=== PATIENT | female | born 1955 | race Two or more races ===

== ENCOUNTER 2020-03-05 16:00 | Emergency (ER) | payer OTHER, SELFPAY ==
--- NOTE | 2020-03-05 17:14 | ED_ITS ---
HPI - Abdominal Pain General Chief Complaint: Abdominal Pain Stated Complaint: abd pain Time Seen by Provider: 03/05/20 17:14 Source: patient Mode of arrival: ambulatory Limitations: language barrier History of Present Illness HPI narrative: Epigastric pain with vomiting started this morning. Prior history for cholecystectomy and hernia repair. patient has had kidney stone surgery. MD elicited complaint: abdominal pain Pertinent past history: gastritis and kidney stones Onset (ago): day(s) Pain Consistency: intermittent Location: epigastric Severity: moderate Associated symptoms: nausea and vomiting Related Data Previous Rx's Medication Instructions Recorded pantoprazole [Protonix] 40 mg PO DAILY #20 tab 03/05/20 Allergies Allergy/AdvReac Type Severity Reaction Status Date / Time egg Allergy Abdominal Verified 03/05/20 17:27 Pain Review of Systems Constitutional: Reports no additional constitutional complaints Eyes: Reports no additional eye complaints Denies dizziness Cardiovascular: Reports no additional cardiovascular complaints Respiratory: Reports as per HPI Gastrointestinal: Reports no additional gastrointestinal complaints Genitourinary: Reports no additional female genitourinary complaints Musculoskeletal: Reports no additional musculoskeletal complaints Skin/Breast: Denies rash Reports system reviewed and no additional complaints, except as documented, Denies dizziness and Denies Sensory deficit (Neuro) Psychiatric: Denies anxiety Physical Exam Vital Signs: Vital Signs: Last Vital Signs Temp 98.2 F 03/05/20 17:18 Pulse 75 03/05/20 17:18 Resp 18 03/05/20 17:18 BP 136/64 03/05/20 17:18 Pulse Ox 98 03/05/20 17:18 Body Mass Index 43.1 Const: Nutritional Appearance: obese Orientation/consciousness: oriented to person and patient oriented x3 Limitations: no limitations HENMT: Head: Yes normal to inspection Ears: external ears normal General nose exam: Normal external nose present Mouth: Normal oral and palatal mucosa present and oropharynx normal Throat: Yes posterior oropharynx normal Eyes: General: appearance normal, both eyes and all related structures Neck: Other: supple Neck: Yes normal visual inspection Chest: Chest palpation & inspection: normal inspection of the chest Resp: Auscultation: clear to auscultation bilaterally Cardio: Jugular venous distension: no JVD Rate: regular rate Rhythm: regular rhythm Heart sounds: S1 normal heart sound present and S2 normal heart sound present GI: Other: obese abdomen, with cholecystectomy scar and hernia repair scar, ventral hernia Palpation (GI): Soft to palpation, nontender and No hepa tosplenomegaly present Auscultation: normal bowel sounds : General: Yes no CVA tenderness Back/Spine/Pelvis: Back: no CVA tenderness Skin: General skin exam: no rashes or lesions noted Neuro: General: oriented to person and patient oriented x3 Cranial nerves: Yes CN's II-XII intact bilaterally Motor exam (neuro): 5/5 motor strength present throughout Sensory Exam: No Sensory deficit (Neuro) Extrem: General: Yes normal to inspection Psych: Appearance: grossly normal Course Course Course Narrative: Patient with negative xray for obstruction, labs and WBC normal. Impression is chronic abominal pain likely gastritis will dc home MDM - Abdominal Pain Differential Diagnosis Differential diagnosis: Likely abdominal pain, gastritis, pancreatitis, peptic ulcer disease and small bowel obstruction Lab Data Result diagrams: 03/05/20 17:38 03/05/20 17:38 Labs: Lab Results 03/05/20 03/05/20 Range/Units 17:38 17:38 WBC 10.3 (4.8-10.8) X10*3/uL RBC 4.10 L (4.20-5.50) X10*6/uL Hgb 12.6 (12.0-16.0) g/dl Hct 38.1 (37-47) % MCV 92.9 (80-98) fL MCH 30.7 (27.0-33.0) pg MCHC 33.1 (31.0-35.0) g/dl RDW 12.2 (11.0-16.0) % Plt Count TNP MPV Not Reportable Immature Gran % (Auto) 0.3 (0.0-0.4) % Neut % (Auto) 70.6 (45-73) % Lymph % (Auto) 21.1 (20-40) % [place] % (Auto) 5.8 (2-11) % Eos % (Auto) 1.5 (0-4) % Baso % (Auto) 0.7 (0-2) % Lymph # (Auto) 2.2 (1.2-4.9) X10*3/uL [place] # (Auto) 0.6 (0.1-1.2) X10*3/uL Eos # (Auto) 0.2 (0.0-0.4) X10*3/uL Baso # (Auto) 0.1 (0.0-0.2) X10*3/uL Abs Immat Gran (auto) 0.03 (0.00-0.03) X10*3/uL Absolute Neuts (auto) 7.3 (2.0-8.3) X10*3/uL Absolute Nucleated RBC 0.000 (0.0-0.012) X10*3/uL Nucleated RBC % (auto) 0.0 (0.0-0.2) /100WBC Smear Tech's Comments VERIFIED Sodium 136 (135-145) mmol/L Potassium 4.8 (3.3-5.1) mmol/l Chloride 96 (96-108) mmol/L Carbon Dioxide 31 H (22-29) mmol/L Anion Gap 14 (12-20) BUN 20 H (9-16) mg/dL Creatinine 1.05 (0.5-1.4) mg/dL Estim Creat Clear Calc 63.1 Estimated GFR 53 Random Glucose 292 H (60-115) mg/dL Calcium 9.3 (8.4-10.2) mg/dL Total Bilirubin 0.3 (0.0-1.0) mg/dL Direct Bilirubin < 0.2 (0.0-0.5) mg/dL AST 17 (5-31) U/L ALT 12 (0-31) U/L Alkaline Phosphatase 119 H (39-117) U/L Total Protein 7.2 (6.5-8.0) g/dL Albumin 3.8 (3.5-5.0) g/dL Lipase 27 (8-78) U/L Discharge Plan Discharge Clinical Impression: Gastritis Qualifiers: Gastritis type: unspecified gastritis Chronicity: chronic Gastritis bleeding: without bleeding Qualified Code(s): K29.50 - Unspecified chronic gastritis without bleeding Patient Disposition: Home, Self-Care Instructions: Gastritis (ED) Prescriptions: New pantoprazole [Protonix] 40 mg tablet,delayed release (DR/EC) 40 mg PO DAILY Qty: 20 RF: 0 Referrals: Jennifer Rico MD [Primary Care Provider] - 2 days [facility] Past Medical History Medical History Brain tumor Cholecystectomy planned Depression Diabetes Gastritis Kidney stone Surgical History H/O hernia repair Social History Social History Advance Directives: No Advance Directives Information Provided: Yes
[2020-03-05 17:18] VITALS: BP 136/64; PULSE 75; RESP 18; TEMP 36.8; O2SAT 98; BMI 43.1
[2020-03-05] MEDS: Pantoprazole Sodium 40 MG/10 ML VIAL IVPUSH (17:38)
[2020-03-05] MEDS: Lidocaine HCl Viscous 2 % 15 ML SOLUTION MUCOUS MEM (17:38)
[2020-03-05] MEDS: PHENobarb/Hyoscy/Atropine/Scop 10 ML ELIXIR PO (17:39)
[2020-03-05] MEDS: ondansetron HCL 4 MG/2 ML VIAL IVPUSH (17:39)
[2020-03-05] MEDS: Magnesium Hydrox/Alum Hydrox 30 ML ORAL.SUSP PO (17:39)
[2020-03-05 17:52] LABS: Eosinophils Absolute Auto 0.2 X10*3/uL (0.0-0.4); Eosinophils Percent Auto 1.5 % (0-4); Imm Gran Abs Auto 0.03 X10*3/uL (0.00-0.03); Imm Gran Pct Auto 0.3 % (0.0-0.4); MANUAL DIFF FLAG SCAN; Monocytes Absolute Auto 0.6 X10*3/uL (0.1-1.2); Monocytes Percent Auto 5.8 % (2-11); Red Cell Distribution Width 12.2 % (11.0-16.0); SCAN SMEAR FLAG 1
[2020-03-05 17:54] LABS: Basophils Absolute Auto 0.1 X10*3/uL (0.0-0.2); Basophils Percent Auto 0.7 % (0-2); Hematocrit 38.1 % (37-47); Hemoglobin 12.6 g/dl (12.0-16.0); Lymphocytes Absolute Auto 2.2 X10*3/uL (1.2-4.9); Lymphocytes Percent Auto 21.1 % (20-40); Mean Corpuscular HGB Conc 33.1 g/dl (31.0-35.0); Mean Corpuscular Hemoglobin 30.7 pg (27.0-33.0); Mean Corpuscular Volume 92.9 fL (80-98); Neutrophils Absolute Auto 7.3 X10*3/uL (2.0-8.3); Neutrophils Percent Auto 70.6 % (45-73); PLT CLUMP 1
[2020-03-05 17:56] LABS: PLT ABN DIST 1
[2020-03-05 18:00] VITALS: BP 136/74; PULSE 70; RESP 17; TEMP 37; O2SAT 99
[2020-03-05 18:10] LABS: White Blood Count 10.3 X10*3/uL (4.8-10.8)
[2020-03-05 18:11] LABS: SLIDE REVIEW VERIFIED
[2020-03-05 18:14] LABS: Alanine Aminotransferase 12 U/L (0-31); Albumin Level 3.8 g/dL (3.5-5.0); Alkaline Phosphatase 119 U/L (39-117); Anion Gap 14 (12-20); Aspartate Amino Transferase 17 U/L (5-31); Bilirubin Direct < 0.2 mg/dL (0.0-0.5); Bilirubin Total 0.3 mg/dL (0.0-1.0); Blood Urea Nitrogen 20 mg/dL (9-16); Calcium 9.3 mg/dL (8.4-10.2); Carbon Dioxide 31 mmol/L (22-29); Chloride 96 mmol/L (96-108); Creatinine Clr Calc Pharmacy 63.1; Estimated Glomerular Filt Rate 53; Glucose Random 292 mg/dL (60-115); Lipase 27 U/L (8-78); Potassium 4.8 mmol/l (3.3-5.1); Sodium 136 mmol/L (135-145); Total Protein 7.2 g/dL (6.5-8.0)
--- NOTE | 2020-03-05 18:35 | XR_ITS ---
EXAMINATION: XR ABDOMEN COMPLETE CLINICAL INDICATION: Bowel obstruction. COMPARISON: CT scan abdomen pelvis 10/13/2018 TECHNIQUE: 2 views of the abdomen. FINDINGS: The bowel gas pattern is normal with no evidence of ileus or obstruction. No abnormal bowel dilatation. Small volume of scattered stool throughout the colon. There are at least 3 rounded calcifications each measuring about 1 cm of the right side of the abdomen consistent with renal stones. The bones are unremarkable. XR/XR abdomen min 2V IMPRESSION: 1. Nonobstructive bowel pattern. 2. Right renal calculi.
== END 2020-03-05 19:49 | disposition home or self-care (01) ==
PROVIDERS: Emergency Provider Emergency Medicine; PCP Internal Medicine
DX: K29.50 Unspecified chronic gastritis without bleeding (principal); R10.13 Epigastric pain
CPT/HCPCS: 36415; 74019; 80048; 80076; 83690; 85025; 96374; 96375; 99283; 99284; J2405

== ENCOUNTER 2020-03-08 00:57 | Emergency (ER) | payer OTHER, SELFPAY ==
--- NOTE | 2020-03-08 | ECG_ITS ---
Test Reason : CHEST PAIN Blood Pressure : / mmHG Vent. Rate : 078 BPM Atrial Rate : 078 BPM P-R Int : 154 ms QRS Dur : 094 ms QT Int : 384 ms P-R-T Axes : 011 -04 024 degrees QTc Int : 437 ms Normal sinus rhythm Minimal voltage criteria for LVH, may be normal variant Borderline ECG When compared with ECG of 10-MAY-2019 19:17, No significant change was found Referred By: Amanda Simmons Electronically Signed By:Eduard Reyes
[2020-03-08 01:10] VITALS: BP 125/76; PULSE 81; RESP 22; TEMP 36.6; O2SAT 99; BMI 43.2
--- NOTE | 2020-03-08 01:16 | ED.CHESTPAIN ---
HPI - Chest Pain General Chief Complaint: Chest Pain Stated Complaint: chest pain,sob Time Seen by Provider: 03/08/20 01:10 Source: patient, old records reviewed and owner professional engineer Mode of arrival: ambulatory Limitations: no limitations History of Present Illness HPI narrative: 64 yo female with hx of gastritis, HTN, HPL, diabetes, s/p hernia and GB repair here with upper abdominal pain n/v radiates up to chest and feels short of breath, has had the abdominal pain x a few days and tonight started with the chest pain x 2 hours, no BM today and did not pass gas, seen here on 03/05 for abdominal pain XR abdomen non obs bowel gas pattern, of note triage was incorrect patient has not had a stroke (this was confirmed with owner professional engineer). MD complaint: chest pain and other (abdominal pain) Onset (ago): day(s) (few days ago abdominal pain, chest pain x 2 hours) Timing of current episode: constant Prior episodes: Yes Onset: during rest Pain location: substernal Pain radiation: none Severity: moderate Quality: aching Relieving factors: nothing Exacerbating factors: nothing Context: recent illness Associated symptoms: nausea, vomiting and other (constipation) Treatment prior to arrival: none Related Data Previous Rx's Medication Instructions Recorded pantoprazole [Protonix] 40 mg PO DAILY #20 tab 03/05/20 dicyclomine 20 mg PO TID PRN #30 tab 03/08/20 ondansetron 4 mg PO Q8H PRN #20 tab 03/08/20 Allergies Allergy/AdvReac Type Severity Reaction Status Date / Time egg Allergy Abdominal Verified 03/08/20 01:14 Pain Review of Systems Review of Systems: Constitutional : No Weight loss, No Fever, No Chills ENT/Mouth : No sore throat, No Rhinorrhea Eyes: No Swelling, No Redness Cardiovascular : pos Chest Pain, pos SOB, NoEdema Respiratory : No Cough, No Sputum, No Wheezing Gastrointestinal : Positive Nausea, Positive Vomiting, no Diarrhea, positive abdominal Pain, No Hematochezia, No Melena, pos constipation Genitourinary : No Dysuria, No Urinary Frequency, No Hematuria, No Urgency Musculoskeletal : No joint pain, No Myalgias, No Joint Swelling Skin : No Skin Lesions, No rash Neuro : No Weakness, No Numbness, No Dizziness, No Headache Psych : No Anxiety/Panic, No Depression Heme/Lymph: No Bruising, No Lymphadenopathy Endocrine : No Polyuria, No Polydipsia All other systems reviewed and are negative. [facility] Past Medical History Attestation statement: The following information was validated with the patient. Source: old records reviewed Medical History (Updated 03/08/20 @ 04:52 by Amanda Simmons DO) Brain tumor Cholecystectomy planned Depression Diabetes Gastritis HTN (hypertension) Kidney stone Surgical History (Updated 03/08/20 @ 01:32 by Amanda Simmons DO) H/O hernia repair History of cholecystectomy Social History Social History (Updated 03/08/20 @ 01:18 by Amanda Simmons DO) Smoking Status: Never smoker Use of substances other than those prescribed or required for medical reasons: No Advance Directives: No Advance Directives Information Provided: No Physical Exam Vital Signs: Vital Signs: Last Vital Signs Temp 97.8 F 03/08/20 03:54 Pulse 78 03/08/20 03:54 Resp 13 03/08/20 03:54 BP 116/54 L 03/08/20 03:54 Pulse Ox 99 03/08/20 03:54 Body Mass Index 43.2 Appearance: Alert. Oriented X3. No acute distress. Eyes: Pupils equal, round and reactive to light. ENT: Pharynx normal. Neck: Normal inspection. Neck supple. CVS: Normal heart rate and rhythm. Pulses normal. Respiratory: No respiratory distress. Breath sounds normal. Abdomen: Soft and distended, hernia noted in midline unable to reduce (the patient states it is always out and not able to be reduced) mild ttp, moderate epigastric ttp, no rebound or guarding Skin: Skin warm and dry. Normal skin color. Normal skin turgor. Extremities: No lower extremity edema. No calf ttp Neuro: Oriented X 3. No motor deficit. No sensory deficit. Course Course Course Narrative: CT scan no bowel obstruction, the patient complains of upper abdominal pain again will try GI cocktail, she is rubbing her hernia site patient feels much better, has been sleeping, EKG nonischemic 2 flat troponins, stable for DC at this time MDM - Chest Pain MDM Narrative Medical decision making narrative: 64 you female with HTN, HPL, DM hx of GB removal and hernia repair has had abdominal pain for a few days with recent ED visits now notes no flatus and constipation, had n/v, tonight 2 hours prior to arrival has chest pain thinks it is radiating from her abdomen, she has no signs of DVT/not pleuritic/no hypoxia to suggest PE, will need troponin x 2, EKG, CXR, CT scan of abdomen to evaluate for bowel obstruction, IV morphine for pain, dispo per results and findings. Lab Data Result diagrams: 03/08/20 01:36 03/08/20 01:36 Labs: Lab Results 03/08/20 03/08/20 03/08/20 Range/Units 01:36 01:36 01:36 WBC 9.8 (4.8-10.8) X10*3/uL RBC 3.95 L (4.20-5.50) X10*6/uL Hgb 12.2 (12.0-16.0) g/dl Hct 35.6 L (37-47) % MCV 90.1 (80-98) fL MCH 30.9 (27.0-33.0) pg MCHC 34.3 (31.0-35.0) g/dl RDW 11.8 (11.0-16.0) % Plt Count Not Reportable MPV Not Reportable Immature Gran % (Auto) 0.5 H (0.0-0.4) % Neut % (Auto) 67.1 (45-73) % Lymph % (Auto) 24.3 (20-40) % Cloud % (Auto) 6.0 (2-11) % Eos % (Auto) 1.5 (0-4) % Baso % (Auto) 0.6 (0-2) % Lymph # (Auto) 2.4 (1.2-4.9) X10*3/uL [place] # (Auto) 0.6 (0.1-1.2) X10*3/uL Eos # (Auto) 0.2 (0.0-0.4) X10*3/uL Baso # (Auto) 0.1 (0.0-0.2) X10*3/uL Abs Immat Gran (auto) 0.05 H (0.00-0.03) X10*3/uL Absolute Neuts (auto) 6.6 (2.0-8.3) X10*3/uL Absolute Nucleated RBC 0.000 (0.0-0.012) X10*3/uL Nucleated RBC % (auto) 0.0 (0.0-0.2) /100WBC Smear Tech's Comments VERIFIED PT 11.3 (10.8-13.0) SEC INR 1.0 (0.9-1.1) APTT 34.0 (24.1-38.0) SEC Sodium 137 (135-145) mmol/L Potassium 4.5 (3.3-5.1) mmol/l Chloride 97 (96-108) mmol/L Carbon Dioxide 30 H (22-29) mmol/L Anion Gap 15 (12-20) BUN 23 H (9-16) mg/dL Creatinine 1.15 (0.5-1.4) mg/dL Estim Creat Clear Calc 57.6 Estimated GFR 48 Random Glucose 290 H (60-115) mg/dL Calcium 9.4 (8.4-10.2) mg/dL Magnesium 1.8 (1.6-2.6) mg/dL Total Bilirubin 0.2 (0.0-1.0) mg/dL Direct Bilirubin < 0.2 (0.0-0.5) mg/dL AST 10 D (5-31) U/L ALT 11 (0-31) U/L Alkaline Phosphatase 107 (39-117) U/L Troponin I High Sens (<3.5-17.0) ng/L B-Natriuretic Peptide (<100) pg/mL Total Protein 6.8 (6.5-8.0) g/dL Albumin 3.5 (3.5-5.0) g/dL Lipase 43 (8-78) U/L COVID-19 ([facility]IE) (Negative) COVID-19 Clin Com 03/08/20 03/08/20 03/08/20 Range/Units 01:36 01:36 04:17 WBC (4.8-10.8) X10*3/uL RBC (4.20-5.50) X10*6/uL Hgb (12.0-16.0) g/dl Hct (37-47) % MCV (80-98) fL MCH (27.0-33.0) pg MCHC (31.0-35.0) g/dl RDW (11.0-16.0) % Plt Count MPV Immature Gran % (Auto) (0.0-0.4) % Neut % (Auto) (45-73) % Lymph % (Auto) (20-40) % Cloud % (Auto) (2-11) % Eos % (Auto) (0-4) % Baso % (Auto) (0-2) % Lymph # (Auto) (1.2-4.9) X10*3/uL Cloud # (Auto) (0.1-1.2) X10*3/uL Eos # (Auto) (0.0-0.4) X10*3/uL Baso # (Auto) (0.0-0.2) X10*3/uL Abs Immat Gran (auto) (0.00-0.03) X10*3/uL Absolute Neuts (auto) (2.0-8.3) X10*3/uL Absolute Nucleated RBC (0.0-0.012) X10*3/uL Nucleated RBC % (auto) (0.0-0.2) /100WBC Smear Tech's Comments PT (10.8-13.0) SEC INR (0.9-1.1) APTT (24.1-38.0) SEC Sodium (135-145) mmol/L Potassium (3.3-5.1) mmol/l Chloride (96-108) mmol/L Carbon Dioxide (22-29) mmol/L Anion Gap (12-20) BUN (9-16) mg/dL Creatinine (0.5-1.4) mg/dL Estim Creat Clear Calc Estimated GFR Random Glucose (60-115) mg/dL Calcium (8.4-10.2) mg/dL Magnesium (1.6-2.6) mg/dL Total Bilirubin (0.0-1.0) mg/dL Direct Bilirubin (0.0-0.5) mg/dL AST (5-31) U/L ALT (0-31) U/L Alkaline Phosphatase (39-117) U/L Troponin I High Sens 6.6 6.9 (<3.5-17.0) ng/L B-Natriuretic Peptide 27 (<100) pg/mL Total Protein (6.5-8.0) g/dL Albumin (3.5-5.0) g/dL Lipase (8-78) U/L COVID-19 ([facility]) Negative (Negative) COVID-19 Clin Com See Note ECG Data ECG #1: Attestation: I personally reviewed and interpreted this ECG as follows: ECG interpretation date: 03/08/20 ECG interpretation time: 01:16 Interpretation: Rate: 78 Rhythm: NSR Ulysses: left, LVH Normal P waves. Normal COCO. Normal QRS complex. ST T wave : normal, no MARLEN qTC: normal prior studies: no acute ischemia The study has been interpreted contemporaneously by me. . Discharge Plan Discharge Clinical Impression: Atypical chest pain Ventral hernia Qualifiers: Obstruction and gangrene presence: without obstruction or gangrene Qualified Code(s): K43.9 - Ventral hernia without obstruction or gangrene Patient Disposition: Home, Self-Care Instructions: Chest Pain (ED), Ventral Hernia (ED) Additional Instructions: return to ED for any worsening symptoms or concerns Prescriptions: New ondansetron 4 mg tablet,disintegrating 4 mg PO Q8H PRN (Reason: nausea and vomiting) Qty: 20 RF: 0 dicyclomine 20 mg tablet 20 mg PO TID PRN (Reason: abdominal discomfort) Qty: 30 RF: 0 No Action pantoprazole [Protonix] 40 mg tablet,delayed release (DR/EC) 40 mg PO DAILY Qty: 20 RF: 0 Referrals: Jennifer Rico MD [Primary Care Provider] - 2 days Print Language: [place]
--- NOTE | 2020-03-08 01:20 | XR_ITS ---
EXAMINATION: XR CHEST CLINICAL INFORMATION: Chest pain COMPARISON: 02/15/2019 TECHNIQUE: Frontal view of the chest was obtained. FINDINGS: Lung volumes are symmetric. No focal consolidation is seen. No evidence of pneumothorax, pleural effusion, or pulmonary edema. The cardiomediastinal contour is unremarkable. No acute osseous findings are seen. XR/XR chest 1V IMPRESSION: No acute cardiopulmonary findings.
--- NOTE | 2020-03-08 01:27 | CT_ITS ---
EXAMINATION: CT ABDOMEN AND PELVIS WITH CONTRAST CLINICAL INFORMATION: Pain, evaluate for bowel obstruction COMPARISON: 10/13/2018 TECHNIQUE: Multidetector volumetric images were obtained from the superior aspect of the liver through the pubic symphysis following administration 85 mL of Omnipaque 350 intravenous contrast. Sagittal and coronal reformatted images were obtained on the technologist's workstation. Oral contrast: No This CT examination was performed using dose optimization techniques as appropriate, variously including the following: *Automated exposure control *Adjustment of mA and/or kV according to patient size (this includes techniques or standardized protocols for targeted exams where dose is matched to indication/reason for exam; i.e. extremities or head) *Use of iterative reconstruction technique DLP: 953 mGy-cm FINDINGS: LUNG BASES: Stable 4 mm right lung nodule, statistically likely benign. LIVER, GALLBLADDER, AND BILIARY TREE: The liver is normal in size, shape, and attenuation. No focal hepatic lesion or biliary ductal dilatation is present. Patient is status post cholecystectomy. PANCREAS: Unremarkable. SPLEEN: Unremarkable. ADRENAL GLANDS: Unremarkable. KIDNEYS AND URETERS: No hydronephrosis or obstructing calculus bilaterally. There are several scattered calculi throughout the right kidney measuring up to approximately 1.3 cm. Tiny calculus noted in the mid left kidney. Renal cortical thinning is noted, right-sided greater than left. BLADDER: Unremarkable. GASTROINTESTINAL TRACT: The small and large bowel are unremarkable. The appendix is unremarkable. No free fluid or free air is seen. ABDOMINAL WALL: Redemonstrated ventral hernia containing a short segment of transverse colon. LYMPH NODES: Prominent right external iliac lymph node is again redemonstrated measuring approximately 1.4 cm in short axis dimension, similar to prior. Mildly enlarged left inguinal lymph nodes also appear similar to prior. VASCULAR: Unremarkable. PELVIC VISCERA: Unremarkable. OSSEOUS STRUCTURES: Degenerative changes are noted in the spine. CT/CT abdomen pelvis w con IMPRESSION: 1. No evidence of bowel obstruction. 2. Redemonstrated ventral hernia containing a short segment of transverse colon. 3. Nephrolithiasis, right kidney greater than left, without obstructing calculus.
[2020-03-08 01:46] VITALS: RESP 26
[2020-03-08] MEDS: ondansetron HCL 4 MG/2 ML VIAL IVPUSH (01:46)
[2020-03-08] MEDS: Morphine Sulfate 4 MG/ML CARTRIDGE IVPUSH (01:46)
[2020-03-08 01:50] LABS: Prothrombin Time 11.3 SEC (10.8-13.0)
[2020-03-08 01:53] VITALS: BP 125/76; PULSE 81; RESP 26; TEMP 36.6; O2SAT 99
[2020-03-08 01:55] LABS: COVID-19 Test Negative (Negative)
[2020-03-08 02:03] LABS: Basophils Absolute Auto 0.1 X10*3/uL (0.0-0.2); Basophils Percent Auto 0.6 % (0-2); Eosinophils Absolute Auto 0.2 X10*3/uL (0.0-0.4); Eosinophils Percent Auto 1.5 % (0-4); Hematocrit 35.6 % (37-47); Hemoglobin 12.2 g/dl (12.0-16.0); Imm Gran Abs Auto 0.05 X10*3/uL (0.00-0.03); Imm Gran Pct Auto 0.5 % (0.0-0.4); Lymphocytes Absolute Auto 2.4 X10*3/uL (1.2-4.9); Lymphocytes Percent Auto 24.3 % (20-40); MANUAL DIFF FLAG SCAN; Mean Corpuscular HGB Conc 34.3 g/dl (31.0-35.0); Mean Corpuscular Hemoglobin 30.9 pg (27.0-33.0); Mean Corpuscular Volume 90.1 fL (80-98); Monocytes Absolute Auto 0.6 X10*3/uL (0.1-1.2); Neutrophils Absolute Auto 6.6 X10*3/uL (2.0-8.3); Neutrophils Percent Auto 67.1 % (45-73); PLT CLUMP 1; Red Blood Count 3.95 X10*6/uL (4.20-5.50); Red Cell Distribution Width 11.8 % (11.0-16.0); SCAN SMEAR FLAG 1
[2020-03-08 02:04] LABS: White Blood Count 9.8 X10*3/uL (4.8-10.8)
[2020-03-08 02:06] LABS: SLIDE REVIEW VERIFIED
[2020-03-08 02:08] LABS: B Type Natriuretic Peptide 27 pg/mL (<100); Troponin-I High Sensitivity 6.6 ng/L (<3.5-17.0)
[2020-03-08 02:16] LABS: Alanine Aminotransferase 11 U/L (0-31); Albumin Level 3.5 g/dL (3.5-5.0); Alkaline Phosphatase 107 U/L (39-117); Anion Gap 15 (12-20); Aspartate Amino Transferase 10 U/L (5-31); Bilirubin Direct < 0.2 mg/dL (0.0-0.5); Bilirubin Total 0.2 mg/dL (0.0-1.0); Blood Urea Nitrogen 23 mg/dL (9-16); Calcium 9.4 mg/dL (8.4-10.2); Carbon Dioxide 30 mmol/L (22-29); Chloride 97 mmol/L (96-108); Creatinine Clr Calc Pharmacy 57.6; Estimated Glomerular Filt Rate 48; Glucose Random 290 mg/dL (60-115); Lipase 43 U/L (8-78); Magnesium 1.8 mg/dL (1.6-2.6); Potassium 4.5 mmol/l (3.3-5.1); Sodium 137 mmol/L (135-145); Total Protein 6.8 g/dL (6.5-8.0)
[2020-03-08] MEDS: iohexoL 350 MG/ML 100 ML INFUS..BTL 85 ML IV (02:36)
[2020-03-08] MEDS: Magnesium Hydrox/Alum Hydrox 30 ML ORAL.SUSP PO (03:16)
[2020-03-08] MEDS: Lidocaine HCl Viscous 2 % 15 ML SOLUTION MUCOUS MEM (03:16)
[2020-03-08 03:54] VITALS: BP 116/54; PULSE 78; RESP 13; TEMP 36.6; O2SAT 99
[2020-03-08 04:47] LABS: Troponin-I High Sensitivity 6.9 ng/L (<3.5-17.0)
== END 2020-03-08 05:18 | disposition home or self-care (01) ==
PROVIDERS: Emergency Provider Emergency Medicine; PCP Internal Medicine
DX: K43.9 Ventral hernia without obstruction or gangrene (principal); R07.89 Other chest pain; R06.02 Shortness of breath; I10 Essential (primary) hypertension; Z79.899 Other long term (current) drug therapy; Z20.822 Contact with and (suspected) exposure to COVID-19
CPT/HCPCS: 36415; 71045; 74177; 80048; 80076; 83690; 83735; 83880; 84484; 85025; 85610; 85730; 87635; 93005; 96374; 96375; 99284; 99285; J2270; J2405; Q9967

== ENCOUNTER 2020-03-13 11:35 | Outpatient (REF) | payer OTHER, SELFPAY | END 2020-03-13 11:36 | disposition home or self-care (01) | LOC: HO.LAB 11:35 | PROVIDERS: Visit Provider Internal Medicine | DX: Z20.822 Contact with and (suspected) exposure to COVID-19 (principal) | CPT/HCPCS: 36415; C9803; U0003 ==

== ENCOUNTER 2020-03-20 20:48 | Emergency (ER) | payer OTHER, SELFPAY ==
--- NOTE | ~2020-03-20 | XR_ITS ---
EXAMINATION: CHEST 1 VIEW CLINICAL INFORMATION: Cough. COMPARISON: March 08, 2020. TECHNIQUE: An AP view of the chest is provided. FINDINGS: The cardiac silhouette is not enlarged. The mediastinal and hilar contours are unremarkable. There are neither pleural effusions nor pneumothoraces. There are no consolidations. The osseous structures are stable. XR/XR chest 1V IMPRESSION: No evidence for acute disease.
[2020-03-20 21:02] VITALS: BP 149/73; PULSE 90; RESP 18; TEMP 36.9; O2SAT 97; BMI 43.1
--- NOTE | 2020-03-20 21:33 | ED.GENADULT ---
HPI - General Adult General Chief complaint: General Medical Stated complaint: covid symptoms Time Seen by Provider: 03/20/20 21:24 Source: patient and aerial photograph interpreter Mode of arrival: ambulatory Limitations: no limitations History of Present Illness HPI narrative: 64-year-old female presented today with number productive cough, nausea, vomiting, patient had history of exposure to sick contact with COVID at home, patient otherwise declined shortness of breath, no chest pain, no abdominal pain. Patient is concerned because she is diabetic. Patient had a recent negative COVID testing. Related Data Previous Rx's Medication Instructions Recorded pantoprazole [Protonix] 40 mg PO DAILY #20 tab 03/05/20 dicyclomine 20 mg PO TID PRN #30 tab 03/08/20 ondansetron 4 mg PO Q8H PRN #20 tab 03/08/20 Allergies Allergy/AdvReac Type Severity Reaction Status Date / Time egg Allergy Mild Abdominal Verified 03/20/20 21:01 Pain Review of Systems Review of Systems: All other systems are reviewed and are negative Constitutional: Reports as per HPI and Reports no additional constitutional complaints Eyes: Reports as per HPI and Reports no additional eye complaints Reports system reviewed and no additional complaints, except as documented Cardiovascular: Reports as per HPI and Reports no additional cardiovascular complaints Respiratory: Reports as per HPI and Reports no additional respiratory complaints Gastrointestinal: Reports as per HPI and Reports no additional gastrointestinal complaints Genitourinary: Reports no additional female genitourinary complaints Musculoskeletal: Reports no additional musculoskeletal complaints Skin/Breast: Reports system reviewed and no additional complaints, except as docu Psychiatric: Reports no additional psychiatric complaints Endocrine: Reports no additional endocrine complaints Hematologic/Lymphatic: Reports no additional hematologic/lymphatic complaints Allergic/Immunologic: Reports no additional allergic/immunologic complaints Reports system reviewed and no additional complaints, except as documented and Reports Abnormal speech present [facility] Past Medical History Medical History Brain tumor Cholecystectomy planned Depression Diabetes Gastritis HTN (hypertension) Kidney stone Surgical History H/O hernia repair History of cholecystectomy Social History Social History Alcohol intake: never Smoking Status: Never smoker Smoked in Last 30 Days: No Use of substances other than those prescribed or required for medical reasons: No Advance Directives: No Advance Directives Information Provided: Yes Physical Exam Vital Signs: Vital Signs: Last Vital Signs Temp 98.4 F 03/20/20 21:02 Pulse 90 03/20/20 21:02 Resp 18 03/20/20 21:02 BP 149/73 H 03/20/20 21:02 Pulse Ox 97 03/20/20 21:02 Body Mass Index 43.1 Vital signs have been reviewed as normal and appeared to be correct. Blood pressure in the high range. Heart rate normal. Respiration rate normal. Temperature normal. Oxygen saturation normal. Appearance: Alert. Oriented X3. No acute distress. Head: Normal external exam. Normocephalic. Atraumatic. No Horton signs noted. No raccoon eyes noted Eyes: PERRLA. EOMI. Conjunctiva and sclera normal. Eyelids normal. ENT: EAC normal. TM's Normal. Pharynx normal. Uvula midline. Moist mucous membranes. No trismus noted. No drooling noted. No muffled voice noted. Neck: Normal inspection. Neck supple. FROM. No adenopathy. Thyroid Normal. No meningeal signs. No neck mass noted. CVS: Normal heart rate and rhythm. Heart sound normal. No murmurs noted. Pulses normal throughout. Respiratory: No respiratory distress. Painless inspiration. Breath sounds normal. No wheezes/rales/rhonchi noted. Chest nontender. No accessory muscle usage noted or decreased air movement noted. Abdomen: Soft and nontender. Bowel sounds normal in all 4 quadrants. No distention noted. No organomegaly noted. No visible injury noted. Back: No CVA tenderness. Full range of motion noted. Skin: Skin warm and dry. Normal skin color. Normal skin turgor. No rashes/lesions/lacerations noted. Extremities: No lower extremity edema. Extremities exhibit normal range of motion. Extremities nontender. Neuro: Oriented X 3. No motor deficit. No sensory deficit. Reflexes normal. Course Course Course Narrative: Assessment and plan. 64-year-old female presented with viral syndrome, patient had positive COVID testing today, unremarkable chest x-ray, patient has been satting 97%, patient declined symptoms of shortness of breath. Patient was instructed to go home self quarantine for 2 weeks, using mask at all times, with frequent hand washing. Medical Decision Making Lab Data Lab results reviewed: Yes I reviewed the patient's lab results. Labs: Lab Results 03/20/20 Range/Units 21:41 COVID-19 ([facility]) Positive A (Negative) COVID-19 Clin Com See Note Imaging Data Chest x-ray: Radiologist's impression: No evidence of acute disease. Discharge Plan Discharge Clinical Impression: COVID-19 virus infection Patient Disposition: Home, Self-Care Instructions: COVID-19 (Coronavirus Disease 2019) (ED) Prescriptions: No Action pantoprazole [Protonix] 40 mg tablet,delayed release (DR/EC) 40 mg PO DAILY Qty: 20 RF: 0 ondansetron 4 mg tablet,disintegrating 4 mg PO Q8H PRN (Reason: nausea and vomiting) Qty: 20 RF: 0 dicyclomine 20 mg tablet 20 mg PO TID PRN (Reason: abdominal discomfort) Qty: 30 RF: 0 Referrals: Physician,Unknown [Primary Care Provider] - 2 weeks
[2020-03-20 21:55] LABS: COVID-19 Test Positive (Negative)
== END 2020-03-20 22:34 | disposition home or self-care (01) ==
PROVIDERS: Emergency Provider Emergency Medicine
DX: U07.1 COVID-19 (principal); R50.9 Fever, unspecified; Z79.899 Other long term (current) drug therapy
CPT/HCPCS: 36415; 71045; 87635; 99283

== ENCOUNTER 2020-03-23 06:56 | Emergency (ER) | payer OTHER, SELFPAY ==
--- NOTE | ~2020-03-23 | XR_ITS ---
EXAMINATION: XR CHEST CLINICAL INFORMATION: Weakness COMPARISON: Chest 03/20/2020 TECHNIQUE: Frontal view of the chest was obtained. FINDINGS: No significant abnormality is noted involving the heart, lungs, mediastinum, bony thorax or soft tissues. XR/XR chest 1V IMPRESSION: Unremarkable chest examination.
--- NOTE | ~2020-03-23 | CT_ITS ---
EXAMINATION: CT ABDOMEN AND PELVIS WITHOUT CONTRAST CLINICAL INFORMATION: Abdominal hernia. Pain. COMPARISON: CT abdomen and pelvis 03/08/2020 TECHNIQUE: Multidetector volumetric imaging was performed from the superior aspect of the liver through the pubic symphysis. Sagittal and coronal reformatted images were obtained on the technologist's workstation. This CT examination was performed using dose optimization techniques as appropriate, variously including the following: *Automated exposure control *Adjustment of mA and/or kV according to patient size (this includes techniques or standardized protocols for targeted exams where dose is matched to indication/reason for exam; i.e. extremities or head) *Use of iterative reconstruction technique DLP: 880 mGy-cm FINDINGS: LUNG BASES: Minimal atelectatic changes seen in left lung base. There is a 3 minute nodule right middle lobe image 7/3, stable. Subpleural a 3 mm ill-defined density measuring 5 mm image 11/3, stable. The heart size is normal.. LIVER, GALLBLADDER, AND BILIARY TREE: The liver is normal in size, shape, and attenuation. No focal hepatic lesion or biliary ductal dilatation is present. The gallbladder is not visualized. PANCREAS: Unremarkable. SPLEEN: Unremarkable. ADRENAL GLANDS: Unremarkable. KIDNEYS AND URETERS: The kidneys are normal size, shape with diffuse cortical thinning. There are bilateral radiopaque renal calculi. A 9 mm, 8mm and 6 moderate calculi mid pole and a 1.0 cm radiopaque calculi lower pole right kidney. There is mild fullness of L4 over pole right kidney pelvis no evidence of hydronephrosis. There there are two 2 mm radiopaque calculi mid pole left kidney without caliectasis or hydronephrosis. The cortical thickness is better preserved and the left kidney. There is no hydronephrosis. Mild bilateral perinephric stranding is seen. BLADDER: Unremarkable. GASTROINTESTINAL TRACT: The colon is nondistended and appears unremarkable. Minimal scattered diverticuli seen in the colon Appendix is normal caliber. The small bowel loops are normal caliber. The stomach is nondistended. No inflammatory process seen in the abdomen. ABDOMINAL WALL: There is upper/ mid midline abdominal wall hernia with loop of transverse colon within but no edema, inflammatory process or obstruction seen. The neck is approximately 3.2 cm wide. Nonspecific minimal stranding is seen in the abdominal wall adjacent to the hernia. LYMPH NODES: There are bilateral extra iliac lymph nodes largest on the left measuring 1.3 cm and largest in the right side measuring 2.5 cm and coronal image 69/5 there are a few benign lymph nodes with central lucency seen along higher bilateral external iliac vessels on axial image 75/3 measuring approximately 2.4 cm on axial image 74/3.. VASCULAR: Unremarkable. PELVIC VISCERA: The uterus is anteverted and appears unremarkable. No free fluid or pelvic mass seen. A few scattered phleboliths are seen in the pelvis. OSSEOUS STRUCTURES: Unremarkable. CT/CT abdomen pelvis wo con IMPRESSION: Bilateral radiopaque renal calculi with largest calculi in the right kidney. No caliectasis or hydronephrosis seen within nonspecific mild prominence of upper pole right kidney pelvis. There is mild thinning of mid and lower pole right kidney cortex. Upper/mid midline abdominal wall hernia with a loop of transverse colon within but no obstruction seen. Stable right middle lobe nodule and right lower lobe pleural-based ill-defined density. Nonspecific bilateral external iliac lymph nodes. There is stable compared to previous study.
--- NOTE | 2020-03-23 07:02 | ED_ITS ---
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 Mode of arrival: EMS Limitations: no limitations History of Present Illness HPI narrative: 65 yo female with HPL, HTN, gastritis, s/p large ventral hernia here with c/o chronic abdominal pain nausea has had BMs and gas, dx with COVID overall doesn't feel well MD elicited complaint: abdominal pain Pertinent past history: gastritis and other (chronic abdominal pain known hernia) Onset (ago): day(s) (last night) Pain Consistency: constant Location: periumbilical Severity: similar to previous episodes Quality: aching and fullness Radiation: none Migration to: no migration Exacerbating factors: movement Relieving factors: nothing Associated symptoms: nausea, chills and other (myalgias) Related Data Previous Rx's Medication Instructions Recorded pantoprazole [Protonix] 40 mg PO DAILY #20 tab 03/05/20 dicyclomine 20 mg PO TID PRN #30 tab 03/08/20 ondansetron 4 mg PO Q8H PRN #20 tab 03/08/20 cefuroxime axetil 250 mg PO BID 7 Days #14 tab 03/23/20 hydrocodone-acetaminophen 1 tab PO Q6H PRN #12 tab 03/23/20 ondansetron 4 mg PO Q8H PRN #20 tab 03/23/20 Allergies Allergy/AdvReac Type Severity Reaction Status Date / Time egg Allergy Mild Abdominal Verified 03/20/20 21:01 Pain Review of Systems Review of Systems Constitutional : No Weight loss, No Fever, pos Chills ENT/Mouth : No sore throat, No Rhinorrhea Eyes: No Swelling, No Redness Cardiovascular : No Chest Pain, No SOB, NoEdema Respiratory : No Cough, No Sputum, No Wheezing Gastrointestinal : Positive Nausea, no Vomiting, no Diarrhea, positive abdominal Pain, No Hematochezia, No Melena Genitourinary : No Dysuria, No Urinary Frequency, No Hematuria, No Urgency Musculoskeletal : No joint pain, pos Myalgias, No Joint Swelling Skin : No Skin Lesions, No rash Neuro :pos Weakness, No Numbness, No Dizziness, No Headache Psych : No Anxiety/Panic, No Depression Heme/Lymph: No Bruising, No Lymphadenopathy Endocrine : No Polyuria, No Polydipsia All other systems reviewed and are negative. Physical Exam Vital Signs: Vital Signs: Last Vital Signs Temp 98.9 F 03/23/20 10:08 Pulse 84 03/23/20 10:08 Resp 17 03/23/20 10:08 BP 125/66 03/23/20 10:08 Pulse Ox 93 03/23/20 10:08 Body Mass Index 43.1 Appearance: Alert. Oriented X3. No acute distress. Eyes: Pupils equal, round and reactive to light. ENT: Pharynx normal. Neck: Normal inspection. Neck supple. CVS: Normal heart rate and rhythm. Pulses normal. Respiratory: No respiratory distress. Breath sounds normal. Abdomen: Soft and moderate ttp no rebound or guarding, ventral hernia in midline no discoloration, it is distended but appears very similar to her most recent visit Skin: Skin warm and dry. Normal skin color. Normal skin turgor. Extremities: No lower extremity edema. No calf ttp Neuro: Oriented X 3. No motor deficit. No sensory deficit. Course Course Course Narrative: patient feels much better, CT scan unchanged, walking O2 sat 95% will start on antibitiocs for UA and refer home MDM - Abdominal Pain MDM Narrative Medical decision making narrative: 64 yo female with known ventral hernia chronic abdominal pain dx with COVID on Monday here overall not feeling well but states increased abd pain, body aches, nausea, chills - she is having BMs and passing gas, will need labs, CT scan to evaluate for obstruction, IV morphine, GI cocktail which helped her significantly last times, no chest pain or trouble breathing, no hypoxia Lab Data Result diagrams: 03/23/20 07:25 03/23/20 07:26 Labs: Lab Results 03/23/20 03/23/20 03/23/20 Range/Units 07:25 07:25 07:26 WBC 8.8 (4.8-10.8) X10*3/uL RBC 3.92 L (4.20-5.50) X10*6/uL Hgb 12.0 (12.0-16.0) g/dl Hct 36.0 L (37-47) % MCV 91.8 (80-98) fL MCH 30.6 (27.0-33.0) pg MCHC 33.3 (31.0-35.0) g/dl RDW 12.4 (11.0-16.0) % Plt Count TNP MPV 13.7 H (9.4-12.3) fL Immature Gran % (Auto) 0.7 H (0.0-0.4) % Neut % (Auto) 81.1 H (45-73) % Lymph % (Auto) 10.9 L (20-40) % Towner % (Auto) 6.9 (2-11) % Eos % (Auto) 0.1 (0-4) % Baso % (Auto) 0.3 (0-2) % Lymph # (Auto) 1.0 L (1.2-4.9) X10*3/uL Towner # (Auto) 0.6 (0.1-1.2) X10*3/uL Eos # (Auto) 0.0 (0.0-0.4) X10*3/uL Baso # (Auto) 0.0 (0.0-0.2) X10*3/uL Abs Immat Gran (auto) 0.06 H (0.00-0.03) X10*3/uL Absolute Neuts (auto) 7.2 (2.0-8.3) X10*3/uL Absolute Nucleated RBC 0.000 (0.0-0.012) X10*3/uL Nucleated RBC % (auto) 0.0 (0.0-0.2) /100WBC Smear Tech's Comments VERIFIED Hold Blue Top SEE NOTE Sodium 134 L (135-145) mmol/L Potassium 4.8 (3.3-5.1) mmol/L Chloride 95 L (96-108) mmol/L Carbon Dioxide 29 (22-29) mmol/L Anion Gap 15 (12-20) BUN 17 H (9-16) mg/dL Creatinine 1.28 (0.5-1.4) mg/dL Estim Creat Clear Calc 51.7 Estimated GFR 42 Random Glucose 309 H (60-115) mg/dL Lactic Acid (0.5-2.0) mmol/L Calcium 8.5 D (8.4-10.2) mg/dL Magnesium 1.5 L (1.6-2.6) mg/dL Total Bilirubin 0.3 (0.0-1.0) mg/dL Direct Bilirubin < 0.2 (0.0-0.5) mg/dL AST 19 D (5-31) U/L ALT 13 (0-31) U/L Alkaline Phosphatase 102 (39-117) U/L Total Protein 7.0 (6.5-8.0) g/dL Albumin 3.6 (3.5-5.0) g/dL Lipase (8-78) U/L Urine Color Urine Appearance Urine pH (5.0-8.0) Ur Specific [place] (1.005-1.025) Urine Protein (NEG-TRACE) MG/DL Urine Glucose (UA) (NEG) MG/DL Urine Ketones (NEG) MG/DL Urine Blood (NEG) Urine Nitrite (NEG) Ur Leukocyte Esterase (NEG) Urine RBC Urine WBC Ur Squamous Epith Cells Urine Bacteria 03/23/20 03/23/20 03/23/20 Range/Units 07:26 07:26 11:06 WBC (4.8-10.8) X10*3/uL RBC (4.20-5.50) X10*6/uL Hgb (12.0-16.0) g/dl Hct (37-47) % MCV (80-98) fL MCH (27.0-33.0) pg MCHC (31.0-35.0) g/dl RDW (11.0-16.0) % Plt Count MPV (9.4-12.3) fL Immature Gran % (Auto) (0.0-0.4) % Neut % (Auto) (45-73) % Lymph % (Auto) (20-40) % Towner % (Auto) (2-11) % Eos % (Auto) (0-4) % Baso % (Auto) (0-2) % Lymph # (Auto) (1.2-4.9) X10*3/uL Towner # (Auto) (0.1-1.2) X10*3/uL Eos # (Auto) (0.0-0.4) X10*3/uL Baso # (Auto) (0.0-0.2) X10*3/uL Abs Immat Gran (auto) (0.00-0.03) X10*3/uL Absolute Neuts (auto) (2.0-8.3) X10*3/uL Absolute Nucleated RBC (0.0-0.012) X10*3/uL Nucleated RBC % (auto) (0.0-0.2) /100WBC Smear Tech's Comments Hold Blue Top Sodium (135-145) mmol/L Potassium (3.3-5.1) mmol/L Chloride (96-108) mmol/L Carbon Dioxide (22-29) mmol/L Anion Gap (12-20) BUN (9-16) mg/dL Creatinine (0.5-1.4) mg/dL Estim Creat Clear Calc Estimated GFR Random Glucose (60-115) mg/dL Lactic Acid 1.3 (0.5-2.0) mmol/L Calcium (8.4-10.2) mg/dL Magnesium (1.6-2.6) mg/dL Total Bilirubin (0.0-1.0) mg/dL Direct Bilirubin (0.0-0.5) mg/dL AST (5-31) U/L ALT (0-31) U/L Alkaline Phosphatase (39-117) U/L Total Protein (6.5-8.0) g/dL Albumin (3.5-5.0) g/dL Lipase 46 (8-78) U/L Urine Color YELLOW Urine Appearance CLEAR Urine pH 6.0 (5.0-8.0) Ur Specific [place] >= 1.030 H (1.005-1.025) Urine Protein 3+ H (NEG-TRACE) MG/DL Urine Glucose (UA) NEG (NEG) MG/DL Urine Ketones NEG (NEG) MG/DL Urine Blood 1+ H (NEG) Urine Nitrite NEG (NEG) Ur Leukocyte Esterase 1+ H (NEG) Urine RBC TNP Urine WBC TNP Ur Squamous Epith Cells TNP Urine Bacteria TNP ECG Data Attestation: I personally reviewed and interpreted this ECG as follows: ECG interpretation date: 03/23/20 ECG interpretation time: 07:24 Interpretation: Rate: 104 Rhythm: sinus tach with PACs [place]: normal Normal P waves. Normal COCO. Normal QRS complex. ST T wave : normal no MARLEN qTC: normal prior studies: no acute ischemia The study has been interpreted contemporaneously by me. . Discharge Plan Discharge Clinical Impression: COVID-19, Hypomagnesemia Ventral hernia Qualifiers: Obstruction and gangrene presence: without obstruction or gangrene Qualified Code(s): K43.9 - Ventral hernia without obstruction or gangrene UTI (urinary tract infection) Qualifiers: Urinary tract infection type: site unspecified Hematuria presence: without hematuria Qualified Code(s): N39.0 - Urinary tract infection, site not specified Patient Disposition: Home, Self-Care Instructions: Urinary Tract Infection in Women (ED), Hypomagnesemia (ED), Ventral Hernia (ED), COVID-19 (Coronavirus Disease 2019) (ED) Additional Instructions: return to ED for any worsening symptoms or concerns Prescriptions: New cefuroxime axetil 250 mg tablet 250 mg PO BID 7 Days Qty: 14 RF: 0 hydrocodone-acetaminophen 5-325 mg tablet 1 tab PO Q6H PRN (Reason: pain) Qty: 12 RF: 0 ondansetron 4 mg tablet,disintegrating 4 mg PO Q8H PRN (Reason: nausea and vomiting) Qty: 20 RF: 0 No Action pantoprazole [Protonix] 40 mg tablet,delayed release (DR/EC) 40 mg PO DAILY Qty: 20 RF: 0 ondansetron 4 mg tablet,disintegrating 4 mg PO Q8H PRN (Reason: nausea and vomiting) Qty: 20 RF: 0 dicyclomine 20 mg tablet 20 mg PO TID PRN (Reason: abdominal discomfort) Qty: 30 RF: 0 Referrals: Physician,Unknown [Primary Care Provider] - 2 days (if not better) Print Language: [place] [facility] Past Medical History Attestation statement: The following information was validated with the patient. Medical History Brain tumor Cholecystectomy planned Depression Diabetes Gastritis HTN (hypertension) Kidney stone Surgical History H/O hernia repair History of cholecystectomy Social History Social History Alcohol intake: never Smoking Status: Never smoker Use of substances other than those prescribed or required for medical reasons: No Advance Directives: No Advance Directives Information Provided: No
--- NOTE | 2020-03-23 07:02 | ECG_ITS ---
Test Reason : BELLY PAIN Blood Pressure : / mmHG Vent. Rate : 104 BPM Atrial Rate : 104 BPM P-R Int : 142 ms QRS Dur : 092 ms QT Int : 326 ms P-R-T Axes : 048 -02 037 degrees QTc Int : 428 ms Sinus tachycardia with Premature atrial complexes Otherwise normal ECG When compared with ECG of 08-MAR-2020 01:05, Premature atrial complexes are now Present Referred By: Amanda Simmons Electronically Signed By:HAJA FOX
[2020-03-23 07:05] VITALS: BP 131/49; BP 136/80; PULSE 105; PULSE 106; RESP 20; TEMP 38.6; O2SAT 95; BMI 43.1
[2020-03-23] MEDS: Magnesium Hydrox/Alum Hydrox 30 ML ORAL.SUSP PO (07:42)
[2020-03-23] MEDS: Lidocaine HCl Viscous 2 % 15 ML SOLUTION MUCOUS MEM (07:42)
[2020-03-23] MEDS: Acetaminophen 325 MG TABLET 650 MG PO (07:42)
[2020-03-23] MEDS: ondansetron HCL 4 MG/2 ML VIAL IVPUSH (07:42)
[2020-03-23] MEDS: Morphine Sulfate 4 MG/ML CARTRIDGE IVPUSH (07:42)
[2020-03-23 07:46] LABS: Basophils Percent Auto 0.3 % (0-2); Lymphocytes Percent Auto 10.9 % (20-40); MANUAL DIFF FLAG SCAN; Neutrophils Absolute Auto 7.2 X10*3/uL (2.0-8.3); SCAN SMEAR FLAG 1
[2020-03-23 07:47] LABS: Eosinophils Percent Auto 0.1 % (0-4); Imm Gran Abs Auto 0.06 X10*3/uL (0.00-0.03); Imm Gran Pct Auto 0.7 % (0.0-0.4); Mean Corpuscular HGB Conc 33.3 g/dl (31.0-35.0); Mean Corpuscular Hemoglobin 30.6 pg (27.0-33.0); Mean Corpuscular Volume 91.8 fL (80-98); Mean Platelet Volume 13.7 fL (9.4-12.3); Monocytes Absolute Auto 0.6 X10*3/uL (0.1-1.2); Monocytes Percent Auto 6.9 % (2-11); Neutrophils Percent Auto 81.1 % (45-73); PLT CLUMP 1; Red Blood Count 3.92 X10*6/uL (4.20-5.50); Red Cell Distribution Width 12.4 % (11.0-16.0)
[2020-03-23 07:49] LABS: PLT ABN DIST 1
[2020-03-23 07:50] LABS: Lactic Acid 1.3 mmol/L (0.5-2.0)
[2020-03-23 07:54] LABS: Lipase 46 U/L (8-78)
[2020-03-23 07:55] LABS: Alanine Aminotransferase 13 U/L (0-31); Albumin Level 3.6 g/dL (3.5-5.0); Alkaline Phosphatase 102 U/L (39-117); Anion Gap 15 (12-20); Aspartate Amino Transferase 19 U/L (5-31); Bilirubin Direct < 0.2 mg/dL (0.0-0.5); Bilirubin Total 0.3 mg/dL (0.0-1.0); Blood Urea Nitrogen 17 mg/dL (9-16); Calcium 8.5 mg/dL (8.4-10.2); Carbon Dioxide 29 mmol/L (22-29); Chloride 95 mmol/L (96-108); Creatinine Clr Calc Pharmacy 51.7; Estimated Glomerular Filt Rate 42; Glucose Random 309 mg/dL (60-115); Magnesium 1.5 mg/dL (1.6-2.6); Potassium 4.8 mmol/L (3.3-5.1); Sodium 134 mmol/L (135-145)
[2020-03-23 08:22] LABS: White Blood Count 8.8 X10*3/uL (4.8-10.8)
[2020-03-23 08:23] LABS: SLIDE REVIEW VERIFIED
[2020-03-23 08:39] VITALS: BP 114/55; PULSE 88; RESP 19; TEMP 37.8; O2SAT 95
--- NOTE | 2020-03-23 09:27 | PC.NURSE ---
PT REPORTS NO IMPROVEMENT AFTER THE MEDICATION 11/22
[2020-03-23] MEDS: Magnesium Sulfate/H2O 2 GM/50 ML PIGGYBACK IV (09:42)
[2020-03-23] MEDS: HYDROmorphone HCl 0.5 MG/0.5 ML SYRINGE IVPUSH (09:42)
[2020-03-23 10:08] VITALS: BP 125/66; PULSE 84; RESP 17; TEMP 37.2; O2SAT 93
--- NOTE | 2020-03-23 10:30 | PC.NURSE ---
PT DENIES PAIN AT THIS TIME, RESTING COMFORTABLY, VS STABLE
--- NOTE | 2020-03-23 11:00 | PC.NURSE ---
performed an ambulation trial, sats maintained at 94-95% on room air
[2020-03-23 11:17] LABS: Glucose Urine UA NEG (NEG); Leukocyte Esterase Urine 1+ (NEG); Nitrite Urine NEG (NEG); Specific Gravity - Urine >= 1.030 (1.005-1.025); UACC Culture Trigger YES; Urine Blood 1+ (NEG); Urine Ketones NEG (NEG); Urine Protein 3+ MG/DL (NEG-TRACE)
[2020-03-23 11:20] LABS: Appearance Urine CLEAR; Color Urine YELLOW
== END 2020-03-23 13:34 | disposition home or self-care (01) ==
PROVIDERS: Emergency Provider Emergency Medicine
DX: U07.1 COVID-19 (principal); N39.0 Urinary tract infection, site not specified; E83.42 Hypomagnesemia; K43.9 Ventral hernia without obstruction or gangrene; E11.9 Type 2 diabetes mellitus without complications; I10 Essential (primary) hypertension
CPT/HCPCS: 36415; 71045; 74176; 80048; 80076; 81001; 81003; 83605; 83690; 83735; 85025; 87040; 87086; 93005; 96365; 96375; 99284; J1170; J2270; J2405; J3475

== ENCOUNTER 2020-03-28 13:55 | Inpatient (IN) | payer OTHER, SELFPAY ==
[2020-03-28] VITALS (9 sets, daily range): BP systolic 105–123; BP diastolic 44–66; PULSE 63–90; RESP 15–20; TEMP 36.7–37.1; O2SAT 71–100; BMI 40.7; BMI 38.4
--- NOTE | 2020-03-28 | ECG_ITS ---
Test Reason : CP Blood Pressure : / mmHG Vent. Rate : 089 BPM Atrial Rate : 089 BPM P-R Int : 136 ms QRS Dur : 088 ms QT Int : 372 ms P-R-T Axes : 046 -10 009 degrees QTc Int : 452 ms Normal sinus rhythm Moderate voltage criteria for LVH, may be normal variant Borderline ECG When compared with ECG of 23-MAR-2020 07:17, Premature atrial complexes are no longer Present Referred By: Moses Reynoso Electronically Signed By:Eduard Reyes
--- NOTE | ~2020-03-28 | CT_ITS ---
EXAMINATION: CT ABDOMEN AND PELVIS WITH CONTRAST CLINICAL INFORMATION: Severe abdominal pain COMPARISON: CT scan abdomen pelvis March 2020 TECHNIQUE: Multidetector volumetric images were obtained from the superior aspect of the liver through the pubic symphysis following administration 71 mL of Omnipaque 350 intravenous contrast. Sagittal and coronal reformatted images were obtained on the technologist's workstation. Oral contrast: No This CT examination was performed using dose optimization techniques as appropriate, variously including the following: *Automated exposure control *Adjustment of mA and/or kV according to patient size (this includes techniques or standardized protocols for targeted exams where dose is matched to indication/reason for exam; i.e. extremities or head) *Use of iterative reconstruction technique DLP: 1558 mGy-cm FINDINGS: LUNG BASES: Extensive multicystic focal airspace opacities at both lung bases. This is new since CAT scan March 2020. No pleural effusion. LIVER, GALLBLADDER, AND BILIARY TREE: The liver is normal in size, shape, and attenuation. No focal hepatic lesion or biliary ductal dilatation is present. The gallbladder is unremarkable with no evidence of radiopaque gallstones, gallbladder wall thickening, or obvious pericholecystic inflammatory changes. PANCREAS: Unremarkable. SPLEEN: Unremarkable. ADRENAL GLANDS: Unremarkable. KIDNEYS AND URETERS: Right kidney: No change in size or number of the multiple right renal calculi in the mid lower pole. There are approximately 5 stones, each measuring about between 6 mm and 10 mm in size. The density for one of these stones measures 659 Hounsfield units. There is no hydronephrosis. There is no ureteral stone. Left kidney: No change in size or position of the 2 small calculi in the midpole of the left kidney. Largest stone measuring about 2 mm. There is no hydronephrosis. There is no ureteral stone. BLADDER: Unremarkable. ABDOMINAL WALL / GASTROINTESTINAL TRACT: No change in the ventral wall hernia containing nonobstructive loop of transverse colon. This hernia is about 12 cm cephalad from the umbilicus. A separate small fat-containing umbilical hernia the umbilicus. There are a few scattered diverticula of the colon. There is no diverticulitis. There is no bowel wall thickening /edema. There is no bowel obstruction. There is a moderate volume of stool in the colon. The appendix is normal . The small bowel loops are unremarkable. The stomach is normal. There is no hiatal hernia. PERITONEAL CAVITY: No free air or free fluid. No inflammation LYMPH NODES: Stable lymph node the left external iliac chain measuring 1.3 cm in short axis diameter and demonstrating a normal fatty rachel. No change of the right external iliac chain lymph node measuring 1.4 cm and demonstrating a normal fatty rachel. No significant retroperitoneal lymph node. VASCULAR: Unremarkable. PELVIC VISCERA: Unremarkable. OSSEOUS STRUCTURES: Unremarkable. CT/CT abdomen pelvis w con IMPRESSION: 1. Bilateral renal calculi unchanged in size or number since CAT scan of 03/23/2020. There is no hydronephrosis or ureteral stones. 2. Stable Ventral wall hernia containing nonobstructive loop of transverse colon. 3. Extensive bibasilar airspace disease. This is new since CAT scan March 2020. 4. Stable prominent bilateral pelvic lymph nodes containing normal fatty rachel.
--- NOTE | ~2020-03-28 | CT_ITS ---
EXAMINATION: CT ANGIOGRAM CHEST WITH AND WITHOUT CONTRAST (CT PULMONARY ANGIOGRAM FOR PE) CLINICAL INFORMATION: Hypoxia. Elevated D-dimer. COVID positive. COMPARISON: Most recent chest radiograph done earlier the same day. TECHNIQUE: Prior to contrast administration, noncontrast localization images were obtained. Subsequently, multidetector volumetric imaging was performed from the thoracic inlet to below the diaphragms following the administration of 71 mL Omnipaque 350 intravenous contrast. No contrast reaction reported. Sagittal, coronal, and MIP oblique sagittal reformatted images were obtained on the CT workstation, uploaded to PACS, and reviewed. This CT examination was performed using dose optimization techniques as appropriate, variously including the following: *Automated exposure control. *Adjustment of mA and/or kV according to patient size (this includes techniques or standardized protocols for targeted exams where dose is matched to indication/reason for exam; i.e. extremities or head). *Use of iterative reconstruction technique. Total exam dose-length product 479 mGy-cm FINDINGS: QUALITY OF STUDY/CONTRAST BOLUS: Satisfactory. PULMONARY ARTERIES: No central or segmental pulmonary emboli. THORACIC AORTA: No aneurysm or dissection. LUNG: Diffuse, patchy bilateral ground-glass airspace opacities, most prominent within the periphery of the lungs. Findings are consistent with reported COVID infection. Left upper lobe 0.6 cm calcified granuloma. No large pulmonary mass. The central airways are patent. PLEURA: No pleural effusion or pneumothorax. MEDIASTINUM: Mild cardiomegaly. No pericardial effusion. Mildly prominent superior mediastinal lymph nodes, the largest of which is in the prevascular space measuring up to 1.5 x 1.1 cm. No evidence of septal bowing or right heart strain. CHEST WALL/AXILLA: No axillary or internal mammary lymphadenopathy. OSSEOUS STRUCTURES: No acute or suspicious osseous abnormality. UPPER ABDOMEN: Unremarkable. No reflux of contrast into the hepatic veins to suggest elevated right heart pressures. CT/CT angio chest PE protocol IMPRESSION: 1. No central or segmental pulmonary embolism. 2. Diffuse, patchy bilateral ground-glass airspace opacities, most prominent within the periphery of the lungs. Findings are consistent with reported COVID infection. 3. Mildly prominent superior mediastinal lymph nodes. VTE: Negative.
--- NOTE | ~2020-03-28 | XR_ITS ---
EXAMINATION: XR CHEST CLINICAL INFORMATION: Hypoxia COMPARISON: 03/23/2020 TECHNIQUE: Frontal view of the chest was obtained. FINDINGS: Since the prior study, diffuse ill-defined groundglass infiltrates have developed throughout both lungs. Findings are consistent with Covid pulmonary infection. Heart size within normal limits. No pleural effusions are seen. XR/XR chest 1V IMPRESSION: Development of diffuse ill-defined groundglass infiltrates consistent with Covid infection
[2020-03-28 14:24] LABS: INTERNATIONAL NORM RATIO 1.1 (0.9-1.1); Prothrombin Time 12.7 SEC (10.8-13.0)
[2020-03-28] MEDS: dexAMETHasone sod phosphate 4 MG/ML VIAL 6 MG IVPUSH (14:36)
--- NOTE | 2020-03-28 14:37 | ED_ITS ---
HPI - General Adult General Chief complaint: Upper Respiratory Symptoms Stated complaint: covid+, sob Time Seen by Provider: 03/28/20 14:14 Source: patient Mode of arrival: ambulatory Limitations: language barrier History of Present Illness HPI narrative: 64 yo female with history of DM, obesity, HTN, hx brain tumor s/p rescetion, hx asthma, hc large ventral hernia and recently diagnosed COVID-19 on 03/20 presents to the ED from home reporting severe epigastric pain and SOB that have been on/off for the last 1 week. She was recently seen in the ED on 03/23 for abdominal pain and not feeling well with COVID. CT scan showed abdominal wall hernia with loop of transverse colon but no obstruction. She was diagnosed with UTI and discharged with antibiotics and pain medications. She states 2 days ago her breathing started to get worse along with her belly pain and back pain. Her entire body hurts. She is nauseated but not vomiting. Patient was found hypoxic to 70% on room air on arrival. MD complaint: abdominal pain and SOB Onset (ago): day(s) (2) Location: head, chest, back and abdomen Radiation: non-radiation Severity: severe Severity scale (1-10): 10 Quality: aching and sharp Pain Consistency: constant Relieving factors: none Exacerbating factors: movement Associated symptoms: cough, fever/chills, headaches, nausea/vomiting, shortness of breath and weakness Treatments prior to arrival: none Related Data Previous Rx's Medication Instructions Recorded pantoprazole [Protonix] 40 mg PO DAILY #20 tab 03/05/20 dicyclomine 20 mg PO TID PRN #30 tab 03/08/20 ondansetron 4 mg PO Q8H PRN #20 tab 03/08/20 cefuroxime axetil 250 mg PO BID 7 Days #14 tab 03/23/20 hydrocodone-acetaminophen 1 tab PO Q6H PRN #12 tab 03/23/20 ondansetron 4 mg PO Q8H PRN #20 tab 03/23/20 Allergies Allergy/AdvReac Type Severity Reaction Status Date / Time egg Allergy Mild Abdominal Verified 03/20/20 21:01 Pain Review of Systems Review of Systems: Constitutional: + Fever, + Chills ENT/Mouth: No sore throat, No Rhinorrhea, No Swallowing Difficulty Eyes: No Eye Pain, No Swelling, No Redness Cardiovascular: No Chest Pain, + SOB, No Orthopnea, No Edema Respiratory: + Cough, No Sputum, No Wheezing, + dyspnea Gastrointestinal: + Nausea, No Vomiting, No Diarrhea, + abdominal Pain Genitourinary: No Dysuria, No Urinary Frequency, No Hematuria Musculoskeletal: + joint pain, + Myalgias Skin: No Skin Lesions, No rash Neuro: + Weakness, No Numbness, No Dizziness, + Headache Psych: + Anxiety/Panic, No Depression Heme/Lymph: No Bruising, No Lymphadenopathy Endocrine: No Polyuria, No Polydipsia [facility] Past Medical History Medical History Brain tumor Cholecystectomy planned Depression Diabetes Gastritis HTN (hypertension) Kidney stone Surgical History H/O hernia repair History of cholecystectomy Social History Social History Alcohol intake: never Smoking Status: Never smoker Smoked in Last 30 Days: No Use of substances other than those prescribed or required for medical reasons: No Advance Directives: No Advance Directives Information Provided: No Physical Exam Vital Signs: Vital Signs: Last Vital Signs Temp 98.0 F 03/28/20 16:11 Pulse 84 03/28/20 16:11 Resp 20 03/28/20 16:11 BP 105/66 03/28/20 16:11 Pulse Ox 98 03/28/20 16:11 Body Mass Index 38.4 Appearance: Alert. Oriented X3. No acute distress. Eyes: Pupils equal, round and reactive to light. ENT: Pharynx normal. Neck: Normal inspection. Neck supple. CVS: Normal heart rate and rhythm. Pulses normal. Respiratory: Moderate respiratory distress with increased RR. Breath sounds coarse on the left with decreased aeration throughout the right lung and left base Abdomen: Obese Softly distended with and nontender. +BS x4 Skin: Skin warm and dry. Normal skin color. Normal skin turgor. No rashes. Extremities: No lower extremity edema. Neuro: Oriented X 3. No motor deficit. No sensory deficit. Course Course Course Narrative: 64 y/o female COVID positive female presenting with SOB and epigastric abdominal pain x2 days. Found to be hypoxic to 71% on room air on arrival. Placed on 100% NRB with improvement in saturations to high 90's. BS coarse throughout. STAT CXR ordered as well as COVID workup. Will need to check inflammatory markers and r/o PE. IV decadron ordered. Reevaluation(s) Reevaluation #1: Patient has been transitioned to 4L NC with SpO2 98%. DDIMER 580 - CT scans done, awaiting read. * Reevaluation #2: Patient remains stable on 4L NC. Aeration improved after IV decadron. She is breathing comfortably. No PE on CTA, evidence of COVID PNA. No acute findings on CT abd/pelvis. Will contact hospitalist for admission. Medical Decision Making Lab Data Result diagrams: 03/28/20 14:12 03/28/20 14:12 Labs: Lab Results 03/28/20 03/28/20 03/28/20 Range/Units 14:12 14:12 14:12 WBC 7.9 (4.8-10.8) X10*3/uL RBC 4.36 (4.20-5.50) X10*6/uL Hgb 13.2 (12.0-16.0) g/dl Hct 39.0 (37-47) % MCV 89.4 (80-98) fL MCH 30.3 (27.0-33.0) pg MCHC 33.8 (31.0-35.0) g/dl RDW 12.2 (11.0-16.0) % Plt Count TNP MPV Not Reportable Immature Gran % (Auto) 0.5 H (0.0-0.4) % Neut % (Auto) 75.8 H (45-73) % Lymph % (Auto) 16.3 L (20-40) % [place] % (Auto) 7.1 (2-11) % Eos % (Auto) 0.0 (0-4) % Baso % (Auto) 0.3 (0-2) % Lymph # (Auto) 1.3 (1.2-4.9) X10*3/uL [place] # (Auto) 0.6 (0.1-1.2) X10*3/uL Eos # (Auto) 0.0 (0.0-0.4) X10*3/uL Baso # (Auto) 0.0 (0.0-0.2) X10*3/uL Abs Immat Gran (auto) 0.04 H (0.00-0.03) X10*3/uL Absolute Neuts (auto) 6.0 (2.0-8.3) X10*3/uL Absolute Nucleated RBC 0.000 (0.0-0.012) X10*3/uL Nucleated RBC % (auto) 0.0 (0.0-0.2) /100WBC Smear Tech's Comments VERIFIED ESR (0-20) MM/HR PT 12.7 (10.8-13.0) SEC INR 1.1 (0.9-1.1) APTT 31.3 (24.1-38.0) SEC D-Dimer 586 NG/ML Sodium 132 L (135-145) mmol/L Potassium 4.7 (3.3-5.1) mmol/L Chloride 92 L (96-108) mmol/L Carbon Dioxide 26 (22-29) mmol/L Anion Gap 19 (12-20) BUN 22 H (9-16) mg/dL Creatinine 1.39 (0.5-1.4) mg/dL Estim Creat Clear Calc 44.5 Estimated GFR 38 Random Glucose 342 H (60-115) mg/dL Lactic Acid (0.5-2.0) mmol/L Lactic Acid Fup @ 2Hr (0.5-2.0) mmol/L Calcium 8.5 (8.4-10.2) mg/dL Ferritin (10-250) ng/mL Troponin I High Sens (<3.5-17.0) ng/L C-Reactive Protein (< or = 0.50) mg/dL 03/28/20 03/28/20 03/28/20 Range/Units 14:12 14:12 16:31 WBC (4.8-10.8) X10*3/uL RBC (4.20-5.50) X10*6/uL Hgb (12.0-16.0) g/dl Hct (37-47) % MCV (80-98) fL MCH (27.0-33.0) pg MCHC (31.0-35.0) g/dl RDW (11.0-16.0) % Plt Count MPV Immature Gran % (Auto) (0.0-0.4) % Neut % (Auto) (45-73) % Lymph % (Auto) (20-40) % [place] % (Auto) (2-11) % Eos % (Auto) (0-4) % Baso % (Auto) (0-2) % Lymph # (Auto) (1.2-4.9) X10*3/uL [place] # (Auto) (0.1-1.2) X10*3/uL Eos # (Auto) (0.0-0.4) X10*3/uL Baso # (Auto) (0.0-0.2) X10*3/uL Abs Immat Gran (auto) (0.00-0.03) X10*3/uL Absolute Neuts (auto) (2.0-8.3) X10*3/uL Absolute Nucleated RBC (0.0-0.012) X10*3/uL Nucleated RBC % (auto) (0.0-0.2) /100WBC Smear Tech's Comments ESR 84 H (0-20) MM/HR PT (10.8-13.0) SEC INR (0.9-1.1) APTT (24.1-38.0) SEC D-Dimer NG/ML Sodium (135-145) mmol/L Potassium (3.3-5.1) mmol/L Chloride (96-108) mmol/L Carbon Dioxide (22-29) mmol/L Anion Gap (12-20) BUN (9-16) mg/dL Creatinine (0.5-1.4) mg/dL Estim Creat Clear Calc Estimated GFR Random Glucose (60-115) mg/dL Lactic Acid 3.5 H* (0.5-2.0) mmol/L Lactic Acid Fup @ 2Hr (0.5-2.0) mmol/L Calcium (8.4-10.2) mg/dL Ferritin (10-250) ng/mL Troponin I High Sens 6.0 (<3.5-17.0) ng/L C-Reactive Protein (< or = 0.50) mg/dL 03/28/20 03/28/20 Range/Units 16:31 16:32 WBC (4.8-10.8) X10*3/uL RBC (4.20-5.50) X10*6/uL Hgb (12.0-16.0) g/dl Hct (37-47) % MCV (80-98) fL MCH (27.0-33.0) pg MCHC (31.0-35.0) g/dl RDW (11.0-16.0) % Plt Count MPV Immature Gran % (Auto) (0.0-0.4) % Neut % (Auto) (45-73) % Lymph % (Auto) (20-40) % [place] % (Auto) (2-11) % Eos % (Auto) (0-4) % Baso % (Auto) (0-2) % Lymph # (Auto) (1.2-4.9) X10*3/uL [place] # (Auto) (0.1-1.2) X10*3/uL Eos # (Auto) (0.0-0.4) X10*3/uL Baso # (Auto) (0.0-0.2) X10*3/uL Abs Immat Gran (auto) (0.00-0.03) X10*3/uL Absolute Neuts (auto) (2.0-8.3) X10*3/uL Absolute Nucleated RBC (0.0-0.012) X10*3/uL Nucleated RBC % (auto) (0.0-0.2) /100WBC Smear Tech's Comments ESR (0-20) MM/HR PT (10.8-13.0) SEC INR (0.9-1.1) APTT (24.1-38.0) SEC D-Dimer NG/ML Sodium (135-145) mmol/L Potassium (3.3-5.1) mmol/L Chloride (96-108) mmol/L Carbon Dioxide (22-29) mmol/L Anion Gap (12-20) BUN (9-16) mg/dL Creatinine (0.5-1.4) mg/dL Estim Creat Clear Calc Estimated GFR Random Glucose (60-115) mg/dL Lactic Acid (0.5-2.0) mmol/L Lactic Acid Fup @ 2Hr 2.0 (0.5-2.0) mmol/L Calcium (8.4-10.2) mg/dL Ferritin 579 H (10-250) ng/mL Troponin I High Sens (<3.5-17.0) ng/L C-Reactive Protein 17.56 H (< or = 0.50) mg/dL ECG Data Attestation: I personally reviewed and interpreted this ECG as follows: Interpretation: normal sinus rhythm, HR 89 bpm, normal VA interval, normal QTc, t-wave inversion in lead III and V1 Critical Care Time Critical Care Time Critical Care Time: Yes Total Critical Care Time: 40 Attestation: I attest to critical care time spent with the patient with life threatening acute hypoxic respiratory failure. Time spent frequently reassessing patient's respiratory and hemodynamic status, reviewing records and imaging and coordinating care. Discharge Plan Discharge Clinical Impression: Acute hypoxemic respiratory failure due to COVID-19 Patient Disposition: Admitted As Inpatient
[2020-03-28 14:40] LABS: Basophils Percent Auto 0.3 % (0-2); Hemoglobin 13.2 g/dl (12.0-16.0); Imm Gran Abs Auto 0.04 X10*3/uL (0.00-0.03); Imm Gran Pct Auto 0.5 % (0.0-0.4); Lymphocytes Absolute Auto 1.3 X10*3/uL (1.2-4.9); Lymphocytes Percent Auto 16.3 % (20-40); MANUAL DIFF FLAG SCAN; Mean Corpuscular HGB Conc 33.8 g/dl (31.0-35.0); Mean Corpuscular Hemoglobin 30.3 pg (27.0-33.0); Mean Corpuscular Volume 89.4 fL (80-98); Monocytes Absolute Auto 0.6 X10*3/uL (0.1-1.2); Monocytes Percent Auto 7.1 % (2-11); Neutrophils Percent Auto 75.8 % (45-73); Red Blood Count 4.36 X10*6/uL (4.20-5.50); Red Cell Distribution Width 12.2 % (11.0-16.0); SCAN SMEAR FLAG 1; White Blood Count 7.9 X10*3/uL (4.8-10.8)
--- NOTE | 2020-03-28 14:40 | PC.NURSE ---
patient a&ox3, c/o 11/22 abd pain, states she had sob since yesterday, upon arriving patient was 71% on room air and speaking in short sentences, NRB mask applied pt now 90-100% with decreased work of breathing, pt able to speak in longer sentences, iv inserted, labs drawn, ekg and cxr performed, patients vitals currently stable, medicated per order, will continue to monitor.
[2020-03-28 14:41] LABS: PLT ABN DIST 1
[2020-03-28 14:44] LABS: SLIDE REVIEW VERIFIED
[2020-03-28 14:48] LABS: Anion Gap 19 (12-20); Blood Urea Nitrogen 22 mg/dL (9-16); Calcium 8.5 mg/dL (8.4-10.2); Carbon Dioxide 26 mmol/L (22-29); Chloride 92 mmol/L (96-108); Creatinine Clr Calc Pharmacy 44.5; Estimated Glomerular Filt Rate 38; Glucose Random 342 mg/dL (60-115); Potassium 4.7 mmol/L (3.3-5.1); Sodium 132 mmol/L (135-145)
[2020-03-28 14:52] LABS: Lactic Acid 3.5 mmol/L (0.5-2.0)
[2020-03-28 14:53] LABS: D Dimer 586 NG/ML; Partial Thromboplastin Time 31.3 SEC (24.1-38.0)
--- NOTE | 2020-03-28 16:15 | PC.NURSE ---
patient a&ox3, cardiac tech nsr 80s, vss, patient was taken off nrb earlier by RT and placed on 4L nc, patients o2 sat wnl on NC, pt awaiting ct scan while watching tv, no apparent distress noted at this time, will continue to monitor.
[2020-03-28 16:16] LABS: Reflex Lactate? Lactic Acid Added
[2020-03-28] MEDS: 0.9 % Sodium Chloride 500 ML 250 ML IVCONT (16:17)
--- NOTE | 2020-03-28 16:35 | PC.NURSE ---
labs drawn per order
--- NOTE | 2020-03-28 16:42 | PC.NURSE ---
pt transported to ct scan
[2020-03-28] MEDS: iohexoL 350 MG/ML 100 ML INFUS..BTL IV (17:00)
[2020-03-28 17:01] LABS: C Reactive Protein 17.56 mg/dL (< or = 0.50)
--- NOTE | 2020-03-28 17:03 | PC.NURSE ---
Pt improved, lung sounds clear in uppers with mild wheezing in lower lobes. She states she feels better and is ready for discharge.
[2020-03-28 17:17] LABS: Erythrocyte Sedimentation Rate 84 MM/HR (0-20)
[2020-03-28 17:24] LABS: Ferritin 579 ng/mL (10-250)
--- NOTE | 2020-03-28 18:06 | PC.NURSE ---
upon coming into the patients room she had no oxygen on and was no longer hooked to bus driver/monitor, patient was 83% on room air- she was coughing and sob, o2 applied and increased to 5L, patient recovered to 93%, bus driver/monitor nsr 80s, vitals otherwise stable and hospitalist is now in the room speaking with the patient.
[2020-03-28 18:09] LABS: Procalcitonin 0.26 ng/mL
--- NOTE | 2020-03-28 18:23 | PC.NURSE ---
Son phone number the son Daryl called his number is [phone], he would liked to be called when the patient is discharged from the hospital to ensure proper arrangements are made.
--- NOTE | 2020-03-28 18:24 | PM.EVENT ---
Event Note Date of Service: 03/28/20 Event Note: addendum to H+P by DHARA Nielsen I interviewed and examined the patient. I discussed their presentation and management with the mid-level provider. I reviewed the history and physical and agree with the documentation, with the following additions and corrections: 64yo F with DM2, CKD3, benign brain tumor, HTN Multiple COVID+ household contacts: daughter, son-in-law Tested positive herself 03/20/20 then developed symptoms 03/22/20 involving dry cough, dyspnea, faituge, malaise, abd pain, pleuritic chest pain Had fever 101.5 in ED 03/23/20 Endorses constipation Presented with SaO2 71% on RA, now 96% on 5L by NC Mild respiratory distress Labs WBC 7.9, Hb 13.2, plts clumped, D-dimer 586, glu 342, LA 3.5->2, ferritin 579, hs Tn-I 6, CRP 17.56, PCT 0.26 CTA chest with ground-glass infiltrates bilaterally, prominent superior mediastinal LNs, no PE CT A/P with B unchanged renal calculi, ventral wall hernia, pelvic lymph nodes stable since last exam, moderate amount of stool Plan admit to [facility], dexamethasone 6 mg daily x10d, ID consult for remdesivir, trend inflammatory markers
--- NOTE | 2020-03-28 18:29 | P.HPHOSP_ITS ---
History of Present Illness Date of Service: 03/28/20 <DHARA Forbes - Last Filed: 03/28/20 19:16> Chief Complaint: shortness of breath <DHARA Forbes - Last Filed: 03/28/20 19:16> This is a 64 year old [place] speaking female who presents to the ED with shortness of breath. She initially presented to the ED on 03/20/2020 after a family member test positive for coronavirus. She tested positive at that time but was asymptomatic and not hypoxic. She returns today with shortness of breat h, dry cough,malaise, pleuritic chest pain and abdominal pain. She denies any associated fever or chills. Her symptoms began 2 days after her diagnosis of COVID-19. On arrival to the emergency department her oxygen saturation was documented to be 71% on room air. She is currently saturating 92% on 5 L. lab work revealed mild renal insufficiency with a creatinine of 1.39, elevated lactic acid of 3.5 which improved to 2.0 on repeat. Inflammatory markers were elevated CR poly 17.56, ferritin 579. No evidence of pulmonary embolism but diffuse patchy bilateral ground glass opacities consistent with COVID-19. CT scan of the abdomen showed moderate stool burden. She was given a dose of IV de xamethasone and the decision was made to admit her for further management of covid 19 pneumonia. <DHARA Frobes - Last Filed: 03/28/20 19:16> Review of Systems Review of Systems: Yes all other systems are reviewed and are negative <DHARA Forbes - Last Filed: 03/28/20 19:16> Constitutional: Constitutional: Reports malaise <DHARA Forbes Last Filed: 03/28/20 19:16> Cardiovascular: Cardiovascular: Reports dyspnea <DHARA Forbes Last Filed: 03/28/20 19:16> Respiratory: Respiratory: Reports cough and Reports dyspnea <DHARA Forbes Last Filed: 03/28/20 19:16> Gastrointestinal: Gastrointestinal: Reports abdominal pain <DHARA Forbes Last Filed: 03/28/20 19:16> [facility] Medical History: Medical History (Updated 03/29/20 @ 03:28 by Dawn Henriquez RN) Brain tumor CKD (chronic kidney disease) stage 3, GFR 30-59 ml/min Depression Diabetes Gastritis HLD (hyperlipidemia) Kidney stone Seizure <DHARA Forbes - Last Filed: 03/28/20 19:16> Functional capacity: independent ambulation <DHARA Forbes - Last Filed: 03/28/20 19:16> Family History: Family History Father CAD (coronary artery disease) Brother Lung cancer <DHARA Forbes - Last Filed: 03/28/20 19:16> Family history: reviewed and not pertinent <DHARA Forbes - Last Filed: 03/28/20 19:16> Surgical History: Surgical History H/O hernia repair History of cholecystectomy <DHARA Forbes - Last Filed: 03/28/20 19:16> Social History: Social History (Updated 03/28/20 @ 18:51 by DHARA Forbes) Household Members: Family Housing: House Do you presently have visiting nurse or other home services: Yes Alcohol intake: never Smoking Status: Never smoker Smoked in Last 30 Days: No Use of substances other than those prescribed or required for medical reasons: No Have you been hit, kicked, punched, or otherwise hurt by someone within the past year? If so, by whom?: No Do you feel safe in your current relationship?: No Is there a partner from a previous relationship who is making you feel unsafe now?: No Are you made to feel afraid or neglected: No Advance Directives: No Advance Directives Information Provided: No Advance Directives on File: No Do you have thoughts of harming others: None Do you have a plan to hurt others: No Plan Recently lost weight without trying: No <DHARA Forbes - Last Filed: 03/28/20 19:16> Meds Allergies/Adverse reactions: Allergies Allergy/AdvReac Type Severity Reaction Status Date / Time egg Allergy Mild Abdominal Verified 03/20/20 21:01 Pain <DHARA Forbes - Last Filed: 03/28/20 19:16> Active Medications: Current Medications Generic Name Dose Route Start Last Admin Trade Name Freq PRN Reason Stop Dose Admin Pharmacy Consult 1 each 03/28/20 17:45 Consult Rx Perform Med Rec MISCELLANE ONCE PRN Consult order <DHARA Forbes Last Filed: 03/28/20 19:16> Home medications: Home Medications Medication Instructions Recorded Confirmed Last Taken Type blood sugar diagnostic [FreeStyle 03/28/20 03/28/20 Unknown History Lite Strips] blood-glucose meter [FreeStyle 03/28/20 03/28/20 Unknown History [place] Lite] insulin lispro [Humalog KwikPen 2 - 14 unit SUBCUT TID 03/28/20 03/28/20 Unknown History Insulin] lacosamide [Vimpat] 1 tab PO BID 03/28/20 03/28/20 Unknown History lancets [FreeStyle Lancets] 03/28/20 03/28/20 Unknown History pantoprazole 1 tab PO DAILY 03/28/20 03/28/20 Unknown History <DHARA Forbes - Last Filed: 03/28/20 19:16> Physical Exam Vital Signs and Narrative: Vital Signs: Last Vital Signs Temp 98.0 F 03/28/20 16:11 Pulse 85 03/28/20 18:00 Resp 20 03/28/20 18:00 BP 107/48 L 03/28/20 18:00 Pulse Ox 92 03/28/20 18:00 Body Mass Index 38.4 <DHARA Forbes - Last Filed: 03/28/20 19:16> Const: General: alert and awake <DHARA Forbes - Last Filed: 03/28/20 19:16> Nutritional Appearance: well nourished <DHARA Forbes Last Filed: 03/28/20 19:16> Orientation/consciousness: patient oriented x3 <DHARA Forbes Last Filed: 03/28/20 19:16> HENMT: Head: Yes normocephalic and Yes atraumatic <DHARA Forbes Last Filed: 03/28/20 19:16> Eyes: Sclerae: sclerae normal <DHARA Forbes - Last Filed: 03/28/20 19:16> Chest: Chest palpation & inspection: normal inspection of the chest <DHARA Forbes - Last Filed: 03/28/20 19:16> Resp: Effort & Inspection: normal respiratory effort and no respiratory distress <DHARA Forbes - Last Filed: 03/28/20 19:16> Cardio: Rate: regular rate <DHARA Forbes - Last Filed: 03/28/20 19:16> Rhythm: regular rhythm <DHARA Forbes - Last Filed: 03/28/20 19:16 > GI: Palpation (GI): Soft to palpation and nontender <DHARA Forbes - Last Filed: 03/28/20 19:16> Skin: General skin exam: no rashes or lesions noted <DHARA Forbes - Last Filed: 03/28/20 19:16> Neuro: General: patient oriented x3 <DHARA Forbes - Last Filed: 03/28/20 19:16> Cranial nerves: Yes CN's II-XII intact bilaterally and Yes Bilaterally intact EOM present <DHARA Forbes - Last Filed: 03/28/20 19:16> Extrem: General: Yes normal to inspection <DHARA Forbes - Last Filed: 03/28/20 19:16> Results Labs CBC and Chem 7: : 03/29/20 05:33 03/29/20 05:33 <DHARA Forbes - Last Filed: 03/28/20 19:16> Labs: Laboratory Results - last 24 hr 03/28/20 03/28/20 03/28/20 14:12 14:12 14:12 MCV 89.4 MCH 30.3 MCHC 33.8 RDW 12.2 Plt Count TNP MPV Not Reportable Immature Gran % (Auto) 0.5 H Neut % (Auto) 75.8 H Lymph % (Auto) 16.3 L [place] % (Auto) 7.1 Eos % (Auto) 0.0 Baso % (Auto) 0.3 Lymph # (Auto) 1.3 [place] # (Auto) 0.6 Eos # (Auto) 0.0 Baso # (Auto) 0.0 Abs Immat Gran (auto) 0.04 H Absolute Neuts (auto) 6.0 Absolute Nucleated RBC 0.000 Nucleated RBC % (auto) 0.0 Smear Tech's Comments VERIFIED ESR PT 12.7 INR 1.1 APTT 31.3 D-Dimer 586 Anion Gap 19 Estim Creat Clear Calc 44.5 Estimated GFR 38 Random Glucose 342 H Lactic Acid Lactic Acid Fup @ 2Hr Calcium 8.5 Ferritin Troponin I High Sens C-Reactive Protein Procalcitonin 03/28/20 03/28/20 03/28/20 14:12 14:12 16:31 MCV MCH MCHC RDW Plt Count MPV Immature Gran % (Auto) Neut % (Auto) Lymph % (Auto) [place] % (Auto) Eos % (Auto) Baso % (Auto) Lymph # (Auto) [place] # (Auto) Eos # (Auto) Baso # (Auto) Abs Immat Gran (auto) Absolute Neuts (auto) Absolute Nucleated RBC Nucleated RBC % (auto) Smear Tech's Comments ESR 84 H PT INR APTT D-Dimer Anion Gap Estim Creat Clear Calc Estimated GFR Random Glucose Lactic Acid 3.5 H* Lactic Acid Fup @ 2Hr Calcium Ferritin Troponin I High Sens 6.0 C-Reactive Protein Procalcitonin 03/28/20 03/28/20 03/28/20 16:31 16:32 16:35 MCV MCH MCHC RDW Plt Count MPV Immature Gran % (Auto) Neut % (Auto) Lymph % (Auto) [place] % (Auto) Eos % (Auto) Baso % (Auto) Lymph # (Auto) [place] # (Auto) Eos # (Auto) Baso # (Auto) Abs Immat Gran (auto) Absolute Neuts (auto) Absolute Nucleated RBC Nucleated RBC % (auto) Smear Tech's Comments ESR PT INR APTT D-Dimer Anion Gap Estim Creat Clear Calc Estimated GFR Random Glucose Lactic Acid Lactic Acid Fup @ 2Hr 2.0 Calcium Ferritin 579 H Troponin I High Sens C-Reactive Protein 17.56 H Procalcitonin 0.26 <DHARA Forbes - Last Filed: 03/28/20 19:16> Imaging Radiologist's Impressions: Impressions Chest X-Ray 03/28/20 14:15 IMPRESSION: Development of diffuse ill-defined groundglass infiltrates consistent with Covid infection Abdomen/Pelvis CT 03/28/20 15:04 IMPRESSION: 1. Bilateral renal calculi unchanged in size or number since CAT scan of 03/23/2020. There is no hydronephrosis or ureteral stones. 2. Stable Ventral wall hernia containing nonobstructive loop of transverse colon. 3. Extensive bibasilar airspace disease. This is new since CAT scan March 2020. 4. Stable prominent bilateral pelvic lymph nodes containing normal fatty rachel. Chest CTA 03/28/20 15:04 IMPRESSION: 1. No central or segmental pulmonary embolism. 2. Diffuse, patchy bilateral ground-glass airspace opacities, most prominent within the periphery of the lungs. Findings are consistent with reported COVID infection. 3. Mildly prominent superior mediastinal lymph nodes. VTE: Negative. <DHARA Forbes - Last Filed: 03/28/20 19:16> Assessment and Plan (1) Acute hypoxemic respiratory failure due to COVID-19: Status: Acute <DHARA Forbes - Last Filed: 03/28/20 19:16> This is a 64 year old [place] speaking female with history of DM, HLD, benign brain tumor, seizure d/o, diagnosed with covid 19 on 03/20 here with shortness of breath Acute respiratory failure with hypoxia PNA secondary to covid 19 Elevated inflammatory markers CRP 17.5, ferritin 579 -dexamethasone -ID consult -contact precautions -supplemental o2 prn DM -SSI, POCs CKD SCr 1.39. follow renal function Med rec pending at this time. will continue home medications once med rec is completed. dvt ppx - lovenox code status - full code This case was discussed with Dr. Reynoso <DHARA Forbes - Last Filed: 03/28/20 19:16>
[2020-03-28] MEDS: Milk of Magnesia 30 ML ORAL.SUSP 15 ML PO (19:53)
--- NOTE | 2020-03-28 19:55 | PC.NURSE ---
pt quality assurance monitor sb to nsr 60s-80s, vitals stable, pt able to speak in full sentences with O2 on- no sob noted at this time, pt continues to desat while off o2 and becomes dyspnic, pt medicated per order, will continue to monitor.
[2020-03-28 20:42] LABS: Glucose, Whole Blood 380 mg/dL (60-115)
[2020-03-28] MEDS: Insulin Lispro 100 UNIT/ML 3 ML VIAL SUBCUT (22:12)
[2020-03-28] MEDS: Enoxaparin Sodium 40 MG/0.4 ML SYRINGE SUBCUT (22:12)
--- NOTE | 2020-03-28 22:18 | PC.NURSE ---
patient medicated per order, patient vitals remain stable- nsr on cardiac rehab nurse, will continue to monitor.
--- NOTE | 2020-03-28 22:24 | PC.NURSE ---
notified Dr. Ronquilol via tiger text about patients blood sugar. pt given insulin per sliding scale.
--- NOTE | 2020-03-28 22:39 | PC.NURSE ---
called floor to give report- they stated they wont have staff to take report until after 11
--- NOTE | 2020-03-28 23:01 | PC.NURSE ---
attempted report press secretary stated that the nurse has not yet arrived to take report.
[2020-03-29] VITALS (8 sets, daily range): BP systolic 122–153; BP diastolic 56–72; PULSE 54–72; RESP 18–24; TEMP 35.9–36.9; O2SAT 91–95
--- NOTE | 2020-03-29 | ECG_ITS ---
Test Reason : hyperK Blood Pressure : / mmHG Vent. Rate : 060 BPM Atrial Rate : 060 BPM P-R Int : 156 ms QRS Dur : 096 ms QT Int : 428 ms P-R-T Axes : 052 000 014 degrees QTc Int : 428 ms Normal sinus rhythm Minimal voltage criteria for LVH, may be normal variant Borderline ECG No previous ECGs available Referred By: Moses Reynoso Electronically Signed By:Eduard Reyes
--- NOTE | 2020-03-29 00:34 | PC.NURSE ---
PT TO FLOOR AT THIS TIME.
[2020-03-29] MEDS: Morphine Sulfate 2 MG/ML CARTRIDGE IVPUSH (03:34)
[2020-03-29 06:37] LABS: Basophils Percent Auto 0.2 % (0-2); Hemoglobin 11.2 g/dl (12.0-16.0); MANUAL DIFF FLAG SCAN; Red Cell Distribution Width 12.5 % (11.0-16.0); SCAN SMEAR FLAG 1
[2020-03-29 06:39] LABS: Hematocrit 34.1 % (37-47); Imm Gran Abs Auto 0.03 X10*3/uL (0.00-0.03); Imm Gran Pct Auto 0.6 % (0.0-0.4); Lymphocytes Absolute Auto 0.6 X10*3/uL (1.2-4.9); Lymphocytes Percent Auto 11.4 % (20-40); Mean Corpuscular HGB Conc 32.8 g/dl (31.0-35.0); Mean Corpuscular Hemoglobin 29.9 pg (27.0-33.0); Mean Corpuscular Volume 91.2 fL (80-98); Mean Platelet Volume 13.5 fL (9.4-12.3); Monocytes Absolute Auto 0.7 X10*3/uL (0.1-1.2); Monocytes Percent Auto 12.3 % (2-11); Neutrophils Absolute Auto 4.1 X10*3/uL (2.0-8.3); Neutrophils Percent Auto 75.5 % (45-73); PLT CLUMP 1; Red Blood Count 3.74 X10*6/uL (4.20-5.50)
[2020-03-29 07:28] LABS: Glucose, Whole Blood 433 mg/dL (60-115)
[2020-03-29 07:38] LABS: PLT ABN DIST 1; White Blood Count 5.4 X10*3/uL (4.8-10.8)
[2020-03-29 07:48] LABS: Anion Gap 17 (12-20); Blood Urea Nitrogen 32 mg/dL (9-16); Calcium 7.8 mg/dL (8.4-10.2); Carbon Dioxide 27 mmol/L (22-29); Chloride 93 mmol/L (96-108); Creatinine Clr Calc Pharmacy 43.3; Estimated Glomerular Filt Rate 37; Glucose Random 495 mg/dL (60-115); Potassium 6.3 mmol/L (3.3-5.1); Sodium 131 mmol/L (135-145)
[2020-03-29 08:08] LABS: Platelet Count (Citrate) 136 X10*3/uL (150-310); SLIDE REVIEW VERIFIED
[2020-03-29] MEDS: Insulin Regular, Human 100 UNIT/ML 3 ML VIAL 10 UNIT IVPUSH (08:15)
[2020-03-29] MEDS: Insulin Lispro 100 UNIT/ML 3 ML VIAL SUBCUT ×4 (08:15→21:34)
[2020-03-29] MEDS: Sodium Polystyrene Sulfon/Sorb 15 GM/60 ML ORAL.SUSP 30 GM PO (08:16)
[2020-03-29] MEDS: Omeprazole 20 MG CAPSULE.DR PO (08:17)
[2020-03-29] MEDS: dexAMETHasone sod phosphate 4 MG/ML VIAL 6 MG IVPUSH (08:27)
[2020-03-29] MEDS: Calcium Gluconate/NaCl,Iso-Osm 1 GM/50 ML PLAST..BAG IV (08:30)
[2020-03-29] MEDS: 0.9 % Sodium Chloride Flush 3 ML SYRINGE IVFLUSH ×2 (08:31→16:09)
[2020-03-29 09:46] LABS: Glucose, Whole Blood 232 mg/dL (60-115)
--- NOTE | 2020-03-29 10:13 | HO.PM.IMPN ---
Subjective Subjective Date of Service: 03/29/20 Interval History: short of breathing; requiring 6L O2 via NC K elevated at 6.3 this am hyperglycemic no fever Physical Exam Vital Signs: Vital Signs: Last Vital Signs Temp 96.7 F L 03/29/20 04:00 Pulse 57 03/29/20 04:00 Resp 20 03/29/20 04:00 BP 153/68 H 03/29/20 04:00 Pulse Ox 92 03/29/20 04:00 Body Mass Index 38.4 Gen: mild respiratory distress HEENT: sclera anicteric, moist mucus membranes Neck: supple Lungs: mild respiratory distress, auscultation deferred due to COVID-19 Heart: normal peripheral pulses Abd: soft, obese, non-tender, non-distended Ext: no cyanosis, clubbing, or edema Skin: warm/well-perfused Neuro: alert and oriented x3, no focal findings Psych: appropriate affect Objective Data Current Medications Generic Name Dose Route Start Last Admin Trade Name Freq PRN Reason Stop Dose Admin Acetaminophen 650 mg 03/28/20 20:18 Acetaminophen 325 Mg Tablet PO Q6H PRN Pain, Mild (Pain Scale 1-3) Albuterol Sulfate 2 puff 03/28/20 20:18 Albuterol Sulfate 90 Mcg 8 Gm Inhaler INHALE RQ4H PRN Shortness of Breath Dexamethasone Sodium Phosphate 6 mg 03/29/20 09:00 03/29/20 08:27 Dexamethasone Sod Phosphate 4 Mg/Ml Vial IVPUSH 6 mg DAILY KATHERINE Administration Docusate Sodium 100 mg 03/28/20 20:18 Docusate Sodium 100 Mg Capsule PO DAILY PRN Constipation Enoxaparin Sodium 40 mg 03/28/20 22:00 03/28/20 22:12 Enoxaparin Sodium 40 Mg/0.4 Ml Syringe SUBCUT 40 mg Q24H KATHERINE Administration Insulin Glargine 10 unit 03/29/20 21:00 Insulin Glargine,Hum.Rec.Anlog 100 Unit/Ml 10 Ml Vial SUBCUT BEDTIME [facility] Insulin Human Lispro 0 unit 03/28/20 21:00 03/29/20 08:15 Insulin Lispro 100 Unit/Ml 3 Ml Vial SUBCUT 15 unit QIDACHS KATHERINE Administration Protocol Omeprazole 20 mg 03/29/20 08:00 03/29/20 08:17 Omeprazole 20 Mg Capsule.Dr PO 20 mg DAILY@0630 [facility] Administration Ondansetron HCl 4 mg 03/28/20 20:18 Ondansetron Hcl 4 Mg/2 Ml Vial IVPUSH Q8H PRN Nausea and Vomiting Pharmacy Consult 1 each 03/28/20 17:45 Consult Rx Perform Med Rec MISCELLANE ONCE PRN Consult order Sodium Chloride 3 ml 03/29/20 00:00 03/29/20 08:31 0.9 % Sodium Chloride Flush 3 Ml Syringe IVFLUSH 3 ml QSHIFT [facility] Administration Labs CBC & Chem 7: 03/29/20 05:33 03/29/20 05:33 Labs: Laboratory Results - last 24 hr 03/28/20 03/28/20 03/28/20 14:12 14:12 14:12 WBC 7.9 RBC 4.36 Hgb 13.2 Hct 39.0 MCV 89.4 MCH 30.3 MCHC 33.8 RDW 12.2 Plt Count TNP MPV Not Reportable Immature Gran % (Auto) 0.5 H Neut % (Auto) 75.8 H Lymph % (Auto) 16.3 L [place] % (Auto) 7.1 Eos % (Auto) 0.0 Baso % (Auto) 0.3 Lymph # (Auto) 1.3 [place] # (Auto) 0.6 Eos # (Auto) 0.0 Baso # (Auto) 0.0 Abs Immat Gran (auto) 0.04 H Absolute Neuts (auto) 6.0 Absolute Nucleated RBC 0.000 Nucleated RBC % (auto) 0.0 Plt Count ,Citrate Smear Tech's Comments VERIFIED ESR PT 12.7 INR 1.1 APTT 31.3 D-Dimer 586 Sodium 132 L Potassium 4.7 Chloride 92 L Carbon Dioxide 26 Anion Gap 19 BUN 22 H Creatinine 1.39 Estim Creat Clear Calc 44.5 Estimated GFR 38 POC Glucose Random Glucose 342 H Lactic Acid Lactic Acid Fup @ 2Hr Calcium 8.5 Ferritin Troponin I High Sens C-Reactive Protein Procalcitonin 03/28/20 03/28/20 03/28/20 14:12 14:12 16:31 WBC RBC Hgb Hct MCV MCH MCHC RDW Plt Count MPV Immature Gran % (Auto) Neut % (Auto) Lymph % (Auto) [place] % (Auto) Eos % (Auto) Baso % (Auto) Lymph # (Auto) [place] # (Auto) Eos # (Auto) Baso # (Auto) Abs Immat Gran (auto) Absolute Neuts (auto) Absolute Nucleated RBC Nucleated RBC % (auto) Plt Count ,Citrate Smear Tech's Comments ESR 84 H PT INR APTT D-Dimer Sodium Potassium Chloride Carbon Dioxide Anion Gap BUN Creatinine Estim Creat Clear Calc Estimated GFR POC Glucose Random Glucose Lactic Acid 3.5 H* Lactic Acid Fup @ 2Hr Calcium Ferritin Troponin I High Sens 6.0 C-Reactive Protein Procalcitonin 03/28/20 03/28/20 03/28/20 16:31 16:32 16:35 WBC RBC Hgb Hct MCV MCH MCHC RDW Plt Count MPV Immature Gran % (Auto) Neut % (Auto) Lymph % (Auto) [place] % (Auto) Eos % (Auto) Baso % (Auto) Lymph # (Auto) [place] # (Auto) Eos # (Auto) Baso # (Auto) Abs Immat Gran (auto) Absolute Neuts (auto) Absolute Nucleated RBC Nucleated RBC % (auto) Plt Count ,Citrate Smear Tech's Comments ESR PT INR APTT D-Dimer Sodium Potassium Chloride Carbon Dioxide Anion Gap BUN Creatinine Estim Creat Clear Calc Estimated GFR POC Glucose Random Glucose Lactic Acid Lactic Acid Fup @ 2Hr 2.0 Calcium Ferritin 579 H Troponin I High Sens C-Reactive Protein 17.56 H Procalcitonin 0.26 03/28/20 03/28/20 03/29/20 18:46 20:36 05:33 WBC 5.4 RBC 3.74 L Hgb 11.2 L Hct 34.1 L MCV 91.2 MCH 29.9 MCHC 32.8 RDW 12.5 Plt Count TNP MPV 13.5 H Immature Gran % (Auto) 0.6 H Neut % (Auto) 75.5 H Lymph % (Auto) 11.4 L [place] % (Auto) 12.3 H Eos % (Auto) 0.0 Baso % (Auto) 0.2 Lymph # (Auto) 0.6 L [place] # (Auto) 0.7 Eos # (Auto) 0.0 Baso # (Auto) 0.0 Abs Immat Gran (auto) 0.03 Absolute Neuts (auto) 4.1 Absolute Nucleated RBC 0.000 Nucleated RBC % (auto) 0.0 Plt Count ,Citrate Smear Tech's Comments VERIFIED ESR PT INR APTT D-Dimer Sodium Potassium Chloride Carbon Dioxide Anion Gap BUN Creatinine Estim Creat Clear Calc Estimated GFR POC Glucose 380 H* Random Glucose Lactic Acid Lactic Acid Fup @ 2Hr Calcium Ferritin Troponin I High Sens 6.0 C-Reactive Protein Procalcitonin 03/29/20 03/29/20 03/29/20 05:33 05:33 07:22 WBC RBC Hgb Hct MCV MCH MCHC RDW Plt Count MPV Immature Gran % (Auto) Neut % (Auto) Lymph % (Auto) [place] % (Auto) Eos % (Auto) Baso % (Auto) Lymph # (Auto) [place] # (Auto) Eos # (Auto) Baso # (Auto) Abs Immat Gran (auto) Absolute Neuts (auto) Absolute Nucleated RBC Nucleated RBC % (auto) Plt Count ,Citrate 136 L Smear Tech's Comments ESR PT INR APTT D-Dimer Sodium 131 L Potassium 6.3 H* D Chloride 93 L Carbon Dioxide 27 Anion Gap 17 BUN 32 H Creatinine 1.43 H Estim Creat Clear Calc 43.3 Estimated GFR 37 POC Glucose 433 H* Random Glucose 495 H* Lactic Acid Lactic Acid Fup @ 2Hr Calcium 7.8 L D Ferritin Troponin I High Sens C-Reactive Protein Procalcitonin 03/29/20 09:40 WBC RBC Hgb Hct MCV MCH MCHC RDW Plt Count MPV Immature Gran % (Auto) Neut % (Auto) Lymph % (Auto) [place] % (Auto) Eos % (Auto) Baso % (Auto) Lymph # (Auto) [place] # (Auto) Eos # (Auto) Baso # (Auto) Abs Immat Gran (auto) Absolute Neuts (auto) Absolute Nucleated RBC Nucleated RBC % (auto) Plt Count ,Citrate Smear Tech's Comments ESR PT INR APTT D-Dimer Sodium Potassium Chloride Carbon Dioxide Anion Gap BUN Creatinine Estim Creat Clear Calc Estimated GFR POC Glucose 232 H Random Glucose Lactic Acid Lactic Acid Fup @ 2Hr Calcium Ferritin Troponin I High Sens C-Reactive Protein Procalcitonin Assessment and Plan (1) Acute hypoxemic respiratory failure due to COVID-19: Status: Acute Assessment and Plan: 64yo F with DM2, CKD3, benign brain tumor, HTN multiple household contacts with COVID-19 and tested positive herself 03/20/19, had onset of dyspnea and cough 03/22/19 admitted for hypoxic respiratory failure # COVID-19 pneumonia - dexamethasone d#03/25, resmdesivir d#02/17. ID consult. trend inflammatory markers # acute hypoxic respiratory failure - supplemental O2, wean as tolerated, encourage awake proning # hyperK - likely due to MICHAEL. given 1g Ca gluconate but no EKG changes. given SPS 30g and IV insulin. recheck BMP @ 1200 # MICHAEL/CKD3 [baseline SCr 1-1.3] - mild. monitor SCr and avoid nephrotoxins. will keep slightly dry given high risk of ARDS with COVID-19 pneumonia # DM2 - basal/bolus insulin, check A1c # sz prophylaxis s/p benign brain tumor resection - continue lacosamide (pt will have to bring it in from home) # VTE ppx - LMWH I updated the pt's son-in-law Daryl Gomez by phone,
[2020-03-29 11:18] LABS: Alanine Aminotransferase 17 U/L (0-31); Albumin Level 3.2 g/dL (3.5-5.0); Alkaline Phosphatase 91 U/L (39-117); Aspartate Amino Transferase 22 U/L (5-31); Bilirubin Direct < 0.2 mg/dL (0.0-0.5); Bilirubin Total 0.3 mg/dL (0.0-1.0); Total Protein 6.4 g/dL (6.5-8.0)
[2020-03-29 11:42] LABS: Glucose, Whole Blood 202 mg/dL (60-115)
[2020-03-29] MEDS: ondansetron HCL 4 MG/2 ML VIAL IVPUSH (12:27)
[2020-03-29 13:16] LABS: Anion Gap 17 (12-20); Blood Urea Nitrogen 39 mg/dL (9-16); Calcium 8.5 mg/dL (8.4-10.2); Carbon Dioxide 27 mmol/L (22-29); Chloride 96 mmol/L (96-108); Creatinine Clr Calc Pharmacy 40.5; Estimated Glomerular Filt Rate 34; Glucose Random 227 mg/dL (60-115); Potassium 5.3 mmol/L (3.3-5.1); Sodium 135 mmol/L (135-145)
--- NOTE | 2020-03-29 14:25 | MHC.CM.PN ---
CM ATTEMPTED TO CONTACT PTS DAUGHTER, PHANI ([phone]) HOWEVER HER PHONE NUMBER IS OUT OF SERVICE. CM CALLED PTS ALTERNATE CONTACT, HILLARY PEREZ ([phone]) WHO REPORTS HE IS THE PTS SON-IN-LAW, THE OF PHANI. HILLARY TRAECY REPORTS HE AND HIS AND THIS PT SHARE A HOME. THE PT IS INDEPENDENT WITH CARE AND HAD NO SERVICES CALIBRATION TESTER. HE REPORTS THE PT DOES HVE A WHEELED WALKER. HILLARY TRACEY INDICATED THE PTS DAUGHTER WAS WITH HIM AND, AFTER CONFIRMING WITH HER, REPORTED THE PT DOES HAVE A HCP NAMING PHANI THE AGENT (COPY REQUESTED). HILLARY TRACEY REPORTS EVERYONE IN THE HOME (5 PEOPLE), EXCEPT HIS SMALL CHILD, TESTED POSITIVE WITH COVID. HE STATES ONLY THE PT AND HER DAUGHTER HAVE SEVERE SYMPTOMS. PTS MEDICARE RIGHTS WERE REVIEWED AND A COPY WILL BE MAILED TO THEIR HOME. CURRENT DC PLAN IS HOME. FAMILY TO TRANSPORT
[2020-03-29] MEDS: Remdesivir 200 MG in 0.9 % Sodium Chloride 210 ML 105 MG IV (14:41)
[2020-03-29] MEDS: Lactated Ringers 1,000 ML 75 ML IVCONT (14:42)
[2020-03-29 16:08] LABS: Glucose, Whole Blood 290 mg/dL (60-115)
[2020-03-29 20:21] LABS: Glucose, Whole Blood 345 mg/dL (60-115)
[2020-03-29] MEDS: Lacosamide 100 MG TABLET 200 MG PO (21:34)
[2020-03-29] MEDS: Insulin Glargine,Hum.rec.anlog 100 UNIT/ML 10 ML VIAL 30 UNIT SUBCUT (21:34)
[2020-03-29] MEDS: Enoxaparin Sodium 40 MG/0.4 ML SYRINGE SUBCUT (21:34)
[2020-03-30 03:11] VITALS: BP 132/63; PULSE 61; RESP 18; TEMP 36.1; O2SAT 95
[2020-03-30] MEDS: Omeprazole 20 MG CAPSULE.DR PO (05:44)
[2020-03-30 06:47] LABS: D Dimer 378 NG/ML
[2020-03-30 06:49] LABS: Basophils Percent Auto 0.1 % (0-2); MANUAL DIFF FLAG SCAN; SCAN SMEAR FLAG 1
[2020-03-30 06:51] LABS: Hematocrit 35.2 % (37-47); Hemoglobin 11.5 g/dl (12.0-16.0); Imm Gran Abs Auto 0.06 X10*3/uL (0.00-0.03); Imm Gran Pct Auto 0.6 % (0.0-0.4); Lymphocytes Absolute Auto 0.9 X10*3/uL (1.2-4.9); Lymphocytes Percent Auto 9.7 % (20-40); Mean Corpuscular HGB Conc 32.7 g/dl (31.0-35.0); Mean Corpuscular Hemoglobin 29.9 pg (27.0-33.0); Mean Corpuscular Volume 91.7 fL (80-98); Monocytes Percent Auto 10.1 % (2-11); Neutrophils Absolute Auto 7.7 X10*3/uL (2.0-8.3); Neutrophils Percent Auto 79.5 % (45-73); PLT CLUMP 1; Red Blood Count 3.84 X10*6/uL (4.20-5.50); Red Cell Distribution Width 12.7 % (11.0-16.0)
[2020-03-30 07:07] LABS: PLT ABN DIST 1
[2020-03-30 07:12] LABS: Glucose, Whole Blood 239 mg/dL (60-115)
[2020-03-30 07:19] LABS: Alanine Aminotransferase 18 U/L (0-31); Albumin Level 3.1 g/dL (3.5-5.0); Alkaline Phosphatase 85 U/L (39-117); Anion Gap 16 (12-20); Aspartate Amino Transferase 22 U/L (5-31); Bilirubin Total 0.3 mg/dL (0.0-1.0); Blood Urea Nitrogen 49 mg/dL (9-16); C Reactive Protein 9.41 mg/dL (< or = 0.50); Calcium 8.2 mg/dL (8.4-10.2); Carbon Dioxide 28 mmol/L (22-29); Chloride 98 mmol/L (96-108); Creatinine Clr Calc Pharmacy 43.9; Estimated Glomerular Filt Rate 38; Glucose Random 222 mg/dL (60-115); Potassium 4.8 mmol/L (3.3-5.1); Sodium 137 mmol/L (135-145); Total Protein 6.1 g/dL (6.5-8.0)
[2020-03-30 07:22] LABS: Procalcitonin 0.19 ng/mL
[2020-03-30 07:29] LABS: Estimated Average Glucose 352 mg/dL; Hemoglobin A1c % 13.9 %
[2020-03-30 07:44] VITALS: BP 128/62; PULSE 62; RESP 18; TEMP 36.3; O2SAT 93
[2020-03-30 07:51] LABS: White Blood Count 9.7 X10*3/uL (4.8-10.8)
[2020-03-30] MEDS: 0.9 % Sodium Chloride Flush 3 ML SYRINGE IVFLUSH ×3 (08:41→20:36)
[2020-03-30] MEDS: Lacosamide 100 MG TABLET 200 MG PO ×2 (08:41→20:36)
[2020-03-30] MEDS: dexAMETHasone sod phosphate 4 MG/ML VIAL 6 MG IVPUSH (08:41)
[2020-03-30] MEDS: Insulin Lispro 100 UNIT/ML 3 ML VIAL SUBCUT ×4 (08:41→20:35)
[2020-03-30 08:43] LABS: SLIDE REVIEW VERIFIED
[2020-03-30] MEDS: HYDROcodone Bit/Acetam 5/325 TABLET 1 TAB PO (08:48)
[2020-03-30 11:04] LABS: Glucose, Whole Blood 200 mg/dL (60-115)
[2020-03-30 11:38] VITALS: BP 151/67; PULSE 71; RESP 18; TEMP 36.7; O2SAT 90
--- NOTE | 2020-03-30 12:07 | P.PNIM_ITS ---
Subjective Subjective Date of Service: 03/30/20 Interval History: sob, but improved Cardiovascular Cardiovascular: Reports no additional cardiovascular complaints Gastrointestinal Gastrointestinal: Reports no additional gastrointestinal complaints Physical Exam Vital Signs: Vital Signs: Last Vital Signs Temp 98.0 F 03/30/20 11:38 Pulse 71 03/30/20 11:38 Resp 18 03/30/20 11:38 BP 151/67 H 03/30/20 11:38 Pulse Ox 90 L 03/30/20 11:38 Body Mass Index 38.4 General: AO X 3, no acute distress Resp: CTA bilateral CVS: S1,S2,RRR GI: soft, non tender, non distended Neuro: motor grossly intact Psych: appropriate affect Objective Data Current Medications Generic Name Dose Route Start Last Admin Trade Name Freq PRN Reason Stop Dose Admin Acetaminophen 650 mg 03/28/20 20:18 Acetaminophen 325 Mg Tablet PO Q6H PRN Pain, Mild (Pain Scale 1-3) Hydrocodone Bitart/Acetaminophen 1 tab 03/29/20 11:13 03/30/20 08:48 Hydrocodone Bit/Acetam 5/325 Tablet PO 1 tab Q6H PRN Administration pain Albuterol Sulfate 2 puff 03/28/20 20:18 Albuterol Sulfate 90 Mcg 8 Gm Inhaler INHALE RQ4H PRN Shortness of Breath Dexamethasone Sodium Phosphate 6 mg 03/29/20 09:00 03/30/20 08:41 Dexamethasone Sod Phosphate 4 Mg/Ml Vial IVPUSH 6 mg DAILY KATHERINE Administration Docusate Sodium 100 mg 03/28/20 20:18 Docusate Sodium 100 Mg Capsule PO DAILY PRN Constipation Enoxaparin Sodium 40 mg 03/28/20 22:00 03/29/20 21:34 Enoxaparin Sodium 40 Mg/0.4 Ml Syringe SUBCUT 40 mg Q24H KATHERINE Administration Remdesivir 100 mg/ Sodium 230 mls @ 115 mls/hr 03/30/20 13:00 Chloride IV 04/02/20 14:59 Q24H [facility] Insulin Glargine 30 unit 03/29/20 21:00 03/29/20 21:34 Insulin Glargine,Hum.Rec.Anlog 100 Unit/Ml 10 Ml Vial SUBCUT 30 unit BEDTIME KATHERINE Administration Insulin Human Lispro 0 unit 03/28/20 21:00 03/30/20 08:41 Insulin Lispro 100 Unit/Ml 3 Ml Vial SUBCUT 6 unit QIDACHS KATHERINE Administration Protocol Lacosamide 200 mg 03/29/20 21:00 03/30/20 08:41 Lacosamide 100 Mg Tablet PO 200 mg BID KATHERINE Administration Omeprazole 20 mg 03/29/20 08:00 03/30/20 05:44 Omeprazole 20 Mg Capsule. PO 20 mg DAILY@0630 [facility] Administration Ondansetron HCl 4 mg 03/28/20 20:18 03/29/20 12:27 Ondansetron Hcl 4 Mg/2 Ml Vial IVPUSH 4 mg Q8H PRN Administration Nausea and Vomiting Pharmacy Consult 1 each 03/28/20 17:45 Consult Rx Perform Med Rec MISCELLANE ONCE PRN Consult order Sodium Chloride 3 ml 03/29/20 00:00 03/30/20 08:41 0.9 % Sodium Chloride Flush 3 Ml Syringe IVFLUSH 3 ml QSHIFT KATHERINE Administration Labs CBC & Chem 7: 03/30/20 05:28 03/30/20 05:28 Microbiology Microbiology Results: Microbiology 03/28/20 16:31 Blood - Venous Blood Culture - Preliminary No growth after 24 hours. 03/28/20 16:22 Blood - Venous Blood Culture - Preliminary No growth after 24 hours. Assessment and Plan (1) Acute hypoxemic respiratory failure due to COVID-19: Status: Acute Assessment and Plan: 64yo F with DM2, CKD3, benign brain tumor, HTN multiple household contacts with COVID-19 and tested positive herself 03/20/19, had onset of dyspnea and cough 03/22/19 admitted for hypoxic respiratory failure Acute hypoxic respiratory failure secondary to COVID-19 pneumonia Continue dexamethasone d#3/, resmdesivir d#2/. hyperK Resolved MICHAEL/CKD3 [baseline SCr 1-1.3] - mild. monitor SCr and avoid nephrotoxins. DM2 - basal/bolus insulin, A1c is 13.9 sz prophylaxis s/p benign brain tumor resection - continue lacosamide (pt will have to bring it in from home) VTE ppx - LMWH
[2020-03-30] MEDS: Remdesivir 100 MG in 0.9 % Sodium Chloride 230 ML 115 MG IV (12:26)
[2020-03-30 14:30] VITALS: BMI 38.4
[2020-03-30 15:47] VITALS: BP 126/59; PULSE 64; RESP 18; TEMP 36.3; O2SAT 96
[2020-03-30 16:12] LABS: Glucose, Whole Blood 278 mg/dL (60-115)
[2020-03-30 20:00] VITALS: BP 147/80; PULSE 58; RESP 19; TEMP 36.6; O2SAT 92
[2020-03-30 20:20] LABS: Glucose, Whole Blood 259 mg/dL (60-115)
[2020-03-30] MEDS: Insulin Glargine,Hum.rec.anlog 100 UNIT/ML 10 ML VIAL 30 UNIT SUBCUT (20:35)
[2020-03-30] MEDS: Enoxaparin Sodium 40 MG/0.4 ML SYRINGE SUBCUT (20:36)
[2020-03-30 23:54] VITALS: BP 147/70; PULSE 59; RESP 19; TEMP 36.4; O2SAT 94
[2020-03-31 03:23] VITALS: BP 144/65; PULSE 52; RESP 9; TEMP 36.6; O2SAT 92
[2020-03-31] MEDS: Omeprazole 20 MG CAPSULE.DR PO (05:52)
[2020-03-31] MEDS: HYDROcodone Bit/Acetam 5/325 TABLET 1 TAB PO ×3 (05:53→20:00)
[2020-03-31 06:06] LABS: Hemoglobin 12.5 g/dl (12.0-16.0); PLT ABN DIST 1; SCAN SMEAR FLAG 1
[2020-03-31 06:08] LABS: Hematocrit 38.3 % (37-47); Imm Gran Abs Auto 0.08 X10*3/uL (0.00-0.03); Imm Gran Pct Auto 0.8 % (0.0-0.4); Lymphocytes Absolute Auto 1.4 X10*3/uL (1.2-4.9); Lymphocytes Percent Auto 13.9 % (20-40); Mean Corpuscular HGB Conc 32.6 g/dl (31.0-35.0); Mean Corpuscular Hemoglobin 29.8 pg (27.0-33.0); Mean Corpuscular Volume 91.2 fL (80-98); Mean Platelet Volume 12.6 fL (9.4-12.3); Monocytes Absolute Auto 0.9 X10*3/uL (0.1-1.2); Monocytes Percent Auto 8.7 % (2-11); Neutrophils Absolute Auto 7.5 X10*3/uL (2.0-8.3); Neutrophils Percent Auto 76.6 % (45-73); PLT CLUMP 1; Red Cell Distribution Width 12.7 % (11.0-16.0)
[2020-03-31 06:14] LABS: MANUAL DIFF FLAG NO
[2020-03-31 06:29] LABS: White Blood Count 9.8 X10*3/uL (4.8-10.8)
[2020-03-31 06:32] LABS: Anion Gap 17 (12-20); Blood Urea Nitrogen 49 mg/dL (9-16); Calcium 8.5 mg/dL (8.4-10.2); Carbon Dioxide 26 mmol/L (22-29); Chloride 100 mmol/L (96-108); Creatinine Clr Calc Pharmacy 49.9; Estimated Glomerular Filt Rate 44; Glucose Fasting 196 mg/dL (60-99); Potassium 4.8 mmol/L (3.3-5.1); Sodium 138 mmol/L (135-145)
[2020-03-31 07:11] LABS: Glucose, Whole Blood 209 mg/dL (60-115)
[2020-03-31 07:42] VITALS: BP 158/72; PULSE 56; RESP 18; TEMP 36.8; O2SAT 95
[2020-03-31] MEDS: Lacosamide 100 MG TABLET 200 MG PO ×2 (09:28→20:00)
[2020-03-31] MEDS: Insulin Lispro 100 UNIT/ML 3 ML VIAL SUBCUT ×4 (09:29→20:00)
[2020-03-31] MEDS: dexAMETHasone sod phosphate 4 MG/ML VIAL 6 MG IVPUSH (09:32)
[2020-03-31] MEDS: 0.9 % Sodium Chloride Flush 3 ML SYRINGE IVFLUSH ×3 (09:32→20:32)
[2020-03-31 11:04] LABS: Glucose, Whole Blood 186 mg/dL (60-115)
[2020-03-31 11:23] VITALS: BP 160/72; PULSE 58; RESP 18; TEMP 36.4; O2SAT 98
--- NOTE | 2020-03-31 11:32 | P.CNID_ITS ---
History of Present Illness Data of Consult Service Date: 03/31/20 Requesting physician: Johnny Engel Primary Care Provider: Jennifer Ibrahim MD [facility] Reason for consult: COVID She presents to hospital with weakness and body aches as well as shortness of breath She was diagnosed with COVID about a week ago She has some nausea and fatigue Review of Systems Review of Systems: Yes all other systems are reviewed and are negative PMFSH Past Medical History Medical History Brain tumor CKD (chronic kidney disease) stage 3, GFR 30-59 ml/min Depression Diabetes Gastritis HLD (hyperlipidemia) Kidney stone Seizure Functional capacity: independent ambulation Family History Family History Father CAD (coronary artery disease) Brother Lung cancer Family history: reviewed and not pertinent Surgical History Surgical History H/O hernia repair History of cholecystectomy Social History Social History Household Members: Family Housing: House Alcohol intake: never Smoking Status: Never smoker service: No Current occupational status: unemployed Meds Allergies Allergy/AdvReac Type Severity Reaction Status Date / Time egg Allergy Mild Abdominal Verified 03/20/20 21:01 Pain Active Medications: Current Medications Generic Name Dose Route Start Last Admin Trade Name Freq PRN Reason Stop Dose Admin Acetaminophen 650 mg 03/28/20 20:18 Acetaminophen 325 Mg Tablet PO Q6H PRN Pain, Mild (Pain Scale 1-3) Hydrocodone Bitart/Acetaminophen 1 tab 03/29/20 11:13 03/31/20 05:53 Hydrocodone Bit/Acetam 5/325 Tablet PO 1 tab Q6H PRN Administration pain Albuterol Sulfate 2 puff 03/28/20 20:18 Albuterol Sulfate 90 Mcg 8 Gm Inhaler INHALE RQ4H PRN Shortness of Breath Dexamethasone Sodium Phosphate 6 mg 03/29/20 09:00 03/31/20 09:32 Dexamethasone Sod Phosphate 4 Mg/Ml Vial IVPUSH 6 mg DAILY KATHERINE Administration Docusate Sodium 100 mg 03/28/20 20:18 Docusate Sodium 100 Mg Capsule PO DAILY PRN Constipation Enoxaparin Sodium 40 mg 03/28/20 22:00 03/30/20 20:36 Enoxaparin Sodium 40 Mg/0.4 Ml Syringe SUBCUT 40 mg Q24H KATHERINE Administration Remdesivir 100 mg/ Sodium 230 mls @ 115 mls/hr 03/30/20 13:00 03/30/20 15:00 Chloride IV 04/02/20 14:59 Infused Q24H KATHERINE Infusion Insulin Glargine 30 unit 03/29/20 21:00 03/30/20 20:35 Insulin Glargine,Hum.Rec.Anlog 100 Unit/Ml 10 Ml Vial SUBCUT 30 unit BEDTIME [facility] Administration Insulin Human Lispro 0 unit 03/28/20 21:00 03/31/20 09:29 Insulin Lispro 100 Unit/Ml 3 Ml Vial SUBCUT 1 unit QIDACHS [facility] Administration Protocol Lacosamide 200 mg 03/29/20 21:00 03/31/20 09:28 Lacosamide 100 Mg Tablet PO 200 mg BID [facility] Administration Omeprazole 20 mg 03/29/20 08:00 03/31/20 05:52 Omeprazole 20 Mg Capsule.Dr PO 20 mg DAILY@0630 [facility] Administration Ondansetron HCl 4 mg 03/28/20 20:18 03/29/20 12:27 Ondansetron Hcl 4 Mg/2 Ml Vial IVPUSH 4 mg Q8H PRN Administration Nausea and Vomiting Pharmacy Consult 1 each 03/28/20 17:45 Consult Rx Perform Med Rec MISCELLANE ONCE PRN Consult order Sodium Chloride 3 ml 03/29/20 00:00 03/31/20 09:32 0.9 % Sodium Chloride Flush 3 Ml Syringe IVFLUSH 3 ml QSHIFT [facility] Administration Home Medications Medication Instructions Recorded Confirmed Last Taken Type FreeStyle Lite Strips 03/28/20 03/28/20 Unknown History Humalog KwikPen Insulin 2 - 14 unit SUBCUT TIDAC 03/28/20 03/29/20 Unknown History Vimpat 200 mg PO BID 03/28/20 03/29/20 Unknown History blood-glucose meter [FreeStyle 03/28/20 03/28/20 Unknown History [place] Lite] lancets [FreeStyle Lancets] 03/28/20 03/28/20 Unknown History pantoprazole 40 mg PO DAILY 03/28/20 03/29/20 Unknown History Wolf Garcia U-300 Insulin 40 unit SUBCUT DAILY 03/29/20 03/29/20 Unknown History Physical Exam Vital Signs: Vital Signs: Last Vital Signs Temp 97.6 F 03/31/20 11:23 Pulse 58 03/31/20 11:23 Resp 18 03/31/20 11:23 BP 160/72 H 03/31/20 11:23 Pulse Ox 98 03/31/20 11:23 Body Mass Index 38.4 Const: General: healthy appearing Orientation/consciousness: patient oriented x3 HENMT: Head: Yes normal to inspection Mouth: Normal oral and palatal mucosa present Eyes: General: appearance normal, both eyes and all related structures Resp: Effort & Inspection: normal respiratory effort Cardio: Rate: regular rate Rhythm: regular rhythm GI: Palpation (GI): Soft to palpation and nontender : General: Yes no CVA tenderness Back/Spine/Pelvis: Back: no CVA tenderness Skin: General skin exam: no rashes or lesions noted Neuro: General: patient oriented x3 Extrem: General: Yes full ROM Results Labs CBC & Chem 7: 04/03/20 05:39 04/03/20 05:39 Labs: Short CBC 03/31/20 Range/Units 05:27 WBC 9.8 (4.8-10.8) X10*3/uL Hgb 12.5 (12.0-16.0) g/dl Hct 38.3 (37-47) % Plt Count TNP BMP 03/31/20 05:27 Sodium 138 Potassium 4.8 Chloride 100 Carbon Dioxide 26 BUN 49 H Creatinine 1.24 Calcium 8.5 Microbiology Microbiology Results: Microbiology 03/28/20 16:31 Blood - Venous Blood Culture - Preliminary No growth after 48 hours. 03/28/20 16:22 Blood - Venous Blood Culture - Preliminary No growth after 48 hours. Assessment and Plan (1) COVID-19 virus infection: Problem details: She has COVID of recent duration,about a week She is hypoxic She has unremarkable liver and kidney function Status: Acute Would give Remdesivir Would give Dexamethasone Would give supportive oxygen (2) Acute hypoxemic respiratory failure due to COVID-19: Status: Acute
--- NOTE | 2020-03-31 11:45 | PC.NURSE ---
Notified MD snyder) of elevated BUN today.
[2020-03-31] MEDS: Remdesivir 100 MG in 0.9 % Sodium Chloride 230 ML 115 MG IV (14:19)
--- NOTE | 2020-03-31 14:35 | HO.PM.IMPN ---
Subjective Subjective Date of Service: 03/31/20 Interval History: sob Cardiovascular Cardiovascular: Reports no additional cardiovascular complaints Respiratory Respiratory: Reports no additional respiratory complaints Physical Exam Vital Signs: Vital Signs: Last Vital Signs Temp 97.6 F 03/31/20 11:23 Pulse 58 03/31/20 11:23 Resp 18 03/31/20 11:23 BP 160/72 H 03/31/20 11:23 Pulse Ox 98 03/31/20 11:23 Body Mass Index 38.4 General: AO X 3, no acute distress Resp: CTA bilateral CVS: S1,S2,RRR GI: soft, non tender, non distended Neuro: motor grossly intact Psych: appropriate affect Objective Data Current Medications Generic Name Dose Route Start Last Admin Trade Name Freq PRN Reason Stop Dose Admin Acetaminophen 650 mg 03/28/20 20:18 Acetaminophen 325 Mg Tablet PO Q6H PRN Pain, Mild (Pain Scale 1-3) Hydrocodone Bitart/Acetaminophen 1 tab 03/29/20 11:13 03/31/20 13:19 Hydrocodone Bit/Acetam 5/325 Tablet PO 1 tab Q6H PRN Administration pain Albuterol Sulfate 2 puff 03/28/20 20:18 Albuterol Sulfate 90 Mcg 8 Gm Inhaler INHALE RQ4H PRN Shortness of Breath Dexamethasone Sodium Phosphate 6 mg 03/29/20 09:00 03/31/20 09:32 Dexamethasone Sod Phosphate 4 Mg/Ml Vial IVPUSH 6 mg DAILY KATHERINE Administration Docusate Sodium 100 mg 03/28/20 20:18 Docusate Sodium 100 Mg Capsule PO DAILY PRN Constipation Enoxaparin Sodium 40 mg 03/28/20 22:00 03/30/20 20:36 Enoxaparin Sodium 40 Mg/0.4 Ml Syringe SUBCUT 40 mg Q24H KATHERINE Administration Remdesivir 100 mg/ Sodium 230 mls @ 115 mls/hr 03/30/20 13:00 03/31/20 14:19 Chloride IV 04/02/20 14:59 115 mls/hr Q24H KATHERINE Administration Insulin Glargine 30 unit 03/29/20 21:00 03/30/20 20:35 Insulin Glargine,Hum.Rec.Anlog 100 Unit/Ml 10 Ml Vial SUBCUT 30 unit BEDTIME KATHERINE Administration Insulin Human Lispro 0 unit 03/28/20 21:00 03/31/20 11:56 Insulin Lispro 100 Unit/Ml 3 Ml Vial SUBCUT 4 unit QIDACHS KATHERINE Administration Protocol Lacosamide 200 mg 03/29/20 21:00 03/31/20 09:28 Lacosamide 100 Mg Tablet PO 200 mg BID KATHERINE Administration Omeprazole 20 mg 03/29/20 08:00 03/31/20 05:52 Omeprazole 20 Mg Capsule. PO 20 mg DAILY@0630 KATHERINE Administration Ondansetron HCl 4 mg 03/28/20 20:18 03/29/20 12:27 Ondansetron Hcl 4 Mg/2 Ml Vial IVPUSH 4 mg Q8H PRN Administration Nausea and Vomiting Pharmacy Consult 1 each 03/28/20 17:45 Consult Rx Perform Med Rec MISCELLANE ONCE PRN Consult order Sodium Chloride 3 ml 03/29/20 00:00 03/31/20 09:32 0.9 % Sodium Chloride Flush 3 Ml Syringe IVFLUSH 3 ml QSHIFT KATHERINE Administration Labs CBC & Chem 7: 03/31/20 05:27 03/31/20 05:27 Microbiology Microbiology Results: Microbiology 03/28/20 16:31 Blood - Venous Blood Culture - Preliminary No growth after 48 hours. 03/28/20 16:22 Blood - Venous Blood Culture - Preliminary No growth after 48 hours. Assessment and Plan (1) Acute hypoxemic respiratory failure due to COVID-19: Status: Acute Assessment and Plan: 64yo F with DM2, CKD3, benign brain tumor, HTN multiple household contacts with COVID-19 and tested positive herself 03/20/19, had onset of dyspnea and cough 03/22/19 admitted for hypoxic respiratory failure Acute hypoxic respiratory failure secondary to COVID-19 pneumonia Continue dexamethasone d#4/10, resmdesivir d#3/5. hyperK Resolved MICHAEL/CKD3 [baseline SCr 1-1.3] - mild. monitor SCr and avoid nephrotoxins. DM2 - basal/bolus insulin, A1c is 13.9 sz prophylaxis s/p benign brain tumor resection - continue lacosamide (pt will have to bring it in from home) VTE ppx - LMWH
[2020-03-31 15:54] VITALS: BP 164/70; PULSE 68; RESP 26; TEMP 36.2; O2SAT 91
[2020-03-31 16:06] LABS: Glucose, Whole Blood 228 mg/dL (60-115)
[2020-03-31] MEDS: Acetaminophen 325 MG TABLET 650 MG PO (16:41)
[2020-03-31 19:18] VITALS: BP 141/64; PULSE 53; RESP 18; TEMP 36.6; O2SAT 95
[2020-03-31] MEDS: Insulin Glargine,Hum.rec.anlog 100 UNIT/ML 10 ML VIAL 30 UNIT SUBCUT (20:00)
[2020-03-31] MEDS: Enoxaparin Sodium 40 MG/0.4 ML SYRINGE SUBCUT (20:02)
[2020-03-31 20:05] LABS: Glucose, Whole Blood 280 mg/dL (60-115)
[2020-04-01] VITALS (7 sets, daily range): BP systolic 133–161; BP diastolic 63–73; PULSE 57–66; RESP 18–25; TEMP 36.1–37.2; O2SAT 93–98
[2020-04-01] MEDS: HYDROcodone Bit/Acetam 5/325 TABLET 1 TAB PO ×3 (02:53→21:57)
[2020-04-01 07:31] LABS: Glucose, Whole Blood 126 mg/dL (60-115)
[2020-04-01] MEDS: Insulin Lispro 100 UNIT/ML 3 ML VIAL SUBCUT ×4 (07:56→21:58)
[2020-04-01] MEDS: Lacosamide 100 MG TABLET 200 MG PO ×2 (07:57→21:57)
[2020-04-01] MEDS: Acetaminophen 325 MG TABLET 650 MG PO (07:57)
[2020-04-01] MEDS: Omeprazole 20 MG CAPSULE.DR PO (07:57)
[2020-04-01] MEDS: 0.9 % Sodium Chloride Flush 3 ML SYRINGE IVFLUSH ×3 (07:58→21:59)
[2020-04-01] MEDS: dexAMETHasone sod phosphate 4 MG/ML VIAL 6 MG IVPUSH (07:59)
[2020-04-01 11:48] LABS: Glucose, Whole Blood 227 mg/dL (60-115)
--- NOTE | 2020-04-01 13:01 | MHC.CM.PN ---
Patient continues on IV Dexamethasone, IV Remdesivir and 2 liters O2 via [place] for +COVID on 03/20/20. Patient is independent and discharge plan is home no services. Daryl Gomez will provide transportation. CM will continue to follow patient for discharge needs.
[2020-04-01] MEDS: Remdesivir 100 MG in 0.9 % Sodium Chloride 230 ML 115 MG IV (13:44)
[2020-04-01 16:23] LABS: Glucose, Whole Blood 250 mg/dL (60-115)
[2020-04-01] MEDS: ondansetron HCL 4 MG/2 ML VIAL IVPUSH (16:34)
[2020-04-01 20:51] LABS: Glucose, Whole Blood 222 mg/dL (60-115)
[2020-04-01] MEDS: Enoxaparin Sodium 40 MG/0.4 ML SYRINGE SUBCUT (21:58)
[2020-04-01] MEDS: Insulin Glargine,Hum.rec.anlog 100 UNIT/ML 10 ML VIAL 30 UNIT SUBCUT (21:59)
[2020-04-02 03:38] VITALS: BP 137/63; PULSE 61; RESP 18; TEMP 36.3; O2SAT 97
[2020-04-02] MEDS: HYDROcodone Bit/Acetam 5/325 TABLET 1 TAB PO ×3 (06:08→21:27)
[2020-04-02] MEDS: Omeprazole 20 MG CAPSULE.DR PO (06:08)
[2020-04-02 07:14] LABS: Glucose, Whole Blood 140 mg/dL (60-115)
[2020-04-02 07:18] VITALS: BP 138/66; PULSE 59; RESP 18; TEMP 36.1; O2SAT 98
[2020-04-02] MEDS: dexAMETHasone sod phosphate 4 MG/ML VIAL 6 MG IVPUSH (07:47)
[2020-04-02] MEDS: Insulin Lispro 100 UNIT/ML 3 ML VIAL SUBCUT ×4 (07:47→21:29)
[2020-04-02] MEDS: 0.9 % Sodium Chloride Flush 3 ML SYRINGE IVFLUSH ×3 (07:47→21:28)
[2020-04-02] MEDS: Lacosamide 100 MG TABLET 200 MG PO ×2 (07:47→21:27)
--- NOTE | 2020-04-02 10:02 | HO.PM.IMPN ---
Subjective Subjective Date of Service: 04/02/20 Interval History: abd pain Cardiovascular Cardiovascular: Reports no additional cardiovascular complaints Respiratory Respiratory: Reports no additional respiratory complaints Physical Exam Vital Signs: Vital Signs: Last Vital Signs Temp 96.9 F 04/02/20 07:18 Pulse 59 04/02/20 07:18 Resp 18 04/02/20 07:18 BP 138/66 04/02/20 07:18 Pulse Ox 98 04/02/20 07:18 Body Mass Index 38.4 General: AO X 3, no acute distress Resp: CTA bilateral CVS: S1,S2,RRR GI: soft, non tender, non distended Neuro: motor grossly intact Psych: appropriate affect Objective Data Current Medications Generic Name Dose Route Start Last Admin Trade Name Freq PRN Reason Stop Dose Admin Acetaminophen 650 mg 03/28/20 20:18 04/01/20 07:57 Acetaminophen 325 Mg Tablet PO 650 mg Q6H PRN Administration Pain, Mild (Pain Scale 1-3) Hydrocodone Bitart/Acetaminophen 1 tab 03/29/20 11:13 04/02/20 06:08 Hydrocodone Bit/Acetam 5/325 Tablet PO 1 tab Q6H PRN Administration pain Albuterol Sulfate 2 puff 03/28/20 20:18 Albuterol Sulfate 90 Mcg 8 Gm Inhaler INHALE RQ4H PRN Shortness of Breath Dexamethasone Sodium Phosphate 6 mg 03/29/20 09:00 04/02/20 07:47 Dexamethasone Sod Phosphate 4 Mg/Ml Vial IVPUSH 6 mg DAILY KATHERINE Administration Docusate Sodium 100 mg 03/28/20 20:18 Docusate Sodium 100 Mg Capsule PO DAILY PRN Constipation Enoxaparin Sodium 40 mg 03/28/20 22:00 04/01/20 21:58 Enoxaparin Sodium 40 Mg/0.4 Ml Syringe SUBCUT 40 mg Q24H KATHERINE Administration Remdesivir 100 mg/ Sodium 230 mls @ 115 mls/hr 03/30/20 13:00 04/01/20 15:44 Chloride IV 04/02/20 14:59 Infused Q24H KATHERINE Infusion Insulin Glargine 30 unit 03/29/20 21:00 04/01/20 21:59 Insulin Glargine,Hum.Rec.Anlog 100 Unit/Ml 10 Ml Vial SUBCUT 30 unit BEDTIME KATHERINE Administration Insulin Human Lispro 0 unit 03/28/20 21:00 02/18/21 07:47 Insulin Lispro 100 Unit/Ml 3 Ml Vial SUBCUT 2 unit QIDACHS KATHERINE Administration Protocol Lacosamide 200 mg 03/29/20 21:00 04/02/20 07:47 Lacosamide 100 Mg Tablet PO 200 mg BID KATHERINE Administration Omeprazole 20 mg 03/29/20 08:00 04/02/20 06:08 Omeprazole 20 Mg Capsule. PO 20 mg DAILY@0630 [facility] Administration Ondansetron HCl 4 mg 03/28/20 20:18 04/01/20 16:34 Ondansetron Hcl 4 Mg/2 Ml Vial IVPUSH 4 mg Q8H PRN Administration Nausea and Vomiting Pharmacy Consult 1 each 03/28/20 17:45 Consult Rx Perform Med Rec MISCELLANE ONCE PRN Consult order Sodium Chloride 3 ml 03/29/20 00:00 04/02/20 07:47 0.9 % Sodium Chloride Flush 3 Ml Syringe IVFLUSH 3 ml QSHIFT KATHERIEN Administration Labs CBC & Chem 7: 03/31/20 05:27 03/31/20 05:27 Microbiology Microbiology Results: Microbiology 03/28/20 16:31 Blood - Venous Blood Culture - Preliminary No growth after 48 hours. 03/28/20 16:22 Blood - Venous Blood Culture - Preliminary No growth after 48 hours. Assessment and Plan (1) Acute hypoxemic respiratory failure due to COVID-19: Status: Acute Assessment and Plan: 64yo F with DM2, CKD3, benign brain tumor, HTN multiple household contacts with COVID-19 and tested positive herself 03/20/19, had onset of dyspnea and cough 03/22/19 admitted for hypoxic respiratory failure Acute hypoxic respiratory failure secondary to COVID-19 pneumonia Continue dexamethasone d#5/10, resmdesivir d#4/5. hyperK Resolved MICHAEL/CKD3 [baseline SCr 1-1.3] - mild. monitor SCr and avoid nephrotoxins. DM2 - basal/bolus insulin, A1c is 13.9 sz prophylaxis s/p benign brain tumor resection - continue lacosamide (pt will have to bring it in from home) VTE ppx - LMWH
[2020-04-02 11:19] LABS: Glucose, Whole Blood 268 mg/dL (60-115)
[2020-04-02 11:30] VITALS: BP 177/59; PULSE 80; RESP 20; TEMP 36.8; O2SAT 94
[2020-04-02] MEDS: Remdesivir 100 MG in 0.9 % Sodium Chloride 230 ML 115 MG IV (12:54)
[2020-04-02 15:50] VITALS: BP 127/59; PULSE 66; RESP 22; TEMP 36.9; O2SAT 96
[2020-04-02 16:16] LABS: Glucose, Whole Blood 296 mg/dL (60-115)
[2020-04-02] MEDS: Acetaminophen 325 MG TABLET 650 MG PO (17:05)
[2020-04-02 19:37] VITALS: BP 136/61; PULSE 60; RESP 18; TEMP 36.6; O2SAT 96
[2020-04-02 20:09] LABS: Glucose, Whole Blood 189 mg/dL (60-115)
[2020-04-02] MEDS: Enoxaparin Sodium 40 MG/0.4 ML SYRINGE SUBCUT (21:27)
[2020-04-02] MEDS: Insulin Glargine,Hum.rec.anlog 100 UNIT/ML 10 ML VIAL 30 UNIT SUBCUT (21:28)
[2020-04-03] VITALS: BP 173/83; PULSE 65; RESP 16; TEMP 36.2; O2SAT 96
[2020-04-03 04:00] VITALS: BP 148/77; PULSE 62; RESP 16; TEMP 36.2; O2SAT 99
[2020-04-03 06:09] LABS: MANUAL DIFF FLAG NO
[2020-04-03 06:40] LABS: Anion Gap 14 (12-20); Blood Urea Nitrogen 28 mg/dL (9-16); Calcium 8.6 mg/dL (8.4-10.2); Carbon Dioxide 30 mmol/L (22-29); Chloride 97 mmol/L (96-108); Creatinine Clr Calc Pharmacy 62.6; Estimated Glomerular Filt Rate 57; Glucose Fasting 136 mg/dL (60-99); Potassium 4.3 mmol/L (3.3-5.1); Sodium 137 mmol/L (135-145)
[2020-04-03] MEDS: ondansetron HCL 4 MG/2 ML VIAL IVPUSH (06:58)
[2020-04-03] MEDS: Omeprazole 20 MG CAPSULE.DR PO (06:58)
[2020-04-03] MEDS: 0.9 % Sodium Chloride Flush 3 ML SYRINGE IVFLUSH (06:58)
[2020-04-03 07:06] LABS: Basophils Percent Auto 0.1 % (0-2); Eosinophils Percent Auto 0.3 % (0-4); Hematocrit 41.1 % (37-47); Hemoglobin 13.5 g/dl (12.0-16.0); Imm Gran Abs Auto 0.11 X10*3/uL (0.00-0.03); Imm Gran Pct Auto 1.2 % (0.0-0.4); Lymphocytes Absolute Auto 1.8 X10*3/uL (1.2-4.9); Mean Corpuscular HGB Conc 32.8 g/dl (31.0-35.0); Mean Corpuscular Hemoglobin 29.7 pg (27.0-33.0); Mean Corpuscular Volume 90.3 fL (80-98); Mean Platelet Volume 11.9 fL (9.4-12.3); Monocytes Absolute Auto 0.8 X10*3/uL (0.1-1.2); Monocytes Percent Auto 8.4 % (2-11); Neutrophils Absolute Auto 6.4 X10*3/uL (2.0-8.3); Platelet Count 344 X10*3/uL (160-400); Red Blood Count 4.55 X10*6/uL (4.20-5.50); Red Cell Distribution Width 12.4 % (11.0-16.0); White Blood Count 9.2 X10*3/uL (4.8-10.8)
[2020-04-03 07:40] VITALS: BP 124/64; PULSE 69; RESP 18; TEMP 36.4; O2SAT 95
[2020-04-03 07:59] LABS: Glucose, Whole Blood 176 mg/dL (60-115)
[2020-04-03] MEDS: Insulin Lispro 100 UNIT/ML 3 ML VIAL SUBCUT ×2 (08:44→12:24)
[2020-04-03] MEDS: Lacosamide 100 MG TABLET 200 MG PO (08:44)
[2020-04-03] MEDS: dexAMETHasone sod phosphate 4 MG/ML VIAL 6 MG IVPUSH (08:45)
[2020-04-03 11:06] VITALS: BP 131/60; PULSE 78; RESP 20; TEMP 36.7; O2SAT 95
--- NOTE | 2020-04-03 11:21 | P.DS_ITS ---
DS: Providers Provider Date of Service: 04/03/20 Date of admission: 03/28/20 18:24 Primary care physician: Jennifer Ibrahim MD Consults: 03/28/20 20:18 Consult to Infectious Diseases Routine Consulting Provider: Corinne Donato Reason for consultation: covid Has provider been notified: No DS: Diagnosis Discharge Diagnosis (1) Acute hypoxemic respiratory failure due to COVID-19: Status: Acute DS: Medications Discharge Medications Home Medications: Home Medications Medication Instructions Recorded Confirmed FreeStyle Lite Strips 03/28/20 03/28/20 Humalog KwikPen Insulin 2 - 14 unit SUBCUT TIDAC 03/28/20 03/29/20 Vimpat 200 mg PO BID 03/28/20 03/29/20 blood-glucose meter [FreeStyle 03/28/20 03/28/20 [place] Lite] lancets [FreeStyle Lancets] 03/28/20 03/28/20 pantoprazole 40 mg PO DAILY 03/28/20 03/29/20 Toujeo SoloStar U-300 Insulin 40 unit SUBCUT DAILY 03/29/20 03/29/20 Previous Rx's Medication Instructions Recorded dicyclomine 20 mg PO TID PRN #30 tab 03/08/20 ondansetron 4 mg PO Q8H PRN #20 tab 03/08/20 hydrocodone-acetaminophen 1 tab PO Q6H PRN #12 tab 03/23/20 dexamethasone [Decadron] 6 mg PO DAILY #3 tab 04/03/20 DS: Summary Hospital Course Hospital Course: Patient was admitted for acute hypoxic respiratory failure secondary to COVID pneumonia. She was given remdesivir for 5 days and Decadron. Her oxygen was weaned down to room air. Patient's shortness of breath resolved. She will be discharged home on 3 more days of p.o. Decadron Time Spent with Patient Time attestation: Total time spent providing and/or coordinating discharge services: Discharge coordination time: Greater than 30 minutes Physical Exam Vital Signs: Vital Signs: Last Vital Signs Temp 98.0 F 04/03/20 11:06 Pulse 78 04/03/20 11:06 Resp 20 04/03/20 11:06 BP 131/60 04/03/20 11:06 Pulse Ox 95 04/03/20 11:06 Body Mass Index 38.4 General: AO X 3, no acute distress Resp: CTA bilateral CVS: S1,S2,RRR GI: soft, non tender, non distended Neuro: motor grossly intact Psych: appropriate affect DS: Data Data Completed and Pending Labs on day of discharge: Laboratory Results - last 24 hr 04/02/20 04/02/20 04/03/20 16:11 20:05 05:39 WBC 9.2 RBC 4.55 Hgb 13.5 Hct 41.1 MCV 90.3 MCH 29.7 MCHC 32.8 RDW 12.4 Plt Count 344 MPV 11.9 Immature Gran % (Auto) 1.2 H Neut % (Auto) 70.0 Lymph % (Auto) 20.0 [place] % (Auto) 8.4 Eos % (Auto) 0.3 Baso % (Auto) 0.1 Lymph # (Auto) 1.8 [place] # (Auto) 0.8 Eos # (Auto) 0.0 Baso # (Auto) 0.0 Abs Immat Gran (auto) 0.11 H Absolute Neuts (auto) 6.4 Absolute Nucleated RBC 0.000 Nucleated RBC % (auto) 0.0 Sodium Potassium Chloride Carbon Dioxide Anion Gap BUN Creatinine Estim Creat Clear Calc Estimated GFR POC Glucose 296 H 189 H Fasting Glucose Calcium 04/03/20 04/03/20 05:39 07:37 WBC RBC Hgb Hct MCV MCH MCHC RDW Plt Count MPV Immature Gran % (Auto) Neut % (Auto) Lymph % (Auto) [place] % (Auto) Eos % (Auto) Baso % (Auto) Lymph # (Auto) [place] # (Auto) Eos # (Auto) Baso # (Auto) Abs Immat Gran (auto) Absolute Neuts (auto) Absolute Nucleated RBC Nucleated RBC % (auto) Sodium 137 Potassium 4.3 Chloride 97 Carbon Dioxide 30 H Anion Gap 14 BUN 28 H Creatinine 0.99 Estim Creat Clear Calc 62.6 Estimated GFR 57 POC Glucose 176 H Fasting Glucose 136 H Calcium 8.6 Discharge Plan Discharge Patient Disposition: Home, Self-Care Referrals: Jennifer Rico MD [Primary Care Provider] - Discharge Medications: New dexamethasone [Decadron] 6 mg tablet 6 mg PO DAILY Qty: 3 RF: 0 Continued ondansetron 4 mg tablet,disintegrating 4 mg PO Q8H PRN (Reason: nausea and vomiting) Qty: 20 RF: 0 dicyclomine 20 mg tablet 20 mg PO TID PRN (Reason: abdominal discomfort) Qty: 30 RF: 0 hydrocodone-acetaminophen 5-325 mg tablet 1 tab PO Q6H PRN (Reason: pain) Qty: 12 RF: 0 (DME) FreeStyle Lite Strips Strip MISCELLANEOUS QID RF: 0 (DME) blood-glucose meter [FreeStyle [place] Lite] Kit MISCELLANEOUS BID RF: 0 pantoprazole 40 mg tablet,delayed release (DR/EC) 40 mg PO DAILY RF: 0 Vimpat 200 mg tablet 200 mg PO BID RF: 0 (DME) lancets [FreeStyle Lancets] 28 gauge misc 1 gauge topical BID RF: 0 Humalog KwikPen Insulin 200 unit/mL (3 mL) insulin pen 2 - 14 unit subcut TIDAC RF: 0 Toujeo SoloStar U-300 Insulin 300 unit/mL (1.5 mL) insulin pen 40 unit subcut DAILY RF: 0 Discontinued cefuroxime axetil 250 mg tablet 250 mg PO BID 7 Days Qty: 14 RF: 0 Discharge Orders: Discharge Order (Routine); Ordered 04/03/20 Ordered By: Johnny Engel Activity on Discharge: As tolerated Stand Alone Forms: Patient Portal Discharge page Care Plan Goals: recovery Health Concerns: covid Plan of Treatment: 3 more days decadron
[2020-04-03 11:22] LABS: Glucose, Whole Blood 222 mg/dL (60-115)
--- NOTE | 2020-04-03 11:43 | MHC.CM.PN ---
Patient will be discharged home today no services. Oni Brito will provide transportation. Daryl and nurse are aware.
== END 2020-04-03 14:04 | disposition home or self-care (01) | DRG 177 ==
LOC: HO.ED 17:30 → HO.EDOVER 18:30 → HO.ICU 22:10 → HO.IMC 03-29
PROVIDERS: Physician Assistant; Physician Assistant Medical; Admitting Provider Family Medicine; Emergency Provider Emergency Medicine Emergency Medical Services; PCP Internal Medicine; Visit Provider Internal Medicine
DX: U07.1 COVID-19 (principal); J96.01 Acute respiratory failure with hypoxia; J12.82 Pneumonia due to coronavirus disease 2019; N17.9 Acute kidney failure, unspecified; I12.9 Hypertensive chronic kidney disease with stage 1 through stage 4 chronic kidney disease, or unspecified chronic kidney disease; E87.5 Hyperkalemia; E11.22 Type 2 diabetes mellitus with diabetic chronic kidney disease; N18.30 Chronic kidney disease, stage 3 unspecified; Z79.4 Long term (current) use of insulin; Z79.899 Other long term (current) drug therapy
CPT/HCPCS: 36415; 71045; 71275; 74177; 80048; 80053; 80076; 82728; 82947; 83036; 83605; 84145; 84484; 85025; 85379; 85610; 85652; 85730; 86140; 87040; 93005; 96361; 96374; 99285; 99291; J0610; J1100; J1650; J2270; J2405; J3490; Q9967

== ENCOUNTER 2021-10-02 02:46 | Inpatient (IN) | payer MEDICARE, MEDICAID, SELFPAY ==
[2021-10-02] VITALS (9 sets, daily range): BP systolic 145–188; BP diastolic 56–88; PULSE 70–88; RESP 12–19; TEMP 36.2–36.9; O2SAT 95–99; BMI 99.5
--- NOTE | ~2021-10-02 | FL_ITS ---
EXAMINATION: XR FLUOROSCOPY WITH IMAGES CLINICAL INFORMATION: Right-sided stone. COMPARISON: CT scan of 10/02/2021. TECHNIQUE: Fluoroscopy performed by Dr. Jeffrey Lobato. Fluoroscopy time: 118.8 seconds. Cumulative Dose: 89.90 mGy-cm2 Images: 3. FINDINGS: C-arm imaging demonstrates contrast within the right upper collecting system with filling defect which may be related to gas or calculi. Images demonstrate placement of right ureteral stent. FL/FL guidance in OR IMPRESSION: Intraoperative fluoroscopy for urologic procedure.
--- NOTE | ~2021-10-02 | CT_ITS ---
EXAMINATION: CT ABDOMEN AND PELVIS WITHOUT CONTRAST CLINICAL INFORMATION: Abdominal pain, renal colic COMPARISON: CT abdomen 03/28/2020 TECHNIQUE: Multidetector volumetric imaging was performed from the superior aspect of the liver through the pubic symphysis. Sagittal and coronal reformatted images were obtained on the technologist's workstation. This CT examination was performed using dose optimization techniques as appropriate, variously including the following: *Automated exposure control *Adjustment of mA and/or kV according to patient size (this includes techniques or standardized protocols for targeted exams where dose is matched to indication/reason for exam; i.e. extremities or head) *Use of iterative reconstruction technique DLP: 975 mGy-cm FINDINGS: LUNG BASES: Bibasilar basilar atelectasis. Interval resolution of the previously seen abnormal airspace opacities. LIVER, GALLBLADDER, AND BILIARY TREE: The liver is normal in size, shape, and attenuation. No focal hepatic lesion or biliary ductal dilatation is present. The gallbladder is not visualized. PANCREAS: Unremarkable. SPLEEN: Unremarkable. ADRENAL GLANDS: Unremarkable. KIDNEYS AND URETERS: Redemonstrated multiple nonobstructing right renal calculi. The larger calculi include a 1 cm calculus in the upper pole, 1 cm calculus in the midpole, multiple calculi in the lower pole, larger measuring 1 cm. There is a calculus in the right renal ureteropelvic junction measuring 1 x 1.2 cm, new from previous. There is mild prominence of the right renal pelvis. 2 small calculi in the midpole of the left kidney. Mild fullness of the left renal pelvis, similar to previous. No radiopaque calculus in the left ureter. Bilateral perinephric stranding BLADDER: Unremarkable. ABDOMINAL WALL/GASTROINTESTINAL TRACT: Redemonstrated is a supraumbilical anterior abdominal wall hernia containing nonobstructive loop of transverse colon. There is an additional small anterior abdominal wall hernia superior to this containing fat is redemonstrated. Few colonic diverticuli. No diverticulitis. No dilated small bowel loops. Nonobstructive bowel gas pattern. Small to moderate volume stool in the large colon. Normal appendix. LYMPH NODES: Stable left external iliac lymph node measuring 1.2 cm in short axis stable right external iliac lymph node measuring 1 4 cm in short axis. No pathologically enlarged lymph nodes in the retroperitoneum or mesentery. Stable Mildly prominent left groin lymph nodes. Normal caliber aorta. VASCULAR: Normal caliber aorta. PELVIC VISCERA: Unremarkable. OSSEOUS STRUCTURES: Degenerative changes spine. No aggressive bony lesion. CT/CT abdomen pelvis wo con IMPRESSION: 1. There is a 1 x 1.2 cm calculus in the right ureteropelvic junction, with mild prominence of the right renal pelvis. This is new as compared to the prior study. Otherwise, multiple bilateral nonobstructive renal calculi are redemonstrated. Bilateral perinephric stranding. No left ureteral calculi or hydronephrosis. 2. Similar appearance of an anterior abdominal wall supraumbilical hernia containing a nonobstructive loop of transverse colon. 3. Similar appearance of bilateral external iliac enlarged lymph nodes containing fatty hilum. Fleischner guidelines were followed.
[2021-10-02 03:52] LABS: Hemoglobin 11.2 g/dl (12.0-16.0); PLT ABN DIST 1
[2021-10-02 03:53] LABS: Hematocrit 32.6 % (37.0-47.0); Mean Corpuscular HGB Conc 34.4 g/dl (31.0-35.0); Mean Corpuscular Hemoglobin 30.8 pg (27.0-33.0); Mean Corpuscular Volume 89.6 fL (80.0-98.0); Mean Platelet Volume 14.2 fL (9.4-12.3); PLT CLUMP 1; Red Blood Count 3.64 X10*6/uL (4.20-5.50)
[2021-10-02 03:54] LABS: White Blood Count 13.8 X10*3/uL (4.8-10.8)
--- NOTE | 2021-10-02 03:54 | PC.NURSE ---
PATIENT STATES SHE IS UNABLE TO URINATED AT THIS TIME .
--- NOTE | 2021-10-02 04:11 | ECG_ITS ---
Test Reason : ABD PAIN Blood Pressure : / mmHG Vent. Rate : 083 BPM Atrial Rate : 083 BPM P-R Int : 170 ms QRS Dur : 098 ms QT Int : 384 ms P-R-T Axes : 059 009 043 degrees QTc Int : 451 ms Normal sinus rhythm Normal ECG When compared with ECG of 29-MAR-2020 08:00, No significant change was found Referred By: Generic ED Physician Electronically Signed By:DWAINE WALKER
[2021-10-02 04:13] LABS: Alanine Aminotransferase 10 U/L (0-31); Albumin Level 3.6 g/dL (3.5-5.0); Alkaline Phosphatase 137 U/L (39-117); Anion Gap 16 (12-20); Aspartate Amino Transferase 12 U/L (5-31); Bilirubin Direct < 0.2 mg/dL (0.0-0.5); Bilirubin Total 0.4 mg/dL (0.0-1.0); Blood Urea Nitrogen 26 mg/dL (9-16); Calcium 9.4 mg/dL (8.4-10.2); Carbon Dioxide 25 mmol/L (22-29); Chloride 104 mmol/L (96-108); Creatinine Clr Calc Pharmacy 89.8; Estimated Glomerular Filt Rate 44; Glucose Random 200 mg/dL (60-115); Lipase 27 U/L (8-78); Potassium 4.3 mmol/L (3.3-5.1); Sodium 141 mmol/L (135-145); Total Protein 6.9 g/dL (6.5-8.0)
[2021-10-02 04:47] LABS: COVID-19 Test Negative (Negative); IDNOW Serial# 9DB6401D
--- NOTE | 2021-10-02 06:23 | PC.NURSE ---
Bladder scan resulted 192 ML RN aware and Provider aware. No action at this time. Let pt know the importance of getting a urine sample. Pt said she would try to go to the bathroom and PCT Radha Morse walked pt to bathroom.
[2021-10-02 06:45] LABS: Appearance Urine Turbid; Color Urine Yellow; Glucose Urine UA 250 mg/dL (Negative); Leukocyte Esterase Urine Moderate (2+) (Negative); Nitrite Urine Negative (Negative); Specific Gravity - Urine >= 1.030 (1.005-1.025); Urine Blood Small (1+) (Negative); Urine Ketones Trace mg/dL (Negative); Urine Protein >=1000 (4+) mg/dL (Neg-Trace)
[2021-10-02 07:04] LABS: Bacteria Urine 4+ (None Seen); Hyaline Casts Urine 0-2 /LPF (0-2); Squamous Epithelial Cell Urine >20 /HPF (0-2); UACC Culture Trigger YES; WBC Urine >50 /HPF (0-5)
--- NOTE | 2021-10-02 07:20 | ED.ABDPAIN ---
HPI - Abdominal Pain General Chief Complaint: Abdominal Pain Stated Complaint: abd pain , vomitting Time Seen by Provider: 10/02/21 07:18 Source: patient Mode of arrival: ambulatory Limitations: no limitations History of Present Illness HPI narrative: 65-year-old female speaking came in for evaluation of abdominal pain. Pain started since last night with upper abdominal/epigastric pain radiated to the right side of abdomen, pain is constant since yesterday described as severe 8/10, pain is slightly affected by food, pain is associated with vomiting, patient had a frequent bowel movement described as solid stool with no diarrhea, no sick contact, no history of bad food exposure, no recent use of antibiotic. Patient had similar pain when she was visiting [place] 3 weeks ago was told kidney stone. Patient had history of hernia repair, cholecystectomy, and lithotripsy. Related Data Home Medications Medication Instructions Recorded Confirmed blood sugar diagnostic (FreeStyle 03/28/20 03/28/20 Lite Strips) blood-glucose meter (FreeStyle 03/28/20 03/28/20 [place] Lite kit) insulin lispro 200 unit/mL (3 mL) 14 unit subcut TIDAC 03/28/20 10/02/21 subcutaneous pen (Humalog KwikPen U-200 Insulin) lacosamide 200 mg tablet (Vimpat) 200 mg PO BID 03/28/20 10/02/21 lancets 28 gauge (FreeStyle 03/28/20 03/28/20 Lancets) insulin glargine U-300 conc 300 30 unit subcut BID 03/29/20 10/02/21 unit/mL (1.5 mL) subcutaneous pen (Toujeo SoloStar U-300 Insulin) atorvastatin 40 mg tablet 40 mg PO BEDTIME 10/02/21 10/02/21 duloxetine 60 mg capsule,delayed 60 mg PO DAILY 10/02/21 10/02/21 release sprinkle losartan 50 mg tablet 50 mg PO BID 10/02/21 10/02/21 nabumetone 750 mg tablet 750 mg PO BID PRN Pain 10/02/21 10/02/21 omeprazole 40 mg capsule,delayed 40 mg PO DAILY 10/02/21 10/02/21 release quetiapine 25 mg tablet (Seroquel) 25 mg PO DAILY 10/02/21 10/02/21 Allergies Allergy/AdvReac Type Severity Reaction Status Date / Time egg Allergy Mild Abdominal Verified 03/20/20 21:01 Pain Review of Systems Review of Systems All other systems are reviewed and are negative Constitutional: Reports as per HPI and Reports no additional constitutional complaints Eyes: Reports as per HPI and Reports no additional eye complaints Reports system reviewed and no additional complaints, except as documented Cardiovascular: Reports as per HPI and Reports no additional cardiovascular complaints Respiratory: Reports as per HPI and Reports no additional respiratory complaints Gastrointestinal: Reports as per HPI and Reports no additional gastrointestinal complaints Genitourinary: Reports no additional female genitourinary complaints Musculoskeletal: Reports no additional musculoskeletal complaints Skin/Breast: Reports system reviewed and no additional complaints, except as docu Psychiatric: Reports no additional psychiatric complaints Endocrine: Reports no additional endocrine complaints Hematologic/Lymphatic: Reports no additional hematologic/lymphatic complaints Allergic/Immunologic: Reports no additional allergic/immunologic complaints Reports system reviewed and no additional complaints, except as documented and Reports Abnormal speech present [facility] Past Medical History Medical History Brain tumor CKD (chronic kidney disease) stage 3, GFR 30-59 ml/min Depression Diabetes Gastritis HLD (hyperlipidemia) Kidney stone Seizure Surgical History H/O hernia repair History of cholecystectomy Family History Family History (Updated 10/02/21 @ 10:14 by Seth Ronquillo MD) Father CAD (coronary artery disease) Brother Lung cancer Sister Kidney stone Social History Social History Household Members: Family Housing: House Do you presently have visiting nurse or other home services: Yes Alcohol intake: never Advance Directives: No service: No Current occupational status: unemployed Physical Exam ED Vital Signs: Vital Signs - 24 hr 10/02/21 03:24 10/02/21 05:04 10/02/21 06:13 Temperature 97.4 F 98.4 F 97.8 F Pulse Rate 88 81 76 Respiratory Rate 12 16 16 Blood Pressure 147/63 H 168/64 H 145/59 H Pulse Oximetry 96 95 98 Oxygen Delivery Method Room Air Room Air Room Air 10/02/21 07:59 Temperature 97.2 F Pulse Rate 77 Respiratory Rate 19 Blood Pressure 160/74 H Pulse Oximetry 99 Oxygen Delivery Method Room Air BMI result Body Mass Index 99.5 Vital signs have been reviewed as appeared to be correct. Blood pressure normal. Heart rate normal. Respiration rate normal. Temperature normal. Oxygen saturation normal. Appearance: Alert. Oriented X3. No acute distress. Head: Normal external exam. Normocephalic. Atraumatic. No Horton signs noted. No raccoon eyes noted Eyes: PERRLA. EOMI. Conjunctiva and sclera normal. Eyelids normal. ENT: TM's Normal. Pharynx normal. Uvula midline. Moist mucous membranes. No trismus noted. No drooling noted. No muffled voice noted. Neck: Normal inspection. Neck supple. FROM. No adenopathy. Thyroid Normal. No meningeal signs. No neck mass noted. CVS: Normal heart rate and rhythm. Heart sound normal. No murmurs noted. Pulses normal throughout. Respiratory: No respiratory distress. Painless inspiration. Breath sounds normal. No wheezes/rales/rhonchi noted. Chest nontender. No accessory muscle usage noted or decreased air movement noted. Abdomen: Soft, mild epigastric tenderness, no guarding, no rebound tenderness, 2 surgical scar for previous surgeries appear intact.. Bowel sounds normal in all 4 quadrants. No distention noted. No organomegaly noted. No visible injury noted. Back: Bilateral CVA tenderness. Full range of motion noted. Skin: Skin warm and dry. Normal skin color. Normal skin turgor. No rashes/lesions/lacerations noted. Extremities: No lower extremity edema. Extremities exhibit normal range of motion. Extremities nontender. Neuro: Oriented X 3. Cranial nerve exam: II-XII are grossly intact No motor deficit. No sensory deficit. Reflexes normal. Course Course Course Narrative: [age] year old female came in with abdominal pain physical exam and CT of the abdomen both consistent with mix of gastritis and right UPJ renal colic complicated with UTI, and with patient history of chronic renal failure the case discussed with Dr. Lobato who recommended to start the patient on antibiotic and admit to medical service for further intervention. Patient do not meet criteria for SIRS, does not meet criteria for severe sepsis or septic shock. MDM - Abdominal Pain Medical Records Attestation: I reviewed the patient's medical records. Lab Data Attestation: I reviewed the patient's lab results. Result diagrams: 10/02/21 03:46 10/02/21 03:46 Labs: Lab Results 10/02/21 10/02/21 10/02/21 Range/Units 03:46 03:46 04:26 WBC 13.8 H (4.8-10.8) X10*3/uL RBC 3.64 L (4.20-5.50) X10*6/uL Hgb 11.2 L (12.0-16.0) g/dl Hct 32.6 L (37.0-47.0) % MCV 89.6 (80.0-98.0) fL MCH 30.8 (27.0-33.0) pg MCHC 34.4 (31.0-35.0) g/dl RDW 12.0 (11.0-16.0) % Plt Count TNP MPV 14.2 H (9.4-12.3) fL Absolute Nucleated RBC 0.000 (0.0-0.012) X10*3/uL Nucleated RBC % (auto) 0.0 (0.0-0.2) /100WBC Sodium 141 (135-145) mmol/L Potassium 4.3 (3.3-5.1) mmol/L Chloride 104 (96-108) mmol/L Carbon Dioxide 25 (22-29) mmol/L Anion Gap 16 (12-20) BUN 26 H (9-16) mg/dL Creatinine 1.24 (0.5-1.4) mg/dL Estim Creat Clear Calc 89.8 Estimated GFR 44 Random Glucose 200 H (60-115) mg/dL Calcium 9.4 D (8.4-10.2) mg/dL Total Bilirubin 0.4 (0.0-1.0) mg/dL Direct Bilirubin < 0.2 (0.0-0.5) mg/dL AST 12 D (5-31) U/L ALT 10 (0-31) U/L Alkaline Phosphatase 137 H D (39-117) U/L Total Protein 6.9 (6.5-8.0) g/dL Albumin 3.6 (3.5-5.0) g/dL Lipase 27 (8-78) U/L Urine Color Urine Appearance Urine pH (5.0-8.0) Ur Specific [place] (1.005-1.025) Urine Protein (Neg-Trace) mg/dL Urine Glucose (UA) (Negative) mg/dL Urine Ketones (Negative) mg/dL Urine Blood (Negative) Urine Nitrite (Negative) Ur Leukocyte Esterase (Negative) Urine RBC (0-2) /HPF Urine WBC (0-5) /HPF Ur Squamous Epith Cells (0-2) /HPF Urine Bacteria (None Seen) Hyaline Casts (0-2) /LPF COVID-19 ([facility]) Negative (Negative) COVID-19 Clin Com See Note 10/02/21 Range/Units 06:40 WBC (4.8-10.8) X10*3/uL RBC (4.20-5.50) X10*6/uL Hgb (12.0-16.0) g/dl Hct (37.0-47.0) % MCV (80.0-98.0) fL MCH (27.0-33.0) pg MCHC (31.0-35.0) g/dl RDW (11.0-16.0) % Plt Count MPV (9.4-12.3) fL Absolute Nucleated RBC (0.0-0.012) X10*3/uL Nucleated RBC % (auto) (0.0-0.2) /100WBC Sodium (135-145) mmol/L Potassium (3.3-5.1) mmol/L Chloride (96-108) mmol/L Carbon Dioxide (22-29) mmol/L Anion Gap (12-20) BUN (9-16) mg/dL Creatinine (0.5-1.4) mg/dL Estim Creat Clear Calc Estimated GFR Random Glucose (60-115) mg/dL Calcium (8.4-10.2) mg/dL Total Bilirubin (0.0-1.0) mg/dL Direct Bilirubin (0.0-0.5) mg/dL AST (5-31) U/L ALT (0-31) U/L Alkaline Phosphatase (39-117) U/L Total Protein (6.5-8.0) g/dL Albumin (3.5-5.0) g/dL Lipase (8-78) U/L Urine Color Yellow Urine Appearance Turbid Urine pH 6.0 (5.0-8.0) Ur Specific [place] >= 1.030 H (1.005-1.025) Urine Protein >=1000 (4+) H (Neg-Trace) mg/dL Urine Glucose (UA) 250 H (Negative) mg/dL Urine Ketones Trace (Negative) mg/dL Urine Blood Small (1+) H (Negative) Urine Nitrite Negative (Negative) Ur Leukocyte Esterase Moderate (2+) H (Negative) Urine RBC 6-10 H (0-2) /HPF Urine WBC >50 H (0-5) /HPF Ur Squamous Epith Cells >20 (0-2) /HPF Urine Bacteria 4+ (None Seen) Hyaline Casts 0-2 (0-2) /LPF COVID-19 ([facility]) (Negative) COVID-19 Clin Com Imaging Data CT scan - abdomen: Attestation: I personally reviewed and interpreted this imaging study as follows: Radiologist's impression: 1. There is a 1 x 1.2 cm calculus in the right ureteropelvic junction, with mild prominence of the right renal pelvis. This is new as compared to the prior study. ? Otherwise, multiple bilateral nonobstructive renal calculi are redemonstrated. Bilateral perinephric stranding. No left ureteral calculi or hydronephrosis. ? 2. Similar appearance of an anterior abdominal wall supraumbilical hernia containing a nonobstructive loop of transverse colon. ? 3. Similar appearance of bilateral external iliac enlarged lymph nodes containing fatty hilum. Discharge Plan Discharge Clinical Impression: Kidney stone, Gastritis, UTI (urinary tract infection) Patient Disposition: Admitted As Inpatient
[2021-10-02] MEDS: ondansetron HCL 4 MG/2 ML VIAL IVPUSH ×2 (07:53→16:12)
[2021-10-02] MEDS: Magnesium Hydrox/Alum Hydrox 30 ML ORAL.SUSP PO (07:54)
[2021-10-02] MEDS: Famotidine/PF 20 MG/2 ML VIAL IVPUSH (07:54)
--- NOTE | 2021-10-02 10:13 | PM.IMHP ---
History of Present Illness Date of Service: 10/02/21 Chief Complaint: Abdominal pain 64 year old female with DM2, CKD3, benign brain tumor, HTN, history of kidney stones who is presenting with left sided abdominal pain similar to prior kidney stone, sever in intensitity ongoing for almost 24 hours now, she had associated nausea and vomiting, no fever or chilss. CT show 1. There is a 1 x 1.2 cm calculus in the right ureteropelvic junction, with mild prominence of the right renal pelvis and UA is positive for UTI. This is new as compared to the prior study. Review of Systems Review of Systems: Gen: no fever Resp: no sob, no cough CV: no chest, no HORN, no leg edema GI: + n/v, + abd pain Neuro: No confusion Yes all other systems are reviewed and are negative [facility] Medical History Brain tumor CKD (chronic kidney disease) stage 3, GFR 30-59 ml/min Depression Diabetes Gastritis HLD (hyperlipidemia) Kidney stone Seizure Family History (Updated 10/02/21 @ 10:14 by Seth Ronquillo MD) Father CAD (coronary artery disease) Brother Lung cancer Sister Kidney stone Surgical History H/O hernia repair History of cholecystectomy Social History Household Members: Family Housing: House Do you presently have visiting nurse or other home services: Yes Alcohol intake: never Advance Directives: No service: No Current occupational status: unemployed Meds Allergies Allergy/AdvReac Type Severity Reaction Status Date / Time egg Allergy Mild Abdominal Verified 03/20/20 21:01 Pain Home Medications Medication Instructions Recorded Confirmed Last Taken Type blood sugar diagnostic (FreeStyle 03/28/20 03/28/20 Unknown History Lite Strips) blood-glucose meter (FreeStyle 03/28/20 03/28/20 Unknown History [place] Lite kit) insulin lispro 200 unit/mL (3 mL) 14 unit subcut TIDAC 03/28/20 10/02/21 10/01/21 History subcutaneous pen (Humalog KwikPen U-200 Insulin) lacosamide 200 mg tablet (Vimpat) 200 mg PO BID 03/28/20 10/02/21 10/01/21 History lancets 28 gauge (FreeStyle 03/28/20 03/28/20 Unknown History Lancets) insulin glargine U-300 conc 300 30 unit subcut BID 03/29/20 10/02/21 10/01/21 History unit/mL (1.5 mL) subcutaneous pen (TouOpen-Xchangeo SoloStar U-300 Insulin) atorvastatin 40 mg tablet 40 mg PO BEDTIME 10/02/21 10/02/21 10/01/21 History duloxetine 60 mg capsule,delayed 60 mg PO DAILY 10/02/21 10/02/21 10/01/21 History release sprinkle losartan 50 mg tablet 50 mg PO BID 10/02/21 10/02/21 10/01/21 History nabumetone 750 mg tablet 750 mg PO BID PRN Pain 10/02/21 10/02/21 Unknown History omeprazole 40 mg capsule,delayed 40 mg PO DAILY 10/02/21 10/02/21 10/01/21 History release quetiapine 25 mg tablet (Seroquel) 25 mg PO DAILY 10/02/21 10/02/21 10/01/21 History Physical Exam Vital Signs and Narrative: Vital Signs: Last Vital Signs Temp 97.2 F 10/02/21 07:59 Pulse 77 10/02/21 07:59 Resp 19 10/02/21 07:59 BP 160/74 H 10/02/21 07:59 Pulse Ox 99 10/02/21 07:59 O2 Del Method 10/02/21 07:59 BMI result Body Mass Index 99.5 Const: Other: Constitutional: Alert, in no distress, overweight. Mental Status: Oriented to person, place and time. Eyes: Pupils are equal, round and reactive to light. Ear, Nose and Throat: Oropharynx clear, mucous membranes moist. Ears and nose without eformities. Trachea midline. Respiratory: Clear to auscultation. No wheezing, rales or rhonchi. Cardiovascular: S1 S2 regular. No murmurs, rubs or gallops. Gastrointestinal: Abdomen soft, mild tenderness at llq, non-distended. Normal bowel sounds.? Neurologic: Cranial nerves II-XII grossly intact. No focal neurological deficits. Moves all extremities spontaneously.? Skin: No rashes or lesions.? Musculoskeletal: No cyanosis or clubbing. Psychiatric: Normal mood and affect? Results Labs CBC and Chem 7: 10/02/21 03:46 10/02/21 03:46 Labs: Laboratory Results - last 24 hr 10/02/21 10/02/21 10/02/21 03:46 03:46 04:26 MCV 89.6 MCH 30.8 MCHC 34.4 RDW 12.0 Plt Count TNP MPV 14.2 H Absolute Nucleated RBC 0.000 Nucleated RBC % (auto) 0.0 Anion Gap 16 Estim Creat Clear Calc 89.8 Estimated GFR 44 Random Glucose 200 H Calcium 9.4 D Total Bilirubin 0.4 Direct Bilirubin < 0.2 AST 12 D ALT 10 Alkaline Phosphatase 137 H D Total Protein 6.9 Albumin 3.6 Lipase 27 Urine Color Urine Appearance Urine pH Ur Specific [place] Urine Protein Urine Glucose (UA) Urine Ketones Urine Blood Urine Nitrite Ur Leukocyte Esterase Urine RBC Urine WBC Ur Squamous Epith Cells Urine Bacteria Hyaline Casts COVID-19 ([facility]) Negative COVID-19 Clin Com See Note 10/02/21 06:40 MCV MCH MCHC RDW Plt Count MPV Absolute Nucleated RBC Nucleated RBC % (auto) Anion Gap Estim Creat Clear Calc Estimated GFR Random Glucose Calcium Total Bilirubin Direct Bilirubin AST ALT Alkaline Phosphatase Total Protein Albumin Lipase Urine Color Yellow Urine Appearance Turbid Urine pH 6.0 Ur Specific [place] >= 1.030 H Urine Protein >=1000 (4+) H Urine Glucose (UA) 250 H Urine Ketones Trace Urine Blood Small (1+) H Urine Nitrite Negative Ur Leukocyte Esterase Moderate (2+) H Urine RBC 6-10 H Urine WBC >50 H Ur Squamous Epith Cells >20 Urine Bacteria 4+ Hyaline Casts 0-2 COVID-19 ([facility]) COVID-19 Clin Com Imaging Radiologist's Impressions: Impressions Abdomen/Pelvis CT 10/02/21 08:00 IMPRESSION: 1. There is a 1 x 1.2 cm calculus in the right ureteropelvic junction, with mild prominence of the right renal pelvis. This is new as compared to the prior study. Otherwise, multiple bilateral nonobstructive renal calculi are redemonstrated. Bilateral perinephric stranding. No left ureteral calculi or hydronephrosis. 2. Similar appearance of an anterior abdominal wall supraumbilical hernia containing a nonobstructive loop of transverse colon. 3. Similar appearance of bilateral external iliac enlarged lymph nodes containing fatty hilum. Fleischner guidelines were followed. Assessment and Plan (1) Kidney stone: Status: Acute (2) UTI (urinary tract infection): Status: Acute Plan 64 year old female with DM2, CKD3, benign brain tumor, HTN, history of kidney stones who is presenting with left sided abdominal pain similar to prior kidney stone, sever in intensitity ongoing for almost 24 hours now, she had associated nausea and vomiting, no fever or chilss. CT show 1. There is a 1 x 1.2 cm calculus in the right ureteropelvic junction, with mild prominence of the right renal pelvis and UA is positive for UTI. This is new as compared to the prior study. 1/Kidney Stone 2/UTI -Urology consult -Ceftriaxone for UTI and follow culture -Morphine or Dilaudid IV for pain 3/CKD 3--stable 4/ Diabetes--restart home med and add SSI 5/HTN--home mes when med rec is done 6/Obesity--weighth loss advised 7/ DVT prophylaxis--Heparin Quality Stroke Does the patient have a stroke diagnosis?: No VTE Prior VTE?: No VTE Risk Level:: Medical - moderate - high VTE Device Contraindication: Treatment Not Tolerated VTE Drug Contraindication: N/A - Med Ordered
[2021-10-02] MEDS: Morphine Sulfate 2 MG/ML CARTRIDGE 1 MG IVPUSH (11:05)
[2021-10-02] MEDS: cefTRIAXone sodium 1 GM in 0.9 % Sodium Chloride 50 ML IV (11:09)
[2021-10-02] MEDS: 0.9 % Sodium Chloride 1,000 ML 100 ML IVCONT ×2 (11:22→21:37)
[2021-10-02 11:24] LABS: Lactic Acid 1.2 mmol/L (0.5-2.0)
[2021-10-02 12:35] LABS: Glucose, Whole Blood 206 mg/dL (60-115)
[2021-10-02] MEDS: Morphine Sulfate 4 MG/ML CARTRIDGE 2 MG IVPUSH (12:45)
[2021-10-02] MEDS: Insulin Lispro 100 UNIT/ML 3 ML VIAL SUBCUT ×3 (12:46→21:26)
--- NOTE | 2021-10-02 13:09 | PHA.MEDREC ---
Pharmacy Consult ? Medication Reconciliation Pharmacy has completed the medication reconciliation. Patient has been in [place] for a long time now and has an signal supervisor there. Her daughter lives here and she has come back for more of a permanent stay here. She just established care with [facility] but none of her meds have been continued here except for Vimpat. Patient's daughter has her medications from [place]. Per patient, her blood sugars are very poorly controlled. According to her, the signal supervisor in [place] recommended that she change her long acting insulin from daily to BID to TID. Her daughter and herself are adamant that she uses insulin glargine TID along with lispro tid. I will discuss with Dr Ronquillo since the label is for daily. Another discrepancy I noted was the losartan. The label is for 50mg qd, but the patient states it was upped to BID dosing. Lastly, the patient thinks they should be on gabapentin 800mg bid for neuropathy but she did not have an old bottle. Seems that cymbalta is taking it's place? I will let Dr Ronquillo know. Thanks Dale
--- NOTE | 2021-10-02 14:13 | PC.NURSE ---
Pt vomit 200Ml of light brown. Zofran given.
--- NOTE | 2021-10-02 16:10 | PC.NURSE ---
pain uncontrolled with 2mg MOP, MD notified. pt tearful and vomiting at bedside.
[2021-10-02] MEDS: amLODIPine Besylate 5 MG TABLET PO (17:03)
[2021-10-02] MEDS: HYDROmorphone HCl 0.5 MG/0.5 ML SYRINGE SUBCUT ×2 (17:04→21:22)
[2021-10-02 18:51] LABS: Glucose, Whole Blood 199 mg/dL (60-115)
[2021-10-02] MEDS: 0.9 % Sodium Chloride Flush 3 ML SYRINGE IVFLUSH (18:59)
[2021-10-02 21:17] LABS: Glucose, Whole Blood 236 mg/dL (60-115)
[2021-10-02] MEDS: Losartan Potassium 50 MG TABLET PO (21:23)
[2021-10-02] MEDS: Atorvastatin Calcium 40 MG TABLET PO (21:23)
[2021-10-02] MEDS: Lacosamide 100 MG TABLET 200 MG PO (22:29)
[2021-10-03 01:07] VITALS: BP 160/86; PULSE 75; RESP 16; TEMP 36.6; O2SAT 97
[2021-10-03] MEDS: 0.9 % Sodium Chloride 1,000 ML 100 ML IVCONT ×2 (07:25→14:52)
[2021-10-03 07:38] LABS: Glucose, Whole Blood 194 mg/dL (60-115)
[2021-10-03] MEDS: cefTRIAXone sodium 1 GM in 0.9 % Sodium Chloride 50 ML IV (09:03)
[2021-10-03] MEDS: Lacosamide 100 MG TABLET 200 MG PO ×2 (09:03→21:10)
[2021-10-03] MEDS: Losartan Potassium 50 MG TABLET PO ×2 (09:04→21:10)
[2021-10-03] MEDS: DULoxetine HCl 60 MG CAPSULE.DR PO (09:04)
[2021-10-03] MEDS: amLODIPine Besylate 5 MG TABLET PO (09:04)
[2021-10-03] MEDS: Omeprazole 40 MG CAPSULE.DR PO (09:04)
[2021-10-03] MEDS: QUEtiapine Fumarate 25 MG TABLET PO (09:04)
--- NOTE | 2021-10-03 09:05 | HO.PM.IMPN ---
Subjective Subjective Date of Service: 10/03/21 Interval History: f/u on kidney stone, uti interval history: still w/ pain, Review of Systems no fever abd pain Physical Exam Vital Signs: Vital Signs: Last Vital Signs Temp 97.8 F 10/03/21 01:07 Pulse 75 10/03/21 01:07 Resp 16 10/03/21 01:07 BP 160/86 H 10/03/21 01:07 Pulse Ox 97 10/03/21 01:07 O2 Del Method 10/03/21 01:07 BMI result Body Mass Index 99.5 Objective Data Active Medications Amlodipine Besylate (Amlodipine Besylate 5 Mg Tablet) 5 mg PO DAILY [facility]; Protocol Last Admin: 10/02/21 17:03 Dose: 5 mg Documented By: JESS Atorvastatin Calcium (Atorvastatin Calcium 40 Mg Tablet) 40 mg PO BEDTIME [facility] Last Admin: 10/02/21 21:23 Dose: 40 mg Documented By: JESS Duloxetine HCl (Duloxetine Hcl 60 Mg Capsule.) 60 mg PO DAILY [facility] Hydromorphone HCl (Hydromorphone Hcl 0.5 Mg/0.5 Ml Syringe) 0.5 mg SUBCUT Q3H PRN; Protocol PRN Reason: Pain, Severe (Pain Scale 7-10) Sodium Chloride (Ns) 1,000 mls @ 100 mls/hr IVCONT .Q10H [facility] Last Admin: 10/03/21 07:25 Dose: 100 mls/hr Documented By: ANTONIETA Ceftriaxone Sodium 1 gm/ (Sodium Chloride) 50 mls @ 100 mls/hr IV Q24H [facility] Insulin Human Lispro (Insulin Lispro 100 Unit/Ml 3 Ml Vial) 0 unit SUBCUT QIDACHS [facility]; Protocol Last Admin: 10/02/21 21:26 Dose: 4 unit Documented By: JESS Lacosamide (Lacosamide 100 Mg Tablet) 200 mg PO BID [facility] Last Admin: 10/02/21 22:29 Dose: 200 mg Documented By: JESS Losartan Potassium (Losartan Potassium 50 Mg Tablet) 50 mg PO BID [facility]; Protocol Last Admin: 10/02/21 21:23 Dose: 50 mg Documented By: JESS Omeprazole (Omeprazole 40 Mg Capsule.) 40 mg PO DAILY [facility] Ondansetron HCl (Ondansetron Hcl 4 Mg/2 Ml Vial) 4 mg IVPUSH Q6H PRN PRN Reason: Nausea and Vomiting Pharmacy Consult (Consult Rx Perform Med Rec) 1 each MISCELLANE ONCE PRN PRN Reason: Consult order Quetiapine Fumarate (Quetiapine Fumarate 25 Mg Tablet) 25 mg PO DAILY [facility] Sodium Chloride (0.9 % Sodium Chloride Flush 3 Ml Syringe) 3 ml IVFLUSH QSHIFT [facility] Last Admin: 10/03/21 07:24 Dose: Not Given Documented By: ANTONIETA Non-Admin Reason: IV Running Labs CBC & Chem 7: 10/02/21 03:46 10/02/21 03:46 Labs: Laboratory Results - last 24 hr 10/02/21 10/02/21 10/02/21 10:59 12:19 18:45 POC Glucose 206 H 199 H Lactic Acid 1.2 10/02/21 10/03/21 21:12 07:34 POC Glucose 236 H 194 H Lactic Acid Assessment and Plan (1) Acute hypoxemic respiratory failure due to COVID-19: Status: Acute Plan 64 year old female? with DM2, CKD3, benign brain tumor, HTN, history of kidney stones who is presenting with left sided abdominal pain similar to prior kidney stone, sever in intensitity ongoing for almost 24 hours now, she had associated nausea and vomiting, no fever or chilss. CT show??1. There is a 1 x 1.2 cm calculus in the right ureteropelvic junction, with mild prominence of the right renal pelvis and UA is positive for UTI. This is new as compared to the prior study. 1/Kidney Stone 2/UTI -Urology will intervene tomorrow -Ceftriaxone for UTI and follow culture - Dilaudid IV for pain 3/CKD 3--stable 4/ Diabetes--restart home med and 5/HTN--Sliding insulin, 6/Obesity--weighth loss advised 7/ DVT prophylaxis--lovenox need for inpatient: UTI, possible infected kidney stone that need surgery, IV Abx Quality Stroke Does the patient have a stroke diagnosis?: No VTE Prior VTE?: No VTE Risk Level:: Medical - moderate - high VTE Device Contraindication: Treatment Not Tolerated VTE Drug Contraindication: N/A - Med Ordered
[2021-10-03 11:20] VITALS: BP 174/78; PULSE 78; RESP 16; TEMP 36.4; O2SAT 98
[2021-10-03 12:10] VITALS: BP 182/84; PULSE 75; RESP 18; TEMP 37; O2SAT 99
[2021-10-03 12:39] LABS: Glucose, Whole Blood 214 mg/dL (60-115)
[2021-10-03] MEDS: Heparin Sodium,Porcine 5,000 UNIT/ML VIAL 5000 UNIT SUBCUT ×2 (12:52→17:04)
[2021-10-03] MEDS: Insulin Lispro 100 UNIT/ML 3 ML VIAL SUBCUT ×3 (12:53→21:11)
[2021-10-03 15:21] VITALS: BP 143/64; PULSE 98; RESP 18; TEMP 36.5; O2SAT 97
[2021-10-03 15:34] LABS: Glucose, Whole Blood 271 mg/dL (60-115)
[2021-10-03 19:31] VITALS: BP 137/64; PULSE 90; RESP 18; TEMP 36.3; O2SAT 96
[2021-10-03 19:32] LABS: Glucose, Whole Blood 253 mg/dL (60-115)
[2021-10-03] MEDS: Atorvastatin Calcium 40 MG TABLET PO (21:10)
[2021-10-03] MEDS: 0.9 % Sodium Chloride Flush 3 ML SYRINGE IVFLUSH (21:15)
[2021-10-03 23:53] VITALS: BP 162/72; PULSE 90; RESP 20; TEMP 36.7; O2SAT 96
[2021-10-04] VITALS (16 sets, daily range): BP systolic 130–180; BP diastolic 60–98; PULSE 76–106; RESP 16–19; TEMP 36.5–37.2; O2SAT 82–98; BMI 45.1
[2021-10-04] MEDS: 0.9 % Sodium Chloride 1,000 ML 100 ML IVCONT (00:49)
[2021-10-04] MEDS: Heparin Sodium,Porcine 5,000 UNIT/ML VIAL 5000 UNIT SUBCUT ×2 (02:57→17:16)
[2021-10-04 07:35] LABS: Glucose, Whole Blood 166 mg/dL (60-115)
[2021-10-04] MEDS: cefTRIAXone sodium 1 GM in 0.9 % Sodium Chloride 50 ML IV (07:47)
[2021-10-04] MEDS: Omeprazole 40 MG CAPSULE.DR PO (08:49)
[2021-10-04] MEDS: Acetaminophen 325 MG TABLET 650 MG PO ×2 (08:49→13:09)
[2021-10-04] MEDS: Lacosamide 100 MG TABLET 200 MG PO ×2 (08:50→21:46)
[2021-10-04] MEDS: QUEtiapine Fumarate 25 MG TABLET PO (08:50)
[2021-10-04] MEDS: DULoxetine HCl 60 MG CAPSULE.DR PO (08:50)
[2021-10-04] MEDS: amLODIPine Besylate 5 MG TABLET PO (08:50)
[2021-10-04] MEDS: Losartan Potassium 50 MG TABLET PO ×2 (08:51→21:47)
--- NOTE | 2021-10-04 08:56 | P.PNIM_ITS ---
Subjective Subjective Date of Service: 10/04/21 Interval History: f/u on kidney stone, uti interval history: feels well, has no pain Review of Systems no fever abd pain Physical Exam Vital Signs: Vital Signs: Last Vital Signs Temp 98.4 F 10/04/21 07:24 Pulse 76 10/04/21 07:24 Resp 18 10/04/21 07:24 BP 168/81 H 10/04/21 07:24 Pulse Ox 97 10/04/21 07:24 O2 Del Method 10/04/21 07:24 BMI result Body Mass Index 99.5 Const: Other: Constitutional: Alert, in no distress, overweight. Mental Status: Oriented to person, place and time. Eyes: Pupils are equal, round and reactive to light. Ear, Nose and Throat: Oropharynx clear, mucous membranes moist. Ears and nose without eformities. Trachea midline. Respiratory: Clear to auscultation. No wheezing, rales or rhonchi. Cardiovascular: S1 S2 regular. No murmurs, rubs or gallops. Gastrointestinal: Abdomen soft, mild tenderness at llq, non-distended. Normal bowel sounds.? Neurologic: Cranial nerves II-XII grossly intact. No focal neurological deficits. Moves all extremities spontaneously.? Skin: No rashes or lesions.? Musculoskeletal: No cyanosis or clubbing. Psychiatric: Normal mood and affect? Objective Data Active Medications Amlodipine Besylate (Amlodipine Besylate 5 Mg Tablet) 5 mg PO DAILY [facility]; Protocol Last Admin: 10/04/21 08:50 Dose: 5 mg Documented By: VIOLETA Atorvastatin Calcium (Atorvastatin Calcium 40 Mg Tablet) 40 mg PO BEDTIME [facility] Last Admin: 10/03/21 21:10 Dose: 40 mg Documented By: CISCO Duloxetine HCl (Duloxetine Hcl 60 Mg Capsule.) 60 mg PO DAILY [facility] Last Admin: 10/04/21 08:50 Dose: 60 mg Documented By: VIOLETA Heparin Sodium (Porcine) (Heparin Sodium,Porcine 5,000 Unit/Ml Vial) 5,000 unit SUBCUT Q8H [facility] Last Admin: 10/04/21 02:57 Dose: 5,000 unit Documented By: RAUL Hydromorphone HCl (Hydromorphone Hcl 0.5 Mg/0.5 Ml Syringe) 0.5 mg SUBCUT Q3H PRN; Protocol PRN Reason: Pain, Severe (Pain Scale 7-10) Sodium Chloride (Ns) 1,000 mls @ 100 mls/hr IVCONT .Q10H [facility] Last Admin: 10/04/21 00:49 Dose: 100 mls/hr Documented By: RAUL Ceftriaxone Sodium 1 gm/ (Sodium Chloride) 50 mls @ 100 mls/hr IV Q24H [facility] Last Infusion: 10/04/21 08:53 Dose: 0 mls/hr Documented By: VIOLETA Insulin Human Lispro (Insulin Lispro 100 Unit/Ml 3 Ml Vial) 0 unit SUBCUT QIDACHS [facility]; Protocol Last Admin: 10/04/21 08:51 Dose: Not Given Documented By: VIOLETA Non-Admin Reason: NPO Lacosamide (Lacosamide 100 Mg Tablet) 200 mg PO BID [facility] Last Admin: 10/04/21 08:50 Dose: 200 mg Documented By: VIOLETA Losartan Potassium (Losartan Potassium 50 Mg Tablet) 50 mg PO BID [facility]; Protocol Last Admin: 10/04/21 08:51 Dose: 50 mg Documented By: VIOLETA Omeprazole (Omeprazole 40 Mg Capsule.Dr) 40 mg PO DAILY [facility] Last Admin: 10/04/21 08:49 Dose: 40 mg Documented By: VIOLETA Ondansetron HCl (Ondansetron Hcl 4 Mg/2 Ml Vial) 4 mg IVPUSH Q6H PRN PRN Reason: Nausea and Vomiting Pharmacy Consult (Consult Rx Perform Med Rec) 1 each MISCELLANE ONCE PRN PRN Reason: Consult order Quetiapine Fumarate (Quetiapine Fumarate 25 Mg Tablet) 25 mg PO DAILY [facility] Last Admin: 10/04/21 08:50 Dose: 25 mg Documented By: VIOLETA Sodium Chloride (0.9 % Sodium Chloride Flush 3 Ml Syringe) 3 ml IVFLUSH QSHIFT [facility] Last Admin: 10/04/21 08:47 Dose: Not Given Documented By: VIOLETA Non-Admin Reason: IV Running Labs CBC & Chem 7: 10/02/21 03:46 10/02/21 03:46 Labs: Laboratory Results - last 24 hr 10/03/21 10/03/21 10/03/21 12:31 15:14 19:17 POC Glucose 214 H 271 H 253 H 10/04/21 07:29 POC Glucose 166 H Microbiology Microbiology Results: Microbiology 10/02/21 10:59 Blood Culture - Preliminary Blood - Venous No growth after 24 hours. 10/02/21 10:59 Blood Culture - Preliminary Blood - Venous No growth after 24 hours. 10/02/21 Unknown Urine Culture - Final Urine clean catch - Urine berg top Assessment and Plan (1) Kidney stone: Status: Acute (2) UTI (urinary tract infection): Status: Acute Plan 64 year old female? with DM2, CKD3, benign brain tumor, HTN, history of kidney stones who is presenting with left sided abdominal pain similar to prior kidney stone, sever in intensitity ongoing for almost 24 hours now, she had associated nausea and vomiting, no fever or chilss. CT show??1. There is a 1 x 1.2 cm calculus in the right ureteropelvic junction, with mild prominence of the right renal pelvis and UA is positive for UTI. This is new as compared to the prior study. 1/Kidney Stone 2/UTI -Urology will intervene later today -Ceftriaxone D3 for UTI and follow culture - Dilaudid IV for pain 3/CKD 3--stable 4/ Diabetes--restart home med and 5/HTN--Sliding insulin, 6/Obesity--weighth loss advised 7/ DVT prophylaxis--lovenox need for inpatient: UTI, possible infected kidney stone that need surgery, IV Abx Quality Stroke Does the patient have a stroke diagnosis?: No VTE Prior VTE?: No VTE Risk Level:: Medical - moderate - high VTE Device Contraindication: Treatment Not Tolerated VTE Drug Contraindication: N/A - Med Ordered
--- NOTE | 2021-10-04 09:44 | PM.UROCN ---
History of Present Illness Consult details Consult date: 10/04/21 Narrative: Consulting complaint right renal stone 65-year-old Georgian-speaking female. Presented to hospital with 24 hour history of severe right-sided pain rising to 8/10. Associated with nausea and vomiting. [place] similar to prior attack 3 weeks previously was visiting [place] and she had been informed that was due to a kidney stone. Prior stone former. WBC 13.8, creatinine 1.2, UA positive blood Imaging CT scan - multiple nonobstructing right renal calculi. There is a calculus in the right renal ureteropelvic junction measuring 1 x 1.2 cm, new from previous. There is mild prominence of the right renal pelvis. Recommendation for cystoscopy, right retrograde, right ureteroscopy with laser lithotripsy stent placement Review of Systems Constitutional: Constitutional: Reports as per HPI and Reports no additional constitutional complaints Cardiovascular: Cardiovascular: Reports as per HPI and Reports no additional cardiovascular complaints Respiratory: Respiratory: Reports as per HPI and Reports no additional respiratory complaints Gastrointestinal: Gastrointestinal: Reports as per HPI and Reports no additional gastrointestinal complaints Genitourinary: Genitourinary: Reports as per HPI Musculoskeletal: Musculoskeletal: Reports no additional musculoskeletal complaints and Reports as per HPI Neurologic: Reports system reviewed and no additional complaints, except as documented and Reports as per HPI PMFSH Past Medical History Medical History Brain tumor CKD (chronic kidney disease) stage 3, GFR 30-59 ml/min Depression Diabetes Gastritis HLD (hyperlipidemia) Kidney stone Seizure Family History Family History (Updated 10/02/21 @ 10:14 by Seth Ronquillo MD) Father CAD (coronary artery disease) Brother Lung cancer Sister Kidney stone Surgical History Surgical History H/O hernia repair History of cholecystectomy Social History Social History Household Members: Children Housing: Apartment Do you presently have visiting nurse or other home services: No Alcohol intake: never Patient Tobacco Use Status: Never used Tobacco service: No Current occupational status: unemployed Meds Allergies Allergy/AdvReac Type Severity Reaction Status Date / Time egg Allergy Mild Abdominal Verified 03/20/20 21:01 Pain Active Medications: Current Medications Amlodipine Besylate (Amlodipine Besylate 5 Mg Tablet) 5 mg PO DAILY [facility]; Protocol Last Admin: 10/04/21 08:50 Dose: 5 mg Atorvastatin Calcium (Atorvastatin Calcium 40 Mg Tablet) 40 mg PO BEDTIME [facility] Last Admin: 10/03/21 21:10 Dose: 40 mg Duloxetine HCl (Duloxetine Hcl 60 Mg Capsule.) 60 mg PO DAILY [facility] Last Admin: 10/04/21 08:50 Dose: 60 mg Heparin Sodium (Porcine) (Heparin Sodium,Porcine 5,000 Unit/Ml Vial) 5,000 unit SUBCUT Q8H [facility] Last Admin: 10/04/21 02:57 Dose: 5,000 unit Hydromorphone HCl (Hydromorphone Hcl 0.5 Mg/0.5 Ml Syringe) 0.5 mg SUBCUT Q3H PRN; Protocol PRN Reason: Pain, Severe (Pain Scale 7-10) Sodium Chloride (Ns) 1,000 mls @ 100 mls/hr IVCONT .Q10H [facility] Last Admin: 10/04/21 00:49 Dose: 100 mls/hr Ceftriaxone Sodium 1 gm/ (Sodium Chloride) 50 mls @ 100 mls/hr IV Q24H [facility] Last Infusion: 10/04/21 08:53 Dose: Infused Insulin Human Lispro (Insulin Lispro 100 Unit/Ml 3 Ml Vial) 0 unit SUBCUT QIDACHS [facility]; Protocol Last Admin: 10/04/21 08:51 Dose: Not Given Lacosamide (Lacosamide 100 Mg Tablet) 200 mg PO BID [facility] Last Admin: 10/04/21 08:50 Dose: 200 mg Losartan Potassium (Losartan Potassium 50 Mg Tablet) 50 mg PO BID [facility]; Protocol Last Admin: 10/04/21 08:51 Dose: 50 mg Omeprazole (Omeprazole 40 Mg Capsule.) 40 mg PO DAILY [facility] Last Admin: 10/04/21 08:49 Dose: 40 mg Ondansetron HCl (Ondansetron Hcl 4 Mg/2 Ml Vial) 4 mg IVPUSH Q6H PRN PRN Reason: Nausea and Vomiting Pharmacy Consult (Consult Rx Perform Med Rec) 1 each MISCELLANE ONCE PRN PRN Reason: Consult order Quetiapine Fumarate (Quetiapine Fumarate 25 Mg Tablet) 25 mg PO DAILY [facility] Last Admin: 10/04/21 08:50 Dose: 25 mg Sodium Chloride (0.9 % Sodium Chloride Flush 3 Ml Syringe) 3 ml IVFLUSH QSHIFT [facility] Last Admin: 10/04/21 08:47 Dose: Not Given Home Medications Medication Instructions Recorded Confirmed Last Taken Type blood sugar diagnostic (FreeStyle 03/28/20 03/28/20 Unknown History Lite Strips) blood-glucose meter (FreeStyle 03/28/20 03/28/20 Unknown History Crocker Lite kit) insulin lispro 200 unit/mL (3 mL) 14 unit subcut TIDAC 03/28/20 10/02/21 10/01/21 History subcutaneous pen (Humalog KwikPen U-200 Insulin) lacosamide 200 mg tablet (Vimpat) 200 mg PO BID 03/28/20 10/02/21 10/01/21 History lancets 28 gauge (FreeStyle 03/28/20 03/28/20 Unknown History Lancets) insulin glargine U-300 conc 300 30 unit subcut BID 03/29/20 10/02/21 10/01/21 History unit/mL (1.5 mL) subcutaneous pen (Toujeo SoloStar U-300 Insulin) atorvastatin 40 mg tablet 40 mg PO BEDTIME 10/02/21 10/02/21 10/01/21 History duloxetine 60 mg capsule,delayed 60 mg PO DAILY 10/02/21 10/02/21 10/01/21 History release sprinkle losartan 50 mg tablet 50 mg PO BID 10/02/21 10/02/21 10/01/21 History nabumetone 750 mg tablet 750 mg PO BID PRN Pain 10/02/21 10/02/21 Unknown History omeprazole 40 mg capsule,delayed 40 mg PO DAILY 10/02/21 10/02/21 10/01/21 History release quetiapine 25 mg tablet (Seroquel) 25 mg PO DAILY 10/02/21 10/02/21 10/01/21 History Physical Exam Vital Signs: Vital Signs: Last Vital Signs Temp 98.4 F 10/04/21 07:24 Pulse 76 10/04/21 07:24 Resp 18 10/04/21 07:24 BP 168/81 H 10/04/21 07:24 Pulse Ox 97 10/04/21 07:24 O2 Del Method 10/04/21 07:24 BMI result Body Mass Index 99.5 Const: General: cooperative, healthy appearing, comfortable and no acute distress Orientation/consciousness: patient oriented x3 HEENT: Face and sinus: Yes normal facial exam Mouth: moist mucous membranes Neck: Neck: Yes normal visual inspection, Yes full ROM and Yes trachea midline Chest: Chest palpation & inspection: normal inspection of the chest Resp: Effort & Inspection: normal respiratory effort, able to speak in complete sentences and no respiratory distress GI: Inspection: Yes normal to inspection Back/Spine/Pelvis: Cervical Spine: normal cervical lordosis Thoracic/Lumbar Spine: thoracic and lumbar spine normal to inspection Skin: General skin exam: no rashes or lesions noted Neuro: General: patient oriented x3, tone normal and moves all extremities Extrem: General: Yes normal to inspection and Yes capillary refill normal Results Labs Result diagrams: 10/02/21 03:46 10/02/21 03:46 Labs: Abnormal lab results 10/03/21 10/03/21 10/03/21 Range/Units 12:31 15:14 19:17 POC Glucose 214 H 271 H 253 H (60-115) mg/dL 10/04/21 Range/Units 07:29 POC Glucose 166 H (60-115) mg/dL Urine 10/02/21 Range/Units 06:40 Urine Color Yellow Urine Appearance Turbid Urine pH 6.0 (5.0-8.0) Ur Specific [place] >= 1.030 H (1.005-1.025) Urine Protein >=1000 (4+) H (Neg-Trace) mg/dL Urine Glucose (UA) 250 H (Negative) mg/dL All other labs normal. Assessment and Plan (1) Kidney stone: Status: Acute Plan Ureteroscopy We discussed the nature of the decision and reasonable alternatives for performing the above surgery. Interventions include chemical dissolution, ESWL, ureteroscopy with laser lithotripsy and stent placement, PCNL. Options such as medical therapy were discussed. The relative uncertainties and benefits related to each alternate procedure were adequately discussed. General surgical risks including, but not limited to, pain, bleeding, infection, myocardial infarction, pulmonary embolus, deep vein thrombosis and cerebrovascular accident which may result in further hospitalization were discussed. Full disclosure of the procedure as well as all major risks, benefits and complications were discussed including but not limited to damage to the urethra, bladder and kidney infection, damage to the ureter, stent migration or malposition, scarring to the renal pelvis, remnant stone fragments, subsequent stone passage with need for secondary procedures. The overall secondary procedure rate is approximately 10-15%. The success rate of the procedure was discussed. Success of the procedure in the short-term does not necessarily guarantee that long-term success will be maintained. Suitable follow up will need to be maintained. The patient showed understanding of discussion and wishes to proceed with - cystoscopy, retrograde, ureteroscopy, possible lithotripsy/stone basketing and stent on the right side Procedures Date of Service Date of Service: 10/04/21
--- NOTE | 2021-10-04 10:07 | HO.ANESPROP2 ---
[facility] Active Problems Active Problems: All Active Problems (Updated 10/02/21 @ 10:08 by Grant Wright MD) Kidney stone (Acute) Gastritis (Acute) UTI (urinary tract infection) (Acute) COVID-19 virus infection (Acute) COVID-19 (Acute) Acute hypoxemic respiratory failure due to COVID-19 (Acute) Past Medical History Medical History Brain tumor CKD (chronic kidney disease) stage 3, GFR 30-59 ml/min Depression Diabetes Gastritis HLD (hyperlipidemia) Kidney stone Seizure Family History Family History (Updated 10/02/21 @ 10:14 by Seth Ronquillo MD) Father CAD (coronary artery disease) Brother Lung cancer Sister Kidney stone Family history of problems with anesthesia: No Surgical History Surgical History H/O hernia repair History of cholecystectomy History of Problems with Anesthesia: No Social History Social History Household Members: Children Housing: Apartment Do you presently have visiting nurse or other home services: No Alcohol intake: never Patient Tobacco Use Status: Never used Tobacco service: No Current occupational status: unemployed Meds Allergies Allergy/AdvReac Type Severity Reaction Status Date / Time egg Allergy Mild Abdominal Verified 03/20/20 21:01 Pain Active Medications: Current Medications Amlodipine Besylate (Amlodipine Besylate 5 Mg Tablet) 5 mg PO DAILY KATHERINE; Protocol Last Admin: 10/04/21 08:50 Dose: 5 mg Atorvastatin Calcium (Atorvastatin Calcium 40 Mg Tablet) 40 mg PO BEDTIME KATHERINE Last Admin: 10/03/21 21:10 Dose: 40 mg Duloxetine HCl (Duloxetine Hcl 60 Mg Capsule.Dr) 60 mg PO DAILY KATHERINE Last Admin: 10/04/21 08:50 Dose: 60 mg Heparin Sodium (Porcine) (Heparin Sodium,Porcine 5,000 Unit/Ml Vial) 5,000 unit SUBCUT Q8H KATHERINE Last Admin: 10/04/21 02:57 Dose: 5,000 unit Hydromorphone HCl (Hydromorphone Hcl 0.5 Mg/0.5 Ml Syringe) 0.5 mg SUBCUT Q3H PRN; Protocol PRN Reason: Pain, Severe (Pain Scale 7-10) Sodium Chloride (Ns) 1,000 mls @ 100 mls/hr IVCONT .Q10H [facility] Last Admin: 10/04/21 00:49 Dose: 100 mls/hr Ceftriaxone Sodium 1 gm/ (Sodium Chloride) 50 mls @ 100 mls/hr IV Q24H [facility] Last Infusion: 10/04/21 08:53 Dose: Infused Insulin Human Lispro (Insulin Lispro 100 Unit/Ml 3 Ml Vial) 0 unit SUBCUT QIDACHS [facility]; Protocol Last Admin: 10/04/21 08:51 Dose: Not Given Lacosamide (Lacosamide 100 Mg Tablet) 200 mg PO BID [facility] Last Admin: 10/04/21 08:50 Dose: 200 mg Losartan Potassium (Losartan Potassium 50 Mg Tablet) 50 mg PO BID [facility]; Protocol Last Admin: 10/04/21 08:51 Dose: 50 mg Omeprazole (Omeprazole 40 Mg Capsule.Dr) 40 mg PO DAILY [facility] Last Admin: 10/04/21 08:49 Dose: 40 mg Ondansetron HCl (Ondansetron Hcl 4 Mg/2 Ml Vial) 4 mg IVPUSH Q6H PRN PRN Reason: Nausea and Vomiting Pharmacy Consult (Consult Rx Perform Med Rec) 1 each MISCELLANE ONCE PRN PRN Reason: Consult order Quetiapine Fumarate (Quetiapine Fumarate 25 Mg Tablet) 25 mg PO DAILY [facility] Last Admin: 10/04/21 08:50 Dose: 25 mg Sodium Chloride (0.9 % Sodium Chloride Flush 3 Ml Syringe) 3 ml IVFLUSH QSHIFT [facility] Last Admin: 10/04/21 08:47 Dose: Not Given Home Medications Medication Instructions Recorded Confirmed Last Taken Type blood sugar diagnostic (FreeStyle 03/28/20 03/28/20 Unknown History Lite Strips) blood-glucose meter (FreeStyle 03/28/20 03/28/20 Unknown History Mason Lite kit) insulin lispro 200 unit/mL (3 mL) 14 unit subcut TIDAC 03/28/20 10/02/21 10/01/21 History subcutaneous pen (Humalog KwikPen U-200 Insulin) lacosamide 200 mg tablet (Vimpat) 200 mg PO BID 03/28/20 10/02/21 10/01/21 History lancets 28 gauge (FreeStyle 03/28/20 03/28/20 Unknown History Lancets) insulin glargine U-300 conc 300 30 unit subcut BID 03/29/20 10/02/21 10/01/21 History unit/mL (1.5 mL) subcutaneous pen (Maykelestivenaayush YiKaseyar U-300 Insulin) atorvastatin 40 mg tablet 40 mg PO BEDTIME 10/02/21 10/02/21 10/01/21 History duloxetine 60 mg capsule,delayed 60 mg PO DAILY 10/02/21 10/02/21 10/01/21 History release sprinkle losartan 50 mg tablet 50 mg PO BID 10/02/21 10/02/21 10/01/21 History nabumetone 750 mg tablet 750 mg PO BID PRN Pain 10/02/21 10/02/21 Unknown History omeprazole 40 mg capsule,delayed 40 mg PO DAILY 10/02/21 10/02/21 10/01/21 History release quetiapine 25 mg tablet (Seroquel) 25 mg PO DAILY 10/02/21 10/02/21 10/01/21 History Exam Exam Date and Time: October 04, 2021 1007 Height,Weight and Vital Signs: Height 5 ft 1 in Weight 239 kg Last Vital Signs Temp 98.4 F 10/04/21 07:24 Pulse 76 10/04/21 07:24 Resp 18 10/04/21 07:24 BP 168/81 H 10/04/21 07:24 Pulse Ox 97 10/04/21 07:24 O2 Del Method 10/04/21 07:24 Pertinent Lab Results Pertinent Lab Results: Laboratory Tests 10/02/21 10/02/21 10/02/21 03:46 03:46 04:26 WBC 13.8 H RBC 3.64 L Hgb 11.2 L Hct 32.6 L MCV 89.6 MCH 30.8 MCHC 34.4 RDW 12.0 Plt Count TNP MPV 14.2 H Absolute Nucleated RBC 0.000 Nucleated RBC % (auto) 0.0 Sodium 141 Potassium 4.3 Chloride 104 Carbon Dioxide 25 Anion Gap 16 BUN 26 H Creatinine 1.24 Estim Creat Clear Calc 89.8 Estimated GFR 44 POC Glucose Random Glucose 200 H Lactic Acid Calcium 9.4 D Total Bilirubin 0.4 Direct Bilirubin < 0.2 AST 12 D ALT 10 Alkaline Phosphatase 137 H D Total Protein 6.9 Albumin 3.6 Lipase 27 Urine Color Urine Appearance Urine pH Ur Specific Plato Urine Protein Urine Glucose (UA) Urine Ketones Urine Blood Urine Nitrite Ur Leukocyte Esterase Urine RBC Urine WBC Ur Squamous Epith Cells Urine Bacteria Hyaline Casts COVID-19 (BIRDIE) Negative COVID-19 Shot Stats See Note 10/02/21 10/02/21 10/02/21 06:40 10:59 12:19 WBC RBC Hgb Hct MCV MCH MCHC RDW Plt Count MPV Absolute Nucleated RBC Nucleated RBC % (auto) Sodium Potassium Chloride Carbon Dioxide Anion Gap BUN Creatinine Estim Creat Clear Calc Estimated GFR POC Glucose 206 H Random Glucose Lactic Acid 1.2 Calcium Total Bilirubin Direct Bilirubin AST ALT Alkaline Phosphatase Total Protein Albumin Lipase Urine Color Yellow Urine Appearance Turbid Urine pH 6.0 Ur Specific Plato >= 1.030 H Urine Protein >=1000 (4+) H Urine Glucose (UA) 250 H Urine Ketones Trace Urine Blood Small (1+) H Urine Nitrite Negative Ur Leukocyte Esterase Moderate (2+) H Urine RBC 6-10 H Urine WBC >50 H Ur Squamous Epith Cells >20 Urine Bacteria 4+ Hyaline Casts 0-2 COVID-19 (BIRDIE) COVID-19 Shot Stats 10/02/21 10/02/21 10/03/21 18:45 21:12 07:34 WBC RBC Hgb Hct MCV MCH MCHC RDW Plt Count MPV Absolute Nucleated RBC Nucleated RBC % (auto) Sodium Potassium Chloride Carbon Dioxide Anion Gap BUN Creatinine Estim Creat Clear Calc Estimated GFR POC Glucose 199 H 236 H 194 H Random Glucose Lactic Acid Calcium Total Bilirubin Direct Bilirubin AST ALT Alkaline Phosphatase Total Protein Albumin Lipase Urine Color Urine Appearance Urine pH Ur Specific [place] Urine Protein Urine Glucose (UA) Urine Ketones Urine Blood Urine Nitrite Ur Leukocyte Esterase Urine RBC Urine WBC Ur Squamous Epith Cells Urine Bacteria Hyaline Casts COVID-19 (BIRDIE) COVID-19 Shot Stats 10/03/21 10/03/21 10/03/21 12:31 15:14 19:17 WBC RBC Hgb Hct MCV MCH MCHC RDW Plt Count MPV Absolute Nucleated RBC Nucleated RBC % (auto) Sodium Potassium Chloride Carbon Dioxide Anion Gap BUN Creatinine Estim Creat Clear Calc Estimated GFR POC Glucose 214 H 271 H 253 H Random Glucose Lactic Acid Calcium Total Bilirubin Direct Bilirubin AST ALT Alkaline Phosphatase Total Protein Albumin Lipase Urine Color Urine Appearance Urine pH Ur Specific [place] Urine Protein Urine Glucose (UA) Urine Ketones Urine Blood Urine Nitrite Ur Leukocyte Esterase Urine RBC Urine WBC Ur Squamous Epith Cells Urine Bacteria Hyaline Casts COVID-19 (BIRDIE) COVID-19 Clin Com 10/04/21 07:29 WBC RBC Hgb Hct MCV MCH MCHC RDW Plt Count MPV Absolute Nucleated RBC Nucleated RBC % (auto) Sodium Potassium Chloride Carbon Dioxide Anion Gap BUN Creatinine Estim Creat Clear Calc Estimated GFR POC Glucose 166 H Random Glucose Lactic Acid Calcium Total Bilirubin Direct Bilirubin AST ALT Alkaline Phosphatase Total Protein Albumin Lipase Urine Color Urine Appearance Urine pH Ur Specific [place] Urine Protein Urine Glucose (UA) Urine Ketones Urine Blood Urine Nitrite Ur Leukocyte Esterase Urine RBC Urine WBC Ur Squamous Epith Cells Urine Bacteria Hyaline Casts COVID-19 (BIRDIE) COVID-19 Clin Com Airway Mallampati Class: II (Missing muliple teeth, nothing lose) TM Dist: >3cm Neck ROM: Full Heart: rrr Lungs: cta Assessment and Plan Assessment Anesthesia Assessment: Anesthesia Plan Discussed and Chart Reviewed Final Anesthetic Review Family History of Problems with Anesthesia: No History of Problems with Anesthesia: No NPO: Yes ASA Class: III Final Preanesthetic Review: No Changes in Pt Med Stat, Meds/Allgs Chart Reviewed and Consent Obtained/Reviewed Patient Risk: Intermediate Procedure Risk: Intermediate Anesthetic Plan Anesthetic Plan: GA Disposition: Standard PACU
--- NOTE | 2021-10-04 10:22 | MHC.CM.PN ---
Addendum entered by Sonia Michael 10/04/21 11:15: DAUGHTER REPORTS THAT PATIENT HAS BEEN VACCINATED AGAINST COVID-19 X 3. SHE ALSO HAD COVID-19 Original Note: PATIENT LIVES WITH DAUGHTER AND SON-[place] NO HCP ON FILE BUT DAUGHTER BELIEVES THERE SHOULD BE. CASE MANAGEMENT TO INVESTIGATE FURTHER. PATIENT RELIES ON A WALKER AT HOME. FAMILY PROVIDES TRANSPORTATION NO VNA IN THE HOME FAMILY HOPES TO HAVE PATIENT RETURN HOME AT DC AND NOT TO A SNF. IMM 10/04 IN CHART.
[2021-10-04 10:58] LABS: Glucose, Whole Blood 168 mg/dL (60-115)
--- NOTE | 2021-10-04 10:58 | MHC.SHP ---
Pre-Procedural Eval Section A Date of Service: 10/04/21 The patient is an INPATIENT: Yes Changes since office visit: No Cold of Flu in the past 2 weeks, No New Medical Problems, No Changes in Medication and No Patient answered all questions The History & Physical has been completed within 30 days and I have reviewed it.: Yes Section B Chief Complaint: kidney stone Details of Present Illness: Right renal stone Allergies: Allergies Allergy/AdvReac Type Severity Reaction Status Date / Time egg Allergy Mild Abdominal Verified 03/20/20 21:01 Pain Review of Systems Sugical H&P ROS: Negative: Constitution, Cardiovascular, Respiratory, Neurological, Psychiatric, Hem-Onc, Allergic/Immunologic, Gastrointestinal, Genitourinary, Musculoskeletal, Integumentary, Endocrine and Eyes/Ears/Nose/Throat Exam Surgical H&P Exam: Normal: HEENT, Normal: Heart, Normal: Lungs, Normal: Extremities, Normal: Abdomen, Normal: Skin and Normal: Neurological Plan Diagnosis/Plan: Unchanged (Cystoscopy, right retrograde, right ureteroscopy with laser lithotripsy stent placement) I have reviewed the history and physical and performed a pertinent physical examination on my patient. No changes have occurred unless specified.
--- NOTE | 2021-10-04 12:27 | W.PM.OPN ---
Operative Note Operative Note Date of Service: 10/04/21 Narrative: PreOperative Diagnosis: Right renal stones with right UPJ stone - 4 x 1 cm stones Post Operative Diagnosis: 3 x 1 cm renal stones Procedure: - cystoscopy, right retrograde - right dilatation of ureteric orifice under fluoroscopy - right ureteroscopy, laser lithotripsy, stone basketing - 150% longer than typical modifier 22 - right stent placement Surgeon: Dr Jeffrey Lobato Anesthesia: General Indications for procedure: 1 cm stone lodged at right UPJ, 3 x 1 cm stones in the kidney 1 in the lower pole and 1 in the midpole, 1 in the 2nd mid pole calices Procedure: After informed consent was verified patient was brought to the operating placed in supine position. Anesthesia was administered per protocol. Patient was placed in modified dorsal lithotomy position and prepped and draped in a sterile fashion. Safety pause time-out and side of surgery confirmed. Antibiotics confirmed. 22 [place] cystoscope was inserted per urethra. Bladder was normal in its entirety. Both ureteric orifices were in normal position. The right ureteric orifice was cannulated and a retrograde examination was performed. Filling defects seen at right UPJ. Filling defects seen in lower pole, and in mid pole. All consistent with CT scan showing 1 cm stone at the right UPJ and in the right lower pole and in the right mid pole x2. . A Sensor guidewire was placed up to the level of the renal pelvis under fluoroscopy. The rigid cystoscope was removed and the inner cannula of ureteric access sheath was used under fluoroscopy to dilate the ureteric orifice. The ureteric access sheath was placed and the inner cannula with access wire removed. The digital flexible ureteral scope was placed. The initial stone had been pushed back from the UPJ to was the upper pole. It was encountered in using a 270 micro laser fiber dusted into small pieces. The stone adjacent to it in the mid pole was dusted into small pieces. A nother stone was located in the mid pole and this too was broken into small pieces. Using irrigation we tried to flush the pieces into the renal pelvis so that could be removed using suction on the access sheath. Review of the kidney showed another stone in the lower pole. This too was dusted into small pieces. Some of the pieces looked began after basket and a basket was used in attempt to grasp them. They turned out to be small and not able to be removed in the basket. A Sensor wire was placed back into the renal pelvis. The flexible urea scope was removed. The access sheath was removed. A 6 [place] by 22 cm double-J stent was placed into the renal pelvis and bladder under a combination of fluoroscopy and direct visualization. The bladder was emptied. The patient tolerated the procedure well and was extubated in the operating room, and transferred in stable condition to the recovery area. Stone debris was recovered from the catch device Pathology: Stone debris Drains: 6 [place] by 22 cm double-J stent
[2021-10-04] MEDS: Phenazopyridine HCL 100 MG TABLET PO (13:09)
[2021-10-04 13:50] LABS: Glucose, Whole Blood 231 mg/dL (60-115)
[2021-10-04] MEDS: Insulin Lispro 100 UNIT/ML 3 ML VIAL SUBCUT ×4 (14:22→21:47)
[2021-10-04 16:32] LABS: Glucose, Whole Blood 302 mg/dL (60-115)
[2021-10-04] MEDS: 0.9 % Sodium Chloride Flush 3 ML SYRINGE IVFLUSH ×2 (17:17→21:47)
[2021-10-04 20:52] LABS: Glucose, Whole Blood 393 mg/dL (60-115)
[2021-10-04] MEDS: Atorvastatin Calcium 40 MG TABLET PO (21:52)
[2021-10-05] MEDS: Heparin Sodium,Porcine 5,000 UNIT/ML VIAL 5000 UNIT SUBCUT ×2 (02:46→11:43)
[2021-10-05 03:00] VITALS: BP 166/77; PULSE 77; RESP 18; TEMP 36.5; O2SAT 97
[2021-10-05] MEDS: cefTRIAXone sodium 1 GM in 0.9 % Sodium Chloride 50 ML IV (06:40)
[2021-10-05 07:20] LABS: Glucose, Whole Blood 252 mg/dL (60-115)
[2021-10-05 07:37] VITALS: BP 169/75; PULSE 78; RESP 19; TEMP 37.1; O2SAT 96
[2021-10-05] MEDS: Insulin Lispro 100 UNIT/ML 3 ML VIAL SUBCUT ×2 (07:54→11:43)
[2021-10-05] MEDS: DULoxetine HCl 60 MG CAPSULE.DR PO (07:55)
[2021-10-05] MEDS: amLODIPine Besylate 5 MG TABLET PO (07:55)
[2021-10-05] MEDS: Omeprazole 40 MG CAPSULE.DR PO (07:55)
[2021-10-05] MEDS: Lacosamide 100 MG TABLET 200 MG PO (07:55)
[2021-10-05] MEDS: Losartan Potassium 50 MG TABLET PO (07:55)
[2021-10-05] MEDS: QUEtiapine Fumarate 25 MG TABLET PO (07:55)
[2021-10-05] MEDS: 0.9 % Sodium Chloride Flush 3 ML SYRINGE IVFLUSH (07:56)
--- NOTE | 2021-10-05 09:37 | PM.UROPN ---
Subjective Subjective Date of Service: 10/05/21 Interval history: Stable from kidney stone perspective Procedure yesterday with stenting May follow-up stent removal Physical Exam Vital Signs: Vital Signs: Last Vital Signs Temp 98.7 F 10/05/21 07:37 Pulse 78 10/05/21 07:37 Resp 19 10/05/21 07:37 BP 169/75 H 10/05/21 07:37 Pulse Ox 96 10/05/21 07:37 O2 Del Method 10/05/21 07:37 BMI result Body Mass Index 45.1 Const: General: cooperative, healthy appearing, comfortable and no acute distress Orientation/consciousness: patient oriented x3 HEENT: Face and sinus: Yes normal facial exam Mouth: moist mucous membranes Neck: Neck: Yes normal visual inspection, Yes full ROM and Yes trachea midline Chest: Chest palpation & inspection: normal inspection of the chest Resp: Effort & Inspection: normal respiratory effort, able to speak in complete sentences and no respiratory distress GI: Inspection: Yes normal to inspection Back/Spine/Pelvis: Cervical Spine: normal cervical lordosis Thoracic/Lumbar Spine: thoracic and lumbar spine normal to inspection Skin: General skin exam: no rashes or lesions noted Neuro: General: patient oriented x3, tone normal and moves all extremities Extrem: General: Yes normal to inspection and Yes capillary refill normal Urology Results Labs CBC & Chem 7: 10/02/21 03:46 10/02/21 03:46 Labs: Laboratory Results - last 24 hr 10/04/21 10/04/21 10/04/21 10:55 13:43 16:27 POC Glucose 168 H 231 H 302 H 10/04/21 10/05/21 20:42 07:15 POC Glucose 393 H* 252 H Progress Note: A&P Assessment and plan (1) Kidney stone: Status: Acute Plan Postop follow-up next week for stent removal Time Spent With Patient Time: Total time spent is greater than 50% in coordination of care (as documented) at patient's floor/unit and/or counseling patient: Progress Note: Quality Stroke Does the patient have a stroke diagnosis?: No
--- NOTE | 2021-10-05 11:05 | P.DS_ITS ---
DS: Providers Provider Date of Service: 10/05/21 Date of admission: 10/02/21 10:32 Date of discharge: 10/05/21 Primary care physician: Jennifer Ibrahim MD Admitting clinician: Seth Ronquillo Attending physician on admission: Seth Ronquillo Consults: 10/03/21 07:20 Consult to Urology Routine Consulting Provider: Jeffrey Lobato Reason for consultation: kidney stone Has provider been notified: No Attending physician on discharge: Kal Araya Discharging clinician: Erika White DS: Diagnosis Discharge Diagnosis (1) Kidney stone: Status: Acute (2) UTI (urinary tract infection): Status: Acute DS: Summary Hospital Course Hospital Course: HPI on admission: 64 year old female? with DM2, CKD3, benign brain tumor, HTN, history of kidney stones who is presenting with left sided abdominal pain similar to prior kidney stone, sever in intensitity ongoing for almost 24 hours now, she had associated nausea and vomiting, no fever or chilss. CT show??1. There is a 1 x 1.2 cm calculus in the right ureteropelvic junction, with mild prominence of the right renal pelvis and UA is positive for UTI. This is new as compared to the prior study. Hospital Course: Patient admitted for management of 1 x 1.2cm calculus in the right ureteropelvic junction with mild prominence of the right renal pelvic witih bilateral perinephric stranding and suspected UTI on UA. Normal renal function. Pain was managed with IV dilaudid and tramadol. Underwent cystoscopy and laser lithotripsy performed by Dr. Lobato with the larger stone and several smaller stones dusted into small pieces, irrigated, and recovered in catch device. A 6 [place] by 22 double-J stent was placed into the renal pelvis and bladder under fluoroscopy and direct visualization.Patient was pain free and without nasuea or vomiting following procedure. Continues with small hematuria post-operatively, likely traumatic. She will follow up with Dr. Lobato outpatient on 10/13. UA with 4+ protein, 1+ blood, 2+ leuks and 4+ bacteria. Patient had mild leukocytosis of 13.8. Treated empirically with ceftriaxone 1g daily x 3 days. Urine culture with >100,000 mixed bacterial brown characteristic of urogenital contamination. Given the leukocytosis and perinephric stranding in diabetic patient, will discharge on cefdinir 250mg BID x 5 days for UTI. Diabetes is not well controlled. Humalog increased to 16 units TID with meals and continue toujeo 30 units bid. Recommend patient receive diabetes outpatient including diet education. Hypertension was uncontrolled throughout stay. Amlodipine 5mg was added to the losartan 50mg BID with some improvement and she was advised to continue this outpatient. She received lovenox daily for DVT prophylaxis. Patient discussed with Dr. Araya at discharge. Time Spent with Patient Time attestation: Total time spent providing and/or coordinating discharge services: Discharge coordination time: Greater than 30 minutes Quality: Safe Use of Opioids Does Pt have an Active Cancer Diagnosis on the Problem List?: No Quality: Stroke Does the patient have a stroke diagnosis?: No Physical Exam Vital Signs: Vital Signs: Last Vital Signs Temp 98.7 F 10/05/21 07:37 Pulse 78 10/05/21 07:37 Resp 19 10/05/21 07:37 BP 169/75 H 10/05/21 07:37 Pulse Ox 96 10/05/21 07:37 O2 Del Method 10/05/21 07:37 BMI result Body Mass Index 45.1 DS: Data Data Completed and Pending Completed studies during hospitalization [Text1]: Pending at discharge 10/04/21 12:16 Surgical Path [Surgical] [PTH] Routine Procedures Introduction of Remdesivir Anti-infective into Peripheral Vein, Percutaneous Approach, [employer] 5 (03/28/20) Labs on day of discharge: Laboratory Results - last 24 hr 10/04/21 10/04/21 10/04/21 13:43 16:27 20:42 POC Glucose 231 H 302 H 393 H* 10/05/21 07:15 POC Glucose 252 H Preliminary micro results at discharge 10/02/21 10:59 Blood Culture - Preliminary Blood - Venous No growth after 48 hours. 10/02/21 10:59 Blood Culture - Preliminary Blood - Venous No growth after 48 hours. Discharge Plan Discharge Patient Disposition: Home, Self-Care Discharge Diagnosis: Kidney stone, UTI Referrals: Jennifer Rico MD [Primary Care Provider] - Jeffrey Lobato MD [Physician] - Vignesh Obando MD [Physician] - Discharge Medications: New amlodipine 5 mg Tablet 5 mg PO DAILY Qty: 14 0RF Protocol: Hold for SBP< HOLD for SBP < : 90 cefuroxime axetil 250 mg tablet 250 mg PO BID Qty: 10 0RF Continued (DME) FreeStyle Lite Strips Strip MISCELLANEOUS QID (DME) blood-glucose meter [FreeStyle [place] Lite] Kit MISCELLANEOUS BID lacosamide [Vimpat] 200 mg tablet 200 mg PO BID (DME) lancets [FreeStyle Lancets] 28 gauge misc 1 gauge topical BID Toujeo SoloStar U-300 Insulin 300 unit/mL (1.5 mL) insulin pen 30 unit subcut BID omeprazole 40 mg capsule,delayed release(DR/EC) 40 mg PO DAILY losartan 50 mg Tablet 50 mg PO BID quetiapine [Seroquel] 25 mg Tablet 25 mg PO DAILY atorvastatin 40 mg Tablet 40 mg PO BEDTIME nabumetone 750 mg Tablet 750 mg PO BID PRN (Reason: Pain) duloxetine 60 mg Capsule, Delayed Rel Sprinkle 60 mg PO DAILY Changed Humalog KwikPen Insulin 200 unit/mL (3 mL) insulin pen 16 unit subcut TIDAC Qty: 6 0RF Diet: Diabetic diet Activity on Discharge: As tolerated Stand Alone Forms: Patient Portal Discharge page Care Plan Goals: Prevent recurrence of kidney stones Achieve better control over glucose levels for diabetes management to prevent complications Better controlled blood pressures Health Concerns: Kidney stones Uncontrolled diabetes Uncontrolled hypertension Plan of Treatment: Follow up with Dr. Lobato in urology on 10/13 as scheduled for recurrent kidney stones. -Increased water intake to help pass residual stone particles from the urinary tract UTI -Continue oral ceftin antibiotic for 5 days Type 2 diabetes- uncontrolled. Follow up with your PCP -Increase humalog by 2 units- 16 units three times daily with meals. Continue toujeo solostar 30 units twice daily -Monitor glucose levels- goal for fasting glucose 90-130 -I think you would benefit from diabetes education to help with diet choices. Follow low carbohydrate diabetic diet. Hypertension- uncontrolled. Follow up with your PCP -Continue losartan 50mg daily. -You were started on a new medication, amlodipine 5mg in the hospital and you should continue this as well. -Low sodium diet Obesity- follow up with PCP -Follow low calorie, low carbohydrate diet to help with weight loss and increase activity levels. Assessment: You underwent laser lithotripsy to break up your kidney stone while in the hospital. You should follow up with Dr. Lobato to prevent recurrence. Patient Instructions: Kidney Stones (ED)
[2021-10-05 11:37] LABS: Glucose, Whole Blood 207 mg/dL (60-115)
[2021-10-05 12:00] VITALS: BP 171/71; PULSE 81; RESP 18; TEMP 37; O2SAT 99
--- NOTE | 2021-10-05 13:22 | MHC.CM.PN ---
PLAN IS FOR PATIENT TO DISCHARGE HOME TODAY WITH OUTPATIENT FOLLOW UP FAMILY AWARE AND WILL PROVIDE TRANSPORT
[2021-10-05 16:00] VITALS: BP 172/79; PULSE 83; RESP 18; TEMP 36.7; O2SAT 97
== END 2021-10-05 17:03 | disposition home or self-care (01) | DRG 660 ==
LOC: HO.ED 10:08 → HO.EDOVER 10:49 → HO.S3 10-03 10:03
PROVIDERS: Urology; Admitting Provider Internal Medicine; Emergency Provider Emergency Medicine; PCP Internal Medicine; Visit Provider Physician Assistant
PROC: 0T768DZ Dilation of Right Ureter with Intraluminal Device, Via Natural or Artificial Opening Endoscopic (ICD-10-PCS; principal; 2021-10-04 15:20)
DX: N20.0 Calculus of kidney (principal); N39.0 Urinary tract infection, site not specified; Z68.42 Body mass index [BMI] 45.0-49.9, adult; Z20.822 Contact with and (suspected) exposure to COVID-19; I12.9 Hypertensive chronic kidney disease with stage 1 through stage 4 chronic kidney disease, or unspecified chronic kidney disease; E11.22 Type 2 diabetes mellitus with diabetic chronic kidney disease; N18.30 Chronic kidney disease, stage 3 unspecified; E66.9 Obesity, unspecified; Z71.3 Dietary counseling and surveillance; Z86.16 Personal history of COVID-19; Z56.0 Unemployment, unspecified; Z79.4 Long term (current) use of insulin; Z79.899 Other long term (current) drug therapy
CPT/HCPCS: 36415; 74176; 80053; 81001; 82248; 82365; 82947; 83605; 83690; 85027; 87040; 87086; 87635; 88300; 93005; 96365; 96375; 99285; C1758; C1769; C2617; J0696; J1100; J1170; J1956; J2270; J2405; J3010; Q9965

== ENCOUNTER → 2021-10-13 10:16 | Outpatient (BNVA) | payer MEDICARE, MEDICAID, SELFPAY | PROVIDERS: PCP Internal Medicine; Visit Provider Urology | DX: N20.0 Calculus of kidney (principal) | CPT/HCPCS: 52310; 99212 ==

== ENCOUNTER 2021-10-20 13:59 | Outpatient (REF) | payer MEDICARE, MEDICAID, SELFPAY ==
--- NOTE | ~2021-10-20 | MM_ITS ---
EXAMINATION: MM SCREENING DIGITAL BREAST TOMOSYNTHESIS, BILATERAL CLINICAL INFORMATION: Screening. Asymptomatic. The lifetime risk of breast cancer based on the Tyrer-Cuzick Model is 4%. COMPARISON: Mammography: 12/06/2018, 12/04/2018 TECHNIQUE: Digital breast tomosynthesis is performed in both the craniocaudal and mediolateral oblique views along with computer-aided detection (CAD). Synthesized 2D images are generated from the tomosynthesis. Additional exaggerated right CC view is provided. FINDINGS: There are scattered areas of fibroglandular density (ACR BI-RADS breast composition Category b). Parenchymal pattern is similar to prior exams. There is no interval mass or architectural abnormality. Incidental intramammary node is again noted upper outer quadrant left breast. The grouped calcifications posterior upper outer right breast are without significant change since 2019. They are circumferential arranged and likely related to fibroadenomatous changes. There are no interval suspicious calcifications. The axilla and skin contours are unremarkable. MM/MM tomosynthesis screening BI IMPRESSION: No mammographic evidence of malignancy. ASSESSMENT: BI-RADS 2: Benign RECOMMENDATION: Routine annual mammography screening. This patient's information was entered into a reminder system with a target due date for their next mammogram.
== END 2021-10-20 14:00 | disposition home or self-care (01) ==
LOC: HO.MAMMO 13:59
PROVIDERS: PCP Internal Medicine; Visit Provider Internal Medicine
DX: Z12.31 Encounter for screening mammogram for malignant neoplasm of breast (principal)
CPT/HCPCS: 77063; 77067

== ENCOUNTER 2021-12-05 23:03 | Emergency (ER) | payer MEDICARE, MEDICAID, SELFPAY ==
[2021-12-05 23:46] VITALS: BP 157/68; PULSE 93; RESP 24; TEMP 36.4; O2SAT 99; BMI 47.9
[2021-12-06 00:04] LABS: Alanine Aminotransferase 10 U/L (0-31); Albumin Level 2.9 g/dL (3.5-5.0); Alkaline Phosphatase 126 U/L (39-117); Anion Gap 15 (12-20); Aspartate Amino Transferase 13 U/L (5-31); Bilirubin Direct < 0.2 mg/dL (0.0-0.5); Bilirubin Total 0.3 mg/dL (0.0-1.0); Blood Urea Nitrogen 33 mg/dL (9-16); Calcium 8.4 mg/dL (8.4-10.2); Carbon Dioxide 21 mmol/L (22-29); Chloride 109 mmol/L (96-108); Creatinine Clr Calc Pharmacy 51.2; Estimated Glomerular Filt Rate 39; Glucose Random 210 mg/dL (60-115); Hematocrit 26.4 % (37.0-47.0); Hemoglobin 8.9 g/dl (12.0-16.0); Lipase 24 U/L (8-78); Mean Corpuscular HGB Conc 33.7 g/dl (31.0-35.0); Mean Corpuscular Hemoglobin 30.6 pg (27.0-33.0); Mean Corpuscular Volume 90.7 fL (80.0-98.0); PLT CLUMP 1; Potassium 4.4 mmol/L (3.3-5.1); Red Blood Count 2.91 X10*6/uL (4.20-5.50); Red Cell Distribution Width 12.3 % (11.0-16.0); Sodium 141 mmol/L (135-145); Total Protein 5.8 g/dL (6.5-8.0)
[2021-12-06 00:10] LABS: White Blood Count 8.9 X10*3/uL (4.8-10.8)
[2021-12-06 02:10] VITALS: BP 153/67; PULSE 92; RESP 20; TEMP 36.5; O2SAT 99
== END 2021-12-06 05:24 | disposition left against medical advice (07) ==
PROVIDERS: Emergency Provider Emergency Medicine
DX: R06.02 Shortness of breath (principal); R22.43 Localized swelling, mass and lump, lower limb, bilateral; E11.22 Type 2 diabetes mellitus with diabetic chronic kidney disease; N18.30 Chronic kidney disease, stage 3 unspecified; Z87.442 Personal history of urinary calculi
CPT/HCPCS: 36415; 80053; 82248; 83690; 85027; 99283

== ENCOUNTER 2021-12-20 12:28 | Inpatient (IN) | payer MEDICARE, MEDICAID, SELFPAY ==
--- NOTE | ~2021-12-20 | XR_ITS ---
EXAMINATION: XR CHEST CLINICAL INFORMATION: Shortness of breath. COMPARISON: 03/28/2020 chest radiograph. TECHNIQUE: Frontal view of the chest was obtained. FINDINGS: Mild asymmetric opacification is seen in the left lower lung. Left upper lung field and right lung are clear. The heart and mediastinal structures are unremarkable. XR/XR chest 1V IMPRESSION: Mild asymmetric opacification the left lower lung could be projectional representing soft tissue attenuation however an underlying infiltrate cannot be excluded.
--- NOTE | 2021-12-20 12:39 | ECG_ITS ---
Test Reason : SOB Blood Pressure : / mmHG Vent. Rate : 094 BPM Atrial Rate : 094 BPM P-R Int : 170 ms QRS Dur : 094 ms QT Int : 350 ms P-R-T Axes : 046 013 038 degrees QTc Int : 437 ms Normal sinus rhythm Normal ECG When compared with ECG of 02-OCT-2021 04:22, No significant change was found Referred By: Yancy Jacobson Electronically Signed By:YAHIR RIVAS MD
--- NOTE | 2021-12-20 12:41 | ED_ITS ---
HPI - General Adult General Chief complaint: Dyspnea Stated complaint: DIFF BREATHING FROM DR OFF,92% RA PER EMS Time Seen by Provider: 12/20/21 12:38 Source: patient, EMS and electrical tester Mode of arrival: EMS Limitations: language barrier History of Present Illness HPI narrative: Patient is a 66 year old assigned female at with a history of DM, COPD, and asthma presenting to the emergency department today with increased shortness of breath. Patient states that over the last few weeks her breathing has gotten much worse. Patient states that she was using breathing treatments but it isn't helping. Patient denies any dizziness, lightheadedness, abdominal pain, nausea, vomiting, fever, chills, blurry vision, double vision, loss of vision, chest pain, back pain, night sweats, pain with urination, increased urinary frequency, increased urinary urgency, blood in her urine or stool, syncope or a near syncopal episode, recent trauma or falls, bowel incontinence, bladder incontinence, bowel retention, bladder retention, or any other complaints at this time. Onset (ago): week(s) Severity: mild Severity scale (1-10): 6 Relieving factors: none Exacerbating factors: movement Associated symptoms: shortness of breath Treatments prior to arrival: none Related Data Home Medications Medication Instructions Recorded Confirmed blood sugar diagnostic (FreeStyle 03/28/20 10/13/21 Lite Strips) blood-glucose meter (FreeStyle 03/28/20 10/13/21 Palco Lite kit) lacosamide 200 mg tablet (Vimpat) 200 mg PO BID 03/28/20 12/20/21 lancets 28 gauge (FreeStyle 03/28/20 10/13/21 Lancets) insulin glargine U-300 conc 300 30 unit subcut BID 03/29/20 12/20/21 unit/mL (1.5 mL) subcutaneous pen (Wolf SoloStevans U-300 Insulin) duloxetine 60 mg capsule,delayed 60 mg PO DAILY 10/02/21 12/20/21 release sprinkle losartan 50 mg tablet 50 mg PO BID 10/02/21 12/20/21 nabumetone 750 mg tablet 750 mg PO BID PRN Pain 10/02/21 10/13/21 omeprazole 40 mg capsule,delayed 40 mg PO DAILY 10/02/21 12/20/21 release quetiapine 25 mg tablet (Seroquel) 25 mg PO BEDTIME PRN Sleep 10/02/21 12/20/21 blood pressure test kit-large #1 ea 10/12/21 10/13/21 albuterol sulfate 90 mcg/actuation 2 puff inhalation Q4-6H PRN 12/20/21 12/20/21 aerosol inhaler (Proventil HFA) Shortness Of Breath amlodipine 10 mg tablet 1 tab PO DAILY 12/20/21 12/20/21 atorvastatin 80 mg tablet 1 tab PO DAILY 12/20/21 12/20/21 famotidine 20 mg tablet 1 tab PO BID 12/20/21 12/20/21 oxybutynin chloride 10 mg 1 tab PO DAILY 12/20/21 12/20/21 tablet,extended release 24 hr Previous Rx's Medication Instructions Recorded insulin lispro 200 unit/mL (3 mL) 16 unit (0.08 mL) subcut TIDAC #6 10/05/21 subcutaneous pen (Humalog KwikPen mL U-200 Insulin) trimethoprim 100 mg tablet 100 mg PO DAILY 90 days #90 tabs 10/13/21 Allergies Allergy/AdvReac Type Severity Reaction Status Date / Time egg Allergy Mild Abdominal Verified 10/12/21 15:23 Pain Review of Systems Constitutional: Constitutional: Reports no additional constitutional complaints, Denies chills, Denies fever(s) and Denies night sweats Eyes: Eyes: Reports no additional eye complaints, Denies blurry vision, Denies change in vision, Denies diplopia, Denies eye discharge, Denies loss of vision and Denies eye pain ENT: Denies dizziness Cardiovascular: Cardiovascular: Reports no additional cardiovascular complaints, Denies chest pain, Denies lightheadedness, Denies Loss of Consciousness and Reports dyspnea Respiratory: Respiratory: Reports no additional respiratory complaints, Reports dyspnea and Reports wheezing Gastrointestinal: Gastrointestinal: Reports no additional gastrointestinal complaints, Denies abdominal pain, Denies melena, Denies hematochezia, Denies change in bowel habits and Denies change in stool character Genitourinary: Genitourinary: Denies hematuria, Denies urinary frequency, Denies dysuria, Denies urinary incontinence, Denies urinary hesitancy and Denies urinary urgency Musculoskeletal: Musculoskeletal: Reports no additional musculoskeletal complaints, Denies numbness and Denies tingling Neurologic: Denies dizziness, Denies loss of vision, Denies numbness and Denies tingling Psychiatric: Psychiatric: Reports no additional psychiatric complaints Endocrine: Endocrine: Reports no additional endocrine complaints Hematologic/Lymphatic: Hematologic/Lymphatic: Reports no additional hematologic/lymphatic complaints Allergic/Immunologic: Allergic/Immunologic: Reports no additional allergic/immunologic complaints and Reports wheezing PMFSH Past Medical History Attestation statement: The following information was validated with the patient. Source: old records reviewed Medical History Acute hypoxemic respiratory failure due to COVID-19 Brain tumor CKD (chronic kidney disease) stage 3, GFR 30-59 ml/min COVID-19 COVID-19 virus infection Depression Diabetes Gastritis Gastritis HLD (hyperlipidemia) Kidney stone Seizure Surgical History H/O hernia repair History of cholecystectomy Family History Family History Father CAD (coronary artery disease) Brother Lung cancer Sister Kidney stone Social History Social History Household Members: Children Housing: Apartment Do you presently have visiting nurse or other home services: No Alcohol intake: never Patient Tobacco Use Status: Never used Tobacco Smoked in Last 30 Days: No Advance Directives: No Advance Directives Information Provided: Yes service: No Current occupational status: unemployed Physical Exam ED Vital Signs: Vital Signs - 24 hr 12/20/21 12:56 12/20/21 12:57 Temperature 98.6 F Pulse Rate 91 90 Respiratory Rate 16 21 H Blood Pressure 145/69 H Pulse Oximetry 100 Oxygen Delivery Method Room Air BMI result Body Mass Index 49.8 Const General: cooperative, no acute distress, alert and awake Nutritional Appearance: well nourished Orientation/consciousness: patient oriented x3 Limitations: no limitations HENMT Head: Yes normal to inspection and Yes atraumatic Ears: hearing grossly normal bilaterally and external ears normal General nose exam: Normal external nose present, no nasal discharge noted and no epistaxis Face and sinus: Yes normal facial exam, No abrasion and No laceration Mouth: Normal oral and palatal mucosa present, no drooling and no muffled voice Eyes General: appearance normal, both eyes and all related structures Periorbital: periorbital findings normal Eyelids: Yes eyelids normal Conjunctivae: conjunctivae normal Pupils: Equal, round and reactive pupils present EOM: EOMs intact bilaterally Neck Neck: Yes normal visual inspection, Yes full ROM and Yes no lymphadenopathy Chest Chest palpation & inspection: normal inspection of the chest Resp Effort & Inspection: able to speak in complete sentences, labored and tachypneic Auscultation: wheezes throughout Cardio Rate: regular rate Rhythm: regular rhythm GI Inspection: Yes normal to inspection Neuro General: patient oriented x3 and moves all extremities Cranial nerves: Yes Equal, round and reactive pupils present Cognition (Neuro): normal cognition Motor exam (neuro): 5/5 motor strength present throughout Sensory Exam: Normal double simultaneous stimulation for sensation Coordination: [id number] test normal Extrem General: Yes normal to inspection, Yes full ROM and Yes capillary refill normal Psych Appearance: grossly normal Mental Status: mental status grossly normal Affect: normal affect Attitude: cooperative Thought process: Normal thought process present Thought content: Normal thought content present Insight: Good insight present (Psych) Medications Administered Generic Name Dose Route Start Last Admin Trade Name Freq PRN Reason Stop Dose Admin Enoxaparin Sodium 40 mg 12/20/21 17:30 12/20/21 18:16 Enoxaparin Sodium 40 Mg/0.4 Ml Syringe SUBCUT 40 mg Q24H KATHERINE Administration Doxycycline Hyclate 100 mg/ 250 mls @ 166.67 mls/hr 12/20/21 17:15 12/20/21 18:15 Sodium Chloride IV 166.67 mls/hr Q12H KATHERINE Administration Discontinued Medications Generic Name Dose Route Start Last Admin Trade Name Freq PRN Reason Stop Dose Admin Albuterol Sulfate 5 mg/ 0 mg 12/20/21 12:43 12/20/21 12:53 Albuterol/Ipratropium 3 ml INHALE 12/20/21 12:44 2.5 each ONCE ONE Administration Dexamethasone Sodium Phosphate 10 mg 12/20/21 12:43 12/20/21 12:52 Dexamethasone Sod Phosphate 10 Mg/Ml Vial IVPUSH 12/20/21 12:44 10 mg ONCE ONE Administration Magnesium Sulfate/Dextrose 1 gm in 100 mls @ 100 mls/hr 12/20/21 12:43 12/20/21 16:26 Magnesium Sulfate/D5w IV 12/20/21 13:42 Infused ONCE ONE Infusion Ceftriaxone Sodium 2 gm/ 50 mls @ 100 mls/hr 12/20/21 13:52 12/20/21 16:25 Sodium Chloride IV 12/20/21 14:21 100 mls/hr ONCE ONE Administration Medical Decision Making MDM Narrative Medical decision making narrative: Patient is a 66 year old assigned female at with a history of DM, COPD, and asthma presenting to the emergency department today with increased shortness of breath. Patient's physical exam showed an individual in mild respiratory distress with restricted lung sounds. Patient's blood work showed an elevated WBC count of 18.2, a BNP of 132, and a CR of 1.43. Patient's EKG was unremarkable. Patient's chest x-ray showed possible infiltrate of the left lower lung. Given the patient's current clinical presentation, I believe the patient to have pneumonia. Patient was given IV Rocephin. Patient's clinical picture is not consistent with sepsis and sepsis is not suspected. I spoke to the hospitalist team who agreed to admission. I explained my physical exam findings as well as all test results to the patient. I answered all questions asked by the patient. Patient received IV steroids and a duoneb which she stated helped her symptoms significantly. Patient verbalized agreement and understanding with this treatment plan and admission. Medical Records Medical records reviewed: Yes I reviewed the patient's medical records. Lab Data Lab results reviewed: Yes I reviewed the patient's lab results. Result diagrams: 12/20/21 13:14 12/20/21 13:14 Labs: Lab Results 12/20/21 12/20/21 12/20/21 Range/Units 13:14 13:14 13:14 WBC 18.2 H (4.8-10.8) X10*3/uL RBC 3.07 L (4.20-5.50) X10*6/uL Hgb 9.3 L (12.0-16.0) g/dl Hct 28.5 L (37.0-47.0) % MCV 92.8 (80.0-98.0) fL MCH 30.3 (27.0-33.0) pg MCHC 32.6 (31.0-35.0) g/dl RDW 12.6 (11.0-16.0) % Plt Count TNP MPV Not Reportable Immature Gran % (Auto) 0.8 H (0.0-0.4) % Neut % (Auto) 87.4 H (45-73) % Lymph % (Auto) 6.0 L (20-40) % [place] % (Auto) 5.0 (2-11) % Eos % (Auto) 0.4 (0-4) % Baso % (Auto) 0.4 (0-2) % Lymph # (Auto) 1.1 L (1.2-4.9) X10*3/uL [place] # (Auto) 0.9 (0.1-1.2) X10*3/uL Eos # (Auto) 0.1 (0.0-0.4) X10*3/uL Baso # (Auto) 0.1 (0.0-0.2) X10*3/uL Abs Immat Gran (auto) 0.15 H (0.00-0.03) X10*3/uL Absolute Neuts (auto) 15.9 H (2.0-8.3) x10*3/uL Absolute Nucleated RBC 0.000 (0.0-0.012) X10*3/uL Nucleated RBC % (auto) 0.0 (0.0-0.2) /100WBC Smear Tech's Comments VERIFIED VBG pH (7.32-7.43) VBG pCO2 mmHg VBG pO2 mmHg VBG HCO3 (22-26) mmol/L VBG O2 Saturation % VBG Base Excess mmol/L Sodium 145 (135-145) mmol/L Potassium 4.6 (3.3-5.1) mmol/L Chloride 110 H (96-108) mmol/L Carbon Dioxide 23 (22-29) mmol/L Anion Gap 17 (12-20) BUN 34 H (9-16) mg/dL Creatinine 1.43 H (0.5-1.4) mg/dL Estim Creat Clear Calc 47.3 Estimated GFR 37 Random Glucose 88 (60-115) mg/dL Estimat Average Glucose mg/dL Hemoglobin A1c % % Lactic Acid (0.5-2.0) mmol/L Calcium 8.7 (8.4-10.2) mg/dL Magnesium 1.8 (1.6-2.6) mg/dL Total Bilirubin 0.4 (0.0-1.0) mg/dL AST 17 (5-31) U/L ALT 12 (0-31) U/L Alkaline Phosphatase 144 H (39-117) U/L Troponin I High Sens 9.4 (<3.5-17.0) ng/L B-Natriuretic Peptide (<100) pg/mL Total Protein 6.4 L (6.5-8.0) g/dL Albumin 3.2 L (3.5-5.0) g/dL Procalcitonin ng/mL Influenza Type A (PCR) (Negative) Influenza Type B (PCR) (Negative) RSV RNA Qual (PCR) (Negative) SARS-CoV-2 RNA (RT-PCR) (Negative) 12/20/21 12/20/21 12/20/21 Range/Units 13:14 13:14 13:14 WBC (4.8-10.8) X10*3/uL RBC (4.20-5.50) X10*6/uL Hgb (12.0-16.0) g/dl Hct (37.0-47.0) % MCV (80.0-98.0) fL MCH (27.0-33.0) pg MCHC (31.0-35.0) g/dl RDW (11.0-16.0) % Plt Count MPV Immature Gran % (Auto) (0.0-0.4) % Neut % (Auto) (45-73) % Lymph % (Auto) (20-40) % [place] % (Auto) (2-11) % Eos % (Auto) (0-4) % Baso % (Auto) (0-2) % Lymph # (Auto) (1.2-4.9) X10*3/uL [place] # (Auto) (0.1-1.2) X10*3/uL Eos # (Auto) (0.0-0.4) X10*3/uL Baso # (Auto) (0.0-0.2) X10*3/uL Abs Immat Gran (auto) (0.00-0.03) X10*3/uL Absolute Neuts (auto) (2.0-8.3) x10*3/uL Absolute Nucleated RBC (0.0-0.012) X10*3/uL Nucleated RBC % (auto) (0.0-0.2) /100WBC Smear Tech's Comments VBG pH (7.32-7.43) VBG pCO2 mmHg VBG pO2 mmHg VBG HCO3 (22-26) mmol/L VBG O2 Saturation % VBG Base Excess mmol/L Sodium (135-145) mmol/L Potassium (3.3-5.1) mmol/L Chloride (96-108) mmol/L Carbon Dioxide (22-29) mmol/L Anion Gap (12-20) BUN (9-16) mg/dL Creatinine (0.5-1.4) mg/dL Estim Creat Clear Calc Estimated GFR Random Glucose (60-115) mg/dL Estimat Average Glucose 154 mg/dL Hemoglobin A1c % 7.0 % Lactic Acid (0.5-2.0) mmol/L Calcium (8.4-10.2) mg/dL Magnesium (1.6-2.6) mg/dL Total Bilirubin (0.0-1.0) mg/dL AST (5-31) U/L ALT (0-31) U/L Alkaline Phosphatase (39-117) U/L Troponin I High Sens (<3.5-17.0) ng/L B-Natriuretic Peptide 132 H (<100) pg/mL Total Protein (6.5-8.0) g/dL Albumin (3.5-5.0) g/dL Procalcitonin ng/mL Influenza Type A (PCR) NEGATIVE (Negative) Influenza Type B (PCR) NEGATIVE (Negative) RSV RNA Qual (PCR) NEGATIVE (Negative) SARS-CoV-2 RNA (RT-PCR) NEGATIVE (Negative) 12/20/21 12/20/21 12/20/21 Range/Units 13:14 13:18 15:15 WBC (4.8-10.8) X10*3/uL RBC (4.20-5.50) X10*6/uL Hgb (12.0-16.0) g/dl Hct (37.0-47.0) % MCV (80.0-98.0) fL MCH (27.0-33.0) pg MCHC (31.0-35.0) g/dl RDW (11.0-16.0) % Plt Count MPV Immature Gran % (Auto) (0.0-0.4) % Neut % (Auto) (45-73) % Lymph % (Auto) (20-40) % [place] % (Auto) (2-11) % Eos % (Auto) (0-4) % Baso % (Auto) (0-2) % Lymph # (Auto) (1.2-4.9) X10*3/uL [place] # (Auto) (0.1-1.2) X10*3/uL Eos # (Auto) (0.0-0.4) X10*3/uL Baso # (Auto) (0.0-0.2) X10*3/uL Abs Immat Gran (auto) (0.00-0.03) X10*3/uL Absolute Neuts (auto) (2.0-8.3) x10*3/uL Absolute Nucleated RBC (0.0-0.012) X10*3/uL Nucleated RBC % (auto) (0.0-0.2) /100WBC Smear Tech's Comments VBG pH 7.41 (7.32-7.43) VBG pCO2 38 mmHg VBG pO2 50 mmHg VBG HCO3 24 (22-26) mmol/L VBG O2 Saturation 82.0 % VBG Base Excess 0.3 mmol/L Sodium (135-145) mmol/L Potassium (3.3-5.1) mmol/L Chloride (96-108) mmol/L Carbon Dioxide (22-29) mmol/L Anion Gap (12-20) BUN (9-16) mg/dL Creatinine (0.5-1.4) mg/dL Estim Creat Clear Calc Estimated GFR Random Glucose (60-115) mg/dL Estimat Average Glucose mg/dL Hemoglobin A1c % % Lactic Acid 1.7 (0.5-2.0) mmol/L Calcium (8.4-10.2) mg/dL Magnesium (1.6-2.6) mg/dL Total Bilirubin (0.0-1.0) mg/dL AST (5-31) U/L ALT (0-31) U/L Alkaline Phosphatase (39-117) U/L Troponin I High Sens (<3.5-17.0) ng/L B-Natriuretic Peptide (<100) pg/mL Total Protein (6.5-8.0) g/dL Albumin (3.5-5.0) g/dL Procalcitonin 0.07 ng/mL Influenza Type A (PCR) (Negative) Influenza Type B (PCR) (Negative) RSV RNA Qual (PCR) (Negative) SARS-CoV-2 RNA (RT-PCR) (Negative) Imaging Data Chest x-ray: Attestation: I personally reviewed and interpreted this imaging study as follows: My impression: Possible left sided pneumonia Radiologist's impression: EXAMINATION: XR CHEST CLINICAL INFORMATION: Shortness of breath. COMPARISON: 03/28/2020 chest radiograph. TECHNIQUE: Frontal view of the chest was obtained. FINDINGS: Mild asymmetric opacification is seen in the left lower lung. Left upper lung field and right lung are clear. The heart and mediastinal structures are unremarkable. XR/XR chest 1V IMPRESSION: Mild asymmetric opacification the left lower lung could be projectional representing soft tissue attenuation however an underlying infiltrate cannot be excluded. Dictated By: Ehsan Kwon MD Signed By: Electronically signed by Ehsan Kwon MD 12/20/21 1347 ECG Data Attestation: I personally reviewed and interpreted this ECG as follows: Prior ECG tracings: available for review Interpretation: Vent. Rate: 094 BPM ? ? Atrial Rate: 094 BPM P-R Int: 170 ms? QRS Dur: 094 ms QT Int: 350 ms ? ? ? P-R-T Axes: 046 013 038 degrees QTc Int: 437 ms ? Normal sinus rhythm Normal ECG When compared with ECG of 02-OCT-2021 04:22, No significant change was found Electronically Signed By:YAHIR RIVAS MD Dictated By: Jeffry Rivas MD Signed By: Electronically signed by Jeffry Rivas MD 12/20/21 1542 Critical Care Time Critical Care Time Critical Care Time: Yes Total Critical Care Time: 30 Attestation: I spent 30 minutes of Critical Care Time with this patient. This does not include time spent on separately reported billable procedures. Discharge Plan Discharge Clinical Impression: Hypoxia, Pneumonia Patient Disposition: Admitted As Inpatient
[2021-12-20] MEDS: dexAMETHasone sod phosphate 10 MG/ML VIAL IVPUSH (12:52)
[2021-12-20] MEDS: Magnesium Sulfate/D5W 1 GM/100 ML PIGGYBACK IV (12:52)
[2021-12-20] MEDS: Albuterol Sulfate 5 MG, Albuterol/Iprat 2.5/0.5MG 3 ML 3 ML INHALE (12:53)
[2021-12-20 12:56] VITALS: BP 145/69; BP 182/87; PULSE 110; PULSE 91; RESP 16; TEMP 37; O2SAT 100; O2SAT 98; BMI 49.8
[2021-12-20 12:57] VITALS: PULSE 90; RESP 21; O2SAT 100
[2021-12-20 13:22] LABS: Venous Blood Gas Refer to POC result
[2021-12-20 13:24] LABS: VBG Base Excess 0.3 mmol/L; VBG HCO3 24 mmol/L (22-26); VBG pCO2 38 mmHg; VBG pH 7.41 (7.32-7.43); VBG pO2 50 mmHg
[2021-12-20 13:28] LABS: Basophils Absolute Auto 0.1 X10*3/uL (0.0-0.2); Basophils Percent Auto 0.4 % (0-2); Eosinophils Absolute Auto 0.1 X10*3/uL (0.0-0.4); Eosinophils Percent Auto 0.4 % (0-4); Hematocrit 28.5 % (37.0-47.0); Hemoglobin 9.3 g/dl (12.0-16.0); Imm Gran Abs Auto 0.15 X10*3/uL (0.00-0.03); Imm Gran Pct Auto 0.8 % (0.0-0.4); Lymphocytes Absolute Auto 1.1 X10*3/uL (1.2-4.9); MANUAL DIFF FLAG SCAN; Mean Corpuscular HGB Conc 32.6 g/dl (31.0-35.0); Mean Corpuscular Hemoglobin 30.3 pg (27.0-33.0); Mean Corpuscular Volume 92.8 fL (80.0-98.0); Monocytes Absolute Auto 0.9 X10*3/uL (0.1-1.2); Neutrophils Absolute Auto 15.9 x10*3/uL (2.0-8.3); Neutrophils Percent Auto 87.4 % (45-73); PLT CLUMP 1; Red Blood Count 3.07 X10*6/uL (4.20-5.50); Red Cell Distribution Width 12.6 % (11.0-16.0); SCAN SMEAR FLAG 1
[2021-12-20 13:46] LABS: White Blood Count 18.2 X10*3/uL (4.8-10.8)
[2021-12-20 13:47] LABS: SLIDE REVIEW VERIFIED
[2021-12-20 13:51] LABS: Alanine Aminotransferase 12 U/L (0-31); Albumin Level 3.2 g/dL (3.5-5.0); Alkaline Phosphatase 144 U/L (39-117); Anion Gap 17 (12-20); Aspartate Amino Transferase 17 U/L (5-31); Bilirubin Total 0.4 mg/dL (0.0-1.0); Blood Urea Nitrogen 34 mg/dL (9-16); Calcium 8.7 mg/dL (8.4-10.2); Carbon Dioxide 23 mmol/L (22-29); Chloride 110 mmol/L (96-108); Creatinine Clr Calc Pharmacy 47.3; Estimated Glomerular Filt Rate 37; Glucose Random 88 mg/dL (60-115); Magnesium 1.8 mg/dL (1.6-2.6); Potassium 4.6 mmol/L (3.3-5.1); Sodium 145 mmol/L (135-145); Total Protein 6.4 g/dL (6.5-8.0); Troponin-I High Sensitivity 9.4 ng/L (<3.5-17.0)
[2021-12-20 13:52] LABS: B Type Natriuretic Peptide 132 pg/mL (<100)
--- NOTE | 2021-12-20 14:00 | PC.NURSE ---
patient assessed with us of medical transcriptionist , primary language Zak patel . heart rate regular at 95 beats per minute . breathing labored , lungs sounds , diminished , wheezing noted in upper lobes . non productive cough noted . R.T at bedside for neb treatment . IV placed in left A . C by EMS skin pink warm and dry . plus 2 pitting edema noted bilaterally in lower extremities . abdomen soft . not tender . positive bowel sounds in all four quadrants . labs sent . patient aware of plan of care .
[2021-12-20 14:10] LABS: Influenza A PCR NEGATIVE (Negative); Influenza B PCR NEGATIVE (Negative); Resp Syncy Virus RNA Qual PCR NEGATIVE (Negative); SARS COV2 PCR INHOUSE NEGATIVE (Negative)
--- NOTE | 2021-12-20 15:30 | PC.NURSE ---
Breathing improved . wheezing diminished after treatment . patient aware of plan of care for admission .
[2021-12-20 16:04] LABS: Lactic Acid 1.7 mmol/L (0.5-2.0)
[2021-12-20] MEDS: cefTRIAXone sodium 2 GM in 0.9 % Sodium Chloride 50 ML IV (16:25)
--- NOTE | 2021-12-20 17:32 | P.HPHOSP_ITS ---
History of Present Illness Date of Service: 12/20/21 Chief Complaint: dyspnea, cough This history was taken in [place] from the patient. 66yo F with DM2, CKD3, benign brain tumor, seizure disorder, HTN, nephrolithia sis who presents with 1 week of worsening dyspnea, wheeze, and dry cough. Using her albuterol inhaler without relief. No fever, chills, purulent sputum, or hemoptysis. Chest pain with coughing. No lightheadedness. No sick contacts. In the ED, she was initially hypoxic to 87% but recovered to 96%. Her breathing was labored and she was tachypneic with diffuse wheezing. WBCs were elevated to 18.2 with 87% PMNs. Venous blood gas pH 7.41, pCO2 38. CXR showed LLL infiltrate. Influenza/Covid-19/RSV PCR negative. She was given a 5mg Duoneb, 2g of IV ceftriaxone, 1g of IV magnesium sulfate, and 10mg of IV dexamethasone. Review of Systems Review of Systems: Yes all other systems are reviewed and are negative [facility] Medical History Acute hypoxemic respiratory failure due to COVID-19 Brain tumor CKD (chronic kidney disease) stage 3, GFR 30-59 ml/min COVID-19 COVID-19 virus infection Depression Diabetes Gastritis Gastritis HLD (hyperlipidemia) Kidney stone Seizure Family History Father CAD (coronary artery disease) Brother Lung cancer Sister Kidney stone Surgical History H/O hernia repair History of cholecystectomy Social History Household Members: Children Housing: Apartment Do you presently have visiting nurse or other home services: No Alcohol intake: never Patient Tobacco Use Status: Never used Tobacco Smoked in Last 30 Days: No Advance Directives: No Advance Directives Information Provided: Yes service: No Current occupational status: unemployed Meds Allergies Allergy/AdvReac Type Severity Reaction Status Date / Time egg Allergy Mild Abdominal Verified 10/12/21 15:23 Pain Active Medications: Current Medications Acetaminophen (Acetaminophen 325 Mg Tablet) 650 mg PO Q6H PRN PRN Reason: Pain, Mild (Pain Scale 1-3) Albuterol Sulfate (Albuterol Sulfate (0.083%) 2.5 Mg/3 Ml Vial.Neb) 2.5 mg INHALE Q2H PRN PRN Reason: Shortness of Breath/Wheezing Albuterol/Ipratropium (Albuterol/Iprat 2.5/0.5mg 3 Ml Ampul.Neb) 3 ml INHALE RQ4H WHILE AWAKE [facility] Dextrose (Dextrose 50 % 25 Gm/50 Ml Syringe) 25 gm IVPUSH Q15M PRN; Protocol PRN Reason: per Hypoglycemia Standing Ord. Docusate Sodium (Docusate Sodium 100 Mg Capsule) 100 mg PO BID PRN PRN Reason: Constipation Enoxaparin Sodium (Enoxaparin Sodium 40 Mg/0.4 Ml Syringe) 40 mg SUBCUT Q24H [facility] Glucose (Glucose Gel 15 Gm Gel..Gram.) 15 gm PO Q15M PRN; Protocol PRN Reason: per Hypoglycemia Standing Ord. Ceftriaxone Sodium 1 gm/ (Sodium Chloride) 50 mls @ 100 mls/hr IV Q24H [facility] Doxycycline Hyclate 100 mg/ (Sodium Chloride) 250 mls @ 166.67 mls/hr IV Q12H [facility] Insulin Human Lispro (Insulin Lispro 100 Unit/Ml 3 Ml Vial) 0 unit SUBCUT QIDACHS [facility]; Protocol Methylprednisolone Sodium Succinate (Methylprednisolone Sod Succ 40 Mg/Ml Vial) 40 mg IVPUSH Q24H [facility] Ondansetron HCl (Ondansetron Hcl 4 Mg/2 Ml Vial) 4 mg IVPUSH Q8H PRN PRN Reason: Nausea and Vomiting Pharmacy Consult (Consult Rx Perform Med Rec) 1 each MISCELLANE STAT STA Stop: 12/20/21 17:00 Senna (Sennosides 8.6 Mg Tablet) 17.2 mg PO BEDTIME PRN PRN Reason: Constipation Sodium Chloride (0.9 % Sodium Chloride Flush 3 Ml Syringe) 3 ml IVFLUSH QSHIFT [facility] Home Medications Medication Instructions Recorded Confirmed Last Taken Type blood sugar diagnostic (FreeStyle 03/28/20 10/13/21 Unknown History Lite Strips) blood-glucose meter (FreeStyle 03/28/20 10/13/21 Unknown History [place] Lite kit) lacosamide 200 mg tablet (Vimpat) 200 mg PO BID 03/28/20 10/13/21 10/01/21 History lancets 28 gauge (FreeStyle 03/28/20 10/13/21 Unknown History Lancets) insulin glargine U-300 conc 300 30 unit subcut BID 03/29/20 10/13/21 10/01/21 History unit/mL (1.5 mL) subcutaneous pen (Touaayush SoloStar U-300 Insulin) duloxetine 60 mg capsule,delayed 60 mg PO DAILY 10/02/21 10/13/21 10/01/21 History release sprinkle losartan 50 mg tablet 50 mg PO BID 10/02/21 10/13/21 10/01/21 History nabumetone 750 mg tablet 750 mg PO BID PRN Pain 10/02/21 10/13/21 Unknown History omeprazole 40 mg capsule,delayed 40 mg PO DAILY 10/02/21 10/13/21 10/01/21 History release quetiapine 25 mg tablet (Seroquel) 25 mg PO DAILY 10/02/21 10/13/21 10/01/21 History blood pressure test kit-large #1 ea 10/12/21 10/13/21 Unknown History albuterol sulfate 90 mcg/actuation 2 puff inhalation Q4-6H PRN 12/20/21 12/20/21 Unknown History aerosol inhaler (Proventil HFA) Shortness Of Breath amlodipine 10 mg tablet 1 tab PO DAILY 12/20/21 12/20/21 Unknown History atorvastatin 80 mg tablet 1 tab PO DAILY 12/20/21 12/20/21 Unknown History famotidine 20 mg tablet 1 tab PO BID 12/20/21 12/20/21 Unknown History oxybutynin chloride 10 mg 1 tab PO DAILY 12/20/21 12/20/21 Unknown History tablet,extended release 24 hr Physical Exam Vital Signs and Narrative: Vital Signs: Last Vital Signs Temp 98.6 F 12/20/21 12:56 Pulse 90 12/20/21 12:57 Resp 21 H 12/20/21 12:57 BP 145/69 H 12/20/21 12:56 Pulse Ox 100 12/20/21 12:56 O2 Del Method 12/20/21 12:56 BMI result Body Mass Index 49.8 Gen: mild respiratory distress HEENT: sclera anicteric, moist mucus membranes Neck: supple Lungs: mildly tachypneic, diffuse expiratory wheezes, decreased air entry L base Heart: regular rate and rhythm, no murmurs Abd: soft, non-tender, non-distended, morbid obesity Ext: no edema Skin: warm/well-perfused Neuro: alert and oriented x3, no focal findings Psych: appropriate affect Results Labs CBC and Chem 7: 12/20/21 13:14 12/20/21 13:14 Labs: Laboratory Results - last 24 hr 12/20/21 12/20/21 12/20/21 13:14 13:14 13:14 MCV 92.8 MCH 30.3 MCHC 32.6 RDW 12.6 Plt Count TNP MPV Not Reportable Immature Gran % (Auto) 0.8 H Neut % (Auto) 87.4 H Lymph % (Auto) 6.0 L [place] % (Auto) 5.0 Eos % (Auto) 0.4 Baso % (Auto) 0.4 Lymph # (Auto) 1.1 L [place] # (Auto) 0.9 Eos # (Auto) 0.1 Baso # (Auto) 0.1 Abs Immat Gran (auto) 0.15 H Absolute Neuts (auto) 15.9 H Absolute Nucleated RBC 0.000 Nucleated RBC % (auto) 0.0 Smear Tech's Comments VERIFIED VBG pH VBG pCO2 VBG pO2 VBG HCO3 VBG O2 Saturation VBG Base Excess Anion Gap 17 Estim Creat Clear Calc 47.3 Estimated GFR 37 Random Glucose 88 Lactic Acid Calcium 8.7 Magnesium 1.8 Total Bilirubin 0.4 AST 17 ALT 12 Alkaline Phosphatase 144 H Troponin I High Sens 9.4 B-Natriuretic Peptide Total Protein 6.4 L Albumin 3.2 L Influenza Type A (PCR) Influenza Type B (PCR) RSV RNA Qual (PCR) SARS-CoV-2 RNA (RT-PCR) 12/20/21 12/20/21 12/20/21 13:14 13:14 13:18 MCV MCH MCHC RDW Plt Count MPV Immature Gran % (Auto) Neut % (Auto) Lymph % (Auto) [place] % (Auto) Eos % (Auto) Baso % (Auto) Lymph # (Auto) [place] # (Auto) Eos # (Auto) Baso # (Auto) Abs Immat Gran (auto) Absolute Neuts (auto) Absolute Nucleated RBC Nucleated RBC % (auto) Smear Tech's Comments VBG pH 7.41 VBG pCO2 38 VBG pO2 50 VBG HCO3 24 VBG O2 Saturation 82.0 VBG Base Excess 0.3 Anion Gap Estim Creat Clear Calc Estimated GFR Random Glucose Lactic Acid Calcium Magnesium Total Bilirubin AST ALT Alkaline Phosphatase Troponin I High Sens B-Natriuretic Peptide 132 H Total Protein Albumin Influenza Type A (PCR) NEGATIVE Influenza Type B (PCR) NEGATIVE RSV RNA Qual (PCR) NEGATIVE SARS-CoV-2 RNA (RT-PCR) NEGATIVE 12/20/21 15:15 MCV MCH MCHC RDW Plt Count MPV Immature Gran % (Auto) Neut % (Auto) Lymph % (Auto) [place] % (Auto) Eos % (Auto) Baso % (Auto) Lymph # (Auto) [place] # (Auto) Eos # (Auto) Baso # (Auto) Abs Immat Gran (auto) Absolute Neuts (auto) Absolute Nucleated RBC Nucleated RBC % (auto) Smear Tech's Comments VBG pH VBG pCO2 VBG pO2 VBG HCO3 VBG O2 Saturation VBG Base Excess Anion Gap Estim Creat Clear Calc Estimated GFR Random Glucose Lactic Acid 1.7 Calcium Magnesium Total Bilirubin AST ALT Alkaline Phosphatase Troponin I High Sens B-Natriuretic Peptide Total Protein Albumin Influenza Type A (PCR) Influenza Type B (PCR) RSV RNA Qual (PCR) SARS-CoV-2 RNA (RT-PCR) Imaging Radiologist's Impressions: Impressions Chest X-Ray 12/20/21 13:20 IMPRESSION: Mild asymmetric opacification the left lower lung could be projectional representing soft tissue attenuation however an underlying infiltrate cannot be excluded. Assessment and Plan (1) Pneumonia: Status: Acute (2) Asthma exacerbation: Status: Acute Plan 66yo F with DM2, CKD3, benign brain tumor, seizure disorder, HTN, nephrolithiasis who presents with 1 week of worsening dyspnea, wheeze, and dry cough unrelieved by albuterol inhaler. Admitted for acute respiratory distress from a combination of asthma exacerbation and pneumonia. # acute asthma exacerbation - admit to M/S, give standing/prn nebs, give IV methylprednisolone # CAP - follow BCx + trend PCT. continue ceftriaxone and add doxycyline for atypical coverage. # DM2 - basal/bolus insulin # HTN - continue losartan + amlodipine # CKD3 - SCr close to baseline; avoid nephrotoxins; monitor BMP # sz disorder - continue lacosamide # mood disorder - continue duloxetine + quetiapine # VTE prophylaxis: LMWH # code status: full I anticipate that the patient will stay at least 2 midnights as an inpatient in the hospital due to the above reasons. It is neither reasonable nor safe to care for them in a less acute setting. Quality Stroke Does the patient have a stroke diagnosis?: No VTE Prior VTE?: No VTE Risk Level:: Medical - moderate - high VTE Device Contraindication: N/A - Device Ordered VTE Drug Contraindication: N/A - Med Ordered
[2021-12-20 17:40] LABS: Estimated Average Glucose 154 mg/dL
[2021-12-20 18:03] LABS: Procalcitonin 0.07 ng/mL
[2021-12-20] MEDS: Doxycycline Hyclate 100 MG in 0.9 % Sodium Chloride 250 ML 166.67 MG IV (18:15)
[2021-12-20] MEDS: Enoxaparin Sodium 40 MG/0.4 ML SYRINGE SUBCUT (18:16)
[2021-12-20 18:17] VITALS: BP 163/73; PULSE 90; RESP 18; TEMP 37; O2SAT 96
--- NOTE | 2021-12-20 19:21 | PHA.MEDREC ---
Pharmacy Consult ? Medication Reconciliation Pharmacy has completed the medication reconciliation.
[2021-12-20 20:25] VITALS: BP 177/73; PULSE 90; RESP 16; TEMP 36.4; O2SAT 97
[2021-12-20 20:58] LABS: Glucose, Whole Blood 267 mg/dL (60-115)
[2021-12-20] MEDS: methylPREDNISolone Sod Succ 40 MG/ML VIAL IVPUSH (21:07)
[2021-12-20] MEDS: Famotidine 20 MG TABLET PO (21:07)
[2021-12-20] MEDS: Losartan Potassium 50 MG TABLET PO (21:07)
[2021-12-20] MEDS: Insulin Glargine,Hum.rec.anlog 100 UNIT/ML 10 ML VIAL 30 UNIT SUBCUT (21:07)
[2021-12-20] MEDS: Albuterol/Iprat 2.5/0.5MG 3 ML AMPUL.NEB INHALE (21:28)
[2021-12-20 21:29] VITALS: PULSE 90; RESP 16; O2SAT 96
--- NOTE | 2021-12-20 21:30 | MHC.CM.PN ---
IMM 12/20. Met with admitted patient in ED overflow, pending bed assignment. Yemeni speaking. Infection Prevention Specialist used. Lives w daughter. Has wheeled walker, has glucometer, but no test strips. Pt to call PCP regarding DM testing strips. PCP Jennifer Ibrahim. HCP reviewed, completed and signed. Copies given. U[place] into [facility] and [facility] HCP/daughter Manuel Perera ([phone]). Pfizer x3. Questions about daughter becoming TEST FIXTURE ASSEMBLER. Directed pt to PCP/[facility]. Pt aware that CM cannot provide TEST FIXTURE ASSEMBLER services for patient. D/C plan: Home w/o services. Family to transport. CM will follow for discharge planning.
[2021-12-20] MEDS: Insulin Lispro 100 UNIT/ML 3 ML VIAL SUBCUT (22:18)
[2021-12-20] MEDS: Lacosamide 100 MG TABLET 200 MG PO (22:18)
[2021-12-21] VITALS (11 sets, daily range): BP systolic 131–153; BP diastolic 61–69; PULSE 90–106; RESP 12–29; TEMP 36.4–37.1; O2SAT 95–99; BMI 52.3
[2021-12-21] MEDS: QUEtiapine Fumarate 25 MG TABLET PO ×2 (01:41→22:15)
[2021-12-21] MEDS: Acetaminophen 325 MG TABLET 650 MG PO ×2 (01:41→22:17)
[2021-12-21] MEDS: Albuterol Sulfate (0.083%) 2.5 MG/3 ML VIAL.NEB INHALE ×2 (04:25→23:35)
[2021-12-21] MEDS: Doxycycline Hyclate 100 MG in 0.9 % Sodium Chloride 250 ML 166 MG IV (04:29)
[2021-12-21] MEDS: Benzonatate 100 MG CAPSULE 200 MG PO ×2 (04:50→22:17)
[2021-12-21 07:12] LABS: Hematocrit 24.2 % (37.0-47.0); Hemoglobin 7.9 g/dl (12.0-16.0); Mean Corpuscular HGB Conc 32.6 g/dl (31.0-35.0); Mean Corpuscular Hemoglobin 30.7 pg (27.0-33.0); Mean Corpuscular Volume 94.2 fL (80.0-98.0); Red Blood Count 2.57 X10*6/uL (4.20-5.50); Red Cell Distribution Width 12.6 % (11.0-16.0); White Blood Count 14.3 X10*3/uL (4.8-10.8)
[2021-12-21 07:22] LABS: Glucose, Whole Blood 280 mg/dL (60-115)
[2021-12-21 07:26] LABS: Anion Gap 19 (12-20); Blood Urea Nitrogen 41 mg/dL (9-16); Calcium 8.1 mg/dL (8.4-10.2); Carbon Dioxide 20 mmol/L (22-29); Chloride 109 mmol/L (96-108); Creatinine Clr Calc Pharmacy 40.1; Estimated Glomerular Filt Rate 30; Glucose Random 324 mg/dL (60-115); Potassium 4.8 mmol/L (3.3-5.1); Sodium 143 mmol/L (135-145)
[2021-12-21] MEDS: Albuterol/Iprat 2.5/0.5MG 3 ML AMPUL.NEB INHALE ×4 (08:25→20:12)
[2021-12-21] MEDS: DULoxetine HCl 60 MG CAPSULE.DR PO (08:40)
[2021-12-21] MEDS: amLODIPine Besylate 10 MG TABLET PO (08:40)
[2021-12-21] MEDS: Insulin Lispro 100 UNIT/ML 3 ML VIAL SUBCUT ×4 (08:41→21:40)
[2021-12-21] MEDS: Losartan Potassium 50 MG TABLET PO ×2 (08:41→21:39)
[2021-12-21] MEDS: Atorvastatin Calcium 80 MG TABLET PO (08:41)
[2021-12-21] MEDS: Famotidine 20 MG TABLET PO ×2 (08:41→21:40)
[2021-12-21] MEDS: 0.9 % Sodium Chloride Flush 3 ML SYRINGE IVFLUSH ×3 (08:42→21:40)
[2021-12-21] MEDS: Lacosamide 100 MG TABLET 200 MG PO ×2 (08:50→21:39)
[2021-12-21 11:50] LABS: Glucose, Whole Blood 325 mg/dL (60-115)
--- NOTE | 2021-12-21 12:35 | HO.PM.IMPN ---
Subjective Subjective Date of Service: 12/21/21 Interval History: f/u on asthma exac, pna still feels very winded and difficulty with any activity at all Review of Systems sob wheeze Physical Exam Vital Signs: Vital Signs: Last Vital Signs Temp 98.7 F 12/21/21 12:00 Pulse 92 12/21/21 12:31 Resp 16 12/21/21 12:31 BP 131/61 12/21/21 12:00 Pulse Ox 95 12/21/21 12:00 O2 Del Method 12/21/21 12:00 O2 Flow Rate 2 12/20/21 20:25 BMI result Body Mass Index 49.8 Const: Other: General: AO X 3, no acute distress Resp: still with some wheeze, visibly short of breath, with more than usual effort for breathing CVS: S1,S2,RRR GI: +BS, NT, no distention Skin: No rash Neuro: motor grossly intact Psych: appropriate affect Objective Data Active Medications Acetaminophen (Acetaminophen 325 Mg Tablet) 650 mg PO Q6H PRN PRN Reason: Pain, Mild (Pain Scale 1-3) Last Admin: 12/21/21 01:41 Dose: 650 mg Documented By: ALEC Albuterol Sulfate (Albuterol Sulfate (0.083%) 2.5 Mg/3 Ml Vial.Neb) 2.5 mg INHALE Q2H PRN PRN Reason: Shortness of Breath/Wheezing Last Admin: 12/21/21 04:25 Dose: 2.5 mg Documented By: MIKE Albuterol/Ipratropium (Albuterol/Iprat 2.5/0.5mg 3 Ml Ampul.Neb) 3 ml INHALE RQ4H WHILE AWAKE [facility] Last Admin: 12/21/21 12:30 Dose: 3 ml Documented By: ANDRE Amlodipine Besylate (Amlodipine Besylate 10 Mg Tablet) 10 mg PO DAILY [facility]; Protocol Last Admin: 12/21/21 08:40 Dose: 10 mg Documented By: YUKO Atorvastatin Calcium (Atorvastatin Calcium 80 Mg Tablet) 80 mg PO DAILY [facility] Last Admin: 12/21/21 08:41 Dose: 80 mg Documented By: YUKO Benzonatate (Benzonatate 100 Mg Capsule) 200 mg PO TID PRN PRN Reason: cough Last Admin: 12/21/21 04:50 Dose: 200 mg Documented By: MIKE Dextrose (Dextrose 50 % 25 Gm/50 Ml Syringe) 25 gm IVPUSH Q15M PRN; Protocol PRN Reason: per Hypoglycemia Standing Ord. Docusate Sodium (Docusate Sodium 100 Mg Capsule) 100 mg PO BID PRN PRN Reason: Constipation Duloxetine HCl (Duloxetine Hcl 60 Mg Capsule.Dr) 60 mg PO DAILY [facility] Last Admin: 12/21/21 08:40 Dose: 60 mg Documented By: YUKO Enoxaparin Sodium (Enoxaparin Sodium 40 Mg/0.4 Ml Syringe) 40 mg SUBCUT Q24H [facility] Last Admin: 12/20/21 18:16 Dose: 40 mg Documented By: RICHARD Famotidine (Famotidine 20 Mg Tablet) 20 mg PO BID [facility] Last Admin: 12/21/21 08:41 Dose: 20 mg Documented By: YUKO Glucose (Glucose Gel 15 Gm Gel..Gram.) 15 gm PO Q15M PRN; Protocol PRN Reason: per Hypoglycemia Standing Ord. Ceftriaxone Sodium 1 gm/ (Sodium Chloride) 50 mls @ 100 mls/hr IV Q24H [facility] Doxycycline Hyclate 100 mg/ (Sodium Chloride) 250 mls @ 166.67 mls/hr IV Q12H [facility] Last Infusion: 12/21/21 06:11 Dose: 0 mls/hr Documented By: MIKE Insulin Glargine (Insulin Glargine,Hum.Rec.Anlog 100 Unit/Ml 10 Ml Vial) 30 unit SUBCUT BEDTIME [facility] Last Admin: 12/20/21 21:07 Dose: 30 unit Documented By: ALEC Insulin Human Lispro (Insulin Lispro 100 Unit/Ml 3 Ml Vial) 0 unit SUBCUT QIDACHS [facility]; Protocol Last Admin: 12/21/21 12:18 Dose: 8 unit Documented By: YUKO Lacosamide (Lacosamide 100 Mg Tablet) 200 mg PO BID [facility] Last Admin: 12/21/21 08:50 Dose: 200 mg Documented By: YUKO Losartan Potassium (Losartan Potassium 50 Mg Tablet) 50 mg PO BID [facility]; Protocol Last Admin: 12/21/21 08:41 Dose: 50 mg Documented By: YUKO Methylprednisolone Sodium Succinate (Methylprednisolone Sod Succ 40 Mg/Ml Vial) 40 mg IVPUSH Q24H [facility] Last Admin: 12/20/21 21:07 Dose: 40 mg Documented By: ALEC Ondansetron HCl (Ondansetron Hcl 4 Mg/2 Ml Vial) 4 mg IVPUSH Q8H PRN PRN Reason: Nausea and Vomiting Oxybutynin Chloride (Oxybutynin Chloride Er 5 Mg Tab.Er.24) 10 mg PO DAILY [facility] Last Admin: 12/21/21 08:40 Dose: 10 mg Documented By: YUKO Quetiapine Fumarate (Quetiapine Fumarate 25 Mg Tablet) 25 mg PO BEDTIME PRN PRN Reason: Sleep Last Admin: 12/21/21 01:41 Dose: 25 mg Documented By: ALEC Senna (Sennosides 8.6 Mg Tablet) 17.2 mg PO BEDTIME PRN PRN Reason: Constipation Sodium Chloride (0.9 % Sodium Chloride Flush 3 Ml Syringe) 3 ml IVFLUSH QSHIFT [facility] Last Admin: 12/21/21 08:42 Dose: 3 ml Documented By: YUKO Labs CBC & Chem 7: 12/21/21 06:47 12/21/21 06:47 Labs: Laboratory Results - last 24 hr 12/20/21 12/20/21 12/20/21 13:14 13:14 13:14 MCV 92.8 MCH 30.3 MCHC 32.6 RDW 12.6 Plt Count TNP MPV Not Reportable Immature Gran % (Auto) 0.8 H Neut % (Auto) 87.4 H Lymph % (Auto) 6.0 L [place] % (Auto) 5.0 Eos % (Auto) 0.4 Baso % (Auto) 0.4 Lymph # (Auto) 1.1 L [place] # (Auto) 0.9 Eos # (Auto) 0.1 Baso # (Auto) 0.1 Abs Immat Gran (auto) 0.15 H Absolute Neuts (auto) 15.9 H Absolute Nucleated RBC 0.000 Nucleated RBC % (auto) 0.0 Smear Tech's Comments VERIFIED VBG pH VBG pCO2 VBG pO2 VBG HCO3 VBG O2 Saturation VBG Base Excess Anion Gap 17 Estim Creat Clear Calc 47.3 Estimated GFR 37 POC Glucose Random Glucose 88 Estimat Average Glucose Hemoglobin A1c % Lactic Acid Calcium 8.7 Magnesium 1.8 Total Bilirubin 0.4 AST 17 ALT 12 Alkaline Phosphatase 144 H Troponin I High Sens 9.4 B-Natriuretic Peptide Total Protein 6.4 L Albumin 3.2 L Procalcitonin Influenza Type A (PCR) Influenza Type B (PCR) RSV RNA Qual (PCR) SARS-CoV-2 RNA (RT-PCR) 12/20/21 12/20/21 12/20/21 13:14 13:14 13:14 MCV MCH MCHC RDW Plt Count MPV Immature Gran % (Auto) Neut % (Auto) Lymph % (Auto) [place] % (Auto) Eos % (Auto) Baso % (Auto) Lymph # (Auto) [place] # (Auto) Eos # (Auto) Baso # (Auto) Abs Immat Gran (auto) Absolute Neuts (auto) Absolute Nucleated RBC Nucleated RBC % (auto) Smear Tech's Comments VBG pH VBG pCO2 VBG pO2 VBG HCO3 VBG O2 Saturation VBG Base Excess Anion Gap Estim Creat Clear Calc Estimated GFR POC Glucose Random Glucose Estimat Average Glucose 154 Hemoglobin A1c % 7.0 Lactic Acid Calcium Magnesium Total Bilirubin AST ALT Alkaline Phosphatase Troponin I High Sens B-Natriuretic Peptide 132 H Total Protein Albumin Procalcitonin Influenza Type A (PCR) NEGATIVE Influenza Type B (PCR) NEGATIVE RSV RNA Qual (PCR) NEGATIVE SARS-CoV-2 RNA (RT-PCR) NEGATIVE 12/20/21 12/20/21 12/20/21 13:14 13:18 15:15 MCV MCH MCHC RDW Plt Count MPV Immature Gran % (Auto) Neut % (Auto) Lymph % (Auto) [place] % (Auto) Eos % (Auto) Baso % (Auto) Lymph # (Auto) [place] # (Auto) Eos # (Auto) Baso # (Auto) Abs Immat Gran (auto) Absolute Neuts (auto) Absolute Nucleated RBC Nucleated RBC % (auto) Smear Tech's Comments VBG pH 7.41 VBG pCO2 38 VBG pO2 50 VBG HCO3 24 VBG O2 Saturation 82.0 VBG Base Excess 0.3 Anion Gap Estim Creat Clear Calc Estimated GFR POC Glucose Random Glucose Estimat Average Glucose Hemoglobin A1c % Lactic Acid 1.7 Calcium Magnesium Total Bilirubin AST ALT Alkaline Phosphatase Troponin I High Sens B-Natriuretic Peptide Total Protein Albumin Procalcitonin 0.07 Influenza Type A (PCR) Influenza Type B (PCR) RSV RNA Qual (PCR) SARS-CoV-2 RNA (RT-PCR) 12/20/21 12/21/21 12/21/21 20:53 06:47 06:47 MCV 94.2 MCH 30.7 MCHC 32.6 RDW 12.6 Plt Count TNP MPV Not Reportable Immature Gran % (Auto) Neut % (Auto) Lymph % (Auto) [place] % (Auto) Eos % (Auto) Baso % (Auto) Lymph # (Auto) [place] # (Auto) Eos # (Auto) Baso # (Auto) Abs Immat Gran (auto) Absolute Neuts (auto) Absolute Nucleated RBC 0.000 Nucleated RBC % (auto) 0.0 Smear Tech's Comments VBG pH VBG pCO2 VBG pO2 VBG HCO3 VBG O2 Saturation VBG Base Excess Anion Gap 19 Estim Creat Clear Calc 40.1 Estimated GFR 30 POC Glucose 267 H Random Glucose 324 H Estimat Average Glucose Hemoglobin A1c % Lactic Acid Calcium 8.1 L D Magnesium Total Bilirubin AST ALT Alkaline Phosphatase Troponin I High Sens B-Natriuretic Peptide Total Protein Albumin Procalcitonin Influenza Type A (PCR) Influenza Type B (PCR) RSV RNA Qual (PCR) SARS-CoV-2 RNA (RT-PCR) 12/21/21 12/21/21 07:15 11:42 MCV MCH MCHC RDW Plt Count MPV Immature Gran % (Auto) Neut % (Auto) Lymph % (Auto) [place] % (Auto) Eos % (Auto) Baso % (Auto) Lymph # (Auto) [place] # (Auto) Eos # (Auto) Baso # (Auto) Abs Immat Gran (auto) Absolute Neuts (auto) Absolute Nucleated RBC Nucleated RBC % (auto) Smear Tech's Comments VBG pH VBG pCO2 VBG pO2 VBG HCO3 VBG O2 Saturation VBG Base Excess Anion Gap Estim Creat Clear Calc Estimated GFR POC Glucose 280 H 325 H Random Glucose Estimat Average Glucose Hemoglobin A1c % Lactic Acid Calcium Magnesium Total Bilirubin AST ALT Alkaline Phosphatase Troponin I High Sens B-Natriuretic Peptide Total Protein Albumin Procalcitonin Influenza Type A (PCR) Influenza Type B (PCR) RSV RNA Qual (PCR) SARS-CoV-2 RNA (RT-PCR) Assessment and Plan (1) Hypoxia: Status: Acute (2) Pneumonia: Status: Acute (3) Asthma exacerbation: Status: Acute Plan 66yo F with DM2, CKD3, benign brain tumor, seizure disorder, HTN, nephrolithiasis who presents with 1 week of worsening dyspnea, wheeze, and dry cough unrelieved by albuterol inhaler. Admitted for acute respiratory distress from a combination of asthma exacerbation and pneumonia. # acute asthma exacerbation -improving - standing/prn nebs, give IV methylprednisolone for 1 more day # CAP - follow BCx + trend PCT. continue ceftriaxone and add doxycyline for atypical coverage-to PO tomorrow # DM2 - basal/bolus insulin # HTN - continue losartan + amlodipine # CKD3 - SCr close to baseline; avoid nephrotoxins; monitor BMP # sz disorder - continue lacosamide # mood disorder - continue duloxetine + quetiapine # VTE prophylaxis: LMWH # code status: full need for inpatient: It is neither reasonable nor safe to care for them in a less acute setting with ongoing asthma exacerbation related to PNA. Quality Stroke Does the patient have a stroke diagnosis?: No VTE Prior VTE?: No VTE Risk Level:: Medical - moderate - high VTE Device Contraindication: N/A - Device Ordered VTE Drug Contraindication: N/A - Med Ordered
[2021-12-21] MEDS: cefTRIAXone sodium 1 GM in 0.9 % Sodium Chloride 50 ML IV (14:51)
[2021-12-21 16:45] LABS: Glucose, Whole Blood 206 mg/dL (60-115)
[2021-12-21] MEDS: Doxycycline Hyclate 100 MG in 0.9 % Sodium Chloride 250 ML 166.67 MG IV (16:49)
[2021-12-21] MEDS: Enoxaparin Sodium 40 MG/0.4 ML SYRINGE SUBCUT (16:49)
--- NOTE | 2021-12-21 17:36 | PC.NURSE ---
Diabetes education provided to pt and visitor. Visitor brought [employer] for pt's dinner. Verbalized education
[2021-12-21 20:58] LABS: Glucose, Whole Blood 178 mg/dL (60-115)
[2021-12-21] MEDS: methylPREDNISolone Sod Succ 40 MG/ML VIAL IVPUSH (21:39)
[2021-12-21] MEDS: Insulin Glargine,Hum.rec.anlog 100 UNIT/ML 10 ML VIAL 30 UNIT SUBCUT (21:40)
[2021-12-22 04:00] VITALS: BP 144/77; PULSE 87; RESP 18; TEMP 36.7; O2SAT 96
[2021-12-22] MEDS: Doxycycline Hyclate 100 MG in 0.9 % Sodium Chloride 250 ML 166.67 MG IV (06:18)
[2021-12-22 07:08] VITALS: BP 160/75; PULSE 93; RESP 18; TEMP 37.2; O2SAT 97
[2021-12-22 07:38] LABS: Glucose, Whole Blood 135 mg/dL (60-115)
[2021-12-22] MEDS: Albuterol/Iprat 2.5/0.5MG 3 ML AMPUL.NEB INHALE (07:39)
[2021-12-22 07:40] VITALS: PULSE 91; RESP 16; O2SAT 96
--- NOTE | 2021-12-22 08:37 | P.CDIC_ITS ---
CDI Concurrent Query Documentation Clarification: PHYSICIAN'S DOCUMENTATION REQUEST Date of Query: 12/22/21 0838 Patient Name: Lori Reid Admit Date: 12/20/21 Dear Doctor, Please review the following and provide your response in the progress notes. Clinical Indicators: Risk Factors/Clinical Indicators/Treatments Dx - Acute asthma exacerbation Improving, standing prn nebs, given IV methylprednisolone. Based on the above, please clarify in the Progress Notes further specificity regarding the type and acuity of the asthma: Type: * Mild intermittent - less than 2x/week * Mild persistent - more than 2x/week but not daily * Moderate persistent - daily and may restrict physical activity * Severe persistent - throughout the day with frequent attacks, limiting activities * Exercise induced * Other ? please specify * Unable to determine Use of terms such as suspected, likely, concern for, or probable (associated with a specific diagnosis that is being evaluated, monitored, or treated as if it exists) are acceptable and can be coded in the inpatient setting, when documented at the time of discharge. Thank you, [facility], [facility] Extension: [phone] Please use your independent medical judgment in providing your response. THIS QUERY IS PART OF THE PERMANENT MEDICAL RECORD Provider Response: Other Other Diagnosis: moderate persistent asthma
--- NOTE | 2021-12-22 08:37 | MHC.CDI.CONC ---
CDI Concurrent Query Documentation Clarification: PHYSICIAN'S DOCUMENTATION REQUEST Date of Query: 12/22/21 0838 Patient Name: Lori Reid Admit Date: 12/20/21 Dear Doctor, Please review the following and provide your response in the progress notes. Clinical Indicators: Risk Factors/Clinical Indicators/Treatments Dx - Acute asthma exacerbation Improving, standing prn nebs, given IV methylprednisolone. Based on the above, please clarify in the Progress Notes further specificity regarding the type and acuity of the asthma: Type: Mild intermittent - less than 2x/week Mild persistent - more than 2x/week but not daily Moderate persistent - daily and may restrict physical activity Severe persistent - throughout the day with frequent attacks, limiting activities Exercise induced Other ? please specify Unable to determine Use of terms such as suspected, likely, concern for, or probable (associated with a specific diagnosis that is being evaluated, monitored, or treated as if it exists) are acceptable and can be coded in the inpatient setting, when documented at the time of discharge. Thank you, Benita Wilkins [facility], CDIS Extension: [phone] Please use your independent medical judgment in providing your response. THIS QUERY IS PART OF THE PERMANENT MEDICAL RECORD Provider Response: Other Other Diagnosis: moderate persistent asthma
--- NOTE | 2021-12-22 08:41 | P.CDIC_ITS ---
CDI Concurrent Query Documentation Clarification: PHYSICIAN'S DOCUMENTATION REQUEST Date of Query: 12/22/21 0842 Patient Name: Lori Reid Admit Date: 12/20/21 Dear Doctor, A review of the medical record indicates additional documentation may be needed. Please review below and update the documentation accordingly. Clinical Indicators: Risk Factors/Clinical Indicators/Treatments Nursing notes height and weight - BMI 52.4 5' 1 in height Extreme obesity Class III. If possible, please provide an associated diagnosis related to the abnormal BMI, such as: For a BMI >= 40: * Overweight * Obesity * Due to excess calories * Drug induced * Due to other cause * Severe or Morbid Obesity * With alveolar hypoventilation * Without alveolar hypoventilation Use of terms such as suspected, likely, concern for, or probable (associated w ith a specific diagnosis that is being evaluated, monitored, or treated as if it exists) are acceptable and can be coded in the inpatient setting, when documented at the time of discharge. Thank you, Benita Wilkins [facility], CDIS Extension: [phone] Please use your independent medical judgment in providing your response. THIS QUERY IS PART OF THE PERMANENT MEDICAL RECORD Provider Response: Other Other Diagnosis: severe obesity
--- NOTE | 2021-12-22 08:41 | MHC.CDI.CONC ---
CDI Concurrent Query Documentation Clarification: PHYSICIAN'S DOCUMENTATION REQUEST Date of Query: 12/22/21 0842 Patient Name: Lori Reid Admit Date: 12/20/21 Dear Doctor, A review of the medical record indicates additional documentation may be needed. Please review below and update the documentation accordingly. Clinical Indicators: Risk Factors/Clinical Indicators/Treatments Nursing notes height and weight - BMI 52.4 5' 1 in height Extreme obesity Class III. If possible, please provide an associated diagnosis related to the abnormal BMI, such as: For a BMI >= 40: Overweight Obesity Due to excess calories Drug induced Due to other cause Severe or Morbid Obesity With alveolar hypoventilation Without alveolar hypoventilation Use of terms such as suspected, likely, concern for, or probable (associated with a specific diagnosis that is being evaluated, monitored, or treated as if it exists) are acceptable and can be coded in the inpatient setting, when documented at the time of discharge. Thank you, Benita Wilkins [facility], CDIS Extension: [phone] Please use your independent medical judgment in providing your response. THIS QUERY IS PART OF THE PERMANENT MEDICAL RECORD Provider Response: Other Other Diagnosis: severe obesity
--- NOTE | 2021-12-22 09:46 | P.DS_ITS ---
DS: Providers Provider Date of Service: 12/22/21 Date of admission: 12/20/21 17:25 Primary care physician: [facility] DS: Diagnosis Discharge Diagnosis (1) Hypoxia: Status: Acute (2) Pneumonia: Status: Acute (3) Asthma exacerbation: Status: Acute DS: Summary Hospital Course Hospital Course: Chief Complaint: dyspnea, cough This history was taken in [place]ian from the patient. 66yo F with DM2, CKD3, benign brain tumor, seizure disorder, HTN, nephrolithiasis? who presents with 1 week of worsening dyspnea, wheeze, and dry cough.? Using her albuterol inhaler without relief.? No fever, chills, purulent sputum, or hemoptysis.? Chest pain with coughing.? No lightheadedness.? No sick contacts. In the ED, she was initially hypoxic to 87% but recovered to 96%.? Her breathing was labored and she was tachypneic with diffuse wheezing.? WBCs were elevated to 18.2 with 87% PMNs. ? Venous blood gas pH 7.41, pCO2 38.? CXR showed LLL infiltrate.? Influenza/Covid-19/RSV PCR negative.? She was given a 5mg Duoneb, 2g of IV ceftriaxone, 1g of IV magnesium sulfate, and 10mg of IV dexamethasone. Hospital course: # moderate peristent asth with acute exacerbation probably precipitated by pneumonia. She has been treated with IV steroid, bronchidilators by Neb, she is not hypoxic, overall better and will transition to oral Prednisone at home # community acquired pneumoia (CAP)-treated in the hospital with IV ceftriaxone and Doxycyline, she is afebrile, WBC have been negative. Will trantiion to oral Ceftin for 5 more days. Robitussin for cough # DM2--to resume home meds # HTN - continue losartan + amlodipine # CKD3--Stable # sz disorder - continue lacosamide # mood disorder - continue duloxetine + quetiapine #severe obesity--advise on weight loss via exercise and diet Time Spent with Patient Time attestation: Total time spent providing and/or coordinating discharge services: Discharge coordination time: Greater than 30 minutes Quality: Safe Use of Opioids Does Pt have an Active Cancer Diagnosis on the Problem List?: No Quality: Stroke Does the patient have a stroke diagnosis?: No Physical Exam Vital Signs: Vital Signs: Last Vital Signs Temp 98.9 F 12/22/21 07:08 Pulse 91 12/22/21 07:40 Resp 16 12/22/21 07:40 BP 160/75 H 12/22/21 07:08 Pulse Ox 97 12/22/21 07:08 O2 Del Method 12/22/21 07:08 O2 Flow Rate 2 12/20/21 20:25 BMI result Body Mass Index 52.3 DS: Data Data Completed and Pending Completed studies during hospitalization [Text1]: Procedures Dilation of Right Ureter with Intraluminal Device, Via Natural or Artificial Opening Endoscopic (10/02/21) Extirpation of Matter from Right Ureter, Via Natural or Artificial Opening Endoscopic (10/02/21) Fluoroscopy of Right Kidney, Ureter and Bladder (10/02/21) Introduction of Remdesivir Anti-infective into Peripheral Vein, Percutaneous Approach, [employer] 5 (03/28/20) Labs on day of discharge: Laboratory Results - last 24 hr 12/21/21 12/21/21 12/21/21 11:42 16:41 20:54 POC Glucose 325 H 206 H 178 H 12/22/21 07:31 POC Glucose 135 H Preliminary micro results at discharge 12/20/21 16:13 Blood Culture - Preliminary Blood - Venous No growth after 24 hours. 12/20/21 15:43 Blood Culture - Preliminary Blood - Venous No growth after 24 hours. Discharge Plan Discharge Anticipated Discharge Date/Time: 12/22/21 09:41 Patient Disposition: Home, Self-Care Discharge Diagnosis: Pneumonia, asthma exacerbation Referrals: [place],[facility] [Primary Care Provider] - 1 Week Discharge Medications: New cefuroxime axetil 500 mg tablet 500 mg PO BID 5 Days Qty: 10 0RF peyarxcecdeox-ME-aytjifrffao 5-10-100 mg/5 mL liquid 10 ml PO Q4H PRN (Reason: cough) Qty: 118 0RF prednisone 20 mg tablet 40 mg PO DAILY Qty: 6 0RF Continued (DME) FreeStyle Lite Strips Strip MISCELLANEOUS QID (DME) blood-glucose meter [FreeStyle [place] Lite] Kit MISCELLANEOUS BID lacosamide [Vimpat] 200 mg tablet 200 mg PO BID (DME) lancets [FreeStyle Lancets] 28 gauge misc 1 gauge topical BID Toujeo SoloStar U-300 Insulin 300 unit/mL (1.5 mL) insulin pen 30 unit subcut BID omeprazole 40 mg capsule,delayed release(DR/EC) 40 mg PO DAILY losartan 50 mg Tablet 50 mg PO BID quetiapine [Seroquel] 25 mg Tablet 25 mg PO BEDTIME PRN (Reason: Sleep) duloxetine 60 mg Capsule, Delayed Rel Sprinkle 60 mg PO DAILY Humalog KwikPen Insulin 200 unit/mL (3 mL) insulin pen 16 unit subcut TIDAC Qty: 6 0RF atorvastatin 80 mg tablet 1 tab PO DAILY oxybutynin chloride 10 mg tablet extended release 24hr 1 tab PO DAILY famotidine 20 mg tablet 1 tab PO BID amlodipine 10 mg tablet 1 tab PO DAILY albuterol sulfate [Proventil HFA] 90 mcg/actuation HFA aerosol inhaler 2 puff INHALATION Q4-6H PRN (Reason: Shortness Of Breath) trimethoprim 100 mg Tablet 100 mg PO DAILY (DME) blood pressure test kit-large Kit See Rx Instructions .ROUTE DAILY Qty: 1 Rx Instructions: As directed Diet: Diabetic diet Activity on Discharge: As tolerated Stand Alone Forms: Patient Portal Discharge page Care Plan Goals: Full recovery from pneumonia and asthm Health Concerns: asthma pneumonia cough Plan of Treatment: take Cefuroxime (ceftin) to treat pneumonia take prednisone for asthma use inhalers Follow up with your doctor in week Assessment: as above
[2021-12-22] MEDS: Losartan Potassium 50 MG TABLET PO (10:12)
[2021-12-22] MEDS: Atorvastatin Calcium 80 MG TABLET PO (10:13)
[2021-12-22] MEDS: amLODIPine Besylate 10 MG TABLET PO (10:13)
[2021-12-22] MEDS: Famotidine 20 MG TABLET PO (10:13)
[2021-12-22] MEDS: DULoxetine HCl 60 MG CAPSULE.DR PO (10:13)
[2021-12-22] MEDS: 0.9 % Sodium Chloride Flush 3 ML SYRINGE IVFLUSH (10:13)
[2021-12-22] MEDS: Lacosamide 100 MG TABLET 200 MG PO (10:16)
[2021-12-22 10:52] VITALS: BP 150/79; PULSE 92; RESP 18; TEMP 36.8; O2SAT 95
[2021-12-22 11:18] LABS: Glucose, Whole Blood 215 mg/dL (60-115)
[2021-12-22] MEDS: Insulin Lispro 100 UNIT/ML 3 ML VIAL SUBCUT (11:45)
--- NOTE | 2021-12-22 14:02 | MHC.CM.PN ---
PT MEDICALLY CLEARED FOR D/C HOME NO SERVICES ORDERED, FAMILY FOR TRANSPORT
== END 2021-12-22 14:31 | disposition home or self-care (01) | DRG 202 ==
LOC: HO.ED 14:32 → HO.EDOVER 17:30 → HO.S3 12-21 19:37
PROVIDERS: Physician Assistant Medical; Admitting Provider Family Medicine; Emergency Provider Emergency Medicine; PCP Internal Medicine; Visit Provider Internal Medicine
DX: J45.41 Moderate persistent asthma with (acute) exacerbation (principal); J18.9 Pneumonia, unspecified organism; Z68.43 Body mass index [BMI] 50.0-59.9, adult; E78.5 Hyperlipidemia, unspecified; F32.A Depression, unspecified; E11.22 Type 2 diabetes mellitus with diabetic chronic kidney disease; I12.9 Hypertensive chronic kidney disease with stage 1 through stage 4 chronic kidney disease, or unspecified chronic kidney disease; E66.01 Morbid (severe) obesity due to excess calories; N18.30 Chronic kidney disease, stage 3 unspecified; G40.909 Epilepsy, unspecified, not intractable, without status epilepticus; Z20.822 Contact with and (suspected) exposure to COVID-19; Z87.442 Personal history of urinary calculi; Z86.16 Personal history of COVID-19; Z56.0 Unemployment, unspecified; Z79.4 Long term (current) use of insulin; Z79.899 Other long term (current) drug therapy
CPT/HCPCS: 0241U; 36415; 71045; 80048; 80053; 82803; 82947; 83036; 83605; 83735; 83880; 84145; 84484; 85025; 85027; 87040; 93005; 94640; 99285; J0696; J1100; J1650; J2920; J3475

== ENCOUNTER 2022-01-05 09:58 | Outpatient (REF) | payer MEDICARE, MEDICAID, SELFPAY ==
--- NOTE | ~2022-01-05 | US_ITS ---
EXAMINATION: US RETROPERITONEAL LIMITED (RENAL ONLY) CLINICAL INFORMATION: Calculus of kidney. COMPARISON: CT abdomen and pelvis 10/02/2021. X-ray abdomen 03/05/2020. Renal ultrasound 01/09/2019. TECHNIQUE: Real-time imaging of the kidneys. FINDINGS: RIGHT KIDNEY: 14.9 x 6.4 x 7.2 cm (SAG x AP x TRV). The kidney is normal in size, contour, and echogenicity. Renal cortical thickness is normal. There is a stone in the lower pole measuring 1.2 x 0.5 x 1.2 cm. Other right renal stone seen by CT September 2021 are not appreciated by ultrasound. No focal parenchymal lesions or hydronephrosis. LEFT KIDNEY: 13.0 x 5.8 x 6.1 cm (SAG x AP x TRV). The kidney is normal in size and contour. Renal cortical thickness is normal. Mild fullness of the renal pelvis. This is similar to previous CT. No definite hydronephrosis. Left renal stones seen by CT not appreciated by ultrasound. No renal calculi or focal parenchymal lesions. US/US renal BI IMPRESSION: Right lower pole renal stone. Other bilateral renal stones appreciated by CT September 2021 not appreciated by ultrasound. Mild left fullness of the left renal pelvis similar to previous CT.
== END 2022-01-05 09:59 | disposition home or self-care (01) ==
LOC: HO.HMGCX 09:58
PROVIDERS: PCP Internal Medicine; Visit Provider Urology
DX: N20.0 Calculus of kidney (principal)
CPT/HCPCS: 76775

== ENCOUNTER 2022-01-11 09:55 | Outpatient (REF) | payer MEDICARE, MEDICAID, SELFPAY ==
--- NOTE | ~2022-01-11 | XR_ITS ---
EXAMINATION: XR CHEST CLINICAL INFORMATION: Pneumonia COMPARISON: Previous chest x-ray 12/20/[address] March 2020 TECHNIQUE: 2 views of the chest FINDINGS: The cardiac and mediastinal contours are stable. There is residual linear density at the left lung base probably in the lingula suggestive of subsegmental atelectasis. Left lung base is otherwise clear. There is a 6 mm nodule at the left lung apex. When compared to previous CT this probably represents a calcified granuloma. There is left apical pleural thickening. The right lung is clear. There is no pleural effusion. There is question of old trauma or surgical change to the left proximal ribs. There are mild degenerative changes of the spine. XR/XR chest 2V IMPRESSION: Clearing left base pneumonia. There is residual probable subsegmental atelectasis in the lingula.
== END 2022-01-11 09:56 | disposition home or self-care (01) ==
LOC: HO.XRAY 09:55
PROVIDERS: Absent Provider Internal Medicine; PCP Internal Medicine; Visit Provider General Practice
DX: J18.9 Pneumonia, unspecified organism (principal)
CPT/HCPCS: 71046

== ENCOUNTER → 2022-01-13 13:38 | Outpatient (BNVA) | payer MEDICARE, MEDICAID, SELFPAY | PROVIDERS: PCP Internal Medicine; Visit Provider Urology | DX: N20.0 Calculus of kidney (principal) | CPT/HCPCS: Q3014 ==

== ENCOUNTER → 2022-01-20 13:59 | Outpatient (BNVA) | payer MEDICARE, MEDICAID, SELFPAY | PROVIDERS: PCP Internal Medicine; Visit Provider Hospitalist | DX: J45.909 Unspecified asthma, uncomplicated (principal); J18.9 Pneumonia, unspecified organism; R91.1 Solitary pulmonary nodule; R93.89 Abnormal findings on diagnostic imaging of other specified body structures; R60.0 Localized edema | CPT/HCPCS: 99202 ==

== ENCOUNTER 2022-02-24 00:07 | Emergency (ER) | payer OTHER, SELFPAY ==
--- NOTE | 2022-02-24 | ECG_ITS ---
Test Reason : abdominal pain Blood Pressure : / mmHG Vent. Rate : 078 BPM Atrial Rate : 078 BPM P-R Int : 162 ms QRS Dur : 098 ms QT Int : 384 ms P-R-T Axes : 051 -02 021 degrees QTc Int : 437 ms Sinus rhythm with marked sinus arrhythmia with Premature supraventricular complexes Moderate voltage criteria for LVH, may be normal variant ( R in aVL , [place] product ) Borderline ECG When compared with ECG of 20-DEC-2021 14:01, Premature supraventricular complexes are now Present Referred By: Generic ED Physician Electronically Signed By:Eduard Reyes
--- NOTE | ~2022-02-24 | CT_ITS ---
EXAMINATION: CT ABDOMEN AND PELVIS WITHOUT CONTRAST CLINICAL INFORMATION: Diffuse abdominal pain with distention. COMPARISON: 10/02/2021 TECHNIQUE: Multidetector volumetric imaging was performed from the superior aspect of the liver through the pubic symphysis. Sagittal and coronal reformatted images were obtained on the technologist's workstation. This CT examination was performed using dose optimization techniques as appropriate, variously including the following: *Automated exposure control *Adjustment of mA and/or kV according to patient size (this includes techniques or standardized protocols for targeted exams where dose is matched to indication/reason for exam; i.e. extremities or head) *Use of iterative reconstruction technique DLP: 925 mGy-cm FINDINGS: LUNG BASES: The visualized lung bases are unremarkable. LIVER, GALLBLADDER, AND BILIARY TREE: The liver is normal in size, shape, and attenuation. No focal hepatic lesion or biliary ductal dilatation is present. The gallbladder is not seen. PANCREAS: Unremarkable. SPLEEN: Unremarkable. ADRENAL GLANDS: Unremarkable. KIDNEYS AND URETERS: Normal positioning of the kidneys. Bilateral cortical thinning. No hydronephrosis. Multiple right-sided renal calculi. Decrease in the right-sided renal calculi compared to prior. At least 2 calculi remain. The largest is at the lower pole measuring 0.9 cm, 10 cm from the posterior axillary line. This measures 400 Hounsfield units. 0.2 cm left upper pole calculus is 15 cm from the posterior axillary line. BLADDER: Unremarkable. GASTROINTESTINAL TRACT: The stomach is unremarkable. Normal caliber small bowel. No obstruction. No colonic wall thickening or inflammation. A portion of the transverse colon extends into a ventral abdominal wall hernia, similar to previous. ABDOMINAL WALL: Ventral abdominal wall hernia containing a portion of the transverse colon. The abdominal wall defect measures 3.4 cm transverse. This is similar to prior. There is increased inflammation in the subcutaneous fat along the left abdominal wall with associated skin thickening. LYMPH NODES: Normal. VASCULAR: Unremarkable. PELVIC VISCERA: The uterus and adnexa are unremarkable. OSSEOUS STRUCTURES: No acute or suspicious osseous abnormality. Mild degenerative change throughout the spine. CT/CT abdomen pelvis wo IV con IMPRESSION: 1. No acute finding in the abdomen or pelvis. No bowel obstruction. 2. Ventral abdominal wall hernia containing a portion of the transverse colon. This is similar to prior. 3. Bilateral renal cortical thinning. Bilateral nonobstructing renal calculi. 4. Increased inflammation in the subcutaneous fat of the left abdominal wall with associated skin thickening. Fleischner guidelines were followed.
[2022-02-24 00:16] VITALS: BP 184/74; PULSE 78; RESP 20; TEMP 36.6; O2SAT 95
[2022-02-24 00:37] VITALS: BP 169/100; PULSE 111; PULSE 85; RESP 18; O2SAT 98; BMI 51.0
[2022-02-24 00:58] LABS: Basophils Absolute Auto 0.1 X10*3/uL (0.0-0.2); Basophils Percent Auto 0.7 % (0-2); Eosinophils Absolute Auto 0.2 X10*3/uL (0.0-0.4); Eosinophils Percent Auto 1.7 % (0-4); Hematocrit 28.3 % (37.0-47.0); Hemoglobin 9.5 g/dl (12.0-16.0); Imm Gran Abs Auto 0.03 X10*3/uL (0.00-0.03); Imm Gran Pct Auto 0.3 % (0.0-0.4); Lymphocytes Absolute Auto 1.8 X10*3/uL (1.2-4.9); Lymphocytes Percent Auto 18.5 % (20-40); MANUAL DIFF FLAG NO; Mean Corpuscular HGB Conc 33.6 g/dl (31.0-35.0); Mean Corpuscular Hemoglobin 30.1 pg (27.0-33.0); Mean Corpuscular Volume 89.6 fL (80.0-98.0); Mean Platelet Volume 11.8 fL (9.4-12.3); Monocytes Absolute Auto 0.7 X10*3/uL (0.1-1.2); Monocytes Percent Auto 7.4 % (2-11); Neutrophils Percent Auto 71.4 % (45-73); Red Blood Count 3.16 X10*6/uL (4.20-5.50); Red Cell Distribution Width 13.2 % (11.0-16.0); White Blood Count 9.8 X10*3/uL (4.8-10.8)
[2022-02-24 01:20] LABS: Alanine Aminotransferase 7 U/L (0-31); Albumin Level 2.5 g/dL (3.5-5.0); Alkaline Phosphatase 122 U/L (39-117); Anion Gap 13 (12-20); Aspartate Amino Transferase 13 U/L (5-31); Bilirubin Total 0.2 mg/dL (0.0-1.0); Blood Urea Nitrogen 23 mg/dL (9-16); Carbon Dioxide 25 mmol/L (22-29); Chloride 108 mmol/L (96-108); Creatinine Clr Calc Pharmacy 42.5; Estimated Glomerular Filt Rate 31; Glucose Random 96 mg/dL (60-115); Potassium 3.6 mmol/L (3.3-5.1); Sodium 142 mmol/L (135-145); Total Protein 5.2 g/dL (6.5-8.0)
--- NOTE | 2022-02-24 01:21 | ED_ITS ---
HPI - Abdominal Pain General Chief Complaint: Abdominal Pain Stated Complaint: Vomiting Time Seen by Provider: 02/24/22 00:46 Source: patient Mode of arrival: ambulatory Limitations: no limitations History of Present Illness HPI narrative: Patient comes to the emergency room complaining of intermittent abdominal pain for a week. However, over the last few hours, she has a constant pain. Patient complaining of nausea and vomiting, no diarrhea, no obstipation. Patient denies fever chills, no URI or UTI symptoms. Related Data Home Medications Medication Instructions Recorded Confirmed blood sugar diagnostic (FreeStyle 03/28/20 10/13/21 Lite Strips) blood-glucose meter (FreeStyle 03/28/20 10/13/21 Cub Run Lite kit) lacosamide 200 mg tablet (Vimpat) 200 mg PO BID 03/28/20 12/20/21 lancets 28 gauge (FreeStyle 03/28/20 10/13/21 Lancets) insulin glargine U-300 conc 300 30 unit subcut BID 03/29/20 12/20/21 unit/mL (1.5 mL) subcutaneous pen (Wolf SolKaseyar U-300 Insulin) duloxetine 60 mg capsule,delayed 60 mg PO DAILY 10/02/21 12/20/21 release sprinkle losartan 50 mg tablet 50 mg PO BID 10/02/21 12/20/21 omeprazole 40 mg capsule,delayed 40 mg PO DAILY 10/02/21 12/20/21 release quetiapine 25 mg tablet (Seroquel) 25 mg PO BEDTIME PRN Sleep 10/02/21 12/20/21 blood pressure test kit-large #1 ea 10/12/21 10/13/21 albuterol sulfate 90 mcg/actuation 2 puff inhalation Q4-6H PRN 12/20/21 12/20/21 aerosol inhaler (Proventil HFA) Shortness Of Breath amlodipine 10 mg tablet 1 tab PO DAILY 12/20/21 12/20/21 atorvastatin 80 mg tablet 1 tab PO DAILY 12/20/21 12/20/21 famotidine 20 mg tablet 1 tab PO BID 12/20/21 12/20/21 oxybutynin chloride 10 mg 1 tab PO DAILY 12/20/21 12/20/21 tablet,extended release 24 hr trimethoprim 100 mg tablet 100 mg PO DAILY 12/20/21 12/20/21 albuterol sulfate 2.5 mg/3 mL mg inhalation TID PRN wheezing 01/20/22 (0.083 %) solution for nebulization fluticasone propionate 110 1 puff inhalation BID 01/20/22 mcg/actuation HFA aerosol inhaler (Flovent HFA) nebulizers 01/20/22 Previous Rx's Medication Instructions Recorded insulin lispro 200 unit/mL (3 mL) 16 unit (0.08 mL) subcut TIDAC #6 10/05/21 subcutaneous pen (Humalog KwikPen mL U-200 Insulin) benzonatate 100 mg capsule 100 mg PO TID PRN cough #21 caps 12/22/21 cefuroxime axetil 500 mg tablet 500 mg PO BID 5 days #10 tabs 12/22/21 dextromethorphan-guaifenesin 5 10 ml PO Q4-8H PRN cough #118 mL 12/22/21 mg-100 mg/5 mL oral liquid (Child Chest Congestion-Cough) fluticasone furoate 100 1 inh inhalation DAILY 30 days #60 01/20/22 mcg-vilanterol 25 mcg/dose ea inhalation powder (Breo Ellipta) furosemide 20 mg tablet (Lasix) 20 mg PO DAILY #3 tabs 01/20/22 acetaminophen 500 mg tablet 500 mg PO Q6H PRN fever or pain 02/24/22 #14 tabs ondansetron 4 mg disintegrating 4 mg PO Q6H PRN nausea and 02/24/22 tablet vomiting #10 tabs Allergies Allergy/AdvReac Type Severity Reaction Status Date / Time egg Allergy Mild Abdominal Verified 01/20/22 14:07 Pain Review of Systems Review of Systems Constitutional : No Weight loss, No Fever, No Chills, No Night Sweats, No Fatigue, No Malaise ENT/Mouth : No Hearing loss, No Ear Pain, No Nasal Congestion, No Sinus Pain, No Hoarseness, No sore throat, No Rhinorrhea, No Swallowing Difficulty Eyes: No Eye Pain, No Swelling, No Redness, No Foreign Body, No Discharge, No Vision Changes Cardiovascular : No Chest Pain, No SOB, No Dyspnea on Exertion, No Orthopnea, No Edema, No Palpitations Respiratory : No Cough, No Sputum, No Wheezing, No Smoke Exposure, No Dyspnea Gastrointestinal : Complaining of nausea and vomiting, no diarrhea, no cons tipation, no obstipation, complaining of diffuse abdominal distension and pain.no Hematochezia, No Melena Genitourinary : no irregular bleeding, No Dysuria, No Urinary Frequency, No Hematuria, No Urinary Incontinence, No Urgency, No Flank Pain, No Urinary Flow Changes, No Hesitancy Musculoskeletal : No joint pain, No Myalgias, No Joint Swelling Skin : No Skin Lesions, No rash Neuro : No Weakness, No Numbness, No Paresthesias, No Loss of Consciousness, No Dizziness, No Headache Psych : No Anxiety/Panic, No Depression, No SI/HI/AH/VH, No Social Issues, Heme/Lymph: No Bruising, No Bleeding,No Lymphadenopathy Endocrine : No Polyuria, No Polydipsia, No Temperature Intolerance [facility] Past Medical History Medical History Abnormal soft tissue x-ray of chest Acute hypoxemic respiratory failure due to COVID-19 Asthma Brain tumor CKD (chronic kidney disease) stage 3, GFR 30-59 ml/min COVID-19 COVID-19 virus infection Depression Diabetes Gastritis Gastritis HLD (hyperlipidemia) Kidney stone Lower extremity edema Pneumonia Pulmonary nodule Seizure Surgical History H/O hernia repair History of cholecystectomy Family History Family History Father CAD (coronary artery disease) Brother Lung cancer Sister Kidney stone Social History Social History Household Members: Family Housing: Apartment Do you presently have visiting nurse or other home services: No Alcohol intake: never Patient Tobacco Use Status: Never used Tobacco Smoked in Last 30 Days: No Use of substances other than those prescribed or required for medical reasons: No Advance Directives: No service: No Current occupational status: unemployed Physical Exam ED Vital Signs: Vital Signs - 24 hr 02/24/22 00:16 02/24/22 00:37 02/24/22 02:50 Temperature 97.8 F Pulse Rate 78 111 H 73 Respiratory Rate 20 18 16 Blood Pressure 184/74 H 169/100 H 165/61 H Pulse Oximetry 95 98 98 Oxygen Delivery Method Room Air Room Air Room Air BMI result Body Mass Index 51.0 Const Other: Appearance: Alert. Oriented X3. Looks uncomfortable Eyes: Pupils equal, round and reactive to light. ENT: Pharynx normal. Neck: Normal inspection. Neck supple. No lymph nodes noted. No crepitus CVS: Normal heart rate and rhythm. Pulses normal. Normal S1 and S2 Respiratory: No respiratory distress. Breath sounds normal. No Wheezing. No rales Abdomen: Soft , distended, diffuse pain on palpation Skin: Skin warm and dry. Normal skin color. Normal skin turgor. Extremities: No lower extremity edema. No Lacerations. No Rash Neuro: Oriented X 3. No motor deficit. No sensory deficit. Moving all extremities. No slurred speech. CN 2 through 12 grossly intact Psych: calm, cooperative, normal affect Course Course Course Narrative: All Of patient's labs and imaging pending. Patient is having IV fluids, Zofran and morphine I discussed the CT scan findings with the patient no acute findings. Patient feeling better after IV fluids Zofran and morphine. Patient ready for discharge. Medical Decision Making Differential Diagnosis Differential Diagnoses: The differential diagnosis associated with the presentation includes (Gastroenteritis, small-bowel obstruction, viral syndrome) Lab Data MDM Lab Attestation statement: I reviewed the patient's lab results. 02/24/22 00:53 02/24/22 00:53 Labs: Lab Results 02/24/22 02/24/22 02/24/22 Range/Units 00:53 00:53 01:49 WBC 9.8 (4.8-10.8) X10*3/uL RBC 3.16 L D (4.20-5.50) X10*6/uL Hgb 9.5 L D (12.0-16.0) g/dl Hct 28.3 L (37.0-47.0) % MCV 89.6 (80.0-98.0) fL MCH 30.1 (27.0-33.0) pg MCHC 33.6 (31.0-35.0) g/dl RDW 13.2 (11.0-16.0) % Plt Count TNP MPV 11.8 (9.4-12.3) fL Immature Gran % (Auto) 0.3 (0.0-0.4) % Neut % (Auto) 71.4 (45-73) % Lymph % (Auto) 18.5 L (20-40) % [place] % (Auto) 7.4 (2-11) % Eos % (Auto) 1.7 (0-4) % Baso % (Auto) 0.7 (0-2) % Lymph # (Auto) 1.8 (1.2-4.9) X10*3/uL [place] # (Auto) 0.7 (0.1-1.2) X10*3/uL Eos # (Auto) 0.2 (0.0-0.4) X10*3/uL Baso # (Auto) 0.1 (0.0-0.2) X10*3/uL Abs Immat Gran (auto) 0.03 (0.00-0.03) X10*3/uL Absolute Neuts (auto) 7.0 (2.0-8.3) x10*3/uL Absolute Nucleated RBC 0.000 (0.0-0.012) X10*3/uL Nucleated RBC % (auto) 0.0 (0.0-0.2) /100WBC Sodium 142 (135-145) mmol/L Potassium 3.6 D (3.3-5.1) mmol/L Chloride 108 (96-108) mmol/L Carbon Dioxide 25 (22-29) mmol/L Anion Gap 13 (12-20) BUN 23 H (9-16) mg/dL Creatinine 1.68 H (0.5-1.4) mg/dL Estim Creat Clear Calc 42.5 Estimated GFR 31 Random Glucose 96 (60-115) mg/dL Calcium 8.2 L (8.4-10.2) mg/dL Total Bilirubin 0.2 (0.0-1.0) mg/dL Direct Bilirubin < 0.2 (0.0-0.5) mg/dL AST 13 (5-31) U/L ALT 7 (0-31) U/L Alkaline Phosphatase 122 H (39-117) U/L Total Protein 5.2 L (6.5-8.0) g/dL Albumin 2.5 L (3.5-5.0) g/dL Lipase 23 (8-78) U/L Urine Color Straw Urine Appearance Clear Urine pH 7.0 (5.0-9.0) Ur Specific [place] 1.015 (1.005-1.025) Urine Protein 300 (3+) H (Neg-Trace) mg/dL Urine Glucose (UA) 100 H (Negative) mg/dL Urine Ketones Negative (Negative) mg/dL Urine Blood Small (1+) H (Negative) Urine Nitrite Negative (Negative) Ur Leukocyte Esterase Negative (Negative) Urine RBC 3-5 H (0-2) /HPF Urine WBC 21-50 H (0-5) /HPF Ur Squamous Epith Cells 0-2 (0-2) /HPF Urine Bacteria None Seen (None Seen) Hyaline Casts 3-5 (0-2) /LPF Urine Test (NEGATIVE) 02/24/22 Range/Units 01:50 WBC (4.8-10.8) X10*3/uL RBC (4.20-5.50) X10*6/uL Hgb (12.0-16.0) g/dl Hct (37.0-47.0) % MCV (80.0-98.0) fL MCH (27.0-33.0) pg MCHC (31.0-35.0) g/dl RDW (11.0-16.0) % Plt Count MPV (9.4-12.3) fL Immature Gran % (Auto) (0.0-0.4) % Neut % (Auto) (45-73) % Lymph % (Auto) (20-40) % [place] % (Auto) (2-11) % Eos % (Auto) (0-4) % Baso % (Auto) (0-2) % Lymph # (Auto) (1.2-4.9) X10*3/uL [place] # (Auto) (0.1-1.2) X10*3/uL Eos # (Auto) (0.0-0.4) X10*3/uL Baso # (Auto) (0.0-0.2) X10*3/uL Abs Immat Gran (auto) (0.00-0.03) X10*3/uL Absolute Neuts (auto) (2.0-8.3) x10*3/uL Absolute Nucleated RBC (0.0-0.012) X10*3/uL Nucleated RBC % (auto) (0.0-0.2) /100WBC Sodium (135-145) mmol/L Potassium (3.3-5.1) mmol/L Chloride (96-108) mmol/L Carbon Dioxide (22-29) mmol/L Anion Gap (12-20) BUN (9-16) mg/dL Creatinine (0.5-1.4) mg/dL Estim Creat Clear Calc Estimated GFR Random Glucose (60-115) mg/dL Calcium (8.4-10.2) mg/dL Total Bilirubin (0.0-1.0) mg/dL Direct Bilirubin (0.0-0.5) mg/dL AST (5-31) U/L ALT (0-31) U/L Alkaline Phosphatase (39-117) U/L Total Protein (6.5-8.0) g/dL Albumin (3.5-5.0) g/dL Lipase (8-78) U/L Urine Color Urine Appearance Urine pH (5.0-9.0) Ur Specific [place] (1.005-1.025) Urine Protein (Neg-Trace) mg/dL Urine Glucose (UA) (Negative) mg/dL Urine Ketones (Negative) mg/dL Urine Blood (Negative) Urine Nitrite (Negative) Ur Leukocyte Esterase (Negative) Urine RBC (0-2) /HPF Urine WBC (0-5) /HPF Ur Squamous Epith Cells (0-2) /HPF Urine Bacteria (None Seen) Hyaline Casts (0-2) /LPF Urine Test NEGATIVE (NEGATIVE) Independent Interpretation I performed an independent interpretation of an: CT Scan (Patient has a ventral hernia, does not seem incarcerated.) Radiology Impression Discussion of test interpretation with radiology: I have reviewed the radiologist's reading. Radiologist Impression: FINDINGS: LUNG BASES: The visualized lung bases are unremarkable.? LIVER, GALLBLADDER, AND BILIARY TREE: The liver is normal in size, shape, and attenuation. No focal hepatic lesion or biliary ductal dilatation is present. The gallbladder is not seen.? PANCREAS: Unremarkable.? SPLEEN: Unremarkable.? ADRENAL GLANDS: Unremarkable.? KIDNEYS AND URETERS: Normal positioning of the kidneys. Bilateral cortical thinning. No hydronephrosis. Multiple right-sided renal calculi. Decrease in the right-sided renal calculi compared to prior. At least 2 calculi remain. The largest is at the lower pole measuring 0.9 cm, 10 cm from the posterior axillary line. This measures 400 Hounsfield units. 0.2 cm left upper pole calculus is 15 cm from the posterior axillary line. BLADDER: Unremarkable.? GASTROINTESTINAL TRACT: The stomach is unremarkable. Normal caliber small bowel. No obstruction. No colonic wall thickening or inflammation. A portion of the transverse colon extends into a ventral abdominal wall hernia, similar to previous.? ABDOMINAL WALL: Ventral abdominal wall hernia containing a portion of the transverse colon. The abdominal wall defect measures 3.4 cm transverse. This is similar to prior. There is increased inflammation in the subcutaneous fat along the left abdominal wall with associated skin thickening.? LYMPH NODES: Normal. VASCULAR: Unremarkable. PELVIC VISCERA: The uterus and adnexa are unremarkable.? OSSEOUS STRUCTURES: No acute or suspicious osseous abnormality. Mild degenerative change throughout the spine.? CT/CT abdomen pelvis wo IV con IMPRESSION: 1.? No acute finding in the abdomen or pelvis. No bowel obstruction. 2.? Ventral abdominal wall hernia containing a portion of the transverse colon. This is similar to prior. 3.? Bilateral renal cortical thinning. Bilateral nonobstructing renal calculi. 4.? Increased inflammation in the subcutaneous fat of the left abdominal wall with associated skin thickening. Medications Administered Discontinued Medications Generic Name Dose Route Start Last Admin Trade Name Freq PRN Reason Stop Dose Admin Sodium Chloride 1,000 mls @ 999 mls/hr 02/24/22 01:24 02/24/22 03:03 Ns IVCONT 02/24/22 02:24 Infused .Q1H1M ONE Infusion Morphine Sulfate 4 mg 02/24/22 01:21 02/24/22 01:30 Morphine Sulfate 4 Mg/Ml Cartridge IVPUSH 02/24/22 01:22 4 mg ONCE ONE Administration Protocol Ondansetron HCl 4 mg 02/24/22 01:21 02/24/22 01:30 Ondansetron Hcl 4 Mg/2 Ml Vial IVPUSH 02/24/22 01:22 4 mg ONCE ONE Administration Discharge Plan Discharge Clinical Impression: Abdominal pain, Vomiting Patient Disposition: Home, Self-Care Instructions: Acute Nausea and Vomiting (ED), Abdominal Pain (ED) Additional Instructions: Please follow-up with your primary care physician tomorrow. If you have any worsening or new symptoms, please return to the emergency room or call 911 Prescriptions: New ondansetron 4 mg tablet,disintegrating 4 mg PO Q6H PRN (Reason: nausea and vomiting) Qty: 10 0RF acetaminophen 500 mg tablet 500 mg PO Q6H PRN (Reason: fever or pain) Qty: 14 0RF No Action (DME) FreeStyle Lite Strips Strip MISCELLANEOUS QID (DME) blood-glucose meter [FreeStyle Cub Run Lite] Kit MISCELLANEOUS BID lacosamide [Vimpat] 200 mg tablet 200 mg PO BID (DME) lancets [FreeStyle Lancets] 28 gauge misc 1 gauge topical BID Toujeo SoloStar U-300 Insulin 300 unit/mL (1.5 mL) insulin pen 30 unit subcut BID omeprazole 40 mg capsule,delayed release(DR/EC) 40 mg PO DAILY losartan 50 mg Tablet 50 mg PO BID quetiapine [Seroquel] 25 mg Tablet 25 mg PO BEDTIME PRN (Reason: Sleep) duloxetine 60 mg Capsule, Delayed Rel Sprinkle 60 mg PO DAILY Humalog KwikPen Insulin 200 unit/mL (3 mL) insulin pen 16 unit subcut TIDAC Qty: 6 0RF atorvastatin 80 mg tablet 1 tab PO DAILY oxybutynin chloride 10 mg tablet extended release 24hr 1 tab PO DAILY famotidine 20 mg tablet 1 tab PO BID amlodipine 10 mg tablet 1 tab PO DAILY albuterol sulfate [Proventil HFA] 90 mcg/actuation HFA aerosol inhaler 2 puff INHALATION Q4-6H PRN (Reason: Shortness Of Breath) trimethoprim 100 mg Tablet 100 mg PO DAILY cefuroxime axetil 500 mg tablet 500 mg PO BID 5 Days Qty: 10 0RF Child Chest Congestion-Cough 5-100 mg/5 mL liquid 10 ml PO Q4-8H PRN (Reason: cough) Qty: 118 0RF benzonatate 100 mg capsule 100 mg PO TID PRN (Reason: cough) Qty: 21 0RF (DME) blood pressure test kit-large Kit See Rx Instructions .ROUTE DAILY Qty: 1 Rx Instructions: As directed albuterol sulfate 2.5 mg /3 mL (0.083 %) solution for nebulization inhalation TID PRN (Reason: wheezing) fluticasone propionate [Flovent HFA] 110 mcg/actuation HFA aerosol inhaler 1 puff inhalation BID (DME) nebulizers Mis See Rx Instructions .ROUTE Rx Instructions: As directed furosemide [Lasix] 20 mg tablet 20 mg PO DAILY Qty: 3 0RF fluticasone furoate-vilanterol [Breo Ellipta] 100-25 mcg/dose blister with device 1 inh inhalation DAILY 30 Days Qty: 60 11RF
[2022-02-24 01:26] LABS: Calcium 8.2 mg/dL (8.4-10.2)
[2022-02-24] MEDS: 0.9 % Sodium Chloride 1,000 ML 999 ML IVCONT (01:30)
[2022-02-24] MEDS: ondansetron HCL 4 MG/2 ML VIAL IVPUSH (01:30)
[2022-02-24] MEDS: Morphine Sulfate 4 MG/ML CARTRIDGE IVPUSH (01:30)
[2022-02-24 01:46] LABS: Bilirubin Direct < 0.2 mg/dL (0.0-0.5); Lipase 23 U/L (8-78)
[2022-02-24 01:58] LABS: Appearance Urine Clear; Color Urine Straw; Glucose Urine UA 100 mg/dL (Negative); Leukocyte Esterase Urine Negative (Negative); Nitrite Urine Negative (Negative); Specific Gravity - Urine 1.015 (1.005-1.025); UMIC TRIGGER UACC YES; Urine Blood Small (1+) (Negative); Urine Ketones Negative (Negative); Urine Protein 300 (3+) mg/dL (Neg-Trace)
--- NOTE | 2022-02-24 01:59 | PC.NURSE ---
Pt's son-in-law, Daryl
[2022-02-24 02:00] LABS: UPreg QC Valid YES; Urine Pregnancy NEGATIVE (NEGATIVE)
[2022-02-24 02:04] LABS: Bacteria Urine None Seen (None Seen); Squamous Epithelial Cell Urine 0-2 /HPF (0-2); UACC Culture Trigger YES; WBC Urine 21-50 /HPF (0-5)
[2022-02-24 02:50] VITALS: BP 165/61; PULSE 73; RESP 16; O2SAT 98
[2022-02-24] MEDS: oxyCODONE HCl Immed Release 5 MG TABLET PO (03:40)
[2022-02-24 03:41] VITALS: BP 173/73; PULSE 75; RESP 14; O2SAT 97
== END 2022-02-24 03:55 | disposition home or self-care (01) ==
PROVIDERS: Emergency Provider Emergency Medicine
DX: R10.9 Unspecified abdominal pain (principal); R11.10 Vomiting, unspecified; E11.22 Type 2 diabetes mellitus with diabetic chronic kidney disease; I12.9 Hypertensive chronic kidney disease with stage 1 through stage 4 chronic kidney disease, or unspecified chronic kidney disease; N18.30 Chronic kidney disease, stage 3 unspecified; Z79.02 Long term (current) use of antithrombotics/antiplatelets; Z79.899 Other long term (current) drug therapy; Z79.4 Long term (current) use of insulin
CPT/HCPCS: 36415; 74176; 80053; 81001; 81025; 82248; 83690; 85025; 87086; 87147; 93005; 96361; 96374; 96375; 99284; 99285; J2270; J2405

== ENCOUNTER 2022-04-25 10:01 | Outpatient (REF) | payer OTHER, SELFPAY ==
[2022-04-25 11:18] LABS: Appearance Urine Cloudy; Color Urine Yellow; Glucose Urine UA 250 mg/dL (Negative); Leukocyte Esterase Urine Small (1+) (Negative); Nitrite Urine Negative (Negative); PH 6.5 (5.0-9.0); Specific Gravity - Urine 1.025 (1.005-1.025); UMIC TRIGGER UA YES; Urine Blood Small (1+) (Negative); Urine Ketones Negative (Negative); Urine Protein >=1000 (4+) mg/dL (Neg-Trace)
[2022-04-25 11:25] LABS: Basophils Absolute Auto 0.1 X10*3/uL (0.0-0.2); Basophils Percent Auto 0.6 % (0-2); Eosinophils Absolute Auto 0.3 X10*3/uL (0.0-0.4); Eosinophils Percent Auto 2.6 % (0-4); Hematocrit 31.1 % (37.0-47.0); Hemoglobin 10.4 g/dl (12.0-16.0); Imm Gran Abs Auto 0.05 X10*3/uL (0.00-0.03); Imm Gran Pct Auto 0.5 % (0.0-0.4); Lymphocytes Absolute Auto 1.2 X10*3/uL (1.2-4.9); Lymphocytes Percent Auto 12.7 % (20-40); Mean Corpuscular HGB Conc 33.4 g/dl (31.0-35.0); Mean Corpuscular Hemoglobin 30.6 pg (27.0-33.0); Mean Corpuscular Volume 91.5 fL (80.0-98.0); Mean Platelet Volume 11.8 fL (9.4-12.3); Monocytes Absolute Auto 0.5 X10*3/uL (0.1-1.2); Monocytes Percent Auto 4.8 % (2-11); Neutrophils Absolute Auto 7.6 x10*3/uL (2.0-8.3); Neutrophils Percent Auto 78.8 % (45-73); Red Cell Distribution Width 12.7 % (11.0-16.0); White Blood Count 9.7 X10*3/uL (4.8-10.8)
[2022-04-25 11:28] LABS: Platelet Count 225 X10*3/uL (160-400)
[2022-04-25 11:34] LABS: Bacteria Urine Trace (None Seen); WBC Urine >50 /HPF (0-5)
[2022-04-25 11:38] LABS: Alanine Aminotransferase 10 U/L (0-31); Albumin Level 2.8 g/dL (3.5-5.0); Alkaline Phosphatase 117 U/L (39-117); Anion Gap 10 (12-20); Aspartate Amino Transferase 13 U/L (5-31); Bilirubin Total 0.4 mg/dL (0.0-1.0); Blood Urea Nitrogen 31 mg/dL (9-16); Calcium 8.3 mg/dL (8.4-10.2); Carbon Dioxide 28 mmol/L (22-29); Chloride 108 mmol/L (96-108); Estimated Glomerular Filt Rate 28; Glucose Fasting 153 mg/dL (60-99); Sodium 141 mmol/L (135-145); Total Protein 5.6 g/dL (6.5-8.0)
[2022-04-25 13:13] LABS: Creatinine Urine 89.23 mg/dL
[2022-04-25 14:31] LABS: Total Protein Urine Random > 2000 mg/dL (<12)
[2022-04-26 14:53] LABS: Calcium (PTHI) 8.7 mg/dL (8.6-10.4); PTHI 105 pg/mL (16-77)
== END 2022-04-25 10:02 | disposition home or self-care (01) ==
LOC: HO.10HDL 10:01
PROVIDERS: Visit Provider Internal Medicine Hypertension Specialist
DX: N18.30 Chronic kidney disease, stage 3 unspecified (principal)
CPT/HCPCS: 36415; 80053; 81001; 83970; 84156; 85025

== ENCOUNTER 2022-05-06 08:59 | Outpatient (REF) | payer OTHER, SELFPAY ==
--- NOTE | ~2022-05-06 | US_ITS ---
EXAMINATION: US ABDOMEN COMPLETE CLINICAL INFORMATION: CKD, GERD. COMPARISON: CT abdomen and pelvis 02/24/2022. Renal ultrasound 01/05/2022 and 01/09/2019. X-ray abdomen 03/05/2020. TECHNIQUE: Real-time imaging of the abdominal viscera. FINDINGS: PANCREAS: Normal. ABDOMINAL AORTA: The proximal, mid, and distal segments are normal in caliber. INFERIOR VENA CAVA: Visualized portions are normal. LIVER: The liver is normal in size. The liver contour is normal. Parenchymal echogenicity is normal. No focal hepatic lesion. There is no intrahepatic biliary duct dilatation seen. GALLBLADDER: Surgically absent. COMMON BILE DUCT: Normal in caliber measuring 0.6 cm in diameter. RIGHT KIDNEY: Nonobstructing stones measuring up to 1.6 cm. No hydronephrosis or focal parenchymal lesions. The kidney measures 14.0 cm in maximum dimension. LEFT KIDNEY: Nonobstructing stone measuring up to 7 mm. No hydronephrosis or focal parenchymal lesions. The kidney measures 13.7 cm in maximum dimension. SPLEEN: Normal. The spleen measures 11.5 cm in maximum dimension. FREE FLUID: None. US/US abdomen complete IMPRESSION: Bilateral nonobstructing nephrolithiasis. No hydronephrosis.
== END 2022-05-06 09:00 | disposition home or self-care (01) ==
LOC: HO.US 08:59
PROVIDERS: Absent Provider Internal Medicine Hypertension Specialist; PCP General Practice; Visit Provider General Practice
DX: K21.9 Gastro-esophageal reflux disease without esophagitis (principal); N18.30 Chronic kidney disease, stage 3 unspecified
CPT/HCPCS: 76700

== ENCOUNTER 2022-05-29 04:06 | Inpatient (IN) | payer OTHER, SELFPAY ==
[2022-05-29] VITALS (7 sets, daily range): BP systolic 120–151; BP diastolic 52–70; PULSE 67–79; RESP 16–23; TEMP 36.1–36.7; O2SAT 96–100; BMI 43.9
--- NOTE | ~2022-05-29 | FL_ITS ---
EXAMINATION: XR FLUOROSCOPY WITH IMAGES CLINICAL INFORMATION: Cystoscopy COMPARISON: CT abdomen of 05/29/2022 TECHNIQUE: Fluoroscopy Supervised By: Dr. Jeffrey Lobato. Fluoroscopy Time: 17.4 seconds. Cumulative Dose: 11.44 mGy. Images: 2. FINDINGS: Images demonstrate placement of a right ureteral stent. FL/FL guidance in OR IMPRESSION: Intraoperative fluoroscopy for urologic procedure.
--- NOTE | ~2022-05-29 | CT_ITS ---
EXAMINATION: CT ABDOMEN AND PELVIS WITHOUT CONTRAST CLINICAL INFORMATION: Abdominal pain. COMPARISON: CT abdomen and pelvis 05/29/2022. TECHNIQUE: Multidetector volumetric imaging was performed from the superior aspect of the liver through the pubic symphysis. Sagittal and coronal reformatted images were obtained on the technologist's workstation. This CT examination was performed using dose optimization techniques as appropriate, variously including the following: *Automated exposure control *Adjustment of mA and/or kV according to patient size (this includes techniques or standardized protocols for targeted exams where dose is matched to indication/reason for exam; i.e. extremities or head) *Use of iterative reconstruction technique DLP: 780 mGy-cm FINDINGS: LUNG BASES: The visualized lung bases are unremarkable. LIVER, GALLBLADDER, AND BILIARY TREE: The liver is normal in size, shape, and attenuation. No focal hepatic lesion or biliary ductal dilatation is present. The gallbladder is not seen likely contracted or absent. PANCREAS: Unremarkable. SPLEEN: Unremarkable. ADRENAL GLANDS: Unremarkable. KIDNEYS AND URETERS: The kidneys are normal size with mild cortical thinning especially right side. A right internal ureteral stent new since the last CT. Distal right ureteral calculi seen previously are not seen at this time. There are several small radiopaque calculi in mid and lower pole left kidney largest measuring 7 mm in the lower pole but no caliectasis. It is stable. There is an extrarenal left renal pelvis but no obstructive ureteral stone seen. BLADDER: Unremarkable. GASTROINTESTINAL TRACT: There is scattered stool and gas seen in the colon and small bowel loops without distention. The stomach is nondistended. ABDOMINAL WALL: There is an epigastric hernia containing loop of transverse colon. The neck is 3.3 cm wide. A small umbilical hernia containing intraperitoneal fat is noted. In the left paramidline abdomen in between the epigastric and umbilical hernia. A third umbilical hernia is noted containing some fat. There is mild fat stranding seen throughout the abdomen likely nonspecific edema. There is scattered fibrosis and granulation tissue in the right posterior buttocks with calcification likely from injections. LYMPH NODES: Normal. VASCULAR: Unremarkable. PELVIC VISCERA: The uterus is anteverted and appears unremarkable. No free fluid. No abnormal pelvic lymph nodes. OSSEOUS STRUCTURES: Minimal ventral spondylosis. No aggressive lytic or sclerotic process. CT/CT abdomen pelvis wo IV con IMPRESSION: 1. Multiple abdominal wall hernias as described above. 2. There is a right internal ureteral stent in place. The distal right ureteral calculi seen previously is not seen at this time. 3. There is mild constipation without obstruction. 4. Mild fat stranding seen throughout the abdomen likely nonspecific edema. 5. Left renal calculi without caliectasis. There is an extrarenal left renal pelvis but no obstructive ureteral stone seen. 6. Gallbladder is not seen likely contracted or absent. Fleischner guidelines were followed.
--- NOTE | ~2022-05-29 | CT_ITS ---
EXAMINATION: CT ABDOMEN AND PELVIS WITHOUT CONTRAST CLINICAL INFORMATION: Abdominal pain. Rule out obstruction, hernia, ischemia. COMPARISON: 02/24/2022 TECHNIQUE: Multidetector volumetric imaging was performed from the superior aspect of the liver through the pubic symphysis. Sagittal and coronal reformatted images were obtained on the technologist's workstation. This CT examination was performed using dose optimization techniques as appropriate, variously including the following: *Automated exposure control *Adjustment of mA and/or kV according to patient size (this includes techniques or standardized protocols for targeted exams where dose is matched to indication/reason for exam; i.e. extremities or head) *Use of iterative reconstruction technique DLP: 937 mGy-cm FINDINGS: LUNG BASES: The lung bases are clear. Coronary artery calcifications. LIVER, GALLBLADDER, AND BILIARY TREE: The liver is normal in size, shape, and attenuation. No focal hepatic lesion or biliary ductal dilatation is present. The gallbladder is not seen, likely absent. PANCREAS: Unremarkable. SPLEEN: Unremarkable. ADRENAL GLANDS: Unremarkable. KIDNEYS AND URETERS: The kidneys are normal in size, shape, and attenuation. There is a 0.4 cm calculus at the distal right ureter immediately proximal to the ureterovesicular junction. This is new from prior. No hydroureteronephrosis. Mild symmetric perinephric stranding. Multiple additional right-sided nonobstructing calculi. At least 3 calculi are present. The largest is seen at the lower pole measuring 0.7 cm, 15 cm from the posterior axillary line. There is mild cortical thinning. BLADDER: Normally distended without wall thickening. Gas in the bladder lumen likely associated with catheterization. GASTROINTESTINAL TRACT: The stomach is unremarkable. Normal caliber small bowel. There is no obstruction. Normal appendix. No colonic wall thickening or inflammation. A portion of the transverse colon extends into the ventral abdominal wall hernia, unchanged from prior. ABDOMINAL WALL: Ventral abdominal wall hernia containing a portion of the transverse colon. The abdominal wall defect measures 3.4 x 2.7 cm. No inflammatory change. LYMPH NODES: Normal. VASCULAR: Unremarkable. PELVIC VISCERA: The uterus and adnexa are unremarkable. OSSEOUS STRUCTURES: No acute or suspicious osseous abnormality. Mild degenerative changes of the spine. CT/CT abdomen pelvis wo IV con IMPRESSION: 1. 0.4 cm distal right ureteral calcification which is new from prior, likely a ureteral calculus. No hydroureteronephrosis. Additional nonobstructing right renal calculi. 2. Ventral abdominal wall hernia containing a portion of the transverse colon. No inflammatory change. No bowel obstruction. Fleischner guidelines were followed.
--- NOTE | 2022-05-29 04:25 | MHC.EDTECH ---
pt arrived with family , vss stable, labs and ekg done
--- NOTE | 2022-05-29 04:25 | ECG_ITS ---
Test Reason : SOB Blood Pressure : / mmHG Vent. Rate : 072 BPM Atrial Rate : 072 BPM P-R Int : 178 ms QRS Dur : 100 ms QT Int : 368 ms P-R-T Axes : 049 -02 043 degrees QTc Int : 402 ms Normal sinus rhythm Minimal voltage criteria for LVH, may be normal variant ( R in aVL ) Nonspecific T wave abnormality Abnormal ECG When compared with ECG of 24-FEB-2022 00:25, Premature supraventricular complexes are no longer Present T wave inversion now evident in Lateral leads Referred By: Izaiah Huertas Electronically Signed By:DAVID NASH MD
--- NOTE | 2022-05-29 04:30 | ED_ITS ---
HPI - Abdominal Pain General Chief Complaint: Abdominal Pain Stated Complaint: abd pain Time Seen by Provider: 05/29/22 04:20 Source: patient and family Mode of arrival: ambulatory Limitations: language barrier (Georgian speaking only, law enforcement officer used) History of Present Illness HPI narrative: 66-year-old female who presents emergency department for evaluation of sudden onset of abdominal. Patient states that she woke up with a pain at 01:00 hours. She states that the pain is a constant, sharp pain. She feels very bloated and distended. She states she feels like her hernia is going to explode. The pain is a constant, 10/10 pain. According to the daughter the patient does have constant abdominal pain and was started on medications for GERD but this is not changed her chronic pain. Tonina's pain however appears to be acute in different than her chronic pain. Patient states that she has had constant nausea since onset of the pain is had 3 episodes of vomiting. She denied fever, chills, cough, chest pain, frequency, urgency or dysuria. Past surgical history is significant for cholecystectomy, hernia repair, kidney stone removal, tumor of the brain 2 years prior. Related Data Home Medications Medication Instructions Recorded Confirmed blood sugar diagnostic (FreeStyle 03/28/20 10/13/21 Lite Strips) blood-glucose meter (FreeStyle 03/28/20 10/13/21 [place] Lite kit) lacosamide 200 mg tablet (Vimpat) 200 mg PO BID 03/28/20 12/20/21 lancets 28 gauge (FreeStyle 03/28/20 10/13/21 Lancets) insulin glargine U-300 conc 300 30 unit subcut BID 03/29/20 12/20/21 unit/mL (1.5 mL) subcutaneous pen (Thiagoo SoloStar U-300 Insulin) duloxetine 60 mg capsule,delayed 60 mg PO DAILY 10/02/21 12/20/21 release sprinkle losartan 50 mg tablet 50 mg PO BID 10/02/21 12/20/21 omeprazole 40 mg capsule,delayed 40 mg PO DAILY 10/02/21 12/20/21 release quetiapine 25 mg tablet (Seroquel) 25 mg PO BEDTIME PRN Sleep 10/02/21 12/20/21 blood pressure test kit-large #1 ea 10/12/21 10/13/21 albuterol sulfate 90 mcg/actuation 2 puff inhalation Q4-6H PRN 12/20/21 12/20/21 aerosol inhaler (Proventil HFA) Shortness Of Breath amlodipine 10 mg tablet 1 tab PO DAILY 12/20/21 12/20/21 atorvastatin 80 mg tablet 1 tab PO DAILY 12/20/21 12/20/21 famotidine 20 mg tablet 1 tab PO BID 12/20/21 12/20/21 oxybutynin chloride 10 mg 1 tab PO DAILY 12/20/21 12/20/21 tablet,extended release 24 hr trimethoprim 100 mg tablet 100 mg PO DAILY 12/20/21 12/20/21 albuterol sulfate 2.5 mg/3 mL mg inhalation TID PRN wheezing 01/20/22 (0.083 %) solution for nebulization fluticasone propionate 110 1 puff inhalation BID 01/20/22 mcg/actuation HFA aerosol inhaler (Flovent HFA) nebulizers 01/20/22 Previous Rx's Medication Instructions Recorded insulin lispro 200 unit/mL (3 mL) 16 unit (0.08 mL) subcut TIDAC #6 10/05/21 subcutaneous pen (Humalog KwikPen mL U-200 Insulin) benzonatate 100 mg capsule 100 mg PO TID PRN cough #21 caps 12/22/21 cefuroxime axetil 500 mg tablet 500 mg PO BID 5 days #10 tabs 12/22/21 dextromethorphan-guaifenesin 5 10 ml PO Q4-8H PRN cough #118 mL 12/22/21 mg-100 mg/5 mL oral liquid (Child Chest Congestion-Cough) fluticasone furoate 100 1 inh inhalation DAILY 30 days #60 01/20/22 mcg-vilanterol 25 mcg/dose ea inhalation powder (Breo Ellipta) furosemide 20 mg tablet (Lasix) 20 mg PO DAILY #3 tabs 01/20/22 acetaminophen 500 mg tablet 500 mg PO Q6H PRN fever or pain 02/24/22 #14 tabs ondansetron 4 mg disintegrating 4 mg PO Q6H PRN nausea and 02/24/22 tablet vomiting #10 tabs Allergies Allergy/AdvReac Type Severity Reaction Status Date / Time egg Allergy Mild Abdominal Verified 01/20/22 14:07 Pain Review of Systems Review of Systems Yes all other systems are reviewed and are negative [facility] Past Medical History [facility] Narrative: Social history: She denies tobacco, alcohol and drug use. Medical History Abnormal soft tissue x-ray of chest Acute hypoxemic respiratory failure due to COVID-19 Asthma Brain tumor CKD (chronic kidney disease) stage 3, GFR 30-59 ml/min COVID-19 COVID-19 virus infection Depression Diabetes Gastritis Gastritis HLD (hyperlipidemia) Kidney stone Lower extremity edema Pneumonia Pulmonary nodule Seizure Surgical History H/O hernia repair History of cholecystectomy Family History Family History Father CAD (coronary artery disease) Brother Lung cancer Sister Kidney stone Social History Social History Household Members: Family Housing: Apartment Do you presently have visiting nurse or other home services: No Alcohol intake: never Patient Tobacco Use Status: Never used Tobacco Smoked in Last 30 Days: No Use of substances other than those prescribed or required for medical reasons: No Advance Directives: Yes Advance Directives on File: Yes Advance Directives Date on File: 12/20/21 service: No Current occupational status: unemployed Physical Exam ED Vital Signs: Vital Signs - 24 hr 05/29/22 04:23 05/29/22 04:37 05/29/22 06:11 Temperature 98.0 F 98.1 F Pulse Rate 79 79 72 Respiratory Rate 16 16 16 Blood Pressure 151/70 H 151/70 H 120/58 L Pulse Oximetry 98 96 99 Oxygen Delivery Method Room Air Room Air Room Air 05/29/22 07:10 Temperature 97.6 F Pulse Rate 71 Respiratory Rate 23 H Blood Pressure 124/52 L Pulse Oximetry 100 Oxygen Delivery Method Room Air BMI result Body Mass Index 43.9 Const Other: Awake, alert, female patient, she appears to be in distress secondary to abdominal pain, patient's abdomen appears to be very distended, she has an elevated BMI of 43.9 HENAL Head: Yes normal to inspection, Yes normocephalic and Yes atraumatic Ears: external ears normal General nose exam: Normal external nose present Face and sinus: Yes normal facial exam Mouth: Normal oral and palatal mucosa present Throat: Yes posterior oropharynx normal Eyes General: appearance normal, both eyes and all related structures Pupils: Equal, round and reactive pupils present Neck Neck: Yes normal visual inspection, Yes no lymphadenopathy, Yes trachea midline and Yes supple Chest Chest palpation & inspection: normal inspection of the chest and normal palpation of entire chest wall Resp Effort & Inspection: normal respiratory effort and able to speak in complete sentences Auscultation: clear to auscultation bilaterally Cardio Rate: regular rate Rhythm: regular rhythm Heart sounds: S1 normal heart sound present, S2 normal heart sound present and no murmurs GI Other: Patient has a very distended abdomen, she has a large right upper quadrant scar and a midline scar, she has diminished bowel sounds, she has significant tenderness palpation of the ventral hernia and epigastric area. She also has left upper quadrant tenderness General: Yes no CVA tenderness Back/Spine/Pelvis Back: no CVA tenderness Skin General skin exam: no rashes or lesions noted Neuro Cranial nerves: Yes CN's II-XII intact bilaterally and Yes Equal, round and reactive pupils present Cognition (Neuro): normal cognition Motor exam (neuro): 5/5 motor strength present throughout Extrem General: Yes normal to inspection Psych Appearance: grossly normal Speech and movement: Normal speech and movement present Affect: normal affect Attitude: cooperative Medical Decision Making Medical Decision Making MDM Narrative: 66-year-old female who presents emergency department for evaluation of sudden onset of abdominal pain which woke her up from sleep at 01:00 hours. The pain is 10/10. Patient's abdominal exam revealed diminished bowel sounds, abdomen appears to be significantly distended with a ventral hernia which is tender to palpation, epigastric tenderness and left upper quadrant tenderness. I did order laboratory evaluation to include CBC, CMP, lipase, lactic acid, PT/INR, PTT, urinalysis, COVID-19. EKG will be obtained. I ordered a CT scan of the abdomen pelvis with IV contrast. Patient's pain was treated with morphine 4 mg IV and nausea was treated with Zofran 4 mg IV. Patient was also ordered to get normal saline x1 L. 0729: My interpretation patient's laboratory data is as follows: Elevated WBC 70115. The with an H&H of 8.7 and 25.4-this is chronic. Elevated BUN and creatinine of 51 and 2.97 compared to baseline of 31 and 1.80 on 04/25/2022. Elevated glucose [address] scan of the abdomen pelvis did reveal a 4 mm right distal ureteral stone which most likely explains her pain. Patient states that her pain did improved to 2/10 after receiving the IV morphine. The patient's elevated BUN creatinine above her baseline is concerning. I will discuss further management of this patient with the patient's urology, Dr. Lobato. Differential Diagnosis Differential diagnosis includes but is not limited to small-bowel obstruction, large-bowel obstruction, ischemic bowel, incarcerated hernia, kidney stone Lab Data [facility] Lab Attestation statement: I reviewed the patient's lab results. See [facility] 05/29/22 04:51 05/29/22 04:51 Labs: Lab Results 05/29/22 05/29/22 05/29/22 Range/Units 04:51 04:51 04:51 WBC 11.4 H (4.8-10.8) X10*3/uL RBC 2.87 L (4.20-5.50) X10*6/uL Hgb 8.7 L (12.0-16.0) g/dl Hct 25.4 L (37.0-47.0) % MCV 88.5 (80.0-98.0) fL MCH 30.3 (27.0-33.0) pg MCHC 34.3 (31.0-35.0) g/dl RDW 13.4 (11.0-16.0) % Plt Count TNP MPV 13.5 H (9.4-12.3) fL Immature Gran % (Auto) 0.4 (0.0-0.4) % Neut % (Auto) 70.6 (45-73) % Lymph % (Auto) 19.0 L (20-40) % Merrick % (Auto) 6.0 (2-11) % Eos % (Auto) 3.1 (0-4) % Baso % (Auto) 0.9 (0-2) % Lymph # (Auto) 2.2 (1.2-4.9) X10*3/uL Merrick # (Auto) 0.7 (0.1-1.2) X10*3/uL Eos # (Auto) 0.4 (0.0-0.4) X10*3/uL Baso # (Auto) 0.1 (0.0-0.2) X10*3/uL Abs Immat Gran (auto) 0.04 H (0.00-0.03) X10*3/uL Absolute Neuts (auto) 8.1 (2.0-8.3) x10*3/uL Absolute Nucleated RBC 0.000 (0.0-0.012) X10*3/uL Nucleated RBC % (auto) 0.0 (0.0-0.2) /100WBC PT 9.8 L (10.0-13.1) SEC INR 0.9 (0.9-1.1) APTT 22.5 L (26.0-36.4) SEC Sodium 140 (135-145) mmol/L Potassium 4.0 (3.3-5.1) mmol/L Chloride 115 H (96-108) mmol/L Carbon Dioxide 17 L (22-29) mmol/L Anion Gap 12 (12-20) BUN 51 H (9-16) mg/dL Creatinine 2.49 H (0.5-1.4) mg/dL Estim Creat Clear Calc 26.1 Estimated GFR 19 Random Glucose 208 H (60-115) mg/dL Lactic Acid (0.5-2.0) mmol/L Calcium 7.8 L D (8.4-10.2) mg/dL Total Bilirubin 0.1 (0.0-1.0) mg/dL AST 18 (5-31) U/L ALT 10 (0-31) U/L Alkaline Phosphatase 114 (39-117) U/L Total Protein 5.5 L (6.5-8.0) g/dL Albumin 2.4 L (3.5-5.0) g/dL Lipase 34 (8-78) U/L COVID-19 (BIRDIE) (Negative) COVID-19 Clin Com 05/29/22 05/29/22 Range/Units 04:51 04:51 WBC (4.8-10.8) X10*3/uL RBC (4.20-5.50) X10*6/uL Hgb (12.0-16.0) g/dl Hct (37.0-47.0) % MCV (80.0-98.0) fL MCH (27.0-33.0) pg MCHC (31.0-35.0) g/dl RDW (11.0-16.0) % Plt Count MPV (9.4-12.3) fL Immature Gran % (Auto) (0.0-0.4) % Neut % (Auto) (45-73) % Lymph % (Auto) (20-40) % Merrick % (Auto) (2-11) % Eos % (Auto) (0-4) % Baso % (Auto) (0-2) % Lymph # (Auto) (1.2-4.9) X10*3/uL Merrick # (Auto) (0.1-1.2) X10*3/uL Eos # (Auto) (0.0-0.4) X10*3/uL Baso # (Auto) (0.0-0.2) X10*3/uL Abs Immat Gran (auto) (0.00-0.03) X10*3/uL Absolute Neuts (auto) (2.0-8.3) x10*3/uL Absolute Nucleated RBC (0.0-0.012) X10*3/uL Nucleated RBC % (auto) (0.0-0.2) /100WBC PT (10.0-13.1) SEC INR (0.9-1.1) APTT (26.0-36.4) SEC Sodium (135-145) mmol/L Potassium (3.3-5.1) mmol/L Chloride (96-108) mmol/L Carbon Dioxide (22-29) mmol/L Anion Gap (12-20) BUN (9-16) mg/dL Creatinine (0.5-1.4) mg/dL Estim Creat Clear Calc Estimated GFR Random Glucose (60-115) mg/dL Lactic Acid 1.1 (0.5-2.0) mmol/L Calcium (8.4-10.2) mg/dL Total Bilirubin (0.0-1.0) mg/dL AST (5-31) U/L ALT (0-31) U/L Alkaline Phosphatase (39-117) U/L Total Protein (6.5-8.0) g/dL Albumin (3.5-5.0) g/dL Lipase (8-78) U/L COVID-19 (BIRDIE) Negative (Negative) COVID-19 Clin Com See Note Radiology Impression Discussion of test interpretation with radiology: I have reviewed the radiologist's reading. Radiologist Impression: CT abdomen pelvis wo IV con IMPRESSION: 1. 0.4 cm distal right ureteral calcification which is new from prior, likely a ureteral calculus. No hydroureteronephrosis. Additional nonobstructing right renal calculi. 2. Ventral abdominal wall hernia containing a portion of the transverse colon. No inflammatory change. No bowel obstruction. Fleischner guidelines were followed. Dictated By:Darron Mosquera MDSigned By:<Electronically signed by Darron Mosquera MD in [place]>05/29/22 0555 Medications Administered Discontinued Medications Generic Name Dose Route Start Last Admin Trade Name Freq PRN Reason Stop Dose Admin Sodium Chloride 1,000 mls @ 999 mls/hr 05/29/22 04:24 05/29/22 05:20 Ns IV 05/29/22 05:24 Not Given .Q1H1M STA Morphine Sulfate 4 mg 05/29/22 05:22 05/29/22 05:34 Morphine Sulfate 4 Mg/Ml Cartridge IM 05/29/22 05:23 4 mg ONCE STA Administration Protocol Ondansetron HCl 4 mg 05/29/22 05:22 05/29/22 05:35 Ondansetron Odt 4 Mg Tab.Rapdis TRANSLINGU 05/29/22 05:23 4 mg ONCE STA Administration 66-year-old female who presents emergency department for evaluation of sudden onset of abdominal pain that woke her up from sleep around 01:00 hours. Patient feels very distended, she has nausea is had 3 episodes of vomiting. Discharge Plan Discharge Patient Disposition: Admitted As Inpatient Prescriptions: No Action (DME) FreeStyle Lite Strips Strip MISCELLANEOUS QID (DME) blood-glucose meter [FreeStyle [place] Lite] Kit MISCELLANEOUS BID lacosamide [Vimpat] 200 mg tablet 200 mg PO BID (DME) lancets [FreeStyle Lancets] 28 gauge misc 1 gauge topical BID [employer] SoloStar U-300 Insulin 300 unit/mL (1.5 mL) insulin pen 30 unit subcut BID ondansetron 4 mg tablet,disintegrating 4 mg PO Q6H PRN (Reason: nausea and vomiting) Qty: 10 0RF acetaminophen 500 mg tablet 500 mg PO Q6H PRN (Reason: fever or pain) Qty: 14 0RF omeprazole 40 mg capsule,delayed release(DR/EC) 40 mg PO DAILY losartan 50 mg Tablet 50 mg PO BID quetiapine [Seroquel] 25 mg Tablet 25 mg PO BEDTIME PRN (Reason: Sleep) duloxetine 60 mg Capsule, Delayed Rel Sprinkle 60 mg PO DAILY Humalog KwikPen Insulin 200 unit/mL (3 mL) insulin pen 16 unit subcut TIDAC Qty: 6 0RF atorvastatin 80 mg tablet 1 tab PO DAILY oxybutynin chloride 10 mg tablet extended release 24hr 1 tab PO DAILY famotidine 20 mg tablet 1 tab PO BID amlodipine 10 mg tablet 1 tab PO DAILY albuterol sulfate [Proventil HFA] 90 mcg/actuation HFA aerosol inhaler 2 puff INHALATION Q4-6H PRN (Reason: Shortness Of Breath) trimethoprim 100 mg Tablet 100 mg PO DAILY cefuroxime axetil 500 mg tablet 500 mg PO BID 5 Days Qty: 10 0RF Child Chest Congestion-Cough 5-100 mg/5 mL liquid 10 ml PO Q4-8H PRN (Reason: cough) Qty: 118 0RF benzonatate 100 mg capsule 100 mg PO TID PRN (Reason: cough) Qty: 21 0RF (DME) blood pressure test kit-large Kit See Rx Instructions .ROUTE DAILY Qty: 1 Rx Instructions: As directed albuterol sulfate 2.5 mg /3 mL (0.083 %) solution for nebulization inhalation TID PRN (Reason: wheezing) fluticasone propionate [Flovent HFA] 110 mcg/actuation HFA aerosol inhaler 1 puff inhalation BID (DME) nebulizers [facility] [place] See Rx Instructions .ROUTE Rx Instructions: As directed furosemide [Lasix] 20 mg tablet 20 mg PO DAILY Qty: 3 0RF fluticasone furoate-vilanterol [Breo Ellipta] 100-25 mcg/dose blister with device 1 inh inhalation DAILY 30 Days Qty: 60 11RF
[2022-05-29 04:56] LABS: Eosinophils Absolute Auto 0.4 X10*3/uL (0.0-0.4); Eosinophils Percent Auto 3.1 % (0-4); Hemoglobin 8.7 g/dl (12.0-16.0); PLT ABN DIST 1; SCAN SMEAR FLAG 1
[2022-05-29 04:57] LABS: Basophils Absolute Auto 0.1 X10*3/uL (0.0-0.2); Basophils Percent Auto 0.9 % (0-2); Hematocrit 25.4 % (37.0-47.0); Imm Gran Abs Auto 0.04 X10*3/uL (0.00-0.03); Imm Gran Pct Auto 0.4 % (0.0-0.4); Lymphocytes Absolute Auto 2.2 X10*3/uL (1.2-4.9); Mean Corpuscular HGB Conc 34.3 g/dl (31.0-35.0); Mean Corpuscular Hemoglobin 30.3 pg (27.0-33.0); Mean Corpuscular Volume 88.5 fL (80.0-98.0); Mean Platelet Volume 13.5 fL (9.4-12.3); Monocytes Absolute Auto 0.7 X10*3/uL (0.1-1.2); Neutrophils Absolute Auto 8.1 x10*3/uL (2.0-8.3); Neutrophils Percent Auto 70.6 % (45-73); PLT CLUMP 1; Red Blood Count 2.87 X10*6/uL (4.20-5.50); Red Cell Distribution Width 13.4 % (11.0-16.0)
[2022-05-29 04:59] LABS: MANUAL DIFF FLAG NO; White Blood Count 11.4 X10*3/uL (4.8-10.8)
[2022-05-29 05:01] LABS: INTERNATIONAL NORM RATIO 0.9 (0.9-1.1); Prothrombin Time 9.8 SEC (10.0-13.1)
[2022-05-29 05:04] LABS: Partial Thromboplastin Time 22.5 SEC (26.0-36.4)
[2022-05-29 05:13] LABS: COVID-19 Test Negative (Negative); IDNOW Serial# BCCEAD1C
--- NOTE | 2022-05-29 05:15 | PC.NURSE ---
Attempted to get an IV established. I was able to get labs but was unable to get a line. Naa ALFORD and Mickie ALFORD attempted as well with no success. aware.
[2022-05-29 05:30] LABS: Lactic Acid 1.1 mmol/L (0.5-2.0)
[2022-05-29] MEDS: Morphine Sulfate 4 MG/ML CARTRIDGE IM (05:34)
[2022-05-29 05:35] LABS: Alanine Aminotransferase 10 U/L (0-31); Albumin Level 2.4 g/dL (3.5-5.0); Alkaline Phosphatase 114 U/L (39-117); Anion Gap 12 (12-20); Aspartate Amino Transferase 18 U/L (5-31); Bilirubin Total 0.1 mg/dL (0.0-1.0); Blood Urea Nitrogen 51 mg/dL (9-16); Calcium 7.8 mg/dL (8.4-10.2); Carbon Dioxide 17 mmol/L (22-29); Chloride 115 mmol/L (96-108); Creatinine Clr Calc Pharmacy 26.1; Estimated Glomerular Filt Rate 19; Glucose Random 208 mg/dL (60-115); Lipase 34 U/L (8-78); Sodium 140 mmol/L (135-145); Total Protein 5.5 g/dL (6.5-8.0)
[2022-05-29] MEDS: Ondansetron ODT 4 MG TAB.RAPDIS TRANSLINGU (05:35)
--- NOTE | 2022-05-29 06:21 | MHC.EDTECH ---
VSS, warm blanket given
[2022-05-29 07:40] LABS: Appearance Urine Hazy; Color Urine Yellow; Glucose Urine UA 250 mg/dL (Negative); Leukocyte Esterase Urine Trace (Negative); Nitrite Urine Negative (Negative); PH 6.5 (5.0-9.0); Specific Gravity - Urine 1.015 (1.005-1.025); UMIC TRIGGER UACC YES; Urine Blood Small (1+) (Negative); Urine Ketones Negative (Negative); Urine Protein 300 (3+) mg/dL (Neg-Trace)
[2022-05-29 07:45] LABS: Bacteria Urine 1+ (None Seen); UACC Culture Trigger YES; WBC Urine >50 /HPF (0-5)
--- NOTE | 2022-05-29 08:07 | P.HPHOSP_ITS ---
History of Present Illness Date of Service: 05/29/22 Chief Complaint: abdominal pain 66-year-old female presenting to the ER with complaints nausea, vomiting, diffuse abdominal and right flank pain. She reports that this abdominal pain has been ongoing for months related to renal calculi over the last 24 hours her symptoms became worse is with even burning with urination an episode of vomiting and chills. She denied fever, recent travel, sick contacts. She reports she does have a history of kidney stones with stent placement and removal. In the ER she is noted to have a mildly elevated white count of 11.4 without fever, stable blood pressure. History of chronic kidney disease with elevated creatinine of 2.49. Abdominal and pelvic CT showing 0.4 cm distal right ureteral calculi with no hydronephrosis an additional nonobstructive right renal calculi. The ER physician stated conversation with the urologist with plan for procedure tomorrow. In the ER she was given IV fluids, morphine and Zofran. She will be admitted for further management and treatment of acute pain secondary to renal calculi. Review of Systems Review of Systems: Appearing in no acute distress head is normocephalic atraumatic eyes pupils are PERRLA sclera is anicteric mouth throat mucous membranes are intact and moist neck is supple no lymphadenopathy, no JVD noted lung sounds are clear to auscultation heart regular rate rhythm, clear S1, S2 positive bowel sounds, abdomen is soft, right flank pain neuro patient is alert x3, no focal deficits [facility] Medical History (Updated 05/29/22 @ 15:04 by Erin Al NP) Acute hypoxemic respiratory failure due to COVID-19 Asthma Brain tumor (benign) CKD (chronic kidney disease) stage 3, GFR 30-59 ml/min COVID-19 Depression Diabetes Gastritis HLD (hyperlipidemia) Kidney stone Lower extremity edema Pneumonia Pulmonary nodule Seizure Family History Father CAD (coronary artery disease) Brother Lung cancer Sister Kidney stone Surgical History (Updated 05/29/22 @ 15:05 by Erin Al NP) H/O cystoscopy H/O hernia repair H/O lithotripsy H/O ureteroscopy History of cholecystectomy S/P ureteral stent placement Social History Household Members: Children Housing: Apartment Do you presently have visiting nurse or other home services: Yes ([employer] 4hrs/day everyday) Alcohol intake: never Patient Tobacco Use Status: Never used Tobacco Smoked in Last 30 Days: No e-Cigarette/Vaping Use: Never Used Use of substances other than those prescribed or required for medical reasons: No Have you been hit, kicked, punched, or otherwise hurt by someone within the past year? If so, by whom?: No Do you feel safe in your current relationship?: No Current Relationship Is there a partner from a previous relationship who is making you feel unsafe now?: No Are you made to feel afraid or neglected: No Advance Directives: Yes Advance Directives on File: Yes Advance Directives Date on File: 12/20/21 Do you have thoughts of harming others: None Do you have a plan to hurt others: No Plan Recently lost weight without trying: Yes How much weight loss: 24-33 pounds Eating poorly because of decreased appetite: Yes Nutrition screen score: 6 Nutrition Risks: No Nutritional Risk Patient : No : No Poor oral hygiene: No service: No Current occupational status: unemployed Meds Allergies Allergy/AdvReac Type Severity Reaction Status Date / Time egg Allergy Mild Abdominal Verified 01/20/22 14:07 Pain Active Medications: Current Medications Sodium Chloride (Ns) 1,000 mls @ 999 mls/hr IV .Q1H1M STA Stop: 05/29/22 08:49 Pharmacy Consult (Consult Rx Perform Med Rec) 1 each MISCELLANE ONCE PRN PRN Reason: Consult order Home Medications Medication Instructions Recorded Confirmed Last Taken Type blood sugar diagnostic (FreeStyle 03/28/20 10/13/21 Unknown History Lite Strips) blood-glucose meter (FreeStyle 03/28/20 10/13/21 Unknown History [place] Lite kit) lacosamide 200 mg tablet (Vimpat) 200 mg PO BID 03/28/20 12/20/21 10/01/21 History lancets 28 gauge (FreeStyle 03/28/20 10/13/21 Unknown History Lancets) insulin glargine U-300 conc 300 30 unit subcut BID 03/29/20 05/29/22 10/01/21 History unit/mL (1.5 mL) subcutaneous pen (Wolf Garcia U-300 Insulin) duloxetine 60 mg capsule,delayed 60 mg PO DAILY 10/02/21 12/20/21 10/01/21 History release sprinkle omeprazole 40 mg capsule,delayed 40 mg PO DAILY 10/02/21 05/29/22 10/01/21 History release blood pressure test kit-large #1 ea 10/12/21 10/13/21 Unknown History albuterol sulfate 90 mcg/actuation 2 puff inhalation Q4-6H PRN 12/20/21 05/29/22 Unknown History aerosol inhaler (Proventil HFA) Shortness Of Breath atorvastatin 80 mg tablet 1 tab PO DAILY 12/20/21 05/29/22 Unknown History famotidine 20 mg tablet 1 tab PO BID 12/20/21 12/20/21 Unknown History oxybutynin chloride 10 mg 1 tab PO DAILY 12/20/21 05/29/22 Unknown History tablet,extended release 24 hr trimethoprim 100 mg tablet 100 mg PO DAILY 12/20/21 12/20/21 Unknown History albuterol sulfate 2.5 mg/3 mL 2.5 mg inhalation TID PRN wheezing 01/20/22 05/29/22 Unknown History (0.083 %) solution for nebulization nebulizers 01/20/22 Unknown History amlodipine 10 mg tablet 10 mg PO DAILY 05/29/22 05/29/22 Unknown History aspirin 81 mg tablet,delayed 81 mg PO DAILY 05/29/22 05/29/22 Unknown History release losartan 100 mg tablet 100 mg PO QAM 05/29/22 05/29/22 Unknown History sucralfate 1 gram tablet 1 g PO QID 05/29/22 05/29/22 Unknown History Physical Exam Vital Signs and Narrative: Vital Signs: Last Vital Signs Temp 97.6 F 05/29/22 07:10 Pulse 71 05/29/22 07:10 Resp 23 H 05/29/22 07:10 BP 124/52 L 05/29/22 07:10 Pulse Ox 100 05/29/22 07:10 O2 Del Method Room Air 05/29/22 07:10 BMI result Body Mass Index 43.9 Appearing in no acute distress head is normocephalic atraumatic eyes pupils are PERRLA sclera is anicteric mouth throat mucous membranes are intact and moist neck is supple no lymphadenopathy, no JVD noted lung sounds are clear to auscultation heart regular rate rhythm, clear S1, S2 positive bowel sounds, abdomen is soft, nontender neuro patient is alert x3, no focal deficits no CVA tenderness Results Labs 05/29/22 04:51 05/29/22 04:51 Labs: Laboratory Results - last 24 hr 05/29/22 05/29/22 05/29/22 04:51 04:51 04:51 MCV 88.5 MCH 30.3 MCHC 34.3 RDW 13.4 Plt Count TNP MPV 13.5 H Immature Gran % (Auto) 0.4 Neut % (Auto) 70.6 Lymph % (Auto) 19.0 L [place] % (Auto) 6.0 Eos % (Auto) 3.1 Baso % (Auto) 0.9 Lymph # (Auto) 2.2 [place] # (Auto) 0.7 Eos # (Auto) 0.4 Baso # (Auto) 0.1 Abs Immat Gran (auto) 0.04 H Absolute Neuts (auto) 8.1 Absolute Nucleated RBC 0.000 Nucleated RBC % (auto) 0.0 PT 9.8 L INR 0.9 APTT 22.5 L Anion Gap 12 Estim Creat Clear Calc 26.1 Estimated GFR 19 Random Glucose 208 H Lactic Acid Calcium 7.8 L D Total Bilirubin 0.1 AST 18 ALT 10 Alkaline Phosphatase 114 Total Protein 5.5 L Albumin 2.4 L Lipase 34 Urine Color Urine Appearance Urine pH Ur Specific [place] Urine Protein Urine Glucose (UA) Urine Ketones Urine Blood Urine Nitrite Ur Leukocyte Esterase Urine RBC Urine WBC Ur Squamous Epith Cells Urine Bacteria Hyaline Casts COVID-19 (BIRDIE) COVID-19 Clin Com 05/29/22 05/29/22 05/29/22 04:51 04:51 07:23 MCV MCH MCHC RDW Plt Count MPV Immature Gran % (Auto) Neut % (Auto) Lymph % (Auto) [place] % (Auto) Eos % (Auto) Baso % (Auto) Lymph # (Auto) [place] # (Auto) Eos # (Auto) Baso # (Auto) Abs Immat Gran (auto) Absolute Neuts (auto) Absolute Nucleated RBC Nucleated RBC % (auto) PT INR APTT Anion Gap Estim Creat Clear Calc Estimated GFR Random Glucose Lactic Acid 1.1 Calcium Total Bilirubin AST ALT Alkaline Phosphatase Total Protein Albumin Lipase Urine Color Yellow Urine Appearance Hazy Urine pH 6.5 Ur Specific [place] 1.015 Urine Protein 300 (3+) H Urine Glucose (UA) 250 H Urine Ketones Negative Urine Blood Small (1+) H Urine Nitrite Negative Ur Leukocyte Esterase Trace H Urine RBC 3-5 H Urine WBC >50 H Ur Squamous Epith Cells 6-10 Urine Bacteria 1+ Hyaline Casts 3-5 COVID-19 (BIRDIE) Negative COVID-19 Clin Com See Note Imaging Radiologist's Impressions: Impressions Abdomen/Pelvis CT 05/29/22 05:35 IMPRESSION: 1. 0.4 cm distal right ureteral calcification which is new from prior, likely a ureteral calculus. No hydroureteronephrosis. Additional nonobstructing right renal calculi. 2. Ventral abdominal wall hernia containing a portion of the transverse colon. No inflammatory change. No bowel obstruction. Fleischner guidelines were followed. Assessment and Plan (1) Calculus of distal right ureter: Status: Acute Plan 66 year old women admitted with kidney stone with flank pain, nausea and vomiting Right renal calculi 0.4 cm distal right ureteral calcification No hydronephrosis noted Will start Rocephin Neurology consultation NPO after midnight for possible procedure Pain management, antiemetics follow cx Diabetes mellitus Sliding scale, ADA diet Asthma No exacerbation Continue home inhalers Hypertension Stable blood pressure Continue amlodipine Normocytic anemia No signs of active bleeding Check iron studies DVT prophylaxis heparin Full code patient required 2 inpatient midnights for treatment of right renal calculi likely necessitating urological procedure and requiring IV pain medication Time Spent With Patient Time: Total time managing care of this patient today ____ minutes. Quality Stroke Does the patient have a stroke diagnosis?: No VTE Prior VTE?: No VTE Risk Level:: Medical - moderate - high VTE Device Contraindication: Treatment Not Indicated VTE Drug Contraindication: N/A - Med Ordered
[2022-05-29] MEDS: 0.9 % Sodium Chloride 1,000 ML 999 ML IV (08:52)
--- NOTE | 2022-05-29 09:16 | PHA.MEDREC ---
Addendum entered by Urszula Marks [facility] 05/31/22 11:40: Contacted provider's office, clarified that cymbalta and famotidine were discontinues, nothing about Vimpat being discontinued Addendum entered by Shantelle Otero [facility] 05/29/22 18:00: patient's daughter brought in an outdate list from 10/12/22 that does not match dose of most recent claims. Will call pharmacy to confirm when medciations were picked up Original Note: Pharmacy Consult ? Medication Reconciliation Pharmacy has completed the medication reconciliation. Patient unsure of medications. Patient know toujeo and losartan however unsure of the rest. Attempted to contact daughter with no luck. Patient was on lacosamide but has not been filled since march per both claim history and PDMP. Will have a pharmacist follow-up with [facility] pharmacy tomorrow or monday if they are not open on monday due to the holiday. Shantelle Otero, PharmD
[2022-05-29] MEDS: Heparin Sodium,Porcine 5,000 UNIT/ML VIAL 5000 UNIT SUBCUT ×2 (09:50→20:52)
[2022-05-29 20:29] LABS: Glucose, Whole Blood 194 mg/dL (60-115)
[2022-05-29] MEDS: 0.9 % Sodium Chloride Flush 3 ML SYRINGE IVFLUSH (20:52)
[2022-05-29] MEDS: Acetaminophen 325 MG TABLET 650 MG PO (22:13)
[2022-05-30] VITALS (8 sets, daily range): BP systolic 135–181; BP diastolic 60–85; PULSE 68–87; RESP 16–20; TEMP 36.1–37.4; O2SAT 96–99
[2022-05-30 00:05] LABS: Glucose, Whole Blood 160 mg/dL (60-115)
[2022-05-30] MEDS: Insulin Lispro 100 UNIT/ML 3 ML VIAL SUBCUT ×2 (00:08→21:44)
[2022-05-30] MEDS: traMADoL HCL 50 MG TABLET PO (02:41)
--- NOTE | 2022-05-30 02:51 | PC.NURSE ---
pt c/o 10/23 cristel leg pain states gets this pain at home .medicated with 2 tylenol at 2215 with no relief notified ordered tramadol 50mg po x 1 dose given at 0240.will continue to monitor.
[2022-05-30 06:09] LABS: Glucose, Whole Blood 141 mg/dL (60-115)
[2022-05-30 06:43] LABS: Basophils Absolute Auto 0.1 X10*3/uL (0.0-0.2); Basophils Percent Auto 0.8 % (0-2); Eosinophils Absolute Auto 0.4 X10*3/uL (0.0-0.4); Eosinophils Percent Auto 4.3 % (0-4); Hematocrit 26.5 % (37.0-47.0); Hemoglobin 8.7 g/dl (12.0-16.0); Imm Gran Abs Auto 0.06 X10*3/uL (0.00-0.03); Imm Gran Pct Auto 0.7 % (0.0-0.4); Lymphocytes Absolute Auto 1.7 X10*3/uL (1.2-4.9); Lymphocytes Percent Auto 20.3 % (20-40); MANUAL DIFF FLAG SCAN; Mean Corpuscular HGB Conc 32.8 g/dl (31.0-35.0); Mean Corpuscular Hemoglobin 29.8 pg (27.0-33.0); Mean Corpuscular Volume 90.8 fL (80.0-98.0); Monocytes Absolute Auto 0.6 X10*3/uL (0.1-1.2); Monocytes Percent Auto 6.4 % (2-11); Neutrophils Absolute Auto 5.8 x10*3/uL (2.0-8.3); Neutrophils Percent Auto 67.5 % (45-73); PLT CLUMP 1; Red Blood Count 2.92 X10*6/uL (4.20-5.50); Red Cell Distribution Width 13.2 % (11.0-16.0); SCAN SMEAR FLAG 1
[2022-05-30 07:08] LABS: Iron 46 mcg/dL (30-160); Percent Iron Saturation 22 % (15-50); Total Iron Binding Capacity 210 mcg/dL (228-428); Unsaturated Iron Binding 164 ug/dL
[2022-05-30 07:17] LABS: SLIDE REVIEW VERIFIED; White Blood Count 8.6 X10*3/uL (4.8-10.8)
[2022-05-30 07:23] LABS: Anion Gap 9 (12-20); Blood Urea Nitrogen 43 mg/dL (9-16); Calcium 7.9 mg/dL (8.4-10.2); Carbon Dioxide 22 mmol/L (22-29); Chloride 114 mmol/L (96-108); Creatinine Clr Calc Pharmacy 29.8; Estimated Glomerular Filt Rate 23; Glucose Random 133 mg/dL (60-115); Potassium 3.9 mmol/L (3.3-5.1); Sodium 141 mmol/L (135-145)
[2022-05-30] MEDS: 0.9 % Sodium Chloride Flush 3 ML SYRINGE IVFLUSH ×3 (07:27→21:45)
--- NOTE | 2022-05-30 10:26 | HO.PM.IMPN ---
Subjective Subjective Date of Service: 05/30/22 Interval History: Follow up renal calculi still with abd pain currently NPO Physical Exam Vital Signs: Vital Signs: Last Vital Signs Temp 98.3 F 05/30/22 07:27 Pulse 68 05/30/22 07:27 Resp 18 05/30/22 07:27 BP 168/78 H 05/30/22 07:27 Pulse Ox 99 05/30/22 07:27 O2 Del Method Room Air 05/30/22 07:27 BMI result Body Mass Index 43.9 Appearing in no acute distress lung sounds are clear to auscultation heart regular rate rhythm, clear S1, S2 positive bowel sounds, abdomen is soft, nontender neuro patient is alert x3, no focal deficits Objective Data Active Medications Acetaminophen (Acetaminophen 325 Mg Tablet) 650 mg PO Q6H PRN PRN Reason: Pain, Mild (Pain Scale 1-3) Last Admin: 05/29/22 22:13 Dose: 650 mg Documented By: ESTEBAN Glucose (Glucose Gel 15 Gm Gel..Gram.) 15 gm PO Q15M PRN; Protocol PRN Reason: per Hypoglycemia Standing Ord. Glucose (Glucose Gel 15 Gm Gel..Gram.) 15 gm PO Q15M PRN; Protocol PRN Reason: per Hypoglycemia Standing Ord. Heparin Sodium (Porcine) (Heparin Sodium,Porcine 5,000 Unit/Ml Vial) 5,000 unit SUBCUT Q12H [facility] Last Admin: 05/30/22 09:05 Dose: Not Given Documented By: NEVAEH Non-Admin Reason: possible OR Dextrose (D10) 250 mls @ 750 mls/hr IV Q15M PRN; Protocol PRN Reason: per Hypoglycemia Standing Ord. Dextrose (D10) 250 mls @ 750 mls/hr IV Q15M PRN; Protocol PRN Reason: per Hypoglycemia Standing Ord. Insulin Human Lispro (Insulin Lispro 100 Unit/Ml 3 Ml Vial) 0 unit SUBCUT Q6H [facility]; Protocol Last Admin: 05/30/22 06:06 Dose: Not Given Documented By: ESTEBAN Non-Admin Reason: No Insulin Coverage Ondansetron HCl (Ondansetron Hcl 4 Mg/2 Ml Vial) 4 mg IVPUSH Q8H PRN PRN Reason: Nausea and Vomiting Pharmacy Consult (Consult Rx Perform Med Rec) 1 each MISCELLANE ONCE PRN PRN Reason: Consult order Sodium Chloride (0.9 % Sodium Chloride Flush 3 Ml Syringe) 3 ml IVFLUSH QSHIFT [facility] Last Admin: 05/30/22 07:27 Dose: 3 ml Documented By: NEVAEH Labs 05/30/22 05:47 05/30/22 05:47 Labs: Laboratory Results - last 24 hr 05/29/22 05/29/22 05/30/22 20:24 23:59 05:47 MCV 90.8 MCH 29.8 MCHC 32.8 RDW 13.2 Plt Count TNP MPV Not Reportable Immature Gran % (Auto) 0.7 H Neut % (Auto) 67.5 Lymph % (Auto) 20.3 [place] % (Auto) 6.4 Eos % (Auto) 4.3 H Baso % (Auto) 0.8 Lymph # (Auto) 1.7 [place] # (Auto) 0.6 Eos # (Auto) 0.4 Baso # (Auto) 0.1 Abs Immat Gran (auto) 0.06 H Absolute Neuts (auto) 5.8 Absolute Nucleated RBC 0.000 Nucleated RBC % (auto) 0.0 Smear Tech's Comments VERIFIED Anion Gap Estim Creat Clear Calc Estimated GFR POC Glucose 194 H 160 H Random Glucose Calcium Iron TIBC % Saturation Unsat Iron Binding 05/30/22 05/30/22 05/30/22 05:47 05:47 06:04 MCV MCH MCHC RDW Plt Count MPV Immature Gran % (Auto) Neut % (Auto) Lymph % (Auto) [place] % (Auto) Eos % (Auto) Baso % (Auto) Lymph # (Auto) [place] # (Auto) Eos # (Auto) Baso # (Auto) Abs Immat Gran (auto) Absolute Neuts (auto) Absolute Nucleated RBC Nucleated RBC % (auto) Smear Tech's Comments Anion Gap 9 L Estim Creat Clear Calc 29.8 Estimated GFR 23 POC Glucose 141 H Random Glucose 133 H Calcium 7.9 L Iron 46 TIBC 210 L % Saturation 22 Unsat Iron Binding 164 Microbiology Microbiology Results: Microbiology 05/29/22 Unknown Urine Culture - Final Urine clean catch - Urine berg top Assessment and Plan (1) Calculus of distal right ureter: Status: Acute Plan 66 year old women admitted with kidney stone with flank pain, nausea and vomiting Right renal calculi 0.4 cm distal right ureteral calcification No hydronephrosis noted Rocephin urology consultation NPO after midnight for possible procedure Pain management, antiemetics follow cx Diabetes mellitus Sliding scale, ADA diet Asthma No exacerbation Continue home inhalers Hypertension Stable blood pressure Continue amlodipine Normocytic anemia No signs of active bleeding Check iron studies DVT prophylaxis heparin Attending Dr. Ronquillo continued hospital stay for treatment of right renal calculi likely necessitating urological procedure and requiring IV pain medication Time Spent With Patient Time: Total time managing care of this patient today ____ minutes. Quality Stroke Does the patient have a stroke diagnosis?: No VTE Prior VTE?: No VTE Risk Level:: Medical - moderate - high VTE Device Contraindication: Treatment Not Indicated VTE Drug Contraindication: N/A - Med Ordered
[2022-05-30] MEDS: oxyCODONE HCl Immed Release 5 MG TABLET PO ×2 (10:39→23:02)
--- NOTE | 2022-05-30 10:40 | P.CNUR_ITS ---
History of Present Illness Consult details Consult date: 05/29/22 Narrative: Consulting complaint: Distal right ureteric stone with hydroureteronephrosis, MICHAEL on background CKD diabetic This is a 66-year-old Tuvaluan-speaking female Known stone former Presents with nausea, vomiting, diffuse abdominal right-sided flank pain. Had been ongoing for a number of months and she states that it may be related to a renal calculi. Laboratory studies WBC 11.4, creatinine 2.2 up from 1.4 baseline, calcium 7.9, prealbumin 3.6 Imaging shows for mm distal right ureteric calculus with minimal hydronephrosis. Additional small stones in kidney. Presentation discussed with daughter via Google translate. Persistent right flank pain. Recommend intervention with cystoscopy, right retrograde, right ureteroscopy, stone removal, possible stent They are amenable to this plan Review of Systems Constitutional: Constitutional: Reports as per HPI and Reports no additional constitutional complaints Cardiovascular: Cardiovascular: Reports as per HPI and Reports no additional cardiovascular complaints Respiratory: Respiratory: Reports as per HPI and Reports no additional respiratory complaints Gastrointestinal: Gastrointestinal: Reports as per HPI and Reports no additional gastrointestinal complaints Genitourinary: Genitourinary: Reports as per HPI Musculoskeletal: Musculoskeletal: Reports no additional musculoskeletal complaints and Reports as per HPI Neurologic: Reports system reviewed and no additional complaints, except as documented and Reports as per HPI PMF Past Medical History Medical History (Updated 05/30/22 @ 10:39 by Jeffrey Lobato MD) Acute hypoxemic respiratory failure due to COVID-19 Asthma Brain tumor (benign) CKD (chronic kidney disease) stage 3, GFR 30-59 ml/min COVID-19 Depression Diabetes Gastritis HLD (hyperlipidemia) Kidney stone Lower extremity edema Pneumonia Pulmonary nodule Seizure Family History Family History Father CAD (coronary artery disease) Brother Lung cancer Sister Kidney stone Surgical History Surgical History (Updated 05/29/22 @ 15:05 by Erin Al NP) H/O cystoscopy H/O hernia repair H/O lithotripsy H/O ureteroscopy History of cholecystectomy S/P ureteral stent placement Social History Social History Household Members: Children Housing: Apartment Do you presently have visiting nurse or other home services: Yes (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 If so, by whom?: No Do you feel safe in your current relationship?: No Current Relationship Is there a partner from a previous relationship who is making you feel unsafe now?: No Are you made to feel afraid or neglected: No Advance Directives: Yes Advance Directives on File: Yes Advance Directives Date on File: 12/20/21 Do you have thoughts of harming others: None Do you have a plan to hurt others: No Plan Recently lost weight without trying: Yes How much weight loss: 24-33 pounds Eating poorly because of decreased appetite: Yes Nutrition screen score: 6 Nutrition Risks: No Nutritional Risk Patient : No : No Poor oral hygiene: No service: No Current occupational status: unemployed Meds Allergies Allergy/AdvReac Type Severity Reaction Status Date / Time egg Allergy Mild Abdominal Verified 01/20/22 14:07 Pain Active Medications: Current Medications Acetaminophen (Acetaminophen 325 Mg Tablet) 650 mg PO Q6H PRN PRN Reason: Pain, Mild (Pain Scale 1-3) Last Admin: 05/29/22 22:13 Dose: 650 mg Glucose (Glucose Gel 15 Gm Gel..Gram.) 15 gm PO Q15M PRN; Protocol PRN Reason: per Hypoglycemia Standing Ord. Glucose (Glucose Gel 15 Gm Gel..Gram.) 15 gm PO Q15M PRN; Protocol PRN Reason: per Hypoglycemia Standing Ord. Heparin Sodium (Porcine) (Heparin Sodium,Porcine 5,000 Unit/Ml Vial) 5,000 unit SUBCUT Q12H KATHERINE Last Admin: 05/30/22 09:05 Dose: Not Given Dextrose (D10) 250 mls @ 750 mls/hr IV Q15M PRN; Protocol PRN Reason: per Hypoglycemia Standing Ord. Dextrose (D10) 250 mls @ 750 mls/hr IV Q15M PRN; Protocol PRN Reason: per Hypoglycemia Standing Ord. Levofloxacin (Levaquin) 500 mg in 100 mls @ 100 mls/hr IV PREOP ONE Stop: 05/30/22 11:33 Acetaminophen (Ofirmev) 1,000 mg in 100 mls @ 400 mls/hr IV PREOP ONE Stop: 05/30/22 10:48 Insulin Human Lispro (Insulin Lispro 100 Unit/Ml 3 Ml Vial) 0 unit SUBCUT Q6H [facility]; Protocol Last Admin: 05/30/22 06:06 Dose: Not Given Ondansetron HCl (Ondansetron Hcl 4 Mg/2 Ml Vial) 4 mg IVPUSH Q8H PRN PRN Reason: Nausea and Vomiting Oxycodone HCl (Oxycodone Hcl Immed Release 5 Mg Tablet) 5 mg PO Q4H PRN PRN Reason: Pain, Mild (Pain Scale 1-3) Pharmacy Consult (Consult Rx Perform Med Rec) 1 each MISCELLANE ONCE PRN PRN Reason: Consult order Sodium Chloride (0.9 % Sodium Chloride Flush 3 Ml Syringe) 3 ml IVFLUSH QSHIFT [facility] Last Admin: 05/30/22 07:27 Dose: 3 ml Home Medications Medication Instructions Recorded Confirmed Last Taken Type blood sugar diagnostic (FreeStyle 03/28/20 10/13/21 Unknown History Lite Strips) blood-glucose meter (FreeStyle 03/28/20 10/13/21 Unknown History [place] Lite kit) lacosamide 200 mg tablet (Vimpat) 200 mg PO BID 03/28/20 12/20/21 10/01/21 History lancets 28 gauge (FreeStyle 03/28/20 10/13/21 Unknown History Lancets) insulin glargine U-300 conc 300 30 unit subcut BID 03/29/20 05/29/22 10/01/21 History unit/mL (1.5 mL) subcutaneous pen (Wolf SoloStar U-300 Insulin) duloxetine 60 mg capsule,delayed 60 mg PO DAILY 10/02/21 12/20/21 10/01/21 History release sprinkle omeprazole 40 mg capsule,delayed 40 mg PO DAILY 10/02/21 05/29/22 10/01/21 History release blood pressure test kit-large #1 ea 10/12/21 10/13/21 Unknown History albuterol sulfate 90 mcg/actuation 2 puff inhalation Q4-6H PRN 12/20/21 05/29/22 Unknown History aerosol inhaler (Proventil HFA) Shortness Of Breath atorvastatin 80 mg tablet 1 tab PO DAILY 12/20/21 05/29/22 Unknown History famotidine 20 mg tablet 1 tab PO BID 12/20/21 12/20/21 Unknown History oxybutynin chloride 10 mg 1 tab PO DAILY 12/20/21 05/29/22 Unknown History tablet,extended release 24 hr albuterol sulfate 2.5 mg/3 mL 2.5 mg inhalation TID PRN wheezing 01/20/22 05/29/22 Unknown History (0.083 %) solution for nebulization nebulizers 01/20/22 Unknown History amlodipine 10 mg tablet 10 mg PO DAILY 05/29/22 05/29/22 Unknown History aspirin 81 mg tablet,delayed 81 mg PO DAILY 05/29/22 05/29/22 Unknown History release losartan 100 mg tablet 100 mg PO QAM 05/29/22 05/29/22 Unknown History sucralfate 1 gram tablet 1 g PO QID 05/29/22 05/29/22 Unknown History Physical Exam Vital Signs: Vital Signs: Last Vital Signs Temp 98.3 F 05/30/22 07:27 Pulse 68 05/30/22 07:27 Resp 18 05/30/22 07:27 BP 168/78 H 05/30/22 07:27 Pulse Ox 99 05/30/22 07:27 O2 Del Method Room Air 05/30/22 07:27 BMI result Body Mass Index 43.9 Const: General: cooperative, healthy appearing, comfortable and no acute distress Orientation/consciousness: patient oriented x3 HEENT: Face and sinus: Yes normal facial exam Mouth: moist mucous membranes Neck: Neck: Yes normal visual inspection, Yes full ROM and Yes trachea midline Chest: Chest palpation & inspection: normal inspection of the chest Resp: Effort & Inspection: normal respiratory effort, able to speak in complete sentences and no respiratory distress GI: Inspection: Yes normal to inspection Back/Spine/Pelvis: Cervical Spine: normal cervical lordosis Thoracic/Lumbar Spine: thoracic and lumbar spine normal to inspection Skin: General skin exam: no rashes or lesions noted Neuro: General: patient oriented x3, tone normal and moves all extremities Extrem: General: Yes normal to inspection and Yes capillary refill normal Results Labs 05/30/22 05:47 05/30/22 05:47 Labs: Abnormal lab results 05/29/22 05/29/22 05/30/22 Range/Units 20:24 23:59 05:47 RBC 2.92 L (4.20-5.50) X10*6/uL Hgb 8.7 L (12.0-16.0) g/dl Hct 26.5 L (37.0-47.0) % Immature Gran % (Auto) 0.7 H (0.0-0.4) % Eos % (Auto) 4.3 H (0-4) % Abs Immat Gran (auto) 0.06 H (0.00-0.03) X10*3/uL Chloride (96-108) mmol/L Anion Gap (12-20) BUN (9-16) mg/dL Creatinine (0.5-1.4) mg/dL POC Glucose 194 H 160 H (60-115) mg/dL Random Glucose (60-115) mg/dL Calcium (8.4-10.2) mg/dL TIBC (228-428) mcg/dL 05/30/22 05/30/22 05/30/22 Range/Units 05:47 05:47 06:04 RBC (4.20-5.50) X10*6/uL Hgb (12.0-16.0) g/dl Hct (37.0-47.0) % Immature Gran % (Auto) (0.0-0.4) % Eos % (Auto) (0-4) % Abs Immat Gran (auto) (0.00-0.03) X10*3/uL Chloride 114 H (96-108) mmol/L Anion Gap 9 L (12-20) BUN 43 H (9-16) mg/dL Creatinine 2.18 H (0.5-1.4) mg/dL POC Glucose 141 H (60-115) mg/dL Random Glucose 133 H (60-115) mg/dL Calcium 7.9 L (8.4-10.2) mg/dL TIBC 210 L (228-428) mcg/dL Short CBC 05/30/22 Range/Units 05:47 WBC 8.6 (4.8-10.8) X10*3/uL Hgb 8.7 L (12.0-16.0) g/dl Hct 26.5 L (37.0-47.0) % Plt Count TNP BMP 05/30/22 05:47 Sodium 141 Potassium 3.9 Chloride 114 H Carbon Dioxide 22 BUN 43 H Creatinine 2.18 H Calcium 7.9 L Urine 05/29/22 Range/Units 07:23 Urine Color Yellow Urine Appearance Hazy Urine pH 6.5 (5.0-9.0) Ur Specific [place] 1.015 (1.005-1.025) Urine Protein 300 (3+) H (Neg-Trace) mg/dL Urine Glucose (UA) 250 H (Negative) mg/dL All other labs normal. Assessment and Plan (1) Diabetes: Status: Acute (2) Calculus of distal right ureter: Status: Acute (3) Acute kidney injury: Status: Acute Plan Ureteroscopy We discussed the nature of the decision and reasonable alternatives for performing ureteroscopy. Options such as medical therapy were discussed. Interventions include chemical dissolution, ESWL, ureteroscopy with laser li thotripsy and stent placement, PCNL. The relative uncertainties and benefits related to each alternate procedure were adequately discussed. General surgical risks including, but not limited to - pain, bleeding, infection, myocardial infarction, pulmonary embolus, deep vein thrombosis and cerebrovascular accident which may result in further hospitalization were discussed. Full disclosure of the procedure as well as all major risks, benefits and complications were discussed including but not limited to damage to the urethra, bladder and kidney infection, damage to the ureter, stent migration or malposition, scarring to the renal pelvis, remnant stone fragments, subsequent stone passage with need for secondary procedures. The overall secondary procedure rate is approximately 10-15%. The overall clearance rate is approximately 90-95%. Success of the procedure in the short-term does not necessarily guarantee that long-term success will be maintained. Suitable follow up will need to be maintained. The patient showed understanding of discussion and wishes to proceed with - cystoscopy, retrograde, ureteroscopy, possible lithotripsy/stone basketing and stent on the right side Time Spent With Patient Time: Total time managing care of this patient today ____ minutes. Procedures Date of Service Date of Service: 05/30/22
[2022-05-30 12:00] LABS: Glucose, Whole Blood 123 mg/dL (60-115)
--- NOTE | 2022-05-30 12:37 | MHC.CLN ---
NUTRITION PATIENT CURRENTLY NPO FOR PROCEDURE. DISCUSSED WEIGHT LOSS WITH ASSISTANCE FROM NATURAL RESOURCE OFFICER. STATED THAT HAS PLANNED WEIGHT LOSS DUE TO EATING MORE SALADS AND SMALLER PORTIONS. REVIEW OF WEIGHT HX SHOWS 14% WEIGHT LOSS X 3 MONTHS. FOLLOW UP FOR DIET ADVANCEMENT.
--- NOTE | 2022-05-30 13:36 | P.CONAN_ITS ---
[facility], [facility] Active Problems Active Problems: All Active Problems (Updated 05/30/22 @ 10:39 by Jeffrey Lobato MD) CKD (chronic kidney disease) stage 3, GFR 30-59 ml/min (Acute) Diabetes (Acute) Calculus of distal right ureter (Acute) Renal colic on right side (Acute) Acute kidney injury (Acute) Abnormal soft tissue x-ray of chest (Acute) Lower extremity edema (Acute) Pneumonia (Acute) Asthma (Acute) Pulmonary nodule (Acute) Pneumonia (Acute) Kidney stone (Acute) Past Medical History Medical History (Updated 05/30/22 @ 10:39 by Jeffrey Lobato MD) Acute hypoxemic respiratory failure due to COVID-19 Asthma Brain tumor (benign) CKD (chronic kidney disease) stage 3, GFR 30-59 ml/min COVID-19 Depression Diabetes Gastritis HLD (hyperlipidemia) Kidney stone Lower extremity edema Pneumonia Pulmonary nodule Seizure Family History Family History Father CAD (coronary artery disease) Brother Lung cancer Sister Kidney stone Family history of problems with anesthesia: No Surgical History Surgical History (Updated 05/29/22 @ 15:05 by Erin Al NP) H/O cystoscopy H/O hernia repair H/O lithotripsy H/O ureteroscopy History of cholecystectomy S/P ureteral stent placement History of Problems with Anesthesia: No Social History Social History Household Members: Children Housing: Apartment Do you presently have visiting nurse or other home services: Yes ([employer]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 If so, by whom?: No Do you feel safe in your current relationship?: No Current Relationship Is there a partner from a previous relationship who is making you feel unsafe now?: No Are you made to feel afraid or neglected: No Advance Directives: Yes Advance Directives on File: Yes Advance Directives Date on File: 12/20/21 Do you have thoughts of harming others: None Do you have a plan to hurt others: No Plan Recently lost weight without trying: Yes How much weight loss: 24-33 pounds Eating poorly because of decreased appetite: Yes Nutrition screen score: 6 Nutrition Risks: No Nutritional Risk Patient : No : No Poor oral hygiene: No service: No Current occupational status: unemployed Meds Allergies Allergy/AdvReac Type Severity Reaction Status Date / Time egg Allergy Mild Abdominal Verified 01/20/22 14:07 Pain Active Medications: Current Medications Acetaminophen (Acetaminophen 325 Mg Tablet) 650 mg PO Q6H PRN PRN Reason: Pain, Mild (Pain Scale 1-3) Last Admin: 05/29/22 22:13 Dose: 650 mg Glucose (Glucose Gel 15 Gm Gel..Gram.) 15 gm PO Q15M PRN; Protocol PRN Reason: per Hypoglycemia Standing Ord. Glucose (Glucose Gel 15 Gm Gel..Gram.) 15 gm PO Q15M PRN; Protocol PRN Reason: per Hypoglycemia Standing Ord. Heparin Sodium (Porcine) (Heparin Sodium,Porcine 5,000 Unit/Ml Vial) 5,000 unit SUBCUT Q12H [facility] Last Admin: 05/30/22 09:05 Dose: Not Given Dextrose (D10) 250 mls @ 750 mls/hr IV Q15M PRN; Protocol PRN Reason: per Hypoglycemia Standing Ord. Dextrose (D10) 250 mls @ 750 mls/hr IV Q15M PRN; Protocol PRN Reason: per Hypoglycemia Standing Ord. Insulin Human Lispro (Insulin Lispro 100 Unit/Ml 3 Ml Vial) 0 unit SUBCUT Q6H [facility]; Protocol Last Admin: 05/30/22 11:57 Dose: Not Given Ondansetron HCl (Ondansetron Hcl 4 Mg/2 Ml Vial) 4 mg IVPUSH Q8H PRN PRN Reason: Nausea and Vomiting Oxycodone HCl (Oxycodone Hcl Immed Release 5 Mg Tablet) 5 mg PO Q4H PRN PRN Reason: Pain, Mild (Pain Scale 1-3) Last Admin: 05/30/22 10:39 Dose: 5 mg Pharmacy Consult (Consult Rx Perform Med Rec) 1 each MISCELLANE ONCE PRN PRN Reason: Consult order Sodium Chloride (0.9 % Sodium Chloride Flush 3 Ml Syringe) [facility] Last Admin: 05/30/22 07:27 Dose: 3 ml Home Medications Medication Instructions Recorded Confirmed Last Taken Type blood sugar diagnostic (FreeStyle 03/28/20 10/13/21 Unknown History Lite Strips) blood-glucose meter (FreeStyle 03/28/20 10/13/21 Unknown History [place] Lite kit) lacosamide 200 mg tablet (Vimpat) 200 mg PO BID 03/28/20 12/20/21 10/01/21 History lancets 28 gauge (FreeStyle 03/28/20 10/13/21 Unknown History Lancets) insulin glargine U-300 conc 300 30 unit subcut BID 03/29/20 05/29/22 10/01/21 History unit/mL (1.5 mL) subcutaneous pen ([email or web address] SoloStar U-300 Insulin) duloxetine 60 mg capsule,delayed 60 mg PO DAILY 10/02/21 12/20/21 10/01/21 History release sprinkle omeprazole 40 mg capsule,delayed 40 mg PO DAILY 10/02/21 05/29/22 10/01/21 History release blood pressure test kit-large #1 ea 10/12/21 10/13/21 Unknown History albuterol sulfate 90 mcg/actuation 2 puff inhalation Q4-6H PRN 12/20/21 05/29/22 Unknown History aerosol inhaler (Proventil HFA) Shortness Of Breath atorvastatin 80 mg tablet 1 tab PO DAILY 12/20/21 05/29/22 Unknown History famotidine 20 mg tablet 1 tab PO BID 12/20/21 12/20/21 Unknown History oxybutynin chloride 10 mg 1 tab PO DAILY 12/20/21 05/29/22 Unknown History tablet,extended release 24 hr albuterol sulfate 2.5 mg/3 mL 2.5 mg inhalation TID PRN wheezing 01/20/22 05/29/22 Unknown History (0.083 %) solution for nebulization nebulizers 01/20/22 Unknown History amlodipine 10 mg tablet 10 mg PO DAILY 05/29/22 05/29/22 Unknown History aspirin 81 mg tablet,delayed 81 mg PO DAILY 05/29/22 05/29/22 Unknown History release losartan 100 mg tablet 100 mg PO QAM 05/29/22 05/29/22 Unknown History sucralfate 1 gram tablet 1 g PO QID 05/29/22 05/29/22 Unknown History Exam Exam Date and Time: May 30, 2022 1336 Height,Weight and Vital Signs: j Height 5 ft 2 in Weight 108.862 kg Last Vital Signs Temp 98.3 F 05/30/22 07:27 Pulse 68 05/30/22 07:27 Resp 18 05/30/22 07:27 BP 168/78 H 05/30/22 07:27 Pulse Ox 99 05/30/22 07:27 O2 Del Method Room Air 05/30/22 07:27 Pertinent Lab Results Pertinent Lab Results: Laboratory Tests 05/29/22 05/29/22 05/29/22 04:51 04:51 04:51 WBC 11.4 H RBC 2.87 L Hgb 8.7 L Hct 25.4 L MCV 88.5 MCH 30.3 MCHC 34.3 RDW 13.4 Plt Count TNP MPV 13.5 H Immature Gran % (Auto) 0.4 Neut % (Auto) 70.6 Lymph % (Auto) 19.0 L Hale % (Auto) 6.0 Eos % (Auto) 3.1 Baso % (Auto) 0.9 Lymph # (Auto) 2.2 Hale # (Auto) 0.7 Eos # (Auto) 0.4 Baso # (Auto) 0.1 Abs Immat Gran (auto) 0.04 H Absolute Neuts (auto) 8.1 Absolute Nucleated RBC 0.000 Nucleated RBC % (auto) 0.0 Smear Tech's Comments PT 9.8 L INR 0.9 APTT 22.5 L Sodium 140 Potassium 4.0 Chloride 115 H Carbon Dioxide 17 L Anion Gap 12 BUN 51 H Creatinine 2.49 H Estim Creat Clear Calc 26.1 Estimated GFR 19 POC Glucose Random Glucose 208 H Lactic Acid Calcium 7.8 L D Iron TIBC % Saturation Unsat Iron Binding Total Bilirubin 0.1 AST 18 ALT 10 Alkaline Phosphatase 114 Total Protein 5.5 L Albumin 2.4 L Lipase 34 Urine Color Urine Appearance Urine pH Ur Specific [place] Urine Protein Urine Glucose (UA) Urine Ketones Urine Blood Urine Nitrite Ur Leukocyte Esterase Urine RBC Urine WBC Ur Squamous Epith Cells Urine Bacteria Hyaline Casts COVID-19 ([facility]) COVID-19 Clin Com 05/29/22 05/29/22 05/29/22 04:51 04:51 07:23 WBC RBC Hgb Hct MCV MCH MCHC RDW Plt Count MPV Immature Gran % (Auto) Neut % (Auto) Lymph % (Auto) Hale % (Auto) Eos % (Auto) Baso % (Auto) Lymph # (Auto) Hale # (Auto) Eos # (Auto) Baso # (Auto) Abs Immat Gran (auto) Absolute Neuts (auto) Absolute Nucleated RBC Nucleated RBC % (auto) Smear Tech's Comments PT INR APTT Sodium Potassium Chloride Carbon Dioxide Anion Gap BUN Creatinine Estim Creat Clear Calc Estimated GFR POC Glucose Random Glucose Lactic Acid 1.1 Calcium Iron TIBC % Saturation Unsat Iron Binding Total Bilirubin AST ALT Alkaline Phosphatase Total Protein Albumin Lipase Urine Color Yellow Urine Appearance Hazy Urine pH 6.5 Ur Specific [place] 1.015 Urine Protein 300 (3+) H Urine Glucose (UA) 250 H Urine Ketones Negative Urine Blood Small (1+) H Urine Nitrite Negative Ur Leukocyte Esterase Trace H Urine RBC 3-5 H Urine WBC >50 H Ur Squamous Epith Cells 6-10 Urine Bacteria 1+ Hyaline Casts 3-5 COVID-19 ([facility]IRDIE) Negative COVID-19 Clin Com See Note 05/29/22 05/29/22 05/30/22 20:24 23:59 05:47 WBC 8.6 RBC 2.92 L Hgb 8.7 L Hct 26.5 L MCV 90.8 MCH 29.8 MCHC 32.8 RDW 13.2 Plt Count TNP MPV Not Reportable Immature Gran % (Auto) 0.7 H Neut % (Auto) 67.5 Lymph % (Auto) 20.3 Hale % (Auto) 6.4 Eos % (Auto) 4.3 H Baso % (Auto) 0.8 Lymph # (Auto) 1.7 Hale # (Auto) 0.6 Eos # (Auto) 0.4 Baso # (Auto) 0.1 Abs Immat Gran (auto) 0.06 H Absolute Neuts (auto) 5.8 Absolute Nucleated RBC 0.000 Nucleated RBC % (auto) 0.0 Smear Tech's Comments VERIFIED PT INR APTT Sodium Potassium Chloride Carbon Dioxide Anion Gap BUN Creatinine Estim Creat Clear Calc Estimated GFR POC Glucose 194 H 160 H Random Glucose Lactic Acid Calcium Iron TIBC % Saturation Unsat Iron Binding Total Bilirubin AST ALT Alkaline Phosphatase Total Protein Albumin Lipase Urine Color Urine Appearance Urine pH Ur Specific [place] Urine Protein Urine Glucose (UA) Urine Ketones Urine Blood Urine Nitrite Ur Leukocyte Esterase Urine RBC Urine WBC Ur Squamous Epith Cells Urine Bacteria Hyaline Casts COVID-19 ([facility]IE) COVID-19 Clin Com 05/30/22 05/30/22 05/30/22 05:47 05:47 06:04 WBC RBC Hgb Hct MCV MCH MCHC RDW Plt Count MPV Immature Gran % (Auto) Neut % (Auto) Lymph % (Auto) Hale % (Auto) Eos % (Auto) Baso % (Auto) Lymph # (Auto) Hale # (Auto) Eos # (Auto) Baso # (Auto) Abs Immat Gran (auto) Absolute Neuts (auto) Absolute Nucleated RBC Nucleated RBC % (auto) Smear Tech's Comments PT INR APTT Sodium 141 Potassium 3.9 Chloride 114 H Carbon Dioxide 22 Anion Gap 9 L BUN 43 H Creatinine 2.18 H Estim Creat Clear Calc 29.8 Estimated GFR 23 POC Glucose 141 H Random Glucose 133 H Lactic Acid Calcium 7.9 L Iron 46 TIBC 210 L % Saturation 22 Unsat Iron Binding 164 Total Bilirubin AST ALT Alkaline Phosphatase Total Protein Albumin Lipase Urine Color Urine Appearance Urine pH Ur Specific [place] Urine Protein Urine Glucose (UA) Urine Ketones Urine Blood Urine Nitrite Ur Leukocyte Esterase Urine RBC Urine WBC Ur Squamous Epith Cells Urine Bacteria Hyaline Casts COVID-19 ([facility]IRDIE) COVID-19 [place] Com 05/30/22 11:54 WBC RBC Hgb Hct MCV MCH MCHC RDW Plt Count MPV Immature Gran % (Auto) Neut % (Auto) Lymph % (Auto) Hale % (Auto) Eos % (Auto) Baso % (Auto) Lymph # (Auto) Hale # (Auto) Eos # (Auto) Baso # (Auto) Abs Immat Gran (auto) Absolute Neuts (auto) Absolute Nucleated RBC Nucleated RBC % (auto) Smear Tech's Comments PT INR APTT Sodium Potassium Chloride Carbon Dioxide Anion Gap BUN Creatinine Estim Creat Clear Calc Estimated GFR POC Glucose 123 H Random Glucose Lactic Acid Calcium Iron TIBC % Saturation Unsat Iron Binding Total Bilirubin AST ALT Alkaline Phosphatase Total Protein Albumin Lipase Urine Color Urine Appearance Urine pH Ur Specific [place] Urine Protein Urine Glucose (UA) Urine Ketones Urine Blood Urine Nitrite Ur Leukocyte Esterase Urine RBC Urine WBC Ur Squamous Epith Cells Urine Bacteria Hyaline Casts COVID-19 ([facility]) COVID-19 Clin Com Airway Mallampati Class: III TM Dist: >3cm Assessment and Plan Assessment Anesthesia Assessment: Anesthesia Plan Discussed and Chart Reviewed Final Anesthetic Review Family History of Problems with Anesthesia: No History of Problems with Anesthesia: No NPO: Yes ASA Class: III and Emergency Final Preanesthetic Review: No Changes in Pt Med Stat, Meds/Allgs Chart Reviewed, Consent Obtained/Reviewed and Anes Risks/Benef Reviewed Patient Risk: Intermediate Anesthetic Plan Anesthetic Plan: GA Disposition: Standard PACU
--- NOTE | 2022-05-30 14:07 | PC.NURSE ---
1345: Pt transported down to OR via bed and OR staff. [employer] Source Operations Specialist called to meet Staff and pt at OR desk
--- NOTE | 2022-05-30 14:45 | MHC.SHP ---
Pre-Procedural Eval Section A Date of Service: 05/30/22 The patient is an INPATIENT: Yes Changes since office visit: No Cold of Flu in the past 2 weeks, No New Medical Problems, No Changes in Medication and No Patient answered all questions The History & Physical has been completed within 30 days and I have reviewed it.: Yes Section B Chief Complaint: Renal Calculi Allergies: Allergies Allergy/AdvReac Type Severity Reaction Status Date / Time egg Allergy Mild Abdominal Verified 01/20/22 14:07 Pain Review of Systems Sugical H&P ROS: Negative: Constitution, Cardiovascular, Respiratory, Neurological, Psychiatric, Hem-Onc, Allergic/Immunologic, Gastrointestinal, Genitourinary, Musculoskeletal, Integumentary, Endocrine and Eyes/Ears/Nose/Throat Exam Surgical H&P Exam: Normal: HEENT, Normal: Heart, Normal: Lungs, Normal: Extremities, Normal: Abdomen, Normal: Skin and Normal: Neurological Plan Diagnosis/Plan: Unchanged (Cystoscopy, right retrograde, right ureteroscopy laser lithotripsy stent placement) I have reviewed the history and physical and performed a pertinent physical examination on my patient. No changes have occurred unless specified. Time Spent With Patient Time: Total time managing care of this patient today ____ minutes.
--- NOTE | 2022-05-30 14:46 | W.PM.OPN ---
Operative Note Operative Note Date of Service: 05/30/22 Narrative: PreOperative Diagnosis: Right distal ureteric stone with hydroureteronephrosis Post Operative Diagnosis: See above Procedure: - cystoscopy, right retrograde - right dilatation of ureteric orifice under fluoroscopy - right ureteroscopy, stone basketing - right stent placement Surgeon: Dr Jeffrey Lobato Anesthesia: General Indications for procedure: MICHAEL on CKD with incomplete bladder emptying background diabetes, distal ureteric stone on CT Procedure: After informed consent was verified the patient was brought to the operating room and placed in a supine position. Anesthesia was administered per protocol. The patient was placed in a modified dorsal lithotomy position and prepped and draped in a sterile fashion. Safety pause time-out and side of surgery were confirmed. Images were available for review. Antibiotic administration confirmed. A 22 Latvian cystoscope was inserted per urethra. The urethra was without aabnormality. The bladder was normal in its entirety. Both ureteric orifices were seen in normal position - has chronic cystitis in bladder. The right ureteric orifice was cannulated and a retrograde examination was performed. Hydroureteronephrosis . A Sensor guidewire was placed up to the level of the renal pelvis under fluoroscopy. The rigid cystoscope was removed. A Browning dilator was placed over the Sensor guidewire and used to dilate the ureteric orifice under fluoroscopy. The dilator was removed. The semi rigid ureteral scope was placed alongside the Sensor guidewire. Stone fragments encountered at junction between the mid and distal ureter. Stone fragments were removed from the ureter using a flat wire basket basket. Once the fragments were removed a decision was made to place a ureteric stent. Based on the height of the patient a 6 Fr x 24 stent was used. The string was removed from the stent prior to placement A 6 Latvian by 24 cm double-J stent was placed into the renal pelvis and bladder under a combination of fluoroscopy and direct visualization. The symphisis pubis was used as a radiographic marker to release the stent and good coil was seen within the bladder confirming position The bladder was emptied. The patient tolerated the procedure well and was extubated in the operating room. They were transferred in stable condition to the recovery area. Pathology: Stone had crushed Drains: Double J stent as described above
[2022-05-30] MEDS: Phenazopyridine HCL 100 MG TABLET PO (15:13)
[2022-05-30] MEDS: Acetaminophen 325 MG TABLET 650 MG PO (16:05)
[2022-05-30 16:40] LABS: Glucose, Whole Blood 136 mg/dL (60-115)
[2022-05-30 20:20] LABS: Glucose, Whole Blood 287 mg/dL (60-115)
[2022-05-30] MEDS: Heparin Sodium,Porcine 5,000 UNIT/ML VIAL 5000 UNIT SUBCUT (21:44)
[2022-05-30] MEDS: levoFLOXacin 500 MG TABLET PO (21:44)
[2022-05-31] VITALS (8 sets, daily range): BP systolic 130–198; BP diastolic 70–88; PULSE 75–90; RESP 16–21; TEMP 36.3–36.9; O2SAT 95–98
[2022-05-31 00:03] LABS: Glucose, Whole Blood 214 mg/dL (60-115)
[2022-05-31] MEDS: amLODIPine Besylate 10 MG TABLET PO ×2 (01:01→07:58)
[2022-05-31] MEDS: ondansetron HCL 4 MG/2 ML VIAL IVPUSH ×2 (01:41→10:25)
[2022-05-31] MEDS: traMADoL HCL 50 MG TABLET PO (01:44)
[2022-05-31] MEDS: Omeprazole 40 MG CAPSULE.DR PO (06:07)
[2022-05-31 06:16] LABS: Glucose, Whole Blood 187 mg/dL (60-115)
[2022-05-31 07:34] LABS: Glucose, Whole Blood 192 mg/dL (60-115)
[2022-05-31] MEDS: Insulin Lispro 100 UNIT/ML 3 ML VIAL SUBCUT ×2 (07:56→16:35)
[2022-05-31] MEDS: Atorvastatin Calcium 80 MG TABLET PO (07:57)
[2022-05-31] MEDS: Insulin Glargine,Hum.rec.anlog 100 UNIT/ML 10 ML VIAL 30 UNIT SUBCUT ×2 (07:57→20:46)
[2022-05-31] MEDS: Heparin Sodium,Porcine 5,000 UNIT/ML VIAL 5000 UNIT SUBCUT ×2 (07:58→20:43)
[2022-05-31] MEDS: oxyBUTYnin chloride ER 5 MG TAB.ER.24 10 MG PO (07:58)
[2022-05-31] MEDS: 0.9 % Sodium Chloride Flush 3 ML SYRINGE IVFLUSH ×2 (07:58→15:13)
[2022-05-31 08:58] LABS: Anion Gap 12 (12-20); Blood Urea Nitrogen 44 mg/dL (9-16); Calcium 8.6 mg/dL (8.4-10.2); Carbon Dioxide 21 mmol/L (22-29); Chloride 111 mmol/L (96-108); Creatinine Clr Calc Pharmacy 30.7; Estimated Glomerular Filt Rate 23; Glucose Random 179 mg/dL (60-115); Potassium 4.5 mmol/L (3.3-5.1); Sodium 139 mmol/L (135-145)
[2022-05-31] MEDS: oxyCODONE HCl Immed Release 5 MG TABLET PO (11:29)
[2022-05-31 11:30] LABS: Glucose, Whole Blood 138 mg/dL (60-115)
--- NOTE | 2022-05-31 11:55 | P.PNIM_ITS ---
Subjective Subjective Date of Service: 05/31/22 Interval History: Follow up renal calculi still with abd pain currently NPO Physical Exam Vital Signs: Vital Signs: Last Vital Signs Temp 98.2 F 05/31/22 11:38 Pulse 76 05/31/22 11:38 Resp 20 05/31/22 11:38 BP 130/76 05/31/22 11:38 Pulse Ox 96 05/31/22 11:38 O2 Del Method Room Air 05/31/22 11:38 O2 Flow Rate 96 05/31/22 11:38 BMI result Body Mass Index 43.9 Appearing in no acute distress head is normocephalic atraumatic eyes pupils are PERRLA sclera is anicteric mouth throat mucous membranes are intact and moist neck is supple no lymphadenopathy, no JVD noted lung sounds are clear to auscultation heart regular rate rhythm, clear S1, S2 positive bowel sounds, abdomen is soft, nontender neuro patient is alert x3, no focal deficits Objective Data Active Medications Acetaminophen (Acetaminophen 325 Mg Tablet) 650 mg PO Q6H PRN PRN Reason: Pain, Mild (Pain Scale 1-3) Last Admin: 05/29/22 22:13 Dose: 650 mg Documented By: ESTEBAN Albuterol Sulfate (Albuterol Sulfate (0.083%) 2.5 Mg/3 Ml Vial.Neb) 2.5 mg INHALE TID PRN PRN Reason: wheezing Albuterol Sulfate (Albuterol Sulfate 90 Mcg 8 Gm Inhaler) 2 puff INHALE Q4H PRN PRN Reason: Shortness Of Breath Amlodipine Besylate (Amlodipine Besylate 10 Mg Tablet) 10 mg PO DAILY [facility]; Protocol Last Admin: 05/31/22 07:58 Dose: 10 mg Documented By: SAVAGE Atorvastatin Calcium (Atorvastatin Calcium 80 Mg Tablet) 80 mg PO DAILY [facility] Last Admin: 05/31/22 07:57 Dose: 80 mg Documented By: SAVAGE Fentanyl (Fentanyl Citrate/Pf 100 Mcg/2 Ml Vial) 50 mcg IVPUSH Q5M PRN; Prot ocol PRN Reason: Pain, Severe (Pain Scale 7-10) Glucose (Glucose Gel 15 Gm Gel..Gram.) 15 gm PO Q15M PRN; Protocol PRN Reason: per Hypoglycemia Standing Ord. Glucose (Glucose Gel 15 Gm Gel..Gram.) 15 gm PO Q15M PRN; Protocol PRN Reason: per Hypoglycemia Standing Ord. Glucose (Glucose Gel 15 Gm Gel..Gram.) 15 gm PO Q15M PRN; Protocol PRN Reason: per Hypoglycemia Standing Ord. Heparin Sodium (Porcine) (Heparin Sodium,Porcine 5,000 Unit/Ml Vial) 5,000 unit SUBCUT Q12H [facility] Last Admin: 05/31/22 07:58 Dose: 5,000 unit Documented By: SAVAGE Dextrose (D10) 250 mls @ 750 mls/hr IV Q15M PRN; Protocol PRN Reason: per Hypoglycemia Standing Ord. Dextrose (D10) 250 mls @ 750 mls/hr IV Q15M PRN; Protocol PRN Reason: per Hypoglycemia Standing Ord. Dextrose (D10) 250 mls @ 750 mls/hr IV Q15M PRN; Protocol PRN Reason: per Hypoglycemia Standing Ord. Insulin Glargine (Insulin Glargine,Hum.Rec.Anlog 100 Unit/Ml 10 Ml Vial) 30 unit SUBCUT BID [facility] Last Admin: 05/31/22 07:57 Dose: 30 unit Documented By: SAVAGE Insulin Human Lispro (Insulin Lispro 100 Unit/Ml 3 Ml Vial) 0 unit SUBCUT Q IDACHS [facility]; Protocol Last Admin: 05/31/22 07:56 Dose: 2 unit Documented By: SAVAGE Insulin Human Lispro (Insulin Lispro 100 Unit/Ml 3 Ml Vial) 16 unit SUBCUT TIDAC [facility] Last Admin: 05/31/22 07:57 Dose: Not Given Documented By: SAVAGE Non-Admin Reason: No Insulin Coverage Omeprazole (Omeprazole 40 Mg Otis.) 40 mg PO DAILY@0630 [facility] Last Admin: 05/31/22 06:07 Dose: 40 mg Documented By: SHAUN Ondansetron HCl (Ondansetron Hcl 4 Mg/2 Ml Vial) 4 mg IVPUSH Q8H PRN PRN Reason: Nausea and Vomiting Last Admin: 05/31/22 10:25 Dose: 4 mg Documented By: SAVAGE Ondansetron HCl (Ondansetron Hcl 4 Mg/2 Ml Vial) 4 mg IVPUSH ONCE PRN PRN Reason: Nausea and Vomiting Oxybutynin Chloride (Oxybutynin Chloride Er 5 Mg Tab.Er.24) 10 mg PO DAILY [facility] Last Admin: 05/31/22 07:58 Dose: 10 mg Documented By: SAVAGE Oxycodone HCl (Oxycodone Hcl Immed Release 5 Mg Tablet) 5 mg PO Q4H PRN PRN Reason: Pain, Mild (Pain Scale 1-3) Last Admin: 05/31/22 11:29 Dose: 5 mg Documented By: SAVAGE Oxycodone HCl (Oxycodone Hcl Immed Release 5 Mg Tablet) 5 mg PO ONCE PRN PRN Reason: Pain, Severe (Pain Scale 7-10) Pharmacy Consult (Consult Rx Perform Med Rec) 1 each MISCELLANE ONCE PRN PRN Reason: Consult order Sodium Chloride (0.9 % Sodium Chloride Flush 3 Ml Syringe) [facility] Last Admin: 05/31/22 07:58 Dose: 3 ml Documented By: SAVAGE Tramadol HCl (Tramadol Hcl 50 Mg Tablet) 50 mg PO Q6H PRN PRN Reason: Pain, Moderate (Pain Scale 4-6 Last Admin: 05/31/22 01:44 Dose: 50 mg Documented By: LYSZ Labs 05/30/22 05:47 05/31/22 08:25 Labs: Laboratory Results - last 24 hr 05/30/22 05/30/22 05/30/22 11:54 16:31 20:14 Anion Gap Estim Creat Clear Calc Estimated GFR POC Glucose 123 H 136 H 287 H Random Glucose Calcium 05/30/22 05/31/22 05/31/22 23:58 06:05 07:22 Anion Gap Estim Creat Clear Calc Estimated GFR POC Glucose 214 H 187 H 192 H Random Glucose Calcium 05/31/22 05/31/22 08:25 11:13 Anion Gap 12 Estim Creat Clear Calc 30.7 Estimated GFR 23 POC Glucose 138 H Random Glucose 179 H Calcium 8.6 D Microbiology Microbiology Results: Microbiology 05/29/22 Unknown Urine Culture - Final Urine clean catch - Urine berg top Assessment and Plan (1) Calculus of distal right ureter: Status: Acute Plan 66 year old women admitted with kidney stone with flank pain, nausea and vomiting Right renal calculi No hydronephrosis noted continue Rocephin urology consultation 0.4 cm distal right ureteral calcification, Status post cystoscopy (05/30/22), right dilatation of ureteric orifice, right ureteroscopy and right stent placement still with abd pain, repeat abd CT pending Pain management, antiemetics urine cx mixed bacteria MICHAEL on CKD 3 trending down follow bmp Diabetes mellitus Sliding scale, ADA diet Asthma No exacerbation Continue home inhalers Hypertension Stable blood pressure Continue amlodipine Normocytic anemia No signs of active bleeding normal iron studies DVT prophylaxis heparin Attending Dr. Araya continued hospital stay for treatment of right renal calculi likely necessitating urological procedure and requiring IV pain medication Time Spent With Patient Time: Total time managing care of this patient today ____ minutes. Quality Stroke Does the patient have a stroke diagnosis?: No VTE Prior VTE?: No VTE Risk Level:: Medical - moderate - high VTE Device Contraindication: Treatment Not Indicated VTE Drug Contraindication: N/A - Med Ordered
--- NOTE | 2022-05-31 14:29 | MHC.CM.PN ---
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
[2022-05-31] MEDS: Morphine Sulfate 2 MG/ML CARTRIDGE IVPUSH (15:13)
--- NOTE | 2022-05-31 15:24 | P.CDIM_ITS ---
PROVIDER RESPONSE TEXT: To clarify, the appropriate diagnosis supported by the clinical indicators: Severe or Morbid Obesity QUERY TEXT: PHYSICIAN'S DOCUMENTATION REQUEST Date of Query: 05/31/2022 12:47 PM EDT Patient Name: Lori Land Admit Date: 05/29/2022 Dear Erin Al, A review of the medical record indicates additional documentation may be needed. Please review below and update the documentation accordingly. Clinical Indicators: BMI: 43.9 5ft 2in 108.862kg Nutrition note 05/30 - Discussed weight loss with patient. If possible, please provide an associated diagnosis related to the abnormal BMI, such as: Obesity Severe or Morbid Obesity Other Other (explain) Clinically unable to determine (explain) Thank you, Benita Wilkins, CCS, CDIS Use of terms such as suspected, likely, concern for, or probable (associated with a specific diagnosi s that is being evaluated, monitored, or treated as if it exists) are acceptable and can be coded in the inpatient se tting, when documented at the time of discharge. Please use your independent medical judgment in providing your response. THIS QUERY IS PART OF THE PERMANENT MEDICAL RECORD
[2022-05-31 16:11] LABS: Glucose, Whole Blood 158 mg/dL (60-115)
[2022-05-31] MEDS: hydrALAZINE HCl 10 MG TABLET PO ×2 (17:51→20:43)
[2022-05-31 20:37] LABS: Glucose, Whole Blood 137 mg/dL (60-115)
[2022-06-01 02:41] VITALS: BP 158/72; PULSE 70; RESP 16; TEMP 36.7; O2SAT 98
[2022-06-01] MEDS: Omeprazole 40 MG CAPSULE.DR PO (06:13)
[2022-06-01 06:46] LABS: Anion Gap 9 (12-20); Blood Urea Nitrogen 38 mg/dL (9-16); Calcium 8.3 mg/dL (8.4-10.2); Carbon Dioxide 24 mmol/L (22-29); Chloride 112 mmol/L (96-108); Estimated Glomerular Filt Rate 25; Glucose Random 77 mg/dL (60-115); Potassium 3.8 mmol/L (3.3-5.1); Sodium 141 mmol/L (135-145)
[2022-06-01 07:12] VITALS: BP 184/74; PULSE 66; RESP 20; TEMP 36.5; O2SAT 98
[2022-06-01 07:29] LABS: Glucose, Whole Blood 79 mg/dL (60-115)
[2022-06-01] MEDS: hydrALAZINE HCl 10 MG TABLET PO ×2 (08:39→14:47)
[2022-06-01] MEDS: amLODIPine Besylate 10 MG TABLET PO (08:39)
[2022-06-01] MEDS: oxyBUTYnin chloride ER 5 MG TAB.ER.24 10 MG PO (08:40)
[2022-06-01] MEDS: Atorvastatin Calcium 80 MG TABLET PO (08:40)
[2022-06-01] MEDS: Insulin Glargine,Hum.rec.anlog 100 UNIT/ML 10 ML VIAL 30 UNIT SUBCUT ×2 (08:40→21:39)
[2022-06-01] MEDS: 0.9 % Sodium Chloride Flush 3 ML SYRINGE IVFLUSH ×2 (08:41→16:26)
[2022-06-01] MEDS: Heparin Sodium,Porcine 5,000 UNIT/ML VIAL 5000 UNIT SUBCUT ×2 (08:41→21:37)
--- NOTE | 2022-06-01 10:47 | MHC.CLN ---
F/U DIET=DIABETIC 1800 KCAL. APPEARS TO BE EATING WELL. NO ADDITIONAL NUTRITION INTERVENTIONS AT THIS TIME.
[2022-06-01 11:16] LABS: Glucose, Whole Blood 82 mg/dL (60-115)
[2022-06-01 12:00] VITALS: BP 176/75; PULSE 67; RESP 20; TEMP 36.5; O2SAT 96
--- NOTE | 2022-06-01 12:37 | P.DS_ITS ---
DS: Providers Provider Date of Service: 06/01/22 Date of admission: 05/29/22 08:28 Date of discharge: 06/01/22 Primary care physician: Lucrecia Teixeira MD Admitting clinician: Erin Al Attending physician on admission: Seth Ronquillo Consults: 05/29/22 07:40 Consult to Urology Stat Consulting Provider: Jeffrey Lobato Reason for consultation: Right distal ureteral stone, acute kidney injury 05/29/22 08:27 Consult to Urology Routine Consulting Provider: Jeffrey Lobato Reason for consultation: renal calculi Has provider been notified: Yes Attending physician on discharge: Kal Araya Discharging clinician: Erika White DS: Diagnosis Discharge Diagnosis (1) Calculus of distal right ureter: Status: Acute DS: Summary Hospital Course Hospital Course: HPI on admission by Erin Al WIRE INSULATOR: Chief Complaint: abdominal pain 66-year-old female presenting to the ER with complaints nausea, vomiting, diffuse abdominal and right flank pain.? She reports that this abdominal pain has been ongoing for months related to renal calculi over the last 24 hours her symptoms became worse is with even burning with urination an episode of vomiting and chills.? She denied fever, recent travel, sick contacts.? She reports she does have a history of kidney stones with stent placement and removal.? In the ER she is noted to have a mildly elevated white count of 11.4 without fever, stable blood pressure.? History of chronic kidney disease with elevated creatinine of 2.49.? Abdominal and pelvic CT showing 0.4 cm distal right ureteral calculi with no hydronephrosis an additional nonobstructive right renal calculi.? The ER physician stated conversation with the urologist with plan for procedure tomorrow.? In the ER she was given IV fluids, morphine and Zofran.? She will be admitted for further management and treatment of acute pain secondary to renal calculi. Hospital course: Patient admitted for management of of right renal calculi with MICHAEL but no hydronephrosis. Empirically treated with ceftriaxone given positive UA, but UC negative for acute UTI so this was discontinued. patient was evaluated by Urology and underwent right-sided retrograde cystoscopy with dilatation of ureteric orifice under fluoroscopy, right your os could be with stone baske ting, and right stent placement. Following removal of stone, renal function has gradually been returning to baseline with creatinine on discharge of 2.03 with background of chronic kidney disease. She was experiencing significant right-sided abdominal pain and CT of the abdomen/pelvis was repeated demonstrating appropriate placement of the right internal ureteral stent without any evidence of the distal right ureteral calculi previously seen. There is also noted to be left renal calculi without caliectasis or obstruction. Upon re-evaluation this morning, the patient is comfortable and denies any ongoing symptoms including abdominal pain, nausea, vomiting, flank pain, urinary retention, dysuria, or hematuria. Vital signs for the admission were stable although the patient was intermittently hypertensive as her losartan 100 mg was on hold due to her MICHAEL. As result hydralazine 10 mg t.i.d. was added. Losartan 100 mg was resumed prior to discharge with improvement in blood pressure. She will be discharged home and is advised to follow-up in the office with Urology for stent removal. Follow-up with PCP. Status at Discharge Functional status at discharge: independent ambulation Overall status at discharge: patient is progressing back to baseline Time Spent with Patient Time attestation: Total time managing care of this patient today ____ minutes. Discharge coordination time: Greater than 30 minutes Quality: Safe Use of Opioids Does Pt have an Active Cancer Diagnosis on the Problem List?: No Quality: Stroke Does the patient have a stroke diagnosis?: No Physical Exam Vital Signs: Vital Signs: Last Vital Signs Temp 97.7 F 06/01/22 07:12 Pulse 66 06/01/22 07:12 Resp 20 06/01/22 07:12 BP 184/74 H 06/01/22 07:12 Pulse Ox 98 06/01/22 07:12 O2 Del Method Room Air 06/01/22 07:12 O2 Flow Rate 96 05/31/22 11:38 BMI result Body Mass Index 43.9 Constitutional - Awake and Alert, No apparent distress Eyes - PERRLA, EOMI Cardiovascular - S1S2, RRR, No edema Respiratory - Normal lung expansion, Normal respiratory effort, No respiratory distress, CTA bilaterally Gastrointestinal - NT / ND; +BS; No rebound or guarding - No CVA tenderness Extremities - no calf tenderness bilaterally, no swelling Skin - Warm/Dry Neurological - Alert & oriented x3 Psychological - Appropriate affect DS: Data Data Completed and Pending Completed studies during hospitalization [Text1]: Procedures Dilation of Right Ureter with Intraluminal Device, Via Natural or Artificial Opening Endoscopic (10/02/21) Extirpation of Matter from Right Ureter, Via Natural or Artificial Opening Endoscopic (10/02/21) Fluoroscopy of Right Kidney, Ureter and Bladder (10/02/21) Introduction of Remdesivir Anti-infective into Peripheral Vein, Percutaneous Approach, [employer] (03/28/20) Labs on day of discharge: Laboratory Results - last 24 hr 05/31/22 05/31/22 06/01/22 16:06 20:29 06:02 Sodium 141 Potassium 3.8 Chloride 112 H Carbon Dioxide 24 Anion Gap 9 L BUN 38 H Creatinine 2.03 H Estim Creat Clear Calc 32.0 Estimated GFR 25 POC Glucose 158 H 137 H Random Glucose 77 Calcium 8.3 L 06/01/22 06/01/22 07:18 11:03 Sodium Potassium Chloride Carbon Dioxide Anion Gap BUN Creatinine Estim Creat Clear Calc Estimated GFR POC Glucose 79 82 Random Glucose Calcium Discharge Plan Discharge Anticipated Discharge Date/Time: 06/01/22 14:16 Patient Disposition: Home Health Service Discharge Diagnosis: Renal calculi MICHAEL on CKD Referrals: Jeffrey Lobato MD [Physician] - 1 Week Lucrecia Teixeira MD [Primary Care Provider] - 1 Week Discharge Medications: Continued (DME) FreeStyle Lite Strips Strip MISCELLANEOUS QID (DME) blood-glucose meter [FreeStyle [place] Lite] Kit MISCELLANEOUS BID lacosamide [Vimpat] 200 mg tablet 200 mg PO BID (DME) lancets [FreeStyle Lancets] 28 gauge misc 1 gauge topical BID Toujeo SoloStar U-300 Insulin 300 unit/mL (1.5 mL) insulin pen 30 unit subcut BID acetaminophen 500 mg tablet 500 mg PO Q6H PRN (Reason: fever or pain) Qty: 14 0RF omeprazole 40 mg capsule,delayed release(DR/EC) 40 mg PO DAILY Humalog KwikPen Insulin 200 unit/mL (3 mL) insulin pen 16 unit subcut TIDAC Qty: 6 0RF atorvastatin 80 mg tablet 1 tab PO DAILY oxybutynin chloride 10 mg tablet extended release 24hr 1 tab PO DAILY albuterol sulfate [Proventil HFA] 90 mcg/actuation HFA aerosol inhaler 2 puff INHALATION Q4-6H PRN (Reason: Shortness Of Breath) sucralfate 1 gram tablet 1 g PO QID aspirin 81 mg tablet,delayed release (DR/EC) 81 mg PO DAILY amlodipine 10 mg tablet 10 mg PO DAILY losartan 100 mg tablet 100 mg PO QAM (DME) blood pressure test kit-large Kit See Rx Instructions .ROUTE DAILY Qty: 1 Rx Instructions: As directed albuterol sulfate 2.5 mg /3 mL (0.083 %) solution for nebulization 2.5 mg inhalation TID PRN (Reason: wheezing) (DME) nebulizers Misc See Rx Instructions .ROUTE Rx Instructions: As directed fluticasone furoate-vilanterol [Breo Ellipta] 100-25 mcg/dose blister with device 1 inh inhalation DAILY 30 Days Qty: 60 11RF Diet: Advance to usual diet Activity on Discharge: As tolerated Stand Alone Forms: Patient Portal Discharge page Care Plan Goals: Complete resolution of symptoms Health Concerns: Renal calculi MICHAEL on CKD Plan of Treatment: Follow-up with primary care provider as needed Follow-up with urologist for stent removal Assessment: See discharge summary
[2022-06-01] MEDS: Losartan Potassium 50 MG TABLET 100 MG PO (14:47)
[2022-06-01 16:00] VITALS: BP 172/72; PULSE 74; RESP 18; TEMP 36.8; O2SAT 99
[2022-06-01 16:32] LABS: Glucose, Whole Blood 114 mg/dL (60-115)
--- NOTE | 2022-06-01 17:10 | HO.PM.IMPN ---
Subjective Subjective Date of Service: 06/01/22 Interval History: Follow up renal calculi interval history: Abdominal pain resolved. No nausea, vomiting, urinary retention, urinary frequency, dysuria, hematuria. Tolerating diet. Plan for discharge today, however has had refractory hypertension with blood pressure SBP >170 Review of Systems Review of Systems: Yes all other systems are reviewed and are negative Physical Exam Vital Signs: Vital Signs: Last Vital Signs Temp 98.3 F 06/01/22 16:00 Pulse 74 06/01/22 16:00 Resp 18 06/01/22 16:00 BP 172/72 H 06/01/22 16:00 Pulse Ox 99 06/01/22 16:00 O2 Del Method Room Air 06/01/22 16:00 O2 Flow Rate 96 05/31/22 11:38 BMI result Body Mass Index 43.9 Constitutional - Awake and Alert, No apparent distress Eyes - PERRLA, EOMI Cardiovascular - S1S2, RRR, No edema Respiratory - Normal lung expansion, Normal respiratory effort, No respiratory distress, CTA bilaterally Gastrointestinal - NT / ND; +BS; No rebound or guarding Extremities - no calf tenderness bilaterally, no swelling Skin - Warm/Dry Neurological - Alert & oriented x3 Psychological - Appropriate affect Objective Data Active Medications Acetaminophen (Acetaminophen 325 Mg Tablet) 650 mg PO Q6H PRN PRN Reason: Pain, Mild (Pain Scale 1-3) Last Admin: 05/29/22 22:13 Dose: 650 mg Documented By: ESTEBAN Albuterol Sulfate (Albuterol Sulfate (0.083%) 2.5 Mg/3 Ml Vial.Neb) 2.5 mg INHALE TID PRN PRN Reason: wheezing Albuterol Sulfate (Albuterol Sulfate 90 Mcg 8 Gm Inhaler) 2 puff INHALE Q4H PRN PRN Reason: Shortness Of Breath Amlodipine Besylate (Amlodipine Besylate 10 Mg Tablet) 10 mg PO DAILY [facility]; Protocol Last Admin: 06/01/22 08:39 Dose: 10 mg Documented By: SAVAGE Atorvastatin Calcium (Atorvastatin Calcium 80 Mg Tablet) 80 mg PO DAILY [facility] Last Admin: 06/01/22 08:40 Dose: 80 mg Documented By: SAVAGE Carvedilol (Carvedilol 3.125 Mg Tablet) 3.125 mg PO BID [facility]; Protocol Glucose (Glucose Gel 15 Gm Gel..Gram.) 15 gm PO Q15M PRN; Protocol PRN Reason: per Hypoglycemia Standing Ord. Glucose (Glucose Gel 15 Gm Gel..Gram.) 15 gm PO Q15M PRN; Protocol PRN Reason: per Hypoglycemia Standing Ord. Glucose (Glucose Gel 15 Gm Gel..Gram.) 15 gm PO Q15M PRN; Protocol PRN Reason: per Hypoglycemia Standing Ord. Heparin Sodium (Porcine) (Heparin Sodium,Porcine 5,000 Unit/Ml Vial) 5,000 unit SUBCUT Q12H [facility] Last Admin: 06/01/22 08:41 Dose: 5,000 unit Documented By: SAVAGE Dextrose (D10) 250 mls @ 750 mls/hr IV Q15M PRN; Protocol PRN Reason: per Hypoglycemia Standing Ord. Dextrose (D10) 250 mls @ 750 mls/hr IV Q15M PRN; Protocol PRN Reason: per Hypoglycemia Standing Ord. Dextrose (D10) 250 mls @ 750 mls/hr IV Q15M PRN; Protocol PRN Reason: per Hypoglycemia Standing Ord. Insulin Glargine (Insulin Glargine,Hum.Rec.Anlog 100 Unit/Ml 10 Ml Vial) 30 unit SUBCUT BID [facility] Last Admin: 06/01/22 08:40 Dose: 30 unit Documented By: SAVAGE Insulin Human Lispro (Insulin Lispro 100 Unit/Ml 3 Ml Vial) 0 unit SUBCUT QIDACHS [facility]; Protocol Last Admin: 06/01/22 16:26 Dose: Not Given Documented By: EFRAIN Non-Admin Reason: No Insulin Coverage Insulin Human Lispro (Insulin Lispro 100 Unit/Ml 3 Ml Vial) 16 unit SUBCUT TIDAC [facility] Last Admin: 06/01/22 16:27 Dose: Not Given Documented By: EFRAIN Non-Admin Reason: No Insulin Coverage Losartan Potassium (Losartan Potassium 50 Mg Tablet) 100 mg PO DAILY [facility]; Protocol Last Admin: 06/01/22 14:47 Dose: 100 mg Documented By: SAVAGE Morphine Sulfate (Morphine Sulfate 2 Mg/Ml Cartridge) 2 mg IVPUSH Q4H PRN; Protocol PRN Reason: pain Last Admin: 05/31/22 15:13 Dose: 2 mg Documented By: PADMINI Omeprazole (Omeprazole 40 Mg Otis.) 40 mg PO DAILY@0630 [facility] Last Admin: 06/01/22 06:13 Dose: 40 mg Documented By: BARBARA Ondansetron HCl (Ondansetron Hcl 4 Mg/2 Ml Vial) 4 mg IVPUSH Q8H PRN PRN Reason: Nausea and Vomiting Last Admin: 05/31/22 10:25 Dose: 4 mg Documented By: SAVAGE Ondansetron HCl (Ondansetron Hcl 4 Mg/2 Ml Vial) 4 mg IVPUSH ONCE PRN PRN Reason: Nausea and Vomiting Oxybutynin Chloride (Oxybutynin Chloride Er 5 Mg Tab.Er.24) 10 mg PO DAILY [facility] Last Admin: 06/01/22 08:40 Dose: 10 mg Documented By: SAVAGE Oxycodone HCl (Oxycodone Hcl Immed Release 5 Mg Tablet) 5 mg PO Q4H PRN PRN Reason: Pain, Mild (Pain Scale 1-3) Last Admin: 05/31/22 11:29 Dose: 5 mg Documented By: SAVAGE Oxycodone HCl (Oxycodone Hcl Immed Release 5 Mg Tablet) 5 mg PO ONCE PRN PRN Reason: Pain, Severe (Pain Scale 7-10) Pharmacy Consult (Consult Rx Perform Med Rec) 1 each MISCELLANE ONCE PRN PRN Reason: Consult order Sodium Chloride (0.9 % Sodium Chloride Flush 3 Ml Syringe) 3 ml IVFLUSH [facility] Last Admin: 06/01/22 16:26 Dose: 3 ml Documented By: RIOSCMIKE Tramadol HCl (Tramadol Hcl 50 Mg Tablet) 50 mg PO Q6H PRN PRN Reason: Pain, Moderate (Pain Scale 4-6 Last Admin: 05/31/22 01:44 Dose: 50 mg Documented By: LYSZ Labs 05/30/22 05:47 06/01/22 06:02 Labs: Laboratory Results - last 24 hr 05/31/22 06/01/22 06/01/22 20:29 06:02 07:18 Anion Gap 9 L Estim Creat Clear Calc 32.0 Estimated GFR 25 POC Glucose 137 H 79 Random Glucose 77 Calcium 8.3 L 06/01/22 06/01/22 11:03 16:26 Anion Gap Estim Creat Clear Calc Estimated GFR POC Glucose 82 114 Random Glucose Calcium Assessment and Plan (1) Calculus of distal right ureter: Status: Acute Plan 66 year old women admitted with kidney stone with flank pain, nausea and vomiting Right renal calculi No hydronephrosis noted urology consultation 0.4 cm distal right ureteral calcification, Status post cystoscopy (05/30/22), right dilatation of ureteric orifice, right ureteroscopy and right stent placement Repeat CT- ureteral stent appropriately placed. No acute intra-abdominal abnormality Pain management, antiemetics urine cx mixed bacteria - Rocephin Dc'd MICHAEL on CKD 3- resolved trending down to baseline follow bmp Diabetes mellitus Sliding scale, ADA diet Asthma No exacerbation Continue home inhalers Hypertension- uncontrolled Continue amlodipine. DC hydralazine. Resume losartan Consider adding coreg BID if remains hypertensive Normocytic anemia No signs of active bleeding normal iron studies DVT prophylaxis heparin Attending Dr. Araya continued hospital stay for management of refractory htn. DC home likely tm once BP more stable. Time Spent With Patient Time: Total time managing care of this patient today ____ minutes. Quality Stroke Does the patient have a stroke diagnosis?: No VTE Prior VTE?: No VTE Risk Level:: Medical - moderate - high VTE Device Contraindication: Treatment Not Indicated VTE Drug Contraindication: N/A - Med Ordered
[2022-06-01 19:30] VITALS: BP 164/72; PULSE 65; RESP 20; TEMP 36.1; O2SAT 98
[2022-06-01 20:06] LABS: Glucose, Whole Blood 142 mg/dL (60-115)
[2022-06-01] MEDS: carvediloL 3.125 MG TABLET PO (21:38)
[2022-06-01] MEDS: oxyCODONE HCl Immed Release 5 MG TABLET PO (21:38)
[2022-06-02] VITALS: BP 155/70; PULSE 74; RESP 18; TEMP 36.2; O2SAT 100
[2022-06-02] MEDS: Acetaminophen 325 MG TABLET 650 MG PO (02:18)
[2022-06-02] MEDS: oxyCODONE HCl Immed Release 5 MG TABLET PO (02:19)
[2022-06-02 03:34] VITALS: BP 165/75; PULSE 68; RESP 18; TEMP 36.4; O2SAT 100
[2022-06-02] MEDS: Omeprazole 40 MG CAPSULE.DR PO (06:28)
[2022-06-02 07:29] VITALS: BP 140/67; PULSE 65; RESP 18; TEMP 36.6; O2SAT 98
[2022-06-02] MEDS: Heparin Sodium,Porcine 5,000 UNIT/ML VIAL 5000 UNIT SUBCUT (07:46)
[2022-06-02] MEDS: amLODIPine Besylate 10 MG TABLET PO (07:47)
[2022-06-02] MEDS: Atorvastatin Calcium 80 MG TABLET PO (07:47)
[2022-06-02] MEDS: oxyBUTYnin chloride ER 5 MG TAB.ER.24 10 MG PO (07:47)
[2022-06-02] MEDS: carvediloL 3.125 MG TABLET PO (07:47)
[2022-06-02] MEDS: Losartan Potassium 50 MG TABLET 100 MG PO (07:48)
[2022-06-02 07:49] LABS: Glucose, Whole Blood 69 mg/dL (60-115)
[2022-06-02] MEDS: Insulin Glargine,Hum.rec.anlog 100 UNIT/ML 10 ML VIAL 30 UNIT SUBCUT (09:58)
--- NOTE | 2022-06-02 09:58 | P.DS_ITS ---
DS: Providers Provider Date of Service: 06/02/22 Date of admission: 05/29/22 08:28 Date of discharge: 06/02/22 Primary care physician: Lucrecia Teixeira MD Consults: 05/29/22 07:40 Consult to Urology Stat Consulting Provider: Jeffrey Lobato Reason for consultation: Right distal ureteral stone, acute kidney injury 05/29/22 08:27 Consult to Urology Routine Consulting Provider: Jeffrey Lobato Reason for consultation: renal calculi Has provider been notified: Yes Attending physician on discharge: Kal Araya Discharging clinician: Suze Nielsen DS: Diagnosis Discharge Diagnosis (1) Calculus of distal right ureter: Status: Acute DS: Summary Hospital Course Hospital Course: HPI on admission Chief Complaint: abdominal pain 66-year-old female presenting to the ER with complaints nausea, vomiting, diffuse abdominal and right flank pain.? She reports that this abdominal pain has been ongoing for months related to renal calculi over the last 24 hours her symptoms became worse is with even burning with urination an episode of vomiting and chills.? She denied fever, recent travel, sick contacts.? She reports she does have a history of kidney stones with stent placement and removal.? In the ER she is noted to have a mildly elevated white count of 11.4 without fever, stable blood pressure.? History of chronic kidney disease with elevated creatinine of 2.49.? Abdominal and pelvic CT showing 0.4 cm distal right ureteral calculi with no hydronephrosis an additional nonobstructive right renal calculi.? The ER physician stated conversation with the urologist with plan for procedure tomorrow.? In the ER she was given IV fluids, morphine and Zofran.? She will be admitted for further management and treatment of acute pain secondary to renal calculi. Hospital course: Patient admitted for management of of right renal calculi with MICHAEL but no hydronephrosis. Empirically treated with ceftriaxone given positive UA, but UC negative for acute UTI so this was discontinued. patient was evaluated by Urology and underwent right-sided retrograde cystoscopy with dilatation of ureteric orifice under fluoroscopy, right your os could be with stone basketing, and right stent placement. Following removal of stone, renal function has gradually been returning to baseline with creatinine on discharge of 2.03 with background of chronic kidney disease. She was experiencing significant right-sided abdominal pain and CT of the abdomen/pelvis was repeated demonstrating appropriate placement of the right internal ureteral stent without any evidence of the distal right ureteral calculi previously seen. There is also noted to be left renal calculi without caliectasis or obstruction. Upon re-evaluation, the patient is comfortable and denies any ongoing symptoms including abdominal pain, nausea, vomiting, flank pain, urinary retention, dysuria, or hematuria. Urine culture grew mixed bacterial brown Vital signs for the admission were stable although the patient was intermittently hypertensive as her losartan 100 mg was on hold due to her MICHAEL. As result coreg was added and Losartan 100 mg was resumed as renal function trended down prior to discharge with improvement in blood pressure. She will be discharged home and is advised to follow-up in the office with Urology for stent removal. Follow-up with PCP. Time Spent with Patient Time attestation: Total time managing care of this patient today ____ minutes. Discharge coordination time: Greater than 30 minutes Quality: Safe Use of Opioids Does Pt have an Active Cancer Diagnosis on the Problem List?: No Quality: Stroke Does the patient have a stroke diagnosis?: No Physical Exam Vital Signs: Vital Signs: Last Vital Signs Temp 97.8 F 06/02/22 07:29 Pulse 65 06/02/22 07:29 Resp 18 06/02/22 07:29 BP 140/67 H 06/02/22 07:29 Pulse Ox 98 06/02/22 07:29 O2 Del Method Room Air 06/02/22 07:29 O2 Flow Rate 96 05/31/22 11:38 BMI result Body Mass Index 43.9 Const: General: cooperative, alert and awake Nutritional Appearance: average body habitus Orientation/consciousness: patient oriented x3 Resp: Effort & Inspection: normal respiratory effort Cardio: Rate: regular rate GI: Inspection: No distended Palpation (GI): Soft to palpation and nontender : General: Yes no CVA tenderness Back/Spine/Pelvis: Back: no CVA tenderness Neuro: General: patient oriented x3 Extrem: General: Yes no pedal edema DS: Data Data Completed and Pending Completed studies during hospitalization [Text1]: Procedures Dilation of Right Ureter with Intraluminal Device, Via Natural or Artificial Opening Endoscopic (10/02/21) Extirpation of Matter from Right Ureter, Via Natural or Artificial Opening Endoscopic (10/02/21) Fluoroscopy of Right Kidney, Ureter and Bladder (10/02/21) Introduction of Remdesivir Anti-infective into Peripheral Vein, Percutaneous Approach, [employer] (03/28/20) Labs on day of discharge: Laboratory Results - last 24 hr 06/01/22 06/01/22 06/01/22 11:03 16:26 20:03 POC Glucose 82 114 142 H 06/02/22 07:31 POC Glucose 69 Discharge Plan Discharge Anticipated Discharge Date/Time: 06/01/22 14:16 Patient Disposition: Home Health Service Discharge Diagnosis: Renal calculi MICHAEL on CKD Referrals: Jeffrey Lobato MD [Physician] - 1 Week Lucrecia Teixeira MD [Primary Care Provider] - 1 Week Discharge Medications: Continued (DME) FreeStyle Lite Strips Strip MISCELLANEOUS QID (DME) blood-glucose meter [FreeStyle [place] Lite] Kit MISCELLANEOUS BID lacosamide [Vimpat] 200 mg tablet 200 mg PO BID (DME) lancets [FreeStyle Lancets] 28 gauge misc 1 gauge topical BID [employer] SoloStar U-300 Insulin 300 unit/mL (1.5 mL) insulin pen 30 unit subcut BID acetaminophen 500 mg tablet 500 mg PO Q6H PRN (Reason: fever or pain) Qty: 14 0RF omeprazole 40 mg capsule,delayed release(DR/EC) 40 mg PO DAILY Humalog KwikPen Insulin 200 unit/mL (3 mL) insulin pen 16 unit subcut TIDAC Qty: 6 0RF atorvastatin 80 mg tablet 1 tab PO DAILY oxybutynin chloride 10 mg tablet extended release 24hr 1 tab PO DAILY albuterol sulfate [Proventil HFA] 90 mcg/actuation HFA aerosol inhaler 2 puff INHALATION Q4-6H PRN (Reason: Shortness Of Breath) sucralfate 1 gram tablet 1 g PO QID aspirin 81 mg tablet,delayed release (DR/EC) 81 mg PO DAILY amlodipine 10 mg tablet 10 mg PO DAILY losartan 100 mg tablet 100 mg PO QAM (DME) blood pressure test kit-large Kit See Rx Instructions .ROUTE DAILY Qty: 1 Rx Instructions: As directed albuterol sulfate 2.5 mg /3 mL (0.083 %) solution for nebulization 2.5 mg inhalation TID PRN (Reason: wheezing) (DME) nebulizers Misc See Rx Instructions .ROUTE Rx Instructions: As directed fluticasone furoate-vilanterol [Breo Ellipta] 100-25 mcg/dose blister with device 1 inh inhalation DAILY 30 Days Qty: 60 11RF Discharge Orders: Discharge Order (Routine); Ordered 06/02/22 Ordered By: Suze Nielsen Diet: Advance to usual diet Activity on Discharge: As tolerated Stand Alone Forms: Patient Portal Discharge page Care Plan Goals: Complete resolution of symptoms Health Concerns: Renal calculi MICHAEL on CKD Plan of Treatment: Follow-up with primary care provider as needed Follow-up with urologist for stent removal Assessment: See discharge summary
[2022-06-02 11:11] LABS: Glucose, Whole Blood 126 mg/dL (60-115)
--- NOTE | 2022-06-02 13:15 | MHC.CM.PN ---
PT WILL DC HOME TODAY WITH RESUMPTION OF HEAD DOFFER SERVICES
== END 2022-06-02 13:18 | disposition home or self-care (01) | DRG 660 ==
LOC: HO.ED 07:41 → HO.EDOVER 08:34 → HO.S3 09:31
PROVIDERS: Physician Assistant; Urology; Admitting Provider Nurse Practitioner Acute Care; Emergency Provider Emergency Medicine Emergency Medical Services; PCP General Practice; Visit Provider Physician Assistant Medical
PROC: 0T768DZ Dilation of Right Ureter with Intraluminal Device, Via Natural or Artificial Opening Endoscopic (ICD-10-PCS; principal; 2022-05-30 13:00)
DX: N20.2 Calculus of kidney with calculus of ureter (principal); N17.9 Acute kidney failure, unspecified; Z68.41 Body mass index [BMI] 40.0-44.9, adult; E78.5 Hyperlipidemia, unspecified; E66.01 Morbid (severe) obesity due to excess calories; N18.30 Chronic kidney disease, stage 3 unspecified; Z71.3 Dietary counseling and surveillance; I12.9 Hypertensive chronic kidney disease with stage 1 through stage 4 chronic kidney disease, or unspecified chronic kidney disease; J45.909 Unspecified asthma, uncomplicated; D64.9 Anemia, unspecified; D63.1 Anemia in chronic kidney disease; Z20.822 Contact with and (suspected) exposure to COVID-19; Z79.4 Long term (current) use of insulin; Z79.51 Long term (current) use of inhaled steroids; Z79.82 Long term (current) use of aspirin; Z79.899 Other long term (current) drug therapy
CPT/HCPCS: 36415; 74176; 80048; 80053; 81001; 82947; 83540; 83605; 83690; 85025; 85610; 85730; 87086; 87635; 93005; 99285; C1758; C1769; C2617; J1100; J1643; J2250; J2270; J2405; J3010

== ENCOUNTER → 2022-06-07 10:01 | Outpatient (BNVA) | payer OTHER, SELFPAY | PROVIDERS: PCP General Practice; Visit Provider Urology | DX: N20.1 Calculus of ureter (principal); E11.22 Type 2 diabetes mellitus with diabetic chronic kidney disease; N18.30 Chronic kidney disease, stage 3 unspecified; Z79.4 Long term (current) use of insulin | CPT/HCPCS: 52310 ==

== ENCOUNTER → 2022-06-27 14:59 | Outpatient (BNVA) | payer OTHER, SELFPAY | PROVIDERS: PCP Internal Medicine; Referring Provider Internal Medicine; Visit Provider Surgery | DX: K43.9 Ventral hernia without obstruction or gangrene (principal) | CPT/HCPCS: 99202 ==

== ENCOUNTER 2022-07-06 23:21 | Emergency (ER) | payer OTHER, SELFPAY ==
--- NOTE | ~2022-07-06 | CT_ITS ---
EXAMINATION: NONCONTRAST HEAD CT NONCONTRAST CERVICAL SPINE CT INDICATION INFORMATION: Fall. Headache. COMPARISON: CT head dated 05/10/2019 TECHNIQUE: Separate noncontrast CT examinations of the head and cervical spine were performed. Coronal and sagittal images were created for each examination at the technologist workstation. This CT examination was performed using dose optimization techniques as appropriate, variously including the following: *Automated exposure control *Adjustment of mA and/or kV according to patient size (this includes techniques or standardized protocols for targeted exams where dose is matched to indication/reason for exam; i.e. extremities or head) *Use of iterative reconstruction technique DLP: 1348 mGy-cm FINDINGS: Head: There is no evidence of acute intracranial hemorrhage or territorial infarction. No abnormal mass effect or midline shift is seen. Parks to white matter differentiation is well preserved. No extra-axial fluid collections are identified. No hydrocephalus. No significant volume loss. Left frontal encephalomalacia and gliosis underlying a prior left frontal craniotomy for resection of the previously seen extra-axial mass along the left sphenoid. No new areas of abnormal brain parenchymal attenuation. No acute osseous or soft tissue abnormality. The mastoid air cells and visualized portions of the paranasal sinuses are well aerated. Cervical spine: There is anatomic alignment of the vertebral bodies and posterior elements. The atlantoaxial and atlantooccipital articulations are intact. Vertebral body heights maintained. Small endplate osteophytes present from C4 through the upper thoracic spine. No evidence of acute fracture. No prevertebral soft tissue swelling. Stable postoperative changes of the left posterior first and second ribs is partial resections posteriorly, and pleural parenchymal scarring at the left lung apex. The thyroid gland is unremarkable. CT/CT cervical spine wo IV con IMPRESSION: * No acute intracranial hemorrhage or territorial infarction. * No acute fracture or malalignment of the cervical spine. * Left frontal encephalomalacia and gliosis underlying a prior left frontal craniotomy for resection of the previously seen extra-axial mass along the left sphenoid.
[2022-07-06 23:38] VITALS: BP 173/78; BP 188/92; PULSE 76; PULSE 83; RESP 20; TEMP 36.5; O2SAT 96; O2SAT 98; BMI 49.6
--- NOTE | 2022-07-06 23:41 | ED.FALL ---
HPI - Fall General Chief Complaint: Fall Stated Complaint: fall with head strike Time Seen by Provider: 07/06/22 23:34 Source: patient Mode of arrival: EMS Limitations: no limitations History of Present Illness HPI Narrative: Patient comes to the emergency room complaining of a fall. Patient states that she was about to go to the bathroom, patient thought that her walker was in front of her, patient reached out to grab it, however, the walker was elevated for head and she thought he would be and she fell forward. Patient denies loss of consciousness, patient did hit her head, has a laceration in the scalp. Denies headache or neck pain. Denies any other injuries. Related Data Home Medications Medication Instructions Recorded Confirmed blood sugar diagnostic (FreeStyle 03/28/20 06/27/22 Lite Strips) blood-glucose meter (FreeStyle 03/28/20 06/27/22 [place] Lite kit) lacosamide 200 mg tablet (Vimpat) 200 mg PO BID 03/28/20 06/27/22 lancets 28 gauge (FreeStyle 03/28/20 06/27/22 Lancets) insulin glargine U-300 conc 300 30 unit subcut BID 03/29/20 06/27/22 unit/mL (1.5 mL) subcutaneous pen ([employer] SoloStar U-300 Insulin) omeprazole 40 mg capsule,delayed 40 mg PO DAILY 10/02/21 06/27/22 release blood pressure test kit-large #1 ea 10/12/21 06/27/22 albuterol sulfate 90 mcg/actuation 2 puff inhalation Q4-6H PRN 12/20/21 06/27/22 aerosol inhaler (Proventil HFA) Shortness Of Breath atorvastatin 80 mg tablet 1 tab PO DAILY 12/20/21 06/27/22 oxybutynin chloride 10 mg 1 tab PO DAILY 12/20/21 06/27/22 tablet,extended release 24 hr albuterol sulfate 2.5 mg/3 mL 2.5 mg inhalation TID PRN wheezing 01/20/22 06/27/22 (0.083 %) solution for nebulization nebulizers 01/20/22 06/27/22 amlodipine 10 mg tablet 10 mg PO DAILY 05/29/22 06/27/22 aspirin 81 mg tablet,delayed 81 mg PO DAILY 05/29/22 06/27/22 release losartan 100 mg tablet 100 mg PO QAM 05/29/22 06/27/22 sucralfate 1 gram tablet 1 g PO QID 05/29/22 06/27/22 diclofenac sodium 1 % topical gel 2 g topical BEDTIME PRN 06/07/22 06/27/22 lancets 33 gauge (TRUEplus Lancets) #100 ea 06/07/22 06/27/22 trazodone 50 mg tablet 100 mg PO BEDTIME 06/07/22 06/27/22 Previous Rx's Medication Instructions Recorded insulin lispro 200 unit/mL (3 mL) 16 unit (0.08 mL) subcut TIDAC #6 10/05/21 subcutaneous pen (Humalog KwikPen mL U-200 Insulin) fluticasone furoate 100 1 inh inhalation DAILY 30 days #60 01/20/22 mcg-vilanterol 25 mcg/dose ea inhalation powder (Breo Ellipta) acetaminophen 500 mg tablet 500 mg PO Q6H PRN fever or pain 02/24/22 #14 tabs fluconazole 150 mg tablet 150 mg PO Q3D 6 days #3 tabs 06/07/22 Allergies Allergy/AdvReac Type Severity Reaction Status Date / Time egg Allergy Mild Abdominal Verified 06/27/22 15:13 Pain Review of Systems Review of Systems: Constitutional : No Weight loss, No Fever, No Chills, No Night Sweats, No Fatigue, No Malaise ENT/Mouth : No Hearing loss, No Ear Pain, No Nasal Congestion, No Sinus Pain, No Hoarseness, No sore throat, No Rhinorrhea, No Swallowing Difficulty Eyes: No Eye Pain, No Swelling, No Redness, No Foreign Body, No Discharge, No Vision Changes Cardiovascular : No Chest Pain, No SOB, No Dyspnea on Exertion, No Orthopnea, No Edema, No Palpitations Respiratory : No Cough, No Sputum, No Wheezing, No Smoke Exposure, No Dyspnea Gastrointestinal : No Nausea, No Vomiting, No Diarrhea, No Constipation, No abdominal Pain, No Hematochezia, No Melena Genitourinary : no irregular bleeding, No Dysuria, No Urinary Frequency, No Hematuria, No Urinary Incontinence, No Urgency, No Flank Pain, No Urinary Flow Changes, No Hesitancy Musculoskeletal : No joint pain, No Myalgias, No Joint Swelling Skin : Laceration to scalp Neuro : No Weakness, No Numbness, No Paresthesias, No Loss of Consciousness, No Dizziness, No Headache Psych : No Anxiety/Panic, No Depression, No SI/HI/AH/VH, No Social Issues, Heme/Lymph: No Bruising, No Bleeding,No Lymphadenopathy Endocrine : No Polyuria, No Polydipsia, No Temperature Intolerance [facility] Past Medical History Medical History Acute hypoxemic respiratory failure due to COVID-19 Asthma Brain tumor (benign) CKD (chronic kidney disease) stage 3, GFR 30-59 ml/min COVID-19 Depression Diabetes Gastritis HLD (hyperlipidemia) Kidney stone Lower extremity edema Pneumonia Pulmonary nodule Seizure Surgical History H/O cystoscopy H/O hernia repair H/O lithotripsy H/O ureteroscopy History of cholecystectomy S/P ureteral stent placement Family History Family History Father CAD (coronary artery disease) Brother Lung cancer Sister Kidney stone Social History Social History Household Members: Children Housing: Apartment Do you presently have visiting nurse or other home services: Yes (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) Alcohol intake: never Patient Tobacco Use Status: Never used Tobacco Smoked in Last 30 Days: No e-Cigarette/Vaping Use: Never Used Use of substances other than those prescribed or required for medical reasons: No Advance Directives: Yes Advance Directives on File: Yes Advance Directives Date on File: 12/20/21 service: No Current occupational status: unemployed Physical Exam Vital Signs: Vital Signs: Last Vital Signs Temp 97.7 F 07/06/22 23:38 Pulse 83 07/06/22 23:38 Resp 20 07/06/22 23:38 BP 173/78 H 07/06/22 23:38 Pulse Ox 98 07/06/22 23:38 O2 Del Method Room Air 07/06/22 23:38 BMI result Body Mass Index 49.6 Const: Other: Appearance: Alert. Oriented X3. No acute distress. Eyes: Pupils equal, round and reactive to light. ENT: Pharynx normal. Neck: Normal inspection. Neck supple. No lymph nodes noted. No crepitus CVS: Normal heart rate and rhythm. Pulses normal. Normal S1 and S2 Respiratory: No respiratory distress. Breath sounds normal. No Wheezing. No rales Abdomen: Soft and nontender. No rigidity. No distention. Skin: Skin warm and dry. Normal skin color. Normal skin turgor. Laceration to the scalp Extremities: No lower extremity edema. No Lacerations. No Rash Neuro: Oriented X 3. No motor deficit. No sensory deficit. Moving all extremities. No slurred speech. CN 2 through 12 grossly intact Psych: calm, cooperative, normal affect Course Course Course Narrative: -cervical spine CT and head CT spine pending Medical Decision Making Medical Decision Making MDM Narrative: -please see paper nodes, we are on downtime. -patient received 2 zeyad to the scalp -CT scan of the head and neck did not show any acute abnormalities. Patient was discharged Discharge Plan Discharge Clinical Impression: Fall, Laceration of scalp Patient Disposition: Home, Self-Care Instructions: Laceration (ED), Staple Care (ED) Additional Instructions: Please follow-up with your primary care physician tomorrow. If you have any worsening or new symptoms, please return to the emergency room or call 911 Prescriptions: No Action (DME) FreeStyle Lite Strips Strip MISCELLANEOUS QID (DME) blood-glucose meter [FreeStyle [place] Lite] Kit MISCELLANEOUS BID lacosamide [Vimpat] 200 mg tablet 200 mg PO BID (DME) lancets [FreeStyle Lancets] 28 gauge misc 1 gauge topical BID [employer] SoloStar U-300 Insulin 300 unit/mL (1.5 mL) insulin pen 30 unit subcut BID acetaminophen 500 mg tablet 500 mg PO Q6H PRN (Reason: fever or pain) Qty: 14 0RF omeprazole 40 mg capsule,delayed release(DR/EC) 40 mg PO DAILY Humalog KwikPen Insulin 200 unit/mL (3 mL) insulin pen 16 unit subcut TIDAC Qty: 6 0RF atorvastatin 80 mg tablet 1 tab PO DAILY oxybutynin chloride 10 mg tablet extended release 24hr 1 tab PO DAILY albuterol sulfate [Proventil HFA] 90 mcg/actuation HFA aerosol inhaler 2 puff INHALATION Q4-6H PRN (Reason: Shortness Of Breath) sucralfate 1 gram tablet 1 g PO QID aspirin 81 mg tablet,delayed release (DR/EC) 81 mg PO DAILY amlodipine 10 mg tablet 10 mg PO DAILY losartan 100 mg tablet 100 mg PO QAM [place] blood pressure test kit-large Kit See Rx Instructions .ROUTE DAILY Qty: 1 Rx Instructions: As directed albuterol sulfate 2.5 mg /3 mL (0.083 %) solution for nebulization 2.5 mg inhalation TID PRN (Reason: wheezing) ([facility] nebulizers Misc See Rx Instructions .Route Rx Instructions: As directed fluticasone furoate-vilanterol [Breo Ellipta] 100-25 mcg/dose blister with device 1 inh inhalation DAILY 30 Days Qty: 60 11RF diclofenac sodium 1 % gel 2 g topical BEDTIME PRN trazodone 50 mg tablet 100 mg PO BEDTIME (DME) lancets [TRUEplus Lancets] 33 gauge misc See Rx Instructions .ROUTE BID Qty: 100 Rx Instructions: As directed fluconazole 150 mg tablet 150 mg PO Q3D 6 Days Qty: 3 0RF
== END 2022-07-07 05:06 | disposition home or self-care (01) ==
PROVIDERS: Emergency Provider Emergency Medicine; PCP General Practice
DX: S01.01XA Laceration without foreign body of scalp, initial encounter (principal); R51.9 Headache, unspecified; M54.2 Cervicalgia; W01.10XA Fall on same level from slipping, tripping and stumbling with subsequent striking against unspecified object, initial encounter; Y93.9 Activity, unspecified; Y92.009 Unspecified place in unspecified non-institutional (private) residence as the place of occurrence of the external cause; Y99.9 Unspecified external cause status; Z79.899 Other long term (current) drug therapy
CPT/HCPCS: 12031; 70450; 72125; 99284

== ENCOUNTER 2022-07-14 15:13 | Emergency (ER) | payer OTHER, SELFPAY ==
[2022-07-14 17:00] VITALS: BP 120/75; PULSE 80; RESP 18; TEMP 36.1; O2SAT 98; BMI 105.0
--- NOTE | 2022-07-14 17:52 | ED_ITS ---
HPI - General Adult General Chief complaint: General Medical Stated complaint: staple removal Time Seen by Provider: 07/14/22 17:02 Source: patient and RN notes reviewed Mode of arrival: ambulatory Limitations: no limitations History of Present Illness HPI narrative: This is a 66-year-old female presenting to the emergency department for staple removal. Patient was seen here on July 06 after a fall where she lacerated her scalp and required 2 zeyad to be placed. She tolerated the zeyad well without any complications. Denies any fevers chills. Denies any redness in the area. No drainage from the wound. No other complaints or concerns at this time. MD complaint: Staple removal. Location: head Related Data Home Medications Medication Instructions Recorded Confirmed blood sugar diagnostic (FreeStyle 03/28/20 06/27/22 Lite Strips) blood-glucose meter (FreeStyle 03/28/20 06/27/22 [place] Lite kit) lacosamide 200 mg tablet (Vimpat) 200 mg PO BID 03/28/20 06/27/22 lancets 28 gauge (FreeStyle 03/28/20 06/27/22 Lancets) insulin glargine U-300 conc 300 30 unit subcut BID 03/29/20 06/27/22 unit/mL (1.5 mL) subcutaneous pen (TouMamaherb SoloStar U-300 Insulin) omeprazole 40 mg capsule,delayed 40 mg PO DAILY 10/02/21 06/27/22 release blood pressure test kit-large #1 ea 10/12/21 06/27/22 albuterol sulfate 90 mcg/actuation 2 puff inhalation Q4-6H PRN 12/20/21 06/27/22 aerosol inhaler (Proventil HFA) Shortness Of Breath atorvastatin 80 mg tablet 1 tab PO DAILY 12/20/21 06/27/22 oxybutynin chloride 10 mg 1 tab PO DAILY 12/20/21 06/27/22 tablet,extended release 24 hr albuterol sulfate 2.5 mg/3 mL 2.5 mg inhalation TID PRN wheezing 01/20/22 06/27/22 (0.083 %) solution for nebulization nebulizers 01/20/22 06/27/22 amlodipine 10 mg tablet 10 mg PO DAILY 05/29/22 06/27/22 aspirin 81 mg tablet,delayed 81 mg PO DAILY 05/29/22 06/27/22 release losartan 100 mg tablet 100 mg PO QAM 05/29/22 06/27/22 sucralfate 1 gram tablet 1 g PO QID 05/29/22 06/27/22 diclofenac sodium 1 % topical gel 2 g topical BEDTIME PRN 06/07/22 06/27/22 lancets 33 gauge (TRUEplus Lancets) #100 ea 06/07/22 06/27/22 trazodone 50 mg tablet 100 mg PO BEDTIME 06/07/22 06/27/22 Previous Rx's Medication Instructions Recorded insulin lispro 200 unit/mL (3 mL) 16 unit (0.08 mL) subcut TIDAC #6 10/05/21 subcutaneous pen (Humalog KwikPen mL U-200 Insulin) fluticasone furoate 100 1 inh inhalation DAILY 30 days #60 01/20/22 mcg-vilanterol 25 mcg/dose ea inhalation powder (Breo Ellipta) acetaminophen 500 mg tablet 500 mg PO Q6H PRN fever or pain 02/24/22 #14 tabs fluconazole 150 mg tablet 150 mg PO Q3D 6 days #3 tabs 06/07/22 Allergies Allergy/AdvReac Type Severity Reaction Status Date / Time egg Allergy Mild Abdominal Verified 07/14/22 17:03 Pain Review of Systems Review of Systems: Constitutional: No Weight loss, No Fever, No Chills ENT/Mouth: No Ear Pain, No Nasal Congestion, No Sinus Pain, No Hoarseness, No sore throat, No Rhinorrhea, No Swallowing Difficulty Cardiovascular: No Chest Pain, No SOB Respiratory: No Cough, No Sputum, No Wheezing Gastrointestinal: No Nausea, No Vomiting, No Diarrhea, No Constipation, No Abdominal pain Genitourinary: No Dysuria, No Urinary Frequency, No Hematuria, No Urinary Incontinence/retention, No Urgency, No Flank Pain Musculoskeletal: No joint pain, No Myalgias, No Joint Swelling Skin: No Skin Lesions, No rash Neuro: No Weakness, No Numbness, No Paresthesias PMFSH Past Medical History Medical History Acute hypoxemic respiratory failure due to COVID-19 Asthma Brain tumor (benign) CKD (chronic kidney disease) stage 3, GFR 30-59 ml/min COVID-19 Depression Diabetes Gastritis HLD (hyperlipidemia) Kidney stone Lower extremity edema Pneumonia Pulmonary nodule Seizure Surgical History H/O cystoscopy H/O hernia repair H/O lithotripsy H/O ureteroscopy History of cholecystectomy S/P ureteral stent placement Family History Family History Father CAD (coronary artery disease) Brother Lung cancer Sister Kidney stone Social History Social History Household Members: Children Housing: Apartment Do you presently have visiting nurse or other 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 No acute distress. HEENT: Normal inspection CVS: Normal heart rate and rhythm. Pulses normal. Respiratory: No respiratory distress Skin: Two zeyad noted to frontal scalp to well healed laceration, no wound dehiscence, drainage, increased warmth or erythema. Neuro: Oriented X 3. No motor deficit. No sensory deficit. Medical Decision Making Medical Decision Making MDM Narrative: 66-year-old female presenting to emergency department for staple removal. Wound on scalp with good healing, 2 zeyad removed using staple removal. Patient tolerated procedure well without any complications or concerns. Given good wound care instructions. Stable for discharge Differential Diagnosis Differential Diagnoses: The differential diagnosis associated with the presentation includes Cellulitis, staple removal, wound dehiscence, wound check Discharge Plan Discharge Clinical Impression: Encounter for removal of zeyad Patient Disposition: Home, Self-Care Additional Instructions: Your 2 zeyad removed today. Do not scratch at the healing wound. Watch for any signs of infection including fevers, chills or drainage from the area. If any new or worsening symptoms occur please return for re-evaluation. Follow-up with your primary care. Tus 2 grapas removidas hoy. No rasque la herida en proceso de cicatrizaci?n. Est? atento a cualquier signo de infecci?n, tiffanie fiebre, escalofr?os o drenaje del ?brad. Si se presentan s?ntomas nuevos o que empeoran, regrese para pasha reevaluaci?n. Seguimiento con vila atenci?n primaria. Prescriptions: No Action (DME) FreeStyle Lite Strips Strip MISCELLANEOUS QID (DME) blood-glucose meter [FreeStyle [place] Lite] Kit MISCELLANEOUS BID lacosamide [Vimpat] 200 mg tablet 200 mg PO BID (DME) lancets [FreeStyle Lancets] 28 gauge misc 1 gauge topical BID Toujeo SoloStar U-300 Insulin 300 unit/mL (1.5 mL) insulin pen 30 unit subcut BID acetaminophen 500 mg tablet 500 mg PO Q6H PRN (Reason: fever or pain) Qty: 14 0RF omeprazole 40 mg capsule,delayed release(DR/EC) 40 mg PO DAILY Humalog KwikPen Insulin 200 unit/mL (3 mL) insulin pen 16 unit subcut TIDAC Qty: 6 0RF atorvastatin 80 mg tablet 1 tab PO DAILY oxybutynin chloride 10 mg tablet extended release 24hr 1 tab PO DAILY albuterol sulfate [Proventil HFA] 90 mcg/actuation HFA aerosol inhaler 2 puff INHALATION Q4-6H PRN (Reason: Shortness Of Breath) sucralfate 1 gram tablet 1 g PO QID aspirin 81 mg tablet,delayed release (DR/EC) 81 mg PO DAILY amlodipine 10 mg tablet 10 mg PO DAILY losartan 100 mg tablet 100 mg PO QAM (DME) blood pressure test kit-large Kit See Rx Instructions .ROUTE DAILY Qty: 1 Rx Instructions: As directed albuterol sulfate 2.5 mg /3 mL (0.083 %) solution for nebulization 2.5 mg inhalation TID PRN (Reason: wheezing) (DME) nebulizers Misc See Rx Instructions .Route Rx Instructions: As directed fluticasone furoate-vilanterol [Breo Ellipta] 100-25 mcg/dose blister with device 1 inh inhalation DAILY 30 Days Qty: 60 11RF diclofenac sodium 1 % gel 2 g topical BEDTIME PRN trazodone 50 mg tablet 100 mg PO BEDTIME (DME) lancets [TRUEplus Lancets] 33 gauge misc See Rx Instructions .ROUTE BID Qty: 100 Rx Instructions: As directed fluconazole 150 mg tablet 150 mg PO Q3D 6 Days Qty: 3 0RF Interventions: ED Discharge Assessment Last Done: 07/14/22 17:22 Discharge Date/Time: 07/14/22 17:24
== END 2022-07-14 17:24 | disposition home or self-care (01) ==
PROVIDERS: Emergency Provider Emergency Medicine; PCP Internal Medicine
DX: Z48.02 Encounter for removal of sutures (principal)
CPT/HCPCS: 99282

== ENCOUNTER 2022-08-09 12:40 | Outpatient (REF) | payer OTHER, SELFPAY ==
--- NOTE | ~2022-08-09 | MM_ITS ---
EXAMINATION: MM DIAGNOSTIC DIGITAL BREAST TOMOSYNTHESIS, BILATERAL US DIAGNOSTIC ULTRASOUND BREAST, RIGHT CLINICAL INFORMATION: 66-year-old with palpable fullness posterior upper outer right breast noted for approximately 3 weeks. Recent fall noted around same time. No ecchymosis. Due for yearly. The lifetime risk of breast cancer based on the Tyrer-Cuzick Model is 4%. COMPARISON: Prior mammography exams including most recent 10/20/2021. TECHNIQUE: Digital breast tomosynthesis is performed in both the craniocaudal and mediolateral oblique views along with computer-aided detection (CAD). Synthesized 2D images are generated from the tomosynthesis. Additional views are obtained: Exaggerated right CC, spot right MLO. Ultrasound right breast is targeted to the upper outer quadrant using grayscale imaging and color Doppler without and with harmonics. FINDINGS: There are scattered areas of fibroglandular density (ACR BI-RADS breast composition Category b). Left: Left breast shows no significant changes from prior studies. No significant mass, developing density, architectural abnormality, or abnormal calcifications. Left axilla and skin contours are unremarkable. Right: In the area of clinical symptoms posterior upper outer right breast there is subtle increased attenuation with mixed benign fatty tissue composition along with vague intermediate attenuation. There is no definable three-dimensional lesion. The finding has a rectangular bandlike distribution on spot right MLO view measuring 0.8 cm in height by 2.4 cm across. No skin thickening or retraction. Right axilla is unremarkable. Ultrasound right breast demonstrates a vague area of increased echogenicity in continuity with the deep dermis in the area of clinical symptoms of similar size to that on mammography. Otherwise, there is no cystic or solid mass. No hyperemia on color Doppler. No edema tracking in soft tissue planes. Management: Results are discussed with the patient at time of visit, using an second chef. The right breast findings are suggestive of sequela from prior trauma. Although there is no clinically apparent ecchymosis, there has been recent history of fall(s). Recommend short interval follow-up right mammography in 3 months, ultrasound if warranted. MM/MM tomosynthesis diagnostic BI IMPRESSION: Right: -Suspect probable benign posttraumatic changes posterior upper outer right breast corresponding to area of clinical symptoms. Left: -No mammographic evidence of malignancy. ASSESSMENT: BI-RADS 3: Probably Benign RECOMMENDATION: -Diagnostic right mammography in 3 months. This patient's information was entered into a reminder system with a target due date for their next mammogram.
== END 2022-08-09 12:41 | disposition home or self-care (01) ==
LOC: HO.MAMMO 12:40
PROVIDERS: Visit Provider General Practice
DX: N63.11 Unspecified lump in the right breast, upper outer quadrant (principal)
CPT/HCPCS: 76642; 77062; 77066

== ENCOUNTER 2022-08-19 11:59 | Outpatient (REF) | payer OTHER, SELFPAY ==
--- NOTE | ~2022-08-19 | US_ITS ---
EXAMINATION: US RETROPERITONEAL LIMITED (RENAL ONLY) CLINICAL INFORMATION: Calculus of ureter. COMPARISON: CT abdomen and pelvis 05/31/2022. Ultrasound abdomen complete 05/06/2022. Renal ultrasound 01/05/2022. X-ray abdomen 03/05/2020. TECHNIQUE: Real-time imaging of the kidneys. FINDINGS: RIGHT KIDNEY: 12.7 x 5.6 x 7.5 cm (SAG x AP x TRV). The kidney is normal in size, contour, and echogenicity. Renal cortical thickness is normal. No focal parenchymal lesions or hydronephrosis. There are echogenic foci representing calculi seen within the mid to lower pole with one measuring approximately 6 mm in diameter and the other approximately 8 mm diameter. There appear to be regions of cortical thinning/scar present. There is some mild fullness within the upper pole collecting system. LEFT KIDNEY: 13.9 x 5.3 x 6.8 cm (SAG x AP x TRV). The kidney is normal in size, contour, and echogenicity. Renal cortical thickness is normal. No focal parenchymal lesions or hydronephrosis. There is mild renal pelvic fullness. There is a 5 x 6 mm echogenic focus in the mid to lower pole consistent with a nonobstructing calculus. US/US renal BI IMPRESSION: Bilateral nephrolithiasis without new definite evidence of obstructive uropathy. There remains some mild collecting system fullness.
== END 2022-08-19 12:00 | disposition home or self-care (01) ==
LOC: HO.US 11:59
PROVIDERS: PCP Internal Medicine; Visit Provider Urology
DX: N20.1 Calculus of ureter (principal); N18.30 Chronic kidney disease, stage 3 unspecified
CPT/HCPCS: 76775

== ENCOUNTER 2022-08-25 12:54 | Outpatient (REF) | payer OTHER, SELFPAY ==
--- NOTE | ~2022-08-25 | CT_ITS ---
EXAMINATION: CT CHEST WITHOUT CONTRAST CLINICAL INFORMATION: Solitary pulmonary nodule COMPARISON: Previous chest CT most recent March 2020 and chest x-ray December 2021 TECHNIQUE: Multidetector volumetric CT imaging of the chest was done. Axial MIP volume rendering provided. Sagittal and coronal reformatted images were obtained. This CT examination was performed using dose optimization techniques as appropriate, variously including the following: *Automated exposure control *Adjustment of mA and/or kV according to patient size (this includes techniques or standardized protocols for targeted exams where dose is matched to indication/reason for exam; i.e. 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 There is faint residual ground glass attenuation seen in some of these areas, predominantly in both lower lobes and lingula, question representing residual scarring versus pneumonitis. There is a 7 mm calcified left upper lobe nodule axial image 78 series 5 that is stable. There is a 4 mm noncalcified right middle lobe nodule axial image 214 series 5 that is stable. MEDIASTINUM: The heart is slightly enlarged. No pericardial effusion. Mild coronary artery calcification. No enlarged hilar or mediastinal lymph nodes. Normal caliber thoracic aorta. Visualized thyroid gland is normal. CORONARY ARTERY CALCIFICATION: Mild PLEURA: There is no pleural effusion. No pleural mass or thickening. AXILLA: Upper normal size bilateral axillary lymph nodes. No enlarged axillary lymph nodes. UPPER ABDOMEN: Central cystic low-attenuation in the upper pole the right kidney questionable for calyceal dilatation/mild hydronephrosis. There is a right upper pole renal cortical thinning or scarring. OSSEOUS STRUCTURES: Degenerative changes of the spine. CT/CT chest wo IV con IMPRESSION: Stable calcified left upper lobe and noncalcified right middle lobe nodules. Faint increased attenuation predominantly in both lower lobes and left upper lobe in areas of denseer airspace disease March 2020, question representing residual scarring versus pneumonitis. Fleischner guidelines were followed.
== END 2022-08-25 12:55 | disposition home or self-care (01) ==
LOC: HO.CT 12:54
PROVIDERS: PCP Internal Medicine; Visit Provider Hospitalist
DX: R91.1 Solitary pulmonary nodule (principal); R93.89 Abnormal findings on diagnostic imaging of other specified body structures
CPT/HCPCS: 71250

== ENCOUNTER 2022-08-31 07:08 | Outpatient (REF) | payer OTHER, SELFPAY ==
[2022-08-31 08:18] LABS: Anion Gap 11 (12-20); Blood Urea Nitrogen 31 mg/dL (9-16); Calcium 8.5 mg/dL (8.4-10.2); Carbon Dioxide 27 mmol/L (22-29); Chloride 107 mmol/L (96-108); Estimated Glomerular Filt Rate 17; Glucose Random 88 mg/dL (60-115); Potassium 3.7 mmol/L (3.3-5.1); Sodium 141 mmol/L (135-145)
[2022-08-31 09:26] LABS: Protein/Creatinine Ratio, Ur 14.07 (<0.2); Total Protein Urine Random 871 mg/dL (<12)
[2022-09-03 05:43] LABS: Calcium (PTHI) 7.9 mg/dL (8.6-10.4); PTHI 145 pg/mL (16-77)
[2022-09-06 12:54] LABS: PEU-Rand. Prot/Creat Ratio 17469 mg/g creat (24-184); PEU-Random Ur. Gamma Globulin 22 %; PEU-Random Urine A1 Globulin 9 %; PEU-Random Urine A2 Globulin 12 %; PEU-Random Urine Albumin 41 %; PEU-Random Urine Beta Globulin 16 %; PEU-Random Urine Creatinine 64 mg/dL (20-275); PEU-Random Urine Protein 1118 mg/dL (5-24)
[2022-09-06 22:49] LABS: Prot Elec - Albumin 2.3 g/dL (3.8-4.8); Prot Elec - Alpha1 0.3 g/dL (0.2-0.3); Prot Elec - Beta 1 0.4 g/dL (0.4-0.6); Prot Elec - Beta 2 0.4 g/dL (0.2-0.5); Prot Elec - Total Protein 5.3 g/dL (6.1-8.1)
== END 2022-08-31 07:09 | disposition home or self-care (01) ==
LOC: HO.LAB 07:08
PROVIDERS: PCP General Practice; Visit Provider Internal Medicine Hypertension Specialist
DX: N18.30 Chronic kidney disease, stage 3 unspecified (principal)
CPT/HCPCS: 80048; 82570; 83970; 84156; 84165; 84166

== ENCOUNTER 2022-09-09 11:09 | Outpatient (AMB) | payer OTHER, SELFPAY ==
--- NOTE | 2022-09-09 11:03 | A.OFFVIS_ITS ---
Intake Intake Visit Reasons: 3m/US(set) Intake Note: Pt presents to the office today for a 3 month US follow-up. Allergies egg Allergy (Mild, Verified 09/09/22 11:03) Abdominal Pain PFSH Medical History Acute hypoxemic respiratory failure due to COVID-19 Asthma Brain tumor (benign) CKD (chronic kidney disease) stage 3, GFR 30-59 ml/min COVID-19 Depression Diabetes Gastritis HLD (hyperlipidemia) Kidney stone Lower extremity edema Pneumonia Pulmonary nodule Seizure Surgical History H/O cystoscopy H/O hernia repair H/O lithotripsy H/O ureteroscopy History of cholecystectomy S/P ureteral stent placement Family History Father CAD (coronary artery disease) Brother Lung cancer Sister Kidney stone Social History Household Members: Children Housing: Apartment Do you presently have visiting nurse or other home services: Yes (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
--- NOTE | 2022-09-09 11:11 | MHC.OFFVIS ---
Intake Intake Visit Reasons: 3m/US(set) Intake Note: Pt presents to the office today for a 3 month US follow-up. Allergies egg Allergy (Mild, Verified 09/09/22 11:12) Abdominal Pain Medication List - Last Reconciled 09/09/22 by Jeffrey Lobato MD acetaminophen 500 mg PO Q6H PRN albuterol sulfate 90 mcg/actuation (Proventil HFA) 2 puffs inhalation Q4-6H PRN albuterol sulfate 2.5 mg inhalation TID PRN amlodipine 10 mg PO DAILY aspirin 81 mg PO DAILY atorvastatin 1 tab PO DAILY blood pressure test kit-large As directed blood sugar diagnostic (FreeStyle Lite Strips) blood-glucose meter (FreeStyle [place] Lite kit) diclofenac sodium 1% 2 grams topical BEDTIME PRN fluticasone furoate-vilanterol 100-25 mcg/dose (Breo Ellipta) 1 inh inhalation DAILY 30 days insulin glargine U-300 conc (Toujeo SoloStar U-300 Insulin) 30 units subcut BID insulin lispro (Humalog KwikPen U-200 Insulin) 16 units (0.08 mL) subcut TIDAC lacosamide (Vimpat) 200 mg PO BID lancets (FreeStyle Lancets) lancets (TRUEplus Lancets) As directed losartan 100 mg PO QAM nebulizers As directed omeprazole 40 mg PO DAILY oxybutynin chloride ER 1 tab PO DAILY sucralfate 1 g PO QID trazodone 100 mg PO BEDTIME HPI HPI Comments History of Present Illness Details Lori is a pleasant female. She is a patient of Dr. Ibrahim. She seen for the following urologic conditions - nephrolithiasis Albanian translation provided in office by qualified medical researcher Here for stent removal Question of possible fungal infection 3 dose Diflucan Three month follow-up imaging Nephrolithiasis Presentation through emergency room for right 1 cm UPJ stone Interventions - 10/04 right ureteroscopy with laser lithotripsy - 06/05 right ureteroscopy with laser Imaging - 10/04 CT with multiple 1cm stones in right kidney - 12/04 US right 1.2 cm stone - 08/05 bilateral 5 mm stones Stone composition - 10/04 80% carbonate apatite, 20% struvite Labs - 12/04 1.4, 09/04 2.8 Therapeutic plan - right ESWL PFSH Medical History Acute hypoxemic respiratory failure due to COVID-19 Asthma Brain tumor (benign) CKD (chronic kidney disease) stage 3, GFR 30-59 ml/min COVID-19 Depression Diabetes Gastritis HLD (hyperlipidemia) Kidney stone Lower extremity edema Pneumonia Pulmonary nodule Seizure Surgical History H/O cystoscopy H/O hernia repair H/O lithotripsy H/O ureteroscopy History of cholecystectomy S/P ureteral stent placement Family History Father CAD (coronary artery disease) Brother Lung cancer Sister Kidney stone Social History Household Members: Children Housing: Apartment Do you presently have visiting nurse or other home services: 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) Alcohol intake: never Patient Tobacco Use Status: Never used Tobacco e-Cigarette/Vaping Use: Never Used Advance Directives Date on File: 12/20/21 service: No Current occupational status: unemployed Review of Systems Const Denies chills and Denies fever(s) Card Reports no additional complaints and Denies syncope Resp Denies cough GI Denies abdominal pain and Denies heartburn Reports as per HPI and Denies change in libido Neuro Denies syncope Psych Denies change in libido Endo Denies change in libido Physical Exam Const General: cooperative, healthy appearing, comfortable and no acute distress Orientation/consciousness: patient oriented x3 HEENT Face and sinus: Yes normal facial exam Mouth: moist mucous membranes Neck Neck: Yes normal visual inspection, Yes full ROM and Yes trachea midline Chest Chest palpation & inspection: normal inspection of the chest Resp Effort & Inspection: normal respiratory effort, able to speak in complete sentences and no respiratory distress GI Inspection: Yes normal to inspection Back/Spine/Pelvis Cervical Spine: normal cervical lordosis Thoracic/Lumbar Spine: thoracic and lumbar spine normal to inspection Skin General skin exam: no rashes or lesions noted Neuro General: patient oriented x3, gait normal, tone normal and moves all extremities Extrem General: Yes normal to inspection and Yes capillary refill normal Assessment & Plan Assessment & Plan (1) Kidney stone: Comment: 10/04 Predominant carbonate apatite Code(s): N20.0 - Calculus of kidney Plan Twelve month follow-up Orders: Orders US renal BI 364 Days N20.0 - Calculus of kidney Patient Instructions: Imaging studies, laboratory and physical exam results were discussed and reviewed in detail. No major barriers to patient understanding were identified. An opportunity to ask questions regarding the treatment plan was provided. All questions were answered. The patient expressed understanding and agreement with the above treatment plan. The patient is aware they should contact our office by phone for worsening of their current condition or the appearance of new urologic symptoms. Compliance is encouraged with any medications and followup testing that is ordered. It is a privilege to participate in the urologic care of your patient. If you have any questions or concerns regarding treatment for the above conditions, or other urologic issues, please do not hesitate to contact me. The office telephone contact is [phone]. This note is constructed using voice recognition software. While every effort has been made to ensure accuracy operating room coordinator errors may have been included. Yours sincerely, Dr Jeffrey Lobato MD, [facility] - Urology Providers of Expert, Compassionate Care for the Genitourinary System Coding Level of Care Code Est Pt Level 3 (88804) Diagnoses Kidney stone N20.0
== END 2022-09-09 11:44 | disposition home or self-care (01) ==
PROVIDERS: Visit Provider Urology
DX: N20.0 Calculus of kidney (principal)
CPT/HCPCS: 99213

== ENCOUNTER → 2022-09-09 11:09 | Outpatient (BNVA) | payer OTHER, SELFPAY | PROVIDERS: Visit Provider Urology | DX: N20.0 Calculus of kidney (principal) | CPT/HCPCS: 99212 ==

== ENCOUNTER 2022-11-01 09:05 | Outpatient (REF) | payer OTHER, SELFPAY ==
[2022-11-01 12:18] LABS: Anion Gap 11 (12-20); Blood Urea Nitrogen 41 mg/dL (9-16); Calcium 8.7 mg/dL (8.4-10.2); Carbon Dioxide 20 mmol/L (22-29); Chloride 112 mmol/L (96-108); Estimated Glomerular Filt Rate 12; Potassium 4.2 mmol/L (3.3-5.1); Sodium 139 mmol/L (135-145)
== END 2022-11-01 09:06 | disposition home or self-care (01) ==
LOC: HO.HHCL 09:05
PROVIDERS: Visit Provider Internal Medicine Hypertension Specialist
DX: N18.4 Chronic kidney disease, stage 4 (severe) (principal)
CPT/HCPCS: 36415; 80051; 82310; 82565; 84520

== ENCOUNTER 2022-11-23 16:13 | Outpatient (REF) | payer OTHER, SELFPAY ==
[2022-11-23 18:05] LABS: Anion Gap 16 (12-20); Blood Urea Nitrogen 59 mg/dL (9-16); Carbon Dioxide 16 mmol/L (22-29); Chloride 116 mmol/L (96-108); Glucose Random 114 mg/dL (60-115); Potassium 5.8 mmol/L (3.3-5.1); Sodium 142 mmol/L (135-145)
[2022-11-23 18:10] LABS: Estimated Glomerular Filt Rate 11
== END 2022-11-23 16:14 | disposition home or self-care (01) ==
LOC: HO.HHCL 16:13
PROVIDERS: Visit Provider General Practice
DX: E11.65 Type 2 diabetes mellitus with hyperglycemia (principal); Z79.4 Long term (current) use of insulin
CPT/HCPCS: 36415; 80048

== ENCOUNTER 2022-11-24 11:41 | Inpatient (IN) | payer OTHER, SELFPAY ==
--- NOTE | ~2022-11-24 | US_ITS ---
EXAMINATION: US RETROPERITONEAL LIMITED (RENAL ONLY) CLINICAL INFORMATION: MICHAEL. COMPARISON: Ultrasound retroperitoneal limited (renal only) 08/19/2022. CT abdomen and pelvis without contrast 05/31/2022. X-ray abdomen complete 03/05/2020. TECHNIQUE: Real-time imaging of the kidneys. Technically limited study secondary to body habitus. FINDINGS: RIGHT KIDNEY: 13.8 x 6.6 x 6.5 cm (SAG x AP x TRV). Lower pole 0.3 cm calculus. Minimal perinephric free fluid. Anechoic right renal midpole peripelvic structures may represent mild caliectasis versus peripelvic cysts. Diffuse renal cortical thinning. LEFT KIDNEY: 12.7 x 6.4 x 5.3 cm (SAG x AP x TRV). No hydronephrosis. No renal calculi. Diffuse renal cortical thinning. Limited visualization. US/US renal BI IMPRESSION: 1. Anechoic right renal midpole peripelvic structures may represent mild residual caliectasis versus peripelvic cysts. No renal calculi. 2. Diffuse bilateral renal cortical thinning.
--- NOTE | ~2022-11-24 | XR_ITS ---
EXAMINATION: XR CHEST CLINICAL INFORMATION: Shortness of breath. COMPARISON: 08/25/2022 and 01/11/2022 TECHNIQUE: 2 views of the chest were obtained. FINDINGS: The lungs are moderately expanded. Stable pleural thickening/scarring at the left apex. No pleural effusion. Cardiac silhouette is unchanged. XR/XR chest 2V IMPRESSION: No acute abnormality.
--- NOTE | ~2022-11-24 | CT_ITS ---
EXAMINATION: CT ABDOMEN AND PELVIS WITHOUT CONTRAST CLINICAL INFORMATION: Left flank pain. Rule out stone. COMPARISON: Previous renal ultrasound most recent from the same day. CT of the abdomen and pelvis May 2022. TECHNIQUE: Multidetector volumetric imaging was performed from the superior aspect of the liver through the pubic symphysis. Sagittal and coronal reformatted images were obtained on the technologist's workstation. This CT examination was performed using dose optimization techniques as appropriate, variously including the following: *Automated exposure control *Adjustment of mA and/or kV according to patient size (this includes techniques or standardized protocols for targeted exams where dose is matched to indication/reason for exam; i.e. extremities or head) *Use of iterative reconstruction technique DLP: 1396 mGy-cm FINDINGS: LUNG BASES: The visualized lung bases are unremarkable. LIVER, GALLBLADDER, AND BILIARY TREE: The liver is normal in size, shape, and attenuation. No focal hepatic lesion or biliary ductal dilatation is present. The gallbladder is not seen and may have been removed. PANCREAS: Unremarkable. SPLEEN: Unremarkable. ADRENAL GLANDS: Unremarkable. KIDNEYS AND URETERS: There is bilateral renal cortical thinning. There are multiple right renal stones, largest measuring 3 mm in the lower pole. There multiple small left renal stones, largest measuring 2 mm in the upper pole.. No hydronephrosis. No ureteral dilatation or ureteral stone. BLADDER: Unremarkable. GASTROINTESTINAL TRACT: The small and large bowel are unremarkable. The appendix is unremarkable. ABDOMINAL WALL: There is a left ventral hernia containing transverse colon. Inferiorly there is a small question incisional left ventral hernia containing fat. Tract extends to the left abdominal wall and there is a skin thickening and defect in the overlying skin questionable for old ostomy site. Clinical correlation recommended. There is no evidence of obstruction. There is a small umbilical hernia containing fat. There is diffuse subcutaneous edema. LYMPH NODES: Upper normal-size retroperitoneal, periportal and bilateral inguinal lymphadenopathy. There is an enlarged right common femoral lymph node measuring 1.7 cm in short axis. Lymph nodes appear increased from May 2022. No ascites. VASCULAR: Atherosclerotic disease. No aneurysm. PELVIC VISCERA: Unremarkable. OSSEOUS STRUCTURES: Unremarkable. CT/CT abdomen pelvis wo IV con IMPRESSION: Bilateral renal stones. No hydronephrosis, ureteral dilatation or ureteral stone. Bilateral renal cortical thinning. Left ventral hernia containing transverse colon. No evidence of obstruction. Question small incisional hernia in the left lower abdominal wall. Clinical correlation recommended. Anasarca. Enlarged right common femoral lymph node. Other smaller upper normal-size retroperitoneal periportal and bilateral inguinal lymph nodes. Lymph nodes appear increased from May 2022 Fleischner guidelines were followed.
--- NOTE | ~2022-11-24 | XR_ITS ---
EXAMINATION: XR SHOULDER, RIGHT CLINICAL INFORMATION: Shoulder pain COMPARISON: Chest radiograph 01/11/2022 TECHNIQUE: Three views of the right shoulder. FINDINGS: Degenerative changes are present in the shoulder. There is superior subluxation at the glenohumeral joint with erosion of the undersurface of the acromium. No fractures or dislocations. Findings appear fairly similar to 01/11/2022. XR/XR shoulder RT min 2V IMPRESSION: Degenerative changes in the shoulder with rotator cuff disease.
[2022-11-24 11:55] VITALS: BP 166/66; PULSE 84; RESP 22; TEMP 36.6; O2SAT 99; BMI 50.8
--- NOTE | 2022-11-24 11:57 | ED_ITS ---
HPI - General Adult General Chief complaint: General Medical Stated complaint: kidney issues, liquid retention Time Seen by Provider: 11/24/22 13:41 Source: patient Mode of arrival: ambulatory Limitations: no limitations History of Present Illness HPI narrative: 66-year-old female in known chronic kidney disease stage 3 as well as chronic lower extremity edema presents to emergency department after being told that she has has fluid in her lungs on heart worsening kidney function. She saw her PCP Dr. Teixeira. Patient had outpatient labs done and sent here for admission. Patient states she has noticed increased swelling she denies any fevers chills nausea vomiting or diarrhea. [facility] when she had a kidney stone and abdominal pain. She has no pain today. She denies flank pain but noticed increased swelling and dyspnea with exertion. Onset (ago): day(s) Related Data Home Medications Medication Instructions Recorded Confirmed blood sugar diagnostic (FreeStyle 03/28/20 09/09/22 Lite Strips) blood-glucose meter (FreeStyle 03/28/20 09/09/22 [place] Lite kit) lacosamide 200 mg tablet (Vimpat) 200 mg PO BID 03/28/20 09/09/22 lancets 28 gauge (FreeStyle 03/28/20 09/09/22 Lancets) insulin glargine U-300 conc 300 30 unit subcut BID 03/29/20 09/09/22 unit/mL (1.5 mL) subcutaneous pen (Toujeo SoloStar U-300 Insulin) omeprazole 40 mg capsule,delayed 40 mg PO DAILY 10/02/21 09/09/22 release blood pressure test kit-large #1 ea 10/12/21 09/09/22 albuterol sulfate 90 mcg/actuation 2 puff inhalation Q4-6H PRN 12/20/21 09/09/22 aerosol inhaler (Proventil HFA) Shortness Of Breath atorvastatin 80 mg tablet 1 tab PO DAILY 12/20/21 09/09/22 oxybutynin chloride 10 mg 1 tab PO DAILY 12/20/21 09/09/22 tablet,extended release 24 hr albuterol sulfate 2.5 mg/3 mL 2.5 mg inhalation TID PRN wheezing 01/20/22 09/09/22 (0.083 %) solution for nebulization nebulizers 01/20/22 09/09/22 amlodipine 10 mg tablet 10 mg PO DAILY 05/29/22 09/09/22 aspirin 81 mg tablet,delayed 81 mg PO DAILY 05/29/22 09/09/22 release losartan 100 mg tablet 100 mg PO QAM 05/29/22 09/09/22 sucralfate 1 gram tablet 1 g PO QID 05/29/22 09/09/22 diclofenac sodium 1 % topical gel 2 g topical BEDTIME PRN 06/07/22 09/09/22 lancets 33 gauge (TRUEplus Lancets) #100 ea 06/07/22 09/09/22 trazodone 50 mg tablet 100 mg PO BEDTIME 06/07/22 09/09/22 Previous Rx's Medication Instructions Recorded insulin lispro 200 unit/mL (3 mL) 16 unit (0.08 mL) subcut TIDAC #6 10/05/21 subcutaneous pen (Humalog KwikPen mL U-200 Insulin) fluticasone furoate 100 1 inh inhalation DAILY 30 days #60 01/20/22 mcg-vilanterol 25 mcg/dose ea inhalation powder (Breo Ellipta) acetaminophen 500 mg tablet 500 mg PO Q6H PRN fever or pain 02/24/22 #14 tabs Allergies Allergy/AdvReac Type Severity Reaction Status Date / Time egg Allergy Mild Abdominal Verified 11/24/22 11:55 Pain Review of Systems 2 Review of Systems: Review of systems: General: Patient denies any fever chills recent illness or falls Musculoskeletal: Denies back pain or body aches or other injuries HEENT: denies headache, runny nose, ear pain Respiratory: denies shortness of breath, cough Cardiovascular: no chest pain or palpitations : denies dysuria, frequency Abdomen: no nausea vomiting denies abdominal pain Extremities: bilateral leg swelling, no pain Skin: no diaphoresis Yes all other systems are reviewed and are negative PMFSH Past Medical History Medical History Acute hypoxemic respiratory failure due to COVID-19 Asthma Brain tumor (benign) CKD (chronic kidney disease) stage 3, GFR 30-59 ml/min COVID-19 Depression Diabetes Gastritis HLD (hyperlipidemia) Kidney stone Lower extremity edema Pneumonia Pulmonary nodule Seizure Surgical History H/O cystoscopy H/O hernia repair H/O lithotripsy H/O ureteroscopy History of cholecystectomy S/P ureteral stent placement Family History Family History Father CAD (coronary artery disease) Brother Lung cancer Sister Kidney stone Social History Social History Household Members: Children Housing: Apartment Do you presently have visiting nurse or other home services: Yes ([employer] 4hrs/day everyday) Alcohol intake: never Patient Tobacco Use Status: Never used Tobacco e-Cigarette/Vaping Use: Never Used Advance Directives: Yes Advance Directives on File: Yes Advance Directives Date on File: 12/20/21 service: No Current occupational status: unemployed Physical Exam ED Vital Signs: Vital Signs - 24 hr 11/24/22 11:55 11/24/22 14:06 Temperature 98 F Pulse Rate 84 89 Respiratory Rate 22 H 20 Blood Pressure 166/66 H 167/69 H Pulse Oximetry 99 96 Oxygen Delivery Method Room Air Room Air BMI result Body Mass Index 50.8 General: Well-appearing well-nourished in no signs of distress HEENT: Normocephalic atraumatic Neck: No signs of JVD, no masses no tenderness or lymphadenopathy Cardiovascular: Regular rate and rhythm Respiratory: Clear to auscultation bilaterally Abdomen: Obese soft nontender no masses Extremities: Normal pedal pulses2 + edema to bilateral legs Skin: Dry warm no rashes Back: No tenderness full ROM Course Course Course Narrative: RME- 66 year old female presents for evaluation of shortness of breath and swelling in her legs. Reports history of bad kidneys. Plan for EKG, labs, chest x-ray 13:10- Call from the lab, the patient's glucose was 43, she was brought back for a POC check that was 47. She was provided orange juice and the charge nurse was made aware. Medical Decision Making Medical Decision Making [facility] Narrative: I will patient from x-ray and labs reassessed with patient some fluids Differential Diagnosis Differential Diagnoses: The differential diagnosis associated with the presentation includes Chronic kidney disease CHF pneumonia sepsis cellulitis less likely DVT patient has no pain to lower extremities she is not Admission/Observation Consideration of admission/observation: Escalation of care including admission/observation considered She will be admitted for acute on chronic kidney disease with chf and anemia Consult Healthcare Provider Management of the patient was discussed with: Hospitalist Lab Data MDM Lab Attestation statement: I reviewed the patient's lab results. Baseline anemia slightly worse than normal. I will defer to the hospitalist about potential transfusion I feel waiting to repeat hemoglobin in the morning is reasonable. Creatinine appears slightly worse than baseline. BNP is not too high I think she will tolerate some fluids 11/24/22 12:12 11/24/22 12:12 Labs: Lab Results 11/24/22 11/24/22 11/24/22 Range/Units 12:12 13:10 13:50 WBC 9.6 (4.8-10.8) X10*3/uL RBC 2.54 L (4.20-5.50) X10*6/uL Hgb 7.6 L (12.0-16.0) g/dl Hct 24.2 L (37.0-47.0) % MCV 95.3 (80.0-98.0) fL MCH 29.9 (27.0-33.0) pg MCHC 31.4 (31.0-35.0) g/dl RDW 14.0 (11.0-16.0) % Plt Count TNP MPV TNP Immature Gran % (Auto) 1.0 H (0.0-0.4) % Neut % (Auto) 78.3 H (45-73) % Lymph % (Auto) 12.6 L (20-40) % [place] % (Auto) 4.2 (2-11) % Eos % (Auto) 3.0 (0-4) % Baso % (Auto) 0.9 (0-2) % Lymph # (Auto) 1.2 (1.2-4.9) X10*3/uL [place] # (Auto) 0.4 (0.1-1.2) X10*3/uL Eos # (Auto) 0.3 (0.0-0.4) X10*3/uL Baso # (Auto) 0.1 (0.0-0.2) X10*3/uL Abs Immat Gran (auto) 0.10 H (0.00-0.03) X10*3/uL Absolute Neuts (auto) 7.5 (2.0-8.3) x10*3/uL Absolute Nucleated RBC 0.000 (0.0-0.012) X10*3/uL Nucleated RBC % (auto) 0.0 (0.0-0.2) /100WBC Smear Tech's Comments VERIFIED Sodium 142 (135-145) mmol/L Potassium 4.9 (3.3-5.1) mmol/L Chloride 118 H (96-108) mmol/L Carbon Dioxide 15 L (22-29) mmol/L Anion Gap 14 (12-20) BUN 57 H (9-16) mg/dL Creatinine 4.06 H* (0.5-1.4) mg/dL Estim Creat Clear Calc 16.8 Estimated GFR 11 POC Glucose 47 L* 64 (60-115) mg/dL Random Glucose 43 L* (60-115) mg/dL Calcium 8.7 (8.4-10.2) mg/dL Total Bilirubin 0.2 (0.0-1.0) mg/dL AST 16 (5-31) U/L ALT 11 (0-31) U/L Alkaline Phosphatase 118 H (39-117) U/L Troponin I High Sens 11.1 (<3.5-17.0) ng/L B-Natriuretic Peptide 225 H (<100) pg/mL Total Protein 6.5 (6.5-8.0) g/dL Albumin 3.1 L (3.5-5.0) g/dL Lipase 20 (8-78) U/L COVID-19 (BIRDIE) Negative (Negative) COVID-19 Clin Com See Note Independent Interpretation I performed an independent interpretation of an: Plain X-Ray Radiology Impression Discussion of test interpretation with radiology: I have reviewed the radiologist's reading. External Record Review External record reviewed: Inpatient record and Office record Chronic Conditions Patient?s care impacted by: Diabetes CKd stage 4 lower extremity edema Discharge Plan Discharge Clinical Impression: CKD (chronic kidney disease) stage 3, GFR 30-59 ml/min, Lower extremity edema, Acute kidney injury, Acute dehydration, Anemia Patient Disposition: Admitted As Inpatient
--- NOTE | 2022-11-24 11:59 | ECG_ITS ---
Test Reason : PAIN Blood Pressure : / mmHG Vent. Rate : 082 BPM Atrial Rate : 082 BPM P-R Int : 156 ms QRS Dur : 090 ms QT Int : 370 ms P-R-T Axes : 051 010 033 degrees QTc Int : 432 ms Normal sinus rhythm Normal ECG No significant changes seen Referred By: Greg Mcrae Electronically Signed By:YAHIR RIVAS MD
[2022-11-24 12:30] LABS: Basophils Absolute Auto 0.1 X10*3/uL (0.0-0.2); Basophils Percent Auto 0.9 % (0-2); Eosinophils Absolute Auto 0.3 X10*3/uL (0.0-0.4); Hematocrit 24.2 % (37.0-47.0); Hemoglobin 7.6 g/dl (12.0-16.0); Lymphocytes Absolute Auto 1.2 X10*3/uL (1.2-4.9); Lymphocytes Percent Auto 12.6 % (20-40); MANUAL DIFF FLAG SCAN; Mean Corpuscular HGB Conc 31.4 g/dl (31.0-35.0); Mean Corpuscular Hemoglobin 29.9 pg (27.0-33.0); Mean Corpuscular Volume 95.3 fL (80.0-98.0); Monocytes Absolute Auto 0.4 X10*3/uL (0.1-1.2); Monocytes Percent Auto 4.2 % (2-11); Neutrophils Absolute Auto 7.5 x10*3/uL (2.0-8.3); Neutrophils Percent Auto 78.3 % (45-73); PLT CLUMP 1; Red Blood Count 2.54 X10*6/uL (4.20-5.50); SCAN SMEAR FLAG 1
[2022-11-24 12:44] LABS: B Type Natriuretic Peptide 225 pg/mL (<100); COVID-19 Test Negative (Negative); IDNOW Serial# 9DB6401D
[2022-11-24 12:46] LABS: Troponin-I High Sensitivity 11.1 ng/L (<3.5-17.0)
[2022-11-24 12:48] LABS: White Blood Count 9.6 X10*3/uL (4.8-10.8)
[2022-11-24 12:49] LABS: SLIDE REVIEW VERIFIED
[2022-11-24 13:03] LABS: Alanine Aminotransferase 11 U/L (0-31); Albumin Level 3.1 g/dL (3.5-5.0); Alkaline Phosphatase 118 U/L (39-117); Anion Gap 14 (12-20); Aspartate Amino Transferase 16 U/L (5-31); Bilirubin Total 0.2 mg/dL (0.0-1.0); Blood Urea Nitrogen 57 mg/dL (9-16); Calcium 8.7 mg/dL (8.4-10.2); Carbon Dioxide 15 mmol/L (22-29); Chloride 118 mmol/L (96-108); Creatinine Clr Calc Pharmacy 16.8; Estimated Glomerular Filt Rate 11; Glucose Random 43 mg/dL (60-115); Lipase 20 U/L (8-78); Potassium 4.9 mmol/L (3.3-5.1); Sodium 142 mmol/L (135-145); Total Protein 6.5 g/dL (6.5-8.0)
[2022-11-24 13:19] LABS: Glucose, Whole Blood 47 mg/dL (60-115)
--- NOTE | 2022-11-24 13:43 | PC.NURSE ---
1310 - PT WAS IN WAITING ROOM. RECEIVED CALL FROM LAB REGARDING LOW GLUCOSE LEVEL. PT CALLED INTO TRIAGE. POC DONE. REPEAT POC 47. RE-EVAL DONE BY FELIPE REEVES. JUICE GIVEN. PT AWAKE, ALERT AND ORIENTED. FAMILY MEMBER AT BEDSIDE. UPDATED ON RESULTS. AWARE OF CARE PLAN.
[2022-11-24 13:56] LABS: Glucose, Whole Blood 64 mg/dL (60-115)
[2022-11-24 14:06] VITALS: BP 167/69; PULSE 89; RESP 20; O2SAT 96
--- NOTE | 2022-11-24 15:02 | PHA.MEDREC ---
Pharmacy Consult ? Medication Reconciliation Pharmacy has completed the medication reconciliation. Family had list from the pharmacy on his phone. A few medication on the list were from [facility] such a duloxetine, famotidine. Family did confirm patient no longer on vimpat. Patient stopped taking ozempic due to side effects. Patient has not start doxycyline yet. Shantelle Otero, PharmD
--- NOTE | 2022-11-24 15:07 | PC.NURSE ---
Pt given sandwich and OJ after second POC check. Pt reports being told to come in by primary care d/t labs. Pt does report chronic back pain, HORN, no cough, and increased BLE swelling. +4 pitting on assessment. LS clear throughout. Breathing is midly labored on rest. NSR on monitor. Skin pwd. Family at bedside.
--- NOTE | 2022-11-24 15:10 | P.HPHOSP_ITS ---
History of Present Illness Date of Service: 11/24/22 Chief Complaint: Sent by PcP for swelling in legs and renal failure 66yo female with DM2, CKD3, benign brain tumor, seizure disorder, HTN, nephrolithiasis, morbid obesity. She accompanied by her daughter and son-in-law. Patient saw her primary care physician yesterday for routine followup and was noted to have increased leg edema and reportedly that she had fluid in her lungs. Lab work were done and that she was instructed to come to the emergency room because her renal function was worse and concern of hreat failure. Creatinine is 4 baseline 2.5 to 3 Review of Systems 2 Review of Systems: Gen: no fever Resp: no sob, no cough CV: no chest, +HORN, + leg edema GI: No n/v, no abd pain Neuro: No confusion Yes all other systems are reviewed and are negative [facility] Medical History Brain tumor (benign) Lower extremity edema Pneumonia Asthma Pulmonary nodule HLD (hyperlipidemia) CKD (chronic kidney disease) stage 3, GFR 30-59 ml/min Seizure Acute hypoxemic respiratory failure due to COVID-19 COVID-19 Kidney stone Depression Gastritis Diabetes Family History Father CAD (coronary artery disease) Brother Lung cancer Sister Kidney stone Surgical History H/O lithotripsy H/O ureteroscopy H/O cystoscopy S/P ureteral stent placement History of cholecystectomy H/O hernia repair Social History Household Members: None Housing: Apartment Do you presently have visiting nurse or other home services: Yes ([employer]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 If so, by whom?: No Do you feel safe in your current relationship?: No Current Relationship Is there a partner from a previous relationship who is making you feel unsafe now?: No Are you made to feel afraid or neglected: No Advance Directives: Yes Advance Directives on File: Yes Advance Directives Date on File: 12/20/21 Do you have thoughts of harming others: None Do you have a plan to hurt others: No Plan Recently lost weight without trying: No Patient : No : No Poor oral hygiene: No service: No Current occupational status: unemployed Meds Allergies Allergy/AdvReac Type Severity Reaction Status Date / Time egg Allergy Mild Abdominal Verified 11/24/22 11:55 Pain Home Medications Medication Instructions Recorded Confirmed Last Taken Type blood sugar diagnostic (FreeStyle 03/28/20 09/09/22 Unknown History Lite Strips) blood-glucose meter (FreeStyle 03/28/20 09/09/22 Unknown History [place] Lite kit) lancets 28 gauge (FreeStyle 03/28/20 09/09/22 Unknown History Lancets) insulin glargine U-300 conc 300 30 unit subcut BID 03/29/20 11/24/22 10/01/21 History unit/mL (1.5 mL) subcutaneous pen ([employer] Rx #2 SoloStar U-300 Insulin) omeprazole 40 mg capsule,delayed 40 mg PO BID 10/02/21 11/24/22 10/01/21 History release blood pressure test kit-large #1 ea 10/12/21 09/09/22 Unknown History albuterol sulfate 90 mcg/actuation 2 puff inhalation Q4-6H PRN 12/20/21 11/24/22 Unknown History aerosol inhaler (Proventil HFA) Shortness Of Breath atorvastatin 80 mg tablet 1 tab PO DAILY 12/20/21 11/24/22 Unknown History albuterol sulfate 2.5 mg/3 mL 2.5 mg inhalation TID PRN wheezing 01/20/22 11/24/22 Unknown History (0.083 %) solution for nebulization nebulizers 01/20/22 09/09/22 Unknown History amlodipine 10 mg tablet 10 mg PO DAILY 05/29/22 11/24/22 Unknown History aspirin 81 mg tablet,delayed 81 mg PO DAILY 05/29/22 11/24/22 Unknown History release losartan 100 mg tablet 100 mg PO QAM 05/29/22 11/24/22 Unknown History sucralfate 1 gram tablet 1 g PO QID 05/29/22 11/24/22 Unknown History diclofenac sodium 1 % topical gel 2 g topical BEDTIME PRN Pain 06/07/22 11/24/22 Unknown History lancets 33 gauge (TRUEplus Lancets) #100 ea 06/07/22 09/09/22 Unknown History trazodone 50 mg tablet 100 mg PO BEDTIME 06/07/22 11/24/22 Unknown History cholecalciferol (vitamin D3) 50 50 mcg PO DAILY 11/24/22 11/24/22 Unknown History mcg (2,000 unit) tablet doxycycline hyclate 100 mg tablet 100 mg PO BID 11/24/22 11/24/22 Unknown History ferrous gluconate 324 mg (38 mg 324 mg PO QAM 11/24/22 11/24/22 Unknown History iron) tablet furosemide 40 mg tablet 40 mg PO BID 11/24/22 11/24/22 Unknown History insulin aspart U-100 100 unit/mL 16 unit subcut TIDAC 11/24/22 11/24/22 Unknown History (3 mL) subcutaneous pen (Novolog FlexPen U-100 Insulin aspart) sertraline 50 mg tablet 100 mg PO DAILY 11/24/22 11/24/22 Unknown History Physical Exam 2 Vital Signs and Narrative: Vital Signs: Last Vital Signs Temp 98 F 11/24/22 11:55 Pulse 89 11/24/22 14:06 Resp 20 11/24/22 14:06 BP 167/69 H 11/24/22 14:06 Pulse Ox 96 11/24/22 14:06 O2 Del Method Room Air 11/24/22 14:06 BMI result Body Mass Index 50.8 Const: Other: Constitutional: Alert, in no distress, overweight. Mental Status: Oriented to person, place and time. Eyes: Pupils are equal, round and reactive to light. Ear, Nose and Throat: Oropharynx clear, mucous membranes moist. Respiratory: Clear to auscultation. No wheezing, rales or rhonchi. Cardiovascular: S1 S2 regular. No murmurs, rubs or gallops. 3+ leg edama Gastrointestinal: Abdomen soft, non-tender, non-distended. Normal bowel sounds.? Neurologic: Cranial nerves II-XII grossly intact. No focal neurological deficits. Moves all extremities spontaneously.? Skin: No rashes or lesions.? Musculoskeletal: No cyanosis or clubbing. Psychiatric: Normal mood and affect? Results Labs 11/26/22 08:20 11/26/22 08:20 Labs: Laboratory Results - last 24 hr 11/24/22 11/24/22 11/24/22 12:12 13:10 13:50 MCV 95.3 MCH 29.9 MCHC 31.4 RDW 14.0 Plt Count TNP MPV TNP Immature Gran % (Auto) 1.0 H Neut % (Auto) 78.3 H Lymph % (Auto) 12.6 L [place] % (Auto) 4.2 Eos % (Auto) 3.0 Baso % (Auto) 0.9 Lymph # (Auto) 1.2 [place] # (Auto) 0.4 Eos # (Auto) 0.3 Baso # (Auto) 0.1 Abs Immat Gran (auto) 0.10 H Absolute Neuts (auto) 7.5 Absolute Nucleated RBC 0.000 Nucleated RBC % (auto) 0.0 Smear Tech's Comments VERIFIED Anion Gap 14 Estim Creat Clear Calc 16.8 Estimated GFR 11 POC Glucose 47 L* 64 Random Glucose 43 L* Calcium 8.7 Total Bilirubin 0.2 AST 16 ALT 11 Alkaline Phosphatase 118 H B-Natriuretic Peptide 225 H Total Protein 6.5 Albumin 3.1 L Lipase 20 COVID-19 (BIRDIE) Negative COVID-19 Clin Com See Note Imaging Radiologist's Impressions: Impressions Chest X-Ray 11/24/22 12:20 IMPRESSION: No acute abnormality. Assessment and Plan (1) CKD (chronic kidney disease) stage 3, GFR 30-59 ml/min: Status: Acute (2) CHF (congestive heart failure): Status: Acute Plan 66yo F with DM2, CKD3, benign brain tumor, seizure disorder, HTN, nephrolithiasis, morbid obesity here with increaseing leg edema and worsening renal failure #Increasing leg edema, slight increase in BNP, renal failure--suspect advancing CKD vs acute cardiorenal syndrome, no overt heart failure -Attempt IV diuretics and follow renal function, Nephrology consult # DM2 - basal/bolus insulin #Acute on chronic anemia, likely related CKD # HTN - continue amlodipine, hold Losartan d/t renal failure # CKD3 with worsening failure, Nephrology consult # sz disorder--not on meds at this time # mood disorder - continue duloxetine + quetiapine # VTE prophylaxis: Heparin # code status: full #Morbid obesity--weight loss advised DVT prophylaxis: Heparin Full code admission for at least 2 midnights for management of worsening chronic kidney failure. Time Spent With Patient Time: Total time managing care of this patient today ____ minutes. Quality Stroke Does the patient have a stroke diagnosis?: No VTE Prior VTE?: No VTE Risk Level:: Medical - moderate - high VTE Device Contraindication: Treatment Not Indicated VTE Drug Contraindication: N/A - Med Ordered
[2022-11-24 15:16] LABS: Glucose, Whole Blood 97 mg/dL (60-115)
[2022-11-24 16:51] LABS: Appearance Urine Clear; Color Urine Yellow; Glucose Urine UA 100 mg/dL (Negative); Leukocyte Esterase Urine Trace (Negative); Nitrite Urine Negative (Negative); PH 6.5 (5.0-9.0); UMIC TRIGGER UACC YES; Urine Blood Small (1+) (Negative); Urine Ketones Negative (Negative); Urine Protein >=1000 (4+) mg/dL (Neg-Trace)
[2022-11-24] MEDS: Sucralfate 1 GM TABLET PO ×2 (17:03→21:14)
[2022-11-24] MEDS: Omeprazole 40 MG CAPSULE.DR PO (17:03)
[2022-11-24] MEDS: Acetaminophen 325 MG TABLET 650 MG PO ×2 (17:03→22:56)
[2022-11-24] MEDS: Heparin Sodium,Porcine 5,000 UNIT/ML VIAL 5000 UNIT SUBCUT (17:04)
[2022-11-24 17:06] LABS: Bacteria Urine 4+ (None Seen); Hyaline Casts Urine 0-2 /LPF (0-2); Squamous Epithelial Cell Urine 0-2 /HPF (0-2); UACC Culture Trigger YES
[2022-11-24] MEDS: 0.9 % Sodium Chloride Flush 3 ML SYRINGE IVFLUSH ×2 (17:07→21:14)
--- NOTE | 2022-11-24 17:09 | PC.NURSE ---
Pt medicated for b/l leg pain and back pain, pt reports chronic in nature. Awaits bed assgn
[2022-11-24 18:24] VITALS: BP 139/64; PULSE 90; RESP 20; O2SAT 98
--- NOTE | 2022-11-24 18:24 | PC.NURSE ---
Pain s/p Tylenol has subsided. Set up with dinner. Mild SOB, 98% on room air. NSR on tele. Awaits bed assgn
[2022-11-24] MEDS: traZODone HCL 100 MG TABLET PO (21:14)
[2022-11-24 21:15] LABS: Glucose, Whole Blood 97 mg/dL (60-115)
[2022-11-24 23:17] VITALS: BP 140/64; PULSE 80; RESP 19; TEMP 37; O2SAT 98
[2022-11-24] MEDS: traMADoL HCL 50 MG TABLET PO (23:20)
[2022-11-25] VITALS (9 sets, daily range): BP systolic 132–149; BP diastolic 58–70; PULSE 72–77; RESP 18–20; TEMP 36.3–36.8; O2SAT 95–97; BMI 52.0
[2022-11-25] MEDS: Morphine Sulfate 2 MG/ML CARTRIDGE IVPUSH (01:01)
[2022-11-25] MEDS: Heparin Sodium,Porcine 5,000 UNIT/ML VIAL 5000 UNIT SUBCUT ×2 (07:04→19:47)
[2022-11-25] MEDS: Omeprazole 40 MG CAPSULE.DR PO ×2 (07:04→16:28)
[2022-11-25] MEDS: traMADoL HCL 50 MG TABLET PO (07:04)
[2022-11-25 07:59] LABS: Glucose, Whole Blood 130 mg/dL (60-115)
[2022-11-25] MEDS: amLODIPine Besylate 10 MG TABLET PO (08:24)
[2022-11-25] MEDS: Atorvastatin Calcium 80 MG TABLET PO (08:24)
[2022-11-25] MEDS: Cholecalciferol (Vitamin D3) 25 MCG TABLET 50 MCG PO (08:24)
[2022-11-25] MEDS: Aspirin Enteric Coated 81 MG TABLET.DR PO (08:25)
[2022-11-25] MEDS: Ferrous Sulfate 324 MG TABLET.DR PO (08:25)
[2022-11-25] MEDS: Insulin Glargine,Hum.rec.anlog 100 UNIT/ML 10 ML VIAL 24 UNIT SUBCUT ×2 (08:25→20:16)
[2022-11-25] MEDS: Sertraline HCL 100 MG TABLET PO (08:25)
[2022-11-25] MEDS: Sucralfate 1 GM TABLET PO ×4 (08:25→19:47)
[2022-11-25 08:53] LABS: Basophils Absolute Auto 0.1 X10*3/uL (0.0-0.2); Eosinophils Absolute Auto 0.4 X10*3/uL (0.0-0.4); Eosinophils Percent Auto 4.7 % (0-4); Hematocrit 22.3 % (37.0-47.0); Imm Gran Abs Auto 0.07 X10*3/uL (0.00-0.03); Imm Gran Pct Auto 0.9 % (0.0-0.4); Lymphocytes Absolute Auto 1.5 X10*3/uL (1.2-4.9); Lymphocytes Percent Auto 19.9 % (20-40); MANUAL DIFF FLAG SCAN; Mean Corpuscular HGB Conc 30.9 g/dl (31.0-35.0); Mean Corpuscular Hemoglobin 30.1 pg (27.0-33.0); Mean Corpuscular Volume 97.4 fL (80.0-98.0); Monocytes Absolute Auto 0.6 X10*3/uL (0.1-1.2); Monocytes Percent Auto 7.1 % (2-11); Neutrophils Absolute Auto 5.1 x10*3/uL (2.0-8.3); Neutrophils Percent Auto 66.4 % (45-73); PLT CLUMP 1; Red Blood Count 2.29 X10*6/uL (4.20-5.50); Red Cell Distribution Width 13.9 % (11.0-16.0); SCAN SMEAR FLAG 1
[2022-11-25 09:07] LABS: Hemoglobin 6.9 g/dl (12.0-16.0); White Blood Count 7.7 X10*3/uL (4.8-10.8)
--- NOTE | 2022-11-25 09:15 | P.PNIM_ITS ---
Subjective Subjective Date of Service: 11/25/22 Interval History: Seen in follow up for CHF exacerbation, worsening renal function Interval history: Reports improvement of pain the BLE. Still edematous. Still reports HORN and orthopnea thought this is chronic. Hgb dropped to 6.9%. No melena or hematochezia. No chest pain, abd pain, n/v. Creat slightly increased to 4.2. Review of Systems Review of Systems: Yes all other systems are reviewed and are negative Physical Exam 2 Vital Signs: Vital Signs: Last Vital Signs Temp 97.4 F 11/25/22 07:25 Pulse 74 11/25/22 07:25 Resp 20 11/25/22 07:25 BP 136/60 11/25/22 07:25 Pulse Ox 97 11/25/22 07:25 O2 Del Method Room Air 11/25/22 07:25 BMI result Body Mass Index 52.0 Constitutional - Awake and Alert, No apparent distress Eyes - PERRLA, EOMI Cardiovascular - S1S2, RRR, 2+ BLE edema Respiratory - Normal lung expansion, Normal respiratory effort, No respiratory distress, distant expiratory wheezing Extremities - no calf tenderness bilaterally, no swelling Skin - Warm/Dry Neurological - Alert & oriented x3 Psychological - Appropriate affect Objective Data Active Medications Acetaminophen (Acetaminophen 325 Mg Tablet) 650 mg PO Q6H PRN PRN Reason: Pain, Mild (Pain Scale 1-3) Last Admin: 11/24/22 22:56 Dose: 650 mg Documented By: RICARDA Al Hydroxide/Mg Hydroxide (Magnesium Hydrox/Alum Hydrox 30 Ml Oral.Susp) 30 ml PO Q4H PRN PRN Reason: Heartburn/Nausea Albuterol Sulfate (Albuterol Sulfate (0.083%) 2.5 Mg/3 Ml Vial.Neb) 2.5 mg INHALE TID PRN PRN Reason: wheezing Albuterol Sulfate (Albuterol Sulfate 90 Mcg 8 Gm Inhaler) 2 puff INHALE Q4H PRN PRN Reason: Shortness Of Breath Amlodipine Besylate (Amlodipine Besylate 10 Mg Tablet) 10 mg PO DAILY [facility]; Protocol Last Admin: 11/25/22 08:24 Dose: 10 mg Documented By: GUERRERO Aspirin (Aspirin Enteric Coated 81 Mg Tablet.) 81 mg PO DAILY [facility] Last Admin: 11/25/22 08:25 Dose: 81 mg Documented By: GUERRERO Atorvastatin Calcium (Atorvastatin Calcium 80 Mg Tablet) 80 mg PO DAILY [facility] Last Admin: 11/25/22 08:24 Dose: 80 mg Documented By: GUERRERO Ferrous Sulfate (Ferrous Sulfate 324 Mg Tablet.) 324 mg PO DAILY [facility] Last Admin: 11/25/22 08:25 Dose: 324 mg Documented By: GUERRERO Fluticasone/Vilanterol (Fluticasone/Vilanterol 100/25 Blst.W.Dev) 1 puff INHALE RDAILY [facility] Heparin Sodium (Porcine) (Heparin Sodium,Porcine 5,000 Unit/Ml Vial) 5,000 unit SUBCUT Q12H [facility] Insulin Glargine (Insulin Glargine,Hum.Rec.Anlog 100 Unit/Ml 10 Ml Vial) 24 unit SUBCUT BID [facility] Last Admin: 11/25/22 08:25 Dose: 24 unit Documented By: GUERRERO Magnesium Hydroxide (Milk Of Magnesia 30 Ml Oral.Susp) 30 ml PO DAILY PRN PRN Reason: Constipation Melatonin (Melatonin 3 Mg Tablet) 6 mg PO BEDTIME PRN PRN Reason: Insomnia Omeprazole (Omeprazole 40 Mg Capsule.) 40 mg PO BID@0630,1630 [facility] Last Admin: 11/25/22 07:04 Dose: 40 mg Documented By: RICARDA Ondansetron HCl (Ondansetron Hcl 4 Mg/2 Ml Vial) 4 mg IVPUSH Q8H PRN PRN Reason: Nausea and Vomiting Sertraline HCl (Sertraline Hcl 100 Mg Tablet) 100 mg PO DAILY [facility] Last Admin: 11/25/22 08:25 Dose: 100 mg Documented By: GUERRERO Sodium Chloride (0.9 % Sodium Chloride Flush 3 Ml Syringe) 3 ml IVFLUSH QSHIFT [facility] Last Admin: 11/25/22 07:24 Dose: Not Given Documented By: GUERRERO Non-Admin Reason: See Note Sucralfate (Sucralfate 1 Gm Tablet) 1 gm PO QID [facility] Last Admin: 11/25/22 08:25 Dose: 1 gm Documented By: GUERRERO Tramadol HCl (Tramadol Hcl 50 Mg Tablet) 50 mg PO Q4H PRN PRN Reason: Pain, Moderate(Pain Scale 4-6) Last Admin: 11/25/22 07:04 Dose: 50 mg Documented By: RICARDA Trazodone HCl (Trazodone Hcl 100 Mg Tablet) 100 mg PO BEDTIME [facility] Last Admin: 11/24/22 21:14 Dose: 100 mg Documented By: RICARDA Vitamin D (Cholecalciferol (Vitamin D3) 25 Mcg Tablet) 50 mcg PO DAILY [facility] Last Admin: 11/25/22 08:24 Dose: 50 mcg Documented By: GUERRERO Labs 11/25/22 08:27 11/25/22 08:27 Labs: Laboratory Results - last 24 hr 11/24/22 11/24/22 11/24/22 12:12 13:10 13:50 MCV 95.3 MCH 29.9 MCHC 31.4 RDW 14.0 Plt Count TNP MPV TNP Immature Gran % (Auto) 1.0 H Neut % (Auto) 78.3 H Lymph % (Auto) 12.6 L [place] % (Auto) 4.2 Eos % (Auto) 3.0 Baso % (Auto) 0.9 Lymph # (Auto) 1.2 [place] # (Auto) 0.4 Eos # (Auto) 0.3 Baso # (Auto) 0.1 Abs Immat Gran (auto) 0.10 H Absolute Neuts (auto) 7.5 Absolute Nucleated RBC 0.000 Nucleated RBC % (auto) 0.0 Smear Tech's Comments VERIFIED Anion Gap 14 Estim Creat Clear Calc 16.8 Estimated GFR 11 POC Glucose 47 L* 64 Random Glucose 43 L* Calcium 8.7 Total Bilirubin 0.2 AST 16 ALT 11 Alkaline Phosphatase 118 H B-Natriuretic Peptide 225 H Total Protein 6.5 Albumin 3.1 L Lipase 20 Urine Color Urine Appearance Urine pH Ur Specific [place] Urine Protein Urine Glucose (UA) Urine Ketones Urine Blood Urine Nitrite Ur Leukocyte Esterase Urine RBC Urine WBC Ur Squamous Epith Cells Urine Bacteria Hyaline Casts COVID-19 (BIRDIE) Negative COVID-19 Clin Com See Note 11/24/22 11/24/22 11/24/22 15:13 16:45 21:05 MCV MCH MCHC RDW Plt Count MPV Immature Gran % (Auto) Neut % (Auto) Lymph % (Auto) [place] % (Auto) Eos % (Auto) Baso % (Auto) Lymph # (Auto) [place] # (Auto) Eos # (Auto) Baso # (Auto) Abs Immat Gran (auto) Absolute Neuts (auto) Absolute Nucleated RBC Nucleated RBC % (auto) Smear Tech's Comments Anion Gap Estim Creat Clear Calc Estimated GFR POC Glucose 97 97 Random Glucose Calcium Total Bilirubin AST ALT Alkaline Phosphatase B-Natriuretic Peptide Total Protein Albumin Lipase Urine Color Yellow Urine Appearance Clear Urine pH 6.5 Ur Specific [place] 1.020 Urine Protein >=1000 (4+) H Urine Glucose (UA) 100 H Urine Ketones Negative Urine Blood Small (1+) H Urine Nitrite Negative Ur Leukocyte Esterase Trace H Urine RBC 3-5 H Urine WBC 11-20 H Ur Squamous Epith Cells 0-2 Urine Bacteria 4+ Hyaline Casts 0-2 COVID-19 ([facility]IRDIE) COVID-19 [employer] 11/25/22 11/25/22 07:29 08:27 MCV 97.4 MCH 30.1 MCHC 30.9 L RDW 13.9 Plt Count MPV Immature Gran % (Auto) Neut % (Auto) Lymph % (Auto) [place] % (Auto) Eos % (Auto) Baso % (Auto) Lymph # (Auto) [place] # (Auto) Eos # (Auto) Baso # (Auto) Abs Immat Gran (auto) Absolute Neuts (auto) Absolute Nucleated RBC Nucleated RBC % (auto) Smear Tech's Comments Anion Gap Estim Creat Clear Calc Estimated GFR POC Glucose 130 H Random Glucose Calcium Total Bilirubin AST ALT Alkaline Phosphatase B-Natriuretic Peptide Total Protein Albumin Lipase Urine Color Urine Appearance Urine pH Ur Specific [place] Urine Protein Urine Glucose (UA) Urine Ketones Urine Blood Urine Nitrite Ur Leukocyte Esterase Urine RBC Urine WBC Ur Squamous Epith Cells Urine Bacteria Hyaline Casts COVID-19 ([facility]IRDIE) COVID-19 Clin Epoxy Assessment and Plan (1) Acute kidney injury: Status: Acute (2) Anemia: Status: Acute (3) CKD (chronic kidney disease) stage 3, GFR 30-59 ml/min: Status: Acute (4) Cardiorenal syndrome: Status: Acute Plan 66yo F with DM2, CKD3, benign brain tumor, seizure disorder, HTN, nephrolithiasis, morbid obesity here with increaseing leg edema and worsening renal failure. Renal function continues to worsen as well as worsening anemia. BLE edema pain improved per patient #Increasing leg edema, slight increase in BNP, renal failure--suspect advancing CKD vs acute cardiorenal syndrome, no overt heart failure -Creat 4.06-->4.20 -Attempt IV diuretics -Avoid nephrotoxins -Low sodium diet -follow renal function -Nephrology consult # DM2 - basal/bolus insulin #Acute on chronic anemia, likely related CKD -H/H worsening, hgb 6.9 today -will check stool occult blood -1 unit PRBC ordered -Monitor on telemetry -Repeat h/h @4pm # HTN - continue amlodipine, hold Losartan d/t renal failure # CKD3 with worsening failure, Nephrology consult # sz disorder--not on meds at this time # mood disorder - continue duloxetine + quetiapine # VTE prophylaxis: Heparin # code status: full #Morbid obesity--weight loss advised DVT prophylaxis: Heparin Full code Pt requires ongoing inpatient stay due to worsening renal function requiring expert consultation now with acute on chronic anemia requiring blood transfusion. Patient requires close monitoring of renal function, electrolytes, and blood counts Time Spent With Patient Time: Total time managing care of this patient today ____ minutes. Quality Stroke Does the patient have a stroke diagnosis?: No VTE Prior VTE?: No VTE Risk Level:: Medical - moderate - high VTE Device Contraindication: Treatment Not Indicated VTE Drug Contraindication: N/A - Med Ordered
[2022-11-25 09:18] LABS: Anion Gap 13 (12-20); Blood Urea Nitrogen 61 mg/dL (9-16); Calcium 8.7 mg/dL (8.4-10.2); Carbon Dioxide 15 mmol/L (22-29); Chloride 116 mmol/L (96-108); Creatinine Clr Calc Pharmacy 16.6; Estimated Glomerular Filt Rate 11; Glucose Random 102 mg/dL (60-115); Potassium 5.4 mmol/L (3.3-5.1); Sodium 139 mmol/L (135-145)
--- NOTE | 2022-11-25 09:21 | MHC.CM.PN ---
CM met with Patient at bedside with the assist of a Nursery Hand and addressed IMM with her, Providing Patient with the original and placing a copy on the chart. Patient lives in an apartment with her Daughter/HCP/[employer] (4 hours/day of [employer] services)and she uses both a w/c and a walker to assist with mobility. Home/resume said services is the goal and CM has initiated and will follow for dc planning. PCP is Dr. Lucrecia Teixeira.
[2022-11-25 10:00] LABS: SLIDE REVIEW VERIFIED
[2022-11-25] MEDS: Sodium Zirconium Cyclosilicate 10 GM POWD.PACK PO (10:38)
[2022-11-25 11:11] LABS: Glucose, Whole Blood 102 mg/dL (60-115)
[2022-11-25] MEDS: Fluticasone/Vilanterol 100/25 BLST.W.DEV 1 PUFF INHALE (11:30)
--- NOTE | 2022-11-25 15:28 | MHC.CM.PN ---
CORRECTION, Patient receives 28 [employer] hours/week and is active with [employer]. CM will follow.
[2022-11-25] MEDS: 0.9 % Sodium Chloride Flush 3 ML SYRINGE IVFLUSH ×2 (16:28→19:47)
[2022-11-25 16:33] LABS: Glucose, Whole Blood 108 mg/dL (60-115)
[2022-11-25] MEDS: traZODone HCL 100 MG TABLET PO (19:47)
[2022-11-25] MEDS: Melatonin 3 MG TABLET 6 MG PO (19:47)
[2022-11-25 20:11] LABS: Glucose, Whole Blood 113 mg/dL (60-115)
[2022-11-26] VITALS: BP 145/65; PULSE 65; RESP 18; TEMP 36.7; O2SAT 97
[2022-11-26 04:00] VITALS: BP 166/79; PULSE 67; RESP 20; TEMP 37.1; O2SAT 98
[2022-11-26 04:38] VITALS: BMI 52.6
[2022-11-26] MEDS: Omeprazole 40 MG CAPSULE.DR PO ×2 (06:32→17:01)
[2022-11-26] MEDS: Heparin Sodium,Porcine 5,000 UNIT/ML VIAL 5000 UNIT SUBCUT ×2 (06:32→18:49)
[2022-11-26 07:20] VITALS: BP 160/75; PULSE 67; RESP 16; TEMP 36.2; O2SAT 98
[2022-11-26] MEDS: Glucose Gel 15 GM GEL..GRAM. PO (07:22)
[2022-11-26 07:46] LABS: Glucose, Whole Blood 168 mg/dL (60-115)
[2022-11-26 07:46] LABS: Glucose, Whole Blood 52 mg/dL (60-115)
[2022-11-26] MEDS: amLODIPine Besylate 10 MG TABLET PO (08:08)
[2022-11-26] MEDS: Ferrous Sulfate 324 MG TABLET.DR PO (08:09)
[2022-11-26] MEDS: Sucralfate 1 GM TABLET PO ×4 (08:09→20:27)
[2022-11-26] MEDS: Aspirin Enteric Coated 81 MG TABLET.DR PO (08:09)
[2022-11-26] MEDS: Cholecalciferol (Vitamin D3) 25 MCG TABLET 50 MCG PO (08:09)
[2022-11-26] MEDS: Sertraline HCL 100 MG TABLET PO (08:09)
[2022-11-26] MEDS: Atorvastatin Calcium 80 MG TABLET PO (08:09)
[2022-11-26] MEDS: Insulin Glargine,Hum.rec.anlog 100 UNIT/ML 10 ML VIAL 24 UNIT SUBCUT ×2 (08:09→20:27)
[2022-11-26] MEDS: 0.9 % Sodium Chloride Flush 3 ML SYRINGE IVFLUSH ×2 (08:13→20:28)
[2022-11-26 09:26] LABS: Hematocrit 26.2 % (37.0-47.0); Hemoglobin 8.3 g/dl (12.0-16.0); Mean Corpuscular HGB Conc 31.7 g/dl (31.0-35.0); Mean Corpuscular Hemoglobin 30.3 pg (27.0-33.0); Mean Corpuscular Volume 95.6 fL (80.0-98.0); PLT CLUMP 1; Red Blood Count 2.74 X10*6/uL (4.20-5.50); Red Cell Distribution Width 13.5 % (11.0-16.0)
[2022-11-26 09:30] LABS: White Blood Count 8.8 X10*3/uL (4.8-10.8)
[2022-11-26 10:09] LABS: Anion Gap 13 (12-20); Blood Urea Nitrogen 66 mg/dL (9-16); Calcium 8.4 mg/dL (8.4-10.2); Carbon Dioxide 17 mmol/L (22-29); Chloride 113 mmol/L (96-108); Creatinine Clr Calc Pharmacy 16.4; Estimated Glomerular Filt Rate 10; Glucose Random 92 mg/dL (60-115); Potassium 5.6 mmol/L (3.3-5.1); Sodium 137 mmol/L (135-145)
[2022-11-26 10:15] LABS: Platelet Count 177 X10*3/uL (160-400)
--- NOTE | 2022-11-26 10:43 | HO.PM.IMPN ---
Subjective Subjective Date of Service: 11/26/22 Interval History: no ronn issues, renal failure unchanged, K is high Physical Exam Vital Signs: Vital Signs: Last Vital Signs Temp 97.1 F 11/26/22 07:20 Pulse 67 11/26/22 07:20 Resp 16 11/26/22 07:20 BP 160/75 H 11/26/22 07:20 Pulse Ox 98 11/26/22 07:20 O2 Del Method Room Air 11/26/22 07:20 BMI result Body Mass Index 52.6 Constitutional - Awake and Alert, No apparent distress Eyes - PERRLA, EOMI Cardiovascular - S1S2, RRR, 2+ BLE edema Respiratory - Normal lung expansion, Normal respiratory effort, No respiratory distress, distant expiratory wheezing Extremities - no calf tenderness bilaterally, no swelling Skin - Warm/Dry Neurological - Alert & oriented x3 Psychological - Appropriate affect Const: Other: Constitutional - Awake and Alert, No apparent distress Eyes - PERRLA, EOMI Cardiovascular - S1S2, RRR, 2+ BLE edema Respiratory - Normal lung expansion, Normal respiratory effort, No respiratory distress, distant expiratory wheezing Extremities - no calf tenderness bilaterally, no swelling Skin - Warm/Dry Neurological - Alert & oriented x3 Psychological - Appropriate affect Objective Data Active Medications Acetaminophen (Acetaminophen 325 Mg Tablet) 650 mg PO Q6H PRN PRN Reason: Pain, Mild (Pain Scale 1-3) Last Admin: 11/24/22 22:56 Dose: 650 mg Documented By: RICARDA Al Hydroxide/Mg Hydroxide (Magnesium Hydrox/Alum Hydrox 30 Ml Oral.Susp) 30 ml PO Q4H PRN PRN Reason: Heartburn/Nausea Albuterol Sulfate (Albuterol Sulfate (0.083%) 2.5 Mg/3 Ml Vial.Neb) 2.5 mg INHALE TID PRN PRN Reason: wheezing Albuterol Sulfate (Albuterol Sulfate 90 Mcg 8 Gm Inhaler) 2 puff INHALE Q4H PRN PRN Reason: Shortness Of Breath Amlodipine Besylate (Amlodipine Besylate 10 Mg Tablet) 10 mg PO DAILY [facility]; Protocol Last Admin: 11/26/22 08:08 Dose: 10 mg Documented By: CONSTANTIN Aspirin (Aspirin Enteric Coated 81 Mg Tablet.) 81 mg PO DAILY [facility] Last Admin: 11/26/22 08:09 Dose: 81 mg Documented By: CONSTANTIN Atorvastatin Calcium (Atorvastatin Calcium 80 Mg Tablet) 80 mg PO DAILY [facility] Last Admin: 11/26/22 08:09 Dose: 80 mg Documented By: CONSTANTIN Dextrose (Dextrose 50 % 25 Gm/50 Ml Syringe) 25 gm IVPUSH Q15M PRN; Protocol PRN Reason: per Hypoglycemia Standing Ord. Ferrous Sulfate (Ferrous Sulfate 324 Mg Tablet.) 324 mg PO DAILY [facility] Last Admin: 11/26/22 08:09 Dose: 324 mg Documented By: CONSTANTIN Fluticasone/Vilanterol (Fluticasone/Vilanterol 100/25 Blst.W.Dev) 1 puff INHALE RDAILY [facility] Last Admin: 11/26/22 09:06 Dose: Not Given Documented By: LAILA Non-Admin Reason: Med Not Available Glucose (Glucose Gel 15 Gm Gel..Gram.) 15 gm PO Q15M PRN; Protocol PRN Reason: per Hypoglycemia Standing Ord. Last Admin: 11/26/22 07:22 Dose: 15 gm Documented By: CONSTANTIN Heparin Sodium (Porcine) (Heparin Sodium,Porcine 5,000 Unit/Ml Vial) 5,000 unit SUBCUT Q12H [facility] Last Admin: 11/26/22 06:32 Dose: 5,000 unit Documented By: TANISHA Insulin Glargine (Insulin Glargine,Hum.Rec.Anlog 100 Unit/Ml 10 Ml Vial) 24 unit SUBCUT BID [facility] Last Admin: 11/26/22 08:09 Dose: 24 unit Documented By: CONSTANTIN Insulin Human Lispro (Insulin Lispro 100 Unit/Ml 3 Ml Vial) 0 unit SUBCUT QIDACHS [facility]; Protocol Last Admin: 11/26/22 07:24 Dose: Not Given Documented By: COSNTANTIN Non-Admin Reason: No Insulin Coverage Magnesium Hydroxide (Milk Of Magnesia 30 Ml Oral.Susp) 30 ml PO DAILY PRN PRN Reason: Constipation Melatonin (Melatonin 3 Mg Tablet) 6 mg PO BEDTIME PRN PRN Reason: Insomnia Last Admin: 11/25/22 19:47 Dose: 6 mg Documented By: TANISHA Omeprazole (Omeprazole 40 Mg Capsule.) 40 mg PO BID@0630,1630 [facility] Last Admin: 11/26/22 06:32 Dose: 40 mg Documented By: TANISHA Ondansetron HCl (Ondansetron Hcl 4 Mg/2 Ml Vial) 4 mg IVPUSH Q8H PRN PRN Reason: Nausea and Vomiting Sertraline HCl (Sertraline Hcl 100 Mg Tablet) 100 mg PO DAILY [facility] Last Admin: 11/26/22 08:09 Dose: 100 mg Documented By: CONSTANTIN Sodium Chloride (0.9 % Sodium Chloride Flush 3 Ml Syringe) 3 ml IVFLUSH QSHIFT [facility] Last Admin: 11/26/22 08:13 Dose: 3 ml Documented By: CONSTANTIN Sodium Zirconium Cyclosilicate (Sodium Zirconium Cyclosilicate 10 Gm Powd.Pack) 10 gm PO DAILY [facility] Sucralfate (Sucralfate 1 Gm Tablet) 1 gm PO QID [facility] Last Admin: 11/26/22 08:09 Dose: 1 gm Documented By: CONSTANTIN Tramadol HCl (Tramadol Hcl 50 Mg Tablet) 50 mg PO Q4H PRN PRN Reason: Pain, Moderate(Pain Scale 4-6) Last Admin: 11/25/22 07:04 Dose: 50 mg Documented By: RICARDA Trazodone HCl (Trazodone Hcl 100 Mg Tablet) 100 mg PO BEDTIME [facility] Last Admin: 11/25/22 19:47 Dose: 100 mg Documented By: TANISHA Vitamin D (Cholecalciferol (Vitamin D3) 25 Mcg Tablet) 50 mcg PO DAILY [facility] Last Admin: 11/26/22 08:09 Dose: 50 mcg Documented By: CONSTANTIN Labs 11/26/22 08:20 11/26/22 08:20 Labs: Laboratory Results - last 24 hr 11/25/22 11/25/22 11/25/22 10:11 11:05 16:15 MCV MCH MCHC RDW Plt Count MPV Absolute Nucleated RBC Nucleated RBC % (auto) Anion Gap Estim Creat Clear Calc Estimated GFR POC Glucose 102 108 Random Glucose Calcium Blood Type O Positive Antibody Screen NEGATIVE Crossmatch See Detail 11/25/22 11/26/22 11/26/22 20:06 07:18 07:42 MCV MCH MCHC RDW Plt Count MPV Absolute Nucleated RBC Nucleated RBC % (auto) Anion Gap Estim Creat Clear Calc Estimated GFR POC Glucose 113 52 L* 168 H Random Glucose Calcium Blood Type Antibody Screen Crossmatch 11/26/22 08:20 MCV 95.6 MCH 30.3 MCHC 31.7 RDW 13.5 Plt Count 177 MPV 12.0 Absolute Nucleated RBC 0.000 Nucleated RBC % (auto) 0.0 Anion Gap 13 Estim Creat Clear Calc 16.4 Estimated GFR 10 POC Glucose Random Glucose 92 Calcium 8.4 Blood Type Antibody Screen Crossmatch Microbiology Microbiology Results: Microbiology 11/24/22 17:10 Urine Culture - Preliminary Urine clean catch - Urine berg top Culture too young to evaluate. Assessment and Plan (1) Acute kidney injury: Status: Acute (2) Anemia: Status: Acute (3) CKD (chronic kidney disease) stage 3, GFR 30-59 ml/min: Status: Acute (4) Cardiorenal syndrome: Status: Acute Plan 66yo F with DM2, CKD3, benign brain tumor, seizure disorder, HTN, nephrolithiasis, morbid obesity here with increaseing leg edema and worsening renal failure. Renal function continues to worsen as well as worsening anemia. BLE edema pain improved per patient #Increasing leg edema, slight increase in BNP, renal failure--suspect advancing CKD vs acute cardiorenal syndrome, no overt heart failure -Creat 4.06-->4.20-->4.27, -IV Lasix -Avoid nephrotoxins -Low sodium diet -follow renal function -Nephrology consult pending ? nearing dialysis HypERkalemia--Lokelil # DM2 - basal/bolus insulin #Acute on chronic anemia, likely related CKD -H/H worsening, hgb 6.9 01/25 -transfused 1unit with improvment Hgb 8 now -will check stool occult blood # HTN - continue amlodipine, hold Losartan d/t renal failure #Progressing CKD with worsening failure, Nephrology to further advise # sz disorder--not on meds at this time # mood disorder - continue duloxetine + quetiapine # VTE prophylaxis: Heparin # code status: full #Morbid obesity--weight loss advised DVT prophylaxis: Heparin Full code Pt requires ongoing inpatient stay due to worsening renal function requiring expert consultation now with acute on chronic anemia requiring blood transfusion. Patient requires close monitoring of renal function, electrolytes, and blood counts Time Spent With Patient Time: Total time managing care of this patient today ____ minutes. Quality Stroke Does the patient have a stroke diagnosis?: No VTE Prior VTE?: No VTE Risk Level:: Medical - moderate - high VTE Device Contraindication: Treatment Not Indicated VTE Drug Contraindication: N/A - Med Ordered
[2022-11-26 10:58] VITALS: BP 135/67; PULSE 71; RESP 17; TEMP 36.1; O2SAT 98
[2022-11-26] MEDS: Sodium Zirconium Cyclosilicate 10 GM POWD.PACK PO (12:08)
[2022-11-26 12:13] LABS: Glucose, Whole Blood 78 mg/dL (60-115)
[2022-11-26] MEDS: Furosemide 100 MG/10 ML VIAL 60 MG IVPUSH (14:14)
[2022-11-26 16:00] VITALS: BP 149/68; PULSE 72; RESP 18; TEMP 36.3; O2SAT 97
[2022-11-26 16:56] LABS: Glucose, Whole Blood 85 mg/dL (60-115)
[2022-11-26 19:14] VITALS: BP 155/67; PULSE 74; RESP 18; TEMP 36.6; O2SAT 98
--- NOTE | 2022-11-26 19:26 | PM.CNNEP ---
History of Present Illness Reason for Consult Consult date: 11/27/22 Reason for consult: MICHAEL onCKD Requesting physician: Seth Ronquillo Chief Complaint Chief complaint: fluid overload Review of Systems Review of Systems Gen: no fever Resp: no sob, no cough CV: no chest, +HORN, + leg edema GI: No n/v, no abd pain Neuro: No confusion Yes all other systems are reviewed and are negative PMFSH Past Medical History Medical History Brain tumor (benign) Lower extremity edema Pneumonia Asthma Pulmonary nodule HLD (hyperlipidemia) CKD (chronic kidney disease) stage 3, GFR 30-59 ml/min Seizure Acute hypoxemic respiratory failure due to COVID-19 COVID-19 Kidney stone Depression Gastritis Diabetes Family History Family History Father CAD (coronary artery disease) Brother Lung cancer Sister Kidney stone Surgical History Surgical History H/O lithotripsy H/O ureteroscopy H/O cystoscopy S/P ureteral stent placement History of cholecystectomy H/O hernia repair Social History Social History Household Members: None Housing: Apartment Do you presently have visiting nurse or other home services: Yes ([employer] 4hrs/day everyday) Alcohol intake: never Patient Tobacco Use Status: Never used Tobacco Smoked in Last 30 Days: No e-Cigarette/Vaping Use: Never Used Use of substances other than those prescribed or required for medical reasons: No Currently Displaying Signs/Symptoms of Drug Intoxication Withdrawal: No Have you been hit, kicked, punched, or otherwise hurt by someone within the past year? If so, by whom?: No Do you feel safe in your current relationship?: No Current Relationship Is there a partner from a previous relationship who is making you feel unsafe now?: No Are you made to feel afraid or neglected: No Advance Directives: Yes Advance Directives on File: Yes Advance Directives Date on File: 12/20/21 Do you have thoughts of harming others: None Do you have a plan to hurt others: No Plan Recently lost weight without trying: No Patient : No : No Poor oral hygiene: No service: No Current occupational status: unemployed Meds Allergies Allergy/AdvReac Type Severity Reaction Status Date / Time egg Allergy Mild Abdominal Verified 11/24/22 11:55 Pain Active Medications: Current Medications Acetaminophen (Acetaminophen 325 Mg Tablet) 650 mg PO Q6H PRN PRN Reason: Pain, Mild (Pain Scale 1-3) Last Admin: 11/24/22 22:56 Dose: 650 mg Al Hydroxide/Mg Hydroxide (Magnesium Hydrox/Alum Hydrox 30 Ml Oral.Susp) 30 ml PO Q4H PRN PRN Reason: Heartburn/Nausea Albuterol Sulfate (Albuterol Sulfate (0.083%) 2.5 Mg/3 Ml Vial.Neb) 2.5 mg INHALE TID PRN PRN Reason: wheezing Albuterol Sulfate (Albuterol Sulfate 90 Mcg 8 Gm Inhaler) 2 puff INHALE Q4H PRN PRN Reason: Shortness Of Breath Amlodipine Besylate (Amlodipine Besylate 10 Mg Tablet) 10 mg PO DAILY [facility]; Protocol Last Admin: 11/26/22 08:08 Dose: 10 mg Aspirin (Aspirin Enteric Coated 81 Mg Tablet.) 81 mg PO DAILY [facility] Last Admin: 11/26/22 08:09 Dose: 81 mg Atorvastatin Calcium (Atorvastatin Calcium 80 Mg Tablet) 80 mg PO DAILY [facility] Last Admin: 11/26/22 08:09 Dose: 80 mg Dextrose (Dextrose 50 % 25 Gm/50 Ml Syringe) 25 gm IVPUSH Q15M PRN; Protocol PRN Reason: per Hypoglycemia Standing Ord. Ferrous Sulfate (Ferrous Sulfate 324 Mg Tablet.) 324 mg PO DAILY [facility] Last Admin: 11/26/22 08:09 Dose: 324 mg Fluticasone/Vilanterol (Fluticasone/Vilanterol 100/25 Blst.W.Dev) 1 puff INHALE RDAILY [facility] Last Admin: 11/26/22 09:06 Dose: Not Given Glucose (Glucose Gel 15 Gm Gel..Gram.) 15 gm PO Q15M PRN; Protocol PRN Reason: per Hypoglycemia Standing Ord. Last Admin: 11/26/22 07:22 Dose: 15 gm Heparin Sodium (Porcine) (Heparin Sodium,Porcine 5,000 Unit/Ml Vial) 5,000 unit SUBCUT Q12H [facility] Last Admin: 11/26/22 18:49 Dose: 5,000 unit Insulin Glargine (Insulin Glargine,Hum.Rec.Anlog 100 Unit/Ml 10 Ml Vial) 24 unit SUBCUT BID [facility] Last Admin: 11/26/22 08:09 Dose: 24 unit Insulin Human Lispro (Insulin Lispro 100 Unit/Ml 3 Ml Vial) 0 unit SUBCUT QIDACHS [facility]; Protocol Last Admin: 11/26/22 16:56 Dose: Not Given Magnesium Hydroxide (Milk Of Magnesia 30 Ml Oral.Susp) 30 ml PO DAILY PRN PRN Reason: Constipation Melatonin (Melatonin 3 Mg Tablet) 6 mg PO BEDTIME PRN PRN Reason: Insomnia Last Admin: 11/25/22 19:47 Dose: 6 mg Omeprazole (Omeprazole 40 Mg Capsule.Dr) 40 mg PO BID@0630,1630 [facility] Last Admin: 11/26/22 17:01 Dose: 40 mg Ondansetron HCl (Ondansetron Hcl 4 Mg/2 Ml Vial) 4 mg IVPUSH Q8H PRN PRN Reason: Nausea and Vomiting Sertraline HCl (Sertraline Hcl 100 Mg Tablet) 100 mg PO DAILY [facility] Last Admin: 11/26/22 08:09 Dose: 100 mg Sodium Chloride (0.9 % Sodium Chloride Flush 3 Ml Syringe) 3 ml IVFLUSH QSHIFT [facility] Last Admin: 11/26/22 16:56 Dose: Not Given Sodium Zirconium Cyclosilicate (Sodium Zirconium Cyclosilicate 10 Gm Powd.Pack) 10 gm PO DAILY [facility] Last Admin: 11/26/22 12:08 Dose: 10 gm Sucralfate (Sucralfate 1 Gm Tablet) 1 gm PO QID [facility] Last Admin: 11/26/22 17:01 Dose: 1 gm Tramadol HCl (Tramadol Hcl 50 Mg Tablet) 50 mg PO Q4H PRN PRN Reason: Pain, Moderate(Pain Scale 4-6) Last Admin: 11/25/22 07:04 Dose: 50 mg Trazodone HCl (Trazodone Hcl 100 Mg Tablet) 100 mg PO BEDTIME [facility] Last Admin: 11/25/22 19:47 Dose: 100 mg Vitamin D (Cholecalciferol (Vitamin D3) 25 Mcg Tablet) 50 mcg PO DAILY [facility] Last Admin: 11/26/22 08:09 Dose: 50 mcg Home Medications Medication Instructions Recorded Confirmed Last Taken Type blood sugar diagnostic (FreeStyle 03/28/20 09/09/22 Unknown History Lite Strips) blood-glucose meter (FreeStyle 03/28/20 09/09/22 Unknown History [place] Lite kit) lancets 28 gauge (FreeStyle 03/28/20 09/09/22 Unknown History Lancets) insulin glargine U-300 conc 300 30 unit subcut BID 03/29/20 11/24/22 10/01/21 History unit/mL (1.5 mL) subcutaneous pen (Wolf SolDieudonne U-300 Insulin) omeprazole 40 mg capsule,delayed 40 mg PO BID 10/02/21 11/24/22 10/01/21 History release blood pressure test kit-large #1 ea 10/12/21 09/09/22 Unknown History albuterol sulfate 90 mcg/actuation 2 puff inhalation Q4-6H PRN 12/20/21 11/24/22 Unknown History aerosol inhaler (Proventil HFA) Shortness Of Breath atorvastatin 80 mg tablet 1 tab PO DAILY 12/20/21 11/24/22 Unknown History albuterol sulfate 2.5 mg/3 mL 2.5 mg inhalation TID PRN wheezing 01/20/22 11/24/22 Unknown History (0.083 %) solution for nebulization nebulizers 01/20/22 09/09/22 Unknown History amlodipine 10 mg tablet 10 mg PO DAILY 05/29/22 11/24/22 Unknown History aspirin 81 mg tablet,delayed 81 mg PO DAILY 05/29/22 11/24/22 Unknown History release losartan 100 mg tablet 100 mg PO QAM 05/29/22 11/24/22 Unknown History sucralfate 1 gram tablet 1 g PO QID 05/29/22 11/24/22 Unknown History diclofenac sodium 1 % topical gel 2 g topical BEDTIME PRN Pain 06/07/22 11/24/22 Unknown History lancets 33 gauge (TRUEplus Lancets) #100 ea 06/07/22 09/09/22 Unknown History trazodone 50 mg tablet 100 mg PO BEDTIME 06/07/22 11/24/22 Unknown History cholecalciferol (vitamin D3) 50 50 mcg PO DAILY 11/24/22 11/24/22 Unknown History mcg (2,000 unit) tablet doxycycline hyclate 100 mg tablet 100 mg PO BID 11/24/22 11/24/22 Unknown History ferrous gluconate 324 mg (38 mg 324 mg PO QAM 11/24/22 11/24/22 Unknown History iron) tablet furosemide 40 mg tablet 40 mg PO BID 11/24/22 11/24/22 Unknown History insulin aspart U-100 100 unit/mL 16 unit subcut TIDAC 11/24/22 11/24/22 Unknown History (3 mL) subcutaneous pen (Novolog FlexPen U-100 Insulin aspart) sertraline 50 mg tablet 100 mg PO DAILY 11/24/22 11/24/22 Unknown History Physical Exam Vital Signs: Last Vital Signs Temp 97.9 F 11/26/22 19:14 Pulse 74 11/26/22 19:14 Resp 18 11/26/22 19:14 BP 155/67 H 11/26/22 19:14 Pulse Ox 98 11/26/22 19:14 O2 Del Method Room Air 11/26/22 19:14 BMI result Body Mass Index 52.6 Const Other: Constitutional - Awake and Alert, No apparent distress Eyes - PERRLA, EOMI Cardiovascular - S1S2, RRR, 2+ BLE edema Respiratory - Normal lung expansion, Normal respiratory effort, No respiratory distress, distant expiratory wheezing Extremities - no calf tenderness bilaterally, no swelling Skin - Warm/Dry Neurological - Alert & oriented x3 Psychological - Appropriate affect Results Lab Results 11/26/22 08:20 11/27/22 05:43 Lab results: Chemistry 11/24/22 11/25/22 11/26/22 12:12 08:27 08:20 Sodium 142 139 137 Potassium 4.9 5.4 H 5.6 H Carbon Dioxide 15 L 15 L 17 L BUN 57 H 61 H 66 H Creatinine 4.06 H* 4.20 H* 4.27 H* Calcium 8.7 8.7 8.4 Hematology 11/24/22 11/25/22 11/26/22 12:12 08:27 08:20 WBC 9.6 7.7 8.8 Hgb 7.6 L 6.9 L* 8.3 L D Plt Count TNP TNP 177 Urinalysis 11/24/22 16:45 Urine Color Yellow Urine Appearance Clear Urine pH 6.5 Ur Specific [place] 1.020 Urine Protein >=1000 (4+) H Urine Glucose (UA) 100 H Urine Ketones Negative Urine Blood Small (1+) H Urine Nitrite Negative Ur Leukocyte Esterase Trace H Urine RBC 3-5 H Urine WBC 11-20 H Ur Squamous Epith Cells 0-2 Hyaline Casts 0-2 Assessment and Plan (1) Acute kidney injury: Status: Acute (2) Anemia: Status: Acute (3) CKD (chronic kidney disease) stage 3, GFR 30-59 ml/min: Status: Acute (4) Cardiorenal syndrome: Status: Acute Plan 66yo F with DM2, CKD3, benign brain tumor, seizure disorder, HTN, nephrolithiasis, morbid obesity here with increaseing leg edema and worsening renal failure. Renal function continues to worsen as well as worsening anemia. BLE edema pain improved per patient #Increasing leg edema, slight increase in BNP, renal failure--suspect advancing CKD vs acute cardiorenal syndrome, no overt heart failure -Creat 4.06-->4.20-->4.27, -IV Lasix -Avoid nephrotoxins -Low sodium diet -follow renal function -Nephrology consult pending ? nearing dialysis HypERkalemia--kelil # DM2 - basal/bolus insulin #Acute on chronic anemia, likely related CKD -H/H worsening, hgb 6.9 01/25 -transfused 1unit with improvment Hgb 8 now -will check stool occult blood # HTN - continue amlodipine, hold Losartan d/t renal failure #Progressing CKD with worsening failure, Nephrology to further advise # sz disorder--not on meds at this time # mood disorder - continue duloxetine + quetiapine # VTE prophylaxis: Heparin # code status: full #Morbid obesity--weight loss advised DVT prophylaxis: Heparin Full code Pt requires ongoing inpatient stay due to worsening renal function requiring expert consultation now with acute on chronic anemia requiring blood transfusion. Patient requires close monitoring of renal function, electrolytes, and blood counts Time Spent With Patient Time: Total time managing care of this patient today ____ minutes. Procedures Date of Service Date of Service: 11/27/22
[2022-11-26 19:47] LABS: Glucose, Whole Blood 112 mg/dL (60-115)
[2022-11-26] MEDS: traZODone HCL 100 MG TABLET PO (20:27)
[2022-11-26] MEDS: Furosemide 100 MG/10 ML VIAL 80 MG IVPUSH (20:28)
[2022-11-26 21:04] LABS: Appearance Urine Clear; Color Urine Yellow; Glucose Urine UA 100 mg/dL (Negative); Leukocyte Esterase Urine Moderate (2+) (Negative); Nitrite Urine Negative (Negative); UMIC TRIGGER UA YES; Urine Blood Moderate (2+) (Negative); Urine Ketones Negative (Negative); Urine Protein 300 (3+) mg/dL (Neg-Trace)
[2022-11-26 21:38] LABS: Bacteria Urine 4+ (None Seen)
[2022-11-26] MEDS: Acetaminophen 325 MG TABLET 650 MG PO (21:54)
[2022-11-26] MEDS: Melatonin 3 MG TABLET 6 MG PO (21:54)
[2022-11-26 23:06] LABS: Creatinine Urine 25.49 mg/dL
[2022-11-27] VITALS (7 sets, daily range): BP systolic 141–174; BP diastolic 64–73; PULSE 67–78; RESP 16–20; TEMP 36.2–37; O2SAT 95–98; BMI 53.7
[2022-11-27 02:13] LABS: Total Protein Urine Random 252 mg/dL (<12)
[2022-11-27] MEDS: Heparin Sodium,Porcine 5,000 UNIT/ML VIAL 5000 UNIT SUBCUT ×2 (06:40→21:13)
[2022-11-27] MEDS: Omeprazole 40 MG CAPSULE.DR PO ×2 (06:41→18:12)
[2022-11-27 07:04] LABS: Anion Gap 14 (12-20); Blood Urea Nitrogen 73 mg/dL (9-16); Calcium 8.5 mg/dL (8.4-10.2); Carbon Dioxide 18 mmol/L (22-29); Chloride 113 mmol/L (96-108); Creatinine Clr Calc Pharmacy 15.9; Estimated Glomerular Filt Rate 10; Glucose Random 60 mg/dL (60-115); Potassium 5.5 mmol/L (3.3-5.1); Sodium 139 mmol/L (135-145)
[2022-11-27 08:17] LABS: Glucose, Whole Blood 67 mg/dL (60-115)
[2022-11-27] MEDS: Furosemide 100 MG/10 ML VIAL 80 MG IVPUSH ×2 (08:57→21:12)
[2022-11-27] MEDS: Acetaminophen 325 MG TABLET 650 MG PO ×2 (08:58→14:27)
[2022-11-27] MEDS: Sucralfate 1 GM TABLET PO ×4 (08:58→21:13)
[2022-11-27] MEDS: amLODIPine Besylate 10 MG TABLET PO (08:58)
[2022-11-27] MEDS: Cholecalciferol (Vitamin D3) 25 MCG TABLET 50 MCG PO (08:59)
[2022-11-27] MEDS: Atorvastatin Calcium 80 MG TABLET PO (08:59)
[2022-11-27] MEDS: Sertraline HCL 100 MG TABLET PO (08:59)
[2022-11-27] MEDS: Aspirin Enteric Coated 81 MG TABLET.DR PO (08:59)
[2022-11-27] MEDS: Sodium Zirconium Cyclosilicate 10 GM POWD.PACK PO (08:59)
[2022-11-27] MEDS: Ferrous Sulfate 324 MG TABLET.DR PO (08:59)
[2022-11-27] MEDS: 0.9 % Sodium Chloride Flush 3 ML SYRINGE IVFLUSH ×2 (09:01→21:13)
[2022-11-27] MEDS: Insulin Glargine,Hum.rec.anlog 100 UNIT/ML 10 ML VIAL 24 UNIT SUBCUT ×2 (09:01→23:01)
--- NOTE | 2022-11-27 10:35 | HO.PM.IMPN ---
Subjective Subjective Date of Service: 11/28/22 Interval History: no ronn issues, renal failure unchanged, K is still high c/o left flank pain Review of Systems Gen: no fever Resp: no sob, no cough CV: no chest, +HORN, + leg edema GI: No n/v, no abd pain Neuro: No confusion Physical Exam Vital Signs: Vital Signs: Last Vital Signs Temp 97.1 F 11/27/22 07:49 Pulse 67 11/27/22 07:49 Resp 17 11/27/22 07:49 BP 145/67 H 11/27/22 07:49 Pulse Ox 97 11/27/22 07:49 O2 Del Method Room Air 11/27/22 07:49 BMI result Body Mass Index 53.7 Const: Other: Constitutional - Awake and Alert, No apparent distress Eyes - PERRLA, EOMI Cardiovascular - S1S2, RRR, 2+ BLE edema Respiratory -clear, Extremities - no calf tenderness bilaterally, no swelling Skin - Warm/Dry Neurological - Alert & oriented x3 Psychological - Appropriate affect Objective Data Active Medications Acetaminophen (Acetaminophen 325 Mg Tablet) 650 mg PO Q6H PRN PRN Reason: Pain, Mild (Pain Scale 1-3) Last Admin: 11/27/22 08:58 Dose: 650 mg Documented By: CONSTANTIN Al Hydroxide/Mg Hydroxide (Magnesium Hydrox/Alum Hydrox 30 Ml Oral.Susp) 30 ml PO Q4H PRN PRN Reason: Heartburn/Nausea Albuterol Sulfate (Albuterol Sulfate (0.083%) 2.5 Mg/3 Ml Vial.Neb) 2.5 mg INHALE TID PRN PRN Reason: wheezing Albuterol Sulfate (Albuterol Sulfate 90 Mcg 8 Gm Inhaler) 2 puff INHALE Q4H PRN PRN Reason: Shortness Of Breath Amlodipine Besylate (Amlodipine Besylate 10 Mg Tablet) 10 mg PO DAILY [facility]; Protocol Last Admin: 11/27/22 08:58 Dose: 10 mg Documented By: CONSTANTIN Aspirin (Aspirin Enteric Coated 81 Mg Tablet.) 81 mg PO DAILY [facility] Last Admin: 11/27/22 08:59 Dose: 81 mg Documented By: CONSTANTIN Atorvastatin Calcium (Atorvastatin Calcium 80 Mg Tablet) 80 mg PO DAILY [facility] Last Admin: 11/27/22 08:59 Dose: 80 mg Documented By: CONSTANTIN Dextrose (Dextrose 50 % 25 Gm/50 Ml Syringe) 25 gm IVPUSH Q15M PRN; Protocol PRN Reason: per Hypoglycemia Standing Ord. Ferrous Sulfate (Ferrous Sulfate 324 Mg Tablet.) 324 mg PO DAILY [facility] Last Admin: 11/27/22 08:59 Dose: 324 mg Documented By: CONSTANTIN Fluticasone/Vilanterol (Fluticasone/Vilanterol 100/25 Blst.W.Dev) 1 puff INHALE RDAILY [facility] Last Admin: 11/26/22 09:06 Dose: Not Given Documented By: LAILA Non-Admin Reason: Med Not Available Furosemide (Furosemide 100 Mg/10 Ml Vial) 80 mg IVPUSH Q12H [facility]; Protocol Last Admin: 11/27/22 08:57 Dose: 80 mg Documented By: CONSTANTIN Glucose (Glucose Gel 15 Gm Gel..Gram.) 15 gm PO Q15M PRN; Protocol PRN Reason: per Hypoglycemia Standing Ord. Last Admin: 11/26/22 07:22 Dose: 15 gm Documented By: CONSTANTIN Heparin Sodium (Porcine) (Heparin Sodium,Porcine 5,000 Unit/Ml Vial) 5,000 unit SUBCUT Q12H [facility] Last Admin: 11/27/22 06:40 Dose: 5,000 unit Documented By: IZZY Insulin Glargine (Insulin Glargine,Hum.Rec.Anlog 100 Unit/Ml 10 Ml Vial) 24 unit SUBCUT BID [facility] Last Admin: 11/27/22 09:01 Dose: 24 unit Documented By: CONSTANTIN Insulin Human Lispro (Insulin Lispro 100 Unit/Ml 3 Ml Vial) 0 unit SUBCUT QIDACHS [facility]; Protocol Last Admin: 11/27/22 09:02 Dose: Not Given Documented By: CONSTANTIN Non-Admin Reason: No Insulin Coverage Magnesium Hydroxide (Milk Of Magnesia 30 Ml Oral.Susp) 30 ml PO DAILY PRN PRN Reason: Constipation Melatonin (Melatonin 3 Mg Tablet) 6 mg PO BEDTIME PRN PRN Reason: Insomnia Last Admin: 11/26/22 21:54 Dose: 6 mg Documented By: IZZY Omeprazole (Omeprazole 40 Mg Capsule.) 40 mg PO BID@0630,1630 [facility] Last Admin: 11/27/22 06:41 Dose: 40 mg Documented By: IZZY Ondansetron HCl (Ondansetron Hcl 4 Mg/2 Ml Vial) 4 mg IVPUSH Q8H PRN PRN Reason: Nausea and Vomiting Sertraline HCl (Sertraline Hcl 100 Mg Tablet) 100 mg PO DAILY [facility] Last Admin: 11/27/22 08:59 Dose: 100 mg Documented By: CONSTANTIN Sodium Chloride (0.9 % Sodium Chloride Flush 3 Ml Syringe) 3 ml IVFLUSH QSHIFT [facility] Last Admin: 11/27/22 09:01 Dose: 3 ml Documented By: CONSTANTIN Sodium Zirconium Cyclosilicate (Sodium Zirconium Cyclosilicate 10 Gm Powd.Pack) 10 gm PO DAILY [facility] Last Admin: 11/27/22 08:59 Dose: 10 gm Documented By: CONSTANTIN Sucralfate (Sucralfate 1 Gm Tablet) 1 gm PO QID [facility] Last Admin: 11/27/22 08:58 Dose: 1 gm Documented By: CONSTANTIN Tramadol HCl (Tramadol Hcl 50 Mg Tablet) 50 mg PO Q4H PRN PRN Reason: Pain, Moderate(Pain Scale 4-6) Last Admin: 11/25/22 07:04 Dose: 50 mg Documented By: RICARDA Trazodone HCl (Trazodone Hcl 100 Mg Tablet) 100 mg PO BEDTIME [facility] Last Admin: 11/26/22 20:27 Dose: 100 mg Documented By: TANISHA Vitamin D (Cholecalciferol (Vitamin D3) 25 Mcg Tablet) 50 mcg PO DAILY [facility] Last Admin: 11/27/22 08:59 Dose: 50 mcg Documented By: CONSTANTIN Labs 11/26/22 08:20 11/28/22 06:49 Labs: Laboratory Results - last 24 hr 11/26/22 11/26/22 11/26/22 10:58 16:53 19:42 Hold Purple Top Anion Gap Estim Creat Clear Calc Estimated GFR POC Glucose 78 85 112 Random Glucose Calcium Urine Color Urine Appearance Urine pH Ur Specific [place] Urine Protein Urine Glucose (UA) Urine Ketones Urine Blood Urine Nitrite Ur Leukocyte Esterase Urine RBC Urine WBC Ur Squamous Epith Cells Urine Bacteria Hyaline Casts U Random Total Protein Urine Creatinine Urine Microalbumin Microalb/Creat Ratio 11/26/22 11/27/22 11/27/22 20:45 05:43 07:47 Hold Purple Top SEE NOTE Anion Gap 14 Estim Creat Clear Calc 15.9 Estimated GFR 10 POC Glucose 67 Random Glucose 60 Calcium 8.5 Urine Color Yellow Urine Appearance Clear Urine pH 6.0 Ur Specific [place] 1.010 Urine Protein 300 (3+) H Urine Glucose (UA) 100 H Urine Ketones Negative Urine Blood Moderate (2+) H Urine Nitrite Negative Ur Leukocyte Esterase Moderate (2+) H Urine RBC 6-10 H Urine WBC 11-20 Ur Squamous Epith Cells 3-5 Urine Bacteria 4+ Hyaline Casts 3-5 U Random Total Protein 252 H Urine Creatinine 25.49 Urine Microalbumin 1451.0 Microalb/Creat Ratio 5692.4 H Microbiology Microbiology Results: Microbiology 11/24/22 17:10 Urine Culture - Final Urine clean catch - Urine berg top Assessment and Plan (1) Acute kidney injury: Status: Acute (2) Anemia: Status: Acute (3) CKD (chronic kidney disease) stage 3, GFR 30-59 ml/min: Status: Acute (4) Cardiorenal syndrome: Status: Acute Plan 66yo F with DM2, CKD3, benign brain tumor, seizure disorder, HTN, nephrolithiasis, morbid obesity here with increaseing leg edema and worsening renal failure. Renal function continues to worsen as well as worsening anemia. BLE edema pain improved per patient #Increasing leg edema, slight increase in BNP, renal failure--suspect advancing CKD vs acute cardiorenal syndrome, no overt heart failure -Creat 4.06-->4.20-->4.27--> 4.7 -IV Lasix -Avoid nephrotoxins -Low sodium diet -follow renal function -Nephrology consult pending ? nearing dialysis #HypERkalemia--[place], low K diet #Left flank Pain--Non contrast CT to rule out stone # DM2 - basal/bolus insulin #Acute on chronic anemia, likely related CKD -H/H worsening, hgb 6.9 01/25 -transfused 1unit with improvment Hgb 8 now -will check stool occult blood # HTN - continue amlodipine, hold Losartan d/t renal failure #Progressing CKD with worsening failure, Nephrology to further advise # sz disorder--not on meds at this time # mood disorder - continue duloxetine + quetiapine # VTE prophylaxis: Heparin # code status: full #Morbid obesity--weight loss advised DVT prophylaxis: Heparin Full code Pt requires ongoing inpatient stay due to worsening renal function requiring expert consultation now with acute on chronic anemia requiring blood transfusion. Patient requires close monitoring of renal function, electrolytes, and blood counts Time Spent With Patient Time: Total time managing care of this patient today ____ minutes. Quality Stroke Does the patient have a stroke diagnosis?: No VTE Prior VTE?: No VTE Risk Level:: Medical - moderate - high VTE Device Contraindication: Treatment Not Indicated VTE Drug Contraindication: N/A - Med Ordered
[2022-11-27 11:40] LABS: Glucose, Whole Blood 114 mg/dL (60-115)
[2022-11-27] MEDS: Fluticasone/Vilanterol 100/25 BLST.W.DEV 1 PUFF INHALE (11:48)
--- NOTE | 2022-11-27 14:43 | P.PNNP_ITS ---
Subjective Subjective Date of Service: 11/27/22 Interval history: Seen and examined, events noted Physical Exam 2 Vital Signs: Vital Signs: Last Vital Signs Temp 97.3 F 11/27/22 11:16 Pulse 78 11/27/22 11:48 Resp 16 11/27/22 11:48 BP 174/73 H 11/27/22 11:16 Pulse Ox 97 11/27/22 11:16 O2 Del Method Room Air 11/27/22 11:16 BMI result Body Mass Index 53.7 Extrem: General: Yes pedal edema Objective Data Labs 11/26/22 08:20 11/27/22 05:43 Labs: Laboratory Results - last 24 hr 11/26/22 11/26/22 11/26/22 16:53 19:42 20:45 Hold Purple Top Sodium Potassium Chloride Carbon Dioxide Anion Gap BUN Creatinine Estim Creat Clear Calc Estimated GFR POC Glucose 85 112 Random Glucose Calcium Urine Color Yellow Urine Appearance Clear Urine pH 6.0 Ur Specific [place] 1.010 Urine Protein 300 (3+) H Urine Glucose (UA) 100 H Urine Ketones Negative Urine Blood Moderate (2+) H Urine Nitrite Negative Ur Leukocyte Esterase Moderate (2+) H Urine RBC 6-10 H Urine WBC 11-20 Ur Squamous Epith Cells 3-5 Urine Bacteria 4+ Hyaline Casts 3-5 U Random Total Protein 252 H Urine Creatinine 25.49 Urine Microalbumin 1451.0 Microalb/Creat Ratio 5692.4 H 11/27/22 11/27/22 11/27/22 05:43 07:47 11:15 Hold Purple Top SEE NOTE Sodium 139 Potassium 5.5 H Chloride 113 H Carbon Dioxide 18 L Anion Gap 14 BUN 73 H Creatinine 4.47 H* Estim Creat Clear Calc 15.9 Estimated GFR 10 POC Glucose 67 114 Random Glucose 60 Calcium 8.5 Urine Color Urine Appearance Urine pH Ur Specific [place] Urine Protein Urine Glucose (UA) Urine Ketones Urine Blood Urine Nitrite Ur Leukocyte Esterase Urine RBC Urine WBC Ur Squamous Epith Cells Urine Bacteria Hyaline Casts U Random Total Protein Urine Creatinine Urine Microalbumin Microalb/Creat Ratio Microbiology Microbiology Results: Microbiology 11/24/22 17:10 Urine clean catch - Urine berg top Urine Culture - Final Procedures Date of Service Date of Service: 11/27/22 Assessment & Plan Assessment and plan (1) Acute kidney injury: Status: Acute (2) Anemia: Status: Acute (3) CKD (chronic kidney disease) stage 3, GFR 30-59 ml/min: Status: Acute (4) Cardiorenal syndrome: Status: Acute Plan MICHAEL: 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 Progress Note: Quality Stroke Does the patient have a stroke diagnosis?: No
[2022-11-27 16:58] LABS: Glucose, Whole Blood 101 mg/dL (60-115)
--- NOTE | 2022-11-27 18:40 | PC.NURSE ---
Pt POC remains low in am Dr Ronquillo notified plan to adjust nighttime insulin. c/o pain to right flank this am medicated with Tylenol with good effect. IV lasix given per order this am. Purewick in place urine remains cloudy pt encouraged to drink water vs juice. US preformed at bedside in am. Off unit in afternoon for CT abdomen. Refused to get OOB to chair this am feels weak per pt. Will continue to monitor and report changes
[2022-11-27 20:16] LABS: Glucose, Whole Blood 124 mg/dL (60-115)
[2022-11-27] MEDS: traMADoL HCL 50 MG TABLET PO (21:13)
[2022-11-27] MEDS: traZODone HCL 100 MG TABLET PO (21:13)
[2022-11-28] VITALS (8 sets, daily range): BP systolic 119–155; BP diastolic 59–69; PULSE 67–77; RESP 12–20; TEMP 36.3–37; O2SAT 96–98; BMI 51.0
[2022-11-28] MEDS: traMADoL HCL 50 MG TABLET PO ×2 (02:24→21:03)
[2022-11-28] MEDS: Heparin Sodium,Porcine 5,000 UNIT/ML VIAL 5000 UNIT SUBCUT ×2 (06:15→17:49)
[2022-11-28] MEDS: Omeprazole 40 MG CAPSULE.DR PO ×2 (06:15→15:55)
[2022-11-28 07:27] LABS: Anion Gap 13 (12-20); Blood Urea Nitrogen 78 mg/dL (9-16); Calcium 8.5 mg/dL (8.4-10.2); Carbon Dioxide 18 mmol/L (22-29); Chloride 113 mmol/L (96-108); Estimated Glomerular Filt Rate 10; Glucose Random 57 mg/dL (60-115); Potassium 4.9 mmol/L (3.3-5.1); Sodium 139 mmol/L (135-145)
[2022-11-28] MEDS: Glucose Gel 15 GM GEL..GRAM. PO ×2 (07:32→07:54)
[2022-11-28] MEDS: Fluticasone/Vilanterol 100/25 BLST.W.DEV 1 PUFF INHALE (07:34)
[2022-11-28 07:35] LABS: Glucose, Whole Blood 52 mg/dL (60-115)
[2022-11-28 07:59] LABS: Glucose, Whole Blood 54 mg/dL (60-115)
[2022-11-28 08:19] LABS: Glucose, Whole Blood 90 mg/dL (60-115)
[2022-11-28 08:19] LABS: HBS Num1 3.74 mIU/mL (0-7.99); HBc Num1 0.17 S/CO (0.00-0.79); HBsAGNum1 0.28 S/CO (0.00-0.99); Hepatitis B Core Antibody Nonreactive (Nonreactive); Hepatitis B Surface Antigen Negative (Negative); ~HepC Num1 0.15 S/CO (0.00-0.79); ~Hepatitis B Surface Antibody NONREACTIVE (Nonreactive); ~Hepatitis C Antibody Nonreactive (Nonreactive)
[2022-11-28] MEDS: Aspirin Enteric Coated 81 MG TABLET.DR PO (09:01)
[2022-11-28] MEDS: Sodium Zirconium Cyclosilicate 10 GM POWD.PACK PO (09:01)
[2022-11-28] MEDS: Acetaminophen 325 MG TABLET 650 MG PO (09:01)
[2022-11-28] MEDS: Ferrous Sulfate 324 MG TABLET.DR PO (09:01)
[2022-11-28] MEDS: Sucralfate 1 GM TABLET PO ×3 (09:02→21:03)
[2022-11-28] MEDS: Furosemide 100 MG/10 ML VIAL 80 MG IVPUSH ×2 (09:02→21:03)
[2022-11-28] MEDS: amLODIPine Besylate 10 MG TABLET PO (09:02)
[2022-11-28] MEDS: Sertraline HCL 100 MG TABLET PO (09:02)
[2022-11-28] MEDS: Atorvastatin Calcium 80 MG TABLET PO (09:02)
[2022-11-28] MEDS: Cholecalciferol (Vitamin D3) 25 MCG TABLET 50 MCG PO (09:02)
[2022-11-28] MEDS: 0.9 % Sodium Chloride Flush 3 ML SYRINGE IVFLUSH ×3 (09:02→21:04)
--- NOTE | 2022-11-28 10:21 | MHC.CM.PN ---
Per ROUNDS discussion, Patient is not yet medically cleared for dc (IV Lasix and ? of need for new HD); Home/resume services is the goal and CM will continue to follow.
[2022-11-28 11:34] LABS: Glucose, Whole Blood 97 mg/dL (60-115)
--- NOTE | 2022-11-28 11:40 | P.PNIM_ITS ---
Subjective Subjective Date of Service: 11/28/22 Interval History: no ronn issues, renal failure unchanged, K is still high CT of abd has cristel non-obstructing renal stone, hypoglycemia this morning Review of Systems no sob, no abd pain, elbow pain Physical Exam 2 Vital Signs: Vital Signs: Last Vital Signs Temp 97.4 F 11/28/22 07:51 Pulse 77 11/28/22 07:51 Resp 16 11/28/22 07:51 BP 152/66 H 11/28/22 07:51 Pulse Ox 97 11/28/22 07:51 O2 Del Method Room Air 11/28/22 07:51 BMI result Body Mass Index 51.0 Extrem: General: Yes pedal edema Objective Data Active Medications Acetaminophen (Acetaminophen 325 Mg Tablet) 650 mg PO Q6H PRN PRN Reason: Pain, Mild (Pain Scale 1-3) Last Admin: 11/28/22 09:01 Dose: 650 mg Documented By: CONSTANTIN Al Hydroxide/Mg Hydroxide (Magnesium Hydrox/Alum Hydrox 30 Ml Oral.Susp) 30 ml PO Q4H PRN PRN Reason: Heartburn/Nausea Albuterol Sulfate (Albuterol Sulfate (0.083%) 2.5 Mg/3 Ml Vial.Neb) 2.5 mg INHALE TID PRN PRN Reason: wheezing Albuterol Sulfate (Albuterol Sulfate 90 Mcg 8 Gm Inhaler) 2 puff INHALE Q4H PRN PRN Reason: Shortness Of Breath Amlodipine Besylate (Amlodipine Besylate 10 Mg Tablet) 10 mg PO DAILY [facility]; Protocol Last Admin: 11/28/22 09:02 Dose: 10 mg Documented By: CONSTANTIN Aspirin (Aspirin Enteric Coated 81 Mg Tablet.) 81 mg PO DAILY [facility] Last Admin: 11/28/22 09:01 Dose: 81 mg Documented By: CONSTANTIN Atorvastatin Calcium (Atorvastatin Calcium 80 Mg Tablet) 80 mg PO DAILY [facility] Last Admin: 11/28/22 09:02 Dose: 80 mg Documented By: CONSTANTIN Dextrose (Dextrose 50 % 25 Gm/50 Ml Syringe) 25 gm IVPUSH Q15M PRN; Protocol PRN Reason: per Hypoglycemia Standing Ord. Ferrous Sulfate (Ferrous Sulfate 324 Mg Tablet.) 324 mg PO DAILY [facility] Last Admin: 11/28/22 09:01 Dose: 324 mg Documented By: CONSTANTIN Fluticasone/Vilanterol (Fluticasone/Vilanterol 100/25 Blst.W.Dev) 1 puff INHALE RDAILY [facility] Last Admin: 11/28/22 07:34 Dose: 1 puff Documented By: DANNA Furosemide (Furosemide 100 Mg/10 Ml Vial) 80 mg IVPUSH Q12H [facility]; Protocol Last Admin: 11/28/22 09:02 Dose: 80 mg Documented By: CONSTANTIN Glucose (Glucose Gel 15 Gm Gel..Gram.) 15 gm PO Q15M PRN; Protocol PRN Reason: per Hypoglycemia Standing Ord. Last Admin: 11/28/22 07:54 Dose: 15 gm Documented By: CONSTANTIN Heparin Sodium (Porcine) (Heparin Sodium,Porcine 5,000 Unit/Ml Vial) 5,000 unit SUBCUT Q12H [facility] Last Admin: 11/28/22 06:15 Dose: 5,000 unit Documented By: DESTINEY Insulin Glargine (Insulin Glargine,Hum.Rec.Anlog 100 Unit/Ml 10 Ml Vial) 24 unit SUBCUT BEDTIME [facility] Insulin Human Lispro (Insulin Lispro 100 Unit/Ml 3 Ml Vial) 0 unit SUBCUT QIDACHS [facility]; Protocol Last Admin: 11/28/22 07:31 Dose: Not Given Documented By: CONSTANTIN Non-Admin Reason: No Insulin Coverage Magnesium Hydroxide (Milk Of Magnesia 30 Ml Oral.Susp) 30 ml PO DAILY PRN PRN Reason: Constipation Melatonin (Melatonin 3 Mg Tablet) 6 mg PO BEDTIME PRN PRN Reason: Insomnia Last Admin: 11/26/22 21:54 Dose: 6 mg Documented By: IZZY Omeprazole (Omeprazole 40 Mg Capsule.Dr) 40 mg PO BID@0630,1630 [facility] Last Admin: 11/28/22 06:15 Dose: 40 mg Documented By: DESTINEY Ondansetron HCl (Ondansetron Hcl 4 Mg/2 Ml Vial) 4 mg IVPUSH Q8H PRN PRN Reason: Nausea and Vomiting Sertraline HCl (Sertraline Hcl 100 Mg Tablet) 100 mg PO DAILY [facility] Last Admin: 11/28/22 09:02 Dose: 100 mg Documented By: CONSTANTIN Sodium Chloride (0.9 % Sodium Chloride Flush 3 Ml Syringe) 3 ml IVFLUSH QSHIFT [facility] Last Admin: 11/28/22 09:02 Dose: 3 ml Documented By: CONSTANTIN Sodium Zirconium Cyclosilicate (Sodium Zirconium Cyclosilicate 10 Gm Powd.Pack) 10 gm PO DAILY [facility] Last Admin: 11/28/22 09:01 Dose: 10 gm Documented By: CONSTANTIN Sucralfate (Sucralfate 1 Gm Tablet) 1 gm PO QID [facility] Last Admin: 11/28/22 09:02 Dose: 1 gm Documented By: CONSTANTIN Tramadol HCl (Tramadol Hcl 50 Mg Tablet) 50 mg PO Q4H PRN PRN Reason: Pain, Moderate(Pain Scale 4-6) Last Admin: 11/28/22 02:24 Dose: 50 mg Documented By: DESTINEY Trazodone HCl (Trazodone Hcl 100 Mg Tablet) 100 mg PO BEDTIME [facility] Last Admin: 11/27/22 21:13 Dose: 100 mg Documented By: DESTNIEY Vitamin D (Cholecalciferol (Vitamin D3) 25 Mcg Tablet) 50 mcg PO DAILY [facility] Last Admin: 11/28/22 09:02 Dose: 50 mcg Documented By: CONSTANTIN Labs 11/26/22 08:20 11/28/22 06:49 Labs: Laboratory Results - last 24 hr 11/26/22 11/27/22 11/27/22 20:30 11:15 16:23 Anion Gap Estim Creat Clear Calc Estimated GFR POC Glucose 114 101 Random Glucose Calcium Hep Bs Antigen Negative Hep Bs Antibody NONREACTIVE Hep B Core Total Ab Nonreactive Hepatitis C Ab (EIA) Nonreactive 11/27/22 11/28/22 11/28/22 20:10 06:49 07:27 Anion Gap 13 Estim Creat Clear Calc 15.0 Estimated GFR 10 POC Glucose 124 H 52 L* Random Glucose 57 L* Calcium 8.5 Hep Bs Antigen Hep Bs Antibody Hep B Core Total Ab Hepatitis C Ab (EIA) 11/28/22 11/28/22 11/28/22 07:50 08:15 11:26 Anion Gap Estim Creat Clear Calc Estimated GFR POC Glucose 54 L* 90 97 Random Glucose Calcium Hep Bs Antigen Hep Bs Antibody Hep B Core Total Ab Hepatitis C Ab (EIA) Assessment and Plan (1) Acute kidney injury: Status: Acute (2) Anemia: Status: Acute (3) CKD (chronic kidney disease) stage 3, GFR 30-59 ml/min: Status: Acute (4) Cardiorenal syndrome: Status: Acute Plan 66yo F with DM2, CKD3, benign brain tumor, seizure disorder, HTN, nephrolithiasis, morbid obesity here with increaseing leg edema and worsening renal failure. Renal function continues to worsen as well as worsening anemia. BLE edema pain improved per patient #Increasing leg edema, slight increase in BNP, renal failure--suspect advancing CKD vs acute cardiorenal syndrome, no overt heart failure -Creat 4.06-->4.20-->4.27--> 4.7 -IV Lasix -Avoid nephrotoxins -Low sodium diet and low potassium diet -follow renal function -Nephrology consult pending ? nearing dialysis #HypERkalemia--Lokelma, low K diet K is normal today #Left flank Pain--Non contrast CT to rule out stone # DM2 - basal/bolus insulin #Acute on chronic anemia, likely related CKD -H/H worsening, hgb 6.9 01/25 -transfused 1unit with improvment Hgb 8 now -will check stool occult blood # HTN - continue amlodipine, hold Losartan d/t renal failure #Progressing CKD with worsening failure, Nephrology to further advise # sz disorder--not on meds at this time # mood disorder - continue duloxetine + quetiapine # VTE prophylaxis: Heparin # code status: full #Morbid obesity--weight loss advised DVT prophylaxis: Heparin Full code Pt requires ongoing inpatient stay due to worsening renal function requiring expert consultation now with acute on chronic anemia requiring blood transfusion. Patient requires close monitoring of renal function, electrolytes, and blood counts Time Spent With Patient Time: Total time managing care of this patient today ____ minutes. Quality Stroke Does the patient have a stroke diagnosis?: No VTE Prior VTE?: No VTE Risk Level:: Medical - moderate - high VTE Device Contraindication: Treatment Not Indicated VTE Drug Contraindication: N/A - Med Ordered
--- NOTE | 2022-11-28 12:04 | CONS_ITS ---
DATE OF SERVICE: 11/26/2022 REASON FOR CONSULTATION: I was asked to see the patient to assist in evaluation and management of the patient's acute kidney injury on rapidly progressive renal function as reflected by her creatinine increasing from 1.6 to 1.8 range going back to April of this year and since that time the renal function has steadily gotten worse, and in October, the creatinine was 3.8; all in the backdrop of underlying diabetes and severe nephrotic syndrome with a previous urine protein-creatinine ratio of 17 g of protein per 1 g of creatinine in the past. She now presents to the hospital, noted to have increasing swelling in her legs and worsening renal function, so she is admitted to the hospital. HISTORY OF PRESENT ILLNESS: In summary, she is a 66-year-old type 2 diabetic, again with relatively rapid loss of renal function over the past 6 months, history of a benign brain tumor, seizure disorder, hypertension, kidney stones, morbid obesity, are all listed for her chronic medical problems. The patient's main complaint is swelling of the legs and some shortness of breath with exertion. She denies any flank pain, gross hematuria or dysuria. As mentioned previously, her creatinine was in the 1.6 to 1.8 range back in April of this year and has rapidly worsened and previous urine protein-creatinine ratio showed 17 g of protein per 1 g of creatinine. PAST MEDICAL HISTORY: As outlined above. MEDICATIONS ON ADMISSION: Noted in the admitting note, include insulin, Norvasc, losartan, Lasix 40 mg twice a day are all listed. ALLERGIES: SHE HAS NO KNOWN DRUG ALLERGIES. MEDICATIONS HERE IN THE HOSPITAL: Noted in the MAR. She has been given a dose of Lokelma and started back on some diuretics. SOCIAL HISTORY: She is a nonsmoker, nondrinker. No illicit drug use and denies taking NSAIDs. FAMILY HISTORY: Notable for kidney stones, coronary disease, and lung cancer in the family. REVIEW OF SYSTEMS: As noted above. PHYSICAL EXAMINATION: VITAL SIGNS: Blood pressure 155/60 with a heart rate in the 70s. HEAD AND NECK: Head: Atraumatic and normocephalic. Neck: Supple. Mucous membranes are moist. LUNGS: Decreased breath sounds at bases. CARDIAC: Regular rate and rhythm without rub. ABDOMEN: Obese, soft, nontender with no CVA tenderness. EXTREMITIES: Show 2 to 3+ edema up to the thighs bilaterally. There is no asterixis. LABORATORY DATA: Labs from today showed hemoglobin 8.3, hematocrit 26.2; on admission her hemoglobin was 6.9 yesterday. Platelet count 177. Sodium 137, potassium 5.6, chloride 113, bicarb 17, BUN 66, creatinine 4.27. Serum albumin was 3.1. Her creatinine on admission was 4.12 and back in October was 3.8, and then going back in time as mentioned in April her creatinine was 1.6 to 1.8. There are no recent immunology or serology studies. There is a urine study from August, which showed 17 g of protein per 1 g of creatinine. IMPRESSION: A 66-year-old diabetic, hypertensive patient with a history of nephrotic syndrome and rapid loss of renal function over the past 6 months, admitted to the hospital with symptomatic hypervolemia. 1. Rapidly progressive loss of renal function. This is most consistent with progressive diabetic hypertensive renal disease. This severe nephrotic syndrome in the past does raise concern about a nondiabetic cause such as membranous glomerulonephritis, focal segmental glomerulosclerosis or minimal change disease with significant renal impairment. Additionally, IgA nephropathy would be a concern. 2. She has had kidney stones in the past, but no flank pain, so it sounds like that she has obstructive uropathy. There is nothing to suggest an acute tubular necrosis as she has had no hypotensive events. 3. Marked hypervolemia. This is due to a combination of her advanced renal dysfunction and a history of nephrotic syndrome. Need to rule out underlying cardiac and liver problems that could contribute to fluid retention. 4. Anemia. She was transfused. We will need to work her up for both of EPO or iron deficiency, which she certainly is at risk for. In addition, need to rule out underlying myeloma which could affect the kidneys and causing anemia. RECOMMENDATIONS: At this time include the following. Urinalysis, spot urine for protein and creatinine. Increase her diuretics. Complete serologies. We will need to consider pros and cons of possible kidney biopsy. Would obtain a cardiac echo. Unfortunately, the patient has really advanced kidney disease and may be heading fast toward dialysis. Would protect her nondominant arm. We will follow the patient closely with the team. MD MELI Alan/SILVIA / [id number]
[2022-11-28 14:08] LABS: Kappa/Lambda Lt Ch Free Ratio 1.93 (0.26-1.65); Lambda Light Chain, Free Serum 64.7 mg/L (5.7-26.3)
--- NOTE | 2022-11-28 14:46 | P.CDIM_ITS ---
PROVIDER RESPONSE TEXT: To clarify, the appropriate diagnosis supported by the clinical indicators: Diabetes mellitus Type 2 with hypoglycemia QUERY TEXT: PHYSICIAN'S DOCUMENTATION REQUEST Date of Query: 11/28/2022 08:51 AM EDT Patient Name: Lori Land Admit Date: 11/24/2022 Dear Seth Ronquillo, A review of the medical record indicates additional documentation may be needed. Please review below and update the documentation accordingly. Clinical Indicators: LAB FINDINGS 11/24 - POC glucose 47 L Insulin Please clarify the following regarding the Complications of Diabetes Mellitus (DM): Diabetes mellitus Type 2 with hypoglycemia Other please specify Other (explain)Clinically unable to determine (explain)Thank you, Benita Wilkins, CCS, CDIS Use of terms such as suspected, likely, concern for, or probable (associated with a specific diagnosi s that is being evaluated, monitored, or treated as if it exists) are acceptable and can be coded in the inpatient se tting, when documented at the time of discharge. Please use your independent medical judgment in providing your response. THIS QUERY IS PART OF THE PERMANENT MEDICAL RECORD
[2022-11-28 15:23] LABS: Anti Nuclear Antibody Screen NEGATIVE (NEGATIVE)
[2022-11-28] MEDS: oxyCODONE HCl Immed Release 5 MG TABLET PO (15:55)
[2022-11-28 16:16] LABS: Glucose, Whole Blood 130 mg/dL (60-115)
[2022-11-28 20:09] LABS: Myeloperoxidase Antibody <1.0 AI; Proteinase 3 PR3 Antibodies <1.0 AI
[2022-11-28 20:41] LABS: Glucose, Whole Blood 123 mg/dL (60-115)
[2022-11-28] MEDS: traZODone HCL 100 MG TABLET PO (21:03)
--- NOTE | 2022-11-28 21:17 | PM.PNNEP ---
Subjective Subjective Date of Service: 11/28/22 Interval history: Seen and exmained, c/o flank pain No GH feels less swollen Physical Exam Vital Signs: Vital Signs: Last Vital Signs Temp 98.6 F 11/28/22 19:46 Pulse 71 11/28/22 19:46 Resp 18 11/28/22 19:46 BP 155/69 H 11/28/22 19:46 Pulse Ox 97 11/28/22 19:46 O2 Del Method Room Air 11/28/22 19:46 BMI result Body Mass Index 51.0 Extrem: General: Yes pedal edema Objective Data Labs 11/26/22 08:20 11/28/22 06:49 Labs: Laboratory Results - last 24 hr 11/26/22 11/26/22 11/28/22 20:06 20:30 06:49 Sodium 139 Potassium 4.9 Chloride 113 H Carbon Dioxide 18 L Anion Gap 13 BUN 78 H Creatinine 4.57 H* Estim Creat Clear Calc 15.0 Estimated GFR 10 POC Glucose Random Glucose 57 L* Calcium 8.5 GISSELL Screen NEGATIVE Proteinase 3 (PR3) Ab <1.0 Myeloperoxidase Ab <1.0 Free [place] LC, Quant 125.0 H Free Lambda LC, Quant 64.7 H Free [place]/Lambda Ratio 1.93 H Hep Bs Antigen Negative Hep Bs Antibody NONREACTIVE Hep B Core Total Ab Nonreactive Hepatitis C Ab (EIA) Nonreactive 11/28/22 11/28/22 11/28/22 07:27 07:50 08:15 Sodium Potassium Chloride Carbon Dioxide Anion Gap BUN Creatinine Estim Creat Clear Calc Estimated GFR POC Glucose 52 L* 54 L* 90 Random Glucose Calcium GISSELL Screen Proteinase 3 (PR3) Ab Myeloperoxidase Ab Free [place] LC, Quant Free Lambda LC, Quant Free [place]/Lambda Ratio Hep Bs Antigen Hep Bs Antibody Hep B Core Total Ab Hepatitis C Ab (EIA) 11/28/22 11/28/22 11/28/22 11:26 15:55 20:24 Sodium Potassium Chloride Carbon Dioxide Anion Gap BUN Creatinine Estim Creat Clear Calc Estimated GFR POC Glucose 97 130 H 123 H Random Glucose Calcium GISSELL Screen Proteinase 3 (PR3) Ab Myeloperoxidase Ab Free [place] LC, Quant Free Lambda LC, Quant Free [place]/Lambda Ratio Hep Bs Antigen Hep Bs Antibody Hep B Core Total Ab Hepatitis C Ab (EIA) Microbiology Microbiology Results: Microbiology 11/24/22 17:10 Urine clean catch - Urine berg top Urine Culture - Final Procedures Date of Service Date of Service: 11/28/22 Assessment & Plan Assessment and plan (1) Acute kidney injury: Status: Acute (2) Anemia: Status: Acute (3) CKD (chronic kidney disease) stage 3, GFR 30-59 ml/min: Status: Acute (4) Cardiorenal syndrome: Status: Acute Plan MICHAEL: c/w CRSyn on top of rapidly prog CKD from DN/HTN renal si with NSyn; other causing being r/o with sero/urine studies; ques component of Nephrosarca and CRSyn that may respond to diuresis with decr SCr CKD with relatively rapid loss of renal func over past 6 months Cr 1.8---> 4.5 over past 6 months Nephrotic Syndrome: c/w DN but need to r/o other causes with sero studies R flank pain: needs CT to r/o kidney stones MSK aches: r/o gout flare REC: cont diuresis, track renal func; sero as ordered; avoid Ntoxins; protect non-dominat arm for AVF; check UAL Will follow w team Time Spent With Patient Time: Total time managing care of this patient today ____ minutes. Progress Note: Quality Stroke Does the patient have a stroke diagnosis?: No
[2022-11-28 21:56] LABS: Uric Acid 7.8 mg/dL (2.4-5.7)
[2022-11-29] VITALS (7 sets, daily range): BP systolic 132–172; BP diastolic 65–74; PULSE 68–75; RESP 16–20; TEMP 36.3–37; O2SAT 96–99
[2022-11-29] MEDS: Omeprazole 40 MG CAPSULE.DR PO ×2 (06:13→17:02)
[2022-11-29] MEDS: Heparin Sodium,Porcine 5,000 UNIT/ML VIAL 5000 UNIT SUBCUT ×2 (06:13→20:00)
[2022-11-29 07:41] LABS: Glucose, Whole Blood 99 mg/dL (60-115)
[2022-11-29] MEDS: Fluticasone/Vilanterol 100/25 BLST.W.DEV 1 PUFF INHALE (08:01)
[2022-11-29] MEDS: Ferrous Sulfate 324 MG TABLET.DR PO (09:13)
[2022-11-29] MEDS: traMADoL HCL 50 MG TABLET PO ×2 (09:13→21:12)
[2022-11-29] MEDS: Cholecalciferol (Vitamin D3) 25 MCG TABLET 50 MCG PO (09:13)
[2022-11-29] MEDS: amLODIPine Besylate 10 MG TABLET PO (09:13)
[2022-11-29] MEDS: Atorvastatin Calcium 80 MG TABLET PO (09:13)
[2022-11-29] MEDS: Sucralfate 1 GM TABLET PO ×4 (09:13→21:12)
[2022-11-29] MEDS: Aspirin Enteric Coated 81 MG TABLET.DR PO (09:13)
[2022-11-29] MEDS: Sertraline HCL 100 MG TABLET PO (09:14)
[2022-11-29] MEDS: 0.9 % Sodium Chloride Flush 3 ML SYRINGE IVFLUSH ×2 (09:14→17:03)
[2022-11-29 09:15] LABS: Anion Gap 13 (12-20); Blood Urea Nitrogen 77 mg/dL (9-16); Calcium 8.5 mg/dL (8.4-10.2); Carbon Dioxide 19 mmol/L (22-29); Chloride 111 mmol/L (96-108); Creatinine Clr Calc Pharmacy 13.9; Estimated Glomerular Filt Rate 9; Glucose Random 108 mg/dL (60-115); Potassium 5.1 mmol/L (3.3-5.1); Sodium 138 mmol/L (135-145)
--- NOTE | 2022-11-29 10:44 | P.PNIM_ITS ---
Subjective Subjective Date of Service: 11/29/22 Interval History: she is c/o right shoulder pain, Cr is a bit higher, nl k Review of Systems right shoulder pain Physical Exam 2 Vital Signs: Vital Signs: Last Vital Signs Temp 97.8 F 11/29/22 07:32 Pulse 74 11/29/22 08:01 Resp 18 11/29/22 08:01 BP 138/65 11/29/22 07:32 Pulse Ox 98 11/29/22 07:32 O2 Del Method Room Air 11/29/22 07:32 BMI result Body Mass Index 51.0 Const: Other: Constitutional - Awake and Alert, No apparent distress Eyes - PERRLA, EOMI Cardiovascular - S1S2, RRR, 2+ BLE edema Respiratory -clear, Extremities - no calf tenderness bilaterally, no swelling Skin - Warm/Dry Neurological - Alert & oriented x3 Psychological - Appropriate affect Extrem: General: Yes pedal edema Objective Data Active Medications Acetaminophen (Acetaminophen 325 Mg Tablet) 650 mg PO Q6H PRN PRN Reason: Pain, Mild (Pain Scale 1-3) Last Admin: 11/28/22 09:01 Dose: 650 mg Documented By: CONSTANTIN Al Hydroxide/Mg Hydroxide (Magnesium Hydrox/Alum Hydrox 30 Ml Oral.Susp) 30 ml PO Q4H PRN PRN Reason: Heartburn/Nausea Albuterol Sulfate (Albuterol Sulfate (0.083%) 2.5 Mg/3 Ml Vial.Neb) 2.5 mg INHALE TID PRN PRN Reason: wheezing Albuterol Sulfate (Albuterol Sulfate 90 Mcg 8 Gm Inhaler) 2 puff INHALE Q4H PRN PRN Reason: Shortness Of Breath Amlodipine Besylate (Amlodipine Besylate 10 Mg Tablet) 10 mg PO DAILY [facility]; Protocol Last Admin: 11/29/22 09:13 Dose: 10 mg Documented By: RUSS Aspirin (Aspirin Enteric Coated 81 Mg Tablet.) 81 mg PO DAILY [facility] Last Admin: 11/29/22 09:13 Dose: 81 mg Documented By: RUSS Atorvastatin Calcium (Atorvastatin Calcium 80 Mg Tablet) 80 mg PO DAILY [facility] Last Admin: 11/29/22 09:13 Dose: 80 mg Documented By: RUSS Dextrose (Dextrose 50 % 25 Gm/50 Ml Syringe) 25 gm IVPUSH Q15M PRN; Protocol PRN Reason: per Hypoglycemia Standing Ord. Ferrous Sulfate (Ferrous Sulfate 324 Mg Tablet.) 324 mg PO DAILY [facility] Last Admin: 11/29/22 09:13 Dose: 324 mg Documented By: RUSS Fluticasone/Vilanterol (Fluticasone/Vilanterol 100/25 Blst.W.Dev) 1 puff INHALE RDAILY [facility] Last Admin: 11/29/22 08:01 Dose: 1 puff Documented By: ROGELIO Furosemide (Furosemide 100 Mg/10 Ml Vial) 80 mg IVPUSH Q12H [facility]; Protocol Last Admin: 11/28/22 21:03 Dose: 80 mg Documented By: DESTINEY Glucose (Glucose Gel 15 Gm Gel..Gram.) 15 gm PO Q15M PRN; Protocol PRN Reason: per Hypoglycemia Standing Ord. Last Admin: 11/28/22 07:54 Dose: 15 gm Documented By: CONSTANTIN Heparin Sodium (Porcine) (Heparin Sodium,Porcine 5,000 Unit/Ml Vial) 5,000 unit SUBCUT Q12H [facility] Last Admin: 11/29/22 06:13 Dose: 5,000 unit Documented By: DESTINEY Insulin Glargine (Insulin Glargine,Hum.Rec.Anlog 100 Unit/Ml 10 Ml Vial) 24 unit SUBCUT BEDTIME [facility] Last Admin: 11/28/22 20:58 Dose: Not Given Documented By: DESTINEY Non-Admin Reason: per Insulin Human Lispro (Insulin Lispro 100 Unit/Ml 3 Ml Vial) 0 unit SUBCUT QIDACHS [facility]; Protocol Last Admin: 11/29/22 07:50 Dose: Not Given Documented By: RUSS Non-Admin Reason: No Insulin Coverage Magnesium Hydroxide (Milk Of Magnesia 30 Ml Oral.Susp) 30 ml PO DAILY PRN PRN Reason: Constipation Melatonin (Melatonin 3 Mg Tablet) 6 mg PO BEDTIME PRN PRN Reason: Insomnia Last Admin: 11/26/22 21:54 Dose: 6 mg Documented By: IZZY Omeprazole (Omeprazole 40 Mg Capsule.) 40 mg PO BID@0630,1630 [facility] Last Admin: 11/29/22 06:13 Dose: 40 mg Documented By: DESTINEY Ondansetron HCl (Ondansetron Hcl 4 Mg/2 Ml Vial) 4 mg IVPUSH Q8H PRN PRN Reason: Nausea and Vomiting Oxycodone HCl (Oxycodone Hcl Immed Release 5 Mg Tablet) 5 mg PO Q6H PRN PRN Reason: Pain, Severe (Pain Scale 7-10) Last Admin: 11/28/22 15:55 Dose: 5 mg Documented By: QUANG Sertraline HCl (Sertraline Hcl 100 Mg Tablet) 100 mg PO DAILY [facility] Last Admin: 11/29/22 09:14 Dose: 100 mg Documented By: RUSS Sodium Chloride (0.9 % Sodium Chloride Flush 3 Ml Syringe) 3 ml IVFLUSH QSHIFT [facility] Last Admin: 11/29/22 09:14 Dose: 3 ml Documented By: RUSS Sodium Zirconium Cyclosilicate (Sodium Zirconium Cyclosilicate 10 Gm Powd.Pack) 10 gm PO DAILY [facility] Last Admin: 11/28/22 09:01 Dose: 10 gm Documented By: CONSTANTIN Sucralfate (Sucralfate 1 Gm Tablet) 1 gm PO QID [facility] Last Admin: 11/29/22 09:13 Dose: 1 gm Documented By: RUSS Tramadol HCl (Tramadol Hcl 50 Mg Tablet) 50 mg PO Q4H PRN PRN Reason: Pain, Moderate(Pain Scale 4-6) Last Admin: 11/29/22 09:13 Dose: 50 mg Documented By: RUSS Trazodone HCl (Trazodone Hcl 100 Mg Tablet) 100 mg PO BEDTIME [facility] Last Admin: 11/28/22 21:03 Dose: 100 mg Documented By: DESTINEY Vitamin D (Cholecalciferol (Vitamin D3) 25 Mcg Tablet) 50 mcg PO DAILY [facility] Last Admin: 11/29/22 09:13 Dose: 50 mcg Documented By: RUSS Labs 11/26/22 08:20 11/29/22 08:14 Labs: Laboratory Results - last 24 hr 11/26/22 11/26/22 11/28/22 20:06 20:30 06:49 Hold Purple Top Anion Gap Estim Creat Clear Calc Estimated GFR POC Glucose Random Glucose Uric Acid 7.8 H Calcium GISSELL Screen NEGATIVE Proteinase 3 (PR3) Ab <1.0 Myeloperoxidase Ab <1.0 Free [place] LC, Quant 125.0 H Free Lambda LC, Quant 64.7 H Free [place]/Lambda Ratio 1.93 H 11/28/22 11/28/22 11/28/22 11:26 15:55 20:24 Hold Purple Top Anion Gap Estim Creat Clear Calc Estimated GFR POC Glucose 97 130 H 123 H Random Glucose Uric Acid Calcium GISSELL Screen Proteinase 3 (PR3) Ab Myeloperoxidase Ab Free [place] LC, Quant Free Lambda LC, Quant Free [place]/Lambda Ratio 11/29/22 11/29/22 07:25 08:14 Hold Purple Top SEE NOTE Anion Gap 13 Estim Creat Clear Calc 13.9 Estimated GFR 9 POC Glucose 99 Random Glucose 108 Uric Acid Calcium 8.5 GISSELL Screen Proteinase 3 (PR3) Ab Myeloperoxidase Ab Free [place] LC, Quant Free Lambda LC, Quant Free [place]/Lambda Ratio Assessment and Plan (1) Cardiorenal syndrome: Status: Acute (2) CHF (congestive heart failure): Status: Acute (3) Acute kidney injury: Status: Acute Plan 66yo F with DM2, CKD3, benign brain tumor, seizure disorder, HTN, nephrolithiasis, morbid obesity here with increaseing leg edema and worsening renal failure. Renal function continues to worsen as well as worsening anemia. BLE edema pain improved per patient #Increasing leg edema, slight increase in BNP, renal failure--suspect advancing CKD vs acute cardiorenal syndrome, no overt heart failure -Creat 4.06-->4.20-->4.27--> 4.7-->4.9 -IV Lasix to PO today -Avoid nephrotoxins -Low sodium diet and low potassium diet -follow renal function -Nephrology following #HypERkalemia--Lokelma, low K diet K is normal today #Left flank Pain--Non contrast CT non obstructing stone # DM2 - basal/bolus insulin #Acute on chronic anemia, likely related CKD -H/H worsening, hgb 6.9 01/25 -transfused 1unit with improvment Hgb 8 now -will check stool occult blood Right should pain, xray # HTN - continue amlodipine, hold Losartan d/t renal failure #Progressing CKD with worsening failure, Nephrology to further advise # sz disorder--not on meds at this time # mood disorder - continue duloxetine + quetiapine # VTE prophylaxis: Heparin # code status: full #Morbid obesity--weight loss advised DVT prophylaxis: Heparin Full code Pt requires ongoing inpatient stay due to worsening renal function requiring expert consultation now with acute on chronic anemia requiring blood transfusion. Patient requires close monitoring of renal function, electrolytes, and blood counts Time Spent With Patient Time: Total time managing care of this patient today ____ minutes. Quality Stroke Does the patient have a stroke diagnosis?: No VTE Prior VTE?: No VTE Risk Level:: Medical - moderate - high VTE Device Contraindication: Treatment Not Indicated VTE Drug Contraindication: N/A - Med Ordered
[2022-11-29 11:12] LABS: Glucose, Whole Blood 122 mg/dL (60-115)
[2022-11-29 11:19] LABS: Complement C3 138 mg/dL (83-193)
[2022-11-29] MEDS: oxyCODONE HCl Immed Release 5 MG TABLET PO (13:21)
[2022-11-29] MEDS: Torsemide 20 MG TABLET 40 MG PO (14:24)
[2022-11-29 15:48] LABS: Calcium (PTHI) 7.6 mg/dL (8.6-10.4); PTHI 121 pg/mL (16-77)
[2022-11-29 16:17] LABS: Glucose, Whole Blood 117 mg/dL (60-115)
--- NOTE | 2022-11-29 19:27 | P.PNNP_ITS ---
Subjective Subjective Date of Service: 11/29/22 Interval history: Seen and examiend, events noted Physical Exam 2 Vital Signs: Vital Signs: Last Vital Signs Temp 97.4 F 11/29/22 19:01 Pulse 69 11/29/22 19:01 Resp 20 11/29/22 19:01 BP 132/65 11/29/22 19:01 Pulse Ox 97 11/29/22 19:01 O2 Del Method Room Air 11/29/22 19:01 BMI result Body Mass Index 51.0 Extrem: General: Yes pedal edema Objective Data Labs 11/26/22 08:20 11/29/22 08:14 Labs: Laboratory Results - last 24 hr 11/26/22 11/26/22 11/28/22 20:06 20:30 06:49 Hold Purple Top Sodium Potassium Chloride Carbon Dioxide Anion Gap BUN Creatinine Estim Creat Clear Calc Estimated GFR POC Glucose Random Glucose Uric Acid 7.8 H Calcium PTH Intact 121 H Calcium (PTH Intact) 7.6 L GISSELL Titer TNP GISSELL Titer 2 TNP GISSELL Titer 3 TNP GISSELL Pattern TNP GISSELL Pattern 2 TNP GISSELL Pattern 3 TNP Proteinase 3 (PR3) Ab <1.0 Myeloperoxidase Ab <1.0 Complement C3 138 Complement C4 43 11/28/22 11/29/22 11/29/22 20:24 07:25 08:14 Hold Purple Top SEE NOTE Sodium 138 Potassium 5.1 Chloride 111 H Carbon Dioxide 19 L Anion Gap 13 BUN 77 H Creatinine 4.94 H* Estim Creat Clear Calc 13.9 Estimated GFR 9 POC Glucose 123 H 99 Random Glucose 108 Uric Acid Calcium 8.5 PTH Intact Calcium (PTH Intact) GISSELL Titer GISSELL Titer 2 GISSELL Titer 3 GISSELL Pattern GISSELL Pattern 2 GISSELL Pattern 3 Proteinase 3 (PR3) Ab Myeloperoxidase Ab Complement C3 Complement C4 11/29/22 11/29/22 11:05 16:13 Hold Purple Top Sodium Potassium Chloride Carbon Dioxide Anion Gap BUN Creatinine Estim Creat Clear Calc Estimated GFR POC Glucose 122 H 117 H Random Glucose Uric Acid Calcium PTH Intact Calcium (PTH Intact) GISSELL Titer GISSELL Titer 2 GISSELL Titer 3 GISSELL Pattern GISSELL Pattern 2 GISSELL Pattern 3 Proteinase 3 (PR3) Ab Myeloperoxidase Ab Complement C3 Complement C4 Microbiology Microbiology Results: Microbiology 11/24/22 17:10 Urine clean catch - Urine berg top Urine Culture - Final Procedures Date of Service Date of Service: 11/29/22 Assessment & Plan Assessment and plan (1) Acute kidney injury: Status: Acute (2) Anemia: Status: Acute (3) CKD (chronic kidney disease) stage 3, GFR 30-59 ml/min: Status: Acute (4) Cardiorenal syndrome: Status: Acute Plan MICHAEL: c/w CRSyn on top of rapidly prog CKD from DN/HTN renal si with NSyn; other causing being r/o with sero/urine studies; Unfortuantely no renal improvement with diuresis CKD with relatively rapid loss of renal func over past 6 months Cr 1.8---> 4.5 over past 6 months Nephrotic Syndrome: c/w DN but need to r/o other causes with sero studies R flank pain: resolved but now with shoulder pain MSK aches: r/o gout flare REC: cont diuresis--switch to po torsemide 100qd; , track renal func; sero as ordered; avoid Ntoxins; protect non-dominat arm for AVF; check UAL Will follow w team Time Spent With Patient Time: Total time managing care of this patient today ____ minutes. Progress Note: Quality Stroke Does the patient have a stroke diagnosis?: No
[2022-11-29 20:00] LABS: Glucose, Whole Blood 130 mg/dL (60-115)
[2022-11-29] MEDS: Furosemide 100 MG/10 ML VIAL 80 MG IVPUSH (20:00)
[2022-11-29] MEDS: traZODone HCL 100 MG TABLET PO (21:12)
[2022-11-30] MEDS: 0.9 % Sodium Chloride Flush 3 ML SYRINGE IVFLUSH ×3 (00:04→21:34)
[2022-11-30] MEDS: oxyCODONE HCl Immed Release 5 MG TABLET PO ×4 (02:49→18:03)
[2022-11-30 03:40] VITALS: BP 168/74; PULSE 65; RESP 20; TEMP 36.1; O2SAT 95
[2022-11-30 05:39] VITALS: BMI 49.6
[2022-11-30] MEDS: Omeprazole 40 MG CAPSULE.DR PO ×2 (06:01→16:22)
[2022-11-30] MEDS: Heparin Sodium,Porcine 5,000 UNIT/ML VIAL 5000 UNIT SUBCUT ×2 (06:01→18:03)
[2022-11-30 07:18] VITALS: BP 152/67; PULSE 76; RESP 20; TEMP 37; O2SAT 94
[2022-11-30] MEDS: Fluticasone/Vilanterol 100/25 BLST.W.DEV 1 PUFF INHALE (07:38)
[2022-11-30 07:39] VITALS: PULSE 76; RESP 20; O2SAT 96
[2022-11-30 08:03] LABS: Glucose, Whole Blood 127 mg/dL (60-115)
[2022-11-30] MEDS: Torsemide 20 MG TABLET 100 MG PO (09:39)
[2022-11-30] MEDS: Cholecalciferol (Vitamin D3) 25 MCG TABLET 50 MCG PO (09:39)
[2022-11-30] MEDS: Sertraline HCL 100 MG TABLET PO (09:40)
[2022-11-30] MEDS: amLODIPine Besylate 10 MG TABLET PO (09:40)
[2022-11-30] MEDS: Sucralfate 1 GM TABLET PO ×4 (09:40→21:34)
[2022-11-30] MEDS: Aspirin Enteric Coated 81 MG TABLET.DR PO (09:40)
[2022-11-30] MEDS: Ferrous Sulfate 324 MG TABLET.DR PO (09:40)
[2022-11-30] MEDS: Acetaminophen 325 MG TABLET 650 MG PO ×3 (09:50→21:33)
[2022-11-30] MEDS: Atorvastatin Calcium 80 MG TABLET PO (09:51)
[2022-11-30] MEDS: Sodium Zirconium Cyclosilicate 10 GM POWD.PACK PO ×2 (09:51→12:10)
[2022-11-30 10:08] LABS: Anion Gap 15 (12-20); Blood Urea Nitrogen 86 mg/dL (9-16); Calcium 8.8 mg/dL (8.4-10.2); Carbon Dioxide 18 mmol/L (22-29); Chloride 108 mmol/L (96-108); Creatinine Clr Calc Pharmacy 13.5; Estimated Glomerular Filt Rate 9; Glucose Random 151 mg/dL (60-115); Potassium 5.3 mmol/L (3.3-5.1); Sodium 136 mmol/L (135-145)
--- NOTE | 2022-11-30 10:55 | PM.DS ---
DS: Providers Provider Date of Service: 12/01/22 Date of admission: 11/24/22 15:27 Primary care physician: Lucrecia Teixeira MD Consults: 11/26/22 11:28 Consult to Nephrology Routine Consulting Provider: [facility] Reason for consultation: janelle on ckd Has provider been notified: Yes DS: Diagnosis Discharge Diagnosis (1) Acute kidney injury: Status: Inactive (2) Anemia: Status: Inactive (3) CKD (chronic kidney disease) stage 3, GFR 30-59 ml/min: Status: Inactive (4) Cardiorenal syndrome: Status: Acute DS: Summary Hospital Course Hospital Course: Chief Complaint: Sent by [facility] for swelling in legs and renal failure 66yo female with DM2, CKD3, benign brain tumor, seizure disorder, HTN, nephrolithiasis, morbid obesity. She accompanied by her daughter and son-in-law. Patient saw her primary care physician yesterday for routine followup and was noted to have increased leg edema and reportedly that she had fluid in her lungs. Lab work were done and that she was instructed to come to the emergency room because her renal function was worse and concern of hreat failure. Creatinine is 4 baseline 2.5 to 3 Hospital course: The patient was admitted due to fluid overload associated with cardiorenal syndrome and worsening renal function, accompanied by hyperkalemia. Treatment involved intravenous diuretics supervised by a Wrapping Machine Tender, but there was no significant improvement in renal function. Abdominal ultrasound and CT scans did not reveal any obstructions. Hyperkalemia is being managed with Lokelma. The patient is progressing toward End-Stage Renal Disease (ESRD) and may require dialysis in the near future. This option was discussed with both the patient and her family. She will have a follow-up appointment with her Wrapping Machine Tender (Dr. Meehan). Additionally, the patient reported right shoulder pain and an X-ray revealed degenerative changes. She will be discharged with Torsemide 100 mg daily. She advised low potassium and to lokelma to correct hyperkalemia. She was evaluated by Physical and recommended to go to short term rehab Time Spent with Patient Time attestation: Total time managing care of this patient today ____ minutes. Discharge coordination time: Greater than 30 minutes Quality: Safe Use of Opioids Does Pt have an Active Cancer Diagnosis on the Problem List?: No Quality: Stroke Does the patient have a stroke diagnosis?: No Physical Exam Vital Signs: Vital Signs: Last Vital Signs Temp 98.6 F 11/30/22 07:18 Pulse 76 11/30/22 07:39 Resp 20 11/30/22 07:39 BP 152/67 H 11/30/22 07:18 Pulse Ox 94 11/30/22 07:18 O2 Del Method Room Air 11/30/22 07:18 BMI result Body Mass Index 49.6 DS: Data Data Completed and Pending Labs on day of discharge: Laboratory Results - last 24 hr 11/26/22 11/26/22 11/29/22 20:06 20:30 11:05 Sodium Potassium Chloride Carbon Dioxide Anion Gap BUN Creatinine Estim Creat Clear Calc Estimated GFR POC Glucose 122 H Random Glucose Calcium PTH Intact 121 H Calcium (PTH Intact) 7.6 L GISSELL Titer TNP GISSELL Titer 2 TNP GISSELL Titer 3 TNP GISSELL Pattern TNP GISSELL Pattern 2 TNP GISSELL Pattern 3 TNP Complement C3 138 Complement C4 43 11/29/22 11/29/22 11/30/22 16:13 19:57 07:28 Sodium Potassium Chloride Carbon Dioxide Anion Gap BUN Creatinine Estim Creat Clear Calc Estimated GFR POC Glucose 117 H 130 H 127 H Random Glucose Calcium PTH Intact Calcium (PTH Intact) GISSELL Titer GISSELL Titer 2 GISSELL Titer 3 GISSELL Pattern GISSELL Pattern 2 GISSELL Pattern 3 Complement C3 Complement C4 11/30/22 09:21 Sodium 136 Potassium 5.3 H Chloride 108 Carbon Dioxide 18 L Anion Gap 15 BUN 86 H Creatinine 4.98 H* Estim Creat Clear Calc 13.5 Estimated GFR 9 POC Glucose Random Glucose 151 H Calcium 8.8 PTH Intact Calcium (PTH Intact) GISSELL Titer GISSELL Titer 2 GISSELL Titer 3 GISSELL Pattern GISSELL Pattern 2 GISSELL Pattern 3 Complement C3 Complement C4 Discharge Plan Discharge Anticipated Discharge Date/Time: 12/01/22 15:16 Patient Disposition: Home Health Service Discharge Diagnosis: ACute on chronic renal failure, cardiorenal syndrome Referrals: [facility] [Outside] - 1 Week Lucrecia Teixeira MD [Primary Care Provider] - 1 Week Discharge Medications: New Lokelma 10 gram Powder In Packet 10 g PO MOWEFR Qty: 30 0RF torsemide 100 mg tablet 100 mg PO DAILY Qty: 30 0RF Continued (DME) FreeStyle Lite Strips Strip MISCELLANEOUS QID (DME) blood-glucose meter [FreeStyle Strong Lite] Kit MISCELLANEOUS BID (DME) lancets [FreeStyle Lancets] 28 gauge misc 1 gauge topical BID Toujeo SoloStar U-300 Insulin 300 unit/mL (1.5 mL) insulin pen 30 unit subcut BID acetaminophen 500 mg tablet 500 mg PO Q6H PRN (Reason: fever or pain) Qty: 14 0RF omeprazole 40 mg capsule,delayed release(DR/EC) 40 mg PO BID atorvastatin 80 mg tablet 1 tab PO DAILY albuterol sulfate [Proventil HFA] 90 mcg/actuation HFA aerosol inhaler 2 puff INHALATION Q4-6H PRN (Reason: Shortness Of Breath) sucralfate 1 gram tablet 1 g PO QID aspirin 81 mg tablet,delayed release (DR/EC) 81 mg PO DAILY amlodipine 10 mg tablet 10 mg PO DAILY losartan 100 mg tablet 100 mg PO QAM furosemide 40 mg tablet 40 mg PO BID sertraline 50 mg tablet 100 mg PO DAILY ferrous gluconate 324 mg (38 mg iron) tablet 324 mg PO QAM insulin aspart U-100 [Novolog FlexPen U-100 Insulin] 100 unit/mL (3 mL) insulin pen 16 unit subcut TIDAC cholecalciferol (vitamin D3) 50 mcg (2,000 unit) Tablet 50 mcg PO DAILY (DME) blood pressure test kit-large Kit See Rx Instructions .ROUTE DAILY Qty: 1 Rx Instructions: As directed albuterol sulfate 2.5 mg /3 mL (0.083 %) solution for nebulization 2.5 mg inhalation TID PRN (Reason: wheezing) (DME) nebulizers Mis See Rx Instructions .Route Rx Instructions: As directed fluticasone furoate-vilanterol [Breo Ellipta] 100-25 mcg/dose blister with device 1 inh inhalation DAILY 30 Days Qty: 60 11RF diclofenac sodium 1 % gel 2 g topical BEDTIME PRN (Reason: Pain) trazodone 50 mg tablet 100 mg PO BEDTIME (DME) lancets [TRUEplus Lancets] 33 gauge misc See Rx Instructions .ROUTE BID Qty: 100 Rx Instructions: As directed Discontinued doxycycline hyclate 100 mg tablet 100 mg PO BID Discharge Orders: Discharge Order (Routine); Ordered 12/01/22 Ordered By: Seth Perez Diet: diabetic low potassium Activity on Discharge: As tolerated Stand Alone Forms: Patient Portal Discharge page Care Plan Goals: Full recovery from fluid overload and renal failure Health Concerns: Progressing renal failure Hyperkalemia Fluid overload/cardiorenal syndrome Plan of Treatment: Take all your medications as before Take Torsemide as directed Avoid food containing high potassium, example banana Take Lokelma as directed to keep your potassium low Follow up with Dr. Meehan in the kidney office check BMP in 3 days, to follow up with DR. Meehan Assessment: See above
--- NOTE | 2022-11-30 11:11 | MHC.CM.PN ---
Patient has been medically cleared for dc to home today, with services. Patient is active with [facility], who has been notified of today's dc and dc summary has been sent to [facility]. CM spoke with Daughter/Emily at listed #, who indicates that Son-in-Law/Jason will transport Patient to home today around 1 PM(RN made aware). IMM addressed with Patient at bedside and original was given to her and a copy has been placed on the chart.
[2022-11-30 11:27] VITALS: BP 151/60; PULSE 71; RESP 20; TEMP 37.2; O2SAT 93
[2022-11-30 11:34] LABS: Glucose, Whole Blood 129 mg/dL (60-115)
--- NOTE | 2022-11-30 12:10 | MHC.CM.PN ---
Per RN's request, dc time has been changed to 4PM (Son-in-Law in agreement to new time) in order for lab results to be in.CM will follow.
[2022-11-30 15:24] LABS: Anion Gap 15 (12-20); Carbon Dioxide 19 mmol/L (22-29); Chloride 106 mmol/L (96-108); Potassium 5.4 mmol/L (3.3-5.1); Sodium 135 mmol/L (135-145)
--- NOTE | 2022-11-30 15:30 | MHC.CM.PN ---
DC to home for today has been canceled r/t elevated K; CM has informed family of the change. CM will follow.
[2022-11-30 15:44] VITALS: BP 151/68; PULSE 72; RESP 20; TEMP 37; O2SAT 98
[2022-11-30 16:13] LABS: Glucose, Whole Blood 119 mg/dL (60-115)
[2022-11-30] MEDS: Sodium Polystyrene Sulfon/Sorb 15 GM/60 ML ORAL.SUSP 30 GM PO (18:03)
[2022-11-30 19:02] VITALS: BP 133/61; PULSE 69; RESP 20; TEMP 36.2; O2SAT 97
[2022-11-30 20:00] LABS: Glucose, Whole Blood 131 mg/dL (60-115)
[2022-11-30] MEDS: Melatonin 3 MG TABLET 6 MG PO (21:33)
[2022-11-30] MEDS: traZODone HCL 100 MG TABLET PO (21:34)
[2022-12-01] VITALS (7 sets, daily range): BP systolic 130–163; BP diastolic 60–73; PULSE 64–82; RESP 18–20; TEMP 36.1–36.9; O2SAT 94–97; BMI 50.2
[2022-12-01] MEDS: Omeprazole 40 MG CAPSULE.DR PO ×2 (06:08→17:47)
[2022-12-01] MEDS: Acetaminophen 325 MG TABLET 650 MG PO ×2 (06:09→20:07)
[2022-12-01] MEDS: Heparin Sodium,Porcine 5,000 UNIT/ML VIAL 5000 UNIT SUBCUT (06:11)
[2022-12-01 06:15] LABS: Anion Gap 16 (12-20); Blood Urea Nitrogen 92 mg/dL (9-16); Calcium 8.6 mg/dL (8.4-10.2); Carbon Dioxide 18 mmol/L (22-29); Chloride 107 mmol/L (96-108); Creatinine Clr Calc Pharmacy 13.3; Estimated Glomerular Filt Rate 9; Glucose Random 132 mg/dL (60-115); Potassium 4.7 mmol/L (3.3-5.1); Sodium 136 mmol/L (135-145)
[2022-12-01 07:08] LABS: Glucose, Whole Blood 118 mg/dL (60-115)
[2022-12-01] MEDS: Fluticasone/Vilanterol 100/25 BLST.W.DEV 1 PUFF INHALE (07:49)
[2022-12-01] MEDS: Sucralfate 1 GM TABLET PO ×4 (09:06→20:07)
[2022-12-01] MEDS: amLODIPine Besylate 10 MG TABLET PO (09:06)
[2022-12-01] MEDS: Torsemide 20 MG TABLET 100 MG PO (09:06)
[2022-12-01] MEDS: 0.9 % Sodium Chloride Flush 3 ML SYRINGE IVFLUSH (09:07)
[2022-12-01] MEDS: Ferrous Sulfate 324 MG TABLET.DR PO (09:07)
[2022-12-01] MEDS: Atorvastatin Calcium 80 MG TABLET PO (09:07)
[2022-12-01] MEDS: oxyCODONE HCl Immed Release 5 MG TABLET PO (09:07)
[2022-12-01] MEDS: Cholecalciferol (Vitamin D3) 25 MCG TABLET 50 MCG PO (09:07)
[2022-12-01] MEDS: Aspirin Enteric Coated 81 MG TABLET.DR PO (09:07)
[2022-12-01] MEDS: Sertraline HCL 100 MG TABLET PO (09:07)
[2022-12-01] MEDS: Sodium Zirconium Cyclosilicate 10 GM POWD.PACK PO (09:14)
--- NOTE | 2022-12-01 10:22 | MHC.CM.PN ---
CM met with Patient at bedside to discuss PT's recommendation for STR. Patient is in agreement with that plan and has given CM permission to start a SNF search. CM will follow.
--- NOTE | 2022-12-01 10:32 | HO.PM.IMPN ---
Subjective Subjective Date of Service: 12/01/22 Interval History: Follow up on progressive renal failure, Creatine increasing but at a slow rate Patient is more deconditione, potassium level is fátima Review of Systems right shoulder pain Physical Exam Vital Signs: Vital Signs: Last Vital Signs Temp 98.4 F 12/01/22 07:17 Pulse 82 12/01/22 07:50 Resp 18 12/01/22 07:50 BP 141/63 H 12/01/22 07:17 Pulse Ox 97 12/01/22 07:17 O2 Del Method Room Air 12/01/22 07:17 BMI result Body Mass Index 50.2 Const: Other: Constitutional - Awake and Alert, No apparent distress Eyes - PERRLA, EOMI Cardiovascular - S1S2, RRR, 2+ BLE edema Respiratory -clear, Extremities - no calf tenderness bilaterally, no swelling Skin - Warm/Dry Neurological - Alert & oriented x3 Psychological - Appropriate affect Extrem: General: Yes pedal edema Objective Data Active Medications Acetaminophen (Acetaminophen 325 Mg Tablet) 650 mg PO Q6H PRN PRN Reason: Pain, Mild (Pain Scale 1-3) Last Admin: 12/01/22 06:09 Dose: 650 mg Documented By: RICARDA Al Hydroxide/Mg Hydroxide (Magnesium Hydrox/Alum Hydrox 30 Ml Oral.Susp) 30 ml PO Q4H PRN PRN Reason: Heartburn/Nausea Albuterol Sulfate (Albuterol Sulfate (0.083%) 2.5 Mg/3 Ml Vial.Neb) 2.5 mg INHALE TID PRN PRN Reason: wheezing Albuterol Sulfate (Albuterol Sulfate 90 Mcg 8 Gm Inhaler) 2 puff INHALE Q4H PRN PRN Reason: Shortness Of Breath Amlodipine Besylate (Amlodipine Besylate 10 Mg Tablet) 10 mg PO DAILY ON LICENSE OF [facility]; Protocol Last Admin: 12/01/22 09:06 Dose: 10 mg Documented By: DEEPALI Aspirin (Aspirin Enteric Coated 81 Mg Tablet.) 81 mg PO DAILY ON LICENSE OF [facility] Last Admin: 12/01/22 09:07 Dose: 81 mg Documented By: DEEPALI Atorvastatin Calcium (Atorvastatin Calcium 80 Mg Tablet) 80 mg PO DAILY ON LICENSE OF [facility] Last Admin: 12/01/22 09:07 Dose: 80 mg Documented By: DEEPALI Dextrose (Dextrose 50 % 25 Gm/50 Ml Syringe) 25 gm IVPUSH Q15M PRN; Protocol PRN Reason: per Hypoglycemia Standing Ord. Ferrous Sulfate (Ferrous Sulfate 324 Mg Tablet.) 324 mg PO DAILY ON LICENSE OF [facility] Last Admin: 12/01/22 09:07 Dose: 324 mg Documented By: DEEPALI Fluticasone/Vilanterol (Fluticasone/Vilanterol 100/25 Blst.W.Dev) 1 puff INHALE RDAILY ON LICENSE OF [facility] Last Admin: 12/01/22 07:49 Dose: 1 puff Documented By: PANDA Glucose (Glucose Gel 15 Gm Gel..Gram.) 15 gm PO Q15M PRN; Protocol PRN Reason: per Hypoglycemia Standing Ord. Last Admin: 11/28/22 07:54 Dose: 15 gm Documented By: CONSTANTIN Heparin Sodium (Porcine) (Heparin Sodium,Porcine 5,000 Unit/Ml Vial) 5,000 unit SUBCUT Q12H ON LICENSE OF [facility] Last Admin: 12/01/22 06:11 Dose: 5,000 unit Documented By: RICARDA Insulin Human Lispro (Insulin Lispro 100 Unit/Ml 3 Ml Vial) 0 unit SUBCUT QIDACHS ON LICENSE OF [facility]; Protocol Last Admin: 12/01/22 08:59 Dose: Not Given Documented By: DEEPALI Non-Admin Reason: No Insulin Coverage Magnesium Hydroxide (Milk Of Magnesia 30 Ml Oral.Susp) 30 ml PO DAILY PRN PRN Reason: Constipation Melatonin (Melatonin 3 Mg Tablet) 6 mg PO BEDTIME PRN PRN Reason: Insomnia Last Admin: 11/30/22 21:33 Dose: 6 mg Documented By: RICARDA Omeprazole (Omeprazole 40 Mg Capsule.) 40 mg PO BID@0630,1630 ON LICENSE OF [facility] Last Admin: 12/01/22 06:08 Dose: 40 mg Documented By: RICARDA Ondansetron HCl (Ondansetron Hcl 4 Mg/2 Ml Vial) 4 mg IVPUSH Q8H PRN PRN Reason: Nausea and Vomiting Oxycodone HCl (Oxycodone Hcl Immed Release 5 Mg Tablet) 5 mg PO Q6H PRN PRN Reason: Pain, Severe (Pain Scale 7-10) Last Admin: 12/01/22 09:07 Dose: 5 mg Documented By: DEEPALI Sertraline HCl (Sertraline Hcl 100 Mg Tablet) 100 mg PO DAILY ON LICENSE OF [facility] Last Admin: 12/01/22 09:07 Dose: 100 mg Documented By: DEEPALI Sodium Chloride (0.9 % Sodium Chloride Flush 3 Ml Syringe) 3 ml IVFLUSH QSHIFT ON LICENSE OF [facility] Last Admin: 12/01/22 09:07 Dose: 3 ml Documented By: DEEPALI Sodium Zirconium Cyclosilicate (Sodium Zirconium Cyclosilicate 10 Gm Powd.Pack) 10 gm PO DAILY ON LICENSE OF [facility] Last Admin: 12/01/22 09:14 Dose: 10 gm Documented By: DEEPALI Sucralfate (Sucralfate 1 Gm Tablet) 1 gm PO QID ON LICENSE OF [facility] Last Admin: 12/01/22 09:06 Dose: 1 gm Documented By: DEEPALI Torsemide (Torsemide 20 Mg Tablet) 100 mg PO DAILY ON LICENSE OF [facility]; Protocol Last Admin: 12/01/22 09:06 Dose: 100 mg Documented By: DEEPALI Trazodone HCl (Trazodone Hcl 100 Mg Tablet) 100 mg PO BEDTIME ON LICENSE OF [facility] Last Admin: 11/30/22 21:34 Dose: 100 mg Documented By: RICARDA Vitamin D (Cholecalciferol (Vitamin D3) 25 Mcg Tablet) 50 mcg PO DAILY ON LICENSE OF [facility] Last Admin: 12/01/22 09:07 Dose: 50 mcg Documented By: DEEPALI Labs 11/26/22 08:20 12/01/22 05:33 Labs: Laboratory Results - last 24 hr 11/30/22 11/30/22 11/30/22 11:28 14:24 16:10 Hold Purple Top Anion Gap 15 Estim Creat Clear Calc Estimated GFR POC Glucose 129 H 119 H Random Glucose Calcium 11/30/22 12/01/22 12/01/22 19:56 05:33 07:04 Hold Purple Top SEE NOTE Anion Gap 16 Estim Creat Clear Calc 13.3 Estimated GFR 9 POC Glucose 131 H 118 H Random Glucose 132 H Calcium 8.6 Assessment and Plan (1) Cardiorenal syndrome: Status: Acute (2) CHF (congestive heart failure): Status: Inactive (3) Acute kidney injury: Status: Inactive Plan 66yo F with DM2, CKD3, benign brain tumor, seizure disorder, HTN, nephrolithiasis, morbid obesity here with increaseing leg edema and worsening renal failure. Renal function continues to worsen as well as worsening anemia. BLE edema pain improved per patient #Increasing leg edema, slight increase in BNP, renal failure--suspect advancing CKD vs acute cardiorenal syndrome, no overt heart failure -Creat 4.06-->4.20-->4.27--> 4.7-->4.9-->5 toay -Was on IV Lasix, now on Torsemide 100 daily -Avoid nephrotoxins -Low sodium diet and low potassium diet -follow renal function -Nephrology following #HypERkalemia--Lokelma, low K diet K is normal today, got 1 dose of Kayexalate yesterday #Left flank Pain--Non contrast CT non obstructing stone # DM2 - basal/bolus insulin #Acute on chronic anemia, likely related CKD -H/H worsening, hgb 6.9 01/25 -transfused 1unit with improvment Hgb 8 now -will check stool occult blood Right should pain, xray # HTN - continue amlodipine, hold Losartan d/t renal failure #Progressing CKD with worsening failure, Nephrology to further advise, likely to need dialysis in near future # sz disorder--not on meds at this time # mood disorder - continue duloxetine + quetiapine # VTE prophylaxis: Heparin # code status: full #Morbid obesity--weight loss advised Seems more decondtioned and would benefit from STR DVT prophylaxis: Heparin Full code Pt requires ongoing inpatient stay due to worsening renal function requiring expert consultation now with acute on chronic anemia requiring blood transfusion. Patient requires close monitoring of renal function, electrolytes, and blood counts Time Spent With Patient Time: Total time managing care of this patient today ____ minutes. Quality Stroke Does the patient have a stroke diagnosis?: No VTE Prior VTE?: No VTE Risk Level:: Medical - moderate - high VTE Device Contraindication: Treatment Not Indicated VTE Drug Contraindication: N/A - Med Ordered
[2022-12-01 10:56] LABS: Glucose, Whole Blood 124 mg/dL (60-115)
--- NOTE | 2022-12-01 11:05 | MHC.CM.PN ---
CM met with Patient, her Daughter and Son-in-Law at bedside; they have accepted a bed offer from [facility], who is initiating [facility] auth. CM will follow.
[2022-12-01 14:48] LABS: IgA 203 mg/dL (70-320); IgG 986 mg/dL (600-1540); IgM 86 mg/dL (50-300)
--- NOTE | 2022-12-01 15:25 | MHC.CM.PN ---
Patient has been medically cleared for dc to STR/SNF today. Patient will dc [facility] today at 7:30PM, via [facility]. Patient and Son-in-Law/Jason @ [phone] are aware of and agreeable to the dc plan.
[2022-12-01 16:47] LABS: Glucose, Whole Blood 133 mg/dL (60-115)
[2022-12-01 21:17] LABS: Glucose, Whole Blood 151 mg/dL (60-115)
== END 2022-12-01 22:00 | disposition skilled nursing facility (03) | DRG 292 ==
LOC: HO.ED 13:47 → HO.EDOVER 15:34 → HO.IMC 20:24
PROVIDERS: Internal Medicine Nephrology; Physician Assistant; Admitting Provider Internal Medicine; Emergency Provider Student in an Organized Health Care Education/Training Program; PCP General Practice; Visit Provider Internal Medicine
DX: I13.0 Hypertensive heart and chronic kidney disease with heart failure and stage 1 through stage 4 chronic kidney disease, or unspecified chronic kidney disease (principal); N17.9 Acute kidney failure, unspecified; Z68.43 Body mass index [BMI] 50.0-59.9, adult; N18.30 Chronic kidney disease, stage 3 unspecified; D63.1 Anemia in chronic kidney disease; E11.22 Type 2 diabetes mellitus with diabetic chronic kidney disease; E66.01 Morbid (severe) obesity due to excess calories; F39 Unspecified mood [affective] disorder; E87.5 Hyperkalemia; G40.909 Epilepsy, unspecified, not intractable, without status epilepticus; E86.0 Dehydration; E11.649 Type 2 diabetes mellitus with hypoglycemia without coma; I50.9 Heart failure, unspecified; Z71.3 Dietary counseling and surveillance; Z20.822 Contact with and (suspected) exposure to COVID-19; Z79.4 Long term (current) use of insulin; Z79.52 Long term (current) use of systemic steroids; Z79.82 Long term (current) use of aspirin; Z79.899 Other long term (current) drug therapy
CPT/HCPCS: 36415; 71046; 73030; 74176; 76775; 80048; 80051; 80053; 81001; 82043; 82570; 82784; 82947; 83521; 83690; 83880; 83970; 84156; 84484; 84550; 85025; 85027; 86021; 86038; 86160; 86334; 86704; 86706; 86803; 86850; 86900; 86901; 86923; 87086; 87340; 87635; 93005; 94640; 97162; 97530; 99285; J1643; J1940; J2270; P9016

== ENCOUNTER → 2022-11-24 15:27 | Outpatient (BNV) | payer OTHER, SELFPAY | PROVIDERS: Admitting Provider Internal Medicine; Emergency Provider Student in an Organized Health Care Education/Training Program; PCP General Practice; Visit Provider Physician Assistant | DX: N17.9 Acute kidney failure, unspecified (principal); D64.9 Anemia, unspecified; I13.10 Hypertensive heart and chronic kidney disease without heart failure, with stage 1 through stage 4 chronic kidney disease, or unspecified chronic kidney disease; N18.30 Chronic kidney disease, stage 3 unspecified | CPT/HCPCS: 99223; 99232; 99239 ==

== ENCOUNTER 2022-12-09 12:17 | Outpatient (REF) | payer OTHER, SELFPAY ==
[2022-12-09 14:29] LABS: Anion Gap 15 (12-20); Blood Urea Nitrogen 57 mg/dL (9-16); Calcium 9.2 mg/dL (8.4-10.2); Carbon Dioxide 23 mmol/L (22-29); Chloride 107 mmol/L (96-108); Estimated Glomerular Filt Rate 12; Glucose Random 120 mg/dL (60-115); Potassium 3.9 mmol/L (3.3-5.1); Sodium 141 mmol/L (135-145)
== END 2022-12-09 12:18 | disposition home or self-care (01) ==
LOC: HO.HHCL 12:17
PROVIDERS: Visit Provider Internal Medicine
DX: E11.51 Type 2 diabetes mellitus with diabetic peripheral angiopathy without gangrene (principal)
CPT/HCPCS: 36415; 80048

== ENCOUNTER 2022-12-16 14:54 | Outpatient (REF) | payer OTHER, SELFPAY ==
--- NOTE | ~2022-12-16 | US_ITS ---
EXAMINATION: MM DIAGNOSTIC DIGITAL BREAST TOMOSYNTHESIS, RIGHT US BREAST LIMITED, RIGHT MAMMOGRAPHY: CLINICAL INFORMATION: 4 month follow-up right breast suspect benign posttraumatic changes posterior upper outer aspect. Patient originally presented with palpable fullness and pain in the upper outer right breast for approximately 3 weeks. A recent fall was noted around the same time. Prior ultrasound was in keeping with posttraumatic fat changes in this region. COMPARISON: Mammography: 09/08/2022 mammography and ultrasound right breast TECHNIQUE: Digital right breast tomosynthesis is performed in both the craniocaudal and mediolateral oblique views along with computer-aided detection (CAD). Synthesized 2D images are generated from the tomosynthesis. In addition, a second full-field 3-D right MLO view was obtained. FINDINGS: There are scattered areas of fibroglandular density (ACR BI-RADS breast composition Category b). Previously seen density in the upper outer quadrant of the right breast has nearly completely resolved. There is a stable group of benign calcifications in the upper outer right breast which is unchanged from exams dating back to 2019 and benign. There is no change in the overall parenchymal pattern. No developing mass, or area of architectural distortion. Findings are in keeping with resolving posttraumatic changes. ULTRASOUND: CLINICAL INFORMATION: As above. COMPARISON: 08/09/2022. TECHNIQUE: Targeted sonographic evaluation right breast upper outer quadrant was performed using a high frequency linear transducer. Selected archived documentation. FINDINGS: RIGHT BREAST: Resolving posttraumatic hyperechoic fat changes are noted. No fluid collection. No suspicious mass, cystic abnormality, or abnormal shadowing identified. No edema within the soft tissue planes. Findings are consistent with resolving posttraumatic fat changes. US/US breast RT limited mamm only IMPRESSION: There are no findings suspicious for malignancy in the right breast. Mammographic and ultrasound findings both support resolving posttraumatic fat changes to the upper outer right breast. These are benign. Recommend the patient assumed routine annual mammographic screening. OVERALL ASSESSMENT: Mammography: BI-RADS 2 - Benign Findings Ultrasound: BI-RADS 2 - Benign Findings RECOMMENDATION: 1 year F/U Results were provided to the patient at time of visit by the technologist. This patient's information was entered into a reminder system with a target due date for their next mammogram.
== END 2022-12-16 14:55 | disposition home or self-care (01) ==
LOC: HO.MAMMO 14:54
PROVIDERS: PCP General Practice; Visit Provider General Practice
DX: N63.11 Unspecified lump in the right breast, upper outer quadrant (principal)
CPT/HCPCS: 76642; 77061; 77065

== ENCOUNTER → 2022-12-16 15:00 | Outpatient (BNV) | payer OTHER, SELFPAY | PROVIDERS: PCP General Practice; Visit Provider Radiology Diagnostic Radiology | DX: R92.1 Mammographic calcification found on diagnostic imaging of breast (principal); R92.311 Mammographic fatty tissue density, right breast | CPT/HCPCS: 76642; 77061; 77065 ==

== ENCOUNTER 2023-01-17 10:41 | Outpatient (REF) | payer MEDICARE, MEDICAID, SELFPAY ==
[2023-01-17 13:17] LABS: Appearance Urine Hazy; Glucose Urine UA 100 mg/dL (Negative); Leukocyte Esterase Urine Small (1+) (Negative); Nitrite Urine Negative (Negative); UMIC TRIGGER UA YES; Urine Blood Small (1+) (Negative); Urine Ketones Negative (Negative); Urine Protein 300 (3+) mg/dL (Neg-Trace)
[2023-01-17 13:18] LABS: Color Urine Yellow
[2023-01-17 13:19] LABS: MANUAL DIFF FLAG NO
[2023-01-17 13:34] LABS: Bacteria Urine 2+ (None Seen); WBC Urine >50 /HPF (0-5)
[2023-01-17 13:48] LABS: Basophils Absolute Auto 0.1 X10*3/uL (0.0-0.2); Basophils Percent Auto 0.6 % (0-2); Eosinophils Absolute Auto 0.3 X10*3/uL (0.0-0.4); Eosinophils Percent Auto 2.5 % (0-4); Hemoglobin 7.6 g/dl (12.0-16.0); Imm Gran Abs Auto 0.15 X10*3/uL (0.00-0.03); Imm Gran Pct Auto 1.4 % (0.0-0.4); Lymphocytes Absolute Auto 1.6 X10*3/uL (1.2-4.9); Lymphocytes Percent Auto 15.6 % (20-40); Mean Corpuscular HGB Conc 31.7 g/dl (31.0-35.0); Mean Corpuscular Hemoglobin 29.8 pg (27.0-33.0); Mean Corpuscular Volume 94.1 fL (80.0-98.0); Mean Platelet Volume 12.7 fL (9.4-12.3); Monocytes Absolute Auto 0.5 X10*3/uL (0.1-1.2); Monocytes Percent Auto 4.7 % (2-11); Neutrophils Absolute Auto 7.9 x10*3/uL (2.0-8.3); Neutrophils Percent Auto 75.2 % (45-73); Platelet Count 178 X10*3/uL (160-400); Red Blood Count 2.55 X10*6/uL (4.20-5.50); Red Cell Distribution Width 12.8 % (11.0-16.0); White Blood Count 10.5 X10*3/uL (4.8-10.8)
[2023-01-17 14:25] LABS: Creatinine Urine 69.93 mg/dL
[2023-01-17 14:29] LABS: Albumin Level 2.9 g/dL (3.5-5.0); Anion Gap 15 (12-20); Blood Urea Nitrogen 80 mg/dL (9-16); Calcium 8.8 mg/dL (8.4-10.2); Carbon Dioxide 17 mmol/L (22-29); Chloride 114 mmol/L (96-108); Magnesium 1.8 mg/dL (1.6-2.6); Phosphorus 5.6 mg/dL (2.7-4.5); Potassium 4.9 mmol/L (3.3-5.1); Sodium 141 mmol/L (135-145); Vitamin D 25-OH Total 6.1 ng/mL (>30)
[2023-01-17 14:33] LABS: PTH Intact Intraoperative 158.9 pg/mL (8.7-77.1)
[2023-01-17 14:38] LABS: Estimated Glomerular Filt Rate 9; Microalbumin Urine > 2000.0 mg/L; Protein/Creatinine Ratio, Ur 8.42 (<0.2); Total Protein Urine Random 589 mg/dL (<12)
== END 2023-01-17 10:42 | disposition home or self-care (01) ==
LOC: HO.HHCL 10:41
PROVIDERS: Visit Provider Internal Medicine Nephrology
DX: E11.22 Type 2 diabetes mellitus with diabetic chronic kidney disease (principal); N18.9 Chronic kidney disease, unspecified; N25.0 Renal osteodystrophy
CPT/HCPCS: 36415; 80051; 81001; 82040; 82043; 82306; 82310; 82565; 82570; 83735; 83970; 84100; 84156; 84520; 85025

== ENCOUNTER → 2023-01-19 13:06 | Outpatient (REF) | payer MEDICARE, MEDICAID, SELFPAY ==
--- NOTE | 2023-01-19 13:11 | CA_ITS ---
Transthoracic Echocardiogram Patient (Last, First, Middle): Lori Land E Gender: Female Date of : 1955 Age: 67 Procedure Date: 01/19/2023 Procedure Type: Transthoracic Echocardiogram Location: OP Height: 157. 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 The calculated ejection fraction is 68% by biplane method. - There is moderate mitral annular calcification. - No obvious valvular pathology seen on this study. Findings Procedure Information Contrast agent, definity, is being given per protocol without apparent complications. Left Ventricle Normal left ventricular cavity size. There is mildly increased left ventricular wall thickness. The left ventricular systolic function is normal. The calculated ejection fraction is 68% by biplane method. There is no evidence of regional wall motion abnormalities. Diastolic function is normal for age. Right Ventricle Mildly increased right ventricular cavity size. There is normal right ventricular systolic function. Atria Mild biatrial enlargement. Aortic Valve There is a normal trileaflet aortic valve. There is mild calcification of the aortic valve. There is no aortic valve stenosis. There is trace (trivial) aortic valve regurgitation. Mitral Valve There is moderate mitral annular calcification. There is trace mitral valve regurgitation. There is no mitral valve stenosis. Pulmonic Valve The pulmonic valve is likely normal. Tricuspid Valve There is mild tricuspid valve regurgitation. Tricuspid regurgitation envelope is inadequate for calculation of right ventricular systolic pressure. Great Vessels The asc aorta is normal in size. Venous The inferior vena cava is normal in size and collapses greater than 50% with inspiration. Pericardium/Pleural There is a trivial pericardial effusion. Prior Study Comparison No prior study available for comparison. Recommendations, Care & Conclusions No obvious valvular pathology seen on this study. Measurements 2D Linear Measurements IVSd: 1.18 0.6-0.9/0.6-1.0 cm LVIDd: 5.13 3.9-5.3/4.2-5.9 cm LVIDd Index: 2.50 2.4-3.2/2.2-3.1 cm/m2 LVIDs: 3.07 2.0-3.6 cm LVPWd: 1.39 0.7-1.1 cm LA Diam: 3.50 2.7-3.8/3.0-4.0 cm LAIDs Index: 1.71 1.5-2.3 cm/m2 LV Mass: 334.39 67-162/88-224 g LV Mass Index: 163.12 43-95/49-115 g/m2 LVOT Diam: 1.80 3.0+(-)1.3 cm 2D Systolic Function EF 4C: 62.50 >55% EF 2C: 69.80 >55% EF BiP: 67.80 >55% Mitral Valve MV Pk E: 1.20 MV PK A: 1.08 MV Decel Time: 213.00 E/A: 1.10 E'Lateral: 9.03 E'Medial: 6.53 E/E' Med: 18.40 E/E' Lat: 13.30 PHT: 62.00 MVA PHT: 3.55 Decel Whitley: 5.64 Aortic Valve AoV Pk Alberto: 1.63 AoV Mn Alberto: 1.11 AoV VTI: 0.39 AoV Pk Grad: 11.00 Aov Mn Grad: 6.00 MIKHAIL Cont.VTI: 2.02 AI Pk Alberto: 4.51 AI Whitley: 2.42 LVOT LVOT Pk Alberto: 1.29 LVOT Mn Alberto: 0.90 LVOT VTI: 0.31 LVOT Pk Grad: 7.00 LVOT Mn Grad: 4.00 LVOT Diam: 1.80 LVOT Area: 2.54 Diastolic Function MV Pk E: 1.20 MV Pk A: 1.08 E/A: 1.10 E'Medial: 6.53 E/E' Med: 18.40 E' Laterial: 9.03 E/E' Lat: 13.30 Right Ventricle TAPSE (mm): 33.20 TVS' Alberto: 13.80 Tricuspid Valve TR Pk Alberto: 2.57 TR Pk Grad: 26.00 RA Press: 5.50 RVSP: 34.00 Great Vessels Aorta Sinus of Valsalva: 4.00 2.0-3.5 cm Ao Asc: 3.90 2.1-3.4 cm Pulmonary Valve PV Pk Alberto: 1.17 Peak PV Grad: 5.00 Updated in Other Vendor System with Status of Final Caleb Messer MD electronically signed on 01/21/2023 12:40:30 PM with status of Final
== END ==
LOC: HO.CARD 13:06
PROVIDERS: PCP General Practice; Visit Provider Internal Medicine
DX: I13.10 Hypertensive heart and chronic kidney disease without heart failure, with stage 1 through stage 4 chronic kidney disease, or unspecified chronic kidney disease (principal); N18.9 Chronic kidney disease, unspecified
CPT/HCPCS: 93306; 99283; Q9957

== ENCOUNTER → 2023-01-19 13:11 | Outpatient (BNV) | payer MEDICARE, MEDICAID, SELFPAY | PROVIDERS: PCP General Practice; Visit Provider Internal Medicine | DX: I34.81 Nonrheumatic mitral (valve) annulus calcification (principal); I36.1 Nonrheumatic tricuspid (valve) insufficiency; I13.10 Hypertensive heart and chronic kidney disease without heart failure, with stage 1 through stage 4 chronic kidney disease, or unspecified chronic kidney disease | CPT/HCPCS: 93306 ==

== ENCOUNTER 2023-01-19 14:12 | Emergency (ER) | payer MEDICARE, MEDICAID, SELFPAY ==
[2023-01-19 15:21] VITALS: BP 160/71; PULSE 80; RESP 16; TEMP 36.8; O2SAT 98; BMI 43.3
--- NOTE | 2023-01-19 15:26 | ED.GENADULT ---
HPI - General Adult General Chief complaint: Recheck/Abnormal Lab/Rx Stated complaint: Kidney/heart issues - sent by Time Seen by Provider: 01/19/23 16:47 Source: patient and RN notes reviewed Mode of arrival: ambulatory Limitations: no limitations History of Present Illness HPI narrative: This is a 66 year old female, with a history of CKD, DM, COPD, and asthma presenting to the ER for evaluation of fatigue and was told that she would be admitted for a kidney specialist. She was told by her professor of environmental studies, Dr. Meehan, to be evaluated in the ER. Dr. Meehan presented to triage area and evaluated patient. Pt reports that she is feeling well and is confused as to why she is in the emergency department. She denies fevers, chills, headache, chest pain, shortness of breath, abdominal pain, nausea, vomiting or diarrhea. No other complaints or concerns at this time. MD complaint: fatigue Onset (ago): day(s) Radiation: non-radiation Relieving factors: none Exacerbating factors: none Associated symptoms: denies other symptoms Treatments prior to arrival: none Related Data Home Medications Medication Instructions Recorded Confirmed blood sugar diagnostic (FreeStyle 03/28/20 09/09/22 Lite Strips) blood-glucose meter (FreeStyle 03/28/20 09/09/22 [place] Lite kit) lancets 28 gauge (FreeStyle 03/28/20 09/09/22 Lancets) insulin glargine U-300 conc 300 30 unit subcut BID 03/29/20 11/24/22 unit/mL (1.5 mL) subcutaneous pen (T[employer] SoloStar U-300 Insulin) omeprazole 40 mg capsule,delayed 40 mg PO BID 10/02/21 11/24/22 release blood pressure test kit-large #1 ea 10/12/21 09/09/22 albuterol sulfate 90 mcg/actuation 2 puff inhalation Q4-6H PRN 12/20/21 11/24/22 aerosol inhaler (Proventil HFA) Shortness Of Breath atorvastatin 80 mg tablet 1 tab PO DAILY 12/20/21 11/24/22 albuterol sulfate 2.5 mg/3 mL 2.5 mg inhalation TID PRN wheezing 01/20/22 11/24/22 (0.083 %) solution for nebulization nebulizers 01/20/22 09/09/22 amlodipine 10 mg tablet 10 mg PO DAILY 05/29/22 11/24/22 aspirin 81 mg tablet,delayed 81 mg PO DAILY 05/29/22 11/24/22 release losartan 100 mg tablet 100 mg PO QAM 05/29/22 11/24/22 sucralfate 1 gram tablet 1 g PO QID 05/29/22 11/24/22 diclofenac sodium 1 % topical gel 2 g topical BEDTIME PRN Pain 06/07/22 11/24/22 lancets 33 gauge (TRUEplus Lancets) #100 ea 06/07/22 09/09/22 trazodone 50 mg tablet 100 mg PO BEDTIME 06/07/22 11/24/22 cholecalciferol (vitamin D3) 50 50 mcg PO DAILY 11/24/22 11/24/22 mcg (2,000 unit) tablet ferrous gluconate 324 mg (38 mg 324 mg PO QAM 11/24/22 11/24/22 iron) tablet furosemide 40 mg tablet 40 mg PO BID 11/24/22 11/24/22 insulin aspart U-100 100 unit/mL 16 unit subcut TIDAC 11/24/22 11/24/22 (3 mL) subcutaneous pen (Novolog FlexPen U-100 Insulin aspart) sertraline 50 mg tablet 100 mg PO DAILY 11/24/22 11/24/22 Previous Rx's Medication Instructions Recorded fluticasone furoate 100 1 inh inhalation DAILY 30 days #60 01/20/22 mcg-vilanterol 25 mcg/dose ea inhalation powder (Breo Ellipta) acetaminophen 500 mg tablet 500 mg PO Q6H PRN fever or pain 02/24/22 #14 tabs sodium zirconium cyclosilicate 10 10 g PO MOWEFR #30 ea 11/30/22 gram oral powder packet (Lokelma) torsemide 100 mg tablet 100 mg PO DAILY #30 tabs 11/30/22 Allergies Allergy/AdvReac Type Severity Reaction Status Date / Time egg Allergy Mild Abdominal Verified 11/24/22 11:55 Pain Review of Systems Review of Systems: Yes all other systems are reviewed and are negative PMFSH Past Medical History Medical History Brain tumor (benign) Lower extremity edema Pneumonia Asthma Pulmonary nodule HLD (hyperlipidemia) CKD (chronic kidney disease) stage 3, GFR 30-59 ml/min Seizure Acute hypoxemic respiratory failure due to COVID-19 COVID-19 Kidney stone Depression Gastritis Diabetes Surgical History H/O lithotripsy H/O ureteroscopy H/O cystoscopy S/P ureteral stent placement History of cholecystectomy H/O hernia repair Family History Family History Father CAD (coronary artery disease) Brother Lung cancer Sister Kidney stone Social History Social History Household Members: None Housing: Apartment Do you presently have visiting nurse or other home services: Yes (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 No acute distress. HEENT: Normal inspection CVS: Normal heart rate and rhythm. Pulses normal. Respiratory: No respiratory distress Skin: Warm, dry, no rashes noted to exposed skin. Normal skin color. Normal skin turgor. Extremities: Normal to inspection Neuro: Oriented X 3. No motor deficit. No sensory deficit. Course Course Course Narrative: This is an RME: Additional HPI, ROS, PE not included below will be deferred to primary provider. This is a 67-year-old female, DM2, CKD3, benign brain tumor, seizure disorder, HTN, nephrolithiasis, morbid obesity, presenting to the emergency department as her kidney specialist, Dr. Meehan informed her to come to the emergency room for evaluation. Dr. Meehan wants patient to be admitted to the hospital for a kidney biopsy given worsening labs. Plan: Labs, UA Medical Decision Making Medical Decision Making MDM Narrative: 67 y/o F, hx of CKD, presenting to the ER for ?admission for kidney biopsy. Pt states that she is feeling well but was told to come to the ER by her professor of environmental studies, Dr. Meehan as she would be admitted. On arrival, vital signs stable. Pt was seen and evaluated by Dr. Meehan in the waiting room and given that patient is feeling well with no current complaints, that she can be safely discharged without any further work up and for her to follow up outpatient. I discussed this with patient who states that she does not want to be evaluated in the ER and would like to follow up with her professor of environmental studies, Dr. Meehan. She has no current complaints. GIven return precautions. She understands and agrees with plan. stable for d/c, Differential Diagnosis Differential Diagnoses: The differential diagnosis associated with the presentation includes chronic kidney disease renal insufficiency fatigue viral illness Consult Healthcare Provider Management of the patient was discussed with: Software Engineering Manager Discharge Plan Discharge Clinical Impression: Chronic kidney disease Patient Disposition: Home, Self-Care Instructions: Chronic Kidney Disease (ED) Additional Instructions: Your told to the come to the emergency department from Dr. Meehan. Your seen by Dr. Meehan, and he deemed that it was okay for you to be discharge. You are currently asymptomatic and feel well. If you develop any new or worsening symptoms including but not limited to chest pain, shortness breath, please return for re-evaluation. I am recommending you follow-up with your primary care physician and Dr. Meehan as scheduled. Prescriptions: No Action (DME) FreeStyle Lite Strips Strip MISCELLANEOUS QID (DME) blood-glucose meter [FreeStyle [place] Lite] Kit MISCELLANEOUS BID (DME) lancets [FreeStyle Lancets] 28 gauge misc 1 gauge topical BID Tou[employer]o SoloStar U-300 Insulin 300 unit/mL (1.5 mL) insulin pen 30 unit subcut BID acetaminophen 500 mg tablet 500 mg PO Q6H PRN (Reason: fever or pain) Qty: 14 0RF omeprazole 40 mg capsule,delayed release(DR/EC) 40 mg PO BID atorvastatin 80 mg tablet 1 tab PO DAILY albuterol sulfate [Proventil HFA] 90 mcg/actuation HFA aerosol inhaler 2 puff INHALATION Q4-6H PRN (Reason: Shortness Of Breath) sucralfate 1 gram tablet 1 g PO QID aspirin 81 mg tablet,delayed release (DR/EC) 81 mg PO DAILY amlodipine 10 mg tablet 10 mg PO DAILY losartan 100 mg tablet 100 mg PO QAM furosemide 40 mg tablet 40 mg PO BID sertraline 50 mg tablet 100 mg PO DAILY ferrous gluconate 324 mg (38 mg iron) tablet 324 mg PO QAM insulin aspart U-100 [Novolog FlexPen U-100 Insulin] 100 unit/mL (3 mL) insulin pen 16 unit subcut TIDAC cholecalciferol (vitamin D3) 50 mcg (2,000 unit) Tablet 50 mcg PO DAILY Lokelma 10 gram Powder In Packet 10 g PO MOWEFR Qty: 30 0RF torsemide 100 mg tablet 100 mg PO DAILY Qty: 30 0RF (DME) blood pressure test kit-large Kit See Rx Instructions .ROUTE DAILY Qty: 1 Rx Instructions: As directed albuterol sulfate 2.5 mg /3 mL (0.083 %) solution for nebulization 2.5 mg inhalation TID PRN (Reason: wheezing) (DME) nebulizers Misc See Rx Instructions .Route Rx Instructions: As directed fluticasone furoate-vilanterol [Breo Ellipta] 100-25 mcg/dose blister with device 1 inh inhalation DAILY 30 Days Qty: 60 11RF diclofenac sodium 1 % gel 2 g topical BEDTIME PRN (Reason: Pain) trazodone 50 mg tablet 100 mg PO BEDTIME (DME) lancets [TRUEplus Lancets] 33 gauge misc See Rx Instructions .ROUTE BID Qty: 100 Rx Instructions: As directed Discharge Date/Time: 01/19/23 18:48
== END 2023-01-19 18:48 | disposition home or self-care (01) ==
LOC: HO.ED 16:50
PROVIDERS: Emergency Provider Student in an Organized Health Care Education/Training Program; PCP General Practice
DX: E11.22 Type 2 diabetes mellitus with diabetic chronic kidney disease (principal); I13.0 Hypertensive heart and chronic kidney disease with heart failure and stage 1 through stage 4 chronic kidney disease, or unspecified chronic kidney disease; N18.30 Chronic kidney disease, stage 3 unspecified; I50.9 Heart failure, unspecified; Z79.82 Long term (current) use of aspirin; Z79.899 Other long term (current) drug therapy
CPT/HCPCS: 99281; 99283

== ENCOUNTER 2023-02-03 12:36 | Outpatient (REF) | payer MEDICARE, MEDICAID, SELFPAY ==
[2023-02-03 14:21] LABS: Anion Gap 13 (12-20); Blood Urea Nitrogen 69 mg/dL (9-16); Calcium 9.1 mg/dL (8.4-10.2); Carbon Dioxide 20 mmol/L (22-29); Chloride 109 mmol/L (96-108); Glucose Random 107 mg/dL (60-115); Magnesium 1.9 mg/dL (1.6-2.6); Potassium 5.3 mmol/L (3.3-5.1); Sodium 137 mmol/L (135-145)
[2023-02-03 14:23] LABS: Estimated Glomerular Filt Rate 10
== END 2023-02-03 12:37 | disposition home or self-care (01) ==
LOC: HO.HHCL 12:36
PROVIDERS: Visit Provider General Practice
DX: N18.6 End stage renal disease (principal)
CPT/HCPCS: 36415; 80048; 83735

== ENCOUNTER 2023-03-03 09:48 | Outpatient (REF) | payer MEDICARE, MEDICAID, SELFPAY ==
[2023-03-03 11:05] LABS: B Type Natriuretic Peptide 86 pg/mL (<100)
[2023-03-03 11:31] LABS: Anion Gap 12 (12-20); Blood Urea Nitrogen 71 mg/dL (9-16); Carbon Dioxide 21 mmol/L (22-29); Chloride 113 mmol/L (96-108); Estimated Glomerular Filt Rate 10; Glucose Random 79 mg/dL (60-115); Potassium 4.7 mmol/L (3.3-5.1); Sodium 141 mmol/L (135-145)
== END 2023-03-03 09:49 | disposition home or self-care (01) ==
LOC: HO.LAB 09:48
PROVIDERS: PCP General Practice; Visit Provider General Practice
DX: N18.6 End stage renal disease (principal); R60.0 Localized edema
CPT/HCPCS: 36415; 80048; 83880

== ENCOUNTER 2023-03-22 11:31 | Outpatient (REF) | payer MEDICARE, MEDICAID, SELFPAY ==
[2023-03-22 14:42] LABS: Anion Gap 15 (12-20); Blood Urea Nitrogen 70 mg/dL (9-16); Calcium 8.8 mg/dL (8.4-10.2); Carbon Dioxide 18 mmol/L (22-29); Chloride 113 mmol/L (96-108); Estimated Glomerular Filt Rate 10; Glucose Random 99 mg/dL (60-115); Potassium 5.9 mmol/L (3.3-5.1); Sodium 140 mmol/L (135-145)
== END 2023-03-22 11:32 | disposition home or self-care (01) ==
LOC: HO.HHCL 11:31
PROVIDERS: Visit Provider General Practice
DX: N18.5 Chronic kidney disease, stage 5 (principal)
CPT/HCPCS: 36415; 80048

== ENCOUNTER 2023-04-24 16:28 | Outpatient (REF) | payer MEDICARE, MEDICAID, SELFPAY ==
[2023-04-24 18:12] LABS: Anion Gap 13 (12-20); Blood Urea Nitrogen 99 mg/dL (9-16); Calcium 8.9 mg/dL (8.4-10.2); Carbon Dioxide 17 mmol/L (22-29); Chloride 114 mmol/L (96-108); Estimated Glomerular Filt Rate 9; Glucose Random 113 mg/dL (60-115); Sodium 138 mmol/L (135-145)
== END 2023-04-24 16:29 | disposition home or self-care (01) ==
LOC: HO.HHCL 16:28
PROVIDERS: Visit Provider General Practice
DX: N18.5 Chronic kidney disease, stage 5 (principal)
CPT/HCPCS: 36415; 80048

== ENCOUNTER 2023-06-22 09:34 | Outpatient (REF) | payer MEDICARE, MEDICAID, SELFPAY ==
[2023-06-22 11:54] LABS: Appearance Urine Cloudy; Color Urine Yellow; Glucose Urine UA Negative (Negative); Leukocyte Esterase Urine Moderate (2+) (Negative); Nitrite Urine Negative (Negative); PH 5.5 (5.0-9.0); Specific Gravity - Urine 1.015 (1.005-1.025); UMIC TRIGGER UA YES; Urine Blood Small (1+) (Negative); Urine Ketones Negative (Negative); Urine Protein 300 (3+) mg/dL (Neg-Trace)
[2023-06-22 12:00] LABS: Basophils Absolute Auto 0.1 X10*3/uL (0.0-0.2); Basophils Percent Auto 0.6 % (0-2); Eosinophils Absolute Auto 0.5 X10*3/uL (0.0-0.4); Eosinophils Percent Auto 4.4 % (0-4); Hemoglobin 7.6 g/dl (12.0-16.0); Imm Gran Abs Auto 0.06 X10*3/uL (0.00-0.03); Imm Gran Pct Auto 0.6 % (0.0-0.4); Lymphocytes Absolute Auto 1.6 X10*3/uL (1.2-4.9); Lymphocytes Percent Auto 14.4 % (20-40); MANUAL DIFF FLAG SCAN; Mean Corpuscular HGB Conc 31.7 g/dl (31.0-35.0); Mean Corpuscular Hemoglobin 31.4 pg (27.0-33.0); Mean Corpuscular Volume 99.2 fL (80.0-98.0); Monocytes Absolute Auto 0.6 X10*3/uL (0.1-1.2); Monocytes Percent Auto 5.1 % (2-11); Neutrophils Absolute Auto 8.1 x10*3/uL (2.0-8.3); Neutrophils Percent Auto 74.9 % (45-73); PLT CLUMP 1; Red Blood Count 2.42 X10*6/uL (4.20-5.50); Red Cell Distribution Width 12.9 % (11.0-16.0); SCAN SMEAR FLAG 1
[2023-06-22 12:01] LABS: White Blood Count 10.8 X10*3/uL (4.8-10.8)
[2023-06-22 12:15] LABS: Bacteria Urine 4+ (None Seen); Hyaline Casts Urine 0-2 /LPF (0-2); Squamous Epithelial Cell Urine 0-2 /HPF (0-2)
[2023-06-22 12:22] LABS: Parathyroid Hormone Intact 176.5 pg/mL (8.7-77.1)
[2023-06-22 12:24] LABS: Albumin Level 3.3 g/dL (3.5-5.0); Iron 46 mcg/dL (30-160); Magnesium 1.8 mg/dL (1.6-2.6); Percent Iron Saturation 20 % (15-50); Total Iron Binding Capacity 231 mcg/dL (228-428); Unsaturated Iron Binding 185 ug/dL
[2023-06-22 12:33] LABS: SLIDE REVIEW VERIFIED
[2023-06-22 12:42] LABS: Creatinine Urine 58.76 mg/dL
[2023-06-22 12:44] LABS: Ferritin 260 ng/mL (10-250)
[2023-06-22 12:55] LABS: Microalbum/Creatinine Ratio Ur 3403.6 ug/mg cr (<30); Microalbumin Urine > 2000.0 mg/L
== END 2023-06-22 09:35 | disposition home or self-care (01) ==
LOC: HO.HHCL 09:34
PROVIDERS: Visit Provider Internal Medicine Nephrology
DX: I12.9 Hypertensive chronic kidney disease with stage 1 through stage 4 chronic kidney disease, or unspecified chronic kidney disease (principal); E11.22 Type 2 diabetes mellitus with diabetic chronic kidney disease; D63.1 Anemia in chronic kidney disease; N18.5 Chronic kidney disease, stage 5; N25.0 Renal osteodystrophy
CPT/HCPCS: 36415; 81001; 82040; 82043; 82306; 82310; 82570; 82728; 83540; 83735; 83970; 84100; 85025

== ENCOUNTER 2023-08-15 12:44 | Outpatient (RCR) | payer MEDICARE, MEDICAID, SELFPAY | END 2023-10-06 10:20 | disposition home or self-care (01) | LOC: HO.WCC 12:44 | PROVIDERS: PCP General Practice; Visit Provider Physician Assistant | DX: Z09 Encounter for follow-up examination after completed treatment for conditions other than malignant neoplasm (principal); E11.40 Type 2 diabetes mellitus with diabetic neuropathy, unspecified; E11.22 Type 2 diabetes mellitus with diabetic chronic kidney disease; I12.9 Hypertensive chronic kidney disease with stage 1 through stage 4 chronic kidney disease, or unspecified chronic kidney disease; N18.9 Chronic kidney disease, unspecified; R60.0 Localized edema; Z86.31 Personal history of diabetic foot ulcer | CPT/HCPCS: 11042; 99212 ==

== ENCOUNTER 2023-09-15 15:08 | Outpatient (REF) | payer MEDICARE, MEDICAID, SELFPAY ==
--- NOTE | ~2023-09-15 | US_ITS ---
EXAMINATION: US RETROPERITONEAL COMPLETE (RENAL) CLINICAL INFORMATION: Renal calculus. COMPARISON: None available. TECHNIQUE: Real-time imaging of the kidneys and bladder. FINDINGS: RIGHT KIDNEY: 11.2 x 4.8 x 5.3 cm (SAG x AP x TRV). The kidney is normal in size and echogenicity. There are persistent lobulations. Renal cortical thickness is normal. No calculi or focal parenchymal lesions. No hydronephrosis. LEFT KIDNEY: 12.8 x 5.4 x 4.4 cm (SAG x AP x TRV). The kidney is normal in size and echogenicity. There are persistent lobulations. Renal cortical thickness is normal. No calculi or focal parenchymal lesions. No hydronephrosis. US/US renal BI IMPRESSION: Unremarkable examination, without renal mass, calculus or hydronephrosis noted. Electronically signed by: Tre Jeffery MD 10/11/2023 01:27 PM EDT
== END 2023-09-15 15:09 | disposition home or self-care (01) ==
LOC: HO.US 15:08
PROVIDERS: PCP General Practice; Visit Provider Urology
DX: N20.0 Calculus of kidney (principal)
CPT/HCPCS: 76775

== ENCOUNTER 2023-10-27 14:17 | Inpatient (IN) | payer MEDICARE, MEDICAID, SELFPAY ==
[2023-10-27] VITALS (7 sets, daily range): BP systolic 114–184; BP diastolic 43–78; PULSE 68–94; RESP 15–18; TEMP 36.6–37.2; O2SAT 97–100; BMI 40.2
--- NOTE | ~2023-10-27 | CT_ITS ---
EXAMINATION: CT HEAD WITHOUT CONTRAST CLINICAL INFORMATION: Severe headache. COMPARISON: CT head dated July 07, 2022. TECHNIQUE: Contiguous axial imaging was performed from the skull base to vertex without intravenous administration of contrast. This CT examination was performed using dose optimization techniques as appropriate, variously including the following: *Automated exposure control *Adjustment of mA and/or kV according to patient size (this includes techniques or standardized protocols for targeted exams where dose is matched to indication/reason for exam; i.e. extremities or head) *Use of iterative reconstruction technique DLP: 1521 mGy-cm FINDINGS: There is no acute intracranial hemorrhage. No evidence of acute/subacute cerebral or cerebellar infarction. There is left frontal lobe encephalomalacia, similar to the prior study. There is no midline shift or mass effect. No extra-axial fluid collection. No hydrocephalus. There is a left frontal craniotomy defect. Visualized paranasal sinuses and mastoid air cells are clear. CT/CT head/brain wo IV con IMPRESSION: No acute intracranial abnormality. Electronically signed by: Jkaob Newton DO 10/27/2023 05:34 PM EDT
--- NOTE | ~2023-10-27 | US_ITS ---
EXAMINATION: US TRIPLEX UPPER EXTREMITY, RIGHT CLINICAL INFORMATION: Right upper extremity edema and pain COMPARISON: None available. TECHNIQUE: Color-flow triplex imaging with spectral analysis and compression Doppler was performed on the right upper extremity. FINDINGS: The right internal jugular, subclavian, and axillary veins are patent and free of thrombus. The imaged segment of the right brachiocephalic vein is patent. Spectral doppler waveforms are normal. The brachial, basilic, cephalic, radial, and ulnar veins are patent and compressible. Subcutaneous edema is seen within the forearm US/US venous duplex UE RT IMPRESSION: No evidence of deep venous thrombosis involving the right upper extremity. Subcutaneous edema Electronically signed by: Demario Tsai MD 10/31/2023 10:59 PM EDT
--- NOTE | ~2023-10-27 | MR_ITS ---
EXAMINATION: MR BRAIN WITHOUT CONTRAST CLINICAL INFORMATION: Seizures. COMPARISON: Head CT dated 07/07/2022. TECHNIQUE: Multiplanar, multisequence imaging of the brain was performed without contrast. Significantly limited study with motion artifacts. FINDINGS: There is gyral T2 hyperintense signal abnormality in the left frontoparietal lobes, left occipital lobe, the anterior left cingulate gyrus, and portions of the left temporal lobe with corresponding reduced diffusivity. Additionally, there is abnormal T2 hyperintense signal in the right cerebellar folia in the posterior fossa. There is moderate encephalomalacia and gliosis in the anterior left frontal lobe with chronic left frontal post craniotomy changes. Ex vacuo dilatation of the frontal horn of the left lateral ventricle evident. No imaging findings of hydrocephalus. The brainstem is normal. No extra-axial fluid collections are seen. There is no midline shift of structures. The heme sensitive acquisition is motion degraded for interpretation. The craniovertebral junction, marrow signal, and midline structures are grossly normal. The major intracranial flow voids at the level of the [place] are preserved. The dural venous sinus flow voids are maintained. There is a mild amount of fluid in the dependent mastoid air cells. Mild ethmoid sinus mucosal thickening noted. MR/MR head/brain wo con IMPRESSION: Significantly limited study with motion artifacts. Imaging findings most indicative for status epilepticus affecting the left cerebral hemisphere with right-sided crossed cerebellar diaschisis. Electronically signed by: Landon Bragg MD 10/31/2023 03:41 PM EDT
--- NOTE | ~2023-10-27 | XR_ITS ---
EXAMINATION: XR CHEST CLINICAL INFORMATION: Possible seizure. COMPARISON: Chest radiographs dated 11/24/2022. TECHNIQUE: Frontal view of the chest was obtained. FINDINGS: Heart size is normal. The lungs are clear. No large pleural effusion. No visible pneumothorax. Please note, the lung apices are somewhat obscured by the patient's chin. No acute osseous abnormality. XR/XR chest 1V IMPRESSION: No acute cardiopulmonary disease. Electronically signed by: Jakob Newton DO 10/27/2023 04:11 PM EDT
--- NOTE | 2023-10-27 14:39 | ECG_ITS ---
Test Reason : possible seizure Blood Pressure : / mmHG Vent. Rate : 087 BPM Atrial Rate : 087 BPM P-R Int : 178 ms QRS Dur : 096 ms QT Int : 354 ms P-R-T Axes : 050 -03 029 degrees QTc Int : 425 ms Normal sinus rhythm Moderate voltage criteria for LVH, may be normal variant ( R in aVL , Thornton product ) Borderline ECG When compared with ECG of 24-NOV-2022 12:04, No significant change was found Referred By: Trudy Simmons Electronically Signed By:DWAINE WALKER
--- NOTE | 2023-10-27 14:48 | ED.SEIZURE ---
HPI - Seizure General Chief Complaint: Seizure Stated Complaint: SZ Hx SZ Chronice 1 min ea. 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 She tells me she had whole body shaking today and was awake. She denies feeling ill but that her arms and legs hurt. She denies recent fevers, falls. 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 complaint: seizure Onset (ago): day(s) (1) Description of Episode: tonic-clonic movement -: minutes(s) Witnessed: Yes - by EMS Trauma: No Seizure History: Yes Place: Home Possible Precipitating Event: none Associated symptoms: denies other symptoms Treatments prior to arrival: benzodiazepines Related Data Home Medications ?Medication ?Instructions ?Recorded ?Confirmed blood sugar diagnostic (FreeStyle 03/28/20 09/09/22 Lite Strips) blood-glucose meter (FreeStyle 03/28/20 09/09/22 [place] Lite kit) lancets 28 gauge (FreeStyle 03/28/20 09/09/22 Lancets) insulin glargine U-300 conc 300 30 unit subcut BID 03/29/20 11/24/22 unit/mL (1.5 mL) subcutaneous pen (Wolf SoloStar U-300 Insulin) omeprazole 40 mg capsule,delayed 40 mg PO BID 10/02/21 11/24/22 release blood pressure test kit-large #1 ea 10/12/21 09/09/22 albuterol sulfate 90 mcg/actuation 2 puff inhalation Q4-6H PRN 12/20/21 11/24/22 aerosol inhaler (Proventil HFA) Shortness Of Breath atorvastatin 80 mg tablet 1 tab PO DAILY 12/20/21 11/24/22 albuterol sulfate 2.5 mg/3 mL 2.5 mg inhalation TID PRN wheezing 01/20/22 11/24/22 (0.083 %) solution for nebulization nebulizers 01/20/22 09/09/22 amlodipine 10 mg tablet 10 mg PO DAILY 05/29/22 11/24/22 aspirin 81 mg tablet,delayed 81 mg PO DAILY 05/29/22 11/24/22 release losartan 100 mg tablet 100 mg PO QAM 05/29/22 11/24/22 sucralfate 1 gram tablet 1 g PO QID 05/29/22 11/24/22 diclofenac sodium 1 % topical gel 2 g topical BEDTIME PRN Pain 06/07/22 11/24/22 lancets 33 gauge (TRUEplus Lancets) #100 ea 06/07/22 09/09/22 trazodone 50 mg tablet 100 mg PO BEDTIME 06/07/22 11/24/22 cholecalciferol (vitamin D3) 50 50 mcg PO DAILY 11/24/22 11/24/22 mcg (2,000 unit) tablet ferrous gluconate 324 mg (38 mg 324 mg PO QAM 11/24/22 11/24/22 iron) tablet furosemide 40 mg tablet 40 mg PO BID 11/24/22 11/24/22 insulin aspart U-100 100 unit/mL 16 unit subcut TIDAC 11/24/22 11/24/22 (3 mL) subcutaneous pen (Novolog FlexPen U-100 Insulin aspart) sertraline 50 mg tablet 100 mg PO DAILY 11/24/22 11/24/22 Previous Rx's ?Medication ?Instructions ?Recorded fluticasone furoate 100 1 inh inhalation DAILY 30 days #60 01/20/22 mcg-vilanterol 25 mcg/dose ea inhalation powder (Breo Ellipta) acetaminophen 500 mg tablet 500 mg PO Q6H PRN fever or pain 02/24/22 #14 tabs sodium zirconium cyclosilicate 10 10 g PO MOWEFR #30 ea 11/30/22 gram oral powder packet (Lokelma) torsemide 100 mg tablet 100 mg PO DAILY #30 tabs 11/30/22 Allergies Allergy/AdvReac Type Severity Reaction Status Date / Time No Known Allergies Allergy Verified 10/27/23 14:41 Review of Systems Review of Systems: ROS unable to be obtained due to altered mental status PMFSH Past Medical History Attestation statement: The following information was validated with the patient. Source: old records reviewed Medical History CHF (congestive heart failure) Anemia Acute kidney injury Brain tumor (benign) Lower extremity edema Pneumonia Asthma Pulmonary nodule HLD (hyperlipidemia) CKD (chronic kidney disease) stage 3, GFR 30-59 ml/min Seizure Acute hypoxemic respiratory failure due to COVID-19 COVID-19 Kidney stone Depression Gastritis Diabetes Surgical History H/O lithotripsy H/O ureteroscopy H/O cystoscopy S/P ureteral stent placement History of cholecystectomy H/O hernia repair Family History Family History Father CAD (coronary artery disease) Brother Lung cancer Sister Kidney stone Social History Social History Household Members: None Housing: Apartment Do you presently have visiting nurse or other home services: Yes (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 4hrs/day everyday) Alcohol intake: former Comment: pt sleeping at this time Patient Tobacco Use Status: Never used Tobacco Smoked in Last 30 Days: No e-Cigarette/Vaping Use: Never Used Use of substances other than those prescribed or required for medical reasons: No Advance Directives: Yes Advance Directives on File: Yes Advance Directives Date on File: 12/20/21 Do you have a plan to hurt others: No Plan service: No Current occupational status: unemployed Physical Exam Vital Signs: Vital Signs: Last Vital Signs Temp 98.1 F 10/27/23 14:32 Pulse 87 10/27/23 15:49 Resp 18 10/27/23 15:49 BP 159/77 H 10/27/23 15:49 Pulse Ox 100 10/27/23 15:49 O2 Del Method Room Air 10/27/23 15:49 BMI result Body Mass Index 40.2 Appearance: Somnolent but woke to voice. Oriented X to person and place. Mild acute distress. Eyes: Pupils equal, round and reactive to light. ENT: Pharynx normal. atraumatic no tongue biting Neck: Normal inspection. Neck supple. CVS: Normal heart rate and rhythm. Pulses normal. Respiratory: No respiratory distress. Breath sounds normal. Abdomen: Soft and nontender. Gu: no urinary incontinence Skin: Skin warm and dry. Normal skin color. Normal skin turgor. Extremities: No lower extremity edema. No calf ttp Neuro: Oriented X 2. No motor deficit. No sensory deficit. Course Course Course Narrative: patient just had GTC lasted about 1 min R side LOC hypoxic - IV ativan and loaded with keppra still pending CT head Reevaluation(s) Reevaluation #1: signed out to Dr. Huertas pending further workup 4pm Medications Administered Generic Name Dose Route Start Last Admin Trade Name Freq PRN Reason Stop Dose Admin Levetiracetam 1,500 mg in 100 mls @ 400 mls/hr 10/27/23 15:44 10/27/23 15:48 Keppra IV 10/27/23 15:58 400 mls/hr ONCE ONE Administration Discontinued Medications Generic Name Dose Route Start Last Admin Trade Name Freq PRN Reason Stop Dose Admin Lorazepam 2 mg 10/27/23 15:38 10/27/23 15:40 Lorazepam 2 Mg/Ml Vial IVPUSH 10/27/23 15:39 2 mg ONCE ONE Administration Lorazepam 2 mg 10/27/23 15:52 10/27/23 15:54 Lorazepam 2 Mg/Ml Vial IVPUSH 10/27/23 15:53 2 mg ONCE ONE Administration Medical Decision Making Medical Decision Making [facility] Narrative: 67 yo female with PMH of depression, CKD, diabetes, seizures not on any AEDs, benign brain tumor treated in 2020, CHF, pneumonia, asthma, kidney stones, here with c/o seizure activity at home hx of seizures but patient is now postictal after [place] versed with EMS at this time will need labs, EKG, CT head for hx of mass, observation. She has no incontinence and no tongue biting with her degree of seizures - ordered CPK and lactic acid level as well to trend. Possible seizure vs rigors vs brain mass - all imaging and seizure precautions in place if she seizes again low threshold to start AEDs. Differential Diagnosis Differential Diagnoses: The differential diagnosis associated with the presentation includes seizure, mass, rigors Admission/Observation Consideration of admission/observation: Escalation of care including admission/observation considered Lab Data [facility] Lab Attestation statement: I reviewed the patient's lab results. 10/27/23 15:32 09/13/24 15:32 Labs: Lab Results 10/27/23 10/27/23 Range/Units 15:32 15:41 RBC 2.51 L (4.20-5.50) X10*6/uL Hgb 7.8 L (12.0-16.0) g/dl Hct 23.8 L (37.0-47.0) % MCV 94.8 (80.0-98.0) fL MCH 31.1 (27.0-33.0) pg MCHC 32.8 (31.0-35.0) g/dl RDW 12.1 (11.0-16.0) % MPV 12.6 H (9.4-12.3) fL Immature Gran % (Auto) 0.8 H (0.0-0.4) % Neut % (Auto) 86.8 H (45-73) % Lymph % (Auto) 7.1 L (20-40) % Stoddard % (Auto) 4.4 (2-11) % Eos % (Auto) 0.4 (0-4) % Baso % (Auto) 0.5 (0-2) % Lymph # (Auto) 1.2 (1.2-4.9) X10*3/uL Stoddard # (Auto) 0.7 (0.1-1.2) X10*3/uL Eos # (Auto) 0.1 (0.0-0.4) X10*3/uL Baso # (Auto) 0.1 (0.0-0.2) X10*3/uL Abs Immat Gran (auto) 0.14 H (0.00-0.03) X10*3/uL Absolute Neuts (auto) 14.4 H (2.0-8.3) x10*3/uL Absolute Nucleated RBC 0.000 (0.0-0.012) X10*3/uL Nucleated RBC % (auto) 0.0 (0.0-0.2) /100WBC PT 11.7 (11.1-13.3) SEC INR 1.0 (0.9-1.1) VBG pH 7.35 (7.32-7.43) VBG pCO2 30 mmHg VBG pO2 62 mmHg VBG HCO3 17 L (22-26) mmol/L VBG O2 Saturation 92.0 % VBG Base Excess -7.4 mmol/L Independent Interpretation I performed an independent interpretation of an: EKG, Plain X-Ray and CT Scan Interpretation: Rate: 87 Rhythm: NSR Wheeler: left, LVH Normal P waves. Normal COCO. Normal QRS complex. ST T wave : artifact but no MARLEN, inverted t wave III qTC: 425 prior studies: no acute ischemia The study has been interpreted contemporaneously by me. . Independent Historian Clinical information obtained from an independent historian. History obtained from or confirmed by: EMS External Record Review External record reviewed: Inpatient record Discharge Plan Discharge Clinical Impression: Generalized seizure Patient Disposition: Still a Patient Prescriptions: No Action (DME) FreeStyle Lite Strips Strip MISCELLANEOUS QID (DME) blood-glucose meter [FreeStyle [place] Lite] Kit MISCELLANEOUS BID (DME) lancets [FreeStyle Lancets] 28 gauge misc 1 gauge topical BID Toujeo SoloStar U-300 Insulin 300 unit/mL (1.5 mL) insulin pen 30 unit subcut BID acetaminophen 500 mg tablet 500 mg PO Q6H PRN (Reason: fever or pain) Qty: 14 0RF omeprazole 40 mg capsule,delayed release(DR/EC) 40 mg PO BID atorvastatin 80 mg tablet 1 tab PO DAILY albuterol sulfate [Proventil HFA] 90 mcg/actuation HFA aerosol inhaler 2 puff INHALATION Q4-6H PRN (Reason: Shortness Of Breath) sucralfate 1 gram tablet 1 g PO QID aspirin 81 mg tablet,delayed release (DR/EC) 81 mg PO DAILY amlodipine 10 mg tablet 10 mg PO DAILY losartan 100 mg tablet 100 mg PO QAM furosemide 40 mg tablet 40 mg PO BID sertraline 50 mg tablet 100 mg PO DAILY ferrous gluconate 324 mg (38 mg iron) tablet 324 mg PO QAM insulin aspart U-100 [Novolog FlexPen U-100 Insulin] 100 unit/mL (3 mL) insulin pen 16 unit subcut TIDAC cholecalciferol (vitamin D3) 50 mcg (2,000 unit) Tablet 50 mcg PO DAILY Lokelma 10 gram Powder In Packet 10 g PO MOWEFR Qty: 30 0RF torsemide 100 mg tablet 100 mg PO DAILY Qty: 30 0RF (DME) blood pressure test kit-large Kit See Rx Instructions .ROUTE DAILY Qty: 1 Rx Instructions: As directed albuterol sulfate 2.5 mg /3 mL (0.083 %) solution for nebulization 2.5 mg inhalation TID PRN (Reason: wheezing) (DME) nebulizers Misc See Rx Instructions .Route Rx Instructions: As directed fluticasone furoate-vilanterol [Breo Ellipta] 100-25 mcg/dose blister with device 1 inh inhalation DAILY 30 Days Qty: 60 11RF diclofenac sodium 1 % gel 2 g topical BEDTIME PRN (Reason: Pain) trazodone 50 mg tablet 100 mg PO BEDTIME (DME) lancets [TRUEplus Lancets] 33 gauge misc See Rx Instructions .ROUTE BID Qty: 100 Rx Instructions: As directed Print Language: Arabic
[2023-10-27] MEDS: LORazepam 2 MG/ML VIAL IVPUSH ×2 (15:40→15:54)
[2023-10-27 15:45] LABS: MANUAL DIFF FLAG NO
[2023-10-27 15:47] LABS: Venous Blood Gas Refer to POC result
[2023-10-27 15:47] LABS: VBG Base Excess -7.4 mmol/L; VBG HCO3 17 mmol/L (22-26); VBG pCO2 30 mmHg; VBG pH 7.35 (7.32-7.43); VBG pO2 62 mmHg
[2023-10-27 15:47] LABS: Basophils Absolute Auto 0.1 X10*3/uL (0.0-0.2); Basophils Percent Auto 0.5 % (0-2); Eosinophils Absolute Auto 0.1 X10*3/uL (0.0-0.4); Eosinophils Percent Auto 0.4 % (0-4); Hematocrit 23.8 % (37.0-47.0); Hemoglobin 7.8 g/dl (12.0-16.0); Imm Gran Abs Auto 0.14 X10*3/uL (0.00-0.03); Imm Gran Pct Auto 0.8 % (0.0-0.4); Lymphocytes Absolute Auto 1.2 X10*3/uL (1.2-4.9); Lymphocytes Percent Auto 7.1 % (20-40); Mean Corpuscular HGB Conc 32.8 g/dl (31.0-35.0); Mean Corpuscular Hemoglobin 31.1 pg (27.0-33.0); Mean Corpuscular Volume 94.8 fL (80.0-98.0); Mean Platelet Volume 12.6 fL (9.4-12.3); Monocytes Absolute Auto 0.7 X10*3/uL (0.1-1.2); Monocytes Percent Auto 4.4 % (2-11); Neutrophils Absolute Auto 14.4 x10*3/uL (2.0-8.3); Neutrophils Percent Auto 86.8 % (45-73); Red Blood Count 2.51 X10*6/uL (4.20-5.50); Red Cell Distribution Width 12.1 % (11.0-16.0)
[2023-10-27] MEDS: levETIRAcetam in NaCl (iso-os) 1,500 MG/100 ML PIGGYBACK 400 MG IV (15:48)
[2023-10-27 15:53] LABS: Prothrombin Time 11.7 SEC (11.1-13.3)
[2023-10-27 15:57] LABS: Glucose, Whole Blood 109 mg/dL (60-115)
--- NOTE | 2023-10-27 15:58 | PC.NURSE ---
Patient with x 2 episodes of seizure activity, medicated per mar. Daughter at bedside stating that patient had a brain tumor removed 3 years ago and has had no seizures since and does not take seizure meds. Daughter states patient has no started dialysis yet but has an apt to have line for dialysis placed
[2023-10-27 16:01] LABS: Ammonia 22 umol/L (13-55)
[2023-10-27 16:03] LABS: Lactic Acid 1.1 mmol/L (0.5-2.0)
[2023-10-27 16:13] LABS: Troponin-I High Sensitivity 32.7 ng/L (<3.5-17.0)
[2023-10-27 16:15] LABS: White Blood Count 16.6 X10*3/uL (4.8-10.8)
[2023-10-27 16:17] LABS: B Type Natriuretic Peptide 70 pg/mL (<100)
[2023-10-27 16:33] LABS: Influenza A PCR NEGATIVE (Negative); Influenza B PCR NEGATIVE (Negative); Resp Syncy Virus RNA Qual PCR NEGATIVE (Negative); SARS COV2 PCR INHOUSE NEGATIVE (Negative)
[2023-10-27 16:44] LABS: Alanine Aminotransferase 11 U/L (0-31); Albumin Level 3.7 g/dL (3.5-5.0); Alkaline Phosphatase 107 U/L (39-117); Anion Gap 17 (12-20); Aspartate Amino Transferase 11 U/L (5-31); Bilirubin Direct 0.1 mg/dL (0.0-0.5); Bilirubin Total 0.3 mg/dL (0.0-1.0); Blood Urea Nitrogen 121 mg/dL (9-16); Calcium 9.5 mg/dL (8.4-10.2); Carbon Dioxide 18 mmol/L (22-29); Chloride 112 mmol/L (96-108); Creatinine Clr Calc Pharmacy 12.2; Estimated Glomerular Filt Rate 9; Glucose Random 121 mg/dL (60-115); Lipase 53 U/L (8-78); Magnesium 2.2 mg/dL (1.6-2.6); Potassium 4.6 mmol/L (3.3-5.1); Sodium 142 mmol/L (135-145); Total Protein 7.5 g/dL (6.5-8.0)
--- NOTE | 2023-10-27 18:10 | PC.NURSE ---
Patient incontinent of urine, changed and repositioned
[2023-10-27 18:20] LABS: TSH reflex Free T4 1.44 uIU/mL (0.32-4.0)
[2023-10-27 18:37] LABS: Appearance Urine Cloudy; Color Urine Yellow; Glucose Urine UA 100 mg/dL (Negative); Leukocyte Esterase Urine Small (1+) (Negative); Nitrite Urine Negative (Negative); PH 5.5 (5.0-9.0); Specific Gravity - Urine 1.015 (1.005-1.025); UMIC TRIGGER UACC YES; Urine Blood Small (1+) (Negative); Urine Ketones Negative (Negative); Urine Protein >=1000 (4+) mg/dL (Neg-Trace)
[2023-10-27 18:45] LABS: Bacteria Urine 3+ (None Seen); RBC Urine 0-2 /HPF (0-2); Squamous Epithelial Cell Urine 0-2 /HPF (0-2); UACC Culture Trigger YES; WBC Urine 21-50 /HPF (0-5)
--- NOTE | 2023-10-27 19:24 | MHC.EDTECH ---
Upon assuming care of Pt at 1900, Pt found to be without clothes on and incontinent of urine. T/w and measurement and sensing technician Aliyah did full bedding change, cleaned and repositioned Pt. New purewick placed and vital signs done.
--- NOTE | 2023-10-27 20:15 | P.HPHOSP_ITS ---
History of Present Illness Date of Service: 10/27/23 Attending physician on admission: Tima Lal Chief Complaint: Seizure activity Pt is a 67-year-old female with a PMH significant for?HTN, HFpEF, CKD 4, insulin-dependent type 2 diabetes, asthma, anemia of chronic disease, and GERD who presents to the ED after 4 brief witnessed seizures with generalized tonic- clonic movements at home and 2 subsequent seizures witnessed by EMS. Patient had a benign tumor removed 3 years ago with seizures noted after surgical procedure. Previously was on unknown antiseizure medication which were then stopped 6 months earlier by her PCP due to worsening kidney function. Pt is obtunded and postictal at time of interview and exam and HPI is obtained primarily through chart and provider review as well as family who is at bedside. Last reported seizure activity was approximately 2-1/2 years ago. Patient apparently has been in her normal state of health without recent illness up until this morning at 07:30 when seizure activity was witnessed by family.? Daughter reports patient has been primarily asleep and nonverbal since seizure activity and subsequent treatment with Ativan. In the ED pt was hypertensive up to 184/75 and mildly tachycardic up to 93. Labs were significant for leukocytosis of 16.6, H&H 7.8/23.8, BUN 121, creatinine 4.98, and serial troponins 32.7 and 30.2. UA consistent with acute UTI. Tested negative for flu, RSV, and COVID. CXR showed no acute cardiopulmonary disease. CT?of head showed no acute intracranial abnormality but revealed s/p left frontal craniotomy defect. EKG demonstrated normal sinus rhythm without evidence of significant ST elevations or depressions. Pt was treated with lorazepam 2 mg IV x2 doses and Keppra 1500 mg IV. Pt will be admitted to the hospital treatment and further evaluation of acute encephalopathy in the setting of persistent seizure activity. Review of Systems 2 Review of Systems: Unable obtain due to patient's mentation [facility] Medical History CHF (congestive heart failure) Anemia Acute kidney injury Brain tumor (benign) Lower extremity edema Pneumonia Asthma Pulmonary nodule HLD (hyperlipidemia) CKD (chronic kidney disease) stage 3, GFR 30-59 ml/min Seizure Acute hypoxemic respiratory failure due to COVID-19 COVID-19 Kidney stone Depression Gastritis Diabetes Family History Father CAD (coronary artery disease) Brother Lung cancer Sister Kidney stone Surgical History H/O lithotripsy H/O ureteroscopy H/O cystoscopy S/P ureteral stent placement History of cholecystectomy H/O hernia repair Social History Household Members: None Housing: Apartment Do you presently have visiting nurse or other home services: Yes ([employer] 4hrs/day everyday) Alcohol intake: former Comment: pt sleeping at this time Patient Tobacco Use Status: Never used Tobacco Smoked in Last 30 Days: No e-Cigarette/Vaping Use: Never Used Use of substances other than those prescribed or required for medical reasons: No Advance Directives: Yes Advance Directives on File: Yes Advance Directives Date on File: 12/20/21 Do you have a plan to hurt others: No Plan service: No Current occupational status: unemployed Meds Allergies Allergy/AdvReac Type Severity Reaction Status Date / Time No Known Allergies Allergy Verified 10/27/23 14:41 Active Medications: Current Medications Ceftriaxone Sodium 1 gm/ (Sodium Chloride) 50 mls @ 100 mls/hr IV Q24H KATHERINE Home Medications ?Medication ?Instructions ?Recorded ?Confirmed ?Last Taken ?Type blood sugar diagnostic (FreeStyle 03/28/20 09/09/22 Unknown History Lite Strips) blood-glucose meter (FreeStyle 03/28/20 09/09/22 Unknown History [place] Lite kit) lancets 28 gauge (FreeStyle 03/28/20 09/09/22 Unknown History Lancets) omeprazole 40 mg capsule,delayed 40 mg PO BID@0630,1630 10/02/21 10/27/23 10/26/23 History release blood pressure test kit-large #1 ea 10/12/21 09/09/22 Unknown History atorvastatin 80 mg tablet 1 tab PO DAILY 12/20/21 10/27/23 10/26/23 History nebulizers 01/20/22 09/09/22 Unknown History amlodipine 10 mg tablet 10 mg PO DAILY 05/29/22 10/27/23 10/26/23 History aspirin 81 mg tablet,delayed 81 mg PO DAILY 05/29/22 10/27/23 10/26/23 History release losartan 100 mg tablet 100 mg PO DAILY 05/29/22 10/27/23 10/26/23 History sucralfate 1 gram tablet 1 g PO QID 05/29/22 10/27/23 10/26/23 History lancets 33 gauge (TRUEplus Lancets) #100 ea 06/07/22 09/09/22 Unknown History trazodone 50 mg tablet 100 mg PO BEDTIME 06/07/22 10/27/23 10/26/23 History cholecalciferol (vitamin D3) 50 50 mcg PO DAILY 11/24/22 10/27/23 10/26/23 History mcg (2,000 unit) tablet ferrous gluconate 324 mg (38 mg 324 mg PO DAILY 11/24/22 10/27/23 10/26/23 History iron) tablet furosemide 40 mg tablet 40 mg PO BID 11/24/22 10/27/23 10/26/23 History insulin aspart 6 - 8 unit subcut TID 10/27/23 10/27/23 10/26/23 History (niacinamide)(U-100) 100 unit/mL(3 mL) subcutaneous pen (Fiasp FlexTouch U-100 Insulin) insulin glargine 100 unit/mL (3 30 unit subcut BID 10/27/23 10/27/23 10/26/23 History mL) subcutaneous pen (Basaglar KwikPen U-100 Insulin) Physical Exam 2 Vital Signs and Narrative: Vital Signs: Last Vital Signs Temp 98.4 F 10/27/23 19:24 Pulse 88 10/27/23 19:24 Resp 18 10/27/23 19:24 BP 146/43 H 10/27/23 19:24 Pulse Ox 100 10/27/23 19:24 O2 Del Method Nasal Cannula 10/27/23 19:24 O2 Flow Rate 2 10/27/23 19:24 BMI result Body Mass Index 40.2 General: Patient obtunded, sleeping, snoring, in no acute distress Resp: Unable to auscultate due to snoring, in no acute respiratory distress. No accessory muscle use CVS: S1, S2, RRR GI: +BS, NT, no distention, reducible umbilical hernia Skin: Warm, dry Neuro: Motor grossly intact bilaterally Extremities: No edema Results Labs 10/27/23 15:32 10/27/23 15:32 Labs: Laboratory Results - last 24 hr 10/27/23 10/27/23 10/27/23 15:32 15:41 15:43 MCV 94.8 MCH 31.1 MCHC 32.8 RDW 12.1 Plt Count Not Reportable MPV 12.6 H Immature Gran % (Auto) 0.8 H Neut % (Auto) 86.8 H Lymph % (Auto) 7.1 L [place] % (Auto) 4.4 Eos % (Auto) 0.4 Baso % (Auto) 0.5 Lymph # (Auto) 1.2 [place] # (Auto) 0.7 Eos # (Auto) 0.1 Baso # (Auto) 0.1 Abs Immat Gran (auto) 0.14 H Absolute Neuts (auto) 14.4 H Absolute Nucleated RBC 0.000 Nucleated RBC % (auto) 0.0 PT 11.7 INR 1.0 VBG pH 7.35 VBG pCO2 30 VBG pO2 62 VBG HCO3 17 L VBG O2 Saturation 92.0 VBG Base Excess -7.4 Anion Gap 17 Estim Creat Clear Calc 12.2 Estimated GFR 9 POC Glucose 109 Random Glucose 121 H Lactic Acid 1.1 Calcium 9.5 Magnesium 2.2 Total Bilirubin 0.3 Direct Bilirubin 0.1 AST 11 ALT 11 Alkaline Phosphatase 107 Ammonia 22 Total Creatine Kinase 105 Troponin I High Sens 32.7 H D B-Natriuretic Peptide 70 Total Protein 7.5 Albumin 3.7 Lipase 53 TSH 1.44 Urine Color Urine Appearance Urine pH Ur Specific [place] Urine Protein Urine Glucose (UA) Urine Ketones Urine Blood Urine Nitrite Ur Leukocyte Esterase Urine RBC Urine WBC Ur Squamous Epith Cells Urine Bacteria Hyaline Casts Influenza Type A (PCR) NEGATIVE Influenza Type B (PCR) NEGATIVE RSV RNA Qual (PCR) NEGATIVE SARS-CoV-2 RNA (RT-PCR) NEGATIVE 10/27/23 18:31 MCV MCH MCHC RDW Plt Count MPV Immature Gran % (Auto) Neut % (Auto) Lymph % (Auto) [place] % (Auto) Eos % (Auto) Baso % (Auto) Lymph # (Auto) [place] # (Auto) Eos # (Auto) Baso # (Auto) Abs Immat Gran (auto) Absolute Neuts (auto) Absolute Nucleated RBC Nucleated RBC % (auto) PT INR VBG pH VBG pCO2 VBG pO2 VBG HCO3 VBG O2 Saturation VBG Base Excess Anion Gap Estim Creat Clear Calc Estimated GFR POC Glucose Random Glucose Lactic Acid Calcium Magnesium Total Bilirubin Direct Bilirubin AST ALT Alkaline Phosphatase Ammonia Total Creatine Kinase Troponin I High Sens B-Natriuretic Peptide Total Protein Albumin Lipase TSH Urine Color Yellow Urine Appearance Cloudy Urine pH 5.5 Ur Specific [place] 1.015 Urine Protein >=1000 (4+) H Urine Glucose (UA) 100 H Urine Ketones Negative Urine Blood Small (1+) H Urine Nitrite Negative Ur Leukocyte Esterase Small (1+) H Urine RBC 0-2 Urine WBC 21-50 H Ur Squamous Epith Cells 0-2 Urine Bacteria 3+ Hyaline Casts 6-10 Influenza Type A (PCR) Influenza Type B (PCR) RSV RNA Qual (PCR) SARS-CoV-2 RNA (RT-PCR) Imaging Radiologist's Impressions: Impressions Head CT 10/27/23 14:57 IMPRESSION: No acute intracranial abnormality. Electronically signed by: Jakob Newton DO 10/27/2023 05:34 PM EDT RP Chest X-Ray 10/27/23 15:08 IMPRESSION: No acute cardiopulmonary disease. Electronically signed by: Jakob Newton DO 10/27/2023 04:11 PM EDT RP Assessment and Plan (1) Generalized seizure: Status: Acute (2) UTI (urinary tract infection): Qualifiers: Hematuria presence: without hematuria Urinary tract infection type: s ite unspecified Qualified Code(s): N39.0 - Urinary tract infection, site not specified Status: Inactive Plan Pt is a 67-year-old female with a PMH significant for?HTN, HFpEF, CKD 4, insulin-dependent type 2 diabetes, asthma, anemia of chronic disease, and GERD who presents to the ED after 4 brief witnessed seizures with generalized tonic- clonic movements at home and 2 subsequent seizures witnessed by EMS. Pt will be admitted to the hospital treatment and further evaluation of acute encephalopathy in the setting of persistent seizure activity. Acute encephalopathy in the setting of persistent seizure activity Patient with at least 6-7 witnessed tonic-clonic seizures since this morning Pt with seizure disorder after frontal craniotomy 3 years ago Taken off antiseizure medication 6 months ago by PCP due to worsening kidney function and CKD4 Patient given intranasal Versed by EMS, Ativan 2 mg IV x2 doses, and Keppra 1500 mg in the ED Patient is still obtunded, likely multifactorial: postictal and treated with benzos Aspiration and seizure precautions Neurology consult Will hold on additional antiseizure medication pending Neurology input Monitor on telemetry Leukocytosis WBCs 16.6 at time of presentation Likely reactionary in the setting of seizure activity No sepsis UTI UA consistent with acute UTI Will treat with ceftriaxone, started 10/27/2023 No sepsis: Leukocytosis reactive, elevated HR secondary to seizure activity Follow cultures Anemia Likely of chronic disease H&H 7.8/23.8, similar to previous on 06/21 Seemingly stable, at baseline Trend CBC Elevated troponins Serial troponins flat at 32.7 and 30.2 Likely in the setting of above EKG without ischemic changes Monitor on telemetry CKD4 Worsening BUN of 121 and creatinine 4.98 Likely in the setting of above Patient receiving gentle IV fluid hydration at 50 mLs/hr Nephrology consult HTN Continue amlodipine HLD Continue statin Insulin-dependent type 2 diabetes Sliding-scale insulin for now Lantus at half while NPO Diabetic diet once no longer NPO GERD PPI Full Code Attending:?Dr. Witt DVT Prophylaxis: Heparin Pt will require a hospitalization of at least two nights for treatment of?acute metabolic encephalopathy in the setting of prolonged seizure activity. Patient will require close monitoring of cardiac function, labs, and specialist consultation with Nephrology and Neurology due to breakthrough seizures and worsening kidney function. Quality Stroke Does the patient have a stroke diagnosis?: No VTE Prior VTE?: No VTE Risk Level:: Medical - moderate - high VTE Device Contraindication: Treatment Not Indicated VTE Drug Contraindication: N/A - Med Ordered
[2023-10-27] MEDS: cefTRIAXone sodium 1 GM in 0.9 % Sodium Chloride 50 ML IV (20:21)
[2023-10-27 20:31] LABS: Troponin-I High Sensitivity 30.2 ng/L (<3.5-17.0)
--- NOTE | 2023-10-27 21:03 | PHA.MEDREC ---
Addendum entered by Jacinto Contreras RPh 10/27/23 22:09: Med rec was reviewed by [facility]. Daughter said patient takes 100 mg of trazodone at bedtime. Original Note: Pharmacy Consult ? Medication Reconciliation Pharmacy has completed the medication reconciliation. Spoke to patient daughter through director of vocational guidance service ([place]) to confirm med list. Daughter had a list of patients medication on her phone. Daughter states patient no longer takes Albuterol Sulfate via Nebulizer, Proventil HFA, Diclofenac sod 1 % gel, Fluticasone furoate 100/25 mg, Sertraline 100 mg, and Torsemide 100 mg. Daughter states patient injects Fiasp FlexTouch 6-8 units tid and Basaglar KwikPen 30 units bid.
[2023-10-27] MEDS: 0.9 % Sodium Chloride 1,000 ML 50 ML IVCONT (22:51)
[2023-10-27] MEDS: Heparin Sodium,Porcine 5,000 UNIT/ML VIAL 5000 UNIT SUBCUT (22:51)
[2023-10-27 23:52] LABS: Venous Blood Gas Refer to POC result
[2023-10-27 23:53] LABS: VBG Base Excess -5.8 mmol/L; VBG HCO3 19 mmol/L (22-26); VBG pCO2 36 mmHg; VBG pH 7.33 (7.32-7.43); VBG pO2 53 mmHg
--- NOTE | 2023-10-27 23:55 | MHC.EDTECH ---
Pt with working purewick in place, however found to be slightly wet. T/w and RN cleaned Pt, put new hospital gown on her and repositioned. Call flannery within reach.
[2023-10-28] VITALS (7 sets, daily range): BP systolic 133–176; BP diastolic 67–96; PULSE 71–85; RESP 16–20; TEMP 36.1–36.8; O2SAT 98–100; BMI 40.2
[2023-10-28] MEDS: Sodium Zirconium Cyclosilicate 10 GM POWD.PACK PO (00:22)
[2023-10-28 02:50] LABS: Glucose, Whole Blood 84 mg/dL (60-115)
[2023-10-28] MEDS: levETIRAcetam in NaCl (iso-os) 1,500 MG/100 ML PIGGYBACK 400 MG IV (04:48)
[2023-10-28] MEDS: Heparin Sodium,Porcine 5,000 UNIT/ML VIAL 5000 UNIT SUBCUT ×3 (06:49→22:31)
[2023-10-28 07:26] LABS: Hematocrit 23.9 % (37.0-47.0); Hemoglobin 7.7 g/dl (12.0-16.0); Mean Corpuscular HGB Conc 32.2 g/dl (31.0-35.0); Mean Corpuscular Hemoglobin 30.9 pg (27.0-33.0); PLT CLUMP 1; Red Blood Count 2.49 X10*6/uL (4.20-5.50); Red Cell Distribution Width 12.3 % (11.0-16.0)
[2023-10-28 07:38] LABS: White Blood Count 15.3 X10*3/uL (4.8-10.8)
[2023-10-28 07:39] LABS: Glucose, Whole Blood 83 mg/dL (60-115)
[2023-10-28 07:50] LABS: Anion Gap 17 (12-20); Blood Urea Nitrogen 116 mg/dL (9-16); Calcium 9.3 mg/dL (8.4-10.2); Carbon Dioxide 16 mmol/L (22-29); Chloride 115 mmol/L (96-108); Creatinine Clr Calc Pharmacy 13.7; Estimated Glomerular Filt Rate 10; Glucose Random 85 mg/dL (60-115); Potassium 4.2 mmol/L (3.3-5.1); Sodium 144 mmol/L (135-145)
[2023-10-28] MEDS: Aspirin Enteric Coated 81 MG TABLET.DR PO (09:06)
[2023-10-28] MEDS: Sucralfate 1 GM TABLET PO ×3 (09:06→16:27)
[2023-10-28] MEDS: Atorvastatin Calcium 80 MG TABLET PO (09:06)
[2023-10-28] MEDS: Cholecalciferol (Vitamin D3) 25 MCG TABLET 50 MCG PO (09:06)
[2023-10-28] MEDS: Ferrous Sulfate 324 MG TABLET.DR PO (09:06)
[2023-10-28] MEDS: amLODIPine Besylate 10 MG TABLET PO (09:07)
[2023-10-28] MEDS: 0.9 % Sodium Chloride Flush 3 ML SYRINGE IVFLUSH ×2 (09:07→16:27)
--- NOTE | 2023-10-28 11:05 | HO.PM.IMPN ---
Subjective Subjective Date of Service: 10/28/23 Review of Systems Review of Systems: Yes Unobtainable due to mental condition and Unobtainable due to mental status Physical Exam Vital Signs: Vital Signs: Last Vital Signs Temp 98.2 F 10/28/23 08:00 Pulse 80 10/28/23 08:00 Resp 20 10/28/23 08:00 BP 166/69 H 10/28/23 08:00 Pulse Ox 100 10/28/23 08:00 O2 Del Method Room Air 10/28/23 08:00 O2 Flow Rate 2 10/28/23 01:43 BMI result Body Mass Index 40.2 obtunded, right hand tremor, lungs clear Objective Data Active Medications Acetaminophen (Acetaminophen 325 Mg Tablet) 650 mg PO Q6H PRN PRN Reason: Pain, Mild (Pain Scale 1-3), fever or headache Amlodipine Besylate (Amlodipine Besylate 10 Mg Tablet) 10 mg PO DAILY [facility]; Protocol Last Admin: 10/28/23 09:07 Dose: 10 mg Documented By: PAULA Aspirin (Aspirin Enteric Coated 81 Mg Tablet.) 81 mg PO DAILY [facility] Last Admin: 10/28/23 09:06 Dose: 81 mg Documented By: PAULA Atorvastatin Calcium (Atorvastatin Calcium 80 Mg Tablet) 80 mg PO DAILY [facility] Last Admin: 10/28/23 09:06 Dose: 80 mg Documented By: PAULA Calcium Carbonate (Calcium Carbonate 750 Mg Tab.Chew) 750 mg PO Q4H PRN PRN Reason: Heartburn Ferrous Sulfate (Ferrous Sulfate 324 Mg Tablet.) 324 mg PO DAILY [facility] Last Admin: 10/28/23 09:06 Dose: 324 mg Documented By: PAULA Heparin Sodium (Porcine) (Heparin Sodium,Porcine 5,000 Unit/Ml Vial) 5,000 unit SUBCUT Q8H [facility] Last Admin: 10/28/23 06:49 Dose: 5,000 unit Documented By: KEELY Ceftriaxone Sodium 1 gm/ (Sodium Chloride) 50 mls @ 100 mls/hr IV Q24H [facility] Last Infusion: 10/27/23 20:49 Dose: Infused Documented By: KRISTI Sodium Chloride (Ns) 1,000 mls @ 50 mls/hr IVCONT .Q20H [facility] Last Admin: 10/27/23 22:51 Dose: 50 mls/hr Documented By: KRISTI Levetiracetam (Levetiracetam 1,000 Mg Tablet) 1,000 mg PO BID [facility] Lorazepam (Lorazepam 2 Mg/Ml Vial) 2 mg IVPUSH Q4H PRN PRN Reason: Seizures Magnesium Hydroxide (Milk Of Magnesia 30 Ml Oral.Susp) 30 ml PO DAILY PRN PRN Reason: Constipation Melatonin (Melatonin 3 Mg Tablet) 6 mg PO BEDTIME PRN PRN Reason: Insomnia Omeprazole (Omeprazole 40 Mg Capsule.Dr) 40 mg PO BID@0630,1630 [facility] Last Admin: 10/28/23 06:50 Dose: Not Given Documented By: KEELY Non-Admin Reason: NPO Ondansetron HCl (Ondansetron Hcl 4 Mg/2 Ml Vial) 4 mg IVPUSH Q8H PRN PRN Reason: Nausea and Vomiting Sodium Chloride (0.9 % Sodium Chloride Flush 3 Ml Syringe) 3 ml IVFLUSH QSHIFT [facility] Last Admin: 10/28/23 09:07 Dose: 3 ml Documented By: PAULA Sodium Zirconium Cyclosilicate (Sodium Zirconium Cyclosilicate 10 Gm Powd.Pack) 10 gm PO MOWEFR [facility] Last Admin: 10/28/23 00:22 Dose: 10 gm Documented By: KRISTI Sucralfate (Sucralfate 1 Gm Tablet) 1 gm PO QID [facility] Last Admin: 10/28/23 09:06 Dose: 1 gm Documented By: PAULA Trazodone HCl (Trazodone Hcl 100 Mg Tablet) 100 mg PO BEDTIME [facility] Vitamin D (Cholecalciferol (Vitamin D3) 25 Mcg Tablet) 50 mcg PO DAILY [facility] Last Admin: 10/28/23 09:06 Dose: 50 mcg Documented By: PAULA Labs 10/28/23 06:11 10/28/23 06:11 Labs: Laboratory Results - last 24 hr 10/27/23 10/27/23 10/27/23 15:32 15:41 15:43 MCV 94.8 MCH 31.1 MCHC 32.8 RDW 12.1 Plt Count Not Reportable MPV 12.6 H Immature Gran % (Auto) 0.8 H Neut % (Auto) 86.8 H Lymph % (Auto) 7.1 L [place] % (Auto) 4.4 Eos % (Auto) 0.4 Baso % (Auto) 0.5 Lymph # (Auto) 1.2 [place] # (Auto) 0.7 Eos # (Auto) 0.1 Baso # (Auto) 0.1 Abs Immat Gran (auto) 0.14 H Absolute Neuts (auto) 14.4 H Absolute Nucleated RBC 0.000 Nucleated RBC % (auto) 0.0 PT 11.7 INR 1.0 VBG pH 7.35 VBG pCO2 30 VBG pO2 62 VBG HCO3 17 L VBG O2 Saturation 92.0 VBG Base Excess -7.4 Anion Gap 17 Estim Creat Clear Calc 12.2 Estimated GFR 9 POC Glucose 109 Random Glucose 121 H Lactic Acid 1.1 Calcium 9.5 Magnesium 2.2 Total Bilirubin 0.3 Direct Bilirubin 0.1 AST 11 ALT 11 Alkaline Phosphatase 107 Ammonia 22 Total Creatine Kinase 105 Troponin I High Sens 32.7 H D B-Natriuretic Peptide 70 Total Protein 7.5 Albumin 3.7 Lipase 53 TSH 1.44 Urine Color Urine Appearance Urine pH Ur Specific [place] Urine Protein Urine Glucose (UA) Urine Ketones Urine Blood Urine Nitrite Ur Leukocyte Esterase Urine RBC Urine WBC Ur Squamous Epith Cells Urine Bacteria Hyaline Casts Influenza Type A (PCR) NEGATIVE Influenza Type B (PCR) NEGATIVE RSV RNA Qual (PCR) NEGATIVE SARS-CoV-2 RNA (RT-PCR) NEGATIVE 10/27/23 10/27/23 10/27/23 18:31 20:02 23:47 MCV MCH MCHC RDW Plt Count MPV Immature Gran % (Auto) Neut % (Auto) Lymph % (Auto) [place] % (Auto) Eos % (Auto) Baso % (Auto) Lymph # (Auto) [place] # (Auto) Eos # (Auto) Baso # (Auto) Abs Immat Gran (auto) Absolute Neuts (auto) Absolute Nucleated RBC Nucleated RBC % (auto) PT INR VBG pH 7.33 VBG pCO2 36 VBG pO2 53 VBG HCO3 19 L VBG O2 Saturation 86.0 VBG Base Excess -5.8 Anion Gap Estim Creat Clear Calc Estimated GFR POC Glucose Random Glucose Lactic Acid Calcium Magnesium Total Bilirubin Direct Bilirubin AST ALT Alkaline Phosphatase Ammonia Total Creatine Kinase Troponin I High Sens 30.2 H B-Natriuretic Peptide Total Protein Albumin Lipase TSH Urine Color Yellow Urine Appearance Cloudy Urine pH 5.5 Ur Specific [place] 1.015 Urine Protein >=1000 (4+) H Urine Glucose (UA) 100 H Urine Ketones Negative Urine Blood Small (1+) H Urine Nitrite Negative Ur Leukocyte Esterase Small (1+) H Urine RBC 0-2 Urine WBC 21-50 H Ur Squamous Epith Cells 0-2 Urine Bacteria 3+ Hyaline Casts 6-10 Influenza Type A (PCR) Influenza Type B (PCR) RSV RNA Qual (PCR) SARS-CoV-2 RNA (RT-PCR) 10/28/23 10/28/23 10/28/23 02:45 06:11 07:17 MCV 96.0 MCH 30.9 MCHC 32.2 RDW 12.3 Plt Count TNP MPV Not Reportable Immature Gran % (Auto) Neut % (Auto) Lymph % (Auto) [place] % (Auto) Eos % (Auto) Baso % (Auto) Lymph # (Auto) [place] # (Auto) Eos # (Auto) Baso # (Auto) Abs Immat Gran (auto) Absolute Neuts (auto) Absolute Nucleated RBC 0.000 Nucleated RBC % (auto) 0.0 PT INR VBG pH VBG pCO2 VBG pO2 VBG HCO3 VBG O2 Saturation VBG Base Excess Anion Gap 17 Estim Creat Clear Calc 13.7 Estimated GFR 10 POC Glucose 84 83 Random Glucose 85 Lactic Acid Calcium 9.3 Magnesium Total Bilirubin Direct Bilirubin AST ALT Alkaline Phosphatase Ammonia Total Creatine Kinase Troponin I High Sens B-Natriuretic Peptide Total Protein Albumin Lipase TSH Urine Color Urine Appearance Urine pH Ur Specific [place] Urine Protein Urine Glucose (UA) Urine Ketones Urine Blood Urine Nitrite Ur Leukocyte Esterase Urine RBC Urine WBC Ur Squamous Epith Cells Urine Bacteria Hyaline Casts Influenza Type A (PCR) Influenza Type B (PCR) RSV RNA Qual (PCR) SARS-CoV-2 RNA (RT-PCR) Assessment and Plan (1) Generalized seizure: Status: Acute Plan 67F PMH hypertension, chronic diastolic CHF, CKD 4, diabetes, asthma, anemia of chronic disease, GERD presented with witnessed seizure. Acute metabolic encephalopathy due to multiple seizures Continue Ashok Jimenes p.r.n., neuro eval UTI Ceftriaxone, follow-up cultures Chronic anemia of chronic disease Stable, monitor CKD 4 Follow-up nephrology Hypertension Amlodipine Hyperlipidemia Statin Diabetes Basal bolus insulin GERD PPI DVT prophylaxis with heparin subQ Full code reason for continued hospitalization: Ongoing seizures Quality Stroke Does the patient have a stroke diagnosis?: No VTE Prior VTE?: No VTE Risk Level:: Medical - moderate - high VTE Device Contraindication: Treatment Not Indicated VTE Drug Contraindication: N/A - Med Ordered
[2023-10-28] MEDS: Omeprazole 40 MG CAPSULE.DR PO (11:17)
[2023-10-28] MEDS: LORazepam 2 MG/ML VIAL IVPUSH ×2 (11:17→19:24)
[2023-10-28 11:33] LABS: Glucose, Whole Blood 123 mg/dL (60-115)
--- NOTE | 2023-10-28 13:14 | MHC.CM.PN ---
IMM 10/28/23, completed with dtr / HCP: Emily, pt. was asleep. Pt. lives with her dtr, she has 4 hours of [employer] services per day. She does not have VNA services, she went to a [facility] in [place] (could not remember which one) for 2 days, and family took her home, they said it was not a good experience. Family to transport home at [place]. PCP confirmed: Lucrecia Teixeira. DCP: home, resume services, CM to follow for DC needs.
[2023-10-28] MEDS: Acetaminophen 325 MG TABLET 650 MG PO (14:36)
[2023-10-28 16:26] LABS: Glucose, Whole Blood 158 mg/dL (60-115)
[2023-10-28] MEDS: 0.9 % Sodium Chloride 1,000 ML 50 ML IVCONT (18:34)
--- NOTE | 2023-10-28 20:19 | PC.NURSE ---
Addendum entered by Eliza Mcguire RN 10/29/23 00:42: After sleeping briefly in the evening, patient was awake and impulsive attempting get to OOB as alerted by VMT. Refining Supervisor to bedside, pt assisted back to bed by staff and incontinence care provided, purewick replaced, and pt repositioned. Refining Supervisor then attempted to medicated pt with scheduled po evening meds; attempted nursing bedside swallow though patient observed with mouth open and water dribbling out of mouth with HOB elevated. notified; po meds held and keppra changed to IV formulary and administered. In-room camera and bed alarm, safety measures continue. Handoff report given to oncoming RN at 23:15. Original Note: Assumed care of patient at 19:00. On bedside safe start pt was boosted and repositioned for aspiration and seizure precautions as ordered. After boosting pt noted with arms moving not following commands, to be gazing off into right with conjugate gaze, concerning for seizure. Pt's daughter was present at the bedside and stated she has been doing this since I got . Of note, call flannery had not been on and this was first notification to staff by family present. Seizure precautions in place. Vitals obtained, stable. Prn ativan given for seizure per APR order. Covering Dr. Alvarado notified. Follow up vitals obtained by database report writer, stable (see flowsheet); Patient responsive and opening eyes to light touch and speaking to staff in clear speech while database report writer was obtaining blood pressure with lug breaker and wire puller present for assessment. Breathing even and unlabored without distress RR 16. Spo2 100%. No further seizure activity noted. Follow up assessment and vitals were communicated to Dr. Alvarado.
[2023-10-28 20:51] LABS: Glucose, Whole Blood 174 mg/dL (60-115)
[2023-10-28] MEDS: cefTRIAXone sodium 1 GM in 0.9 % Sodium Chloride 50 ML IV (20:58)
[2023-10-28] MEDS: levETIRAcetam in NaCl (iso-os) 500 MG/100 ML PIGGYBACK 400 MG IV (22:28)
[2023-10-29] VITALS (9 sets, daily range): BP systolic 142–172; BP diastolic 65–74; PULSE 73–83; RESP 18–22; TEMP 36.5–37.1; O2SAT 98–100
[2023-10-29] MEDS: 0.9 % Sodium Chloride Flush 3 ML SYRINGE IVFLUSH ×3 (00:51→23:15)
[2023-10-29] MEDS: Heparin Sodium,Porcine 5,000 UNIT/ML VIAL 5000 UNIT SUBCUT ×3 (06:12→21:23)
[2023-10-29] MEDS: Omeprazole 40 MG CAPSULE.DR PO (06:15)
[2023-10-29 06:57] LABS: Mean Corpuscular HGB Conc 32.3 g/dl (31.0-35.0); Mean Corpuscular Hemoglobin 31.3 pg (27.0-33.0); PLT CLUMP 1; Red Blood Count 2.01 X10*6/uL (4.20-5.50); Red Cell Distribution Width 12.3 % (11.0-16.0)
[2023-10-29 07:13] LABS: Hematocrit 19.5 % (37.0-47.0); Hemoglobin 6.3 g/dl (12.0-16.0)
[2023-10-29 07:19] LABS: White Blood Count 13.3 X10*3/uL (4.8-10.8)
[2023-10-29 07:40] LABS: Anion Gap 13 (12-20); Blood Urea Nitrogen 102 mg/dL (9-16); Calcium 8.4 mg/dL (8.4-10.2); Carbon Dioxide 18 mmol/L (22-29); Chloride 116 mmol/L (96-108); Creatinine Clr Calc Pharmacy 14.2; Estimated Glomerular Filt Rate 10; Glucose Fasting 144 mg/dL (60-99); Glucose Random 145 mg/dL (60-115); Potassium 3.9 mmol/L (3.3-5.1); Sodium 143 mmol/L (135-145)
[2023-10-29 07:59] LABS: Glucose, Whole Blood 125 mg/dL (60-115)
[2023-10-29] MEDS: amLODIPine Besylate 10 MG TABLET PO (08:53)
[2023-10-29] MEDS: Aspirin Enteric Coated 81 MG TABLET.DR PO (08:53)
[2023-10-29] MEDS: Atorvastatin Calcium 80 MG TABLET PO (09:00)
[2023-10-29] MEDS: Ferrous Sulfate 324 MG TABLET.DR PO (09:00)
[2023-10-29] MEDS: Cholecalciferol (Vitamin D3) 25 MCG TABLET 50 MCG PO (09:01)
--- NOTE | 2023-10-29 09:31 | HO.PM.IMPN ---
Subjective Subjective Date of Service: 10/29/23 Review of Systems Review of Systems: Yes Unobtainable due to mental condition and Unobtainable due to mental status Physical Exam Vital Signs: Vital Signs: Last Vital Signs Temp 97.7 F 10/29/23 08:00 Pulse 83 10/29/23 08:00 Resp 22 H 10/29/23 08:00 BP 172/74 H 10/29/23 08:00 Pulse Ox 100 10/29/23 08:00 O2 Del Method Nasal Cannula 10/29/23 08:00 O2 Flow Rate 1.5 10/29/23 08:00 BMI result Body Mass Index 40.2 minimally responsive, does swallow food when prompted Objective Data Active Medications Acetaminophen (Acetaminophen 325 Mg Tablet) 650 mg PO Q6H PRN PRN Reason: Pain, Mild (Pain Scale 1-3), fever or headache Last Admin: 10/28/23 14:36 Dose: 650 mg Documented By: ALISON Amlodipine Besylate (Amlodipine Besylate 10 Mg Tablet) 10 mg PO DAILY [facility]; Protocol Last Admin: 10/29/23 08:53 Dose: 10 mg Documented By: WALTMOSALVATORE Aspirin (Aspirin Enteric Coated 81 Mg Tablet.) 81 mg PO DAILY [facility] Last Admin: 10/29/23 08:53 Dose: 81 mg Documented By: WALTMOSALVATORE Atorvastatin Calcium (Atorvastatin Calcium 80 Mg Tablet) 80 mg PO DAILY [facility] Last Admin: 10/29/23 09:00 Dose: 80 mg Documented By: WALTMORP Calcium Carbonate (Calcium Carbonate 750 Mg Tab.Chew) 750 mg PO Q4H PRN PRN Reason: Heartburn Ferrous Sulfate (Ferrous Sulfate 324 Mg Tablet.) 324 mg PO DAILY [facility] Last Admin: 10/29/23 09:00 Dose: 324 mg Documented By: VASYL Heparin Sodium (Porcine) (Heparin Sodium,Porcine 5,000 Unit/Ml Vial) 5,000 unit SUBCUT Q8H [facility] Last Admin: 10/29/23 06:12 Dose: 5,000 unit Documented By: KEELY Ceftriaxone Sodium 1 gm/ (Sodium Chloride) 50 mls @ 100 mls/hr IV Q24H [facility] Last Infusion: 10/28/23 21:28 Dose: Infused Documented By: AMANDA Sodium Chloride (Ns) 1,000 mls @ 50 mls/hr IVCONT .Q20H [facility] Last Admin: 10/28/23 18:34 Dose: 50 mls/hr Documented By: ROSCOE Levetiracetam (Keppra) 500 mg in 100 mls @ 400 mls/hr IV Q24H [facility] Last Infusion: 10/28/23 22:43 Dose: Infused Documented By: AMANDA Lorazepam (Lorazepam 2 Mg/Ml Vial) 2 mg IVPUSH Q4H PRN PRN Reason: Seizures Last Admin: 10/28/23 19:24 Dose: 2 mg Documented By: ROSCOE Magnesium Hydroxide (Milk Of Magnesia 30 Ml Oral.Susp) 30 ml PO DAILY PRN PRN Reason: Constipation Melatonin (Melatonin 3 Mg Tablet) 6 mg PO BEDTIME PRN PRN Reason: Insomnia Omeprazole (Omeprazole 40 Mg Capsule.Dr) 40 mg PO BID@0630,1630 [facility] Last Admin: 10/29/23 06:15 Dose: 40 mg Documented By: KEELY Ondansetron HCl (Ondansetron Hcl 4 Mg/2 Ml Vial) 4 mg IVPUSH Q8H PRN PRN Reason: Nausea and Vomiting Sodium Chloride (0.9 % Sodium Chloride Flush 3 Ml Syringe) 3 ml IVFLUSH QSHIFT [facility] Last Admin: 10/29/23 08:52 Dose: 3 ml Documented By: VASYL Sodium Zirconium Cyclosilicate (Sodium Zirconium Cyclosilicate 10 Gm Powd.Pack) 10 gm PO MOWEFR [facility] Last Admin: 10/28/23 00:22 Dose: 10 gm Documented By: KRISTI Sucralfate (Sucralfate 1 Gm Tablet) 1 gm PO QID [facility] Last Admin: 10/29/23 09:07 Dose: Not Given Documented By: VASYL Non-Admin Reason: Patient Condition Contraindication Trazodone HCl (Trazodone Hcl 100 Mg Tablet) 100 mg PO BEDTIME [facility] Last Admin: 10/28/23 21:26 Dose: Not Given Documented By: AMANDA Non-Admin Reason: NPO Vitamin D (Cholecalciferol (Vitamin D3) 25 Mcg Tablet) 50 mcg PO DAILY [facility] Last Admin: 10/29/23 09:01 Dose: 50 mcg Documented By: HO.PODMORP Labs 10/29/23 05:47 10/29/23 05:47 Labs: Laboratory Results - last 24 hr 10/28/23 10/28/23 10/28/23 11:04 16:22 20:41 MCV MCH MCHC RDW Plt Count MPV Absolute Nucleated RBC Nucleated RBC % (auto) Anion Gap Estim Creat Clear Calc Estimated GFR POC Glucose 123 H 158 H 174 H Random Glucose Fasting Glucose Calcium Blood Type Antibody Screen Crossmatch 10/29/23 10/29/23 10/29/23 05:47 07:28 08:30 MCV 97.0 MCH 31.3 MCHC 32.3 RDW 12.3 Plt Count TNP MPV Not Reportable Absolute Nucleated RBC 0.000 Nucleated RBC % (auto) 0.0 Anion Gap 13 Estim Creat Clear Calc 14.2 Estimated GFR 10 POC Glucose 125 H Random Glucose 145 H Fasting Glucose 144 H Calcium 8.4 D Blood Type O Positive Antibody Screen NEGATIVE Crossmatch See Detail Microbiology Microbiology Results: Microbiology 10/27/23 18:46 Urine Culture - Preliminary Urine clean catch - Clean Catch Midstream Culture in progress. Assessment and Plan (1) Generalized seizure: Status: Acute Plan 67F PMH hypertension, chronic diastolic CHF, CKD 4, diabetes, asthma, anemia of chronic disease, GERD presented with witnessed seizure. Acute metabolic encephalopathy due to multiple seizures Continue Ashok Jimenes p.r.n., neuro eval UTI Ceftriaxone, follow-up cultures acute on Chronic anemia of chronic disease transfuse 1 unit, monitor CKD 4 with chronic metabolic acidosis Follow-up nephrology Hypertension Amlodipine Hyperlipidemia Statin Diabetes Basal bolus insulin GERD PPI DVT prophylaxis with heparin subQ Full code reason for continued hospitalization: Ongoing seizures, ams Quality Stroke Does the patient have a stroke diagnosis?: No VTE Prior VTE?: No VTE Risk Level:: Medical - moderate - high VTE Device Contraindication: Treatment Not Indicated VTE Drug Contraindication: N/A - Med Ordered
[2023-10-29 11:49] LABS: Glucose, Whole Blood 172 mg/dL (60-115)
[2023-10-29] MEDS: 0.9 % Sodium Chloride 1,000 ML 50 ML IVCONT (16:08)
[2023-10-29 16:16] LABS: Glucose, Whole Blood 125 mg/dL (60-115)
[2023-10-29] MEDS: cefTRIAXone sodium 1 GM in 0.9 % Sodium Chloride 50 ML IV (20:42)
[2023-10-29] MEDS: traZODone HCL 100 MG TABLET PO (20:43)
[2023-10-29] MEDS: Sucralfate 1 GM TABLET PO (20:43)
[2023-10-29 20:50] LABS: Glucose, Whole Blood 110 mg/dL (60-115)
[2023-10-29] MEDS: levETIRAcetam in NaCl (iso-os) 500 MG/100 ML PIGGYBACK 400 MG IV (21:23)
[2023-10-30] VITALS (7 sets, daily range): BP systolic 147–189; BP diastolic 70–85; PULSE 80–87; RESP 14–20; TEMP 36.6–37.4; O2SAT 95–100
[2023-10-30] MEDS: Heparin Sodium,Porcine 5,000 UNIT/ML VIAL 5000 UNIT SUBCUT ×3 (05:02→21:04)
[2023-10-30] MEDS: Omeprazole 40 MG CAPSULE.DR PO ×2 (06:11→14:53)
[2023-10-30 07:09] LABS: Glucose, Whole Blood 124 mg/dL (60-115)
[2023-10-30] MEDS: Aspirin Enteric Coated 81 MG TABLET.DR PO (08:35)
[2023-10-30] MEDS: amLODIPine Besylate 10 MG TABLET PO (08:35)
[2023-10-30] MEDS: Cholecalciferol (Vitamin D3) 25 MCG TABLET 50 MCG PO (08:36)
[2023-10-30] MEDS: Ferrous Sulfate 324 MG TABLET.DR PO (08:36)
[2023-10-30] MEDS: Sucralfate 1 GM TABLET PO ×4 (08:36→20:09)
[2023-10-30] MEDS: Atorvastatin Calcium 80 MG TABLET PO (08:36)
[2023-10-30 09:35] LABS: Hematocrit 24.1 % (37.0-47.0); Hemoglobin 7.9 g/dl (12.0-16.0); Mean Corpuscular HGB Conc 32.8 g/dl (31.0-35.0); Mean Corpuscular Hemoglobin 31.7 pg (27.0-33.0); Mean Corpuscular Volume 96.8 fL (80.0-98.0); Mean Platelet Volume 12.8 fL (9.4-12.3); Platelet Count 184 X10*3/uL (160-400); Red Blood Count 2.49 X10*6/uL (4.20-5.50); Red Cell Distribution Width 12.2 % (11.0-16.0)
[2023-10-30 09:57] LABS: Anion Gap 15 (12-20); Blood Urea Nitrogen 90 mg/dL (9-16); Calcium 8.8 mg/dL (8.4-10.2); Carbon Dioxide 18 mmol/L (22-29); Chloride 113 mmol/L (96-108); Creatinine Clr Calc Pharmacy 14.5; Estimated Glomerular Filt Rate 11; Glucose Fasting 142 mg/dL (60-99); Glucose Random 142 mg/dL (60-115); Potassium 4.1 mmol/L (3.3-5.1); Sodium 142 mmol/L (135-145)
[2023-10-30 10:50] LABS: Glucose, Whole Blood 136 mg/dL (60-115)
--- NOTE | 2023-10-30 11:15 | P.CDIM_ITS ---
PROVIDER RESPONSE TEXT: To clarify, the appropriate diagnosis supported by the clinical indicators: Obesity Due to excess calories QUERY TEXT: PHYSICIAN'S DOCUMENTATION REQUEST Date of Query: 10/30/2023 10:41 AM EDT Patient Name: Lori Land Admit Date: 10/28/2023 Dear Johnny Engel MD, A review of the medical record indicates additional documentation may be needed. Please review below and update the documentation accordingly. Clinical Indicators: BMI: 40.2 5ft 2in 99.8kg If possible, please provide an associated diagnosis related to the abnormal BMI, such as: Obesity Due to excess calories Obesity Due to other cause Specify the other cause Severe or Morbid Obesity With alveolar hypoventilation Severe or Morbid Obesity Without alveolar hypoventilation Other (explain) Clinically unable to determine (explain) Thank you, Benita Wilkins, CCS, CDIS Use of terms such as suspected, likely, concern for, or probable (associated with a specific diagnosi s that is being evaluated, monitored, or treated as if it exists) are acceptable and can be coded in the inpatient se tting, when documented at the time of discharge. Please use your independent medical judgment in providing your response. THIS QUERY IS PART OF THE PERMANENT MEDICAL RECORD
--- NOTE | 2023-10-30 11:28 | HO.PM.IMPN ---
Subjective Subjective Date of Service: 10/30/23 Review of Systems Review of Systems: Yes Unobtainable due to mental condition Physical Exam Vital Signs: Vital Signs: Last Vital Signs Temp 98.8 F 10/30/23 11:14 Pulse 85 10/30/23 11:14 Resp 20 10/30/23 11:14 BP 189/75 H 10/30/23 11:14 Pulse Ox 100 10/30/23 11:14 O2 Del Method Nasal Cannula 10/30/23 11:14 O2 Flow Rate 2 10/30/23 11:14 BMI result Body Mass Index 40.2 minimally responsive, does swallow food when prompted, recognizes family Objective Data Active Medications Acetaminophen (Acetaminophen 325 Mg Tablet) 650 mg PO Q6H PRN PRN Reason: Pain, Mild (Pain Scale 1-3), fever or headache Last Admin: 10/28/23 14:36 Dose: 650 mg Documented By: ALISON Amlodipine Besylate (Amlodipine Besylate 10 Mg Tablet) 10 mg PO DAILY [facility]; Protocol Last Admin: 10/30/23 08:35 Dose: 10 mg Documented By: ALISON Aspirin (Aspirin Enteric Coated 81 Mg Tablet.) 81 mg PO DAILY [facility] Last Admin: 10/30/23 08:35 Dose: 81 mg Documented By: ALISON Atorvastatin Calcium (Atorvastatin Calcium 80 Mg Tablet) 80 mg PO DAILY [facility] Last Admin: 10/30/23 08:36 Dose: 80 mg Documented By: ALISON Calcium Carbonate (Calcium Carbonate 750 Mg Tab.Chew) 750 mg PO Q4H PRN PRN Reason: Heartburn Ferrous Sulfate (Ferrous Sulfate 324 Mg Tablet.) 324 mg PO DAILY [facility] Last Admin: 10/30/23 08:36 Dose: 324 mg Documented By: ALISON Heparin Sodium (Porcine) (Heparin Sodium,Porcine 5,000 Unit/Ml Vial) 5,000 unit SUBCUT Q8H [facility] Last Admin: 10/30/23 05:02 Dose: 5,000 unit Documented By: SCOTT Ceftriaxone Sodium 1 gm/ (Sodium Chloride) 50 mls @ 100 mls/hr IV Q24H [facility] Last Infusion: 10/29/23 21:12 Dose: Infused Documented By: SCOTT Levetiracetam (Keppra) 500 mg in 100 mls @ 400 mls/hr IV Q24H [facility] Last Infusion: 10/29/23 21:38 Dose: Infused Documented By: SCOTT Lorazepam (Lorazepam 2 Mg/Ml Vial) 2 mg IVPUSH Q4H PRN PRN Reason: Seizures Last Admin: 10/28/23 19:24 Dose: 2 mg Documented By: GARDENIAORRNikia Magnesium Hydroxide (Milk Of Magnesia 30 Ml Oral.Susp) 30 ml PO DAILY PRN PRN Reason: Constipation Melatonin (Melatonin 3 Mg Tablet) 6 mg PO BEDTIME PRN PRN Reason: Insomnia Omeprazole (Omeprazole 40 Mg Capsule.Dr) 40 mg PO BID@0630,1630 [facility] Last Admin: 10/30/23 06:11 Dose: 40 mg Documented By: SCOTT Ondansetron HCl (Ondansetron Hcl 4 Mg/2 Ml Vial) 4 mg IVPUSH Q8H PRN PRN Reason: Nausea and Vomiting Sodium Chloride (0.9 % Sodium Chloride Flush 3 Ml Syringe) 3 ml IVFLUSH QSHIFT [facility] Last Admin: 10/30/23 08:36 Dose: Not Given Documented By: ALISON Non-Admin Reason: IV Running Sodium Zirconium Cyclosilicate (Sodium Zirconium Cyclosilicate 10 Gm Powd.Pack) 10 gm PO MOWEFR [facility] Last Admin: 10/28/23 00:22 Dose: 10 gm Documented By: KRISTI Sucralfate (Sucralfate 1 Gm Tablet) 1 gm PO QID [facility] Last Admin: 10/30/23 08:36 Dose: 1 gm Documented By: ALISON Trazodone HCl (Trazodone Hcl 100 Mg Tablet) 100 mg PO BEDTIME [facility] Last Admin: 10/29/23 20:43 Dose: 100 mg Documented By: SCOTT Vitamin D (Cholecalciferol (Vitamin D3) 25 Mcg Tablet) 50 mcg PO DAILY [facility] Last Admin: 10/30/23 08:36 Dose: 50 mcg Documented By: ALISON Labs 10/30/23 08:42 10/30/23 08:42 Labs: Laboratory Results - last 24 hr 10/29/23 10/29/23 10/29/23 08:30 11:25 16:12 MCV MCH MCHC RDW Plt Count MPV Absolute Nucleated RBC Nucleated RBC % (auto) Anion Gap Estim Creat Clear Calc Estimated GFR POC Glucose 172 H 125 H Random Glucose Fasting Glucose Calcium Blood Type O Positive Antibody Screen NEGATIVE Crossmatch See Detail 10/29/23 10/30/23 10/30/23 20:25 06:58 08:42 MCV 96.8 MCH 31.7 MCHC 32.8 RDW 12.2 Plt Count 184 MPV 12.8 H Absolute Nucleated RBC 0.000 Nucleated RBC % (auto) 0.0 Anion Gap 15 Estim Creat Clear Calc 14.5 Estimated GFR 11 POC Glucose 110 124 H Random Glucose 142 H Fasting Glucose 142 H Calcium 8.8 Blood Type Antibody Screen Crossmatch 10/30/23 10:43 MCV MCH MCHC RDW Plt Count MPV Absolute Nucleated RBC Nucleated RBC % (auto) Anion Gap Estim Creat Clear Calc Estimated GFR POC Glucose 136 H Random Glucose Fasting Glucose Calcium Blood Type Antibody Screen Crossmatch Microbiology Microbiology Results: Microbiology 10/27/23 18:46 Urine Culture - Preliminary Urine clean catch - Clean Catch Midstream Escherichia coli Escherichia coli#2 Assessment and Plan (1) Generalized seizure: Status: Acute Plan 67F PMH hypertension, chronic diastolic CHF, CKD 4, diabetes, asthma, anemia of chronic disease, GERD presented with witnessed seizure. Acute metabolic encephalopathy due to multiple seizures, possible uremic encephalopahty Continue Ashok Jimenes p.r.nRen, neuro eval (baseline - ambulates with walker, independently/partial assists in dressing, eating, toileting) UTI Ceftriaxone, follow-up cultures acute on Chronic anemia of chronic disease transfused 1 unit 10/29/23, improved appropriately CKD 4 with chronic metabolic acidosis Follow-up nephrology Hypertension Amlodipine Hyperlipidemia Statin Diabetes Basal bolus insulin GERD PPI DVT prophylaxis with heparin subQ Full code reason for continued hospitalization: Ongoing seizures, ams Quality Stroke Does the patient have a stroke diagnosis?: No VTE Prior VTE?: No VTE Risk Level:: Medical - moderate - high VTE Device Contraindication: Treatment Not Indicated VTE Drug Contraindication: N/A - Med Ordered
--- NOTE | 2023-10-30 12:07 | P.CNNE_ITS ---
History of Present Illness Data of Consult Service Date: 10/30/23 Primary Care Provider: Lucrecia Teixeira MD HPI Reason for consult: Seizures This is a 67-year-old female with a PMH of ?HTN, HFpEF, CKD 4, insulin- dependent type 2 diabetes, asthma, anemia of chronic disease, and GERD who presents to the ED after 4 brief witnessed seizures with generalized tonic- clonic movements at home and 2 subsequent seizures witnessed by EMS. Patient had a benign tumor removed 3 years ago with seizures noted after surgical procedure. Previously was on unknown antiseizure medication which were then stopped 6 months earlier by her PCP due to worsening kidney function. Pt is obtunded and postictal at time of interview and exam and HPI is obtained primarily through chart and provider review as well as family who is at bedside. Last reported seizure activity was approximately 2-1/2 years ago. Patient apparently has been in her normal state of health without recent illness up until this morning at 07:30 when seizure activity was witnessed by family.? Daughter reports patient has been primarily asleep and nonverbal since seizure activity and subsequent treatment with Ativan. H&H 7.8/23.8, BUN 121, creatinine 4.98, and serial troponins 32.7 and 30.2. UA consistent with acute UTI. Tested negative for flu, RSV, and COVID. CXR showed no acute cardiopulmonary disease. CT?of head showed no acute intracranial abnormality but revealed s/p left frontal craniotomy defect. . Pt was treated with lorazepam 2 mg IV x2 doses and Keppra 1500 mg IV. [facility] Past Medical History Medical History CHF (congestive heart failure) Anemia Acute kidney injury Brain tumor (benign) Lower extremity edema Pneumonia Asthma Pulmonary nodule HLD (hyperlipidemia) CKD (chronic kidney disease) stage 3, GFR 30-59 ml/min Seizure Acute hypoxemic respiratory failure due to COVID-19 COVID-19 Kidney stone Depression Gastritis Diabetes Family History Family History Father CAD (coronary artery disease) Brother Lung cancer Sister Kidney stone Surgical History Surgical History H/O lithotripsy H/O ureteroscopy H/O cystoscopy S/P ureteral stent placement History of cholecystectomy H/O hernia repair Social History Social History Household Members: Children Housing: Apartment Do you presently have visiting nurse or other home services: Yes ([employer] 4hrs/day everyday) Alcohol intake: former Comment: pt sleeping at this time Patient Tobacco Use Status: Never used Tobacco Smoked in Last 30 Days: No e-Cigarette/Vaping Use: Never Used Use of substances other than those prescribed or required for medical reasons: No Currently Displaying Signs/Symptoms of Drug Intoxication Withdrawal: No Have you been hit, kicked, punched, or otherwise hurt by someone within the past year? If so, by whom?: No Do you feel safe in your current relationship?: No Current Relationship Is there a partner from a previous relationship who is making you feel unsafe now?: No Are you made to feel afraid or neglected: No Advance Directives: Yes Advance Directives on File: Yes Advance Directives Date on File: 12/20/21 Do you have a plan to hurt others: No Plan Recently lost weight without trying: No Eating poorly because of decreased appetite: No Nutrition Risks: On aspiration precautions Patient : No : No service: No Current occupational status: unemployed Meds Allergies Allergy/AdvReac Type Severity Reaction Status Date / Time No Known Allergies Allergy Verified 10/27/23 14:41 Active Medications: Current Medications Acetaminophen (Acetaminophen 325 Mg Tablet) 650 mg PO Q6H PRN PRN Reason: Pain, Mild (Pain Scale 1-3), fever or headache Last Admin: 10/28/23 14:36 Dose: 650 mg Amlodipine Besylate (Amlodipine Besylate 10 Mg Tablet) 10 mg PO DAILY [facility]; Protocol Last Admin: 10/30/23 08:35 Dose: 10 mg Aspirin (Aspirin Enteric Coated 81 Mg Tablet.) 81 mg PO DAILY [facility] Last Admin: 10/30/23 08:35 Dose: 81 mg Atorvastatin Calcium (Atorvastatin Calcium 80 Mg Tablet) 80 mg PO DAILY [facility] Last Admin: 10/30/23 08:36 Dose: 80 mg Calcium Carbonate (Calcium Carbonate 750 Mg Tab.Chew) 750 mg PO Q4H PRN PRN Reason: Heartburn Ferrous Sulfate (Ferrous Sulfate 324 Mg Tablet.) 324 mg PO DAILY [facility] Last Admin: 10/30/23 08:36 Dose: 324 mg Heparin Sodium (Porcine) (Heparin Sodium,Porcine 5,000 Unit/Ml Vial) 5,000 unit SUBCUT Q8H [facility] Last Admin: 10/30/23 05:02 Dose: 5,000 unit Ceftriaxone Sodium 1 gm/ (Sodium Chloride) 50 mls @ 100 mls/hr IV Q24H [facility] Last Infusion: 10/29/23 21:12 Dose: Infused Levetiracetam (Keppra) 500 mg in 100 mls @ 400 mls/hr IV Q24H [facility] Last Infusion: 10/29/23 21:38 Dose: Infused Lorazepam (Lorazepam 2 Mg/Ml Vial) 2 mg IVPUSH Q4H PRN PRN Reason: Seizures Last Admin: 10/28/23 19:24 Dose: 2 mg Magnesium Hydroxide (Milk Of Magnesia 30 Ml Oral.Susp) 30 ml PO DAILY PRN PRN Reason: Constipation Melatonin (Melatonin 3 Mg Tablet) 6 mg PO BEDTIME PRN PRN Reason: Insomnia Omeprazole (Omeprazole 40 Mg Capsule.Dr) 40 mg PO BID@0630,1630 [facility] Last Admin: 10/30/23 06:11 Dose: 40 mg Ondansetron HCl (Ondansetron Hcl 4 Mg/2 Ml Vial) 4 mg IVPUSH Q8H PRN PRN Reason: Nausea and Vomiting Sodium Chloride (0.9 % Sodium Chloride Flush 3 Ml Syringe) 3 ml IVFLUSH QSHIFT [facility] Last Admin: 10/30/23 08:36 Dose: Not Given Sodium Zirconium Cyclosilicate (Sodium Zirconium Cyclosilicate 10 Gm Powd.Pack) 10 gm PO MOWEFR [facility] Last Admin: 10/28/23 00:22 Dose: 10 gm Sucralfate (Sucralfate 1 Gm Tablet) 1 gm PO QID [facility] Last Admin: 10/30/23 08:36 Dose: 1 gm Trazodone HCl (Trazodone Hcl 100 Mg Tablet) 100 mg PO BEDTIME [facility] Last Admin: 10/29/23 20:43 Dose: 100 mg Vitamin D (Cholecalciferol (Vitamin D3) 25 Mcg Tablet) 50 mcg PO DAILY [facility] Last Admin: 10/30/23 08:36 Dose: 50 mcg Home Medications ?Medication ?Instructions ?Recorded ?Confirmed ?Last Taken ?Type blood sugar diagnostic (Jamie 03/28/20 09/09/22 Unknown History Lite Strips) blood-glucose meter (FreeStyle 03/28/20 09/09/22 Unknown History [place] Lite kit) lancets 28 gauge (FreeStyle 03/28/20 09/09/22 Unknown History Lancets) omeprazole 40 mg capsule,delayed 40 mg PO BID@0630,1630 10/02/21 10/27/23 10/26/23 History release blood pressure test kit-large #1 ea 10/12/21 09/09/22 Unknown History atorvastatin 80 mg tablet 1 tab PO DAILY 12/20/21 10/27/23 10/26/23 History nebulizers 01/20/22 09/09/22 Unknown History amlodipine 10 mg tablet 10 mg PO DAILY 05/29/22 10/27/23 10/26/23 History aspirin 81 mg tablet,delayed 81 mg PO DAILY 05/29/22 10/27/23 10/26/23 History release losartan 100 mg tablet 100 mg PO DAILY 05/29/22 10/27/23 10/26/23 History sucralfate 1 gram tablet 1 g PO QID 05/29/22 10/27/23 10/26/23 History lancets 33 gauge (TRUEplus Lancets) #100 ea 06/07/22 09/09/22 Unknown History trazodone 50 mg tablet 100 mg PO BEDTIME 06/07/22 10/27/23 10/26/23 History cholecalciferol (vitamin D3) 50 50 mcg PO DAILY 11/24/22 10/27/23 10/26/23 History mcg (2,000 unit) tablet ferrous gluconate 324 mg (38 mg 324 mg PO DAILY 11/24/22 10/27/23 10/26/23 History iron) tablet furosemide 40 mg tablet 40 mg PO BID 11/24/22 10/27/23 10/26/23 History insulin aspart 6 - 8 unit subcut TID 10/27/23 10/27/23 10/26/23 History (niacinamide)(U-100) 100 unit/mL(3 mL) subcutaneous pen (Fiasp FlexTouch U-100 Insulin) insulin glargine 100 unit/mL (3 30 unit subcut BID 10/27/23 10/27/23 10/26/23 History mL) subcutaneous pen (Basaglar KwikPen U-100 Insulin) Physical Exam 2 Vital Signs: Vital Signs: Last Vital Signs Temp 98.8 F 10/30/23 11:14 Pulse 85 10/30/23 11:14 Resp 20 10/30/23 11:14 BP 189/75 H 10/30/23 11:14 Pulse Ox 100 10/30/23 11:14 O2 Del Method Nasal Cannula 10/30/23 11:14 O2 Flow Rate 2 10/30/23 11:14 BMI result Body Mass Index 40.2 Neuro: Other: She is arousable but poorly responsive. She follows one-step commands at times but does not verbalize. There are times where she turns her head to the right with eye deviation to the right. She protrudes her tongue to command. She has a good application development director on the left and moves the left side to command specially the upper extremity but is flaccid in the right upper extremity. Neck is supple Results Labs 10/30/23 08:42 10/30/23 08:42 Labs: Short CBC 10/30/23 Range/Units 08:42 WBC 15.0 H (4.8-10.8) X10*3/uL Hgb 7.9 L D (12.0-16.0) g/dl Hct 24.1 L D (37.0-47.0) % Plt Count 184 (160-400) X10*3/uL BMP 10/30/23 08:42 Sodium 142 Potassium 4.1 Chloride 113 H Carbon Dioxide 18 L BUN 90 H Creatinine 4.21 H* Calcium 8.8 Microbiology Microbiology Results: Microbiology 10/27/23 18:46 Urine clean catch - Clean Catch Midstream Urine Culture - Preliminary Escherichia coli Escherichia coli#2 Assessment and Plan (1) Generalized seizure: Status: Acute Recurrent seizures in her history with previous seizures related to a brain lesion and details of which are not available. CT scan shows no acute findings. Recommendations: EEG to rule out subclinical status epilepticus. Change Keppra dose to 1.5 g IV twice a day. Noncontrast MRI of the brain Procedures Date of Service Date of Service: 10/30/23
--- NOTE | 2023-10-30 13:39 | MHC.CM.PN ---
EMR reviewed and per MD rounds, pt is not medically cleared for discharge due to management of seizures and altered mental status.
[2023-10-30] MEDS: 0.9 % Sodium Chloride Flush 3 ML SYRINGE IVFLUSH ×2 (14:54→23:10)
--- NOTE | 2023-10-30 15:02 | PM.CNNEP ---
History of Present Illness Reason for Consult Consult date: 10/30/23 Chief Complaint Chief complaint: Breakthrough seizures History of Present Illness Narrative: RTANE consulted Adv CKD 4/5 followed as outp now adm with SZ, severe anmeia and MICHAEL on asdv CKD ' Full note dictated and case d/w with Dr Maren PAYNE Past Medical History Medical History CHF (congestive heart failure) Anemia Acute kidney injury Brain tumor (benign) Lower extremity edema Pneumonia Asthma Pulmonary nodule HLD (hyperlipidemia) CKD (chronic kidney disease) stage 3, GFR 30-59 ml/min Seizure Acute hypoxemic respiratory failure due to COVID-19 COVID-19 Kidney stone Depression Gastritis Diabetes Family History Family History Father CAD (coronary artery disease) Brother Lung cancer Sister Kidney stone Surgical History Surgical History H/O lithotripsy H/O ureteroscopy H/O cystoscopy S/P ureteral stent placement History of cholecystectomy H/O hernia repair Social History Social History Household Members: Children Housing: Apartment Do you presently have visiting nurse or other home services: Yes ([employer] 4hrs/day everyday) Alcohol intake: former Comment: pt sleeping at this time Patient Tobacco Use Status: Never used Tobacco Smoked in Last 30 Days: No e-Cigarette/Vaping Use: Never Used Use of substances other than those prescribed or required for medical reasons: No Currently Displaying Signs/Symptoms of Drug Intoxication Withdrawal: No Have you been hit, kicked, punched, or otherwise hurt by someone within the past year? If so, by whom?: No Do you feel safe in your current relationship?: No Current Relationship Is there a partner from a previous relationship who is making you feel unsafe now?: No Are you made to feel afraid or neglected: No Advance Directives: Yes Advance Directives on File: Yes Advance Directives Date on File: 12/20/21 Do you have a plan to hurt others: No Plan Recently lost weight without trying: No Eating poorly because of decreased appetite: No Nutrition Risks: On aspiration precautions Patient : No : No service: No Current occupational status: unemployed Meds Allergies Allergy/AdvReac Type Severity Reaction Status Date / Time No Known Allergies Allergy Verified 10/27/23 14:41 Active Medications: Current Medications Acetaminophen (Acetaminophen 325 Mg Tablet) 650 mg PO Q6H PRN PRN Reason: Pain, Mild (Pain Scale 1-3), fever or headache Last Admin: 10/28/23 14:36 Dose: 650 mg Amlodipine Besylate (Amlodipine Besylate 10 Mg Tablet) 10 mg PO DAILY [facility]; Protocol Last Admin: 10/30/23 08:35 Dose: 10 mg Aspirin (Aspirin Enteric Coated 81 Mg Tablet.) 81 mg PO DAILY [facility] Last Admin: 10/30/23 08:35 Dose: 81 mg Atorvastatin Calcium (Atorvastatin Calcium 80 Mg Tablet) 80 mg PO DAILY [facility] Last Admin: 10/30/23 08:36 Dose: 80 mg Calcium Carbonate (Calcium Carbonate 750 Mg Tab.Chew) 750 mg PO Q4H PRN PRN Reason: Heartburn Ferrous Sulfate (Ferrous Sulfate 324 Mg Tablet.) 324 mg PO DAILY [facility] Last Admin: 10/30/23 08:36 Dose: 324 mg Heparin Sodium (Porcine) (Heparin Sodium,Porcine 5,000 Unit/Ml Vial) 5,000 unit SUBCUT Q8H [facility] Last Admin: 10/30/23 14:53 Dose: 5,000 unit Ceftriaxone Sodium 1 gm/ (Sodium Chloride) 50 mls @ 100 mls/hr IV Q24H [facility] Last Infusion: 10/29/23 21:12 Dose: Infused Levetiracetam (Keppra) 500 mg in 100 mls @ 400 mls/hr IV Q12H [facility] Lorazepam (Lorazepam 2 Mg/Ml Vial) 2 mg IVPUSH Q4H PRN PRN Reason: Seizures Last Admin: 10/28/23 19:24 Dose: 2 mg Magnesium Hydroxide (Milk Of Magnesia 30 Ml Oral.Susp) 30 ml PO DAILY PRN PRN Reason: Constipation Melatonin (Melatonin 3 Mg Tablet) 6 mg PO BEDTIME PRN PRN Reason: Insomnia Omeprazole (Omeprazole 40 Mg Capsule.) 40 mg PO BID@0630,1630 [facility] Last Admin: 10/30/23 14:53 Dose: 40 mg Ondansetron HCl (Ondansetron Hcl 4 Mg/2 Ml Vial) 4 mg IVPUSH Q8H PRN PRN Reason: Nausea and Vomiting Sodium Chloride (0.9 % Sodium Chloride Flush 3 Ml Syringe) 3 ml IVFLUSH QSHIFT [facility] Last Admin: 10/30/23 14:54 Dose: 3 ml Sodium Zirconium Cyclosilicate (Sodium Zirconium Cyclosilicate 10 Gm Powd.Pack) 10 gm PO MOWEFR [facility] Last Admin: 10/28/23 00:22 Dose: 10 gm Sucralfate (Sucralfate 1 Gm Tablet) 1 gm PO QID [facility] Last Admin: 10/30/23 14:53 Dose: 1 gm Trazodone HCl (Trazodone Hcl 100 Mg Tablet) 100 mg PO BEDTIME [facility] Last Admin: 10/29/23 20:43 Dose: 100 mg Vitamin D (Cholecalciferol (Vitamin D3) 25 Mcg Tablet) 50 mcg PO DAILY [facility] Last Admin: 10/30/23 08:36 Dose: 50 mcg Home Medications ?Medication ?Instructions ?Recorded ?Confirmed ?Last Taken ?Type blood sugar diagnostic (FreeStyle 03/28/20 09/09/22 Unknown History Lite Strips) blood-glucose meter (FreeStyle 03/28/20 09/09/22 Unknown History [place] Lite kit) lancets 28 gauge (FreeStyle 03/28/20 09/09/22 Unknown History Lancets) omeprazole 40 mg capsule,delayed 40 mg PO BID@0630,1630 10/02/21 10/27/23 10/26/23 History release blood pressure test kit-large #1 ea 10/12/21 09/09/22 Unknown History atorvastatin 80 mg tablet 1 tab PO DAILY 12/20/21 10/27/23 10/26/23 History nebulizers 01/20/22 09/09/22 Unknown History amlodipine 10 mg tablet 10 mg PO DAILY 05/29/22 10/27/23 10/26/23 History aspirin 81 mg tablet,delayed 81 mg PO DAILY 05/29/22 10/27/23 10/26/23 History release losartan 100 mg tablet 100 mg PO DAILY 05/29/22 10/27/23 10/26/23 History sucralfate 1 gram tablet 1 g PO QID 05/29/22 10/27/23 10/26/23 History lancets 33 gauge (TRUEplus Lancets) #100 ea 06/07/22 09/09/22 Unknown History trazodone 50 mg tablet 100 mg PO BEDTIME 06/07/22 10/27/23 10/26/23 History cholecalciferol (vitamin D3) 50 50 mcg PO DAILY 11/24/22 10/27/23 10/26/23 History mcg (2,000 unit) tablet ferrous gluconate 324 mg (38 mg 324 mg PO DAILY 11/24/22 10/27/23 10/26/23 History iron) tablet furosemide 40 mg tablet 40 mg PO BID 11/24/22 10/27/23 10/26/23 History insulin aspart 6 - 8 unit subcut TID 10/27/23 10/27/23 10/26/23 History (niacinamide)(U-100) 100 unit/mL(3 mL) subcutaneous pen (Fiasp FlexTouch U-100 Insulin) insulin glargine 100 unit/mL (3 30 unit subcut BID 10/27/23 10/27/23 10/26/23 History mL) subcutaneous pen (Basaglar KwikPen U-100 Insulin) Physical Exam Vital Signs: Last Vital Signs Temp 98.8 F 10/30/23 11:14 Pulse 85 10/30/23 11:14 Resp 20 10/30/23 11:14 BP 189/75 H 10/30/23 11:14 Pulse Ox 100 10/30/23 11:14 O2 Del Method Nasal Cannula 10/30/23 11:14 O2 Flow Rate 2 10/30/23 11:14 BMI result Body Mass Index 40.2 Results Lab Results 10/30/23 08:42 10/30/23 08:42 Lab results: Chemistry 10/27/23 10/28/23 10/29/23 15:32 06:11 05:47 Sodium 142 144 143 Potassium 4.6 D 4.2 3.9 Carbon Dioxide 18 L 16 L 18 L BUN 121 H 116 H 102 H Creatinine 4.98 H* 4.46 H* 4.30 H* Calcium 9.5 9.3 8.4 D 10/30/23 08:42 Sodium 142 Potassium 4.1 Carbon Dioxide 18 L BUN 90 H Creatinine 4.21 H* Calcium 8.8 Hematology 10/27/23 10/28/23 10/29/23 15:32 06:11 05:47 WBC 16.6 H 15.3 H 13.3 H Hgb 7.8 L 7.7 L 6.3 L* Plt Count Not Reportable TNP TNP 10/30/23 08:42 WBC 15.0 H Hgb 7.9 L D Plt Count 184 Urinalysis 10/27/23 18:31 Urine Color Yellow Urine Appearance Cloudy Urine pH 5.5 Ur Specific [place] 1.015 Urine Protein >=1000 (4+) H Urine Glucose (UA) 100 H Urine Ketones Negative Urine Blood Small (1+) H Urine Nitrite Negative Ur Leukocyte Esterase Small (1+) H Urine RBC 0-2 Urine WBC 21-50 H Ur Squamous Epith Cells 0-2 Hyaline Casts 6-10 Procedures Date of Service Date of Service: 10/30/23
[2023-10-30 15:52] LABS: Glucose, Whole Blood 123 mg/dL (60-115)
[2023-10-30] MEDS: levETIRAcetam in NaCl (iso-os) 500 MG/100 ML PIGGYBACK 400 MG IV (16:20)
[2023-10-30 17:07] LABS: Iron 45 mcg/dL (30-160); Percent Iron Saturation 24 % (15-50); Phosphorus 4.8 mg/dL (2.7-4.5); Total Iron Binding Capacity 186 mcg/dL (228-428); Unsaturated Iron Binding 141 ug/dL
[2023-10-30 17:13] LABS: Parathyroid Hormone Intact 157.9 pg/mL (8.7-77.1)
[2023-10-30] MEDS: cefTRIAXone sodium 1 GM in 0.9 % Sodium Chloride 50 ML IV (20:09)
[2023-10-30] MEDS: traZODone HCL 100 MG TABLET PO (20:09)
[2023-10-30 20:54] LABS: Glucose, Whole Blood 176 mg/dL (60-115)
[2023-10-30] MEDS: Sodium Zirconium Cyclosilicate 10 GM POWD.PACK PO (23:10)
[2023-10-31] VITALS (18 sets, daily range): BP systolic 133–194; BP diastolic 52–81; PULSE 71–116; RESP 13–22; TEMP 36.8–37.7; O2SAT 96–100
--- NOTE | 2023-10-31 | EEG_ITS ---
FINDINGS: The waking background activity consists of low voltage fast frequencies seen diffusely intermixed with an abundance of muscle artifacts and some left mid temporal shock transients. Pacing is somewhat limited. At one point, the patient goes into generalized epileptiform discharges at 2 hertz polyspike wave configuration that lasts for about 15 seconds followed by postictal slowing and continued sharp waves occasionally from the left hemisphere. Abundance of movement and electrode artifacts are seen. IMPRESSION: This is an abnormal EEG consistent with generalized seizures during the seizure discharge, possibly originating the left hemisphere, although the EEG tracing was technically compromised. Therefore this is not determined with certainty. Followup EEG is recommended. MD AUDI Valencia/SILVIA / [id number]
[2023-10-31] MEDS: levETIRAcetam in NaCl (iso-os) 500 MG/100 ML PIGGYBACK 400 MG IV ×2 (02:12→16:32)
[2023-10-31] MEDS: Omeprazole 40 MG CAPSULE.DR PO (05:31)
[2023-10-31] MEDS: Heparin Sodium,Porcine 5,000 UNIT/ML VIAL 5000 UNIT SUBCUT ×3 (05:31→21:10)
[2023-10-31] MEDS: LORazepam 2 MG/ML VIAL IVPUSH (07:00)
[2023-10-31 07:53] LABS: Glucose, Whole Blood 136 mg/dL (60-115)
[2023-10-31 08:23] LABS: Hematocrit 24.7 % (37.0-47.0); Hemoglobin 8.1 g/dl (12.0-16.0); Mean Corpuscular HGB Conc 32.8 g/dl (31.0-35.0); Mean Corpuscular Hemoglobin 32.1 pg (27.0-33.0); PLT CLUMP 1; Red Blood Count 2.52 X10*6/uL (4.20-5.50); Red Cell Distribution Width 12.2 % (11.0-16.0)
[2023-10-31 08:32] LABS: Platelet Count 233 X10*3/uL (160-400)
[2023-10-31 08:34] LABS: Anion Gap 16 (12-20); Blood Urea Nitrogen 83 mg/dL (9-16); Calcium 9.2 mg/dL (8.4-10.2); Carbon Dioxide 14 mmol/L (22-29); Chloride 115 mmol/L (96-108); Creatinine Clr Calc Pharmacy 14.5; Estimated Glomerular Filt Rate 11; Glucose Fasting 136 mg/dL (60-99); Potassium 4.3 mmol/L (3.3-5.1); Sodium 141 mmol/L (135-145)
[2023-10-31] MEDS: 0.9 % Sodium Chloride Flush 3 ML SYRINGE IVFLUSH ×3 (08:45→17:06)
--- NOTE | 2023-10-31 08:55 | HO.PM.IMPN ---
Subjective Subjective Date of Service: 10/31/23 Review of Systems Review of Systems: Yes Unobtainable due to mental condition Physical Exam Vital Signs: Vital Signs: Last Vital Signs Temp 98.4 F 10/31/23 07:32 Pulse 99 10/31/23 07:32 Resp 17 10/31/23 07:32 BP 180/81 H 10/31/23 07:32 Pulse Ox 100 10/31/23 07:32 O2 Del Method Nasal Cannula 10/31/23 07:32 O2 Flow Rate 2 10/31/23 07:32 BMI result Body Mass Index 40.2 active seizure, myoclonic jerks Objective Data Active Medications Acetaminophen (Acetaminophen 325 Mg Tablet) 650 mg PO Q6H PRN PRN Reason: Pain, Mild (Pain Scale 1-3), fever or headache Last Admin: 10/28/23 14:36 Dose: 650 mg Documented By: ALISON Amlodipine Besylate (Amlodipine Besylate 10 Mg Tablet) 10 mg PO DAILY [facility]; Protocol Last Admin: 10/30/23 08:35 Dose: 10 mg Documented By: ALISON Aspirin (Aspirin Enteric Coated 81 Mg Tablet.) 81 mg PO DAILY [facility] Last Admin: 10/30/23 08:35 Dose: 81 mg Documented By: ALISON Atorvastatin Calcium (Atorvastatin Calcium 80 Mg Tablet) 80 mg PO DAILY [facility] Last Admin: 10/30/23 08:36 Dose: 80 mg Documented By: ALISON Calcium Carbonate (Calcium Carbonate 750 Mg Tab.Chew) 750 mg PO Q4H PRN PRN Reason: Heartburn Ferrous Sulfate (Ferrous Sulfate 324 Mg Tablet.) 324 mg PO DAILY [facility] Last Admin: 10/30/23 08:36 Dose: 324 mg Documented By: ALISON Heparin Sodium (Porcine) (Heparin Sodium,Porcine 5,000 Unit/Ml Vial) 5,000 unit SUBCUT Q8H [facility] Last Admin: 10/31/23 05:31 Dose: 5,000 unit Documented By: SCOTT Hydralazine HCl (Hydralazine Hcl 20 Mg/Ml Vial) 10 mg IVPUSH Q6H PRN; Protocol PRN Reason: sbp > 180 Ceftriaxone Sodium 1 gm/ (Sodium Chloride) 50 mls @ 100 mls/hr IV Q24H [facility] Last Infusion: 10/30/23 20:39 Dose: Infused Documented By: SCOTT Levetiracetam (Keppra) 500 mg in 100 mls @ 400 mls/hr IV Q12H [facility] Last Infusion: 10/31/23 02:27 Dose: Infused Documented By: SCOTT Valproic Acid 1,000 mg/ (Dextrose) 60 mls @ 60 mls/hr IV Q12H [facility] Lorazepam (Lorazepam 2 Mg/Ml Vial) 2 mg IVPUSH Q4H PRN PRN Reason: Seizures Last Admin: 10/31/23 07:00 Dose: 2 mg Documented By: EFRAIN Magnesium Hydroxide (Milk Of Magnesia 30 Ml Oral.Susp) 30 ml PO DAILY PRN PRN Reason: Constipation Melatonin (Melatonin 3 Mg Tablet) 6 mg PO BEDTIME PRN PRN Reason: Insomnia Omeprazole (Omeprazole 40 Mg Capsule.Dr) 40 mg PO BID@0630,1630 [facility] Last Admin: 10/31/23 05:31 Dose: 40 mg Documented By: SCOTT Ondansetron HCl (Ondansetron Hcl 4 Mg/2 Ml Vial) 4 mg IVPUSH Q8H PRN PRN Reason: Nausea and Vomiting Sodium Chloride (0.9 % Sodium Chloride Flush 3 Ml Syringe) 3 ml IVFLUSH QSHIFT [facility] Last Admin: 10/31/23 08:45 Dose: 3 ml Documented By: EFRAIN Sodium Zirconium Cyclosilicate (Sodium Zirconium Cyclosilicate 10 Gm Powd.Pack) 10 gm PO MOWEFR [facility] Last Admin: 10/30/23 23:10 Dose: 10 gm Documented By: SCOTT Sucralfate (Sucralfate 1 Gm Tablet) 1 gm PO QID [facility] Last Admin: 10/30/23 20:09 Dose: 1 gm Documented By: SCOTT Trazodone HCl (Trazodone Hcl 100 Mg Tablet) 100 mg PO BEDTIME [facility] Last Admin: 10/30/23 20:09 Dose: 100 mg Documented By: SCOTT Vitamin D (Cholecalciferol (Vitamin D3) 25 Mcg Tablet) 50 mcg PO DAILY [facility] Last Admin: 10/30/23 08:36 Dose: 50 mcg Documented By: ALISON Labs 10/31/23 07:09 10/31/23 07:09 Labs: Laboratory Results - last 24 hr 10/30/23 10/30/23 10/30/23 08:42 10:43 15:49 MCV 96.8 MCH 31.7 MCHC 32.8 RDW 12.2 Plt Count 184 MPV 12.8 H Absolute Nucleated RBC 0.000 Nucleated RBC % (auto) 0.0 Anion Gap 15 Estim Creat Clear Calc 14.5 Estimated GFR 11 POC Glucose 136 H 123 H Random Glucose 142 H Fasting Glucose 142 H Calcium 8.8 Phosphorus Iron TIBC % Saturation Unsat Iron Binding PTH Intact 10/30/23 10/30/23 10/31/23 16:24 20:40 07:09 MCV 98.0 MCH 32.1 MCHC 32.8 RDW 12.2 Plt Count 233 D MPV 13.0 H Absolute Nucleated RBC 0.000 Nucleated RBC % (auto) 0.0 Anion Gap 16 Estim Creat Clear Calc 14.5 Estimated GFR 11 POC Glucose 176 H Random Glucose Fasting Glucose 136 H Calcium 9.2 Phosphorus 4.8 H Iron 45 TIBC 186 L % Saturation 24 Unsat Iron Binding 141 PTH Intact 157.9 H 10/31/23 07:47 MCV MCH MCHC RDW Plt Count MPV Absolute Nucleated RBC Nucleated RBC % (auto) Anion Gap Estim Creat Clear Calc Estimated GFR POC Glucose 136 H Random Glucose Fasting Glucose Calcium Phosphorus Iron TIBC % Saturation Unsat Iron Binding PTH Intact Microbiology Microbiology Results: Microbiology 10/27/23 18:46 Urine Culture - Preliminary Urine clean catch - Clean Catch Midstream Escherichia coli Escherichia coli#2 Assessment and Plan (1) Generalized seizure: Status: Acute Plan 67F PMH hypertension, chronic diastolic CHF, CKD 4, diabetes, asthma, anemia of chronic disease, GERD presented with witnessed seizure. Acute metabolic encephalopathy due to multiple seizures, possible uremic encephalopahty d/w neuro, frequent ongoing seizures continue keppra, adding depakote, follow up EEG, MRI (baseline - ambulates with walker, independently/partial assists in dressing, eating, toileting) UTI Ceftriaxone, follow-up cultures acute on Chronic anemia of chronic disease transfused 1 unit 10/29/23, improved appropriately CKD 4 with chronic metabolic acidosis Follow-up nephrology, no urgent need for hd now Hypertension Amlodipine Hyperlipidemia Statin Diabetes Basal bolus insulin GERD PPI DVT prophylaxis with heparin subQ Full code reason for continued hospitalization: Ongoing seizures, ams Quality Stroke Does the patient have a stroke diagnosis?: No VTE Prior VTE?: No VTE Risk Level:: Medical - moderate - high VTE Device Contraindication: Treatment Not Indicated VTE Drug Contraindication: N/A - Med Ordered
[2023-10-31] MEDS: Valproic Acid (as Sodium Salt) 1,000 MG in Dextrose 5 % 50 ML 60 MG IV ×2 (09:26→21:26)
--- NOTE | 2023-10-31 11:09 | W.PM.CCCN ---
History of Present Illness Data of Consult Service Date: 10/31/23 Primary Care Provider: Lucrecia Teixeira MD [facility] 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 She is admitted to the hospital with multiple episodes of seizures on 10/27/2023 in the setting of ESBL urinary tract infection. She was admitted to the floor but due to uncontrolled seizures and status epilepticus she is being transferred to the ICU. Her CT brain is normal, ED showed subclinical seizures and status epilepticus. Review of Systems Review of Systems: Unable to obtain as patient is in status epilepticus [facility] Past Medical History Medical History CHF (congestive heart failure) Anemia Acute kidney injury Brain tumor (benign) Lower extremity edema Pneumonia Asthma Pulmonary nodule HLD (hyperlipidemia) CKD (chronic kidney disease) stage 3, GFR 30-59 ml/min Seizure Acute hypoxemic respiratory failure due to COVID-19 COVID-19 Kidney stone Depression Gastritis Diabetes Family History Family History Father CAD (coronary artery disease) Brother Lung cancer Sister Kidney stone Surgical History Surgical History H/O lithotripsy H/O ureteroscopy H/O cystoscopy S/P ureteral stent placement History of cholecystectomy H/O hernia repair Social History Social History Household Members: Children Housing: Apartment Do you presently have visiting nurse or other home services: Yes ([employer] 4hrs/day everyday) Alcohol intake: former Comment: pt sleeping at this time Patient Tobacco Use Status: Never used Tobacco Smoked in Last 30 Days: No e-Cigarette/Vaping Use: Never Used Use of substances other than those prescribed or required for medical reasons: No Currently Displaying Signs/Symptoms of Drug Intoxication Withdrawal: No Have you been hit, kicked, punched, or otherwise hurt by someone within the past year? If so, by whom?: No Do you feel safe in your current relationship?: No Current Relationship Is there a partner from a previous relationship who is making you feel unsafe now?: No Are you made to feel afraid or neglected: No Advance Directives: Yes Advance Directives on File: Yes Advance Directives Date on File: 12/20/21 Do you have a plan to hurt others: No Plan Recently lost weight without trying: No Eating poorly because of decreased appetite: No Nutrition Risks: On aspiration precautions Patient : No : No service: No Current occupational status: unemployed Meds Allergies Allergy/AdvReac Type Severity Reaction Status Date / Time Egg Derived Allergy Unknown Verified 10/31/23 19:05 Active Medications: Current Medications Acetaminophen (Acetaminophen 325 Mg Tablet) 650 mg PO Q6H PRN PRN Reason: Pain, Mild (Pain Scale 1-3), fever or headache Last Admin: 10/28/23 14:36 Dose: 650 mg Amlodipine Besylate (Amlodipine Besylate 10 Mg Tablet) 10 mg PO DAILY [facility]; Protocol Last Admin: 10/31/23 09:28 Dose: Not Given Aspirin (Aspirin Enteric Coated 81 Mg Tablet.) 81 mg PO DAILY [facility] Last Admin: 10/31/23 09:28 Dose: Not Given Atorvastatin Calcium (Atorvastatin Calcium 80 Mg Tablet) 80 mg PO DAILY [facility] Last Admin: 10/31/23 09:28 Dose: Not Given Calcium Carbonate (Calcium Carbonate 750 Mg Tab.Chew) 750 mg PO Q4H PRN PRN Reason: Heartburn Ferrous Sulfate (Ferrous Sulfate 324 Mg Tablet.) 324 mg PO DAILY [facility] Last Admin: 10/31/23 09:27 Dose: Not Given Heparin Sodium (Porcine) (Heparin Sodium,Porcine 5,000 Unit/Ml Vial) 5,000 unit SUBCUT Q8H [facility] Last Admin: 10/31/23 05:31 Dose: 5,000 unit Hydralazine HCl (Hydralazine Hcl 20 Mg/Ml Vial) 10 mg IVPUSH Q6H PRN; Protocol PRN Reason: sbp > 180 Ceftriaxone Sodium 1 gm/ (Sodium Chloride) 50 mls @ 100 mls/hr IV Q24H [facility] Last Infusion: 10/30/23 20:39 Dose: Infused Levetiracetam (Keppra) 500 mg in 100 mls @ 400 mls/hr IV Q12H [facility] Last Infusion: 10/31/23 02:27 Dose: Infused Valproic Acid 1,000 mg/ (Dextrose) 60 mls @ 60 mls/hr IV Q12H [facility] Last Admin: 10/31/23 09:26 Dose: 60 mls/hr Lorazepam (Lorazepam 2 Mg/Ml Vial) 2 mg IVPUSH Q4H PRN PRN Reason: Seizures Last Admin: 10/31/23 07:00 Dose: 2 mg Magnesium Hydroxide (Milk Of Magnesia 30 Ml Oral.Susp) 30 ml PO DAILY PRN PRN Reason: Constipation Melatonin (Melatonin 3 Mg Tablet) 6 mg PO BEDTIME PRN PRN Reason: Insomnia Omeprazole (Omeprazole 40 Mg Capsule.Dr) 40 mg PO BID@0630,1630 [facility] Last Admin: 10/31/23 05:31 Dose: 40 mg Ondansetron HCl (Ondansetron Hcl 4 Mg/2 Ml Vial) 4 mg IVPUSH Q8H PRN PRN Reason: Nausea and Vomiting Sodium Bicarbonate (Sodium Bicarbonate 650 Mg Tablet) 650 mg PO QID [facility] Sodium Chloride (0.9 % Sodium Chloride Flush 3 Ml Syringe) 3 ml IVFLUSH QSHIFT [facility] Last Admin: 10/31/23 08:45 Dose: 3 ml Sodium Zirconium Cyclosilicate (Sodium Zirconium Cyclosilicate 10 Gm Powd.Pack) 10 gm PO MOWEFR [facility] Last Admin: 10/30/23 23:10 Dose: 10 gm Sucralfate (Sucralfate 1 Gm Tablet) 1 gm PO QID [facility] Last Admin: 10/31/23 09:27 Dose: Not Given Trazodone HCl (Trazodone Hcl 100 Mg Tablet) 100 mg PO BEDTIME [facility] Last Admin: 10/30/23 20:09 Dose: 100 mg Vitamin D (Cholecalciferol (Vitamin D3) 25 Mcg Tablet) 50 mcg PO DAILY [facility] Last Admin: 10/31/23 09:27 Dose: Not Given Home Medications ?Medication ?Instructions ?Recorded ?Confirmed ?Last Taken ?Type blood sugar diagnostic (FreeStyle 03/28/20 09/09/22 Unknown History Lite Strips) blood-glucose meter (FreeStyle 03/28/20 09/09/22 Unknown History [place] Lite kit) lancets 28 gauge (FreeStyle 03/28/20 09/09/22 Unknown History Lancets) omeprazole 40 mg capsule,delayed 40 mg PO BID@0630,1630 10/02/21 10/27/23 10/26/23 History release blood pressure test kit-large #1 ea 10/12/21 09/09/22 Unknown History atorvastatin 80 mg tablet 1 tab PO DAILY 12/20/21 10/27/23 10/26/23 History nebulizers 01/20/22 09/09/22 Unknown History amlodipine 10 mg tablet 10 mg PO DAILY 05/29/22 10/27/23 10/26/23 History aspirin 81 mg tablet,delayed 81 mg PO DAILY 05/29/22 10/27/23 10/26/23 History release losartan 100 mg tablet 100 mg PO DAILY 05/29/22 10/27/23 10/26/23 History sucralfate 1 gram tablet 1 g PO QID 05/29/22 10/27/23 10/26/23 History lancets 33 gauge (TRUEplus Lancets) #100 ea 06/07/22 09/09/22 Unknown History trazodone 50 mg tablet 100 mg PO BEDTIME 06/07/22 10/27/23 10/26/23 History cholecalciferol (vitamin D3) 50 50 mcg PO DAILY 11/24/22 10/27/23 10/26/23 History mcg (2,000 unit) tablet ferrous gluconate 324 mg (38 mg 324 mg PO DAILY 11/24/22 10/27/23 10/26/23 History iron) tablet furosemide 40 mg tablet 40 mg PO BID 11/24/22 10/27/23 10/26/23 History insulin aspart 6 - 8 unit subcut TID 10/27/23 10/27/23 10/26/23 History (niacinamide)(U-100) 100 unit/mL(3 mL) subcutaneous pen (Fiasp FlexTouch U-100 Insulin) insulin glargine 100 unit/mL (3 30 unit subcut BID 10/27/23 10/27/23 10/26/23 History mL) subcutaneous pen (Basaglar KwikPen U-100 Insulin) Physical Exam Vital Signs: Vital Signs: Last Vital Signs Temp 98.8 F 10/31/23 10:47 Pulse 107 H 10/31/23 10:47 Resp 16 10/31/23 10:47 BP 172/71 H 10/31/23 10:47 Pulse Ox 100 10/31/23 10:47 O2 Del Method Nasal Cannula 10/31/23 10:47 O2 Flow Rate 2 10/31/23 10:47 BMI result Body Mass Index 40.2 General: acute distress Nutritional Appearance: well nourished and overweight Eyes: appearance normal, both eyes and all related structures; Alignment and Position: alignment normal and position normal Neck: No lymphadenopathy, no thyromegaly Resp: bilateral air entry equal, occasional added sounds present Cardio: Regular rate, regular rhythm; Heart sounds: S1 normal heart sound present and S2 normal heart sound present GI: soft, nontender, no guarding, no hepatosplenomegaly : bladder normal to inspection, bladder normal to palpation, no renal angle tenderness Skin: no rashes or lesions noted and elasticity normal Neuro: Has continuous seizures, and status epilepticus, confused obtunded in between Results Labs 11/01/23 05:22 11/01/23 05:22 Labs: Short CBC 10/31/23 Range/Units 07:09 WBC 17.0 H (4.8-10.8) X10*3/uL Hgb 8.1 L (12.0-16.0) g/dl Hct 24.7 L (37.0-47.0) % Plt Count 233 D (160-400) X10*3/uL BMP 10/31/23 07:09 Sodium 141 Potassium 4.3 Chloride 115 H Carbon Dioxide 14 L BUN 83 H Creatinine 4.22 H* Calcium 9.2 Microbiology Microbiology Results: Microbiology 10/27/23 18:46 Urine clean catch - Clean Catch Midstream Urine Culture - Final Escherichia coli Escherichia coli#2 Assessment and Plan (1) Generalized seizure: Status: Acute (2) Cardiorenal syndrome: Status: Acute (3) Pneumonia: Status: Acute (4) Asthma: Status: Acute (5) Pulmonary nodule: Status: Acute (6) Pneumonia: Status: Acute Plan Status epilepticus: Patient has history of left frontal craniectomy for glioma, scar tissue being the foci for seizures. Having ESBL UTI but is possibly a trigger for multiple seizures and status epilepticus now Received Keppra and valproic acid in the floor but continues to be in status epilepticus We gave her loading dose of phenytoin following which status subsided EEG done in the floor showed seizure activity is with status epilepticus. Repeat EEG after phenytoin shows no seizure activity CT head did not show any acute intracranial pathology, we will get MRI of the brain We will continue to closely monitor in the ICU until tomorrow morning ESBL UTI: We will change the antibiotics from ceftriaxone to meropenem based on sensitivities. Chronic kidney disease stage IV-V: Creatinine stable around 4, GFR around 14-16 over the past year Electrolytes stable, no volume related issues. No indication for emergent renal placement therapy Metabolic acidosis: Due to underlying chronic kidney disease We will restart oral sodium bicarbonate once she is able to take oral medications Anemia of chronic kidney disease: Needs erythropoietin therapy Iron profile may be altered given acute infection Closely monitor hemoglobin, transfuse if hemoglobin less than 7 Lines: Peripheral, we will take off [place] Prophylaxis: Heparin Critical care time spent is about 40 minutes on evaluation and admission of the patient to critical care unit, formulating critical care plan and management, close neurological status monitoring, managing patient's status epilepticus, review of labs and images Total time managing care of this patient today: 40 minutes.
[2023-10-31 11:30] LABS: Glucose, Whole Blood 158 mg/dL (60-115)
--- NOTE | 2023-10-31 11:56 | CONS_ITS ---
DATE OF SERVICE: 10/30/2023 REASON FOR CONSULTATION: I was asked to see the patient to assist in evaluation and management of patient's advanced renal failure as reflected by creatinine of 4.98 on admission on October 26, it actually improved now down to 4.21, which is basically her baseline creatinine. HISTORY OF PRESENT ILLNESS: In summary, the patient is a 67-year-old female, well-known to me with advanced stage 4/5 chronic kidney disease on the backdrop of multiple chronic medical problems including diabetes that is insulin dependent, asthma, anemia, GERD, hypertension, who presented to the hospital with a tonoclonic seizure. She has had 2 subsequent seizures witnessed by EMS and at least one during this hospitalization. Records indicate, she had a benign tumor removed 3 years ago with seizures noted after the surgical procedure. On presentation, she was noted to be markedly anemic and worsening renal function, hence current consultation. The patient is lethargic, but arousable and information obtained from electronic medical record. The patient has been evaluated by the hospitalist and Neurology has been involved. The patient has been loaded up with [facility]. PAST MEDICAL HISTORY: As listed above. MEDICATIONS: Her medications on admission listed as the following; 1. Prilosec. 2. Lipitor. 3. Norvasc 10 once a day. 4. Baby aspirin. 5. Insulin. 6. Lasix 40 once a day. Her current medications are noted in the MAR. FAMILY HISTORY: Notable for coronary artery disease and kidney stones. SURGICAL HISTORY: There is mention made that she has had history of renal stent placement, although the details of this are unclear. ALLERGIES: SHE HAS NO KNOWN DRUG ALLERGIES. SOCIAL HISTORY: She is a nonsmoker, nondrinker. No illicit drug use. REVIEW OF SYSTEMS: Unobtainable, because she is very lethargic. PHYSICAL EXAMINATION: VITAL SIGNS: Blood pressure of 190/70, heart rate in the 70s. HEAD: Atraumatic and normocephalic. NECK: Supple. Mucous membranes are moist. LUNGS: Breath sounds bilaterally. CARDIAC: Regular rate and rhythm. ABDOMEN: Soft, nontender with a ventral hernia that is easily reducible. EXTREMITIES: Showed trace edema. NEUROLOGIC: Exam is limited as patient is very lethargic. LABORATORY DATA: Labs from today show sodium 142, potassium 4.1, chloride 113, bicarb 18, BUN 90, creatinine 4.2, calcium 8.8. Her creatinine on admission was 4.98. In reviewing her records, her serum creatinine seems to range in the 3.5 to 5.0 range going back to November 2022. Prior to that, it was ranging 1.5 to 2.5 range. Hemoglobin today is 7.9, it was 6.3 yesterday and she was transfused. Platelet count 184. Urine studies show 4+ protein and some white blood cells in the urine. Previous urine albumin creatinine ratio back in June showed 3.4 g of albumin per gram of creatinine. Serologies in the past were essentially negative, are normal including a negative serum protein electrophoresis. There is an ultrasound from September 14 of this year, which showed no hydronephrosis. IMPRESSION: 67-year-old diabetic with advanced chronic kidney disease, now admitted to the hospital with a seizure along with significant anemia. 1. Severe chronic kidney disease stage 5. The patient has advanced chronic kidney disease that is close to her baseline. She is heading towards needing dialysis, most likely need to start dialysis in the next 3 to 6 months. If Neurology felt that her advanced renal dysfunction was contributing to lowering her seizure threshold, we may entertain the possibility of starting her dialysis this hospitalization, but would prefer to hold off. 2. Anemia. This may be due to combination of erythropoietin and iron deficiency, and she would be a candidate for both. We will monitor and see about instituting. 3. Hypertension. Increase her blood pressure medications. 4. Seizure disorder. Perhaps related to her tumor resection of the brain. She is being evaluated by Neurology. 5. Metabolic bone disease of chronic kidney disease. We will check intact PTH and phosphorus level and treat accordingly. Of note, prior workup for advanced chronic kidney disease was consistent with diabetic hypertensive renal disease. Recommendations at this time include increase her blood pressure medications to get under better control. She is currently on Norvasc 10 mg once a day, and we can add hydralazine for blood pressure control. We will check an intact PTH and phosphorus level. We will check iron studies. Protect her nondominant arm for future AV fistula. We will proceed with a 24 hour urine collection and calculate a combined creatinine urea clearance to better measure her renal function. We will continue to discuss with the hospitalist and Neurology possibility of starting dialysis, but as mentioned above, would like to avoid if possible. We will follow the patient with the team. MD MELI Alan/SILVIA / [phone]
--- NOTE | 2023-10-31 13:35 | MHC.CM.PN ---
Pt transfered to ICU for management of continued and increasing seizure activity. Pt initially from home w/[facility] care - d/c plan to be finalized when pt is medically stable. CM to follow
[2023-10-31 16:19] LABS: Glucose, Whole Blood 186 mg/dL (60-115)
--- NOTE | 2023-10-31 16:50 | P.PNNE_ITS ---
Subjective Subjective Date of Service: 10/31/23 Interval History: Recurrent seizures with status epilepticus Critical Care Time (minutes): 10 Comment: I reviewed her limited EEG which showed one burst of generalized 2 Hz polyspike wave epileptiform discharge. The quality of the EEG was limited because of patient movement and therefore focus of origin could not be determined. Physical Exam 2 Vital Signs: Vital Signs: Last Vital Signs Temp 99.1 F 10/31/23 12:00 Pulse 86 10/31/23 16:00 Resp 13 10/31/23 16:00 BP 162/75 H 10/31/23 16:00 Pulse Ox 98 10/31/23 16:00 O2 Del Method Room Air 10/31/23 16:00 O2 Flow Rate 2 10/31/23 14:00 BMI result Body Mass Index 40.2 Objective Data Labs 11/03/23 05:36 11/03/23 05:36 Labs: Laboratory Results - last 24 hr 10/30/23 10/30/23 10/31/23 16:24 20:40 07:09 WBC 17.0 H RBC 2.52 L Hgb 8.1 L Hct 24.7 L MCV 98.0 MCH 32.1 MCHC 32.8 RDW 12.2 Plt Count 233 D MPV 13.0 H Absolute Nucleated RBC 0.000 Nucleated RBC % (auto) 0.0 Sodium 141 Potassium 4.3 Chloride 115 H Carbon Dioxide 14 L Anion Gap 16 BUN 83 H Creatinine 4.22 H* Estim Creat Clear Calc 14.5 Estimated GFR 11 POC Glucose 176 H Fasting Glucose 136 H Calcium 9.2 Phosphorus 4.8 H Iron 45 TIBC 186 L % Saturation 24 Unsat Iron Binding 141 PTH Intact 157.9 H 10/31/23 10/31/23 10/31/23 07:47 11:22 16:16 WBC RBC Hgb Hct MCV MCH MCHC RDW Plt Count MPV Absolute Nucleated RBC Nucleated RBC % (auto) Sodium Potassium Chloride Carbon Dioxide Anion Gap BUN Creatinine Estim Creat Clear Calc Estimated GFR POC Glucose 136 H 158 H 186 H Fasting Glucose Calcium Phosphorus Iron TIBC % Saturation Unsat Iron Binding PTH Intact Microbiology Microbiology Results: Microbiology 10/27/23 18:46 Urine clean catch - Clean Catch Midstream Urine Culture - Final Escherichia coli Escherichia coli#2 Progress Note: A&P Assessment and plan (1) Recurrent seizures: Status: Acute Plan I would recommend IV Depacon 1 g every 12 hours and check her levels in 48 hours. He was IV lorazepam 1-2 mg when necessary for seizures. MRI of the brain when the patient is able to have it. Followup EEG on Monday Time Spent With Patient Time: Total time managing care of this patient today 15 minutes. Procedures Date of Service Date of Service: 01/02/24 Quality Stroke Does the patient have a stroke diagnosis?: No VTE Prior VTE?: No VTE Risk Level:: Medical - moderate - high VTE Device Contraindication: Treatment Not Indicated VTE Drug Contraindication: N/A - Med Ordered
[2023-10-31] MEDS: Phenytoin Sodium 100 MG/2 ML VIAL IVPUSH ×2 (17:41→21:10)
--- NOTE | 2023-10-31 19:26 | PC.NURSE ---
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 pt having seizures every 2-3 minutes. Valproic acid administered per APR. EGG performed at bedside. Pt transferred?to ICU. On arrival?to the unit pt had seizure x2. Dilantin administered per APR. EEG repeated at bedside.?
[2023-10-31 19:57] LABS: Basophils Absolute Auto 0.1 X10*3/uL (0.0-0.2); Basophils Percent Auto 0.3 % (0-2); Eosinophils Percent Auto 0.1 % (0-4); Hematocrit 22.7 % (37.0-47.0); Hemoglobin 7.7 g/dl (12.0-16.0); Imm Gran Abs Auto 0.28 X10*3/uL (0.00-0.03); Imm Gran Pct Auto 1.5 % (0.0-0.4); Lymphocytes Percent Auto 5.3 % (20-40); MANUAL DIFF FLAG SCAN; Mean Corpuscular HGB Conc 33.9 g/dl (31.0-35.0); Mean Corpuscular Hemoglobin 32.5 pg (27.0-33.0); Mean Corpuscular Volume 95.8 fL (80.0-98.0); Mean Platelet Volume 13.7 fL (9.4-12.3); Monocytes Absolute Auto 1.1 X10*3/uL (0.1-1.2); Monocytes Percent Auto 5.6 % (2-11); Neutrophils Absolute Auto 16.8 x10*3/uL (2.0-8.3); Neutrophils Percent Auto 87.2 % (45-73); PLT CLUMP 1; Red Blood Count 2.37 X10*6/uL (4.20-5.50); Red Cell Distribution Width 12.4 % (11.0-16.0); SCAN SMEAR FLAG 1
[2023-10-31 20:14] LABS: Alanine Aminotransferase 13 U/L (0-31); Alkaline Phosphatase 95 U/L (39-117); Anion Gap 18 (12-20); Aspartate Amino Transferase 22 U/L (5-31); Bilirubin Total 0.2 mg/dL (0.0-1.0); Blood Urea Nitrogen 88 mg/dL (9-16); Calcium 8.1 mg/dL (8.4-10.2); Carbon Dioxide 13 mmol/L (22-29); Chloride 116 mmol/L (96-108); Creatinine Clr Calc Pharmacy 13.8; Estimated Glomerular Filt Rate 10; Glucose Random 196 mg/dL (60-115); Potassium 5.3 mmol/L (3.3-5.1); Sodium 142 mmol/L (135-145); Total Protein 5.9 g/dL (6.5-8.0)
[2023-10-31 20:55] LABS: White Blood Count 19.2 X10*3/uL (4.8-10.8)
[2023-10-31 20:56] LABS: SLIDE REVIEW VERIFIED
[2023-10-31] MEDS: Sodium Bicarbonate 650 MG TABLET PO (20:56)
[2023-10-31] MEDS: Acetaminophen 325 MG TABLET 650 MG PO (20:56)
[2023-10-31] MEDS: traZODone HCL 100 MG TABLET PO (20:56)
[2023-10-31] MEDS: Sucralfate 1 GM TABLET PO (20:56)
[2023-10-31 21:17] LABS: Glucose, Whole Blood 162 mg/dL (60-115)
[2023-10-31] MEDS: amLODIPine Besylate 10 MG TABLET PO (21:27)
[2023-11-01] VITALS (15 sets, daily range): BP systolic 104–174; BP diastolic 54–83; PULSE 64–85; RESP 12–22; TEMP 36.3–36.9; O2SAT 98–100; BMI 42.7
[2023-11-01] MEDS: 0.9 % Sodium Chloride Flush 3 ML SYRINGE IVFLUSH ×2 (00:44→08:27)
[2023-11-01] MEDS: levETIRAcetam in NaCl (iso-os) 500 MG/100 ML PIGGYBACK 400 MG IV ×2 (03:35→15:23)
[2023-11-01 05:32] LABS: VBG Base Excess -8.1 mmol/L; VBG HCO3 16 mmol/L (22-26); VBG pCO2 30 mmHg; VBG pH 7.34 (7.32-7.43); VBG pO2 58 mmHg
[2023-11-01 05:47] LABS: Mean Corpuscular Hemoglobin 32.1 pg (27.0-33.0); Mean Corpuscular Volume 97.2 fL (80.0-98.0); Mean Platelet Volume 12.9 fL (9.4-12.3); Red Blood Count 2.15 X10*6/uL (4.20-5.50); Red Cell Distribution Width 12.2 % (11.0-16.0); White Blood Count 15.7 X10*3/uL (4.8-10.8)
[2023-11-01 05:53] LABS: Hematocrit 20.9 % (37.0-47.0); Hemoglobin 6.9 g/dl (12.0-16.0)
[2023-11-01 05:56] LABS: Venous Blood Gas Refer to POC result
[2023-11-01] MEDS: Omeprazole 40 MG CAPSULE.DR PO (05:57)
[2023-11-01] MEDS: Acetaminophen 325 MG TABLET 650 MG PO ×2 (05:57→22:26)
[2023-11-01 06:05] LABS: Alanine Aminotransferase 9 U/L (0-31); Albumin Level 2.8 g/dL (3.5-5.0); Alkaline Phosphatase 80 U/L (39-117); Anion Gap 13 (12-20); Aspartate Amino Transferase 18 U/L (5-31); Bilirubin Total 0.2 mg/dL (0.0-1.0); Blood Urea Nitrogen 90 mg/dL (9-16); Calcium 8.6 mg/dL (8.4-10.2); Carbon Dioxide 17 mmol/L (22-29); Chloride 117 mmol/L (96-108); Creatinine Clr Calc Pharmacy 13.9; Estimated Glomerular Filt Rate 10; Glucose Random 115 mg/dL (60-115); Magnesium 2.3 mg/dL (1.6-2.6); Phosphorus 5.8 mg/dL (2.7-4.5); Potassium 4.4 mmol/L (3.3-5.1); Sodium 143 mmol/L (135-145)
[2023-11-01 07:40] LABS: Glucose, Whole Blood 122 mg/dL (60-115)
[2023-11-01] MEDS: Phenytoin Sodium 100 MG/2 ML VIAL IVPUSH ×3 (08:26→22:25)
[2023-11-01] MEDS: Aspirin Enteric Coated 81 MG TABLET.DR PO (08:27)
[2023-11-01] MEDS: Atorvastatin Calcium 80 MG TABLET PO (08:27)
[2023-11-01] MEDS: Sucralfate 1 GM TABLET PO ×2 (08:27→22:26)
[2023-11-01] MEDS: Sodium Bicarbonate 650 MG TABLET PO ×2 (08:27→22:27)
[2023-11-01] MEDS: Cholecalciferol (Vitamin D3) 25 MCG TABLET 50 MCG PO (08:27)
[2023-11-01] MEDS: Ferrous Sulfate 324 MG TABLET.DR PO (08:27)
[2023-11-01] MEDS: amLODIPine Besylate 10 MG TABLET PO (08:27)
--- NOTE | 2023-11-01 09:57 | MHC.CM.PN ---
Pt has remained seizure free for almost 24 hours - will transfer to medical floor for continued care: Broad referrals made in the event pt requires STR. MD to order PT eval for assessment of functional ability. Pt from home w/family and [employer] care. BLS transport. CM to follow
[2023-11-01 11:08] LABS: Glucose, Whole Blood 122 mg/dL (60-115)
--- NOTE | 2023-11-01 11:19 | PM.CCPN ---
Subjective Subjective Date of Service: 11/01/23 Interval History: No further seizure activities after loading dose of fosphenytoin More alert and oriented, has a episodes of confusion and agitation possibly due to postictal confusion MRI of the brain did not showed postictal changes Critical Care Time (minutes): 35 Physical Exam Vital Signs: Vital Signs: Last Vital Signs Temp 98.5 F 11/01/23 09:02 Pulse 79 11/01/23 09:02 Resp 13 11/01/23 09:02 BP 153/57 H 11/01/23 09:02 Pulse Ox 100 11/01/23 08:00 O2 Del Method Room Air 11/01/23 08:00 O2 Flow Rate 2 10/31/23 14:00 Oxygen Flow Rate 2 10/31/23 18:28 BMI result Body Mass Index 42.7 General: Not in acute distress, ill appearing Nutritional Appearance: well nourished and overweight Eyes: appearance normal, both eyes and all related structures; Alignment and Position: alignment normal and position normal Neck: No lymphadenopathy, no thyromegaly Resp: bilateral air entry equal,no added sounds present Cardio: Regular rate, regular rhythm; Heart sounds: S1 normal heart sound present and S2 normal heart sound present GI: soft, nontender, no guarding, no hepatosplenomegaly : bladder normal to inspection, bladder normal to palpation, no renal angle tenderness Skin: no rashes or lesions noted and elasticity normal Neuro: oriented to person, confusion+ and moves all extremities Objective Data Labs 11/01/23 05:22 11/01/23 05:22 Labs: Laboratory Results - last 24 hr 10/29/23 10/31/23 10/31/23 08:30 11:22 16:16 WBC RBC Hgb Hct MCV MCH MCHC RDW Plt Count MPV Immature Gran % (Auto) Neut % (Auto) Lymph % (Auto) Phelps % (Auto) Eos % (Auto) Baso % (Auto) Lymph # (Auto) Phelps # (Auto) Eos # (Auto) Baso # (Auto) Abs Immat Gran (auto) Absolute Neuts (auto) Absolute Nucleated RBC Nucleated RBC % (auto) Smear Tech's Comments VBG pH VBG pCO2 VBG pO2 VBG HCO3 VBG O2 Saturation VBG Base Excess Sodium Potassium Chloride Carbon Dioxide Anion Gap BUN Creatinine Estim Creat Clear Calc Estimated GFR POC Glucose 158 H 186 H Random Glucose Fasting Glucose Calcium Phosphorus Magnesium Total Bilirubin AST ALT Alkaline Phosphatase Total Protein Albumin Blood Type O Positive Antibody Screen NEGATIVE Crossmatch See Detail 10/31/23 10/31/23 11/01/23 19:47 21:14 05:21 WBC 19.2 H RBC 2.37 L Hgb 7.7 L Hct 22.7 L MCV 95.8 MCH 32.5 MCHC 33.9 RDW 12.4 Plt Count Not Reportable MPV 13.7 H Immature Gran % (Auto) 1.5 H Neut % (Auto) 87.2 H Lymph % (Auto) 5.3 L Phelps % (Auto) 5.6 Eos % (Auto) 0.1 Baso % (Auto) 0.3 Lymph # (Auto) 1.0 L Phelps # (Auto) 1.1 Eos # (Auto) 0.0 Baso # (Auto) 0.1 Abs Immat Gran (auto) 0.28 H Absolute Neuts (auto) 16.8 H Absolute Nucleated RBC 0.000 Nucleated RBC % (auto) 0.0 Smear Tech's Comments VERIFIED VBG pH 7.34 VBG pCO2 30 VBG pO2 58 VBG HCO3 16 L VBG O2 Saturation 91.0 VBG Base Excess -8.1 Sodium 142 Potassium 5.3 H D Chloride 116 H Carbon Dioxide 13 L Anion Gap 18 BUN 88 H Creatinine 4.43 H* Estim Creat Clear Calc 13.8 Estimated GFR 10 POC Glucose 162 H Random Glucose 196 H Fasting Glucose Calcium 8.1 L D Phosphorus Magnesium Total Bilirubin 0.2 AST 22 ALT 13 Alkaline Phosphatase 95 Total Protein 5.9 L Albumin 3.0 L Blood Type Antibody Screen Crossmatch 11/01/23 11/01/23 11/01/23 05:22 05:22 05:22 WBC 15.7 H RBC 2.15 L Hgb 6.9 L* Hct 20.9 L* MCV 97.2 MCH 32.1 MCHC 33.0 RDW 12.2 Plt Count TNP MPV 12.9 H Immature Gran % (Auto) Neut % (Auto) Lymph % (Auto) Phelps % (Auto) Eos % (Auto) Baso % (Auto) Lymph # (Auto) Phelps # (Auto) Eos # (Auto) Baso # (Auto) Abs Immat Gran (auto) Absolute Neuts (auto) Absolute Nucleated RBC 0.000 Nucleated RBC % (auto) 0.0 Smear Tech's Comments VBG pH VBG pCO2 VBG pO2 VBG HCO3 VBG O2 Saturation VBG Base Excess Sodium Cancelled 143 Potassium Cancelled 4.4 Chloride Cancelled Carbon Dioxide Anion Gap BUN Creatinine Estim Creat Clear Calc Estimated GFR POC Glucose Random Glucose Fasting Glucose Calcium Phosphorus Magnesium Total Bilirubin AST ALT Alkaline Phosphatase Total Protein Albumin Blood Type Antibody Screen Crossmatch 11/01/23 11/01/23 11/01/23 05:22 05:22 05:22 WBC RBC Hgb Hct MCV MCH MCHC RDW Plt Count MPV Immature Gran % (Auto) Neut % (Auto) Lymph % (Auto) Phelps % (Auto) Eos % (Auto) Baso % (Auto) Lymph # (Auto) Phelps # (Auto) Eos # (Auto) Baso # (Auto) Abs Immat Gran (auto) Absolute Neuts (auto) Absolute Nucleated RBC Nucleated RBC % (auto) Smear Tech's Comments VBG pH VBG pCO2 VBG pO2 VBG HCO3 VBG O2 Saturation VBG Base Excess Sodium Potassium Chloride 117 H Carbon Dioxide Cancelled 17 L Anion Gap Cancelled 13 BUN Cancelled Creatinine Estim Creat Clear Calc Estimated GFR POC Glucose Random Glucose Fasting Glucose Calcium Phosphorus Magnesium Total Bilirubin AST ALT Alkaline Phosphatase Total Protein Albumin Blood Type Antibody Screen Crossmatch 11/01/23 11/01/23 11/01/23 05:22 05:22 05:22 WBC RBC Hgb Hct MCV MCH MCHC RDW Plt Count MPV Immature Gran % (Auto) Neut % (Auto) Lymph % (Auto) Phelps % (Auto) Eos % (Auto) Baso % (Auto) Lymph # (Auto) Phelps # (Auto) Eos # (Auto) Baso # (Auto) Abs Immat Gran (auto) Absolute Neuts (auto) Absolute Nucleated RBC Nucleated RBC % (auto) Smear Tech's Comments VBG pH VBG pCO2 VBG pO2 VBG HCO3 VBG O2 Saturation VBG Base Excess Sodium Potassium Chloride Carbon Dioxide Anion Gap BUN 90 H Creatinine Cancelled 4.39 H* Estim Creat Clear Calc Cancelled 13.9 Estimated GFR Cancelled POC Glucose Random Glucose Fasting Glucose Calcium Phosphorus Magnesium Total Bilirubin AST ALT Alkaline Phosphatase Total Protein Albumin Blood Type Antibody Screen Crossmatch 11/01/23 11/01/23 11/01/23 05:22 05:22 07:37 WBC RBC Hgb Hct MCV MCH MCHC RDW Plt Count MPV Immature Gran % (Auto) Neut % (Auto) Lymph % (Auto) Phelps % (Auto) Eos % (Auto) Baso % (Auto) Lymph # (Auto) Phelps # (Auto) Eos # (Auto) Baso # (Auto) Abs Immat Gran (auto) Absolute Neuts (auto) Absolute Nucleated RBC Nucleated RBC % (auto) Smear Tech's Comments VBG pH VBG pCO2 VBG pO2 VBG HCO3 VBG O2 Saturation VBG Base Excess Sodium Potassium Chloride Carbon Dioxide Anion Gap BUN Creatinine Estim Creat Clear Calc Estimated GFR 10 POC Glucose 122 H Random Glucose 115 Fasting Glucose Cancelled Calcium Cancelled 8.6 D Phosphorus 5.8 H Magnesium 2.3 Total Bilirubin 0.2 AST 18 ALT 9 Alkaline Phosphatase 80 Total Protein 6.0 L Albumin 2.8 L Blood Type Antibody Screen Crossmatch 11/01/23 11/01/23 07:41 10:57 WBC RBC Hgb Hct MCV MCH MCHC RDW Plt Count MPV Immature Gran % (Auto) Neut % (Auto) Lymph % (Auto) Phelps % (Auto) Eos % (Auto) Baso % (Auto) Lymph # (Auto) Phelps # (Auto) Eos # (Auto) Baso # (Auto) Abs Immat Gran (auto) Absolute Neuts (auto) Absolute Nucleated RBC Nucleated RBC % (auto) Smear Tech's Comments VBG pH VBG pCO2 VBG pO2 VBG HCO3 VBG O2 Saturation VBG Base Excess Sodium Potassium Chloride Carbon Dioxide Anion Gap BUN Creatinine Estim Creat Clear Calc Estimated GFR POC Glucose 122 H Random Glucose Fasting Glucose Calcium Phosphorus Magnesium Total Bilirubin AST ALT Alkaline Phosphatase Total Protein Albumin Blood Type O Positive Antibody Screen NEGATIVE Crossmatch See Detail Microbiology Microbiology Results: Microbiology 10/27/23 18:46 Urine clean catch - Clean Catch Midstream Urine Culture - Final Escherichia coli Escherichia coli#2 Progress Note: A&P Assessment and plan (1) Generalized seizure: Status: Acute (2) Cardiorenal syndrome: Status: Acute (3) Pneumonia: Status: Acute (4) Asthma: Status: Acute (5) Pulmonary nodule: Status: Acute (6) Pneumonia: Status: Acute Plan Status epilepticus: Patient has history of left frontal craniectomy for glioma, scar tissue being the foci for seizures. Having ESBL UTI is possibly a trigger leading to multiple seizures and status epilepticus now Continue Keppra 500 mg b.i.d. which is renally dosed, valproic acid and phenytoin. Please to the event pushes as needed if any further seizure episodes. Also can load with half loading dose of phenytoin if the seizures does not subside. Repeat EEG after phenytoin shows no seizure activity; pending EEG today CT head did not show any acute intracranial pathology, MRI of the brain suggestive of postictal changes no other acute intracranial pathology Continue to hold oral medications until mental status is completely normal ESBL UTI: Continue meropenem based on sensitivities. Chronic kidney disease stage IV-V: Creatinine stable around 4, GFR around 14-16 over the past year Electrolytes stable, no volume related issues. No indication for emergent renal placement therapy Metabolic acidosis: Due to underlying chronic kidney disease We will restart oral sodium bicarbonate once she is able to take oral medications Hypertension: Blood pressure under control Amlodipine was held yesterday given what mental status Anemia of chronic disease: Secondary to chronic kidney disease stage 4 to 5 and now requiring multiple blood draws with poor production Needs erythropoietin therapy Can get iron profile to replete iron deficiency if any. We will be altered in the setting of acute infection and blood transfusion. We will transfuse 1 unit of PRBC this morning Closely monitor hemoglobin, transfuse if hemoglobin less than 7 Lines: Peripheral Prophylaxis: Heparin Quality Stroke Does the patient have a stroke diagnosis?: No VTE Prior VTE?: No VTE Risk Level:: Medical - moderate - high VTE Device Contraindication: Treatment Not Indicated VTE Drug Contraindication: N/A - Med Ordered
[2023-11-01] MEDS: Valproic Acid (as Sodium Salt) 1,000 MG in Dextrose 5 % 50 ML 60 MG IV (12:17)
[2023-11-01] MEDS: Dextrose 5 % and 0.9 % NaCl 1,000 ML 80 ML IVCONT (13:47)
[2023-11-01 14:32] LABS: Hematocrit 24.5 % (37.0-47.0); Hemoglobin 8.2 g/dl (12.0-16.0); Mean Corpuscular HGB Conc 33.5 g/dl (31.0-35.0); Mean Corpuscular Hemoglobin 31.7 pg (27.0-33.0); Mean Corpuscular Volume 94.6 fL (80.0-98.0); PLT CLUMP 1; Red Blood Count 2.59 X10*6/uL (4.20-5.50); Red Cell Distribution Width 13.3 % (11.0-16.0)
[2023-11-01 14:48] LABS: Anion Gap 14 (12-20); Blood Urea Nitrogen 87 mg/dL (9-16); Calcium 8.7 mg/dL (8.4-10.2); Carbon Dioxide 16 mmol/L (22-29); Chloride 117 mmol/L (96-108); Creatinine Clr Calc Pharmacy 14.5; Estimated Glomerular Filt Rate 10; Glucose Random 120 mg/dL (60-115); Potassium 4.7 mmol/L (3.3-5.1); Sodium 142 mmol/L (135-145)
[2023-11-01 15:10] LABS: White Blood Count 16.7 X10*3/uL (4.8-10.8)
[2023-11-01 15:11] LABS: Mean Platelet Volume 12.8 fL (9.4-12.3); Platelet Count 196 X10*3/uL (160-400)
[2023-11-01 16:31] LABS: Glucose, Whole Blood 120 mg/dL (60-115)
[2023-11-01 20:59] LABS: Glucose, Whole Blood 159 mg/dL (60-115)
[2023-11-01] MEDS: traZODone HCL 100 MG TABLET PO (22:26)
[2023-11-01] MEDS: Melatonin 3 MG TABLET 6 MG PO (22:27)
[2023-11-01] MEDS: Sodium Zirconium Cyclosilicate 10 GM POWD.PACK PO (22:52)
[2023-11-02] VITALS (7 sets, daily range): BP systolic 132–169; BP diastolic 65–80; PULSE 67–80; RESP 17–20; TEMP 36.1–36.6; O2SAT 95–100; BMI 45.9
--- NOTE | 2023-11-02 00:30 | PM.PNNEP ---
Subjective Subjective Date of Service: 11/01/23 Interval history: Seen and examined, events ntoed Physical Exam Vital Signs: Vital Signs: Last Vital Signs Temp 97.8 F 11/01/23 23:15 Pulse 80 11/01/23 23:15 Resp 20 11/01/23 23:15 BP 164/72 H 11/01/23 23:15 Pulse Ox 100 11/01/23 23:15 O2 Del Method Room Air 11/01/23 23:15 O2 Flow Rate 2 10/31/23 14:00 Oxygen Flow Rate 2 10/31/23 18:28 BMI result Body Mass Index 42.7 Neuro: Other: She is arousable but poorly responsive. She follows one-step commands at times but does not verbalize. There are times where she turns her head to the right with eye deviation to the right. She protrudes her tongue to command. She has a good scratcher tender on the left and moves the left side to command specially the upper extremity but is flaccid in the right upper extremity. Neck is supple Objective Data Labs 11/01/23 14:08 11/01/23 14:08 Labs: Laboratory Results - last 24 hr 10/29/23 11/01/23 11/01/23 08:30 05:21 05:22 WBC 15.7 H RBC 2.15 L Hgb 6.9 L* Hct 20.9 L* MCV 97.2 MCH 32.1 MCHC 33.0 RDW 12.2 Plt Count TNP MPV 12.9 H Absolute Nucleated RBC 0.000 Nucleated RBC % (auto) 0.0 VBG pH 7.34 VBG pCO2 30 VBG pO2 58 VBG HCO3 16 L VBG O2 Saturation 91.0 VBG Base Excess -8.1 Sodium Cancelled Potassium Chloride Carbon Dioxide Anion Gap BUN Creatinine Estim Creat Clear Calc Estimated GFR POC Glucose Random Glucose Fasting Glucose Calcium Phosphorus Magnesium Total Bilirubin AST ALT Alkaline Phosphatase Total Creatine Kinase Total Protein Albumin Blood Type O Positive Antibody Screen NEGATIVE Crossmatch See Detail 11/01/23 11/01/23 11/01/23 05:22 05:22 05:22 WBC RBC Hgb Hct MCV MCH MCHC RDW Plt Count MPV Absolute Nucleated RBC Nucleated RBC % (auto) VBG pH VBG pCO2 VBG pO2 VBG HCO3 VBG O2 Saturation VBG Base Excess Sodium 143 Potassium Cancelled 4.4 Chloride Cancelled 117 H Carbon Dioxide Cancelled Anion Gap BUN Creatinine Estim Creat Clear Calc Estimated GFR POC Glucose Random Glucose Fasting Glucose Calcium Phosphorus Magnesium Total Bilirubin AST ALT Alkaline Phosphatase Total Creatine Kinase Total Protein Albumin Blood Type Antibody Screen Crossmatch 11/01/23 11/01/23 11/01/23 05:22 05:22 05:22 WBC RBC Hgb Hct MCV MCH MCHC RDW Plt Count MPV Absolute Nucleated RBC Nucleated RBC % (auto) VBG pH VBG pCO2 VBG pO2 VBG HCO3 VBG O2 Saturation VBG Base Excess Sodium Potassium Chloride Carbon Dioxide 17 L Anion Gap Cancelled 13 BUN Cancelled 90 H Creatinine Cancelled Estim Creat Clear Calc Estimated GFR POC Glucose Random Glucose Fasting Glucose Calcium Phosphorus Magnesium Total Bilirubin AST ALT Alkaline Phosphatase Total Creatine Kinase Total Protein Albumin Blood Type Antibody Screen Crossmatch 11/01/23 11/01/23 11/01/23 05:22 05:22 05:22 WBC RBC Hgb Hct MCV MCH MCHC RDW Plt Count MPV Absolute Nucleated RBC Nucleated RBC % (auto) VBG pH VBG pCO2 VBG pO2 VBG HCO3 VBG O2 Saturation VBG Base Excess Sodium Potassium Chloride Carbon Dioxide Anion Gap BUN Creatinine 4.39 H* Estim Creat Clear Calc Cancelled 13.9 Estimated GFR Cancelled 10 POC Glucose Random Glucose 115 Fasting Glucose Cancelled Calcium Cancelled Phosphorus Magnesium Total Bilirubin AST ALT Alkaline Phosphatase Total Creatine Kinase Total Protein Albumin Blood Type Antibody Screen Crossmatch 11/01/23 11/01/23 11/01/23 05:22 07:37 07:41 WBC RBC Hgb Hct MCV MCH MCHC RDW Plt Count MPV Absolute Nucleated RBC Nucleated RBC % (auto) VBG pH VBG pCO2 VBG pO2 VBG HCO3 VBG O2 Saturation VBG Base Excess Sodium Potassium Chloride Carbon Dioxide Anion Gap BUN Creatinine Estim Creat Clear Calc Estimated GFR POC Glucose 122 H Random Glucose Fasting Glucose Calcium 8.6 D Phosphorus 5.8 H Magnesium 2.3 Total Bilirubin 0.2 AST 18 ALT 9 Alkaline Phosphatase 80 Total Creatine Kinase Total Protein 6.0 L Albumin 2.8 L Blood Type O Positive Antibody Screen NEGATIVE Crossmatch See Detail 11/01/23 11/01/23 11/01/23 10:57 14:08 16:27 WBC 16.7 H RBC 2.59 L D Hgb 8.2 L Hct 24.5 L MCV 94.6 MCH 31.7 MCHC 33.5 RDW 13.3 Plt Count 196 MPV 12.8 H Absolute Nucleated RBC 0.000 Nucleated RBC % (auto) 0.0 VBG pH VBG pCO2 VBG pO2 VBG HCO3 VBG O2 Saturation VBG Base Excess Sodium 142 Potassium 4.7 Chloride 117 H Carbon Dioxide 16 L Anion Gap 14 BUN 87 H Creatinine 4.33 H* Estim Creat Clear Calc 14.5 Estimated GFR 10 POC Glucose 122 H 120 H Random Glucose 120 H Fasting Glucose Calcium 8.7 Phosphorus Magnesium Total Bilirubin AST ALT Alkaline Phosphatase Total Creatine Kinase 726 H Total Protein Albumin Blood Type Antibody Screen Crossmatch 11/01/23 20:55 WBC RBC Hgb Hct MCV MCH MCHC RDW Plt Count MPV Absolute Nucleated RBC Nucleated RBC % (auto) VBG pH VBG pCO2 VBG pO2 VBG HCO3 VBG O2 Saturation VBG Base Excess Sodium Potassium Chloride Carbon Dioxide Anion Gap BUN Creatinine Estim Creat Clear Calc Estimated GFR POC Glucose 159 H Random Glucose Fasting Glucose Calcium Phosphorus Magnesium Total Bilirubin AST ALT Alkaline Phosphatase Total Creatine Kinase Total Protein Albumin Blood Type Antibody Screen Crossmatch Microbiology Microbiology Results: Microbiology 10/27/23 18:46 Urine clean catch - Clean Catch Midstream Urine Culture - Final Escherichia coli Escherichia coli#2 Procedures Date of Service Date of Service: 11/02/23 Assessment & Plan Assessment and plan (1) Generalized seizure: Status: Acute (2) Cardiorenal syndrome: Status: Acute (3) Pneumonia: Status: Acute (4) Asthma: Status: Acute (5) Pulmonary nodule: Status: Acute Plan 1. ADV CKD4/5: SCr close to baseline; DN/HTN renal disease 2. Anemia: drop in Hb again; being evaluated as to cause of sudden slt drop in Hb w/o evid of bleeding; getting xfuse for 2nd unit durin this hos[p; PLT ok but still will check for evid of hemolyisis ( TMA) chronic anemia d/t Epo def state 3. HTN 4. SZ: w/u and Tx as noted 5. NAGMA: goal is to keep > 20 and will cont po NaHCO3 6. UI: ABx as noted and adjut for adv CKD REC: cont BP meds as noted and incr if BP cont to run high; track renal func; avoid NToxin, LDH/hapto and CBC w diff in am Will follow with team Time Spent With Patient Time: Total time managing care of this patient today ____ minutes. Progress Note: Quality Stroke Does the patient have a stroke diagnosis?: No
[2023-11-02] MEDS: Valproic Acid (as Sodium Salt) 1,000 MG in Dextrose 5 % 50 ML 60 MG IV (01:00)
[2023-11-02] MEDS: Dextrose 5 % and 0.9 % NaCl 1,000 ML 80 ML IVCONT (01:01)
[2023-11-02] MEDS: 0.9 % Sodium Chloride Flush 3 ML SYRINGE IVFLUSH ×3 (01:03→21:22)
[2023-11-02] MEDS: levETIRAcetam in NaCl (iso-os) 500 MG/100 ML PIGGYBACK 400 MG IV (03:08)
[2023-11-02] MEDS: Omeprazole 40 MG CAPSULE.DR PO ×2 (07:06→15:54)
[2023-11-02 07:36] LABS: Glucose, Whole Blood 128 mg/dL (60-115)
[2023-11-02] MEDS: Acetaminophen 325 MG TABLET 650 MG PO ×2 (09:08→21:16)
[2023-11-02] MEDS: Cholecalciferol (Vitamin D3) 25 MCG TABLET 50 MCG PO (09:09)
[2023-11-02] MEDS: Aspirin Enteric Coated 81 MG TABLET.DR PO (09:09)
[2023-11-02] MEDS: amLODIPine Besylate 10 MG TABLET PO (09:09)
[2023-11-02] MEDS: Sodium Bicarbonate 650 MG TABLET PO ×4 (09:09→21:15)
[2023-11-02] MEDS: Sucralfate 1 GM TABLET PO ×4 (09:09→21:14)
[2023-11-02] MEDS: Atorvastatin Calcium 80 MG TABLET PO (09:09)
[2023-11-02] MEDS: Ferrous Sulfate 324 MG TABLET.DR PO (09:09)
[2023-11-02] MEDS: Phenytoin Sodium 100 MG/2 ML VIAL IVPUSH (09:10)
[2023-11-02 11:15] LABS: Glucose, Whole Blood 180 mg/dL (60-115)
[2023-11-02] MEDS: Valproic Acid 250 MG CAPSULE 1000 MG PO ×2 (11:33→21:14)
[2023-11-02] MEDS: levETIRAcetam 500 MG TABLET PO ×2 (11:34→21:14)
--- NOTE | 2023-11-02 12:20 | P.PNIM_ITS ---
Subjective Subjective Date of Service: 11/02/23 Interval History: seen and evaluated this morning more alert and interactive but overall confused denies any fever , chills or pain no reported seizures overnight Review of Systems Review of Systems: Yes all other systems are reviewed and are negative Physical Exam 2 Vital Signs: Vital Signs: Last Vital Signs Temp 97.6 F 11/02/23 12:00 Pulse 70 11/02/23 12:00 Resp 18 11/02/23 12:00 BP 137/65 11/02/23 12:00 Pulse Ox 100 11/02/23 12:00 O2 Del Method Room Air 11/02/23 12:00 O2 Flow Rate 2 10/31/23 14:00 Oxygen Flow Rate 2 10/31/23 18:28 BMI result Body Mass Index 45.9 Const: Other: Constitutional : Awake, not in distress, gets anxious easily Neck : Normal inspection, Supple Cardiovascular : RRR, no JVP, no lower extremity edema Respiratory : good bilateral air entry, no crackles Gastrointestinal: soft, lax, Normal bowel sounds, Non tender Skin : Warm, Dry Neurological : Alert & oriented to date but convinced she is home, No focal deficit , CN 2-12 within normal Objective Data Active Medications Acetaminophen (Acetaminophen 325 Mg Tablet) 650 mg PO Q6H PRN PRN Reason: Pain, Mild (Pain Scale 1-3), fever or headache Last Admin: 11/02/23 09:08 Dose: 650 mg Documented By: NIGHAT Amlodipine Besylate (Amlodipine Besylate 10 Mg Tablet) 10 mg PO DAILY [facility]; Protocol Last Admin: 11/02/23 09:09 Dose: 10 mg Documented By: NIGHAT Aspirin (Aspirin Enteric Coated 81 Mg Tablet.) 81 mg PO DAILY [facility] Last Admin: 11/02/23 09:09 Dose: 81 mg Documented By: NIGHAT Atorvastatin Calcium (Atorvastatin Calcium 80 Mg Tablet) 80 mg PO DAILY [facility] Last Admin: 11/02/23 09:09 Dose: 80 mg Documented By: NIGHAT Calcium Carbonate (Calcium Carbonate 750 Mg Tab.Chew) 750 mg PO Q4H PRN PRN Reason: Heartburn Fentanyl (Fentanyl Citrate/Pf 100 Mcg/2 Ml Vial) 25 mcg IVPUSH Q6H PRN; Protocol PRN Reason: Pain, Moderate(Pain Scale 4-6) Ferrous Sulfate (Ferrous Sulfate 324 Mg Tablet.) 324 mg PO DAILY [facility] Last Admin: 11/02/23 09:09 Dose: 324 mg Documented By: NIGHAT Hydralazine HCl (Hydralazine Hcl 20 Mg/Ml Vial) 10 mg IVPUSH Q6H PRN; Protocol PRN Reason: sbp > 180 Meropenem 500 mg/ Sodium (Chloride) 50 mls @ 100 mls/hr IV Q12H [facility] Last Infusion: 11/02/23 12:06 Dose: Infused Documented By: NIGHAT Levetiracetam (Levetiracetam 500 Mg Tablet) 500 mg PO BID [facility] Last Admin: 11/02/23 11:34 Dose: 500 mg Documented By: NIGHAT Lorazepam (Lorazepam 2 Mg/Ml Vial) 2 mg IVPUSH Q4H PRN PRN Reason: Seizures Last Admin: 10/31/23 07:00 Dose: 2 mg Documented By: EFRAIN Magnesium Hydroxide (Milk Of Magnesia 30 Ml Oral.Susp) 30 ml PO DAILY PRN PRN Reason: Constipation Melatonin (Melatonin 3 Mg Tablet) 6 mg PO BEDTIME PRN PRN Reason: Insomnia Last Admin: 11/01/23 22:27 Dose: 6 mg Documented By: BABATUNDE Omeprazole (Omeprazole 40 Mg Capsule.) 40 mg PO BID@0630,1630 [facility] Last Admin: 11/02/23 07:06 Dose: 40 mg Documented By: BABATUNDE Ondansetron HCl (Ondansetron Hcl 4 Mg/2 Ml Vial) 4 mg IVPUSH Q8H PRN PRN Reason: Nausea and Vomiting Phenytoin Sodium (Phenytoin Sodium Extended 100 Mg Capsule) 100 mg PO TID [facility] Sodium Bicarbonate (Sodium Bicarbonate 650 Mg Tablet) 650 mg PO QID [facility] Last Admin: 11/02/23 11:33 Dose: 650 mg Documented By: NIGHAT Sodium Chloride (0.9 % Sodium Chloride Flush 3 Ml Syringe) 3 ml IVFLUSH QSHIFT [facility] Last Admin: 11/02/23 09:08 Dose: Not Given Documented By: NIGHAT Non-Admin Reason: IV Running Sodium Zirconium Cyclosilicate (Sodium Zirconium Cyclosilicate 10 Gm Powd.Pack) 10 gm PO MOWEFR [facility] Last Admin: 11/01/23 22:52 Dose: 10 gm Documented By: BABATUNDE Sucralfate (Sucralfate 1 Gm Tablet) 1 gm PO QID [facility] Last Admin: 11/02/23 11:33 Dose: 1 gm Documented By: NIGHAT Trazodone HCl (Trazodone Hcl 100 Mg Tablet) 100 mg PO BEDTIME [facility] Last Admin: 11/01/23 22:26 Dose: 100 mg Documented By: BABATUNDE Valproic Acid (Valproic Acid 250 Mg Capsule) 1,000 mg PO BID [facility] Last Admin: 11/02/23 11:33 Dose: 1,000 mg Documented By: NIGHAT Vitamin D (Cholecalciferol (Vitamin D3) 25 Mcg Tablet) 50 mcg PO DAILY [facility] Last Admin: 11/02/23 09:09 Dose: 50 mcg Documented By: NIGHAT Labs 11/01/23 14:08 11/01/23 14:08 Labs: Laboratory Results - last 24 hr 10/29/23 11/01/23 11/01/23 08:30 05:22 07:41 MCV MCH MCHC RDW Plt Count MPV Absolute Nucleated RBC Nucleated RBC % (auto) Smear Path Review SEE NOTE Anion Gap Estim Creat Clear Calc Estimated GFR POC Glucose Random Glucose Calcium Total Creatine Kinase Crossmatch See Detail See Detail 11/01/23 11/01/23 11/01/23 14:08 16:27 20:55 MCV 94.6 MCH 31.7 MCHC 33.5 RDW 13.3 Plt Count 196 MPV 12.8 H Absolute Nucleated RBC 0.000 Nucleated RBC % (auto) 0.0 Smear Path Review Anion Gap 14 Estim Creat Clear Calc 14.5 Estimated GFR 10 POC Glucose 120 H 159 H Random Glucose 120 H Calcium 8.7 Total Creatine Kinase 726 H Crossmatch 11/02/23 11/02/23 07:22 11:10 MCV MCH MCHC RDW Plt Count MPV Absolute Nucleated RBC Nucleated RBC % (auto) Smear Path Review Anion Gap Estim Creat Clear Calc Estimated GFR POC Glucose 128 H 180 H Random Glucose Calcium Total Creatine Kinase Crossmatch Assessment and Plan (1) Generalized seizure: Status: Acute (2) Infection due to ESBL-producing Escherichia coli: Status: Acute (3) Acute on chronic anemia: Status: Acute Plan 67F PMH hypertension, chronic diastolic CHF, CKD 4, diabetes, asthma, anemia of chronic disease, GERD with Hx of left frontal craniectomy for glioma, scar tissue being the foci for seizures who has ESBL E.Coli UTI presented with frequent seizures and went into status epilepticus requiring ICU admission. Acute metabolic encephalopathy due to multiple seizures, status epilepticus No seizures >24 hours now Went to ICU 10/30/17, loaded with Keppra, Valproate and PHenytoin Change all seizure medications to PO today monitor for seizures Repeat EEG Brain MRI negative for any acute findings or stroke To do PT eval ESBL UTI DC Ceftriaxone, follow-up cultures On MEropenem Plan to DC on Ertapenem to finish total of 2 week Abx Physical deconditioning Worse than baseline, check PT eval acute on Chronic anemia of chronic disease transfused total of 2 units PRBCs during hospital stay EPO therapy per nephro CKD 4 with chronic metabolic acidosis Continue sodium bicarb Follow-up nephrology, no urgent need for hd Hypertension Amlodipine Hyperlipidemia Statin Diabetes Basal bolus insulin GERD PPI DVT prophylaxis heparin subQ Full code reason for continued hospitalization: Monitor for seizure pending PT evaluation, Midline placement, IV Abx arrangements for outpatient. Quality Stroke Does the patient have a stroke diagnosis?: No VTE Prior VTE?: No VTE Risk Level:: Medical - moderate - high VTE Device Contraindication: Treatment Not Indicated VTE Drug Contraindication: N/A - Med Ordered
--- NOTE | 2023-11-02 13:55 | P.PNNP_ITS ---
Subjective Subjective Date of Service: 11/02/23 Interval history: seen and evaluated this evening confused no reported seizures overnight Physical Exam 2 Vital Signs: Vital Signs: Last Vital Signs Temp 97.6 F 11/02/23 12:00 Pulse 70 11/02/23 12:00 Resp 18 11/02/23 12:00 BP 137/65 11/02/23 12:00 Pulse Ox 100 11/02/23 12:00 O2 Del Method Room Air 11/02/23 12:00 O2 Flow Rate 2 10/31/23 14:00 Oxygen Flow Rate 2 10/31/23 18:28 BMI result Body Mass Index 45.9 cvs: s1s2 RS; cta Abd; soft Objective Data Labs 11/01/23 14:08 11/01/23 14:08 Labs: Laboratory Results - last 24 hr 10/29/23 11/01/23 11/01/23 08:30 05:22 14:08 WBC 16.7 H RBC 2.59 L D Hgb 8.2 L Hct 24.5 L MCV 94.6 MCH 31.7 MCHC 33.5 RDW 13.3 Plt Count 196 MPV 12.8 H Absolute Nucleated RBC 0.000 Nucleated RBC % (auto) 0.0 Smear Path Review SEE NOTE Sodium 142 Potassium 4.7 Chloride 117 H Carbon Dioxide 16 L Anion Gap 14 BUN 87 H Creatinine 4.33 H* Estim Creat Clear Calc 14.5 Estimated GFR 10 POC Glucose Random Glucose 120 H Calcium 8.7 Total Creatine Kinase 726 H Crossmatch See Detail 11/01/23 11/01/23 11/02/23 16:27 20:55 07:22 WBC RBC Hgb Hct MCV MCH MCHC RDW Plt Count MPV Absolute Nucleated RBC Nucleated RBC % (auto) Smear Path Review Sodium Potassium Chloride Carbon Dioxide Anion Gap BUN Creatinine Estim Creat Clear Calc Estimated GFR POC Glucose 120 H 159 H 128 H Random Glucose Calcium Total Creatine Kinase Crossmatch 11/02/23 11:10 WBC RBC Hgb Hct MCV MCH MCHC RDW Plt Count MPV Absolute Nucleated RBC Nucleated RBC % (auto) Smear Path Review Sodium Potassium Chloride Carbon Dioxide Anion Gap BUN Creatinine Estim Creat Clear Calc Estimated GFR POC Glucose 180 H Random Glucose Calcium Total Creatine Kinase Crossmatch Microbiology Microbiology Results: Microbiology 10/27/23 18:46 Urine clean catch - Clean Catch Midstream Urine Culture - Final Escherichia coli Escherichia coli#2 Procedures Date of Service Date of Service: 11/02/23 Assessment & Plan Assessment and plan (1) Cardiorenal syndrome: Status: Acute (2) Acute kidney injury: Status: Acute (3) CKD (chronic kidney disease) stage 3, GFR 30-59 ml/min: Status: Acute Plan 67 Y/F STAGE 4/5 CKD DIABETIC HYPERTENSIVE NEPHROTIC SYNDROME PATIENT WITH RAPID LOSS OF RENAL FUNCTION ( Cr 2.0--> 3.8--> 4.6) suspect prog DN and need to mke prep for [place] 2.0-2.5 ( 05/2022) 3.5-4.5 ( 10/2022) she does NOT have any uremic sxms 3. Nephrotic Syn: c/w DN . hep panel negative, colleen , anca neg, normal complement and FLC acceptable 4. Metabolic Bone Disease of CKD: cont to track CA, Phos, HCO3, PTH and vit D levels and treat accordingly 5. Hypervol: improved on diuretics as outpatient- now not on diuretics echo wnl from 2022 7. HyperK: controlled 8. Anemia: drop in Hb again; being evaluated as to cause of sudden slt drop in Hb w/o evidence of bleeding; s/p prbc tx; chronic anemia d/t Epo def state 9. HTN 10. SZ: w/u and Tx as noted 11. NAGMA: goal is to keep > 20- l cont po NaHCO3 12. . UI: ABx as noted and adjut for adv CKD REC: cont BP meds as noted rule out gib as bun in the 100's likely from this no urgent indications for dialysis today - however she may need it soon Will follow with team Time Spent With Patient Time: Total time managing care of this patient today ____ minutes. Progress Note: Quality Stroke Does the patient have a stroke diagnosis?: No
[2023-11-02] MEDS: Phenytoin Sodium Extended 100 MG CAPSULE PO ×2 (15:53→21:15)
[2023-11-02 16:15] LABS: Glucose, Whole Blood 190 mg/dL (60-115)
[2023-11-02 20:59] LABS: Glucose, Whole Blood 181 mg/dL (60-115)
[2023-11-02] MEDS: traZODone HCL 100 MG TABLET PO (21:14)
--- NOTE | 2023-11-02 23:50 | P.CNID_ITS ---
History of Present Illness Data of Consult Service Date: 11/02/23 Requesting physician: Sang Valdovinos Primary Care Provider: Lucrecia Teixeira MD HPI Reason for consult: urinary tract infection,ESBL UTI [facility] Past Medical History Medical History (Updated 11/02/23 @ 13:56 by Alex Holcomb MD) Acute kidney injury CKD (chronic kidney disease) stage 3, GFR 30-59 ml/min CHF (congestive heart failure) Anemia Brain tumor (benign) Lower extremity edema Pneumonia Asthma Pulmonary nodule HLD (hyperlipidemia) Seizure Acute hypoxemic respiratory failure due to COVID-19 COVID-19 Kidney stone Depression Gastritis Diabetes Family History Family History Father CAD (coronary artery disease) Brother Lung cancer Sister Kidney stone Surgical History Surgical History H/O lithotripsy H/O ureteroscopy H/O cystoscopy S/P ureteral stent placement History of cholecystectomy H/O hernia repair Social History Social History Household Members: Children Housing: Apartment Do you presently have visiting nurse or other home services: Yes ([employer] 4hrs/day everyday) Alcohol intake: former Comment: pt sleeping at this time Patient Tobacco Use Status: Never used Tobacco Smoked in Last 30 Days: No e-Cigarette/Vaping Use: Never Used Use of substances other than those prescribed or required for medical reasons: No Currently Displaying Signs/Symptoms of Drug Intoxication Withdrawal: No Have you been hit, kicked, punched, or otherwise hurt by someone within the past year? If so, by whom?: No Do you feel safe in your current relationship?: No Current Relationship Is there a partner from a previous relationship who is making you feel unsafe now?: No Are you made to feel afraid or neglected: No Advance Directives: Yes Advance Directives on File: Yes Advance Directives Date on File: 12/20/21 Do you have a plan to hurt others: No Plan Recently lost weight without trying: No Eating poorly because of decreased appetite: No Nutrition Risks: On aspiration precautions Patient : No : No service: No Current occupational status: unemployed Meds Allergies Allergy/AdvReac Type Severity Reaction Status Date / Time Egg Derived Allergy Unknown Verified 10/31/23 19:05 Active Medications: Current Medications Acetaminophen (Acetaminophen 325 Mg Tablet) 650 mg PO Q6H PRN PRN Reason: Pain, Mild (Pain Scale 1-3), fever or headache Last Admin: 11/02/23 21:16 Dose: 650 mg Amlodipine Besylate (Amlodipine Besylate 10 Mg Tablet) 10 mg PO DAILY [facility]; Protocol Last Admin: 11/02/23 09:09 Dose: 10 mg Aspirin (Aspirin Enteric Coated 81 Mg Tablet.) 81 mg PO DAILY [facility] Last Admin: 11/02/23 09:09 Dose: 81 mg Atorvastatin Calcium (Atorvastatin Calcium 80 Mg Tablet) 80 mg PO DAILY [facility] Last Admin: 11/02/23 09:09 Dose: 80 mg Calcium Carbonate (Calcium Carbonate 750 Mg Tab.Chew) 750 mg PO Q4H PRN PRN Reason: Heartburn Fentanyl (Fentanyl Citrate/Pf 100 Mcg/2 Ml Vial) 25 mcg IVPUSH Q6H PRN; Protocol PRN Reason: Pain, Moderate(Pain Scale 4-6) Ferrous Sulfate (Ferrous Sulfate 324 Mg Tablet.) 324 mg PO DAILY [facility] Last Admin: 11/02/23 09:09 Dose: 324 mg Hydralazine HCl (Hydralazine Hcl 20 Mg/Ml Vial) 10 mg IVPUSH Q6H PRN; Protocol PRN Reason: sbp > 180 Meropenem 500 mg/ Sodium (Chloride) 50 mls @ 100 mls/hr IV Q12H [facility] Last Infusion: 11/02/23 12:06 Dose: Infused Levetiracetam (Levetiracetam 500 Mg Tablet) 500 mg PO BID [facility] Last Admin: 11/02/23 21:14 Dose: 500 mg Lorazepam (Lorazepam 2 Mg/Ml Vial) 2 mg IVPUSH Q4H PRN PRN Reason: Seizures Last Admin: 10/31/23 07:00 Dose: 2 mg Magnesium Hydroxide (Milk Of Magnesia 30 Ml Oral.Susp) 30 ml PO DAILY PRN PRN Reason: Constipation Melatonin (Melatonin 3 Mg Tablet) 6 mg PO BEDTIME PRN PRN Reason: Insomnia Last Admin: 11/01/23 22:27 Dose: 6 mg Omeprazole (Omeprazole 40 Mg Capsule.) 40 mg PO BID@0630,1630 [facility] Last Admin: 11/02/23 15:54 Dose: 40 mg Ondansetron HCl (Ondansetron Hcl 4 Mg/2 Ml Vial) 4 mg IVPUSH Q8H PRN PRN Reason: Nausea and Vomiting Phenytoin Sodium (Phenytoin Sodium Extended 100 Mg Capsule) 100 mg PO TID [facility] Last Admin: 11/02/23 21:15 Dose: 100 mg Sodium Bicarbonate (Sodium Bicarbonate 650 Mg Tablet) 650 mg PO QID [facility] Last Admin: 11/02/23 21:15 Dose: 650 mg Sodium Chloride (0.9 % Sodium Chloride Flush 3 Ml Syringe) 3 ml IVFLUSH QSHIFT [facility] Last Admin: 11/02/23 21:22 Dose: 3 ml Sodium Zirconium Cyclosilicate (Sodium Zirconium Cyclosilicate 10 Gm Powd.Pack) 10 gm PO MOWEFR [facility] Last Admin: 11/01/23 22:52 Dose: 10 gm Sucralfate (Sucralfate 1 Gm Tablet) 1 gm PO QID [facility] Last Admin: 11/02/23 21:14 Dose: 1 gm Trazodone HCl (Trazodone Hcl 100 Mg Tablet) 100 mg PO BEDTIME [facility] Last Admin: 11/02/23 21:14 Dose: 100 mg Valproic Acid (Valproic Acid 250 Mg Capsule) 1,000 mg PO BID [facility] Last Admin: 11/02/23 21:14 Dose: 1,000 mg Vitamin D (Cholecalciferol (Vitamin D3) 25 Mcg Tablet) 50 mcg PO DAILY [facility] Last Admin: 11/02/23 09:09 Dose: 50 mcg Home Medications ?Medication ?Instructions ?Recorded ?Confirmed ?Last Taken ?Type blood sugar diagnostic (FreeStyle 03/28/20 09/09/22 Unknown History Lite Strips) blood-glucose meter (FreeStyle 03/28/20 09/09/22 Unknown History [place] Lite kit) lancets 28 gauge (FreeStyle 03/28/20 09/09/22 Unknown History Lancets) omeprazole 40 mg capsule,delayed 40 mg PO BID@0630,1630 10/02/21 10/27/23 10/26/23 History release blood pressure test kit-large #1 ea 10/12/21 09/09/22 Unknown History atorvastatin 80 mg tablet 1 tab PO DAILY 12/20/21 10/27/23 10/26/23 History nebulizers 01/20/22 09/09/22 Unknown History amlodipine 10 mg tablet 10 mg PO DAILY 05/29/22 10/27/23 10/26/23 History aspirin 81 mg tablet,delayed 81 mg PO DAILY 05/29/22 10/27/23 10/26/23 History release losartan 100 mg tablet 100 mg PO DAILY 05/29/22 10/27/23 10/26/23 History sucralfate 1 gram tablet 1 g PO QID 05/29/22 10/27/23 10/26/23 History lancets 33 gauge (TRUEplus Lancets) #100 ea 06/07/22 09/09/22 Unknown History trazodone 50 mg tablet 100 mg PO BEDTIME 06/07/22 10/27/23 10/26/23 History cholecalciferol (vitamin D3) 50 50 mcg PO DAILY 11/24/22 10/27/23 10/26/23 History mcg (2,000 unit) tablet ferrous gluconate 324 mg (38 mg 324 mg PO DAILY 11/24/22 10/27/23 10/26/23 History iron) tablet furosemide 40 mg tablet 40 mg PO BID 11/24/22 10/27/23 10/26/23 History insulin aspart 6 - 8 unit subcut TID 10/27/23 10/27/23 10/26/23 History (niacinamide)(U-100) 100 unit/mL(3 mL) subcutaneous pen (Fiasp FlexTouch U-100 Insulin) insulin glargine 100 unit/mL (3 30 unit subcut BID 10/27/23 10/27/23 10/26/23 History mL) subcutaneous pen (Basaglar KwikPen U-100 Insulin) Physical Exam 2 Vital Signs: Vital Signs: Last Vital Signs Temp 97.0 F 11/02/23 19:19 Pulse 76 11/02/23 19:19 Resp 17 11/02/23 19:19 BP 150/72 H 11/02/23 19:19 Pulse Ox 100 11/02/23 19:19 O2 Del Method Room Air 11/02/23 19:19 O2 Flow Rate 2 10/31/23 14:00 Oxygen Flow Rate 2 10/31/23 18:28 BMI result Body Mass Index 45.9 Results Labs 11/01/23 14:08 11/01/23 14:08 Microbiology Microbiology Results: Microbiology 10/27/23 18:46 Urine clean catch - Clean Catch Midstream Urine Culture - Final Escherichia coli Escherichia coli#2
[2023-11-03] VITALS: BP 170/80; PULSE 78; RESP 20; TEMP 36.1; O2SAT 99
--- NOTE | 2023-11-03 00:24 | W.PM.IDCN ---
History of Present Illness Data of Consult Service Date: 11/02/23 Requesting physician: Sang Valdovinos Primary Care Provider: Lucrecia Teixeira MD HPI Reason for consult: esbl e coli urine She presents with status epilepticus. She was found to have E coli ESBL UTI. She is better on day 3 Merem. Review of Systems Review of Systems: Yes all other systems are reviewed and are negative [facility] Past Medical History Medical History Acute kidney injury CKD (chronic kidney disease) stage 3, GFR 30-59 ml/min CHF (congestive heart failure) Anemia Brain tumor (benign) Lower extremity edema Pneumonia Asthma Pulmonary nodule HLD (hyperlipidemia) Seizure Acute hypoxemic respiratory failure due to COVID-19 COVID-19 Kidney stone Depression Gastritis Diabetes Family History Family History Father CAD (coronary artery disease) Brother Lung cancer Sister Kidney stone Family history: reviewed and not pertinent Surgical History Surgical History H/O lithotripsy H/O ureteroscopy H/O cystoscopy S/P ureteral stent placement History of cholecystectomy H/O hernia repair Social History Social History Household Members: Children Housing: Apartment Do you presently have visiting nurse or other home services: Yes ([employer] 4hrs/day everyday) Alcohol intake: former Comment: pt sleeping at this time Patient Tobacco Use Status: Never used Tobacco Smoked in Last 30 Days: No e-Cigarette/Vaping Use: Never Used Use of substances other than those prescribed or required for medical reasons: No Currently Displaying Signs/Symptoms of Drug Intoxication Withdrawal: No Have you been hit, kicked, punched, or otherwise hurt by someone within the past year? If so, by whom?: No Do you feel safe in your current relationship?: No Current Relationship Is there a partner from a previous relationship who is making you feel unsafe now?: No Are you made to feel afraid or neglected: No Advance Directives: Yes Advance Directives on File: Yes Advance Directives Date on File: 12/20/21 Do you have a plan to hurt others: No Plan Recently lost weight without trying: No Eating poorly because of decreased appetite: No Nutrition Risks: On aspiration precautions Patient : No : No service: No Current occupational status: unemployed Meds Allergies Allergy/AdvReac Type Severity Reaction Status Date / Time Egg Derived Allergy Unknown Verified 10/31/23 19:05 Active Medications: Current Medications Acetaminophen (Acetaminophen 325 Mg Tablet) 650 mg PO Q6H PRN PRN Reason: Pain, Mild (Pain Scale 1-3), fever or headache Last Admin: 11/02/23 21:16 Dose: 650 mg Amlodipine Besylate (Amlodipine Besylate 10 Mg Tablet) 10 mg PO DAILY [facility]; Protocol Last Admin: 11/02/23 09:09 Dose: 10 mg Aspirin (Aspirin Enteric Coated 81 Mg Tablet.) 81 mg PO DAILY [facility] Last Admin: 11/02/23 09:09 Dose: 81 mg Atorvastatin Calcium (Atorvastatin Calcium 80 Mg Tablet) 80 mg PO DAILY [facility] Last Admin: 11/02/23 09:09 Dose: 80 mg Calcium Carbonate (Calcium Carbonate 750 Mg Tab.Chew) 750 mg PO Q4H PRN PRN Reason: Heartburn Fentanyl (Fentanyl Citrate/Pf 100 Mcg/2 Ml Vial) 25 mcg IVPUSH Q6H PRN; Protocol PRN Reason: Pain, Moderate(Pain Scale 4-6) Ferrous Sulfate (Ferrous Sulfate 324 Mg Tablet.) 324 mg PO DAILY [facility] Last Admin: 11/02/23 09:09 Dose: 324 mg Hydralazine HCl (Hydralazine Hcl 20 Mg/Ml Vial) 10 mg IVPUSH Q6H PRN; Protocol PRN Reason: sbp > 180 Levetiracetam (Levetiracetam 500 Mg Tablet) 500 mg PO BID [facility] Last Admin: 11/02/23 21:14 Dose: 500 mg Lorazepam (Lorazepam 2 Mg/Ml Vial) 2 mg IVPUSH Q4H PRN PRN Reason: Seizures Last Admin: 10/31/23 07:00 Dose: 2 mg Magnesium Hydroxide (Milk Of Magnesia 30 Ml Oral.Susp) 30 ml PO DAILY PRN PRN Reason: Constipation Melatonin (Melatonin 3 Mg Tablet) 6 mg PO BEDTIME PRN PRN Reason: Insomnia Last Admin: 11/01/23 22:27 Dose: 6 mg Omeprazole (Omeprazole 40 Mg Capsule.) 40 mg PO BID@0630,1630 [facility] Last Admin: 11/02/23 15:54 Dose: 40 mg Ondansetron HCl (Ondansetron Hcl 4 Mg/2 Ml Vial) 4 mg IVPUSH Q8H PRN PRN Reason: Nausea and Vomiting Phenytoin Sodium (Phenytoin Sodium Extended 100 Mg Capsule) 100 mg PO TID [facility] Last Admin: 11/02/23 21:15 Dose: 100 mg Sodium Bicarbonate (Sodium Bicarbonate 650 Mg Tablet) 650 mg PO QID [facility] Last Admin: 11/02/23 21:15 Dose: 650 mg Sodium Chloride (0.9 % Sodium Chloride Flush 3 Ml Syringe) 3 ml IVFLUSH QSHIFT [facility] Last Admin: 11/02/23 21:22 Dose: 3 ml Sodium Zirconium Cyclosilicate (Sodium Zirconium Cyclosilicate 10 Gm Powd.Pack) 10 gm PO MOWEFR [facility] Last Admin: 11/01/23 22:52 Dose: 10 gm Sucralfate (Sucralfate 1 Gm Tablet) 1 gm PO QID [facility] Last Admin: 11/02/23 21:14 Dose: 1 gm Trazodone HCl (Trazodone Hcl 100 Mg Tablet) 100 mg PO BEDTIME [facility] Last Admin: 11/02/23 21:14 Dose: 100 mg Valproic Acid (Valproic Acid 250 Mg Capsule) 1,000 mg PO BID [facility] Last Admin: 11/02/23 21:14 Dose: 1,000 mg Vitamin D (Cholecalciferol (Vitamin D3) 25 Mcg Tablet) 50 mcg PO DAILY [facility] Last Admin: 11/02/23 09:09 Dose: 50 mcg Home Medications ?Medication ?Instructions ?Recorded ?Confirmed ?Last Taken ?Type blood sugar diagnostic (FreeStyle 03/28/20 09/09/22 Unknown History Lite Strips) blood-glucose meter (FreeStyle 03/28/20 09/09/22 Unknown History Cascade Lite kit) lancets 28 gauge (FreeStyle 03/28/20 09/09/22 Unknown History Lancets) omeprazole 40 mg capsule,delayed 40 mg PO BID@0630,1630 10/02/21 10/27/23 10/26/23 History release blood pressure test kit-large #1 ea 10/12/21 09/09/22 Unknown History atorvastatin 80 mg tablet 1 tab PO DAILY 12/20/21 10/27/23 10/26/23 History nebulizers 01/20/22 09/09/22 Unknown History amlodipine 10 mg tablet 10 mg PO DAILY 05/29/22 10/27/23 10/26/23 History aspirin 81 mg tablet,delayed 81 mg PO DAILY 05/29/22 10/27/23 10/26/23 History release losartan 100 mg tablet 100 mg PO DAILY 05/29/22 10/27/23 10/26/23 History sucralfate 1 gram tablet 1 g PO QID 05/29/22 10/27/23 10/26/23 History lancets 33 gauge (TRUEplus Lancets) #100 ea 06/07/22 09/09/22 Unknown History trazodone 50 mg tablet 100 mg PO BEDTIME 06/07/22 10/27/23 10/26/23 History cholecalciferol (vitamin D3) 50 50 mcg PO DAILY 11/24/22 10/27/23 10/26/23 History mcg (2,000 unit) tablet ferrous gluconate 324 mg (38 mg 324 mg PO DAILY 11/24/22 10/27/23 10/26/23 History iron) tablet furosemide 40 mg tablet 40 mg PO BID 11/24/22 10/27/23 10/26/23 History insulin aspart 6 - 8 unit subcut TID 10/27/23 10/27/23 10/26/23 History (niacinamide)(U-100) 100 unit/mL(3 mL) subcutaneous pen (Fiasp FlexTouch U-100 Insulin) insulin glargine 100 unit/mL (3 30 unit subcut BID 10/27/23 10/27/23 10/26/23 History mL) subcutaneous pen (Basaglar KwikPen U-100 Insulin) Physical Exam Vital Signs: Vital Signs: Last Vital Signs Temp 96.9 F 11/03/23 00:00 Pulse 78 11/03/23 00:00 Resp 20 11/03/23 00:00 BP 170/80 H 11/03/23 00:00 Pulse Ox 99 11/03/23 00:00 O2 Del Method Room Air 11/03/23 00:00 O2 Flow Rate 2 10/31/23 14:00 Oxygen Flow Rate 2 10/31/23 18:28 BMI result Body Mass Index 45.9 Const: General: cooperative HEENT: Head: Yes normal to inspection Face and sinus: Yes normal facial exam Mouth: Normal oral and palatal mucosa present Teeth and gingiva: dentition normal Eyes: General: appearance normal, both eyes and all related structures Pupils: Equal, round and reactive pupils present Resp: Effort & Inspection: normal respiratory effort Cardio: Rate: regular rate Rhythm: regular rhythm GI: Palpation (GI): Soft to palpation and nontender : General: Yes no CVA tenderness Back/Spine/Pelvis: Back: no CVA tenderness Skin: General skin exam: no rashes or lesions noted Neuro: General: moves all extremities Cranial nerves: Yes Equal, round and reactive pupils present Extrem: General: Yes normal to inspection Psych: Appearance: grossly normal Results Labs 11/01/23 14:08 11/01/23 14:08 Microbiology Microbiology Results: Microbiology 10/27/23 18:46 Urine clean catch - Clean Catch Midstream Urine Culture - Final Escherichia coli Escherichia coli#2 Assessment and Plan (1) CKD (chronic kidney disease) stage 3, GFR 30-59 ml/min: Status: Acute (2) Acute kidney injury: Status: Acute (3) Infection due to ESBL-producing Escherichia coli: Status: Acute (4) Generalized seizure: Status: Acute Plan Seizures may have been triggered by UTI. She feels better now,day 3 Merem She has stage 4-5 CKD. Ertapenem .5 g daily. IV for seven days.
[2023-11-03 03:35] VITALS: BP 160/76; PULSE 78; RESP 20; TEMP 36.1; O2SAT 99
[2023-11-03 04:39] LABS: OBS Int Ctl Valid YES; OBS1 POSITIVE (NEGATIVE)
[2023-11-03 05:25] VITALS: BMI 44.2
[2023-11-03] MEDS: Omeprazole 40 MG CAPSULE.DR PO ×2 (05:38→16:41)
[2023-11-03 06:06] LABS: Hematocrit 24.3 % (37.0-47.0); Hemoglobin 8.1 g/dl (12.0-16.0); Mean Corpuscular HGB Conc 33.3 g/dl (31.0-35.0); Mean Corpuscular Hemoglobin 31.4 pg (27.0-33.0); Mean Corpuscular Volume 94.2 fL (80.0-98.0); Mean Platelet Volume 12.9 fL (9.4-12.3); PLT CLUMP 1; Red Blood Count 2.58 X10*6/uL (4.20-5.50); Red Cell Distribution Width 13.2 % (11.0-16.0)
[2023-11-03 06:07] LABS: White Blood Count 14.3 X10*3/uL (4.8-10.8)
[2023-11-03 06:12] LABS: Valproate < 12.5 mcg/mL (50.0-100.0)
[2023-11-03 06:13] LABS: Anion Gap 13 (12-20); Blood Urea Nitrogen 78 mg/dL (9-16); Calcium 8.3 mg/dL (8.4-10.2); Carbon Dioxide 17 mmol/L (22-29); Chloride 112 mmol/L (96-108); Creatinine Clr Calc Pharmacy 15.7; Estimated Glomerular Filt Rate 11; Glucose Random 124 mg/dL (60-115); Lactate Dehydrogenase 197 U/L (122-220); Sodium 138 mmol/L (135-145)
[2023-11-03 06:28] LABS: Haptoglobin 356 mg/dL (63-273)
[2023-11-03 07:18] VITALS: BP 181/82; PULSE 80; RESP 18; TEMP 37.1; O2SAT 100
[2023-11-03 07:33] LABS: Glucose, Whole Blood 122 mg/dL (60-115)
[2023-11-03] MEDS: Cholecalciferol (Vitamin D3) 25 MCG TABLET 50 MCG PO (07:49)
[2023-11-03] MEDS: Sodium Bicarbonate 650 MG TABLET PO ×3 (07:49→16:41)
[2023-11-03] MEDS: Phenytoin Sodium Extended 100 MG CAPSULE PO ×2 (07:49→13:26)
[2023-11-03] MEDS: amLODIPine Besylate 10 MG TABLET PO (07:50)
[2023-11-03] MEDS: levETIRAcetam 500 MG TABLET PO (07:50)
[2023-11-03] MEDS: Atorvastatin Calcium 80 MG TABLET PO (07:50)
[2023-11-03] MEDS: Sucralfate 1 GM TABLET PO ×3 (07:50→16:41)
[2023-11-03] MEDS: Ferrous Sulfate 324 MG TABLET.DR PO (07:50)
[2023-11-03] MEDS: Aspirin Enteric Coated 81 MG TABLET.DR PO (07:50)
[2023-11-03] MEDS: Valproic Acid 250 MG CAPSULE 1000 MG PO (07:51)
[2023-11-03] MEDS: Losartan Potassium 50 MG TABLET PO (07:55)
[2023-11-03] MEDS: Furosemide 40 MG TABLET PO ×2 (07:55→16:41)
[2023-11-03] MEDS: 0.9 % Sodium Chloride Flush 3 ML SYRINGE IVFLUSH ×2 (08:03→14:20)
[2023-11-03 11:21] VITALS: BP 166/84; PULSE 82; RESP 20; TEMP 37; O2SAT 97
[2023-11-03 11:21] LABS: Glucose, Whole Blood 132 mg/dL (60-115)
[2023-11-03] MEDS: Acetaminophen 325 MG TABLET 650 MG PO (13:25)
--- NOTE | 2023-11-03 13:52 | P.PNNP_ITS ---
Subjective Subjective Date of Service: 11/03/23 Interval history: seen and evaluated confused no reported seizures overnight Physical Exam 2 Vital Signs: Vital Signs: Last Vital Signs Temp 98.6 F 11/03/23 11:21 Pulse 82 11/03/23 11:21 Resp 20 11/03/23 11:21 BP 166/84 H 11/03/23 11:21 Pulse Ox 97 11/03/23 11:21 O2 Del Method Room Air 11/03/23 11:21 O2 Flow Rate 2 10/31/23 14:00 Oxygen Flow Rate 2 10/31/23 18:28 BMI result Body Mass Index 44.2 cvs: s1s2 RS; cta ABd; soft Objective Data Labs 11/03/23 05:36 11/03/23 05:36 Labs: Laboratory Results - last 24 hr 11/02/23 11/02/23 11/03/23 16:11 20:54 04:21 WBC RBC Hgb Hct MCV MCH MCHC RDW Plt Count MPV Absolute Nucleated RBC Nucleated RBC % (auto) Sodium Potassium Chloride Carbon Dioxide Anion Gap BUN Creatinine Estim Creat Clear Calc Estimated GFR POC Glucose 190 H 181 H Random Glucose Haptoglobin Calcium Lactate Dehydrogenase Stool Occult Blood POSITIVE Valproic Acid 11/03/23 11/03/23 11/03/23 05:36 07:20 11:10 WBC 14.3 H RBC 2.58 L Hgb 8.1 L Hct 24.3 L MCV 94.2 MCH 31.4 MCHC 33.3 RDW 13.2 Plt Count TNP MPV 12.9 H Absolute Nucleated RBC 0.000 Nucleated RBC % (auto) 0.0 Sodium 138 Potassium 4.0 Chloride 112 H Carbon Dioxide 17 L Anion Gap 13 BUN 78 H Creatinine 4.09 H* Estim Creat Clear Calc 15.7 Estimated GFR 11 POC Glucose 122 H 132 H Random Glucose 124 H Haptoglobin 356 H Calcium 8.3 L Lactate Dehydrogenase 197 Stool Occult Blood Valproic Acid < 12.5 L Microbiology Microbiology Results: Microbiology 10/27/23 18:46 Urine clean catch - Clean Catch Midstream Urine Culture - Final Escherichia coli Escherichia coli#2 Procedures Date of Service Date of Service: 11/03/23 Assessment & Plan Assessment and plan (1) CKD (chronic kidney disease) stage 3, GFR 30-59 ml/min: Status: Acute (2) Acute kidney injury: Status: Acute (3) Infection due to ESBL-producing Escherichia coli: Status: Acute Plan 67 Y/F STAGE 4/5 CKD DIABETIC HYPERTENSIVE NEPHROTIC SYNDROME PATIENT WITH RAPID LOSS OF RENAL FUNCTION ( Cr 2.0--> 3.8--> 4.6) 1. suspect prog DN and need to make prep for [employer] 2.0-2.5 ( 05/2022) 3.5-4.5 ( 10/2022) she does NOT have any uremic sxms 3. Nephrotic Syn: c/w DN . hep panel negative, colleen , anca neg, normal complement and FLC acceptable 4. Metabolic Bone Disease of CKD: cont to track CA, Phos, HCO3, PTH and vit D levels and treat accordingly 5. Hypervol: improved on diuretics as outpatient- now not on diuretics echo wnl from 2022 7. HyperK: controlled on lokelma mwf 8. Anemia: drop in Hb again; being evaluated as to cause of sudden slt drop in Hb w/o evidence of bleeding; s/p prbc tx; chronic anemia d/t Epo def state 9. HTN 10. SZ: w/u and Tx as noted 11. NAGMA: goal is to keep > 20- cont po NaHCO3 12. . UI: ABx as noted and adjut for adv CKD REC: cont BP meds as noted rule out gib as bun in the 100's likely from this no urgent indications for dialysis today - however she may need it soon recommend guerrero for abx Will follow with team Time Spent With Patient Time: Total time managing care of this patient today ____ minutes. Progress Note: Quality Stroke Does the patient have a stroke diagnosis?: No
[2023-11-03] MEDS: LORazepam 2 MG/ML VIAL 1 MG IVPUSH (14:20)
--- NOTE | 2023-11-03 15:47 | HO.MIDLINE ---
Midline Insertion MIDLINE INSERTION Diagnosis: UTI Indication: 2 weeks antibiotic Pertinent Labs: Reviewed Technique: Using sterile technique including cap and mask, glove and drape, the right arm was prepped and draped in the usual sterile fashion of full barrier technique with CHG. Using ultrasound guidance, the right basilic vein access was obtained in a single attempt by this RN. a 20 guage 8 cm midline NON-PASV midline was positioned. The procedure was performed in . Ultrasound was used to document vein patency and for needle entry. A formal ultrasound picture was recorded. [employer] has released the line for use and it is currently dressed with a StatLock, Tegaderm, and CHG disc. Verification has been performed for blood return and line patency. Arm Circumference: 36 cm Equipment: Bard PowerGlide Midline Catheter Catheter Type: 20 guage 8 cm Non-PASV Lot #: [id number]
--- NOTE | 2023-11-03 16:02 | P.DS_ITS ---
DS: Providers Provider Date of Service: 11/03/23 Date of admission: 10/27/23 21:58 Date of discharge: 11/03/23 Primary care physician: Lucrecia Teixeira MD Consults: 10/27/23 21:58 Consult to Nephrology Routine Consulting Provider: Hernan Meehan Reason for consultation: Seizures x7, no longer on meds, CKD4 w/worsening BUN Consult to Neurology Routine Consulting Provider: [facility] Reason for consultation: Seizures x7, no longer on meds, CKD4 11/02/23 15:36 Consult to Infectious Diseases Routine Consulting Provider: [facility] [place] [facility] Reason for consultation: ESBL E.Coli for advice DS: Diagnosis Discharge Diagnosis (1) CKD (chronic kidney disease) stage 3, GFR 30-59 ml/min: Status: Acute (2) Acute kidney injury: Status: Acute (3) Infection due to ESBL-producing Escherichia coli: Status: Acute (4) Acute on chronic anemia: Status: Acute (5) Generalized seizure: Status: Acute (6) Recurrent seizures: Status: Acute DS: Summary Hospital Course Hospital Course: The patient had long and complicated hospital stay. for full details please return to EMR. Admission note HPI Pt is a 67-year-old female with a PMH significant for?HTN, HFpEF, CKD 4, insulin-dependent type 2 diabetes, asthma, anemia of chronic disease, and GERD who presents to the ED after 4 brief witnessed seizures with generalized tonic- clonic movements at home and 2 subsequent seizures witnessed by EMS. Patient had a benign tumor removed 3 years ago with seizures noted after surgical procedure. Previously was on unknown antiseizure medication which were then stopped 6 months earlier by her PCP due to worsening kidney function. Pt is obtunded and postictal at time of interview and exam and HPI is obtained primarily through chart and provider review as well as family who is at bedside. Last reported seizure activity was approximately 2-1/2 years ago. Patient apparently has been in her normal state of health without recent illness up until this morning at 07:30 when seizure activity was witnessed by family.? Daughter reports patient has been primarily asleep and nonverbal since seizure activity and subsequent treatment with Ativan. In the ED pt was hypertensive up to 184/75 and mildly tachycardic up to 93. Labs were significant for leukocytosis of 16.6, H&H 7.8/23.8, BUN 121, creatinine 4.98, and serial troponins 32.7 and 30.2. UA consistent with acute UTI. Tested negative for flu, RSV, and COVID. CXR showed no acute cardiopulmonary disease. CT?of head showed no acute intracranial abnormality but revealed s/p left frontal craniotomy defect. EKG demonstrated normal sinus rhythm without evidence of significant ST elevations or depressions. Pt was treated with lorazepam 2 mg IV x2 doses and Keppra 1500 mg IV. Pt will be admitted to the hospital treatment and further evaluation of acute encephalopathy in the setting of persistent seizure activity. Hospital course - Acute metabolic encephalopathy due to multiple seizures, status epilepticus The patient was primarly started on Keppra but had seizures so Valproate was added but did not control it so she ended up having seizure attack with respiratory distress and went to ICU on 10/30/17 and loaded with PHenytoin at that point with good response as no seizure noticed for >48 hours as the patient tolerated oral Keppra, Valproate and PHenytoin. Brain MRI negative for any acute findings or stroke. Valproate level was checked and came back low after the patient left the hospital so i discussed with Neurologist Dr Rodriguez who saw her during the hospital stay and suggested to discontinue Valproate and keep her on KEppra and PHenytoin only for now. I called the family multiple times on the numbers provided and left a message about discontinuing the Depakote. Also sent that to [facility] pharmacy where the script went to discontinue it. - ESBL UTI The patient was started on Ceftriaxone for UTI, Urine cultures grew ESBL UTI. evaluated by ID who recommended 1 more week of Ertapenem upon discharge. Midline placed and will be followed by [facility] at home. - Physical deconditioning PT evaluated the patient and recommended SNF but family feels more comfortable taking her home. - acute on Chronic anemia of chronic disease transfused total of 2 units PRBCs during hospital stay. EPO therapy per nephrology. - CKD 4 with chronic metabolic acidosis started sodium bicarb and will Follow-up nephrology, no urgent need for hd but she might need it in future. Discharge plan Continue ERtapenem for 1 more week Take Valproic acid, Keppra and Phenytoin as prescribed To follow with Neurology as outpatient Continue Bicarbonate as prescribed and follow with nephrology as outpatient To do physical therapy at home Decrease Lantus insulin to 30 units in the morning only and monitor your blood sugar for the next week. Discuss readings with PCP for further adjustments. Time Attestation Discharge Coordination Time (in mins): 44 Quality: Safe Use of Opioids Does Pt have an Active Cancer Diagnosis on the Problem List?: No Quality: Stroke Does the patient have a stroke diagnosis?: No Physical Exam Vital Signs: Vital Signs: Last Vital Signs Temp 98.6 F 11/03/23 11:21 Pulse 82 11/03/23 11:21 Resp 20 11/03/23 11:21 BP 166/84 H 11/03/23 11:21 Pulse Ox 97 11/03/23 11:21 O2 Del Method Room Air 11/03/23 11:21 O2 Flow Rate 2 10/31/23 14:00 Oxygen Flow Rate 2 10/31/23 18:28 BMI result Body Mass Index 44.2 Const: Other: Constitutional : Awake, not in distress, gets anxious easily Neck : Normal inspection, Supple Cardiovascular : RRR, no JVP, no lower extremity edema Respiratory : good bilateral air entry, no crackles Gastrointestinal: soft, lax, Normal bowel sounds, Non tender Skin : Warm, Dry Neurological : Alert & oriented to date but convinced she is home, No focal deficit , CN 2-12 within normal DS: Data Data Completed and Pending Completed studies during hospitalization [Text1]: Procedures Dilation of Right Ureter with Intraluminal Device, Via Natural or Artificial Opening Endoscopic (05/29/22) Extirpation of Matter from Right Ureter, Via Natural or Artificial Opening Endoscopic (05/29/22) Fluoroscopy of Right Kidney, Ureter and Bladder (10/02/21) Fluoroscopy of Right Kidney, Ureter and Bladder using Low Osmolar Contrast (05/29/22) Introduction of Remdesivir Anti-infective into Peripheral Vein, Percutaneous Approach, [employer] (03/28/20) Transfusion of Nonautologous Red Blood Cells into Peripheral Vein, Percutaneous Approach (11/24/22) Labs on day of discharge: Laboratory Results - last 24 hr 11/02/23 11/02/23 11/03/23 16:11 20:54 04:21 WBC RBC Hgb Hct MCV MCH MCHC RDW Plt Count MPV Absolute Nucleated RBC Nucleated RBC % (auto) Sodium Potassium Chloride Carbon Dioxide Anion Gap BUN Creatinine Estim Creat Clear Calc Estimated GFR POC Glucose 190 H 181 H Random Glucose Haptoglobin Calcium Lactate Dehydrogenase Stool Occult Blood POSITIVE Valproic Acid 11/03/23 11/03/23 11/03/23 05:36 07:20 11:10 WBC 14.3 H RBC 2.58 L Hgb 8.1 L Hct 24.3 L MCV 94.2 MCH 31.4 MCHC 33.3 RDW 13.2 Plt Count TNP MPV 12.9 H Absolute Nucleated RBC 0.000 Nucleated RBC % (auto) 0.0 Sodium 138 Potassium 4.0 Chloride 112 H Carbon Dioxide 17 L Anion Gap 13 BUN 78 H Creatinine 4.09 H* Estim Creat Clear Calc 15.7 Estimated GFR 11 POC Glucose 122 H 132 H Random Glucose 124 H Haptoglobin 356 H Calcium 8.3 L Lactate Dehydrogenase 197 Stool Occult Blood Valproic Acid < 12.5 L Imaging MRI - head: Radiologist's impression: ITS Impressions Head CT 10/27/23 14:57 IMPRESSION: No acute intracranial abnormality. Electronically signed by: Jakob Newton DO 10/27/2023 05:34 PM EDT RP Chest X-Ray 10/27/23 15:08 IMPRESSION: No acute cardiopulmonary disease. Electronically signed by: Jakob Newton DO 10/27/2023 04:11 PM EDT RP Brain MRI 10/31/23 14:30 IMPRESSION: Significantly limited study with motion artifacts. Imaging findings most indicative for status epilepticus affecting the left cerebral hemisphere with right-sided crossed cerebellar diaschisis. Electronically signed by: Landon Bragg MD 10/31/2023 03:41 PM EDT RP Venous Duplex 10/31/23 21:39 IMPRESSION: No evidence of deep venous thrombosis involving the right upper extremity. Subcutaneous edema Electronically signed by: Demario Tsai MD 10/31/2023 10:59 PM EDT RP Discharge Plan Discharge Anticipated Discharge Date/Time: 11/03/23 15:31 Patient Disposition: Home Health Service Discharge Diagnosis: Status epilepticus ESBL E.Coli UTI Kidney injury Referrals: [facility] [Outside] - 1 Week Lucrecia Teixeira MD [Primary Care Provider] - 1 Week Discharge Medications: New levetiracetam 500 mg Tablet 500 mg PO BID Qty: 60 2RF phenytoin sodium extended [Dilantin Extended] 100 mg Capsule 100 mg PO TID Qty: 90 2RF sodium bicarbonate 650 mg Tablet 650 mg PO BID Qty: 60 2RF Continued (DME) FreeStyle Lite Strips Strip MISCELLANEOUS QID (DME) blood-glucose meter [FreeStyle [place] Lite] Kit MISCELLANEOUS BID (DME) lancets [FreeStyle Lancets] 28 gauge misc 1 gauge topical BID acetaminophen 500 mg tablet 500 mg PO Q6H PRN (Reason: fever or pain) Qty: 14 0RF omeprazole 40 mg capsule,delayed release(DR/EC) 40 mg PO BID@0630,1630 atorvastatin 80 mg tablet 1 tab PO DAILY sucralfate 1 gram tablet 1 g PO QID aspirin 81 mg tablet,delayed release (DR/EC) 81 mg PO DAILY amlodipine 10 mg tablet 10 mg PO DAILY losartan 100 mg tablet 100 mg PO DAILY Fiasp FlexTouch U-100 Insulin 100 unit/mL (3 mL) insulin pen 6 - 8 unit subcut TID furosemide 40 mg tablet 40 mg PO BID ferrous gluconate 324 mg (38 mg iron) tablet 324 mg PO DAILY cholecalciferol (vitamin D3) 50 mcg (2,000 unit) Tablet 50 mcg PO DAILY Lokelma 10 gram Powder In Packet 10 g PO MOWEFR Qty: 30 0RF (DME) blood pressure test kit-large Kit See Rx Instructions .ROUTE DAILY Qty: 1 Rx Instructions: As directed (DME) nebulizers Misc See Rx Instructions .Route Rx Instructions: As directed trazodone 50 mg tablet 100 mg PO BEDTIME (DME) lancets [TRUEplus Lancets] 33 gauge misc See Rx Instructions .ROUTE BID Qty: 100 Rx Instructions: As directed Changed insulin glargine [Basaglar KwikPen U-100 Insulin] 100 unit/mL (3 mL) insulin pen 30 unit subcut DAILY Qty: 15 1RF Discharge Orders: Discharge Order (Routine); Ordered 11/03/23 Ordered By: Sang Valdovinos Diet: Advance to usual diet Activity on Discharge: As tolerated Stand Alone Forms: Patient Portal Discharge page Print Language: Occitan Care Plan Goals: You had multiple seizure attacks treated with IV seizure medications and close monitoring in ICU. You also had worsened kidney function which improved with IV fluids Continue ERtapenem for 1 more week Take Valproic acid, Keppra and Phenytoin as prescribed To follow with Neurology as outpatient Continue Bicarbonate as prescribed and follow with nephrology as outpatient To do physical therapy at home Decrease Lantus insulin to 30 units in the morning only and monitor your blood sugar for the next week. Discuss readings with PCP for further adjustments. Health Concerns: Read below Plan of Treatment: Read below Assessment: Read below Discharge Date/Time: 11/03/23 18:01
--- NOTE | 2023-11-03 16:04 | W.MHC.F2F ---
Service Date Service Date: 11/03/23 Encounter Date of encounter: 11/03/23 Reasons for Services Signs and symptoms assessed: IV antibiotics for 1 week Physical deconditioning NEw MEdications for seizure Reason for intermediate: medication management, medication treatment and teach disease management Reason for physical therapy: home safety and mobility and therapeutic exercises Homebound: Leaving the home is medically contraindicated at this time without the asist of a device and/or another person due th the listed conditions above and below. Reason homebound: unsteady gait / fall risk Certification: Based on the above findings, I certify that this patient is confined to the home and needs intermittent intermediate care, physical therapy and/or speech therapy, or continues to need occupational therapy. The patient is under my care, and I have initiated the establishment of the plan of care. The patient will be followed by a physician who will periodically review the plan of care. Time Spent With Patient Time: Total time managing care of this patient today ____ minutes.
[2023-11-03] MEDS: Ertapenem Sodium 0.5 GM in 0.9 % Sodium Chloride 50 ML IV (16:41)
--- NOTE | 2023-11-03 16:41 | MHC.CM.PN ---
Pt has been medically cleared for DC. She will go home via family transport and have home care services from [facility] and [facility].
--- NOTE | 2023-11-04 10:13 | MHC.CM.PN ---
POST DISCHARGE NOTE, [facility] CONTACTED CM REQUESTING COPY OF IV ORDERS, CM UNABLE TO LOCATE HARD COPY AND CONTACTED [facility] [phone], COPY FAXED TO [facility] AT [facility] [phone].
== END 2023-11-03 18:01 | disposition home health service (06) | DRG 101 ==
LOC: HO.ED 19:49 → HO.EDOVER 22:10 → HO.IMC 23:33 → HO.ICU 10-31 09:43 → HO.IMC 11-01 09:50
PROVIDERS: Emergency Medicine; Internal Medicine; Internal Medicine Critical Care Medicine; Internal Medicine Nephrology; Physician Assistant Medical; Admitting Provider Student in an Organized Health Care Education/Training Program; Emergency Provider Emergency Medicine Emergency Medical Services; PCP General Practice; Visit Provider Student in an Organized Health Care Education/Training Program
DX: G40.401 Other generalized epilepsy and epileptic syndromes, not intractable, with status epilepticus (principal); I13.0 Hypertensive heart and chronic kidney disease with heart failure and stage 1 through stage 4 chronic kidney disease, or unspecified chronic kidney disease; N18.4 Chronic kidney disease, stage 4 (severe); I50.32 Chronic diastolic (congestive) heart failure; N39.0 Urinary tract infection, site not specified; Z16.12 Extended spectrum beta lactamase (ESBL) resistance; Z68.41 Body mass index [BMI] 40.0-44.9, adult; E87.22 Chronic metabolic acidosis; E66.09 Other obesity due to excess calories; E78.5 Hyperlipidemia, unspecified; K21.9 Gastro-esophageal reflux disease without esophagitis; N25.0 Renal osteodystrophy; D63.1 Anemia in chronic kidney disease; B96.20 Unspecified Escherichia coli [E. coli] as the cause of diseases classified elsewhere; J45.909 Unspecified asthma, uncomplicated; E11.22 Type 2 diabetes mellitus with diabetic chronic kidney disease; Z20.822 Contact with and (suspected) exposure to COVID-19; Z79.4 Long term (current) use of insulin; Z79.82 Long term (current) use of aspirin; Z79.899 Other long term (current) drug therapy
CPT/HCPCS: 0241U; 36410; 36415; 70450; 70551; 71045; 80048; 80053; 80076; 80164; 81001; 82140; 82272; 82550; 82803; 82947; 83010; 83540; 83605; 83615; 83690; 83735; 83880; 83970; 84100; 84443; 84484; 85025; 85027; 85610; 86850; 86900; 86901; 86923; 87086; 87088; 87186; 93005; 93971; 95816; 97163; 99285; C1894; J0696; J1165; J1335; J1644; J1953; J2060; J2185; P9016

== ENCOUNTER → 2023-10-27 21:58 | Outpatient (BNV) | payer MEDICARE, MEDICAID, SELFPAY | PROVIDERS: Admitting Provider Student in an Organized Health Care Education/Training Program; Emergency Provider Emergency Medicine Emergency Medical Services; PCP General Practice; Visit Provider Psychiatry & Neurology Neurology | DX: G40.909 Epilepsy, unspecified, not intractable, without status epilepticus (principal) | CPT/HCPCS: 99222; 99232 ==

== ENCOUNTER → 2023-10-27 21:58 | Outpatient (BNV) | payer MEDICARE, MEDICAID, SELFPAY | PROVIDERS: Admitting Provider Student in an Organized Health Care Education/Training Program; Emergency Provider Emergency Medicine Emergency Medical Services; PCP General Practice; Visit Provider Internal Medicine | DX: N18.30 Chronic kidney disease, stage 3 unspecified (principal); N17.9 Acute kidney failure, unspecified; A49.8 Other bacterial infections of unspecified site; Z16.12 Extended spectrum beta lactamase (ESBL) resistance; R56.9 Unspecified convulsions | CPT/HCPCS: 99222 ==

== ENCOUNTER → 2023-10-27 21:58 | Outpatient (BNV) | payer MEDICARE, MEDICAID, SELFPAY | PROVIDERS: Admitting Provider Student in an Organized Health Care Education/Training Program; Emergency Provider Emergency Medicine Emergency Medical Services; PCP General Practice; Visit Provider Internal Medicine | DX: R56.9 Unspecified convulsions (principal) | CPT/HCPCS: 99223; 99232; 99233; 99239; G0180 ==

== ENCOUNTER → 2023-10-27 21:58 | Outpatient (BNV) | payer MEDICARE, MEDICAID, SELFPAY | PROVIDERS: Admitting Provider Student in an Organized Health Care Education/Training Program; Emergency Provider Emergency Medicine Emergency Medical Services; PCP General Practice; Visit Provider Internal Medicine Critical Care Medicine | DX: G40.901 Epilepsy, unspecified, not intractable, with status epilepticus (principal); I13.10 Hypertensive heart and chronic kidney disease without heart failure, with stage 1 through stage 4 chronic kidney disease, or unspecified chronic kidney disease; N18.4 Chronic kidney disease, stage 4 (severe); J18.9 Pneumonia, unspecified organism; J45.909 Unspecified asthma, uncomplicated; R91.1 Solitary pulmonary nodule | CPT/HCPCS: 99291 ==

== ENCOUNTER 2023-11-21 01:26 | Emergency (ER) | payer MEDICARE, MEDICAID, SELFPAY ==
[2023-11-21] VITALS (10 sets, daily range): BP systolic 149–236; BP diastolic 53–93; PULSE 60–76; RESP 15–18; TEMP 36.9; O2SAT 96–100; BMI 44.1
--- NOTE | 2023-11-21 | ECG_ITS ---
Test Reason : HTN Blood Pressure : / mmHG Vent. Rate : 064 BPM Atrial Rate : 064 BPM P-R Int : 178 ms QRS Dur : 106 ms QT Int : 438 ms P-R-T Axes : 020 001 009 degrees QTc Int : 451 ms Normal sinus rhythm Normal ECG When compared with ECG of 27-OCT-2023 14:40, No significant change was found Referred By: Generic ED Physician Electronically Signed By:DAVID NASH MD
--- NOTE | ~2023-11-21 | XR_ITS ---
EXAMINATION: XR CHEST CLINICAL INFORMATION: CHF COMPARISON: Chest radiograph 10/27/2023 TECHNIQUE: Frontal view of the chest was obtained. FINDINGS: Normal appearance of the cardiomediastinal structures. No effusions or pneumothoraces. No focal pulmonary consolidation. Normal pattern of pulmonary vasculature. High riding right humeral head suspicious for underlying rotator cuff degeneration. XR/XR chest 1V IMPRESSION: *No acute cardiopulmonary abnormalities. No evidence of active pulmonary edema. Electronically signed by: Yan Webb MD 11/21/2023 04:08 AM EDT
--- NOTE | ~2023-11-21 | CT_ITS ---
EXAMINATION: CT HEAD WITHOUT CONTRAST CLINICAL INFORMATION: Headache COMPARISON: MRI brain 10/31/2023. CT head 10/27/2023 CT head 07/07/2022 TECHNIQUE: Contiguous axial imaging was performed from the skull base to vertex without intravenous administration of contrast. This CT examination was performed using dose optimization techniques as appropriate, variously including the following: *Automated exposure control *Adjustment of mA and/or kV according to patient size (this includes techniques or standardized protocols for targeted exams where dose is matched to indication/reason for exam; i.e. extremities or head) *Use of iterative reconstruction technique DLP: 1348 mGy-cm FINDINGS: Chronic encephalomalacia of the left inferior frontal lobe and anterior left middle frontal lobe gyrus is unchanged across serial comparison studies dating back to 07/07/2022. An adjacent left frontal craniotomy is present. Segmental vascular calcifications are present in the cavernous portions of the internal carotid arteries. Minimal ex vacuo dilatation of the frontal horn of the left lateral ventricle is visualized. No intracranial hemorrhage or acute infarcts visualized. The orbits and globes are normal in appearance. No significant opacification of the visualized paranasal sinuses, mastoid air cells and middle ear cavities. CT/CT head/brain wo IV con IMPRESSION: *No acute intracranial abnormalities. *Chronic left anterior frontal encephalomalacia and adjacent left frontal craniotomy. Electronically signed by: Yan Webb MD 11/21/2023 04:14 AM EDT
--- NOTE | 2023-11-21 01:45 | PC.NURSE ---
pt reports new dx seizures on keppra, +1 pitting edema ble pt reports this has been ongoing x couple months. on lasix. orders entered.
[2023-11-21 02:20] LABS: Troponin-I High Sensitivity 20.4 ng/L (<3.5-17.0)
--- NOTE | 2023-11-21 02:45 | PC.NURSE ---
pt arrived via ems with htn/GAITAN. multiple attempts by this RN, another RN and PCT to obtain labs. able to place 22g IV to L. hand and 20g IV to R. shoulder, unable to obtain labs. made aware.
[2023-11-21 02:53] LABS: MANUAL DIFF FLAG NO
[2023-11-21 02:55] LABS: Basophils Absolute Auto 0.1 X10*3/uL (0.0-0.2); Basophils Percent Auto 0.6 % (0-2); Eosinophils Absolute Auto 0.4 X10*3/uL (0.0-0.4); Eosinophils Percent Auto 3.3 % (0-4); Hematocrit 22.9 % (37.0-47.0); Hemoglobin 7.6 g/dl (12.0-16.0); Imm Gran Abs Auto 0.15 X10*3/uL (0.00-0.03); Imm Gran Pct Auto 1.1 % (0.0-0.4); Lymphocytes Absolute Auto 1.3 X10*3/uL (1.2-4.9); Lymphocytes Percent Auto 9.6 % (20-40); Mean Corpuscular HGB Conc 33.2 g/dl (31.0-35.0); Mean Corpuscular Hemoglobin 31.5 pg (27.0-33.0); Mean Platelet Volume 12.2 fL (9.4-12.3); Monocytes Absolute Auto 0.9 X10*3/uL (0.1-1.2); Monocytes Percent Auto 6.6 % (2-11); Neutrophils Absolute Auto 10.4 x10*3/uL (2.0-8.3); Neutrophils Percent Auto 78.8 % (45-73); Red Blood Count 2.41 X10*6/uL (4.20-5.50); White Blood Count 13.2 X10*3/uL (4.8-10.8)
[2023-11-21 03:02] LABS: INTERNATIONAL NORM RATIO 0.9 (0.9-1.1); Prothrombin Time 10.9 SEC (10.9-12.4)
--- NOTE | 2023-11-21 03:02 | ED.GENADULT ---
HPI - General Adult General Chief complaint: General Medical Stated complaint: High BP Time Seen by Provider: 11/21/23 01:57 Source: patient, family ( Daughter), EMS and airport traffic controller Mode of arrival: EMS Limitations: no limitations History of Present Illness ED Provider: DR. Wright HPI narrative: 67-year-old female history of high blood pressure take Lasix and losartan 100 mg b.i.d., daughter found her having high blood pressure at home 183/70 patient was complaining of headache otherwise no CP, no SOB, no nausea, no vomiting, no dizziness. Patient is compliant with her medication. Related Data Home Medications ?Medication ?Instructions ?Recorded ?Confirmed blood sugar diagnostic (FreeStyle 03/28/20 09/09/22 Lite Strips) blood-glucose meter (FreeStyle 03/28/20 09/09/22 [place] Lite kit) lancets 28 gauge (FreeStyle 03/28/20 09/09/22 Lancets) omeprazole 40 mg capsule,delayed 40 mg PO BID@0630,1630 10/02/21 10/27/23 release blood pressure test kit-large #1 ea 10/12/21 09/09/22 atorvastatin 80 mg tablet 1 tab PO DAILY 12/20/21 10/27/23 nebulizers 01/20/22 09/09/22 amlodipine 10 mg tablet 10 mg PO DAILY 05/29/22 10/27/23 aspirin 81 mg tablet,delayed 81 mg PO DAILY 05/29/22 10/27/23 release losartan 100 mg tablet 100 mg PO DAILY 05/29/22 10/27/23 sucralfate 1 gram tablet 1 g PO QID 05/29/22 10/27/23 lancets 33 gauge (TRUEplus Lancets) #100 ea 06/07/22 09/09/22 trazodone 50 mg tablet 100 mg PO BEDTIME 06/07/22 10/27/23 cholecalciferol (vitamin D3) 50 50 mcg PO DAILY 11/24/22 10/27/23 mcg (2,000 unit) tablet ferrous gluconate 324 mg (38 mg 324 mg PO DAILY 11/24/22 10/27/23 iron) tablet furosemide 40 mg tablet 40 mg PO BID 11/24/22 10/27/23 insulin aspart 6 - 8 unit subcut TID 10/27/23 10/27/23 (niacinamide)(U-100) 100 unit/mL(3 mL) subcutaneous pen (Fiasp FlexTouch U-100 Insulin) Previous Rx's ?Medication ?Instructions ?Recorded acetaminophen 500 mg tablet 500 mg PO Q6H PRN fever or pain 02/24/22 #14 tabs sodium zirconium cyclosilicate 10 10 g PO MOWEFR #30 ea 11/30/22 gram oral powder packet (Lokelma) insulin glargine 100 unit/mL (3 30 unit (0.3 mL) subcut DAILY #15 11/03/23 mL) subcutaneous pen (Basaglar mL KwikPen U-100 Insulin) levetiracetam 500 mg tablet 500 mg PO BID #60 tabs 11/03/23 phenytoin sodium extended 100 mg 100 mg PO TID #90 caps 11/03/23 capsule (Dilantin Extended) sodium bicarbonate 650 mg tablet 650 mg PO BID #60 tabs 11/03/23 amlodipine 5 mg tablet 5 mg PO DAILY #20 tabs 11/21/23 Allergies Allergy/AdvReac Type Severity Reaction Status Date / Time Egg Derived Allergy Unknown Verified 11/21/23 01:39 Review of Systems Review of Systems: All other systems are reviewed and are negative Constitutional: Reports as per HPI and Reports no additional constitutional complaints Eyes: Reports as per HPI and Reports no additional eye complaints Reports system reviewed and no additional complaints, except as documented Cardiovascular: Reports as per HPI and Reports no additional cardiovascular complaints Respiratory: Reports as per HPI and Reports no additional respiratory complaints Gastrointestinal: Reports as per HPI and Reports no additional gastrointestinal complaints Genitourinary: Reports no additional female genitourinary complaints Musculoskeletal: Reports no additional musculoskeletal complaints Skin/Breast: Reports system reviewed and no additional complaints, except as docu Psychiatric: Reports no additional psychiatric complaints Endocrine: Reports no additional endocrine complaints Hematologic/Lymphatic: Reports no additional hematologic/lymphatic complaints Allergic/Immunologic: Reports no additional allergic/immunologic complaints Reports system reviewed and no additional complaints, except as documented and Reports Abnormal speech present [facility] Past Medical History Medical History Generalized seizure Acute kidney injury CKD (chronic kidney disease) stage 3, GFR 30-59 ml/min CHF (congestive heart failure) Anemia Brain tumor (benign) Lower extremity edema Pneumonia Asthma Pulmonary nodule HLD (hyperlipidemia) Seizure Acute hypoxemic respiratory failure due to COVID-19 COVID-19 Kidney stone Depression Gastritis Diabetes Surgical History H/O lithotripsy H/O ureteroscopy H/O cystoscopy S/P ureteral stent placement History of cholecystectomy H/O hernia repair Family History Family History Father CAD (coronary artery disease) Brother Lung cancer Sister Kidney stone Social History Social History Household Members: Children Housing: Apartment Do you presently have visiting nurse or other home services: Yes ([employer] 4hrs/day everyday) Alcohol intake: former Comment: pt sleeping at this time Patient Tobacco Use Status: Never used Tobacco Smoked in Last 30 Days: No e-Cigarette/Vaping Use: Never Used Use of substances other than those prescribed or required for medical reasons: No Advance Directives: Yes Advance Directives on File: Yes Advance Directives Date on File: 12/20/21 service: No Current occupational status: unemployed Physical Exam ED Vital Signs: Vital Signs - 24 hr 11/21/23 01:37 11/21/23 02:45 11/21/23 03:22 Temperature 98.5 F Pulse Rate 63 63 60 Respiratory Rate 16 16 16 Blood Pressure 218/75 H 159/62 H 149/93 H Pulse Oximetry 96 97 96 Oxygen Delivery Method Room Air Room Air Room Air 11/21/23 05:01 11/21/23 05:17 11/21/23 05:20 Temperature Pulse Rate 62 68 Respiratory Rate 16 16 Blood Pressure 210/62 H 236/53 H 184/63 H Pulse Oximetry 99 100 Oxygen Delivery Method Room Air Room Air 11/21/23 05:45 11/21/23 06:14 Temperature Pulse Rate 67 Respiratory Rate 15 Blood Pressure 200/74 H 209/65 H Pulse Oximetry 99 Oxygen Delivery Method Room Air BMI result Body Mass Index 44.1 Vital signs have been reviewed and appear to be correct. Blood pressure elevated. Heart rate normal. Respiratory rate normal. Temperature normal. Oxygen saturation normal. Appearance: Alert. Oriented X3. No acute distress. Head: Normal external exam. Normocephalic. Atraumatic. No Horton signs noted. No raccoon eyes noted Eyes: PERRLA. EOMI. Conjunctiva and sclera normal. Eyelids normal. ENT: TM's Normal. Pharynx normal. Uvula midline. Moist mucous membranes. No trismus noted. No drooling noted. No muffled voice noted. Neck: Normal inspection. Neck supple. FROM. No adenopathy. Thyroid Normal. No meningeal signs. No neck mass noted. CVS: Normal heart rate and rhythm. Heart sound normal. No murmurs noted. Pulses normal throughout. Respiratory: No respiratory distress. Painless inspiration. Breath sounds normal. No wheezes/rales/rhonchi noted. Chest nontender. No accessory muscle usage noted or decreased air movement noted. Abdomen: Soft and nontender. Bowel sounds normal in all 4 quadrants. No distention noted. No organomegaly noted. No visible injury noted. Back: No CVA tenderness. Full range of motion noted. Skin: Skin warm and dry. Normal skin color. Normal skin turgor. No rashes/lesions/lacerations noted. Extremities: No lower extremity edema. Extremities exhibit normal range of motion. Extremities nontender. Neuro: Oriented X 3. Cranial nerve exam: II-XII are grossly intact No motor deficit. No sensory deficit. Reflexes normal. Course Reevaluation(s) Reevaluation #1: In the emergency department patient blood pressure is 159/62 now declined any headache, normal neuro exam, normal head CT, as discussed with the patient need to record blood pressure at 3 different times a day for the next week and review the record with her PCP. Head CT: No acute intracranial pathology. Chronic leukocytosis. Labs revealed chronic elevated question of troponin with no delta change, no ischemic EKG changes, no chest pain. Time: 06:58 Medications Administered Discontinued Medications Generic Name Dose Route Start Last Admin Trade Name Freq PRN Reason Stop Dose Admin Losartan Potassium 100 mg 11/21/23 05:02 11/21/23 05:17 Losartan Potassium 50 Mg Tablet PO 11/21/23 05:03 100 mg ONCE ONE Administration Protocol Medical Decision Making Differential Diagnosis Differential Diagnoses: The differential diagnosis associated with the presentation includes ( Hypertensive urgency, hypertensive emergency, intracranial bleed, ACS, CHF,) Admission/Observation Consideration of admission/observation: Escalation of care including admission/observation considered Lab Data MDM Lab Attestation statement: I reviewed the patient's lab results. 11/21/23 02:48 11/21/23 02:48 Labs: Lab Results 11/21/23 11/21/23 11/21/23 Range/Units 01:46 02:48 06:04 WBC 13.2 H (4.8-10.8) X10*3/uL RBC 2.41 L (4.20-5.50) X10*6/uL Hgb 7.6 L (12.0-16.0) g/dl Hct 22.9 L (37.0-47.0) % MCV 95.0 (80.0-98.0) fL MCH 31.5 (27.0-33.0) pg MCHC 33.2 (31.0-35.0) g/dl RDW 13.0 (11.0-16.0) % Plt Count (160-400) X10*3/uL MPV 12.2 (9.4-12.3) fL Immature Gran % (Auto) 1.1 H (0.0-0.4) % Neut % (Auto) 78.8 H (45-73) % Lymph % (Auto) 9.6 L (20-40) % Stan[place] % (Auto) 6.6 (2-11) % Eos % (Auto) 3.3 (0-4) % Baso % (Auto) 0.6 (0-2) % Lymph # (Auto) 1.3 (1.2-4.9) X10*3/uL Stan[place] # (Auto) 0.9 (0.1-1.2) X10*3/uL Eos # (Auto) 0.4 (0.0-0.4) X10*3/uL Baso # (Auto) 0.1 (0.0-0.2) X10*3/uL Abs Immat Gran (auto) 0.15 H (0.00-0.03) X10*3/uL Absolute Neuts (auto) 10.4 H (2.0-8.3) x10*3/uL Absolute Nucleated RBC 0.000 (0.0-0.012) X10*3/uL Nucleated RBC % (auto) 0.0 (0.0-0.2) /100WBC PT 10.9 (10.9-12.4) SEC INR 0.9 (0.9-1.1) Sodium 142 (135-145) mmol/L Potassium 3.7 (3.3-5.1) mmol/L Chloride 111 H (96-108) mmol/L Carbon Dioxide 22 (22-29) mmol/L Anion Gap 13 (12-20) BUN 42 H (9-16) mg/dL Creatinine 3.55 H (0.5-1.4) mg/dL Estim Creat Clear Calc 18.1 Estimated GFR 13 Random Glucose 135 H (60-115) mg/dL Calcium 8.2 L (8.4-10.2) mg/dL Total Bilirubin 0.2 (0.0-1.0) mg/dL AST 11 (5-31) U/L ALT 12 (0-31) U/L Alkaline Phosphatase 181 H (39-117) U/L Troponin I High Sens 20.4 H 26.3 H (<3.5-17.0) ng/L B-Natriuretic Peptide 382 H (<100) pg/mL Total Protein 6.1 L (6.5-8.0) g/dL Albumin 2.9 L (3.5-5.0) g/dL Independent Interpretation I performed an independent interpretation of an: Plain X-Ray ( no acute intracranial pathology.) and CT Scan ( Head: No acute intracranial abnormality.) Radiology Impression Discussion of test interpretation with radiology: I have reviewed the radiologist's reading. Discharge Plan Discharge Clinical Impression: Essential hypertension Patient Disposition: Home, Self-Care Instructions: Hypertension (ED) Additional Instructions: record your blood pressure reading 3 times a day for 1 week and reviewed with your PCP. Prescriptions: New amlodipine 5 mg tablet 5 mg PO DAILY Qty: 20 0RF No Action (DME) FreeStyle Lite Strips Strip MISCELLANEOUS QID (DME) blood-glucose meter [FreeStyle [place] Lite] Kit MISCELLANEOUS BID (DME) lancets [FreeStyle Lancets] 28 gauge misc 1 gauge topical BID acetaminophen 500 mg tablet 500 mg PO Q6H PRN (Reason: fever or pain) Qty: 14 0RF omeprazole 40 mg capsule,delayed release(DR/EC) 40 mg PO BID@0630,1630 atorvastatin 80 mg tablet 1 tab PO DAILY sucralfate 1 gram tablet 1 g PO QID aspirin 81 mg tablet,delayed release (DR/EC) 81 mg PO DAILY amlodipine 10 mg tablet 10 mg PO DAILY losartan 100 mg tablet 100 mg PO DAILY Fiasp FlexTouch U-100 Insulin 100 unit/mL (3 mL) insulin pen 6 - 8 unit subcut TID levetiracetam 500 mg Tablet 500 mg PO BID Qty: 60 2RF phenytoin sodium extended [Dilantin Extended] 100 mg Capsule 100 mg PO TID Qty: 90 2RF sodium bicarbonate 650 mg Tablet 650 mg PO BID Qty: 60 2RF insulin glargine [Basaglar KwikPen U-100 Insulin] 100 unit/mL (3 mL) insulin pen 30 unit subcut DAILY Qty: 15 1RF furosemide 40 mg tablet 40 mg PO BID ferrous gluconate 324 mg (38 mg iron) tablet 324 mg PO DAILY cholecalciferol (vitamin D3) 50 mcg (2,000 unit) Tablet 50 mcg PO DAILY Lokelma 10 gram Powder In Packet 10 g PO MOWEFR Qty: 30 0RF (DME) blood pressure test kit-large Kit See Rx Instructions .ROUTE DAILY Qty: 1 Rx Instructions: As directed (DME) nebulizers Misc See Rx Instructions .Route Rx Instructions: As directed trazodone 50 mg tablet 100 mg PO BEDTIME (DME) lancets [TRUEplus Lancets] 33 gauge misc See Rx Instructions .ROUTE BID Qty: 100 Rx Instructions: As directed Referrals: Lucrecia Teixeira MD [Primary Care Provider] - Print Language: Bahamian
[2023-11-21 03:11] LABS: Alanine Aminotransferase 12 U/L (0-31); Albumin Level 2.9 g/dL (3.5-5.0); Alkaline Phosphatase 181 U/L (39-117); Anion Gap 13 (12-20); Aspartate Amino Transferase 11 U/L (5-31); Bilirubin Total 0.2 mg/dL (0.0-1.0); Blood Urea Nitrogen 42 mg/dL (9-16); Calcium 8.2 mg/dL (8.4-10.2); Carbon Dioxide 22 mmol/L (22-29); Chloride 111 mmol/L (96-108); Creatinine Clr Calc Pharmacy 18.1; Estimated Glomerular Filt Rate 13; Glucose Random 135 mg/dL (60-115); Potassium 3.7 mmol/L (3.3-5.1); Sodium 142 mmol/L (135-145); Total Protein 6.1 g/dL (6.5-8.0)
[2023-11-21 03:21] LABS: B Type Natriuretic Peptide 382 pg/mL (<100)
--- NOTE | 2023-11-21 03:22 | PC.NURSE ---
pt reports GAITAN resolved. bp as documented.
--- NOTE | 2023-11-21 05:02 | PC.NURSE ---
MD made aware of BP. pt denies cp/GAITAN/dizziness, no complaints at this time.
[2023-11-21] MEDS: Losartan Potassium 50 MG TABLET 100 MG PO (05:17)
--- NOTE | 2023-11-21 05:17 | PC.NURSE ---
pt medicated per mar, pt tolerated po med well.
--- NOTE | 2023-11-21 06:16 | PC.NURSE ---
Md aware of bp as documented. pt denies any cp/sob/GAITAN/dizziness.
[2023-11-21 06:34] LABS: Troponin-I High Sensitivity 26.3 ng/L (<3.5-17.0)
[2023-11-21] MEDS: amLODIPine Besylate 5 MG TABLET PO (07:57)
== END 2023-11-21 08:08 | disposition home or self-care (01) ==
PROVIDERS: Emergency Provider Emergency Medicine; PCP General Practice
DX: R51.9 Headache, unspecified (principal); I10 Essential (primary) hypertension; E11.9 Type 2 diabetes mellitus without complications; R06.02 Shortness of breath; Z79.899 Other long term (current) drug therapy; Z79.4 Long term (current) use of insulin; Z51.81 Encounter for therapeutic drug level monitoring
CPT/HCPCS: 36415; 70450; 71045; 80053; 83880; 84484; 85025; 85610; 93005; 99284

== ENCOUNTER → 2023-11-21 01:44 | Outpatient (BNV) | payer MEDICARE, MEDICAID, SELFPAY | PROVIDERS: Emergency Provider Emergency Medicine; PCP General Practice; Visit Provider Internal Medicine Cardiovascular Disease | DX: I10 Essential (primary) hypertension (principal) | CPT/HCPCS: 93010 ==

== ENCOUNTER 2024-03-21 18:08 | Inpatient (IN) | payer MEDICARE, MEDICAID, SELFPAY ==
--- NOTE | ~2024-03-21 | IR_ITS ---
CLINICAL HISTORY: End-stage renal disease. The patient presents to interventional radiology for placement of a tunneled central venous catheter for hemodialysis. PROCEDURES: 1. Real-time ultrasound-guided access into the right internal jugular vein after documentation of selected vessel patency, and permanent imaging storing in the patient record. 2. Placement of a 14.5 fr 23 cm tunneled, dual-lumen hemodialysis catheter. Clinician: Greg Kumari PA-C MEDICATIONS: -Fentanyl 75 mcg, Lidocaine 1% 10 mL SQ. -Antibiotics: Ancef -For additional details, please see nursing flowsheet. COMPLICATIONS: None. ESTIMATED BLOOD LOSS: <5 ml SPECIMENS: None FLUOROSCOPY TIME: 1.3 min PROCEDURE NOTE: The procedure, risks, benefits, and alternatives were carefully explained to patient, and written informed consent was obtained. The patient was placed supine on the fluoroscopy table. A timeout was performed. The right neck and chest was prepped and draped in usual sterile fashion. Local anesthesia was administered to the access site with lidocaine. Under ultrasound guidance, the right internal jugular vein was accessed with a 5 Fr micropuncture set. A 0.035 in wire was advanced to the IVC to maintain access during the tunneling process. Next, subcutaneous lidocaine was administered to the chest. Using blunt dissection, a subcutaneous tunnel was created that connects from the upper chest to the venotomy site. The dialysis catheter was pulled through the tunnel. The tract in the vein was dilated and a peel-away sheath was advanced over the wire. The catheter was advanced through the sheath, which was subsequently peeled away. The catheter was tested, flushed, and sutured to the skin with its tip in the high right atrium. A permanent fluoroscopic image of the chest was saved to PACS. The catheter ports were packed with heparin per routine protocol. The right IJ Ye was then removed. The patient was stable after the procedure and was transferred to the post anesthesia care unit. This procedure was performed under moderate sedation with a dedicated nurse and continuous monitoring of vital signs. FINDINGS: 1. Patent right internal jugular vein. 2. Placement of a tunneled, dual-lumen hemodialysis catheter as above. 3. Catheter flushes and aspirates very well with a 10 mL syringe. No pneumothorax. IR/IR cvc insert central tunnel IMPRESSION: Placement of a tunneled hemodialysis catheter in the right internal jugular vein and removal of the right internal jugular vein non-tunneled catheter. PLAN: -The catheter may be used immediately. This procedure was performed by Greg Kumari PA-C, and directly supervised by Dr. Dumont. Electronically signed by: Jose M Dumont MD 04/08/2024 04:17 PM [facility]
--- NOTE | ~2024-03-21 | XR_ITS ---
CLINICAL HISTORY: necrotic 5th toe Left foot three views Comparison: 02/28/2019 Findings: Lucency noted mid shaft 5th proximal phalanx. Question fracture versus erosive process. Degenerative change in multiple joints. Extensive vascular calcification in the foot. Impression: Question 5th proximal phalanx fracture versus destructive process This document has been electronically signed by: Ayan Steele MD on 03/21/2024 22:24:06
--- NOTE | ~2024-03-21 | IR_ITS ---
CLINICAL HISTORY: Patient requires dialysis. The patient presents to interventional radiology for placement of a non-tunneled central venous catheter for hemodialysis. PROCEDURES: 1. Real-time ultrasound-guided access into the right internal jugular vein after documentation of selected vessel patency, and permanent imaging storing in the patient record. 2. Placement of a 12.0 fr 20 cm non-tunneled, triple-lumen hemodialysis catheter. Clinician: Grge Kumari PA-C MEDICATIONS: -Lidocaine 1% 10 mL SQ. -For additional details, please see nursing flowsheet. COMPLICATIONS: None. ESTIMATED BLOOD LOSS: <5 ml SPECIMENS: None FLUOROSCOPY TIME: 0.6 min PROCEDURE NOTE: The procedure, risks, benefits, and alternatives were carefully explained to patient, and written informed consent was obtained. The patient was placed supine on the fluoroscopy table. A timeout was performed. The right neck and chest was prepped and draped in usual sterile fashion. Local anesthesia was administered to the access site with lidocaine. Under ultrasound guidance, the right internal jugular vein was accessed with a 4 Fr micropuncture set. A 0.035 in wire was advanced into the IVC. The tract in the vein was serially dilated. Over the wire, a 12.0 fr 20 cm non-tunneled, triple-lumen hemodialysis catheter was advanced, with the tip located at the cavoatrial junction. The wire was removed. The catheter was tested, flushed, and sutured to the skin. A permanent fluoroscopic image of the chest was saved to PACS. The patient was stable after the procedure and was transferred to the medical floor. There were no immediate complications. FINDINGS: 1. Patent right internal jugular vein. 2. Placement of a non-tunneled, triple-lumen hemodialysis catheter as above. 3. Catheter flushes and aspirates very well with a 10 mL syringe. No pneumothorax. IR/IR cvc insert non tunnel IMPRESSION: Placement of a non-tunneled hemodialysis catheter in the right internal jugular vein. PLAN: -The catheter may be used immediately. This procedure was performed by Greg Kumari PA-C, and directly supervised by Dr. Dumont. Electronically signed by: Jose M Dumont MD 03/26/2024 04:51 PM [facility] [place]
--- NOTE | ~2024-03-21 | XR_ITS ---
CLINICAL HISTORY: low suspicion pulm edema 1 view chest x-ray Comparison: 11/21/2023 Findings: Lungs are clear without acute infiltrates. No pneumothorax. Heart size enlarged. No acute bony abnormalities. Impression: No acute processes This document has been electronically signed by: Ayan Steele MD on 03/21/2024 23:28:22
--- NOTE | ~2024-03-21 | CT_ITS ---
CLINICAL HISTORY: renal failure, r o obstruction; do AFTER dialysis CT abdomen and pelvis without contrast Comparison: CT/SR - CT ABDOMEN PELVIS WO IV CON - 03/22/24 21:32 EST Findings: Faint ground-glass density at the lung bases. Atherosclerotic disease of the coronary arteries noted. The unenhanced liver, spleen, adrenal glands and pancreas are unremarkable. Kidneys are atrophic and demonstrate no evidence of hydronephrosis. Nonspecific bilateral perinephric stranding. A few foci of gas are noted within the left-sided collecting system, nonspecific. The bladder is decompressed. Single focus of gas within the anterior bladder. The appendix is normal. No bowel obstruction. There is a ventral hernia containing nonobstructed bowel loops. There is diverticulosis without diverticulitis. There is diffuse atherosclerotic disease present. Uterus and adnexa are unremarkable. Borderline lymph node within the retroperitoneum, axial image 34. This is unchanged. No acute osseous finding. Impression: There remains a few foci of gas within the left renal collecting system and a single focus within the bladder, nonspecific. Correlation with recent catheterization. 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 This remains a possibility if the urine is infected. This document has been electronically signed by: Jimy Hoffman MD on 03/23/2024 12:08:48
--- NOTE | ~2024-03-21 | IR_ITS ---
CLINICAL HISTORY: Patient requires dialysis. The patient presents to interventional radiology for placement of a non-tunneled central venous catheter for hemodialysis. PROCEDURES: 1. Real-time ultrasound-guided access into the right internal jugular vein after documentation of selected vessel patency, and permanent imaging storing in the patient record. 2. Placement of a 12.0 fr 20 cm non-tunneled, triple-lumen hemodialysis catheter. Clinician: Greg Kumari PA-C MEDICATIONS: -Lidocaine 1% 10 mL SQ. -For additional details, please see nursing flowsheet. COMPLICATIONS: None. ESTIMATED BLOOD LOSS: <5 ml SPECIMENS: None FLUOROSCOPY TIME: 0.6 min PROCEDURE NOTE: The procedure, risks, benefits, and alternatives were carefully explained to patient, and written informed consent was obtained. The patient was placed supine on the fluoroscopy table. A timeout was performed. The right neck and chest was prepped and draped in usual sterile fashion. Local anesthesia was administered to the access site with lidocaine. Under ultrasound guidance, the right internal jugular vein was accessed with a 4 Fr micropuncture set. A 0.035 in wire was advanced into the IVC. The tract in the vein was serially dilated. Over the wire, a 12.0 fr 20 cm non-tunneled, triple-lumen hemodialysis catheter was advanced, with the tip located at the cavoatrial junction. The wire was removed. The catheter was tested, flushed, and sutured to the skin. A permanent fluoroscopic image of the chest was saved to PACS. The patient was stable after the procedure and was transferred to the medical floor. There were no immediate complications. FINDINGS: 1. Patent right internal jugular vein. 2. Placement of a non-tunneled, triple-lumen hemodialysis catheter as above. 3. Catheter flushes and aspirates very well with a 10 mL syringe. No pneumothorax. IR/IR us guide venous access IMPRESSION: Placement of a non-tunneled hemodialysis catheter in the right internal jugular vein. PLAN: -The catheter may be used immediately. This procedure was performed by Greg Kumari PA-C, and directly supervised by Dr. Dumont. Electronically signed by: Jose M Dumont MD 03/26/2024 04:51 [place] [facility] [place]
[2024-03-21 18:37] VITALS: BP 129/48; BP 162/70; PULSE 132; PULSE 80; RESP 20; TEMP 36.6; O2SAT 95; BMI 30.1
[2024-03-21 18:42] VITALS: BP 129/48; PULSE 80; RESP 20; TEMP 36.6; O2SAT 95
--- NOTE | 2024-03-21 18:46 | PC.NURSE ---
Pt comes to ED today with c/o pain to L pinky toe. Pts daughter reports injury to L pinky toes 6 days ago while cutting toe nail. L pinky presents black and sloughing tissue. Awaiting ED provider.
[2024-03-21 20:26] VITALS: BP 141/46; PULSE 78; RESP 20; TEMP 36.4; O2SAT 100
[2024-03-21] MEDS: 0.9 % Sodium Chloride 1,000 ML 999 ML IVCONT (21:40)
[2024-03-21 21:41] LABS: MANUAL DIFF FLAG NO
[2024-03-21 21:43] LABS: Basophils Percent Auto 0.2 % (0-2); Eosinophils Absolute Auto 0.2 X10*3/uL (0.0-0.4); Eosinophils Percent Auto 1.2 % (0-4); Imm Gran Abs Auto 0.56 X10*3/uL (0.00-0.03); Imm Gran Pct Auto 3.5 % (0.0-0.4); Lymphocytes Percent Auto 6.4 % (20-40); Mean Corpuscular HGB Conc 31.5 g/dl (31.0-35.0); Mean Corpuscular Hemoglobin 31.8 pg (27.0-33.0); Mean Corpuscular Volume 101.1 fL (80.0-98.0); Mean Platelet Volume 12.2 fL (9.4-12.3); Monocytes Absolute Auto 0.8 X10*3/uL (0.1-1.2); Neutrophils Absolute Auto 13.3 x10*3/uL (2.0-8.3); Neutrophils Percent Auto 83.7 % (45-73); Red Blood Count 1.79 X10*6/uL (4.20-5.50); Red Cell Distribution Width 13.2 % (11.0-16.0); White Blood Count 15.9 X10*3/uL (4.8-10.8)
[2024-03-21 21:50] LABS: Hemoglobin 5.7 g/dl (12.0-16.0)
--- NOTE | 2024-03-21 21:50 | PC.NURSE ---
this RN placed #20g iv RAC, blood cultures/lactic/labs obtained and sent to lab. PCT in room attempting second set cultures however unable to obtain, second PCT attempting now. Pt c/o severe 10/ pain to head. MD rob aware. antibiotics on hold until second set cultures obtained. fluids running per apr
[2024-03-21 21:51] LABS: Hematocrit 18.1 % (37.0-47.0)
[2024-03-21 22:03] VITALS: BP 140/53
[2024-03-21 22:05] LABS: Alanine Aminotransferase 7 U/L (0-31); Albumin Level 2.8 g/dL (3.5-5.0); Alkaline Phosphatase 134 U/L (39-117); Anion Gap 18 (12-20); Aspartate Amino Transferase 21 U/L (5-31); Bilirubin Direct < 0.2 mg/dL (0.0-0.5); Bilirubin Total 0.1 mg/dL (0.0-1.0); C Reactive Protein 9.58 mg/dL (< or = 0.50); Calcium 7.1 mg/dL (8.4-10.2); Carbon Dioxide 7 mmol/L (22-29); Chloride 116 mmol/L (96-108); Creatinine Clr Calc Pharmacy 6.5; Estimated Glomerular Filt Rate 5; Glucose Random 142 mg/dL (60-115); Lactic Acid 0.8 mmol/L (0.5-2.0); Potassium 5.1 mmol/L (3.3-5.1); Sodium 136 mmol/L (135-145); Total Protein 6.8 g/dL (6.5-8.0)
[2024-03-21 22:10] LABS: Blood Urea Nitrogen 120 mg/dL (9-16)
[2024-03-21] MEDS: Morphine Sulfate 2 MG/ML CARTRIDGE IVPUSH (22:11)
[2024-03-21] MEDS: LORazepam 2 MG/ML VIAL IVPUSH (22:11)
--- NOTE | 2024-03-21 22:21 | PC.NURSE ---
late admin for abx due to difficulty obtaining second set blood cultures
[2024-03-21] MEDS: Piperacillin Sodium/Tazobactam 3.375 GM in 0.9 % Sodium Chloride 50 ML IV (22:31)
[2024-03-21 22:46] VITALS: TEMP 36.4
[2024-03-21] MEDS: vancomycin/NS 2,000 MG/500 ML PLAST..BAG 250 MG IV (22:51)
[2024-03-21 22:56] LABS: OBS Int Ctl Valid YES; OBS1 NEGATIVE (NEGATIVE)
[2024-03-21 23:11] LABS: Erythrocyte Sedimentation Rate > 140 MM/HR (0-20)
[2024-03-21 23:48] LABS: B Type Natriuretic Peptide 142 pg/mL (<100)
--- NOTE | 2024-03-21 23:56 | PC.NURSE ---
second IV access obtained 20G placed in right hand at this time.
[2024-03-21] MEDS: Sodium Bicarbonate 8.4% 100 MEQ in Dextrose 5 % 900 ML IV (23:59)
[2024-03-22] VITALS (24 sets, daily range): BP systolic 120–178; BP diastolic 48–83; PULSE 77–96; RESP 13–20; TEMP 35.4–36.7; O2SAT 95–100; BMI 41.8
--- NOTE | 2024-03-22 | ECG_ITS ---
Test Reason : sepsis Blood Pressure : */* mmHG Vent. Rate : 82 BPM Atrial Rate : 82 BPM P-R Int : 174 ms QRS Dur : 98 ms QT Int : 396 ms P-R-T Axes : 53 0 40 degrees QTcB Int : 462 ms Normal sinus rhythm Normal ECG When compared with ECG of 21-Nov-2023 01:44, T wave inversion no longer evident in Inferior leads Nonspecific T wave abnormality now evident in Lateral leads Referred By: Moses Reynoso Electronically Signed By: Eduard Reyes
--- NOTE | 2024-03-22 01:13 | ED.LOWEXIN ---
HPI - Extremity Injury (Lower) General Chief Complaint: Extremity Injury, Lower Stated Complaint: foot wound, hx diabetes, HR 146* Time Seen by Provider: 03/21/24 18:18 Source: patient and family Mode of arrival: ambulatory Limitations: no limitations History of Present Illness ED Provider: Dr. Bethany Barber HPI Narrative: Patient comes to the emergency room accompanied by her daughter. The daughter states that today, she noted that the patient has a discolored toe on the left foot. The 5th toe is black, seems to have malodorous discharge, painful to touch. Patient's daughter believes that it started with mild redness after patient clipped her nails 5-6 days ago. Patient denies fever chills. Patient complaining of generalized malaise, denies chest pain or shortness of breath, denies URI or UTI symptoms Related Data Home Medications ?Medication ?Instructions ?Recorded ?Confirmed blood sugar diagnostic (FreeStyle 03/28/20 09/09/22 Lite Strips) blood-glucose meter (FreeStyle 03/28/20 09/09/22 [place] Lite kit) lancets 28 gauge (FreeStyle 03/28/20 09/09/22 Lancets) omeprazole 40 mg capsule,delayed 40 mg PO BID@0630,1630 10/02/21 10/27/23 release blood pressure test kit-large #1 ea 10/12/21 09/09/22 atorvastatin 80 mg tablet 1 tab PO DAILY 12/20/21 10/27/23 nebulizers 01/20/22 09/09/22 amlodipine 10 mg tablet 10 mg PO DAILY 05/29/22 10/27/23 aspirin 81 mg tablet,delayed 81 mg PO DAILY 05/29/22 10/27/23 release losartan 100 mg tablet 100 mg PO DAILY 05/29/22 10/27/23 sucralfate 1 gram tablet 1 g PO QID 05/29/22 10/27/23 lancets 33 gauge (TRUEplus Lancets) #100 ea 06/07/22 09/09/22 trazodone 50 mg tablet 100 mg PO BEDTIME 06/07/22 10/27/23 cholecalciferol (vitamin D3) 50 50 mcg PO DAILY 11/24/22 10/27/23 mcg (2,000 unit) tablet ferrous gluconate 324 mg (38 mg 324 mg PO DAILY 11/24/22 10/27/23 iron) tablet furosemide 40 mg tablet 40 mg PO BID 11/24/22 10/27/23 insulin aspart 6 - 8 unit subcut TID 10/27/23 10/27/23 (niacinamide)(U-100) 100 unit/mL(3 mL) subcutaneous pen (Fiasp FlexTouch U-100 Insulin) Previous Rx's ?Medication ?Instructions ?Recorded acetaminophen 500 mg tablet 500 mg PO Q6H PRN fever or pain 02/24/22 #14 tabs sodium zirconium cyclosilicate 10 10 g PO MOWEFR #30 ea 11/30/22 gram oral powder packet (Lokelma) insulin glargine 100 unit/mL (3 30 unit (0.3 mL) subcut DAILY #15 11/03/23 mL) subcutaneous pen (Basaglar mL KwikPen U-100 Insulin) levetiracetam 500 mg tablet 500 mg PO BID #60 tabs 11/03/23 phenytoin sodium extended 100 mg 100 mg PO TID #90 caps 11/03/23 capsule (Dilantin Extended) sodium bicarbonate 650 mg tablet 650 mg PO BID #60 tabs 11/03/23 amlodipine 5 mg tablet 5 mg PO DAILY #20 tabs 11/21/23 Allergies Allergy/AdvReac Type Severity Reaction Status Date / Time Egg Derived Allergy Unknown Verified 03/21/24 18:41 Review of Systems Review of Systems: Constitutional : No Weight loss, No Fever, No Chills, No Night Sweats, complaining of generalized malaise ENT/Mouth : No Hearing loss, No Ear Pain, No Nasal Congestion, No Sinus Pain, No Hoarseness, No sore throat, No Rhinorrhea, No Swallowing Difficulty Eyes: No Eye Pain, No Swelling, No Redness, No Foreign Body, No Discharge, No Vision Changes Cardiovascular : No Chest Pain, No SOB, No Dyspnea on Exertion, No Orthopnea, No Edema, No Palpitations Respiratory : No Cough, No Sputum, No Wheezing, No Smoke Exposure, No Dyspnea Gastrointestinal : No Nausea, No Vomiting, No Diarrhea, No Constipation, No abdominal Pain, No Hematochezia, No Melena Genitourinary : no irregular bleeding, No Dysuria, No Urinary Frequency, No Hematuria, No Urinary Incontinence, No Urgency, No Flank Pain, No Urinary Flow Changes, No Hesitancy Musculoskeletal : No joint pain, No Myalgias, No Joint Swelling Skin : Complaining of the necrotic toe on the left foot Neuro : No Weakness, No Numbness, No Paresthesias, No Loss of Consciousness, No Dizziness, No Headache Psych : No Anxiety/Panic, No Depression, No SI/HI/AH/VH, No Social Issues, Heme/Lymph: No Bruising, No Bleeding,No Lymphadenopathy Endocrine : No Polyuria, No Polydipsia, No Temperature Intolerance [facility] Past Medical History Medical History Generalized seizure Acute kidney injury CKD (chronic kidney disease) stage 3, GFR 30-59 ml/min CHF (congestive heart failure) Anemia Brain tumor (benign) Lower extremity edema Pneumonia Asthma Pulmonary nodule HLD (hyperlipidemia) Seizure Acute hypoxemic respiratory failure due to COVID-19 COVID-19 Kidney stone Depression Gastritis Diabetes Surgical History H/O lithotripsy H/O ureteroscopy H/O cystoscopy S/P ureteral stent placement History of cholecystectomy H/O hernia repair Family History Family History Father CAD (coronary artery disease) Brother Lung cancer Sister Kidney stone Social History Social History Household Members: Children Housing: Apartment Do you presently have visiting nurse or other home services: Yes ([employer] 4hrs/day everyday) Alcohol intake: former Comment: pt sleeping at this time Patient Tobacco Use Status: Never used Tobacco Smoked in Last 30 Days: No e-Cigarette/Vaping Use: Never Used Use of substances other than those prescribed or required for medical reasons: No Advance Directives: Yes Advance Directives on File: Yes Advance Directives Date on File: 12/20/21 Do you have a plan to hurt others: No Plan service: No Current occupational status: unemployed Physical Exam Vital Signs: Vital Signs: Last Vital Signs Temp 97.7 F 03/22/24 00:31 Pulse 77 03/22/24 00:31 Resp 16 03/22/24 00:31 BP 126/48 L 03/22/24 00:31 Pulse Ox 100 03/22/24 00:31 O2 Del Method Room Air 03/22/24 00:31 BMI result Body Mass Index 30.1 Const: Other: Appearance: Alert. Oriented X3. No acute distress. Eyes: Pupils equal, round and reactive to light. ENT: Pharynx normal. Neck: Normal inspection. Neck supple. No lymph nodes noted. No crepitus CVS: Normal heart rate and rhythm. Pulses normal. Normal S1 and S2 Respiratory: No respiratory distress. Breath sounds normal. No Wheezing. No rales Abdomen: Soft and nontender. No rigidity. No distention. Patient has an abdominal hernia, easily reducible Skin: Skin warm and dry. Pale skin color. Normal skin turgor. See extremity below Extremities: No lower extremity edema. No Lacerations. No Rash. Patient's 5th toe on the left foot is necrotic. There is an ulcer in between the 4th and the 5th digits, foul smelling pus present. Neuro: Oriented X 3. No motor deficit. No sensory deficit. Moving all extremities. No slurred speech. CN 2 through 12 grossly intact Psych: calm, cooperative, normal affect Course Course Course Narrative: When patient is IV was placed, patient started screaming, had a panic attack, very anxious, patient was given IV morphine to help her with the pain in IV Ativan. Patient was able to tolerate the IV placements I reviewed patient's records, patient was seen by Nephrology last time in October, patient was getting close to start dialysis. Patient's daughter states that the patient has an appointment in 3 days with Nephrology with Dr Meehan Medications Administered Generic Name Dose Route Start Last Admin Trade Name Freq PRN Reason Stop Dose Admin Sodium Bicarbonate 100 meq/ 1,000 mls @ 100 mls/hr 03/21/24 23:15 03/21/24 23:59 Dextrose IV 100 mls/hr .Q10H KATHERINE Administration Discontinued Medications Generic Name Dose Route Start Last Admin Trade Name Freq PRN Reason Stop Dose Admin Sodium Chloride 1,000 mls @ 999 mls/hr 03/21/24 21:18 03/21/24 23:54 Ns IVCONT 03/21/24 22:18 Infused .Q1H1M ONE Infusion Vancomycin HCl 2,000 mg in 500 mls @ 250 mls/hr 03/21/24 21:18 03/21/24 22:51 Vancomycin/Ns IV 03/21/24 23:17 250 mls/hr ONCE ONE Administration Piperacillin Sod/Tazobactam 50 mls @ 100 mls/hr 03/21/24 21:18 03/21/24 23:00 Sod 3.375 gm/ Sodium Chloride IV 03/21/24 21:47 Infused ONCE ONE Infusion Lorazepam 2 mg 03/21/24 22:06 03/21/24 22:11 Lorazepam 2 Mg/Ml Vial IVPUSH 03/21/24 22:07 2 mg ONCE ONE Administration Morphine Sulfate 2 mg 03/21/24 22:06 03/21/24 22:11 Morphine Sulfate 2 Mg/Ml Cartridge IVPUSH 03/21/24 22:07 2 mg ONCE ONE Administration Protocol Medical Decision Making Medical Decision Making [facility] Narrative: Patient was started on IV fluids, vancomycin, Zosyn. Patient has not had any fever, no episodes of hypotension, sepsis not suspected. All of patient's labs pending X-ray of the foot shows a fracture versus destructive process. My interpretation of labs: Patient is anemic, hemoglobin 5.7, hematocrit 18.1. Also, patient's BUN and creatinine are significantly more elevated than previous labs. BUN is 120 , creatinine 8.2, bicarb 7. BNP at baseline, 142, guaiac test heme negative I discussed the patient with Dr. Cooper from Nephrology. Recommendations: 3 bicarb pushes in 900 cc of D5W Patient has had anemia in the past and has had blood transfusions per patient's daughter. Risks versus benefits of a blood transfusion were discussed with the patient's daughter, decided to proceed with a blood transfusion. -patient's healthcare proxy who is the patient's daughter signed the consent. I discussed the patient with Dr. Norwood from the medicine team, patient being admitted Differential Diagnosis Differential Diagnoses: The differential diagnosis associated with the presentation includes (Cellulitis, toe fracture, osteomyelitis. Acute on chronic renal failure) Admission/Observation Consideration of admission/observation: Escalation of care including admission/observation considered Consult Healthcare Provider Management of the patient was discussed with: Hospitalist and Clinic Coordinator Lab Data [facility] Lab Attestation statement: I reviewed the patient's lab results. 03/21/24 21:31 03/21/24 21:31 Labs: Lab Results 03/21/24 03/21/24 03/21/24 Range/Units 21:31 22:30 22:46 WBC 15.9 H (4.8-10.8) X10*3/uL RBC 1.79 L D (4.20-5.50) X10*6/uL Hgb 5.7 L* D (12.0-16.0) g/dl Hct 18.1 L* D (37.0-47.0) % MCV 101.1 H (80.0-98.0) fL MCH 31.8 (27.0-33.0) pg MCHC 31.5 (31.0-35.0) g/dl RDW 13.2 (11.0-16.0) % Plt Count TNP MPV 12.2 (9.4-12.3) fL Immature Gran % (Auto) 3.5 H (0.0-0.4) % Neut % (Auto) 83.7 H (45-73) % Lymph % (Auto) 6.4 L (20-40) % [place] % (Auto) 5.0 (2-11) % Eos % (Auto) 1.2 (0-4) % Baso % (Auto) 0.2 (0-2) % Lymph # (Auto) 1.0 L (1.2-4.9) X10*3/uL [place] # (Auto) 0.8 (0.1-1.2) X10*3/uL Eos # (Auto) 0.2 (0.0-0.4) X10*3/uL Baso # (Auto) 0.0 (0.0-0.2) X10*3/uL Abs Immat Gran (auto) 0.56 H (0.00-0.03) X10*3/uL Absolute Neuts (auto) 13.3 H (2.0-8.3) x10*3/uL Absolute Nucleated RBC 0.000 (0.0-0.012) X10*3/uL Nucleated RBC % (auto) 0.0 (0.0-0.2) /100WBC ESR > 140 H (0-20) MM/HR Sodium 136 (135-145) mmol/L Potassium 5.1 D (3.3-5.1) mmol/L Chloride 116 H (96-108) mmol/L Carbon Dioxide 7 L* D (22-29) mmol/L Anion Gap 18 (12-20) BUN 120 H (9-16) mg/dL Creatinine 8.20 H* (0.5-1.4) mg/dL Estim Creat Clear Calc 6.5 Estimated GFR 5 Random Glucose 142 H (60-115) mg/dL Lactic Acid 0.8 (0.5-2.0) mmol/L Calcium 7.1 L D (8.4-10.2) mg/dL Total Bilirubin 0.1 (0.0-1.0) mg/dL Direct Bilirubin < 0.2 (0.0-0.5) mg/dL AST 21 (5-31) U/L ALT 7 (0-31) U/L Alkaline Phosphatase 134 H (39-117) U/L C-Reactive Protein 9.58 H (< or = 0.50) mg/dL B-Natriuretic Peptide 142 H (<100) pg/mL Total Protein 6.8 (6.5-8.0) g/dL Albumin 2.8 L (3.5-5.0) g/dL Stool Occult Blood NEGATIVE (NEGATIVE) Blood Type O Positive Antibody Screen NEGATIVE Crossmatch See Detail Independent Interpretation I performed an independent interpretation of an: Plain X-Ray Radiology Impression Discussion of test interpretation with radiology: I have reviewed the radiologist's reading. Radiologist Impression: Lucency noted mid shaft 5th proximal phalanx. Question fracture versus erosive process. Degenerative change in multiple joints. Extensive vascular calcification in the foot. Impression: Question 5th proximal phalanx fracture versus destructive process Independent Historian Clinical information obtained from an independent historian. History obtained from or confirmed by: Other (Patient's daughter) Critical Care Time Critical Care Time Critical Care Time: Yes Total Critical Care Time: 90 Attestation: I have personally provided critical care time. Time includes review of lab data, radiology results, discussion with consultants, and monitoring for potential decompensation. Intervention performed as documented. Discharge Plan Discharge Clinical Impression: Osteomyelitis, Acute on chronic renal failure, Anemia Patient Disposition: Admitted As Inpatient Prescriptions: No Action (DME) FreeStyle Lite Strips Strip MISCELLANEOUS QID (DME) blood-glucose meter [FreeStyle [place] Lite] Kit MISCELLANEOUS BID (DME) lancets [FreeStyle Lancets] 28 gauge misc 1 gauge topical BID acetaminophen 500 mg tablet 500 mg PO Q6H PRN (Reason: fever or pain) Qty: 14 0RF omeprazole 40 mg capsule,delayed release(DR/EC) 40 mg PO BID@0630,1630 atorvastatin 80 mg tablet 1 tab PO DAILY sucralfate 1 gram tablet 1 g PO QID aspirin 81 mg tablet,delayed release (DR/EC) 81 mg PO DAILY amlodipine 10 mg tablet 10 mg PO DAILY losartan 100 mg tablet 100 mg PO DAILY Fiasp FlexTouch U-100 Insulin 100 unit/mL (3 mL) insulin pen 6 - 8 unit subcut TID levetiracetam 500 mg Tablet 500 mg PO BID Qty: 60 2RF phenytoin sodium extended [Dilantin Extended] 100 mg Capsule 100 mg PO TID Qty: 90 2RF sodium bicarbonate 650 mg Tablet 650 mg PO BID Qty: 60 2RF insulin glargine [Basaglar KwikPen U-100 Insulin] 100 unit/mL (3 mL) insulin pen 30 unit subcut DAILY Qty: 15 1RF amlodipine 5 mg tablet 5 mg PO DAILY Qty: 20 0RF furosemide 40 mg tablet 40 mg PO BID ferrous gluconate 324 mg (38 mg iron) tablet 324 mg PO DAILY cholecalciferol (vitamin D3) 50 mcg (2,000 unit) Tablet 50 mcg PO DAILY Lokelma 10 gram Powder In Packet 10 g PO MOWEFR Qty: 30 0RF (DME) blood pressure test kit-large Kit See Rx Instructions .ROUTE DAILY Qty: 1 Rx Instructions: As directed (DME) nebulizers Misc See Rx Instructions .Route Rx Instructions: As directed trazodone 50 mg tablet 100 mg PO BEDTIME (DME) lancets [TRUEplus Lancets] 33 gauge misc See Rx Instructions .ROUTE BID Qty: 100 Rx Instructions: As directed Print Language: French
--- NOTE | 2024-03-22 02:00 | PC.NURSE ---
initial 15 minutes of transfusion completed at this time, pt tolerated well, vss. pt at risk for TACO, transfusion rate 75 ml/hr at this time.
[2024-03-22] MEDS: 0.9 % Sodium Chloride 1,000 ML 100 ML IVCONT ×2 (03:09→13:11)
[2024-03-22] MEDS: Acetaminophen 325 MG TABLET 650 MG PO ×2 (03:19→09:20)
--- NOTE | 2024-03-22 03:20 | PC.NURSE ---
paraprofessional interpreter at bedside, pt reporting 5/10 headache at this time, pt medicated per mar, tolerated well with water.
--- NOTE | 2024-03-22 04:23 | PC.NURSE ---
pt noted to have incontinent urine at this time, purewick placed at this time for comfort.
[2024-03-22 05:04] LABS: MANUAL DIFF FLAG NO
[2024-03-22 05:05] LABS: Basophils Percent Auto 0.2 % (0-2); Eosinophils Absolute Auto 0.3 X10*3/uL (0.0-0.4); Eosinophils Percent Auto 1.5 % (0-4); Hematocrit 21.2 % (37.0-47.0); Imm Gran Abs Auto 0.64 X10*3/uL (0.00-0.03); Imm Gran Pct Auto 3.8 % (0.0-0.4); Lymphocytes Absolute Auto 1.2 X10*3/uL (1.2-4.9); Mean Corpuscular HGB Conc 31.6 g/dl (31.0-35.0); Mean Corpuscular Hemoglobin 32.2 pg (27.0-33.0); Mean Corpuscular Volume 101.9 fL (80.0-98.0); Mean Platelet Volume 11.7 fL (9.4-12.3); Monocytes Absolute Auto 1.3 X10*3/uL (0.1-1.2); Monocytes Percent Auto 7.8 % (2-11); Neutrophils Absolute Auto 13.3 x10*3/uL (2.0-8.3); Neutrophils Percent Auto 79.7 % (45-73); Platelet Count 107 X10*3/uL (160-400); Red Blood Count 2.08 X10*6/uL (4.20-5.50); Red Cell Distribution Width 13.4 % (11.0-16.0); White Blood Count 16.7 X10*3/uL (4.8-10.8)
--- NOTE | 2024-03-22 05:08 | PM.IMHP ---
History of Present Illness Date of Service: 03/22/24 Attending physician on admission: Gustavo Norwood Chief Complaint: Infected left small toe Patient is a 68-year-old female with past medical history of type 2 diabetes mellitus, stage IV CKD, hypertension, recurrent seizures, and nephrolithiasis who presented to the emergency room from home accompanied by her daughter for evaluation of an infected left small toe. Most of this information is obtained from the emergency room provider as patient is not good historian and her daughter has already left the emergency room and was difficult to reach her. Apparently her daughter noted that patient's left small toe was discolored / black today, had malodorous discharge and was painful to touch. She stated that this started with a mild redness after patient clipped her nails 5-6 days ago. Today, she started complaining of generalized malaise but denied any fevers, chills, chest pain or shortness of breath. On arrival to the emergency room she was noted to have stable vital signs. Blood work done revealed a leukocytosis of 15.9 K with 83% neutrophils. She had elevated inflammatory markers with ESR of >140 and CRP of 9.58. A serum calcium was low at 7.1 and was mildly acidotic with a serum bicarbonate of 17. A chest x-ray done was clear but plain x-rays of the left foot had findings that were concerning of possible 5th proximal phalanx fracture or an destructive / erosive process (osteomyelitis). She received intravenous vancomycin and Zosyn following which admission was requested for continued care. When I got to see her, she was awake, alert and comfortable and had no additional complains (even though she is purely speaking and not a very good historian). Review of Systems Review of Systems: Yes all other systems are reviewed and are negative [facility]LY [facility] Medical History Generalized seizure Acute kidney injury CKD (chronic kidney disease) stage 3, GFR 30-59 ml/min CHF (congestive heart failure) Anemia Brain tumor (benign) Lower extremity edema Pneumonia Asthma Pulmonary nodule HLD (hyperlipidemia) Seizure Acute hypoxemic respiratory failure due to COVID-19 COVID-19 Kidney stone Depression Gastritis Diabetes Family History Father CAD (coronary artery disease) Brother Lung cancer Sister Kidney stone Surgical History H/O lithotripsy H/O ureteroscopy H/O cystoscopy S/P ureteral stent placement History of cholecystectomy H/O hernia repair Social History Household Members: Children Housing: Apartment Do you presently have visiting nurse or other home services: Yes (SHOW HOST 4hrs/day everyday) Alcohol intake: former Comment: pt sleeping at this time Patient Tobacco Use Status: Never used Tobacco Smoked in Last 30 Days: No e-Cigarette/Vaping Use: Never Used Use of substances other than those prescribed or required for medical reasons: No Advance Directives: Yes Advance Directives on File: Yes Advance Directives Date on File: 12/20/21 Do you have a plan to hurt others: No Plan Nutrition Risks: No Nutritional Risk service: No Current occupational status: unemployed Meds Allergies Allergy/AdvReac Type Severity Reaction Status Date / Time Egg Derived Allergy Unknown Verified 03/21/24 18:41 Home Medications ?Medication ?Instructions ?Recorded ?Confirmed ?Last Taken ?Type blood sugar diagnostic (FreeStyle 03/28/20 09/09/22 Unknown History Lite Strips) blood-glucose meter (FreeStyle 03/28/20 09/09/22 Unknown History [place] Lite kit) lancets 28 gauge (FreeStyle 03/28/20 09/09/22 Unknown History Lancets) omeprazole 40 mg capsule,delayed 40 mg PO BID@0630,1630 10/02/21 10/27/23 10/26/23 History release blood pressure test kit-large #1 ea 10/12/21 09/09/22 Unknown History atorvastatin 80 mg tablet 1 tab PO DAILY 12/20/21 10/27/23 10/26/23 History nebulizers 01/20/22 09/09/22 Unknown History amlodipine 10 mg tablet 10 mg PO DAILY 05/29/22 10/27/23 10/26/23 History aspirin 81 mg tablet,delayed 81 mg PO DAILY 05/29/22 10/27/23 10/26/23 History release losartan 100 mg tablet 100 mg PO DAILY 05/29/22 10/27/23 10/26/23 History sucralfate 1 gram tablet 1 g PO QID 05/29/22 10/27/23 10/26/23 History lancets 33 gauge (TRUEplus Lancets) #100 ea 06/07/22 09/09/22 Unknown History trazodone 50 mg tablet 100 mg PO BEDTIME 06/07/22 10/27/23 10/26/23 History cholecalciferol (vitamin D3) 50 50 mcg PO DAILY 11/24/22 10/27/23 10/26/23 History mcg (2,000 unit) tablet ferrous gluconate 324 mg (38 mg 324 mg PO DAILY 11/24/22 10/27/23 10/26/23 History iron) tablet furosemide 40 mg tablet 40 mg PO BID 11/24/22 10/27/23 10/26/23 History insulin aspart 6 - 8 unit subcut TID 10/27/23 10/27/23 10/26/23 History (niacinamide)(U-100) 100 unit/mL(3 mL) subcutaneous pen (Fiasp FlexTouch U-100 Insulin) Physical Exam Vital Signs and Narrative: Vital Signs: Last Vital Signs Temp 97.1 F 03/22/24 03:12 Pulse 84 03/22/24 03:12 Resp 16 03/22/24 03:12 BP 128/63 03/22/24 03:12 Pulse Ox 95 03/22/24 03:12 O2 Del Method Room Air 03/22/24 03:12 BMI result Body Mass Index 30.1 General: Well nourished. Awake and alert. In no obvious respiratory distress. Psychiatric: Pleasant, well kempt, cooperative (though interaction limited by poor history). Normal speech, cognition and affect. HEENT: Normocephalic, atraumatic. No pallor or jaundice. Moist oral mucus membranes. Neck: Supple. No JVD Lungs: Clear to auscultation bilaterally. No rales, rhonchi or wheezes Heart: RRR. Normal s1/s2. No murmurs, rubs or gallops. No peripheral edema. Abdomen: Obese, flabby, soft, non-tender. Normoactive bowel sounds. No visceromegaly. Genitourinary: Deferred Back/Spine/Pelvis: Deferred Skin: Warm, dry, well perfused. Normal turgor. No mottling. Normal capillary refill (< 2 seconds). Neurologic: Awake and alert. Intact speech & cognition. Normal gait & balance. CN II-XII grossly normal. Extremities: Normal muscle bulk, tone and power. Left pinky toe is black, boggy and with malodorous discharge. No peripheral edema. Good peripheral pulses. Results Labs 03/21/24 21:31 03/21/24 21:31 Labs: Laboratory Results - last 24 hr 03/21/24 03/21/24 03/21/24 21:31 22:30 22:46 MCV 101.1 H MCH 31.8 MCHC 31.5 RDW 13.2 Plt Count TNP MPV 12.2 Immature Gran % (Auto) 3.5 H Neut % (Auto) 83.7 H Lymph % (Auto) 6.4 L [place] % (Auto) 5.0 Eos % (Auto) 1.2 Baso % (Auto) 0.2 Lymph # (Auto) 1.0 L [place] # (Auto) 0.8 Eos # (Auto) 0.2 Baso # (Auto) 0.0 Abs Immat Gran (auto) 0.56 H Absolute Neuts (auto) 13.3 H Absolute Nucleated RBC 0.000 Nucleated RBC % (auto) 0.0 ESR > 140 H Anion Gap 18 Estim Creat Clear Calc 6.5 Estimated GFR 5 Random Glucose 142 H Lactic Acid 0.8 Calcium 7.1 L D Total Bilirubin 0.1 Direct Bilirubin < 0.2 AST 21 ALT 7 Alkaline Phosphatase 134 H C-Reactive Protein 9.58 H B-Natriuretic Peptide 142 H Total Protein 6.8 Albumin 2.8 L Stool Occult Blood NEGATIVE Blood Type O Positive Antibody Screen NEGATIVE Crossmatch See Detail Imaging Radiologist's Impressions: Plain x-ray of the left foot Question 5th proximal phalanx fracture versus destructive process Assessment and Plan (1) Osteomyelitis: Qualifiers: Osteomyelitis type: other acute Osteomyelitis location: foot Laterality: left Qualified Code(s): M86.172 - Other acute osteomyelitis, left ankle and foot Status: Acute (2) Diabetic infection of left foot: Status: Acute (3) Anemia: Qualifiers: Anemia type: due to chronic kidney disease Chronic kidney disease stage: stage 5 (GFR < 15), not on chronic dialysis Qualified Code(s): N18.5 - Chronic kidney disease, stage 5; D63.1 - Anemia in chronic kidney disease Status: Acute (4) Acute on chronic renal failure: Qualifiers: Acute renal failure type: unspecified Chronic kidney disease stage: stage 4 (GFR 15-29) Qualified Code(s): N17.9 - Acute kidney failure, unspecified; N18.4 - Chronic kidney disease, stage 4 (severe) Status: Acute (5) Metabolic acidosis: Status: Acute Plan 68-year-old female with past medical history of type 2 diabetes mellitus, stage IV CKD, hypertension, recurrent seizures, and nephrolithiasis here with 1. Left diabetic foot ulcer - likely with wet gangrene - admit and continue with IV antibiotics (renally dosed Vancomycin and Zosyn) - ID consult for additional care - may benefit from amputation 2. Severe anemia - likely AOCD - transfuse to keep hgb > 7 g/dl - consider initiation of erythropoeitin and resumption of iron 3. Acute on Chronic Renal Failure - previously stage 4 now stage 5 - will benefit from Nephrology consult 4. Type 2 Diabetes Mellitus - add sliding scale insulin coverage - check HgbA1c 5. Essential Hypertension - resume Amlodipine and Losartan 6. Metabolic acidosis - resume sodium bicarbonate 7. H/O seizure disorders - resume phenytoin and Keppra 8. Hyperlipidemia - resume atorvastatin Total time managing care of this patient today: 75 minutes. Quality Stroke Does the patient have a stroke diagnosis?: No VTE Prior VTE?: No VTE Risk Level:: Medical - moderate - high VTE Device Contraindication: N/A - Device Ordered VTE Drug Contraindication: N/A - Med Ordered
[2024-03-22 05:16] LABS: Hemoglobin 6.7 g/dl (12.0-16.0)
[2024-03-22] MEDS: Morphine Sulfate 4 MG/ML CARTRIDGE 2 MG IVPUSH (05:30)
[2024-03-22 05:34] LABS: Anion Gap 21 (12-20); Blood Urea Nitrogen 120 mg/dL (9-16); Calcium 7.1 mg/dL (8.4-10.2); Carbon Dioxide 8 mmol/L (22-29); Chloride 114 mmol/L (96-108); Creatinine Clr Calc Pharmacy 7.1; Estimated Glomerular Filt Rate 5; Glucose Random 145 mg/dL (60-115); Magnesium 1.8 mg/dL (1.6-2.6); Potassium 4.5 mmol/L (3.3-5.1); Sodium 138 mmol/L (135-145)
--- NOTE | 2024-03-22 05:40 | PC.NURSE ---
pt placed onto hospital bed for comfort, pt medicated per apr for 10 headache.
[2024-03-22] MEDS: Piperacillin Sodium/Tazobactam 2.25 GM in 0.9 % Sodium Chloride 50 ML IV ×3 (06:00→22:01)
--- NOTE | 2024-03-22 06:12 | PC.NURSE ---
initial 15 minutes of second blood transfusion completed, pt tolerated well, second unit infusing at 75ml/hr due to risk for taco.
[2024-03-22 07:45] LABS: Glucose, Whole Blood 136 mg/dL (60-115)
--- NOTE | 2024-03-22 09:29 | PC.NURSE ---
blood started at 75ml/hr - LS clear, VSS
--- NOTE | 2024-03-22 09:46 | PC.NURSE ---
pt increase in restlessness after start of 3rd unit of pRBCs, pt also had an increase in her BP from 136/61 to 178/75. Dr. Reynoso in ED at this time and came bedside to evaluate the pt
--- NOTE | 2024-03-22 10:35 | PHA.MEDREC ---
Addendum entered by Dennise Dueñas RPh 03/22/24 11:07: Reviewed by [facility] Original Note: Pharmacy Consult ? Medication Reconciliation Pharmacy has completed the medication reconciliation. Spoke to patients daughter at bedside through interpreter translator service to confirm med list. daughter was able to confirm patients medications. Daughter states patient no longer takes Metolazone 2.5 mg and Sertraline 100 mg. Daughter confirmed Amlodipine is 10 mg daily. Daughter says patient is still taking Lokelma, however last fill was 08/08/23 for 10 days.
[2024-03-22 11:55] LABS: Venous Blood Gas Refer to POC result
[2024-03-22 12:01] LABS: VBG Base Excess -20.8 mmol/L; VBG HCO3 8 mmol/L (22-26); VBG pCO2 27 mmHg; VBG pH 7.05 (7.32-7.43); VBG pO2 70 mmHg
[2024-03-22 12:05] LABS: Estimated Average Glucose 105 mg/dL; Hemoglobin A1C 73.7792 umol/L; Hemoglobin A1c % 5.3 % (<6.0); Total Hemoglobin (HGBA1C) 2134.3258 umol/L
[2024-03-22] MEDS: DAPTOmycin 620 MG in 0.9 % Sodium Chloride 50 ML 124.8 MG IV (12:05)
[2024-03-22 12:11] LABS: Anion Gap 18 (12-20); Blood Urea Nitrogen 115 mg/dL (9-16); Calcium 6.8 mg/dL (8.4-10.2); Chloride 118 mmol/L (96-108); Creatinine Clr Calc Pharmacy 7.2; Estimated Glomerular Filt Rate 6; Glucose Random 120 mg/dL (60-115); Sodium 140 mmol/L (135-145)
[2024-03-22 12:15] LABS: Carbon Dioxide 9 mmol/L (22-29)
[2024-03-22 12:47] LABS: Vitamin B12 628 pg/mL (200-900)
[2024-03-22 12:48] LABS: Folate 2.3 ng/mL (> or = 4.0)
[2024-03-22] MEDS: SODIUM BICARBONATE IV ×2 (12:59→22:21)
[2024-03-22] MEDS: DEXTROSE 5% IV ×2 (12:59→22:21)
[2024-03-22] MEDS: Ferrous Sulfate 324 MG TABLET.DR PO (13:05)
[2024-03-22] MEDS: amLODIPine Besylate 10 MG TABLET PO (13:05)
[2024-03-22 13:15] LABS: Glucose, Whole Blood 88 mg/dL (60-115)
--- NOTE | 2024-03-22 13:29 | PC.NURSE ---
Blood transfusion finished and wasted in TAR under this RN's name by pt.'s primary RN Samantha Horne
--- NOTE | 2024-03-22 13:30 | PC.NURSE ---
IR at bedside to take pt for dialysis cath. pt will return to ED prior to going upstairs
--- NOTE | 2024-03-22 14:07 | PM.PROC ---
Brief Operative Note Date of procedure: 03/22/24 Pre-op diagnosis: MICHAEL Post-op diagnosis: same Procedure: Ye Placement Right IJ 20 cm trialysis catheter placed using US and FL. Tip at cavoatrial junction. Ok for use. Anesthesia: local
--- NOTE | 2024-03-22 14:21 | P.EN_ITS ---
Event Note Date of Service: 03/22/24 Event Note: Day hospitalist update S: This history was taken in Jamaican from the patient. c/o GAITAN, L 5th toe pain persistent acidosis O: Temp Pulse Resp BP Pulse Ox O2 Del Method 98.1 F 86 14 178/75 H 99 Room Air 03/22/24 12:55 03/22/24 14:05 03/22/24 14:05 03/22/24 14:05 03/22/24 14:05 03/22/24 14:05 Gen: in no acute distress HEENT: sclera anicteric, moist mucus membranes Neck: supple Lungs: clear to auscultation bilaterally Heart: regular rate and rhythm, no murmurs Abd: soft, non-tender, non-distended Ext: no edema Skin: warm/well-perfused, L 5th toe gangrenous Neuro: alert and oriented x3, no focal findings Psych: appropriate affect labs: K 5, HCO3 9, BUN 115, SCr 7.37, pH 7.05 A/P: d1 for 68yo F with CKD5, DM2 with nephropathy, HTN, seizure disorder presenting with worsening L 5th toe gangrene admitted for osteomyelitis, found to have severe metabolic acidosis due to uremia/renal failure, severe anemia severe metabolic acidosis MICHAEL/CKD5 - 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 On 3rd unit pRBCs; recheck H+H afterwards; epo per Nephrology DM2 - ana-dose lispro HTN - amlodipine seizure disorder - levetiracetam + valproate + phenytoin VTE ppx - UFH dispo - TBD In my clinical judgment, the patient requires continued inpatient hospitalization for the following reasons: dialysis, IV ABX, transfusion Time Spent With Patient Time: Total time managing care of this patient today ____ minutes.
--- NOTE | 2024-03-22 15:02 | PM.PNNEP ---
Subjective Subjective Date of Service: 03/22/24 Principal diagnosis: Uremia and acidosis Interval history: Pt seen on HD Physical Exam Vital Signs: Vital Signs: Last Vital Signs Temp 97.1 F 03/22/24 14:36 Pulse 80 03/22/24 14:36 Resp 16 03/22/24 14:36 BP 162/63 H 03/22/24 14:36 Pulse Ox 98 03/22/24 14:36 O2 Del Method Room Air 03/22/24 14:36 BMI result Body Mass Index 30.1 Const: Other: Appearance: Alert. Oriented X3. No acute distress. Eyes: Pupils equal, round and reactive to light. ENT: Pharynx normal. Neck: Normal inspection. Neck supple. No lymph nodes noted. No crepitus CVS: Normal heart rate and rhythm. Pulses normal. Normal S1 and S2 Respiratory: No respiratory distress. Breath sounds normal. No Wheezing. No rales Abdomen: Soft and nontender. No rigidity. No distention. Patient has an abdominal hernia, easily reducible Skin: Skin warm and dry. Pale skin color. Normal skin turgor. See extremity below Extremities: No lower extremity edema. No Lacerations. No Rash. Patient's 5th toe on the left foot is necrotic. There is an ulcer in between the 4th and the 5th digits, foul smelling pus present. Neuro: Oriented X 3. No motor deficit. No sensory deficit. Moving all extremities. No slurred speech. CN 2 through 12 grossly intact Psych: calm, cooperative, normal affect Objective Data Labs 03/22/24 04:59 03/22/24 11:33 Labs: Laboratory Results - last 24 hr 03/21/24 03/21/24 03/21/24 21:31 22:30 22:46 WBC 15.9 H RBC 1.79 L D Hgb 5.7 L* D Hct 18.1 L* D MCV 101.1 H MCH 31.8 MCHC 31.5 RDW 13.2 Plt Count TNP MPV 12.2 Immature Gran % (Auto) 3.5 H Neut % (Auto) 83.7 H Lymph % (Auto) 6.4 L [place] % (Auto) 5.0 Eos % (Auto) 1.2 Baso % (Auto) 0.2 Lymph # (Auto) 1.0 L [place] # (Auto) 0.8 Eos # (Auto) 0.2 Baso # (Auto) 0.0 Abs Immat Gran (auto) 0.56 H Absolute Neuts (auto) 13.3 H Absolute Nucleated RBC 0.000 Nucleated RBC % (auto) 0.0 ESR > 140 H VBG pH VBG pCO2 VBG pO2 VBG HCO3 VBG O2 Saturation VBG Base Excess Sodium 136 Potassium 5.1 D Chloride 116 H Carbon Dioxide 7 L* D Anion Gap 18 BUN 120 H Creatinine 8.20 H* Estim Creat Clear Calc 6.5 Estimated GFR 5 POC Glucose Random Glucose 142 H Estimat Average Glucose Hemoglobin A1c % Lactic Acid 0.8 Calcium 7.1 L D Magnesium Total Bilirubin 0.1 Direct Bilirubin < 0.2 AST 21 ALT 7 Alkaline Phosphatase 134 H C-Reactive Protein 9.58 H B-Natriuretic Peptide 142 H Total Protein 6.8 Albumin 2.8 L Vitamin B12 Folate Stool Occult Blood NEGATIVE Blood Type O Positive Antibody Screen NEGATIVE Crossmatch See Detail 03/22/24 03/22/24 03/22/24 04:59 07:42 11:33 WBC 16.7 H RBC 2.08 L Hgb 6.7 L* Hct 21.2 L MCV 101.9 H MCH 32.2 MCHC 31.6 RDW 13.4 Plt Count 107 L D MPV 11.7 Immature Gran % (Auto) 3.8 H Neut % (Auto) 79.7 H Lymph % (Auto) 7.0 L [place] % (Auto) 7.8 Eos % (Auto) 1.5 Baso % (Auto) 0.2 Lymph # (Auto) 1.2 [place] # (Auto) 1.3 H Eos # (Auto) 0.3 Baso # (Auto) 0.0 Abs Immat Gran (auto) 0.64 H Absolute Neuts (auto) 13.3 H Absolute Nucleated RBC 0.000 Nucleated RBC % (auto) 0.0 ESR VBG pH VBG pCO2 VBG pO2 VBG HCO3 VBG O2 Saturation VBG Base Excess Sodium 138 140 Potassium 4.5 5.0 Chloride 114 H 118 H Carbon Dioxide 8 L* 9 L* Anion Gap 21 H 18 BUN 120 H 115 H Creatinine 7.52 H* 7.37 H* Estim Creat Clear Calc 7.1 7.2 Estimated GFR 5 6 POC Glucose 136 H Random Glucose 145 H 120 H Estimat Average Glucose 105 Hemoglobin A1c % 5.3 Lactic Acid Calcium 7.1 L 6.8 L Magnesium 1.8 Total Bilirubin Direct Bilirubin AST ALT Alkaline Phosphatase C-Reactive Protein B-Natriuretic Peptide Total Protein Albumin Vitamin B12 628 Folate 2.3 L Stool Occult Blood Blood Type Antibody Screen Crossmatch 03/22/24 03/22/24 11:50 13:12 WBC RBC Hgb Hct MCV MCH MCHC RDW Plt Count MPV Immature Gran % (Auto) Neut % (Auto) Lymph % (Auto) [place] % (Auto) Eos % (Auto) Baso % (Auto) Lymph # (Auto) [place] # (Auto) Eos # (Auto) Baso # (Auto) Abs Immat Gran (auto) Absolute Neuts (auto) Absolute Nucleated RBC Nucleated RBC % (auto) ESR VBG pH 7.05 L* VBG pCO2 27 VBG pO2 70 VBG HCO3 8 L VBG O2 Saturation 91.0 VBG Base Excess -20.8 Sodium Potassium Chloride Carbon Dioxide Anion Gap BUN Creatinine Estim Creat Clear Calc Estimated GFR POC Glucose 88 Random Glucose Estimat Average Glucose Hemoglobin A1c % Lactic Acid Calcium Magnesium Total Bilirubin Direct Bilirubin AST ALT Alkaline Phosphatase C-Reactive Protein B-Natriuretic Peptide Total Protein Albumin Vitamin B12 Folate Stool Occult Blood Blood Type Antibody Screen Crossmatch Procedures Date of Service Date of Service: 03/22/24 Assessment & Plan Assessment and plan (1) Metabolic acidosis: Status: Acute (2) ESRD (end stage renal disease): Status: Acute (3) Diabetic infection of left foot: Status: Acute (4) Anemia: Status: Acute (5) Kidney stone: Status: Acute Plan Full consult dictated HD today via temp IJ K per protocol Vol removal 1 L HD again in Am and on Monday Antibiotics as per medical team Transfuse to keep HB > 7.[address] abd and pelvis given renal stone and h/o obstruction Needs a Permcath Next week Out pt Hd has not been arranged - Needs to be done next week- Please contact renal MD covering nxt week Time Spent With Patient Time: Total time managing care of this patient today ____ minutes. Progress Note: Quality Stroke Does the patient have a stroke diagnosis?: No
[2024-03-22 15:12] LABS: Hematocrit 26.3 % (37.0-47.0); Mean Corpuscular HGB Conc 31.9 g/dl (31.0-35.0); Mean Corpuscular Hemoglobin 29.7 pg (27.0-33.0); Mean Corpuscular Volume 92.9 fL (80.0-98.0); PLT CLUMP 1; Red Blood Count 2.83 X10*6/uL (4.20-5.50)
[2024-03-22 15:19] LABS: Hemoglobin 8.4 g/dl (12.0-16.0); INTERNATIONAL NORM RATIO 0.9 (0.9-1.1)
[2024-03-22 15:21] LABS: Partial Thromboplastin Time 31.1 SEC (26.0-36.8)
[2024-03-22 15:36] LABS: Platelet Count 200 X10*3/uL (160-400); White Blood Count 16.4 X10*3/uL (4.8-10.8)
[2024-03-22 15:45] LABS: Anion Gap 19 (12-20); Blood Urea Nitrogen 120 mg/dL (9-16); Calcium 6.8 mg/dL (8.4-10.2); Carbon Dioxide 8 mmol/L (22-29); Chloride 117 mmol/L (96-108); Creatinine Clr Calc Pharmacy 7.4; Estimated Glomerular Filt Rate 6; Glucose Random 118 mg/dL (60-115); Potassium 4.7 mmol/L (3.3-5.1); Sodium 139 mmol/L (135-145)
[2024-03-22] MEDS: HYDROmorphone HCl 0.5 MG/0.5 ML SYRINGE IVPUSH ×2 (15:54→19:40)
--- NOTE | 2024-03-22 16:19 | PM.CNGS ---
History of Present Illness Consult details Consult date: 03/22/24 Requesting physician: Moses Reynoso Narrative: Patient is a 68-year-old female with past medical history of type 2 diabetes mellitus, stage IV CKD, hypertension, recurrent seizures, and nephrolithiasis who presented to the emergency room from home accompanied by her daughter for evaluation of an infected left small toe. There is no good history for trauma or injury and uncertain what is happened with her toe but left distal aspect of the little toe is gangrenous down to the bone. Patient was noted to be in acute renal failure and was admitted resuscitated dialysis catheter placed started on antibiotics and consult for left little toe gangrene was carried out Review of Systems Review of Systems: Yes Unobtainable due to mental status Neurologic: Reports confusion Psychiatric: Psychiatric: Reports confusion PMF Past Medical History Medical History (Updated 03/22/24 @ 16:22 by Aleja Harrison MD) ESRD (end stage renal disease) Generalized seizure Acute kidney injury CKD (chronic kidney disease) stage 3, GFR 30-59 ml/min CHF (congestive heart failure) Anemia Brain tumor (benign) Lower extremity edema Pneumonia Asthma Pulmonary nodule HLD (hyperlipidemia) Seizure Acute hypoxemic respiratory failure due to COVID-19 COVID-19 Kidney stone Depression Gastritis Diabetes Family History Family History Father CAD (coronary artery disease) Brother Lung cancer Sister Kidney stone Surgical History Surgical History H/O lithotripsy H/O ureteroscopy H/O cystoscopy S/P ureteral stent placement History of cholecystectomy H/O hernia repair Social History Social History Household Members: Children Housing: Apartment Do you presently have visiting nurse or other home services: Yes ([employer] 4hrs/day everyday) Alcohol intake: former Comment: pt sleeping at this time Patient Tobacco Use Status: Never used Tobacco e-Cigarette/Vaping Use: Never Used Advance Directives Date on File: 12/20/21 service: No Current occupational status: unemployed Meds Allergies Allergy/AdvReac Type Severity Reaction Status Date / Time Egg Derived Allergy Unknown Verified 03/21/24 18:41 Active Medications: Current Medications Acetaminophen (Acetaminophen 325 Mg Tablet) 650 mg PO Q6H PRN PRN Reason: Pain, Mild 1-3,fever,headache Last Admin: 03/22/24 09:20 Dose: 650 mg Amlodipine Besylate (Amlodipine Besylate 10 Mg Tablet) 10 mg PO DAILY [facility]; Protocol Last Admin: 03/22/24 13:05 Dose: 10 mg Aspirin (Aspirin Enteric Coated 81 Mg Tablet.) 81 mg PO DAILY [facility] Last Admin: 03/22/24 12:27 Dose: Not Given Calcium Carbonate (Calcium Carbonate 750 Mg Tab.Chew) 750 mg PO Q4H PRN PRN Reason: Heartburn Dextrose (Dextrose 50 % 25 Gm/50 Ml Syringe) 25 gm IVPUSH Q15M PRN; Protocol PRN Reason: per Hypoglycemia Standing Ord. Ferrous Sulfate (Ferrous Sulfate 324 Mg Tablet.) 324 mg PO DAILY [facility] Last Admin: 03/22/24 13:05 Dose: 324 mg Glucose (Glucose Gel 15 Gm Gel..Gram.) 15 gm PO Q15M PRN; Protocol PRN Reason: per Hypoglycemia Standing Ord. Hydromorphone HCl (Hydromorphone Hcl 0.5 Mg/0.5 Ml Syringe) 0.5 mg IVPUSH Q4H PRN; Protocol PRN Reason: Pain, Severe (Pain Scale 7-10) Last Admin: 03/22/24 15:54 Dose: 0.5 mg Sodium Chloride (Ns) 1,000 mls @ 100 mls/hr IVCONT .Q10H [facility] Last Admin: 03/22/24 13:11 Dose: 100 mls/hr Piperacillin Sod/Tazobactam (Sod 2.25 gm/ Sodium Chloride) 50 mls @ 100 mls/hr IV Q8H [facility] Last Admin: 03/22/24 13:10 Dose: 100 mls/hr Daptomycin 620 mg/ Sodium (Chloride) 62.4 mls @ 124.8 mls/hr IV Q48H [facility] Last Infusion: 03/22/24 13:22 Dose: Infused Sodium Bicarbonate 150 meq/ (Dextrose) 1,050 mls @ 150 mls/hr IV .Q7H [facility] Last Admin: 03/22/24 12:59 Dose: 150 mls/hr Folic Acid 1 mg/ Sodium (Chloride) 50.2 mls @ 100.4 mls/hr IV DAILY [facility] Insulin Human Lispro (Insulin Lispro 100 Unit/Ml 3 Ml Vial) 0 unit SUBCUT QIDACHS [facility]; Protocol Last Admin: 03/22/24 13:22 Dose: Not Given Levetiracetam (Levetiracetam 500 Mg Tablet) 500 mg PO BID [facility] Last Admin: 03/22/24 12:27 Dose: Not Given Magnesium Hydroxide (Milk Of Magnesia 30 Ml Oral.Susp) 30 ml PO DAILY PRN PRN Reason: Constipation Melatonin (Melatonin 3 Mg Tablet) 6 mg PO BEDTIME PRN PRN Reason: Insomnia Ondansetron HCl (Ondansetron Hcl 4 Mg/2 Ml Vial) 4 mg IVPUSH Q8H PRN PRN Reason: Nausea and Vomiting Phenytoin Sodium (Phenytoin Sodium Extended 100 Mg Capsule) 100 mg PO TID [facility] Senna (Sennosides 8.6 Mg Tablet) 17.2 mg PO BEDTIME PRN PRN Reason: constipation Sodium Chloride (0.9 % Sodium Chloride Flush 3 Ml Syringe) 3 ml IVFLUSH QSHIFT [facility] Last Admin: 03/22/24 07:59 Dose: Not Given Sodium Zirconium Cyclosilicate (Sodium Zirconium Cyclosilicate 10 Gm Powd.Pack) 10 gm PO MOWEFR [facility] Trazodone HCl (Trazodone Hcl 100 Mg Tablet) 100 mg PO BEDTIME PRN PRN Reason: Sleep Valproic Acid (Valproic Acid 250 Mg Capsule) 1,000 mg PO BID [facility] Vitamin D (Cholecalciferol (Vitamin D3) 25 Mcg Tablet) 50 mcg PO DAILY [facility] Home Medications ?Medication ?Instructions ?Recorded ?Confirmed ?Last Taken ?Type blood sugar diagnostic (FreeStyle 03/28/20 09/09/22 Unknown History Lite Strips) blood-glucose meter (FreeStyle 03/28/20 09/09/22 Unknown History [place] Lite kit) lancets 28 gauge (FreeStyle 03/28/20 09/09/22 Unknown History Lancets) omeprazole 40 mg capsule,delayed 40 mg PO BID@0630,1630 10/02/21 03/22/24 03/21/24 History release blood pressure test kit-large #1 ea 10/12/21 09/09/22 Unknown History atorvastatin 80 mg tablet 80 mg PO DAILY 12/20/21 03/22/24 03/21/24 History nebulizers 01/20/22 09/09/22 Unknown History amlodipine 10 mg tablet 10 mg PO DAILY 05/29/22 03/22/24 03/21/24 History aspirin 81 mg tablet,delayed 81 mg PO DAILY 05/29/22 03/22/24 03/21/24 History release lancets 33 gauge (TRUEplus Lancets) #100 ea 06/07/22 09/09/22 Unknown History trazodone 50 mg tablet 100 mg PO BEDTIME PRN Sleep 06/07/22 03/22/24 10/26/23 History cholecalciferol (vitamin D3) 50 50 mcg PO DAILY 11/24/22 03/22/24 03/21/24 History mcg (2,000 unit) tablet ferrous gluconate 324 mg (38 mg 324 mg PO DAILY 11/24/22 03/22/24 03/21/24 History iron) tablet furosemide 40 mg tablet 80 mg PO BID 11/24/22 03/22/24 03/21/24 History insulin aspart 6 - 8 unit subcut TID 10/27/23 03/22/24 03/21/24 History (niacinamide)(U-100) 100 unit/mL(3 mL) subcutaneous pen (Fiasp FlexTouch U-100 Insulin) acetaminophen 650 mg 650 mg PO Q8H PRN mild pain 03/22/24 03/22/24 Unknown History tablet,extended release diclofenac sodium 1 % topical gel 2 g topical BEDTIME PRN Pain 03/22/24 03/22/24 03/21/24 History losartan 100 mg tablet 100 mg PO BID 03/22/24 03/22/24 03/21/24 History valproic acid 250 mg capsule 1,000 mg PO BID 03/22/24 03/22/24 03/21/24 History Physical Exam Vital Signs: Vital Signs: Last Vital Signs Temp 97.7 F 03/22/24 15:19 Pulse 80 03/22/24 15:19 Resp 18 03/22/24 15:54 BP 142/70 H 03/22/24 15:19 Pulse Ox 96 03/22/24 15:19 O2 Del Method Room Air 03/22/24 15:19 BMI result Body Mass Index 30.1 Const: General: confusion Nutritional Appearance: obese Orientation/consciousness: confusion GI: Other: Abdomen is rotund she has a midline incision well healed in the right upper quadrant subcostal incision also well healed with a large semi reducible hernia which is a little tender to palpation pushing. No overlying skin changes. Skin: Other: Left little toe distal phalanx and maybe middle phalanx as well is necrotic with dry and wet black dark gangrene with soft tissue involvement and desiccated bone exposed. The proximal toe area at the junction of the foot looks relatively healthy. All the other toes look good. She has a palpable pedal pulse. The area seems to be little tender to manipulation. All the other toes on this foot look healthy in the rest of the foot looks good Neuro: General: confusion Results Labs 03/22/24 14:58 03/22/24 14:58 Labs: Abnormal lab results 03/21/24 03/21/24 03/22/24 Range/Units 21:31 22:30 04:59 WBC 15.9 H 16.7 H (4.8-10.8) X10*3/uL RBC 1.79 L D 2.08 L (4.20-5.50) X10*6/uL Hgb 5.7 L* D 6.7 L* (12.0-16.0) g/dl Hct 18.1 L* D 21.2 L (37.0-47.0) % MCV 101.1 H 101.9 H (80.0-98.0) fL RDW (11.0-16.0) % Plt Count 107 L D (160-400) X10*3/uL Immature Gran % (Auto) 3.5 H 3.8 H (0.0-0.4) % Neut % (Auto) 83.7 H 79.7 H (45-73) % Lymph % (Auto) 6.4 L 7.0 L (20-40) % Lymph # (Auto) 1.0 L (1.2-4.9) X10*3/uL Tripp # (Auto) 1.3 H (0.1-1.2) X10*3/uL Abs Immat Gran (auto) 0.56 H 0.64 H (0.00-0.03) X10*3/uL Absolute Neuts (auto) 13.3 H 13.3 H (2.0-8.3) x10*3/uL ESR > 140 H (0-20) MM/HR VBG pH (7.32-7.43) VBG HCO3 (22-26) mmol/L Chloride 116 H 114 H (96-108) mmol/L Carbon Dioxide 7 L* D 8 L* (22-29) mmol/L Anion Gap 21 H (12-20) BUN 120 H 120 H (9-16) mg/dL Creatinine 8.20 H* 7.52 H* (0.5-1.4) mg/dL POC Glucose (60-115) mg/dL Random Glucose 142 H 145 H (60-115) mg/dL Calcium 7.1 L D 7.1 L (8.4-10.2) mg/dL Alkaline Phosphatase 134 H (39-117) U/L C-Reactive Protein 9.58 H (< or = 0.50) mg/dL B-Natriuretic Peptide 142 H (<100) pg/mL Albumin 2.8 L (3.5-5.0) g/dL Folate (> or = 4.0) ng/mL Crossmatch See Detail 03/22/24 03/22/24 03/22/24 Range/Units 07:42 11:33 11:50 WBC (4.8-10.8) X10*3/uL RBC (4.20-5.50) X10*6/uL Hgb (12.0-16.0) g/dl Hct (37.0-47.0) % MCV (80.0-98.0) fL RDW (11.0-16.0) % Plt Count (160-400) X10*3/uL Immature Gran % (Auto) (0.0-0.4) % Neut % (Auto) (45-73) % Lymph % (Auto) (20-40) % Lymph # (Auto) (1.2-4.9) X10*3/uL Tripp # (Auto) (0.1-1.2) X10*3/uL Abs Immat Gran (auto) (0.00-0.03) X10*3/uL Absolute Neuts (auto) (2.0-8.3) x10*3/uL ESR (0-20) MM/HR VBG pH 7.05 L* (7.32-7.43) VBG HCO3 8 L (22-26) mmol/L Chloride 118 H (96-108) mmol/L Carbon Dioxide 9 L* (22-29) mmol/L Anion Gap (12-20) BUN 115 H (9-16) mg/dL Creatinine 7.37 H* (0.5-1.4) mg/dL POC Glucose 136 H (60-115) mg/dL Random Glucose 120 H (60-115) mg/dL Calcium 6.8 L (8.4-10.2) mg/dL Alkaline Phosphatase (39-117) U/L C-Reactive Protein (< or = 0.50) mg/dL B-Natriuretic Peptide (<100) pg/mL Albumin (3.5-5.0) g/dL Folate 2.3 L (> or = 4.0) ng/mL Crossmatch 03/22/24 Range/Units 14:58 WBC 16.4 H (4.8-10.8) X10*3/uL RBC 2.83 L D (4.20-5.50) X10*6/uL Hgb 8.4 L D (12.0-16.0) g/dl Hct 26.3 L D (37.0-47.0) % MCV (80.0-98.0) fL RDW 20.0 H (11.0-16.0) % Plt Count (160-400) X10*3/uL Immature Gran % (Auto) (0.0-0.4) % Neut % (Auto) (45-73) % Lymph % (Auto) (20-40) % Lymph # (Auto) (1.2-4.9) X10*3/uL Tripp # (Auto) (0.1-1.2) X10*3/uL Abs Immat Gran (auto) (0.00-0.03) X10*3/uL Absolute Neuts (auto) (2.0-8.3) x10*3/uL ESR (0-20) MM/HR VBG pH (7.32-7.43) VBG HCO3 (22-26) mmol/L Chloride 117 H (96-108) mmol/L Carbon Dioxide 8 L* (22-29) mmol/L Anion Gap (12-20) BUN 120 H (9-16) mg/dL Creatinine 7.21 H* (0.5-1.4) mg/dL POC Glucose (60-115) mg/dL Random Glucose 118 H (60-115) mg/dL Calcium 6.8 L (8.4-10.2) mg/dL Alkaline Phosphatase (39-117) U/L C-Reactive Protein (< or = 0.50) mg/dL B-Natriuretic Peptide (<100) pg/mL Albumin (3.5-5.0) g/dL Folate (> or = 4.0) ng/mL Crossmatch Short CBC 03/21/24 03/22/24 03/22/24 Range/Units 21:31 04:59 14:58 WBC 15.9 H 16.7 H 16.4 H (4.8-10.8) X10*3/uL Hgb 5.7 L* D 6.7 L* 8.4 L D (12.0-16.0) g/dl Hct 18.1 L* D 21.2 L 26.3 L D (37.0-47.0) % Plt Count TNP 107 L D 200 D BMP 03/21/24 03/22/24 03/22/24 21:31 04:59 11:33 Sodium 136 138 140 Potassium 5.1 D 4.5 5.0 Chloride 116 H 114 H 118 H Carbon Dioxide 7 L* D 8 L* 9 L* BUN 120 H 120 H 115 H Creatinine 8.20 H* 7.52 H* 7.37 H* Calcium 7.1 L D 7.1 L 6.8 L 03/22/24 14:58 Sodium 139 Potassium 4.7 Chloride 117 H Carbon Dioxide 8 L* BUN 120 H Creatinine 7.21 H* Calcium 6.8 L Liver Function 03/21/24 Range/Units 21:31 Total Bilirubin 0.1 (0.0-1.0) mg/dL Direct Bilirubin < 0.2 (0.0-0.5) mg/dL AST 21 (5-31) U/L ALT 7 (0-31) U/L Alkaline Phosphatase 134 H (39-117) U/L Albumin 2.8 L (3.5-5.0) g/dL All other labs normal. Imaging Additional studies: Patient: Lori Land MR#: [id number] : 1955 Acct:[id number] Age/Sex: 68 / F ADM Date: 03/21/24 Loc: HO.ED Attending Dr: Ordering Physician: Bethany Barber MD Date of Service: 03/21/24 Procedure(s): XR foot LT min 3V Accession Number(s): [id number] cc: Bethany Barber MD; Physician,Unknown ~ CLINICAL HISTORY: necrotic 5th toe Left foot three views Comparison: 02/28/2019 Findings: Lucency noted mid shaft 5th proximal phalanx. Question fracture versus erosive process. Degenerative change in multiple joints. Extensive vascular calcification in the foot. Impression: Question 5th proximal phalanx fracture versus destructive process This document has been electronically signed by: Ayan Steele MD on 03/21/2024 22:24:06 Dictated By: Ayan Steele MD Signed By: <Electronically signed by Ayan Steele MD in OV> 03/21/242224 DD/ 23 TD/TT: 03/21/242223 Agency Sales Director: Assessment and Plan (1) Gangrene of toe of left foot: Status: Acute Plan 68-year-old female elevated white count left toe with gangrene most likely will need an amputation or will auto amputate. At this point patient's renal status is the most concerning thing she has already been started on antibiotics and dialysis catheter was urgently placed. Now plan is for her to undergo dialysis this evening. For now plan for the toe we will be conservative care with Betadine paint dressings to be carried out daily and IV antibiotics and we will re-evaluate over the next day or 2. Hopefully we can get control of the wet gangrene turned to dry gangrene and allow furthermore critical aspects of her medical care to be treated such as the need for dialysis at her elevated creatinine and all that that concerns. We will see how things progress but maybe able to even do an amputation at bedside as she does not seem to have great sensation as long as bleeding issues are not a concern. Procedures Date of Service Date of Service: 03/22/24
[2024-03-22] MEDS: Folic Acid 1 MG in 0.9 % Sodium Chloride 50 ML 100.4 MG IV (17:34)
[2024-03-22] MEDS: Butalb/Acetamin/Caff 50/325/40 TABLET 1 TAB PO (17:40)
[2024-03-22 21:12] LABS: Glucose, Whole Blood 116 mg/dL (60-115)
[2024-03-22] MEDS: ondansetron HCL 4 MG/2 ML VIAL IVPUSH (22:01)
[2024-03-22] MEDS: Phenytoin Sodium Extended 100 MG CAPSULE PO (22:03)
[2024-03-22] MEDS: Valproic Acid 250 MG CAPSULE 1000 MG PO (22:03)
[2024-03-22] MEDS: levETIRAcetam 500 MG TABLET PO (22:03)
--- NOTE | 2024-03-22 23:10 | PC.NURSE ---
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
[2024-03-23] VITALS (7 sets, daily range): BP systolic 121–188; BP diastolic 58–81; PULSE 84–93; RESP 16–18; TEMP 36.1–37.1; O2SAT 97–99
[2024-03-23] MEDS: hydrOXYzine HCL 25 MG TABLET PO ×2 (00:25→22:06)
[2024-03-23] MEDS: Acetaminophen 325 MG TABLET 650 MG PO ×2 (00:25→23:09)
[2024-03-23] MEDS: Melatonin 3 MG TABLET 6 MG PO ×2 (00:25→22:06)
[2024-03-23] MEDS: traZODone HCL 100 MG TABLET PO ×2 (00:26→22:06)
--- NOTE | 2024-03-23 01:32 | CONS_ITS ---
DATE OF SERVICE: REASON FOR CONSULTATION: Consult requested by the medical team to evaluate and help in management of patient with severe renal insufficiency/uremia. HISTORY OF PRESENT ILLNESS: Patient is a 68-year-old Kazakh-speaking female who is a poor historian and confused and not giving much history, past medical history of type 2 diabetes mellitus, stage 5 CKD, followed by Dr. Meehan with a baseline creatinine of around 5.0, hypertension, recurrent seizures, history of nephrolithiasis, who presented to the emergency room accompanied by her daughter for evaluation of infected small toe. Apparently, daughter noted that the left small toe was black and discolored. There was malodorous discharge. Apparently, she clipped her nail about 5 to 6 days ago. She had generalized malaise without any fever, chills, chest pain, shortness of breath. In the ER, patient's vitals were stable. In fact, her blood pressure was on the high side. Lab work showed the patient had leukocytosis, white count of 16 with neutrophils of 83%. Her serum creatinine was significantly elevated and this morning, she was very acidotic with a bicarbonate level of . Renal consult has been requested to help with management of severe worsening renal insufficiency and acidosis. She did receive intravenous vancomycin and Zosyn. REVIEW OF SYSTEMS: As noted above. Other system review negative. PAST MEDICAL HISTORY: History of generalized seizures, history of stage 5 CKD, followed by Dr. Meehan in the setting of likely diabetes and hypertension. History of CHF, anemia, benign brain tumor, lower extremity edema which is chronic, history of pneumonia, asthma, pulmonary nodule, hyperlipidemia, seizures, history of COVID-19 infection in the past, history of renal stone, depression, gastritis, and type 2 diabetes mellitus. FAMILY HISTORY: Father has coronary artery disease. Brother has lung cancer and sister has kidney stones. PAST SURGICAL HISTORY: Includes history of lithotripsy, ureteroscopy, cystoscopy, ureteral stent placement, history of cholecystectomy and history of hernia repair. PERSONAL AND SOCIAL HISTORY: Patient does not smoke. Lives in an apartment. Former alcohol user, presently not drinking. Does not use any drugs. ALLERGIES: PATIENT HAS ALLERGIES TO EGGS. NO KNOWN DRUG ALLERGIES. MEDICATIONS: At home were reviewed. PHYSICAL EXAMINATION: GENERAL: Patient is resting in the ER. Awake, alert. Lethargic. VITAL SIGNS: Blood pressure is 162/63, pulse 80, temperature is 97.1 degrees Fahrenheit. HEENT: Shows pupils are equal, round, and reactive bilaterally to light. No jugular venous distention is noted. Mucosa dry. There is no scleral icterus or conjunctival congestion. CARDIOVASCULAR SYSTEM: S1, S2 without rub. RESPIRATORY SYSTEM: Mildly decreased in bases. No crepitation or rhonchi is noted. ABDOMEN: Obese, soft. Bowel sounds normal. EXTREMITIES: Showed chronic changes with toe lesion. LABORATORY DATA: Labs done today; WBC 16.7, hemoglobin 6.7, hematocrit 21.2, platelets where 107. Sodium 140, potassium 5.5, chloride 118, CO2 of 9, anion gap 18, BUN 115, creatinine 7.37, estimated GFR 6, glucose 120. Hemoglobin A1c 5.3. Lactic acid 0.8, calcium 6.8, magnesium 1.8. BNP 142, albumin 2.8, folate 2.3. IMPRESSION: 1. 68-year-old female with severe worsening renal function, now end-stage renal disease. At baseline, patient has had stage 5 chronic kidney disease in the setting of diabetes and hypertension, followed by Dr. Meehan in our office. 2. Uremia. 3. Mild anion gap metabolic acidosis in the setting of worsening renal function. 4. Severe anemia. 5. Uncontrolled hypertension. 6. Toe infection/gangrene. RECOMMENDATIONS: At this juncture, patient requires renal replacement therapy. I did discuss with the medical team and the patient now has a temporary IJ dialysis catheter in the right IJ area. I have given orders for the dialysis nursing staff to dialyze patient today. We will dialyze patient again in a.m. and on Monday. Given history of renal stones, I recommend doing an imaging study of the abdomen and pelvis to rule out obstructive uropathy. I also recommend transfusing patient as hemoglobin is low at 6.7. Sometime, next week, we need to convert the IJ to a PermCath. Please contact renal team next week to arrange for outpatient dialysis for the patient in the outpatient dialysis unit. Antibiotic management as per medical team. Thank you for allowing me to participate in medical management of the patient. ADDENDUM: I did discuss in detail regarding this patient with Dr. Reynoso. MD JESÚS Olvera/MODL / [id number]
[2024-03-23 06:33] LABS: Hematocrit 23.2 % (37.0-47.0); Mean Corpuscular HGB Conc 34.5 g/dl (31.0-35.0); Mean Corpuscular Hemoglobin 30.3 pg (27.0-33.0); Mean Corpuscular Volume 87.9 fL (80.0-98.0); NRBC Pct Auto 0.2 /100WBC (0.0-0.2); PLT CLUMP 1; Red Blood Count 2.64 X10*6/uL (4.20-5.50); Red Cell Distribution Width 19.7 % (11.0-16.0)
[2024-03-23] MEDS: Piperacillin Sodium/Tazobactam 2.25 GM in 0.9 % Sodium Chloride 50 ML IV ×3 (06:40→22:07)
[2024-03-23 06:41] LABS: White Blood Count 13.3 X10*3/uL (4.8-10.8)
[2024-03-23 06:51] LABS: Anion Gap 19 (12-20); Blood Urea Nitrogen 69 mg/dL (9-16); Calcium 6.8 mg/dL (8.4-10.2); Carbon Dioxide 19 mmol/L (22-29); Chloride 107 mmol/L (96-108); Creatinine Clr Calc Pharmacy 13.6; Estimated Glomerular Filt Rate 9; Glucose Random 105 mg/dL (60-115); Potassium 3.3 mmol/L (3.3-5.1); Sodium 142 mmol/L (135-145)
[2024-03-23 07:21] LABS: Glucose, Whole Blood 150 mg/dL (60-115)
[2024-03-23] MEDS: 0.9 % Sodium Chloride Flush 3 ML SYRINGE IVFLUSH ×2 (07:44→21:14)
[2024-03-23 08:25] LABS: HBS Num1 0.66 mIU/mL (0-7.99); HBc Num1 0.15 S/CO (0.00-0.79); HBsAGNum1 0.42 S/CO (0.00-0.99); Hepatitis B Core Antibody Nonreactive (Nonreactive); Hepatitis B Surface Antigen Negative (Negative); ~Hepatitis B Surface Antibody NONREACTIVE (Nonreactive)
[2024-03-23] MEDS: levETIRAcetam 500 MG TABLET PO ×2 (09:39→22:07)
[2024-03-23] MEDS: Valproic Acid 250 MG CAPSULE 1000 MG PO ×2 (09:39→22:07)
[2024-03-23] MEDS: Ferrous Sulfate 324 MG TABLET.DR PO (09:40)
[2024-03-23] MEDS: Folic Acid 1 MG in 0.9 % Sodium Chloride 50 ML 100.4 MG IV (09:40)
[2024-03-23] MEDS: Aspirin Enteric Coated 81 MG TABLET.DR PO (09:40)
[2024-03-23] MEDS: amLODIPine Besylate 10 MG TABLET PO (09:40)
[2024-03-23] MEDS: Phenytoin Sodium Extended 100 MG CAPSULE PO ×2 (09:40→22:07)
[2024-03-23] MEDS: Cholecalciferol (Vitamin D3) 25 MCG TABLET 50 MCG PO (09:40)
--- NOTE | 2024-03-23 10:59 | MHC.CM.PN ---
Addendum entered by Kenyatta Mcclain 03/23/24 11:05: CORRECTION: IT WAS NOT [facility] PT WAS ACTIVE WITH BEFORE PER EMR, SHE HAS BEEN WITH [facility] DAUGHTER WOULD PREFER ONE OF THEM RETURN REFERRALS MADE Original Note: PT WAS OFF UNIT, CM MET WITH PTS DAUGHTER/HCP WITH A FEED MANAGEMENT ADVISOR PT LIVES WITH HER DAUGHTER AND DAUGHTERS FAMILY SHE HAS 4 HOURS OF [employer] DAILY, HOWEVER HER DAUGHTER STATES SHE WILL BE LEAVING HER JOB TO PROVIDE FT CARE PT USES A [employer]. [employer], HOWEVER DAUGHTER STATES THE PT RARELY AMBULATES BECAUSE SHE IS UNSTEADY AND NOW HAS A WOUND ON HER FOOT DAUGHTER STATES PT WAS NOT ON HD DRIVER/GUIDE, HOWEVER HAS NEEDED IT SINCE ADMISSION, SHE STATES IF IT IS NEEDED AFTER DC, SHE WILL PROVIDE TRANSPORT. HCP ON FILE PCP: YURY ESQUEDA IMM DELIVERED DCP: HOME, RESUME [employer] [facility] ? NEW [facility] PER DAUGHTERS STATED PREFERENCE, A REFERRAL WAS MADE TO [facility] DAUGHTER WILL PROVIDE TRANSPORT
--- NOTE | 2024-03-23 11:45 | PM.UROCN ---
History of Present Illness Consult details Consult date: 03/23/24 Narrative: Lori is a lithuanian speaking female with ARF on CRF, admitted with uremia. Pt came in with black toe. Seen by Nephrology, HD planned. Urology called for CT scan findings suggestive of empheseamatous pyelo Review of Systems Review of Systems: Yes all other systems are reviewed and are negative Constitutional: Constitutional: Reports no additional constitutional complaints Eyes: Eyes: Reports no additional eye complaints ENT: Reports system reviewed and no additional complaints, except as documented Cardiovascular: Cardiovascular: Reports no additional cardiovascular complaints Respiratory: Respiratory: Reports no additional respiratory complaints Gastrointestinal: Gastrointestinal: Reports no additional gastrointestinal complaints Genitourinary: Genitourinary: Reports as per HPI Musculoskeletal: Musculoskeletal: Reports no additional musculoskeletal complaints Integumentary/Breasts: Skin/Breast: Reports system reviewed and no additional complaints, except as docu Neurologic: Reports system reviewed and no additional complaints, except as documented Psychiatric: Psychiatric: Reports no additional psychiatric complaints Endocrine: Endocrine: Reports no additional endocrine complaints Hematologic/Lymphatic: Hematologic/Lymphatic: Reports no additional hematologic/lymphatic complaints Allergic/Immunologic: Allergic/Immunologic: Reports no additional allergic/immunologic complaints [facility] Past Medical History Medical History ESRD (end stage renal disease) Generalized seizure Acute kidney injury CKD (chronic kidney disease) stage 3, GFR 30-59 ml/min CHF (congestive heart failure) Anemia Brain tumor (benign) Lower extremity edema Pneumonia Asthma Pulmonary nodule HLD (hyperlipidemia) Seizure Acute hypoxemic respiratory failure due to COVID-19 COVID-19 Kidney stone Depression Gastritis Diabetes Family History Family History Father CAD (coronary artery disease) Brother Lung cancer Sister Kidney stone Surgical History Surgical History H/O lithotripsy H/O ureteroscopy H/O cystoscopy S/P ureteral stent placement History of cholecystectomy H/O hernia repair Social History Social History Household Members: Family Housing: Apartment Do you presently have visiting nurse or other home services: No Alcohol intake: former Comment: pt sleeping at this time Patient Tobacco Use Status: Never used Tobacco e-Cigarette/Vaping Use: Never Used Advance Directives Date on File: 12/20/21 service: No Current occupational status: unemployed Meds Allergies Allergy/AdvReac Type Severity Reaction Status Date / Time Egg Derived Allergy Unknown Verified 03/21/24 18:41 Active Medications: Current Medications Acetaminophen (Acetaminophen 325 Mg Tablet) 650 mg PO Q6H PRN PRN Reason: Pain, Mild 1-3,fever,headache Last Admin: 03/23/24 00:25 Dose: 650 mg Amlodipine Besylate (Amlodipine Besylate 10 Mg Tablet) 10 mg PO DAILY [facility]; Protocol Last Admin: 03/23/24 09:40 Dose: 10 mg Aspirin (Aspirin Enteric Coated 81 Mg Tablet.) 81 mg PO DAILY [facility] Last Admin: 03/23/24 09:40 Dose: 81 mg Calcium Carbonate (Calcium Carbonate 750 Mg Tab.Chew) 750 mg PO Q4H PRN PRN Reason: Heartburn Dextrose (Dextrose 50 % 25 Gm/50 Ml Syringe) 25 gm IVPUSH Q15M PRN; Protocol PRN Reason: per Hypoglycemia Standing Ord. Ferrous Sulfate (Ferrous Sulfate 324 Mg Tablet.) 324 mg PO DAILY [facility] Last Admin: 03/23/24 09:40 Dose: 324 mg Glucose (Glucose Gel 15 Gm Gel..Gram.) 15 gm PO Q15M PRN; Protocol PRN Reason: per Hypoglycemia Standing Ord. Hydromorphone HCl (Hydromorphone Hcl 0.5 Mg/0.5 Ml Syringe) 0.5 mg IVPUSH Q4H PRN; Protocol PRN Reason: Pain, Severe (Pain Scale 7-10) Last Admin: 03/22/24 19:40 Dose: 0.5 mg Hydroxyzine HCl (Hydroxyzine Hcl 25 Mg Tablet) 25 mg PO Q8H PRN PRN Reason: Anxiety Last Admin: 03/23/24 00:25 Dose: 25 mg Piperacillin Sod/Tazobactam (Sod 2.25 gm/ Sodium Chloride) 50 mls @ 100 mls/hr IV Q8H [facility] Last Infusion: 03/23/24 07:44 Dose: Infused Daptomycin 620 mg/ Sodium (Chloride) 62.4 mls @ 124.8 mls/hr IV Q48H [facility] Last Infusion: 03/22/24 13:22 Dose: Infused Folic Acid 1 mg/ Sodium (Chloride) 50.2 mls @ 100.4 mls/hr IV DAILY [facility] Last Infusion: 03/23/24 10:55 Dose: Infused Insulin Human Lispro (Insulin Lispro 100 Unit/Ml 3 Ml Vial) 0 unit SUBCUT QIDACHS [facility]; Protocol Last Admin: 03/23/24 09:40 Dose: Not Given Levetiracetam (Levetiracetam 500 Mg Tablet) 500 mg PO BID [facility] Last Admin: 03/23/24 09:39 Dose: 500 mg Magnesium Hydroxide (Milk Of Magnesia 30 Ml Oral.Susp) 30 ml PO DAILY PRN PRN Reason: Constipation Melatonin (Melatonin 3 Mg Tablet) 6 mg PO BEDTIME PRN PRN Reason: Insomnia Last Admin: 03/23/24 00:25 Dose: 6 mg Ondansetron HCl (Ondansetron Hcl 4 Mg/2 Ml Vial) 4 mg IVPUSH Q8H PRN PRN Reason: Nausea and Vomiting Last Admin: 03/22/24 22:01 Dose: 4 mg Phenytoin Sodium (Phenytoin Sodium Extended 100 Mg Capsule) 100 mg PO TID [facility] Last Admin: 03/23/24 09:40 Dose: 100 mg Senna (Sennosides 8.6 Mg Tablet) 17.2 mg PO BEDTIME PRN PRN Reason: constipation Sodium Chloride (0.9 % Sodium Chloride Flush 3 Ml Syringe) 3 ml IVFLUSH QSHIFT [facility] Last Admin: 03/23/24 07:44 Dose: 3 ml Sodium Zirconium Cyclosilicate (Sodium Zirconium Cyclosilicate 10 Gm Powd.Pack) 10 gm PO MOWEFR [facility] Last Admin: 03/22/24 16:41 Dose: Not Given Trazodone HCl (Trazodone Hcl 100 Mg Tablet) 100 mg PO BEDTIME PRN PRN Reason: Sleep Last Admin: 03/23/24 00:26 Dose: 100 mg Valproic Acid (Valproic Acid 250 Mg Capsule) 1,000 mg PO BID [facility] Last Admin: 03/23/24 09:39 Dose: 1,000 mg Vitamin D (Cholecalciferol (Vitamin D3) 25 Mcg Tablet) 50 mcg PO DAILY [facility] Last Admin: 03/23/24 09:40 Dose: 50 mcg Home Medications ?Medication ?Instructions ?Recorded ?Confirmed ?Last Taken ?[facility] 09/09/22 Unknown History Lite Strips) blood-glucose meter (FreeStyle 03/28/20 09/09/22 Unknown History [place] Lite kit) lancets 28 gauge (FreeStyle 03/28/20 09/09/22 Unknown History Lancets) omeprazole 40 mg capsule,delayed 40 mg PO BID@0630,1630 10/02/21 03/22/24 03/21/24 History release blood pressure test kit-large #1 ea 10/12/21 09/09/22 Unknown History atorvastatin 80 mg tablet 80 mg PO DAILY 12/20/21 03/22/24 03/21/24 History nebulizers 01/20/22 09/09/22 Unknown History amlodipine 10 mg tablet 10 mg PO DAILY 05/29/22 03/22/24 03/21/24 History aspirin 81 mg tablet,delayed 81 mg PO DAILY 05/29/22 03/22/24 03/21/24 History release lancets 33 gauge (TRUEplus Lancets) #100 ea 06/07/22 09/09/22 Unknown History trazodone 50 mg tablet 100 mg PO BEDTIME PRN Sleep 06/07/22 03/22/24 10/26/23 History cholecalciferol (vitamin D3) 50 50 mcg PO DAILY 11/24/22 03/22/24 03/21/24 History mcg (2,000 unit) tablet ferrous gluconate 324 mg (38 mg 324 mg PO DAILY 11/24/22 03/22/24 03/21/24 History iron) tablet furosemide 40 mg tablet 80 mg PO BID 11/24/22 03/22/24 03/21/24 History insulin aspart 6 - 8 unit subcut TID 10/27/23 03/22/24 03/21/24 History (niacinamide)(U-100) 100 unit/mL(3 mL) subcutaneous pen (Fiasp FlexTouch U-100 Insulin) acetaminophen 650 mg 650 mg PO Q8H PRN mild pain 03/22/24 03/22/24 Unknown History tablet,extended release diclofenac sodium 1 % topical gel 2 g topical BEDTIME PRN Pain 03/22/24 03/22/24 03/21/24 History losartan 100 mg tablet 100 mg PO BID 03/22/24 03/22/24 03/21/24 History valproic acid 250 mg capsule 1,000 mg PO BID 03/22/24 03/22/24 03/21/24 History Physical Exam Vital Signs: Vital Signs: Last Vital Signs Temp 97.4 F 03/23/24 11:39 Pulse 84 03/23/24 11:39 Resp 18 03/23/24 11:39 BP 121/58 L 03/23/24 11:39 Pulse Ox 99 03/23/24 11:39 O2 Del Method Room Air 03/23/24 11:39 BMI result Body Mass Index 41.8 Const: General: cooperative, healthy appearing and no acute distress Orientation/consciousness: patient oriented x3 HEENT: Head: Yes normal to inspection, Yes normocephalic and Yes atraumatic Eyes: Conjunctivae: conjunctivae normal Neck: Neck: Yes normal visual inspection and Yes trachea midline Chest: Chest palpation & inspection: normal inspection of the chest Resp: Effort & Inspection: normal respiratory effort Cardio: Rate: regular rate GI: Inspection: Yes normal to inspection Neuro: General: patient oriented x3 Psych: Appearance: grossly normal Results Labs 03/23/24 06:02 03/23/24 06:02 Labs: Abnormal lab results 03/21/24 03/22/24 03/22/24 Range/Units 22:30 11:33 11:50 WBC (4.8-10.8) X10*3/uL RBC (4.20-5.50) X10*6/uL Hgb (12.0-16.0) g/dl Hct (37.0-47.0) % RDW (11.0-16.0) % Absolute Nucleated RBC (0.0-0.012) X10*3/uL VBG pH 7.05 L* (7.32-7.43) VBG HCO3 8 L (22-26) mmol/L Chloride 118 H (96-108) mmol/L Carbon Dioxide 9 L* (22-29) mmol/L BUN 115 H (9-16) mg/dL Creatinine 7.37 H* (0.5-1.4) mg/dL POC Glucose (60-115) mg/dL Random Glucose 120 H (60-115) mg/dL Calcium 6.8 L (8.4-10.2) mg/dL Folate 2.3 L (> or = 4.0) ng/mL Crossmatch See Detail 03/22/24 03/22/24 03/23/24 Range/Units 14:58 21:09 06:02 WBC 16.4 H 13.3 H (4.8-10.8) X10*3/uL RBC 2.83 L D 2.64 L (4.20-5.50) X10*6/uL Hgb 8.4 L D 8.0 L (12.0-16.0) g/dl Hct 26.3 L D 23.2 L (37.0-47.0) % RDW 20.0 H 19.7 H (11.0-16.0) % Absolute Nucleated RBC 0.020 H (0.0-0.012) X10*3/uL VBG pH (7.32-7.43) VBG HCO3 (22-26) mmol/L Chloride 117 H (96-108) mmol/L Carbon Dioxide 8 L* 19 L (22-29) mmol/L BUN 120 H 69 H (9-16) mg/dL Creatinine 7.21 H* 4.68 H* (0.5-1.4) mg/dL POC Glucose 116 H (60-115) mg/dL Random Glucose 118 H (60-115) mg/dL Calcium 6.8 L 6.8 L (8.4-10.2) mg/dL Folate (> or = 4.0) ng/mL Crossmatch 03/23/24 Range/Units 07:14 WBC (4.8-10.8) X10*3/uL RBC (4.20-5.50) X10*6/uL Hgb (12.0-16.0) g/dl Hct (37.0-47.0) % RDW (11.0-16.0) % Absolute Nucleated RBC (0.0-0.012) X10*3/uL VBG pH (7.32-7.43) VBG HCO3 (22-26) mmol/L Chloride (96-108) mmol/L Carbon Dioxide (22-29) mmol/L BUN (9-16) mg/dL Creatinine (0.5-1.4) mg/dL POC Glucose 150 H (60-115) mg/dL Random Glucose (60-115) mg/dL Calcium (8.4-10.2) mg/dL Folate (> or = 4.0) ng/mL Crossmatch Short CBC 03/22/24 03/23/24 Range/Units 14:58 06:02 WBC 16.4 H 13.3 H (4.8-10.8) X10*3/uL Hgb 8.4 L D 8.0 L (12.0-16.0) g/dl Hct 26.3 L D 23.2 L (37.0-47.0) % Plt Count 200 D TNP (160-400) X10*3/uL BMP 03/22/24 03/22/24 03/23/24 11:33 14:58 06:02 Sodium 140 139 142 Potassium 5.0 4.7 3.3 D Chloride 118 H 117 H 107 Carbon Dioxide 9 L* 8 L* 19 L BUN 115 H 120 H 69 H Creatinine 7.37 H* 7.21 H* 4.68 H* Calcium 6.8 L 6.8 L 6.[address] scan report/results: report reviewed and image reviewed CT scan - pelvis: report reviewed and image reviewed Additional studies: 03/22/2024 22:33:54 ADDENDUM: CLINICAL HISTORY: renal failure, r o obstruction; do AFTER dialysis CT abdomen and pelvis without contrast Comparison: CT of the abdomen and pelvis from Findings: Mild bibasilar atelectasis/pneumonitis. Mild cardiomegaly with coronary artery calcifications and small mediastinal fluid. Asymmetry of the glandular tissues nonspecific by CT. Gallbladder is absent. The adrenal glands are normal. Spleen is nonenlarged. Mild volume loss of the pancreas noted. Bilateral perinephric stranding. No hydronephrosis. Calcifications of the renal hilar favored to be vascular. New foci of the gas are concerning for left-sided emphysematous pyelonephritis. Venous gas is also considered. Index left groin lymph node measures 0.9 cm short axis. Ventral hernia contains 15 cm of transverse colon. No small bowel obstruction. The imaged appendix is within normal limits in the study with artifacts. Vascular calcifications are multifocal. Degenerative changes of the hips, SI joints, and spine open including facet arthropathy. IMPRESSION: 1. 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 2. No hydronephrosis. This document has been electronically signed by: Suman Berger MD on 03/22/2024 22:33:54 Assessment and Plan (1) Acute on chronic renal failure: Qualifiers: Acute renal failure type: unspecified Chronic kidney disease stage: stage 4 (GFR 15-29) Qualified Code(s): N17.9 - Acute kidney failure, unspecified; N18.4 - Chronic kidney disease, stage 4 (severe) Status: Acute (2) Gangrene of toe of left foot: Status: Acute (3) Pyelonephritis: Status: Acute Plan The patient is on broad spectrum IV abx, No other recommendations by urology at this time Procedures Date of Service Date of Service: 03/23/24
[2024-03-23 11:55] LABS: Glucose, Whole Blood 126 mg/dL (60-115)
--- NOTE | 2024-03-23 12:57 | P.PNIM_ITS ---
Subjective Subjective Date of Service: 03/23/24 Interval History: This history was taken in Croatian from the patient. Tolerated dialysis Minimal pain of L 5th toe No fever Does not like blood draws Review of Systems Review of Systems: Yes all other systems are reviewed and are negative Physical Exam 2 Vital Signs: Vital Signs: Last Vital Signs Temp 97.4 F 03/23/24 11:39 Pulse 84 03/23/24 11:39 Resp 18 03/23/24 11:39 BP 121/58 L 03/23/24 11:39 Pulse Ox 99 03/23/24 11:39 O2 Del Method Room Air 03/23/24 11:39 BMI result Body Mass Index 41.8 Gen: in no acute distress HEENT: sclera anicteric, moist mucus membranes Neck: supple, R IJ HD catheter Lungs: clear to auscultation bilaterally Heart: regular rate and rhythm, no murmurs Abd: soft, non-tender, non-distended Ext: no edema Skin: warm/well-perfused, L 5th toe gangrenous Neuro: alert and oriented x3, no focal findings Psych: appropriate affect Objective Data Active Medications Acetaminophen (Acetaminophen 325 Mg Tablet) 650 mg PO Q6H PRN PRN Reason: Pain, Mild 1-3,fever,headache Last Admin: 03/23/24 00:25 Dose: 650 mg Documented By: TAE Amlodipine Besylate (Amlodipine Besylate 10 Mg Tablet) 10 mg PO DAILY [facility]; Protocol Last Admin: 03/23/24 09:40 Dose: 10 mg Documented By: DARLENE Aspirin (Aspirin Enteric Coated 81 Mg Tablet.) 81 mg PO DAILY [facility] Last Admin: 03/23/24 09:40 Dose: 81 mg Documented By: DARLENE Calcium Carbonate (Calcium Carbonate 750 Mg Tab.Chew) 750 mg PO Q4H PRN PRN Reason: Heartburn Dextrose (Dextrose 50 % 25 Gm/50 Ml Syringe) 25 gm IVPUSH Q15M PRN; Protocol PRN Reason: per Hypoglycemia Standing Ord. Ferrous Sulfate (Ferrous Sulfate 324 Mg Tablet.) 324 mg PO DAILY [facility] Last Admin: 03/23/24 09:40 Dose: 324 mg Documented By: DARLENE Glucose (Glucose Gel 15 Gm Gel..Gram.) 15 gm PO Q15M PRN; Protocol PRN Reason: per Hypoglycemia Standing Ord. Hydromorphone HCl (Hydromorphone Hcl 0.5 Mg/0.5 Ml Syringe) 0.5 mg IVPUSH Q4H PRN; Protocol PRN Reason: Pain, Severe (Pain Scale 7-10) Last Admin: 03/22/24 19:40 Dose: 0.5 mg Documented By: TAE Hydroxyzine HCl (Hydroxyzine Hcl 25 Mg Tablet) 25 mg PO Q8H PRN PRN Reason: Anxiety Last Admin: 03/23/24 00:25 Dose: 25 mg Documented By: TAE Piperacillin Sod/Tazobactam (Sod 2.25 gm/ Sodium Chloride) 50 mls @ 100 mls/hr IV Q8H [facility] Last Infusion: 03/23/24 07:44 Dose: Infused Documented By: DARLENE Daptomycin 620 mg/ Sodium (Chloride) 62.4 mls @ 124.8 mls/hr IV Q48H [facility] Last Infusion: 03/22/24 13:22 Dose: Infused Documented By: RUCHI Folic Acid 1 mg/ Sodium (Chloride) 50.2 mls @ 100.4 mls/hr IV DAILY [facility] Last Infusion: 03/23/24 10:55 Dose: Infused Documented By: DARLENE Insulin Human Lispro (Insulin Lispro 100 Unit/Ml 3 Ml Vial) 0 unit SUBCUT QIDACHS [facility]; Protocol Last Admin: 03/23/24 09:40 Dose: Not Given Documented By: DARLENE Non-Admin Reason: No Insulin Coverage Levetiracetam (Levetiracetam 500 Mg Tablet) 500 mg PO BID [facility] Last Admin: 03/23/24 09:39 Dose: 500 mg Documented By: DARLENE Magnesium Hydroxide (Milk Of Magnesia 30 Ml Oral.Susp) 30 ml PO DAILY PRN PRN Reason: Constipation Melatonin (Melatonin 3 Mg Tablet) 6 mg PO BEDTIME PRN PRN Reason: Insomnia Last Admin: 03/23/24 00:25 Dose: 6 mg Documented By: TAE Ondansetron HCl (Ondansetron Hcl 4 Mg/2 Ml Vial) 4 mg IVPUSH Q8H PRN PRN Reason: Nausea and Vomiting Last Admin: 03/22/24 22:01 Dose: 4 mg Documented By: TAE Phenytoin Sodium (Phenytoin Sodium Extended 100 Mg Capsule) 100 mg PO TID [facility] Last Admin: 03/23/24 09:40 Dose: 100 mg Documented By: DARLENE Senna (Sennosides 8.6 Mg Tablet) 17.2 mg PO BEDTIME PRN PRN Reason: constipation Sodium Chloride (0.9 % Sodium Chloride Flush 3 Ml Syringe) 3 ml IVFLUSH QSHIFT [facility] Last Admin: 03/23/24 07:44 Dose: 3 ml Documented By: DARLENE Sodium Zirconium Cyclosilicate (Sodium Zirconium Cyclosilicate 10 Gm Powd.Pack) 10 gm PO MOWEFR [facility] Last Admin: 03/22/24 16:41 Dose: Not Given Documented By: MERARI Non-Admin Reason: NPO Trazodone HCl (Trazodone Hcl 100 Mg Tablet) 100 mg PO BEDTIME PRN PRN Reason: Sleep Last Admin: 03/23/24 00:26 Dose: 100 mg Documented By: TAE Valproic Acid (Valproic Acid 250 Mg Capsule) 1,000 mg PO BID [facility] Last Admin: 03/23/24 09:39 Dose: 1,000 mg Documented By: DARLENE Vitamin D (Cholecalciferol (Vitamin D3) 25 Mcg Tablet) 50 mcg PO DAILY [facility] Last Admin: 03/23/24 09:40 Dose: 50 mcg Documented By: DARLENE Labs 03/23/24 06:02 03/23/24 06:02 Labs: Laboratory Results - last 24 hr 03/21/24 03/22/24 03/22/24 22:30 13:12 14:58 MCV 92.9 D MCH 29.7 MCHC 31.9 RDW 20.0 H Plt Count 200 D MPV Not Reportable Absolute Nucleated RBC 0.000 Nucleated RBC % (auto) 0.0 PT 11.0 INR 0.9 APTT 31.1 Anion Gap 19 Estim Creat Clear Calc 7.4 Estimated GFR 6 POC Glucose 88 Random Glucose 118 H Calcium 6.8 L Hep Bs Antigen Negative Hep Bs Antibody NONREACTIVE Hep B Core Total Ab Nonreactive Crossmatch See Detail 03/22/24 03/23/24 03/23/24 21:09 06:02 07:14 MCV 87.9 D MCH 30.3 MCHC 34.5 RDW 19.7 H Plt Count TNP MPV Not Reportable Absolute Nucleated RBC 0.020 H Nucleated RBC % (auto) 0.2 PT INR APTT Anion Gap 19 Estim Creat Clear Calc 13.6 Estimated GFR 9 POC Glucose 116 H 150 H Random Glucose 105 Calcium 6.8 L Hep Bs Antigen Hep Bs Antibody Hep B Core Total Ab Crossmatch 03/23/24 11:36 MCV MCH MCHC RDW Plt Count MPV Absolute Nucleated RBC Nucleated RBC % (auto) PT INR APTT Anion Gap Estim Creat Clear Calc Estimated GFR POC Glucose 126 H Random Glucose Calcium Hep Bs Antigen Hep Bs Antibody Hep B Core Total Ab Crossmatch Microbiology Microbiology Results: Microbiology 03/21/24 22:30 Blood Culture - Preliminary Blood - Venous No growth after 24 hours. 03/21/24 21:31 Blood Culture - Preliminary Blood - Venous No growth after 24 hours. Assessment and Plan (1) Diabetic infection of left foot: Status: Acute Assessment and Plan: d2 for 68yo F with CKD5, DM2 with nephropathy, HTN, seizure disorder presenting with worsening L 5th toe gangrene admitted for osteomyelitis, found to have severe metabolic acidosis due to uremia/renal failure, severe anemia severe metabolic acidosis, resolving MICHAEL/CKD5 progressed to ESRD - temp HD catheter placed 03/22, HD 03/22 and again 03/23 and 03/25; d/c IV isotonic bicarbonate drip - convert to tunnel cath provided BCx clear diabetic gangrene/osteomyelitis - daptomycin + piperacillin-tazobactam 03/22-, follow BCx - ID + Gen Surg consulted; likely needs amputation for definitive source 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 Urology consulted; medical management with antibiotics. Send UCx. severe anemia of CKD - FOBT negative. Transfused 3 unit pRBCs with appropriate response; epo per Nephrology DM2 - ana-dose lispro HTN - amlodipine seizure disorder - levetiracetam + valproate + phenytoin VTE ppx - UFH dispo - TBD In my clinical judgment, the patient requires continued inpatient hospitalization for the following reasons: IV ABX, HD initiation, source control Total time managing care of this patient today: 45 minutes. Quality Stroke Does the patient have a stroke diagnosis?: No VTE Prior VTE?: No VTE Risk Level:: Medical - moderate - high VTE Device Contraindication: N/A - Device Ordered VTE Drug Contraindication: N/A - Med Ordered
[2024-03-23] MEDS: HYDROmorphone HCl 0.5 MG/0.5 ML SYRINGE IVPUSH (14:16)
[2024-03-23] MEDS: ondansetron HCL 4 MG/2 ML VIAL IVPUSH ×2 (15:52→21:14)
[2024-03-23 16:22] LABS: Glucose, Whole Blood 112 mg/dL (60-115)
[2024-03-23 20:58] LABS: Glucose, Whole Blood 154 mg/dL (60-115)
[2024-03-23] MEDS: Insulin Lispro 100 UNIT/ML 3 ML VIAL SUBCUT (22:06)
[2024-03-24] MEDS: Piperacillin Sodium/Tazobactam 2.25 GM in 0.9 % Sodium Chloride 50 ML IV ×3 (05:21→23:43)
[2024-03-24 07:13] VITALS: BP 174/75; PULSE 75; RESP 18; TEMP 36.2; O2SAT 97
[2024-03-24 07:14] LABS: PLT CLUMP 1
[2024-03-24 07:15] LABS: Hematocrit 23.7 % (37.0-47.0); Hemoglobin 8.1 g/dl (12.0-16.0); Mean Corpuscular HGB Conc 34.2 g/dl (31.0-35.0); Mean Corpuscular Hemoglobin 30.6 pg (27.0-33.0); Mean Corpuscular Volume 89.4 fL (80.0-98.0); Mean Platelet Volume 12.3 fL (9.4-12.3); Red Blood Count 2.65 X10*6/uL (4.20-5.50); Red Cell Distribution Width 19.6 % (11.0-16.0)
[2024-03-24 07:27] LABS: Glucose, Whole Blood 95 mg/dL (60-115)
[2024-03-24 07:47] LABS: Blood Urea Nitrogen 39 mg/dL (9-16); Calcium 7.1 mg/dL (8.4-10.2); Creatinine Clr Calc Pharmacy 18.7; Estimated Glomerular Filt Rate 13; Glucose Random 89 mg/dL (60-115)
[2024-03-24 07:56] LABS: Anion Gap 15 (12-20); Carbon Dioxide 24 mmol/L (22-29); Chloride 103 mmol/L (96-108); Potassium 3.3 mmol/L (3.3-5.1); Sodium 139 mmol/L (135-145)
[2024-03-24] MEDS: amLODIPine Besylate 10 MG TABLET PO (08:32)
[2024-03-24] MEDS: Aspirin Enteric Coated 81 MG TABLET.DR PO (08:32)
[2024-03-24] MEDS: levETIRAcetam 500 MG TABLET PO ×2 (08:32→23:43)
[2024-03-24] MEDS: Cholecalciferol (Vitamin D3) 25 MCG TABLET 50 MCG PO (08:32)
[2024-03-24] MEDS: Phenytoin Sodium Extended 100 MG CAPSULE PO ×3 (08:33→23:42)
[2024-03-24] MEDS: Acetaminophen 325 MG TABLET 650 MG PO ×2 (08:36→23:41)
[2024-03-24] MEDS: Ferrous Sulfate 324 MG TABLET.DR PO (08:36)
[2024-03-24] MEDS: Valproic Acid 250 MG CAPSULE 1000 MG PO ×2 (08:36→23:42)
[2024-03-24] MEDS: 0.9 % Sodium Chloride Flush 3 ML SYRINGE IVFLUSH ×3 (08:36→23:43)
[2024-03-24] MEDS: Folic Acid 1 MG in 0.9 % Sodium Chloride 50 ML 100.4 MG IV (09:52)
[2024-03-24] MEDS: DAPTOmycin 620 MG in 0.9 % Sodium Chloride 50 ML 124.8 MG IV (10:11)
[2024-03-24 11:22] VITALS: BP 128/60; PULSE 72; RESP 18; TEMP 37.2; O2SAT 96
[2024-03-24 11:33] LABS: Glucose, Whole Blood 148 mg/dL (60-115)
--- NOTE | 2024-03-24 12:52 | P.PNIM_ITS ---
Subjective Subjective Date of Service: 03/24/24 Interval History: This history was taken in Kyr[place] from the patient. A little confused. Tolerated HD yesterday. No GAITAN; no foot pain. No fever. Review of Systems Review of Systems: Yes all other systems are reviewed and are negative Physical Exam 2 Vital Signs: Vital Signs: Last Vital Signs Temp 98.9 F 03/24/24 11:22 Pulse 72 03/24/24 11:22 Resp 18 03/24/24 11:22 BP 128/60 03/24/24 11:22 Pulse Ox 96 03/24/24 11:22 O2 Del Method Room Air 03/24/24 11:22 BMI result Body Mass Index 41.8 Gen: in no acute distress HEENT: sclera anicteric, moist mucus membranes Neck: supple, R IJ HD catheter Lungs: clear to auscultation bilaterally Heart: regular rate and rhythm, no murmurs Abd: soft, non-tender, non-distended Ext: no edema Skin: warm/well-perfused, L 5th toe gangrenous Neuro: alert and oriented x3, no focal findings Psych: appropriate affect Objective Data Active Medications Acetaminophen (Acetaminophen 325 Mg Tablet) 650 mg PO Q6H PRN PRN Reason: Pain, Mild 1-3,fever,headache Last Admin: 03/24/24 08:36 Dose: 650 mg Documented By: DARLENE Amlodipine Besylate (Amlodipine Besylate 10 Mg Tablet) 10 mg PO DAILY [facility]; Protocol Last Admin: 03/24/24 08:32 Dose: 10 mg Documented By: DARLENE Aspirin (Aspirin Enteric Coated 81 Mg Tablet.) 81 mg PO DAILY [facility] Last Admin: 03/24/24 08:32 Dose: 81 mg Documented By: DARLENE Calcium Carbonate (Calcium Carbonate 750 Mg Tab.Chew) 750 mg PO Q4H PRN PRN Reason: Heartburn Dextrose (Dextrose 50 % 25 Gm/50 Ml Syringe) 25 gm IVPUSH Q15M PRN; Protocol PRN Reason: per Hypoglycemia Standing Ord. Ferrous Sulfate (Ferrous Sulfate 324 Mg Tablet.) 324 mg PO DAILY [facility] Last Admin: 03/24/24 08:36 Dose: 324 mg Documented By: DARLENE Glucose (Glucose Gel 15 Gm Gel..Gram.) 15 gm PO Q15M PRN; Protocol PRN Reason: per Hypoglycemia Standing Ord. Hydromorphone HCl (Hydromorphone Hcl 0.5 Mg/0.5 Ml Syringe) 0.5 mg IVPUSH Q4H PRN; Protocol PRN Reason: Pain, Severe (Pain Scale 7-10) Last Admin: 03/23/24 14:16 Dose: 0.5 mg Documented By: DARLENE Hydroxyzine HCl (Hydroxyzine Hcl 25 Mg Tablet) 25 mg PO Q8H PRN PRN Reason: Anxiety Last Admin: 03/23/24 22:06 Dose: 25 mg Documented By: MICAH Piperacillin Sod/Tazobactam (Sod 2.25 gm/ Sodium Chloride) 50 mls @ 100 mls/hr IV Q8H [facility] Last Infusion: 03/24/24 06:02 Dose: Infused Documented By: MICAH Daptomycin 620 mg/ Sodium (Chloride) 62.4 mls @ 124.8 mls/hr IV Q48H [facility] Last Infusion: 03/24/24 10:53 Dose: Infused Documented By: DARLENE Folic Acid 1 mg/ Sodium (Chloride) 50.2 mls @ 100.4 mls/hr IV DAILY [facility] Last Infusion: 03/24/24 10:53 Dose: Infused Documented By: DARLENE Insulin Human Lispro (Insulin Lispro 100 Unit/Ml 3 Ml Vial) 0 unit SUBCUT QIDACHS [facility]; Protocol Last Admin: 03/24/24 11:51 Dose: Not Given Documented By: DARLENE Non-Admin Reason: No Insulin Coverage Levetiracetam (Levetiracetam 500 Mg Tablet) 500 mg PO BID [facility] Last Admin: 03/24/24 08:32 Dose: 500 mg Documented By: DARLENE Magnesium Hydroxide (Milk Of Magnesia 30 Ml Oral.Susp) 30 ml PO DAILY PRN PRN Reason: Constipation Melatonin (Melatonin 3 Mg Tablet) 6 mg PO BEDTIME PRN PRN Reason: Insomnia Last Admin: 03/23/24 22:06 Dose: 6 mg Documented By: MICAH Ondansetron HCl (Ondansetron Hcl 4 Mg/2 Ml Vial) 4 mg IVPUSH Q6H PRN PRN Reason: Nausea and Vomiting Last Admin: 03/23/24 21:14 Dose: 4 mg Documented By: MICAH Phenytoin Sodium (Phenytoin Sodium Extended 100 Mg Capsule) 100 mg PO TID [facility] Last Admin: 03/24/24 08:33 Dose: 100 mg Documented By: DARLENE Senna (Sennosides 8.6 Mg Tablet) 17.2 mg PO BEDTIME PRN PRN Reason: constipation Sodium Chloride (0.9 % Sodium Chloride Flush 3 Ml Syringe) 3 ml IVFLUSH QSHIFT [facility] Last Admin: 03/24/24 08:36 Dose: 3 ml Documented By: DARLENE Sodium Zirconium Cyclosilicate (Sodium Zirconium Cyclosilicate 10 Gm Powd.Pack) 10 gm PO MOWEFR [facility] Last Admin: 03/22/24 16:41 Dose: Not Given Documented By: FOSTEKR Non-Admin Reason: NPO Trazodone HCl (Trazodone Hcl 100 Mg Tablet) 100 mg PO BEDTIME PRN PRN Reason: Sleep Last Admin: 03/23/24 22:06 Dose: 100 mg Documented By: MICAH Valproic Acid (Valproic Acid 250 Mg Capsule) 1,000 mg PO BID [facility] Last Admin: 03/24/24 08:36 Dose: 1,000 mg Documented By: DARLENE Vitamin D (Cholecalciferol (Vitamin D3) 25 Mcg Tablet) 50 mcg PO DAILY [facility] Last Admin: 03/24/24 08:32 Dose: 50 mcg Documented By: DARLENE Labs 03/24/24 06:24 03/24/24 06:24 Labs: Laboratory Results - last 24 hr 03/23/24 03/23/24 03/24/24 16:01 20:51 06:24 MCV 89.4 MCH 30.6 MCHC 34.2 RDW 19.6 H Plt Count TNP MPV 12.3 Absolute Nucleated RBC 0.000 Nucleated RBC % (auto) 0.0 Anion Gap 15 Estim Creat Clear Calc 18.7 Estimated GFR 13 POC Glucose 112 154 H Random Glucose 89 Calcium 7.1 L 03/24/24 03/24/24 07:16 11:25 MCV MCH MCHC RDW Plt Count MPV Absolute Nucleated RBC Nucleated RBC % (auto) Anion Gap Estim Creat Clear Calc Estimated GFR POC Glucose 95 148 H Random Glucose Calcium Microbiology Microbiology Results: Microbiology 03/21/24 22:30 Blood Culture - Preliminary Blood - Venous No growth after 48 hours. 03/21/24 21:31 Blood Culture - Preliminary Blood - Venous No growth after 48 hours. Assessment and Plan (1) Diabetic infection of left foot: Status: Acute Assessment and Plan: d3 for 68yo F with CKD5, DM2 with nephropathy, HTN, seizure disorder presenting with worsening L 5th toe gangrene admitted for osteomyelitis/toe gangrene found to have severe metabolic acidosis due to uremia/renal failure, severe anemia severe metabolic acidosis, resolved MICHAEL/CKD5 progressed to ESRD - Nephrology [RTANE] consulted; temp HD catheter placed 03/22, HD 03/22 and again 03/23 and 03/25; d/c'ed IV isotonic bicarbonate drip - convert to tunnel cath tomorrow by IR diabetic gangrene/osteomyelitis - daptomycin + piperacillin-tazobactam 03/22-, BCx negative; ID consult pending - Gen Surg consulted; needs amputation for definitive source 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 Urology consulted and recommends medical management with antibiotics. Send UCx though pt has been on ABX as above. severe anemia of CKD - FOBT negative. Transfused 3 unit pRBCs with appropriate response; epo per Nephrology DM2 - ana-dose lispro HTN - amlodipine seizure disorder - levetiracetam + valproate + phenytoin VTE ppx - UFH dispo - TBD In my clinical judgment, the patient requires continued inpatient hospitalization for the following reasons: IV ABX, HD initiation/placement, source control Total time managing care of this patient today: 45 minutes. Quality Stroke Does the patient have a stroke diagnosis?: No VTE Prior VTE?: No VTE Risk Level:: Medical - moderate - high VTE Device Contraindication: N/A - Device Ordered VTE Drug Contraindication: N/A - Med Ordered
[2024-03-24 15:19] VITALS: BP 137/62; PULSE 74; RESP 18; TEMP 36.3; O2SAT 96
[2024-03-24 15:32] LABS: Glucose, Whole Blood 176 mg/dL (60-115)
--- NOTE | 2024-03-24 17:55 | PM.PNGS ---
Subjective Subjective Date of Service: 03/24/24 Interval history: Patient is sleeping not very responsive Physical Exam Vital Signs: Vital Signs: Last Vital Signs Temp 97.3 F 03/24/24 15:19 Pulse 74 03/24/24 15:19 Resp 18 03/24/24 15:19 BP 137/62 03/24/24 15:19 Pulse Ox 96 03/24/24 15:19 O2 Del Method Room Air 03/24/24 15:19 BMI result Body Mass Index 41.8 Skin: Other: Left little toe dry gangrene now with this still phalanx being involved. Objective Data Active Medications Acetaminophen (Acetaminophen 325 Mg Tablet) 650 mg PO Q6H PRN PRN Reason: Pain, Mild 1-3,fever,headache Last Admin: 03/24/24 08:36 Dose: 650 mg Documented By: DARLENE Amlodipine Besylate (Amlodipine Besylate 10 Mg Tablet) 10 mg PO DAILY [facility]; Protocol Last Admin: 03/24/24 08:32 Dose: 10 mg Documented By: DARLENE Aspirin (Aspirin Enteric Coated 81 Mg Tablet.) 81 mg PO DAILY [facility] Last Admin: 03/24/24 08:32 Dose: 81 mg Documented By: DARLENE Calcium Carbonate (Calcium Carbonate 750 Mg Tab.Chew) 750 mg PO Q4H PRN PRN Reason: Heartburn Dextrose (Dextrose 50 % 25 Gm/50 Ml Syringe) 25 gm IVPUSH Q15M PRN; Protocol PRN Reason: per Hypoglycemia Standing Ord. Ferrous Sulfate (Ferrous Sulfate 324 Mg Tablet.) 324 mg PO DAILY [facility] Last Admin: 03/24/24 08:36 Dose: 324 mg Documented By: DARLENE Glucose (Glucose Gel 15 Gm Gel..Gram.) 15 gm PO Q15M PRN; Protocol PRN Reason: per Hypoglycemia Standing Ord. Hydromorphone HCl (Hydromorphone Hcl 0.5 Mg/0.5 Ml Syringe) 0.5 mg IVPUSH Q4H PRN; Protocol PRN Reason: Pain, Severe (Pain Scale 7-10) Last Admin: 03/23/24 14:16 Dose: 0.5 mg Documented By: DARLENE Hydroxyzine HCl (Hydroxyzine Hcl 25 Mg Tablet) 25 mg PO Q8H PRN PRN Reason: Anxiety Last Admin: 03/23/24 22:06 Dose: 25 mg Documented By: MICAH Piperacillin Sod/Tazobactam (Sod 2.25 gm/ Sodium Chloride) 50 mls @ 100 mls/hr IV Q8H [facility] Last Infusion: 03/24/24 15:26 Dose: Infused Documented By: DARLENE Daptomycin 620 mg/ Sodium (Chloride) 62.4 mls @ 124.8 mls/hr IV Q48H [facility] Last Infusion: 03/24/24 10:53 Dose: Infused Documented By: DARLENE Folic Acid 1 mg/ Sodium (Chloride) 50.2 mls @ 100.4 mls/hr IV DAILY [facility] Last Infusion: 03/24/24 10:53 Dose: Infused Documented By: DARLENE Insulin Human Lispro (Insulin Lispro 100 Unit/Ml 3 Ml Vial) 0 unit SUBCUT QIDACHS [facility]; Protocol Last Admin: 03/24/24 17:34 Dose: Not Given Documented By: DARLENE Non-Admin Reason: refused to eat Levetiracetam (Levetiracetam 500 Mg Tablet) 500 mg PO BID [facility] Last Admin: 03/24/24 08:32 Dose: 500 mg Documented By: DARLENE Magnesium Hydroxide (Milk Of Magnesia 30 Ml Oral.Susp) 30 ml PO DAILY PRN PRN Reason: Constipation Melatonin (Melatonin 3 Mg Tablet) 6 mg PO BEDTIME PRN PRN Reason: Insomnia Last Admin: 03/23/24 22:06 Dose: 6 mg Documented By: MICAH Ondansetron HCl (Ondansetron Hcl 4 Mg/2 Ml Vial) 4 mg IVPUSH Q6H PRN PRN Reason: Nausea and Vomiting Last Admin: 03/23/24 21:14 Dose: 4 mg Documented By: MICAH Phenytoin Sodium (Phenytoin Sodium Extended 100 Mg Capsule) 100 mg PO TID [facility] Last Admin: 03/24/24 14:47 Dose: 100 mg Documented By: DARLENE Senna (Sennosides 8.6 Mg Tablet) 17.2 mg PO BEDTIME PRN PRN Reason: constipation Sodium Chloride (0.9 % Sodium Chloride Flush 3 Ml Syringe) 3 ml IVFLUSH QSHIFT [facility] Last Admin: 03/24/24 14:48 Dose: 3 ml Documented By: DARLENE Sodium Zirconium Cyclosilicate (Sodium Zirconium Cyclosilicate 10 Gm Powd.Pack) 10 gm PO MOWEFR [facility] Last Admin: 03/22/24 16:41 Dose: Not Given Documented By: MERARI Non-Admin Reason: NPO Trazodone HCl (Trazodone Hcl 100 Mg Tablet) 100 mg PO BEDTIME PRN PRN Reason: Sleep Last Admin: 03/23/24 22:06 Dose: 100 mg Documented By: MICAH Valproic Acid (Valproic Acid 250 Mg Capsule) 1,000 mg PO BID [facility] Last Admin: 03/24/24 08:36 Dose: 1,000 mg Documented By: DARLENE Vitamin D (Cholecalciferol (Vitamin D3) 25 Mcg Tablet) 50 mcg PO DAILY [facility] Last Admin: 03/24/24 08:32 Dose: 50 mcg Documented By: DARLENE Labs 03/24/24 06:24 03/24/24 06:24 Labs: Laboratory Results - last 24 hr 03/23/24 03/24/24 03/24/24 20:51 06:24 07:16 MCV 89.4 MCH 30.6 MCHC 34.2 RDW 19.6 H Plt Count TNP MPV 12.3 Absolute Nucleated RBC 0.000 Nucleated RBC % (auto) 0.0 Anion Gap 15 Estim Creat Clear Calc 18.7 Estimated GFR 13 POC Glucose 154 H 95 Random Glucose 89 Calcium 7.1 L 03/24/24 03/24/24 11:25 15:21 MCV MCH MCHC RDW Plt Count MPV Absolute Nucleated RBC Nucleated RBC % (auto) Anion Gap Estim Creat Clear Calc Estimated GFR POC Glucose 148 H 176 H Random Glucose Calcium Microbiology Microbiology Results: Microbiology 03/21/24 22:30 Blood Culture - Preliminary Blood - Venous No growth after 48 hours. 03/21/24 21:31 Blood Culture - Preliminary Blood - Venous No growth after 48 hours. Procedures Date of Service Date of Service: 03/24/24 Progress Note: A&P Assessment and plan (1) Gangrene of toe of left foot: Status: Acute Assessment and Plan: 68-year-old female with left little toe distal gangrene now dry gangrene doing okay. She has been a little more stabilized medically getting dialysis. Plan to just carry out conservative care of this toe right now and then eventually can have this area amputate her self amputate. Betadine wet dressing daily for now Time Spent With Patient Time: Total time managing care of this patient today ____ minutes. Quality Stroke Does the patient have a stroke diagnosis?: No VTE Prior VTE?: No VTE Risk Level:: Medical - moderate - high VTE Device Contraindication: N/A - Device Ordered VTE Drug Contraindication: N/A - Med Ordered
[2024-03-24 20:00] VITALS: BP 177/74; PULSE 72; RESP 18; TEMP 36.4; O2SAT 100
[2024-03-24 20:37] LABS: Glucose, Whole Blood 122 mg/dL (60-115)
[2024-03-24] MEDS: Melatonin 3 MG TABLET 6 MG PO (23:42)
[2024-03-24] MEDS: traZODone HCL 100 MG TABLET PO (23:42)
[2024-03-24 23:56] VITALS: BP 136/62; PULSE 72; RESP 18; TEMP 36.3; O2SAT 98
[2024-03-25 03:41] VITALS: BP 162/68; PULSE 68; RESP 18; TEMP 36.9; O2SAT 97
[2024-03-25] MEDS: Piperacillin Sodium/Tazobactam 2.25 GM in 0.9 % Sodium Chloride 50 ML IV ×2 (06:10→13:11)
[2024-03-25 07:36] LABS: Anion Gap 16 (12-20); Blood Urea Nitrogen 49 mg/dL (9-16); Calcium 6.6 mg/dL (8.4-10.2); Carbon Dioxide 22 mmol/L (22-29); Chloride 104 mmol/L (96-108); Creatinine Clr Calc Pharmacy 13.9; Estimated Glomerular Filt Rate 10; Glucose Random 92 mg/dL (60-115); Potassium 3.4 mmol/L (3.3-5.1); Sodium 139 mmol/L (135-145)
[2024-03-25 07:36] LABS: Glucose, Whole Blood 92 mg/dL (60-115)
[2024-03-25 07:46] VITALS: BP 144/66; PULSE 75; RESP 16; O2SAT 98
--- NOTE | 2024-03-25 08:05 | P.PNGS_ITS ---
Subjective Subjective Date of Service: 03/25/24 Interval history: Describes some pain on the foot No other complaints Physical Exam 2 Vital Signs: Vital Signs: Last Vital Signs Temp 98.4 F 03/25/24 03:41 Pulse 75 03/25/24 07:46 Resp 16 03/25/24 07:46 BP 144/66 H 03/25/24 07:46 Pulse Ox 98 03/25/24 07:46 O2 Del Method Room Air 03/25/24 07:46 BMI result Body Mass Index 41.8 Const: General: comfortable and no acute distress Nutritional Appearance: o bese Resp: Effort & Inspection: normal respiratory effort Cardio: Rate: regular rate Extrem: Other: Fifth toe gangrene and the distal phalanx, with some scanty discharge Objective Data Active Medications Acetaminophen (Acetaminophen 325 Mg Tablet) 650 mg PO Q6H PRN PRN Reason: Pain, Mild 1-3,fever,headache Last Admin: 03/24/24 23:41 Dose: 650 mg Documented By: SHADE Amlodipine Besylate (Amlodipine Besylate 10 Mg Tablet) 10 mg PO DAILY [facility]; Protocol Last Admin: 03/24/24 08:32 Dose: 10 mg Documented By: DARLENE Aspirin (Aspirin Enteric Coated 81 Mg Tablet.) 81 mg PO DAILY [facility] Last Admin: 03/24/24 08:32 Dose: 81 mg Documented By: DARLENE Calcium Carbonate (Calcium Carbonate 750 Mg Tab.Chew) 750 mg PO Q4H PRN PRN Reason: Heartburn Dextrose (Dextrose 50 % 25 Gm/50 Ml Syringe) 25 gm IVPUSH Q15M PRN; Protocol PRN Reason: per Hypoglycemia Standing Ord. Ferrous Sulfate (Ferrous Sulfate 324 Mg Tablet.) 324 mg PO DAILY [facility] Last Admin: 03/24/24 08:36 Dose: 324 mg Documented By: DARLENE Glucose (Glucose Gel 15 Gm Gel..Gram.) 15 gm PO Q15M PRN; Protocol PRN Reason: per Hypoglycemia Standing Ord. Hydromorphone HCl (Hydromorphone Hcl 0.5 Mg/0.5 Ml Syringe) 0.5 mg IVPUSH Q4H PRN; Protocol PRN Reason: Pain, Severe (Pain Scale 7-10) Last Admin: 03/23/24 14:16 Dose: 0.5 mg Documented By: DARLENE Hydroxyzine HCl (Hydroxyzine Hcl 25 Mg Tablet) 25 mg PO Q8H PRN PRN Reason: Anxiety Last Admin: 03/23/24 22:06 Dose: 25 mg Documented By: MICAH Piperacillin Sod/Tazobactam (Sod 2.25 gm/ Sodium Chloride) 50 mls @ 100 mls/hr IV Q8H [facility] Last Infusion: 03/25/24 08:02 Dose: Infused Documented By: SHADE Daptomycin 620 mg/ Sodium (Chloride) 62.4 mls @ 124.8 mls/hr IV Q48H [facility] Last Infusion: 03/24/24 10:53 Dose: Infused Documented By: DARLENE Folic Acid 1 mg/ Sodium (Chloride) 50.2 mls @ 100.4 mls/hr IV DAILY [facility] Last Infusion: 03/24/24 10:53 Dose: Infused Documented By: DARLENE Insulin Human Lispro (Insulin Lispro 100 Unit/Ml 3 Ml Vial) 0 unit SUBCUT QIDACHS [facility]; Protocol Last Admin: 03/24/24 23:10 Dose: Not Given Documented By: SHADE Non-Admin Reason: No Insulin Coverage Levetiracetam (Levetiracetam 500 Mg Tablet) 500 mg PO BID [facility] Last Admin: 03/24/24 23:43 Dose: 500 mg Documented By: SHADE Magnesium Hydroxide (Milk Of Magnesia 30 Ml Oral.Susp) 30 ml PO DAILY PRN PRN Reason: Constipation Melatonin (Melatonin 3 Mg Tablet) 6 mg PO BEDTIME PRN PRN Reason: Insomnia Last Admin: 03/24/24 23:42 Dose: 6 mg Documented By: SHADE Ondansetron HCl (Ondansetron Hcl 4 Mg/2 Ml Vial) 4 mg IVPUSH Q6H PRN PRN Reason: Nausea and Vomiting Last Admin: 03/23/24 21:14 Dose: 4 mg Documented By: MICAH Phenytoin Sodium (Phenytoin Sodium Extended 100 Mg Capsule) 100 mg PO TID [facility] Last Admin: 03/24/24 23:42 Dose: 100 mg Documented By: SHADE Senna (Sennosides 8.6 Mg Tablet) 17.2 mg PO BEDTIME PRN PRN Reason: constipation Sodium Chloride (0.9 % Sodium Chloride Flush 3 Ml Syringe) 3 ml IVFLUSH QSHIFT [facility] Last Admin: 03/24/24 23:43 Dose: 3 ml Documented By: SHADE Sodium Zirconium Cyclosilicate (Sodium Zirconium Cyclosilicate 10 Gm Powd.Pack) 10 gm PO MOWEFR [facility] Last Admin: 03/22/24 16:41 Dose: Not Given Documented By: MERARI Non-Admin Reason: NPO Trazodone HCl (Trazodone Hcl 100 Mg Tablet) 100 mg PO BEDTIME PRN PRN Reason: Sleep Last Admin: 03/24/24 23:42 Dose: 100 mg Documented By: SHADE Valproic Acid (Valproic Acid 250 Mg Capsule) 1,000 mg PO BID [facility] Last Admin: 03/24/24 23:42 Dose: 1,000 mg Documented By: SHADE Vitamin D (Cholecalciferol (Vitamin D3) 25 Mcg Tablet) 50 mcg PO DAILY [facility] Last Admin: 03/24/24 08:32 Dose: 50 mcg Documented By: DARLENE Labs 03/24/24 06:24 03/25/24 06:26 Labs: Laboratory Results - last 24 hr 03/24/24 03/24/24 03/24/24 11:25 15:21 20:30 Anion Gap Estim Creat Clear Calc Estimated GFR POC Glucose 148 H 176 H 122 H Random Glucose Calcium 03/25/24 03/25/24 06:26 07:28 Anion Gap 16 Estim Creat Clear Calc 13.9 Estimated GFR 10 POC Glucose 92 Random Glucose 92 Calcium 6.6 L D Procedures Date of Service Date of Service: 03/25/24 Progress Note: A&P Assessment and plan (1) Gangrene of toe of left foot: Status: Acute Assessment and Plan: Some scanty discharge We will likely benefit from toe amp of the 5th toe Currently seem septic We will discussed with patient and her family option of amputation Continue IV antibiotics Time Spent With Patient Time: Total time managing care of this patient today ____ minutes. Quality Stroke Does the patient have a stroke diagnosis?: No VTE Prior VTE?: No VTE Risk Level:: Medical - moderate - high VTE Device Contraindication: N/A - Device Ordered VTE Drug Contraindication: N/A - Med Ordered
[2024-03-25] MEDS: Cholecalciferol (Vitamin D3) 25 MCG TABLET 50 MCG PO (09:10)
[2024-03-25] MEDS: levETIRAcetam 500 MG TABLET PO ×2 (09:10→21:43)
[2024-03-25] MEDS: amLODIPine Besylate 10 MG TABLET PO (09:10)
[2024-03-25] MEDS: Ferrous Sulfate 324 MG TABLET.DR PO (09:11)
[2024-03-25] MEDS: Valproic Acid 250 MG CAPSULE 1000 MG PO ×2 (09:12→21:43)
[2024-03-25] MEDS: Folic Acid 1 MG in 0.9 % Sodium Chloride 50 ML 100 MG IV (09:13)
[2024-03-25] MEDS: 0.9 % Sodium Chloride Flush 3 ML SYRINGE IVFLUSH ×2 (09:14→15:00)
[2024-03-25] MEDS: Phenytoin Sodium Extended 100 MG CAPSULE PO ×3 (09:14→21:43)
--- NOTE | 2024-03-25 10:56 | MHC.CM.PN ---
PER MD ROUNDS, PT NOT READY TO DC, PLAN FOR CATH PLACEMENT FOR ONGOING HD. DCP REMAINS HOME WITH RESUMPTION OF MANAGER PHOTO AND FAMILY CARE DAUGHTER WILL TRANSPORT
[2024-03-25 11:06] LABS: Glucose, Whole Blood 97 mg/dL (60-115)
[2024-03-25 11:23] VITALS: BP 157/68; PULSE 67; RESP 16; TEMP 36.2; O2SAT 98
--- NOTE | 2024-03-25 13:17 | HO.PM.IMPN ---
Subjective Subjective Date of Service: 03/25/24 Interval History: Complaining of left leg pain, has decreased sensation left leg below ankle, denies fever, no chills, tolerating diet, no other acute events overnight Review of Systems All other system reviewed and negative Physical Exam Vital Signs: Vital Signs: Last Vital Signs Temp 97.2 F 03/25/24 11:23 Pulse 67 03/25/24 11:23 Resp 16 03/25/24 11:23 BP 157/68 H 03/25/24 11:23 Pulse Ox 98 03/25/24 11:23 O2 Del Method Room Air 03/25/24 11:23 BMI result Body Mass Index 41.8 Const: Other: Gen: in no acute distress HEENT: sclera anicteric, moist mucus membranes Neck: supple, R IJ HD catheter Lungs: clear to auscultation bilaterally Heart: regular rate and rhythm, no murmurs Abd: soft, non-tender, non-distended, bowel sounds audible Ext: no edema, left leg pain with no redness or swelling Skin: warm/well-perfused, L 5th toe gangrenous Neuro: alert and oriented x3, no focal findings, decreased sensations both feet Psych: appropriate affect Objective Data Active Medications Acetaminophen (Acetaminophen 325 Mg Tablet) 650 mg PO Q6H PRN PRN Reason: Pain, Mild 1-3,fever,headache Last Admin: 03/24/24 23:41 Dose: 650 mg Documented By: SHADE Amlodipine Besylate (Amlodipine Besylate 10 Mg Tablet) 10 mg PO DAILY [facility]; Protocol Last Admin: 03/25/24 09:10 Dose: 10 mg Documented By: EFRAIN Aspirin (Aspirin Enteric Coated 81 Mg Tablet.) 81 mg PO DAILY [facility] Last Admin: 03/25/24 09:12 Dose: Not Given Documented By: EFRAIN Non-Admin Reason: Hold for dialysis catheter Calcium Carbonate (Calcium Carbonate 750 Mg Tab.Chew) 750 mg PO Q4H PRN PRN Reason: Heartburn Dextrose (Dextrose 50 % 25 Gm/50 Ml Syringe) 25 gm IVPUSH Q15M PRN; Protocol PRN Reason: per Hypoglycemia Standing Ord. Ferrous Sulfate (Ferrous Sulfate 324 Mg Tablet.) 324 mg PO DAILY [facility] Last Admin: 03/25/24 09:11 Dose: 324 mg Documented By: EFRAIN Glucose (Glucose Gel 15 Gm Gel..Gram.) 15 gm PO Q15M PRN; Protocol PRN Reason: per Hypoglycemia Standing Ord. Hydromorphone HCl (Hydromorphone Hcl 0.5 Mg/0.5 Ml Syringe) 0.5 mg IVPUSH Q4H PRN; Protocol PRN Reason: Pain, Severe (Pain Scale 7-10) Last Admin: 03/23/24 14:16 Dose: 0.5 mg Documented By: DARLENE Hydroxyzine HCl (Hydroxyzine Hcl 25 Mg Tablet) 25 mg PO Q8H PRN PRN Reason: Anxiety Last Admin: 03/23/24 22:06 Dose: 25 mg Documented By: MICAH Piperacillin Sod/Tazobactam (Sod 2.25 gm/ Sodium Chloride) 50 mls @ 100 mls/hr IV Q8H [facility] Last Admin: 03/25/24 13:11 Dose: 100 mls/hr Documented By: EFRAIN Daptomycin 620 mg/ Sodium (Chloride) 62.4 mls @ 124.8 mls/hr IV Q48H [facility] Last Infusion: 03/24/24 10:53 Dose: Infused Documented By: DARLENE Folic Acid 1 mg/ Sodium (Chloride) 50.2 mls @ 100.4 mls/hr IV DAILY [facility] Last Infusion: 03/25/24 11:39 Dose: Infused Documented By: EFRAIN Insulin Human Lispro (Insulin Lispro 100 Unit/Ml 3 Ml Vial) 0 unit SUBCUT QIDACHS [facility]; Protocol Last Admin: 03/25/24 11:40 Dose: Not Given Documented By: EFRAIN Non-Admin Reason: NPO Levetiracetam (Levetiracetam 500 Mg Tablet) 500 mg PO BID [facility] Last Admin: 03/25/24 09:10 Dose: 500 mg Documented By: EFRAIN Magnesium Hydroxide (Milk Of Magnesia 30 Ml Oral.Susp) 30 ml PO DAILY PRN PRN Reason: Constipation Melatonin (Melatonin 3 Mg Tablet) 6 mg PO BEDTIME PRN PRN Reason: Insomnia Last Admin: 03/24/24 23:42 Dose: 6 mg Documented By: SHADE Ondansetron HCl (Ondansetron Hcl 4 Mg/2 Ml Vial) 4 mg IVPUSH Q6H PRN PRN Reason: Nausea and Vomiting Last Admin: 03/23/24 21:14 Dose: 4 mg Documented By: MICAH Phenytoin Sodium (Phenytoin Sodium Extended 100 Mg Capsule) 100 mg PO TID [facility] Last Admin: 03/25/24 09:14 Dose: 100 mg Documented By: EFRAIN Senna (Sennosides 8.6 Mg Tablet) 17.2 mg PO BEDTIME PRN PRN Reason: constipation Sodium Chloride (0.9 % Sodium Chloride Flush 3 Ml Syringe) 3 ml IVFLUSH QSHIFT [facility] Last Admin: 03/25/24 09:14 Dose: 3 ml Documented By: EFRAIN Sodium Zirconium Cyclosilicate (Sodium Zirconium Cyclosilicate 10 Gm Powd.Pack) 10 gm PO MOWEFR [facility] Last Admin: 03/22/24 16:41 Dose: Not Given Documented By: FOSTEKR Non-Admin Reason: NPO Trazodone HCl (Trazodone Hcl 100 Mg Tablet) 100 mg PO BEDTIME PRN PRN Reason: Sleep Last Admin: 03/24/24 23:42 Dose: 100 mg Documented By: SHADE Valproic Acid (Valproic Acid 250 Mg Capsule) 1,000 mg PO BID [facility] Last Admin: 03/25/24 09:12 Dose: 1,000 mg Documented By: EFRAIN Vitamin D (Cholecalciferol (Vitamin D3) 25 Mcg Tablet) 50 mcg PO DAILY [facility] Last Admin: 03/25/24 09:10 Dose: 50 mcg Documented By: EFRAIN Labs 03/24/24 06:24 03/25/24 06:26 Labs: Laboratory Results - last 24 hr 03/21/24 03/21/24 03/22/24 21:31 22:46 04:59 MCV 101.1 H MCH 31.8 MCHC 31.5 RDW 13.2 Plt Count TNP MPV 12.2 Immature Gran % (Auto) 3.5 H Neut % (Auto) 83.7 H Lymph % (Auto) 6.4 L [place] % (Auto) 5.0 Eos % (Auto) 1.2 Baso % (Auto) 0.2 Lymph # (Auto) 1.0 L [place] # (Auto) 0.8 Eos # (Auto) 0.2 Baso # (Auto) 0.0 Abs Immat Gran (auto) 0.56 H Absolute Neuts (auto) 13.3 H Absolute Nucleated RBC 0.000 Nucleated RBC % (auto) 0.0 ESR > 140 H Anion Gap 18 21 H Estim Creat Clear Calc 6.5 7.1 Estimated GFR 5 5 POC Glucose Random Glucose 142 H 145 H Estimat Average Glucose Hemoglobin A1c % Lactic Acid 0.8 Calcium 7.1 L D 7.1 L Magnesium 1.8 Total Bilirubin 0.1 Direct Bilirubin < 0.2 AST 21 ALT 7 Alkaline Phosphatase 134 H C-Reactive Protein 9.58 H B-Natriuretic Peptide 142 H Total Protein 6.8 Albumin 2.8 L Stool Occult Blood NEGATIVE 03/22/24 03/24/24 03/24/24 11:33 15:21 20:30 MCV MCH MCHC RDW Plt Count MPV Immature Gran % (Auto) Neut % (Auto) Lymph % (Auto) [place] % (Auto) Eos % (Auto) Baso % (Auto) Lymph # (Auto) [place] # (Auto) Eos # (Auto) Baso # (Auto) Abs Immat Gran (auto) Absolute Neuts (auto) Absolute Nucleated RBC Nucleated RBC % (auto) ESR Anion Gap Estim Creat Clear Calc Estimated GFR POC Glucose 176 H 122 H Random Glucose Estimat Average Glucose 105 Hemoglobin A1c % 5.3 Lactic Acid Calcium Magnesium Total Bilirubin Direct Bilirubin AST ALT Alkaline Phosphatase C-Reactive Protein B-Natriuretic Peptide Total Protein Albumin Stool Occult Blood 03/25/24 03/25/24 03/25/24 06:26 07:28 11:01 MCV MCH MCHC RDW Plt Count MPV Immature Gran % (Auto) Neut % (Auto) Lymph % (Auto) [place] % (Auto) Eos % (Auto) Baso % (Auto) Lymph # (Auto) [place] # (Auto) Eos # (Auto) Baso # (Auto) Abs Immat Gran (auto) Absolute Neuts (auto) Absolute Nucleated RBC Nucleated RBC % (auto) ESR Anion Gap 16 Estim Creat Clear Calc 13.9 Estimated GFR 10 POC Glucose 92 97 Random Glucose 92 Estimat Average Glucose Hemoglobin A1c % Lactic Acid Calcium 6.6 L D Magnesium Total Bilirubin Direct Bilirubin AST ALT Alkaline Phosphatase C-Reactive Protein B-Natriuretic Peptide Total Protein Albumin Stool Occult Blood Assessment and Plan (1) Pyelonephritis: Status: Acute (2) Gangrene of toe of left foot: Status: Acute (3) ESRD (end stage renal disease): Status: Acute (4) Metabolic acidosis: Status: Acute (5) Diabetic infection of left foot: Status: Acute (6) Anemia: Status: Acute Plan 68yo F with CKD5, DM2 with nephropathy, HTN, seizure disorder presenting with worsening L 5th toe gangrene admitted for osteomyelitis/toe gangrene,found to have severe metabolic acidosis due to uremia/renal failure, severe anemia severe metabolic acidosis, resolved MICHAEL/CKD5 progressed to ESRD - status post IV bicarbonate drip, temp HD catheter placed 03/22, HD 03/22 and again 03/23 and 03/25 - scheduled for tunneled catheter by IR today diabetic gangrene/osteomyelitis - continue IV daptomycin + piperacillin-tazobactam 03/22-, BCx negative; ID consult pending - Gen Surg consulted they recommend amputation and they will discuss with patient and her family regarding amputation. 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 Urology consulted and recommends medical management with antibiotics, urine culture on collected, blood cultures negative continue antibiotics as above. severe anemia of CKD - FOBT negative. Transfused 3 unit pRBCs with appropriate response; epo per Nephrology DM2 - ana-dose lispro HTN - amlodipine seizure disorder -no seizure-like activity noted, continue levetiracetam + valproate + phenytoin VTE ppx - compression boots dispo - TBD In my clinical judgment, the patient requires continued inpatient hospitalization for the following reasons: IV ABX, HD initiation/placement, source control Quality Stroke Does the patient have a stroke diagnosis?: No VTE Prior VTE?: No VTE Risk Level:: Medical - moderate - high VTE Device Contraindication: N/A - Device Ordered VTE Drug Contraindication: N/A - Med Ordered
[2024-03-25] MEDS: Sodium Zirconium Cyclosilicate 10 GM POWD.PACK PO (14:59)
[2024-03-25] MEDS: HYDROmorphone HCl 0.5 MG/0.5 ML SYRINGE IVPUSH (15:52)
[2024-03-25] MEDS: hydrOXYzine HCL 25 MG TABLET PO ×2 (15:52→21:44)
[2024-03-25 16:00] VITALS: BP 124/58; PULSE 81; RESP 18; TEMP 36.3; O2SAT 96
--- NOTE | 2024-03-25 16:03 | P.PNNP_ITS ---
Subjective Subjective Date of Service: 03/25/24 Principal diagnosis: Uremia and acidosis Interval history: Seen and examiend, events noted Temp IJ cath to be exchange for Pcath 03/26/14 Physical Exam 2 Vital Signs: Vital Signs: Last Vital Signs Temp 97.4 F 03/25/24 16:00 Pulse 81 03/25/24 16:00 Resp 18 03/25/24 16:00 BP 124/58 L 03/25/24 16:00 Pulse Ox 96 03/25/24 16:00 O2 Del Method Room Air 03/25/24 16:00 BMI result Body Mass Index 41.8 Const: Other: Appearance: Alert. Oriented X3. No acute distress. Eyes: Pupils equal, round and reactive to light. ENT: Pharynx normal. Neck: Normal inspection. Neck supple. No lymph nodes noted. No crepitus CVS: Normal heart rate and rhythm. Pulses normal. Normal S1 and S2 Respiratory: No respiratory distress. Breath sounds normal. No Wheezing. No rales Abdomen: Soft and nontender. No rigidity. No distention. Patient has an abdominal hernia, easily reducible Skin: Skin warm and dry. Pale skin color. Normal skin turgor. See extremity below Extremities: No lower extremity edema. No Lacerations. No Rash. Patient's 5th toe on the left foot is necrotic. There is an ulcer in between the 4th and the 5th digits, foul smelling pus present. Neuro: Oriented X 3. No motor deficit. No sensory deficit. Moving all extremities. No slurred speech. CN 2 through 12 grossly intact Psych: calm, cooperative, normal affect Objective Data Labs 03/24/24 06:24 03/25/24 06:26 Labs: Laboratory Results - last 24 hr 03/21/24 03/21/24 03/22/24 21:31 22:46 04:59 WBC 15.9 H 16.7 H RBC 1.79 L D 2.08 L Hgb 5.7 L* D 6.7 L* Hct 18.1 L* D 21.2 L MCV 101.1 H 101.9 H MCH 31.8 32.2 MCHC 31.5 31.6 RDW 13.2 13.4 Plt Count TNP 107 L D MPV 12.2 11.7 Immature Gran % (Auto) 3.5 H 3.8 H Neut % (Auto) 83.7 H 79.7 H Lymph % (Auto) 6.4 L 7.0 L [place] % (Auto) 5.0 7.8 Eos % (Auto) 1.2 1.5 Baso % (Auto) 0.2 0.2 Lymph # (Auto) 1.0 L 1.2 [place] # (Auto) 0.8 1.3 H Eos # (Auto) 0.2 0.3 Baso # (Auto) 0.0 0.0 Abs Immat Gran (auto) 0.56 H 0.64 H Absolute Neuts (auto) 13.3 H 13.3 H Absolute Nucleated RBC 0.000 0.000 Nucleated RBC % (auto) 0.0 0.0 ESR > 140 H PT INR APTT VBG pH VBG pCO2 VBG pO2 VBG HCO3 VBG O2 Saturation VBG Base Excess Sodium 136 138 Potassium 5.1 D 4.5 Chloride 116 H 114 H Carbon Dioxide 7 L* D 8 L* Anion Gap 18 21 H BUN 120 H 120 H Creatinine 8.20 H* 7.52 H* Estim Creat Clear Calc 6.5 7.1 Estimated GFR 5 5 POC Glucose Random Glucose 142 H 145 H Estimat Average Glucose Hemoglobin A1c % Lactic Acid 0.8 Calcium 7.1 L D 7.1 L Magnesium 1.8 Total Bilirubin 0.1 Direct Bilirubin < 0.2 AST 21 ALT 7 Alkaline Phosphatase 134 H C-Reactive Protein 9.58 H B-Natriuretic Peptide 142 H Total Protein 6.8 Albumin 2.8 L Vitamin B12 Folate Stool Occult Blood NEGATIVE Hep Bs Antigen Hep Bs Antibody Hep B Core Total Ab 03/22/24 03/22/24 03/22/24 07:42 11:33 11:50 WBC RBC Hgb Hct MCV MCH MCHC RDW Plt Count MPV Immature Gran % (Auto) Neut % (Auto) Lymph % (Auto) [place] % (Auto) Eos % (Auto) Baso % (Auto) Lymph # (Auto) [place] # (Auto) Eos # (Auto) Baso # (Auto) Abs Immat Gran (auto) Absolute Neuts (auto) Absolute Nucleated RBC Nucleated RBC % (auto) ESR PT INR APTT VBG pH 7.05 L* VBG pCO2 27 VBG pO2 70 VBG HCO3 8 L VBG O2 Saturation 91.0 VBG Base Excess -20.8 Sodium 140 Potassium 5.0 Chloride 118 H Carbon Dioxide 9 L* Anion Gap 18 BUN 115 H Creatinine 7.37 H* Estim Creat Clear Calc 7.2 Estimated GFR 6 POC Glucose 136 H Random Glucose 120 H Estimat Average Glucose 105 Hemoglobin A1c % 5.3 Lactic Acid Calcium 6.8 L Magnesium Total Bilirubin Direct Bilirubin AST ALT Alkaline Phosphatase C-Reactive Protein B-Natriuretic Peptide Total Protein Albumin Vitamin B12 628 Folate 2.3 L Stool Occult Blood Hep Bs Antigen Hep Bs Antibody Hep B Core Total Ab 03/22/24 03/22/24 03/22/24 13:12 14:58 21:09 WBC 16.4 H RBC 2.83 L D Hgb 8.4 L D Hct 26.3 L D MCV 92.9 D MCH 29.7 MCHC 31.9 RDW 20.0 H Plt Count 200 D MPV Immature Gran % (Auto) Neut % (Auto) Lymph % (Auto) [place] % (Auto) Eos % (Auto) Baso % (Auto) Lymph # (Auto) [place] # (Auto) Eos # (Auto) Baso # (Auto) Abs Immat Gran (auto) Absolute Neuts (auto) Absolute Nucleated RBC 0.000 Nucleated RBC % (auto) 0.0 ESR PT 11.0 INR 0.9 APTT 31.1 VBG pH VBG pCO2 VBG pO2 VBG HCO3 VBG O2 Saturation VBG Base Excess Sodium 139 Potassium 4.7 Chloride 117 H Carbon Dioxide 8 L* Anion Gap 19 BUN 120 H Creatinine 7.21 H* Estim Creat Clear Calc 7.4 Estimated GFR 6 POC Glucose 88 116 H Random Glucose 118 H Estimat Average Glucose Hemoglobin A1c % Lactic Acid Calcium 6.8 L Magnesium Total Bilirubin Direct Bilirubin AST ALT Alkaline Phosphatase C-Reactive Protein B-Natriuretic Peptide Total Protein Albumin Vitamin B12 Folate Stool Occult Blood Hep Bs Antigen Negative Hep Bs Antibody NONREACTIVE Hep B Core Total Ab Nonreactive 03/24/24 03/25/24 03/25/24 20:30 06:26 07:28 WBC RBC Hgb Hct MCV MCH MCHC RDW Plt Count MPV Immature Gran % (Auto) Neut % (Auto) Lymph % (Auto) [place] % (Auto) Eos % (Auto) Baso % (Auto) Lymph # (Auto) [place] # (Auto) Eos # (Auto) Baso # (Auto) Abs Immat Gran (auto) Absolute Neuts (auto) Absolute Nucleated RBC Nucleated RBC % (auto) ESR PT INR APTT VBG pH VBG pCO2 VBG pO2 VBG HCO3 VBG O2 Saturation VBG Base Excess Sodium 139 Potassium 3.4 Chloride 104 Carbon Dioxide 22 Anion Gap 16 BUN 49 H Creatinine 4.60 H* Estim Creat Clear Calc 13.9 Estimated GFR 10 POC Glucose 122 H 92 Random Glucose 92 Estimat Average Glucose Hemoglobin A1c % Lactic Acid Calcium 6.6 L D Magnesium Total Bilirubin Direct Bilirubin AST ALT Alkaline Phosphatase C-Reactive Protein B-Natriuretic Peptide Total Protein Albumin Vitamin B12 Folate Stool Occult Blood Hep Bs Antigen Hep Bs Antibody Hep B Core Total Ab 03/25/24 11:01 WBC RBC Hgb Hct MCV MCH MCHC RDW Plt Count MPV Immature Gran % (Auto) Neut % (Auto) Lymph % (Auto) [place] % (Auto) Eos % (Auto) Baso % (Auto) Lymph # (Auto) [place] # (Auto) Eos # (Auto) Baso # (Auto) Abs Immat Gran (auto) Absolute Neuts (auto) Absolute Nucleated RBC Nucleated RBC % (auto) ESR PT INR APTT VBG pH VBG pCO2 VBG pO2 VBG HCO3 VBG O2 Saturation VBG Base Excess Sodium Potassium Chloride Carbon Dioxide Anion Gap BUN Creatinine Estim Creat Clear Calc Estimated GFR POC Glucose 97 Random Glucose Estimat Average Glucose Hemoglobin A1c % Lactic Acid Calcium Magnesium Total Bilirubin Direct Bilirubin AST ALT Alkaline Phosphatase C-Reactive Protein B-Natriuretic Peptide Total Protein Albumin Vitamin B12 Folate Stool Occult Blood Hep Bs Antigen Hep Bs Antibody Hep B Core Total Ab Microbiology Microbiology Results: Microbiology 03/21/24 22:30 Blood - Venous Blood Culture - Preliminary No growth after 48 hours. 03/21/24 21:31 Blood - Venous Blood Culture - Preliminary No growth after 48 hours. Procedures Date of Service Date of Service: 03/25/24 Assessment & Plan Assessment and plan (1) Metabolic acidosis: Status: Acute (2) ESRD (end stage renal disease): Status: Acute (3) Diabetic infection of left foot: Status: Acute (4) Anemia: Status: Acute (5) Kidney stone: Status: Acute Plan 1. MICHAEL on adv CKD and now ESRD 2. Hemoaccess: temp RIJ nweds to convereted to tunnel catheter 3. Diabetic foot infection 4. Ques Emphsematous pyelo 5. Anemia: s/p xfusion REC: exchange temp HDcath to Pcath; HD yanni vs and I will arrange for outpt HD spot Will follow w team Time Spent With Patient Time: Total time managing care of this patient today ____ minutes. Progress Note: Quality Stroke Does the patient have a stroke diagnosis?: No
[2024-03-25 16:26] LABS: Glucose, Whole Blood 97 mg/dL (60-115)
[2024-03-25 19:42] VITALS: BP 149/63; PULSE 82; RESP 18; TEMP 36.6; O2SAT 98
[2024-03-25 21:15] LABS: Glucose, Whole Blood 214 mg/dL (60-115)
[2024-03-25] MEDS: Acetaminophen 325 MG TABLET 650 MG PO (21:43)
[2024-03-25] MEDS: Melatonin 3 MG TABLET 6 MG PO (21:43)
[2024-03-25] MEDS: traZODone HCL 100 MG TABLET PO (21:44)
[2024-03-25] MEDS: Nystatin Powder 15 GM BOTTLE 1 APPL TOPICAL (21:44)
[2024-03-25] MEDS: Insulin Lispro 100 UNIT/ML 3 ML VIAL SUBCUT (21:46)
[2024-03-26] VITALS (8 sets, daily range): BP systolic 127–158; BP diastolic 60–69; PULSE 68–93; RESP 16–22; TEMP 36.2–36.9; O2SAT 94–99
[2024-03-26] MEDS: HYDROmorphone HCl 0.5 MG/0.5 ML SYRINGE IVPUSH ×4 (01:41→23:10)
[2024-03-26] MEDS: Piperacillin Sodium/Tazobactam 2.25 GM in 0.9 % Sodium Chloride 50 ML IV ×3 (01:42→16:35)
[2024-03-26] MEDS: Acetaminophen 325 MG TABLET 650 MG PO (03:59)
[2024-03-26 07:36] LABS: Glucose, Whole Blood 109 mg/dL (60-115)
[2024-03-26] MEDS: Ferrous Sulfate 324 MG TABLET.DR PO (09:00)
[2024-03-26] MEDS: levETIRAcetam 500 MG TABLET PO ×2 (09:00→21:05)
[2024-03-26] MEDS: Phenytoin Sodium Extended 100 MG CAPSULE PO ×3 (09:00→21:05)
[2024-03-26] MEDS: amLODIPine Besylate 10 MG TABLET PO (09:00)
[2024-03-26] MEDS: Valproic Acid 250 MG CAPSULE 1000 MG PO ×2 (09:01→21:06)
[2024-03-26] MEDS: Cholecalciferol (Vitamin D3) 25 MCG TABLET 50 MCG PO (09:01)
[2024-03-26] MEDS: 0.9 % Sodium Chloride Flush 3 ML SYRINGE IVFLUSH ×3 (09:08→21:07)
[2024-03-26] MEDS: Nystatin Powder 15 GM BOTTLE 1 APPL TOPICAL ×2 (09:09→21:07)
[2024-03-26] MEDS: hydrOXYzine HCL 25 MG TABLET PO ×2 (11:14→23:10)
[2024-03-26 11:32] LABS: Glucose, Whole Blood 100 mg/dL (60-115)
--- NOTE | 2024-03-26 12:01 | P.PNNP_ITS ---
Subjective Subjective Date of Service: 03/27/24 Principal diagnosis: Uremia and acidosis Interval history: Seen and examiend, events noted Temp IJ cath to be exchange for Pcath in Am Physical Exam 2 Vital Signs: Vital Signs: Last Vital Signs Temp 98.2 F 03/26/24 11:44 Pulse 93 03/26/24 11:44 Resp 18 03/26/24 11:44 BP 127/62 03/26/24 11:44 Pulse Ox 97 03/26/24 11:44 O2 Del Method Room Air 03/26/24 11:44 BMI result Body Mass Index 41.8 Objective Data Labs 03/24/24 06:24 03/25/24 06:26 Labs: Laboratory Results - last 24 hr 03/21/24 03/21/24 03/22/24 21:31 22:46 04:59 WBC 15.9 H 16.7 H RBC 1.79 L D 2.08 L Hgb 5.7 L* D 6.7 L* Hct 18.1 L* D 21.2 L MCV 101.1 H 101.9 H MCH 31.8 32.2 MCHC 31.5 31.6 RDW 13.2 13.4 Plt Count TNP 107 L D MPV 12.2 11.7 Immature Gran % (Auto) 3.5 H 3.8 H Neut % (Auto) 83.7 H 79.7 H Lymph % (Auto) 6.4 L 7.0 L [place] % (Auto) 5.0 7.8 Eos % (Auto) 1.2 1.5 Baso % (Auto) 0.2 0.2 Lymph # (Auto) 1.0 L 1.2 [place] # (Auto) 0.8 1.3 H Eos # (Auto) 0.2 0.3 Baso # (Auto) 0.0 0.0 Abs Immat Gran (auto) 0.56 H 0.64 H Absolute Neuts (auto) 13.3 H 13.3 H Absolute Nucleated RBC 0.000 0.000 Nucleated RBC % (auto) 0.0 0.0 ESR > 140 H PT INR APTT VBG pH VBG pCO2 VBG pO2 VBG HCO3 VBG O2 Saturation VBG Base Excess Sodium 138 Potassium 4.5 Chloride 114 H Carbon Dioxide 8 L* Anion Gap 21 H BUN 120 H Creatinine 7.52 H* Estim Creat Clear Calc 7.1 Estimated GFR 5 POC Glucose Random Glucose 145 H Estimat Average Glucose Hemoglobin A1c % Calcium 7.1 L Magnesium 1.8 B-Natriuretic Peptide 142 H Vitamin B12 Folate Stool Occult Blood NEGATIVE Hep Bs Antigen Hep Bs Antibody Hep B Core Total Ab 03/22/24 03/22/24 03/22/24 07:42 11:33 11:50 WBC RBC Hgb Hct MCV MCH MCHC RDW Plt Count MPV Immature Gran % (Auto) Neut % (Auto) Lymph % (Auto) [place] % (Auto) Eos % (Auto) Baso % (Auto) Lymph # (Auto) [place] # (Auto) Eos # (Auto) Baso # (Auto) Abs Immat Gran (auto) Absolute Neuts (auto) Absolute Nucleated RBC Nucleated RBC % (auto) ESR PT INR APTT VBG pH 7.05 L* VBG pCO2 27 VBG pO2 70 VBG HCO3 8 L VBG O2 Saturation 91.0 VBG Base Excess -20.8 Sodium 140 Potassium 5.0 Chloride 118 H Carbon Dioxide 9 L* Anion Gap 18 BUN 115 H Creatinine 7.37 H* Estim Creat Clear Calc 7.2 Estimated GFR 6 POC Glucose 136 H Random Glucose 120 H Estimat Average Glucose 105 Hemoglobin A1c % 5.3 Calcium 6.8 L Magnesium B-Natriuretic Peptide Vitamin B12 628 Folate 2.3 L Stool Occult Blood Hep Bs Antigen Hep Bs Antibody Hep B Core Total Ab 03/22/24 03/22/24 03/22/24 13:12 14:58 21:09 WBC 16.4 H RBC 2.83 L D Hgb 8.4 L D Hct 26.3 L D MCV 92.9 D MCH 29.7 MCHC 31.9 RDW 20.0 H Plt Count 200 D MPV Immature Gran % (Auto) Neut % (Auto) Lymph % (Auto) [place] % (Auto) Eos % (Auto) Baso % (Auto) Lymph # (Auto) [place] # (Auto) Eos # (Auto) Baso # (Auto) Abs Immat Gran (auto) Absolute Neuts (auto) Absolute Nucleated RBC 0.000 Nucleated RBC % (auto) 0.0 ESR PT 11.0 INR 0.9 APTT 31.1 VBG pH VBG pCO2 VBG pO2 VBG HCO3 VBG O2 Saturation VBG Base Excess Sodium 139 Potassium 4.7 Chloride 117 H Carbon Dioxide 8 L* Anion Gap 19 BUN 120 H Creatinine 7.21 H* Estim Creat Clear Calc 7.4 Estimated GFR 6 POC Glucose 88 116 H Random Glucose 118 H Estimat Average Glucose Hemoglobin A1c % Calcium 6.8 L Magnesium B-Natriuretic Peptide Vitamin B12 Folate Stool Occult Blood Hep Bs Antigen Negative Hep Bs Antibody NONREACTIVE Hep B Core Total Ab Nonreactive 03/25/24 03/25/24 03/26/24 16:22 21:11 07:33 WBC RBC Hgb Hct MCV MCH MCHC RDW Plt Count MPV Immature Gran % (Auto) Neut % (Auto) Lymph % (Auto) [place] % (Auto) Eos % (Auto) Baso % (Auto) Lymph # (Auto) [place] # (Auto) Eos # (Auto) Baso # (Auto) Abs Immat Gran (auto) Absolute Neuts (auto) Absolute Nucleated RBC Nucleated RBC % (auto) ESR PT INR APTT VBG pH VBG pCO2 VBG pO2 VBG HCO3 VBG O2 Saturation VBG Base Excess Sodium Potassium Chloride Carbon Dioxide Anion Gap BUN Creatinine Estim Creat Clear Calc Estimated GFR POC Glucose 97 214 H 109 Random Glucose Estimat Average Glucose Hemoglobin A1c % Calcium Magnesium B-Natriuretic Peptide Vitamin B12 Folate Stool Occult Blood Hep Bs Antigen Hep Bs Antibody Hep B Core Total Ab 03/26/24 11:23 WBC RBC Hgb Hct MCV MCH MCHC RDW Plt Count MPV Immature Gran % (Auto) Neut % (Auto) Lymph % (Auto) [place] % (Auto) Eos % (Auto) Baso % (Auto) Lymph # (Auto) [place] # (Auto) Eos # (Auto) Baso # (Auto) Abs Immat Gran (auto) Absolute Neuts (auto) Absolute Nucleated RBC Nucleated RBC % (auto) ESR PT INR APTT VBG pH VBG pCO2 VBG pO2 VBG HCO3 VBG O2 Saturation VBG Base Excess Sodium Potassium Chloride Carbon Dioxide Anion Gap BUN Creatinine Estim Creat Clear Calc Estimated GFR POC Glucose 100 Random Glucose Estimat Average Glucose Hemoglobin A1c % Calcium Magnesium B-Natriuretic Peptide Vitamin B12 Folate Stool Occult Blood Hep Bs Antigen Hep Bs Antibody Hep B Core Total Ab Microbiology Microbiology Results: Microbiology 03/21/24 22:30 Blood - Venous Blood Culture - Preliminary No growth after 48 hours. 03/21/24 21:31 Blood - Venous Blood Culture - Preliminary No growth after 48 hours. Procedures Date of Service Date of Service: 03/27/24 Assessment & Plan Assessment and plan (1) ESRD (end stage renal disease): Status: Acute (2) Metabolic acidosis: Status: Acute (3) Diabetic infection of left foot: Status: Acute (4) Anemia: Status: Acute (5) Kidney stone: Status: Acute Plan 1. MICHAEL on adv CKD and now ESRD 2. Hemoaccess: temp RIJ hayden convereted to tunnel catheter 3. Diabetic foot infection 4. Ques Emphsematous pyelo 5. Anemia: s/p xfusion REC: exchange temp HDcath to Pcath; HD in AM I will arrange for outpt HD spot Will follow w team Time Spent With Patient Time: Total time managing care of this patient today ____ minutes. Progress Note: Quality Stroke Does the patient have a stroke diagnosis?: No
[2024-03-26] MEDS: DAPTOmycin 620 MG in 0.9 % Sodium Chloride 50 ML 124.8 MG IV (12:44)
--- NOTE | 2024-03-26 12:56 | HO.PM.IMPN ---
Subjective Subjective Date of Service: 03/26/24 Interval History: Being followed for MICHAEL on advanced chronic kidney disease Complaining of right lateral hip /posterior thigh pain Review of Systems All other system reviewed and are negative Physical Exam Vital Signs: Vital Signs: Last Vital Signs Temp 98.2 F 03/26/24 11:44 Pulse 93 03/26/24 11:44 Resp 18 03/26/24 11:44 BP 127/62 03/26/24 11:44 Pulse Ox 97 03/26/24 11:44 O2 Del Method Room Air 03/26/24 11:44 BMI result Body Mass Index 41.8 Const: Other: Gen: in no acute distress HEENT: sclera anicteric, moist mucus membranes Neck: supple, R IJ HD catheter Lungs: clear to auscultation bilaterally Heart: regular rate and rhythm, no murmurs Abd: soft, non-tender, non-distended, bowel sounds audible Ext: no edema, left leg pain with no redness or swelling Skin: warm/well-perfused, L 5th toe gangrenous Right posterior thigh/hip abrasion Neuro: alert and oriented x3, no focal findings, decreased sensations both feet Psych: appropriate affect Objective Data Active Medications Acetaminophen (Acetaminophen 325 Mg Tablet) 650 mg PO Q6H PRN PRN Reason: Pain, Mild 1-3,fever,headache Last Admin: 03/26/24 03:59 Dose: 650 mg Documented By: SHADE Amlodipine Besylate (Amlodipine Besylate 10 Mg Tablet) 10 mg PO DAILY [facility]; Protocol Last Admin: 03/26/24 09:00 Dose: 10 mg Documented By: EFRAIN Aspirin (Aspirin Enteric Coated 81 Mg Tablet.) 81 mg PO DAILY [facility] Last Admin: 03/26/24 09:06 Dose: Not Given Documented By: EFRAIN Non-Admin Reason: GETTING DIALYSIS CATH Calcium Carbonate (Calcium Carbonate 750 Mg Tab.Chew) 750 mg PO Q4H PRN PRN Reason: Heartburn Dextrose (Dextrose 50 % 25 Gm/50 Ml Syringe) 25 gm IVPUSH Q15M PRN; Protocol PRN Reason: per Hypoglycemia Standing Ord. Ferrous Sulfate (Ferrous Sulfate 324 Mg Tablet.) 324 mg PO DAILY [facility] Last Admin: 03/26/24 09:00 Dose: 324 mg Documented By: EFRAIN Glucose (Glucose Gel 15 Gm Gel..Gram.) 15 gm PO Q15M PRN; Protocol PRN Reason: per Hypoglycemia Standing Ord. Hydromorphone HCl (Hydromorphone Hcl 0.5 Mg/0.5 Ml Syringe) 0.5 mg IVPUSH Q4H PRN; Protocol PRN Reason: Pain, Severe (Pain Scale 7-10) Last Admin: 03/26/24 11:03 Dose: 0.5 mg Documented By: EFRAIN Hydroxyzine HCl (Hydroxyzine Hcl 25 Mg Tablet) 25 mg PO Q8H PRN PRN Reason: Anxiety Last Admin: 03/26/24 11:14 Dose: 25 mg Documented By: EFRAIN Daptomycin 620 mg/ Sodium (Chloride) 62.4 mls @ 124.8 mls/hr IV Q48H [facility] Last Admin: 03/26/24 12:44 Dose: 124.8 mls/hr Documented By: EFRAIN Folic Acid 1 mg/ Sodium (Chloride) 50.2 mls @ 100.4 mls/hr IV DAILY [facility] Last Admin: 03/26/24 09:09 Dose: Not Given Documented By: EFRAIN Non-Admin Reason: WWILL BE CHANGED TO PO Piperacillin Sod/Tazobactam (Sod 2.25 gm/ Sodium Chloride) 50 mls @ 100 mls/hr IV Q8H [facility] Last Infusion: 03/26/24 10:21 Dose: Infused Documented By: EFRAIN Insulin Human Lispro (Insulin Lispro 100 Unit/Ml 3 Ml Vial) 0 unit SUBCUT QIDACHS [facility]; Protocol Last Admin: 03/26/24 11:40 Dose: Not Given Documented By: EFRAIN Non-Admin Reason: No Insulin Coverage Levetiracetam (Levetiracetam 500 Mg Tablet) 500 mg PO BID [facility] Last Admin: 03/26/24 09:00 Dose: 500 mg Documented By: EFRAIN Magnesium Hydroxide (Milk Of Magnesia 30 Ml Oral.Susp) 30 ml PO DAILY PRN PRN Reason: Constipation Melatonin (Melatonin 3 Mg Tablet) 6 mg PO BEDTIME PRN PRN Reason: Insomnia Last Admin: 03/25/24 21:43 Dose: 6 mg Documented By: SHADE Nystatin (Nystatin Powder 15 Gm Bottle) 1 appl TOPICAL BID [facility]; Protocol Last Admin: 03/26/24 09:09 Dose: 1 appl Documented By: EFRAIN Ondansetron HCl (Ondansetron Hcl 4 Mg/2 Ml Vial) 4 mg IVPUSH Q6H PRN PRN Reason: Nausea and Vomiting Last Admin: 03/23/24 21:14 Dose: 4 mg Documented By: MICAH Phenytoin Sodium (Phenytoin Sodium Extended 100 Mg Capsule) 100 mg PO TID [facility] Last Admin: 03/26/24 09:00 Dose: 100 mg Documented By: EFRAIN Senna (Sennosides 8.6 Mg Tablet) 17.2 mg PO BEDTIME PRN PRN Reason: constipation Sodium Chloride (0.9 % Sodium Chloride Flush 3 Ml Syringe) 3 ml IVFLUSH QSHIFT [facility] Last Admin: 03/26/24 09:08 Dose: 3 ml Documented By: EFRAIN Sodium Zirconium Cyclosilicate (Sodium Zirconium Cyclosilicate 10 Gm Powd.Pack) 10 gm PO MOWEFR [facility] Last Admin: 03/25/24 14:59 Dose: 10 gm Documented By: EFRAIN Trazodone HCl (Trazodone Hcl 100 Mg Tablet) 100 mg PO BEDTIME PRN PRN Reason: Sleep Last Admin: 03/25/24 21:44 Dose: 100 mg Documented By: SHADE Valproic Acid (Valproic Acid 250 Mg Capsule) 1,000 mg PO BID [facility] Last Admin: 03/26/24 09:01 Dose: 1,000 mg Documented By: EFRAIN Vitamin D (Cholecalciferol (Vitamin D3) 25 Mcg Tablet) 50 mcg PO DAILY [facility] Last Admin: 03/26/24 09:01 Dose: 50 mcg Documented By: EFRAIN Labs 03/24/24 06:24 03/25/24 06:26 Labs: Laboratory Results - last 24 hr 03/21/24 03/22/24 03/22/24 22:46 04:59 07:42 MCV 101.9 H MCH 32.2 MCHC 31.6 RDW 13.4 Plt Count 107 L D MPV 11.7 Immature Gran % (Auto) 3.8 H Neut % (Auto) 79.7 H Lymph % (Auto) 7.0 L [place] % (Auto) 7.8 Eos % (Auto) 1.5 Baso % (Auto) 0.2 Lymph # (Auto) 1.2 [place] # (Auto) 1.3 H Eos # (Auto) 0.3 Baso # (Auto) 0.0 Abs Immat Gran (auto) 0.64 H Absolute Neuts (auto) 13.3 H Absolute Nucleated RBC 0.000 Nucleated RBC % (auto) 0.0 PT INR APTT VBG pH VBG pCO2 VBG pO2 VBG HCO3 VBG O2 Saturation VBG Base Excess Anion Gap 21 H Estim Creat Clear Calc 7.1 Estimated GFR 5 POC Glucose 136 H Random Glucose 145 H Estimat Average Glucose Hemoglobin A1c % Calcium 7.1 L Magnesium 1.8 Vitamin B12 Folate Stool Occult Blood NEGATIVE Hep Bs Antigen Hep Bs Antibody Hep B Core Total Ab 03/22/24 03/22/24 03/22/24 11:33 11:50 13:12 MCV MCH MCHC RDW Plt Count MPV Immature Gran % (Auto) Neut % (Auto) Lymph % (Auto) [place] % (Auto) Eos % (Auto) Baso % (Auto) Lymph # (Auto) [place] # (Auto) Eos # (Auto) Baso # (Auto) Abs Immat Gran (auto) Absolute Neuts (auto) Absolute Nucleated RBC Nucleated RBC % (auto) PT INR APTT VBG pH 7.05 L* VBG pCO2 27 VBG pO2 70 VBG HCO3 8 L VBG O2 Saturation 91.0 VBG Base Excess -20.8 Anion Gap 18 Estim Creat Clear Calc 7.2 Estimated GFR 6 POC Glucose 88 Random Glucose 120 H Estimat Average Glucose 105 Hemoglobin A1c % 5.3 Calcium 6.8 L Magnesium Vitamin B12 628 Folate 2.3 L Stool Occult Blood Hep Bs Antigen Hep Bs Antibody Hep B Core Total Ab 03/22/24 03/22/24 03/25/24 14:58 21:09 16:22 MCV 92.9 D MCH 29.7 MCHC 31.9 RDW 20.0 H Plt Count 200 D MPV Immature Gran % (Auto) Neut % (Auto) Lymph % (Auto) [place] % (Auto) Eos % (Auto) Baso % (Auto) Lymph # (Auto) [place] # (Auto) Eos # (Auto) Baso # (Auto) Abs Immat Gran (auto) Absolute Neuts (auto) Absolute Nucleated RBC 0.000 Nucleated RBC % (auto) 0.0 PT 11.0 INR 0.9 APTT 31.1 VBG pH VBG pCO2 VBG pO2 VBG HCO3 VBG O2 Saturation VBG Base Excess Anion Gap 19 Estim Creat Clear Calc 7.4 Estimated GFR 6 POC Glucose 116 H 97 Random Glucose 118 H Estimat Average Glucose Hemoglobin A1c % Calcium 6.8 L Magnesium Vitamin B12 Folate Stool Occult Blood Hep Bs Antigen Negative Hep Bs Antibody NONREACTIVE Hep B Core Total Ab Nonreactive 03/25/24 03/26/24 03/26/24 21:11 07:33 11:23 MCV MCH MCHC RDW Plt Count MPV Immature Gran % (Auto) Neut % (Auto) Lymph % (Auto) [place] % (Auto) Eos % (Auto) Baso % (Auto) Lymph # (Auto) [place] # (Auto) Eos # (Auto) Baso # (Auto) Abs Immat Gran (auto) Absolute Neuts (auto) Absolute Nucleated RBC Nucleated RBC % (auto) PT INR APTT VBG pH VBG pCO2 VBG pO2 VBG HCO3 VBG O2 Saturation VBG Base Excess Anion Gap Estim Creat Clear Calc Estimated GFR POC Glucose 214 H 109 100 Random Glucose Estimat Average Glucose Hemoglobin A1c % Calcium Magnesium Vitamin B12 Folate Stool Occult Blood Hep Bs Antigen Hep Bs Antibody Hep B Core Total Ab Assessment and Plan (1) Pyelonephritis: Status: Acute (2) Gangrene of toe of left foot: Status: Acute (3) ESRD (end stage renal disease): Status: Acute (4) Metabolic acidosis: Status: Acute Plan 68yo F with CKD5, DM2 with nephropathy, HTN, seizure disorder presenting with worsening L 5th toe gangrene admitted for osteomyelitis/toe gangrene,found to have severe metabolic acidosis due to uremia/renal failure, severe anemia severe metabolic acidosis, resolved MICHAEL/CKD5 progressed to ESRD - status post IV bicarbonate drip, temp HD catheter placed 03/22, last hemodialysis on 03/25, scheduled for tunneled catheter by IR at a.m. -being followed by Nephrology diabetic gangrene/osteomyelitis - continue IV daptomycin + piperacillin-tazobactam 03/22-, BCx negative; ID consult pending - Gen Surg consulted plan is for amputation 5th toe on March 28 emphysematous pyelonephritis - noted on CT A/P done to r/o obstructive uropathy. Urology consulted and recommends medical management with antibiotics, urine culture uncollected, blood cultures negative continue antibiotics as above. severe anemia of CKD - FOBT negative. Transfused 3 unit pRBCs with appropriate response; continue ferrous sulfate, epo per Nephrology DM2 -stable blood sugar continue ana-dose lispro HTN - amlodipine seizure disorder -no seizure like activity noted, continue levetiracetam + valproate + phenytoin Abrasion right hip/thigh continue dressing as per wound nurse VTE ppx - compression boots dispo - PT eval for safe disposition In my clinical judgment, the patient requires continued inpatient hospitalization for the following reasons: IV ABX, HD initiation/placement, source control Quality Stroke Does the patient have a stroke diagnosis?: No VTE Prior VTE?: No VTE Risk Level:: Medical - moderate - high VTE Device Contraindication: N/A - Device Ordered VTE Drug Contraindication: N/A - Med Ordered
--- NOTE | 2024-03-26 13:09 | P.PNGS_ITS ---
Subjective Subjective Date of Service: 03/26/24 Interval history: No events reported Patient denies any new complaints Physical Exam 2 Vital Signs: Vital Signs: Last Vital Signs Temp 98.2 F 03/26/24 11:44 Pulse 93 03/26/24 11:44 Resp 18 03/26/24 11:44 BP 127/62 03/26/24 11:44 Pulse Ox 97 03/26/24 11:44 O2 Del Method Room Air 03/26/24 11:44 BMI result Body Mass Index 41.8 Const: Other: Very frail looking General: no acute distress Resp: Effort & Inspection: normal respiratory effort Cardio: Rate: regular rate GI: Palpation (GI): Soft to palpation Extrem: Other: Gangrene of the 5th toe left Objective Data Active Medications Acetaminophen (Acetaminophen 325 Mg Tablet) 650 mg PO Q6H PRN PRN Reason: Pain, Mild 1-3,fever,headache Last Admin: 03/26/24 03:59 Dose: 650 mg Documented By: SHADE Amlodipine Besylate (Amlodipine Besylate 10 Mg Tablet) 10 mg PO DAILY [facility]; Protocol Last Admin: 03/26/24 09:00 Dose: 10 mg Documented By: EFRAIN Aspirin (Aspirin Enteric Coated 81 Mg Tablet.) 81 mg PO DAILY [facility] Last Admin: 03/26/24 09:06 Dose: Not Given Documented By: EFRAIN Non-Admin Reason: GETTING DIALYSIS CATH Calcium Carbonate (Calcium Carbonate 750 Mg Tab.Chew) 750 mg PO Q4H PRN PRN Reason: Heartburn Dextrose (Dextrose 50 % 25 Gm/50 Ml Syringe) 25 gm IVPUSH Q15M PRN; Protocol PRN Reason: per Hypoglycemia Standing Ord. Ferrous Sulfate (Ferrous Sulfate 324 Mg Tablet.) 324 mg PO DAILY [facility] Last Admin: 03/26/24 09:00 Dose: 324 mg Documented By: EFRAIN Glucose (Glucose Gel 15 Gm Gel..Gram.) 15 gm PO Q15M PRN; Protocol PRN Reason: per Hypoglycemia Standing Ord. Hydromorphone HCl (Hydromorphone Hcl 0.5 Mg/0.5 Ml Syringe) 0.5 mg IVPUSH Q4H PRN; Protocol PRN Reason: Pain, Severe (Pain Scale 7-10) Last Admin: 03/26/24 11:03 Dose: 0.5 mg Documented By: EFRAIN Hydroxyzine HCl (Hydroxyzine Hcl 25 Mg Tablet) 25 mg PO Q8H PRN PRN Reason: Anxiety Last Admin: 03/26/24 11:14 Dose: 25 mg Documented By: EFRAIN Daptomycin 620 mg/ Sodium (Chloride) 62.4 mls @ 124.8 mls/hr IV Q48H [facility] Last Admin: 03/26/24 12:44 Dose: 124.8 mls/hr Documented By: EFRAIN Folic Acid 1 mg/ Sodium (Chloride) 50.2 mls @ 100.4 mls/hr IV DAILY [facility] Last Admin: 03/26/24 09:09 Dose: Not Given Documented By: EFRAIN Non-Admin Reason: WWILL BE CHANGED TO PO Piperacillin Sod/Tazobactam (Sod 2.25 gm/ Sodium Chloride) 50 mls @ 100 mls/hr IV Q8H [facility] Last Infusion: 03/26/24 10:21 Dose: Infused Documented By: EFRAIN Insulin Human Lispro (Insulin Lispro 100 Unit/Ml 3 Ml Vial) 0 unit SUBCUT QIDACHS [facility]; Protocol Last Admin: 03/26/24 11:40 Dose: Not Given Documented By: EFRAIN Non-Admin Reason: No Insulin Coverage Levetiracetam (Levetiracetam 500 Mg Tablet) 500 mg PO BID [facility] Last Admin: 03/26/24 09:00 Dose: 500 mg Documented By: EFRAIN Magnesium Hydroxide (Milk Of Magnesia 30 Ml Oral.Susp) 30 ml PO DAILY PRN PRN Reason: Constipation Melatonin (Melatonin 3 Mg Tablet) 6 mg PO BEDTIME PRN PRN Reason: Insomnia Last Admin: 03/25/24 21:43 Dose: 6 mg Documented By: SHADE Nystatin (Nystatin Powder 15 Gm Bottle) 1 appl TOPICAL BID [facility]; Protocol Last Admin: 03/26/24 09:09 Dose: 1 appl Documented By: EFRAIN Ondansetron HCl (Ondansetron Hcl 4 Mg/2 Ml Vial) 4 mg IVPUSH Q6H PRN PRN Reason: Nausea and Vomiting Last Admin: 03/23/24 21:14 Dose: 4 mg Documented By: MICAH Phenytoin Sodium (Phenytoin Sodium Extended 100 Mg Capsule) 100 mg PO TID [facility] Last Admin: 03/26/24 09:00 Dose: 100 mg Documented By: EFRAIN Senna (Sennosides 8.6 Mg Tablet) 17.2 mg PO BEDTIME PRN PRN Reason: constipation Sodium Chloride (0.9 % Sodium Chloride Flush 3 Ml Syringe) 3 ml IVFLUSH QSHIFT [facility] Last Admin: 03/26/24 09:08 Dose: 3 ml Documented By: EFRAIN Sodium Zirconium Cyclosilicate (Sodium Zirconium Cyclosilicate 10 Gm Powd.Pack) 10 gm PO MOWEFR [facility] Last Admin: 03/25/24 14:59 Dose: 10 gm Documented By: EFRAIN Trazodone HCl (Trazodone Hcl 100 Mg Tablet) 100 mg PO BEDTIME PRN PRN Reason: Sleep Last Admin: 03/25/24 21:44 Dose: 100 mg Documented By: SHADE Valproic Acid (Valproic Acid 250 Mg Capsule) 1,000 mg PO BID [facility] Last Admin: 03/26/24 09:01 Dose: 1,000 mg Documented By: EFRAIN Vitamin D (Cholecalciferol (Vitamin D3) 25 Mcg Tablet) 50 mcg PO DAILY [facility] Last Admin: 03/26/24 09:01 Dose: 50 mcg Documented By: EFRAIN Labs 03/24/24 06:24 03/25/24 06:26 Labs: Laboratory Results - last 24 hr 03/22/24 03/22/24 03/22/24 04:59 07:42 11:33 MCV 101.9 H MCH 32.2 MCHC 31.6 RDW 13.4 Plt Count 107 L D MPV 11.7 Immature Gran % (Auto) 3.8 H Neut % (Auto) 79.7 H Lymph % (Auto) 7.0 L [place] % (Auto) 7.8 Eos % (Auto) 1.5 Baso % (Auto) 0.2 Lymph # (Auto) 1.2 [place] # (Auto) 1.3 H Eos # (Auto) 0.3 Baso # (Auto) 0.0 Abs Immat Gran (auto) 0.64 H Absolute Neuts (auto) 13.3 H Absolute Nucleated RBC 0.000 Nucleated RBC % (auto) 0.0 PT INR APTT VBG pH VBG pCO2 VBG pO2 VBG HCO3 VBG O2 Saturation VBG Base Excess Anion Gap 21 H 18 Estim Creat Clear Calc 7.1 7.2 Estimated GFR 5 6 POC Glucose 136 H Random Glucose 145 H 120 H Estimat Average Glucose 105 Hemoglobin A1c % 5.3 Calcium 7.1 L 6.8 L Magnesium 1.8 Vitamin B12 628 Folate 2.3 L Hep Bs Antigen Hep Bs Antibody Hep B Core Total Ab 03/22/24 03/22/24 03/22/24 11:50 13:12 14:58 MCV 92.9 D MCH 29.7 MCHC 31.9 RDW 20.0 H Plt Count 200 D MPV Immature Gran % (Auto) Neut % (Auto) Lymph % (Auto) [place] % (Auto) Eos % (Auto) Baso % (Auto) Lymph # (Auto) [place] # (Auto) Eos # (Auto) Baso # (Auto) Abs Immat Gran (auto) Absolute Neuts (auto) Absolute Nucleated RBC 0.000 Nucleated RBC % (auto) 0.0 PT 11.0 INR 0.9 APTT 31.1 VBG pH 7.05 L* VBG pCO2 27 VBG pO2 70 VBG HCO3 8 L VBG O2 Saturation 91.0 VBG Base Excess -20.8 Anion Gap 19 Estim Creat Clear Calc 7.4 Estimated GFR 6 POC Glucose 88 Random Glucose 118 H Estimat Average Glucose Hemoglobin A1c % Calcium 6.8 L Magnesium Vitamin B12 Folate Hep Bs Antigen Negative Hep Bs Antibody NONREACTIVE Hep B Core Total Ab Nonreactive 03/22/24 03/25/24 03/25/24 21:09 16:22 21:11 MCV MCH MCHC RDW Plt Count MPV Immature Gran % (Auto) Neut % (Auto) Lymph % (Auto) [place] % (Auto) Eos % (Auto) Baso % (Auto) Lymph # (Auto) [place] # (Auto) Eos # (Auto) Baso # (Auto) Abs Immat Gran (auto) Absolute Neuts (auto) Absolute Nucleated RBC Nucleated RBC % (auto) PT INR APTT VBG pH VBG pCO2 VBG pO2 VBG HCO3 VBG O2 Saturation VBG Base Excess Anion Gap Estim Creat Clear Calc Estimated GFR POC Glucose 116 H 97 214 H Random Glucose Estimat Average Glucose Hemoglobin A1c % Calcium Magnesium Vitamin B12 Folate Hep Bs Antigen Hep Bs Antibody Hep B Core Total Ab 03/26/24 03/26/24 07:33 11:23 MCV MCH MCHC RDW Plt Count MPV Immature Gran % (Auto) Neut % (Auto) Lymph % (Auto) [place] % (Auto) Eos % (Auto) Baso % (Auto) Lymph # (Auto) [place] # (Auto) Eos # (Auto) Baso # (Auto) Abs Immat Gran (auto) Absolute Neuts (auto) Absolute Nucleated RBC Nucleated RBC % (auto) PT INR APTT VBG pH VBG pCO2 VBG pO2 VBG HCO3 VBG O2 Saturation VBG Base Excess Anion Gap Estim Creat Clear Calc Estimated GFR POC Glucose 109 100 Random Glucose Estimat Average Glucose Hemoglobin A1c % Calcium Magnesium Vitamin B12 Folate Hep Bs Antigen Hep Bs Antibody Hep B Core Total Ab Procedures Date of Service Date of Service: 03/26/24 Progress Note: A&P Assessment and plan (1) Gangrene of toe of left foot: Status: Acute Assessment and Plan: Has gangrene of the 5th toe I explained the benefit of proceeding with amputation of the 5th toe I reviewed the risks including but not limited to bleeding, infections and poor healing She seems to understand and says she will go ahead with this Her daughter was with her during the visit Plan for amputation 5th toe on March 28 Time Spent With Patient Time: Total time managing care of this patient today ____ minutes. Quality Stroke Does the patient have a stroke diagnosis?: No VTE Prior VTE?: No VTE Risk Level:: Medical - moderate - high VTE Device Contraindication: N/A - Device Ordered VTE Drug Contraindication: N/A - Med Ordered
--- NOTE | 2024-03-26 14:35 | HO.WOUND ---
Wound Consult: Initial 68yr old?female admitted to [facility] on 03/22/24 - See progress notes and H&P for detailed history.? Wound consult placed for right Hip and Skin folds.? Patient agreeable to assessment and photo documentation.? window shade estimator present and patients daughter present during assessment. Patient daughter via stonemason helper reports the right posterior thigh / hip area abrasion is from a fall at home when in the middle of the night she fell into a dresser. The site did not need treatment at home - she reports it was a closed abrasion / blister. Not pressure related at this time. The patients skin folds are noted for MASD - Fungal dermatitis - mirrored red moist tissue within skin fold -Nystatin in use. Recommend continuing with Nystatin and then may transition to Interdry. Right Posterior thigh / Hip Etiology: ??Abrasion - not consistent with pressure or moisture Present on Admission Measurements: 4cm x 4cm x 0.1cm Wound Bed: partial thickness tissue loss scattered adherent dry scab noted Drainage / Odor: scant serosanginous drainage noted on foam dressing Edges: ? irregular Ruth wound: ?Intact - No Induration, Fluctuance or Warmth noted Pain: Tenderness reported Goals of Treatment: ? Triad for moist autolytic wound healing Skin folds - Cleanse with PH balance wipes, pat dry with soft cloth.? Apply antifungal power to assist with moisture management.? Be sure to dust of excess powder to prevent caking on skin and in folds. Apply per provider orders. Tuck Interdry AG Sheet into skin fold to wick and translocate moisture away from skin fold.? Be sure to leave at least 2 inch of fabric exposed outside of skin fold.? Change after 5 days or when soiled. Left 5th toe - dry necrotic toe noted - orders in place by provider for Betadine application. Recommendations: 1. Turn and Reposition every 2 hours and as needed for patient comfort.? Use pillows or wedges to support off loading positions. 2. Off Load all bony prominences with use of pillows and heel boots if needed.? Apply Preventative foams where needed. ? 3. Monitor for incontinence and moisture control, use barrier creams when needed for prevention and treatment. 4. Provide adequate and supplemental nutrition.? 5. Order low air loss mattress. 6. When applicable maintain blood glucose levels per Providers order. 7. Skin Folds - Cleanse with PH balance wipes, pat dry with soft cloth.? Apply antifungal power to assist with moisture management.? Be sure to dust of excess powder to prevent caking on skin and in folds. Apply per provider orders. Tuck Interdry AG Sheet into skin fold to wick and translocate moisture away from skin fold.? Be sure to leave at least 2 inch of fabric exposed outside of skin fold.? Change after 5 days or when soiled. 8. right Posterior thigh / Hip - Off Load Pressure with Q2 hr turns and use of pillows - Cleanse with Ns moist gauze, pat dry. ?Apply thin layer of Triad to wound bed. Cover with foam dressing to aid in off loading and protection from friction. Change every 3 days and PRN. 9. Left 5th Toe - Continue Betadine application - defer to providers. Re-consult wound care Nurse for wound deterioration or wound changes.
[2024-03-26 16:28] LABS: Glucose, Whole Blood 137 mg/dL (60-115)
[2024-03-26 20:57] LABS: Glucose, Whole Blood 157 mg/dL (60-115)
[2024-03-26] MEDS: oxyCODONE HCl Immed Release 15 MG TABLET PO (21:05)
[2024-03-26] MEDS: traZODone HCL 100 MG TABLET PO (21:06)
[2024-03-26] MEDS: Insulin Lispro 100 UNIT/ML 3 ML VIAL SUBCUT (21:07)
[2024-03-26] MEDS: Melatonin 3 MG TABLET 6 MG PO (23:10)
--- NOTE | 2024-03-26 23:58 | W.PM.IDCN ---
History of Present Illness Data of Consult Service Date: 03/25/24 Requesting physician: Chaya Rodriguez Primary Care Provider: Lucrecia Teixeira MD [facility] Reason for consult: left foot infection concern She has left foot wound for 2 weeks. She left [facility] AMA, Left foot fifth metatarsal possible fracture and/or OM She is not better with Doxycycline. Review of Systems Review of Systems: Yes all other systems are reviewed and are negative [facility] Past Medical History Medical History ESRD (end stage renal disease) Generalized seizure Acute kidney injury CKD (chronic kidney disease) stage 3, GFR 30-59 ml/min CHF (congestive heart failure) Anemia Brain tumor (benign) Lower extremity edema Pneumonia Asthma Pulmonary nodule HLD (hyperlipidemia) Seizure Acute hypoxemic respiratory failure due to COVID-19 COVID-19 Kidney stone Depression Gastritis Diabetes Family History Family History Father CAD (coronary artery disease) Brother Lung cancer Sister Kidney stone Family history: reviewed and not pertinent Surgical History Surgical History H/O lithotripsy H/O ureteroscopy H/O cystoscopy S/P ureteral stent placement History of cholecystectomy H/O hernia repair Social History Social History Household Members: Family Housing: Apartment Do you presently have visiting nurse or other home services: No Alcohol intake: former Comment: pt sleeping at this time Patient Tobacco Use Status: Never used Tobacco e-Cigarette/Vaping Use: Never Used Advance Directives Date on File: 12/20/21 service: No Current occupational status: unemployed Meds Allergies Allergy/AdvReac Type Severity Reaction Status Date / Time Egg Derived Allergy Unknown Verified 03/21/24 18:41 Active Medications: Current Medications Acetaminophen (Acetaminophen 325 Mg Tablet) 650 mg PO Q6H PRN PRN Reason: Pain, Mild 1-3,fever,headache Last Admin: 03/26/24 03:59 Dose: 650 mg Amlodipine Besylate (Amlodipine Besylate 10 Mg Tablet) 10 mg PO DAILY [facility]; Protocol Last Admin: 03/26/24 09:00 Dose: 10 mg Aspirin (Aspirin Enteric Coated 81 Mg Tablet.) 81 mg PO DAILY [facility] Last Admin: 03/26/24 09:06 Dose: Not Given Calcium Carbonate (Calcium Carbonate 750 Mg Tab.Chew) 750 mg PO Q4H PRN PRN Reason: Heartburn Dextrose (Dextrose 50 % 25 Gm/50 Ml Syringe) 25 gm IVPUSH Q15M PRN; Protocol PRN Reason: per Hypoglycemia Standing Ord. Ferrous Sulfate (Ferrous Sulfate 324 Mg Tablet.) 324 mg PO DAILY [facility] Last Admin: 03/26/24 09:00 Dose: 324 mg Glucose (Glucose Gel 15 Gm Gel..Gram.) 15 gm PO Q15M PRN; Protocol PRN Reason: per Hypoglycemia Standing Ord. Hydromorphone HCl (Hydromorphone Hcl 0.5 Mg/0.5 Ml Syringe) 0.5 mg IVPUSH Q4H PRN; Protocol PRN Reason: Pain, Severe (Pain Scale 7-10) Last Admin: 03/26/24 23:10 Dose: 0.5 mg Hydroxyzine HCl (Hydroxyzine Hcl 25 Mg Tablet) 25 mg PO Q8H PRN PRN Reason: Anxiety Last Admin: 03/26/24 23:10 Dose: 25 mg Daptomycin 620 mg/ Sodium (Chloride) 62.4 mls @ 124.8 mls/hr IV Q48H [facility] Last Infusion: 03/26/24 13:31 Dose: Infused Folic Acid 1 mg/ Sodium (Chloride) 50.2 mls @ 100.4 mls/hr IV DAILY [facility] Last Admin: 03/26/24 09:09 Dose: Not Given Piperacillin Sod/Tazobactam (Sod 2.25 gm/ Sodium Chloride) 50 mls @ 100 mls/hr IV Q8H [facility] Last Infusion: 03/26/24 17:23 Dose: Infused Insulin Human Lispro (Insulin Lispro 100 Unit/Ml 3 Ml Vial) 0 unit SUBCUT QIDACHS [facility]; Protocol Last Admin: 03/26/24 21:07 Dose: 2 unit Levetiracetam (Levetiracetam 500 Mg Tablet) 500 mg PO BID [facility] Last Admin: 03/26/24 21:05 Dose: 500 mg Magnesium Hydroxide (Milk Of Magnesia 30 Ml Oral.Susp) 30 ml PO DAILY PRN PRN Reason: Constipation Melatonin (Melatonin 3 Mg Tablet) 6 mg PO BEDTIME PRN PRN Reason: Insomnia Last Admin: 03/26/24 23:10 Dose: 6 mg Nystatin (Nystatin Powder 15 Gm Bottle) 1 appl TOPICAL BID [facility]; Protocol Last Admin: 03/26/24 21:07 Dose: 1 appl Ondansetron HCl (Ondansetron Hcl 4 Mg/2 Ml Vial) 4 mg IVPUSH Q6H PRN PRN Reason: Nausea and Vomiting Last Admin: 03/23/24 21:14 Dose: 4 mg Phenytoin Sodium (Phenytoin Sodium Extended 100 Mg Capsule) 100 mg PO TID [facility] Last Admin: 03/26/24 21:05 Dose: 100 mg Senna (Sennosides 8.6 Mg Tablet) 17.2 mg PO BEDTIME PRN PRN Reason: constipation Sodium Chloride (0.9 % Sodium Chloride Flush 3 Ml Syringe) 3 ml IVFLUSH QSHIFT [facility] Last Admin: 03/26/24 21:07 Dose: 3 ml Sodium Zirconium Cyclosilicate (Sodium Zirconium Cyclosilicate 10 Gm Powd.Pack) 10 gm PO MOWEFR [facility] Last Admin: 03/25/24 14:59 Dose: 10 gm Trazodone HCl (Trazodone Hcl 100 Mg Tablet) 100 mg PO BEDTIME PRN PRN Reason: Sleep Last Admin: 03/26/24 21:06 Dose: 100 mg Valproic Acid (Valproic Acid 250 Mg Capsule) 1,000 mg PO BID [facility] Last Admin: 03/26/24 21:06 Dose: 1,000 mg Vitamin D (Cholecalciferol (Vitamin D3) 25 Mcg Tablet) 50 mcg PO DAILY [facility] Last Admin: 03/26/24 09:01 Dose: 50 mcg Home Medications ?Medication ?Instructions ?Recorded ?Confirmed ?Last Taken ?Type blood sugar diagnostic (FreeStyle 03/28/20 09/09/22 Unknown History Lite Strips) blood-glucose meter (FreeStyle 03/28/20 09/09/22 Unknown History [place] Lite kit) lancets 28 gauge (FreeStyle 03/28/20 09/09/22 Unknown History Lancets) omeprazole 40 mg capsule,delayed 40 mg PO BID@0630,1630 10/02/21 03/22/24 03/21/24 History release blood pressure test kit-large #1 ea 10/12/21 09/09/22 Unknown History atorvastatin 80 mg tablet 80 mg PO DAILY 12/20/21 03/22/24 03/21/24 History nebulizers 01/20/22 09/09/22 Unknown History amlodipine 10 mg tablet 10 mg PO DAILY 05/29/22 03/22/24 03/21/24 History aspirin 81 mg tablet,delayed 81 mg PO DAILY 05/29/22 03/22/24 03/21/24 History release lancets 33 gauge (TRUEplus Lancets) #100 ea 06/07/22 09/09/22 Unknown History trazodone 50 mg tablet 100 mg PO BEDTIME PRN Sleep 06/07/22 03/22/24 10/26/23 History cholecalciferol (vitamin D3) 50 50 mcg PO DAILY 11/24/22 03/22/24 03/21/24 History mcg (2,000 unit) tablet ferrous gluconate 324 mg (38 mg 324 mg PO DAILY 11/24/22 03/22/24 03/21/24 History iron) tablet furosemide 40 mg tablet 80 mg PO BID 11/24/22 03/22/24 03/21/24 History insulin aspart 6 - 8 unit subcut TID 10/27/23 03/22/24 03/21/24 History (niacinamide)(U-100) 100 unit/mL(3 mL) subcutaneous pen (Fiasp FlexTouch U-100 Insulin) acetaminophen 650 mg 650 mg PO Q8H PRN mild pain 03/22/24 03/22/24 Unknown History tablet,extended release diclofenac sodium 1 % topical gel 2 g topical BEDTIME PRN Pain 03/22/24 03/22/24 03/21/24 History losartan 100 mg tablet 100 mg PO BID 03/22/24 03/22/24 03/21/24 History valproic acid 250 mg capsule 1,000 mg PO BID 03/22/24 03/22/24 03/21/24 History Physical Exam Vital Signs: Vital Signs: Last Vital Signs Temp 97.2 F 03/26/24 23:09 Pulse 83 03/26/24 23:09 Resp 20 03/26/24 23:10 BP 158/69 H 03/26/24 23:09 Pulse Ox 99 03/26/24 23:09 O2 Del Method Room Air 03/26/24 23:09 BMI result Body Mass Index 41.8 Const: General: cooperative HEENT: Head: Yes normal to inspection Face and sinus: Yes normal facial exam Mouth: Normal oral and palatal mucosa present Teeth and gingiva: dentition normal Eyes: General: appearance normal, both eyes and all related structures Pupils: Equal, round and reactive pupils present Resp: Effort & Inspection: normal respiratory effort Cardio: Rate: regular rate Rhythm: regular rhythm GI: Palpation (GI): Soft to palpation and nontender : General: Yes no CVA tenderness Back/Spine/Pelvis: Back: no CVA tenderness Skin: General skin exam: no rashes or lesions noted Neuro: General: moves all extremities Cranial nerves: Yes Equal, round and reactive pupils present Extrem: Other: reddended dark left fifth toe area Psych: Appearance: grossly normal Results Labs 03/24/24 06:24 03/25/24 06:26 Microbiology Microbiology Results: Microbiology 03/21/24 21:31 Blood - Venous Blood Culture - Final No growth after 5 days. 03/21/24 22:30 Blood - Venous Blood Culture - Preliminary No growth after 48 hours. Assessment and Plan (1) Gangrene of toe of left foot: Status: Acute Plan Await blood culture. Probably six weeks IV Vancomycin or Ertapenam depending on whether MRSA or not.
[2024-03-27] VITALS (15 sets, daily range): BP systolic 127–160; BP diastolic 53–72; PULSE 70–92; RESP 12–22; TEMP 36.3–37.7; O2SAT 93–99
[2024-03-27] MEDS: Piperacillin Sodium/Tazobactam 2.25 GM in 0.9 % Sodium Chloride 50 ML IV ×3 (02:02→21:21)
[2024-03-27 07:44] LABS: Glucose, Whole Blood 116 mg/dL (60-115)
--- NOTE | 2024-03-27 08:15 | PM.PNGS ---
Subjective Subjective Date of Service: 03/28/24 Interval history: No new complaints No events reported Physical Exam Vital Signs: Vital Signs: Last Vital Signs Temp 97.6 F 03/27/24 07:26 Pulse 77 03/27/24 07:26 Resp 18 03/27/24 07:26 BP 129/56 L 03/27/24 07:26 Pulse Ox 96 03/27/24 07:26 O2 Del Method Room Air 03/27/24 07:26 BMI result Body Mass Index 41.8 Const: General: comfortable and no acute distress Resp: Effort & Inspection: normal respiratory effort Cardio: Rate: regular rate GI: Palpation (GI): Soft to palpation Extrem: Other: Gangrene of the 5th toe, left, with scanty drainage Objective Data Active Medications Acetaminophen (Acetaminophen 325 Mg Tablet) 650 mg PO Q6H PRN PRN Reason: Pain, Mild 1-3,fever,headache Last Admin: 03/26/24 03:59 Dose: 650 mg Documented By: SHADE Amlodipine Besylate (Amlodipine Besylate 10 Mg Tablet) 10 mg PO DAILY [facility]; Protocol Last Admin: 03/26/24 09:00 Dose: 10 mg Documented By: EFRAIN Aspirin (Aspirin Enteric Coated 81 Mg Tablet.) 81 mg PO DAILY [facility] Last Admin: 03/26/24 09:06 Dose: Not Given Documented By: EFRAIN Non-Admin Reason: GETTING DIALYSIS CATH Calcium Carbonate (Calcium Carbonate 750 Mg Tab.Chew) 750 mg PO Q4H PRN PRN Reason: Heartburn Dextrose (Dextrose 50 % 25 Gm/50 Ml Syringe) 25 gm IVPUSH Q15M PRN; Protocol PRN Reason: per Hypoglycemia Standing Ord. Ferrous Sulfate (Ferrous Sulfate 324 Mg Tablet.) 324 mg PO DAILY [facility] Last Admin: 03/26/24 09:00 Dose: 324 mg Documented By: EFRAIN Glucose (Glucose Gel 15 Gm Gel..Gram.) 15 gm PO Q15M PRN; Protocol PRN Reason: per Hypoglycemia Standing Ord. Hydromorphone HCl (Hydromorphone Hcl 0.5 Mg/0.5 Ml Syringe) 0.5 mg IVPUSH Q4H PRN; Protocol PRN Reason: Pain, Severe (Pain Scale 7-10) Last Admin: 03/26/24 23:10 Dose: 0.5 mg Documented By: YAYA Hydroxyzine HCl (Hydroxyzine Hcl 25 Mg Tablet) 25 mg PO Q8H PRN PRN Reason: Anxiety Last Admin: 03/26/24 23:10 Dose: 25 mg Documented By: YAYA Comments: anxiety Daptomycin 620 mg/ Sodium (Chloride) 62.4 mls @ 124.8 mls/hr IV Q48H [facility] Last Infusion: 03/26/24 13:31 Dose: Infused Documented By: EFRAIN Folic Acid 1 mg/ Sodium (Chloride) 50.2 mls @ 100.4 mls/hr IV DAILY [facility] Last Admin: 03/26/24 09:09 Dose: Not Given Documented By: EFRAIN Non-Admin Reason: WWILL BE CHANGED TO PO Piperacillin Sod/Tazobactam (Sod 2.25 gm/ Sodium Chloride) 50 mls @ 100 mls/hr IV Q8H [facility] Last Infusion: 03/27/24 02:35 Dose: Infused Documented By: YAYA Insulin Human Lispro (Insulin Lispro 100 Unit/Ml 3 Ml Vial) 0 unit SUBCUT QIDACHS [facility]; Protocol Last Admin: 03/26/24 21:07 Dose: 2 unit Documented By: YAYA Levetiracetam (Levetiracetam 500 Mg Tablet) 500 mg PO BID [facility] Last Admin: 03/26/24 21:05 Dose: 500 mg Documented By: YAYA Magnesium Hydroxide (Milk Of Magnesia 30 Ml Oral.Susp) 30 ml PO DAILY PRN PRN Reason: Constipation Melatonin (Melatonin 3 Mg Tablet) 6 mg PO BEDTIME PRN PRN Reason: Insomnia Last Admin: 03/26/24 23:10 Dose: 6 mg Documented By: YAYA Comments: requested for sleep Nystatin (Nystatin Powder 15 Gm Bottle) 1 appl TOPICAL BID [facility]; Protocol Last Admin: 03/26/24 21:07 Dose: 1 appl Documented By: YAYA Ondansetron HCl (Ondansetron Hcl 4 Mg/2 Ml Vial) 4 mg IVPUSH Q6H PRN PRN Reason: Nausea and Vomiting Last Admin: 03/23/24 21:14 Dose: 4 mg Documented By: MICAH Phenytoin Sodium (Phenytoin Sodium Extended 100 Mg Capsule) 100 mg PO TID [facility] Last Admin: 03/26/24 21:05 Dose: 100 mg Documented By: YAYA Senna (Sennosides 8.6 Mg Tablet) 17.2 mg PO BEDTIME PRN PRN Reason: constipation Sodium Chloride (0.9 % Sodium Chloride Flush 3 Ml Syringe) 3 ml IVFLUSH QSHIFT [facility] Last Admin: 03/26/24 21:07 Dose: 3 ml Documented By: YAYA Sodium Zirconium Cyclosilicate (Sodium Zirconium Cyclosilicate 10 Gm Powd.Pack) 10 gm PO MOWEFR [facility] Last Admin: 03/25/24 14:59 Dose: 10 gm Documented By: EFRAIN Trazodone HCl (Trazodone Hcl 100 Mg Tablet) 100 mg PO BEDTIME PRN PRN Reason: Sleep Last Admin: 03/26/24 21:06 Dose: 100 mg Documented By: YAYA Comments: requested for sleep Valproic Acid (Valproic Acid 250 Mg Capsule) 1,000 mg PO BID [facility] Last Admin: 03/26/24 21:06 Dose: 1,000 mg Documented By: YAYA Vitamin D (Cholecalciferol (Vitamin D3) 25 Mcg Tablet) 50 mcg PO DAILY [facility] Last Admin: 03/26/24 09:01 Dose: 50 mcg Documented By: EFRAIN Labs 03/28/24 06:55 03/28/24 06:55 Labs: Laboratory Results - last 24 hr 03/26/24 03/26/24 03/26/24 11:23 16:19 20:52 POC Glucose 100 137 H 157 H 03/27/24 07:41 POC Glucose 116 H Microbiology Microbiology Results: Microbiology 03/21/24 22:30 Blood Culture - Final Blood - Venous No growth after 5 days. 03/21/24 21:31 Blood Culture - Final Blood - Venous No growth after 5 days. Procedures Date of Service Date of Service: 03/28/24 Progress Note: A&P Assessment and plan (1) Gangrene of toe of left foot: Status: Acute Assessment and Plan: For toe amputation tomorrow Explained plan to patient She says she understands the technique of the procedure as well as the risks, benefits, and alternatives Time Spent With Patient Time: Total time managing care of this patient today ____ minutes. Quality Stroke Does the patient have a stroke diagnosis?: No VTE Prior VTE?: No VTE Risk Level:: Medical - moderate - high VTE Device Contraindication: N/A - Device Ordered VTE Drug Contraindication: N/A - Med Ordered
[2024-03-27] MEDS: levETIRAcetam 500 MG TABLET PO ×2 (09:18→21:06)
[2024-03-27] MEDS: Ferrous Sulfate 324 MG TABLET.DR PO (09:18)
[2024-03-27] MEDS: Valproic Acid 250 MG CAPSULE 1000 MG PO ×2 (09:18→21:10)
[2024-03-27] MEDS: Cholecalciferol (Vitamin D3) 25 MCG TABLET 50 MCG PO (09:18)
[2024-03-27] MEDS: amLODIPine Besylate 10 MG TABLET PO (09:19)
[2024-03-27] MEDS: Phenytoin Sodium Extended 100 MG CAPSULE PO ×3 (09:19→21:06)
[2024-03-27] MEDS: 0.9 % Sodium Chloride Flush 3 ML SYRINGE IVFLUSH ×3 (09:20→21:15)
[2024-03-27] MEDS: HYDROmorphone HCl 0.5 MG/0.5 ML SYRINGE IVPUSH (09:21)
[2024-03-27] MEDS: Nystatin Powder 15 GM BOTTLE 1 APPL TOPICAL ×2 (09:22→21:28)
[2024-03-27 11:24] LABS: Glucose, Whole Blood 109 mg/dL (60-115)
[2024-03-27] MEDS: ceFAZolin Sodium/Dextrose,Iso 2 GM/50 ML PIGGYBACK IV (13:07)
--- NOTE | 2024-03-27 13:41 | P.PNIM_ITS ---
Subjective Subjective Date of Service: 03/27/24 Interval History: Being followed for acidosis/toe gangrene History obtained via tobacco packer Patient complaining of right hip pain at site of abrasion, and leg pain was previously residing at home daughter was helping his 2 hours of [employer]OL [employer] services walking to bathroom with walker. No fevers no chills, NPO for PermCath placement. Review of Systems All other system reviewed and are negative. Physical Exam 2 Vital Signs: Vital Signs: Last Vital Signs Temp 97.3 F 03/27/24 11:12 Pulse 78 03/27/24 13:30 Resp 16 03/27/24 13:30 BP 146/65 H 03/27/24 13:30 Pulse Ox 98 03/27/24 13:30 O2 Del Method Room Air 03/27/24 13:30 BMI result Body Mass Index 41.8 Const: Other: Gen: in no acute distress HEENT: sclera anicteric, moist mucus membranes Neck: supple, R IJ HD catheter Lungs: clear to auscultation bilaterally Heart: regular rate and rhythm, no murmurs Abd: soft, non-tender, non-distended, bowel sounds audible Ext: no edema, left leg pain with no redness or swelling Skin: warm/well-perfused, L 5th toe gangrenous Right posterior thigh/hip abrasion, no open wound Neuro: alert and oriented x3, no focal findings, decreased sensations both feet Psych: appropriate affect Objective Data Active Medications Acetaminophen (Acetaminophen 325 Mg Tablet) 650 mg PO Q6H PRN PRN Reason: Pain, Mild 1-3,fever,headache Last Admin: 03/26/24 03:59 Dose: 650 mg Documented By: SHADE Amlodipine Besylate (Amlodipine Besylate 10 Mg Tablet) 10 mg PO DAILY [facility]; Protocol Last Admin: 03/27/24 09:19 Dose: 10 mg Documented By: EFRAIN Aspirin (Aspirin Enteric Coated 81 Mg Tablet.Dr) 81 mg PO DAILY [facility] Last Admin: 03/27/24 09:22 Dose: Not Given Documented By: EFRAIN Non-Admin Reason: Hold for dialysis cath Calcium Carbonate (Calcium Carbonate 750 Mg Tab.Chew) 750 mg PO Q4H PRN PRN Reason: Heartburn Dextrose (Dextrose 50 % 25 Gm/50 Ml Syringe) 25 gm IVPUSH Q15M PRN; Protocol PRN Reason: per Hypoglycemia Standing Ord. Fentanyl (Fentanyl Citrate/Pf 100 Mcg/2 Ml Vial) 25 mcg IVPUSH Q5M PRN; Protocol PRN Reason: sedation per intraop request by provider Stop: 03/27/24 14:40 Fentanyl (Fentanyl Citrate/Pf 100 Mcg/2 Ml Vial) 50 mcg IVPUSH Q5M PRN; Protocol PRN Reason: sedation per intraop request by provider Stop: 03/27/24 14:40 Ferrous Sulfate (Ferrous Sulfate 324 Mg Tablet.Dr) 324 mg PO DAILY [facility] Last Admin: 03/27/24 09:18 Dose: 324 mg Documented By: EFRAIN Folic Acid (Folic Acid 1 Mg Tablet) 1 mg PO DAILY [facility] Glucose (Glucose Gel 15 Gm Gel..Gram.) 15 gm PO Q15M PRN; Protocol PRN Reason: per Hypoglycemia Standing Ord. Hydroxyzine HCl (Hydroxyzine Hcl 25 Mg Tablet) 25 mg PO Q8H PRN PRN Reason: Anxiety Last Admin: 03/26/24 23:10 Dose: 25 mg Documented By: YAYA Comments: anxiety Daptomycin 620 mg/ Sodium (Chloride) 62.4 mls @ 124.8 mls/hr IV Q48H [facility] Last Infusion: 03/26/24 13:31 Dose: Infused Documented By: EFRAIN Piperacillin Sod/Tazobactam (Sod 2.25 gm/ Sodium Chloride) 50 mls @ 100 mls/hr IV Q8H [facility] Last Infusion: 03/27/24 10:00 Dose: Infused Documented By: EFRAIN Insulin Human Lispro (Insulin Lispro 100 Unit/Ml 3 Ml Vial) 0 unit SUBCUT QIDACHS [facility]; Protocol Last Admin: 03/27/24 11:26 Dose: Not Given Documented By: EFRAIN Non-Admin Reason: No Insulin Coverage Levetiracetam (Levetiracetam 500 Mg Tablet) 500 mg PO BID [facility] Last Admin: 03/27/24 09:18 Dose: 500 mg Documented By: EFRAIN Magnesium Hydroxide (Milk Of Magnesia 30 Ml Oral.Susp) 30 ml PO DAILY PRN PRN Reason: Constipation Melatonin (Melatonin 3 Mg Tablet) 6 mg PO BEDTIME PRN PRN Reason: Insomnia Last Admin: 03/26/24 23:10 Dose: 6 mg Documented By: YAYA Comments: requested for sleep Naloxone HCl (Naloxone Hcl 0.4 Mg/Ml Vial) 0.4 mg IVPUSH Q2M PRN PRN Reason: per intraop request by provider Stop: 03/27/24 14:40 Nystatin (Nystatin Powder 15 Gm Bottle) 1 appl TOPICAL BID [facility]; Protocol Last Admin: 03/27/24 09:22 Dose: 1 appl Documented By: EFRAIN Ondansetron HCl (Ondansetron Hcl 4 Mg/2 Ml Vial) 4 mg IVPUSH Q6H PRN PRN Reason: Nausea and Vomiting Last Admin: 03/23/24 21:14 Dose: 4 mg Documented By: MICAH Oxycodone HCl (Oxycodone Hcl Immed Release 5 Mg Tablet) 5 mg PO Q6H PRN PRN Reason: Pain, Severe (Pain Scale 7-10) Phenytoin Sodium (Phenytoin Sodium Extended 100 Mg Capsule) 100 mg PO TID [facility] Last Admin: 03/27/24 09:19 Dose: 100 mg Documented By: EFRAIN Senna (Sennosides 8.6 Mg Tablet) 17.2 mg PO BEDTIME PRN PRN Reason: constipation Sodium Chloride (0.9 % Sodium Chloride Flush 3 Ml Syringe) 3 ml IVFLUSH QSHIFT [facility] Last Admin: 03/27/24 09:20 Dose: 3 ml Documented By: EFRAIN Sodium Zirconium Cyclosilicate (Sodium Zirconium Cyclosilicate 10 Gm Powd.Pack) 10 gm PO MOWEFR [facility] Last Admin: 03/25/24 14:59 Dose: 10 gm Documented By: EFRAIN Trazodone HCl (Trazodone Hcl 100 Mg Tablet) 100 mg PO BEDTIME PRN PRN Reason: Sleep Last Admin: 03/26/24 21:06 Dose: 100 mg Documented By: YAYA Comments: requested for sleep Valproic Acid (Valproic Acid 250 Mg Capsule) 1,000 mg PO BID [facility] Last Admin: 03/27/24 09:18 Dose: 1,000 mg Documented By: EFRAIN Vitamin D (Cholecalciferol (Vitamin D3) 25 Mcg Tablet) 50 mcg PO DAILY [facility] Last Admin: 03/27/24 09:18 Dose: 50 mcg Documented By: EFRAIN Labs 03/24/24 06:24 03/25/24 06:26 Labs: Laboratory Results - last 24 hr 03/26/24 03/26/24 03/27/24 16:19 20:52 07:41 POC Glucose 137 H 157 H 116 H 03/27/24 11:20 POC Glucose 109 Microbiology Microbiology Results: Microbiology 03/21/24 22:30 Blood Culture - Final Blood - Venous No growth after 5 days. 03/21/24 21:31 Blood Culture - Final Blood - Venous No growth after 5 days. Assessment and Plan (1) Pyelonephritis: Status: Acute (2) Gangrene of toe of left foot: Status: Acute (3) ESRD (end stage renal disease): Status: Acute Plan 68yo F with CKD5, DM2 with nephropathy, HTN, seizure disorder presenting with worsening L 5th toe gangrene admitted for osteomyelitis/toe gangrene,found to have severe metabolic acidosis due to uremia/renal failure, severe anemia severe metabolic acidosis, resolved MICHAEL/CKD5 progressed to ESRD - status post IV bicarbonate drip, temp HD catheter placed 03/22, last hemodialysis on 03/25, scheduled for tunneled catheter by IR today - losartan on hold -being followed by Nephrology diabetic gangrene/osteomyelitis - continue IV daptomycin + piperacillin-tazobactam 03/22-, BCx negative; ID consult pending - Gen Surg consulted plan is for amputation 5th toe on March 28 ,npo after midnight emphysematous pyelonephritis - noted on CT A/P done to r/o obstructive uropathy. Urology consulted and recommends medical management with antibiotics, urine culture uncollected, blood cultures negative continue antibiotics as above. severe anemia of CKD - FOBT negative. Transfused 3 unit pRBCs with appropriate response; continue ferrous sulfate, epo per Nephrology DM2 -stable blood sugar continue ana-dose lispro HTN - amlodipine seizure disorder -no seizure like activity noted, continue levetiracetam + valproate + phenytoin Abrasion right hip/thigh continue dressing as per wound nurse, for pain continue oxycodone 5 mg as needed, IV Dilaudid discontinued. Continue folic acid supplement for low folic acid VTE ppx - compression boots dispo - PT eval for safe disposition, was residing at home with 2 hour home health aide ambulating with walker short distances. In my clinical judgment, the patient requires continued inpatient hospitalization for the following reasons: IV ABX, HD initiation/placement, source control Quality Stroke Does the patient have a stroke diagnosis?: No VTE Prior VTE?: No VTE Risk Level:: Medical - moderate - high VTE Device Contraindication: N/A - Device Ordered VTE Drug Contraindication: N/A - Med Ordered
[2024-03-27] MEDS: fentaNYL citrate/PF 100 MCG/2 ML VIAL 50 MCG IVPUSH (13:43)
[2024-03-27] MEDS: fentaNYL citrate/PF 100 MCG/2 ML VIAL 25 MCG IVPUSH (13:53)
--- NOTE | 2024-03-27 14:08 | PCN2_ITS ---
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 Tip at cavoatrial junction. Ok for use. Right IJ sudeep removed.
--- NOTE | 2024-03-27 14:43 | MHC.CM.PN ---
Per rounds and EMR review, pt is not ready to DC, she is being treated with IV ABX and will begin on HD, and placement for outpt HD needs to be arranged. CM to follow for DC needs.
--- NOTE | 2024-03-27 15:11 | P.PNNP_ITS ---
Subjective Subjective Date of Service: 03/27/24 Principal diagnosis: Uremia and acidosis Interval history: Being followed for ESRD s/p permcath placement For HD today . Physical Exam 2 Vital Signs: Vital Signs: Last Vital Signs Temp 97.3 F 03/27/24 11:12 Pulse 75 03/27/24 14:05 Resp 17 03/27/24 14:05 BP 158/68 H 03/27/24 14:05 Pulse Ox 99 03/27/24 14:05 O2 Del Method Room Air 03/27/24 14:05 BMI result Body Mass Index 41.8 Const: Other: Gen: in no acute distress HEENT: sclera anicteric, moist mucus membranes Neck: supple, R IJ HD catheter Lungs: clear to auscultation bilaterally Heart: regular rate and rhythm, no murmurs Abd: soft, non-tender, non-distended, bowel sounds audible Ext: no edema, left leg pain with no redness or swelling Skin: warm/well-perfused, L 5th toe gangrenous Right posterior thigh/hip abrasion, no open wound Neuro: alert and oriented x3, no focal findings, decreased sensations both feet Psych: appropriate affect Objective Data Labs 03/24/24 06:24 03/25/24 06:26 Labs: Laboratory Results - last 24 hr 03/26/24 03/26/24 03/27/24 16:19 20:52 07:41 POC Glucose 137 H 157 H 116 H 03/27/24 11:20 POC Glucose 109 Microbiology Microbiology Results: Microbiology 03/21/24 22:30 Blood - Venous Blood Culture - Final No growth after 5 days. 03/21/24 21:31 Blood - Venous Blood Culture - Final No growth after 5 days. Procedures Date of Service Date of Service: 03/27/24 Assessment & Plan Assessment and plan (1) ESRD (end stage renal disease): Status: Acute (2) Metabolic acidosis: Status: Acute (3) Diabetic infection of left foot: Status: Acute (4) Anemia: Status: Acute (5) Kidney stone: Status: Acute Plan 68yo F with CKD5, DM2 with nephropathy, HTN, seizure disorder presenting with worsening L 5th toe gangrene admitted for osteomyelitis/toe gangrene,found to have severe metabolic acidosis due to uremia/renal failure, severe anemia 1. MICHAEL on adv CKD and now ESRD 2. Hemoaccess: temp RIJ convereted to tunnel catheter 3. Diabetic foot infection for amputation 4. Ques Emphsematous pyelo - on Zosyn 5. Anemia: s/p xfusion REC: exchange temp HD cath to Pcath done today HD today via PC Vol removal as tolerated K Per protocal ; In House will plan HD MWF For an Amputation I have arrange for outpt HD spot- [facility] HD unit TTS 1 st shift - 5. 45 AM after D/c If Pt needs rehab - Strongly consider [facility] Please notify us 24 hrs before d/c Will follow w team D/w Dr. Etsrada Time Spent With Patient Time: Total time managing care of this patient today ____ minutes. Progress Note: Quality Stroke Does the patient have a stroke diagnosis?: No
[2024-03-27 16:03] LABS: Glucose, Whole Blood 102 mg/dL (60-115)
[2024-03-27 20:35] LABS: Glucose, Whole Blood 107 mg/dL (60-115)
[2024-03-27] MEDS: traZODone HCL 100 MG TABLET PO (21:10)
[2024-03-27] MEDS: Melatonin 3 MG TABLET 6 MG PO (21:10)
[2024-03-27] MEDS: hydrOXYzine HCL 25 MG TABLET PO (21:11)
[2024-03-28] VITALS (15 sets, daily range): BP systolic 104–164; BP diastolic 34–96; PULSE 71–111; RESP 14–20; TEMP 36.2–37.1; O2SAT 91–100
[2024-03-28] MEDS: oxyCODONE HCl Immed Release 5 MG TABLET PO ×2 (00:21→08:58)
[2024-03-28] MEDS: LORazepam 1 MG TABLET PO (00:52)
[2024-03-28] MEDS: Piperacillin Sodium/Tazobactam 2.25 GM in 0.9 % Sodium Chloride 50 ML IV ×3 (05:05→21:55)
[2024-03-28 07:18] LABS: Hematocrit 21.2 % (37.0-47.0); Hemoglobin 7.2 g/dl (12.0-16.0); Mean Corpuscular Hemoglobin 30.6 pg (27.0-33.0); Mean Corpuscular Volume 90.2 fL (80.0-98.0); PLT CLUMP 1; Red Blood Count 2.35 X10*6/uL (4.20-5.50); Red Cell Distribution Width 19.6 % (11.0-16.0)
[2024-03-28 07:20] LABS: White Blood Count 13.1 X10*3/uL (4.8-10.8)
[2024-03-28 07:30] LABS: Anion Gap 14 (12-20); Blood Urea Nitrogen 20 mg/dL (9-16); Calcium 7.9 mg/dL (8.4-10.2); Carbon Dioxide 26 mmol/L (22-29); Chloride 101 mmol/L (96-108); Creatinine Clr Calc Pharmacy 20.6; Estimated Glomerular Filt Rate 15; Glucose Random 105 mg/dL (60-115); Iron 17 mcg/dL (30-160); Percent Iron Saturation 13 % (15-50); Sodium 138 mmol/L (135-145); Total Iron Binding Capacity 136 mcg/dL (228-428); Unsaturated Iron Binding 119 ug/dL
[2024-03-28 07:36] LABS: Glucose, Whole Blood 113 mg/dL (60-115)
[2024-03-28 07:45] LABS: Ferritin 726 ng/mL (10-250)
[2024-03-28] MEDS: Phenytoin Sodium Extended 100 MG CAPSULE PO ×3 (08:52→20:58)
[2024-03-28] MEDS: Valproic Acid 250 MG CAPSULE 1000 MG PO ×2 (08:52→20:58)
[2024-03-28] MEDS: amLODIPine Besylate 10 MG TABLET PO (08:52)
[2024-03-28] MEDS: levETIRAcetam 500 MG TABLET PO ×2 (08:52→20:58)
[2024-03-28] MEDS: Ferrous Sulfate 324 MG TABLET.DR PO (08:52)
[2024-03-28] MEDS: Nystatin Powder 15 GM BOTTLE 1 APPL TOPICAL ×2 (08:53→22:29)
[2024-03-28] MEDS: 0.9 % Sodium Chloride Flush 3 ML SYRINGE IVFLUSH ×2 (08:53→17:10)
[2024-03-28 11:22] LABS: Glucose, Whole Blood 128 mg/dL (60-115)
--- NOTE | 2024-03-28 13:20 | PC.NURSE ---
anesthesia made aware of h&h. new type and screen done today per request but not transfused today.
[2024-03-28 13:26] LABS: Glucose, Whole Blood 111 mg/dL (60-115)
--- NOTE | 2024-03-28 13:43 | MHC.SHP ---
Pre-Procedural Eval Section A - 24 Hr Update-Section A only Date of Service: 03/28/24 The patient is an INPATIENT: Yes Changes since office visit: No Cold of Flu in the past 2 weeks, No New Medical Problems, No Changes in Medication and No Patient answered all questions The patient has been examined within 24 hours of the surgical procedure. The History & Physical has been completed within 30 days and I have reviewed it.: Yes Section B - Complete if H&P > 30 days Chief Complaint: diabetic foot ulcer Allergies: Allergies Allergy/AdvReac Type Severity Reaction Status Date / Time Egg Derived Allergy Unknown Verified 03/21/24 18:41 Plan I have reviewed the history and physical and performed a pertinent physical examination on my patient. No changes have occurred unless specified. Time Spent With Patient Time: Total time managing care of this patient today ____ minutes.
--- NOTE | 2024-03-28 14:14 | HO.ANESPROP2 ---
[facility] Active Problems Active Problems: All Active Problems Pyelonephritis (Acute) Gangrene of toe of left foot (Acute) ESRD (end stage renal disease) (Acute) Metabolic acidosis (Acute) Diabetic infection of left foot (Acute) Anemia (Acute) Acute on chronic renal failure (Acute) Osteomyelitis (Acute) Recurrent seizures (Acute) Abnormal soft tissue x-ray of chest (Acute) Kidney stone (Acute) Past Medical History Medical History ESRD (end stage renal disease) Generalized seizure Acute kidney injury CKD (chronic kidney disease) stage 3, GFR 30-59 ml/min CHF (congestive heart failure) Anemia Brain tumor (benign) Lower extremity edema Pneumonia Asthma Pulmonary nodule HLD (hyperlipidemia) Seizure Acute hypoxemic respiratory failure due to COVID-19 COVID-19 Kidney stone Depression Gastritis Diabetes Family History Family History Father CAD (coronary artery disease) Brother Lung cancer Sister Kidney stone Family history of problems with anesthesia: No Surgical History Surgical History H/O lithotripsy H/O ureteroscopy H/O cystoscopy S/P ureteral stent placement History of cholecystectomy H/O hernia repair History of Problems with Anesthesia: No Social History Social History Household Members: Family Housing: Apartment Do you presently have visiting nurse or other home services: No Alcohol intake: former Comment: pt sleeping at this time Patient Tobacco Use Status: Never used Tobacco e-Cigarette/Vaping Use: Never Used Advance Directives Date on File: 12/20/21 service: No Current occupational status: unemployed Meds Allergies Allergy/AdvReac Type Severity Reaction Status Date / Time Egg Derived Allergy Unknown Verified 03/21/24 18:41 Active Medications: Current Medications Acetaminophen (Acetaminophen 325 Mg Tablet) 650 mg PO Q6H PRN PRN Reason: Pain, Mild 1-3,fever,headache Last Admin: 03/26/24 03:59 Dose: 650 mg Amlodipine Besylate (Amlodipine Besylate 10 Mg Tablet) 10 mg PO DAILY KATHERINE; Protocol Last Admin: 03/28/24 08:52 Dose: 10 mg Aspirin (Aspirin Enteric Coated 81 Mg Tablet.) 81 mg PO DAILY [facility] Last Admin: 03/28/24 08:53 Dose: Not Given Calcium Carbonate (Calcium Carbonate 750 Mg Tab.Chew) 750 mg PO Q4H PRN PRN Reason: Heartburn Dextrose (Dextrose 50 % 25 Gm/50 Ml Syringe) 25 gm IVPUSH Q15M PRN; Protocol PRN Reason: per Hypoglycemia Standing Ord. Ferrous Sulfate (Ferrous Sulfate 324 Mg Tablet.) 324 mg PO DAILY [facility] Last Admin: 03/28/24 08:52 Dose: 324 mg Folic Acid (Folic Acid 1 Mg Tablet) 1 mg PO DAILY [facility] Last Admin: 03/28/24 08:53 Dose: Not Given Glucose (Glucose Gel 15 Gm Gel..Gram.) 15 gm PO Q15M PRN; Protocol PRN Reason: per Hypoglycemia Standing Ord. Hydroxyzine HCl (Hydroxyzine Hcl 25 Mg Tablet) 25 mg PO Q8H PRN PRN Reason: Anxiety Last Admin: 03/27/24 21:11 Dose: 25 mg Daptomycin 620 mg/ Sodium (Chloride) 62.4 mls @ 124.8 mls/hr IV Q48H [facility] Last Infusion: 03/26/24 13:31 Dose: Infused Piperacillin Sod/Tazobactam (Sod 2.25 gm/ Sodium Chloride) 50 mls @ 100 mls/hr IV Q8H [facility] Last Infusion: 03/28/24 06:01 Dose: Infused Insulin Human Lispro (Insulin Lispro 100 Unit/Ml 3 Ml Vial) 0 unit SUBCUT QIDACHS [facility]; Protocol Last Admin: 03/28/24 12:38 Dose: Not Given Levetiracetam (Levetiracetam 500 Mg Tablet) 500 mg PO BID [facility] Last Admin: 03/28/24 08:52 Dose: 500 mg Magnesium Hydroxide (Milk Of Magnesia 30 Ml Oral.Susp) 30 ml PO DAILY PRN PRN Reason: Constipation Melatonin (Melatonin 3 Mg Tablet) 6 mg PO BEDTIME PRN PRN Reason: Insomnia Last Admin: 03/27/24 21:10 Dose: 6 mg Nystatin (Nystatin Powder 15 Gm Bottle) 1 appl TOPICAL BID [facility]; Protocol Last Admin: 03/28/24 08:53 Dose: 1 appl Ondansetron HCl (Ondansetron Hcl 4 Mg/2 Ml Vial) 4 mg IVPUSH Q6H PRN PRN Reason: Nausea and Vomiting Last Admin: 03/23/24 21:14 Dose: 4 mg Oxycodone HCl (Oxycodone Hcl Immed Release 5 Mg Tablet) 5 mg PO Q6H PRN PRN Reason: Pain, Severe (Pain Scale 7-10) Last Admin: 03/28/24 08:58 Dose: 5 mg Phenytoin Sodium (Phenytoin Sodium Extended 100 Mg Capsule) 100 mg PO TID [facility] Last Admin: 03/28/24 08:52 Dose: 100 mg Senna (Sennosides 8.6 Mg Tablet) 17.2 mg PO BEDTIME PRN PRN Reason: constipation Sodium Chloride (0.9 % Sodium Chloride Flush 3 Ml Syringe) 3 ml IVFLUSH QSHIFT [facility] Last Admin: 03/28/24 08:53 Dose: 3 ml Sodium Zirconium Cyclosilicate (Sodium Zirconium Cyclosilicate 10 Gm Powd.Pack) 10 gm PO MOWEFR [facility] Last Admin: 03/27/24 14:23 Dose: Not Given Trazodone HCl (Trazodone Hcl 100 Mg Tablet) 100 mg PO BEDTIME PRN PRN Reason: Sleep Last Admin: 03/27/24 21:10 Dose: 100 mg Valproic Acid (Valproic Acid 250 Mg Capsule) 1,000 mg PO BID [facility] Last Admin: 03/28/24 08:52 Dose: 1,000 mg Vitamin D (Cholecalciferol (Vitamin D3) 25 Mcg Tablet) 50 mcg PO DAILY [facility] Last Admin: 03/28/24 08:53 Dose: Not Given Home Medications ?Medication ?Instructions ?Recorded ?Confirmed ?Last Taken ?Type blood sugar diagnostic (FreeStyle 03/28/20 09/09/22 Unknown History Lite Strips) blood-glucose meter (FreeStyle 03/28/20 09/09/22 Unknown History [place] Lite kit) lancets 28 gauge (FreeStyle 03/28/20 09/09/22 Unknown History Lancets) omeprazole 40 mg capsule,delayed 40 mg PO BID@0630,1630 10/02/21 03/22/24 03/21/24 History release blood pressure test kit-large #1 ea 10/12/21 09/09/22 Unknown History atorvastatin 80 mg tablet 80 mg PO DAILY 12/20/21 03/22/24 03/21/24 History nebulizers 01/20/22 09/09/22 Unknown History amlodipine 10 mg tablet 10 mg PO DAILY 05/29/22 03/22/24 03/21/24 History aspirin 81 mg tablet,delayed 81 mg PO DAILY 05/29/22 03/22/24 03/21/24 History release lancets 33 gauge (TRUEplus Lancets) #100 ea 06/07/22 09/09/22 Unknown History trazodone 50 mg tablet 100 mg PO BEDTIME PRN Sleep 06/07/22 03/22/24 10/26/23 History cholecalciferol (vitamin D3) 50 50 mcg PO DAILY 11/24/22 03/22/24 03/21/24 History mcg (2,000 unit) tablet ferrous gluconate 324 mg (38 mg 324 mg PO DAILY 11/24/22 03/22/24 03/21/24 History iron) tablet furosemide 40 mg tablet 80 mg PO BID 11/24/22 03/22/24 03/21/24 History insulin aspart 6 - 8 unit subcut TID 10/27/23 03/22/24 03/21/24 History (niacinamide)(U-100) 100 unit/mL(3 mL) subcutaneous pen (Fiasp FlexTouch U-100 Insulin) acetaminophen 650 mg 650 mg PO Q8H PRN mild pain 03/22/24 03/22/24 Unknown History tablet,extended release diclofenac sodium 1 % topical gel 2 g topical BEDTIME PRN Pain 03/22/24 03/22/24 03/21/24 History losartan 100 mg tablet 100 mg PO BID 03/22/24 03/22/24 03/21/24 History valproic acid 250 mg capsule 1,000 mg PO BID 03/22/24 03/22/24 03/21/24 History Exam Height,Weight and Vital Signs: Height 5 ft 3 in Weight 107 kg Last Vital Signs Temp 98.6 F 03/28/24 13:12 Pulse 74 03/28/24 13:12 Resp 16 03/28/24 13:12 BP 138/88 03/28/24 13:12 Pulse Ox 93 03/28/24 13:12 O2 Del Method Room Air 03/28/24 13:12 Pertinent Lab Results Pertinent Lab Results: Laboratory Tests 03/21/24 03/21/24 03/21/24 21:31 22:30 22:46 WBC 15.9 H RBC 1.79 L D Hgb 5.7 L* D Hct 18.1 L* D MCV 101.1 H MCH 31.8 MCHC 31.5 RDW 13.2 Plt Count TNP MPV 12.2 Immature Gran % (Auto) 3.5 H Neut % (Auto) 83.7 H Lymph % (Auto) 6.4 L [place] % (Auto) 5.0 Eos % (Auto) 1.2 Baso % (Auto) 0.2 Lymph # (Auto) 1.0 L [place] # (Auto) 0.8 Eos # (Auto) 0.2 Baso # (Auto) 0.0 Abs Immat Gran (auto) 0.56 H Absolute Neuts (auto) 13.3 H Absolute Nucleated RBC 0.000 Nucleated RBC % (auto) 0.0 ESR > 140 H PT INR APTT VBG pH VBG pCO2 VBG pO2 VBG HCO3 VBG O2 Saturation VBG Base Excess Sodium 136 Potassium 5.1 D Chloride 116 H Carbon Dioxide 7 L* D Anion Gap 18 BUN 120 H Creatinine 8.20 H* Estim Creat Clear Calc 6.5 Estimated GFR 5 POC Glucose Random Glucose 142 H Estimat Average Glucose Hemoglobin A1c % Lactic Acid 0.8 Calcium 7.1 L D Magnesium Iron TIBC % Saturation Unsat Iron Binding Ferritin Total Bilirubin 0.1 Direct Bilirubin < 0.2 AST 21 ALT 7 Alkaline Phosphatase 134 H C-Reactive Protein 9.58 H B-Natriuretic Peptide 142 H Total Protein 6.8 Albumin 2.8 L Vitamin B12 Folate Stool Occult Blood NEGATIVE Hep Bs Antigen Hep Bs Antibody Hep B Core Total Ab Blood Type O Positive Antibody Screen NEGATIVE Crossmatch See Detail 03/22/24 03/22/24 03/22/24 04:59 07:42 11:33 WBC 16.7 H RBC 2.08 L Hgb 6.7 L* Hct 21.2 L MCV 101.9 H MCH 32.2 MCHC 31.6 RDW 13.4 Plt Count 107 L D MPV 11.7 Immature Gran % (Auto) 3.8 H Neut % (Auto) 79.7 H Lymph % (Auto) 7.0 L [place] % (Auto) 7.8 Eos % (Auto) 1.5 Baso % (Auto) 0.2 Lymph # (Auto) 1.2 [place] # (Auto) 1.3 H Eos # (Auto) 0.3 Baso # (Auto) 0.0 Abs Immat Gran (auto) 0.64 H Absolute Neuts (auto) 13.3 H Absolute Nucleated RBC 0.000 Nucleated RBC % (auto) 0.0 ESR PT INR APTT VBG pH VBG pCO2 VBG pO2 VBG HCO3 VBG O2 Saturation VBG Base Excess Sodium 138 140 Potassium 4.5 5.0 Chloride 114 H 118 H Carbon Dioxide 8 L* 9 L* Anion Gap 21 H 18 BUN 120 H 115 H Creatinine 7.52 H* 7.37 H* Estim Creat Clear Calc 7.1 7.2 Estimated GFR 5 6 POC Glucose 136 H Random Glucose 145 H 120 H Estimat Average Glucose 105 Hemoglobin A1c % 5.3 Lactic Acid Calcium 7.1 L 6.8 L Magnesium 1.8 Iron TIBC % Saturation Unsat Iron Binding Ferritin Total Bilirubin Direct Bilirubin AST ALT Alkaline Phosphatase C-Reactive Protein B-Natriuretic Peptide Total Protein Albumin Vitamin B12 628 Folate 2.3 L Stool Occult Blood Hep Bs Antigen Hep Bs Antibody Hep B Core Total Ab Blood Type Antibody Screen Crossmatch 03/22/24 03/22/24 03/22/24 11:50 13:12 14:58 WBC 16.4 H RBC 2.83 L D Hgb 8.4 L D Hct 26.3 L D MCV 92.9 D MCH 29.7 MCHC 31.9 RDW 20.0 H Plt Count 200 D MPV Not Reportable Immature Gran % (Auto) Neut % (Auto) Lymph % (Auto) [place] % (Auto) Eos % (Auto) Baso % (Auto) Lymph # (Auto) [place] # (Auto) Eos # (Auto) Baso # (Auto) Abs Immat Gran (auto) Absolute Neuts (auto) Absolute Nucleated RBC 0.000 Nucleated RBC % (auto) 0.0 ESR PT 11.0 INR 0.9 APTT 31.1 VBG pH 7.05 L* VBG pCO2 27 VBG pO2 70 VBG HCO3 8 L VBG O2 Saturation 91.0 VBG Base Excess -20.8 Sodium 139 Potassium 4.7 Chloride 117 H Carbon Dioxide 8 L* Anion Gap 19 BUN 120 H Creatinine 7.21 H* Estim Creat Clear Calc 7.4 Estimated GFR 6 POC Glucose 88 Random Glucose 118 H Estimat Average Glucose Hemoglobin A1c % Lactic Acid Calcium 6.8 L Magnesium Iron TIBC % Saturation Unsat Iron Binding Ferritin Total Bilirubin Direct Bilirubin AST ALT Alkaline Phosphatase C-Reactive Protein B-Natriuretic Peptide Total Protein Albumin Vitamin B12 Folate Stool Occult Blood Hep Bs Antigen Negative Hep Bs Antibody NONREACTIVE Hep B Core Total Ab Nonreactive Blood Type Antibody Screen Crossmatch 03/22/24 03/23/24 03/23/24 21:09 06:02 07:14 WBC 13.3 H RBC 2.64 L Hgb 8.0 L Hct 23.2 L MCV 87.9 D MCH 30.3 MCHC 34.5 RDW 19.7 H Plt Count TNP MPV Not Reportable Immature Gran % (Auto) Neut % (Auto) Lymph % (Auto) [place] % (Auto) Eos % (Auto) Baso % (Auto) Lymph # (Auto) [place] # (Auto) Eos # (Auto) Baso # (Auto) Abs Immat Gran (auto) Absolute Neuts (auto) Absolute Nucleated RBC 0.020 H Nucleated RBC % (auto) 0.2 ESR PT INR APTT VBG pH VBG pCO2 VBG pO2 VBG HCO3 VBG O2 Saturation VBG Base Excess Sodium 142 Potassium 3.3 D Chloride 107 Carbon Dioxide 19 L Anion Gap 19 BUN 69 H Creatinine 4.68 H* Estim Creat Clear Calc 13.6 Estimated GFR 9 POC Glucose 116 H 150 H Random Glucose 105 Estimat Average Glucose Hemoglobin A1c % Lactic Acid Calcium 6.8 L Magnesium Iron TIBC % Saturation Unsat Iron Binding Ferritin Total Bilirubin Direct Bilirubin AST ALT Alkaline Phosphatase C-Reactive Protein B-Natriuretic Peptide Total Protein Albumin Vitamin B12 Folate Stool Occult Blood Hep Bs Antigen Hep Bs Antibody Hep B Core Total Ab Blood Type Antibody Screen Crossmatch 03/23/24 03/23/24 03/23/24 11:36 16:01 20:51 WBC RBC Hgb Hct MCV MCH MCHC RDW Plt Count MPV Immature Gran % (Auto) Neut % (Auto) Lymph % (Auto) [place] % (Auto) Eos % (Auto) Baso % (Auto) Lymph # (Auto) [place] # (Auto) Eos # (Auto) Baso # (Auto) Abs Immat Gran (auto) Absolute Neuts (auto) Absolute Nucleated RBC Nucleated RBC % (auto) ESR PT INR APTT VBG pH VBG pCO2 VBG pO2 VBG HCO3 VBG O2 Saturation VBG Base Excess Sodium Potassium Chloride Carbon Dioxide Anion Gap BUN Creatinine Estim Creat Clear Calc Estimated GFR POC Glucose 126 H 112 154 H Random Glucose Estimat Average Glucose Hemoglobin A1c % Lactic Acid Calcium Magnesium Iron TIBC % Saturation Unsat Iron Binding Ferritin Total Bilirubin Direct Bilirubin AST ALT Alkaline Phosphatase C-Reactive Protein B-Natriuretic Peptide Total Protein Albumin Vitamin B12 Folate Stool Occult Blood Hep Bs Antigen Hep Bs Antibody Hep B Core Total Ab Blood Type Antibody Screen Crossmatch 03/24/24 03/24/24 03/24/24 06:24 07:16 11:25 WBC 12.0 H RBC 2.65 L Hgb 8.1 L Hct 23.7 L MCV 89.4 MCH 30.6 MCHC 34.2 RDW 19.6 H Plt Count TNP MPV 12.3 Immature Gran % (Auto) Neut % (Auto) Lymph % (Auto) [place] % (Auto) Eos % (Auto) Baso % (Auto) Lymph # (Auto) [place] # (Auto) Eos # (Auto) Baso # (Auto) Abs Immat Gran (auto) Absolute Neuts (auto) Absolute Nucleated RBC 0.000 Nucleated RBC % (auto) 0.0 ESR PT INR APTT VBG pH VBG pCO2 VBG pO2 VBG HCO3 VBG O2 Saturation VBG Base Excess Sodium 139 Potassium 3.3 Chloride 103 Carbon Dioxide 24 Anion Gap 15 BUN 39 H Creatinine 3.42 H Estim Creat Clear Calc 18.7 Estimated GFR 13 POC Glucose 95 148 H Random Glucose 89 Estimat Average Glucose Hemoglobin A1c % Lactic Acid Calcium 7.1 L Magnesium Iron TIBC % Saturation Unsat Iron Binding Ferritin Total Bilirubin Direct Bilirubin AST ALT Alkaline Phosphatase C-Reactive Protein B-Natriuretic Peptide Total Protein Albumin Vitamin B12 Folate Stool Occult Blood Hep Bs Antigen Hep Bs Antibody Hep B Core Total Ab Blood Type Antibody Screen Crossmatch 03/24/24 03/24/24 03/25/24 15:21 20:30 06:26 WBC RBC Hgb Hct MCV MCH MCHC RDW Plt Count MPV Immature Gran % (Auto) Neut % (Auto) Lymph % (Auto) [place] % (Auto) Eos % (Auto) Baso % (Auto) Lymph # (Auto) [place] # (Auto) Eos # (Auto) Baso # (Auto) Abs Immat Gran (auto) Absolute Neuts (auto) Absolute Nucleated RBC Nucleated RBC % (auto) ESR PT INR APTT VBG pH VBG pCO2 VBG pO2 VBG HCO3 VBG O2 Saturation VBG Base Excess Sodium 139 Potassium 3.4 Chloride 104 Carbon Dioxide 22 Anion Gap 16 BUN 49 H Creatinine 4.60 H* Estim Creat Clear Calc 13.9 Estimated GFR 10 POC Glucose 176 H 122 H Random Glucose 92 Estimat Average Glucose Hemoglobin A1c % Lactic Acid Calcium 6.6 L D Magnesium Iron TIBC % Saturation Unsat Iron Binding Ferritin Total Bilirubin Direct Bilirubin AST ALT Alkaline Phosphatase C-Reactive Protein B-Natriuretic Peptide Total Protein Albumin Vitamin B12 Folate Stool Occult Blood Hep Bs Antigen Hep Bs Antibody Hep B Core Total Ab Blood Type Antibody Screen Crossmatch 03/25/24 03/25/24 03/25/24 07:28 11:01 16:22 WBC RBC Hgb Hct MCV MCH MCHC RDW Plt Count MPV Immature Gran % (Auto) Neut % (Auto) Lymph % (Auto) [place] % (Auto) Eos % (Auto) Baso % (Auto) Lymph # (Auto) [place] # (Auto) Eos # (Auto) Baso # (Auto) Abs Immat Gran (auto) Absolute Neuts (auto) Absolute Nucleated RBC Nucleated RBC % (auto) ESR PT INR APTT VBG pH VBG pCO2 VBG pO2 VBG HCO3 VBG O2 Saturation VBG Base Excess Sodium Potassium Chloride Carbon Dioxide Anion Gap BUN Creatinine Estim Creat Clear Calc Estimated GFR POC Glucose 92 97 97 Random Glucose Estimat Average Glucose Hemoglobin A1c % Lactic Acid Calcium Magnesium Iron TIBC % Saturation Unsat Iron Binding Ferritin Total Bilirubin Direct Bilirubin AST ALT Alkaline Phosphatase C-Reactive Protein B-Natriuretic Peptide Total Protein Albumin Vitamin B12 Folate Stool Occult Blood Hep Bs Antigen Hep Bs Antibody Hep B Core Total Ab Blood Type Antibody Screen Crossmatch 03/25/24 03/26/24 03/26/24 21:11 07:33 11:23 WBC RBC Hgb Hct MCV MCH MCHC RDW Plt Count MPV Immature Gran % (Auto) Neut % (Auto) Lymph % (Auto) [place] % (Auto) Eos % (Auto) Baso % (Auto) Lymph # (Auto) [place] # (Auto) Eos # (Auto) Baso # (Auto) Abs Immat Gran (auto) Absolute Neuts (auto) Absolute Nucleated RBC Nucleated RBC % (auto) ESR PT INR APTT VBG pH VBG pCO2 VBG pO2 VBG HCO3 VBG O2 Saturation VBG Base Excess Sodium Potassium Chloride Carbon Dioxide Anion Gap BUN Creatinine Estim Creat Clear Calc Estimated GFR POC Glucose 214 H 109 100 Random Glucose Estimat Average Glucose Hemoglobin A1c % Lactic Acid Calcium Magnesium Iron TIBC % Saturation Unsat Iron Binding Ferritin Total Bilirubin Direct Bilirubin AST ALT Alkaline Phosphatase C-Reactive Protein B-Natriuretic Peptide Total Protein Albumin Vitamin B12 Folate Stool Occult Blood Hep Bs Antigen Hep Bs Antibody Hep B Core Total Ab Blood Type Antibody Screen Crossmatch 03/26/24 03/26/24 03/27/24 16:19 20:52 07:41 WBC RBC Hgb Hct MCV MCH MCHC RDW Plt Count MPV Immature Gran % (Auto) Neut % (Auto) Lymph % (Auto) [place] % (Auto) Eos % (Auto) Baso % (Auto) Lymph # (Auto) [place] # (Auto) Eos # (Auto) Baso # (Auto) Abs Immat Gran (auto) Absolute Neuts (auto) Absolute Nucleated RBC Nucleated RBC % (auto) ESR PT INR APTT VBG pH VBG pCO2 VBG pO2 VBG HCO3 VBG O2 Saturation VBG Base Excess Sodium Potassium Chloride Carbon Dioxide Anion Gap BUN Creatinine Estim Creat Clear Calc Estimated GFR POC Glucose 137 H 157 H 116 H Random Glucose Estimat Average Glucose Hemoglobin A1c % Lactic Acid Calcium Magnesium Iron TIBC % Saturation Unsat Iron Binding Ferritin Total Bilirubin Direct Bilirubin AST ALT Alkaline Phosphatase C-Reactive Protein B-Natriuretic Peptide Total Protein Albumin Vitamin B12 Folate Stool Occult Blood Hep Bs Antigen Hep Bs Antibody Hep B Core Total Ab Blood Type Antibody Screen Crossmatch 03/27/24 03/27/24 03/27/24 11:20 15:58 20:24 WBC RBC Hgb Hct MCV MCH MCHC RDW Plt Count MPV Immature Gran % (Auto) Neut % (Auto) Lymph % (Auto) [place] % (Auto) Eos % (Auto) Baso % (Auto) Lymph # (Auto) [place] # (Auto) Eos # (Auto) Baso # (Auto) Abs Immat Gran (auto) Absolute Neuts (auto) Absolute Nucleated RBC Nucleated RBC % (auto) ESR PT INR APTT VBG pH VBG pCO2 VBG pO2 VBG HCO3 VBG O2 Saturation VBG Base Excess Sodium Potassium Chloride Carbon Dioxide Anion Gap BUN Creatinine Estim Creat Clear Calc Estimated GFR POC Glucose 109 102 107 Random Glucose Estimat Average Glucose Hemoglobin A1c % Lactic Acid Calcium Magnesium Iron TIBC % Saturation Unsat Iron Binding Ferritin Total Bilirubin Direct Bilirubin AST ALT Alkaline Phosphatase C-Reactive Protein B-Natriuretic Peptide Total Protein Albumin Vitamin B12 Folate Stool Occult Blood Hep Bs Antigen Hep Bs Antibody Hep B Core Total Ab Blood Type Antibody Screen Crossmatch 03/28/24 03/28/24 03/28/24 06:55 07:27 10:33 WBC 13.1 H RBC 2.35 L Hgb 7.2 L Hct 21.2 L MCV 90.2 MCH 30.6 MCHC 34.0 RDW 19.6 H Plt Count Not Reportable MPV Not Reportable Immature Gran % (Auto) Neut % (Auto) Lymph % (Auto) [place] % (Auto) Eos % (Auto) Baso % (Auto) Lymph # (Auto) [place] # (Auto) Eos # (Auto) Baso # (Auto) Abs Immat Gran (auto) Absolute Neuts (auto) Absolute Nucleated RBC 0.000 Nucleated RBC % (auto) 0.0 ESR PT INR APTT VBG pH VBG pCO2 VBG pO2 VBG HCO3 VBG O2 Saturation VBG Base Excess Sodium 138 Potassium 3.0 L Chloride 101 Carbon Dioxide 26 Anion Gap 14 BUN 20 H Creatinine 3.11 H Estim Creat Clear Calc 20.6 Estimated GFR 15 POC Glucose 113 Random Glucose 105 Estimat Average Glucose Hemoglobin A1c % Lactic Acid Calcium 7.9 L D Magnesium Iron 17 L TIBC 136 L % Saturation 13 L Unsat Iron Binding 119 Ferritin 726 H Total Bilirubin Direct Bilirubin AST ALT Alkaline Phosphatase C-Reactive Protein B-Natriuretic Peptide Total Protein Albumin Vitamin B12 Folate Stool Occult Blood Hep Bs Antigen Hep Bs Antibody Hep B Core Total Ab Blood Type O Positive Antibody Screen NEGATIVE Crossmatch 03/28/24 03/28/24 11:17 13:22 WBC RBC Hgb Hct MCV MCH MCHC RDW Plt Count MPV Immature Gran % (Auto) Neut % (Auto) Lymph % (Auto) [place] % (Auto) Eos % (Auto) Baso % (Auto) Lymph # (Auto) [place] # (Auto) Eos # (Auto) Baso # (Auto) Abs Immat Gran (auto) Absolute Neuts (auto) Absolute Nucleated RBC Nucleated RBC % (auto) ESR PT INR APTT VBG pH VBG pCO2 VBG pO2 VBG HCO3 VBG O2 Saturation VBG Base Excess Sodium Potassium Chloride Carbon Dioxide Anion Gap BUN Creatinine Estim Creat Clear Calc Estimated GFR POC Glucose 128 H 111 Random Glucose Estimat Average Glucose Hemoglobin A1c % Lactic Acid Calcium Magnesium Iron TIBC % Saturation Unsat Iron Binding Ferritin Total Bilirubin Direct Bilirubin AST ALT Alkaline Phosphatase C-Reactive Protein B-Natriuretic Peptide Total Protein Albumin Vitamin B12 Folate Stool Occult Blood Hep Bs Antigen Hep Bs Antibody Hep B Core Total Ab Blood Type Antibody Screen Crossmatch Airway Mallampati Class: III TM Dist: >3cm Neck ROM: Full Denture: Upper and Lower Assessment and Plan Assessment Anesthesia Assessment: Anesthesia Plan Discussed and Chart Reviewed Final Anesthetic Review Family History of Problems with Anesthesia: No History of Problems with Anesthesia: No NPO: Yes ASA Class: IV Final Preanesthetic Review: No Changes in Pt Med Stat, Meds/Allgs Chart Reviewed, Consent Obtained/Reviewed, Anes Risks/Benef Reviewed and DNR Form (If Appl.) Anesthetic Plan Anesthetic Plan: GA Disposition: Standard PACU
--- NOTE | 2024-03-28 14:21 | P.PNNP_ITS ---
Subjective Subjective Date of Service: 03/28/24 Principal diagnosis: Uremia and acidosis Interval history: Being followed for ESRD s/p permcath placement pt seen in post op pacu after toe amp . Physical Exam 2 Vital Signs: Vital Signs: Last Vital Signs Temp 98.6 F 03/28/24 13:12 Pulse 74 03/28/24 13:12 Resp 16 03/28/24 13:12 BP 138/88 03/28/24 13:12 Pulse Ox 93 03/28/24 13:12 O2 Del Method Room Air 03/28/24 13:12 BMI result Body Mass Index 41.8 cvs: s1s2 RS; cta ABd; soft Objective Data Labs 03/28/24 06:55 03/28/24 06:55 Labs: Laboratory Results - last 24 hr 03/27/24 03/27/24 03/28/24 15:58 20:24 06:55 WBC 13.1 H RBC 2.35 L Hgb 7.2 L Hct 21.2 L MCV 90.2 MCH 30.6 MCHC 34.0 RDW 19.6 H Plt Count Not Reportable MPV Not Reportable Absolute Nucleated RBC 0.000 Nucleated RBC % (auto) 0.0 Sodium 138 Potassium 3.0 L Chloride 101 Carbon Dioxide 26 Anion Gap 14 BUN 20 H Creatinine 3.11 H Estim Creat Clear Calc 20.6 Estimated GFR 15 POC Glucose 102 107 Random Glucose 105 Calcium 7.9 L D Iron 17 L TIBC 136 L % Saturation 13 L Unsat Iron Binding 119 Ferritin 726 H Blood Type Antibody Screen 03/28/24 03/28/24 03/28/24 07:27 10:33 11:17 WBC RBC Hgb Hct MCV MCH MCHC RDW Plt Count MPV Absolute Nucleated RBC Nucleated RBC % (auto) Sodium Potassium Chloride Carbon Dioxide Anion Gap BUN Creatinine Estim Creat Clear Calc Estimated GFR POC Glucose 113 128 H Random Glucose Calcium Iron TIBC % Saturation Unsat Iron Binding Ferritin Blood Type O Positive Antibody Screen NEGATIVE 03/28/24 13:22 WBC RBC Hgb Hct MCV MCH MCHC RDW Plt Count MPV Absolute Nucleated RBC Nucleated RBC % (auto) Sodium Potassium Chloride Carbon Dioxide Anion Gap BUN Creatinine Estim Creat Clear Calc Estimated GFR POC Glucose 111 Random Glucose Calcium Iron TIBC % Saturation Unsat Iron Binding Ferritin Blood Type Antibody Screen Microbiology Microbiology Results: Microbiology 03/21/24 22:30 Blood - Venous Blood Culture - Final No growth after 5 days. 03/21/24 21:31 Blood - Venous Blood Culture - Final No growth after 5 days. Procedures Date of Service Date of Service: 03/28/24 Assessment & Plan Assessment and plan (1) ESRD (end stage renal disease): Status: Acute (2) Gangrene of toe of left foot: Status: Acute Plan 68yo F with CKD5, DM2 with nephropathy, HTN, seizure disorder presenting with worsening L 5th toe gangrene admitted for osteomyelitis/toe gangrene,found to have severe metabolic acidosis due to uremia/renal failure, severe anemia 1. MICHAEL on adv CKD and now ESRD 2. Hemoaccess: temp RIJ converted to tunnel catheter 3. Diabetic foot infection s/p amputation (03/28/24) 4. Ques Emphsematous pyelo - on Zosyn 5. Anemia: s/p xfusion REC: HD tMWF Vol removal as tolerated K Per protocal ; In House will plan HD MWF will need outpt HD spot to be arranged- preferable in- [facility] HD - hospitalist to let us know once dc plans made If Pt needs rehab - Strongly consider [facility] Please notify us 24 hrs before d/c Will follow w team Time Spent With Patient Time: Total time managing care of this patient today ____ minutes. Progress Note: Quality Stroke Does the patient have a stroke diagnosis?: No
--- NOTE | 2024-03-28 14:46 | W.PM.OPN ---
Operative Note Operative Note Date of Service: 03/28/24 Narrative: Preop diagnosis: Gangrene, left 5th toe Postop diagnosis: The same Procedure: Ray amputation 5th toe left Surgeon: Jeffry Vines MD information assistant: DHARA Yanez The patient is a 68-year-old female multiple medical problems including end-stage renal disease and diabetes, with gangrene of the 5th toe. This had a little bit of drainage I told her it may be best to proceed with amputation. She understood the technique of the procedure as was the risks, benefits, and alternatives. I discussed the plan with her family as well She was brought to the operating room. She was placed supine under general anesthesia via laryngeal mask airway. The left foot was prepped and draped in the usual sterile fashion. A surgical time-out was done. The patient was receiving scheduled IV antibiotics I infiltrated the planned line of incision with lidocaine 1%. I made an incision using blade 15 around the 5th toe, extending this proximally on the lateral aspect. This was carried down with electrocautery through the full-thickness of the skin and subcutaneous fat. I then divided through tissue do expose the metatarsal head. I cleared up the metatarsal head and divided this with a bone cutter. I used the bone file to smooth and sharp edges. I irrigated. Once hemostasis was confirmed, I reapposed deeper tissue with Polysorb 2-0 simple interrupted sutures. Skin closure was achieved with nylon 3-0 simple interrupted sutures. The area was infiltrated with Marcaine 0.5% for postop analgesia. Dressings were applied. The procedure was completed . The patient tolerated procedure well. There were no immediate complications. Initial and final counts of sponges and instruments were correct. Estimated blood loss was about 5 cc. The patient was extubated without difficulty and transferred to the recovery room with stable vital signs.
--- NOTE | 2024-03-28 14:54 | HO.PM.IMPN ---
Subjective Subjective Date of Service: 03/28/24 Interval History: R foot pain NPO for OR [amputation] no fever/chills This history was taken in German from the patient Review of Systems Review of Systems: Yes all other systems are reviewed and are negative Physical Exam Vital Signs: Vital Signs: Last Vital Signs Temp 98.6 F 03/28/24 13:12 Pulse 74 03/28/24 13:12 Resp 16 03/28/24 13:12 BP 138/88 03/28/24 13:12 Pulse Ox 93 03/28/24 13:12 O2 Del Method Room Air 03/28/24 13:12 BMI result Body Mass Index 41.8 Gen: in no acute distress HEENT: sclera anicteric, moist mucus membranes Neck: supple, tunneled R IJ HD catheter Lungs: clear to auscultation bilaterally Heart: regular rate and rhythm, no murmurs Abd: soft, non-tender, non-distended, obese Ext: no edema Skin: warm/well-perfused, L 5th toe gangrenous Neuro: alert and oriented x3, no focal findings Psych: appropriate affect Objective Data Active Medications Acetaminophen (Acetaminophen 325 Mg Tablet) 650 mg PO Q6H PRN PRN Reason: Pain, Mild 1-3,fever,headache Last Admin: 03/26/24 03:59 Dose: 650 mg Documented By: SHADE Amlodipine Besylate (Amlodipine Besylate 10 Mg Tablet) 10 mg PO DAILY [facility]; Protocol Last Admin: 03/28/24 08:52 Dose: 10 mg Documented By: LINDA Aspirin (Aspirin Enteric Coated 81 Mg Tablet.) 81 mg PO DAILY [facility] Last Admin: 03/28/24 08:53 Dose: Not Given Documented By: LINDA Non-Admin Reason: NPO Calcium Carbonate (Calcium Carbonate 750 Mg Tab.Chew) 750 mg PO Q4H PRN PRN Reason: Heartburn Dextrose (Dextrose 50 % 25 Gm/50 Ml Syringe) 25 gm IVPUSH Q15M PRN; Protocol PRN Reason: per Hypoglycemia Standing Ord. Fentanyl (Fentanyl Citrate/Pf 100 Mcg/2 Ml Vial) 50 mcg IVPUSH Q5M PRN PRN Reason: Pain, Moderate to Severe (Pain Scale 4-10) Stop: 03/28/24 20:16 Ferrous Sulfate (Ferrous Sulfate 324 Mg Tablet.) 324 mg PO DAILY [facility] Last Admin: 03/28/24 08:52 Dose: 324 mg Documented By: LINDA Folic Acid (Folic Acid 1 Mg Tablet) 1 mg PO DAILY [facility] Last Admin: 03/28/24 08:53 Dose: Not Given Documented By: LINDA Non-Admin Reason: NPO Glucose (Glucose Gel 15 Gm Gel..Gram.) 15 gm PO Q15M PRN; Protocol PRN Reason: per Hypoglycemia Standing Ord. Hydroxyzine HCl (Hydroxyzine Hcl 25 Mg Tablet) 25 mg PO Q8H PRN PRN Reason: Anxiety Last Admin: 03/27/24 21:11 Dose: 25 mg Documented By: LEROY Daptomycin 620 mg/ Sodium (Chloride) 62.4 mls @ 124.8 mls/hr IV Q48H [facility] Last Infusion: 03/26/24 13:31 Dose: Infused Documented By: EFRAIN Piperacillin Sod/Tazobactam (Sod 2.25 gm/ Sodium Chloride) 50 mls @ 100 mls/hr IV Q8H [facility] Last Infusion: 03/28/24 06:01 Dose: Infused Documented By: HILARIA Insulin Human Lispro (Insulin Lispro 100 Unit/Ml 3 Ml Vial) 0 unit SUBCUT QIDACHS [facility]; Protocol Last Admin: 03/28/24 12:38 Dose: Not Given Documented By: HENRIQUE Non-Admin Reason: No Insulin Coverage Levetiracetam (Levetiracetam 500 Mg Tablet) 500 mg PO BID [facility] Last Admin: 03/28/24 08:52 Dose: 500 mg Documented By: LINDA Magnesium Hydroxide (Milk Of Magnesia 30 Ml Oral.Susp) 30 ml PO DAILY PRN PRN Reason: Constipation Melatonin (Melatonin 3 Mg Tablet) 6 mg PO BEDTIME PRN PRN Reason: Insomnia Last Admin: 03/27/24 21:10 Dose: 6 mg Documented By: LEROY Morphine Sulfate (Morphine Sulfate 2 Mg/Ml Cartridge) 1 mg IVPUSH Q4H PRN; Protocol PRN Reason: Pain, Severe (Pain Scale 7-10) Naloxone HCl (Naloxone Hcl 0.4 Mg/Ml Vial) 0.04 mg IVPUSH Q5M PRN PRN Reason: Excessive sedation or RR < 8 Nystatin (Nystatin Powder 15 Gm Bottle) 1 appl TOPICAL BID [facility]; Protocol Last Admin: 03/28/24 08:53 Dose: 1 appl Documented By: LINDA Ondansetron HCl (Ondansetron Hcl 4 Mg/2 Ml Vial) 4 mg IVPUSH Q6H PRN PRN Reason: Nausea and Vomiting Last Admin: 03/23/24 21:14 Dose: 4 mg Documented By: MICAH Ondansetron HCl (Ondansetron Hcl 4 Mg/2 Ml Vial) 4 mg IVPUSH ONCE PRN PRN Reason: Nausea and Vomiting Stop: 03/28/24 20:16 Oxycodone HCl (Oxycodone Hcl Immed Release 5 Mg Tablet) 5 mg PO Q6H PRN PRN Reason: Pain, Severe (Pain Scale 7-10) Last Admin: 03/28/24 08:58 Dose: 5 mg Documented By: LINDA Phenytoin Sodium (Phenytoin Sodium Extended 100 Mg Capsule) 100 mg PO TID [facility] Last Admin: 03/28/24 08:52 Dose: 100 mg Documented By: LINDA Senna (Sennosides 8.6 Mg Tablet) 17.2 mg PO BEDTIME PRN PRN Reason: constipation Sodium Chloride (0.9 % Sodium Chloride Flush 3 Ml Syringe) 3 ml IVFLUSH QSHIFT [facility] Last Admin: 03/28/24 08:53 Dose: 3 ml Documented By: LINDA Sodium Zirconium Cyclosilicate (Sodium Zirconium Cyclosilicate 10 Gm Powd.Pack) 10 gm PO MOWEFR [facility] Last Admin: 03/27/24 14:23 Dose: Not Given Documented By: EFRAIN Non-Admin Reason: NPO Trazodone HCl (Trazodone Hcl 100 Mg Tablet) 100 mg PO BEDTIME PRN PRN Reason: Sleep Last Admin: 03/27/24 21:10 Dose: 100 mg Documented By: LEROY Valproic Acid (Valproic Acid 250 Mg Capsule) 1,000 mg PO BID [facility] Last Admin: 03/28/24 08:52 Dose: 1,000 mg Documented By: LINDA Vitamin D (Cholecalciferol (Vitamin D3) 25 Mcg Tablet) 50 mcg PO DAILY [facility] Last Admin: 03/28/24 08:53 Dose: Not Given Documented By: LINDA Non-Admin Reason: NPO Labs 03/28/24 06:55 03/28/24 06:55 Labs: Laboratory Results - last 24 hr 03/27/24 03/27/24 03/28/24 15:58 20:24 06:55 MCV 90.2 MCH 30.6 MCHC 34.0 RDW 19.6 H Plt Count Not Reportable MPV Not Reportable Absolute Nucleated RBC 0.000 Nucleated RBC % (auto) 0.0 Anion Gap 14 Estim Creat Clear Calc 20.6 Estimated GFR 15 POC Glucose 102 107 Random Glucose 105 Calcium 7.9 L D Iron 17 L TIBC 136 L % Saturation 13 L Unsat Iron Binding 119 Ferritin 726 H Blood Type Antibody Screen 03/28/24 03/28/24 03/28/24 07:27 10:33 11:17 MCV MCH MCHC RDW Plt Count MPV Absolute Nucleated RBC Nucleated RBC % (auto) Anion Gap Estim Creat Clear Calc Estimated GFR POC Glucose 113 128 H Random Glucose Calcium Iron TIBC % Saturation Unsat Iron Binding Ferritin Blood Type O Positive Antibody Screen NEGATIVE 03/28/24 13:22 MCV MCH MCHC RDW Plt Count MPV Absolute Nucleated RBC Nucleated RBC % (auto) Anion Gap Estim Creat Clear Calc Estimated GFR POC Glucose 111 Random Glucose Calcium Iron TIBC % Saturation Unsat Iron Binding Ferritin Blood Type Antibody Screen Assessment and Plan (1) Pyelonephritis: Status: Acute (2) Gangrene of toe of left foot: Status: Acute (3) ESRD (end stage renal disease): Status: Acute Plan d7 for 68yo F with CKD5, DM2 with nephropathy, HTN, seizure disorder presenting with worsening L 5th toe gangrene admitted for osteomyelitis/toe gangrene, found to have severe metabolic acidosis due to uremia/renal failure, severe anemia severe metabolic acidosis, resolved MICHAEL/CKD5 progressed to ESRD - status post IV bicarbonate drip, temp HD catheter placed 03/22, converted to tunnel cath 03/27, last HD 03/27 and again tomorrow 03/29 - losartan discontinued - being followed by Nephrology [[facility]] diabetic gangrene/osteomyelitis - continue IV daptomycin + piperacillin-tazobactam 03/22-, BCx negative; ID consulted - Gen Surg consulted; amputation of R 5th toe today emphysematous pyelonephritis - noted on CT A/P done to r/o obstructive uropathy. Urology consulted and recommends medical management with antibiotics, BCx negative severe anemia of CKD - FOBT negative. Transfused 3 unit pRBCs with appropriate response; continue ferrous sulfate, epo per Nephrology folate deficiency - replete DM2 - stable blood sugar; continue ana-dose lispro HTN - amlodipine seizure disorder - no seizure-like activity noted, continue levetiracetam + valproate + phenytoin right Posterior thigh abrasion/wound - per Wound Care: Off Load Pressure with Q2 hr turns and use of pillows - Cleanse with Ns moist gauze, pat dry. ?Apply thin layer of Triad to wound bed. Cover with foam dressing to aid in off loading and protection from friction. Change every 3 days and PRN. VTE ppx - compression boots dispo - plan eventual home with VNA In my clinical judgment, the patient requires continued inpatient hospitalization for the following reasons: IV ABX, HD initiation/placement, source control Total time managing care of this patient today: 45 minutes. Quality Stroke Does the patient have a stroke diagnosis?: No VTE Prior VTE?: No VTE Risk Level:: Medical - moderate - high VTE Device Contraindication: N/A - Device Ordered VTE Drug Contraindication: N/A - Med Ordered
[2024-03-28] MEDS: Morphine Sulfate 2 MG/ML CARTRIDGE 1 MG IVPUSH ×2 (16:58→22:26)
[2024-03-28] MEDS: DAPTOmycin 620 MG in 0.9 % Sodium Chloride 50 ML 124.8 MG IV (17:13)
[2024-03-28 17:49] LABS: Glucose, Whole Blood 108 mg/dL (60-115)
[2024-03-28 20:26] LABS: Glucose, Whole Blood 146 mg/dL (60-115)
[2024-03-29] VITALS (9 sets, daily range): BP systolic 105–151; BP diastolic 52–65; PULSE 68–81; RESP 17–20; TEMP 36.5–37.5; O2SAT 95–97
[2024-03-29] MEDS: 0.9 % Sodium Chloride Flush 3 ML SYRINGE IVFLUSH ×4 (03:37→20:36)
[2024-03-29] MEDS: Piperacillin Sodium/Tazobactam 2.25 GM in 0.9 % Sodium Chloride 50 ML IV ×3 (05:14→20:32)
[2024-03-29 07:19] LABS: Anion Gap 16 (12-20); Blood Urea Nitrogen 30 mg/dL (9-16); Calcium 7.8 mg/dL (8.4-10.2); Carbon Dioxide 24 mmol/L (22-29); Chloride 101 mmol/L (96-108); Creatinine Clr Calc Pharmacy 16.7; Estimated Glomerular Filt Rate 12; Glucose Random 97 mg/dL (60-115); Potassium 3.1 mmol/L (3.3-5.1); Sodium 138 mmol/L (135-145)
[2024-03-29 07:23] LABS: Mean Corpuscular HGB Conc 33.3 g/dl (31.0-35.0); Mean Corpuscular Hemoglobin 30.7 pg (27.0-33.0); Mean Corpuscular Volume 92.1 fL (80.0-98.0); PLT CLUMP 1; Red Blood Count 2.15 X10*6/uL (4.20-5.50); Red Cell Distribution Width 19.6 % (11.0-16.0)
[2024-03-29 07:29] LABS: Glucose, Whole Blood 101 mg/dL (60-115)
[2024-03-29 07:39] LABS: Hematocrit 19.8 % (37.0-47.0); Hemoglobin 6.6 g/dl (12.0-16.0)
[2024-03-29] MEDS: Potassium Chloride ER 10 MEQ TABLET.ER PO (09:19)
[2024-03-29] MEDS: amLODIPine Besylate 10 MG TABLET PO (09:19)
[2024-03-29] MEDS: Folic Acid 1 MG TABLET PO (09:19)
[2024-03-29] MEDS: Ferrous Sulfate 324 MG TABLET.DR PO (09:19)
[2024-03-29] MEDS: oxyCODONE HCl Immed Release 5 MG TABLET PO (09:19)
[2024-03-29] MEDS: Cholecalciferol (Vitamin D3) 25 MCG TABLET 50 MCG PO (09:19)
[2024-03-29] MEDS: Phenytoin Sodium Extended 100 MG CAPSULE PO ×3 (09:19→20:32)
[2024-03-29] MEDS: Aspirin Enteric Coated 81 MG TABLET.DR PO (09:19)
[2024-03-29] MEDS: levETIRAcetam 500 MG TABLET PO ×2 (09:20→20:32)
[2024-03-29] MEDS: Valproic Acid 250 MG CAPSULE 1000 MG PO ×2 (09:20→20:32)
[2024-03-29] MEDS: Nystatin Powder 15 GM BOTTLE 1 APPL TOPICAL ×2 (09:21→20:43)
--- NOTE | 2024-03-29 09:35 | HO.POSTANES ---
Post Anesthesia Evaluation Post Anesthesia Evaluation Date of Service: 03/29/24 Vital Signs: Vital Signs Temp Pulse Resp BP Pulse Ox O2 Del Method O2 Flow Rate 03/29/24 07:59 98.5 F 73 18 151/65 H 95 Room Air 03/29/24 03:42 97.8 F 68 17 127/58 L 96 Room Air 03/28/24 22:29 98.7 F 72 20 155/65 H 96 Nasal Cannula 2 Anesthesia: General LMA Mental Status: Awake Pain Control: Satisfactory (in pain, nurse at bedside admisintering pain medication) Nausea/Vomiting: None Hydration: Adequate Anesthesia-Related Issues: No Anes. Related Issues
[2024-03-29 11:37] LABS: Glucose, Whole Blood 156 mg/dL (60-115)
[2024-03-29] MEDS: Insulin Lispro 100 UNIT/ML 3 ML VIAL SUBCUT ×2 (11:47→20:33)
--- NOTE | 2024-03-29 12:30 | HO.PM.IMPN ---
Subjective Subjective Date of Service: 03/29/24 Interval History: Hb 6.6 POD1 feels weak no fever This history was taken in [place] from the patient. Review of Systems Review of Systems: Yes all other systems are reviewed and are negative Physical Exam Vital Signs: Vital Signs: Last Vital Signs Temp 97.9 F 03/29/24 11:34 Pulse 74 03/29/24 11:34 Resp 20 03/29/24 11:34 BP 125/56 L 03/29/24 11:34 Pulse Ox 96 03/29/24 11:34 O2 Del Method Room Air 03/29/24 11:34 O2 Flow Rate 2 03/28/24 22:29 Oxygen Flow Rate 2 03/28/24 14:15 BMI result Body Mass Index 41.8 Gen: in no acute distress HEENT: sclera anicteric, moist mucus membranes Neck: supple, tunneled R IJ HD catheter Lungs: clear to auscultation bilaterally Heart: regular rate and rhythm, no murmurs Abd: soft, non-tender, non-distended, obese Ext: no edema Skin: warm/well-perfused, L foot in dry dressing Neuro: alert and oriented x3, no focal findings Psych: appropriate affect Objective Data Active Medications Acetaminophen (Acetaminophen 325 Mg Tablet) 650 mg PO Q6H PRN PRN Reason: Pain, Mild 1-3,fever,headache Last Admin: 03/26/24 03:59 Dose: 650 mg Documented By: SHADE Amlodipine Besylate (Amlodipine Besylate 10 Mg Tablet) 10 mg PO DAILY [facility]; Protocol Last Admin: 03/29/24 09:19 Dose: 10 mg Documented By: STONE Aspirin (Aspirin Enteric Coated 81 Mg Tablet.) 81 mg PO DAILY [facility] Last Admin: 03/29/24 09:19 Dose: 81 mg Documented By: STONE Calcium Carbonate (Calcium Carbonate 750 Mg Tab.Chew) 750 mg PO Q4H PRN PRN Reason: Heartburn Dextrose (Dextrose 50 % 25 Gm/50 Ml Syringe) 25 gm IVPUSH Q15M PRN; Protocol PRN Reason: per Hypoglycemia Standing Ord. Ferrous Sulfate (Ferrous Sulfate 324 Mg Tablet.) 324 mg PO DAILY [facility] Last Admin: 03/29/24 09:19 Dose: 324 mg Documented By: STONE Folic Acid (Folic Acid 1 Mg Tablet) 1 mg PO DAILY [facility] Last Admin: 03/29/24 09:19 Dose: 1 mg Documented By: STONE Glucose (Glucose Gel 15 Gm Gel..Gram.) 15 gm PO Q15M PRN; Protocol PRN Reason: per Hypoglycemia Standing Ord. Hydroxyzine HCl (Hydroxyzine Hcl 25 Mg Tablet) 25 mg PO Q8H PRN PRN Reason: Anxiety Last Admin: 03/27/24 21:11 Dose: 25 mg Documented By: LEROY Piperacillin Sod/Tazobactam (Sod 2.25 gm/ Sodium Chloride) 50 mls @ 100 mls/hr IV Q8H [facility] Last Admin: 03/29/24 11:47 Dose: 100 mls/hr Documented By: STONE Daptomycin 620 mg/ Sodium (Chloride) 62.4 mls @ 124.8 mls/hr IV Q48H [facility] Last Infusion: 03/28/24 17:47 Dose: Infused Documented By: HENRIQUE Insulin Human Lispro (Insulin Lispro 100 Unit/Ml 3 Ml Vial) 0 unit SUBCUT QIDACHS [facility]; Protocol Last Admin: 03/29/24 11:47 Dose: 2 unit Documented By: STONE Levetiracetam (Levetiracetam 500 Mg Tablet) 500 mg PO BID [facility] Last Admin: 03/29/24 09:20 Dose: 500 mg Documented By: STONE Magnesium Hydroxide (Milk Of Magnesia 30 Ml Oral.Susp) 30 ml PO DAILY PRN PRN Reason: Constipation Melatonin (Melatonin 3 Mg Tablet) 6 mg PO BEDTIME PRN PRN Reason: Insomnia Last Admin: 03/27/24 21:10 Dose: 6 mg Documented By: LEROY Morphine Sulfate (Morphine Sulfate 2 Mg/Ml Cartridge) 1 mg IVPUSH Q4H PRN; Protocol PRN Reason: Pain, Severe (Pain Scale 7-10) Last Admin: 03/28/24 22:26 Dose: 1 mg Documented By: DOUGLAS Naloxone HCl (Naloxone Hcl 0.4 Mg/Ml Vial) 0.04 mg IVPUSH Q5M PRN PRN Reason: Excessive sedation or RR < 8 Nystatin (Nystatin Powder 15 Gm Bottle) 1 appl TOPICAL BID [facility]; Protocol Last Admin: 03/29/24 09:21 Dose: 1 appl Documented By: STONE Ondansetron HCl (Ondansetron Hcl 4 Mg/2 Ml Vial) 4 mg IVPUSH Q6H PRN PRN Reason: Nausea and Vomiting Last Admin: 03/23/24 21:14 Dose: 4 mg Documented By: MICAH Oxycodone HCl (Oxycodone Hcl Immed Release 5 Mg Tablet) 5 mg PO Q6H PRN PRN Reason: Pain, Moderate(Pain Scale 4-6) Last Admin: 03/29/24 09:19 Dose: 5 mg Documented By: STONE Phenytoin Sodium (Phenytoin Sodium Extended 100 Mg Capsule) 100 mg PO TID [facility] Last Admin: 03/29/24 09:19 Dose: 100 mg Documented By: STONE Senna (Sennosides 8.6 Mg Tablet) 17.2 mg PO BEDTIME PRN PRN Reason: constipation Sodium Chloride (0.9 % Sodium Chloride Flush 3 Ml Syringe) 3 ml IVFLUSH QSHIFT [facility] Last Admin: 03/29/24 09:20 Dose: 3 ml Documented By: STONE Sodium Zirconium Cyclosilicate (Sodium Zirconium Cyclosilicate 10 Gm Powd.Pack) 10 gm PO MOWEFR [facility] Last Admin: 03/29/24 11:55 Dose: Not Given Documented By: STONE Non-Admin Reason: Physician Held Med Trazodone HCl (Trazodone Hcl 100 Mg Tablet) 100 mg PO BEDTIME PRN PRN Reason: Sleep Last Admin: 03/27/24 21:10 Dose: 100 mg Documented By: LEROY Valproic Acid (Valproic Acid 250 Mg Capsule) 1,000 mg PO BID [facility] Last Admin: 03/29/24 09:20 Dose: 1,000 mg Documented By: STONE Vitamin D (Cholecalciferol (Vitamin D3) 25 Mcg Tablet) 50 mcg PO DAILY [facility] Last Admin: 03/29/24 09:19 Dose: 50 mcg Documented By: STONE Labs 03/29/24 06:21 03/29/24 06:21 Labs: Laboratory Results - last 24 hr 03/28/24 03/28/24 03/28/24 10:33 13:22 17:45 MCV MCH MCHC RDW Plt Count MPV Absolute Nucleated RBC Nucleated RBC % (auto) Anion Gap Estim Creat Clear Calc Estimated GFR POC Glucose 111 108 Random Glucose Calcium Blood Type O Positive Antibody Screen NEGATIVE Crossmatch See Detail 03/28/24 03/29/24 03/29/24 20:22 06:21 07:10 MCV 92.1 MCH 30.7 MCHC 33.3 RDW 19.6 H Plt Count Not Reportable MPV Not Reportable Absolute Nucleated RBC 0.000 Nucleated RBC % (auto) 0.0 Anion Gap 16 Estim Creat Clear Calc 16.7 Estimated GFR 12 POC Glucose 146 H 101 Random Glucose 97 Calcium 7.8 L Blood Type Antibody Screen Crossmatch 03/29/24 11:32 MCV MCH MCHC RDW Plt Count MPV Absolute Nucleated RBC Nucleated RBC % (auto) Anion Gap Estim Creat Clear Calc Estimated GFR POC Glucose 156 H Random Glucose Calcium Blood Type Antibody Screen Crossmatch Assessment and Plan (1) Pyelonephritis: Status: Acute (2) Gangrene of toe of left foot: Status: Acute (3) ESRD (end stage renal disease): Status: Acute Plan d8 for 68yo F with CKD5, DM2 with nephropathy, HTN, seizure disorder presenting with worsening L 5th toe gangrene admitted for osteomyelitis/toe gangrene, found to have severe metabolic acidosis due to uremia/renal failure, severe anemia severe metabolic acidosis, resolved MICHAEL/CKD5 progressed to ESRD - status post IV bicarbonate drip, temp HD catheter placed 03/22, converted to tunnel cath 03/27, last HD 03/27 and again today 03/29 - being followed by Nephrology [[facility]] hypoK - hold [facility] diabetic gangrene/osteomyelitis - continue IV daptomycin + piperacillin-tazobactam 03/22-, BCx negative; amputation of R 5th toe done 03/28; discuss antibiotic course with ID emphysematous pyelonephritis - noted on CT A/P done to r/o obstructive uropathy. Urology consulted and recommends medical management with antibiotics, BCx negative severe anemia of CKD - FOBT negative. Transfuse 2u pRBCS with HD today; previously got 3 unit pRBCs with appropriate response; continue ferrous sulfate, epo per Nephrology folate deficiency - repleting DM2 - stable blood sugar; continue ana-dose lispro HTN - amlodipine seizure disorder - no seizure-like activity noted, continue levetiracetam + valproate + phenytoin right posterior thigh abrasion/wound - per Wound Care: Off Load Pressure with Q2 hr turns and use of pillows - Cleanse with Ns moist gauze, pat dry. ?Apply thin layer of Triad to wound bed. Cover with foam dressing to aid in off loading and protection from friction. Change every 3 days and PRN. VTE ppx - compression boots dispo - plan eventual home with VNA In my clinical judgment, the patient requires continued inpatient hospitalization for the following reasons: IV ABX, HD initiation/placement, postop care Total time managing care of this patient today: 45 minutes. Quality Stroke Does the patient have a stroke diagnosis?: No VTE Prior VTE?: No VTE Risk Level:: Medical - moderate - high VTE Device Contraindication: N/A - Device Ordered VTE Drug Contraindication: N/A - Med Ordered
[2024-03-29] MEDS: Morphine Sulfate 2 MG/ML CARTRIDGE 1 MG IVPUSH ×3 (13:16→21:50)
--- NOTE | 2024-03-29 13:20 | PM.PNGS ---
Subjective Subjective Date of Service: 03/29/24 Interval history: No events reported by nurse She does complain of multiple aches and pains all over Physical Exam Vital Signs: Vital Signs: Last Vital Signs Temp 97.9 F 03/29/24 11:34 Pulse 74 03/29/24 11:34 Resp 20 03/29/24 11:34 BP 125/56 L 03/29/24 11:34 Pulse Ox 96 03/29/24 11:34 O2 Del Method Room Air 03/29/24 11:34 O2 Flow Rate 2 03/28/24 22:29 Oxygen Flow Rate 2 03/28/24 14:15 BMI result Body Mass Index 41.8 Const: Other: Very anxious Resp: Effort & Inspection: normal respiratory effort Cardio: Rate: regular rate Extrem: Other: Amputation site clean, dry sutures intact, no evidence was infection, mild discoloration of the 4th toe on the left Objective Data Active Medications Acetaminophen (Acetaminophen 325 Mg Tablet) 650 mg PO Q6H PRN PRN Reason: Pain, Mild 1-3,fever,headache Last Admin: 03/26/24 03:59 Dose: 650 mg Documented By: SHADE Amlodipine Besylate (Amlodipine Besylate 10 Mg Tablet) 10 mg PO DAILY [facility]; Protocol Last Admin: 03/29/24 09:19 Dose: 10 mg Documented By: STONE Aspirin (Aspirin Enteric Coated 81 Mg Tablet.) 81 mg PO DAILY [facility] Last Admin: 03/29/24 09:19 Dose: 81 mg Documented By: STONE Calcium Carbonate (Calcium Carbonate 750 Mg Tab.Chew) 750 mg PO Q4H PRN PRN Reason: Heartburn Dextrose (Dextrose 50 % 25 Gm/50 Ml Syringe) 25 gm IVPUSH Q15M PRN; Protocol PRN Reason: per Hypoglycemia Standing Ord. Ferrous Sulfate (Ferrous Sulfate 324 Mg Tablet.) 324 mg PO DAILY [facility] Last Admin: 03/29/24 09:19 Dose: 324 mg Documented By: STONE Folic Acid (Folic Acid 1 Mg Tablet) 1 mg PO DAILY [facility] Last Admin: 03/29/24 09:19 Dose: 1 mg Documented By: STONE Glucose (Glucose Gel 15 Gm Gel..Gram.) 15 gm PO Q15M PRN; Protocol PRN Reason: per Hypoglycemia Standing Ord. Hydroxyzine HCl (Hydroxyzine Hcl 25 Mg Tablet) 25 mg PO Q8H PRN PRN Reason: Anxiety Last Admin: 03/27/24 21:11 Dose: 25 mg Documented By: LEROY Piperacillin Sod/Tazobactam (Sod 2.25 gm/ Sodium Chloride) 50 mls @ 100 mls/hr IV Q8H [facility] Last Infusion: 03/29/24 12:17 Dose: Infused Documented By: STONE Daptomycin 620 mg/ Sodium (Chloride) 62.4 mls @ 124.8 mls/hr IV Q48H [facility] Last Infusion: 03/28/24 17:47 Dose: Infused Documented By: HENRIQUE Insulin Human Lispro (Insulin Lispro 100 Unit/Ml 3 Ml Vial) 0 unit SUBCUT QIDACHS [facility]; Protocol Last Admin: 03/29/24 11:47 Dose: 2 unit Documented By: STONE Levetiracetam (Levetiracetam 500 Mg Tablet) 500 mg PO BID [facility] Last Admin: 03/29/24 09:20 Dose: 500 mg Documented By: STONE Magnesium Hydroxide (Milk Of Magnesia 30 Ml Oral.Susp) 30 ml PO DAILY PRN PRN Reason: Constipation Melatonin (Melatonin 3 Mg Tablet) 6 mg PO BEDTIME PRN PRN Reason: Insomnia Last Admin: 03/27/24 21:10 Dose: 6 mg Documented By: LEROY Morphine Sulfate (Morphine Sulfate 2 Mg/Ml Cartridge) 1 mg IVPUSH Q4H PRN; Protocol PRN Reason: Pain, Severe (Pain Scale 7-10) Last Admin: 03/29/24 13:16 Dose: 1 mg Documented By: STONE Naloxone HCl (Naloxone Hcl 0.4 Mg/Ml Vial) 0.04 mg IVPUSH Q5M PRN PRN Reason: Excessive sedation or RR < 8 Nystatin (Nystatin Powder 15 Gm Bottle) 1 appl TOPICAL BID [facility]; Protocol Last Admin: 03/29/24 09:21 Dose: 1 appl Documented By: STONE Ondansetron HCl (Ondansetron Hcl 4 Mg/2 Ml Vial) 4 mg IVPUSH Q6H PRN PRN Reason: Nausea and Vomiting Last Admin: 03/23/24 21:14 Dose: 4 mg Documented By: MICAH Oxycodone HCl (Oxycodone Hcl Immed Release 5 Mg Tablet) 5 mg PO Q6H PRN PRN Reason: Pain, Moderate(Pain Scale 4-6) Last Admin: 03/29/24 09:19 Dose: 5 mg Documented By: STONE Phenytoin Sodium (Phenytoin Sodium Extended 100 Mg Capsule) 100 mg PO TID [facility] Last Admin: 03/29/24 09:19 Dose: 100 mg Documented By: STONE Senna (Sennosides 8.6 Mg Tablet) 17.2 mg PO BEDTIME PRN PRN Reason: constipation Sodium Chloride (0.9 % Sodium Chloride Flush 3 Ml Syringe) 3 ml IVFLUSH QSHIFT [facility] Last Admin: 03/29/24 09:20 Dose: 3 ml Documented By: STONE Sodium Zirconium Cyclosilicate (Sodium Zirconium Cyclosilicate 10 Gm Powd.Pack) 10 gm PO MOWEFR [facility] Last Admin: 03/29/24 11:55 Dose: Not Given Documented By: STONE Non-Admin Reason: Physician Held Med Trazodone HCl (Trazodone Hcl 100 Mg Tablet) 100 mg PO BEDTIME PRN PRN Reason: Sleep Last Admin: 03/27/24 21:10 Dose: 100 mg Documented By: LEROY Valproic Acid (Valproic Acid 250 Mg Capsule) 1,000 mg PO BID [facility] Last Admin: 03/29/24 09:20 Dose: 1,000 mg Documented By: STONE Vitamin D (Cholecalciferol (Vitamin D3) 25 Mcg Tablet) 50 mcg PO DAILY [facility] Last Admin: 03/29/24 09:19 Dose: 50 mcg Documented By: STONE Labs 03/29/24 06:21 03/29/24 06:21 Labs: Laboratory Results - last 24 hr 03/28/24 03/28/24 03/28/24 10:33 13:22 17:45 MCV MCH MCHC RDW Plt Count MPV Absolute Nucleated RBC Nucleated RBC % (auto) Anion Gap Estim Creat Clear Calc Estimated GFR POC Glucose 111 108 Random Glucose Calcium Blood Type O Positive Antibody Screen NEGATIVE Crossmatch See Detail 03/28/24 03/29/24 03/29/24 20:22 06:21 07:10 MCV 92.1 MCH 30.7 MCHC 33.3 RDW 19.6 H Plt Count Not Reportable MPV Not Reportable Absolute Nucleated RBC 0.000 Nucleated RBC % (auto) 0.0 Anion Gap 16 Estim Creat Clear Calc 16.7 Estimated GFR 12 POC Glucose 146 H 101 Random Glucose 97 Calcium 7.8 L Blood Type Antibody Screen Crossmatch 03/29/24 11:32 MCV MCH MCHC RDW Plt Count MPV Absolute Nucleated RBC Nucleated RBC % (auto) Anion Gap Estim Creat Clear Calc Estimated GFR POC Glucose 156 H Random Glucose Calcium Blood Type Antibody Screen Crossmatch Procedures Date of Service Date of Service: 03/29/24 Progress Note: A&P Assessment and plan (1) Gangrene of toe of left foot: Status: Acute Assessment and Plan: Status post post 5th toe amputation Dressings changed Site looks clean and dry 4th toe has some mild discoloration laterally but appears viable Continue wound care Rest of care as per the primary service When discharged, I can see her in the office for removal of suture he was Time Spent With Patient Time: Total time managing care of this patient today ____ minutes. Quality Stroke Does the patient have a stroke diagnosis?: No VTE Prior VTE?: No VTE Risk Level:: Medical - moderate - high VTE Device Contraindication: N/A - Device Ordered VTE Drug Contraindication: N/A - Med Ordered
--- NOTE | 2024-03-29 13:37 | MHC.CM.PN ---
Per rounds and EMR review, pt. requires ongoing treatment with IV ABX, HD initiation, and post op care. [facility] has been updated.
[2024-03-29 18:11] LABS: Glucose, Whole Blood 133 mg/dL (60-115)
[2024-03-29 19:55] LABS: Glucose, Whole Blood 242 mg/dL (60-115)
[2024-03-30] VITALS (8 sets, daily range): BP systolic 110–183; BP diastolic 58–85; PULSE 73–85; RESP 18–20; TEMP 36.3–37.3; O2SAT 95–97
[2024-03-30] MEDS: Morphine Sulfate 2 MG/ML CARTRIDGE 1 MG IVPUSH ×2 (03:54→08:56)
[2024-03-30] MEDS: Piperacillin Sodium/Tazobactam 2.25 GM in 0.9 % Sodium Chloride 50 ML IV ×2 (04:00→12:17)
[2024-03-30 07:13] LABS: Glucose, Whole Blood 167 mg/dL (60-115)
[2024-03-30 07:15] LABS: Anion Gap 15 (12-20); Blood Urea Nitrogen 20 mg/dL (9-16); Calcium 8.2 mg/dL (8.4-10.2); Carbon Dioxide 25 mmol/L (22-29); Chloride 102 mmol/L (96-108); Creatinine Clr Calc Pharmacy 22.4; Estimated Glomerular Filt Rate 17; Glucose Random 148 mg/dL (60-115); Sodium 139 mmol/L (135-145)
[2024-03-30 07:16] LABS: Hematocrit 30.1 % (37.0-47.0); Hemoglobin 10.2 g/dl (12.0-16.0); Mean Corpuscular HGB Conc 33.9 g/dl (31.0-35.0); Mean Corpuscular Hemoglobin 30.3 pg (27.0-33.0); Mean Corpuscular Volume 89.3 fL (80.0-98.0); PLT CLUMP 1; Red Blood Count 3.37 X10*6/uL (4.20-5.50); Red Cell Distribution Width 19.3 % (11.0-16.0)
[2024-03-30 07:52] LABS: White Blood Count 13.5 X10*3/uL (4.8-10.8)
[2024-03-30] MEDS: Valproic Acid 250 MG CAPSULE 1000 MG PO ×2 (08:56→20:26)
[2024-03-30] MEDS: Aspirin Enteric Coated 81 MG TABLET.DR PO (08:56)
[2024-03-30] MEDS: amLODIPine Besylate 10 MG TABLET PO (08:56)
[2024-03-30] MEDS: Cholecalciferol (Vitamin D3) 25 MCG TABLET 50 MCG PO (08:56)
[2024-03-30] MEDS: hydrOXYzine HCL 25 MG TABLET PO ×2 (08:56→20:26)
[2024-03-30] MEDS: Phenytoin Sodium Extended 100 MG CAPSULE PO ×3 (08:56→20:26)
[2024-03-30] MEDS: Potassium Chloride ER 20 MEQ TAB.ER.PRT PO (08:56)
[2024-03-30] MEDS: Ferrous Sulfate 324 MG TABLET.DR PO (08:56)
[2024-03-30] MEDS: levETIRAcetam 500 MG TABLET PO ×2 (08:56→20:26)
[2024-03-30] MEDS: Folic Acid 1 MG TABLET PO (08:56)
[2024-03-30] MEDS: 0.9 % Sodium Chloride Flush 3 ML SYRINGE IVFLUSH ×3 (08:57→20:32)
[2024-03-30] MEDS: Insulin Lispro 100 UNIT/ML 3 ML VIAL SUBCUT ×3 (08:57→22:01)
[2024-03-30] MEDS: Nystatin Powder 15 GM BOTTLE 1 APPL TOPICAL ×2 (08:58→20:30)
[2024-03-30 11:10] LABS: Glucose, Whole Blood 112 mg/dL (60-115)
[2024-03-30] MEDS: ondansetron HCL 4 MG/2 ML VIAL IVPUSH (12:17)
--- NOTE | 2024-03-30 12:38 | HO.PM.IMPN ---
Subjective Subjective Date of Service: 03/30/24 Interval History: This history was taken in Yoruba from the patient. Feels weak Tolerated transfusion Review of Systems Review of Systems: Yes all other systems are reviewed and are negative Physical Exam Vital Signs: Vital Signs: Last Vital Signs Temp 98.6 F 03/30/24 11:17 Pulse 74 03/30/24 11:17 Resp 20 03/30/24 11:17 BP 144/65 H 03/30/24 11:17 Pulse Ox 96 03/30/24 11:17 O2 Del Method Room Air 03/30/24 11:17 O2 Flow Rate 2 03/28/24 22:29 Oxygen Flow Rate 2 03/28/24 14:15 BMI result Body Mass Index 41.8 Gen: in no acute distress HEENT: sclera anicteric, moist mucus membranes Neck: supple, tunneled R IJ HD catheter Lungs: clear to auscultation bilaterally Heart: regular rate and rhythm, no murmurs Abd: soft, non-tender, non-distended, obese Ext: no edema Skin: warm/well-perfused, L foot with clean 5th toe amputation site, 4th toe a little discolored laterally Neuro: alert and oriented x3, no focal findings Psych: appropriate affect Objective Data Active Medications Acetaminophen (Acetaminophen 325 Mg Tablet) 650 mg PO Q6H PRN PRN Reason: Pain, Mild 1-3,fever,headache Last Admin: 03/26/24 03:59 Dose: 650 mg Documented By: SHADE Amlodipine Besylate (Amlodipine Besylate 10 Mg Tablet) 10 mg PO DAILY [facility]; Protocol Last Admin: 03/30/24 08:56 Dose: 10 mg Documented By: STONE Aspirin (Aspirin Enteric Coated 81 Mg Tablet.) 81 mg PO DAILY [facility] Last Admin: 03/30/24 08:56 Dose: 81 mg Documented By: STONE Calcium Carbonate (Calcium Carbonate 750 Mg Tab.Chew) 750 mg PO Q4H PRN PRN Reason: Heartburn Dextrose (Dextrose 50 % 25 Gm/50 Ml Syringe) 25 gm IVPUSH Q15M PRN; Protocol PRN Reason: per Hypoglycemia Standing Ord. Ferrous Sulfate (Ferrous Sulfate 324 Mg Tablet.) 324 mg PO DAILY [facility] Last Admin: 03/30/24 08:56 Dose: 324 mg Documented By: STONE Folic Acid (Folic Acid 1 Mg Tablet) 1 mg PO DAILY [facility] Last Admin: 03/30/24 08:56 Dose: 1 mg Documented By: STONE Glucose (Glucose Gel 15 Gm Gel..Gram.) 15 gm PO Q15M PRN; Protocol PRN Reason: per Hypoglycemia Standing Ord. Hydroxyzine HCl (Hydroxyzine Hcl 25 Mg Tablet) 25 mg PO Q8H PRN PRN Reason: Anxiety Last Admin: 03/30/24 08:56 Dose: 25 mg Documented By: STONE Piperacillin Sod/Tazobactam (Sod 2.25 gm/ Sodium Chloride) 50 mls @ 100 mls/hr IV Q8H [facility] Last Admin: 03/30/24 12:17 Dose: 100 mls/hr Documented By: STONE Daptomycin 620 mg/ Sodium (Chloride) 62.4 mls @ 124.8 mls/hr IV Q48H [facility] Last Infusion: 03/28/24 17:47 Dose: Infused Documented By: HENRIQUE Insulin Human Lispro (Insulin Lispro 100 Unit/Ml 3 Ml Vial) 0 unit SUBCUT QIDACHS [facility]; Protocol Last Admin: 03/30/24 11:20 Dose: Not Given Documented By: STONE Non-Admin Reason: poc= 112 Levetiracetam (Levetiracetam 500 Mg Tablet) 500 mg PO BID [facility] Last Admin: 03/30/24 08:56 Dose: 500 mg Documented By: STONE Magnesium Hydroxide (Milk Of Magnesia 30 Ml Oral.Susp) 30 ml PO DAILY PRN PRN Reason: Constipation Melatonin (Melatonin 3 Mg Tablet) 6 mg PO BEDTIME PRN PRN Reason: Insomnia Last Admin: 03/27/24 21:10 Dose: 6 mg Documented By: LEROY Morphine Sulfate (Morphine Sulfate 2 Mg/Ml Cartridge) 1 mg IVPUSH Q4H PRN; Protocol PRN Reason: Pain, Severe (Pain Scale 7-10) Last Admin: 03/30/24 08:56 Dose: 1 mg Documented By: STONE Naloxone HCl (Naloxone Hcl 0.4 Mg/Ml Vial) 0.04 mg IVPUSH Q5M PRN PRN Reason: Excessive sedation or RR < 8 Nystatin (Nystatin Powder 15 Gm Bottle) 1 appl TOPICAL BID [facility]; Protocol Last Admin: 03/30/24 08:58 Dose: 1 appl Documented By: STONE Ondansetron HCl (Ondansetron Hcl 4 Mg/2 Ml Vial) 4 mg IVPUSH Q6H PRN PRN Reason: Nausea and Vomiting Last Admin: 03/30/24 12:17 Dose: 4 mg Documented By: STONE Oxycodone HCl (Oxycodone Hcl Immed Release 5 Mg Tablet) 5 mg PO Q6H PRN PRN Reason: Pain, Moderate(Pain Scale 4-6) Last Admin: 03/29/24 09:19 Dose: 5 mg Documented By: STONE Phenytoin Sodium (Phenytoin Sodium Extended 100 Mg Capsule) 100 mg PO TID [facility] Last Admin: 03/30/24 08:56 Dose: 100 mg Documented By: STONE Senna (Sennosides 8.6 Mg Tablet) 17.2 mg PO BEDTIME PRN PRN Reason: constipation Sodium Chloride (0.9 % Sodium Chloride Flush 3 Ml Syringe) 3 ml IVFLUSH QSHIFT [facility] Last Admin: 03/30/24 08:57 Dose: 3 ml Documented By: STONE Sodium Zirconium Cyclosilicate (Sodium Zirconium Cyclosilicate 10 Gm Powd.Pack) 10 gm PO MOWEFR [facility] Last Admin: 03/29/24 11:55 Dose: Not Given Documented By: STONE Non-Admin Reason: Physician Held Med Trazodone HCl (Trazodone Hcl 100 Mg Tablet) 100 mg PO BEDTIME PRN PRN Reason: Sleep Last Admin: 03/27/24 21:10 Dose: 100 mg Documented By: LEROY Valproic Acid (Valproic Acid 250 Mg Capsule) 1,000 mg PO BID [facility] Last Admin: 03/30/24 08:56 Dose: 1,000 mg Documented By: STONE Vitamin D (Cholecalciferol (Vitamin D3) 25 Mcg Tablet) 50 mcg PO DAILY [facility] Last Admin: 03/30/24 08:56 Dose: 50 mcg Documented By: STONE Labs 03/30/24 06:17 03/30/24 06:17 Labs: Laboratory Results - last 24 hr 03/21/24 03/28/24 03/29/24 22:30 10:33 16:22 MCV MCH MCHC RDW Plt Count MPV Absolute Nucleated RBC Nucleated RBC % (auto) Anion Gap Estim Creat Clear Calc Estimated GFR POC Glucose 133 H Random Glucose Calcium Blood Type O Positive Antibody Screen NEGATIVE Crossmatch See Detail See Detail 03/29/24 03/30/24 03/30/24 19:29 06:17 07:03 MCV 89.3 MCH 30.3 MCHC 33.9 RDW 19.3 H Plt Count TNP MPV Not Reportable Absolute Nucleated RBC 0.000 Nucleated RBC % (auto) 0.0 Anion Gap 15 Estim Creat Clear Calc 22.4 Estimated GFR 17 POC Glucose 242 H 167 H Random Glucose 148 H Calcium 8.2 L Blood Type Antibody Screen Crossmatch 03/30/24 11:06 MCV MCH MCHC RDW Plt Count MPV Absolute Nucleated RBC Nucleated RBC % (auto) Anion Gap Estim Creat Clear Calc Estimated GFR POC Glucose 112 Random Glucose Calcium Blood Type Antibody Screen Crossmatch Assessment and Plan (1) Pyelonephritis: Status: Acute (2) Gangrene of toe of left foot: Status: Acute (3) ESRD (end stage renal disease): Status: Acute Plan d9 for 68yo F with CKD5, DM2 with nephropathy, HTN, seizure disorder presenting with worsening L 5th toe gangrene admitted for osteomyelitis/toe gangrene, found to have severe metabolic acidosis due to uremia/renal failure, severe anemia severe metabolic acidosis, resolved MICHAEL/CKD5 progressed to ESRD - status post IV bicarbonate drip, temp HD catheter placed 03/22, converted to tunnel cath 03/27, last HD 03/29 - being followed by Nephrology [[facility]]; need to confirm outpt HD placement hypoK - hold Lokelma, give 1 dose PO KCl diabetic gangrene/osteomyelitis - was on IV daptomycin + piperacillin-tazobactam 03/22-03/30, BCx negative; amputation of R 5th toe done 03/28; given definitive source control, will change to PO doxy + amox-clav 03/30-04/06; discussed with ID - monitor 4th toe clinically emphysematous pyelonephritis - noted on CT A/P done to r/o obstructive uropathy. Urology consulted and recommends medical management with antibiotics, BCx negative severe anemia of CKD - FOBT negative. Transfused total 5u pRBCs this admission. Continue ferrous sulfate, epo per Nephrology folate deficiency - replete DM2 - stable blood sugar; continue ana-dose lispro HTN - amlodipine seizure disorder - no seizure-like activity noted, continue levetiracetam + valproate + phenytoin right posterior thigh abrasion/wound - per Wound Care: Off Load Pressure with Q2 hr turns and use of pillows - Cleanse with Ns moist gauze, pat dry. ?Apply thin layer of Triad to wound bed. Cover with foam dressing to aid in off loading and protection from friction. Change every 3 days and PRN. VTE ppx - compression boots dispo - plan home with VNA, needs outpt HD placement In my clinical judgment, the patient requires continued inpatient hospitalization for the following reasons: postop care, outpt HD placement Total time managing care of this patient today: 45 minutes. Quality Stroke Does the patient have a stroke diagnosis?: No VTE Prior VTE?: No VTE Risk Level:: Medical - moderate - high VTE Device Contraindication: N/A - Device Ordered VTE Drug Contraindication: N/A - Med Ordered
[2024-03-30] MEDS: Doxycycline Monohydrate 100 MG CAPSULE PO (13:04)
[2024-03-30 13:56] LABS: OBS Int Ctl Valid YES; OBS1 NEGATIVE (NEGATIVE)
[2024-03-30 16:27] LABS: Glucose, Whole Blood 158 mg/dL (60-115)
[2024-03-30] MEDS: Amoxicillin/Potassium Clav 250 MG TABLET PO (17:54)
[2024-03-30] MEDS: oxyCODONE HCl Immed Release 5 MG TABLET PO (20:26)
[2024-03-30 21:07] LABS: Glucose, Whole Blood 159 mg/dL (60-115)
[2024-03-31] MEDS: Doxycycline Monohydrate 100 MG CAPSULE PO ×2 (01:39→13:08)
[2024-03-31] MEDS: traZODone HCL 100 MG TABLET PO (01:39)
[2024-03-31] MEDS: Morphine Sulfate 2 MG/ML CARTRIDGE 1 MG IVPUSH ×2 (03:26→21:57)
[2024-03-31 03:34] VITALS: BP 169/81; PULSE 78; RESP 20; TEMP 37.1; O2SAT 98
[2024-03-31] MEDS: Amoxicillin/Potassium Clav 250 MG TABLET PO ×2 (05:00→16:00)
[2024-03-31 06:32] LABS: Hematocrit 29.9 % (37.0-47.0); Hemoglobin 9.9 g/dl (12.0-16.0); Mean Corpuscular HGB Conc 33.1 g/dl (31.0-35.0); Mean Corpuscular Hemoglobin 30.2 pg (27.0-33.0); Mean Corpuscular Volume 91.2 fL (80.0-98.0); Mean Platelet Volume 12.3 fL (9.4-12.3); Platelet Count 76 X10*3/uL (160-400); Red Blood Count 3.28 X10*6/uL (4.20-5.50); Red Cell Distribution Width 19.6 % (11.0-16.0); White Blood Count 14.4 X10*3/uL (4.8-10.8)
[2024-03-31 06:44] LABS: Anion Gap 18 (12-20); Blood Urea Nitrogen 35 mg/dL (9-16); Calcium 8.3 mg/dL (8.4-10.2); Carbon Dioxide 23 mmol/L (22-29); Chloride 102 mmol/L (96-108); Creatinine Clr Calc Pharmacy 17.5; Estimated Glomerular Filt Rate 12; Glucose Random 107 mg/dL (60-115); Potassium 3.6 mmol/L (3.3-5.1); Sodium 139 mmol/L (135-145)
[2024-03-31 07:23] LABS: Glucose, Whole Blood 104 mg/dL (60-115)
[2024-03-31 07:30] VITALS: BP 131/63; PULSE 75; RESP 16; TEMP 37.3; O2SAT 95
[2024-03-31] MEDS: oxyCODONE HCl Immed Release 5 MG TABLET PO ×2 (08:22→16:28)
[2024-03-31] MEDS: Phenytoin Sodium Extended 100 MG CAPSULE PO ×3 (08:22→21:48)
[2024-03-31] MEDS: Aspirin Enteric Coated 81 MG TABLET.DR PO (08:22)
[2024-03-31] MEDS: hydrOXYzine HCL 25 MG TABLET PO (08:22)
[2024-03-31] MEDS: levETIRAcetam 500 MG TABLET PO ×2 (08:22→21:48)
[2024-03-31] MEDS: 0.9 % Sodium Chloride Flush 3 ML SYRINGE IVFLUSH ×2 (08:23→15:59)
[2024-03-31] MEDS: Folic Acid 1 MG TABLET PO (08:23)
[2024-03-31] MEDS: Valproic Acid 250 MG CAPSULE 1000 MG PO ×2 (08:23→21:48)
[2024-03-31] MEDS: Cholecalciferol (Vitamin D3) 25 MCG TABLET 50 MCG PO (08:23)
[2024-03-31] MEDS: amLODIPine Besylate 10 MG TABLET PO (08:23)
[2024-03-31] MEDS: Ferrous Sulfate 324 MG TABLET.DR PO (08:23)
[2024-03-31] MEDS: Nystatin Powder 15 GM BOTTLE 1 APPL TOPICAL ×2 (08:24→21:52)
[2024-03-31 11:11] LABS: Glucose, Whole Blood 140 mg/dL (60-115)
[2024-03-31 11:12] VITALS: BP 142/73; PULSE 71; RESP 20; TEMP 36.9; O2SAT 96
--- NOTE | 2024-03-31 15:23 | P.PNIM_ITS ---
Subjective Subjective Date of Service: 04/01/24 Interval History: History obtained via credit advisor Complaining of right hip pain and left foot pain . Feels weak. Wants to be out of bed to chair and ambulate, at baseline ambulate only short distance with walker Review of Systems All other system reviewed and negative Physical Exam 2 Vital Signs: Vital Signs: Last Vital Signs Temp 98.5 F 03/31/24 11:12 Pulse 71 03/31/24 11:12 Resp 20 03/31/24 11:12 BP 142/73 H 03/31/24 11:12 Pulse Ox 96 03/31/24 11:12 O2 Del Method Room Air 03/31/24 11:12 O2 Flow Rate 2 03/28/24 22:29 Oxygen Flow Rate 2 03/28/24 14:15 BMI result Body Mass Index 41.8 Const: Other: Gen: in no acute distress HEENT: sclera anicteric, moist mucus membranes Neck: supple, no JVD Lungs: clear to auscultation bilaterally Heart: regular rate and rhythm, no murmurs Abd: soft, non-tender, non-distended, obese Ext: no edema Skin: warm/well-perfused, L foot with clean 5th toe amputation site, 4th toe with small area of discoloration Neuro: alert and oriented x3, no focal findings Right hip/thigh dressing in place Psych: appropriate affect Objective Data Active Medications Acetaminophen (Acetaminophen 325 Mg Tablet) 650 mg PO Q6H PRN PRN Reason: Pain, Mild 1-3,fever,headache Last Admin: 03/26/24 03:59 Dose: 650 mg Documented By: SHADE Amlodipine Besylate (Amlodipine Besylate 10 Mg Tablet) 10 mg PO DAILY [facility]; Protocol Last Admin: 03/31/24 08:23 Dose: 10 mg Documented By: STONE Amoxicillin/Clavulanate Potassium (Amoxicillin/Potassium Clav 250 Mg Tablet) 250 mg PO Q12H [facility] Last Admin: 03/31/24 05:00 Dose: 250 mg Documented By: JEVON Aspirin (Aspirin Enteric Coated 81 Mg Tablet.) 81 mg PO DAILY [facility] Last Admin: 03/31/24 08:22 Dose: 81 mg Documented By: STONE Calcium Carbonate (Calcium Carbonate 750 Mg Tab.Chew) 750 mg PO Q4H PRN PRN Reason: Heartburn Dextrose (Dextrose 50 % 25 Gm/50 Ml Syringe) 25 gm IVPUSH Q15M PRN; Protocol PRN Reason: per Hypoglycemia Standing Ord. Doxycycline Monohydrate (Doxycycline Monohydrate 100 Mg Capsule) 100 mg PO Q12H [facility] Last Admin: 03/31/24 13:08 Dose: 100 mg Documented By: STONE Ferrous Sulfate (Ferrous Sulfate 324 Mg Tablet.) 324 mg PO DAILY [facility] Last Admin: 03/31/24 08:23 Dose: 324 mg Documented By: STONE Folic Acid (Folic Acid 1 Mg Tablet) 1 mg PO DAILY [facility] Last Admin: 03/31/24 08:23 Dose: 1 mg Documented By: STONE Glucose (Glucose Gel 15 Gm Gel..Gram.) 15 gm PO Q15M PRN; Protocol PRN Reason: per Hypoglycemia Standing Ord. Hydroxyzine HCl (Hydroxyzine Hcl 25 Mg Tablet) 25 mg PO Q8H PRN PRN Reason: Anxiety Last Admin: 03/31/24 08:22 Dose: 25 mg Documented By: STONE Insulin Human Lispro (Insulin Lispro 100 Unit/Ml 3 Ml Vial) 0 unit SUBCUT QIDAS [facility]; Protocol Last Admin: 03/31/24 11:14 Dose: Not Given Documented By: STONE Non-Admin Reason: poc= 140 Levetiracetam (Levetiracetam 500 Mg Tablet) 500 mg PO BID [facility] Last Admin: 03/31/24 08:22 Dose: 500 mg Documented By: STONE Magnesium Hydroxide (Milk Of Magnesia 30 Ml Oral.Susp) 30 ml PO DAILY PRN PRN Reason: Constipation Melatonin (Melatonin 3 Mg Tablet) 6 mg PO BEDTIME PRN PRN Reason: Insomnia Last Admin: 03/27/24 21:10 Dose: 6 mg Documented By: LEROY Morphine Sulfate (Morphine Sulfate 2 Mg/Ml Cartridge) 1 mg IVPUSH Q4H PRN; Protocol PRN Reason: Pain, Severe (Pain Scale 7-10) Last Admin: 03/31/24 03:26 Dose: 1 mg Documented By: JEVON Naloxone HCl (Naloxone Hcl 0.4 Mg/Ml Vial) 0.04 mg IVPUSH Q5M PRN PRN Reason: Excessive sedation or RR < 8 Nystatin (Nystatin Powder 15 Gm Bottle) 1 appl TOPICAL BID [facility]; Protocol Last Admin: 03/31/24 08:24 Dose: 1 appl Documented By: STONE Ondansetron HCl (Ondansetron Hcl 4 Mg/2 Ml Vial) 4 mg IVPUSH Q6H PRN PRN Reason: Nausea and Vomiting Last Admin: 03/30/24 12:17 Dose: 4 mg Documented By: STONE Oxycodone HCl (Oxycodone Hcl Immed Release 5 Mg Tablet) 5 mg PO Q6H PRN PRN Reason: Pain, Moderate(Pain Scale 4-6) Last Admin: 03/31/24 08:22 Dose: 5 mg Documented By: STONE Phenytoin Sodium (Phenytoin Sodium Extended 100 Mg Capsule) 100 mg PO TID [facility] Last Admin: 03/31/24 08:22 Dose: 100 mg Documented By: STONE Senna (Sennosides 8.6 Mg Tablet) 17.2 mg PO BEDTIME PRN PRN Reason: constipation Sodium Chloride (0.9 % Sodium Chloride Flush 3 Ml Syringe) 3 ml IVFLUSH QSHIFT [facility] Last Admin: 03/31/24 08:23 Dose: 3 ml Documented By: STONE Sodium Zirconium Cyclosilicate (Sodium Zirconium Cyclosilicate 10 Gm Powd.Pack) 10 gm PO MOWEFR ON [facility] Last Admin: 03/29/24 11:55 Dose: Not Given Documented By: STONE Non-Admin Reason: Physician Held Med Trazodone HCl (Trazodone Hcl 100 Mg Tablet) 100 mg PO BEDTIME PRN PRN Reason: Sleep Last Admin: 03/31/24 01:39 Dose: 100 mg Documented By: JEVON Valproic Acid (Valproic Acid 250 Mg Capsule) 1,000 mg PO BID [facility] Last Admin: 03/31/24 08:23 Dose: 1,000 mg Documented By: STONE Vitamin D (Cholecalciferol (Vitamin D3) 25 Mcg Tablet) 50 mcg PO DAILY [facility] Last Admin: 03/31/24 08:23 Dose: 50 mcg Documented By: STONE Labs 03/31/24 05:52 03/31/24 05:52 Labs: Laboratory Results - last 24 hr 03/30/24 03/30/24 03/31/24 16:23 21:01 05:52 MCV 91.2 MCH 30.2 MCHC 33.1 RDW 19.6 H Plt Count 76 L D MPV 12.3 Absolute Nucleated RBC 0.000 Nucleated RBC % (auto) 0.0 Anion Gap 18 Estim Creat Clear Calc 17.5 Estimated GFR 12 POC Glucose 158 H 159 H Random Glucose 107 Calcium 8.3 L 03/31/24 03/31/24 07:19 11:07 MCV MCH MCHC RDW Plt Count MPV Absolute Nucleated RBC Nucleated RBC % (auto) Anion Gap Estim Creat Clear Calc Estimated GFR POC Glucose 104 140 H Random Glucose Calcium Assessment and Plan (1) Gangrene of toe of left foot: Status: Acute (2) ESRD (end stage renal disease): Status: Acute (3) Metabolic acidosis: Status: Acute Plan 68yo F with CKD5, DM2 with nephropathy, HTN, seizure disorder presenting with worsening L 5th toe gangrene,admitted for osteomyelitis/toe gangrene, found to have severe metabolic acidosis due to uremia/renal failure, severe anemia severe metabolic acidosis, resolved MICHAEL/CKD5 progressed to ESRD - status post IV bicarbonate drip, temp HD catheter placed 03/22, converted to tunnel cath 03/27, last HD 03/29 - being followed by Nephrology [[facility]]; need to confirm outpt HD placement hypoK - repleted, DC Lokelma diabetic gangrene/osteomyelitis - was on IV daptomycin + piperacillin-tazobactam 03/22-03/30, BCx negative; amputation of R 5th toe done 03/28; given definitive source control, will change to PO doxy + amox-clav 03/30-04/06; discussed with ID - 4 toe small area of discoloration , monitor closely and discuss further care with surgery emphysematous pyelonephritis - noted on CT A/P done to r/o obstructive uropathy. Urology consulted and recommends medical management with antibiotics, BCx negative severe anemia of CKD - FOBT negative. Transfused total 5u pRBCs this admission. Continue ferrous sulfate, epo per Nephrology folate deficiency - continue folic acid replacement DM2 - stable blood sugar; continue ana-dose lispro HTN - amlodipine seizure disorder - no seizure-like activity noted, continue levetiracetam + valproate + phenytoin right posterior thigh abrasion/wound - per Wound Care: Off Load Pressure with Q2 hr turns and use of pillows - Cleanse with Ns moist gauze, pat dry. ?Apply thin layer of Triad to wound bed. Cover with foam dressing to aid in off loading and protection from friction. Change every 3 days and PRN. VTE ppx - compression boots dispo - plan home with VNA, will reconsult Physical therapy since patient requiring assist with transfers and ambulation, needs outpt HD placement In my clinical judgment, the patient requires continued inpatient hospitalization for the following reasons: postop care, outpt HD placement [place] Quality Stroke Does the patient have a stroke diagnosis?: No VTE Prior VTE?: No VTE Risk Level:: Medical - moderate - high VTE Device Contraindication: N/A - Device Ordered VTE Drug Contraindication: N/A - Med Ordered
[2024-03-31 15:33] VITALS: BP 128/60; PULSE 72; RESP 16; TEMP 37; O2SAT 96
[2024-03-31 16:01] LABS: Glucose, Whole Blood 124 mg/dL (60-115)
[2024-03-31 19:18] VITALS: BP 166/74; PULSE 73; RESP 16; TEMP 36.6; O2SAT 96
[2024-03-31 20:37] LABS: Glucose, Whole Blood 156 mg/dL (60-115)
[2024-03-31] MEDS: Insulin Lispro 100 UNIT/ML 3 ML VIAL SUBCUT (21:49)
[2024-03-31 23:36] VITALS: BP 170/75; PULSE 75; RESP 16; TEMP 37; O2SAT 98
[2024-04-01] VITALS (7 sets, daily range): BP systolic 144–180; BP diastolic 60–80; PULSE 74–87; RESP 16–20; TEMP 36.4–37.3; O2SAT 96–97
[2024-04-01] MEDS: Doxycycline Monohydrate 100 MG CAPSULE PO ×2 (02:35→16:12)
[2024-04-01] MEDS: Morphine Sulfate 2 MG/ML CARTRIDGE 1 MG IVPUSH ×3 (03:11→19:53)
[2024-04-01] MEDS: Amoxicillin/Potassium Clav 250 MG TABLET PO ×2 (06:03→18:07)
[2024-04-01 07:54] LABS: Glucose, Whole Blood 103 mg/dL (60-115)
[2024-04-01] MEDS: Phenytoin Sodium Extended 100 MG CAPSULE PO ×3 (09:00→19:53)
[2024-04-01] MEDS: Ferrous Sulfate 324 MG TABLET.DR PO (09:01)
[2024-04-01] MEDS: Aspirin Enteric Coated 81 MG TABLET.DR PO (09:01)
[2024-04-01] MEDS: Folic Acid 1 MG TABLET PO (09:01)
[2024-04-01] MEDS: Valproic Acid 250 MG CAPSULE 1000 MG PO ×2 (09:01→19:53)
[2024-04-01] MEDS: Cholecalciferol (Vitamin D3) 25 MCG TABLET 50 MCG PO (09:02)
[2024-04-01] MEDS: levETIRAcetam 500 MG TABLET PO ×2 (09:02→19:53)
[2024-04-01] MEDS: amLODIPine Besylate 10 MG TABLET PO (09:02)
--- NOTE | 2024-04-01 10:39 | PM.EVENT ---
Event Note Date of Service: 04/01/24 Event Note: No events reported Amputation site clean, healing well, sutures intact 4th toe with a very small area of discoloration but viable Okay to be discharged with good wound care - dry dressings daily I will see her in the office removal of sutures in about 2 weeks Time Spent With Patient Time: Total time managing care of this patient today ____ minutes.
[2024-04-01 11:30] LABS: Glucose, Whole Blood 146 mg/dL (60-115)
--- NOTE | 2024-04-01 12:45 | P.PNIM_ITS ---
Subjective Subjective Date of Service: 04/01/24 Interval History: Complaining of pain right hip, and pain dorsum of left foot, no fevers, no chills, no other acute events overnight. Review of Systems All other system reviewed and are negative. Physical Exam 2 Vital Signs: Vital Signs: Last Vital Signs Temp 99 F 04/01/24 11:59 Pulse 77 04/01/24 11:59 Resp 18 04/01/24 11:59 BP 168/60 H 04/01/24 11:59 Pulse Ox 96 04/01/24 11:59 O2 Del Method Room Air 04/01/24 11:59 O2 Flow Rate 2 03/28/24 22:29 Oxygen Flow Rate 2 03/28/24 14:15 BMI result Body Mass Index 41.8 Const: Other: Gen: in no acute distress HEENT: sclera anicteric, moist mucus membranes Neck: supple, no JVD Lungs: clear to auscultation bilaterally Heart: regular rate and rhythm, no murmurs Abd: soft, non-tender, non-distended, obese Ext: no edema Skin: warm/well-perfused, L foot with clean 5th toe amputation site, 4th toe with small area of discoloration Neuro: alert and oriented x3, no focal findings Right hip/thigh dressing in place Psych: appropriate affect Objective Data Active Medications Acetaminophen (Acetaminophen 325 Mg Tablet) 650 mg PO Q6H PRN PRN Reason: Pain, Mild 1-3,fever,headache Last Admin: 03/26/24 03:59 Dose: 650 mg Documented By: SHADE Amlodipine Besylate (Amlodipine Besylate 10 Mg Tablet) 10 mg PO DAILY [facility]; Protocol Last Admin: 04/01/24 09:02 Dose: 10 mg Documented By: MERARI Amoxicillin/Clavulanate Potassium (Amoxicillin/Potassium Clav 250 Mg Tablet) 250 mg PO Q12H [facility] Last Admin: 04/01/24 06:03 Dose: 250 mg Documented By: ELVIN Aspirin (Aspirin Enteric Coated 81 Mg Tablet.) 81 mg PO DAILY [facility] Last Admin: 04/01/24 09:01 Dose: 81 mg Documented By: MERARI Calcium Carbonate (Calcium Carbonate 750 Mg Tab.Chew) 750 mg PO Q4H PRN PRN Reason: Heartburn Dextrose (Dextrose 50 % 25 Gm/50 Ml Syringe) 25 gm IVPUSH Q15M PRN; Protocol PRN Reason: per Hypoglycemia Standing Ord. Doxycycline Monohydrate (Doxycycline Monohydrate 100 Mg Capsule) 100 mg PO Q12H [facility] Last Admin: 04/01/24 02:35 Dose: 100 mg Documented By: ELVIN Ferrous Sulfate (Ferrous Sulfate 324 Mg Tablet.) 324 mg PO DAILY [facility] Last Admin: 04/01/24 09:01 Dose: 324 mg Documented By: MERARI Folic Acid (Folic Acid 1 Mg Tablet) 1 mg PO DAILY [facility] Last Admin: 04/01/24 09:01 Dose: 1 mg Documented By: MERARI Glucose (Glucose Gel 15 Gm Gel..Gram.) 15 gm PO Q15M PRN; Protocol PRN Reason: per Hypoglycemia Standing Ord. Hydroxyzine HCl (Hydroxyzine Hcl 25 Mg Tablet) 25 mg PO Q8H PRN PRN Reason: Anxiety Last Admin: 03/31/24 08:22 Dose: 25 mg Documented By: STONE Insulin Human Lispro (Insulin Lispro 100 Unit/Ml 3 Ml Vial) 0 unit SUBCUT QIDAS [facility]; Protocol Last Admin: 04/01/24 11:56 Dose: Not Given Documented By: MERARI Non-Admin Reason: No Insulin Coverage Levetiracetam (Levetiracetam 500 Mg Tablet) 500 mg PO BID [facility] Last Admin: 04/01/24 09:02 Dose: 500 mg Documented By: MERARI Magnesium Hydroxide (Milk Of Magnesia 30 Ml Oral.Susp) 30 ml PO DAILY PRN PRN Reason: Constipation Melatonin (Melatonin 3 Mg Tablet) 6 mg PO BEDTIME PRN PRN Reason: Insomnia Last Admin: 03/27/24 21:10 Dose: 6 mg Documented By: LEROY Morphine Sulfate (Morphine Sulfate 2 Mg/Ml Cartridge) 1 mg IVPUSH Q4H PRN; Protocol PRN Reason: Pain, Severe (Pain Scale 7-10) Last Admin: 04/01/24 09:10 Dose: 1 mg Documented By: MERARI Naloxone HCl (Naloxone Hcl 0.4 Mg/Ml Vial) 0.04 mg IVPUSH Q5M PRN PRN Reason: Excessive sedation or RR < 8 Nystatin (Nystatin Powder 15 Gm Bottle) 1 appl TOPICAL BID [facility]; Protocol Last Admin: 03/31/24 21:52 Dose: 1 appl Documented By: DAKOTA Ondansetron HCl (Ondansetron Hcl 4 Mg/2 Ml Vial) 4 mg IVPUSH Q6H PRN PRN Reason: Nausea and Vomiting Last Admin: 03/30/24 12:17 Dose: 4 mg Documented By: STONE Oxycodone HCl (Oxycodone Hcl Immed Release 5 Mg Tablet) 5 mg PO Q6H PRN PRN Reason: Pain, Moderate(Pain Scale 4-6) Last Admin: 03/31/24 16:28 Dose: 5 mg Documented By: STONE Phenytoin Sodium (Phenytoin Sodium Extended 100 Mg Capsule) 100 mg PO TID [facility] Last Admin: 04/01/24 09:00 Dose: 100 mg Documented By: MERARI Senna (Sennosides 8.6 Mg Tablet) 17.2 mg PO BEDTIME PRN PRN Reason: constipation Sodium Chloride (0.9 % Sodium Chloride Flush 3 Ml Syringe) 3 ml IVFLUSH QSHIFT [facility] Last Admin: 03/31/24 15:59 Dose: 3 ml Documented By: STONE Sodium Zirconium Cyclosilicate (Sodium Zirconium Cyclosilicate 10 Gm Powd.Pack) 10 gm PO MOWEFR [facility] Last Admin: 03/29/24 11:55 Dose: Not Given Documented By: STONE Non-Admin Reason: Physician Held Med Trazodone HCl (Trazodone Hcl 100 Mg Tablet) 100 mg PO BEDTIME PRN PRN Reason: Sleep Last Admin: 03/31/24 01:39 Dose: 100 mg Documented By: JEVON Valproic Acid (Valproic Acid 250 Mg Capsule) 1,000 mg PO BID [facility] Last Admin: 04/01/24 09:01 Dose: 1,000 mg Documented By: MERARI Vitamin D (Cholecalciferol (Vitamin D3) 25 Mcg Tablet) 50 mcg PO DAILY [facility] Last Admin: 04/01/24 09:02 Dose: 50 mcg Documented By: MERARI Labs 03/31/24 05:52 03/31/24 05:52 Labs: Laboratory Results - last 24 hr 03/31/24 03/31/24 04/01/24 15:55 20:31 07:46 POC Glucose 124 H 156 H 103 04/01/24 11:19 POC Glucose 146 H Assessment and Plan (1) Pyelonephritis: Status: Acute (2) Gangrene of toe of left foot: Status: Acute (3) ESRD (end stage renal disease): Status: Acute (4) Metabolic acidosis: Status: Acute Plan 68yo F with CKD5, DM2 with nephropathy, HTN, seizure disorder presenting with worsening L 5th toe gangrene,admitted for osteomyelitis/toe gangrene, found to have severe metabolic acidosis due to uremia/renal failure, severe anemia severe metabolic acidosis, resolved MICHAEL/CKD5 progressed to ESRD - status post IV bicarbonate drip, temp HD catheter placed 03/22, converted to tunnel cath 03/27,, continue hemodialysis - being followed by Nephrology RTANE; need to confirm outpt HD placement hypoK - repleted, DC Lokelma diabetic gangrene/osteomyelitis. - was on IV daptomycin + piperacillin-tazobactam 03/22-03/30, BCx negative; amputation of R 5th toe done 03/28; given definitive source control, will change to PO doxy + amox-clav 03/30-04/06; discussed with ID - 4th toe small area of discoloration , seen by General surgery it appears viable no further treatment continue dressing change daily. 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 Urology consulted and recommends medical management with antibiotics, BCx negative severe anemia of CKD - FOBT negative. Transfused total 5u pRBCs this admission. Continue ferrous sulfate, epo per Nephrology folate deficiency- continue folic acid replacement DM2 - stable blood sugar; continue ana-dose lispro HTN - on amlodipine BP elevated will resume losartan seizure disorder - no seizure-like activity noted, continue levetiracetam + valproate + phenytoin right posterior thigh abrasion/wound - per Wound Care: Off Load Pressure with Q2 hr turns and use of pillows - Cleanse with Ns moist gauze, pat dry. ?Apply thin layer of Triad to wound bed. Cover with foam dressing to aid in off loading and protection from friction. Change every 3 days and PRN. VTE ppx - compression boots dispo - plan home with VNA, will reconsult Physical therapy since patient requiring assist with transfers and ambulation, needs outpt HD placement In my clinical judgment, the patient requires continued inpatient hospitalization for the following reasons: postop care, outpt HD placement Quality Stroke Does the patient have a stroke diagnosis?: No VTE Prior VTE?: No VTE Risk Level:: Medical - moderate - high VTE Device Contraindication: N/A - Device Ordered VTE Drug Contraindication: N/A - Med Ordered
--- NOTE | 2024-04-01 15:55 | P.PNNP_ITS ---
Subjective Subjective Date of Service: 04/01/24 Principal diagnosis: Uremia and acidosis Interval history: seen and examined on HD complains of lower extremity pain Physical Exam 2 Vital Signs: Vital Signs: Last Vital Signs Temp 99 F 04/01/24 11:59 Pulse 77 04/01/24 11:59 Resp 18 04/01/24 11:59 BP 168/60 H 04/01/24 11:59 Pulse Ox 96 04/01/24 11:59 O2 Del Method Room Air 04/01/24 11:59 O2 Flow Rate 2 03/28/24 22:29 Oxygen Flow Rate 2 03/28/24 14:15 BMI result Body Mass Index 41.8 Const: General: alert and awake Neck: Neck: Yes supple Resp: Auscultation: clear to auscultation bilaterally Cardio: Heart sounds: S1 normal heart sound present and S2 normal heart sound present GI: Palpation (GI): Soft to palpation and nontender Extrem: General: Yes edema Objective Data Labs 03/31/24 05:52 03/31/24 05:52 Labs: Laboratory Results - last 24 hr 03/31/24 03/31/24 04/01/24 15:55 20:31 07:46 POC Glucose 124 H 156 H 103 04/01/24 11:19 POC Glucose 146 H Microbiology Microbiology Results: Microbiology 03/21/24 22:30 Blood - Venous Blood Culture - Final No growth after 5 days. 03/21/24 21:31 Blood - Venous Blood Culture - Final No growth after 5 days. Procedures Date of Service Date of Service: 04/01/24 Assessment & Plan Assessment and plan (1) ESRD (end stage renal disease): Status: Acute (2) Anemia: Status: Acute Plan advanced CKD now ESRD s/p dialysis tunnelled catheter placement nephrogenic anemia REC HD today UF as tolerated renal diet P binders o/p HD being arranged Time Spent With Patient Time: Total time managing care of this patient today ____ minutes. Progress Note: Quality Stroke Does the patient have a stroke diagnosis?: No
[2024-04-01] MEDS: oxyCODONE HCl Immed Release 5 MG TABLET PO (16:13)
[2024-04-01 17:46] LABS: Glucose, Whole Blood 167 mg/dL (60-115)
[2024-04-01] MEDS: hydrOXYzine HCL 25 MG TABLET PO (19:53)
[2024-04-01] MEDS: Nystatin Powder 15 GM BOTTLE 1 APPL TOPICAL (19:57)
[2024-04-01] MEDS: 0.9 % Sodium Chloride Flush 3 ML SYRINGE IVFLUSH (19:57)
[2024-04-01 20:41] LABS: Glucose, Whole Blood 267 mg/dL (60-115)
[2024-04-01] MEDS: Insulin Lispro 100 UNIT/ML 3 ML VIAL SUBCUT (21:34)
[2024-04-02] VITALS (9 sets, daily range): BP systolic 129–160; BP diastolic 58–70; PULSE 71–90; RESP 16–18; TEMP 36.6–37.2; O2SAT 94–96
[2024-04-02] MEDS: Doxycycline Monohydrate 100 MG CAPSULE PO ×2 (00:54→11:36)
[2024-04-02] MEDS: oxyCODONE HCl Immed Release 5 MG TABLET PO ×3 (00:54→18:20)
[2024-04-02] MEDS: Amoxicillin/Potassium Clav 250 MG TABLET PO ×2 (06:20→17:09)
[2024-04-02] MEDS: Morphine Sulfate 2 MG/ML CARTRIDGE 1 MG IVPUSH ×2 (06:21→14:51)
[2024-04-02 07:44] LABS: Glucose, Whole Blood 97 mg/dL (60-115)
[2024-04-02] MEDS: amLODIPine Besylate 10 MG TABLET PO (08:29)
[2024-04-02] MEDS: Valproic Acid 250 MG CAPSULE 1000 MG PO (08:29)
[2024-04-02] MEDS: 0.9 % Sodium Chloride Flush 3 ML SYRINGE IVFLUSH ×2 (08:29→17:09)
[2024-04-02] MEDS: Folic Acid 1 MG TABLET PO (08:29)
[2024-04-02] MEDS: Ferrous Sulfate 324 MG TABLET.DR PO (08:30)
[2024-04-02] MEDS: hydrOXYzine HCL 25 MG TABLET PO (08:30)
[2024-04-02] MEDS: Phenytoin Sodium Extended 100 MG CAPSULE PO ×2 (08:30→14:51)
[2024-04-02] MEDS: levETIRAcetam 500 MG TABLET PO (08:30)
[2024-04-02] MEDS: Aspirin Enteric Coated 81 MG TABLET.DR PO (08:30)
[2024-04-02] MEDS: Cholecalciferol (Vitamin D3) 25 MCG TABLET 50 MCG PO (08:30)
[2024-04-02] MEDS: Nystatin Powder 15 GM BOTTLE 1 APPL TOPICAL (08:33)
[2024-04-02] MEDS: Losartan Potassium 50 MG TABLET PO (08:40)
[2024-04-02 11:34] LABS: Glucose, Whole Blood 166 mg/dL (60-115)
[2024-04-02] MEDS: Insulin Lispro 100 UNIT/ML 3 ML VIAL SUBCUT (11:36)
--- NOTE | 2024-04-02 11:42 | MHC.CM.PN ---
Addendum entered by Lisa Zacarias 04/02/24 15:15: Pt to DC tomorrow. Addendum entered by Lisa Zacarias 04/02/24 12:42: VNA services to be provided by [facility]. Original Note: Second IMM 04/02/24, Pt has been medically cleared for DC, she will go home via family transport and have home care services from [facility], and she will go to HD at [facility] in [facility].
--- NOTE | 2024-04-02 15:34 | HO.PM.IMPN ---
Subjective Subjective Date of Service: 04/02/24 Interval History: Persistent left leg and right hip pain. Tolerating diet no other acute events, had a bowel movement today. Seen by Physical therapy and they recommend home with home PT Review of Systems All other system reviewed and are negative Physical Exam Vital Signs: Vital Signs: Last Vital Signs Temp 98.0 F 04/02/24 15:27 Pulse 74 04/02/24 15:27 Resp 18 04/02/24 15:27 BP 129/58 L 04/02/24 15:27 Pulse Ox 96 04/02/24 15:27 O2 Del Method Room Air 04/02/24 15:27 O2 Flow Rate 2 03/28/24 22:29 Oxygen Flow Rate 2 03/28/24 14:15 BMI result Body Mass Index 41.8 Const: Other: Gen: in no acute distress HEENT: sclera anicteric, moist mucus membranes Neck: supple, no JVD Lungs: clear to auscultation bilaterally Heart: regular rate and rhythm, no murmurs Abd: soft, non-tender, non-distended, obese Ext: no edema Skin: warm/well-perfused, L foot with clean 5th toe amputation site, 4th toe with small area of discoloration, unchanged. Neuro: alert and oriented x3, no focal findings Right hip/thigh abrasion improving Psych: appropriate affect Objective Data Active Medications Acetaminophen (Acetaminophen 325 Mg Tablet) 650 mg PO Q6H PRN PRN Reason: Pain, Mild 1-3,fever,headache Last Admin: 03/26/24 03:59 Dose: 650 mg Documented By: SHADE Amlodipine Besylate (Amlodipine Besylate 10 Mg Tablet) 10 mg PO DAILY [facility]; Protocol Last Admin: 04/02/24 08:29 Dose: 10 mg Documented By: DOC Amoxicillin/Clavulanate Potassium (Amoxicillin/Potassium Clav 250 Mg Tablet) 250 mg PO Q12H [facility] Last Admin: 04/02/24 06:20 Dose: 250 mg Documented By: ANTOIC Aspirin (Aspirin Enteric Coated 81 Mg Tablet.) 81 mg PO DAILY [facility] Last Admin: 04/02/24 08:30 Dose: 81 mg Documented By: ODC Calcium Carbonate (Calcium Carbonate 750 Mg Tab.Chew) 750 mg PO Q4H PRN PRN Reason: Heartburn Dextrose (Dextrose 50 % 25 Gm/50 Ml Syringe) 25 gm IVPUSH Q15M PRN; Protocol PRN Reason: per Hypoglycemia Standing Ord. Doxycycline Monohydrate (Doxycycline Monohydrate 100 Mg Capsule) 100 mg PO Q12H [facility] Last Admin: 04/02/24 11:36 Dose: 100 mg Documented By: DOC Ferrous Sulfate (Ferrous Sulfate 324 Mg Tablet.) 324 mg PO DAILY [facility] Last Admin: 04/02/24 08:30 Dose: 324 mg Documented By: DOC Folic Acid (Folic Acid 1 Mg Tablet) 1 mg PO DAILY [facility] Last Admin: 04/02/24 08:29 Dose: 1 mg Documented By: LAISHAING Glucose (Glucose Gel 15 Gm Gel..Gram.) 15 gm PO Q15M PRN; Protocol PRN Reason: per Hypoglycemia Standing Ord. Hydroxyzine HCl (Hydroxyzine Hcl 25 Mg Tablet) 25 mg PO Q8H PRN PRN Reason: Anxiety Last Admin: 04/02/24 08:30 Dose: 25 mg Documented By: DOC Insulin Human Lispro (Insulin Lispro 100 Unit/Ml 3 Ml Vial) 0 unit SUBCUT QIDACHS [facility]; Protocol Last Admin: 04/02/24 11:36 Dose: 2 unit Documented By: LAISHAING Levetiracetam (Levetiracetam 500 Mg Tablet) 500 mg PO BID [facility] Last Admin: 04/02/24 08:30 Dose: 500 mg Documented By: LAISHAING Losartan Potassium (Losartan Potassium 50 Mg Tablet) 50 mg PO DAILY [facility]; Protocol Last Admin: 04/02/24 08:40 Dose: 50 mg Documented By: DOC Magnesium Hydroxide (Milk Of Magnesia 30 Ml Oral.Susp) 30 ml PO DAILY PRN PRN Reason: Constipation Melatonin (Melatonin 3 Mg Tablet) 6 mg PO BEDTIME PRN PRN Reason: Insomnia Last Admin: 03/27/24 21:10 Dose: 6 mg Documented By: BLANKAAZ Naloxone HCl (Naloxone Hcl 0.4 Mg/Ml Vial) 0.04 mg IVPUSH Q5M PRN PRN Reason: Excessive sedation or RR < 8 Nystatin (Nystatin Powder 15 Gm Bottle) 1 appl TOPICAL BID [facility]; Protocol Last Admin: 04/02/24 08:33 Dose: 1 appl Documented By: DOC Ondansetron HCl (Ondansetron Hcl 4 Mg/2 Ml Vial) 4 mg IVPUSH Q6H PRN PRN Reason: Nausea and Vomiting Last Admin: 03/30/24 12:17 Dose: 4 mg Documented By: STONE Oxycodone HCl (Oxycodone Hcl Immed Release 5 Mg Tablet) 5 mg PO Q6H PRN PRN Reason: Pain, Moderate(Pain Scale 4-6) Last Admin: 04/02/24 08:30 Dose: 5 mg Documented By: DOC Phenytoin Sodium (Phenytoin Sodium Extended 100 Mg Capsule) 100 mg PO TID [facility] Last Admin: 04/02/24 14:51 Dose: 100 mg Documented By: DOC Senna (Sennosides 8.6 Mg Tablet) 17.2 mg PO BEDTIME PRN PRN Reason: constipation Sodium Chloride (0.9 % Sodium Chloride Flush 3 Ml Syringe) 3 ml IVFLUSH QSHIFT [facility] Last Admin: 04/02/24 08:29 Dose: 3 ml Documented By: DOC Sodium Zirconium Cyclosilicate (Sodium Zirconium Cyclosilicate 10 Gm Powd.Pack) 10 gm PO MOWEFR [facility] Last Admin: 03/29/24 11:55 Dose: Not Given Documented By: STONE Non-Admin Reason: Physician Held Med Trazodone HCl (Trazodone Hcl 100 Mg Tablet) 100 mg PO BEDTIME PRN PRN Reason: Sleep Last Admin: 03/31/24 01:39 Dose: 100 mg Documented By: JEVON Valproic Acid (Valproic Acid 250 Mg Capsule) 1,000 mg PO BID [facility] Last Admin: 04/02/24 08:29 Dose: 1,000 mg Documented By: DOC Vitamin D (Cholecalciferol (Vitamin D3) 25 Mcg Tablet) 50 mcg PO DAILY [facility] Last Admin: 04/02/24 08:30 Dose: 50 mcg Documented By: DOC Labs 03/31/24 05:52 03/31/24 05:52 Labs: Laboratory Results - last 24 hr 04/01/24 04/01/24 04/02/24 17:41 20:37 07:14 POC Glucose 167 H 267 H 97 04/02/24 11:11 POC Glucose 166 H Assessment and Plan (1) Pyelonephritis: Status: Acute (2) Gangrene of toe of left foot: Status: Acute (3) ESRD (end stage renal disease): Status: Acute (4) Metabolic acidosis: Status: Acute Plan 68yo F with CKD5, DM2 with nephropathy, HTN, seizure disorder presenting with worsening L 5th toe gangrene,admitted for osteomyelitis/toe gangrene, found to have severe metabolic acidosis due to uremia/renal failure, severe anemia severe metabolic acidosis, resolved MICHAEL/CKD5 progressed to ESRD - status post IV bicarbonate drip, temp HD catheter placed 03/22, converted to tunnel cath 03/27,, continue hemodialysis - being followed by Nephrology ALICENE; outpt HD spot arranged at [facility] Monday by Nephrology eneK - repleted, OSWALDO Nguyen diabetic gangrene/osteomyelitis. - was on IV daptomycin + piperacillin-tazobactam 03/22-03/30, BCx negative; amputation of R 5th toe done 03/28; given definitive source control, will change to PO doxy + amox-clav 03/30-04/06; discussed with ID - 4th toe small area of discoloration , seen by General surgery it appears viable no further treatment continue dressing change daily. 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 Urology consulted and recommends medical management with antibiotics, BCx negative severe anemia of CKD - FOBT negative. Transfused total 5u pRBCs this admission. Continue ferrous sulfate, epo per Nephrology folate deficiency- continue folic acid replacement DM2 - stable blood sugar; continue ana-dose lispro HTN - on amlodipine and losartan 50 mg,( home dose 100 mg b.i.d.), and DC Lasix, follow BP seizure disorder - no seizure-like activity noted, continue levetiracetam + valproate + phenytoin right posterior thigh abrasion/wound - per Wound Care: Off Load Pressure with Q2 hr turns and use of pillows - Cleanse with Ns moist gauze, pat dry. ?Apply thin layer of Triad to wound bed. Cover with foam dressing to aid in off loading and protection from friction. Change every 3 days and PRN. VTE ppx - compression boots dispo - plan home with VNA In my clinical judgment, the patient requires continued inpatient hospitalization for managing above issues and for Safe disposition Quality Stroke Does the patient have a stroke diagnosis?: No VTE Prior VTE?: No VTE Risk Level:: Medical - moderate - high VTE Device Contraindication: N/A - Device Ordered VTE Drug Contraindication: N/A - Med Ordered
[2024-04-02 16:23] LABS: Glucose, Whole Blood 150 mg/dL (60-115)
[2024-04-02 20:53] LABS: Glucose, Whole Blood 141 mg/dL (60-115)
[2024-04-02 21:17] LABS: Glucose, Whole Blood 142 mg/dL (60-115)
[2024-04-03] MEDS: Valproic Acid 250 MG CAPSULE 1000 MG PO ×2 (01:33→09:18)
[2024-04-03] MEDS: levETIRAcetam 500 MG TABLET PO ×2 (01:34→09:18)
[2024-04-03] MEDS: Phenytoin Sodium Extended 100 MG CAPSULE PO ×3 (01:34→14:58)
[2024-04-03] MEDS: Doxycycline Monohydrate 100 MG CAPSULE PO ×2 (01:34→14:58)
[2024-04-03] MEDS: 0.9 % Sodium Chloride Flush 3 ML SYRINGE IVFLUSH (01:34)
[2024-04-03 04:00] VITALS: BP 152/72; PULSE 90; RESP 20; TEMP 36.4; O2SAT 98
[2024-04-03] MEDS: oxyCODONE HCl Immed Release 5 MG TABLET PO ×2 (05:36→09:44)
[2024-04-03] MEDS: Amoxicillin/Potassium Clav 250 MG TABLET PO (05:36)
[2024-04-03 07:37] VITALS: BP 163/66; PULSE 68; RESP 16; TEMP 36.5; O2SAT 98
[2024-04-03 07:54] LABS: Glucose, Whole Blood 120 mg/dL (60-115)
[2024-04-03 08:41] LABS: Cholesterol 130 mg/dL (<200); HDL Cholesterol 31 mg/dL (>40); LDL Cholesterol Calculated 77 mg/dL (<100); Triglycerides 111 mg/dL (<150)
[2024-04-03] MEDS: Losartan Potassium 50 MG TABLET PO (09:17)
[2024-04-03] MEDS: Ferrous Sulfate 324 MG TABLET.DR PO (09:18)
[2024-04-03] MEDS: amLODIPine Besylate 10 MG TABLET PO (09:18)
[2024-04-03] MEDS: Aspirin Enteric Coated 81 MG TABLET.DR PO (09:18)
[2024-04-03] MEDS: Folic Acid 1 MG TABLET PO (09:18)
[2024-04-03] MEDS: Cholecalciferol (Vitamin D3) 25 MCG TABLET 50 MCG PO (09:18)
--- NOTE | 2024-04-03 09:37 | PC.NURSE ---
pt c/o 11/22 b/l LE pain after standing and getting back into bed. ? MD'ed to administer prn pain med early or adjust pain meds. director call center sales at bedside for assessment with this RN and MD
[2024-04-03] MEDS: hydrOXYzine HCL 25 MG TABLET PO (09:45)
[2024-04-03] MEDS: Acetaminophen 325 MG TABLET 650 MG PO ×2 (09:45→16:07)
--- NOTE | 2024-04-03 11:22 | PM.DS ---
DS: Providers Provider Date of Service: 04/03/24 Date of admission: 03/22/24 02:03 Date of discharge: 04/03/24 Primary care physician: Lucrecia Teixeira MD Consults: 03/22/24 05:43 Consult to Infectious Diseases [place]ine [place]ing [place] [facility] [place] [facility] Reason for consultation: Left small toe osteomyeliti Has provider been notified: No 03/22/24 08:00 Consult to General Surgery Routine Consulting Provider[place] [facility] [place] [facility] Reason for consultation: osteomyelitis, gangrene Consult to Nephrology Routine Consulting Provider: [facility] Reason for consultation: MICHAEL/CKD 03/22/24 23:31 Consult to Urology Routine Consulting Provider[place] [facility] [place] [facility] Reason for consultation: concerns for EMP on CT Scan Has provider been notified: Yes 03/25/24 09:46 Consult to Wound Care Routine Reason for consultation: Skin tear to L buttock crease 03/29/24 13:46 Consult to Infectious Diseases Stat Consulting Provider[place] [facility] [place] [facility] Reason for consultation: DAPTOMYCIN DS: Diagnosis Discharge Diagnosis (1) Pyelonephritis: Status: Acute (2) Gangrene of toe of left foot: Status: Acute (3) ESRD (end stage renal disease): Status: Acute (4) Metabolic acidosis: Status: Acute DS: Summary Hospital Course Hospital Course: History of presenting illness: Date of Service: 03/22/24 Attending physician on admission: Gustavo Norwood Chief Complaint: Infected left small toe Patient is a 68-year-old female with past medical history of type 2 diabetes mellitus, stage IV CKD, hypertension, recurrent seizures, and nephrolithiasis who presented to the emergency room from home accompanied by her daughter for evaluation of an infected left small toe. Most of this information is obtained from the emergency room provider as patient is not good historian and her daughter has already left the emergency room and was difficult to reach her. Apparently her daughter noted that patient's left small toe was discolored / black today, had malodorous discharge and was painful to touch. She stated that this started with a mild redness after patient clipped her nails 5-6 days ago. Today, she started complaining of generalized malaise but denied any fevers, chills, chest pain or shortness of breath. On arrival to the emergency room she was noted to have stable vital signs. Blood work done revealed a leukocytosis of 15.9 K with 83% neutrophils. She had elevated inflammatory markers with ESR of >140 and CRP of 9.58. A serum calcium was low at 7.1 and was mildly acidotic with a serum bicarbonate of 17. A chest x-ray done was clear but plain x-rays of the left foot had findings that were concerning of possible 5th proximal phalanx fracture or an destructive / erosive process (osteomyelitis). She received intravenous vancomycin and Zosyn following which admission was requested for continued care. When I got to see her, she was awake, alert and comfortable and had no additional complains (even though she is purely speaking and not a very good historian). Hospital course: 68yo F with CKD5, DM2 with nephropathy, HTN, seizure disorder presenting with worsening L 5th toe gangrene,admitted for osteomyelitis/toe gangrene, found to have severe metabolic acidosis due to uremia/renal failure, severe anemia Admitted with Severe metabolic acidosis, MICHAEL/CKD5 progressed to ESRD, treated with IV bicarbonate drip, temp HD catheter placed 03/22, converted to tunnel cath 03/27, and continue on hemodialysis Monday Was followed closely by Nephrology, outpt HD spot arranged at [facility] for Monday hemodialysis by Nephrology, noted to have mild hypokalemia repleted, home dose of Lokelma discontinued. 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 Initially treated with IV daptomycin + piperacillin-tazobactam 03/22-03/30, BCx negative; amputation of L 5th toe done 03/28; given definitive source control, antibiotics changed to PO doxy + amox-clav 03/30-04/06; recommend daily dry dressing and outpatient follow-up with General surgery noted to have a small area of discoloration 4th toe, otherwise toe looks viable. Emphysematous pyelonephritis - noted on CT abdomen and pelvis done to r/o obstructive uropathy. Urology consulted and recommends medical management, finished course of antibiotics, BCx negative Severe anemia of CKD - FOBT negative,transfused total 5u pRBCs this admission, Continue ferrous sulfate, epo per Nephrology. Folate deficiency- continue folic acid replacement. DM2 - stable blood sugar, hemoglobin A1c 5.3 recommend to lower dose of Lantus 10 units daily and continue correction dose lispro. HTN - continue amlodipine and losartan, Lasix discontinued since started on hemodialysis follow BP and as outpatient and adjust medication as per Nephrology Seizure disorder - no seizure-like activity noted, continue levetiracetam + valproate + phenytoin right posterior thigh abrasion/wound - per Wound Care: Off Load Pressure with Q2 hr turns and use of pillows - Cleanse with Ns moist gauze, pat dry. ?Apply thin layer of Triad to wound bed. Cover with foam dressing to aid in off loading and protection from friction. Change every 3 days and PRN. Time Attestation Discharge Coordination Time (in mins): 40 Quality: Safe Use of Opioids Does Pt have an Active Cancer Diagnosis on the Problem List?: No Quality: Stroke Does the patient have a stroke diagnosis?: No Physical Exam Vital Signs: Vital Signs: Last Vital Signs Temp 97.7 F 04/03/24 07:37 Pulse 68 04/03/24 07:37 Resp 16 04/03/24 07:37 BP 163/66 H 04/03/24 07:37 Pulse Ox 98 04/03/24 07:37 O2 Del Method Room Air 04/03/24 07:37 O2 Flow Rate 2 03/28/24 22:29 Oxygen Flow Rate 2 03/28/24 14:15 BMI result Body Mass Index 41.8 Const: Other: Gen: in no acute distress HEENT: sclera anicteric, moist mucus membranes Neck: supple, no JVD Lungs: clear to auscultation bilaterally Heart: regular rate and rhythm, no murmurs Abd: soft, non-tender, non-distended, obese Ext: no edema Skin: warm/well-perfused, L foot with clean 5th toe amputation site, 4th toe with small area of discoloration, unchanged. Neuro: alert and oriented x3, no focal findings Right hip/thigh abrasion improving Psych: appropriate affect DS: Data Data Completed and Pending Completed studies during hospitalization [Text1]: Procedures Dilation of Right Ureter with Intraluminal Device, Via Natural or Artificial Opening Endoscopic (05/29/22) Extirpation of Matter from Right Ureter, Via Natural or Artificial Opening Endoscopic (05/29/22) Fluoroscopy of Right Kidney, Ureter and Bladder (10/02/21) Fluoroscopy of Right Kidney, Ureter and Bladder using Low Osmolar Contrast (04/16/23) Insertion of Infusion Device into Right Basilic Vein, Percutaneous Approach (10/27/23) Introduction of Remdesivir Anti-infective into Peripheral Vein, Percutaneous Approach, [employer] (03/28/20) Transfusion of Nonautologous Red Blood Cells into Peripheral Vein, Percutaneous Approach (10/27/23) Pending studies at discharge: Pending at discharge 03/28/24 14:50 Surgical [PTH] Routine Labs on day of discharge: Laboratory Results - last 24 hr 04/02/24 04/02/24 04/02/24 11:11 16:14 20:45 POC Glucose 166 H 150 H 141 H Triglycerides Cholesterol LDL Cholesterol, Calc HDL Cholesterol 04/02/24 04/03/24 04/03/24 21:11 07:13 07:47 POC Glucose 142 H 120 H Triglycerides 111 Cholesterol 130 LDL Cholesterol, Calc 77 HDL Cholesterol 31 L Discharge Plan Discharge Anticipated Discharge Date/Time: 04/03/24 10:55 Patient Disposition: Home Health Service Discharge Diagnosis: Acute on chronic kidney disease stage 5 progressed to end-stage renal disease. Diabetic gangrene left 5th toe Referrals: Lucrecia Teixeira MD [Primary Care Provider] - 1 Week Discharge Medications: New folic acid 1 mg Tablet 1 mg PO DAILY Qty: 90 0RF doxycycline monohydrate 100 mg Capsule 100 mg PO Q12H Qty: 7 0RF amoxicillin-pot clavulanate 250-125 mg Tablet 1 tab PO Q12H Qty: 7 0RF Continued (DME) FreeStyle Lite Strips Strip MISCELLANEOUS QID (DME) blood-glucose meter [FreeStyle [place] Lite] Kit MISCELLANEOUS BID (DME) lancets [FreeStyle Lancets] 28 gauge misc 1 gauge topical BID omeprazole 40 mg capsule,delayed release(DR/EC) 40 mg PO BID@0630,1630 atorvastatin 80 mg tablet 80 mg PO DAILY aspirin 81 mg tablet,delayed release (DR/EC) 81 mg PO DAILY amlodipine 10 mg tablet 10 mg PO DAILY Fiasp FlexTouch U-100 Insulin 100 unit/mL (3 mL) insulin pen 6 - 8 unit subcut TID levetiracetam 500 mg Tablet 500 mg PO BID Qty: 60 2RF phenytoin sodium extended [Dilantin Extended] 100 mg Capsule 100 mg PO TID Qty: 90 2RF ferrous gluconate 324 mg (38 mg iron) tablet 324 mg PO DAILY cholecalciferol (vitamin D3) 50 mcg (2,000 unit) Tablet 50 mcg PO DAILY valproic acid 250 mg capsule 1,000 mg PO BID acetaminophen 650 mg tablet extended release 650 mg PO Q8H PRN (Reason: mild pain) losartan 100 mg tablet 100 mg PO BID diclofenac sodium 1 % gel 2 g topical BEDTIME PRN (Reason: Pain) Rx Instructions: APPLY 2 GRAMS TOPICALLY TO FEET AT BEDTIME NEEDED (DME) blood pressure test kit-large Kit See Rx Instructions .ROUTE DAILY Qty: 1 Rx Instructions: As directed (DME) nebulizers Misc See Rx Instructions .Route Rx Instructions: As directed trazodone 50 mg tablet 100 mg PO BEDTIME PRN (Reason: Sleep) (DME) lancets [TRUEplus Lancets] 33 gauge misc See Rx Instructions .ROUTE BID Qty: 100 Rx Instructions: As directed Changed insulin glargine [Basaglar KwikPen U-100 Insulin] 100 unit/mL (3 mL) insulin pen 10 unit subcut DAILY Qty: 15 1RF Discontinued furosemide 40 mg tablet 80 mg PO BID Lokelma 10 gram Powder In Packet 10 g PO MOWEFR Qty: 30 0RF Discharge Orders: Discharge Order (Routine); Ordered 04/03/24 Ordered By: Chaya Rodriguez Diet: Diabetic diet Activity on Discharge: As tolerated Stand Alone Forms: Patient Portal Discharge page Print Language: Slovenian Care Plan Goals: take antibiotics Augmentin and doxycycline as ordered for foot infection Continue daily dressing to foot and right hip Being discharged with [facility] services. Right posterior thigh/hip dressin. Turn and Reposition every 2 hours and as needed for patient comfort.? Use pillows or wedges to support off loading positions. 2. Off Load all bony prominences with use of pillows and heel boots if needed.? Apply Preventative foams where needed. ? 3. Monitor for incontinence and moisture control, use barrier creams when needed for prevention and treatment. 4. Provide adequate and supplemental nutrition.? 5. Order low air loss mattress. 6. When applicable maintain blood glucose levels per Providers order. 7. Skin Folds - Cleanse with PH balance wipes, pat dry with soft cloth.? Apply antifungal power to assist with moisture management.? Be sure to dust of excess powder to prevent caking on skin and in folds. Apply per provider orders. Tuck Interdry AG Sheet into skin fold to wick and translocate moisture away from skin fold.? Be sure to leave at least 2 inch of fabric exposed outside of skin fold.? Change after 5 days or when soiled. 8. right Posterior thigh / Hip - Off Load Pressure with Q2 hr turns and use of pillows - Cleanse with Ns moist gauze, pat dry. ?Apply thin layer of Triad to wound bed. Cover with foam dressing to aid in off loading and protection from friction. Change every 3 days and PRN. 9. Left 5th Toe - Continue Betadine application - defer to providers. Continue dry dressing to left toe amputation site. Health Concerns: Diabetes mellitus stable blood sugars, follow diabetic diet Take Lantus 10 units at a.m. and follow insulin sliding scale Plan of Treatment: Outpatient follow-up with General surgery Dr. Vines in 1 week Outpatient continued hemodialysis on Wednesdays and Fridays Follow-up with tomato pulper operator Dr. Meehan/Dr. Mac/Dr. Sales Follow-up with [facility] as previously planned. Assessment: As above
[2024-04-03 11:23] LABS: Glucose, Whole Blood 141 mg/dL (60-115)
--- NOTE | 2024-04-03 11:38 | MHC.CLN ---
NUTRITION DAUGHTER NOT IN AT TIME OF VISIT. LEFT DIABETIC DIET EDUCATION MATERIALS IN [place] [employer].
--- NOTE | 2024-04-03 12:18 | P.F2F_ITS ---
Service Date Service Date: 04/03/24 Encounter Date of encounter: 04/03/24 Reasons for Services Signs and symptoms assessed: End-stage renal disease new to hemodialysis/diabetes mellitus/left 5th toe amputation Reason for intermediate: wound care, diabetic teaching and medication management Reason for physical therapy: home safety and mobility Homebound: Leaving the home is medically contraindicated at this time without the asist of a device and/or another person due th the listed conditions above and below. Reason homebound: pain with transfers and weakness related to hospital stay Certification: Based on the above findings, I certify that this patient is confined to the home and needs intermittent intermediate care, physical therapy and/or speech therapy, or continues to need occupational therapy. The patient is under my ca re, and I have initiated the establishment of the plan of care. The patient will be followed by a physician who will periodically review the plan of care. Time Spent With Patient Time: Total time managing care of this patient today ____ minutes.
--- NOTE | 2024-04-03 14:58 | MHC.CM.PN ---
CM spoke to pt.'s dtr. on 04/02/24 along with an care management associate. Dtr. said she needed a few more days to prepare for her mother to come home. The pt. was ready to DC, agreed DC to be today, Dtr. said she will pick her mother up to bring her home today. [facility] will provide home care services.
[2024-04-03 15:55] VITALS: BP 141/67; PULSE 78; RESP 19; TEMP 36.4; O2SAT 98
[2024-04-03 16:02] LABS: Glucose, Whole Blood 122 mg/dL (60-115)
== END 2024-04-03 16:34 | disposition home health service (06) | DRG 255 ==
LOC: HO.ED 03-22 01:41 → HO.EDOVER 03-22 02:14 → HO.IMC 03-22 11:39
PROVIDERS: Family Medicine; Internal Medicine Nephrology; Physician Assistant Surgical; Radiology Vascular & Interventional Radiology; Surgery; Admitting Provider Internal Medicine; Emergency Provider Emergency Medicine; PCP General Practice; Visit Provider Hospitalist
PROC: 0Y6Y0Z0 Detachment at Left 5th Toe, Complete, Open Approach (ICD-10-PCS; principal; 2024-03-28 14:00)
DX: E11.52 Type 2 diabetes mellitus with diabetic peripheral angiopathy with gangrene (principal); N18.6 End stage renal disease; M86.172 Other acute osteomyelitis, left ankle and foot; I12.0 Hypertensive chronic kidney disease with stage 5 chronic kidney disease or end stage renal disease; N17.9 Acute kidney failure, unspecified; E87.20 Acidosis, unspecified; E11.22 Type 2 diabetes mellitus with diabetic chronic kidney disease; E11.621 Type 2 diabetes mellitus with foot ulcer; L97.529 Non-pressure chronic ulcer of other part of left foot with unspecified severity; E53.8 Deficiency of other specified B group vitamins; E11.69 Type 2 diabetes mellitus with other specified complication; D63.1 Anemia in chronic kidney disease; G40.909 Epilepsy, unspecified, not intractable, without status epilepticus; E78.5 Hyperlipidemia, unspecified; Z99.2 Dependence on renal dialysis; Z79.4 Long term (current) use of insulin; Z79.82 Long term (current) use of aspirin; Z79.899 Other long term (current) drug therapy
CPT/HCPCS: 36415; 36556; 36558; 71045; 73630; 74176; 76937; 80048; 80061; 80076; 82272; 82607; 82728; 82746; 82803; 82947; 83036; 83540; 83605; 83735; 83880; 85025; 85027; 85610; 85652; 85730; 86140; 86704; 86706; 86850; 86900; 86901; 86923; 87040; 87340; 88305; 88311; 90999; 93005; 97116; 97163; 99285; C1750; C1752; C1769; C1894; J0690; J0878; J1100; J1171; J2003; J2060; J2270; J2405; J2543; J2704; J2795; J3010; J3370; P9016

== ENCOUNTER → 2024-03-21 21:18 | Outpatient (BNV) | payer MEDICARE, MEDICAID, SELFPAY | PROVIDERS: Emergency Provider Emergency Medicine; Visit Provider Radiology Diagnostic Radiology | DX: R53.83 Other fatigue (principal); L97.523 Non-pressure chronic ulcer of other part of left foot with necrosis of muscle | CPT/HCPCS: 71045; 73630 ==

== ENCOUNTER 2024-03-22 02:03 | Outpatient (BNV) | payer MEDICARE, MEDICAID, SELFPAY | END 2024-03-27 13:00 | PROVIDERS: Admitting Provider Internal Medicine; Emergency Provider Emergency Medicine; PCP General Practice; Visit Provider Physician Assistant Surgical | DX: N18.6 End stage renal disease (principal) | CPT/HCPCS: 36558; 76937 ==

== ENCOUNTER 2024-03-22 02:03 | Outpatient (BNV) | payer MEDICARE, MEDICAID, SELFPAY | END 2024-03-22 12:54 | PROVIDERS: Admitting Provider Internal Medicine; Emergency Provider Emergency Medicine; PCP General Practice; Visit Provider Internal Medicine Cardiovascular Disease | DX: A41.9 Sepsis, unspecified organism (principal) | CPT/HCPCS: 93010 ==

== ENCOUNTER → 2024-03-22 02:03 | Outpatient (BNV) | payer MEDICARE, MEDICAID, SELFPAY | PROVIDERS: Admitting Provider Internal Medicine; Emergency Provider Emergency Medicine; PCP General Practice; Visit Provider Physician Assistant Surgical | DX: N18.6 End stage renal disease (principal) | CPT/HCPCS: 36556; 76937 ==

== ENCOUNTER → 2024-03-22 02:03 | Outpatient (BNV) | payer MEDICARE, MEDICAID, SELFPAY | PROVIDERS: Admitting Provider Internal Medicine; Emergency Provider Emergency Medicine; PCP General Practice; Visit Provider Internal Medicine | DX: I96 Gangrene, not elsewhere classified (principal) | CPT/HCPCS: 99222 ==

== ENCOUNTER → 2024-03-22 02:03 | Outpatient (BNV) | payer MEDICARE, MEDICAID, SELFPAY | PROVIDERS: Admitting Provider Internal Medicine; Emergency Provider Emergency Medicine; PCP General Practice; Visit Provider Surgery | DX: I96 Gangrene, not elsewhere classified (principal) | CPT/HCPCS: 99222; 99232 ==

== ENCOUNTER → 2024-03-22 02:03 | Outpatient (BNV) | payer MEDICARE, MEDICAID, SELFPAY | PROVIDERS: Admitting Provider Internal Medicine; Emergency Provider Emergency Medicine; Visit Provider Internal Medicine | DX: E11.628 Type 2 diabetes mellitus with other skin complications (principal); L08.9 Local infection of the skin and subcutaneous tissue, unspecified | CPT/HCPCS: 99223; 99232; 99499 ==

== ENCOUNTER 2024-04-07 22:21 | Inpatient (IN) | payer MEDICARE, MEDICAID, SELFPAY ==
--- NOTE | ~2024-04-07 | XR_ITS ---
CLINICAL HISTORY: trauma 3 view, pelvis and right hip Comparison: None Findings: Deformity of the proximal right femur appears old/chronic. No acute or displaced fracture. Calcific tendinitis given noted adjacent to right greater trochanter. Mild pelvis deformities appear old chronic. [id number] osteoarthritis of both hips. Vascular calcifications are redemonstrated. IMPRESSION: 1. No acute fracture or dislocation. 2. Osteoarthritis of the both hips noted This document has been electronically signed by: Suman Berger MD on 04/08/2024 01:36:41
--- NOTE | ~2024-04-07 | XR_ITS ---
CLINICAL HISTORY: infection recent amputation 5th dig 3 view left foot Comparison: X-rays of the right foot from 03/21/2024 Findings: New post amputation changes across the distal 5th metatarsal. Soft tissue swelling is nonspecific and increased of the forefoot. Osteoarthritis is multifocal. Soft tissue gas concerning for ulceration including distally in the superficial to remaining 5th ray. Vascular calcifications noted. Small effusion of the ankle. No dislocation of the imaged remaining foot. No radiopaque retained foreign body. IMPRESSION: 1. Soft tissue gas concerning for distal ulceration laterally of the remaining foot. 2. Post amputation change of the 5th metatarsal is distal and new when compared to 03/21/2024. This document has been electronically signed by: Suman Berger MD on 04/08/2024 01:39:39
[2024-04-07 22:26] VITALS: BP 136/66; PULSE 72; O2SAT 100
[2024-04-07 22:48] VITALS: BP 152/51; PULSE 70; RESP 16; TEMP 36.7; O2SAT 100; BMI 32.0
--- NOTE | 2024-04-07 23:05 | ED.GENADULT ---
HPI - General Adult General Chief complaint: Extremity Injury, Lower Stated complaint: lft ft toe injury Time Seen by Provider: 04/07/24 22:37 Source: patient and family Limitations: no limitations, language barrier and other (poor historian) History of Present Illness ED Provider: Elo Neves PA-C HPI narrative: 68-year-old female with a history of diabetes, end-stage renal disease on dialysis Monday, prior osteomyelitis and gangrene of the left 5th digit now status post amputation March [address] Vines, presents with concern for infected surgical site. Patient has VNA services to the home, the family was advised if there was any discoloration, or drainage from the incision site, they should seek medical attention. Patient denies fever. Patient also states she fell several weeks ago, never had x-rays of the right hip, she sustained an abrasion during the fall. Patient has been ambulatory since the fall. She uses a walker at baseline. Related Data Home Medications ?Medication ?Instructions ?Recorded ?Confirmed blood sugar diagnostic (FreeStyle 03/28/20 09/09/22 Lite Strips) blood-glucose meter (FreeStyle 03/28/20 09/09/22 [place] Lite kit) lancets 28 gauge (FreeStyle 03/28/20 09/09/22 Lancets) omeprazole 40 mg capsule,delayed 40 mg PO BID@0630,1630 10/02/21 03/22/24 release blood pressure test kit-large #1 ea 10/12/21 09/09/22 atorvastatin 80 mg tablet 80 mg PO DAILY 12/20/21 03/22/24 nebulizers 01/20/22 09/09/22 amlodipine 10 mg tablet 10 mg PO DAILY 05/29/22 03/22/24 aspirin 81 mg tablet,delayed 81 mg PO DAILY 05/29/22 03/22/24 release lancets 33 gauge (TRUEplus Lancets) #100 ea 06/07/22 09/09/22 trazodone 50 mg tablet 100 mg PO BEDTIME PRN Sleep 06/07/22 03/22/24 cholecalciferol (vitamin D3) 50 50 mcg PO DAILY 11/24/22 03/22/24 mcg (2,000 unit) tablet ferrous gluconate 324 mg (38 mg 324 mg PO DAILY 11/24/22 03/22/24 iron) tablet insulin aspart 6 - 8 unit subcut TID 10/27/23 03/22/24 (niacinamide)(U-100) 100 unit/mL(3 mL) subcutaneous pen (Fiasp FlexTouch U-100 Insulin) acetaminophen 650 mg 650 mg PO Q8H PRN mild pain 03/22/24 03/22/24 tablet,extended release diclofenac sodium 1 % topical gel 2 g topical BEDTIME PRN Pain 03/22/24 03/22/24 losartan 100 mg tablet 100 mg PO BID 03/22/24 03/22/24 valproic acid 250 mg capsule 1,000 mg PO BID 03/22/24 03/22/24 Previous Rx's ?Medication ?Instructions ?Recorded levetiracetam 500 mg tablet 500 mg PO BID #60 tabs 11/03/23 phenytoin sodium extended 100 mg 100 mg PO TID #90 caps 11/03/23 capsule (Dilantin Extended) folic acid 1 mg tablet 1 mg PO DAILY #90 tabs 04/02/24 amoxicillin 250 mg-potassium 1 tab PO Q12H #7 tabs 04/03/24 clavulanate 125 mg tablet doxycycline monohydrate 100 mg 100 mg PO Q12H #7 caps 04/03/24 capsule insulin glargine 100 unit/mL (3 10 unit (0.1 mL) subcut DAILY #15 04/03/24 mL) subcutaneous pen (Basaglar mL KwikPen U-100 Insulin) Allergies Allergy/AdvReac Type Severity Reaction Status Date / Time Egg Derived Allergy Unknown Verified 04/07/24 22:49 Review of Systems Review of Systems: Yes all other systems are reviewed and are negative Constitutional: Constitutional: Denies fatigue and Denies fever(s) Cardiovascular: Cardiovascular: Denies chest pain and Denies dyspnea Respiratory: Respiratory: Denies dyspnea Musculoskeletal: Musculoskeletal: Reports arthralgias and Denies joint swelling Endocrine: Endocrine: Denies fatigue PMFSH Past Medical History Attestation statement: The following information was validated with the patient. Medical History ESRD (end stage renal disease) Generalized seizure Acute kidney injury CKD (chronic kidney disease) stage 3, GFR 30-59 ml/min CHF (congestive heart failure) Anemia Brain tumor (benign) Lower extremity edema Pneumonia Asthma Pulmonary nodule HLD (hyperlipidemia) Seizure Acute hypoxemic respiratory failure due to COVID-19 COVID-19 Kidney stone Depression Gastritis Diabetes Surgical History H/O lithotripsy H/O ureteroscopy H/O cystoscopy S/P ureteral stent placement History of cholecystectomy H/O hernia repair Family History Family History Father CAD (coronary artery disease) Brother Lung cancer Sister Kidney stone Social History Social History Household Members: Family Housing: Apartment Do you presently have visiting nurse or other home services: No Alcohol intake: former Comment: pt sleeping at this time Patient Tobacco Use Status: Never used Tobacco Smoked in Last 30 Days: No e-Cigarette/Vaping Use: Never Used Use of substances other than those prescribed or required for medical reasons: No Advance Directives: Yes Advance Directives on File: Yes Advance Directives Date on File: 12/20/21 service: No Current occupational status: unemployed Physical Exam ED Vital Signs: Vital Signs - 24 hr 04/07/24 22:48 04/08/24 03:13 Temperature 98.1 F 98.2 F Pulse Rate 70 69 Respiratory Rate 16 19 Blood Pressure 152/51 H 167/61 H Pulse Oximetry 100 100 Oxygen Delivery Method Room Air Room Air BMI result Body Mass Index 32.0 Const Other: Alert, appears older than stated age Orientation/consciousness: patient oriented x3 Resp Effort & Inspection: normal respiratory effort Cardio Other: Normal peripheral perfusion Skin Other: Warm dry no rash Neuro General: patient oriented x3, no focal motor deficits and CN's II-XI intact bilaterally Extrem Other: There is erythema and mild warmth noted over the incision line of the left foot, no purulent drainage from the site, I see an ulceration on the plantar surface of the 4th digit Psych Other: Tearful, anxious Medications Administered Discontinued Medications Generic Name Dose Route Start Last Admin Trade Name Freq PRN Reason Stop Dose Admin Acetaminophen 975 mg 04/07/24 23:56 04/08/24 00:08 Acetaminophen 325 Mg Tablet PO 04/07/24 23:57 975 mg ONCE ONE Administration Piperacillin Sod/Tazobactam 50 mls @ 100 mls/hr 04/08/24 01:47 04/08/24 03:08 Sod 3.375 gm/ Sodium Chloride IV 04/08/24 02:16 100 mls/hr ONCE ONE Administration Methocarbamol 750 mg 04/07/24 23:56 04/08/24 00:08 Methocarbamol 750 Mg Tablet PO 04/07/24 23:57 750 mg ONCE ONE Administration Medical Decision Making Medical Decision Making MDM Narrative: 68-year-old female with a history of diabetes, end-stage renal disease on dialysis Monday, prior osteomyelitis and gangrene of the left 5th digit now status post amputation [address] Vines, presents with concern for infected surgical site. Patient has VNA services to the home, the family was advised if there was any discoloration, or drainage from the incision site, they should seek medical attention. Patient denies fever. Patient also states she fell several weeks ago, never had x-rays of the right hip, she sustained an abrasion during the fall. Patient has been ambulatory since the fall. She uses a walker at baseline. Problem: Recent surgery, end-stage renal, diabetes History: Per patient I have considered the following differential diagnoses: Cellulitis, purulent cellulitis, abscess, osteomyelitis, Plan: We will be screening basic labs including inflammatory markers and an x-ray of the foot. The patient was perseverating over a fall that she had several weeks ago, the hip was never imaged, we will obtain x-rays. Giving Tylenol and a muscle relaxant for her discomfort. I have independently reviewed the following tests: Labs: Slight leukocytosis which is unchanged from this month, stable anemia, no electrolyte abnormality, creatinine at her baseline she is due for dialysis tomorrow, inflammatory markers are elevated X-ray left foot: Findings: New post amputation changes across the distal 5th metatarsal. Soft tissue swelling is nonspecific and increased of the forefoot. Osteoarthritis is multifocal. Soft tissue gas concerning for ulceration including distally in the superficial to remaining 5th ray. Vascular calcifications noted. Small effusion of the ankle. No dislocation of the imaged remaining foot. No radiopaque retained foreign body. IMPRESSION: 1. Soft tissue gas concerning for distal ulceration laterally of the remaining foot. 2. Post amputation change of the 5th metatarsal is distal and new when compared to 03/21/2024. This document has been electronically signed by: Suman Berger MD on 04/08/2024 01:39:39 given the findings on the x-ray, we will be adding blood cultures, lactic acid and starting antibiotics. The patient will be admitted. X-ray right hip pelvis:Findings: Deformity of the proximal right femur appears old/chronic. No acute or displaced fracture. Calcific tendinitis given noted adjacent to right greater trochanter. Mild pelvis deformities appear old chronic. [id number] osteoarthritis of both hips. Vascular calcifications are redemonstrated. IMPRESSION: 1. No acute fracture or dislocation. 2. Osteoarthritis of the both hips noted This document has been electronically signed by: Suman Berger MD on 04/08/2024 01:36:41 Lab Data 04/07/24 22:56 04/07/24 22:56 Labs: Lab Results 04/07/24 04/08/24 Range/Units 22:56 02:25 WBC 13.7 H (4.8-10.8) X10*3/uL RBC 3.29 L (4.20-5.50) X10*6/uL Hgb 9.9 L (12.0-16.0) g/dl Hct 28.7 L (37.0-47.0) % MCV 87.2 (80.0-98.0) fL MCH 30.1 (27.0-33.0) pg MCHC 34.5 (31.0-35.0) g/dl RDW 18.1 H (11.0-16.0) % Plt Count TNP MPV 12.8 H (9.4-12.3) fL Immature Gran % (Auto) 2.3 H (0.0-0.4) % Neut % (Auto) 77.7 H (45-73) % Lymph % (Auto) 9.0 L (20-40) % Angelina % (Auto) 8.5 (2-11) % Eos % (Auto) 2.0 (0-4) % Baso % (Auto) 0.5 (0-2) % Lymph # (Auto) 1.2 (1.2-4.9) X10*3/uL [place]ina # (Auto) 1.2 (0.1-1.2) X10*3/uL Eos # (Auto) 0.3 (0.0-0.4) X10*3/uL Baso # (Auto) 0.1 (0.0-0.2) X10*3/uL Abs Immat Gran (auto) 0.31 H (0.00-0.03) X10*3/uL Absolute Neuts (auto) 10.7 H (2.0-8.3) x10*3/uL Absolute Nucleated RBC 0.020 H (0.0-0.012) X10*3/uL Nucleated RBC % (auto) 0.1 (0.0-0.2) /100WBC Smear Tech's Comments VERIFIED ESR 94 H (0-20) MM/HR Sodium 140 (135-145) mmol/L Potassium 4.0 (3.3-5.1) mmol/L Chloride 103 (96-108) mmol/L Carbon Dioxide 19 L (22-29) mmol/L Anion Gap 22 H (12-20) BUN 93 H (9-16) mg/dL Creatinine 5.54 H* (0.5-1.4) mg/dL Estim Creat Clear Calc 9.6 Estimated GFR 8 Random Glucose 138 H (60-115) mg/dL Lactic Acid 0.9 (0.5-2.0) mmol/L Calcium 7.5 L D (8.4-10.2) mg/dL Magnesium 2.0 (1.6-2.6) mg/dL C-Reactive Protein 15.95 H (< or = 0.50) mg/dL Discharge Plan Discharge Clinical Impression: Diabetic infection of left foot Patient Disposition: Admitted As Inpatient Prescriptions: No Action (DME) FreeStyle Lite Strips Strip MISCELLANEOUS QID (DME) blood-glucose meter [FreeStyle [place] Lite] Kit MISCELLANEOUS BID (DME) lancets [FreeStyle Lancets] 28 gauge misc 1 gauge topical BID omeprazole 40 mg capsule,delayed release(DR/EC) 40 mg PO BID@0630,1630 atorvastatin 80 mg tablet 80 mg PO DAILY aspirin 81 mg tablet,delayed release (DR/EC) 81 mg PO DAILY amlodipine 10 mg tablet 10 mg PO DAILY Fiasp FlexTouch U-100 Insulin 100 unit/mL (3 mL) insulin pen 6 - 8 unit subcut TID levetiracetam 500 mg Tablet 500 mg PO BID Qty: 60 2RF phenytoin sodium extended [Dilantin Extended] 100 mg Capsule 100 mg PO TID Qty: 90 2RF ferrous gluconate 324 mg (38 mg iron) tablet 324 mg PO DAILY cholecalciferol (vitamin D3) 50 mcg (2,000 unit) Tablet 50 mcg PO DAILY valproic acid 250 mg capsule 1,000 mg PO BID acetaminophen 650 mg tablet extended release 650 mg PO Q8H PRN (Reason: mild pain) losartan 100 mg tablet 100 mg PO BID diclofenac sodium 1 % gel 2 g topical BEDTIME PRN (Reason: Pain) Rx Instructions: APPLY 2 GRAMS TOPICALLY TO FEET AT BEDTIME NEEDED folic acid 1 mg Tablet 1 mg PO DAILY Qty: 90 0RF amoxicillin-pot clavulanate 250-125 mg Tablet 1 tab PO Q12H Qty: 7 0RF doxycycline monohydrate 100 mg Capsule 100 mg PO Q12H Qty: 7 0RF insulin glargine [Basaglar KwikPen U-100 Insulin] 100 unit/mL (3 mL) insulin pen 10 unit subcut DAILY Qty: 15 1RF (DME) blood pressure test kit-large Kit See Rx Instructions .ROUTE DAILY Qty: 1 Rx Instructions: As directed (DME) nebulizers Misc See Rx Instructions .Route Rx Instructions: As directed trazodone 50 mg tablet 100 mg PO BEDTIME PRN (Reason: Sleep) (DME) lancets [TRUEplus Lancets] 33 gauge misc See Rx Instructions .ROUTE BID Qty: 100 Rx Instructions: As directed Print Language: Monegasque
[2024-04-07 23:46] LABS: Basophils Absolute Auto 0.1 X10*3/uL (0.0-0.2); Basophils Percent Auto 0.5 % (0-2); Eosinophils Absolute Auto 0.3 X10*3/uL (0.0-0.4); Hematocrit 28.7 % (37.0-47.0); Hemoglobin 9.9 g/dl (12.0-16.0); Imm Gran Abs Auto 0.31 X10*3/uL (0.00-0.03); Imm Gran Pct Auto 2.3 % (0.0-0.4); Lymphocytes Absolute Auto 1.2 X10*3/uL (1.2-4.9); MANUAL DIFF FLAG SCAN; Mean Corpuscular HGB Conc 34.5 g/dl (31.0-35.0); Mean Corpuscular Hemoglobin 30.1 pg (27.0-33.0); Mean Corpuscular Volume 87.2 fL (80.0-98.0); Mean Platelet Volume 12.8 fL (9.4-12.3); Monocytes Absolute Auto 1.2 X10*3/uL (0.1-1.2); Monocytes Percent Auto 8.5 % (2-11); NRBC Pct Auto 0.1 /100WBC (0.0-0.2); Neutrophils Absolute Auto 10.7 x10*3/uL (2.0-8.3); Neutrophils Percent Auto 77.7 % (45-73); PLT CLUMP 1; Red Blood Count 3.29 X10*6/uL (4.20-5.50); Red Cell Distribution Width 18.1 % (11.0-16.0); SCAN SMEAR FLAG 1; White Blood Count 13.7 X10*3/uL (4.8-10.8)
[2024-04-07 23:55] LABS: Anion Gap 22 (12-20); Blood Urea Nitrogen 93 mg/dL (9-16); C Reactive Protein 15.95 mg/dL (< or = 0.50); Calcium 7.5 mg/dL (8.4-10.2); Carbon Dioxide 19 mmol/L (22-29); Chloride 103 mmol/L (96-108); Creatinine Clr Calc Pharmacy 9.6; Estimated Glomerular Filt Rate 8; Glucose Random 138 mg/dL (60-115); Sodium 140 mmol/L (135-145)
[2024-04-07 23:59] LABS: SLIDE REVIEW VERIFIED
[2024-04-08] VITALS (7 sets, daily range): BP systolic 137–167; BP diastolic 51–72; PULSE 68–89; RESP 12–19; TEMP 36.1–36.8; O2SAT 98–100; BMI 39.1
[2024-04-08 00:06] LABS: Erythrocyte Sedimentation Rate 94 MM/HR (0-20)
[2024-04-08] MEDS: Acetaminophen 325 MG TABLET 975 MG PO (00:08)
[2024-04-08] MEDS: methocarbamoL 750 MG TABLET PO (00:08)
--- NOTE | 2024-04-08 02:16 | P.HPHOSP_ITS ---
History of Present Illness Date of Service: 04/08/24 Chief Complaint: ? infected foot 68-year-old female with a past medical history significant for hypertension, heart failure with preserved ejection fraction (HFpEF), chronic kidney disease stage 5 on hemodialysis (MWF), insulin-dependent type 2 diabetes, asthma, anemia of chronic disease, and GERD. She has a left diabetic foot ulcer and underwent a left 5th toe amputation on 03/28/24 due to gangrene/osteomyelitis (OM). She was discharged home with a visiting nurse service (VNS) on 04/03 with Augmentin and oral doxycycline. She presents to the ED due to concern for a wound infection, as instructed by her VNA two days prior that she should come to the ED if there is discoloration or drainage. She reports new redness at the site, but no pain due to neuropathy, and no fever. Her white blood cell count (WBC) is 13 (unchanged), ESR is 94, and CRP is 15. X-ray shows soft tissue gas concerning for distal ulceration laterally of the remaining foot. She received vancomycin and Zosyn in the ED. Review of Systems 2 Review of Systems: Gen: no fever Resp: no sob, no cough CV: no chest, no HORN, no leg edema GI: No n/v, no abd pain Neuro: No confusion Yes all other systems are reviewed and are negative [facility] Medical History ESRD (end stage renal disease) Generalized seizure Acute kidney injury CKD (chronic kidney disease) stage 3, GFR 30-59 ml/min CHF (congestive heart failure) Anemia Brain tumor (benign) Lower extremity edema Pneumonia Asthma Pulmonary nodule HLD (hyperlipidemia) Seizure Acute hypoxemic respiratory failure due to COVID-19 COVID-19 Kidney stone Depression Gastritis Diabetes Family History Father CAD (coronary artery disease) Brother Lung cancer Sister Kidney stone Surgical History H/O lithotripsy H/O ureteroscopy H/O cystoscopy S/P ureteral stent placement History of cholecystectomy H/O hernia repair Social History Household Members: Family Housing: Apartment Do you presently have visiting nurse or other home services: No Alcohol intake: former Comment: pt sleeping at this time Patient Tobacco Use Status: Never used Tobacco Smoked in Last 30 Days: No e-Cigarette/Vaping Use: Never Used Use of substances other than those prescribed or required for medical reasons: No Advance Directives: Yes Advance Directives on File: Yes Advance Directives Date on File: 12/20/21 service: No Current occupational status: unemployed Meds Allergies Allergy/AdvReac Type Severity Reaction Status Date / Time Egg Derived Allergy Unknown Verified 04/07/24 22:49 Active Medications: Current Medications Vancomycin HCl 1,500 mg/ (Sodium Chloride) 500 mls @ 333.333 mls/hr IV ONCE ONE Stop: 04/08/24 03:16 Pharmacy Consult (Consult Rx Vancomycin Dosing) 1 each MISCELLANE DAILY PRN PRN Reason: Consult order Home Medications ?Medication ?Instructions ?Recorded ?Confirmed ?Last Taken ?Type blood sugar diagnostic (FreeStyle 03/28/20 09/09/22 Unknown History Lite Strips) blood-glucose meter (FreeStyle 03/28/20 09/09/22 Unknown History [place] Lite kit) lancets 28 gauge (FreeStyle 03/28/20 09/09/22 Unknown History Lancets) omeprazole 40 mg capsule,delayed 40 mg PO BID@0630,1630 10/02/21 03/22/24 03/21/24 History release blood pressure test kit-large #1 ea 10/12/21 09/09/22 Unknown History atorvastatin 80 mg tablet 80 mg PO DAILY 12/20/21 03/22/24 03/21/24 History nebulizers 01/20/22 09/09/22 Unknown History amlodipine 10 mg tablet 10 mg PO DAILY 05/29/22 03/22/24 03/21/24 History aspirin 81 mg tablet,delayed 81 mg PO DAILY 05/29/22 03/22/24 03/21/24 History release lancets 33 gauge (TRUEplus Lancets) #100 ea 06/07/22 09/09/22 Unknown History trazodone 50 mg tablet 100 mg PO BEDTIME PRN Sleep 06/07/22 03/22/24 10/26/23 History cholecalciferol (vitamin D3) 50 50 mcg PO DAILY 11/24/22 03/22/24 03/21/24 History mcg (2,000 unit) tablet ferrous gluconate 324 mg (38 mg 324 mg PO DAILY 11/24/22 03/22/24 03/21/24 History iron) tablet insulin aspart 6 - 8 unit subcut TID 10/27/23 03/22/24 03/21/24 History (niacinamide)(U-100) 100 unit/mL(3 mL) subcutaneous pen (Fiasp FlexTouch U-100 Insulin) acetaminophen 650 mg 650 mg PO Q8H PRN mild pain 03/22/24 03/22/24 Unknown History tablet,extended release diclofenac sodium 1 % topical gel 2 g topical BEDTIME PRN Pain 03/22/24 03/22/24 03/21/24 History losartan 100 mg tablet 100 mg PO BID 03/22/24 03/22/24 03/21/24 History valproic acid 250 mg capsule 1,000 mg PO BID 03/22/24 03/22/24 03/21/24 History Physical Exam 2 Vital Signs and Narrative: Vital Signs: Last Vital Signs Temp 98.1 F 04/07/24 22:48 Pulse 70 04/07/24 22:48 Resp 16 04/07/24 22:48 BP 152/51 H 04/07/24 22:48 Pulse Ox 100 04/07/24 22:48 O2 Del Method Room Air 04/07/24 22:48 BMI result Body Mass Index 32.0 Const: Other: General: AO X 3, no acute distress Resp: CTA bilateral CVS: S1,S2,RRR GI: +BS, NT, no distention Skin: Neuro: motor grossly intact Psych: appropriate affect Results Labs 04/07/24 22:56 04/07/24 22:56 Labs: Laboratory Results - last 24 hr 04/07/24 22:56 MCV 87.2 MCH 30.1 MCHC 34.5 RDW 18.1 H Plt Count TNP MPV 12.8 H Immature Gran % (Auto) 2.3 H Neut % (Auto) 77.7 H Lymph % (Auto) 9.0 L [place] % (Auto) 8.5 Eos % (Auto) 2.0 Baso % (Auto) 0.5 Lymph # (Auto) 1.2 [place] # (Auto) 1.2 Eos # (Auto) 0.3 Baso # (Auto) 0.1 Abs Immat Gran (auto) 0.31 H Absolute Neuts (auto) 10.7 H Absolute Nucleated RBC 0.020 H Nucleated RBC % (auto) 0.1 Smear Tech's Comments VERIFIED ESR 94 H Anion Gap 22 H Estim Creat Clear Calc 9.6 Estimated GFR 8 Random Glucose 138 H Calcium 7.5 L D Magnesium 2.0 C-Reactive Protein 15.95 H Assessment and Plan Plan 68 yo F with CKD5, DM2 with nephropathy, HTN, seizure had amputation of left 5th toe d/t OM/gangrene on 03/28, D/c with VNS on 04/03 and now concern of surgical wound infection. Surgical wound infection of L 5th toe amputation site, xray suggestive gas formation could be post op changes, however inflammatory markers are high Vanco post dialysis + Zosyn 2.25 q12, started 04/08 surgery consult culture pending Anemia of chronic disease, CKD stable CKD/ESRD, HD MWF Nephrology consult folate deficiency- continue folic acid replacement DM2 Lantus + SS, diabetic diet HTN resume home amlodipine and losartan seizure disorder - no seizure-like activity noted continue levetiracetam + valproate + phenytoin recent fall with right posterior thigh abrasion/wound xray show hip fracture emphysematous pyelonephritis during last hospitalization, completed antibiotics VTE ppx - compression boots d/t propensity for anemia and needing transfusion, possible need for procedure will avoid heparin, but need should be reassess if no intervention planned Quality VTE Prior VTE?: No VTE Risk Level:: Medical - moderate - high VTE Device Contraindication: Treatment Not Indicated VTE Drug Contraindication: N/A - Med Ordered
[2024-04-08 02:47] LABS: Lactic Acid 0.9 mmol/L (0.5-2.0)
[2024-04-08] MEDS: Piperacillin Sodium/Tazobactam 3.375 GM in 0.9 % Sodium Chloride 50 ML IV (03:08)
[2024-04-08] MEDS: vancomycin HCL 1,500 MG in 0.9 % Sodium Chloride 500 ML 333.33 MG IV (03:36)
[2024-04-08] MEDS: Melatonin 3 MG TABLET 6 MG PO ×2 (03:56→20:33)
[2024-04-08] MEDS: Morphine Sulfate 2 MG/ML CARTRIDGE IVPUSH ×4 (05:44→23:23)
[2024-04-08 07:39] LABS: Glucose, Whole Blood 56 mg/dL (60-115)
--- NOTE | 2024-04-08 08:21 | PM.CNGS ---
History of Present Illness Consult details Consult date: 04/08/24 Narrative: 68-year-old female admitted last night because of a question of a wound infection She has multiple medical problems including end-stage renal disease, on dialysis, diabetes, seizure disorder, and had undergone left 5th toe amputation last 03/28/2024 because of toe gangrene. She had been home but was apparently told by her visiting nurse to go to the ER because of a question of infection of the amputation site. Her ER records mentioned that her visiting nurse thought that the area had some redness. She admits to pain this does not seem to be unusual for her recent surgery She denies any fever or chills. Review of Systems Constitutional: Constitutional: Denies chills and Denies fever(s) Cardiovascular: Cardiovascular: Denies chest pain and Reports dyspnea on exertion Respiratory: Respiratory: Reports dyspnea on exertion Gastrointestinal: Gastrointestinal: Denies abdominal pain Genitourinary: Comments: On dialysis [facility] Past Medical History Medical History (Updated 04/08/24 @ 02:04 by DHARA Bowens) ESRD (end stage renal disease) Generalized seizure Acute kidney injury CKD (chronic kidney disease) stage 3, GFR 30-59 ml/min CHF (congestive heart failure) Anemia Brain tumor (benign) Lower extremity edema Pneumonia Asthma Pulmonary nodule HLD (hyperlipidemia) Seizure Acute hypoxemic respiratory failure due to COVID-19 COVID-19 Kidney stone Depression Gastritis Diabetes Family History Family History Father CAD (coronary artery disease) Brother Lung cancer Sister Kidney stone Surgical History Surgical History (Updated 04/08/24 @ 08:26 by Jeffry Vines MD) Status post amputation of toe of left foot H/O lithotripsy H/O ureteroscopy H/O cystoscopy S/P ureteral stent placement History of cholecystectomy H/O hernia repair Social History Social History Household Members: Family Housing: Apartment Do you presently have visiting nurse or other home services: No Alcohol intake: former Comment: pt sleeping at this time Patient Tobacco Use Status: Never used Tobacco Smoked in Last 30 Days: No e-Cigarette/Vaping Use: Never Used Use of substances other than those prescribed or required for medical reasons: No Advance Directives: Yes Advance Directives on File: Yes Advance Directives Date on File: 12/20/21 service: No Current occupational status: unemployed Meds Allergies Allergy/AdvReac Type Severity Reaction Status Date / Time Egg Derived Allergy Unknown Verified 04/07/24 22:49 Active Medications: Current Medications Acetaminophen (Acetaminophen 325 Mg Tablet) 650 mg PO Q6H PRN PRN Reason: Pain, Mild 1-3,fever,headache Al Hydroxide/Mg Hydroxide (Magnesium Hydrox/Alum Hydrox 30 Ml Oral.Susp) 30 ml PO Q4H PRN PRN Reason: Heartburn Calcium Carbonate (Calcium Carbonate 750 Mg Tab.Chew) 750 mg PO Q4H PRN PRN Reason: Heartburn Dextrose (Dextrose 50 % 25 Gm/50 Ml Syringe) 25 gm IVPUSH Q15M PRN; Protocol PRN Reason: per Hypoglycemia Standing Ord. Glucose (Glucose Gel 15 Gm Gel..Gram.) 15 gm PO Q15M PRN; Protocol PRN Reason: per Hypoglycemia Standing Ord. Piperacillin Sod/Tazobactam (Sod 2.25 gm/ Sodium Chloride) 50 mls @ 100 mls/hr IV Q12H [facility] Vancomycin HCl 500 mg/ Sodium (Chloride) 110 mls @ 110 mls/hr IV ONCE ONE Stop: 04/08/24 07:44 Insulin Human Lispro (Insulin Lispro 100 Unit/Ml 3 Ml Vial) [facility]; Protocol Last Admin: 04/08/24 07:39 Dose: Not Given Magnesium Hydroxide (Milk Of Magnesia 30 Ml Oral.Susp) 30 ml PO DAILY PRN PRN Reason: Constipation Melatonin (Melatonin 3 Mg Tablet) 6 mg PO BEDTIME PRN PRN Reason: Insomnia Last Admin: 04/08/24 03:56 Dose: 6 mg Morphine Sulfate (Morphine Sulfate 2 Mg/Ml Cartridge) 2 mg IVPUSH Q6H PRN; Protocol PRN Reason: Pain, Severe (Pain Scale 7-10) Last Admin: 04/08/24 05:44 Dose: 2 mg Pharmacy Consult (Consult Rx Vancomycin Dosing) 1 each MISCELLANE DAILY PRN PRN Reason: Consult order Sodium Chloride (0.9 % Sodium Chloride Flush 3 Ml Syringe) 3 ml IVFLUSH [facility] Home Medications ?Medication ?Instructions ?Recorded ?Confirmed ?Last Taken ?Type blood sugar diagnostic (FreeStyle 03/28/20 09/09/22 Unknown History Lite Strips) blood-glucose meter (FreeStyle 03/28/20 09/09/22 Unknown History [place] Lite kit) lancets 28 gauge (FreeStyle 03/28/20 09/09/22 Unknown History Lancets) omeprazole 40 mg capsule,delayed 40 mg PO BID@0630,1630 10/02/21 04/08/24 03/21/24 History release blood pressure test kit-large #1 ea 10/12/21 09/09/22 Unknown History atorvastatin 80 mg tablet 80 mg PO DAILY 12/20/21 04/08/24 03/21/24 History nebulizers 01/20/22 09/09/22 Unknown History amlodipine 10 mg tablet 10 mg PO DAILY 05/29/22 04/08/24 03/21/24 History aspirin 81 mg tablet,delayed 81 mg PO DAILY 05/29/22 04/08/24 03/21/24 History release lancets 33 gauge (TRUEplus Lancets) #100 ea 06/07/22 09/09/22 Unknown History trazodone 50 mg tablet 100 mg PO BEDTIME PRN Sleep 06/07/22 04/08/24 10/26/23 History cholecalciferol (vitamin D3) 50 50 mcg PO DAILY 11/24/22 04/08/24 03/21/24 History mcg (2,000 unit) tablet ferrous gluconate 324 mg (38 mg 324 mg PO DAILY 11/24/22 04/08/24 03/21/24 History iron) tablet insulin aspart 6 - 8 unit subcut TID 10/27/23 04/08/24 03/21/24 History (niacinamide)(U-100) 100 unit/mL(3 mL) subcutaneous pen (Fiasp FlexTouch U-100 Insulin) acetaminophen 650 mg 650 mg PO Q8H PRN mild pain 03/22/24 04/08/24 Unknown History tablet,extended release diclofenac sodium 1 % topical gel 2 g topical BEDTIME PRN Pain 03/22/24 04/08/24 03/21/24 History losartan 100 mg tablet 100 mg PO BID 03/22/24 04/08/24 03/21/24 History valproic acid 250 mg capsule 1,000 mg PO BID 03/22/24 04/08/24 03/21/24 History Physical Exam Vital Signs: Vital Signs: Last Vital Signs Temp 97 F 04/08/24 07:52 Pulse 73 04/08/24 07:52 Resp 12 04/08/24 07:52 BP 137/51 L 04/08/24 07:52 Pulse Ox 100 04/08/24 07:52 O2 Del Method Room Air 04/08/24 07:52 BMI result Body Mass Index 32.0 Const: Other: Anxious General: comfortable and no acute distress Resp: Effort & Inspection: normal respiratory effort Cardio: Rate: regular rate GI: Palpation (GI): Soft to palpation, not firm and nontender Extrem: Other: Left 5th toe amputation site clean, dry, no discharge, sutures intact, no redness Results Labs 04/07/24 22:56 04/07/24 22:56 Labs: Abnormal lab results 04/07/24 04/08/24 Range/Units 22:56 07:29 WBC 13.7 H (4.8-10.8) X10*3/uL RBC 3.29 L (4.20-5.50) X10*6/uL Hgb 9.9 L (12.0-16.0) g/dl Hct 28.7 L (37.0-47.0) % RDW 18.1 H (11.0-16.0) % MPV 12.8 H (9.4-12.3) fL Immature Gran % (Auto) 2.3 H (0.0-0.4) % Neut % (Auto) 77.7 H (45-73) % Lymph % (Auto) 9.0 L (20-40) % Abs Immat Gran (auto) 0.31 H (0.00-0.03) X10*3/uL Absolute Neuts (auto) 10.7 H (2.0-8.3) x10*3/uL Absolute Nucleated RBC 0.020 H (0.0-0.012) X10*3/uL ESR 94 H (0-20) MM/HR Carbon Dioxide 19 L (22-29) mmol/L Anion Gap 22 H (12-20) BUN 93 H (9-16) mg/dL Creatinine 5.54 H* (0.5-1.4) mg/dL POC Glucose 56 L* (60-115) mg/dL Random Glucose 138 H (60-115) mg/dL Calcium 7.5 L D (8.4-10.2) mg/dL C-Reactive Protein 15.95 H (< or = 0.50) mg/dL Short CBC 04/07/24 Range/Units 22:56 WBC 13.7 H (4.8-10.8) X10*3/uL Hgb 9.9 L (12.0-16.0) g/dl Hct 28.7 L (37.0-47.0) % Plt Count TNP BMP 04/07/24 22:56 Sodium 140 Potassium 4.0 Chloride 103 Carbon Dioxide 19 L BUN 93 H Creatinine 5.54 H* Calcium 7.5 L D All other labs normal. Assessment and Plan (1) Status post amputation of toe of left foot: Status: Acute The amputation site actually looks clean. This does not appear to be infected. There is some mild redness but this is likely secondary to the presence of the sutures. The x-ray mentioned some soft tissue gas but this is likely because of some tracking from the incision itself. There was no suggestion of any ongoing necrotizing process at this time. The patient appears benign. There is no significant tenderness, induration, or discharge I will probably remove her sutures before she gets discharged. The rest of her management will be as per the hospitalist service. Procedures Date of Service Date of Service: 04/08/24
[2024-04-08 08:25] LABS: Glucose, Whole Blood 81 mg/dL (60-115)
[2024-04-08] MEDS: 0.9 % Sodium Chloride Flush 3 ML SYRINGE IVFLUSH ×3 (08:35→23:26)
--- NOTE | 2024-04-08 08:37 | PHA.MEDREC ---
Addendum entered by Jacinto Contreras RPh 04/08/24 08:53: Med rec was reviewed by [facility]. Original Note: Pharmacy Consult ? Medication Reconciliation Pharmacy has completed the medication reconciliation. Spoke with pateint's daughter over the phone through an mix maker. She reports patient is finished with antibiotics. She confirmed Basaglar is 10 units and Fiasp is 6-8 units tid. She confirmed patient started the folic acid and stopped the furosemide and lokelma. Used discharge papers to confirm the rest. Daughter said patient had medications last night.
[2024-04-08] MEDS: Losartan Potassium 50 MG TABLET 100 MG PO ×2 (09:37→20:36)
[2024-04-08] MEDS: levETIRAcetam 500 MG TABLET PO ×2 (09:37→20:33)
[2024-04-08] MEDS: Folic Acid 1 MG TABLET PO (09:37)
[2024-04-08] MEDS: amLODIPine Besylate 10 MG TABLET PO (09:37)
[2024-04-08] MEDS: Phenytoin Sodium Extended 100 MG CAPSULE PO ×3 (09:37→20:33)
[2024-04-08] MEDS: Aspirin Enteric Coated 81 MG TABLET.DR PO (09:37)
[2024-04-08] MEDS: Omeprazole 40 MG CAPSULE.DR PO ×2 (09:37→15:34)
--- NOTE | 2024-04-08 10:48 | PC.NURSE ---
pt c/o increase in right hip pain - prn medication utilized. admitting MD approved early administration. effectiveness pending.
[2024-04-08 12:54] LABS: Glucose, Whole Blood 53 mg/dL (60-115)
[2024-04-08 12:54] LABS: Glucose, Whole Blood 61 mg/dL (60-115)
[2024-04-08] MEDS: Valproic Acid 250 MG CAPSULE 1000 MG PO ×2 (13:00→20:33)
--- NOTE | 2024-04-08 13:35 | PM.EVENT ---
Event Note Date of Service: 04/08/24 Event Note: Day hospitalist update S: due for HD today some pain at amputation site L 5th toe no fever O: Temp Pulse Resp BP Pulse Ox O2 Del Method 97.7 F 74 18 161/72 H 100 Room Air 04/08/24 12:50 04/08/24 12:50 04/08/24 12:50 04/08/24 12:50 04/08/24 12:50 04/08/24 12:50 Gen: in no acute distress HEENT: sclera anicteric, moist mucus membranes Neck: supple, tunnel HD catheter RIJ Lungs: clear to auscultation bilaterally Heart: regular rate and rhythm, no murmurs Abd: soft, non-tender, non-distended Ext: no edema Skin: warm/well-perfused, L 5th toe amputated with sutures in place, no redness or necrosis Neuro: alert and oriented x3, moving all extremities Psych: appropriate affect Labs: WBCs 13.7, BUN/Cr 93/5.54, CRP 15.6 A/P: d1 for 68yo F with ESRD recently started on HD MWF, HFpEF, DM2, asthma, anemia of ESRD, GERD, and recent admission for L diabetic foot ulcer/gangrene/osteomyelitis of 5th toe s/p amputation 03/28/24; discharged home on amoxicillin-clavulanate + doxycycline; sent in by [facility] for concern of redness at site; X-ray with soft tissue gas concerning for distal ulceration laterally of remanining foot diabetic foot infection, concern for postoperative wound infection - Gen Surg consulted, amputation site looks OK without infection; mild redness likely due to sutures which will probably be removed; soft tissue gas likely tracking from incision - continue vancomycin + piperacillin-tazobactam for now; BCx pending ESRD on HD MWF - Nephro consult, due for HD today anemia of ESRD - Hb stable; continue iron + folate folate deficiency - continue repletion HTN - losartan + amlodipine DM2 - basal-bolus insulin HLD - statin seizure disorder - continue levetiracetam + valproate + phenytoin VTE ppx - UFH dispo - likely home with VNA to resume In my clinical judgment, the patient requires continued hospitalization for the following reasons: IV ABX, wound monitoring Time Spent With Patient Time: Total time managing care of this patient today ____ minutes.
--- NOTE | 2024-04-08 13:53 | PC.NURSE ---
pt incontinent of urine. bed change completed. helga care performed. new purewick placed. pt turned/repositioned to comfort. delay in medication administration d/t medication not being available/just delivered from pharmacy. additionally, no insulin coverage needed at this time. daughter bedside for support. pending bed assignment. plan of care ongoing.
[2024-04-08] MEDS: Heparin Sodium,Porcine 5,000 UNIT/ML VIAL 5000 UNIT SUBCUT (15:34)
[2024-04-08] MEDS: Piperacillin Sodium/Tazobactam 2.25 GM in 0.9 % Sodium Chloride 50 ML IV (15:34)
--- NOTE | 2024-04-08 16:06 | PC.NURSE ---
pt being transported to dialysis at this time.
--- NOTE | 2024-04-08 16:11 | MHC.CM.PN ---
Addendum entered by Kenyatta Mcclain 04/08/24 16:14: DAUGHTER REPORTS SHE WILL TRANSPORT [place], HOWEVER STATES SHE HAD TROUBLE TRANSPORTING TO AND FROM SHE ASKS THAT PT 1 BLS TRANSPORT BE ARRANGED FOR PT [place], SHE IS AWARE CM WILL ARRANGE THE FIRST TWO TRANSPORTS AND [facility] WILL NEED TO ARRANGE THE REST PT GOES TO [facility] M-W-F AT 0600 Original Note: CM CALLED PTS DAUGHTER WITH A LAUNDRY OPERATOR FINISHING PT ANTOINE WITH DAUGHTER AND DAUGHTERS FAMILY DAUGHTER IS HER ASSOCIATE MATERIAL HAND[employer]ER 4 HOURS A DAY, BUT PROVIDES 24/7 CARE PT CAN AMBULATE WITH A WALKER, BUT RARELY DOES PER DAUGHTER PT HAS HD M-W-F AT 0600 HCP ON FILE PCP: YURY ESQUEDA IMM DELIVERED DCP: HOME WITH [employer]UMPTION OF [employer] SERVICES DAUGHTER TO TRANSPORT
[2024-04-08] MEDS: ondansetron HCL 4 MG/2 ML VIAL IVPUSH (17:55)
--- NOTE | 2024-04-08 18:41 | PC.NURSE ---
pt remains in dialysis at this time. per RN in dialysis, pt reporting increase right sided hip pain and nausea. prn medication utilized at 1755.
[2024-04-08 18:59] LABS: Vancomycin Random 15.5 mcg/mL (15-20)
[2024-04-08 20:14] LABS: Glucose, Whole Blood 116 mg/dL (60-115)
[2024-04-08] MEDS: traZODone HCL 100 MG TABLET PO (20:33)
[2024-04-08] MEDS: Acetaminophen 325 MG TABLET 650 MG PO (20:34)
--- NOTE | 2024-04-08 22:19 | HO.SKINPHOTO ---
Location: right hip Category: skin tear Stage: Length: Width: Depth: cm Location: Category: Stage: Length: Width: Depth: cm Location: Category: Stage: Length: Width: Depth: cm Location: Category: Stage: Length: Width: Depth: cm Location: Category: Stage: Length: Width: Depth: cm Location: Category: Stage: Length: Width: Depth: cm
[2024-04-09] MEDS: Heparin Sodium,Porcine 5,000 UNIT/ML VIAL 5000 UNIT SUBCUT ×2 (02:34→14:47)
[2024-04-09] MEDS: Piperacillin Sodium/Tazobactam 2.25 GM in 0.9 % Sodium Chloride 50 ML IV (02:39)
[2024-04-09 03:16] VITALS: BP 119/56; PULSE 72; RESP 18; TEMP 36.5
[2024-04-09] MEDS: Omeprazole 40 MG CAPSULE.DR PO ×2 (06:23→16:55)
[2024-04-09 06:51] VITALS: BP 159/70; PULSE 67; RESP 16; TEMP 36.6; O2SAT 99
[2024-04-09 07:13] LABS: Glucose, Whole Blood 65 mg/dL (60-115)
[2024-04-09 07:32] LABS: Glucose, Whole Blood 77 mg/dL (60-115)
[2024-04-09] MEDS: Atorvastatin Calcium 80 MG TABLET PO (07:45)
[2024-04-09] MEDS: Phenytoin Sodium Extended 100 MG CAPSULE PO ×3 (07:46→20:12)
[2024-04-09] MEDS: Valproic Acid 250 MG CAPSULE 1000 MG PO ×2 (07:46→20:12)
[2024-04-09] MEDS: levETIRAcetam 500 MG TABLET PO ×2 (07:46→20:12)
[2024-04-09] MEDS: amLODIPine Besylate 10 MG TABLET PO (07:46)
[2024-04-09] MEDS: Cholecalciferol (Vitamin D3) 25 MCG TABLET 50 MCG PO (07:46)
[2024-04-09] MEDS: Losartan Potassium 50 MG TABLET 100 MG PO ×2 (07:46→20:13)
[2024-04-09] MEDS: Ferrous Sulfate 324 MG TABLET.DR PO (07:47)
[2024-04-09] MEDS: Folic Acid 1 MG TABLET PO (07:47)
[2024-04-09] MEDS: Aspirin Enteric Coated 81 MG TABLET.DR PO (07:47)
[2024-04-09] MEDS: 0.9 % Sodium Chloride Flush 3 ML SYRINGE IVFLUSH (07:53)
[2024-04-09] MEDS: Morphine Sulfate 2 MG/ML CARTRIDGE IVPUSH ×2 (07:53→12:09)
--- NOTE | 2024-04-09 08:35 | PM.PNGS ---
Subjective Subjective Date of Service: 04/09/24 Interval history: no new complaints no events overnight Physical Exam Vital Signs: Vital Signs: Last Vital Signs Temp 98 F 04/09/24 06:51 Pulse 67 04/09/24 06:51 Resp 16 04/09/24 06:51 BP 159/70 H 04/09/24 06:51 Pulse Ox 99 04/09/24 06:51 O2 Del Method Room Air 04/09/24 06:51 BMI result Body Mass Index 39.1 Const: General: comfortable and no acute distress Resp: Effort & Inspection: normal respiratory effort Extrem: Other: left 5th toe amputation site - wellhealed, not infected, sutures intact Objective Data Active Medications Acetaminophen (Acetaminophen 325 Mg Tablet) 650 mg PO Q6H PRN PRN Reason: Pain, Mild 1-3,fever,headache Last Admin: 04/08/24 20:34 Dose: 650 mg Documented By: DINORAH Al Hydroxide/Mg Hydroxide (Magnesium Hydrox/Alum Hydrox 30 Ml Oral.Susp) 30 ml PO Q4H PRN PRN Reason: Heartburn Amlodipine Besylate (Amlodipine Besylate 10 Mg Tablet) 10 mg PO DAILY [facility]; Protocol Last Admin: 04/09/24 07:46 Dose: 10 mg Documented By: TYRONE Aspirin (Aspirin Enteric Coated 81 Mg Tablet.) 81 mg PO DAILY [facility] Last Admin: 04/09/24 07:47 Dose: 81 mg Documented By: TYRONE Atorvastatin Calcium (Atorvastatin Calcium 80 Mg Tablet) 80 mg PO DAILY [facility] Last Admin: 04/09/24 07:45 Dose: 80 mg Documented By: TYRONE Calcium Carbonate (Calcium Carbonate 750 Mg Tab.Chew) 750 mg PO Q4H PRN PRN Reason: Heartburn Dextrose (Dextrose 50 % 25 Gm/50 Ml Syringe) 25 gm IVPUSH Q15M PRN; Protocol PRN Reason: per Hypoglycemia Standing Ord. Ferrous Sulfate (Ferrous Sulfate 324 Mg Tablet.) 324 mg PO DAILY [facility] Last Admin: 04/09/24 07:47 Dose: 324 mg Documented By: TYRONE Folic Acid (Folic Acid 1 Mg Tablet) 1 mg PO DAILY [facility] Last Admin: 04/09/24 07:47 Dose: 1 mg Documented By: TYRONE Glucose (Glucose Gel 15 Gm Gel..Gram.) 15 gm PO Q15M PRN; Protocol PRN Reason: per Hypoglycemia Standing Ord. Heparin Sodium (Porcine) (Heparin Sodium,Porcine 5,000 Unit/Ml Vial) 5,000 unit SUBCUT Q12H [facility] Last Admin: 04/09/24 02:34 Dose: 5,000 unit Documented By: VIPUL Piperacillin Sod/Tazobactam (Sod 2.25 gm/ Sodium Chloride) 50 mls @ 100 mls/hr IV Q12H [facility] Last Infusion: 04/09/24 03:12 Dose: Infused Documented By: VIPUL Vancomycin HCl 500 mg/ Sodium (Chloride) 110 mls @ 110 mls/hr IV ONCE ONE Stop: 04/08/24 07:44 Insulin Human Lispro (Insulin Lispro 100 Unit/Ml 3 Ml Vial) 0 unit SUBCUT QIDACHS [facility]; Protocol Last Admin: 04/09/24 07:43 Dose: Not Given Documented By: TYRONE Non-Admin Reason: No Insulin Coverage Levetiracetam (Levetiracetam 500 Mg Tablet) 500 mg PO BID [facility] Last Admin: 04/09/24 07:46 Dose: 500 mg Documented By: TYRONE Losartan Potassium (Losartan Potassium 50 Mg Tablet) 100 mg PO BID [facility]; Protocol Last Admin: 04/09/24 07:46 Dose: 100 mg Documented By: TYRONE Magnesium Hydroxide (Milk Of Magnesia 30 Ml Oral.Susp) 30 ml PO DAILY PRN PRN Reason: Constipation Melatonin (Melatonin 3 Mg Tablet) 6 mg PO BEDTIME PRN PRN Reason: Insomnia Last Admin: 04/08/24 20:33 Dose: 6 mg Documented By: DINORAH Morphine Sulfate (Morphine Sulfate 2 Mg/Ml Cartridge) 2 mg IVPUSH Q6H PRN; Protocol PRN Reason: Pain, Severe (Pain Scale 7-10) Last Admin: 04/09/24 07:53 Dose: 2 mg Documented By: TYRONE Omeprazole (Omeprazole 40 Mg Capsule.) 40 mg PO BID@0630,1630 [facility] Last Admin: 04/09/24 06:23 Dose: 40 mg Documented By: VIPUL Ondansetron HCl (Ondansetron Hcl 4 Mg/2 Ml Vial) 4 mg IVPUSH Q4H PRN PRN Reason: Nausea and Vomiting Last Admin: 04/08/24 17:55 Dose: 4 mg Documented By: KHLOE Pharmacy Consult (Consult Rx Vancomycin Dosing) 1 each MISCELLANE DAILY PRN PRN Reason: Consult order Phenytoin Sodium (Phenytoin Sodium Extended 100 Mg Capsule) 100 mg PO TID [facility] Last Admin: 04/09/24 07:46 Dose: 100 mg Documented By: TYRONE Sodium Chloride (0.9 % Sodium Chloride Flush 3 Ml Syringe) 3 ml IVFLUSH QSHIFT [facility] Last Admin: 04/09/24 07:53 Dose: 3 ml Documented By: TYRONE Trazodone HCl (Trazodone Hcl 100 Mg Tablet) 100 mg PO BEDTIME PRN PRN Reason: Sleep Last Admin: 04/08/24 20:33 Dose: 100 mg Documented By: DINORAH Valproic Acid (Valproic Acid 250 Mg Capsule) 1,000 mg PO BID [facility] Last Admin: 04/09/24 07:46 Dose: 1,000 mg Documented By: TYRONE Vitamin D (Cholecalciferol (Vitamin D3) 25 Mcg Tablet) 50 mcg PO DAILY [facility] Last Admin: 04/09/24 07:46 Dose: 50 mcg Documented By: TYRONE Labs 04/07/24 22:56 04/07/24 22:56 Labs: Laboratory Results - last 24 hr 04/08/24 04/08/24 04/08/24 12:39 12:41 18:15 POC Glucose 53 L* 61 Random Vancomycin 15.5 04/08/24 04/09/24 04/09/24 20:07 06:51 07:29 POC Glucose 116 H 65 77 Random Vancomycin Microbiology Microbiology Results: Microbiology 04/08/24 02:35 Blood Culture - Preliminary Blood - Venous No growth after 24 hours. 04/08/24 02:25 Blood Culture - Preliminary Blood - Venous No growth after 24 hours. Procedures Date of Service Date of Service: 04/09/24 Progress Note: A&P Assessment and plan (1) Status post amputation of toe of left foot: Status: Acute Assessment and Plan: site healing well i removed all his sutures steristrips applied the rest of care as per medical service Time Spent With Patient Time: Total time managing care of this patient today ____ minutes. Quality Stroke Does the patient have a stroke diagnosis?: No VTE Prior VTE?: No VTE Risk Level:: Medical - moderate - high VTE Device Contraindication: Treatment Not Indicated VTE Drug Contraindication: N/A - Med Ordered
[2024-04-09 08:38] LABS: Hematocrit 29.8 % (37.0-47.0); Hemoglobin 9.9 g/dl (12.0-16.0); Mean Corpuscular HGB Conc 33.2 g/dl (31.0-35.0); Mean Corpuscular Hemoglobin 30.3 pg (27.0-33.0); Mean Corpuscular Volume 91.1 fL (80.0-98.0); Mean Platelet Volume 11.9 fL (9.4-12.3); Platelet Count 198 X10*3/uL (160-400); Red Blood Count 3.27 X10*6/uL (4.20-5.50); Red Cell Distribution Width 18.1 % (11.0-16.0); White Blood Count 11.5 X10*3/uL (4.8-10.8)
[2024-04-09 08:53] LABS: Anion Gap 17 (12-20); Blood Urea Nitrogen 51 mg/dL (9-16); Calcium 7.6 mg/dL (8.4-10.2); Carbon Dioxide 22 mmol/L (22-29); Chloride 102 mmol/L (96-108); Creatinine Clr Calc Pharmacy 17.3; Estimated Glomerular Filt Rate 13; Glucose Random 95 mg/dL (60-115); Potassium 3.9 mmol/L (3.3-5.1); Sodium 137 mmol/L (135-145)
--- NOTE | 2024-04-09 10:37 | PM.DS ---
DS: Providers Provider Date of Service: 04/09/24 Date of admission: 04/08/24 03:26 Date of discharge: 04/09/24 Primary care physician: Lucrecia Teixeira MD Consults: 04/08/24 03:08 Consult to Nephrology Routine Consulting Provider: [facility] Reason for consultation: ESRD, HD MWF Has provider been notified: No 04/08/24 03:22 Consult to General Surgery Routine Consulting Provider: [facility] Reason for consultation: surgicala wound infection (Mohinder pt) 04/08/24 20:25 Consult to Wound Care Routine Reason for consultation: amp site to left 5th toe DS: Diagnosis Discharge Diagnosis (1) Status post amputation of toe of left foot: Status: Acute (2) Diabetic infection of left foot: Status: Acute (3) Diabetes mellitus with hypoglycemia: Status: Acute (4) ESRD (end stage renal disease) on dialysis: Status: Acute DS: Summary Hospital Course Hospital Course: From the history and physical by the admitting hospitalist, Seth Perez, 04/08/24: 68-year-old female with a past medical history significant for hypertension, heart failure with preserved ejection fraction (HFpEF), chronic kidney disease stage 5 on hemodialysis (MWF), insulin-dependent type 2 diabetes, asthma, anemia of chronic disease, and GERD. She has a left diabetic foot ulcer and underwent a left 5th toe amputation on 03/28/24 due to gangrene/osteomyelitis (OM). She was discharged home with a visiting nurse service (VNS) on 04/03 with Augmentin and oral doxycycline. She presents to the ED due to concern for a wound infection, as instructed by her VNA two days prior that she should come to the ED if there is discoloration or drainage. She reports new redness at the site, but no pain due to neuropathy, and no fever. Her white blood cell count (WBC) is 13 (unchanged), ESR is 94, and CRP is 15. X-ray shows soft tissue gas concerning for distal ulceration laterally of the remaining foot. She received vancomycin and Zosyn in the ED. 68yo F with ESRD recently started on HD MWF, HFpEF, DM2, asthma, anemia of ESRD, GERD, and recent admission for L diabetic foot ulcer/gangrene/osteomyelitis of 5th toe s/p amputation 03/28/24; discharged home on amoxicillin-clavulanate + doxycycline; sent in by VNA for concern of redness at site; X-ray with soft tissue gas concerning for distal ulceration laterally of remaining foot. She was admitted to the medical-surgical unit with General Surgery consultation. Per the surgeon, the amputation site did not show signs of infection and the remaining toes appeared viable. There was very mild redness attributable to the sutures, which were removed on 04/09/24. The soft tissue gas was likely tracking from the surgical incision. Out of an abundance of caution, she was started with vancomycin and piperacillin-tazobactam while inpatient, then discharged on 6 days of doxycycline and amoxicillin-clavulanate. She was discharged home with resumption of VNA services and should follow up with the surgeon in 1 week. She underwent her scheduled dialysis on 04/08/24. Due to hypoglycemia, basal insulin was discontinued; prandial insulin was continued. Time Attestation Discharge Coordination Time (in mins): 40 Quality: Safe Use of Opioids Does Pt have an Active Cancer Diagnosis on the Problem List?: No Quality: Stroke Does the patient have a stroke diagnosis?: No Physical Exam Vital Signs: Vital Signs: Last Vital Signs Temp 98 F 04/09/24 06:51 Pulse 67 04/09/24 06:51 Resp 16 04/09/24 06:51 BP 159/70 H 04/09/24 06:51 Pulse Ox 99 04/09/24 06:51 O2 Del Method Room Air 04/09/24 06:51 BMI result Body Mass Index 39.1 Gen: in no acute distress HEENT: sclera anicteric, moist mucus membranes Neck: supple, tunnel HD catheter RIJ Lungs: clear to auscultation bilaterally Heart: regular rate and rhythm, no murmurs Abd: soft, non-tender, non-distended Ext: no edema Skin: warm/well-perfused, L 5th toe amputated with Steri-strips applied, no redness or necrosis at the site or on remaining toes Neuro: alert and oriented x3, moving all extremities Psych: appropriate affect DS: Data Data Completed and Pending Completed studies during hospitalization [Text1]: Laboratory Results WBC 11.5 X10*3/uL (4.8-10.8) H 04/09/24 08:26 RBC 3.27 X10*6/uL (4.20-5.50) L 04/09/24 08:26 Hgb 9.9 g/dl (12.0-16.0) L 04/09/24 08:26 Hct 29.8 % (37.0-47.0) L 04/09/24 08:26 MCV 91.1 fL (80.0-98.0) 04/09/24 08:26 MCH 30.3 pg (27.0-33.0) 04/09/24 08: MCHC 33.2 g/dl (31.0-35.0) 04/09/24 08: RDW 18.1 % (11.0-16.0) H 04/09/24 08:26 Plt Count 198 X10*3/uL (160-400) D 04/09/24 08: MPV 11.9 fL (9.4-12.3) 04/09/24 08:26 Immature Gran % (Auto) 2.3 % (0.0-0.4) H 04/07/24 22:56 Neut % (Auto) 77.7 % (45-73) H 04/07/24 22:56 Lymph % (Auto) 9.0 % (20-40) L 04/07/24 22:56 [place] % (Auto) 8.5 % (2-11) 04/07/24 22:56 Eos % (Auto) 2.0 % (0-4) 04/07/24 22:56 Baso % (Auto) 0.5 % (0-2) 04/07/24 22:56 Lymph # (Auto) 1.2 X10*3/uL (1.2-4.9) 04/07/24 22:56 [place] # (Auto) 1.2 X10*3/uL (0.1-1.2) 04/07/24 22:56 Eos # (Auto) 0.3 X10*3/uL (0.0-0.4) 04/07/24 22:56 Baso # (Auto) 0.1 X10*3/uL (0.0-0.2) 04/07/24 22:56 Abs Immat Gran (auto) 0.31 X10*3/uL (0.00-0.03) H 04/07/24 22:56 Absolute Neuts (auto) 10.7 x10*3/uL (2.0-8.3) H 04/07/24 22:56 Absolute Nucleated RBC 0.000 X10*3/uL (0.0-0.012) 04/09/24 08:26 Nucleated RBC % (auto) 0.0 /100WBC (0.0-0.2) 04/09/24 08:26 Smear Tech's Comments VERIFIED 04/07/24 22:56 ESR 94 MM/HR (0-20) H 04/07/24 22:56 Sodium 137 mmol/L (135-145) 04/09/24 08:26 Potassium 3.9 mmol/L (3.3-5.1) 04/09/24 08:26 Chloride 102 mmol/L (96-108) 04/09/24 08:26 Carbon Dioxide 22 mmol/L (22-29) 04/09/24 08:26 Anion Gap 17 (12-20) 04/09/24 08:26 BUN 51 mg/dL (9-16) H 04/09/24 08:26 Creatinine 3.44 mg/dL (0.5-1.4) H 04/09/24 08:26 Estim Creat Clear Calc 17.3 04/09/24 08:26 Estimated GFR 13 04/09/24 08:26 POC Glucose 77 mg/dL (60-115) 04/09/24 07:29 Random Glucose 95 mg/dL (60-115) 04/09/24 08:26 Lactic Acid 0.9 mmol/L (0.5-2.0) 04/08/24 02:25 Calcium 7.6 mg/dL (8.4-10.2) L 04/09/24 08:26 Magnesium 2.0 mg/dL (1.6-2.6) 04/07/24 22:56 C-Reactive Protein 15.95 mg/dL (< or = 0.50) H 04/07/24 22:56 Random Vancomycin 15.5 mcg/mL (15-20) 04/08/24 18:15 Discharge Plan Discharge Anticipated Discharge Date/Time: 04/09/24 10:32 Patient Disposition: Home Health Service Discharge Diagnosis: recent diabetic foot ulcer/gangrene/osteomyelitis of 5th toe, status-post amputation Referrals: Lucrecia Teixeira MD [Primary Care Provider] - 1 Week Jeffry Vines MD [Physician] - 1 Week Discharge Medications: New doxycycline monohydrate 100 mg tablet 100 mg PO BID Qty: 12 0RF amoxicillin-pot clavulanate 250-125 mg tablet 1 tab PO BID Qty: 12 0RF Continued (DME) FreeStyle Lite Strips Strip MISCELLANEOUS QID (DME) blood-glucose meter [FreeStyle [place] Lite] Kit MISCELLANEOUS BID (DME) lancets [FreeStyle Lancets] 28 gauge misc 1 gauge topical BID omeprazole 40 mg capsule,delayed release(DR/EC) 40 mg PO BID@0630,1630 atorvastatin 80 mg tablet 80 mg PO DAILY aspirin 81 mg tablet,delayed release (DR/EC) 81 mg PO DAILY amlodipine 10 mg tablet 10 mg PO DAILY Fiasp FlexTouch U-100 Insulin 100 unit/mL (3 mL) insulin pen 6 - 8 unit subcut TID levetiracetam 500 mg Tablet 500 mg PO BID Qty: 60 2RF phenytoin sodium extended [Dilantin Extended] 100 mg Capsule 100 mg PO TID Qty: 90 2RF ferrous gluconate 324 mg (38 mg iron) tablet 324 mg PO DAILY cholecalciferol (vitamin D3) 50 mcg (2,000 unit) Tablet 50 mcg PO DAILY valproic acid 250 mg capsule 1,000 mg PO BID acetaminophen 650 mg tablet extended release 650 mg PO Q8H PRN (Reason: mild pain) losartan 100 mg tablet 100 mg PO BID diclofenac sodium 1 % gel 2 g topical BEDTIME PRN (Reason: Pain) Rx Instructions: APPLY 2 GRAMS TOPICALLY TO FEET AT BEDTIME NEEDED folic acid 1 mg Tablet 1 mg PO DAILY Qty: 90 0RF (DME) blood pressure test kit-large Kit See Rx Instructions .ROUTE DAILY Qty: 1 Rx Instructions: As directed (DME) nebulizers Mis See Rx Instructions .Route Rx Instructions: As directed trazodone 50 mg tablet 100 mg PO BEDTIME PRN (Reason: Sleep) (DME) lancets [TRUEplus Lancets] 33 gauge misc See Rx Instructions .ROUTE BID Qty: 100 Rx Instructions: As directed Discontinued insulin glargine [Basaglar KwikPen U-100 Insulin] 100 unit/mL (3 mL) insulin pen 10 unit subcut DAILY Qty: 15 1RF Discharge Orders: Discharge Order (Routine); Ordered 04/09/24 Ordered By: Moses Reynoso Diet: Diabetic diet Activity on Discharge: As tolerated Stand Alone Forms: Patient Portal Discharge page Print Language: Palauan Care Plan Goals: resolution of infection Health Concerns: recent diabetic foot ulcer/gangrene/osteomyelitis of 5th toe, status-post amputation Plan of Treatment: home with ongoing VNA services sutures removed take doxycycline monohydrate 100 mg twice daily PLUS amoxicillin-clavulanate 100 mg twice daily for 6 days follow up with Dr Vines from General Surgery in 1 week STOP Basaglar due to hypoglycemia; continue Fiasp Please follow up with your primary care doctor within 1 week. Return to the hospital if you experience recurrent or worsening symptoms. Assessment: See Discharge Summary.
[2024-04-09 11:23] VITALS: BP 130/62; PULSE 77; RESP 16; TEMP 36.1; O2SAT 100
[2024-04-09 11:34] LABS: Glucose, Whole Blood 138 mg/dL (60-115)
--- NOTE | 2024-04-09 12:01 | HO.PM.IMPN ---
Subjective Subjective Date of Service: 04/09/24 Interval History: no fever no chills sutures removed by Dr Vines This history was taken in Filipino from the patient. Review of Systems Review of Systems: Yes all other systems are reviewed and are negative Physical Exam Vital Signs: Vital Signs: Last Vital Signs Temp 97 F 04/09/24 11:23 Pulse 77 04/09/24 11:23 Resp 16 04/09/24 11:23 BP 130/62 04/09/24 11:23 Pulse Ox 100 04/09/24 11:23 O2 Del Method Room Air 04/09/24 11:23 BMI result Body Mass Index 39.1 Gen: in no acute distress HEENT: sclera anicteric, moist mucus membranes Neck: supple, tunnel HD catheter RIJ Lungs: clear to auscultation bilaterally Heart: regular rate and rhythm, no murmurs Abd: soft, non-tender, non-distended Ext: no edema Skin: warm/well-perfused, L 5th toe amputated, Steristrips applied to wound, no redness or necrosis at wound or of remaining toes Neuro: alert and oriented x3, moving all extremities Psych: appropriate affect Objective Data Active Medications Acetaminophen (Acetaminophen 325 Mg Tablet) 650 mg PO Q6H PRN PRN Reason: Pain, Mild 1-3,fever,headache Last Admin: 04/08/24 20:34 Dose: 650 mg Documented By: DINORAH Al Hydroxide/Mg Hydroxide (Magnesium Hydrox/Alum Hydrox 30 Ml Oral.Susp) 30 ml PO Q4H PRN PRN Reason: Heartburn Amlodipine Besylate (Amlodipine Besylate 10 Mg Tablet) 10 mg PO DAILY [facility]; Protocol Last Admin: 04/09/24 07:46 Dose: 10 mg Documented By: TYRONE Aspirin (Aspirin Enteric Coated 81 Mg Tablet.) 81 mg PO DAILY [facility] Last Admin: 04/09/24 07:47 Dose: 81 mg Documented By: TYRONE Atorvastatin Calcium (Atorvastatin Calcium 80 Mg Tablet) 80 mg PO DAILY [facility] Last Admin: 04/09/24 07:45 Dose: 80 mg Documented By: TYRONE Calcium Carbonate (Calcium Carbonate 750 Mg Tab.Chew) 750 mg PO Q4H PRN PRN Reason: Heartburn Dextrose (Dextrose 50 % 25 Gm/50 Ml Syringe) 25 gm IVPUSH Q15M PRN; Protocol PRN Reason: per Hypoglycemia Standing Ord. Ferrous Sulfate (Ferrous Sulfate 324 Mg Tablet.) 324 mg PO DAILY [facility] Last Admin: 04/09/24 07:47 Dose: 324 mg Documented By: TYRONE Folic Acid (Folic Acid 1 Mg Tablet) 1 mg PO DAILY [facility] Last Admin: 04/09/24 07:47 Dose: 1 mg Documented By: TYRONE Glucose (Glucose Gel 15 Gm Gel..Gram.) 15 gm PO Q15M PRN; Protocol PRN Reason: per Hypoglycemia Standing Ord. Heparin Sodium (Porcine) (Heparin Sodium,Porcine 5,000 Unit/Ml Vial) 5,000 unit SUBCUT Q12H [facility] Last Admin: 04/09/24 02:34 Dose: 5,000 unit Documented By: VIPUL Piperacillin Sod/Tazobactam (Sod 2.25 gm/ Sodium Chloride) 50 mls @ 100 mls/hr IV Q12H [facility] Last Infusion: 04/09/24 03:12 Dose: Infused Documented By: VIPUL Vancomycin HCl 500 mg/ Sodium (Chloride) 110 mls @ 110 mls/hr IV ONCE ONE Stop: 04/08/24 07:44 Insulin Human Lispro (Insulin Lispro 100 Unit/Ml 3 Ml Vial) 0 unit SUBCUT QIDACHS [facility]; Protocol Last Admin: 04/09/24 11:51 Dose: Not Given Documented By: TYRONE Non-Admin Reason: No Insulin Coverage Levetiracetam (Levetiracetam 500 Mg Tablet) 500 mg PO BID [facility] Last Admin: 04/09/24 07:46 Dose: 500 mg Documented By: TYRONE Losartan Potassium (Losartan Potassium 50 Mg Tablet) 100 mg PO BID [facility]; Protocol Last Admin: 04/09/24 07:46 Dose: 100 mg Documented By: TYRONE Magnesium Hydroxide (Milk Of Magnesia 30 Ml Oral.Susp) 30 ml PO DAILY PRN PRN Reason: Constipation Melatonin (Melatonin 3 Mg Tablet) 6 mg PO BEDTIME PRN PRN Reason: Insomnia Last Admin: 04/08/24 20:33 Dose: 6 mg Documented By: DINORAH Morphine Sulfate (Morphine Sulfate 2 Mg/Ml Cartridge) 2 mg IVPUSH Q6H PRN; Protocol PRN Reason: Pain, Severe (Pain Scale 7-10) Last Admin: 04/09/24 07:53 Dose: 2 mg Documented By: TYRONE Omeprazole (Omeprazole 40 Mg Capsule.) 40 mg PO BID@0630,1630 [facility] Last Admin: 04/09/24 06:23 Dose: 40 mg Documented By: VIPUL Ondansetron HCl (Ondansetron Hcl 4 Mg/2 Ml Vial) 4 mg IVPUSH Q4H PRN PRN Reason: Nausea and Vomiting Last Admin: 04/08/24 17:55 Dose: 4 mg Documented By: KHLOE Pharmacy Consult (Consult Rx Vancomycin Dosing) 1 each MISCELLANE DAILY PRN PRN Reason: Consult order Phenytoin Sodium (Phenytoin Sodium Extended 100 Mg Capsule) 100 mg PO TID [facility] Last Admin: 04/09/24 07:46 Dose: 100 mg Documented By: TYRONE Sodium Chloride (0.9 % Sodium Chloride Flush 3 Ml Syringe) 3 ml IVFLUSH QSHIFT [facility] Last Admin: 04/09/24 07:53 Dose: 3 ml Documented By: TYRONE Trazodone HCl (Trazodone Hcl 100 Mg Tablet) 100 mg PO BEDTIME PRN PRN Reason: Sleep Last Admin: 04/08/24 20:33 Dose: 100 mg Documented By: DINORAH Valproic Acid (Valproic Acid 250 Mg Capsule) 1,000 mg PO BID [facility] Last Admin: 04/09/24 07:46 Dose: 1,000 mg Documented By: TYRONE Vitamin D (Cholecalciferol (Vitamin D3) 25 Mcg Tablet) 50 mcg PO DAILY [facility] Last Admin: 04/09/24 07:46 Dose: 50 mcg Documented By: TYRONE Labs 04/09/24 08:26 04/09/24 08:26 Labs: Laboratory Results - last 24 hr 04/08/24 04/08/24 04/08/24 12:39 12:41 18:15 MCV MCH MCHC RDW Plt Count MPV Absolute Nucleated RBC Nucleated RBC % (auto) Anion Gap Estim Creat Clear Calc Estimated GFR POC Glucose 53 L* 61 Random Glucose Calcium Random Vancomycin 15.5 04/08/24 04/09/24 04/09/24 20:07 06:51 07:29 MCV MCH MCHC RDW Plt Count MPV Absolute Nucleated RBC Nucleated RBC % (auto) Anion Gap Estim Creat Clear Calc Estimated GFR POC Glucose 116 H 65 77 Random Glucose Calcium Random Vancomycin 04/09/24 04/09/24 08:26 11:22 MCV 91.1 MCH 30.3 MCHC 33.2 RDW 18.1 H Plt Count 198 D MPV 11.9 Absolute Nucleated RBC 0.000 Nucleated RBC % (auto) 0.0 Anion Gap 17 Estim Creat Clear Calc 17.3 Estimated GFR 13 POC Glucose 138 H Random Glucose 95 Calcium 7.6 L Random Vancomycin Microbiology Microbiology Results: Microbiology 04/08/24 02:35 Blood Culture - Preliminary Blood - Venous No growth after 24 hours. 04/08/24 02:25 Blood Culture - Preliminary Blood - Venous No growth after 24 hours. Assessment and Plan (1) Diabetic infection of left foot: Status: Acute Plan d2 for 68yo F with ESRD recently started on HD MWF, HFpEF, DM2, asthma, anemia of ESRD, GERD, and recent admission for L diabetic foot ulcer/gangrene/osteomyelitis of 5th toe s/p amputation 03/28/24; discharged home on amoxicillin-clavulanate + doxycycline; sent in by VNA for concern of redness at site; X-ray with soft tissue gas concerning for distal ulceration laterally of remanining foot diabetic foot infection, concern for postoperative wound infection - Gen Surg consulted, amputation site looks OK without infection; mild redness likely due to sutures which were removed today; soft tissue gas likely tracking from incision - was started on vancomycin + piperacillin-tazobactam; d/c on doxycycline and amoxicillin-clavulanate for 6 days out of an abudance of caution ESRD on HD MWF - Nephro consulted, got HD M and will need again tomorrow anemia of ESRD - Hb stable; continue iron + folate folate deficiency - continue repletion HTN - losartan + amlodipine DM2 - basal-bolus insulin HLD - statin seizure disorder - continue levetiracetam + valproate + phenytoin VTE ppx - UFH dispo - home with resumption of VNA; discharge held because transportation to outpt HD has not yet been set up. Per Case Management, plan to d/c after HD tomorrow. In my clinical judgment, the patient requires continued hospitalization for the following reasons: outpt HD transport setup Total time managing care of this patient today: 35 minutes. Quality Stroke Does the patient have a stroke diagnosis?: No VTE Prior VTE?: No VTE Risk Level:: Medical - moderate - high VTE Device Contraindication: Treatment Not Indicated VTE Drug Contraindication: N/A - Med Ordered
--- NOTE | 2024-04-09 13:00 | MHC.CM.PN ---
CM SPOKE WITH BRY AT [facility], PT HAS NOT YET BEEN ESTABLISHED THERE PT WAS HOSPITALIZED BEFORE HE COULD START THERE. BRY IS WORKING ON PT 1 TRANSPORT WELL. CM SPOKE WITH DAUGHTER VIA [employer] OPERATOR TO DETERMINE MOBILITY NEEDS. PT IS ABLE TO USE W/C TO TRANSPORT PER DAUGHTER AND ABLE TO GO UP AND DOWN STAIRS WITH ASSIST. THIS INFORMATION PROVIDED TO BRY WHO WILL BE READY FOR PT TO START Monday AND TRANSPORT WILL BE AVAILABLE. NOTIFIED. PLAN FOR PT TO DO HD HERE TOMORROW (04/10) AND THEN DC HOME. SHANNA WILL CONTINUE TO FOLLOW FOR ANY CHANGE TO PLAN.
[2024-04-09 15:13] VITALS: BP 140/62; PULSE 73; RESP 18; TEMP 36.6; O2SAT 98
[2024-04-09] MEDS: Amoxicillin/Potassium Clav 250 MG TABLET PO ×2 (15:21→20:12)
[2024-04-09] MEDS: Doxycycline Monohydrate 100 MG CAPSULE PO ×2 (15:21→20:12)
[2024-04-09 16:03] LABS: Glucose, Whole Blood 134 mg/dL (60-115)
[2024-04-09] MEDS: Acetaminophen 325 MG TABLET 650 MG PO (16:58)
[2024-04-09 19:25] VITALS: BP 125/58; PULSE 80; TEMP 36.6; O2SAT 97
[2024-04-09 19:30] LABS: Glucose, Whole Blood 173 mg/dL (60-115)
[2024-04-09 20:13] VITALS: BP 125/58
[2024-04-09] MEDS: oxyCODONE HCl Immed Release 5 MG TABLET PO (20:13)
[2024-04-09] MEDS: Insulin Lispro 100 UNIT/ML 3 ML VIAL SUBCUT (20:13)
--- NOTE | 2024-04-10 00:42 | PC.NURSE ---
Pt seen at shift change alert and oriented, moaning for right hip pain 10/23, no IV access unable to give prn Morphine, Dr. Ireland was notified, Oxycodone 5 mg po given with good effect.
[2024-04-10] MEDS: Heparin Sodium,Porcine 5,000 UNIT/ML VIAL 5000 UNIT SUBCUT ×2 (01:23→14:42)
[2024-04-10 03:03] VITALS: BP 132/62; PULSE 73; RESP 18; TEMP 36; O2SAT 98
[2024-04-10] MEDS: Omeprazole 40 MG CAPSULE.DR PO (05:34)
[2024-04-10 06:50] VITALS: BP 134/63; PULSE 74; RESP 16; TEMP 36.7; O2SAT 98
[2024-04-10 06:55] LABS: Glucose, Whole Blood 141 mg/dL (60-115)
[2024-04-10] MEDS: oxyCODONE HCl Immed Release 5 MG TABLET PO ×2 (08:00→14:42)
--- NOTE | 2024-04-10 09:15 | PC.NURSE ---
Patient off unit to dialysis
--- NOTE | 2024-04-10 11:10 | MHC.CM.PN ---
Per MD rounds medically cleared for dc home today w/ family support/[employer] MANAGER and resumption of [facility] services. BLS transport scheduled for 3:30pm. CM met with daughter at bedside, c d area supervisor assisting, to review dc plan. Daughter is agreeable to plan. IMM delivered. Also reports she has received confirmation that PT-1 transport is arranged for HD on Monday morning @0530.
--- NOTE | 2024-04-10 12:24 | HO.WOUND ---
Wound Consult: Initial 68yr old?female admitted to [facility] on 04/08/24 - See progress notes and H&P for detailed history.? Wound consult placed for right Hip and Left Foot.? Patient agreeable to assessment and photo documentation.? Patient daughterlast admission reported the right posterior thigh / hip area abrasion is from a fall at home when in the middle of the night she fell into a dresser. The site did not need treatment at home - she reports it was a closed abrasion / blister. Since last admission the wound has progress to dry stable Eschar. This is atypical progression of the initial presenting wound bed. However there are no sis of abscess no induration no fluctuance and no erythema noted aside from immediate periwound WNL. There is some cold pink tissue noted the patient has applied ice to the nearby hip location. Given her complex medical history including Dialysis and Diabetes the wound eschar is stable there is concern for moistening this wound bed and allowing for moist necrotic slough to develop. Given this I recommend our goal to keep the eschar stable and dry. If wound bed were to become moist or have drainage occure reconsult or seek medical attention from a provider for topical treatment options. Right thigh Leg Right Posterior thigh / Hip Last admission Etiology: ??Abrasion - not consistent with pressure or moisture Present on Admission Wound Bed: adherent dry stable eschar noted Drainage / Odor: None Edges: ? irregular and attached Ruth wound: ?Intact - No Induration, Fluctuance or Warmth noted Pain: Tenderness reported Goals of Treatment: ? Dry covering to keep stable and dry. Left Foot Incision site Etiology: ?S/P Amputation Wound Bed: 1 stitch remains intact - mild dehiscence noted rolled incision edges Drainage / Odor: scant serosang noted on dressing Edges: ? defined and mild dehiscence noted Ruth wound: pink red erythema - decreased swelling - 4th toe black stable eschar noted ?Intact - No Induration, Fluctuance or Warmth noted Pain: Tenderness reported Goals of Treatment: ? Durafiber AG for moisture management and antimicrobial properties. Recommendations: 1. Turn and Reposition every 2 hours and as needed for patient comfort.? Use pillows or wedges to support off loading positions. 2. Off Load all bony prominences with use of pillows and heel boots if needed.? Apply Preventative foams where needed. ? 3. Monitor for incontinence and moisture control, use barrier creams when needed for prevention and treatment. 4. Provide adequate and supplemental nutrition.? 5. Order low air loss mattress. 6. When applicable maintain blood glucose levels per Providers order. 7. Right Posterior thigh - Off Load Pressure with Q2 hr turns and use of pillows - Cleanse with Ns moist gauze, pat dry. ?Apply skin prep allow to dry. Cover with dry ABD pad Change daily or every other day. Goal is to keep dry should wound be come moist or develop drainage have provider assess. 9. Left 5th Toe - Cleanse with NS, moist gauze, pat dry. Apply skin prep. Cover with Durafiber AG followed by Dry gauze. Change every other day. Re-consult wound care Nurse for wound deterioration or wound changes.
[2024-04-10] MEDS: levETIRAcetam 500 MG TABLET PO (12:43)
[2024-04-10] MEDS: Doxycycline Monohydrate 100 MG CAPSULE PO (12:43)
[2024-04-10] MEDS: Atorvastatin Calcium 80 MG TABLET PO (12:43)
[2024-04-10] MEDS: Amoxicillin/Potassium Clav 250 MG TABLET PO (12:43)
[2024-04-10] MEDS: Valproic Acid 250 MG CAPSULE 1000 MG PO (12:43)
[2024-04-10] MEDS: Aspirin Enteric Coated 81 MG TABLET.DR PO (12:43)
[2024-04-10 12:46] VITALS: BP 141/63
[2024-04-10] MEDS: Losartan Potassium 50 MG TABLET 100 MG PO (12:46)
[2024-04-10] MEDS: amLODIPine Besylate 10 MG TABLET PO (12:47)
[2024-04-10 12:51] VITALS: BP 141/63; PULSE 68; RESP 16; TEMP 36.6; O2SAT 98
[2024-04-10 12:52] LABS: Glucose, Whole Blood 160 mg/dL (60-115)
[2024-04-10] MEDS: Phenytoin Sodium Extended 100 MG CAPSULE PO (14:42)
== END 2024-04-10 16:10 | disposition home health service (06) | DRG 919 ==
LOC: HO.ED 23:20 → HO.EDOVER 04-08 03:29 → HO.S3 04-08 19:24
PROVIDERS: Family Medicine; Physician Assistant Medical; Admitting Provider Internal Medicine; Emergency Provider Emergency Medicine; PCP General Practice; Visit Provider Hospitalist
DX: T81.89XA Other complications of procedures, not elsewhere classified, initial encounter (principal); N18.6 End stage renal disease; I13.2 Hypertensive heart and chronic kidney disease with heart failure and with stage 5 chronic kidney disease, or end stage renal disease; I50.32 Chronic diastolic (congestive) heart failure; D63.1 Anemia in chronic kidney disease; G40.909 Epilepsy, unspecified, not intractable, without status epilepticus; L53.9 Erythematous condition, unspecified; Y79.3 Surgical instruments, materials and orthopedic devices (including sutures) associated with adverse incidents; E11.40 Type 2 diabetes mellitus with diabetic neuropathy, unspecified; E11.649 Type 2 diabetes mellitus with hypoglycemia without coma; E11.22 Type 2 diabetes mellitus with diabetic chronic kidney disease; Z99.2 Dependence on renal dialysis; Z79.82 Long term (current) use of aspirin; Z79.899 Other long term (current) drug therapy
CPT/HCPCS: 36415; 73502; 73630; 80048; 80202; 82947; 83605; 83735; 85025; 85027; 85652; 86140; 87040; 90999; 99285; J1644; J2270; J2405; J2543; J3371

== ENCOUNTER → 2024-04-08 00:35 | Outpatient (BNV) | payer MEDICARE, MEDICAID, SELFPAY | PROVIDERS: Emergency Provider Emergency Medicine; PCP General Practice; Visit Provider Radiology Neuroradiology | DX: M16.0 Bilateral primary osteoarthritis of hip (principal); T87.44 Infection of amputation stump, left lower extremity | CPT/HCPCS: 73502; 73630 ==

== ENCOUNTER → 2024-04-08 03:26 | Outpatient (BNV) | payer MEDICARE, MEDICAID, SELFPAY | PROVIDERS: Admitting Provider Internal Medicine; Emergency Provider Emergency Medicine; PCP General Practice; Visit Provider Family Medicine | DX: E11.628 Type 2 diabetes mellitus with other skin complications (principal); E11.621 Type 2 diabetes mellitus with foot ulcer; L08.9 Local infection of the skin and subcutaneous tissue, unspecified | CPT/HCPCS: 99223; 99499 ==

== ENCOUNTER → 2024-04-08 03:26 | Outpatient (BNV) | payer MEDICARE, MEDICAID, SELFPAY | PROVIDERS: Admitting Provider Internal Medicine; Emergency Provider Emergency Medicine; PCP General Practice; Visit Provider Surgery | DX: Z89.422 Acquired absence of other left toe(s) (principal) | CPT/HCPCS: 99024 ==

== ENCOUNTER 2024-05-04 00:46 | Inpatient (IN) | payer MEDICARE, MEDICAID, SELFPAY ==
[2024-05-04] VITALS (33 sets, daily range): BP systolic 99–152; BP diastolic 37–98; PULSE 76–104; RESP 11–26; TEMP 36.7–38.2; O2SAT 93–100; BMI 41.3
--- NOTE | 2024-05-04 | ECG_ITS ---
Test Reason : FALL Blood Pressure : */* mmHG Vent. Rate : 93 BPM Atrial Rate : 93 BPM P-R Int : 168 ms QRS Dur : 96 ms QT Int : 390 ms P-R-T Axes : 7 -4 29 degrees QTcB Int : 484 ms Normal sinus rhythm Minimal voltage criteria for LVH, may be normal variant ( R in aVL ) Borderline ECG When compared with ECG of 22-Mar-2024 12:54, No significant change was found Referred By: Generic ED Physician Electronically Signed By: Eduard Reyes
--- NOTE | ~2024-05-04 | XR_ITS ---
EXAMINATION: XR CHEST CLINICAL INFORMATION: fever COMPARISON: May 04, 2024. TECHNIQUE: Frontal view of the chest was obtained. FINDINGS: Low lung volume. Mild prominence of the interstitial lung markings in the perihilar region. No gross consolidation pleural effusion or pneumothorax. Cardiomediastinal silhouette size is mildly prominent. Right-sided double-lumen central venous line catheter remains in the right atrium region. Mild multilevel thoracic spondylosis. Degenerative changes in the shoulders, right greater than left side. Patient's large body habitus.. XR/XR chest 1V IMPRESSION: Mild interstitial lung edema versus acute small airway inflammatory process. Electronically signed by: Pete Wright MD 05/15/2024 07:00 AM EDT
--- NOTE | ~2024-05-04 | XR_ITS ---
CLINICAL HISTORY: abdominal pain Radiograph of the abdomen 1 view Comparison: None Findings: 3 films were obtained. Mild gaseous distention of multiple small bowel loops. Large amount of retained stool throughout the colon. No radiopaque foreign body. Extensive arterial calcifications. No acute osseous abnormality. Partial visualization of a hemodialysis catheter. Impression: 1. Nonobstructive bowel gas pattern. 2. Probable mild small bowel ileus. 3. Large colonic stool burden. This document has been electronically signed by: Rhiannon Clark DO on 05/11/2024 18:34:48
--- NOTE | ~2024-05-04 | CT_ITS ---
CLINICAL HISTORY: anemia r o retroperitoneal hematoma CT abdomen and pelvis without contrast Comparison: CT/SR - CT PELVIS WO IV CON - 05/05/24 15:[address]/HI/SR - CT ABDOMEN PELVIS WO IV CON - 03/23/24 10:26 EST Findings: No consolidation or effusion. Cardiomegaly. Calcification of the coronary vasculature. Gallbladder is not seen. Moderate bilateral renal atrophy. Renal vascular calcifications bilaterally. No hydronephrosis. No retroperitoneal hematoma. Solid organs otherwise within normal limits. No bowel obstruction, pneumoperitoneum, or pneumatosis. 10 cm anterior abdominal wall hernia containing a loop of transverse colon without evidence of associated bowel strangulation, nor obstruction. Pelvic contents unremarkable. Normal appendix. No acute fracture. IMPRESSION: 1. No acute process. 2. Bowel containing anterior abdominal wall hernia without evidence of strangulation or obstruction. 3. Coronary artery disease and cardiomegaly. This document has been electronically signed by: Vale Galvez MD on 05/19/2024 13:26:50
--- NOTE | ~2024-05-04 | CT_ITS ---
CLINICAL HISTORY: fall ,right hip lucency CT pelvis without contrast Comparison: CR - XR HIPS MARCIO MIN 3V - 05/04/24 13:37 EDT CR - XR HIP RT W PEL1V - 04/08/24 00:[address]/OK/SR - CT ABDOMEN PELVIS WO IV CON - 03/23/24 10:26 EST Findings: No acute fractures are identified. Alignment of the hip joints is anatomic. Degenerative change of both hip joints as before. Pubic rami are intact. No CT correlate to the reported radiographic abnormality of the right inferior pubic ramus. Sacroiliac joints and pubic symphysis are anatomically aligned. Partial visualization of a bowel containing ventral hernia on the most cephalad axial image. This is better depicted on the patient's prior CT of the abdomen and pelvis from March 23, 2024. IMPRESSION: No acute fracture. This document has been electronically signed by: Ra Ortiz MD on 05/05/2024 16:00:15
--- NOTE | ~2024-05-04 | CT_ITS ---
CLINICAL HISTORY: subdural hematoma CT head without contrast Comparison: CT/SR - CT HEAD/BRAIN WO IV CON - 05/04/24 01:58 EDT Findings: No evidence of acute territorial infarct. 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 Diffuse volume loss is noted. No hydrocephalus. No intraparenchymal hemorrhage, mass effect, mass lesion or midline shift. Tiny right parafalcine subdural hematoma, stable. No calvarial fracture. Paranasal sinuses and mastoid air cells are clear. Impression: Stable tiny right-sided parafalcine subdural hematoma Additional chronic findings. This document has been electronically signed by: Jimy Hoffman MD on 05/04/2024 10:11:51
--- NOTE | ~2024-05-04 | CT_ITS ---
CLINICAL HISTORY: fall CT Head WO Contrast COMPARISON: CT/SR - CT HEAD/BRAIN WO IV CON - 11/21/23 02:58 EDT FINDINGS: Small focal hyperdense right parafalcine subdural hematoma measuring up to 4 mm in thickness (series 3, image 64 and series 8, image 78). No evidence of acute infarction. Diffuse cortical volume loss. Nonspecific white matter hypodensities, most commonly associated with chronic microangiopathic changes. Chronic left frontal encephalomalacia. No mass-effect or midline shift. No hydrocephalus. Visualized orbits are normal. Clear paranasal sinuses. Clear mastoid air cells. No acute fracture. Prior left craniotomy. Unremarkable soft tissues. IMPRESSION: Small right parafalcine subdural hematoma. Nonemergent/incidental findings in the report. This document has been electronically signed by: Sammy Elise MD on 05/04/2024 03:39:39
--- NOTE | ~2024-05-04 | CT_ITS ---
CLINICAL HISTORY: fall CT Cervical Spine WO Contrast COMPARISON: None FINDINGS: No acute fracture or malalignment. Degenerative changes in the spine. Chronic appearing upper left rib deformities. Soft tissues are normal. Calcified left upper lobe granuloma. Right-sided dual-lumen dialysis catheter in place with distal catheter in the SVC as far as visible IMPRESSION: No acute findings. Nonemergent/incidental findings above. This document has been electronically signed by: Sammy Elise MD on 05/04/2024 03:28:08
--- NOTE | ~2024-05-04 | XR_ITS ---
CLINICAL HISTORY: fever 1 view chest x-ray Comparison: CR - XR CHEST 1V - 03/21/24 23:10 EST Findings: Right lower lobe perihilar opacities. No pneumothorax or large pleural effusion. Cardiomediastinal silhouette is accentuated by portable technique and poor inspiratory effort. No acute fracture. Chronic right rotator cuff tear. Right hemodialysis catheter tip is near the atriocaval junction. IMPRESSION: 1. Hypoventilation. 2. Probable right lower lobe pneumonia. This document has been electronically signed by: Rhiannon Clark DO on 05/04/2024 12:31:59
--- NOTE | ~2024-05-04 | IR_ITS ---
CLINICAL HISTORY: End-stage renal disease. The patient presents to interventional radiology for exchange of a malfunctioning tunneled central venous catheter for hemodialysis. PROCEDURES: Exchange of a 14.5 fr 23 cm tunneled, dual-lumen hemodialysis catheter via right IJ approach. COMPLICATIONS: None. ESTIMATED BLOOD LOSS: <5 ml FLUOROSCOPY TIME: 0.3 min PROCEDURE NOTE: The procedure, risks, benefits, and alternatives were carefully explained to patient's healthcare proxy via telephone, and written informed consent was obtained. The patient was placed supine on the fluoroscopy table. A timeout was performed. The right IJ dialysis catheter and surrounding skin was prepped and draped in usual sterile fashion. Local anesthesia was administered to the access site with lidocaine. A 0.035 in wire was advanced through one of the ports of the dialysis catheter to the IVC. The indwelling catheter was removed over wire and a new 14.5 Romansh 23 cm tip to cuff catheter was placed over the wire and the tip was positioned at the cavoatrial junction. The catheter was tested, flushed, and sutured to the skin with its tip in the high right atrium. A permanent fluoroscopic image of the chest was saved to PACS. The catheter ports were packed with heparin per routine protocol. FINDINGS: 2. Replacement of a tunneled, dual-lumen hemodialysis catheter as above. 3. Catheter flushes and aspirates very well with a 10 mL syringe. No pneumothorax. IR/IR cvc replace central tunnel IMPRESSION: Exchange of a tunneled hemodialysis catheter in the right internal jugular vein. PLAN: -The catheter may be used immediately. Electronically signed by: Jose M Dumont MD 05/09/2024 01:54 PM EDT
--- NOTE | ~2024-05-04 | XR_ITS ---
CLINICAL HISTORY: Fall at home on right hip 5 view, pelvis and bilateral hips Comparison: 04/08/2024 12:44 AM EST: CR: XR HIP RT W PEL Findings: Seen only on one view, there is a questioned lucency along the right inferior pubic ramus which may well be artifactual. The bilateral femoral heads are well directed towards their respective acetabula. No proximal femoral fracture. Diffuse vascular calcification. IMPRESSION: Faint lucency along the right inferior pubic ramus seen only on one view and possibly artifactual. If there is high clinical concern for fracture, a noncontrast pelvic CT could be considered. This document has been electronically signed by: Jimy Hoffman MD on 05/04/2024 14:06:23
--- NOTE | ~2024-05-04 | CT_ITS ---
CLINICAL HISTORY: Ams CT head without contrast Comparison: CT/SR - CT HEAD/BRAIN WO IV CON - 05/04/24 09:20 EDT Findings: No significant interval change in the appearance of the minimal right parafalcine extra-axial blood, measuring up to 3.5 mm in thickness on coronal image number 113 of series 7. No new foci of intracranial hemorrhage are identified. No mass effect or midline shift. No hydrocephalus. Moderate focus of left frontal encephalomalacia redemonstrated with associated ex vacuo dilation of the left lateral ventricle. Mild mucosal thickening identified within the right ethmoid air cells with minimal mucosal thickening at the left ethmoid air cells. The bilateral mastoid air cells appear clear. No acute skull fracture. Postsurgical changes compatible with left craniotomy are redemonstrated. Skin zeyad are redemonstrated over the occipital scalp near the midline. Impression: 1. Stable, minimal right parafalcine blood, measuring up to 3.5 mm in thickness. This is unchanged in appearance as compared to the prior examination. No mass effect or midline shift. No new foci of intracranial hemorrhage are identified. This document has been electronically signed by: Tito Coleman MD on 05/08/2024 22:56:18
--- NOTE | 2024-05-04 01:36 | ED.FALL ---
HPI - Fall General Chief Complaint: Fall Stated Complaint: Fall w/ HS LAC to back of head bleeding controlled Time Seen by Provider: 05/04/24 01:36 Source: patient Mode of arrival: ambulatory Limitations: no limitations History of Present Illness ED Provider: HPI Narrative: Patient's history of end-stage renal disease on dialysis which she had today walks with walker was trying to get up from the bed to go to bathroom lost balance and fell backwards hitting her head to the ground was not able to use a walker at that time. Related Data Home Medications ?Medication ?Instructions ?Recorded ?Confirmed blood sugar diagnostic (FreeStyle 03/28/20 09/09/22 Lite Strips) blood-glucose meter (FreeStyle 03/28/20 09/09/22 [place] Lite kit) lancets 28 gauge (FreeStyle 03/28/20 09/09/22 Lancets) omeprazole 40 mg capsule,delayed 40 mg PO BID@0630,1630 10/02/21 04/08/24 release blood pressure test kit-large #1 ea 10/12/21 09/09/22 atorvastatin 80 mg tablet 80 mg PO DAILY 12/20/21 04/08/24 nebulizers 01/20/22 09/09/22 amlodipine 10 mg tablet 10 mg PO DAILY 05/29/22 04/08/24 aspirin 81 mg tablet,delayed 81 mg PO DAILY 05/29/22 04/08/24 release lancets 33 gauge (TRUEplus Lancets) #100 ea 06/07/22 09/09/22 trazodone 50 mg tablet 100 mg PO BEDTIME PRN Sleep 06/07/22 04/08/24 cholecalciferol (vitamin D3) 50 50 mcg PO DAILY 11/24/22 04/08/24 mcg (2,000 unit) tablet ferrous gluconate 324 mg (38 mg 324 mg PO DAILY 11/24/22 04/08/24 iron) tablet insulin aspart 6 - 8 unit subcut TID 10/27/23 04/08/24 (niacinamide)(U-100) 100 unit/mL(3 mL) subcutaneous pen (Fiasp FlexTouch U-100 Insulin) acetaminophen 650 mg 650 mg PO Q8H PRN mild pain 03/22/24 04/08/24 tablet,extended release diclofenac sodium 1 % topical gel 2 g topical BEDTIME PRN Pain 03/22/24 04/08/24 losartan 100 mg tablet 100 mg PO BID 03/22/24 04/08/24 valproic acid 250 mg capsule 1,000 mg PO BID 03/22/24 04/08/24 Previous Rx's ?Medication ?Instructions ?Recorded levetiracetam 500 mg tablet 500 mg PO BID #60 tabs 11/03/23 phenytoin sodium extended 100 mg 100 mg PO TID #90 caps 11/03/23 capsule (Dilantin Extended) folic acid 1 mg tablet 1 mg PO DAILY #90 tabs 04/02/24 amoxicillin 250 mg-potassium 1 tab PO BID #12 tabs 04/09/24 clavulanate 125 mg tablet doxycycline monohydrate 100 mg 100 mg PO BID #12 tabs 04/09/24 tablet Allergies Allergy/AdvReac Type Severity Reaction Status Date / Time Egg Derived Allergy Unknown Verified 05/04/24 01:05 Review of Systems Review of Systems: Yes all other systems are reviewed and are negative [facility] Past Medical History Medical History ESRD (end stage renal disease) Generalized seizure Acute kidney injury CKD (chronic kidney disease) stage 3, GFR 30-59 ml/min CHF (congestive heart failure) Anemia Brain tumor (benign) Lower extremity edema Pneumonia Asthma Pulmonary nodule HLD (hyperlipidemia) Seizure Acute hypoxemic respiratory failure due to COVID-19 COVID-19 Kidney stone Depression Gastritis Diabetes Surgical History 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) H/O lithotripsy H/O ureteroscopy H/O cystoscopy S/P ureteral stent placement History of cholecystectomy H/O hernia repair Family History Family History Father CAD (coronary artery disease) Brother Lung cancer Sister Kidney stone Social History Social History Household Members: Children Housing: House Do you presently have visiting nurse or other home services: Yes (daughter is farm equipment engineer, vna 2x week.) Alcohol intake: former Comment: pt sleeping at this time Patient Tobacco Use Status: Never used Tobacco Smoked in Last 30 Days: No e-Cigarette/Vaping Use: Never Used Use of substances other than those prescribed or required for medical reasons: No Advance Directives: Yes Advance Directives on File: Yes Advance Directives Date on File: 12/20/21 service: No Current occupational status: unemployed Physical Exam Vital Signs: Vital Signs: Last Vital Signs Temp 99.8 F 05/04/24 06:48 Pulse 94 05/04/24 06:48 Resp 26 H 05/04/24 06:48 BP 121/55 L 05/04/24 06:48 Pulse Ox 97 05/04/24 06:48 O2 Del Method Room Air 05/04/24 06:48 BMI result Body Mass Index 41.3 Appearance: Alert. Oriented X3. No acute distress. Eyes: PERRLA, No Nystagmus HEENT: Pharynx normal. Oral Mucosa moist small laceration at the occipital area Neck: Normal inspection. Neck supple. In cervical collar no midline tenderness CVS: Normal heart rate and rhythm. Pulses normal. Respiratory: No respiratory distress. Equal air entry bilateral, no wheezing/rales/rhonchi Abdomen: Soft and nontender. Bowel sounds are present, no mass palpable, no CVA tenderness Skin: Skin warm and dry. Normal skin color. Normal skin turgor. Extremities:2+ lower extremity edema. No calf tenderness healing wound on the left foot Neuro: Oriented X 3. No motor deficit. No sensory deficit.No cerebellar signs , cranial nerves II-XII intact Medications Administered Discontinued Medications Generic Name Dose Route Start Last Admin Trade Name Evangelistaq PRN Reason Stop Dose Admin Acetaminophen 650 mg 05/04/24 05:09 05/04/24 05:17 Acetaminophen 325 Mg Tablet PO 05/04/24 05:10 650 mg ONCE ONE Administration Procedures Laceration Laceration 1: Site: scalp Size (cm): 4 Description: linear Depth: simple, single layer Skin layer closed with: other (Six zeyad) Medical Decision Making Medical Decision Making MDM Narrative: Patient with history of end-stage renal disease on baby aspirin comes here after mechanical fall with small laceration occipital area GCS 15 CT scan of the head showed 4 mm parafalcine subdural hematoma case discussed with neurosurgery at [facility] no need for transfer repeat CT scan in 6 hours if no expansion of the hematoma no further follow up required patient is signed out to Dr. Wright pending repeat CT scan patient's GCS remained 15 with no significant headache or neuro deficit patient has received 1 unit of PRBC Differential Diagnosis Differential Diagnoses: The differential diagnosis associated with the presentation includes Lab Data MDM Lab Attestation statement: I reviewed the patient's lab results. 05/04/24 01:41 05/04/24 01:41 Labs: Lab Results 05/04/24 05/04/24 Range/Units 01:41 03:30 WBC 15.5 H (4.8-10.8) X10*3/uL RBC 1.93 L D (4.20-5.50) X10*6/uL Hgb 6.0 L* D (12.0-16.0) g/dl Hct 17.5 L* D (37.0-47.0) % MCV 90.7 (80.0-98.0) fL MCH 31.1 (27.0-33.0) pg MCHC 34.3 (31.0-35.0) g/dl RDW 18.7 H (11.0-16.0) % Plt Count 101 L D (160-400) X10*3/uL MPV 12.2 (9.4-12.3) fL Immature Gran % (Auto) 1.9 H (0.0-0.4) % Neut % (Auto) 83.0 H (45-73) % Lymph % (Auto) 7.1 L (20-40) % Payne % (Auto) 6.3 (2-11) % Eos % (Auto) 1.2 (0-4) % Baso % (Auto) 0.5 (0-2) % Lymph # (Auto) 1.1 L (1.2-4.9) X10*3/uL Payne # (Auto) 1.0 (0.1-1.2) X10*3/uL Eos # (Auto) 0.2 (0.0-0.4) X10*3/uL Baso # (Auto) 0.1 (0.0-0.2) X10*3/uL Abs Immat Gran (auto) 0.30 H (0.00-0.03) X10*3/uL Absolute Neuts (auto) 12.8 H (2.0-8.3) x10*3/uL Absolute Nucleated RBC 0.000 (0.0-0.012) X10*3/uL Nucleated RBC % (auto) 0.0 (0.0-0.2) /100WBC Sodium 140 (135-145) mmol/L Potassium 4.1 (3.3-5.1) mmol/L Chloride 101 (96-108) mmol/L Carbon Dioxide 23 (22-29) mmol/L Anion Gap 20 (12-20) BUN 69 H (9-16) mg/dL Creatinine 5.48 H* (0.5-1.4) mg/dL Estim Creat Clear Calc 11.1 Estimated GFR 8 Random Glucose 244 H (60-115) mg/dL Calcium 7.9 L (8.4-10.2) mg/dL Total Bilirubin 0.2 (0.0-1.0) mg/dL AST 22 (5-31) U/L ALT 6 (0-31) U/L Alkaline Phosphatase 129 H (39-117) U/L Total Protein 7.1 (6.5-8.0) g/dL Albumin 2.8 L (3.5-5.0) g/dL Blood Type O Positive Antibody Screen NEGATIVE Crossmatch See Detail Radiology Impression Discussion of test interpretation with radiology: I have reviewed the radiologist's reading. Radiologist Impression: Small right parafalcine subdural hematoma. Nonemergent/incidental findings in the report. Discharge Plan Discharge Clinical Impression: Acute subdural hematoma, ESRD (end stage renal disease), Anemia of chronic renal failure, stage 4 (severe), Laceration of occipital scalp, Fall Patient Disposition: Still a Patient Prescriptions: No Action (DME) FreeStyle Lite Strips Strip MISCELLANEOUS QID (DME) blood-glucose meter [FreeStyle [place] Lite] Kit MISCELLANEOUS BID (DME) lancets [FreeStyle Lancets] 28 gauge misc 1 gauge topical BID omeprazole 40 mg capsule,delayed release(DR/EC) 40 mg PO BID@0630,1630 atorvastatin 80 mg tablet 80 mg PO DAILY aspirin 81 mg tablet,delayed release (DR/EC) 81 mg PO DAILY amlodipine 10 mg tablet 10 mg PO DAILY Fiasp FlexTouch U-100 Insulin 100 unit/mL (3 mL) insulin pen 6 - 8 unit subcut TID levetiracetam 500 mg Tablet 500 mg PO BID Qty: 60 2RF phenytoin sodium extended [Dilantin Extended] 100 mg Capsule 100 mg PO TID Qty: 90 2RF ferrous gluconate 324 mg (38 mg iron) tablet 324 mg PO DAILY cholecalciferol (vitamin D3) 50 mcg (2,000 unit) Tablet 50 mcg PO DAILY valproic acid 250 mg capsule 1,000 mg PO BID acetaminophen 650 mg tablet extended release 650 mg PO Q8H PRN (Reason: mild pain) losartan 100 mg tablet 100 mg PO BID diclofenac sodium 1 % gel 2 g topical BEDTIME PRN (Reason: Pain) Rx Instructions: APPLY 2 GRAMS TOPICALLY TO FEET AT BEDTIME NEEDED folic acid 1 mg Tablet 1 mg PO DAILY Qty: 90 0RF doxycycline monohydrate 100 mg tablet 100 mg PO BID Qty: 12 0RF amoxicillin-pot clavulanate 250-125 mg tablet 1 tab PO BID Qty: 12 0RF (DME) blood pressure test kit-large Kit See Rx Instructions .ROUTE DAILY Qty: 1 Rx Instructions: As directed (DME) nebulizers Misc See Rx Instructions .Route Rx Instructions: As directed trazodone 50 mg tablet 100 mg PO BEDTIME PRN (Reason: Sleep) (DME) lancets [TRUEplus Lancets] 33 gauge misc See Rx Instructions .ROUTE BID Qty: 100 Rx Instructions: As directed Print Language: Danish
[2024-05-04 01:45] LABS: MANUAL DIFF FLAG NO
[2024-05-04 01:57] LABS: Basophils Absolute Auto 0.1 X10*3/uL (0.0-0.2); Basophils Percent Auto 0.5 % (0-2); Eosinophils Absolute Auto 0.2 X10*3/uL (0.0-0.4); Eosinophils Percent Auto 1.2 % (0-4); Imm Gran Pct Auto 1.9 % (0.0-0.4); Lymphocytes Absolute Auto 1.1 X10*3/uL (1.2-4.9); Lymphocytes Percent Auto 7.1 % (20-40); Mean Corpuscular HGB Conc 34.3 g/dl (31.0-35.0); Mean Corpuscular Hemoglobin 31.1 pg (27.0-33.0); Mean Corpuscular Volume 90.7 fL (80.0-98.0); Mean Platelet Volume 12.2 fL (9.4-12.3); Monocytes Percent Auto 6.3 % (2-11); Neutrophils Absolute Auto 12.8 x10*3/uL (2.0-8.3); Platelet Count 101 X10*3/uL (160-400); Red Blood Count 1.93 X10*6/uL (4.20-5.50); Red Cell Distribution Width 18.7 % (11.0-16.0); White Blood Count 15.5 X10*3/uL (4.8-10.8)
[2024-05-04 01:59] LABS: Hematocrit 17.5 % (37.0-47.0)
[2024-05-04 02:10] LABS: Alanine Aminotransferase 6 U/L (0-31); Albumin Level 2.8 g/dL (3.5-5.0); Alkaline Phosphatase 129 U/L (39-117); Anion Gap 20 (12-20); Aspartate Amino Transferase 22 U/L (5-31); Bilirubin Total 0.2 mg/dL (0.0-1.0); Blood Urea Nitrogen 69 mg/dL (9-16); Calcium 7.9 mg/dL (8.4-10.2); Carbon Dioxide 23 mmol/L (22-29); Chloride 101 mmol/L (96-108); Creatinine Clr Calc Pharmacy 11.1; Estimated Glomerular Filt Rate 8; Glucose Random 244 mg/dL (60-115); Potassium 4.1 mmol/L (3.3-5.1); Sodium 140 mmol/L (135-145); Total Protein 7.1 g/dL (6.5-8.0)
[2024-05-04] MEDS: Acetaminophen 325 MG TABLET 650 MG PO (05:17)
--- NOTE | 2024-05-04 05:26 | PC.NURSE ---
pt noted to have rectal temp of 100.6, MD Louie aware, Tylenol PO given per MD order.
[2024-05-04] MEDS: cefTRIAXone sodium 1 GM VIAL IVPUSH (08:27)
[2024-05-04] MEDS: Morphine Sulfate 2 MG/ML CARTRIDGE 1 MG IVPUSH ×2 (08:41→12:48)
[2024-05-04] MEDS: vancomycin HCL 1,000 MG in 0.9 % Sodium Chloride 250 ML 270 MG IV (08:51)
[2024-05-04] MEDS: 0.9 % Sodium Chloride 500 ML 250 ML IV (08:55)
--- NOTE | 2024-05-04 09:01 | PC.NURSE ---
Assumed care of pt at 0700. 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 1 unit RBC infusing per APR, attempted to obtain addition IV access with multiple RNs, pt difficult stick. Pt rectal temp 100.7, tachycardic, increased WBC- MD Wright aware, sepsis alert called @0806. Multiple wounds noted to right hip, right heel, left foot. Pictures sent to MD Wright, wounds cleaned and redressed, allevyn dressing placed, pt repositioned off right hip with pillows. Medicated per APR with Morphine for pain, pt stated 8/10 pain to R hip. Cultures obtained and IV abx given, fluids/abx infusing per APR. Vitals taken and updated, call flannery within reach, all needs met at this time.
[2024-05-04 09:03] LABS: Lactic Acid 2.2 mmol/L (0.5-2.0)
[2024-05-04 10:41] LABS: Reflex Lactate? Lactic Acid Added
--- NOTE | 2024-05-04 10:44 | PC.NURSE ---
Per Elboy, only give 250ml of NS. 250ml wasted, reflected in MAR.
[2024-05-04 11:36] LABS: ~Lactic Acid-LAB USE ONLY 1.6 mmol/L (0.5-2.0)
[2024-05-04] MEDS: 0.9 % Sodium Chloride 500 ML IV (11:56)
--- NOTE | 2024-05-04 11:59 | PC.NURSE ---
MD Wright notified of pt soft bp 99/57. Verbal order for 500ml bolus of NS per MD Wright. Fluids infusing per MAR, bp cycling q 10min to monitor. Call flannery within reach, all needs met at this time.
--- NOTE | 2024-05-04 12:36 | P.HPHOSP_ITS ---
History of Present Illness Date of Service: 05/04/24 Attending physician on admission: Juan Nogueira Chief Complaint: Fall at home Pt is a 68-year-old female with a PMH significant for?ESRD on HD M/W/F, HFpEF,aeizure disorder, insulin-dependent type 2 diabetes, hx of osteomyelitis s/p left 5th toe amp on 03/28/2024, anemia of chronic disease requiring frequent transfusions, asthma, HTN, and GERD who presents to the ED after fall at home earlier this morning as pt was ambulating to the bathroom. Pt uses walker at home. Reports feeling ?shaky? and legs gave out while in the living room. Pt fell backwards, striking her head on a side table and also landing on her back and right hip. Pt lives with family and daughter primarily takes care of her. Pt did not want to wake daughter to help to the bathroom. Pt denies LOC, lightheadedness, or dizziness. Small initial headache that soon resolved. Pt with hx falls, reports last fell 3 weeks ago. Pt is supposed to have VNA services twice a week especially with help for wound care, but pt reports no one has stopped by for the past 2 weeks. Daughter has been taking care of and re- dressing wounds. Pt reports has areas of bruising on torso and lower extremities secondary to falls. Chronic back and lower extremity musculoskeletal pain around baseline. Currently pt denies lightheadedness, dizziness. No headache or acute vision changes. Denies shortness or breath or difficulty breathing. No cough. Denies chest pain/pressure, palpitations. CTA of head showed small subdural hematoma. Patient's GCS 15. ED clinician reached out to [facility] neurosurgery who recommended repeat CT in 6 hours time and if stable no further intervention required at this time. Repeat CT showed tiny stable subdural hematoma. GCS continued to be 15. In the ED pt with low-grade fever of 100.7, tachycardia up to 104, tachypnea up to 26, and soft BP as low as 99/57. Labs were significant for chronic leukocytosis slightly above baseline at 15.5, H&H 6.0/17.5, creatinine 5.48, initial lactic acid 2.2 with repeat 1.6, albumin 2.8. No significant electrolyte abnormalities. CTA of head showed small focal hyperdense parafalcine subdural hematoma up to 4 mm in thickness without mass effect, midline shift, or hydrocephalus. Repeat CT 6 hours with stable subdural hematoma. CT of cervical spine negative for acute findings. CXR showed probable right lower lobe pneumonia. EKG demonstrated normal sinus rhythm without evidence of significant ST elevations or depressions. Pt was treated with acetaminophen, morphine IVF, vancomycin and ceftriaxone. Pt was also transfused two units PBRCs. Pt will be admitted to the hospital for treatment further evaluation of multiple issues, including subdural hematoma s/p fall at home, and generalized weakness with fall at home in the setting of acute on chronic anemia, cellulitis with sepsis secondary to chronic diabetic foot ulcer, at community-acquired pneumonia. Review of Systems 2 Review of Systems: Negative except for that which is stated in the HPI. [facility] Medical History ESRD (end stage renal disease) Generalized seizure Acute kidney injury CKD (chronic kidney disease) stage 3, GFR 30-59 ml/min CHF (congestive heart failure) Anemia Brain tumor (benign) Lower extremity edema Pneumonia Asthma Pulmonary nodule HLD (hyperlipidemia) Seizure Acute hypoxemic respiratory failure due to COVID-19 COVID-19 Kidney stone Depression Gastritis Diabetes Family History Father CAD (coronary artery disease) Brother Lung cancer Sister Kidney stone Surgical History 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) H/O lithotripsy H/O ureteroscopy H/O cystoscopy S/P ureteral stent placement History of cholecystectomy H/O hernia repair Social History Household Members: Children Housing: House Do you presently have visiting nurse or other home services: Yes (daughter is retail security professional, vna 2x week.) Alcohol intake: former Comment: pt sleeping at this time Patient Tobacco Use Status: Never used Tobacco Smoked in Last 30 Days: No e-Cigarette/Vaping Use: Never Used Use of substances other than those prescribed or required for medical reasons: No Advance Directives: Yes Advance Directives on File: Yes Advance Directives Date on File: 12/20/21 service: No Current occupational status: unemployed Meds Allergies Allergy/AdvReac Type Severity Reaction Status Date / Time Egg Derived Allergy Unknown Verified 05/04/24 01:05 Active Medications: Current Medications Acetaminophen (Acetaminophen 325 Mg Tablet) 650 mg PO Q6H PRN PRN Reason: Pain, Mild 1-3,fever,headache Calcium Carbonate (Calcium Carbonate 750 Mg Tab.Chew) 750 mg PO Q4H PRN PRN Reason: Heartburn Ceftriaxone Sodium (Ceftriaxone Sodium 1 Gm Vial) 1 gm IVPUSH Q24H KATHERINE Magnesium Hydroxide (Milk Of Magnesia 30 Ml Oral.Susp) 30 ml PO DAILY PRN PRN Reason: Constipation Melatonin (Melatonin 3 Mg Tablet) 6 mg PO BEDTIME PRN PRN Reason: Insomnia Morphine Sulfate (Morphine Sulfate 2 Mg/Ml Cartridge) 1 mg IVPUSH Q4H PRN; Protocol PRN Reason: Pain, Severe (Pain Scale 7-10) Pharmacy Consult (Consult Rx Vancomycin Dosing) 1 each MISCELLANE DAILY PRN PRN Reason: Consult order Sodium Chloride (0.9 % Sodium Chloride Flush 3 Ml Syringe) 3 ml IVFLUSH QSHIFT [facility] Home Medications ?Medication ?Instructions ?Recorded ?Confirmed ?Last Taken ?Type blood sugar diagnostic (FreeStyle 03/28/20 09/09/22 Unknown History Lite Strips) blood-glucose meter (FreeStyle 03/28/20 09/09/22 Unknown History [place] Lite kit) lancets 28 gauge (FreeStyle 03/28/20 09/09/22 Unknown History Lancets) omeprazole 40 mg capsule,delayed 40 mg PO BID@0630,1630 10/02/21 04/08/24 03/21/24 History release blood pressure test kit-large #1 ea 10/12/21 09/09/22 Unknown History atorvastatin 80 mg tablet 80 mg PO DAILY 12/20/21 04/08/24 03/21/24 History nebulizers 01/20/22 09/09/22 Unknown History amlodipine 10 mg tablet 10 mg PO DAILY 05/29/22 04/08/24 03/21/24 History aspirin 81 mg tablet,delayed 81 mg PO DAILY 05/29/22 04/08/24 03/21/24 History release lancets 33 gauge (TRUEplus Lancets) #100 ea 06/07/22 09/09/22 Unknown History trazodone 50 mg tablet 50 mg PO BEDTIME Sleep 06/07/22 04/08/24 10/26/23 History cholecalciferol (vitamin D3) 50 50 mcg PO DAILY 11/24/22 04/08/24 03/21/24 History mcg (2,000 unit) tablet ferrous gluconate 324 mg (38 mg 324 mg PO DAILY 11/24/22 04/08/24 03/21/24 History iron) tablet insulin aspart 6 - 8 unit subcut TIDAC 10/27/23 04/08/24 03/21/24 History (niacinamide)(U-100) 100 unit/mL(3 mL) subcutaneous pen (Fiasp FlexTouch U-100 Insulin) acetaminophen 650 mg 650 mg PO Q8H PRN mild pain 03/22/24 04/08/24 Unknown History tablet,extended release diclofenac sodium 1 % topical gel 2 g topical BEDTIME PRN Pain 03/22/24 04/08/24 03/21/24 History losartan 100 mg tablet 100 mg PO BID 03/22/24 04/08/24 03/21/24 History valproic acid 250 mg capsule 1,000 mg PO BID 03/22/24 04/08/24 03/21/24 History furosemide 40 mg tablet 80 mg PO BID 05/04/24 Unknown History gabapentin 300 mg capsule 300 mg PO Q OTHER DAY 05/04/24 Unknown History insulin glargine 100 unit/mL (3 30 unit subcut BID 05/04/24 Unknown History mL) subcutaneous pen (Basaglar KwikPen U-100 Insulin) lorazepam 0.5 mg tablet 0.5 mg PO DAILY PRN anxiety 05/04/24 Unknown History sertraline 50 mg tablet 100 mg PO DAILY 05/04/24 Unknown History zolpidem 5 mg tablet 5 mg PO BEDTIME PRN insomnia 05/04/24 Unknown History Physical Exam 2 Vital Signs and Narrative: Vital Signs: Last Vital Signs Temp 98.9 F 05/04/24 12:29 Pulse 102 H 05/04/24 12:29 Resp 18 05/04/24 12:29 BP 131/54 L 05/04/24 12:29 Pulse Ox 99 05/04/24 12:29 O2 Del Method Room Air 05/04/24 12:29 BMI result Body Mass Index 41.3 Constitutional: Alert, in no acute distress. Mental Status: Oriented to person, place and time. Eyes: Pupils are equal, round, and reactive to light. Ear, Nose, and Throat: Oropharynx clear, mucous membranes moist. Ears and nose without deformities. Trachea midline. Respiratory: Clear to auscultation bilaterally. No wheezing, rales, or rhonchi. Cardiovascular: S1, S2 regular. No murmurs, rubs, or gallops. Gastrointestinal: Abdomen soft, non-tender, non-distended. Normal bowel sounds. Large reducible, non-tender ventral hernia. Neurologic: Cranial nerves II-XII are grossly intact bilaterally. No focal neurological deficits. Moves all extremities spontaneously. Skin: Pt with multiple areas of bruising and scabbing on flank and side bilaterally, right >left. As pictured below. Extremities: Left right foot s/p fifth digit amputation. Area with warmth and erythema. As pictured below. Right heel as pictured below. Psychiatric: Normal mood and affect. Results Labs 05/04/24 01:41 05/04/24 01:41 Labs: Laboratory Results - last 24 hr 05/04/24 05/04/24 05/04/24 01:41 03:30 08:25 MCV 90.7 MCH 31.1 MCHC 34.3 RDW 18.7 H Plt Count 101 L D MPV 12.2 Immature Gran % (Auto) 1.9 H Neut % (Auto) 83.0 H Lymph % (Auto) 7.1 L Hand % (Auto) 6.3 Eos % (Auto) 1.2 Baso % (Auto) 0.5 Lymph # (Auto) 1.1 L Hand # (Auto) 1.0 Eos # (Auto) 0.2 Baso # (Auto) 0.1 Abs Immat Gran (auto) 0.30 H Absolute Neuts (auto) 12.8 H Absolute Nucleated RBC 0.000 Nucleated RBC % (auto) 0.0 Anion Gap 20 Estim Creat Clear Calc 11.1 Estimated GFR 8 Random Glucose 244 H Lactic Acid 2.2 H* Lactic Acid F/U @ 2Hr Calcium 7.9 L Total Bilirubin 0.2 AST 22 ALT 6 Alkaline Phosphatase 129 H Total Protein 7.1 Albumin 2.8 L Blood Type O Positive Antibody Screen NEGATIVE Crossmatch See Detail 05/04/24 11:09 MCV MCH MCHC RDW Plt Count MPV Immature Gran % (Auto) Neut % (Auto) Lymph % (Auto) Hand % (Auto) Eos % (Auto) Baso % (Auto) Lymph # (Auto) Hand # (Auto) Eos # (Auto) Baso # (Auto) Abs Immat Gran (auto) Absolute Neuts (auto) Absolute Nucleated RBC Nucleated RBC % (auto) Anion Gap Estim Creat Clear Calc Estimated GFR Random Glucose Lactic Acid Lactic Acid F/U @ 2Hr 1.6 Calcium Total Bilirubin AST ALT Alkaline Phosphatase Total Protein Albumin Blood Type Antibody Screen Crossmatch Assessment and Plan (1) Cellulitis: Status: Acute (2) Acute subdural hematoma: Status: Acute Plan Pt is a 68-year-old female with a PMH significant for?ESRD on HD M/W/F, HFpEF, seizure disorder, insulin-dependent type 2 diabetes, hx of osteomyelitis s/p left 5th toe amp on 03/28/2024, anemia of chronic disease requiring frequent transfusions, asthma, HTN, and GERD who presents to the ED after fall at home earlier this morning as pt was ambulating to the bathroom. Pt will be admitted to the hospital for treatment further evaluation of multiple issues, including subdural hematoma s/p fall at home, and generalized weakness with fall at home in the setting of acute on chronic anemia, cellulitis with sepsis secondary to chronic diabetic foot ulcer, at community-acquired pneumonia. Subdural hematoma CT small right parafalcine subdural hematoma up to 4 mm in thickness; repeat CT 6 hours later stable S/p fall at home with head strike on table; no LOC; neuro exam intact; pt AO x3; GCS 15 ED clinician contacted Neurosurgery at [facility] who said no intervention necessary Spoke with Neurology here who was in agreement with admission and observation Hold aspirin Check hip x-ray PT consult Monitor mentation Left foot cellulitis with sepsis S/P fifth digit amputation d/t diabetic foot infection osteomyelitis on 03/28/2024 Meets sepsis criteria with tachycardia, tachypnea and leukocytosis above baseline; lactic acid 2.2 repeat 1.5 Pt receiving IVF and started on broad-spectrum antibiotics in the ED Will treat with vancomycin and Zosyn, started 05/04/2024 General surgery consult for wound care recommendations and possible debridement Follow cultures Skin lesions Pt with multiple areas of wounds in various stages of healing Most prominent right heel and right flank General surgery consult as above for wound care recommendations and possible debridement Acute on chronic anemia of chronic disease H&H 6.0/17.5 at time presentation, reduced from 9.9/29.8 on 04/09/2024 Pt not on thinners, denies hematochezia or melena Pt requiring multiple transfusions in the past Received 2 units PRBCs in the ED Follow H&H, transfuse as necessary Question of community-acquired pneumonia CXR showed probable right lower lobe pneumonia Will cover with antibiotics as above Pt not hypoxic, not requiring supplemental O2 ESRD on HD M/W/F Last dialyzed yesterday Nephrology consult, follows with [facility]ANE Follow BMP Insulin-dependent type 2 diabetes Sliding-scale insulin, Lantus Diabetic diet Seizure disorder Continue levetiracetam, valproate, and phenytoin HTN Continue and losartan Mood disorder Continue sertraline, lorazepam Full Code Attending:?Dr. Nogueira DVT Prophylaxis: Pneumatic compression Pt will require a hospitalization of at least two nights for treatment and further evaluation of multiple issues, including subdural hematoma s/p fall at home, and generalized weakness with fall at home in the setting of acute on chronic anemia, cellulitis with sepsis secondary to chronic diabetic foot ulcer, at community-acquired pneumonia. Quality Stroke Does the patient have a stroke diagnosis?: No VTE Prior VTE?: No VTE Risk Level:: Medical - moderate - high VTE Device Contraindication: N/A - Device Ordered VTE Drug Contraindication: Treatment Not Indicated
--- NOTE | 2024-05-04 13:22 | PC.NURSE ---
Assumed care of this patient at 1300, patient currently tough christian, US guided trained nurse messaged to get patient second line. DHARA Franklin to come down to talk to patient & family RE: plan of care. Pictures taken by previous RN Heather sent to both ED provider and admitting provider, also attached to chart here.
[2024-05-04] MEDS: Piperacillin Sodium/Tazobactam 2.25 GM in 0.9 % Sodium Chloride 50 ML IV (14:19)
--- NOTE | 2024-05-04 14:41 | PC.NURSE ---
Patient yelling out constantly about pain, DHARA Franklin and Chad forest fire fighter at bedside w/ this RN. Per patient's daughter patient intermittently yells out in pain constantly since she has started dialysis, patient unable to elaborate on where the pain is beyond her legs nor what the pain feels like. Rigoberto to order additonal pain meds, awaiting orders.
[2024-05-04] MEDS: Morphine Sulfate 2 MG/ML CARTRIDGE IVPUSH (15:12)
[2024-05-04] MEDS: 0.9 % Sodium Chloride Flush 3 ML SYRINGE IVFLUSH (15:13)
[2024-05-04 15:25] LABS: Appearance Urine Turbid; Color Urine Yellow; Glucose Urine UA Negative (Negative); Leukocyte Esterase Urine Large (3+) (Negative); Nitrite Urine Negative (Negative); Specific Gravity - Urine 1.025 (1.005-1.025); UMIC TRIGGER UACC YES; Urine Blood Small (1+) (Negative); Urine Ketones Trace mg/dL (Negative); Urine Protein >=1000 (4+) mg/dL (Neg-Trace)
[2024-05-04 15:35] LABS: Bacteria Urine 4+ (None Seen); Hyaline Casts Urine 0-2 /LPF (0-2); Squamous Epithelial Cell Urine >20 /HPF (0-2); UACC Culture Trigger YES; WBC Urine >50 /HPF (0-5)
[2024-05-04 16:40] LABS: Hematocrit 23.5 % (37.0-47.0); Hemoglobin 7.8 g/dl (12.0-16.0)
--- NOTE | 2024-05-04 17:02 | PHA.MEDREC ---
Pharmacy Consult ? Medication Reconciliation Pharmacy has completed the medication reconciliation. Utilized platform attendant services. Pt is poor historian of medications, instructed to call daughter. Called daughter twice and left a message for callback - still no response. Utilized pharmacy claim history and recent discharge packet from 03/2024 to confirm meds. Pt was able to tell me that she takes Basaglar 30 units at bedtime only and stated to not use a rapid acting insulin, despite having recent claim history for Fiasp. Leaving fiasp off med rec d/t pt acknowledging use of only long acting Basaglar insulin.
[2024-05-04 20:09] LABS: Glucose, Whole Blood 158 mg/dL (60-115)
[2024-05-04] MEDS: Furosemide 40 MG TABLET 80 MG PO (20:37)
[2024-05-04] MEDS: Insulin Glargine,Hum.rec.anlog 100 UNIT/ML 10 ML VIAL 21 UNIT SUBCUT (20:38)
[2024-05-04] MEDS: Phenytoin Sodium Extended 100 MG CAPSULE PO (20:38)
[2024-05-04] MEDS: Valproic Acid 250 MG CAPSULE 1000 MG PO (20:38)
[2024-05-04] MEDS: Insulin Lispro 100 UNIT/ML 3 ML VIAL SUBCUT (20:38)
[2024-05-04] MEDS: traZODone HCL 100 MG TABLET PO (20:38)
[2024-05-04] MEDS: Melatonin 3 MG TABLET 6 MG PO (20:38)
--- NOTE | 2024-05-04 21:32 | PC.NURSE ---
Summary of care for report thus far: Patient presented to ED after mechanical fall at home. PMH: ESRD on HD M/W/F (last session 05/03 R chest port - Nephro following) HFpEF, seizure disorder, insulin-dependent type 2 diabetes(ACHS POC), osteomyelitis s/p left 5th toe amp on 03/28/2024, anemia of chronic disease requiring frequent transfusions, asthma, HTN, and GERD. Patient + small subdural hematoma, neuro consult states no intervention needed. Patient found to have multiple significant wounds, worst on R heel, buttocks, L posterior calf, @ toe amp. Gen Surg consulted for possible I&D. All wounds dressed w/ Meplex. H&H low on presentation to ED, H&H improved after 2 units PRBCs. At some point patient spike temp, 100.7, full septic work up completed. Lactic 2.2, repeat 1.5. CXR shows ? pneumonia. Abx coverage for +uti, +pneumonia, ? cellulitis. Patient 2A roll in bed, PT consult placed, purewick in place, tough stick US guided IV L AC, positional 20 R AC. Czech speaking only, intermittently crying out in pain but goes back to sleep, Morphine ordered Q3 IV. DM diet, Pills whole okay, 2-3 at a time. Set up for meals.
[2024-05-05] VITALS (7 sets, daily range): BP systolic 114–147; BP diastolic 56–88; PULSE 80–103; RESP 18–20; TEMP 36.6–37.4; O2SAT 94–98
[2024-05-05 00:21] LABS: Glucose, Whole Blood 79 mg/dL (60-115)
[2024-05-05] MEDS: Morphine Sulfate 2 MG/ML CARTRIDGE IVPUSH ×2 (00:37→08:43)
[2024-05-05] MEDS: Piperacillin Sodium/Tazobactam 2.25 GM in 0.9 % Sodium Chloride 50 ML IV ×2 (01:06→16:22)
[2024-05-05] MEDS: 0.9 % Sodium Chloride Flush 3 ML SYRINGE IVFLUSH ×4 (01:07→22:40)
[2024-05-05] MEDS: Omeprazole 40 MG CAPSULE.DR PO ×2 (06:11→16:23)
[2024-05-05 07:05] LABS: Glucose, Whole Blood 55 mg/dL (60-115)
--- NOTE | 2024-05-05 07:17 | PC.NURSE ---
Left gluteal fold
[2024-05-05 07:33] LABS: Glucose, Whole Blood 70 mg/dL (60-115)
[2024-05-05] MEDS: Cholecalciferol (Vitamin D3) 25 MCG TABLET 50 MCG PO (08:35)
[2024-05-05] MEDS: Ferrous Sulfate 324 MG TABLET.DR PO (08:35)
[2024-05-05] MEDS: Furosemide 40 MG TABLET 80 MG PO ×2 (08:35→22:39)
[2024-05-05] MEDS: Phenytoin Sodium Extended 100 MG CAPSULE PO ×3 (08:35→22:39)
[2024-05-05] MEDS: Atorvastatin Calcium 80 MG TABLET PO (08:35)
[2024-05-05] MEDS: Valproic Acid 250 MG CAPSULE 1000 MG PO ×2 (08:35→22:39)
[2024-05-05] MEDS: Gabapentin 100 MG CAPSULE 200 MG PO (08:35)
[2024-05-05] MEDS: Folic Acid 1 MG TABLET PO (08:35)
[2024-05-05] MEDS: Sertraline HCL 100 MG TABLET PO (08:36)
[2024-05-05 09:07] LABS: Anion Gap 21 (12-20); Blood Urea Nitrogen 72 mg/dL (9-16); Carbon Dioxide 19 mmol/L (22-29); Chloride 104 mmol/L (96-108); Creatinine Clr Calc Pharmacy 10.4; Estimated Glomerular Filt Rate 7; Glucose Random 72 mg/dL (60-115); Potassium 4.7 mmol/L (3.3-5.1); Sodium 139 mmol/L (135-145)
[2024-05-05 09:16] LABS: Estimated Average Glucose 134 mg/dL; Hemoglobin A1C 73.2734 umol/L; Hemoglobin A1c % 6.3 % (<6.0)
--- NOTE | 2024-05-05 10:32 | P.CONGS_ITS ---
History of Present Illness Consult details Consult date: 05/05/24 Requesting physician: Juan Nogueira Narrative: 68-year-old female patient with a prior history of diabetes mellitus, osteomyelitis status post amputation of the left 5th toe performed on 03/28/[address] Vines. Surgical consultation was requested regarding possible infected wound. Her past history is significant for end-stage renal disease on hemodialysis (M/W/F), heart failure with preserved ejection fraction, seizure disorder, insulin-dependent type 2 diabetes, anemia of chronic disease, asthma, hypertension, GERD. She felt shaky at home and noted her legs gave out. She subsequently fell backwards striking her head on the side table. She subsequently presented to the emergency department and was noted to have a small subdural hematoma. Repeat CT after 6 hours per recommendation of [facility]surgery revealed stable subdural hematoma. She was admitted to the hospitalist service for further management of the subdural hematoma. Review of Systems 2 Review of Systems: Yes Unobtainable due to mental condition PMFSH Past Medical History Medical History ESRD (end stage renal disease) Generalized seizure Acute kidney injury CKD (chronic kidney disease) stage 3, GFR 30-59 ml/min CHF (congestive heart failure) Anemia Brain tumor (benign) Lower extremity edema Pneumonia Asthma Pulmonary nodule HLD (hyperlipidemia) Seizure Acute hypoxemic respiratory failure due to COVID-19 COVID-19 Kidney stone Depression Gastritis Diabetes Family History Family History Father CAD (coronary artery disease) Brother Lung cancer Sister Kidney stone Surgical History Surgical History 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) H/O lithotripsy H/O ureteroscopy H/O cystoscopy S/P ureteral stent placement History of cholecystectomy H/O hernia repair Social History Social History Household Members: Children Housing: House Do you presently have visiting nurse or other home services: Yes (daughter is ec teacher, vna 2x week.) Alcohol intake: former Comment: pt sleeping at this time Patient Tobacco Use Status: Never used Tobacco e-Cigarette/Vaping Use: Never Used Advance Directives Date on File: 12/20/21 service: No Current occupational status: unemployed Meds Allergies Allergy/AdvReac Type Severity Reaction Status Date / Time Egg Derived Allergy Unknown Verified 05/04/24 01:05 Active Medications: Current Medications Acetaminophen (Acetaminophen 325 Mg Tablet) 650 mg PO Q6H PRN PRN Reason: Pain, Mild 1-3,fever,headache Atorvastatin Calcium (Atorvastatin Calcium 80 Mg Tablet) 80 mg PO DAILY [facility] Last Admin: 05/05/24 08:35 Dose: 80 mg Calcium Carbonate (Calcium Carbonate 750 Mg Tab.Chew) 750 mg PO Q4H PRN PRN Reason: Heartburn Dextrose (Dextrose 50 % 25 Gm/50 Ml Syringe) 25 gm IVPUSH Q15M PRN; Protocol PRN Reason: per Hypoglycemia Standing Ord. Ferrous Sulfate (Ferrous Sulfate 324 Mg Tablet.Dr) 324 mg PO DAILY [facility] Last Admin: 05/05/24 08:35 Dose: 324 mg Folic Acid (Folic Acid 1 Mg Tablet) 1 mg PO DAILY [facility] Last Admin: 05/05/24 08:35 Dose: 1 mg Furosemide (Furosemide 40 Mg Tablet) 80 mg PO BID [facility]; Protocol Last Admin: 05/05/24 08:35 Dose: 80 mg Gabapentin (Gabapentin 100 Mg Capsule) 200 mg PO DAILY [facility] Last Admin: 05/05/24 08:35 Dose: 200 mg Gabapentin (Gabapentin 300 Mg Capsule) 300 mg PO MOWEFR@1800 [facility] Glucose (Glucose Gel 15 Gm Gel..Gram.) 15 gm PO Q15M PRN; Protocol PRN Reason: per Hypoglycemia Standing Ord. Vancomycin HCl 500 mg/ Sodium (Chloride) 110 mls @ 110 mls/hr IV ONCE ONE Stop: 05/04/24 13:44 Piperacillin Sod/Tazobactam (Sod 2.25 gm/ Sodium Chloride) 50 mls @ 100 mls/hr IV Q12H [facility] Last Infusion: 05/05/24 01:39 Dose: Infused Insulin Glargine (Insulin Glargine,Hum.Rec.Anlog 100 Unit/Ml 10 Ml Vial) 21 unit SUBCUT BEDTIME [facility] Last Admin: 05/04/24 20:38 Dose: 21 unit Insulin Human Lispro (Insulin Lispro 100 Unit/Ml 3 Ml Vial) 0 unit SUBCUT QIDACHS [facility]; Protocol Last Admin: 05/05/24 07:35 Dose: Not Given Levetiracetam (Levetiracetam 500 Mg Tablet) 500 mg PO MOWEFR@1800 [facility] Lorazepam (Lorazepam 0.5 Mg Tablet) 0.5 mg PO DAILY PRN PRN Reason: anxiety Magnesium Hydroxide (Milk Of Magnesia 30 Ml Oral.Susp) 30 ml PO DAILY PRN PRN Reason: Constipation Melatonin (Melatonin 3 Mg Tablet) 6 mg PO BEDTIME PRN PRN Reason: Insomnia Last Admin: 05/04/24 20:38 Dose: 6 mg Omeprazole (Omeprazole 40 Mg Capsule.Dr) 40 mg PO BID@0630,1630 [facility] Last Admin: 05/05/24 06:11 Dose: 40 mg Oxycodone HCl (Oxycodone Hcl Immed Release 5 Mg Tablet) 5 mg PO Q4H PRN PRN Reason: Pain, Moderate(Pain Scale 4-6) Pharmacy Consult (Consult Rx Vancomycin Dosing) 1 each MISCELLANE DAILY PRN PRN Reason: Consult order Phenytoin Sodium (Phenytoin Sodium Extended 100 Mg Capsule) 100 mg PO TID [facility] Last Admin: 05/05/24 08:35 Dose: 100 mg Sertraline HCl (Sertraline Hcl 100 Mg Tablet) 100 mg PO DAILY [facility] Last Admin: 05/05/24 08:36 Dose: 100 mg Sodium Chloride (0.9 % Sodium Chloride Flush 3 Ml Syringe) 3 ml IVFLUSH QSHIFT [facility] Last Admin: 05/05/24 08:36 Dose: 3 ml Trazodone HCl (Trazodone Hcl 100 Mg Tablet) 100 mg PO BEDTIME PRN PRN Reason: Sleep Last Admin: 05/04/24 20:38 Dose: 100 mg Valproic Acid (Valproic Acid 250 Mg Capsule) 1,000 mg PO BID [facility] Last Admin: 05/05/24 08:35 Dose: 1,000 mg Vitamin D (Cholecalciferol (Vitamin D3) 25 Mcg Tablet) 50 mcg PO DAILY [facility] Last Admin: 05/05/24 08:35 Dose: 50 mcg Home Medications ?Medication ?Instructions ?Recorded ?Confirmed ?Last Taken ?Type blood sugar diagnostic (FreeStyle 03/28/20 09/09/22 Unknown History Lite Strips) blood-glucose meter (FreeStyle 03/28/20 09/09/22 Unknown History [place] Lite kit) lancets 28 gauge (FreeStyle 03/28/20 09/09/22 Unknown History Lancets) omeprazole 40 mg capsule,delayed 40 mg PO BID@0630,1630 10/02/21 05/04/24 03/21/24 History release blood pressure test kit-large #1 ea 10/12/21 09/09/22 Unknown History atorvastatin 80 mg tablet 80 mg PO DAILY 12/20/21 05/04/24 03/21/24 History nebulizers 01/20/22 09/09/22 Unknown History amlodipine 10 mg tablet 10 mg PO DAILY 05/29/22 05/04/24 03/21/24 History aspirin 81 mg tablet,delayed 81 mg PO DAILY 05/29/22 05/04/24 03/21/24 History release lancets 33 gauge (TRUEplus Lancets) #100 ea 06/07/22 09/09/22 Unknown History trazodone 50 mg tablet 100 mg PO BEDTIME PRN Sleep 06/07/22 05/04/24 10/26/23 History cholecalciferol (vitamin D3) 50 50 mcg PO DAILY 11/24/22 05/04/24 03/21/24 History mcg (2,000 unit) tablet ferrous gluconate 324 mg (38 mg 324 mg PO DAILY 11/24/22 05/04/24 03/21/24 History iron) tablet acetaminophen 650 mg 650 mg PO Q8H PRN mild pain 03/22/24 05/04/24 Unknown History tablet,extended release diclofenac sodium 1 % topical gel 2 g topical BEDTIME PRN Pain 03/22/24 05/04/24 03/21/24 History losartan 100 mg tablet 100 mg PO BID 03/22/24 05/04/24 03/21/24 History valproic acid 250 mg capsule 1,000 mg PO BID 03/22/24 05/04/24 03/21/24 History furosemide 40 mg tablet 80 mg PO BID 05/04/24 05/04/24 Unknown History gabapentin 100 mg capsule 200 mg PO DAILY 05/04/24 05/04/24 Unknown History gabapentin 300 mg capsule 300 mg PO MOWEFR@1800 05/04/24 05/04/24 Unknown History insulin glargine 100 unit/mL (3 30 unit subcut BEDTIME 05/04/24 05/04/24 Unknown History mL) subcutaneous pen (Alda Hernandez U-100 Insulin) levetiracetam 500 mg tablet 500 mg PO MOWEFR@1800 05/04/24 05/04/24 Unknown History lorazepam 0.5 mg tablet 0.5 mg PO DAILY PRN anxiety 05/04/24 05/04/24 Unknown History sertraline 50 mg tablet 100 mg PO DAILY 05/04/24 05/04/24 Unknown History Physical Exam 2 Vital Signs: Vital Signs: Last Vital Signs Temp 98.2 F 05/05/24 07:28 Pulse 92 05/05/24 07:28 Resp 20 05/05/24 07:28 BP 114/64 05/05/24 08:35 Pulse Ox 94 05/05/24 07:28 O2 Del Method Room Air 05/05/24 07:28 BMI result Body Mass Index 41.3 Const: General: no acute distress Nutritional Appearance: well nourished Resp: Effort & Inspection: normal respiratory effort, no audible wheezes, no cough and no respiratory distress GI: Inspection: Yes normal to inspection Extrem: Other: Left foot: Status post amputation of left 5th toe. Incision is noted to be open with some surrounding callus formation. No purulence discharge was identified. Slight erythema is noted in the surrounding skin. Results Labs 05/04/24 16:30 05/05/24 08:02 Labs: Abnormal lab results 05/04/24 05/04/24 05/04/24 Range/Units 03:30 15:12 16:30 Hgb 7.8 L D (12.0-16.0) g/dl Hct 23.5 L D (37.0-47.0) % Carbon Dioxide (22-29) mmol/L Anion Gap (12-20) BUN (9-16) mg/dL Creatinine (0.5-1.4) mg/dL POC Glucose (60-115) mg/dL Hemoglobin A1c % (<6.0) % Calcium (8.4-10.2) mg/dL Urine Protein >=1000 (4+) H (Neg-Trace) mg/dL Urine Blood Small (1+) H (Negative) Ur Leukocyte Esterase Large (3+) H (Negative) Urine RBC 6-10 H (0-2) /HPF Urine WBC >50 H (0-5) /HPF Crossmatch See Detail 05/04/24 05/05/24 05/05/24 Range/Units 20:06 01:41 07:02 Hgb (12.0-16.0) g/dl Hct (37.0-47.0) % Carbon Dioxide (22-29) mmol/L Anion Gap (12-20) BUN (9-16) mg/dL Creatinine (0.5-1.4) mg/dL POC Glucose 158 H 55 L* (60-115) mg/dL Hemoglobin A1c % 6.3 H (<6.0) % Calcium (8.4-10.2) mg/dL Urine Protein (Neg-Trace) mg/dL Urine Blood (Negative) Ur Leukocyte Esterase (Negative) Urine RBC (0-2) /HPF Urine WBC (0-5) /HPF Crossmatch 05/05/24 Range/Units 08:02 Hgb (12.0-16.0) g/dl Hct (37.0-47.0) % Carbon Dioxide 19 L (22-29) mmol/L Anion Gap 21 H (12-20) BUN 72 H (9-16) mg/dL Creatinine 5.87 H* (0.5-1.4) mg/dL POC Glucose (60-115) mg/dL Hemoglobin A1c % (<6.0) % Calcium 8.0 L (8.4-10.2) mg/dL Urine Protein (Neg-Trace) mg/dL Urine Blood (Negative) Ur Leukocyte Esterase (Negative) Urine RBC (0-2) /HPF Urine WBC (0-5) /HPF Crossmatch Short CBC 05/04/24 Range/Units 16:30 Hgb 7.8 L D (12.0-16.0) g/dl Hct 23.5 L D (37.0-47.0) % BMP 05/05/24 08:02 Sodium 139 Potassium 4.7 Chloride 104 Carbon Dioxide 19 L BUN 72 H Creatinine 5.87 H* Calcium 8.0 L Urine 05/04/24 Range/Units 15:12 Urine Color Yellow Urine Appearance Turbid Urine pH 6.0 (5.0-9.0) Ur Specific [place] 1.025 (1.005-1.025) Urine Protein >=1000 (4+) H (Neg-Trace) mg/dL Urine Glucose (UA) Negative (Negative) mg/dL All other labs normal. Assessment and Plan (1) Diabetic infection of left foot: Status: Acute Plan 68-year-old female patient with history of diabetes mellitus, osteomyelitis involving the left 5th toe, status post amputation last month now with wound separation. Recommend applying silver alginate, fluff gauze and Kerlix on a daily basis to the left foot open wound. We will continue to monitor during her hospitalization. Procedures Date of Service Date of Service: 05/05/24
--- NOTE | 2024-05-05 10:43 | PM.NEUROCN ---
History of Present Illness Data of Consult Service Date: 05/05/24 Primary Care Provider: Lucrecia Teixeira MD [facility] Reason for consult: Intracranial hemorrhage 68 years old woman with obesity and end-stage renal disease had a mechanical fall at home hitting back of her head on the ground. She was brought to emergency room were head CT revealed a small intracranial hemorrhage prompting this admission and consultation. There was no evidence of any seizure. She was not complaining of any headache, even when asked about it. There was no focal weakness. Review of Systems Review of Systems: Generalized lethargy weakness and unsteadiness [facility] Past Medical History Medical History ESRD (end stage renal disease) Generalized seizure Acute kidney injury CKD (chronic kidney disease) stage 3, GFR 30-59 ml/min CHF (congestive heart failure) Anemia Brain tumor (benign) Lower extremity edema Pneumonia Asthma Pulmonary nodule HLD (hyperlipidemia) Seizure Acute hypoxemic respiratory failure due to COVID-19 COVID-19 Kidney stone Depression Gastritis Diabetes Family History Family History Father CAD (coronary artery disease) Brother Lung cancer Sister Kidney stone Surgical History Surgical History 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) H/O lithotripsy H/O ureteroscopy H/O cystoscopy S/P ureteral stent placement History of cholecystectomy H/O hernia repair Social History Social History Household Members: Children Housing: House Do you presently have visiting nurse or other home services: Yes (daughter is gritting machine operator, vna 2x week.) Alcohol intake: former Comment: pt sleeping at this time Patient Tobacco Use Status: Never used Tobacco e-Cigarette/Vaping Use: Never Used Advance Directives Date on File: 12/20/21 service: No Current occupational status: unemployed Meds Allergies Allergy/AdvReac Type Severity Reaction Status Date / Time Egg Derived Allergy Unknown Verified 05/04/24 01:05 Active Medications: Current Medications Acetaminophen (Acetaminophen 325 Mg Tablet) 650 mg PO Q6H PRN PRN Reason: Pain, Mild 1-3,fever,headache Atorvastatin Calcium (Atorvastatin Calcium 80 Mg Tablet) 80 mg PO DAILY [facility] Last Admin: 05/05/24 08:35 Dose: 80 mg Calcium Carbonate (Calcium Carbonate 750 Mg Tab.Chew) 750 mg PO Q4H PRN PRN Reason: Heartburn Dextrose (Dextrose 50 % 25 Gm/50 Ml Syringe) 25 gm IVPUSH Q15M PRN; Protocol PRN Reason: per Hypoglycemia Standing Ord. Ferrous Sulfate (Ferrous Sulfate 324 Mg Tablet.Dr) 324 mg PO DAILY [facility] Last Admin: 05/05/24 08:35 Dose: 324 mg Folic Acid (Folic Acid 1 Mg Tablet) 1 mg PO DAILY [facility] Last Admin: 05/05/24 08:35 Dose: 1 mg Furosemide (Furosemide 40 Mg Tablet) 80 mg PO BID [facility]; Protocol Last Admin: 05/05/24 08:35 Dose: 80 mg Gabapentin (Gabapentin 100 Mg Capsule) 200 mg PO DAILY [facility] Last Admin: 05/05/24 08:35 Dose: 200 mg Gabapentin (Gabapentin 300 Mg Capsule) 300 mg PO MOWEFR@1800 [facility] Glucose (Glucose Gel 15 Gm Gel..Gram.) 15 gm PO Q15M PRN; Protocol PRN Reason: per Hypoglycemia Standing Ord. Vancomycin HCl 500 mg/ Sodium (Chloride) 110 mls @ 110 mls/hr IV ONCE ONE Stop: 05/04/24 13:44 Piperacillin Sod/Tazobactam (Sod 2.25 gm/ Sodium Chloride) 50 mls @ 100 mls/hr IV Q12H [facility] Last Infusion: 05/05/24 01:39 Dose: Infused Insulin Glargine (Insulin Glargine,Hum.Rec.Anlog 100 Unit/Ml 10 Ml Vial) 21 unit SUBCUT BEDTIME [facility] Last Admin: 05/04/24 20:38 Dose: 21 unit Insulin Human Lispro (Insulin Lispro 100 Unit/Ml 3 Ml Vial) 0 unit SUBCUT QIDACHS [facility]; Protocol Last Admin: 05/05/24 07:35 Dose: Not Given Levetiracetam (Levetiracetam 500 Mg Tablet) 500 mg PO MOWEFR@1800 [facility] Lorazepam (Lorazepam 0.5 Mg Tablet) 0.5 mg PO DAILY PRN PRN Reason: anxiety Magnesium Hydroxide (Milk Of Magnesia 30 Ml Oral.Susp) 30 ml PO DAILY PRN PRN Reason: Constipation Melatonin (Melatonin 3 Mg Tablet) 6 mg PO BEDTIME PRN PRN Reason: Insomnia Last Admin: 05/04/24 20:38 Dose: 6 mg Omeprazole (Omeprazole 40 Mg Capsule.Dr) 40 mg PO BID@0630,1630 [facility] Last Admin: 05/05/24 06:11 Dose: 40 mg Oxycodone HCl (Oxycodone Hcl Immed Release 5 Mg Tablet) 5 mg PO Q4H PRN PRN Reason: Pain, Moderate(Pain Scale 4-6) Pharmacy Consult (Consult Rx Vancomycin Dosing) 1 each MISCELLANE DAILY PRN PRN Reason: Consult order Phenytoin Sodium (Phenytoin Sodium Extended 100 Mg Capsule) 100 mg PO TID [facility] Last Admin: 05/05/24 08:35 Dose: 100 mg Sertraline HCl (Sertraline Hcl 100 Mg Tablet) 100 mg PO DAILY [facility] Last Admin: 05/05/24 08:36 Dose: 100 mg Sodium Chloride (0.9 % Sodium Chloride Flush 3 Ml Syringe) 3 ml IVFLUSH QSHIFT [facility] Last Admin: 05/05/24 08:36 Dose: 3 ml Trazodone HCl (Trazodone Hcl 100 Mg Tablet) 100 mg PO BEDTIME PRN PRN Reason: Sleep Last Admin: 05/04/24 20:38 Dose: 100 mg Valproic Acid (Valproic Acid 250 Mg Capsule) 1,000 mg PO BID [facility] Last Admin: 05/05/24 08:35 Dose: 1,000 mg Vitamin D (Cholecalciferol (Vitamin D3) 25 Mcg Tablet) 50 mcg PO DAILY [facility] Last Admin: 05/05/24 08:35 Dose: 50 mcg Home Medications ?Medication ?Instructions ?Recorded ?Confirmed ?Last Taken ?Type blood sugar diagnostic (FreeStyle 03/28/20 09/09/22 Unknown History Lite Strips) blood-glucose meter (FreeStyle 03/28/20 09/09/22 Unknown History [place] Lite kit) lancets 28 gauge (FreeStyle 03/28/20 09/09/22 Unknown History Lancets) omeprazole 40 mg capsule,delayed 40 mg PO BID@0630,1630 10/02/21 05/04/24 03/21/24 History release blood pressure test kit-large #1 ea 10/12/21 09/09/22 Unknown History atorvastatin 80 mg tablet 80 mg PO DAILY 12/20/21 05/04/24 03/21/24 History nebulizers 01/20/22 09/09/22 Unknown History amlodipine 10 mg tablet 10 mg PO DAILY 05/29/22 05/04/24 03/21/24 History aspirin 81 mg tablet,delayed 81 mg PO DAILY 05/29/22 05/04/24 03/21/24 History release lancets 33 gauge (TRUEplus Lancets) #100 ea 06/07/22 09/09/22 Unknown History trazodone 50 mg tablet 100 mg PO BEDTIME PRN Sleep 06/07/22 05/04/24 10/26/23 History cholecalciferol (vitamin D3) 50 50 mcg PO DAILY 11/24/22 05/04/24 03/21/24 History mcg (2,000 unit) tablet ferrous gluconate 324 mg (38 mg 324 mg PO DAILY 11/24/22 05/04/24 03/21/24 History iron) tablet acetaminophen 650 mg 650 mg PO Q8H PRN mild pain 03/22/24 05/04/24 Unknown History tablet,extended release diclofenac sodium 1 % topical gel 2 g topical BEDTIME PRN Pain 03/22/24 05/04/24 03/21/24 History losartan 100 mg tablet 100 mg PO BID 03/22/24 05/04/24 03/21/24 History valproic acid 250 mg capsule 1,000 mg PO BID 03/22/24 05/04/24 03/21/24 History furosemide 40 mg tablet 80 mg PO BID 05/04/24 05/04/24 Unknown History gabapentin 100 mg capsule 200 mg PO DAILY 05/04/24 05/04/24 Unknown History gabapentin 300 mg capsule 300 mg PO MOWEFR@1800 05/04/24 05/04/24 Unknown History insulin glargine 100 unit/mL (3 30 unit subcut BEDTIME 05/04/24 05/04/24 Unknown History mL) subcutaneous pen (Basaglar David U-100 Insulin) levetiracetam 500 mg tablet 500 mg PO MOWEFR@1800 05/04/24 05/04/24 Unknown History lorazepam 0.5 mg tablet 0.5 mg PO DAILY PRN anxiety 05/04/24 05/04/24 Unknown History sertraline 50 mg tablet 100 mg PO DAILY 05/04/24 05/04/24 Unknown History Physical Exam Vital Signs: Vital Signs: Last Vital Signs Temp 98.2 F 05/05/24 07:28 Pulse 92 05/05/24 07:28 Resp 20 05/05/24 07:28 BP 114/64 05/05/24 08:35 Pulse Ox 94 05/05/24 07:28 O2 Del Method Room Air 05/05/24 07:28 BMI result Body Mass Index 41.3 Neuro: Other: She is little bit drowsy but able to communicate answer questions and follow commands. Face is symmetrical. Visual lambert are full. There is no focal arm or leg weakness. Plantars are flexor. Deep tendon reflexes are absent in chronic sign of neuropathy are noted in feet. Results Labs 05/04/24 16:30 05/05/24 08:02 Labs: Short CBC 05/04/24 Range/Units 16:30 Hgb 7.8 L D (12.0-16.0) g/dl Hct 23.5 L D (37.0-47.0) % BMP 05/05/24 08:02 Sodium 139 Potassium 4.7 Chloride 104 Carbon Dioxide 19 L BUN 72 H Creatinine 5.87 H* Calcium 8.0 L Urine 05/04/24 Range/Units 15:12 Urine Color Yellow Urine Appearance Turbid Urine pH 6.0 (5.0-9.0) Ur Specific [place] 1.025 (1.005-1.025) Urine Protein >=1000 (4+) H (Neg-Trace) mg/dL Urine Glucose (UA) Negative (Negative) mg/dL Head CT revealed a tiny right para fell sign hyperdensity suggestive of bleed. There was also evidence of left frontal encephalomalacia with evidence of craniotomy. Microbiology Microbiology Results: Microbiology 05/04/24 08:26 Blood - Venous Blood Culture - Preliminary No growth after 24 hours. 05/04/24 08:25 Blood - Venous Blood Culture - Preliminary No growth after 24 hours. 05/04/24 15:12 Urine clean catch - Clean Catch Midstream Urine Culture - Final Assessment and Plan (1) Acute subdural hematoma: Status: Acute 68 years old woman with underlying end-stage renal disease severe anemia, left frontal craniotomy and encephalomalacia of unknown cause and probably related seizure disorder, and multifactorial gait disorder who had a mechanical fall at home resulting in tiny right parafalcine subdural hemorrhage. Bleed was stable and did not require any intervention or follow-up imaging at this time. Motor attention is needed on her metabolic issues and common sense interventions to avoid falling. I also recommend checking her Depakote level as she is on or relatively high dose. High doses of these medicines can contribute to unsteadiness and falling. Procedures Date of Service Date of Service: 05/05/24
[2024-05-05 10:58] LABS: Hematocrit 22.4 % (37.0-47.0); Hemoglobin 7.6 g/dl (12.0-16.0); Mean Corpuscular HGB Conc 33.9 g/dl (31.0-35.0); Mean Corpuscular Hemoglobin 29.2 pg (27.0-33.0); Mean Corpuscular Volume 86.2 fL (80.0-98.0); Mean Platelet Volume 11.5 fL (9.4-12.3); Platelet Count 167 X10*3/uL (160-400); Red Cell Distribution Width 25.4 % (11.0-16.0); White Blood Count 14.7 X10*3/uL (4.8-10.8)
[2024-05-05 11:12] LABS: Glucose, Whole Blood 104 mg/dL (60-115)
--- NOTE | 2024-05-05 11:46 | P.CONNP_ITS ---
History of Present Illness Reason for Consult Consult date: 05/05/24 Reason for consult: ESRD Chief Complaint Chief complaint: Subdural Hematoma Cellulitis History of Present Illness Narrative: [facility] consulted for HD Tx in setting of adm for falling epsidoes and fgen weak Rec reviewed as PT is a poor hsitorian CT showed SDH which is being managed conservatively Multiple wounds noted PT is not safe at home with falling episodes PMH as noted below Review of Systems Review of Systems Generalized lethargy weakness and unsteadiness Yes all other systems are reviewed and are negative and Unobtainable due to mental condition [facility] Past Medical History Medical History ESRD (end stage renal disease) Generalized seizure Acute kidney injury CKD (chronic kidney disease) stage 3, GFR 30-59 ml/min CHF (congestive heart failure) Anemia Brain tumor (benign) Lower extremity edema Pneumonia Asthma Pulmonary nodule HLD (hyperlipidemia) Seizure Acute hypoxemic respiratory failure due to COVID-19 COVID-19 Kidney stone Depression Gastritis Diabetes Family History Family History Father CAD (coronary artery disease) Brother Lung cancer Sister Kidney stone Surgical History Surgical History 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) H/O lithotripsy H/O ureteroscopy H/O cystoscopy S/P ureteral stent placement History of cholecystectomy H/O hernia repair Social History Social History Household Members: Children Housing: House Do you presently have visiting nurse or other home services: Yes (daughter is heel room supervisor, vna 2x week.) Alcohol intake: former Comment: pt sleeping at this time Patient Tobacco Use Status: Never used Tobacco e-Cigarette/Vaping Use: Never Used Advance Directives Date on File: 12/20/21 service: No Current occupational status: unemployed Meds Allergies Allergy/AdvReac Type Severity Reaction Status Date / Time Egg Derived Allergy Unknown Verified 05/04/24 01:05 Active Medications: Current Medications Acetaminophen (Acetaminophen 325 Mg Tablet) 650 mg PO Q6H PRN PRN Reason: Pain, Mild 1-3,fever,headache Atorvastatin Calcium (Atorvastatin Calcium 80 Mg Tablet) 80 mg PO DAILY KATHERINE Last Admin: 05/05/24 08:35 Dose: 80 mg Calcium Carbonate (Calcium Carbonate 750 Mg Tab.Chew) 750 mg PO Q4H PRN PRN Reason: Heartburn Dextrose (Dextrose 50 % 25 Gm/50 Ml Syringe) 25 gm IVPUSH Q15M PRN; Protocol PRN Reason: per Hypoglycemia Standing Ord. Ferrous Sulfate (Ferrous Sulfate 324 Mg Tablet.Dr) 324 mg PO DAILY [facility] Last Admin: 05/05/24 08:35 Dose: 324 mg Folic Acid (Folic Acid 1 Mg Tablet) 1 mg PO DAILY [facility] Last Admin: 05/05/24 08:35 Dose: 1 mg Furosemide (Furosemide 40 Mg Tablet) 80 mg PO BID [facility]; Protocol Last Admin: 05/05/24 08:35 Dose: 80 mg Gabapentin (Gabapentin 100 Mg Capsule) 200 mg PO DAILY [facility] Last Admin: 05/05/24 08:35 Dose: 200 mg Gabapentin (Gabapentin 300 Mg Capsule) 300 mg PO MOWEFR@1800 KATHERINE Glucose (Glucose Gel 15 Gm Gel..Gram.) 15 gm PO Q15M PRN; Protocol PRN Reason: per Hypoglycemia Standing Ord. Vancomycin HCl 500 mg/ Sodium (Chloride) 110 mls @ 110 mls/hr IV ONCE ONE Stop: 05/04/24 13:44 Piperacillin Sod/Tazobactam (Sod 2.25 gm/ Sodium Chloride) 50 mls @ 100 mls/hr IV Q12H [facility] Last Infusion: 05/05/24 01:39 Dose: Infused Insulin Glargine (Insulin Glargine,Hum.Rec.Anlog 100 Unit/Ml 10 Ml Vial) 21 unit SUBCUT BEDTIME [facility] Last Admin: 05/04/24 20:38 Dose: 21 unit Insulin Human Lispro (Insulin Lispro 100 Unit/Ml 3 Ml Vial) 0 unit SUBCUT QIDACHS [facility]; Protocol Last Admin: 05/05/24 11:04 Dose: Not Given Levetiracetam (Levetiracetam 500 Mg Tablet) 500 mg PO MOWEFR@1800 KATHERINE Lorazepam (Lorazepam 0.5 Mg Tablet) 0.5 mg PO DAILY PRN PRN Reason: anxiety Magnesium Hydroxide (Milk Of Magnesia 30 Ml Oral.Susp) 30 ml PO DAILY PRN PRN Reason: Constipation Melatonin (Melatonin 3 Mg Tablet) 6 mg PO BEDTIME PRN PRN Reason: Insomnia Last Admin: 05/04/24 20:38 Dose: 6 mg Omeprazole (Omeprazole 40 Mg Capsule.Dr) 40 mg PO BID@0630,1630 [facility] Last Admin: 05/05/24 06:11 Dose: 40 mg Oxycodone HCl (Oxycodone Hcl Immed Release 5 Mg Tablet) 5 mg PO Q4H PRN PRN Reason: Pain, Moderate(Pain Scale 4-6) Pharmacy Consult (Consult Rx Vancomycin Dosing) 1 each MISCELLANE DAILY PRN PRN Reason: Consult order Phenytoin Sodium (Phenytoin Sodium Extended 100 Mg Capsule) 100 mg PO TID [facility] Last Admin: 05/05/24 08:35 Dose: 100 mg Sertraline HCl (Sertraline Hcl 100 Mg Tablet) 100 mg PO DAILY [facility] Last Admin: 05/05/24 08:36 Dose: 100 mg Sodium Chloride (0.9 % Sodium Chloride Flush 3 Ml Syringe) 3 ml IVFLUSH QSHIFT [facility] Last Admin: 05/05/24 08:36 Dose: 3 ml Trazodone HCl (Trazodone Hcl 100 Mg Tablet) 100 mg PO BEDTIME PRN PRN Reason: Sleep Last Admin: 05/04/24 20:38 Dose: 100 mg Valproic Acid (Valproic Acid 250 Mg Capsule) 1,000 mg PO BID [facility] Last Admin: 05/05/24 08:35 Dose: 1,000 mg Vitamin D (Cholecalciferol (Vitamin D3) 25 Mcg Tablet) 50 mcg PO DAILY [facility] Last Admin: 05/05/24 08:35 Dose: 50 mcg Home Medications ?Medication ?Instructions ?Recorded ?Confirmed ?Last Taken ?Type blood sugar diagnostic (FreeStyle 03/28/20 09/09/22 Unknown History Lite Strips) blood-glucose meter (FreeStyle 03/28/20 09/09/22 Unknown History Ledbetter Lite kit) lancets 28 gauge (FreeStyle 03/28/20 09/09/22 Unknown History Lancets) omeprazole 40 mg capsule,delayed 40 mg PO BID@0630,1630 10/02/21 05/04/24 03/21/24 History release blood pressure test kit-large #1 ea 10/12/21 09/09/22 Unknown History atorvastatin 80 mg tablet 80 mg PO DAILY 12/20/21 05/04/24 03/21/24 History nebulizers 01/20/22 09/09/22 Unknown History amlodipine 10 mg tablet 10 mg PO DAILY 05/29/22 05/04/24 03/21/24 History aspirin 81 mg tablet,delayed 81 mg PO DAILY 05/29/22 05/04/24 03/21/24 History release lancets 33 gauge (TRUEplus Lancets) #100 ea 06/07/22 09/09/22 Unknown History trazodone 50 mg tablet 100 mg PO BEDTIME PRN Sleep 06/07/22 05/04/24 10/26/23 History cholecalciferol (vitamin D3) 50 50 mcg PO DAILY 11/24/22 05/04/24 03/21/24 History mcg (2,000 unit) tablet ferrous gluconate 324 mg (38 mg 324 mg PO DAILY 11/24/22 05/04/24 03/21/24 History iron) tablet acetaminophen 650 mg 650 mg PO Q8H PRN mild pain 03/22/24 05/04/24 Unknown History tablet,extended release diclofenac sodium 1 % topical gel 2 g topical BEDTIME PRN Pain 03/22/24 05/04/24 03/21/24 History losartan 100 mg tablet 100 mg PO BID 03/22/24 05/04/24 03/21/24 History valproic acid 250 mg capsule 1,000 mg PO BID 03/22/24 05/04/24 03/21/24 History furosemide 40 mg tablet 80 mg PO BID 05/04/24 05/04/24 Unknown History gabapentin 100 mg capsule 200 mg PO DAILY 05/04/24 05/04/24 Unknown History gabapentin 300 mg capsule 300 mg PO MOWEFR@1800 05/04/24 05/04/24 Unknown History insulin glargine 100 unit/mL (3 30 unit subcut BEDTIME 05/04/24 05/04/24 Unknown History mL) subcutaneous pen (Omaraglar David U-100 Insulin) levetiracetam 500 mg tablet 500 mg PO MOWEFR@1800 05/04/24 05/04/24 Unknown History lorazepam 0.5 mg tablet 0.5 mg PO DAILY PRN anxiety 05/04/24 05/04/24 Unknown History sertraline 50 mg tablet 100 mg PO DAILY 05/04/24 05/04/24 Unknown History Physical Exam Vital Signs: Last Vital Signs Temp 99.4 F 05/05/24 11:30 Pulse 103 H 05/05/24 11:30 Resp 20 05/05/24 11:30 BP 122/88 05/05/24 11:30 Pulse Ox 98 05/05/24 11:30 O2 Del Method Room Air 05/05/24 11:30 BMI result Body Mass Index 41.3 Const General: no acute distress Nutritional Appearance: well nourished Resp Effort & Inspection: normal respiratory effort, no audible wheezes, no cough and no respiratory distress GI Inspection: Yes normal to inspection Neuro Other: She is little bit drowsy but able to communicate answer questions and follow commands. Face is symmetrical. Visual lambert are full. There is no focal arm or leg weakness. Plantars are flexor. Deep tendon reflexes are absent in chronic sign of neuropathy are noted in feet. Extrem Other: Left foot: Status post amputation of left 5th toe. Incision is noted to be open with some surrounding callus formation. No purulence discharge was identified. Slight erythema is noted in the surrounding skin. Results Lab Results 05/05/24 10:37 05/05/24 08:02 Lab results: Chemistry 05/04/24 05/05/24 01:41 08:02 Sodium 140 139 Potassium 4.1 4.7 Carbon Dioxide 23 19 L BUN 69 H 72 H Creatinine 5.48 H* 5.87 H* Calcium 7.9 L 8.0 L Hematology 05/04/24 05/04/24 05/05/24 01:41 16:30 10:37 WBC 15.5 H 14.7 H Hgb 6.0 L* D 7.8 L D 7.6 L Plt Count 101 L D 167 D Urinalysis 05/04/24 15:12 Urine Color Yellow Urine Appearance Turbid Urine pH 6.0 Ur Specific [place] 1.025 Urine Protein >=1000 (4+) H Urine Glucose (UA) Negative Urine Ketones Trace Urine Blood Small (1+) H Urine Nitrite Negative Ur Leukocyte Esterase Large (3+) H Urine RBC 6-10 H Urine WBC >50 H Ur Squamous Epith Cells >20 Hyaline Casts 0-2 Assessment and Plan (1) Acute subdural hematoma: Status: Acute 68 years old woman with underlying end-stage renal disease severe anemia, left frontal craniotomy and encephalomalacia of unknown cause and probably related seizure disorder, and multifactorial gait disorder who had a mechanical fall at home resulting in tiny right parafalcine subdural hemorrhage. Bleed was stable and did not require any intervention or follow-up imaging at this time. Motor attention is needed on her metabolic issues and common sense interventions to avoid falling. Plan 1. ESRD: usu MWF at HDU 2. 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 Wounds 5. Unsteady gait and ques safety with going home REC: HD mwf; epo/fe; abx as noted; d/c planning--ques go to rehab instead of hoemat time of d/c--PT and stefanie to talk to team Will follow wtea Procedures Date of Service Date of Service: 05/05/24
--- NOTE | 2024-05-05 14:11 | P.PNIM_ITS ---
Subjective Subjective Date of Service: 05/05/24 Interval History: Subdural hematoma,Left foot cellulitis with sepsis, pneumonia Review of Systems seems Physical Exam 2 Vital Signs: Vital Signs: Last Vital Signs Temp 99.4 F 05/05/24 11:30 Pulse 103 H 05/05/24 11:30 Resp 20 05/05/24 11:30 BP 122/88 05/05/24 11:30 Pulse Ox 98 05/05/24 11:30 O2 Del Method Room Air 05/05/24 11:30 BMI result Body Mass Index 41.3 Appearance: Alert.? Oriented X3. cvs: rrr, [id number] . res: clear to auscultation ,no rhonchii or wheezing abd: no rebound or guarding ,nt, bs present. ext Left right foot s/p fifth digit amputation. Area with warmth and erythema. neuro: axo3 , nonfocal. Objective Data Active Medications Acetaminophen (Acetaminophen 325 Mg Tablet) 650 mg PO Q6H PRN PRN Reason: Pain, Mild 1-3,fever,headache Atorvastatin Calcium (Atorvastatin Calcium 80 Mg Tablet) 80 mg PO DAILY COUNTS INCLUDE 234 BEDS AT THE [facility] Last Admin: 05/05/24 08:35 Dose: 80 mg Documented By: DEEPALI Calcium Carbonate (Calcium Carbonate 750 Mg Tab.Chew) 750 mg PO Q4H PRN PRN Reason: Heartburn Dextrose (Dextrose 50 % 25 Gm/50 Ml Syringe) 25 gm IVPUSH Q15M PRN; Protocol PRN Reason: per Hypoglycemia Standing Ord. Ferrous Sulfate (Ferrous Sulfate 324 Mg Tablet.) 324 mg PO DAILY COUNTS INCLUDE 234 BEDS AT THE [facility] Last Admin: 05/05/24 08:35 Dose: 324 mg Documented By: DEEPALI Folic Acid (Folic Acid 1 Mg Tablet) 1 mg PO DAILY COUNTS INCLUDE 234 BEDS AT THE [facility] Last Admin: 05/05/24 08:35 Dose: 1 mg Documented By: DEEPALI Furosemide (Furosemide 40 Mg Tablet) 80 mg PO BID COUNTS INCLUDE 234 BEDS AT THE [facility]; Protocol Last Admin: 05/05/24 08:35 Dose: 80 mg Documented By: DEEPAIL Gabapentin (Gabapentin 100 Mg Capsule) 200 mg PO DAILY COUNTS INCLUDE 234 BEDS AT THE [facility] Last Admin: 05/05/24 08:35 Dose: 200 mg Documented By: DEEPALI Gabapentin (Gabapentin 300 Mg Capsule) 300 mg PO MOWEFR@1800 COUNTS INCLUDE 234 BEDS AT THE [facility] Glucose (Glucose Gel 15 Gm Gel..Gram.) 15 gm PO Q15M PRN; Protocol PRN Reason: per Hypoglycemia Standing Ord. Vancomycin HCl 500 mg/ Sodium (Chloride) 110 mls @ 110 mls/hr IV ONCE ONE Stop: 05/04/24 13:44 Piperacillin Sod/Tazobactam (Sod 2.25 gm/ Sodium Chloride) 50 mls @ 100 mls/hr IV Q12H COUNTS INCLUDE 234 BEDS AT THE [facility] Last Infusion: 05/05/24 01:39 Dose: Infused Documented By: DESTINEY Insulin Glargine (Insulin Glargine,Hum.Rec.Anlog 100 Unit/Ml 10 Ml Vial) 21 unit SUBCUT BEDTIME COUNTS INCLUDE 234 BEDS AT THE [facility] Last Admin: 05/04/24 20:38 Dose: 21 unit Documented By: FAHAD Insulin Human Lispro (Insulin Lispro 100 Unit/Ml 3 Ml Vial) 0 unit SUBCUT QIDACHS COUNTS INCLUDE 234 BEDS AT THE [facility]; Protocol Last Admin: 05/05/24 11:04 Dose: Not Given Documented By: DEEPALI Non-Admin Reason: No Insulin Coverage Levetiracetam (Levetiracetam 500 Mg Tablet) 500 mg PO MOWEFR@1800 COUNTS INCLUDE 234 BEDS AT THE [facility] Lorazepam (Lorazepam 0.5 Mg Tablet) 0.5 mg PO DAILY PRN PRN Reason: anxiety Magnesium Hydroxide (Milk Of Magnesia 30 Ml Oral.Susp) 30 ml PO DAILY PRN PRN Reason: Constipation Melatonin (Melatonin 3 Mg Tablet) 6 mg PO BEDTIME PRN PRN Reason: Insomnia Last Admin: 05/04/24 20:38 Dose: 6 mg Documented By: FAHAD Omeprazole (Omeprazole 40 Mg Capsule.) 40 mg PO BID@0630,1630 COUNTS INCLUDE 234 BEDS AT THE [facility] Last Admin: 05/05/24 06:11 Dose: 40 mg Documented By: DESTINEY Oxycodone HCl (Oxycodone Hcl Immed Release 5 Mg Tablet) 5 mg PO Q4H PRN PRN Reason: Pain, Moderate(Pain Scale 4-6) Pharmacy Consult (Consult Rx Vancomycin Dosing) 1 each MISCELLANE DAILY PRN PRN Reason: Consult order Phenytoin Sodium (Phenytoin Sodium Extended 100 Mg Capsule) 100 mg PO TID COUNTS INCLUDE 234 BEDS AT THE [facility] Last Admin: 05/05/24 08:35 Dose: 100 mg Documented By: DEEPALI Sertraline HCl (Sertraline Hcl 100 Mg Tablet) 100 mg PO DAILY COUNTS INCLUDE 234 BEDS AT THE [facility] Last Admin: 05/05/24 08:36 Dose: 100 mg Documented By: DEEPALI Sodium Chloride (0.9 % Sodium Chloride Flush 3 Ml Syringe) 3 ml IVFLUSH QSHIFT COUNTS INCLUDE 234 BEDS AT THE [facility] Last Admin: 05/05/24 08:36 Dose: 3 ml Documented By: DEEPALI Trazodone HCl (Trazodone Hcl 100 Mg Tablet) 100 mg PO BEDTIME PRN PRN Reason: Sleep Last Admin: 05/04/24 20:38 Dose: 100 mg Documented By: JANNYTOATTILA Valproic Acid (Valproic Acid 250 Mg Capsule) 1,000 mg PO BID COUNTS INCLUDE 234 BEDS AT THE [facility] Last Admin: 05/05/24 08:35 Dose: 1,000 mg Documented By: DEEPALI Vitamin D (Cholecalciferol (Vitamin D3) 25 Mcg Tablet) 50 mcg PO DAILY COUNTS INCLUDE 234 BEDS AT THE [facility] Last Admin: 05/05/24 08:35 Dose: 50 mcg Documented By: DEEPALI Labs 05/05/24 10:37 05/05/24 08:02 Labs: Laboratory Results - last 24 hr 05/04/24 05/04/24 05/04/24 03:30 15:12 20:06 MCV MCH MCHC RDW Plt Count MPV Absolute Nucleated RBC Nucleated RBC % (auto) Anion Gap Estim Creat Clear Calc Estimated GFR POC Glucose 158 H Random Glucose Estimat Average Glucose Hemoglobin A1c % Calcium Urine Color Yellow Urine Appearance Turbid Urine pH 6.0 Ur Specific [place] 1.025 Urine Protein >=1000 (4+) H Urine Glucose (UA) Negative Urine Ketones Trace Urine Blood Small (1+) H Urine Nitrite Negative Ur Leukocyte Esterase Large (3+) H Urine RBC 6-10 H Urine WBC >50 H Ur Squamous Epith Cells >20 Urine Bacteria 4+ Hyaline Casts 0-2 Urine Yeast Present Crossmatch See Detail 05/05/24 05/05/24 05/05/24 00:06 01:41 07:02 MCV MCH MCHC RDW Plt Count MPV Absolute Nucleated RBC Nucleated RBC % (auto) Anion Gap Estim Creat Clear Calc Estimated GFR POC Glucose 79 55 L* Random Glucose Estimat Average Glucose 134 Hemoglobin A1c % 6.3 H Calcium Urine Color Urine Appearance Urine pH Ur Specific [place] Urine Protein Urine Glucose (UA) Urine Ketones Urine Blood Urine Nitrite Ur Leukocyte Esterase Urine RBC Urine WBC Ur Squamous Epith Cells Urine Bacteria Hyaline Casts Urine Yeast Crossmatch 05/05/24 05/05/24 05/05/24 07:30 08:02 10:37 MCV 86.2 MCH 29.2 MCHC 33.9 RDW 25.4 H Plt Count 167 D MPV 11.5 Absolute Nucleated RBC 0.000 Nucleated RBC % (auto) 0.0 Anion Gap 21 H Estim Creat Clear Calc 10.4 Estimated GFR 7 POC Glucose 70 Random Glucose 72 Estimat Average Glucose Hemoglobin A1c % Calcium 8.0 L Urine Color Urine Appearance Urine pH Ur Specific [place] Urine Protein Urine Glucose (UA) Urine Ketones Urine Blood Urine Nitrite Ur Leukocyte Esterase Urine RBC Urine WBC Ur Squamous Epith Cells Urine Bacteria Hyaline Casts Urine Yeast Crossmatch 05/05/24 11:03 MCV MCH MCHC RDW Plt Count MPV Absolute Nucleated RBC Nucleated RBC % (auto) Anion Gap Estim Creat Clear Calc Estimated GFR POC Glucose 104 Random Glucose Estimat Average Glucose Hemoglobin A1c % Calcium Urine Color Urine Appearance Urine pH Ur Specific [place] Urine Protein Urine Glucose (UA) Urine Ketones Urine Blood Urine Nitrite Ur Leukocyte Esterase Urine RBC Urine WBC Ur Squamous Epith Cells Urine Bacteria Hyaline Casts Urine Yeast Crossmatch Microbiology Microbiology Results: Microbiology 05/04/24 08:26 Blood Culture - Preliminary Blood - Venous No growth after 24 hours. 05/04/24 08:25 Blood Culture - Preliminary Blood - Venous No growth after 24 hours. 05/04/24 15:12 Urine Culture - Final Urine clean catch - Clean Catch Midstream Assessment and Plan (1) Cellulitis: Status: Acute (2) Acute subdural hematoma: Status: Acute Assessment and Plan: 68-year-old female with a PMH significant for?ESRD on HD M/W/F, HFpEF, seizure disorder, insulin-dependent type 2 diabetes, hx of osteomyelitis s/p left 5th toe amp on 03/28/2024, anemia of chronic disease requiring frequent transfusions, asthma, HTN, and GERD who presents to the ED after fall at home earlier this morning as pt was ambulating to the bathroom. Pt will be admitted to the hospital for treatment further evaluation of multiple issues, including subdural hematoma s/p fall at home, and generalized weakness with fall at home in the setting of acute on chronic anemia, cellulitis with sepsis secondary to chronic diabetic foot ulcer, at community-acquired pneumonia. Subdural hematoma:CT small right parafalcine subdural hematoma up to 4 mm in thickness; repeat CT 6 hours later stable S/p fall at home with head strike on table; no LOC; neuro exam intact; pt AO x3; GCS 15 contacted Neurosurgery at [facility] who said no intervention necessary plan:Hold aspirin Check hip x-ray-Faint lucency along the right inferior pubic ramus seen only on one view and possibly artifactual.added pelvic ct. PT consult-Monitor mentation seen by neuro-subdural hematoma, stable, no acute intervention. Left foot cellulitis with sepsis S/P fifth digit amputation d/t diabetic foot infection osteomyelitis on 03/28/2024 Meets sepsis - tachycardia, leukocytosis improving, acute lactic acidosis ( sec to dehydration) improved.. added esr/crp continue vancomycin and Zosyn, started 05/04/2024 General surgery consult for wound care recommendations and possible debridement Follow cultures multiple areas of wounds in various stages of healing Most prominent right heel and right flank General surgery consult as above for wound care recommendations and possible debridement Acute on chronic anemia of chronic disease H&H 6.0/17.5 at time presentation, reduced from 9.9/29.8 on 04/09/2024 Pt not on thinners, denies hematochezia or melena Pt requiring multiple transfusions in the past Received 2 units PRBCs in the ED Follow H&H, transfuse as necessary Question of community-acquired pneumonia ua also has pyuria /bacteruria CXR showed probable right lower lobe pneumonia cotninue antibiotics as above, not hypoxic, not requiring supplemental O2 ESRD on HD M/W/F Last dialyzed yesterday Nephrology consult, follows with RTANE Follow BMP Insulin-dependent type 2 diabetes Sliding-scale insulin, Lantus Diabetic diet Seizure disorder Continue levetiracetam, valproate, and phenytoin Will check Depakote and phenytoin HTN Continue and losartan Mood disorder Continue sertraline, lorazepam Full Code DVT Prophylaxis: Pneumatic compression ongoing need for hospitalization of at least two nights for treatment and further evaluation of multiple issues, including subdural hematoma s/p fall at home, and generalized weakness with fall at home in the setting of acute on chronic anemia, cellulitis with sepsis secondary to chronic diabetic foot ulcer, at community-acquired pneumonia. Quality Stroke Does the patient have a stroke diagnosis?: No VTE Prior VTE?: No VTE Risk Level:: Medical - moderate - high VTE Device Contraindication: N/A - Device Ordered VTE Drug Contraindication: Treatment Not Indicated
[2024-05-05 15:07] LABS: C Reactive Protein 41.21 mg/dL (< or = 0.50)
--- NOTE | 2024-05-05 15:10 | MHC.CM.PN ---
CM SPOKE TO PTS DAUGHTER/HCP/CAREGIVER, SHILABRIDGET [phone] WITH THE ASSISTANCE OF [email or web address] RESEARCH/PROGRAM DIRECTOR GARRICK (#[id number]) PT LIVES WITH HER DAUGHTER, WHO IS HER 24/7 CAREGIVER AND HAS HD AT [facility] PT USES A WALKER AT [facility], BUT PER DAUGHTER WALKS VERY LITTLE HCP ON FILE PCP: YURY ESQUEDA IMM DELIVERED DCP: DAUGHTER HOPES PT WILL GO TO [facility], [facility]ERRED SHE WILL NEED BLS TRANSPORT TO SNF
[2024-05-05 16:50] LABS: Glucose, Whole Blood 176 mg/dL (60-115)
[2024-05-05 17:19] LABS: Erythrocyte Sedimentation Rate > 140 MM/HR (0-20)
[2024-05-05 21:21] LABS: Glucose, Whole Blood 177 mg/dL (60-115)
[2024-05-05] MEDS: oxyCODONE HCl Immed Release 5 MG TABLET PO (22:44)
[2024-05-05] MEDS: Acetaminophen 325 MG TABLET 650 MG PO (23:47)
[2024-05-06] VITALS (10 sets, daily range): BP systolic 110–178; BP diastolic 56–84; PULSE 84–107; RESP 16–20; TEMP 36.3–37.1; O2SAT 94–100
[2024-05-06] MEDS: Piperacillin Sodium/Tazobactam 2.25 GM in 0.9 % Sodium Chloride 50 ML IV ×2 (01:18→17:33)
[2024-05-06] MEDS: oxyCODONE HCl Immed Release 5 MG TABLET PO ×4 (03:50→17:44)
[2024-05-06] MEDS: Omeprazole 40 MG CAPSULE.DR PO ×2 (05:59→17:44)
[2024-05-06] MEDS: Acetaminophen 325 MG TABLET 650 MG PO (05:59)
[2024-05-06 07:18] LABS: Mean Corpuscular HGB Conc 32.9 g/dl (31.0-35.0); Mean Corpuscular Hemoglobin 28.5 pg (27.0-33.0); Mean Corpuscular Volume 86.8 fL (80.0-98.0); PLT CLUMP 1; Red Blood Count 2.42 X10*6/uL (4.20-5.50); Red Cell Distribution Width 25.2 % (11.0-16.0)
[2024-05-06 07:19] LABS: White Blood Count 15.3 X10*3/uL (4.8-10.8)
[2024-05-06 07:21] LABS: Valproate 25.3 mcg/mL (50.0-100.0)
[2024-05-06 07:28] LABS: Anion Gap 21 (12-20); Blood Urea Nitrogen 84 mg/dL (9-16); Carbon Dioxide 19 mmol/L (22-29); Chloride 103 mmol/L (96-108); Creatinine Clr Calc Pharmacy 9.1; Estimated Glomerular Filt Rate 6; Glucose Random 151 mg/dL (60-115); Potassium 4.9 mmol/L (3.3-5.1); Sodium 138 mmol/L (135-145)
[2024-05-06 07:32] LABS: Hemoglobin 6.9 g/dl (12.0-16.0)
[2024-05-06 07:39] LABS: Glucose, Whole Blood 141 mg/dL (60-115)
[2024-05-06 07:44] LABS: Phenytoin Dilantin < 1.8 ug/mL (10.0-20.0)
[2024-05-06 08:02] LABS: Iron 31 mcg/dL (30-160); Percent Iron Saturation 21 % (15-50); Total Iron Binding Capacity 148 mcg/dL (228-428); Unsaturated Iron Binding 117 ug/dL
--- NOTE | 2024-05-06 08:48 | MHC.CM.PN ---
EMR REVIEWED, PT W/SUBDURAL HEMATOMA S/P FALL AT HOME, PT H&H DROPPED TO 6.9/21.0, PLAN FOR HD TODAY, P.T. EVAL PENDING, PT'S DTR WOULD LIKE STR AT [facility] FOLLOWING W/BED OFFER, CM WILL CONT TO FOLLOW DC NEEDS.
[2024-05-06 09:01] LABS: Hematocrit 22.9 % (37.0-47.0); Hemoglobin 7.5 g/dl (12.0-16.0)
[2024-05-06 09:11] LABS: Ferritin 1887 ng/mL (10-250)
[2024-05-06] MEDS: Valproic Acid 250 MG CAPSULE 1000 MG PO ×2 (09:20→21:22)
[2024-05-06] MEDS: LORazepam 0.5 MG TABLET PO (09:21)
[2024-05-06] MEDS: Ferrous Sulfate 324 MG TABLET.DR PO (09:21)
[2024-05-06] MEDS: Atorvastatin Calcium 80 MG TABLET PO (09:21)
[2024-05-06] MEDS: Phenytoin Sodium Extended 100 MG CAPSULE PO ×3 (09:21→21:22)
[2024-05-06] MEDS: Sertraline HCL 100 MG TABLET PO (09:21)
[2024-05-06] MEDS: Cholecalciferol (Vitamin D3) 25 MCG TABLET 50 MCG PO (09:21)
[2024-05-06] MEDS: Furosemide 40 MG TABLET 80 MG PO ×2 (09:22→21:22)
[2024-05-06] MEDS: 0.9 % Sodium Chloride Flush 3 ML SYRINGE IVFLUSH ×2 (09:22→17:45)
[2024-05-06] MEDS: Gabapentin 100 MG CAPSULE 200 MG PO (09:22)
[2024-05-06] MEDS: Folic Acid 1 MG TABLET PO (09:22)
[2024-05-06 09:50] LABS: Folate 11.8 ng/mL (> or = 4.0); Vitamin B12 695 pg/mL (200-900)
[2024-05-06 12:02] LABS: Glucose, Whole Blood 176 mg/dL (60-115)
--- NOTE | 2024-05-06 12:15 | HO.PM.IMPN ---
Subjective Subjective Date of Service: 05/06/24 Interval History: Subdural hematoma,Left foot cellulitis with sepsis, pneumonia Review of Systems seems comfortable asking for sleep pill -she is alreday on melatonin and trazodone. no fevers Physical Exam Vital Signs: Vital Signs: Last Vital Signs Temp 98.6 F 05/06/24 12:00 Pulse 94 05/06/24 12:00 Resp 19 05/06/24 03:59 BP 116/62 05/06/24 12:00 Pulse Ox 96 05/06/24 12:00 O2 Del Method Room Air 05/06/24 12:00 BMI result Body Mass Index 41.3 Appearance: Alert.? Oriented X3. cvs: rrr, [id number] . res: clear to auscultation ,no rhonchii or wheezing abd: no rebound or guarding ,nt, bs present. ext Left right foot s/p fifth digit amputation. Area with warmth and erythema. neuro: axo3 , nonfocal Objective Data Active Medications Acetaminophen (Acetaminophen 325 Mg Tablet) 650 mg PO Q6H PRN PRN Reason: Pain, Mild 1-3,fever,headache Last Admin: 05/06/24 05:59 Dose: 650 mg Documented By: YAYA Atorvastatin Calcium (Atorvastatin Calcium 80 Mg Tablet) 80 mg PO DAILY [facility] Last Admin: 05/06/24 09:21 Dose: 80 mg Documented By: NIGHAT Calcium Carbonate (Calcium Carbonate 750 Mg Tab.Chew) 750 mg PO Q4H PRN PRN Reason: Heartburn Dextrose (Dextrose 50 % 25 Gm/50 Ml Syringe) 25 gm IVPUSH Q15M PRN; Protocol PRN Reason: per Hypoglycemia Standing Ord. Ferrous Sulfate (Ferrous Sulfate 324 Mg Tablet.) 324 mg PO DAILY [facility] Last Admin: 05/06/24 09:21 Dose: 324 mg Documented By: NIGHAT Folic Acid (Folic Acid 1 Mg Tablet) 1 mg PO DAILY [facility] Last Admin: 05/06/24 09:22 Dose: 1 mg Documented By: NIGHAT Furosemide (Furosemide 40 Mg Tablet) 80 mg PO BID [facility]; Protocol Last Admin: 05/06/24 09:22 Dose: 80 mg Documented By: NIGHAT Gabapentin (Gabapentin 100 Mg Capsule) 200 mg PO DAILY [facility] Last Admin: 05/06/24 09:22 Dose: 200 mg Documented By: NIGHAT Gabapentin (Gabapentin 300 Mg Capsule) 300 mg PO MOWEFR@1800 KATHERINE Glucose (Glucose Gel 15 Gm Gel..Gram.) 15 gm PO Q15M PRN; Protocol PRN Reason: per Hypoglycemia Standing Ord. Vancomycin HCl 500 mg/ Sodium (Chloride) 110 mls @ 110 mls/hr IV ONCE ONE Stop: 05/04/24 13:44 Piperacillin Sod/Tazobactam (Sod 2.25 gm/ Sodium Chloride) 50 mls @ 100 mls/hr IV Q12H [facility] Last Infusion: 05/06/24 01:58 Dose: Infused Documented By: YAYA Insulin Glargine (Insulin Glargine,Hum.Rec.Anlog 100 Unit/Ml 10 Ml Vial) 21 unit SUBCUT BEDTIME [facility] Last Admin: 05/04/24 20:38 Dose: 21 unit Documented By: FAHAD Insulin Human Lispro (Insulin Lispro 100 Unit/Ml 3 Ml Vial) 0 unit SUBCUT QIDACHS [facility]; Protocol Last Admin: 05/06/24 12:11 Dose: Not Given Documented By: NIGHAT Non-Admin Reason: No Insulin Coverage Levetiracetam (Levetiracetam 500 Mg Tablet) 500 mg PO MOWEFR@1800 KATHERINE Lorazepam (Lorazepam 0.5 Mg Tablet) 0.5 mg PO DAILY PRN PRN Reason: anxiety Last Admin: 05/06/24 09:21 Dose: 0.5 mg Documented By: NIGHAT Magnesium Hydroxide (Milk Of Magnesia 30 Ml Oral.Susp) 30 ml PO DAILY PRN PRN Reason: Constipation Melatonin (Melatonin 3 Mg Tablet) 6 mg PO BEDTIME PRN PRN Reason: Insomnia Last Admin: 05/04/24 20:38 Dose: 6 mg Documented By: FAHAD Omeprazole (Omeprazole 40 Mg Capsule.) 40 mg PO BID@0630,1630 [facility] Last Admin: 05/06/24 05:59 Dose: 40 mg Documented By: YAYA Oxycodone HCl (Oxycodone Hcl Immed Release 5 Mg Tablet) 5 mg PO Q4H PRN PRN Reason: Pain, Moderate(Pain Scale 4-6) Last Admin: 05/06/24 09:22 Dose: 5 mg Documented By: NIGHAT Pharmacy Consult (Consult Rx Vancomycin Dosing) 1 each MISCELLANE DAILY PRN PRN Reason: Consult order Phenytoin Sodium (Phenytoin Sodium Extended 100 Mg Capsule) 100 mg PO TID [facility] Last Admin: 05/06/24 09:21 Dose: 100 mg Documented By: NIGHAT Sertraline HCl (Sertraline Hcl 100 Mg Tablet) 100 mg PO DAILY [facility] Last Admin: 05/06/24 09:21 Dose: 100 mg Documented By: NIGHAT Sodium Chloride (0.9 % Sodium Chloride Flush 3 Ml Syringe) 3 ml IVFLUSH QSHIFT [facility] Last Admin: 05/06/24 09:22 Dose: 3 ml Documented By: NIGHAT Trazodone HCl (Trazodone Hcl 100 Mg Tablet) 100 mg PO BEDTIME PRN PRN Reason: Sleep Last Admin: 05/04/24 20:38 Dose: 100 mg Documented By: DITOATTILA Valproic Acid (Valproic Acid 250 Mg Capsule) 1,000 mg PO BID [facility] Last Admin: 05/06/24 09:20 Dose: 1,000 mg Documented By: NIGHAT Vitamin D (Cholecalciferol (Vitamin D3) 25 Mcg Tablet) 50 mcg PO DAILY [facility] Last Admin: 05/06/24 09:21 Dose: 50 mcg Documented By: NIGHAT Labs 05/06/24 08:34 05/06/24 06:29 Labs: Laboratory Results - last 24 hr 05/04/24 05/05/24 05/05/24 03:30 08:02 10:37 MCV MCH MCHC RDW Plt Count MPV Absolute Nucleated RBC Nucleated RBC % (auto) ESR > 140 H Anion Gap Estim Creat Clear Calc Estimated GFR POC Glucose Random Glucose Calcium Iron TIBC % Saturation Unsat Iron Binding Ferritin C-Reactive Protein 41.21 H Vitamin B12 Folate Phenytoin Valproic Acid Blood Type O Positive Antibody Screen NEGATIVE Crossmatch See Detail 05/05/24 05/05/24 05/06/24 16:25 21:18 06:29 MCV 86.8 MCH 28.5 MCHC 32.9 RDW 25.2 H Plt Count TNP MPV TNP Absolute Nucleated RBC 0.000 Nucleated RBC % (auto) 0.0 ESR Anion Gap 21 H Estim Creat Clear Calc 9.1 Estimated GFR 6 POC Glucose 176 H 177 H Random Glucose 151 H Calcium 8.0 L Iron 31 TIBC 148 L % Saturation 21 Unsat Iron Binding 117 Ferritin 1887 H C-Reactive Protein Vitamin B12 Folate Phenytoin < 1.8 L* Valproic Acid 25.3 L Blood Type Antibody Screen Crossmatch 05/06/24 05/06/24 05/06/24 07:18 08:34 11:56 MCV MCH MCHC RDW Plt Count MPV Absolute Nucleated RBC Nucleated RBC % (auto) ESR Anion Gap Estim Creat Clear Calc Estimated GFR POC Glucose 141 H 176 H Random Glucose Calcium Iron TIBC % Saturation Unsat Iron Binding Ferritin C-Reactive Protein Vitamin B12 695 Folate 11.8 Phenytoin Valproic Acid Blood Type Antibody Screen Crossmatch Microbiology Microbiology Results: Microbiology 05/04/24 08:26 Blood Culture - Preliminary Blood - Venous No growth after 48 hours. 05/04/24 08:25 Blood Culture - Preliminary Blood - Venous No growth after 48 hours. 05/04/24 15:12 Urine Culture - Final Urine clean catch - Clean Catch Midstream Assessment and Plan (1) Cellulitis: Status: Acute (2) Acute subdural hematoma: Status: Acute Assessment and Plan: 68-year-old female with a PMH significant for?ESRD on HD M/W/F, HFpEF, seizure disorder, insulin-dependent type 2 diabetes, hx of osteomyelitis s/p left 5th toe amp on 03/28/2024, anemia of chronic disease requiring frequent transfusions, asthma, HTN, and GERD who presents to the ED after fall at home earlier this morning as pt was ambulating to the bathroom. Pt will be admitted to the hospital for treatment further evaluation of multiple issues, including subdural hematoma s/p fall at home, and generalized weakness with fall at home in the setting of acute on chronic anemia, cellulitis with sepsis secondary to chronic diabetic foot ulcer, at community-acquired pneumonia. Subdural hematoma:CT small right parafalcine subdural hematoma up to 4 mm in thickness; repeat CT 6 hours later stable S/p fall at home with head strike on table; no LOC; neuro exam intact; pt AO x3; GCS 15 Ed contacted Neurosurgery at [facility] who said no intervention necessary plan:Hold aspirin Check hip x-ray-Faint lucency along the right inferior pubic ramus seen only on one view and possibly artifactual,we checked pelvic ct-does not show any fracture. seen by neuro-subdural hematoma, stable, no acute intervention. PT consult-Monitor mentation. Left foot cellulitis with sepsis S/P fifth digit amputation d/t diabetic foot infection osteomyelitis on 03/28/2024 Meets sepsis - tachycardia, leukocytosis improving. acute lactic acidosis ( sec to dehydration) improved. esr/crp elevated continue vancomycin and Zosyn, started 05/04/2024 General surgery consult for wound care recommendations and possible debridement,Follow cultures. multiple areas of wounds in various stages of healing Most prominent right heel and right flank General surgery consult as above for wound care recommendations and possible debridement Acute on chronic anemia of chronic disease H&H 6.0/17.5 ,s/p 2prbc in ed -h/h flactuating ,will added 1 prbc with hd. Pt not on thinners, denies hematochezia or melena Pt requiring multiple transfusions in the past Follow H&H, transfuse as necessary Question of community-acquired pneumonia ua also has pyuria /bacteruria CXR showed probable right lower lobe pneumonia continue antibiotics as above( vanco/zosyn), not hypoxic, not requiring supplemental O2 ESRD on HD M/W/F: Nephrology consult, follows with [facility] Follow BMP Insulin-dependent type 2 diabetes: Sliding-scale insulin, Lantus Diabetic diet Seizure disorder: Continue levetiracetam, valproate, and phenytoin. Phenytion and valproic acid levels lower side d/w patient daughter in detail-patient seems compliance with above meds,no seizure episode continue current meds. . HTN Continue and losartan Mood disorder Continue sertraline, lorazepam Full Code DVT Prophylaxis: Pneumatic compression ongoing need for hospitalization of at least two nights for treatment and further evaluation of multiple issues, including subdural hematoma s/p fall at home, and generalized weakness with fall at home in the setting of acute on chronic anemia, cellulitis with sepsis secondary to chronic diabetic foot ulcer, at community-acquired pneumonia. Quality Stroke Does the patient have a stroke diagnosis?: No VTE Prior VTE?: No VTE Risk Level:: Medical - moderate - high VTE Device Contraindication: N/A - Device Ordered VTE Drug Contraindication: Treatment Not Indicated
--- NOTE | 2024-05-06 13:40 | HO.WOUND ---
Wound Consult: Attempted Arrival to bedside patient was off unit - will attempt skin assessment at future date and or time.
[2024-05-06 17:22] LABS: Glucose, Whole Blood 170 mg/dL (60-115)
[2024-05-06] MEDS: levETIRAcetam 500 MG TABLET PO (17:44)
[2024-05-06] MEDS: Gabapentin 300 MG CAPSULE PO (17:45)
[2024-05-06 19:21] LABS: Vancomycin Random 8.9 mcg/mL (15-20)
[2024-05-06 20:43] LABS: Glucose, Whole Blood 220 mg/dL (60-115)
[2024-05-06] MEDS: vancomycin HCL 500 MG in 0.9 % Sodium Chloride 100 ML 110 MG IV (21:23)
[2024-05-07] MEDS: oxyCODONE HCl Immed Release 5 MG TABLET PO ×5 (01:05→20:05)
[2024-05-07 01:14] LABS: OBS Int Ctl Valid YES; OBS1 NEGATIVE (NEGATIVE)
[2024-05-07] MEDS: Acetaminophen 325 MG TABLET 650 MG PO ×3 (02:26→16:29)
[2024-05-07] MEDS: Melatonin 3 MG TABLET 6 MG PO (02:27)
[2024-05-07] MEDS: Piperacillin Sodium/Tazobactam 2.25 GM in 0.9 % Sodium Chloride 50 ML IV ×2 (02:33→13:34)
[2024-05-07 04:00] VITALS: BP 140/65; PULSE 85; RESP 18; TEMP 37.2; O2SAT 96
[2024-05-07] MEDS: Omeprazole 40 MG CAPSULE.DR PO ×2 (05:32→16:28)
[2024-05-07 07:50] VITALS: BP 140/64; PULSE 90; RESP 19; TEMP 36.4; O2SAT 96
[2024-05-07 08:02] LABS: Glucose, Whole Blood 139 mg/dL (60-115)
[2024-05-07] MEDS: Sertraline HCL 100 MG TABLET PO (08:40)
[2024-05-07] MEDS: Furosemide 40 MG TABLET 80 MG PO ×2 (08:40→20:04)
[2024-05-07] MEDS: Ferrous Sulfate 324 MG TABLET.DR PO (08:40)
[2024-05-07] MEDS: Atorvastatin Calcium 80 MG TABLET PO (08:40)
[2024-05-07] MEDS: Cholecalciferol (Vitamin D3) 25 MCG TABLET 50 MCG PO (08:40)
[2024-05-07] MEDS: Phenytoin Sodium Extended 100 MG CAPSULE PO ×3 (08:41→20:05)
[2024-05-07] MEDS: Gabapentin 100 MG CAPSULE 200 MG PO (08:41)
[2024-05-07] MEDS: Valproic Acid 250 MG CAPSULE 1000 MG PO ×2 (08:41→20:04)
[2024-05-07] MEDS: Folic Acid 1 MG TABLET PO (08:41)
[2024-05-07] MEDS: 0.9 % Sodium Chloride Flush 3 ML SYRINGE IVFLUSH ×3 (08:51→20:11)
--- NOTE | 2024-05-07 09:37 | PM.PNGS ---
Subjective Subjective Date of Service: 05/08/24 Interval history: Asked to see the patient because right heel eschar She describes pain on this area Physical Exam Vital Signs: Vital Signs: Last Vital Signs Temp 97.5 F 05/07/24 07:50 Pulse 90 05/07/24 07:50 Resp 19 05/07/24 07:50 BP 140/64 H 05/07/24 07:50 Pulse Ox 96 05/07/24 07:50 O2 Del Method Room Air 05/07/24 07:50 BMI result Body Mass Index 41.3 Const: Other: Mildly short of breath, very frail looking Resp: Other: Mildly short of breath Cardio: Rate: regular rate GI: Palpation (GI): Soft to palpation Extrem: Other: Right heel with note of a thick eschar, about 9 cm in widest dimension Left foot amputation site dry, no need for debridement at this time Objective Data Active Medications Acetaminophen (Acetaminophen 325 Mg Tablet) 650 mg PO Q6H PRN PRN Reason: Pain, Mild 1-3,fever,headache Last Admin: 05/07/24 02:26 Dose: 650 mg Documented By: CONSTANTIN Atorvastatin Calcium (Atorvastatin Calcium 80 Mg Tablet) 80 mg PO DAILY [facility] Last Admin: 05/07/24 08:40 Dose: 80 mg Documented By: NIGHAT Calcium Carbonate (Calcium Carbonate 750 Mg Tab.Chew) 750 mg PO Q4H PRN PRN Reason: Heartburn Dextrose (Dextrose 50 % 25 Gm/50 Ml Syringe) 25 gm IVPUSH Q15M PRN; Protocol PRN Reason: per Hypoglycemia Standing Ord. Ferrous Sulfate (Ferrous Sulfate 324 Mg Esteban.) 324 mg PO DAILY [facility] Last Admin: 05/07/24 08:40 Dose: 324 mg Documented By: NIGHAT Folic Acid (Folic Acid 1 Mg Tablet) 1 mg PO DAILY [facility] Last Admin: 05/07/24 08:41 Dose: 1 mg Documented By: NIGHAT Furosemide (Furosemide 40 Mg Tablet) 80 mg PO BID [facility]; Protocol Last Admin: 05/07/24 08:40 Dose: 80 mg Documented By: NIGHAT Gabapentin (Gabapentin 100 Mg Capsule) 200 mg PO DAILY [facility] Last Admin: 05/07/24 08:41 Dose: 200 mg Documented By: NIGHAT Gabapentin (Gabapentin 300 Mg Capsule) 300 mg PO MOWEFR@1800 [facility] Last Admin: 05/06/24 17:45 Dose: 300 mg Documented By: NIGHAT Glucose (Glucose Gel 15 Gm Gel..Gram.) 15 gm PO Q15M PRN; Protocol PRN Reason: per Hypoglycemia Standing Ord. Vancomycin HCl 500 mg/ Sodium (Chloride) 110 mls @ 110 mls/hr IV ONCE ONE Stop: 05/04/24 13:44 Piperacillin Sod/Tazobactam (Sod 2.25 gm/ Sodium Chloride) 50 mls @ 100 mls/hr IV Q12H [facility] Last Infusion: 05/07/24 03:11 Dose: Infused Documented By: CONSTANTIN Insulin Glargine (Insulin Glargine,Hum.Rec.Anlog 100 Unit/Ml 10 Ml Vial) 21 unit SUBCUT BEDTIME [facility] Last Admin: 05/04/24 20:38 Dose: 21 unit Documented By: FAHAD Insulin Human Lispro (Insulin Lispro 100 Unit/Ml 3 Ml Vial) 0 unit SUBCUT QIDACHS [facility]; Protocol Last Admin: 05/07/24 08:52 Dose: Not Given Documented By: NIGHAT Non-Admin Reason: No Insulin Coverage Levetiracetam (Levetiracetam 500 Mg Tablet) 500 mg PO MOWEFR@1800 [facility] Last Admin: 05/06/24 17:44 Dose: 500 mg Documented By: NIGHAT Lorazepam (Lorazepam 0.5 Mg Tablet) 0.5 mg PO DAILY PRN PRN Reason: anxiety Last Admin: 05/06/24 09:21 Dose: 0.5 mg Documented By: NIGHAT Magnesium Hydroxide (Milk Of Magnesia 30 Ml Oral.Susp) 30 ml PO DAILY PRN PRN Reason: Constipation Melatonin (Melatonin 3 Mg Tablet) 6 mg PO BEDTIME PRN PRN Reason: Insomnia Last Admin: 05/07/24 02:27 Dose: 6 mg Documented By: CONSTANTIN Omeprazole (Omeprazole 40 Mg Capsule.) 40 mg PO BID@0630,1630 [facility] Last Admin: 05/07/24 05:32 Dose: 40 mg Documented By: NAM Oxycodone HCl (Oxycodone Hcl Immed Release 5 Mg Tablet) 5 mg PO Q4H PRN PRN Reason: Pain, Moderate(Pain Scale 4-6) Last Admin: 05/07/24 05:33 Dose: 5 mg Documented By: NAM Pharmacy Consult (Consult Rx Vancomycin Dosing) 1 each MISCELLANE DAILY PRN PRN Reason: Consult order Phenytoin Sodium (Phenytoin Sodium Extended 100 Mg Capsule) 100 mg PO TID [facility] Last Admin: 05/07/24 08:41 Dose: 100 mg Documented By: NIGHAT Sertraline HCl (Sertraline Hcl 100 Mg Tablet) 100 mg PO DAILY [facility] Last Admin: 05/07/24 08:40 Dose: 100 mg Documented By: NIGHAT Sodium Chloride (0.9 % Sodium Chloride Flush 3 Ml Syringe) 3 ml IVFLUSH QSHIFT [facility] Last Admin: 05/07/24 08:51 Dose: 3 ml Documented By: NIGHAT Trazodone HCl (Trazodone Hcl 100 Mg Tablet) 100 mg PO BEDTIME PRN PRN Reason: Sleep Last Admin: 05/04/24 20:38 Dose: 100 mg Documented By: JANNYTOATTILA Valproic Acid (Valproic Acid 250 Mg Capsule) 1,000 mg PO BID [facility] Last Admin: 05/07/24 08:41 Dose: 1,000 mg Documented By: NIGHAT Vitamin D (Cholecalciferol (Vitamin D3) 25 Mcg Tablet) 50 mcg PO DAILY [facility] Last Admin: 05/07/24 08:40 Dose: 50 mcg Documented By: NIGHAT Labs 05/08/24 06:21 05/08/24 06:21 Labs: Laboratory Results - last 24 hr 05/04/24 05/06/24 05/06/24 03:30 08:34 11:56 POC Glucose 176 H Vitamin B12 695 Folate 11.8 Stool Occult Blood Random Vancomycin Blood Type O Positive Antibody Screen NEGATIVE Crossmatch See Detail 05/06/24 05/06/24 05/06/24 17:16 18:53 20:37 POC Glucose 170 H 220 H Vitamin B12 Folate Stool Occult Blood Random Vancomycin 8.9 L Blood Type Antibody Screen Crossmatch 05/07/24 05/07/24 01:00 07:58 POC Glucose 139 H Vitamin B12 Folate Stool Occult Blood NEGATIVE Random Vancomycin Blood Type Antibody Screen Crossmatch Microbiology Microbiology Results: Microbiology 05/04/24 08:26 Blood Culture - Preliminary Blood - Venous No growth after 48 hours. 05/04/24 08:25 Blood Culture - Preliminary Blood - Venous No growth after 48 hours. Procedures Date of Service Date of Service: 05/08/24 Progress Note: A&P Assessment and plan (1) Eschar of heel: Status: Acute Assessment and Plan: She has a thick eschar on the left heel as described above with some redness surrounding this Best to do excisional debridement for this We will need to scheduled this in the OR as the patient was uncomfortable tenderness We will have to do this in between her dialysis days I will talk to her family with regards to this Time Spent With Patient Time: Total time managing care of this patient today ____ minutes. Quality Stroke Does the patient have a stroke diagnosis?: No VTE Prior VTE?: No VTE Risk Level:: Medical - moderate - high VTE Device Contraindication: N/A - Device Ordered VTE Drug Contraindication: Treatment Not Indicated
[2024-05-07 09:57] LABS: Anion Gap 17 (12-20); Blood Urea Nitrogen 54 mg/dL (9-16); Calcium 7.8 mg/dL (8.4-10.2); Carbon Dioxide 23 mmol/L (22-29); Chloride 103 mmol/L (96-108); Creatinine Clr Calc Pharmacy 12.2; Estimated Glomerular Filt Rate 9; Glucose Random 161 mg/dL (60-115); Potassium 4.3 mmol/L (3.3-5.1); Sodium 139 mmol/L (135-145)
[2024-05-07 11:17] LABS: Glucose, Whole Blood 171 mg/dL (60-115)
[2024-05-07 11:47] VITALS: BP 152/72; PULSE 80; RESP 18; TEMP 36.4; O2SAT 94
--- NOTE | 2024-05-07 12:04 | HO.PM.IMPN ---
Subjective Subjective Date of Service: 05/07/24 Interval History: Complaining of weakness, tiredness and foot pain. Review of Systems All 12 systems were reviewed and normal except as noted in HPI. Physical Exam Vital Signs: Vital Signs: Last Vital Signs Temp 97.5 F 05/07/24 11:47 Pulse 80 05/07/24 11:47 Resp 18 05/07/24 11:47 BP 152/72 H 05/07/24 11:47 Pulse Ox 94 05/07/24 11:47 O2 Del Method Room Air 05/07/24 11:47 BMI result Body Mass Index 41.3 Constitutional - Awake and Alert, No apparent distress. Looks uncomfortable due to pain. Obese. Cooperative. HEENT - PERRL, EOMI. Dry oral mucosa. Heart - S1S2, RRR, No murmurs Lungs - Normal lung expansion, Normal respiratory effort, No respiratory distress, CTA bilaterally Abdomen - NT / ND; +BS; No rebound or guarding Extremities - Right foot/heel eschar noted. Left foot: Dressing in place and clean. Skin - Warm/Dry Neurological - Alert & oriented x3. [place] PO oriented x3. No focal weakness grossly noted. Psychological - Depressed affect Objective Data Active Medications Acetaminophen (Acetaminophen 325 Mg Tablet) 650 mg PO Q6H PRN PRN Reason: Pain, Mild 1-3,fever,headache Last Admin: 05/07/24 02:26 Dose: 650 mg Documented By: CONSTANTIN Atorvastatin Calcium (Atorvastatin Calcium 80 Mg Tablet) 80 mg PO DAILY [facility] Last Admin: 05/07/24 08:40 Dose: 80 mg Documented By: NIGHAT Calcium Carbonate (Calcium Carbonate 750 Mg Tab.Chew) 750 mg PO Q4H PRN PRN Reason: Heartburn Dextrose (Dextrose 50 % 25 Gm/50 Ml Syringe) 25 gm IVPUSH Q15M PRN; Protocol PRN Reason: per Hypoglycemia Standing Ord. Ferrous Sulfate (Ferrous Sulfate 324 Mg Tablet.) 324 mg PO DAILY [facility] Last Admin: 05/07/24 08:40 Dose: 324 mg Documented By: NIGHAT Folic Acid (Folic Acid 1 Mg Tablet) 1 mg PO DAILY [facility] Last Admin: 05/07/24 08:41 Dose: 1 mg Documented By: NIGHAT Furosemide (Furosemide 40 Mg Tablet) 80 mg PO BID [facility]; Protocol Last Admin: 05/07/24 08:40 Dose: 80 mg Documented By: NIGHAT Gabapentin (Gabapentin 100 Mg Capsule) 200 mg PO DAILY [facility] Last Admin: 05/07/24 08:41 Dose: 200 mg Documented By: NIGHAT Gabapentin (Gabapentin 300 Mg Capsule) 300 mg PO MOWEFR@1800 [facility] Last Admin: 05/06/24 17:45 Dose: 300 mg Documented By: NIGHAT Glucose (Glucose Gel 15 Gm Gel..Gram.) 15 gm PO Q15M PRN; Protocol PRN Reason: per Hypoglycemia Standing Ord. Vancomycin HCl 500 mg/ Sodium (Chloride) 110 mls @ 110 mls/hr IV ONCE ONE Stop: 05/04/24 13:44 Piperacillin Sod/Tazobactam (Sod 2.25 gm/ Sodium Chloride) 50 mls @ 100 mls/hr IV Q12H [facility] Last Infusion: 05/07/24 03:11 Dose: Infused Documented By: CONSTANTIN Insulin Glargine (Insulin Glargine,Hum.Rec.Anlog 100 Unit/Ml 10 Ml Vial) 21 unit SUBCUT BEDTIME [facility] Last Admin: 05/04/24 20:38 Dose: 21 unit Documented By: FAHAD Insulin Human Lispro (Insulin Lispro 100 Unit/Ml 3 Ml Vial) 0 unit SUBCUT QIDACHS [facility]; Protocol Last Admin: 05/07/24 11:41 Dose: Not Given Documented By: NIGHAT Non-Admin Reason: No Insulin Coverage Levetiracetam (Levetiracetam 500 Mg Tablet) 500 mg PO MOWEFR@1800 [facility] Last Admin: 05/06/24 17:44 Dose: 500 mg Documented By: NIGHAT Lorazepam (Lorazepam 0.5 Mg Tablet) 0.5 mg PO DAILY PRN PRN Reason: anxiety Last Admin: 05/06/24 09:21 Dose: 0.5 mg Documented By: NIGHAT Magnesium Hydroxide (Milk Of Magnesia 30 Ml Oral.Susp) 30 ml PO DAILY PRN PRN Reason: Constipation Melatonin (Melatonin 3 Mg Tablet) 6 mg PO BEDTIME PRN PRN Reason: Insomnia Last Admin: 05/07/24 02:27 Dose: 6 mg Documented By: CONSTANTIN Omeprazole (Omeprazole 40 Mg Otis.) 40 mg PO BID@0630,1630 [facility] Last Admin: 05/07/24 05:32 Dose: 40 mg Documented By: NAM Oxycodone HCl (Oxycodone Hcl Immed Release 5 Mg Tablet) 5 mg PO Q4H PRN PRN Reason: Pain, Moderate(Pain Scale 4-6) Last Admin: 05/07/24 10:33 Dose: 5 mg Documented By: NIGHAT Pharmacy Consult (Consult Rx Vancomycin Dosing) 1 each MISCELLANE DAILY PRN PRN Reason: Consult order Phenytoin Sodium (Phenytoin Sodium Extended 100 Mg Capsule) 100 mg PO TID [facility] Last Admin: 05/07/24 08:41 Dose: 100 mg Documented By: NIGHAT Sertraline HCl (Sertraline Hcl 100 Mg Tablet) 100 mg PO DAILY [facility] Last Admin: 05/07/24 08:40 Dose: 100 mg Documented By: NIGHAT Sodium Chloride (0.9 % Sodium Chloride Flush 3 Ml Syringe) 3 ml IVFLUSH QSHIFT [facility] Last Admin: 05/07/24 08:51 Dose: 3 ml Documented By: NIGHAT Trazodone HCl (Trazodone Hcl 100 Mg Tablet) 100 mg PO BEDTIME PRN PRN Reason: Sleep Last Admin: 05/04/24 20:38 Dose: 100 mg Documented By: FAHAD Valproic Acid (Valproic Acid 250 Mg Capsule) 1,000 mg PO BID [facility] Last Admin: 05/07/24 08:41 Dose: 1,000 mg Documented By: NIGHAT Vitamin D (Cholecalciferol (Vitamin D3) 25 Mcg Tablet) 50 mcg PO DAILY [facility] Last Admin: 05/07/24 08:40 Dose: 50 mcg Documented By: NIGHAT Labs 05/06/24 08:34 05/07/24 09:10 Labs: Laboratory Results - last 24 hr 05/04/24 05/06/24 05/06/24 03:30 17:16 18:53 Anion Gap Estim Creat Clear Calc Estimated GFR POC Glucose 170 H Random Glucose Calcium Stool Occult Blood Random Vancomycin 8.9 L Blood Type O Positive Antibody Screen NEGATIVE Crossmatch See Detail 05/06/24 05/07/24 05/07/24 20:37 01:00 07:58 Anion Gap Estim Creat Clear Calc Estimated GFR POC Glucose 220 H 139 H Random Glucose Calcium Stool Occult Blood NEGATIVE Random Vancomycin Blood Type Antibody Screen Crossmatch 05/07/24 05/07/24 09:10 11:01 Anion Gap 17 Estim Creat Clear Calc 12.2 Estimated GFR 9 POC Glucose 171 H Random Glucose 161 H Calcium 7.8 L Stool Occult Blood Random Vancomycin Blood Type Antibody Screen Crossmatch Microbiology Microbiology Results: Microbiology 05/04/24 08:26 Blood Culture - Preliminary Blood - Venous No growth after 48 hours. 05/04/24 08:25 Blood Culture - Preliminary Blood - Venous No growth after 48 hours. Assessment and Plan (1) Eschar of heel: Status: Acute (2) Cellulitis: Status: Acute (3) ESRD (end stage renal disease) on dialysis: Status: Acute Plan 68-year-old woman admitted with: Subdural hematoma:CT small right parafalcine subdural hematoma up to 4 mm in thickness; traumatic; repeat CT 6 hours later stable S/p fall at home with head strike on table; no LOC; neuro exam intact; pt AO x3; GCS 15 ED contacted Neurosurgery at [facility] - no interventions needed. Hold aspirin. Check hip x-ray-Faint lucency along the right inferior pubic ramus seen only on one view and possibly artifactual -pelvic ct-does not show any fracture. PT consult-Monitor mentation. Left foot cellulitis with sepsis +left heel escar. 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 Continue to monitor WBCs and lactic acid. ESR/CRP elevated, rechecked tomorrow Continue vancomycin and Zosyn, started 05/04/2024 Evaluated by General surgery today - excision and debridement to be scheduled (between hemodialysis sessions) Acute on chronic anemia of chronic disease Hgb yesterday 7.5 (s/p PRBCs transfusions). Check CBC now. Will transfuse as needed. Question of community-acquired pneumonia Denies symptoms. Denies shortness on breath. Oxygen saturation is 94 on room air. ua also has pyuria /bacteruria CXR showed probable right lower lobe pneumonia Continue IV antibiotic therapy with Zosyn and vancomycin. ESRD on HD M/W/F: Nephrology consult, follows with [facility] Follow BMP, phosphorus and magnesium Type 2 diabetes mellitus Sliding-scale insulin, Lantus Diabetic diet Seizure disorder Continue levetiracetam, valproate, and phenytoin. Phenytion and valproic acid levels lower side. Recheck levels d/w patient daughter in detail-patient seems compliance with above meds,no seizure episode HTN Restart amlodipine. Mood disorder Continue sertraline, lorazepam Hyperlipidemia Continue atorvastatin Full Code DVT Prophylaxis: Pneumatic compression Patient continue H2 required inpatient treatment for further evaluation of multiple issues, including subdural hematoma s/p fall at home, and generalized weakness with fall at home in the setting of acute on chronic anemia, cellulitis with sepsis, left heel eschar requiring debridement by surgery Quality Stroke Does the patient have a stroke diagnosis?: No VTE Prior VTE?: No VTE Risk Level:: Medical - moderate - high VTE Device Contraindication: N/A - Device Ordered VTE Drug Contraindication: Treatment Not Indicated
[2024-05-07 13:08] LABS: Basophils Absolute Auto 0.1 X10*3/uL (0.0-0.2); Basophils Percent Auto 0.5 % (0-2); Eosinophils Absolute Auto 0.6 X10*3/uL (0.0-0.4); Eosinophils Percent Auto 4.3 % (0-4); Hematocrit 22.6 % (37.0-47.0); Hemoglobin 7.7 g/dl (12.0-16.0); Imm Gran Abs Auto 0.35 X10*3/uL (0.00-0.03); Imm Gran Pct Auto 2.4 % (0.0-0.4); Lymphocytes Absolute Auto 1.4 X10*3/uL (1.2-4.9); Lymphocytes Percent Auto 9.6 % (20-40); Mean Corpuscular HGB Conc 34.1 g/dl (31.0-35.0); Mean Corpuscular Hemoglobin 29.4 pg (27.0-33.0); Mean Corpuscular Volume 86.3 fL (80.0-98.0); Monocytes Absolute Auto 1.1 X10*3/uL (0.1-1.2); Monocytes Percent Auto 7.4 % (2-11); Neutrophils Absolute Auto 11.2 x10*3/uL (2.0-8.3); Neutrophils Percent Auto 75.8 % (45-73); Red Blood Count 2.62 X10*6/uL (4.20-5.50); Red Cell Distribution Width 23.1 % (11.0-16.0); White Blood Count 14.8 X10*3/uL (4.8-10.8)
[2024-05-07 13:09] LABS: MANUAL DIFF FLAG SCAN
[2024-05-07 13:13] LABS: Lactic Acid 1.3 mmol/L (0.5-2.0)
[2024-05-07 13:30] LABS: SLIDE REVIEW VERIFIED
--- NOTE | 2024-05-07 14:50 | HO.WOUND ---
Wound Consult: Initial 68yr old? female admitted to [facility] [place] on 05/04/24- See progress notes and H&P for detailed history.? Wound consult placed for Multiple wounds present on admission.? Patient agreeable to assessment and photo documentation.? The patient is [place] speaking. She is not able to identify where the wounds are from. Chart review questions if the wounds are secondary to falls at home. See history in chart review for right thigh wound - progression has been atypical and some of the wounds are not typical pressure locations and progressions. TT to Dr. Vines and Provider with concerns for aty[ical wound - requested to have Dr. Vines assess for debridement when he takes patient to OR for right heel debridement in addition to Biopsy to aid in etiology determination. The left foot wound is a non-healing surgical incision from an amputation - topical recommendations made by Dr Salas for Durafiber - however the wound is very odorous and does probe to bone - recommend re-evaluation and assessment for Dakins dressing and or debridement and imaging. Left Posterior Calf Left Lateral thigh Right Lateral Thigh Right Heel Left Lateral Foot -5th toe amp site Left Ischium Etiology: ??Unclear etiology at this time - Recommend Biopsy to rule out Calciphylaxis Wound Bed: various stages of wound progression Drainage / Odor: Foul odor noted to left 5th toe site and Right heel Edges: ? irregular and non attached Ruth wound: ?[place] red edges No Induration, Fluctuance noted Pain: extreme pain reported Goals of Treatment: ? Debridement planned in Or by Dr. Vines - see below for topical recommendations at this time. unclear of timeline for debridement at this time. Recommendations: 1. Turn and Reposition every 2 hours and as needed for patient comfort.? Use pillows or wedges to support off loading positions. 2. Off Load all bony prominences with use of pillows and heel boots if needed.? Apply Preventative foams where needed. ? 3. Monitor for incontinence and moisture control, use barrier creams when needed for prevention and treatment. 4. Provide adequate and supplemental nutrition.? 5. Order low air loss mattress. 6. When applicable maintain blood glucose levels per Providers order. 7. Skin Folds - Cleanse with PH balance wipes, pat dry with soft cloth.? Apply antifungal power to assist with moisture management.? Be sure to dust of excess powder to prevent caking on skin and in folds. Apply per provider orders. Tuck Interdry AG Sheet into skin fold to wick and translocate moisture away from skin fold.? Be sure to leave at least 2 inch of fabric exposed outside of skin fold.? Change after 5 days or when soiled. 8. Left Foot - Durafiber at this time - defer to Surgery team - recommend considering Dakins due to odor and drainage. 9. Perineal and Left Ischium - Off Load Pressure with Q2 hr turns and use of pillows - Cleanse with PH balance spray or wipes, pat dry. ?Apply thin layer of Triad to wound bed - only pat and dab no scrub and rub when soiling occurs. Reapply thin layer PRN after each episode of incontinence. 10. Right Heel and left Calf - Cleanse with NS moist gauze, Pat dry.? Apply barrier to periwound, apply Durafiber AG to wound bed, cover with dry gauze, ABd pad and wrap.? Change every other day. 11. Bilateral Lateral Thighs - Off Load Pressure with Q2 hr turns and use of pillows - Cleanse with PH balance spray or wipes, pat dry. ?Apply thin layer of Triad to wound bed cover with foam dressing - change every other day. Re-consult wound care Nurse for wound deterioration or wound changes.
[2024-05-07 15:51] VITALS: BP 141/66; PULSE 73; RESP 18; TEMP 36.6; O2SAT 94
[2024-05-07 16:26] LABS: Glucose, Whole Blood 157 mg/dL (60-115)
[2024-05-07 19:38] VITALS: BP 145/65; PULSE 86; RESP 18; TEMP 37.1; O2SAT 97
[2024-05-07] MEDS: traZODone HCL 100 MG TABLET PO (20:05)
--- NOTE | 2024-05-07 23:58 | P.CNID_ITS ---
History of Present Illness Data of Consult Service Date: 05/07/24 Requesting physician: Juan Nogueira Primary Care Provider: Lucrecia Teixeira MD [facility] Reason for consult: left foot drainage She has worsening left foot malodor and redness over last two days She had fifth toe removal Dr Vines and now redness rest of foot. She has no fever or chills. Review of Systems 2 Review of Systems: Yes all other systems are reviewed and are negative PMFSH Past Medical History Medical History Eschar of heel ESRD (end stage renal disease) Generalized seizure Acute kidney injury CKD (chronic kidney disease) stage 3, GFR 30-59 ml/min CHF (congestive heart failure) Anemia Brain tumor (benign) Lower extremity edema Pneumonia Asthma Pulmonary nodule HLD (hyperlipidemia) Seizure Acute hypoxemic respiratory failure due to COVID-19 COVID-19 Kidney stone Depression Gastritis Diabetes Family History Family History Father CAD (coronary artery disease) Brother Lung cancer Sister Kidney stone Family history: reviewed and not pertinent Surgical History Surgical History 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) H/O lithotripsy H/O ureteroscopy H/O cystoscopy S/P ureteral stent placement History of cholecystectomy H/O hernia repair Social History Social History Household Members: Children Housing: House Do you presently have visiting nurse or other home services: Yes (daughter is overseer [employer], vna 2x week.) Alcohol intake: former Comment: pt sleeping at this time Patient Tobacco Use Status: Never used Tobacco e-Cigarette/Vaping Use: Never Used Advance Directives Date on File: 12/20/21 service: No Current occupational status: unemployed Meds Allergies Allergy/AdvReac Type Severity Reaction Status Date / Time Egg Derived Allergy Unknown Verified 05/04/24 01:05 Active Medications: Current Medications Acetaminophen (Acetaminophen 325 Mg Tablet) 650 mg PO Q6H PRN PRN Reason: Pain, Mild 1-3,fever,headache Last Admin: 05/07/24 16:29 Dose: 650 mg Atorvastatin Calcium (Atorvastatin Calcium 80 Mg Tablet) 80 mg PO DAILY [facility] Last Admin: 05/07/24 08:40 Dose: 80 mg Calcium Carbonate (Calcium Carbonate 750 Mg Tab.Chew) 750 mg PO Q4H PRN PRN Reason: Heartburn Dextrose (Dextrose 50 % 25 Gm/50 Ml Syringe) 25 gm IVPUSH Q15M PRN; Protocol PRN Reason: per Hypoglycemia Standing Ord. Ferrous Sulfate (Ferrous Sulfate 324 Mg Tablet.Dr) 324 mg PO DAILY [facility] Last Admin: 05/07/24 08:40 Dose: 324 mg Folic Acid (Folic Acid 1 Mg Tablet) 1 mg PO DAILY [facility] Last Admin: 05/07/24 08:41 Dose: 1 mg Furosemide (Furosemide 40 Mg Tablet) 80 mg PO BID [facility]; Protocol Last Admin: 05/07/24 20:04 Dose: 80 mg Gabapentin (Gabapentin 100 Mg Capsule) 200 mg PO DAILY [facility] Last Admin: 05/07/24 08:41 Dose: 200 mg Gabapentin (Gabapentin 300 Mg Capsule) 300 mg PO MOWEFR@1800 [facility] Last Admin: 05/06/24 17:45 Dose: 300 mg Glucose (Glucose Gel 15 Gm Gel..Gram.) 15 gm PO Q15M PRN; Protocol PRN Reason: per Hypoglycemia Standing Ord. Vancomycin HCl 500 mg/ Sodium (Chloride) 110 mls @ 110 mls/hr IV ONCE ONE Stop: 05/04/24 13:44 Piperacillin Sod/Tazobactam (Sod 2.25 gm/ Sodium Chloride) 50 mls @ 100 mls/hr IV Q12H [facility] Last Infusion: 05/07/24 14:05 Dose: Infused Insulin Glargine (Insulin Glargine,Hum.Rec.Anlog 100 Unit/Ml 10 Ml Vial) 21 unit SUBCUT BEDTIME [facility] Last Admin: 05/04/24 20:38 Dose: 21 unit Insulin Human Lispro (Insulin Lispro 100 Unit/Ml 3 Ml Vial) 0 unit SUBCUT QIDACHS [facility]; Protocol Last Admin: 05/07/24 20:17 Dose: Not Given Levetiracetam (Levetiracetam 500 Mg Tablet) 500 mg PO MOWEFR@1800 [facility] Last Admin: 05/06/24 17:44 Dose: 500 mg Lorazepam (Lorazepam 0.5 Mg Tablet) 0.5 mg PO DAILY PRN PRN Reason: anxiety Last Admin: 05/06/24 09:21 Dose: 0.5 mg Magnesium Hydroxide (Milk Of Magnesia 30 Ml Oral.Susp) 30 ml PO DAILY PRN PRN Reason: Constipation Melatonin (Melatonin 3 Mg Tablet) 6 mg PO BEDTIME PRN PRN Reason: Insomnia Last Admin: 05/07/24 02:27 Dose: 6 mg Omeprazole (Omeprazole 40 Mg Capsule.Dr) 40 mg PO BID@0630,1630 [facility] Last Admin: 05/07/24 16:28 Dose: 40 mg Oxycodone HCl (Oxycodone Hcl Immed Release 5 Mg Tablet) 5 mg PO Q4H PRN PRN Reason: Pain, Moderate(Pain Scale 4-6) Last Admin: 05/07/24 20:05 Dose: 5 mg Pharmacy Consult (Consult Rx Vancomycin Dosing) 1 each MISCELLANE DAILY PRN PRN Reason: Consult order Phenytoin Sodium (Phenytoin Sodium Extended 100 Mg Capsule) 100 mg PO TID [facility] Last Admin: 05/07/24 20:05 Dose: 100 mg Sertraline HCl (Sertraline Hcl 100 Mg Tablet) 100 mg PO DAILY [facility] Last Admin: 05/07/24 08:40 Dose: 100 mg Sodium Chloride (0.9 % Sodium Chloride Flush 3 Ml Syringe) 3 ml IVFLUSH QSHIFT [facility] Last Admin: 05/07/24 20:11 Dose: 3 ml Trazodone HCl (Trazodone Hcl 100 Mg Tablet) 100 mg PO BEDTIME PRN PRN Reason: Sleep Last Admin: 05/07/24 20:05 Dose: 100 mg Valproic Acid (Valproic Acid 250 Mg Capsule) 1,000 mg PO BID [facility] Last Admin: 05/07/24 20:04 Dose: 1,000 mg Vitamin D (Cholecalciferol (Vitamin D3) 25 Mcg Tablet) 50 mcg PO DAILY [facility] Last Admin: 05/07/24 08:40 Dose: 50 mcg Home Medications ?Medication ?Instructions ?Recorded ?Confirmed ?Last Taken ?Type blood sugar diagnostic (FreeStyle 03/28/20 09/09/22 Unknown History Lite Strips) blood-glucose meter (FreeStyle 03/28/20 09/09/22 Unknown History [place] Lite kit) lancets 28 gauge (FreeStyle 03/28/20 09/09/22 Unknown History Lancets) omeprazole 40 mg capsule,delayed 40 mg PO BID@0630,1630 10/02/21 05/04/24 03/21/24 History release blood pressure test kit-large #1 ea 10/12/21 09/09/22 Unknown History atorvastatin 80 mg tablet 80 mg PO DAILY 12/20/21 05/04/24 03/21/24 History nebulizers 01/20/22 09/09/22 Unknown History amlodipine 10 mg tablet 10 mg PO DAILY 05/29/22 05/04/24 03/21/24 History aspirin 81 mg tablet,delayed 81 mg PO DAILY 05/29/22 05/04/24 03/21/24 History release lancets 33 gauge (TRUEplus Lancets) #100 ea 06/07/22 09/09/22 Unknown History trazodone 50 mg tablet 100 mg PO BEDTIME PRN Sleep 06/07/22 05/04/24 10/26/23 History cholecalciferol (vitamin D3) 50 50 mcg PO DAILY 11/24/22 05/04/24 03/21/24 History mcg (2,000 unit) tablet ferrous gluconate 324 mg (38 mg 324 mg PO DAILY 11/24/22 05/04/24 03/21/24 History iron) tablet acetaminophen 650 mg 650 mg PO Q8H PRN mild pain 03/22/24 05/04/24 Unknown History tablet,extended release diclofenac sodium 1 % topical gel 2 g topical BEDTIME PRN Pain 03/22/24 05/04/24 03/21/24 History losartan 100 mg tablet 100 mg PO BID 03/22/24 05/04/24 03/21/24 History valproic acid 250 mg capsule 1,000 mg PO BID 03/22/24 05/04/24 03/21/24 History furosemide 40 mg tablet 80 mg PO BID 05/04/24 05/04/24 Unknown History gabapentin 100 mg capsule 200 mg PO DAILY 05/04/24 05/04/24 Unknown History gabapentin 300 mg capsule 300 mg PO MOWEFR@179905/04/24 05/04/24 Unknown History insulin glargine 100 unit/mL (3 30 unit subcut BEDTIME 05/04/24 05/04/24 Unknown History mL) subcutaneous pen (Basaglar David U-100 Insulin) levetiracetam 500 mg tablet 500 mg PO MOWEFR@1800 05/04/24 05/04/24 Unknown History lorazepam 0.5 mg tablet 0.5 mg PO DAILY PRN anxiety 05/04/24 05/04/24 Unknown History sertraline 50 mg tablet 100 mg PO DAILY 05/04/24 05/04/24 Unknown History Physical Exam 2 Vital Signs: Vital Signs: Last Vital Signs Temp 98.7 F 05/07/24 19:38 Pulse 86 05/07/24 19:38 Resp 18 05/07/24 19:38 BP 145/65 H 05/07/24 19:38 Pulse Ox 97 05/07/24 19:38 O2 Del Method Room Air 05/07/24 19:38 BMI result Body Mass Index 41.3 Const: General: cooperative HEENT: Head: Yes normal to inspection Face and sinus: Yes normal facial exam Mouth: Normal oral and palatal mucosa present Teeth and gingiva: d entition normal Eyes: General: appearance normal, both eyes and all related structures P upils: Equal, round and reactive pupils present Resp: Effort & Inspection: normal respiratory effort Cardio: Rate: regular rate Rhythm: regular rhythm GI: Palpation (GI): Soft to palpation and nontender : General: Yes no CVA tenderness Back/Spine/Pelvis: Back: no CVA tenderness Skin: General skin exam: no rashes or lesions noted Neuro: General: moves all extremities Cranial nerves: Yes Equal, round and reactive pupils present Extrem: Other: redness left foot Psych: Appearance: grossly normal Results Labs 05/08/24 06:21 05/08/24 06:21 Labs: Short CBC 05/07/24 Range/Units 12:51 WBC 14.8 H (4.8-10.8) X10*3/uL Hgb 7.7 L (12.0-16.0) g/dl Hct 22.6 L (37.0-47.0) % Plt Count TNP BMP 05/07/24 09:10 Sodium 139 Potassium 4.3 Chloride 103 Carbon Dioxide 23 BUN 54 H Creatinine 5.00 H* Calcium 7.8 L Microbiology Microbiology Results: Microbiology 05/04/24 08:26 Blood - Venous Blood Culture - Preliminary No growth after 48 hours. 05/04/24 08:25 Blood - Venous Blood Culture - Preliminary No growth after 48 hours. 05/04/24 15:12 Urine clean catch - Clean Catch Midstream Urine Culture - Final Assessment and Plan (1) Eschar of heel: Status: Acute (2) Cellulitis: Status: Acute Plan She has no complains except left foot failing to heal Finish six weeks IV antibiotics possible Ertapenem or Vancomycin cover OM,depends on cultures and Vancomycin or Daptomycin if MRSA.
[2024-05-08] VITALS (7 sets, daily range): BP systolic 82–188; BP diastolic 40–99; PULSE 83–97; RESP 14–19; TEMP 36.6–37.1; O2SAT 92–97
[2024-05-08] MEDS: Piperacillin Sodium/Tazobactam 2.25 GM in 0.9 % Sodium Chloride 50 ML IV ×2 (04:19→14:51)
[2024-05-08 04:49] LABS: Glucose, Whole Blood 193 mg/dL (60-115)
[2024-05-08 06:30] LABS: MANUAL DIFF FLAG NO
[2024-05-08] MEDS: Omeprazole 40 MG CAPSULE.DR PO ×2 (06:36→17:47)
[2024-05-08 06:38] LABS: Basophils Absolute Auto 0.1 X10*3/uL (0.0-0.2); Basophils Percent Auto 0.5 % (0-2); Eosinophils Absolute Auto 0.6 X10*3/uL (0.0-0.4); Hematocrit 24.7 % (37.0-47.0); Hemoglobin 7.9 g/dl (12.0-16.0); Imm Gran Abs Auto 0.37 X10*3/uL (0.00-0.03); Imm Gran Pct Auto 2.4 % (0.0-0.4); Lymphocytes Absolute Auto 1.3 X10*3/uL (1.2-4.9); Lymphocytes Percent Auto 8.4 % (20-40); Mean Corpuscular Hemoglobin 28.8 pg (27.0-33.0); Mean Corpuscular Volume 90.1 fL (80.0-98.0); Monocytes Percent Auto 6.7 % (2-11); Neutrophils Absolute Auto 11.9 x10*3/uL (2.0-8.3); Red Blood Count 2.74 X10*6/uL (4.20-5.50); Red Cell Distribution Width 23.1 % (11.0-16.0); White Blood Count 15.3 X10*3/uL (4.8-10.8)
[2024-05-08 06:46] LABS: Lactic Acid 1.2 mmol/L (0.5-2.0)
[2024-05-08 06:55] LABS: Anion Gap 20 (12-20); Blood Urea Nitrogen 63 mg/dL (9-16); C Reactive Protein 40.77 mg/dL (< or = 0.50); Carbon Dioxide 21 mmol/L (22-29); Chloride 102 mmol/L (96-108); Creatinine Clr Calc Pharmacy 11.1; Estimated Glomerular Filt Rate 8; Glucose Random 163 mg/dL (60-115); Magnesium 1.9 mg/dL (1.6-2.6); Phosphorus 6.3 mg/dL (2.7-4.5); Potassium 4.8 mmol/L (3.3-5.1); Sodium 138 mmol/L (135-145)
[2024-05-08 07:23] LABS: Valproate 28.1 mcg/mL (50.0-100.0)
[2024-05-08 07:32] LABS: Phenytoin Dilantin 2.5 ug/mL (10.0-20.0)
[2024-05-08 08:23] LABS: Glucose, Whole Blood 145 mg/dL (60-115)
[2024-05-08] MEDS: Atorvastatin Calcium 80 MG TABLET PO (08:53)
[2024-05-08] MEDS: Valproic Acid 250 MG CAPSULE 1000 MG PO ×2 (08:53→22:27)
[2024-05-08] MEDS: Furosemide 40 MG TABLET 80 MG PO (08:54)
[2024-05-08] MEDS: Phenytoin Sodium 500 MG in 0.9 % Sodium Chloride 100 ML 100 MG IV (08:54)
[2024-05-08] MEDS: Ferrous Sulfate 324 MG TABLET.DR PO (08:54)
[2024-05-08] MEDS: Folic Acid 1 MG TABLET PO (08:54)
[2024-05-08] MEDS: Cholecalciferol (Vitamin D3) 25 MCG TABLET 50 MCG PO (08:54)
[2024-05-08] MEDS: Gabapentin 100 MG CAPSULE 200 MG PO (08:54)
[2024-05-08] MEDS: 0.9 % Sodium Chloride Flush 3 ML SYRINGE IVFLUSH (08:55)
[2024-05-08] MEDS: Sertraline HCL 100 MG TABLET PO (08:56)
--- NOTE | 2024-05-08 09:00 | P.CDIM_ITS ---
PROVIDER RESPONSE TEXT: To clarify, the appropriate diagnosis supported by the clinical indicators: Diabetic ulcer left heel: full thickness of skin and subcutaneous fat QUERY TEXT: PHYSICIAN'S DOCUMENTATION REQUEST Date of Query: 05/08/2024 06:48 AM EDT Patient Name: Lori Land Admit Date: 05/04/2024 Dear Jeffry Vines MD, A review of the medical record indicates additional documentation may be needed. Please review below and update the documentation accordingly. Clinical Indicators: Per General Surgery Progress note 05/07/24: thick eschar left heel with redness surrounding tis planned for excisional debridement Based on the above, could you please provide further information regarding the type and stage of the ulcer/wound: Diabetic ulcer left heel Please specify depth/stage of the ulcer/wound Venous stasis ulcer Please specify the location and laterality of the ulcer/wound Arterial (ischemic) ulcer Please specify the depth/stage of the ulcer/wound Pressure (decubitus) ulcer Please include the stage of the ulcer Traumatic wound Please specify the depth/stage of the ulcer/wound Other (explain) Clinically unable to determine (explain) Thank you, Rozina Herrera RN Use of terms such as suspected, likely, concern for, or probable (associated with a specific diagnosi s that is being evaluated, monitored, or treated as if it exists) are acceptable and can be coded in the inpatient se tting, when documented at the time of discharge. Please use your independent medical judgment in providing your response. THIS QUERY IS PART OF THE PERMANENT MEDICAL RECORD
--- NOTE | 2024-05-08 13:11 | HO.PM.IMPN ---
Subjective Subjective Date of Service: 05/08/24 Interval History: No new complaints. Review of Systems All 12 systems were reviewed and normal except as noted in HPI. Physical Exam Vital Signs: Vital Signs: Last Vital Signs Temp 98.7 F 05/08/24 08:00 Pulse 94 05/08/24 08:00 Resp 18 05/08/24 08:00 BP 188/81 H 05/08/24 08:00 Pulse Ox 96 05/08/24 08:00 O2 Del Method Room Air 05/08/24 08:00 BMI result Body Mass Index 41.3 Constitutional - Awake, somewhat lethargic. Looks uncomfortable due to pain. Obese. Cooperative. HEENT - PERRL, EOMI. Dry oral mucosa. Heart - S1S2, RRR, No murmurs Lungs - Normal lung expansion, Normal respiratory effort, No respiratory distress, CTA bilaterally Abdomen - NT / ND; +BS; No rebound or guarding Extremities - Right foot/heel eschar noted. Left foot: Dressing in place and clean. Skin - Warm/Dry Neurological - Alert & oriented x3. No focal weakness grossly noted. No focal weakness grossly noted. Psychological - Depressed affect Objective Data Active Medications Acetaminophen (Acetaminophen 325 Mg Tablet) 650 mg PO Q6H PRN PRN Reason: Pain, Mild 1-3,fever,headache Last Admin: 05/07/24 16:29 Dose: 650 mg Documented By: NIGHAT Atorvastatin Calcium (Atorvastatin Calcium 80 Mg Tablet) 80 mg PO DAILY ON LICENSE OF [facility] Last Admin: 05/08/24 08:53 Dose: 80 mg Documented By: JAROCHO Calcium Carbonate (Calcium Carbonate 750 Mg Tab.Chew) 750 mg PO Q4H PRN PRN Reason: Heartburn Dextrose (Dextrose 50 % 25 Gm/50 Ml Syringe) 25 gm IVPUSH Q15M PRN; Protocol PRN Reason: per Hypoglycemia Standing Ord. Ferrous Sulfate (Ferrous Sulfate 324 Mg Tablet.) 324 mg PO DAILY ON LICENSE OF [facility] Last Admin: 05/08/24 08:54 Dose: 324 mg Documented By: JAROCHO Folic Acid (Folic Acid 1 Mg Tablet) 1 mg PO DAILY ON LICENSE OF [facility] Last Admin: 05/08/24 08:54 Dose: 1 mg Documented By: JAROCHO Furosemide (Furosemide 40 Mg Tablet) 80 mg PO BID ON LICENSE OF [facility]; Protocol Last Admin: 05/08/24 08:54 Dose: 80 mg Documented By: JAROCHO Gabapentin (Gabapentin 100 Mg Capsule) 200 mg PO DAILY ON LICENSE OF [facility] Last Admin: 05/08/24 08:54 Dose: 200 mg Documented By: JAROCHO Gabapentin (Gabapentin 300 Mg Capsule) 300 mg PO MOWEFR@1800 ON LICENSE OF [facility] Last Admin: 05/06/24 17:45 Dose: 300 mg Documented By: NIGHAT Glucose (Glucose Gel 15 Gm Gel..Gram.) 15 gm PO Q15M PRN; Protocol PRN Reason: per Hypoglycemia Standing Ord. Vancomycin HCl 500 mg/ Sodium (Chloride) 110 mls @ 110 mls/hr IV ONCE ONE Stop: 05/04/24 13:44 Piperacillin Sod/Tazobactam (Sod 2.25 gm/ Sodium Chloride) 50 mls @ 100 mls/hr IV Q12H ON LICENSE OF [facility] Last Infusion: 05/08/24 04:49 Dose: Infused Documented By: DOUGLAS Insulin Glargine (Insulin Glargine,Hum.Rec.Anlog 100 Unit/Ml 10 Ml Vial) 21 unit SUBCUT BEDTIME ON LICENSE OF [facility] Last Admin: 05/04/24 20:38 Dose: 21 unit Documented By: FAHAD Insulin Human Lispro (Insulin Lispro 100 Unit/Ml 3 Ml Vial) 0 unit SUBCUT QIDACHS ON LICENSE OF [facility]; Protocol Last Admin: 05/08/24 08:55 Dose: Not Given Documented By: JAROCHO Non-Admin Reason: No Insulin Coverage Levetiracetam (Levetiracetam 500 Mg Tablet) 500 mg PO MOWEFR@1800 ON LICENSE OF [facility] Last Admin: 05/06/24 17:44 Dose: 500 mg Documented By: NIGHAT Lorazepam (Lorazepam 0.5 Mg Tablet) 0.5 mg PO DAILY PRN PRN Reason: anxiety Last Admin: 05/06/24 09:21 Dose: 0.5 mg Documented By: NIGHAT Magnesium Hydroxide (Milk Of Magnesia 30 Ml Oral.Susp) 30 ml PO DAILY PRN PRN Reason: Constipation Melatonin (Melatonin 3 Mg Tablet) 6 mg PO BEDTIME PRN PRN Reason: Insomnia Last Admin: 05/07/24 02:27 Dose: 6 mg Documented By: CONSTANTIN Omeprazole (Omeprazole 40 Mg Capsule.) 40 mg PO BID@0630,1630 ON LICENSE OF [facility] Last Admin: 05/08/24 06:36 Dose: 40 mg Documented By: DOUGLAS Oxycodone HCl (Oxycodone Hcl Immed Release 5 Mg Tablet) 5 mg PO Q4H PRN PRN Reason: Pain, Moderate(Pain Scale 4-6) Last Admin: 05/07/24 20:05 Dose: 5 mg Documented By: DOUGLAS Pharmacy Consult (Consult Rx Vancomycin Dosing) 1 each MISCELLANE DAILY PRN PRN Reason: Consult order Phenytoin Sodium (Phenytoin Sodium Extended 100 Mg Capsule) 100 mg PO TID ON LICENSE OF [facility] Last Admin: 05/08/24 09:06 Dose: Not Given Documented By: JAROCHO Non-Admin Reason: Physician Held Med Sertraline HCl (Sertraline Hcl 100 Mg Tablet) 100 mg PO DAILY ON LICENSE OF [facility] Last Admin: 05/08/24 08:56 Dose: 100 mg Documented By: JAROCHO Sodium Chloride (0.9 % Sodium Chloride Flush 3 Ml Syringe) 3 ml IVFLUSH QSHIFT ON LICENSE OF [facility] Last Admin: 05/08/24 08:55 Dose: 3 ml Documented By: JAROCHO Trazodone HCl (Trazodone Hcl 100 Mg Tablet) 100 mg PO BEDTIME PRN PRN Reason: Sleep Last Admin: 05/07/24 20:05 Dose: 100 mg Documented By: DOUGLAS Valproic Acid (Valproic Acid 250 Mg Capsule) 1,000 mg PO BID ON LICENSE OF [facility] Last Admin: 05/08/24 08:53 Dose: 1,000 mg Documented By: JAROCHO Vitamin D (Cholecalciferol (Vitamin D3) 25 Mcg Tablet) 50 mcg PO DAILY ON LICENSE OF [facility] Last Admin: 05/08/24 08:54 Dose: 50 mcg Documented By: JAROCHO Labs 05/08/24 06:21 05/08/24 06:21 Labs: Laboratory Results - last 24 hr 05/07/24 05/07/24 05/07/24 12:51 15:53 20:05 MCV 86.3 MCH 29.4 MCHC 34.1 RDW 23.1 H Plt Count TNP MPV TNP Immature Gran % (Auto) 2.4 H Neut % (Auto) 75.8 H Lymph % (Auto) 9.6 L Starke % (Auto) 7.4 Eos % (Auto) 4.3 H Baso % (Auto) 0.5 Lymph # (Auto) 1.4 Starke # (Auto) 1.1 Eos # (Auto) 0.6 H Baso # (Auto) 0.1 Abs Immat Gran (auto) 0.35 H Absolute Neuts (auto) 11.2 H Absolute Nucleated RBC 0.000 Nucleated RBC % (auto) 0.0 Smear Tech's Comments VERIFIED Anion Gap Estim Creat Clear Calc Estimated GFR POC Glucose 157 H 193 H Random Glucose Lactic Acid 1.3 Calcium Phosphorus Magnesium C-Reactive Protein Phenytoin Valproic Acid 05/08/24 05/08/24 06:21 08:03 MCV 90.1 MCH 28.8 MCHC 32.0 RDW 23.1 H Plt Count TNP MPV TNP Immature Gran % (Auto) 2.4 H Neut % (Auto) 78.0 H Lymph % (Auto) 8.4 L Starke % (Auto) 6.7 Eos % (Auto) 4.0 Baso % (Auto) 0.5 Lymph # (Auto) 1.3 Starke # (Auto) 1.0 Eos # (Auto) 0.6 H Baso # (Auto) 0.1 Abs Immat Gran (auto) 0.37 H Absolute Neuts (auto) 11.9 H Absolute Nucleated RBC 0.000 Nucleated RBC % (auto) 0.0 Smear Tech's Comments Anion Gap 20 Estim Creat Clear Calc 11.1 Estimated GFR 8 POC Glucose 145 H Random Glucose 163 H Lactic Acid 1.2 Calcium 8.0 L Phosphorus 6.3 H Magnesium 1.9 C-Reactive Protein 40.77 H Phenytoin 2.5 L* Valproic Acid 28.1 L Microbiology Microbiology Results: Microbiology 05/07/24 20:30 Urine Culture - Preliminary Urine clean catch Culture too young to evaluate. Assessment and Plan (1) Eschar of heel: Status: Acute (2) Cellulitis: Status: Acute (3) Fall: Status: Acute (4) Acute subdural hematoma: Status: Acute Plan Lori Reid is a 68-year-old woman admitted with: Subdural hematoma:CT small right parafalcine subdural hematoma up to 4 mm in thickness; traumatic; repeat CT 6 hours later stable S/p fall at home with head strike on table; no LOC; neuro exam intact; pt AO x3; GCS 15 ED contacted Neurosurgery at [facility] - no interventions needed. Hold aspirin. Check hip x-ray-Faint lucency along the right inferior pubic ramus seen only on one view and possibly artifactual -pelvic ct-does not show any fracture. PT consult-Monitor mentation. Left foot cellulitis with sepsis +left heel escar. 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 Continue to monitor WBCs and lactic acid. ESR/CRP elevated, rechecked tomorrow Continue vancomycin and Zosyn, started 05/04/2024 General surgery - excisional debridement possibly tomorrow Acute on chronic anemia of chronic disease Hgb yesterday 7.9 (s/p PRBCs transfusions). Continue to monitor H&H Will transfuse as needed. Question of community-acquired pneumonia Denies symptoms. Denies shortness on breath. Oxygen saturation is 96 on room air. ua also has pyuria /bacteruria CXR showed probable right lower lobe pneumonia Continue IV antibiotic therapy with Zosyn and vancomycin. ESRD on HD M/W/F: Evaluated by Nephrology today - patient will need replacement of hemodialysis catheter due to poor functionality (IR consult placed). Follow BMP, phosphorus and magnesium Type 2 diabetes mellitus Sliding-scale insulin, Lantus Diabetic diet Seizure disorder No recent episodes of seizures. Continue levetiracetam, valproate, and phenytoin. Phenytoin level persists low. Will order loading dose. HTN Restart amlodipine. Labetalol IV as needed. Mood disorder Continue sertraline, lorazepam Hyperlipidemia Continue atorvastatin Full Code DVT Prophylaxis: Pneumatic compression (subdural hematoma) Patient continuous to require inpatient treatment for further evaluation of multiple issues, including subdural hematoma s/p fall at home, and generalized weakness with fall at home in the setting of acute on chronic anemia, cellulitis with sepsis, left heel eschar requiring debridement by surgery Quality Stroke Does the patient have a stroke diagnosis?: No VTE Prior VTE?: No VTE Risk Level:: Medical - moderate - high VTE Device Contraindication: N/A - Device Ordered VTE Drug Contraindication: Treatment Not Indicated
[2024-05-08] MEDS: oxyCODONE HCl Immed Release 5 MG TABLET PO (14:51)
[2024-05-08] MEDS: Phenytoin Sodium Extended 100 MG CAPSULE PO ×2 (14:51→22:27)
--- NOTE | 2024-05-08 15:03 | P.PNGS_ITS ---
Subjective Subjective Date of Service: 05/09/24 Interval history: No new events She is to undergo dialysis today Physical Exam 2 Vital Signs: Vital Signs: Last Vital Signs Temp 98.7 F 05/08/24 08:00 Pulse 94 05/08/24 08:00 Resp 18 05/08/24 08:00 BP 188/81 H 05/08/24 08:00 Pulse Ox 96 05/08/24 08:00 O2 Del Method Room Air 05/08/24 08:00 BMI result Body Mass Index 41.3 Const: Other: Mildly short of breath Resp: Other: Mildly short of breath Extrem: Other: Eschar on right heel Multiple other small scabbing areas on the left leg as well Objective Data Active Medications Acetaminophen (Acetaminophen 325 Mg Tablet) 650 mg PO Q6H PRN PRN Reason: Pain, Mild 1-3,fever,headache Last Admin: 05/07/24 16:29 Dose: 650 mg Documented By: NIGHAT Atorvastatin Calcium (Atorvastatin Calcium 80 Mg Tablet) 80 mg PO DAILY [facility] Last Admin: 05/08/24 08:53 Dose: 80 mg Documented By: JAROCHO Calcium Carbonate (Calcium Carbonate 750 Mg Tab.Chew) 750 mg PO Q4H PRN PRN Reason: Heartburn Dextrose (Dextrose 50 % 25 Gm/50 Ml Syringe) 25 gm IVPUSH Q15M PRN; Protocol PRN Reason: per Hypoglycemia Standing Ord. Ferrous Sulfate (Ferrous Sulfate 324 Mg Tablet.Dr) 324 mg PO DAILY [facility] Last Admin: 05/08/24 08:54 Dose: 324 mg Documented By: JAROCHO Folic Acid (Folic Acid 1 Mg Tablet) 1 mg PO DAILY [facility] Last Admin: 05/08/24 08:54 Dose: 1 mg Documented By: JAROCHO Furosemide (Furosemide 40 Mg Tablet) 80 mg PO BID [facility]; Protocol Last Admin: 05/08/24 08:54 Dose: 80 mg Documented By: JAROCHO Gabapentin (Gabapentin 100 Mg Capsule) 200 mg PO DAILY [facility] Last Admin: 05/08/24 08:54 Dose: 200 mg Documented By: JAROCHO Gabapentin (Gabapentin 300 Mg Capsule) 300 mg PO MOWEFR@1800 [facility] Last Admin: 05/06/24 17:45 Dose: 300 mg Documented By: NIGHAT Glucose (Glucose Gel 15 Gm Gel..Gram.) 15 gm PO Q15M PRN; Protocol PRN Reason: per Hypoglycemia Standing Ord. Vancomycin HCl 500 mg/ Sodium (Chloride) 110 mls @ 110 mls/hr IV ONCE ONE Stop: 05/04/24 13:44 Piperacillin Sod/Tazobactam (Sod 2.25 gm/ Sodium Chloride) 50 mls @ 100 mls/hr IV Q12H [facility] Last Admin: 05/08/24 14:51 Dose: 100 mls/hr Documented By: JAROCHO Insulin Glargine (Insulin Glargine,Hum.Rec.Anlog 100 Unit/Ml 10 Ml Vial) 21 unit SUBCUT BEDTIME [facility] Last Admin: 05/04/24 20:38 Dose: 21 unit Documented By: JANNYTOATTILA Insulin Human Lispro (Insulin Lispro 100 Unit/Ml 3 Ml Vial) 0 unit SUBCUT QIDACHS [facility]; Protocol Last Admin: 05/08/24 13:43 Dose: Not Given Documented By: JAROCHO Non-Admin Reason: Off unit: Dialysis Labetalol HCl (Labetalol Hcl 100 Mg/20 Ml Vial) 5 mg IVPUSH ONCE PRN PRN Reason: SBP > 160 Levetiracetam (Levetiracetam 500 Mg Tablet) 500 mg PO MOWEFR@1800 [facility] Last Admin: 05/06/24 17:44 Dose: 500 mg Documented By: NIGHAT Lorazepam (Lorazepam 0.5 Mg Tablet) 0.5 mg PO DAILY PRN PRN Reason: anxiety Last Admin: 05/06/24 09:21 Dose: 0.5 mg Documented By: NIGHAT Magnesium Hydroxide (Milk Of Magnesia 30 Ml Oral.Susp) 30 ml PO DAILY PRN PRN Reason: Constipation Melatonin (Melatonin 3 Mg Tablet) 6 mg PO BEDTIME PRN PRN Reason: Insomnia Last Admin: 05/07/24 02:27 Dose: 6 mg Documented By: CONSTANTIN Omeprazole (Omeprazole 40 Mg Capsule.) 40 mg PO BID@0630,1630 [facility] Last Admin: 05/08/24 06:36 Dose: 40 mg Documented By: DOUGLAS Oxycodone HCl (Oxycodone Hcl Immed Release 5 Mg Tablet) 5 mg PO Q4H PRN PRN Reason: Pain, Moderate(Pain Scale 4-6) Last Admin: 05/08/24 14:51 Dose: 5 mg Documented By: JAROCHO Pharmacy Consult (Consult Rx Vancomycin Dosing) 1 each MISCELLANE DAILY PRN PRN Reason: Consult order Phenytoin Sodium (Phenytoin Sodium Extended 100 Mg Capsule) 100 mg PO TID [facility] Last Admin: 05/08/24 14:51 Dose: 100 mg Documented By: JAROCHO Sertraline HCl (Sertraline Hcl 100 Mg Tablet) 100 mg PO DAILY [facility] Last Admin: 05/08/24 08:56 Dose: 100 mg Documented By: JAROCHO Sodium Chloride (0.9 % Sodium Chloride Flush 3 Ml Syringe) 3 ml IVFLUSH QSHIFT [facility] Last Admin: 05/08/24 08:55 Dose: 3 ml Documented By: JAROCHO Trazodone HCl (Trazodone Hcl 100 Mg Tablet) 100 mg PO BEDTIME PRN PRN Reason: Sleep Last Admin: 05/07/24 20:05 Dose: 100 mg Documented By: DOUGLAS Valproic Acid (Valproic Acid 250 Mg Capsule) 1,000 mg PO BID [facility] Last Admin: 05/08/24 08:53 Dose: 1,000 mg Documented By: JAROCHO Vitamin D (Cholecalciferol (Vitamin D3) 25 Mcg Tablet) 50 mcg PO DAILY [facility] Last Admin: 05/08/24 08:54 Dose: 50 mcg Documented By: JAROCHO Labs 05/08/24 06:21 05/08/24 06:21 Labs: Laboratory Results - last 24 hr 05/07/24 05/07/24 05/08/24 15:53 20:05 06:21 MCV 90.1 MCH 28.8 MCHC 32.0 RDW 23.1 H Plt Count TNP MPV TNP Immature Gran % (Auto) 2.4 H Neut % (Auto) 78.0 H Lymph % (Auto) 8.4 L Kings % (Auto) 6.7 Eos % (Auto) 4.0 Baso % (Auto) 0.5 Lymph # (Auto) 1.3 Kings # (Auto) 1.0 Eos # (Auto) 0.6 H Baso # (Auto) 0.1 Abs Immat Gran (auto) 0.37 H Absolute Neuts (auto) 11.9 H Absolute Nucleated RBC 0.000 Nucleated RBC % (auto) 0.0 Anion Gap 20 Estim Creat Clear Calc 11.1 Estimated GFR 8 POC Glucose 157 H 193 H Random Glucose 163 H Lactic Acid 1.2 Calcium 8.0 L Phosphorus 6.3 H Magnesium 1.9 C-Reactive Protein 40.77 H Phenytoin 2.5 L* Valproic Acid 28.1 L 05/08/24 08:03 MCV MCH MCHC RDW Plt Count MPV Immature Gran % (Auto) Neut % (Auto) Lymph % (Auto) Kings % (Auto) Eos % (Auto) Baso % (Auto) Lymph # (Auto) Kings # (Auto) Eos # (Auto) Baso # (Auto) Abs Immat Gran (auto) Absolute Neuts (auto) Absolute Nucleated RBC Nucleated RBC % (auto) Anion Gap Estim Creat Clear Calc Estimated GFR POC Glucose 145 H Random Glucose Lactic Acid Calcium Phosphorus Magnesium C-Reactive Protein Phenytoin Valproic Acid Microbiology Microbiology Results: Microbiology 05/07/24 20:30 Urine Culture - Preliminary Urine clean catch Culture too young to evaluate. Procedures Date of Service Date of Service: 05/09/24 Progress Note: A&P Assessment and plan (1) Eschar of heel: Status: Acute Assessment and Plan: Thick eschar Plan for debridement tomorrow the right heel Possible biopsies of other ulcers/scabs I will discuss this with her family Time Spent With Patient Time: Total time managing care of this patient today ____ minutes. Quality Stroke Does the patient have a stroke diagnosis?: No VTE Prior VTE?: No VTE Risk Level:: Medical - moderate - high VTE Device Contraindication: N/A - Device Ordered VTE Drug Contraindication: Treatment Not Indicated
--- NOTE | 2024-05-08 15:45 | MHC.CM.PN ---
EMR reviewed and per MD rounds, pt is not medically cleared for discharge at this time. DCP: Dionte ADAIR is first choice and following.
[2024-05-08] MEDS: levETIRAcetam 500 MG TABLET PO (17:47)
[2024-05-08] MEDS: Insulin Lispro 100 UNIT/ML 3 ML VIAL SUBCUT (17:48)
[2024-05-08] MEDS: Gabapentin 300 MG CAPSULE PO (17:48)
[2024-05-08 19:24] LABS: Vancomycin Random 11.2 mcg/mL (15-20)
[2024-05-08] MEDS: 0.9 % Sodium Chloride 250 ML 999 ML IV (21:50)
--- NOTE | 2024-05-08 21:54 | PM.EVENT ---
Event Note Date of Service: 05/08/24 Event Note: Rapid response note: Around 21:50 rapid response was called in by RN mentioning patient was lethargic and hard to wake up, was sternal rubbing. Blood pressure was 84/48. Blood glucose was 132. Patient has had dialysis today. By the time I went to the room patient was alert awake, answering questions appropriately neurological exam is benign. Ordered for 250 cc normal saline bolus. Will also obtain CT head. Neuro checks. Time Spent With Patient Time: Total time managing care of this patient today ____ minutes.
[2024-05-08] MEDS: vancomycin HCL 500 MG in 0.9 % Sodium Chloride 100 ML 110 MG IV (22:41)
[2024-05-08] MEDS: Acetaminophen 325 MG TABLET 650 MG PO (22:48)
[2024-05-09] VITALS (18 sets, daily range): BP systolic 101–162; BP diastolic 34–112; PULSE 75–92; RESP 10–18; TEMP 36.3–37; O2SAT 96–100
--- NOTE | 2024-05-09 00:21 | PC.NURSE ---
Assumed care of this patient at 19:00. Wolof speaking, doweler used at bedside. On initial interaction, the patient was drowsy though appropriately arousable to voice, A&Ox4. +Perrla, brisk with conjugate gaze. Moving extremities equally. Face and smile were symmetrical and tongue midline. Speech clear. 21:00 hour, this procedure writer attempted to medicate this patient with scheduled evening meds when the patient was noted to be lethargic, unresponsive to verbal stimuli and touch. Sternal rub/painful stimuli was required to wake the patient. The patient would wake in response to this and speak few words though kept falling back asleep quickly while attempting to reassess. Breathing was even and unlabored without distress. NSR 80-90's on tele with +distal pulses present. Rapid response was called with covering Dr. Arturo Jean-Baptiste and nursing supervisor tumblers to bedside. On review, vitals that had been obtained during the 20:00 hour were stable, afebrile. POC 20:00 hour reported to procedure writer by CLARISSE was 158. Repeat vitals and POC were obtained by this procedure writer. POC at ~21:35 was 132. Of note, patient received HD with last treatment earlier during the day (05/08), BP limited to LUE only. Cuff BP on dynamap machine was unable to register and a manual BP on LUE was obtained by this procedure writer = 82/40. Provider order for 250ml bolus of NS was given. Patient was transported at 22:00 with bolus infusing by the nursing supervisor tumblers to the MD ordered stat head CT to reassess SDH. On the patient's return to the unit at 22:27 bolus was noted to have finished and BP reassessment was obtained = 106/56. The patient's mentation was improved to procedure writer's initial A&Ox4 assessment, arousable to name/staff entering room. MD was notified of recheck BP with written order to hold scheduled po lasix. Remaining scheduled medications administered as pt was now safely able to take them. Tolerated without issue. Bed alarm on and safety measures including camera in place. Handoff report given to oncoming RN at 23:15.
[2024-05-09] MEDS: Piperacillin Sodium/Tazobactam 2.25 GM in 0.9 % Sodium Chloride 50 ML IV ×2 (01:38→13:50)
[2024-05-09] MEDS: 0.9 % Sodium Chloride Flush 3 ML SYRINGE IVFLUSH ×2 (01:40→08:36)
[2024-05-09 04:22] LABS: Glucose, Whole Blood 132 mg/dL (60-115)
[2024-05-09 04:22] LABS: Glucose, Whole Blood 232 mg/dL (60-115)
[2024-05-09 04:22] LABS: Glucose, Whole Blood 158 mg/dL (60-115)
[2024-05-09 08:10] LABS: Glucose, Whole Blood 144 mg/dL (60-115)
[2024-05-09] MEDS: Furosemide 40 MG TABLET 80 MG PO ×2 (08:36→21:28)
[2024-05-09] MEDS: Ferrous Sulfate 324 MG TABLET.DR PO (08:37)
[2024-05-09] MEDS: Atorvastatin Calcium 80 MG TABLET PO (08:37)
[2024-05-09] MEDS: Sertraline HCL 100 MG TABLET PO (08:37)
[2024-05-09] MEDS: Valproic Acid 250 MG CAPSULE 1000 MG PO ×2 (08:37→21:28)
[2024-05-09] MEDS: Cholecalciferol (Vitamin D3) 25 MCG TABLET 50 MCG PO (08:37)
[2024-05-09] MEDS: Gabapentin 100 MG CAPSULE 200 MG PO (08:37)
[2024-05-09] MEDS: Phenytoin Sodium Extended 100 MG CAPSULE PO ×3 (08:37→21:28)
[2024-05-09] MEDS: Folic Acid 1 MG TABLET PO (08:37)
[2024-05-09] MEDS: oxyCODONE HCl Immed Release 5 MG TABLET PO ×2 (08:40→13:51)
[2024-05-09 08:51] LABS: Venous Blood Gas Refer to POC result
[2024-05-09 08:54] LABS: Basophils Absolute Auto 0.1 X10*3/uL (0.0-0.2); Basophils Percent Auto 0.6 % (0-2); Eosinophils Absolute Auto 0.5 X10*3/uL (0.0-0.4); Eosinophils Percent Auto 3.6 % (0-4); Hematocrit 22.5 % (37.0-47.0); Hemoglobin 7.7 g/dl (12.0-16.0); Imm Gran Abs Auto 0.55 X10*3/uL (0.00-0.03); Imm Gran Pct Auto 3.9 % (0.0-0.4); Lymphocytes Absolute Auto 1.2 X10*3/uL (1.2-4.9); Lymphocytes Percent Auto 8.5 % (20-40); Mean Corpuscular HGB Conc 34.2 g/dl (31.0-35.0); Mean Corpuscular Hemoglobin 29.8 pg (27.0-33.0); Mean Corpuscular Volume 87.2 fL (80.0-98.0); Monocytes Percent Auto 7.1 % (2-11); Neutrophils Absolute Auto 10.7 x10*3/uL (2.0-8.3); Neutrophils Percent Auto 76.3 % (45-73); Red Blood Count 2.58 X10*6/uL (4.20-5.50); Red Cell Distribution Width 22.6 % (11.0-16.0); White Blood Count 14.1 X10*3/uL (4.8-10.8)
[2024-05-09 08:55] LABS: INTERNATIONAL NORM RATIO 1.1 (0.9-1.1); MANUAL DIFF FLAG SCAN; Prothrombin Time 12.4 SEC (10.9-12.4)
[2024-05-09 09:04] LABS: VBG Base Excess 4.4 mmol/L; VBG HCO3 28 mmol/L (22-26); VBG pCO2 38 mmHg; VBG pH 7.47 (7.32-7.43); VBG pO2 78 mmHg
[2024-05-09 09:04] LABS: Anion Gap 14 (12-20); Blood Urea Nitrogen 44 mg/dL (9-16); Calcium 7.9 mg/dL (8.4-10.2); Carbon Dioxide 25 mmol/L (22-29); Chloride 104 mmol/L (96-108); Estimated Glomerular Filt Rate 11; Glucose Random 141 mg/dL (60-115); Magnesium 1.8 mg/dL (1.6-2.6); Phosphorus 4.9 mg/dL (2.7-4.5); Potassium 4.2 mmol/L (3.3-5.1); Sodium 139 mmol/L (135-145)
[2024-05-09 09:55] LABS: SLIDE REVIEW VERIFIED
--- NOTE | 2024-05-09 10:23 | P.PNNP_ITS ---
Subjective Subjective Date of Service: 05/08/24 Interval history: Seen adn examined during HD Pcath func poorly Physical Exam 2 Vital Signs: Vital Signs: Last Vital Signs Temp 97.3 F 05/09/24 07:04 Pulse 75 05/09/24 07:04 Resp 18 05/09/24 07:04 BP 138/62 05/09/24 08:36 Pulse Ox 96 05/09/24 07:04 O2 Del Method Room Air 05/09/24 07:04 BMI result Body Mass Index 41.3 Const: General: no acute distress Nutritional Appearance: well nourished Resp: Effort & Inspection: normal respiratory effort, no audible wheezes, no cough and no respiratory distress GI: Inspection: Yes normal to inspection Neuro: Other: She is little bit drowsy but able to communicate answer questions and follow commands. Face is symmetrical. Visual lambert are full. There is no focal arm or leg weakness. Plantars are flexor. Deep tendon reflexes are absent in chronic sign of neuropathy are noted in feet. 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 Incision is noted to be open with some surrounding callus formation. No purulence discharge was identified. Slight erythema is noted in the surrounding skin. Objective Data Labs 05/09/24 08:34 05/09/24 08:34 Labs: Laboratory Results - last 24 hr 05/08/24 05/08/24 05/08/24 17:06 19:02 20:25 WBC RBC Hgb Hct MCV MCH MCHC RDW Plt Count MPV Immature Gran % (Auto) Neut % (Auto) Lymph % (Auto) [place] % (Auto) Eos % (Auto) Baso % (Auto) Lymph # (Auto) [place] # (Auto) Eos # (Auto) Baso # (Auto) Abs Immat Gran (auto) Absolute Neuts (auto) Absolute Nucleated RBC Nucleated RBC % (auto) Smear Tech's Comments PT INR VBG pH VBG pCO2 VBG pO2 VBG HCO3 VBG O2 Saturation VBG Base Excess Sodium Potassium Chloride Carbon Dioxide Anion Gap BUN Creatinine Estim Creat Clear Calc Estimated GFR POC Glucose 232 H 158 H Random Glucose Calcium Phosphorus Magnesium Random Vancomycin 11.2 L 05/08/24 05/09/24 05/09/24 21:35 07:10 08:34 WBC Cancelled RBC Hgb Hct MCV MCH MCHC RDW Plt Count MPV Immature Gran % (Auto) Neut % (Auto) Lymph % (Auto) [place] % (Auto) Eos % (Auto) Baso % (Auto) Lymph # (Auto) [place] # (Auto) Eos # (Auto) Baso # (Auto) Abs Immat Gran (auto) Absolute Neuts (auto) Absolute Nucleated RBC Nucleated RBC % (auto) Smear Tech's Comments PT INR VBG pH VBG pCO2 VBG pO2 VBG HCO3 VBG O2 Saturation VBG Base Excess Sodium Potassium Chloride Carbon Dioxide Anion Gap BUN Creatinine Estim Creat Clear Calc Estimated GFR POC Glucose 132 H 144 H Random Glucose Calcium Phosphorus Magnesium Random Vancomycin 05/09/24 05/09/24 05/09/24 08:34 08:34 08:34 WBC 14.1 H RBC Cancelled 2.58 L Hgb Cancelled 7.7 L Hct Cancelled MCV MCH MCHC RDW Plt Count MPV Immature Gran % (Auto) Neut % (Auto) Lymph % (Auto) [place] % (Auto) Eos % (Auto) Baso % (Auto) Lymph # (Auto) [place] # (Auto) Eos # (Auto) Baso # (Auto) Abs Immat Gran (auto) Absolute Neuts (auto) Absolute Nucleated RBC Nucleated RBC % (auto) Smear Tech's Comments PT INR VBG pH VBG pCO2 VBG pO2 VBG HCO3 VBG O2 Saturation VBG Base Excess Sodium Potassium Chloride Carbon Dioxide Anion Gap BUN Creatinine Estim Creat Clear Calc Estimated GFR POC Glucose Random Glucose Calcium Phosphorus Magnesium Random Vancomycin 05/09/24 05/09/24 05/09/24 08:34 08:34 08:34 WBC RBC Hgb Hct 22.5 L MCV Cancelled 87.2 MCH Cancelled 29.8 MCHC Cancelled RDW Plt Count MPV Immature Gran % (Auto) Neut % (Auto) Lymph % (Auto) [place] % (Auto) Eos % (Auto) Baso % (Auto) Lymph # (Auto) [place] # (Auto) Eos # (Auto) Baso # (Auto) Abs Immat Gran (auto) Absolute Neuts (auto) Absolute Nucleated RBC Nucleated RBC % (auto) Smear Tech's Comments PT INR VBG pH VBG pCO2 VBG pO2 VBG HCO3 VBG O2 Saturation VBG Base Excess Sodium Potassium Chloride Carbon Dioxide Anion Gap BUN Creatinine Estim Creat Clear Calc Estimated GFR POC Glucose Random Glucose Calcium Phosphorus Magnesium Random Vancomycin 05/09/24 05/09/24 05/09/24 08:34 08:34 08:34 WBC RBC Hgb Hct MCV MCH MCHC 34.2 RDW Cancelled 22.6 H Plt Count Cancelled TNP MPV Cancelled Immature Gran % (Auto) Neut % (Auto) Lymph % (Auto) [place] % (Auto) Eos % (Auto) Baso % (Auto) Lymph # (Auto) [place] # (Auto) Eos # (Auto) Baso # (Auto) Abs Immat Gran (auto) Absolute Neuts (auto) Absolute Nucleated RBC Nucleated RBC % (auto) Smear Tech's Comments PT INR VBG pH VBG pCO2 VBG pO2 VBG HCO3 VBG O2 Saturation VBG Base Excess Sodium Potassium Chloride Carbon Dioxide Anion Gap BUN Creatinine Estim Creat Clear Calc Estimated GFR POC Glucose Random Glucose Calcium Phosphorus Magnesium Random Vancomycin 05/09/24 05/09/24 05/09/24 08:34 08:34 08:34 WBC RBC Hgb Hct MCV MCH MCHC RDW Plt Count MPV Not Reportable Immature Gran % (Auto) Cancelled 3.9 H Neut % (Auto) Cancelled 76.3 H Lymph % (Auto) Cancelled [place] % (Auto) Eos % (Auto) Baso % (Auto) Lymph # (Auto) [place] # (Auto) Eos # (Auto) Baso # (Auto) Abs Immat Gran (auto) Absolute Neuts (auto) Absolute Nucleated RBC Nucleated RBC % (auto) Smear Tech's Comments PT INR VBG pH VBG pCO2 VBG pO2 VBG HCO3 VBG O2 Saturation VBG Base Excess Sodium Potassium Chloride Carbon Dioxide Anion Gap BUN Creatinine Estim Creat Clear Calc Estimated GFR POC Glucose Random Glucose Calcium Phosphorus Magnesium Random Vancomycin 05/09/24 05/09/24 05/09/24 08:34 08:34 08:34 WBC RBC Hgb Hct MCV MCH MCHC RDW Plt Count MPV Immature Gran % (Auto) Neut % (Auto) Lymph % (Auto) 8.5 L [place] % (Auto) Cancelled 7.1 Eos % (Auto) Cancelled 3.6 Baso % (Auto) Cancelled Lymph # (Auto) [place] # (Auto) Eos # (Auto) Baso # (Auto) Abs Immat Gran (auto) Absolute Neuts (auto) Absolute Nucleated RBC Nucleated RBC % (auto) Smear Tech's Comments PT INR VBG pH VBG pCO2 VBG pO2 VBG HCO3 VBG O2 Saturation VBG Base Excess Sodium Potassium Chloride Carbon Dioxide Anion Gap BUN Creatinine Estim Creat Clear Calc Estimated GFR POC Glucose Random Glucose Calcium Phosphorus Magnesium Random Vancomycin 05/09/24 05/09/24 05/09/24 08:34 08:34 08:34 WBC RBC Hgb Hct MCV MCH MCHC RDW Plt Count MPV Immature Gran % (Auto) Neut % (Auto) Lymph % (Auto) [place] % (Auto) Eos % (Auto) Baso % (Auto) 0.6 Lymph # (Auto) Cancelled 1.2 [place] # (Auto) Cancelled 1.0 Eos # (Auto) Cancelled Baso # (Auto) Abs Immat Gran (auto) Absolute Neuts (auto) Absolute Nucleated RBC Nucleated RBC % (auto) Smear Tech's Comments PT INR VBG pH VBG pCO2 VBG pO2 VBG HCO3 VBG O2 Saturation VBG Base Excess Sodium Potassium Chloride Carbon Dioxide Anion Gap BUN Creatinine Estim Creat Clear Calc Estimated GFR POC Glucose Random Glucose Calcium Phosphorus Magnesium Random Vancomycin 05/09/24 05/09/24 05/09/24 08:34 08:34 08:34 WBC RBC Hgb Hct MCV MCH MCHC RDW Plt Count MPV Immature Gran % (Auto) Neut % (Auto) Lymph % (Auto) [place] % (Auto) Eos % (Auto) Baso % (Auto) Lymph # (Auto) [place] # (Auto) Eos # (Auto) 0.5 H Baso # (Auto) Cancelled 0.1 Abs Immat Gran (auto) Cancelled 0.55 H Absolute Neuts (auto) Cancelled Absolute Nucleated RBC Nucleated RBC % (auto) Smear Tech's Comments PT INR VBG pH VBG pCO2 VBG pO2 VBG HCO3 VBG O2 Saturation VBG Base Excess Sodium Potassium Chloride Carbon Dioxide Anion Gap BUN Creatinine Estim Creat Clear Calc Estimated GFR POC Glucose Random Glucose Calcium Phosphorus Magnesium Random Vancomycin 05/09/24 05/09/24 05/09/24 08:34 08:34 08:34 WBC RBC Hgb Hct MCV MCH MCHC RDW Plt Count MPV Immature Gran % (Auto) Neut % (Auto) Lymph % (Auto) [place] % (Auto) Eos % (Auto) Baso % (Auto) Lymph # (Auto) [place] # (Auto) Eos # (Auto) Baso # (Auto) Abs Immat Gran (auto) Absolute Neuts (auto) 10.7 H Absolute Nucleated RBC Cancelled 0.000 Nucleated RBC % (auto) Cancelled 0.0 Smear Tech's Comments VERIFIED PT 12.4 INR 1.1 VBG pH VBG pCO2 VBG pO2 VBG HCO3 VBG O2 Saturation VBG Base Excess Sodium 139 Potassium Chloride Carbon Dioxide Anion Gap BUN Creatinine Estim Creat Clear Calc Estimated GFR POC Glucose Random Glucose Calcium Phosphorus Magnesium Random Vancomycin 05/09/24 05/09/24 05/09/24 08:34 08:34 08:34 WBC RBC Hgb Hct MCV MCH MCHC RDW Plt Count MPV Immature Gran % (Auto) Neut % (Auto) Lymph % (Auto) [place] % (Auto) Eos % (Auto) Baso % (Auto) Lymph # (Auto) [place] # (Auto) Eos # (Auto) Baso # (Auto) Abs Immat Gran (auto) Absolute Neuts (auto) Absolute Nucleated RBC Nucleated RBC % (auto) Smear Tech's Comments PT INR VBG pH VBG pCO2 VBG pO2 VBG HCO3 VBG O2 Saturation VBG Base Excess Sodium Cancelled Potassium 4.2 Cancelled Chloride 104 Cancelled Carbon Dioxide 25 Anion Gap BUN Creatinine Estim Creat Clear Calc Estimated GFR POC Glucose Random Glucose Calcium Phosphorus Magnesium Random Vancomycin 05/09/24 05/09/24 05/09/24 08:34 08:34 08:34 WBC RBC Hgb Hct MCV MCH MCHC RDW Plt Count MPV Immature Gran % (Auto) Neut % (Auto) Lymph % (Auto) [place] % (Auto) Eos % (Auto) Baso % (Auto) Lymph # (Auto) [place] # (Auto) Eos # (Auto) Baso # (Auto) Abs Immat Gran (auto) Absolute Neuts (auto) Absolute Nucleated RBC Nucleated RBC % (auto) Smear Tech's Comments PT INR VBG pH VBG pCO2 VBG pO2 VBG HCO3 VBG O2 Saturation VBG Base Excess Sodium Potassium Chloride Carbon Dioxide Cancelled Anion Gap 14 Cancelled BUN 44 H Cancelled Creatinine 4.07 H* Estim Creat Clear Calc Estimated GFR POC Glucose Random Glucose Calcium Phosphorus Magnesium Random Vancomycin 05/09/24 05/09/24 05/09/24 08:34 08:34 08:34 WBC RBC Hgb Hct MCV MCH MCHC RDW Plt Count MPV Immature Gran % (Auto) Neut % (Auto) Lymph % (Auto) [place] % (Auto) Eos % (Auto) Baso % (Auto) Lymph # (Auto) [place] # (Auto) Eos # (Auto) Baso # (Auto) Abs Immat Gran (auto) Absolute Neuts (auto) Absolute Nucleated RBC Nucleated RBC % (auto) Smear Tech's Comments PT INR VBG pH VBG pCO2 VBG pO2 VBG HCO3 VBG O2 Saturation VBG Base Excess Sodium Potassium Chloride Carbon Dioxide Anion Gap BUN Creatinine Cancelled Estim Creat Clear Calc 15.0 Cancelled Estimated GFR 11 Cancelled POC Glucose Random Glucose 141 H Calcium Phosphorus Magnesium Random Vancomycin 05/09/24 05/09/24 05/09/24 08:34 08:34 08:34 WBC RBC Hgb Hct MCV MCH MCHC RDW Plt Count MPV Immature Gran % (Auto) Neut % (Auto) Lymph % (Auto) [place] % (Auto) Eos % (Auto) Baso % (Auto) Lymph # (Auto) [place] # (Auto) Eos # (Auto) Baso # (Auto) Abs Immat Gran (auto) Absolute Neuts (auto) Absolute Nucleated RBC Nucleated RBC % (auto) Smear Tech's Comments PT INR VBG pH VBG pCO2 VBG pO2 VBG HCO3 VBG O2 Saturation VBG Base Excess Sodium Potassium Chloride Carbon Dioxide Anion Gap BUN Creatinine Estim Creat Clear Calc Estimated GFR POC Glucose Random Glucose Cancelled Calcium 7.9 L Cancelled Phosphorus 4.9 H Magnesium 1.8 Cancelled Random Vancomycin 05/09/24 08:48 WBC RBC Hgb Hct MCV MCH MCHC RDW Plt Count MPV Immature Gran % (Auto) Neut % (Auto) Lymph % (Auto) [place] % (Auto) Eos % (Auto) Baso % (Auto) Lymph # (Auto) [place] # (Auto) Eos # (Auto) Baso # (Auto) Abs Immat Gran (auto) Absolute Neuts (auto) Absolute Nucleated RBC Nucleated RBC % (auto) Smear Tech's Comments PT INR VBG pH 7.47 H VBG pCO2 38 VBG pO2 78 VBG HCO3 28 H VBG O2 Saturation 97.0 VBG Base Excess 4.4 Sodium Potassium Chloride Carbon Dioxide Anion Gap BUN Creatinine Estim Creat Clear Calc Estimated GFR POC Glucose Random Glucose Calcium Phosphorus Magnesium Random Vancomycin Microbiology Microbiology Results: Microbiology 05/07/24 20:30 Urine clean catch Urine Culture - Preliminary Culture too young to evaluate. 05/04/24 08:26 Blood - Venous Blood Culture - Preliminary No growth after 48 hours. 05/04/24 08:25 Blood - Venous Blood Culture - Preliminary No growth after 48 hours. 05/04/24 15:12 Urine clean catch - Clean Catch Midstream Urine Culture - Final Procedures Date of Service Date of Service: 05/09/24 Assessment & Plan Assessment and plan (1) Acute subdural hematoma: Status: Acute Assessment and Plan: 68 years old woman with underlying end-stage renal disease severe anemia, left frontal craniotomy and encephalomalacia of unknown cause and probably related seizure disorder, and multifactorial gait disorder who had a mechanical fall at home resulting in tiny right parafalcine subdural hemorrhage. Bleed was stable and did not require any intervention or follow-up imaging at this time. Motor attention is needed on her metabolic issues and common sense interventions to avoid falling. New issues: Pcath func poorly Plan 1. ESRD: usu MWF at HDU 2. 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 Wounds 5. Unsteady gait and ques safety with going home 6. Hemoaccess: needs Pcath replaced REC: HD mwf; epo/fe; abx as noted; d/c planning--ques go to rehab instead of hoemat time of d/c--PT and daughte to talk to team; needs Pcath replaced Will follow wteam Time Spent With Patient Time: Total time managing care of this patient today ____ minutes. Progress Note: Quality Stroke Does the patient have a stroke diagnosis?: No
[2024-05-09 12:51] LABS: Glucose, Whole Blood 126 mg/dL (60-115)
--- NOTE | 2024-05-09 14:39 | HO.ANESPROP2 ---
[facility] Active Problems Active Problems: All Active Problems Eschar of heel (Acute) Cellulitis (Acute) Fall (Acute) Laceration of occipital scalp (Acute) Anemia of chronic renal failure, stage 4 (severe) (Acute) Acute subdural hematoma (Acute) ESRD (end stage renal disease) on dialysis (Acute) Diabetes mellitus with hypoglycemia (Acute) Status post amputation of toe of left foot (Acute) Diabetic infection of left foot (Acute) Pyelonephritis (Acute) Gangrene of toe of left foot (Acute) ESRD (end stage renal disease) (Acute) Metabolic acidosis (Acute) Diabetic infection of left foot (Acute) Anemia (Acute) Acute on chronic renal failure (Acute) Osteomyelitis (Acute) Recurrent seizures (Acute) Abnormal soft tissue x-ray of chest (Acute) Kidney stone (Acute) Past Medical History Medical History Eschar of heel ESRD (end stage renal disease) Generalized seizure Acute kidney injury CKD (chronic kidney disease) stage 3, GFR 30-59 ml/min CHF (congestive heart failure) Anemia Brain tumor (benign) Lower extremity edema Pneumonia Asthma Pulmonary nodule HLD (hyperlipidemia) Seizure Acute hypoxemic respiratory failure due to COVID-19 COVID-19 Kidney stone Depression Gastritis Diabetes Family History Family History Father CAD (coronary artery disease) Brother Lung cancer Sister Kidney stone Family history of problems with anesthesia: No Surgical History Surgical History 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) H/O lithotripsy H/O ureteroscopy H/O cystoscopy S/P ureteral stent placement History of cholecystectomy H/O hernia repair History of Problems with Anesthesia: No Social History Social History Household Members: Children Housing: House Do you presently have visiting nurse or other home services: Yes (daughter is commercial account executive, vna 2x week.) Alcohol intake: former Comment: pt sleeping at this time Patient Tobacco Use Status: Never used Tobacco e-Cigarette/Vaping Use: Never Used Advance Directives Date on File: 12/20/21 service: No Current occupational status: unemployed Meds Allergies Allergy/AdvReac Type Severity Reaction Status Date / Time Egg Derived Allergy Unknown Verified 05/04/24 01:05 Active Medications: Current Medications Acetaminophen (Acetaminophen 325 Mg Tablet) 650 mg PO Q6H PRN PRN Reason: Pain, Mild 1-3,fever,headache Last Admin: 05/08/24 22:48 Dose: 650 mg Atorvastatin Calcium (Atorvastatin Calcium 80 Mg Tablet) 80 mg PO DAILY [facility] Last Admin: 05/09/24 08:37 Dose: 80 mg Calcium Carbonate (Calcium Carbonate 750 Mg Tab.Chew) 750 mg PO Q4H PRN PRN Reason: Heartburn Dextrose (Dextrose 50 % 25 Gm/50 Ml Syringe) 25 gm IVPUSH Q15M PRN; Protocol PRN Reason: per Hypoglycemia Standing Ord. Ferrous Sulfate (Ferrous Sulfate 324 Mg Tablet.Dr) 324 mg PO DAILY [facility] Last Admin: 05/09/24 08:37 Dose: 324 mg Folic Acid (Folic Acid 1 Mg Tablet) 1 mg PO DAILY [facility] Last Admin: 05/09/24 08:37 Dose: 1 mg Furosemide (Furosemide 40 Mg Tablet) 80 mg PO BID [facility]; Protocol Last Admin: 05/09/24 08:36 Dose: 80 mg Gabapentin (Gabapentin 100 Mg Capsule) 200 mg PO DAILY [facility] Last Admin: 05/09/24 08:37 Dose: 200 mg Gabapentin (Gabapentin 300 Mg Capsule) 300 mg PO MOWEFR@1800 [facility] Last Admin: 05/08/24 17:48 Dose: 300 mg Glucose (Glucose Gel 15 Gm Gel..Gram.) 15 gm PO Q15M PRN; Protocol PRN Reason: per Hypoglycemia Standing Ord. Vancomycin HCl 500 mg/ Sodium (Chloride) 110 mls @ 110 mls/hr IV ONCE ONE Stop: 05/04/24 13:44 Piperacillin Sod/Tazobactam (Sod 2.25 gm/ Sodium Chloride) 50 mls @ 100 mls/hr IV Q12H [facility] Last Admin: 05/09/24 13:50 Dose: 100 mls/hr Insulin Glargine (Insulin Glargine,Hum.Rec.Anlog 100 Unit/Ml 10 Ml Vial) 21 unit SUBCUT BEDTIME [facility] Last Admin: 05/04/24 20:38 Dose: 21 unit Insulin Human Lispro (Insulin Lispro 100 Unit/Ml 3 Ml Vial) 0 unit SUBCUT QIDACHS [facility]; Protocol Last Admin: 05/09/24 12:21 Dose: Not Given Labetalol HCl (Labetalol Hcl 100 Mg/20 Ml Vial) 5 mg IVPUSH ONCE PRN PRN Reason: SBP > 160 Levetiracetam (Levetiracetam 500 Mg Tablet) 500 mg PO MOWEFR@1800 [facility] Last Admin: 05/08/24 17:47 Dose: 500 mg Lorazepam (Lorazepam 0.5 Mg Tablet) 0.5 mg PO DAILY PRN PRN Reason: anxiety Last Admin: 05/06/24 09:21 Dose: 0.5 mg Magnesium Hydroxide (Milk Of Magnesia 30 Ml Oral.Susp) 30 ml PO DAILY PRN PRN Reason: Constipation Melatonin (Melatonin 3 Mg Tablet) 6 mg PO BEDTIME PRN PRN Reason: Insomnia Last Admin: 05/07/24 02:27 Dose: 6 mg Omeprazole (Omeprazole 40 Mg Capsule.Dr) 40 mg PO BID@0630,1630 [facility] Last Admin: 05/09/24 05:25 Dose: Not Given Oxycodone HCl (Oxycodone Hcl Immed Release 5 Mg Tablet) 5 mg PO Q4H PRN PRN Reason: Pain, Moderate(Pain Scale 4-6) Last Admin: 05/09/24 13:51 Dose: 5 mg Pharmacy Consult (Consult Rx Vancomycin Dosing) 1 each MISCELLANE DAILY PRN PRN Reason: Consult order Phenytoin Sodium (Phenytoin Sodium Extended 100 Mg Capsule) 100 mg PO TID [facility] Last Admin: 05/09/24 13:50 Dose: 100 mg Sertraline HCl (Sertraline Hcl 100 Mg Tablet) 100 mg PO DAILY [facility] Last Admin: 05/09/24 08:37 Dose: 100 mg Sodium Chloride (0.9 % Sodium Chloride Flush 3 Ml Syringe) 3 ml IVFLUSH QSHIFT [facility] Last Admin: 05/09/24 08:36 Dose: 3 ml Trazodone HCl (Trazodone Hcl 100 Mg Tablet) 100 mg PO BEDTIME PRN PRN Reason: Sleep Last Admin: 05/07/24 20:05 Dose: 100 mg Valproic Acid (Valproic Acid 250 Mg Capsule) 1,000 mg PO BID [facility] Last Admin: 05/09/24 08:37 Dose: 1,000 mg Vitamin D (Cholecalciferol (Vitamin D3) 25 Mcg Tablet) 50 mcg PO DAILY [facility] Last Admin: 05/09/24 08:37 Dose: 50 mcg Home Medications ?Medication ?Instructions ?Recorded ?Confirmed ?Last Taken ?Type blood sugar diagnostic (FreeStyle 03/28/20 09/09/22 Unknown History Lite Strips) blood-glucose meter (FreeStyle 03/28/20 09/09/22 Unknown History [place] Lite kit) lancets 28 gauge (FreeStyle 03/28/20 09/09/22 Unknown History Lancets) omeprazole 40 mg capsule,delayed 40 mg PO BID@0630,1630 10/02/21 05/04/24 03/21/24 History release blood pressure test kit-large #1 ea 10/12/21 09/09/22 Unknown History atorvastatin 80 mg tablet 80 mg PO DAILY 12/20/21 05/04/24 03/21/24 History nebulizers 01/20/22 09/09/22 Unknown History amlodipine 10 mg tablet 10 mg PO DAILY 05/29/22 05/04/24 03/21/24 History aspirin 81 mg tablet,delayed 81 mg PO DAILY 05/29/22 05/04/24 03/21/24 History release lancets 33 gauge (TRUEplus Lancets) #100 ea 06/07/22 09/09/22 Unknown History trazodone 50 mg tablet 100 mg PO BEDTIME PRN Sleep 06/07/22 05/04/24 10/26/23 History cholecalciferol (vitamin D3) 50 50 mcg PO DAILY 11/24/22 05/04/24 03/21/24 History mcg (2,000 unit) tablet ferrous gluconate 324 mg (38 mg 324 mg PO DAILY 11/24/22 05/04/24 03/21/24 History iron) tablet acetaminophen 650 mg 650 mg PO Q8H PRN mild pain 03/22/24 05/04/24 Unknown History tablet,extended release diclofenac sodium 1 % topical gel 2 g topical BEDTIME PRN Pain 03/22/24 05/04/24 03/21/24 History losartan 100 mg tablet 100 mg PO BID 03/22/24 05/04/24 03/21/24 History valproic acid 250 mg capsule 1,000 mg PO BID 03/22/24 05/04/24 03/21/24 History furosemide 40 mg tablet 80 mg PO BID 05/04/24 05/04/24 Unknown History gabapentin 100 mg capsule 200 mg PO DAILY 05/04/24 05/04/24 Unknown History gabapentin 300 mg capsule 300 mg PO MOWEFR@1800 05/04/24 05/04/24 Unknown History insulin glargine 100 unit/mL (3 30 unit subcut BEDTIME 05/04/24 05/04/24 Unknown History mL) subcutaneous pen (Basaglar KwikPen U-100 Insulin) levetiracetam 500 mg tablet 500 mg PO MOWEFR@1800 05/04/24 05/04/24 Unknown History lorazepam 0.5 mg tablet 0.5 mg PO DAILY PRN anxiety 05/04/24 05/04/24 Unknown History sertraline 50 mg tablet 100 mg PO DAILY 05/04/24 05/04/24 Unknown History Exam Height,Weight and Vital Signs: Height 5 ft 2 in Weight 102.4 kg Last Vital Signs Temp 97.7 F 05/09/24 11:16 Pulse 83 05/09/24 12:50 Resp 10 L 05/09/24 12:32 BP 162/63 H 05/09/24 12:50 Pulse Ox 100 05/09/24 12:50 O2 Del Method Nasal Cannula 05/09/24 12:50 Pertinent Lab Results Pertinent Lab Results: Laboratory Tests 05/04/24 05/04/24 05/04/24 01:41 03:30 08:25 WBC 15.5 H RBC 1.93 L D Hgb 6.0 L* D Hct 17.5 L* D MCV 90.7 MCH 31.1 MCHC 34.3 RDW 18.7 H Plt Count 101 L D MPV 12.2 Immature Gran % (Auto) 1.9 H Neut % (Auto) 83.0 H Lymph % (Auto) 7.1 L [place] % (Auto) 6.3 Eos % (Auto) 1.2 Baso % (Auto) 0.5 Lymph # (Auto) 1.1 L [place] # (Auto) 1.0 Eos # (Auto) 0.2 Baso # (Auto) 0.1 Abs Immat Gran (auto) 0.30 H Absolute Neuts (auto) 12.8 H Absolute Nucleated RBC 0.000 Nucleated RBC % (auto) 0.0 Smear Tech's Comments ESR PT INR VBG pH VBG pCO2 VBG pO2 VBG HCO3 VBG O2 Saturation VBG Base Excess Sodium 140 Potassium 4.1 Chloride 101 Carbon Dioxide 23 Anion Gap 20 BUN 69 H Creatinine 5.48 H* Estim Creat Clear Calc 11.1 Estimated GFR 8 POC Glucose Random Glucose 244 H Estimat Average Glucose Hemoglobin A1c % Lactic Acid 2.2 H* Lactic Acid F/U @ 2Hr Calcium 7.9 L Phosphorus Magnesium Iron TIBC % Saturation Unsat Iron Binding Ferritin Total Bilirubin 0.2 AST 22 ALT 6 Alkaline Phosphatase 129 H C-Reactive Protein Total Protein 7.1 Albumin 2.8 L Vitamin B12 Folate Urine Color Urine Appearance Urine pH Ur Specific [place] Urine Protein Urine Glucose (UA) Urine Ketones Urine Blood Urine Nitrite Ur Leukocyte Esterase Urine RBC Urine WBC Ur Squamous Epith Cells Urine Bacteria Hyaline Casts Urine Yeast Stool Occult Blood Random Vancomycin Phenytoin Valproic Acid Blood Type O Positive Antibody Screen NEGATIVE Crossmatch See Detail 05/04/24 05/04/24 05/04/24 11:09 15:12 16:30 WBC RBC Hgb 7.8 L D Hct 23.5 L D MCV MCH MCHC RDW Plt Count MPV Immature Gran % (Auto) Neut % (Auto) Lymph % (Auto) [place] % (Auto) Eos % (Auto) Baso % (Auto) Lymph # (Auto) [place] # (Auto) Eos # (Auto) Baso # (Auto) Abs Immat Gran (auto) Absolute Neuts (auto) Absolute Nucleated RBC Nucleated RBC % (auto) Smear Tech's Comments ESR PT INR VBG pH VBG pCO2 VBG pO2 VBG HCO3 VBG O2 Saturation VBG Base Excess Sodium Potassium Chloride Carbon Dioxide Anion Gap BUN Creatinine Estim Creat Clear Calc Estimated GFR POC Glucose Random Glucose Estimat Average Glucose Hemoglobin A1c % Lactic Acid Lactic Acid F/U @ 2Hr 1.6 Calcium Phosphorus Magnesium Iron TIBC % Saturation Unsat Iron Binding Ferritin Total Bilirubin AST ALT Alkaline Phosphatase C-Reactive Protein Total Protein Albumin Vitamin B12 Folate Urine Color Yellow Urine Appearance Turbid Urine pH 6.0 Ur Specific [place] 1.025 Urine Protein >=1000 (4+) H Urine Glucose (UA) Negative Urine Ketones Trace Urine Blood Small (1+) H Urine Nitrite Negative Ur Leukocyte Esterase Large (3+) H Urine RBC 6-10 H Urine WBC >50 H Ur Squamous Epith Cells >20 Urine Bacteria 4+ Hyaline Casts 0-2 Urine Yeast Present Stool Occult Blood Random Vancomycin Phenytoin Valproic Acid Blood Type Antibody Screen Crossmatch 05/04/24 05/05/24 05/05/24 20:06 00:06 01:41 WBC RBC Hgb Hct MCV MCH MCHC RDW Plt Count MPV Immature Gran % (Auto) Neut % (Auto) Lymph % (Auto) [place] % (Auto) Eos % (Auto) Baso % (Auto) Lymph # (Auto) [place] # (Auto) Eos # (Auto) Baso # (Auto) Abs Immat Gran (auto) Absolute Neuts (auto) Absolute Nucleated RBC Nucleated RBC % (auto) Smear Tech's Comments ESR PT INR VBG pH VBG pCO2 VBG pO2 VBG HCO3 VBG O2 Saturation VBG Base Excess Sodium Potassium Chloride Carbon Dioxide Anion Gap BUN Creatinine Estim Creat Clear Calc Estimated GFR POC Glucose 158 H 79 Random Glucose Estimat Average Glucose 134 Hemoglobin A1c % 6.3 H Lactic Acid Lactic Acid F/U @ 2Hr Calcium Phosphorus Magnesium Iron TIBC % Saturation Unsat Iron Binding Ferritin Total Bilirubin AST ALT Alkaline Phosphatase C-Reactive Protein Total Protein Albumin Vitamin B12 Folate Urine Color Urine Appearance Urine pH Ur Specific [place] Urine Protein Urine Glucose (UA) Urine Ketones Urine Blood Urine Nitrite Ur Leukocyte Esterase Urine RBC Urine WBC Ur Squamous Epith Cells Urine Bacteria Hyaline Casts Urine Yeast Stool Occult Blood Random Vancomycin Phenytoin Valproic Acid Blood Type Antibody Screen Crossmatch 05/05/24 05/05/24 05/05/24 07:02 07:30 08:02 WBC RBC Hgb Hct MCV MCH MCHC RDW Plt Count MPV Immature Gran % (Auto) Neut % (Auto) Lymph % (Auto) [place] % (Auto) Eos % (Auto) Baso % (Auto) Lymph # (Auto) [place] # (Auto) Eos # (Auto) Baso # (Auto) Abs Immat Gran (auto) Absolute Neuts (auto) Absolute Nucleated RBC Nucleated RBC % (auto) Smear Tech's Comments ESR PT INR VBG pH VBG pCO2 VBG pO2 VBG HCO3 VBG O2 Saturation VBG Base Excess Sodium 139 Potassium 4.7 Chloride 104 Carbon Dioxide 19 L Anion Gap 21 H BUN 72 H Creatinine 5.87 H* Estim Creat Clear Calc 10.4 Estimated GFR 7 POC Glucose 55 L* 70 Random Glucose 72 Estimat Average Glucose Hemoglobin A1c % Lactic Acid Lactic Acid F/U @ 2Hr Calcium 8.0 L Phosphorus Magnesium Iron TIBC % Saturation Unsat Iron Binding Ferritin Total Bilirubin AST ALT Alkaline Phosphatase C-Reactive Protein 41.21 H Total Protein Albumin Vitamin B12 Folate Urine Color Urine Appearance Urine pH Ur Specific [place] Urine Protein Urine Glucose (UA) Urine Ketones Urine Blood Urine Nitrite Ur Leukocyte Esterase Urine RBC Urine WBC Ur Squamous Epith Cells Urine Bacteria Hyaline Casts Urine Yeast Stool Occult Blood Random Vancomycin Phenytoin Valproic Acid Blood Type Antibody Screen Crossmatch 05/05/24 05/05/24 05/05/24 10:37 11:03 16:25 WBC 14.7 H RBC 2.60 L D Hgb 7.6 L Hct 22.4 L MCV 86.2 MCH 29.2 MCHC 33.9 RDW 25.4 H Plt Count 167 D MPV 11.5 Immature Gran % (Auto) Neut % (Auto) Lymph % (Auto) [place] % (Auto) Eos % (Auto) Baso % (Auto) Lymph # (Auto) [place] # (Auto) Eos # (Auto) Baso # (Auto) Abs Immat Gran (auto) Absolute Neuts (auto) Absolute Nucleated RBC 0.000 Nucleated RBC % (auto) 0.0 Smear Tech's Comments ESR > 140 H PT INR VBG pH VBG pCO2 VBG pO2 VBG HCO3 VBG O2 Saturation VBG Base Excess Sodium Potassium Chloride Carbon Dioxide Anion Gap BUN Creatinine Estim Creat Clear Calc Estimated GFR POC Glucose 104 176 H Random Glucose Estimat Average Glucose Hemoglobin A1c % Lactic Acid Lactic Acid F/U @ 2Hr Calcium Phosphorus Magnesium Iron TIBC % Saturation Unsat Iron Binding Ferritin Total Bilirubin AST ALT Alkaline Phosphatase C-Reactive Protein Total Protein Albumin Vitamin B12 Folate Urine Color Urine Appearance Urine pH Ur Specific [place] Urine Protein Urine Glucose (UA) Urine Ketones Urine Blood Urine Nitrite Ur Leukocyte Esterase Urine RBC Urine WBC Ur Squamous Epith Cells Urine Bacteria Hyaline Casts Urine Yeast Stool Occult Blood Random Vancomycin Phenytoin Valproic Acid Blood Type Antibody Screen Crossmatch 05/05/24 05/06/24 05/06/24 21:18 06:29 07:18 WBC 15.3 H RBC 2.42 L Hgb 6.9 L* Hct 21.0 L* MCV 86.8 MCH 28.5 MCHC 32.9 RDW 25.2 H Plt Count TNP MPV TNP Immature Gran % (Auto) Neut % (Auto) Lymph % (Auto) [place] % (Auto) Eos % (Auto) Baso % (Auto) Lymph # (Auto) [place] # (Auto) Eos # (Auto) Baso # (Auto) Abs Immat Gran (auto) Absolute Neuts (auto) Absolute Nucleated RBC 0.000 Nucleated RBC % (auto) 0.0 Smear Tech's Comments ESR PT INR VBG pH VBG pCO2 VBG pO2 VBG HCO3 VBG O2 Saturation VBG Base Excess Sodium 138 Potassium 4.9 Chloride 103 Carbon Dioxide 19 L Anion Gap 21 H BUN 84 H Creatinine 6.72 H* Estim Creat Clear Calc 9.1 Estimated GFR 6 POC Glucose 177 H 141 H Random Glucose 151 H Estimat Average Glucose Hemoglobin A1c % Lactic Acid Lactic Acid F/U @ 2Hr Calcium 8.0 L Phosphorus Magnesium Iron 31 TIBC 148 L % Saturation 21 Unsat Iron Binding 117 Ferritin 1887 H Total Bilirubin AST ALT Alkaline Phosphatase C-Reactive Protein Total Protein Albumin Vitamin B12 Folate Urine Color Urine Appearance Urine pH Ur Specific [place] Urine Protein Urine Glucose (UA) Urine Ketones Urine Blood Urine Nitrite Ur Leukocyte Esterase Urine RBC Urine WBC Ur Squamous Epith Cells Urine Bacteria Hyaline Casts Urine Yeast Stool Occult Blood Random Vancomycin Phenytoin < 1.8 L* Valproic Acid 25.3 L Blood Type Antibody Screen Crossmatch 05/06/24 05/06/24 05/06/24 08:34 11:56 17:16 WBC RBC Hgb 7.5 L Hct 22.9 L MCV MCH MCHC RDW Plt Count MPV Immature Gran % (Auto) Neut % (Auto) Lymph % (Auto) [place] % (Auto) Eos % (Auto) Baso % (Auto) Lymph # (Auto) [place] # (Auto) Eos # (Auto) Baso # (Auto) Abs Immat Gran (auto) Absolute Neuts (auto) Absolute Nucleated RBC Nucleated RBC % (auto) Smear Tech's Comments ESR PT INR VBG pH VBG pCO2 VBG pO2 VBG HCO3 VBG O2 Saturation VBG Base Excess Sodium Potassium Chloride Carbon Dioxide Anion Gap BUN Creatinine Estim Creat Clear Calc Estimated GFR POC Glucose 176 H 170 H Random Glucose Estimat Average Glucose Hemoglobin A1c % Lactic Acid Lactic Acid F/U @ 2Hr Calcium Phosphorus Magnesium Iron TIBC % Saturation Unsat Iron Binding Ferritin Total Bilirubin AST ALT Alkaline Phosphatase C-Reactive Protein Total Protein Albumin Vitamin B12 695 Folate 11.8 Urine Color Urine Appearance Urine pH Ur Specific [place] Urine Protein Urine Glucose (UA) Urine Ketones Urine Blood Urine Nitrite Ur Leukocyte Esterase Urine RBC Urine WBC Ur Squamous Epith Cells Urine Bacteria Hyaline Casts Urine Yeast Stool Occult Blood Random Vancomycin Phenytoin Valproic Acid Blood Type Antibody Screen Crossmatch 05/06/24 05/06/24 05/07/24 18:53 20:37 01:00 WBC RBC Hgb Hct MCV MCH MCHC RDW Plt Count MPV Immature Gran % (Auto) Neut % (Auto) Lymph % (Auto) [place] % (Auto) Eos % (Auto) Baso % (Auto) Lymph # (Auto) [place] # (Auto) Eos # (Auto) Baso # (Auto) Abs Immat Gran (auto) Absolute Neuts (auto) Absolute Nucleated RBC Nucleated RBC % (auto) Smear Tech's Comments ESR PT INR VBG pH VBG pCO2 VBG pO2 VBG HCO3 VBG O2 Saturation VBG Base Excess Sodium Potassium Chloride Carbon Dioxide Anion Gap BUN Creatinine Estim Creat Clear Calc Estimated GFR POC Glucose 220 H Random Glucose Estimat Average Glucose Hemoglobin A1c % Lactic Acid Lactic Acid F/U @ 2Hr Calcium Phosphorus Magnesium Iron TIBC % Saturation Unsat Iron Binding Ferritin Total Bilirubin AST ALT Alkaline Phosphatase C-Reactive Protein Total Protein Albumin Vitamin B12 Folate Urine Color Urine Appearance Urine pH Ur Specific [place] Urine Protein Urine Glucose (UA) Urine Ketones Urine Blood Urine Nitrite Ur Leukocyte Esterase Urine RBC Urine WBC Ur Squamous Epith Cells Urine Bacteria Hyaline Casts Urine Yeast Stool Occult Blood NEGATIVE Random Vancomycin 8.9 L Phenytoin Valproic Acid Blood Type Antibody Screen Crossmatch 05/07/24 05/07/24 05/07/24 07:58 09:10 11:01 WBC RBC Hgb Hct MCV MCH MCHC RDW Plt Count MPV Immature Gran % (Auto) Neut % (Auto) Lymph % (Auto) [place] % (Auto) Eos % (Auto) Baso % (Auto) Lymph # (Auto) [place] # (Auto) Eos # (Auto) Baso # (Auto) Abs Immat Gran (auto) Absolute Neuts (auto) Absolute Nucleated RBC Nucleated RBC % (auto) Smear Tech's Comments ESR PT INR VBG pH VBG pCO2 VBG pO2 VBG HCO3 VBG O2 Saturation VBG Base Excess Sodium 139 Potassium 4.3 Chloride 103 Carbon Dioxide 23 Anion Gap 17 BUN 54 H Creatinine 5.00 H* Estim Creat Clear Calc 12.2 Estimated GFR 9 POC Glucose 139 H 171 H Random Glucose 161 H Estimat Average Glucose Hemoglobin A1c % Lactic Acid Lactic Acid F/U @ 2Hr Calcium 7.8 L Phosphorus Magnesium Iron TIBC % Saturation Unsat Iron Binding Ferritin Total Bilirubin AST ALT Alkaline Phosphatase C-Reactive Protein Total Protein Albumin Vitamin B12 Folate Urine Color Urine Appearance Urine pH Ur Specific [place] Urine Protein Urine Glucose (UA) Urine Ketones Urine Blood Urine Nitrite Ur Leukocyte Esterase Urine RBC Urine WBC Ur Squamous Epith Cells Urine Bacteria Hyaline Casts Urine Yeast Stool Occult Blood Random Vancomycin Phenytoin Valproic Acid Blood Type Antibody Screen Crossmatch 05/07/24 05/07/24 05/07/24 12:51 15:53 20:05 WBC 14.8 H RBC 2.62 L Hgb 7.7 L Hct 22.6 L MCV 86.3 MCH 29.4 MCHC 34.1 RDW 23.1 H Plt Count TNP MPV TNP Immature Gran % (Auto) 2.4 H Neut % (Auto) 75.8 H Lymph % (Auto) 9.6 L [place] % (Auto) 7.4 Eos % (Auto) 4.3 H Baso % (Auto) 0.5 Lymph # (Auto) 1.4 [place] # (Auto) 1.1 Eos # (Auto) 0.6 H Baso # (Auto) 0.1 Abs Immat Gran (auto) 0.35 H Absolute Neuts (auto) 11.2 H Absolute Nucleated RBC 0.000 Nucleated RBC % (auto) 0.0 Smear Tech's Comments VERIFIED ESR PT INR VBG pH VBG pCO2 VBG pO2 VBG HCO3 VBG O2 Saturation VBG Base Excess Sodium Potassium Chloride Carbon Dioxide Anion Gap BUN Creatinine Estim Creat Clear Calc Estimated GFR POC Glucose 157 H 193 H Random Glucose Estimat Average Glucose Hemoglobin A1c % Lactic Acid 1.3 Lactic Acid F/U @ 2Hr Calcium Phosphorus Magnesium Iron TIBC % Saturation Unsat Iron Binding Ferritin Total Bilirubin AST ALT Alkaline Phosphatase C-Reactive Protein Total Protein Albumin Vitamin B12 Folate Urine Color Urine Appearance Urine pH Ur Specific [place] Urine Protein Urine Glucose (UA) Urine Ketones Urine Blood Urine Nitrite Ur Leukocyte Esterase Urine RBC Urine WBC Ur Squamous Epith Cells Urine Bacteria Hyaline Casts Urine Yeast Stool Occult Blood Random Vancomycin Phenytoin Valproic Acid Blood Type Antibody Screen Crossmatch 05/08/24 05/08/24 05/08/24 06:21 08:03 17:06 WBC 15.3 H RBC 2.74 L Hgb 7.9 L Hct 24.7 L MCV 90.1 MCH 28.8 MCHC 32.0 RDW 23.1 H Plt Count TNP MPV TNP Immature Gran % (Auto) 2.4 H Neut % (Auto) 78.0 H Lymph % (Auto) 8.4 L [place] % (Auto) 6.7 Eos % (Auto) 4.0 Baso % (Auto) 0.5 Lymph # (Auto) 1.3 [place] # (Auto) 1.0 Eos # (Auto) 0.6 H Baso # (Auto) 0.1 Abs Immat Gran (auto) 0.37 H Absolute Neuts (auto) 11.9 H Absolute Nucleated RBC 0.000 Nucleated RBC % (auto) 0.0 Smear Tech's Comments ESR PT INR VBG pH VBG pCO2 VBG pO2 VBG HCO3 VBG O2 Saturation VBG Base Excess Sodium 138 Potassium 4.8 Chloride 102 Carbon Dioxide 21 L Anion Gap 20 BUN 63 H Creatinine 5.50 H* Estim Creat Clear Calc 11.1 Estimated GFR 8 POC Glucose 145 H 232 H Random Glucose 163 H Estimat Average Glucose Hemoglobin A1c % Lactic Acid 1.2 Lactic Acid F/U @ 2Hr Calcium 8.0 L Phosphorus 6.3 H Magnesium 1.9 Iron TIBC % Saturation Unsat Iron Binding Ferritin Total Bilirubin AST ALT Alkaline Phosphatase C-Reactive Protein 40.77 H Total Protein Albumin Vitamin B12 Folate Urine Color Urine Appearance Urine pH Ur Specific [place] Urine Protein Urine Glucose (UA) Urine Ketones Urine Blood Urine Nitrite Ur Leukocyte Esterase Urine RBC Urine WBC Ur Squamous Epith Cells Urine Bacteria Hyaline Casts Urine Yeast Stool Occult Blood Random Vancomycin Phenytoin 2.5 L* Valproic Acid 28.1 L Blood Type Antibody Screen Crossmatch 05/08/24 05/08/24 05/08/24 19:02 20:25 21:35 WBC RBC Hgb Hct MCV MCH MCHC RDW Plt Count MPV Immature Gran % (Auto) Neut % (Auto) Lymph % (Auto) [place] % (Auto) Eos % (Auto) Baso % (Auto) Lymph # (Auto) [place] # (Auto) Eos # (Auto) Baso # (Auto) Abs Immat Gran (auto) Absolute Neuts (auto) Absolute Nucleated RBC Nucleated RBC % (auto) Smear Tech's Comments ESR PT INR VBG pH VBG pCO2 VBG pO2 VBG HCO3 VBG O2 Saturation VBG Base Excess Sodium Potassium Chloride Carbon Dioxide Anion Gap BUN Creatinine Estim Creat Clear Calc Estimated GFR POC Glucose 158 H 132 H Random Glucose Estimat Average Glucose Hemoglobin A1c % Lactic Acid Lactic Acid F/U @ 2Hr Calcium Phosphorus Magnesium Iron TIBC % Saturation Unsat Iron Binding Ferritin Total Bilirubin AST ALT Alkaline Phosphatase C-Reactive Protein Total Protein Albumin Vitamin B12 Folate Urine Color Urine Appearance Urine pH Ur Specific [place] Urine Protein Urine Glucose (UA) Urine Ketones Urine Blood Urine Nitrite Ur Leukocyte Esterase Urine RBC Urine WBC Ur Squamous Epith Cells Urine Bacteria Hyaline Casts Urine Yeast Stool Occult Blood Random Vancomycin 11.2 L Phenytoin Valproic Acid Blood Type Antibody Screen Crossmatch 05/09/24 05/09/24 05/09/24 07:10 08:34 08:34 WBC Cancelled 14.1 H RBC Cancelled Hgb Hct MCV MCH MCHC RDW Plt Count MPV Immature Gran % (Auto) Neut % (Auto) Lymph % (Auto) [place] % (Auto) Eos % (Auto) Baso % (Auto) Lymph # (Auto) [place] # (Auto) Eos # (Auto) Baso # (Auto) Abs Immat Gran (auto) Absolute Neuts (auto) Absolute Nucleated RBC Nucleated RBC % (auto) Smear Tech's Comments ESR PT INR VBG pH VBG pCO2 VBG pO2 VBG HCO3 VBG O2 Saturation VBG Base Excess Sodium Potassium Chloride Carbon Dioxide Anion Gap BUN Creatinine Estim Creat Clear Calc Estimated GFR POC Glucose 144 H Random Glucose Estimat Average Glucose Hemoglobin A1c % Lactic Acid Lactic Acid F/U @ 2Hr Calcium Phosphorus Magnesium Iron TIBC % Saturation Unsat Iron Binding Ferritin Total Bilirubin AST ALT Alkaline Phosphatase C-Reactive Protein Total Protein Albumin Vitamin B12 Folate Urine Color Urine Appearance Urine pH Ur Specific [place] Urine Protein Urine Glucose (UA) Urine Ketones Urine Blood Urine Nitrite Ur Leukocyte Esterase Urine RBC Urine WBC Ur Squamous Epith Cells Urine Bacteria Hyaline Casts Urine Yeast Stool Occult Blood Random Vancomycin Phenytoin Valproic Acid Blood Type Antibody Screen Crossmatch 05/09/24 05/09/24 05/09/24 08:34 08:34 08:34 WBC RBC 2.58 L Hgb Cancelled 7.7 L Hct Cancelled 22.5 L MCV Cancelled MCH MCHC RDW Plt Count MPV Immature Gran % (Auto) Neut % (Auto) Lymph % (Auto) [place] % (Auto) Eos % (Auto) Baso % (Auto) Lymph # (Auto) [place] # (Auto) Eos # (Auto) Baso # (Auto) Abs Immat Gran (auto) Absolute Neuts (auto) Absolute Nucleated RBC Nucleated RBC % (auto) Smear Tech's Comments ESR PT INR VBG pH VBG pCO2 VBG pO2 VBG HCO3 VBG O2 Saturation VBG Base Excess Sodium Potassium Chloride Carbon Dioxide Anion Gap BUN Creatinine Estim Creat Clear Calc Estimated GFR POC Glucose Random Glucose Estimat Average Glucose Hemoglobin A1c % Lactic Acid Lactic Acid F/U @ 2Hr Calcium Phosphorus Magnesium Iron TIBC % Saturation Unsat Iron Binding Ferritin Total Bilirubin AST ALT Alkaline Phosphatase C-Reactive Protein Total Protein Albumin Vitamin B12 Folate Urine Color Urine Appearance Urine pH Ur Specific [place] Urine Protein Urine Glucose (UA) Urine Ketones Urine Blood Urine Nitrite Ur Leukocyte Esterase Urine RBC Urine WBC Ur Squamous Epith Cells Urine Bacteria Hyaline Casts Urine Yeast Stool Occult Blood Random Vancomycin Phenytoin Valproic Acid Blood Type Antibody Screen Crossmatch 05/09/24 05/09/24 05/09/24 08:34 08:34 08:34 WBC RBC Hgb Hct MCV 87.2 MCH Cancelled 29.8 MCHC Cancelled 34.2 RDW Cancelled Plt Count MPV Immature Gran % (Auto) Neut % (Auto) Lymph % (Auto) [place] % (Auto) Eos % (Auto) Baso % (Auto) Lymph # (Auto) [place] # (Auto) Eos # (Auto) Baso # (Auto) Abs Immat Gran (auto) Absolute Neuts (auto) Absolute Nucleated RBC Nucleated RBC % (auto) Smear Tech's Comments ESR PT INR VBG pH VBG pCO2 VBG pO2 VBG HCO3 VBG O2 Saturation VBG Base Excess Sodium Potassium Chloride Carbon Dioxide Anion Gap BUN Creatinine Estim Creat Clear Calc Estimated GFR POC Glucose Random Glucose Estimat Average Glucose Hemoglobin A1c % Lactic Acid Lactic Acid F/U @ 2Hr Calcium Phosphorus Magnesium Iron TIBC % Saturation Unsat Iron Binding Ferritin Total Bilirubin AST ALT Alkaline Phosphatase C-Reactive Protein Total Protein Albumin Vitamin B12 Folate Urine Color Urine Appearance Urine pH Ur Specific [place] Urine Protein Urine Glucose (UA) Urine Ketones Urine Blood Urine Nitrite Ur Leukocyte Esterase Urine RBC Urine WBC Ur Squamous Epith Cells Urine Bacteria Hyaline Casts Urine Yeast Stool Occult Blood Random Vancomycin Phenytoin Valproic Acid Blood Type Antibody Screen Crossmatch 05/09/24 05/09/24 05/09/24 08:34 08:34 08:34 WBC RBC Hgb Hct MCV MCH MCHC RDW 22.6 H Plt Count Cancelled TNP MPV Cancelled Not Reportable Immature Gran % (Auto) Cancelled Neut % (Auto) Lymph % (Auto) [place] % (Auto) Eos % (Auto) Baso % (Auto) Lymph # (Auto) [place] # (Auto) Eos # (Auto) Baso # (Auto) Abs Immat Gran (auto) Absolute Neuts (auto) Absolute Nucleated RBC Nucleated RBC % (auto) Smear Tech's Comments ESR PT INR VBG pH VBG pCO2 VBG pO2 VBG HCO3 VBG O2 Saturation VBG Base Excess Sodium Potassium Chloride Carbon Dioxide Anion Gap BUN Creatinine Estim Creat Clear Calc Estimated GFR POC Glucose Random Glucose Estimat Average Glucose Hemoglobin A1c % Lactic Acid Lactic Acid F/U @ 2Hr Calcium Phosphorus Magnesium Iron TIBC % Saturation Unsat Iron Binding Ferritin Total Bilirubin AST ALT Alkaline Phosphatase C-Reactive Protein Total Protein Albumin Vitamin B12 Folate Urine Color Urine Appearance Urine pH Ur Specific [place] Urine Protein Urine Glucose (UA) Urine Ketones Urine Blood Urine Nitrite Ur Leukocyte Esterase Urine RBC Urine WBC Ur Squamous Epith Cells Urine Bacteria Hyaline Casts Urine Yeast Stool Occult Blood Random Vancomycin Phenytoin Valproic Acid Blood Type Antibody Screen Crossmatch 05/09/24 05/09/24 05/09/24 08:34 08:34 08:34 WBC RBC Hgb Hct MCV MCH MCHC RDW Plt Count MPV Immature Gran % (Auto) 3.9 H Neut % (Auto) Cancelled 76.3 H Lymph % (Auto) Cancelled 8.5 L [place] % (Auto) Cancelled Eos % (Auto) Baso % (Auto) Lymph # (Auto) [place] # (Auto) Eos # (Auto) Baso # (Auto) Abs Immat Gran (auto) Absolute Neuts (auto) Absolute Nucleated RBC Nucleated RBC % (auto) Smear Tech's Comments ESR PT INR VBG pH VBG pCO2 VBG pO2 VBG HCO3 VBG O2 Saturation VBG Base Excess Sodium Potassium Chloride Carbon Dioxide Anion Gap BUN Creatinine Estim Creat Clear Calc Estimated GFR POC Glucose Random Glucose Estimat Average Glucose Hemoglobin A1c % Lactic Acid Lactic Acid F/U @ 2Hr Calcium Phosphorus Magnesium Iron TIBC % Saturation Unsat Iron Binding Ferritin Total Bilirubin AST ALT Alkaline Phosphatase C-Reactive Protein Total Protein Albumin Vitamin B12 Folate Urine Color Urine Appearance Urine pH Ur Specific [place] Urine Protein Urine Glucose (UA) Urine Ketones Urine Blood Urine Nitrite Ur Leukocyte Esterase Urine RBC Urine WBC Ur Squamous Epith Cells Urine Bacteria Hyaline Casts Urine Yeast Stool Occult Blood Random Vancomycin Phenytoin Valproic Acid Blood Type Antibody Screen Crossmatch 05/09/24 05/09/24 05/09/24 08:34 08:34 08:34 WBC RBC Hgb Hct MCV MCH MCHC RDW Plt Count MPV Immature Gran % (Auto) Neut % (Auto) Lymph % (Auto) [place] % (Auto) 7.1 Eos % (Auto) Cancelled 3.6 Baso % (Auto) Cancelled 0.6 Lymph # (Auto) Cancelled [place] # (Auto) Eos # (Auto) Baso # (Auto) Abs Immat Gran (auto) Absolute Neuts (auto) Absolute Nucleated RBC Nucleated RBC % (auto) Smear Tech's Comments ESR PT INR VBG pH VBG pCO2 VBG pO2 VBG HCO3 VBG O2 Saturation VBG Base Excess Sodium Potassium Chloride Carbon Dioxide Anion Gap BUN Creatinine Estim Creat Clear Calc Estimated GFR POC Glucose Random Glucose Estimat Average Glucose Hemoglobin A1c % Lactic Acid Lactic Acid F/U @ 2Hr Calcium Phosphorus Magnesium Iron TIBC % Saturation Unsat Iron Binding Ferritin Total Bilirubin AST ALT Alkaline Phosphatase C-Reactive Protein Total Protein Albumin Vitamin B12 Folate Urine Color Urine Appearance Urine pH Ur Specific [place] Urine Protein Urine Glucose (UA) Urine Ketones Urine Blood Urine Nitrite Ur Leukocyte Esterase Urine RBC Urine WBC Ur Squamous Epith Cells Urine Bacteria Hyaline Casts Urine Yeast Stool Occult Blood Random Vancomycin Phenytoin Valproic Acid Blood Type Antibody Screen Crossmatch 05/09/24 05/09/24 05/09/24 08:34 08:34 08:34 WBC RBC Hgb Hct MCV MCH MCHC RDW Plt Count MPV Immature Gran % (Auto) Neut % (Auto) Lymph % (Auto) [place] % (Auto) Eos % (Auto) Baso % (Auto) Lymph # (Auto) 1.2 [place] # (Auto) Cancelled 1.0 Eos # (Auto) Cancelled 0.5 H Baso # (Auto) Cancelled Abs Immat Gran (auto) Absolute Neuts (auto) Absolute Nucleated RBC Nucleated RBC % (auto) Smear Tech's Comments ESR PT INR VBG pH VBG pCO2 VBG pO2 VBG HCO3 VBG O2 Saturation VBG Base Excess Sodium Potassium Chloride Carbon Dioxide Anion Gap BUN Creatinine Estim Creat Clear Calc Estimated GFR POC Glucose Random Glucose Estimat Average Glucose Hemoglobin A1c % Lactic Acid Lactic Acid F/U @ 2Hr Calcium Phosphorus Magnesium Iron TIBC % Saturation Unsat Iron Binding Ferritin Total Bilirubin AST ALT Alkaline Phosphatase C-Reactive Protein Total Protein Albumin Vitamin B12 Folate Urine Color Urine Appearance Urine pH Ur Specific [place] Urine Protein Urine Glucose (UA) Urine Ketones Urine Blood Urine Nitrite Ur Leukocyte Esterase Urine RBC Urine WBC Ur Squamous Epith Cells Urine Bacteria Hyaline Casts Urine Yeast Stool Occult Blood Random Vancomycin Phenytoin Valproic Acid Blood Type Antibody Screen Crossmatch 05/09/24 05/09/24 05/09/24 08:34 08:34 08:34 WBC RBC Hgb Hct MCV MCH MCHC RDW Plt Count MPV Immature Gran % (Auto) Neut % (Auto) Lymph % (Auto) [place] % (Auto) Eos % (Auto) Baso % (Auto) Lymph # (Auto) [place] # (Auto) Eos # (Auto) Baso # (Auto) 0.1 Abs Immat Gran (auto) Cancelled 0.55 H Absolute Neuts (auto) Cancelled 10.7 H Absolute Nucleated RBC Cancelled Nucleated RBC % (auto) Smear Tech's Comments ESR PT INR VBG pH VBG pCO2 VBG pO2 VBG HCO3 VBG O2 Saturation VBG Base Excess Sodium Potassium Chloride Carbon Dioxide Anion Gap BUN Creatinine Estim Creat Clear Calc Estimated GFR POC Glucose Random Glucose Estimat Average Glucose Hemoglobin A1c % Lactic Acid Lactic Acid F/U @ 2Hr Calcium Phosphorus Magnesium Iron TIBC % Saturation Unsat Iron Binding Ferritin Total Bilirubin AST ALT Alkaline Phosphatase C-Reactive Protein Total Protein Albumin Vitamin B12 Folate Urine Color Urine Appearance Urine pH Ur Specific [place] Urine Protein Urine Glucose (UA) Urine Ketones Urine Blood Urine Nitrite Ur Leukocyte Esterase Urine RBC Urine WBC Ur Squamous Epith Cells Urine Bacteria Hyaline Casts Urine Yeast Stool Occult Blood Random Vancomycin Phenytoin Valproic Acid Blood Type Antibody Screen Crossmatch 05/09/24 05/09/24 05/09/24 08:34 08:34 08:34 WBC RBC Hgb Hct MCV MCH MCHC RDW Plt Count MPV Immature Gran % (Auto) Neut % (Auto) Lymph % (Auto) [place] % (Auto) Eos % (Auto) Baso % (Auto) Lymph # (Auto) [place] # (Auto) Eos # (Auto) Baso # (Auto) Abs Immat Gran (auto) Absolute Neuts (auto) Absolute Nucleated RBC 0.000 Nucleated RBC % (auto) Cancelled 0.0 Smear Tech's Comments VERIFIED ESR PT 12.4 INR 1.1 VBG pH VBG pCO2 VBG pO2 VBG HCO3 VBG O2 Saturation VBG Base Excess Sodium 139 Cancelled Potassium 4.2 Chloride Carbon Dioxide Anion Gap BUN Creatinine Estim Creat Clear Calc Estimated GFR POC Glucose Random Glucose Estimat Average Glucose Hemoglobin A1c % Lactic Acid Lactic Acid F/U @ 2Hr Calcium Phosphorus Magnesium Iron TIBC % Saturation Unsat Iron Binding Ferritin Total Bilirubin AST ALT Alkaline Phosphatase C-Reactive Protein Total Protein Albumin Vitamin B12 Folate Urine Color Urine Appearance Urine pH Ur Specific [place] Urine Protein Urine Glucose (UA) Urine Ketones Urine Blood Urine Nitrite Ur Leukocyte Esterase Urine RBC Urine WBC Ur Squamous Epith Cells Urine Bacteria Hyaline Casts Urine Yeast Stool Occult Blood Random Vancomycin Phenytoin Valproic Acid Blood Type Antibody Screen Crossmatch 05/09/24 05/09/24 05/09/24 08:34 08:34 08:34 WBC RBC Hgb Hct MCV MCH MCHC RDW Plt Count MPV Immature Gran % (Auto) Neut % (Auto) Lymph % (Auto) [place] % (Auto) Eos % (Auto) Baso % (Auto) Lymph # (Auto) [place] # (Auto) Eos # (Auto) Baso # (Auto) Abs Immat Gran (auto) Absolute Neuts (auto) Absolute Nucleated RBC Nucleated RBC % (auto) Smear Tech's Comments ESR PT INR VBG pH VBG pCO2 VBG pO2 VBG HCO3 VBG O2 Saturation VBG Base Excess Sodium Potassium Cancelled Chloride 104 Cancelled Carbon Dioxide 25 Cancelled Anion Gap 14 BUN Creatinine Estim Creat Clear Calc Estimated GFR POC Glucose Random Glucose Estimat Average Glucose Hemoglobin A1c % Lactic Acid Lactic Acid F/U @ 2Hr Calcium Phosphorus Magnesium Iron TIBC % Saturation Unsat Iron Binding Ferritin Total Bilirubin AST ALT Alkaline Phosphatase C-Reactive Protein Total Protein Albumin Vitamin B12 Folate Urine Color Urine Appearance Urine pH Ur Specific [place] Urine Protein Urine Glucose (UA) Urine Ketones Urine Blood Urine Nitrite Ur Leukocyte Esterase Urine RBC Urine WBC Ur Squamous Epith Cells Urine Bacteria Hyaline Casts Urine Yeast Stool Occult Blood Random Vancomycin Phenytoin Valproic Acid Blood Type Antibody Screen Crossmatch 05/09/24 05/09/24 05/09/24 08:34 08:34 08:34 WBC RBC Hgb Hct MCV MCH MCHC RDW Plt Count MPV Immature Gran % (Auto) Neut % (Auto) Lymph % (Auto) [place] % (Auto) Eos % (Auto) Baso % (Auto) Lymph # (Auto) [place] # (Auto) Eos # (Auto) Baso # (Auto) Abs Immat Gran (auto) Absolute Neuts (auto) Absolute Nucleated RBC Nucleated RBC % (auto) Smear Tech's Comments ESR PT INR VBG pH VBG pCO2 VBG pO2 VBG HCO3 VBG O2 Saturation VBG Base Excess Sodium Potassium Chloride Carbon Dioxide Anion Gap Cancelled BUN 44 H Cancelled Creatinine 4.07 H* Cancelled Estim Creat Clear Calc 15.0 Estimated GFR POC Glucose Random Glucose Estimat Average Glucose Hemoglobin A1c % Lactic Acid Lactic Acid F/U @ 2Hr Calcium Phosphorus Magnesium Iron TIBC % Saturation Unsat Iron Binding Ferritin Total Bilirubin AST ALT Alkaline Phosphatase C-Reactive Protein Total Protein Albumin Vitamin B12 Folate Urine Color Urine Appearance Urine pH Ur Specific [place] Urine Protein Urine Glucose (UA) Urine Ketones Urine Blood Urine Nitrite Ur Leukocyte Esterase Urine RBC Urine WBC Ur Squamous Epith Cells Urine Bacteria Hyaline Casts Urine Yeast Stool Occult Blood Random Vancomycin Phenytoin Valproic Acid Blood Type Antibody Screen Crossmatch 05/09/24 05/09/24 05/09/24 08:34 08:34 08:34 WBC RBC Hgb Hct MCV MCH MCHC RDW Plt Count MPV Immature Gran % (Auto) Neut % (Auto) Lymph % (Auto) [place] % (Auto) Eos % (Auto) Baso % (Auto) Lymph # (Auto) [place] # (Auto) Eos # (Auto) Baso # (Auto) Abs Immat Gran (auto) Absolute Neuts (auto) Absolute Nucleated RBC Nucleated RBC % (auto) Smear Tech's Comments ESR PT INR VBG pH VBG pCO2 VBG pO2 VBG HCO3 VBG O2 Saturation VBG Base Excess Sodium Potassium Chloride Carbon Dioxide Anion Gap BUN Creatinine Estim Creat Clear Calc Cancelled Estimated GFR 11 Cancelled POC Glucose Random Glucose 141 H Cancelled Estimat Average Glucose Hemoglobin A1c % Lactic Acid Lactic Acid F/U @ 2Hr Calcium 7.9 L Phosphorus Magnesium Iron TIBC % Saturation Unsat Iron Binding Ferritin Total Bilirubin AST ALT Alkaline Phosphatase C-Reactive Protein Total Protein Albumin Vitamin B12 Folate Urine Color Urine Appearance Urine pH Ur Specific [place] Urine Protein Urine Glucose (UA) Urine Ketones Urine Blood Urine Nitrite Ur Leukocyte Esterase Urine RBC Urine WBC Ur Squamous Epith Cells Urine Bacteria Hyaline Casts Urine Yeast Stool Occult Blood Random Vancomycin Phenytoin Valproic Acid Blood Type Antibody Screen Crossmatch 0305/09/24 05/09/24 08:34 08:34 08:48 WBC RBC Hgb Hct MCV MCH MCHC RDW Plt Count MPV Immature Gran % (Auto) Neut % (Auto) Lymph % (Auto) [place] % (Auto) Eos % (Auto) Baso % (Auto) Lymph # (Auto) [place] # (Auto) Eos # (Auto) Baso # (Auto) Abs Immat Gran (auto) Absolute Neuts (auto) Absolute Nucleated RBC Nucleated RBC % (auto) Smear Tech's Comments ESR PT INR VBG pH 7.47 H VBG pCO2 38 VBG pO2 78 VBG HCO3 28 H VBG O2 Saturation 97.0 VBG Base Excess 4.4 Sodium Potassium Chloride Carbon Dioxide Anion Gap BUN Creatinine Estim Creat Clear Calc Estimated GFR POC Glucose Random Glucose Estimat Average Glucose Hemoglobin A1c % Lactic Acid Lactic Acid F/U @ 2Hr Calcium Cancelled Phosphorus 4.9 H Magnesium 1.8 Cancelled Iron TIBC % Saturation Unsat Iron Binding Ferritin Total Bilirubin AST ALT Alkaline Phosphatase C-Reactive Protein Total Protein Albumin Vitamin B12 Folate Urine Color Urine Appearance Urine pH Ur Specific [place] Urine Protein Urine Glucose (UA) Urine Ketones Urine Blood Urine Nitrite Ur Leukocyte Esterase Urine RBC Urine WBC Ur Squamous Epith Cells Urine Bacteria Hyaline Casts Urine Yeast Stool Occult Blood Random Vancomycin Phenytoin Valproic Acid Blood Type Antibody Screen Crossmatch 05/09/24 10:50 WBC RBC Hgb Hct MCV MCH MCHC RDW Plt Count MPV Immature Gran % (Auto) Neut % (Auto) Lymph % (Auto) [place] % (Auto) Eos % (Auto) Baso % (Auto) Lymph # (Auto) [place] # (Auto) Eos # (Auto) Baso # (Auto) Abs Immat Gran (auto) Absolute Neuts (auto) Absolute Nucleated RBC Nucleated RBC % (auto) Smear Tech's Comments ESR PT INR VBG pH VBG pCO2 VBG pO2 VBG HCO3 VBG O2 Saturation VBG Base Excess Sodium Potassium Chloride Carbon Dioxide Anion Gap BUN Creatinine Estim Creat Clear Calc Estimated GFR POC Glucose 126 H Random Glucose Estimat Average Glucose Hemoglobin A1c % Lactic Acid Lactic Acid F/U @ 2Hr Calcium Phosphorus Magnesium Iron TIBC % Saturation Unsat Iron Binding Ferritin Total Bilirubin AST ALT Alkaline Phosphatase C-Reactive Protein Total Protein Albumin Vitamin B12 Folate Urine Color Urine Appearance Urine pH Ur Specific [place] Urine Protein Urine Glucose (UA) Urine Ketones Urine Blood Urine Nitrite Ur Leukocyte Esterase Urine RBC Urine WBC Ur Squamous Epith Cells Urine Bacteria Hyaline Casts Urine Yeast Stool Occult Blood Random Vancomycin Phenytoin Valproic Acid Blood Type Antibody Screen Crossmatch Airway Mallampati Class: III TM Dist: >3cm Neck ROM: Full Denture: Upper and Lower Assessment and Plan Assessment Anesthesia Assessment: Anesthesia Plan Discussed and Chart Reviewed Final Anesthetic Review Family History of Problems with Anesthesia: No History of Problems with Anesthesia: No NPO: Yes ASA Class: IV and Emergency Final Preanesthetic Review: No Changes in Pt Med Stat, Meds/Allgs Chart Reviewed, Consent Obtained/Reviewed and Anes Risks/Benef Reviewed Patient Risk: High Procedure Risk: Low Anesthetic Plan Anesthetic Plan: GA Disposition: Standard PACU
--- NOTE | 2024-05-09 14:44 | MHC.SHP ---
Pre-Procedural Eval Section A - 24 Hr Update-Section A only Date of Service: 05/09/24 The patient is an INPATIENT: Yes Changes since office visit: No Cold of Flu in the past 2 weeks, No New Medical Problems, No Changes in Medication and No Patient answered all questions The patient has been examined within 24 hours of the surgical procedure. The History & Physical has been completed within 30 days and I have reviewed it.: Yes Section B - Complete if H&P > 30 days Chief Complaint: Subdural Hematoma Cellulitis Allergies: Allergies Allergy/AdvReac Type Severity Reaction Status Date / Time Egg Derived Allergy Unknown Verified 05/04/24 01:05 Plan I have reviewed the history and physical and performed a pertinent physical examination on my patient. No changes have occurred unless specified. Time Spent With Patient Time: Total time managing care of this patient today ____ minutes.
[2024-05-09 15:06] LABS: Glucose, Whole Blood 117 mg/dL (60-115)
--- NOTE | 2024-05-09 15:28 | W.PM.OPN ---
Operative Note Operative Note Date of Service: 05/09/24 Narrative: Preop diagnosis: Eschar on the right heel, eschar on the left thigh Postop diagnosis: The same, with thick eschar involving full-thickness of the skin and subcutaneous tissue Procedure: Excisional debridement, eschar on the right heel, area about 6 x 5 cm; excisional debridement, scar on the left thigh, about 2 x 3 cm; the ulcer on the left heel this seems to involve the calcaneus Surgeon: Jeffry Vines MD The patient is a 68 year old female, diabetic, with incisional disease, with a thick eschar on the right heel with some cellulitic changes and discharge. She also has this areas of eschar on the left thigh. I explained to the daughter the technique of excisional debridement of this eschars as well as the risks, benefits, and alternatives and she had given consent. The patient was brought to the operating room and was placed under monitored anesthesia care. The left heel area was prepped and draped in the usual sterile fashion. A surgical time-out was done. The patient was on scheduled IV antibiotics I proceeded to use the curved Barraza scissors as well as the blade 15 to excise the thick eschar and this involved the full-thickness of the skin as well as thick subcutaneous fat this seemed to extend all the way to the surface of the calcaneus. The area excised was about 6 x 5 cm. Hemostasis was achieved with electrocautery I then applied wet-to-dry dressings and wrapped the heel in the foot with Kerlix roll I then proceeded to prepped and draped in the area of the scar on the left thigh. Again, I used a blade 15. As well as curved Barraza scissors to excise eschar which involved the full-thickness of the skin and subcutaneous fat. This measured about 2 x 3 cm. I used electrocautery achieved hemostasis on the edges. Once hemostasis was confirmed, I applied wet-to-dry dressings as well Procedure was completed. The patient tolerated procedure well. There were no immediate complications. There was minimal blood loss. The patient was then transferred to the recovery room with stable vital signs.
--- NOTE | 2024-05-09 15:58 | PM.EVENT ---
Event Note Date of Service: 05/09/24 Event Note: Seen postop She underwent excisional debridement of right heel ulcer and left thigh wound earlier Dressings dry She seems to have good pain control Plan daily wet-to-dry dressings for now and possibly Santyl down the line Has multiple medical problems Daughter updated by phone Time Spent With Patient Time: Total time managing care of this patient today ____ minutes.
[2024-05-09] MEDS: fentaNYL citrate/PF 100 MCG/2 ML VIAL 25 MCG IVPUSH (16:02)
[2024-05-09 16:54] LABS: Glucose, Whole Blood 110 mg/dL (60-115)
--- NOTE | 2024-05-09 16:56 | P.PNIM_ITS ---
Subjective Subjective Date of Service: 05/09/24 Interval History: Patient was very anxious and crying this morning. Complaining of generalized body pain. Physical Exam 2 Vital Signs: Vital Signs: Last Vital Signs Temp 97.5 F 05/09/24 16:16 Pulse 82 05/09/24 16:16 Resp 16 05/09/24 16:16 BP 146/50 H 05/09/24 16:16 Pulse Ox 97 05/09/24 16:16 O2 Del Method Room Air 05/09/24 16:16 O2 Flow Rate 6 05/09/24 16:16 BMI result Body Mass Index 41.3 Constitutional - Awake, somewhat lethargic. Looks uncomfortable due to pain. Obese. Cooperative. HEENT - PERRL, EOMI. Dry oral mucosa. Heart - S1S2, RRR, No murmurs Lungs - Normal lung expansion, Normal respiratory effort, No respiratory distress, CTA bilaterally Abdomen - NT / ND; +BS; No rebound or guarding Extremities - Right foot/heel eschar noted. Left foot: Dressing in place and clean. Skin - Warm/Dry Neurological - Alert & oriented x3. No focal weakness grossly noted. No focal weakness grossly noted. Psychological - Depressed affect Objective Data Active Medications Acetaminophen (Acetaminophen 325 Mg Tablet) 650 mg PO Q6H PRN PRN Reason: Pain, Mild 1-3,fever,headache Last Admin: 05/08/24 22:48 Dose: 650 mg Documented By: AMANDA Atorvastatin Calcium (Atorvastatin Calcium 80 Mg Tablet) 80 mg PO DAILY KATHERINE Last Admin: 05/09/24 08:37 Dose: 80 mg Documented By: DEEPALI Calcium Carbonate (Calcium Carbonate 750 Mg Tab.Chew) 750 mg PO Q4H PRN PRN Reason: Heartburn Dextrose (Dextrose 50 % 25 Gm/50 Ml Syringe) 25 gm IVPUSH Q15M PRN; Protocol PRN Reason: per Hypoglycemia Standing Ord. Fentanyl (Fentanyl Citrate/Pf 100 Mcg/2 Ml Vial) 25 mcg IVPUSH ONCE PRN PRN Reason: Pain, Severe (Pain Scale 7-10) Last Admin: 05/09/24 16:02 Dose: 25 mcg Documented By: SONNYGELJuan Fentanyl (Fentanyl Citrate/Pf 100 Mcg/2 Ml Vial) 25 mcg IVPUSH Q5M PRN PRN Reason: Pain, Moderate to Severe (Pain Scale 4-10) Stop: 05/09/24 22:23 Ferrous Sulfate (Ferrous Sulfate 324 Mg Tablet.) 324 mg PO DAILY [facility] Last Admin: 05/09/24 08:37 Dose: 324 mg Documented By: DEEPALI Folic Acid (Folic Acid 1 Mg Tablet) 1 mg PO DAILY [facility] Last Admin: 05/09/24 08:37 Dose: 1 mg Documented By: DEEPALI Furosemide (Furosemide 40 Mg Tablet) 80 mg PO BID [facility]; Protocol Last Admin: 05/09/24 08:36 Dose: 80 mg Documented By: DEEPALI Gabapentin (Gabapentin 100 Mg Capsule) 200 mg PO DAILY [facility] Last Admin: 05/09/24 08:37 Dose: 200 mg Documented By: DEEPALI Gabapentin (Gabapentin 300 Mg Capsule) 300 mg PO MOWEFR@1800 [facility] Last Admin: 05/08/24 17:48 Dose: 300 mg Documented By: JAROCHO Glucose (Glucose Gel 15 Gm Gel..Gram.) 15 gm PO Q15M PRN; Protocol PRN Reason: per Hypoglycemia Standing Ord. Vancomycin HCl 500 mg/ Sodium (Chloride) 110 mls @ 110 mls/hr IV ONCE ONE Stop: 05/04/24 13:44 Piperacillin Sod/Tazobactam (Sod 2.25 gm/ Sodium Chloride) 50 mls @ 100 mls/hr IV Q12H [facility] Last Infusion: 05/09/24 14:41 Dose: Infused Documented By: DEEPALI Insulin Glargine (Insulin Glargine,Hum.Rec.Anlog 100 Unit/Ml 10 Ml Vial) 21 unit SUBCUT BEDTIME [facility] Last Admin: 05/04/24 20:38 Dose: 21 unit Documented By: FAHAD Insulin Human Lispro (Insulin Lispro 100 Unit/Ml 3 Ml Vial) 0 unit SUBCUT QIDACHS [facility]; Protocol Last Admin: 05/09/24 16:54 Dose: Not Given Documented By: DEEPALI Non-Admin Reason: No Insulin Coverage Labetalol HCl (Labetalol Hcl 100 Mg/20 Ml Vial) 5 mg IVPUSH ONCE PRN PRN Reason: SBP > 160 Levetiracetam (Levetiracetam 500 Mg Tablet) 500 mg PO MOWEFR@1800 [facility] Last Admin: 05/08/24 17:47 Dose: 500 mg Documented By: JAROCHO Lorazepam (Lorazepam 0.5 Mg Tablet) 0.5 mg PO DAILY PRN PRN Reason: anxiety Last Admin: 05/06/24 09:21 Dose: 0.5 mg Documented By: NIGHAT Magnesium Hydroxide (Milk Of Magnesia 30 Ml Oral.Susp) 30 ml PO DAILY PRN PRN Reason: Constipation Melatonin (Melatonin 3 Mg Tablet) 6 mg PO BEDTIME PRN PRN Reason: Insomnia Last Admin: 05/07/24 02:27 Dose: 6 mg Documented By: CONSTANTIN Naloxone HCl (Naloxone Hcl 0.4 Mg/Ml Vial) 0.04 mg IVPUSH Q5M PRN PRN Reason: Excessive sedation or RR < 8 Naloxone HCl (Naloxone Hcl 0.4 Mg/Ml Vial) 0.04 mg IVPUSH Q5M PRN PRN Reason: Excessive sedation or RR < 8 Omeprazole (Omeprazole 40 Mg Capsule.Dr) 40 mg PO BID@0630,1630 [facility] Last Admin: 05/09/24 05:25 Dose: Not Given Documented By: PAXTON Non-Admin Reason: NPO Ondansetron HCl (Ondansetron Hcl 4 Mg/2 Ml Vial) 4 mg IVPUSH ONCE PRN PRN Reason: Nausea and Vomiting Stop: 05/09/24 22:24 Oxycodone HCl (Oxycodone Hcl Immed Release 5 Mg Tablet) 5 mg PO Q4H PRN PRN Reason: Pain, Moderate(Pain Scale 4-6) Pharmacy Consult (Consult Rx Vancomycin Dosing) 1 each MISCELLANE DAILY PRN PRN Reason: Consult order Phenytoin Sodium (Phenytoin Sodium Extended 100 Mg Capsule) 100 mg PO TID [facility] Last Admin: 05/09/24 13:50 Dose: 100 mg Documented By: DEEPALI Sertraline HCl (Sertraline Hcl 100 Mg Tablet) 100 mg PO DAILY [facility] Last Admin: 05/09/24 08:37 Dose: 100 mg Documented By: DEEPALI Sodium Chloride (0.9 % Sodium Chloride Flush 3 Ml Syringe) 3 ml IVFLUSH QSHIFT [facility] Last Admin: 05/09/24 15:43 Dose: Not Given Documented By: DEEPALI Non-Admin Reason: IV Running Trazodone HCl (Trazodone Hcl 100 Mg Tablet) 100 mg PO BEDTIME PRN PRN Reason: Sleep Last Admin: 05/07/24 20:05 Dose: 100 mg Documented By: DOUGLAS Valproic Acid (Valproic Acid 250 Mg Capsule) 1,000 mg PO BID [facility] Last Admin: 05/09/24 08:37 Dose: 1,000 mg Documented By: DEEPALI Vitamin D (Cholecalciferol (Vitamin D3) 25 Mcg Tablet) 50 mcg PO DAILY [facility] Last Admin: 05/09/24 08:37 Dose: 50 mcg Documented By: DEEPALI Labs 05/09/24 08:34 05/09/24 08:34 Labs: Laboratory Results - last 24 hr 05/08/24 05/08/24 05/08/24 17:06 19:02 20:25 MCV MCH MCHC RDW Plt Count MPV Immature Gran % (Auto) Neut % (Auto) Lymph % (Auto) [place] % (Auto) Eos % (Auto) Baso % (Auto) Lymph # (Auto) [place] # (Auto) Eos # (Auto) Baso # (Auto) Abs Immat Gran (auto) Absolute Neuts (auto) Absolute Nucleated RBC Nucleated RBC % (auto) Smear Tech's Comments PT INR VBG pH VBG pCO2 VBG pO2 VBG HCO3 VBG O2 Saturation VBG Base Excess Anion Gap Estim Creat Clear Calc Estimated GFR POC Glucose 232 H 158 H Random Glucose Calcium Phosphorus Magnesium Random Vancomycin 11.2 L 05/08/24 05/09/24 05/09/24 21:35 07:10 08:34 MCV Cancelled MCH MCHC RDW Plt Count MPV Immature Gran % (Auto) Neut % (Auto) Lymph % (Auto) [place] % (Auto) Eos % (Auto) Baso % (Auto) Lymph # (Auto) [place] # (Auto) Eos # (Auto) Baso # (Auto) Abs Immat Gran (auto) Absolute Neuts (auto) Absolute Nucleated RBC Nucleated RBC % (auto) Smear Tech's Comments PT INR VBG pH VBG pCO2 VBG pO2 VBG HCO3 VBG O2 Saturation VBG Base Excess Anion Gap Estim Creat Clear Calc Estimated GFR POC Glucose 132 H 144 H Random Glucose Calcium Phosphorus Magnesium Random Vancomycin 05/09/24 05/09/24 05/09/24 08:34 08:34 08:34 MCV 87.2 MCH Cancelled 29.8 MCHC Cancelled 34.2 RDW Cancelled Plt Count MPV Immature Gran % (Auto) Neut % (Auto) Lymph % (Auto) [place] % (Auto) Eos % (Auto) Baso % (Auto) Lymph # (Auto) [place] # (Auto) Eos # (Auto) Baso # (Auto) Abs Immat Gran (auto) Absolute Neuts (auto) Absolute Nucleated RBC Nucleated RBC % (auto) Smear Tech's Comments PT INR VBG pH VBG pCO2 VBG pO2 VBG HCO3 VBG O2 Saturation VBG Base Excess Anion Gap Estim Creat Clear Calc Estimated GFR POC Glucose Random Glucose Calcium Phosphorus Magnesium Random Vancomycin 05/09/24 05/09/24 05/09/24 08:34 08:34 08:34 MCV MCH MCHC RDW 22.6 H Plt Count Cancelled TNP MPV Cancelled Not Reportable Immature Gran % (Auto) Cancelled Neut % (Auto) Lymph % (Auto) [place] % (Auto) Eos % (Auto) Baso % (Auto) Lymph # (Auto) [place] # (Auto) Eos # (Auto) Baso # (Auto) Abs Immat Gran (auto) Absolute Neuts (auto) Absolute Nucleated RBC Nucleated RBC % (auto) Smear Tech's Comments PT INR VBG pH VBG pCO2 VBG pO2 VBG HCO3 VBG O2 Saturation VBG Base Excess Anion Gap Estim Creat Clear Calc Estimated GFR POC Glucose Random Glucose Calcium Phosphorus Magnesium Random Vancomycin 05/09/24 05/09/24 05/09/24 08:34 08:34 08:34 MCV MCH MCHC RDW Plt Count MPV Immature Gran % (Auto) 3.9 H Neut % (Auto) Cancelled 76.3 H Lymph % (Auto) Cancelled 8.5 L [place] % (Auto) Cancelled Eos % (Auto) Baso % (Auto) Lymph # (Auto) [place] # (Auto) Eos # (Auto) Baso # (Auto) Abs Immat Gran (auto) Absolute Neuts (auto) Absolute Nucleated RBC Nucleated RBC % (auto) Smear Tech's Comments PT INR VBG pH VBG pCO2 VBG pO2 VBG HCO3 VBG O2 Saturation VBG Base Excess Anion Gap Estim Creat Clear Calc Estimated GFR POC Glucose Random Glucose Calcium Phosphorus Magnesium Random Vancomycin 05/09/24 05/09/24 05/09/24 08:34 08:34 08:34 MCV MCH MCHC RDW Plt Count MPV Immature Gran % (Auto) Neut % (Auto) Lymph % (Auto) [place] % (Auto) 7.1 Eos % (Auto) Cancelled 3.6 Baso % (Auto) Cancelled 0.6 Lymph # (Auto) Cancelled [place] # (Auto) Eos # (Auto) Baso # (Auto) Abs Immat Gran (auto) Absolute Neuts (auto) Absolute Nucleated RBC Nucleated RBC % (auto) Smear Tech's Comments PT INR VBG pH VBG pCO2 VBG pO2 VBG HCO3 VBG O2 Saturation VBG Base Excess Anion Gap Estim Creat Clear Calc Estimated GFR POC Glucose Random Glucose Calcium Phosphorus Magnesium Random Vancomycin 05/09/24 05/09/24 05/09/24 08:34 08:34 08:34 MCV MCH MCHC RDW Plt Count MPV Immature Gran % (Auto) Neut % (Auto) Lymph % (Auto) [place] % (Auto) Eos % (Auto) Baso % (Auto) Lymph # (Auto) 1.2 [place] # (Auto) Cancelled 1.0 Eos # (Auto) Cancelled 0.5 H Baso # (Auto) Cancelled Abs Immat Gran (auto) Absolute Neuts (auto) Absolute Nucleated RBC Nucleated RBC % (auto) Smear Tech's Comments PT INR VBG pH VBG pCO2 VBG pO2 VBG HCO3 VBG O2 Saturation VBG Base Excess Anion Gap Estim Creat Clear Calc Estimated GFR POC Glucose Random Glucose Calcium Phosphorus Magnesium Random Vancomycin 05/09/24 05/09/24 05/09/24 08:34 08:34 08:34 MCV MCH MCHC RDW Plt Count MPV Immature Gran % (Auto) Neut % (Auto) Lymph % (Auto) [place] % (Auto) Eos % (Auto) Baso % (Auto) Lymph # (Auto) [place] # (Auto) Eos # (Auto) Baso # (Auto) 0.1 Abs Immat Gran (auto) Cancelled 0.55 H Absolute Neuts (auto) Cancelled 10.7 H Absolute Nucleated RBC Cancelled Nucleated RBC % (auto) Smear Tech's Comments PT INR VBG pH VBG pCO2 VBG pO2 VBG HCO3 VBG O2 Saturation VBG Base Excess Anion Gap Estim Creat Clear Calc Estimated GFR POC Glucose Random Glucose Calcium Phosphorus Magnesium Random Vancomycin 05/09/24 05/09/24 05/09/24 08:34 08:34 08:34 MCV MCH MCHC RDW Plt Count MPV Immature Gran % (Auto) Neut % (Auto) Lymph % (Auto) [place] % (Auto) Eos % (Auto) Baso % (Auto) Lymph # (Auto) [place] # (Auto) Eos # (Auto) Baso # (Auto) Abs Immat Gran (auto) Absolute Neuts (auto) Absolute Nucleated RBC 0.000 Nucleated RBC % (auto) Cancelled 0.0 Smear Tech's Comments VERIFIED PT 12.4 INR 1.1 VBG pH VBG pCO2 VBG pO2 VBG HCO3 VBG O2 Saturation VBG Base Excess Anion Gap 14 Cancelled Estim Creat Clear Calc 15.0 Estimated GFR POC Glucose Random Glucose Calcium Phosphorus Magnesium Random Vancomycin 05/09/24 05/09/24 05/09/24 08:34 08:34 08:34 MCV MCH MCHC RDW Plt Count MPV Immature Gran % (Auto) Neut % (Auto) Lymph % (Auto) [place] % (Auto) Eos % (Auto) Baso % (Auto) Lymph # (Auto) [place] # (Auto) Eos # (Auto) Baso # (Auto) Abs Immat Gran (auto) Absolute Neuts (auto) Absolute Nucleated RBC Nucleated RBC % (auto) Smear Tech's Comments PT INR VBG pH VBG pCO2 VBG pO2 VBG HCO3 VBG O2 Saturation VBG Base Excess Anion Gap Estim Creat Clear Calc Cancelled Estimated GFR 11 Cancelled POC Glucose Random Glucose 141 H Cancelled Calcium 7.9 L Phosphorus Magnesium Random Vancomycin 05/09/24 05/09/24 05/09/24 08:34 08:34 08:48 MCV MCH MCHC RDW Plt Count MPV Immature Gran % (Auto) Neut % (Auto) Lymph % (Auto) [place] % (Auto) Eos % (Auto) Baso % (Auto) Lymph # (Auto) [place] # (Auto) Eos # (Auto) Baso # (Auto) Abs Immat Gran (auto) Absolute Neuts (auto) Absolute Nucleated RBC Nucleated RBC % (auto) Smear Tech's Comments PT INR VBG pH 7.47 H VBG pCO2 38 VBG pO2 78 VBG HCO3 28 H VBG O2 Saturation 97.0 VBG Base Excess 4.4 Anion Gap Estim Creat Clear Calc Estimated GFR POC Glucose Random Glucose Calcium Cancelled Phosphorus 4.9 H Magnesium 1.8 Cancelled Random Vancomycin 05/09/24 05/09/24 05/09/24 10:50 14:37 16:37 MCV MCH MCHC RDW Plt Count MPV Immature Gran % (Auto) Neut % (Auto) Lymph % (Auto) [place] % (Auto) Eos % (Auto) Baso % (Auto) Lymph # (Auto) [place] # (Auto) Eos # (Auto) Baso # (Auto) Abs Immat Gran (auto) Absolute Neuts (auto) Absolute Nucleated RBC Nucleated RBC % (auto) Smear Tech's Comments PT INR VBG pH VBG pCO2 VBG pO2 VBG HCO3 VBG O2 Saturation VBG Base Excess Anion Gap Estim Creat Clear Calc Estimated GFR POC Glucose 126 H 117 H 110 Random Glucose Calcium Phosphorus Magnesium Random Vancomycin Microbiology Microbiology Results: Microbiology 05/07/24 20:30 Urine Culture - Preliminary Urine clean catch Culture in progress. 05/04/24 08:25 Blood Culture - Final Blood - Venous No growth after 5 days. 05/04/24 08:26 Blood Culture - Final Blood - Venous No growth after 5 days. Assessment and Plan (1) Cellulitis: Status: Acute (2) ESRD (end stage renal disease) on dialysis: Status: Acute (3) Diabetes mellitus with hypoglycemia: Status: Acute Plan Lori Reid is a 68-year-old woman admitted with: Subdural hematoma:CT small right parafalcine subdural hematoma up to 4 mm in thickness stable; traumatic S/p fall at home with head strike on table; no LOC; neuro exam intact; pt AO x3; GCS 15 ED contacted Neurosurgery at [facility] - no interventions needed. Hold aspirin. Check hip x-ray-Faint lucency along the right inferior pubic ramus seen only on one view and possibly artifactual -pelvic ct-does not show any fracture. PT consult-Monitor mentation. Left foot cellulitis with sepsis +left heel escar. 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 ESR/CRP elevated. Continue vancomycin and Zosyn, started 05/04/2024 S/P excisional debridement (today). Acute on chronic anemia of chronic disease Hgb is 7.7 today Continue to monitor H&H Will transfuse as needed. Question of community-acquired pneumonia Denies symptoms. Denies shortness on breath. Oxygen saturation is 96 on room air. ua also has pyuria /bacteruria CXR showed probable right lower lobe pneumonia Continue IV antibiotic therapy with Zosyn and vancomycin. ESRD on HD M/W/F: Continue inpatient hemodialysis Hemodialysis catheter to be replaced by IR due to poor function. Follow BMP, phosphorus and magnesium Type 2 diabetes mellitus Sliding-scale insulin, Lantus Diabetic diet Seizure disorder No recent episodes of seizures. Continue levetiracetam, valproate, and phenytoin. Phenytoin loading given yesterday (low level) HTN Restart amlodipine. Labetalol IV as needed. Mood disorder Continue sertraline, lorazepam Hyperlipidemia Continue atorvastatin Full Code DVT Prophylaxis: Pneumatic compression (subdural hematoma) Patient is still requiring inpatient care for treatment of multiple issues including left foot cellulitis/osteomyelitis and s/p right heel debridement with local care and IV antibiotic therapy Quality Stroke Does the patient have a stroke diagnosis?: No VTE Prior VTE?: No VTE Risk Level:: Medical - moderate - high VTE Device Contraindication: N/A - Device Ordered VTE Drug Contraindication: Treatment Not Indicated
[2024-05-09] MEDS: Omeprazole 40 MG CAPSULE.DR PO (17:14)
[2024-05-09 21:57] LABS: Glucose, Whole Blood 218 mg/dL (60-115)
[2024-05-09] MEDS: Insulin Lispro 100 UNIT/ML 3 ML VIAL SUBCUT (22:31)
[2024-05-09] MEDS: Insulin Glargine,Hum.rec.anlog 100 UNIT/ML 10 ML VIAL 21 UNIT SUBCUT (22:31)
[2024-05-10] VITALS (8 sets, daily range): BP systolic 114–178; BP diastolic 52–77; PULSE 76–88; RESP 14–19; TEMP 36.6–37.6; O2SAT 95–97
[2024-05-10] MEDS: Piperacillin Sodium/Tazobactam 2.25 GM in 0.9 % Sodium Chloride 50 ML IV ×2 (02:23→15:53)
[2024-05-10] MEDS: 0.9 % Sodium Chloride Flush 3 ML SYRINGE IVFLUSH ×3 (02:23→15:53)
[2024-05-10] MEDS: Omeprazole 40 MG CAPSULE.DR PO ×2 (06:01→15:53)
--- NOTE | 2024-05-10 07:36 | HO.WOUND ---
Recommendations updated to reflect post debridement orders from Dr. Vines per his note. Skin Folds - Cleanse with PH balance wipes, pat dry with soft cloth.? Apply antifungal power to assist with moisture management.? Be sure to dust of excess powder to prevent caking on skin and in folds. Apply per provider orders. Tuck Interdry AG Sheet into skin fold to wick and translocate moisture away from skin fold.? Be sure to leave at least 2 inch of fabric exposed outside of skin fold.? Change after 5 days or when soiled. Left Foot - Durafiber at this time - defer to Surgery team - recommend considering Dakins due to odor and drainage. Perineal and Left Ischium - Off Load Pressure with Q2 hr turns and use of pillows - Cleanse with PH balance spray or wipes, pat dry. ?Apply thin layer of Triad to wound bed - only pat and dab no scrub and rub when soiling occurs. Reapply thin layer PRN after each episode of incontinence. Right Heel and left Calf - Cleanse with NS moist gauze, Pat dry.? Apply barrier to periwound, apply NS wet gauze to wound bed cover with dry gauze, ABd pad and wrap.? Change Daily. Bilateral Lateral Thighs - Off Load Pressure with Q2 hr turns and use of pillows - Cleanse with NS moist gauze, Pat dry.? Apply barrier to periwound, apply NS wet gauze to wound bed cover with dry gauze, ABd pad and tape.? Change Daily.?
[2024-05-10] MEDS: Ferrous Sulfate 324 MG TABLET.DR PO (08:01)
[2024-05-10] MEDS: Folic Acid 1 MG TABLET PO (08:01)
[2024-05-10] MEDS: Cholecalciferol (Vitamin D3) 25 MCG TABLET 50 MCG PO (08:01)
[2024-05-10] MEDS: Phenytoin Sodium Extended 100 MG CAPSULE PO ×3 (08:01→21:13)
[2024-05-10] MEDS: Furosemide 40 MG TABLET 80 MG PO ×2 (08:01→21:13)
[2024-05-10] MEDS: Valproic Acid 250 MG CAPSULE 1000 MG PO ×2 (08:01→21:12)
[2024-05-10] MEDS: Sertraline HCL 100 MG TABLET PO (08:01)
[2024-05-10] MEDS: Gabapentin 100 MG CAPSULE 200 MG PO (08:01)
[2024-05-10] MEDS: Atorvastatin Calcium 80 MG TABLET PO (08:02)
[2024-05-10] MEDS: oxyCODONE HCl Immed Release 5 MG TABLET PO ×2 (08:02→18:11)
[2024-05-10 08:16] LABS: Glucose, Whole Blood 131 mg/dL (60-115)
--- NOTE | 2024-05-10 09:21 | HO.POSTANES ---
Post Anesthesia Evaluation Post Anesthesia Evaluation Date of Service: 05/15/24 Vital Signs: Vital Signs Temp Pulse Resp BP Pulse Ox O2 Del Method 05/10/24 08:01 178/77 H 05/10/24 07:15 99.7 F 85 18 178/77 H 95 Room Air 05/10/24 03:57 79 131/63 05/10/24 00:00 97.8 F 76 19 121/76 96 Room Air Anesthesia: TIVA Mental Status: Awake Pain Control: Satisfactory Nausea/Vomiting: None Hydration: Adequate Anesthesia-Related Issues: No Anes. Related Issues
[2024-05-10] MEDS: Acetaminophen 325 MG TABLET 650 MG PO (11:35)
[2024-05-10 13:14] LABS: Glucose, Whole Blood 139 mg/dL (60-115)
[2024-05-10 13:44] LABS: Vancomycin Trough 12.3 mcg/mL (10.0-20.0)
--- NOTE | 2024-05-10 13:53 | PM.PNGS ---
Subjective Subjective Date of Service: 05/10/24 Interval history: Seen while in dialysis Has multiple complaints of pain all over No events overnight Physical Exam Vital Signs: Vital Signs: Last Vital Signs Temp 99.7 F 05/10/24 07:15 Pulse 85 05/10/24 07:15 Resp 18 05/10/24 07:15 BP 178/77 H 05/10/24 08:01 Pulse Ox 95 05/10/24 07:15 O2 Del Method Room Air 05/10/24 07:15 O2 Flow Rate 6 05/09/24 16:16 BMI result Body Mass Index 41.3 Const: General: no acute distress Resp: Other: Mildly short of breath as baseline GI: Palpation (GI): Soft to palpation Extrem: Other: Debridement site on the right heel with dressings in place, dry Debridement site on the left thigh also dry, dressings in place Objective Data Active Medications Acetaminophen (Acetaminophen 325 Mg Tablet) 650 mg PO Q6H PRN PRN Reason: Pain, Mild 1-3,fever,headache Last Admin: 05/10/24 11:35 Dose: 650 mg Documented By: DEEPALI Atorvastatin Calcium (Atorvastatin Calcium 80 Mg Tablet) 80 mg PO DAILY [facility] Last Admin: 05/10/24 08:02 Dose: 80 mg Documented By: DEEPALI Calcium Carbonate (Calcium Carbonate 750 Mg Tab.Chew) 750 mg PO Q4H PRN PRN Reason: Heartburn Dextrose (Dextrose 50 % 25 Gm/50 Ml Syringe) 25 gm IVPUSH Q15M PRN; Protocol PRN Reason: per Hypoglycemia Standing Ord. Fentanyl (Fentanyl Citrate/Pf 100 Mcg/2 Ml Vial) 25 mcg IVPUSH ONCE PRN PRN Reason: Pain, Severe (Pain Scale 7-10) Last Admin: 05/09/24 16:02 Dose: 25 mcg Documented By: RIMA Ferrous Sulfate (Ferrous Sulfate 324 Mg Tablet.) 324 mg PO DAILY [facility] Last Admin: 05/10/24 08:01 Dose: 324 mg Documented By: DEEPALI Folic Acid (Folic Acid 1 Mg Tablet) 1 mg PO DAILY [facility] Last Admin: 05/10/24 08:01 Dose: 1 mg Documented By: DEEPALI Furosemide (Furosemide 40 Mg Tablet) 80 mg PO BID [facility]; Protocol Last Admin: 05/10/24 08:01 Dose: 80 mg Documented By: DEEPALI Gabapentin (Gabapentin 100 Mg Capsule) 200 mg PO DAILY [facility] Last Admin: 05/10/24 08:01 Dose: 200 mg Documented By: DEEPALI Gabapentin (Gabapentin 300 Mg Capsule) 300 mg PO MOWEFR@1800 [facility] Last Admin: 05/08/24 17:48 Dose: 300 mg Documented By: JAROCHO Glucose (Glucose Gel 15 Gm Gel..Gram.) 15 gm PO Q15M PRN; Protocol PRN Reason: per Hypoglycemia Standing Ord. Vancomycin HCl 500 mg/ Sodium (Chloride) 110 mls @ 110 mls/hr IV ONCE ONE Stop: 05/04/24 13:44 Piperacillin Sod/Tazobactam (Sod 2.25 gm/ Sodium Chloride) 50 mls @ 100 mls/hr IV Q12H [facility] Last Infusion: 05/10/24 02:53 Dose: Infused Documented By: DOUGLAS Insulin Glargine (Insulin Glargine,Hum.Rec.Anlog 100 Unit/Ml 10 Ml Vial) 21 unit SUBCUT BEDTIME [facility] Last Admin: 05/09/24 22:31 Dose: 21 unit Documented By: DOUGLAS Insulin Human Lispro (Insulin Lispro 100 Unit/Ml 3 Ml Vial) 0 unit SUBCUT QIDACHS [facility]; Protocol Last Admin: 05/10/24 12:50 Dose: Not Given Documented By: DEEPALI Non-Admin Reason: No Insulin Coverage Labetalol HCl (Labetalol Hcl 100 Mg/20 Ml Vial) 5 mg IVPUSH ONCE PRN PRN Reason: SBP > 160 Levetiracetam (Levetiracetam 500 Mg Tablet) 500 mg PO MOWEFR@1800 [facility] Last Admin: 05/08/24 17:47 Dose: 500 mg Documented By: JAROCHO Lorazepam (Lorazepam 0.5 Mg Tablet) 0.5 mg PO DAILY PRN PRN Reason: anxiety Last Admin: 05/06/24 09:21 Dose: 0.5 mg Documented By: NIGHAT Magnesium Hydroxide (Milk Of Magnesia 30 Ml Oral.Susp) 30 ml PO DAILY PRN PRN Reason: Constipation Melatonin (Melatonin 3 Mg Tablet) 6 mg PO BEDTIME PRN PRN Reason: Insomnia Last Admin: 05/07/24 02:27 Dose: 6 mg Documented By: CONSTANTIN Naloxone HCl (Naloxone Hcl 0.4 Mg/Ml Vial) 0.04 mg IVPUSH Q5M PRN PRN Reason: Excessive sedation or RR < 8 Naloxone HCl (Naloxone Hcl 0.4 Mg/Ml Vial) 0.04 mg IVPUSH Q5M PRN PRN Reason: Excessive sedation or RR < 8 Omeprazole (Omeprazole 40 Mg Capsule.Dr) 40 mg PO BID@0630,1630 [facility] Last Admin: 05/10/24 06:01 Dose: 40 mg Documented By: DOUGLAS Oxycodone HCl (Oxycodone Hcl Immed Release 5 Mg Tablet) 5 mg PO Q4H PRN PRN Reason: Pain, Moderate(Pain Scale 4-6) Last Admin: 05/10/24 08:02 Dose: 5 mg Documented By: DEEPALI Pharmacy Consult (Consult Rx Vancomycin Dosing) 1 each MISCELLANE DAILY PRN PRN Reason: Consult order Phenytoin Sodium (Phenytoin Sodium Extended 100 Mg Capsule) 100 mg PO TID [facility] Last Admin: 05/10/24 08:01 Dose: 100 mg Documented By: DEEPALI Sertraline HCl (Sertraline Hcl 100 Mg Tablet) 100 mg PO DAILY [facility] Last Admin: 05/10/24 08:01 Dose: 100 mg Documented By: DEEPALI Sodium Chloride (0.9 % Sodium Chloride Flush 3 Ml Syringe) 3 ml IVFLUSH QSHIFT [facility] Last Admin: 05/10/24 08:02 Dose: 3 ml Documented By: DEEPALI Trazodone HCl (Trazodone Hcl 100 Mg Tablet) 100 mg PO BEDTIME PRN PRN Reason: Sleep Last Admin: 05/07/24 20:05 Dose: 100 mg Documented By: DOUGLAS Valproic Acid (Valproic Acid 250 Mg Capsule) 1,000 mg PO BID [facility] Last Admin: 05/10/24 08:01 Dose: 1,000 mg Documented By: DEEPALI Vitamin D (Cholecalciferol (Vitamin D3) 25 Mcg Tablet) 50 mcg PO DAILY [facility] Last Admin: 05/10/24 08:01 Dose: 50 mcg Documented By: DEEPALI Labs 05/09/24 08:34 05/09/24 08:34 Labs: Laboratory Results - last 24 hr 05/09/24 05/09/24 05/09/24 14:37 16:37 20:26 POC Glucose 117 H 110 218 H Vancomycin Trough 05/10/24 05/10/24 05/10/24 07:21 12:49 13:26 POC Glucose 131 H 139 H Vancomycin Trough 12.3 Microbiology Microbiology Results: Microbiology 05/07/24 20:30 Urine Culture - Preliminary Urine clean catch Yeast Enterococcus/Streptococcus sp 05/09/24 15:10 Gram Stain - Final Heel, Right Routine Culture - Preliminary Culture in progress. 05/04/24 08:25 Blood Culture - Final Blood - Venous No growth after 5 days. 05/04/24 08:26 Blood Culture - Final Blood - Venous No growth after 5 days. Procedures Date of Service Date of Service: 05/10/24 Progress Note: A&P Assessment and plan (1) Eschar of heel: Status: Acute Assessment and Plan: Status post excisional debridement of the heel as well as the left anterior thigh Keep the heel off of the bed with pillows underneath the calf I have instructed the nursing staff to change dressings daily with wet-to-dry Pain management Rest of the care as per the hospitalist service Family updated Time Spent With Patient Time: Total time managing care of this patient today ____ minutes. Quality Stroke Does the patient have a stroke diagnosis?: No VTE Prior VTE?: No VTE Risk Level:: Medical - moderate - high VTE Device Contraindication: N/A - Device Ordered VTE Drug Contraindication: Treatment Not Indicated
--- NOTE | 2024-05-10 14:29 | P.PNIM_ITS ---
Subjective Subjective Date of Service: 05/10/24 Interval History: No events reported overnight Review of Systems Review of Systems: Yes Unobtainable due to mental status Physical Exam 2 Vital Signs: Vital Signs: Last Vital Signs Temp 99.7 F 05/10/24 07:15 Pulse 85 05/10/24 07:15 Resp 18 05/10/24 07:15 BP 178/77 H 05/10/24 08:01 Pulse Ox 95 05/10/24 07:15 O2 Del Method Room Air 05/10/24 07:15 O2 Flow Rate 6 05/09/24 16:16 BMI result Body Mass Index 41.3 Constitutional - Awake, somewhat lethargic. Looks uncomfortable due to pain. Obese. Cooperative. HEENT - PERRL, EOMI. Dry oral mucosa. Heart - S1S2, RRR, No murmurs Lungs - Normal lung expansion, Normal respiratory effort, No respiratory distress, CTA bilaterally Abdomen - NT / ND; +BS; No rebound or guarding Extremities - Dressing in place and clean. Skin - Warm/Dry Neurological - Alert & oriented x3. No focal weakness grossly noted. No focal weakness grossly noted. Psychological - Depressed affect Objective Data Active Medications Acetaminophen (Acetaminophen 325 Mg Tablet) 650 mg PO Q6H PRN PRN Reason: Pain, Mild 1-3,fever,headache Last Admin: 05/10/24 11:35 Dose: 650 mg Documented By: DEEPALI Atorvastatin Calcium (Atorvastatin Calcium 80 Mg Tablet) 80 mg PO DAILY [facility] Last Admin: 05/10/24 08:02 Dose: 80 mg Documented By: DEEPALI Calcium Carbonate (Calcium Carbonate 750 Mg Tab.Chew) 750 mg PO Q4H PRN PRN Reason: Heartburn Dextrose (Dextrose 50 % 25 Gm/50 Ml Syringe) 25 gm IVPUSH Q15M PRN; Protocol PRN Reason: per Hypoglycemia Standing Ord. Fentanyl (Fentanyl Citrate/Pf 100 Mcg/2 Ml Vial) 25 mcg IVPUSH ONCE PRN PRN Reason: Pain, Severe (Pain Scale 7-10) Last Admin: 05/09/24 16:02 Dose: 25 mcg Documented By: RIMA Ferrous Sulfate (Ferrous Sulfate 324 Mg Tablet.) 324 mg PO DAILY [facility] Last Admin: 05/10/24 08:01 Dose: 324 mg Documented By: DEEPALI Folic Acid (Folic Acid 1 Mg Tablet) 1 mg PO DAILY [facility] Last Admin: 05/10/24 08:01 Dose: 1 mg Documented By: DEEPALI Furosemide (Furosemide 40 Mg Tablet) 80 mg PO BID [facility]; Protocol Last Admin: 05/10/24 08:01 Dose: 80 mg Documented By: DEEPALI Gabapentin (Gabapentin 100 Mg Capsule) 200 mg PO DAILY [facility] Last Admin: 05/10/24 08:01 Dose: 200 mg Documented By: DEEPALI Gabapentin (Gabapentin 300 Mg Capsule) 300 mg PO MOWEFR@1800 [facility] Last Admin: 05/08/24 17:48 Dose: 300 mg Documented By: JAROCHO Glucose (Glucose Gel 15 Gm Gel..Gram.) 15 gm PO Q15M PRN; Protocol PRN Reason: per Hypoglycemia Standing Ord. Vancomycin HCl 500 mg/ Sodium (Chloride) 110 mls @ 110 mls/hr IV ONCE ONE Stop: 05/04/24 13:44 Piperacillin Sod/Tazobactam (Sod 2.25 gm/ Sodium Chloride) 50 mls @ 100 mls/hr IV Q12H [facility] Last Infusion: 05/10/24 02:53 Dose: Infused Documented By: DOUGLAS Vancomycin HCl 500 mg/ Sodium (Chloride) 110 mls @ 110 mls/hr IV ONCE ONE Stop: 05/10/24 14:59 Insulin Glargine (Insulin Glargine,Hum.Rec.Anlog 100 Unit/Ml 10 Ml Vial) 21 unit SUBCUT BEDTIME [facility] Last Admin: 05/09/24 22:31 Dose: 21 unit Documented By: DOUGLAS Insulin Human Lispro (Insulin Lispro 100 Unit/Ml 3 Ml Vial) 0 unit SUBCUT QIDACHS [facility]; Protocol Last Admin: 05/10/24 12:50 Dose: Not Given Documented By: DEEPALI Non-Admin Reason: No Insulin Coverage Labetalol HCl (Labetalol Hcl 100 Mg/20 Ml Vial) 5 mg IVPUSH ONCE PRN PRN Reason: SBP > 160 Levetiracetam (Levetiracetam 500 Mg Tablet) 500 mg PO MOWEFR@1800 [facility] Last Admin: 05/08/24 17:47 Dose: 500 mg Documented By: JAROCHO Lorazepam (Lorazepam 0.5 Mg Tablet) 0.5 mg PO DAILY PRN PRN Reason: anxiety Last Admin: 05/06/24 09:21 Dose: 0.5 mg Documented By: NIGHAT Magnesium Hydroxide (Milk Of Magnesia 30 Ml Oral.Susp) 30 ml PO DAILY PRN PRN Reason: Constipation Melatonin (Melatonin 3 Mg Tablet) 6 mg PO BEDTIME PRN PRN Reason: Insomnia Last Admin: 05/07/24 02:27 Dose: 6 mg Documented By: CONSTANTIN Naloxone HCl (Naloxone Hcl 0.4 Mg/Ml Vial) 0.04 mg IVPUSH Q5M PRN PRN Reason: Excessive sedation or RR < 8 Naloxone HCl (Naloxone Hcl 0.4 Mg/Ml Vial) 0.04 mg IVPUSH Q5M PRN PRN Reason: Excessive sedation or RR < 8 Omeprazole (Omeprazole 40 Mg Capsule.Dr) 40 mg PO BID@0630,1630 [facility] Last Admin: 05/10/24 06:01 Dose: 40 mg Documented By: DOUGLAS Oxycodone HCl (Oxycodone Hcl Immed Release 5 Mg Tablet) 5 mg PO Q4H PRN PRN Reason: Pain, Moderate(Pain Scale 4-6) Last Admin: 05/10/24 08:02 Dose: 5 mg Documented By: DEEPALI Pharmacy Consult (Consult Rx Vancomycin Dosing) 1 each MISCELLANE DAILY PRN PRN Reason: Consult order Phenytoin Sodium (Phenytoin Sodium Extended 100 Mg Capsule) 100 mg PO TID [facility] Last Admin: 05/10/24 08:01 Dose: 100 mg Documented By: DEEPALI Sertraline HCl (Sertraline Hcl 100 Mg Tablet) 100 mg PO DAILY [facility] Last Admin: 05/10/24 08:01 Dose: 100 mg Documented By: DEEPALI Sodium Chloride (0.9 % Sodium Chloride Flush 3 Ml Syringe) 3 ml IVFLUSH QSHIFT [facility] Last Admin: 05/10/24 08:02 Dose: 3 ml Documented By: DEEPALI Trazodone HCl (Trazodone Hcl 100 Mg Tablet) 100 mg PO BEDTIME PRN PRN Reason: Sleep Last Admin: 05/07/24 20:05 Dose: 100 mg Documented By: DOUGLAS Valproic Acid (Valproic Acid 250 Mg Capsule) 1,000 mg PO BID [facility] Last Admin: 05/10/24 08:01 Dose: 1,000 mg Documented By: DEEPALI Vitamin D (Cholecalciferol (Vitamin D3) 25 Mcg Tablet) 50 mcg PO DAILY [facility] Last Admin: 05/10/24 08:01 Dose: 50 mcg Documented By: DEEPALI Labs 05/09/24 08:34 05/09/24 08:34 Labs: Laboratory Results - last 24 hr 05/09/24 05/09/24 05/09/24 14:37 16:37 20:26 POC Glucose 117 H 110 218 H Vancomycin Trough 05/10/24 05/10/24 05/10/24 07:21 12:49 13:26 POC Glucose 131 H 139 H Vancomycin Trough 12.3 Microbiology Microbiology Results: Microbiology 05/07/24 20:30 Urine Culture - Preliminary Urine clean catch Yeast Enterococcus/Streptococcus sp 05/09/24 15:10 Gram Stain - Final Heel, Right Routine Culture - Preliminary Culture in progress. 05/04/24 08:25 Blood Culture - Final Blood - Venous No growth after 5 days. 05/04/24 08:26 Blood Culture - Final Blood - Venous No growth after 5 days. Assessment and Plan (1) Cellulitis: Status: Acute (2) Diabetes mellitus with hypoglycemia: Status: Acute Plan Lori Reid is a 68-year-old woman admitted with: Subdural hematoma:CT small right parafalcine subdural hematoma up to 4 mm in thickness stable; traumatic S/p fall at home with head strike on table; no LOC; neuro exam intact; pt AO x3; GCS 15 ED contacted Neurosurgery at [facility] - no interventions needed. Hold aspirin. Check hip x-ray-Faint lucency along the right inferior pubic ramus seen only on one view and possibly artifactual -pelvic ct-does not show any fracture. PT consult-Monitor mentation. Left foot cellulitis. 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 ESR/CRP elevated. Continue vancomycin and Zosyn, started 05/04/2024 S/P excisional debridement, Dr. Vines. Continue wound care Acute on chronic anemia of chronic disease Continue to monitor H&H Will transfuse as needed. Question of community-acquired pneumonia Denies symptoms. Denies shortness on breath. Oxygen saturation is 96 on room air. ua also has pyuria /bacteruria CXR showed probable right lower lobe pneumonia Continue IV antibiotic therapy with Zosyn and vancomycin. ESRD on HD M/W/F: Continue inpatient hemodialysis Hemodialysis catheter to be replaced by IR due to poor function. Follow BMP, phosphorus and magnesium Type 2 diabetes mellitus Sliding-scale insulin, Lantus Diabetic diet Seizure disorder No recent episodes of seizures. Continue levetiracetam, valproate, and phenytoin. Phenytoin loading given yesterday (low level) HTN Restart amlodipine. Labetalol IV as needed. Mood disorder Continue sertraline, lorazepam Hyperlipidemia Continue atorvastatin Full Code DVT Prophylaxis: Pneumatic compression (subdural hematoma) Patient is still requiring inpatient care for treatment of multiple issues including left foot cellulitis/osteomyelitis and s/p right heel debridement with local care and IV antibiotic therapy Quality Stroke Does the patient have a stroke diagnosis?: No VTE Prior VTE?: No VTE Risk Level:: Medical - moderate - high VTE Device Contraindication: N/A - Device Ordered VTE Drug Contraindication: Treatment Not Indicated
--- NOTE | 2024-05-10 15:49 | MHC.CM.PN ---
EMR reviewed and per MD rounds, pt is not medically cleared for discharge due to management of left foot cellulitis/osteomyelitis.
[2024-05-10] MEDS: vancomycin HCL 500 MG in 0.9 % Sodium Chloride 100 ML 110 MG IV (15:53)
[2024-05-10] MEDS: Insulin Lispro 100 UNIT/ML 3 ML VIAL SUBCUT ×2 (15:54→23:32)
[2024-05-10 16:11] LABS: Glucose, Whole Blood 164 mg/dL (60-115)
[2024-05-10] MEDS: levETIRAcetam 500 MG TABLET PO (18:11)
[2024-05-10] MEDS: Gabapentin 300 MG CAPSULE PO (18:11)
--- NOTE | 2024-05-10 18:48 | P.PNNP_ITS ---
Subjective Subjective Date of Service: 05/09/24 Interval history: Seen and examined,e vents noted Physical Exam 2 Vital Signs: Vital Signs: Last Vital Signs Temp 98.8 F 05/10/24 15:20 Pulse 88 05/10/24 15:20 Resp 14 05/10/24 15:20 BP 114/52 L 05/10/24 15:20 Pulse Ox 96 05/10/24 15:20 O2 Del Method Room Air 05/10/24 15:20 O2 Flow Rate 6 05/09/24 16:16 BMI result Body Mass Index 41.3 Const: General: no acute distress Nutritional Appearance: well nourished Resp: Effort & Inspection: normal respiratory effort, no audible wheezes, no cough and no respiratory distress GI: Inspection: Yes normal to inspection Neuro: Other: She is little bit drowsy but able to communicate answer questions and follow commands. Face is symmetrical. Visual lambert are full. There is no focal arm or leg weakness. Plantars are flexor. Deep tendon reflexes are absent in chronic sign of neuropathy are noted in feet. 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 Incision is noted to be open with some surrounding callus formation. No purulence discharge was identified. Slight erythema is noted in the surrounding skin. Objective Data Labs 05/09/24 08:34 05/09/24 08:34 Labs: Laboratory Results - last 24 hr 05/09/24 05/10/24 05/10/24 20:26 07:21 12:49 POC Glucose 218 H 131 H 139 H Vancomycin Trough 05/10/24 05/10/24 13:26 15:47 POC Glucose 164 H Vancomycin Trough 12.3 Microbiology Microbiology Results: Microbiology 05/07/24 20:30 Urine clean catch Urine Culture - Preliminary Yeast Enterococcus/Streptococcus sp 05/09/24 15:10 Heel, Right Gram Stain - Final 05/09/24 15:10 Heel, Right Routine Culture - Preliminary Culture in progress. 05/04/24 08:25 Blood - Venous Blood Culture - Final No growth after 5 days. 05/04/24 08:26 Blood - Venous Blood Culture - Final No growth after 5 days. 05/04/24 15:12 Urine clean catch - Clean Catch Midstream Urine Culture - Final Procedures Date of Service Date of Service: 05/10/24 Assessment & Plan Assessment and plan (1) Acute subdural hematoma: Status: Acute Assessment and Plan: 68 years old woman with underlying end-stage renal disease severe anemia, left frontal craniotomy and encephalomalacia of unknown cause and probably related seizure disorder, and multifactorial gait disorder who had a mechanical fall at home resulting in tiny right parafalcine subdural hemorrhage. Bleed was stable and did not require any intervention or follow-up imaging at this time. New issues: Pcath func poorly to be replaced Plan 1. ESRD: usu MWF at HDU 2. 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 Wounds 5. Unsteady gait and ques safety with going home 6. Hemoaccess: needs Pcath replaced REC: HD mwf; epo/fe; abx as noted; d/c planning--ques go to rehab instead of hoemat time of d/c--PT and daughte to talk to team; needs Pcath replaced Will follow wteam Time Spent With Patient Time: Total time managing care of this patient today ____ minutes. Progress Note: Quality Stroke Does the patient have a stroke diagnosis?: No
--- NOTE | 2024-05-10 18:52 | P.PNNP_ITS ---
Subjective Subjective Date of Service: 05/10/24 Interval history: Seen and examined,e vents noted Pcath replacement schedueld for this PM Physical Exam 2 Vital Signs: Vital Signs: Last Vital Signs Temp 98.8 F 05/10/24 15:20 Pulse 88 05/10/24 15:20 Resp 14 05/10/24 15:20 BP 114/52 L 05/10/24 15:20 Pulse Ox 96 05/10/24 15:20 O2 Del Method Room Air 05/10/24 15:20 O2 Flow Rate 6 05/09/24 16:16 BMI result Body Mass Index 41.3 Const: General: no acute distress Nutritional Appearance: well nourished Resp: Effort & Inspection: normal respiratory effort, no audible wheezes, no cough and no respiratory distress GI: Inspection: Yes normal to inspection Neuro: Other: She is little bit drowsy but able to communicate answer questions and follow commands. Face is symmetrical. Visual lambert are full. There is no focal arm or leg weakness. Plantars are flexor. Deep tendon reflexes are absent in chronic sign of neuropathy are noted in feet. 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 Incision is noted to be open with some surrounding callus formation. No purulence discharge was identified. Slight erythema is noted in the surrounding skin. Objective Data Labs 05/09/24 08:34 05/09/24 08:34 Labs: Laboratory Results - last 24 hr 05/09/24 05/10/24 05/10/24 20:26 07:21 12:49 POC Glucose 218 H 131 H 139 H Vancomycin Trough 05/10/24 05/10/24 13:26 15:47 POC Glucose 164 H Vancomycin Trough 12.3 Microbiology Microbiology Results: Microbiology 05/07/24 20:30 Urine clean catch Urine Culture - Preliminary Yeast Enterococcus/Streptococcus sp 05/09/24 15:10 Heel, Right Gram Stain - Final 05/09/24 15:10 Heel, Right Routine Culture - Preliminary Culture in progress. 05/04/24 08:25 Blood - Venous Blood Culture - Final No growth after 5 days. 05/04/24 08:26 Blood - Venous Blood Culture - Final No growth after 5 days. 05/04/24 15:12 Urine clean catch - Clean Catch Midstream Urine Culture - Final Procedures Date of Service Date of Service: 05/10/24 Assessment & Plan Assessment and plan (1) Acute subdural hematoma: Status: Acute Assessment and Plan: 68 years old woman with underlying end-stage renal disease severe anemia, left frontal craniotomy and encephalomalacia of unknown cause and probably related seizure disorder, and multifactorial gait disorder who had a mechanical fall at home resulting in tiny right parafalcine subdural hemorrhage. Bleed was stable and did not require any intervention or follow-up imaging at this time. New issues: Pcath func poorly to be replaced this PM and HD reschedueld for tomoorrow Plan 1. ESRD: usu MWF at HDU 2. 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 Wounds 5. Unsteady gait and ques safety with going home 6. Hemoaccess: needs Pcath replaced REC: HD mwf; epo/fe; abx as noted; d/c planning--ques go to rehab instead of hoemat time of d/c--PT and daughte to talk to team; HD tomorrow instead of today bc Pcath still has nt been replaced--jagruti be this PM Will follow wteam Time Spent With Patient Time: Total time managing care of this patient today ____ minutes. Progress Note: Quality Stroke Does the patient have a stroke diagnosis?: No
[2024-05-10] MEDS: traZODone HCL 100 MG TABLET PO (21:12)
[2024-05-10] MEDS: Insulin Glargine,Hum.rec.anlog 100 UNIT/ML 10 ML VIAL 21 UNIT SUBCUT (21:13)
[2024-05-11] MEDS: LORazepam 0.5 MG TABLET PO (00:22)
[2024-05-11] MEDS: oxyCODONE HCl Immed Release 5 MG TABLET PO ×3 (00:23→13:49)
[2024-05-11 02:01] LABS: Glucose, Whole Blood 235 mg/dL (60-115)
[2024-05-11] MEDS: 0.9 % Sodium Chloride Flush 3 ML SYRINGE IVFLUSH ×2 (02:38→08:25)
[2024-05-11] MEDS: Piperacillin Sodium/Tazobactam 2.25 GM in 0.9 % Sodium Chloride 50 ML IV ×2 (02:38→13:17)
[2024-05-11 03:39] VITALS: BP 147/65; PULSE 77; RESP 19; TEMP 36.4; O2SAT 96
[2024-05-11] MEDS: Omeprazole 40 MG CAPSULE.DR PO ×2 (05:56→17:16)
[2024-05-11 07:05] LABS: Hematocrit 23.9 % (37.0-47.0); Hemoglobin 7.8 g/dl (12.0-16.0); Mean Corpuscular HGB Conc 32.6 g/dl (31.0-35.0); Mean Corpuscular Volume 88.8 fL (80.0-98.0); Red Blood Count 2.69 X10*6/uL (4.20-5.50); Red Cell Distribution Width 22.5 % (11.0-16.0); White Blood Count 13.3 X10*3/uL (4.8-10.8)
[2024-05-11 07:21] LABS: Anion Gap 17 (12-20); Blood Urea Nitrogen 36 mg/dL (9-16); Calcium 8.3 mg/dL (8.4-10.2); Carbon Dioxide 26 mmol/L (22-29); Chloride 101 mmol/L (96-108); Creatinine Clr Calc Pharmacy 16.3; Estimated Glomerular Filt Rate 12; Glucose Random 100 mg/dL (60-115); Magnesium 1.9 mg/dL (1.6-2.6); Potassium 3.5 mmol/L (3.3-5.1); Sodium 140 mmol/L (135-145)
[2024-05-11 07:31] VITALS: BP 145/66; PULSE 83; RESP 19; TEMP 36.5; O2SAT 98
[2024-05-11 07:40] LABS: Band Neutrophils Percent 4 % (3-5); Basophils Abs Manual 0.3 X10*3/uL (0.0-0.2); Basophils Percent Manual 2 % (0-2); Eosinophils Absolute Manual 0.4 X10*3/uL (0.0-0.4); Eosinophils Percent Manual 3 % (0-4); Lymphocytes Absolute Manual 1.3 X10*3/uL (1.2-4.9); Lymphocytes Percent Manual 10 % (20-40); Metamyelocytes Absolute 0.5 X10*3/uL; Metamyelocytes Percent 4 %; Monocytes Absolute Manual 0.3 X10*3/uL (0.1-1.2); Monocytes Percent Manual 2 % (2-11); Myelocytes Absolute 0.3 X10*/uL; Myelocytes Percent 2 %; Neutrophils Absolute Manual 10.2 X10*3/uL (2.0-8.3); Neutrophils Percent Manual 73 % (45-73)
[2024-05-11 07:42] LABS: Hypochromasia 1+ (5-14) /OIF; Ovalocytes 1+ (5-14) /OIF; RBC Morphology NOTED
[2024-05-11 08:36] LABS: Glucose, Whole Blood 100 mg/dL (60-115)
[2024-05-11] MEDS: Atorvastatin Calcium 80 MG TABLET PO (10:54)
[2024-05-11] MEDS: Cholecalciferol (Vitamin D3) 25 MCG TABLET 50 MCG PO (10:54)
[2024-05-11] MEDS: Furosemide 40 MG TABLET 80 MG PO ×2 (10:54→22:14)
[2024-05-11] MEDS: Phenytoin Sodium Extended 100 MG CAPSULE PO ×3 (10:54→22:14)
[2024-05-11] MEDS: Sertraline HCL 100 MG TABLET PO (10:55)
[2024-05-11] MEDS: Ferrous Sulfate 324 MG TABLET.DR PO (10:55)
[2024-05-11] MEDS: Valproic Acid 250 MG CAPSULE 1000 MG PO ×2 (10:55→22:14)
[2024-05-11] MEDS: Folic Acid 1 MG TABLET PO (10:55)
[2024-05-11] MEDS: Gabapentin 100 MG CAPSULE 200 MG PO (10:56)
--- NOTE | 2024-05-11 11:46 | P.PNIM_ITS ---
Subjective Subjective Date of Service: 05/11/24 Interval History: Follow up Cellulitis, subdural hematoma doing ok, resting in bed Review of Systems Review of Systems: Yes Unobtainable due to mental status Physical Exam 2 Vital Signs: Vital Signs: Last Vital Signs Temp 97.7 F 05/11/24 07:31 Pulse 83 05/11/24 07:31 Resp 19 05/11/24 07:31 BP 145/66 H 05/11/24 07:31 Pulse Ox 98 05/11/24 07:31 O2 Del Method Room Air 05/11/24 07:31 O2 Flow Rate 6 05/09/24 16:16 BMI result Body Mass Index 41.3 Appearing in no acute distress lung sounds are clear to auscultation heart regular rate rhythm, clear S1, S2 positive bowel sounds, abdomen is soft, nontender neuro patient is alert x3, no focal deficits Objective Data Active Medications Acetaminophen (Acetaminophen 325 Mg Tablet) 650 mg PO Q6H PRN PRN Reason: Pain, Mild 1-3,fever,headache Last Admin: 05/10/24 11:35 Dose: 650 mg Documented By: DEEPALI Atorvastatin Calcium (Atorvastatin Calcium 80 Mg Tablet) 80 mg PO DAILY [facility] Last Admin: 05/11/24 10:54 Dose: 80 mg Documented By: HENRIQUE Calcium Carbonate (Calcium Carbonate 750 Mg Tab.Chew) 750 mg PO Q4H PRN PRN Reason: Heartburn Dextrose (Dextrose 50 % 25 Gm/50 Ml Syringe) 25 gm IVPUSH Q15M PRN; Protocol PRN Reason: per Hypoglycemia Standing Ord. Fentanyl (Fentanyl Citrate/Pf 100 Mcg/2 Ml Vial) 25 mcg IVPUSH ONCE PRN PRN Reason: Pain, Severe (Pain Scale 7-10) Last Admin: 05/09/24 16:02 Dose: 25 mcg Documented By: RIMA Ferrous Sulfate (Ferrous Sulfate 324 Mg Tablet.Dr) 324 mg PO DAILY [facility] Last Admin: 05/11/24 10:55 Dose: 324 mg Documented By: HENRIQUE Folic Acid (Folic Acid 1 Mg Tablet) 1 mg PO DAILY [facility] Last Admin: 05/11/24 10:55 Dose: 1 mg Documented By: HENRIQUE Furosemide (Furosemide 40 Mg Tablet) 80 mg PO BID [facility]; Protocol Last Admin: 05/11/24 10:54 Dose: 80 mg Documented By: HENRIQUE Gabapentin (Gabapentin 100 Mg Capsule) 200 mg PO DAILY [facility] Last Admin: 05/11/24 10:56 Dose: 200 mg Documented By: HENRIQUE Gabapentin (Gabapentin 300 Mg Capsule) 300 mg PO MOWEFR@1800 [facility] Last Admin: 05/10/24 18:11 Dose: 300 mg Documented By: DEEPALI Glucose (Glucose Gel 15 Gm Gel..Gram.) 15 gm PO Q15M PRN; Protocol PRN Reason: per Hypoglycemia Standing Ord. Vancomycin HCl 500 mg/ Sodium (Chloride) 110 mls @ 110 mls/hr IV ONCE ONE Stop: 05/04/24 13:44 Piperacillin Sod/Tazobactam (Sod 2.25 gm/ Sodium Chloride) 50 mls @ 100 mls/hr IV Q12H [facility] Last Infusion: 05/11/24 03:17 Dose: Infused Documented By: DAKOTA Insulin Glargine (Insulin Glargine,Hum.Rec.Anlog 100 Unit/Ml 10 Ml Vial) 21 unit SUBCUT BEDTIME [facility] Last Admin: 05/10/24 21:13 Dose: 21 unit Documented By: NAM Insulin Human Lispro (Insulin Lispro 100 Unit/Ml 3 Ml Vial) 0 unit SUBCUT QIDACHS [facility]; Protocol Last Admin: 05/11/24 09:45 Dose: Not Given Documented By: HENRIQUE Non-Admin Reason: No Insulin Coverage Labetalol HCl (Labetalol Hcl 100 Mg/20 Ml Vial) 5 mg IVPUSH ONCE PRN PRN Reason: SBP > 160 Levetiracetam (Levetiracetam 500 Mg Tablet) 500 mg PO MOWEFR@1800 [facility] Last Admin: 05/10/24 18:11 Dose: 500 mg Documented By: DEEPALI Lorazepam (Lorazepam 0.5 Mg Tablet) 0.5 mg PO DAILY PRN PRN Reason: anxiety Last Admin: 05/11/24 00:22 Dose: 0.5 mg Documented By: DAKOTA Magnesium Hydroxide (Milk Of Magnesia 30 Ml Oral.Susp) 30 ml PO DAILY PRN PRN Reason: Constipation Melatonin (Melatonin 3 Mg Tablet) 6 mg PO BEDTIME PRN PRN Reason: Insomnia Last Admin: 05/07/24 02:27 Dose: 6 mg Documented By: CONSTANTIN Naloxone HCl (Naloxone Hcl 0.4 Mg/Ml Vial) 0.04 mg IVPUSH Q5M PRN PRN Reason: Excessive sedation or RR < 8 Naloxone HCl (Naloxone Hcl 0.4 Mg/Ml Vial) 0.04 mg IVPUSH Q5M PRN PRN Reason: Excessive sedation or RR < 8 Omeprazole (Omeprazole 40 Mg Capsule.Dr) 40 mg PO BID@0630,1630 [facility] Last Admin: 05/11/24 05:56 Dose: 40 mg Documented By: DAKOTA Oxycodone HCl (Oxycodone Hcl Immed Release 5 Mg Tablet) 5 mg PO Q4H PRN PRN Reason: Pain, Moderate(Pain Scale 4-6) Last Admin: 05/11/24 05:55 Dose: 5 mg Documented By: DAKOTA Pharmacy Consult (Consult Rx Vancomycin Dosing) 1 each MISCELLANE DAILY PRN PRN Reason: Consult order Phenytoin Sodium (Phenytoin Sodium Extended 100 Mg Capsule) 100 mg PO TID [facility] Last Admin: 05/11/24 10:54 Dose: 100 mg Documented By: HENRIQUE Sertraline HCl (Sertraline Hcl 100 Mg Tablet) 100 mg PO DAILY [facility] Last Admin: 05/11/24 10:55 Dose: 100 mg Documented By: HENRIQUE Sodium Chloride (0.9 % Sodium Chloride Flush 3 Ml Syringe) 3 ml IVFLUSH QSHIFT [facility] Last Admin: 05/11/24 02:38 Dose: 3 ml Documented By: DKAOTA Trazodone HCl (Trazodone Hcl 100 Mg Tablet) 100 mg PO BEDTIME PRN PRN Reason: Sleep Last Admin: 05/10/24 21:12 Dose: 100 mg Documented By: NAM Valproic Acid (Valproic Acid 250 Mg Capsule) 1,000 mg PO BID [facility] Last Admin: 05/11/24 10:55 Dose: 1,000 mg Documented By: HENRIQUE Vitamin D (Cholecalciferol (Vitamin D3) 25 Mcg Tablet) 50 mcg PO DAILY [facility] Last Admin: 05/11/24 10:54 Dose: 50 mcg Documented By: HENRIQUE Labs 05/11/24 06:22 05/11/24 06:22 Labs: Laboratory Results - last 24 hr 05/10/24 05/10/24 05/10/24 12:49 13:26 15:47 MCV MCH MCHC RDW Plt Count MPV Immature Gran % (Auto) Neut % (Auto) Lymph % (Auto) [place] % (Auto) Eos % (Auto) Baso % (Auto) Lymph # (Auto) [place] # (Auto) Eos # (Auto) Baso # (Auto) Abs Immat Gran (auto) Absolute Neuts (auto) Absolute Nucleated RBC Nucleated RBC % (auto) Neutrophils % (Manual) Band Neutrophils % Lymphocytes % (Manual) Monocytes % (Manual) Eosinophils % (Manual) Basophils % (Manual) Metamyelocytes % Myelocytes % Abs Neuts (Manual) Lymphocytes # (Manual) Monocytes # (Manual) Eosinophils # (Manual) Basophils # (Manual) Metamyelocytes # Myelocytes # Platelet Estimate Plt Morphology Comment RBC Morphology Hypochromasia Ovalocytes Anion Gap Estim Creat Clear Calc Estimated GFR POC Glucose 139 H 164 H Random Glucose Calcium Magnesium Vancomycin Trough 12.3 05/10/24 05/11/24 05/11/24 20:25 06:22 07:37 MCV 88.8 MCH 29.0 MCHC 32.6 RDW 22.5 H Plt Count TNP MPV TNP Immature Gran % (Auto) Cancelled Neut % (Auto) Cancelled Lymph % (Auto) Cancelled [place] % (Auto) Cancelled Eos % (Auto) Cancelled Baso % (Auto) Cancelled Lymph # (Auto) Cancelled [place] # (Auto) Cancelled Eos # (Auto) Cancelled Baso # (Auto) Cancelled Abs Immat Gran (auto) Cancelled Absolute Neuts (auto) Cancelled Absolute Nucleated RBC 0.000 Nucleated RBC % (auto) 0.0 Neutrophils % (Manual) 73 Band Neutrophils % 4 Lymphocytes % (Manual) 10 L Monocytes % (Manual) 2 Eosinophils % (Manual) 3 Basophils % (Manual) 2 Metamyelocytes % 4 Myelocytes % 2 Abs Neuts (Manual) 10.2 H Lymphocytes # (Manual) 1.3 Monocytes # (Manual) 0.3 Eosinophils # (Manual) 0.4 Basophils # (Manual) 0.3 H Metamyelocytes # 0.5 Myelocytes # 0.3 Platelet Estimate TNP Plt Morphology Comment TNP RBC Morphology NOTED Hypochromasia 1+ (5-14) Ovalocytes 1+ (5-14) Anion Gap 17 Estim Creat Clear Calc 16.3 Estimated GFR 12 POC Glucose 235 H 100 Random Glucose 100 Calcium 8.3 L Magnesium 1.9 Vancomycin Trough Microbiology Microbiology Results: Microbiology 05/09/24 15:10 Gram Stain - Final Heel, Right Routine Culture - Preliminary 05/07/24 20:30 Urine Culture - Preliminary Urine clean catch Ira albicans Enterococcus faecium Assessment and Plan (1) Cellulitis: Status: Acute (2) Diabetes mellitus with hypoglycemia: Status: Acute Plan Lori Reid is a 68-year-old woman admitted with: Subdural hematoma CT small right parafalcine subdural hematoma up to 4 mm in thickness stable; traumatic S/p fall at home with head strike on table; no LOC; neuro exam intact; pt AO x3; GCS 15 ED contacted Neurosurgery at [facility] - no interventions needed. Hold aspirin. Left foot cellulitis. 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 ESR/CRP elevated. Continue vancomycin and Zosyn, started 05/04/2024 S/P excisional debridement, Dr. Vines. Continue wound care Acute on chronic anemia of chronic disease Continue to monitor H&H Will transfuse as needed. Question of community-acquired pneumonia Denies symptoms. Denies shortness on breath. Oxygen saturation is 96 on room air. ua also has pyuria /bacteruria CXR showed probable right lower lobe pneumonia Continue IV antibiotic therapy with Zosyn and vancomycin. ESRD on HD M/W/ Continue inpatient hemodialysis Hemodialysis catheter replaced by IR due to poor function. Follow BMP, phosphorus and magnesium Type 2 diabetes mellitus Sliding-scale insulin, Lantus Diabetic diet Seizure disorder No recent episodes of seizures. Continue levetiracetam, valproate, and phenytoin. HTN amlodipine. Labetalol IV as needed. Mood disorder Continue sertraline, lorazepam Hyperlipidemia Continue atorvastatin Full Code DVT Prophylaxis: Pneumatic compression (subdural hematoma) Quality Stroke Does the patient have a stroke diagnosis?: No VTE Prior VTE?: No VTE Risk Level:: Medical - moderate - high VTE Device Contraindication: N/A - Device Ordered VTE Drug Contraindication: Treatment Not Indicated
[2024-05-11 12:00] VITALS: BP 136/65; PULSE 76; RESP 18; TEMP 37.3; O2SAT 98
[2024-05-11 12:20] LABS: Glucose, Whole Blood 84 mg/dL (60-115)
[2024-05-11 15:58] VITALS: BP 105/49; PULSE 79; RESP 14; TEMP 36.3; O2SAT 99
[2024-05-11] MEDS: Morphine Sulfate 2 MG/ML CARTRIDGE IVPUSH (17:15)
[2024-05-11 17:37] LABS: Glucose, Whole Blood 123 mg/dL (60-115)
[2024-05-11 19:54] VITALS: BP 147/71; PULSE 80; RESP 14; TEMP 36.9; O2SAT 100
[2024-05-11 21:48] LABS: Glucose, Whole Blood 167 mg/dL (60-115)
[2024-05-11] MEDS: Insulin Glargine,Hum.rec.anlog 100 UNIT/ML 10 ML VIAL 21 UNIT SUBCUT (22:14)
[2024-05-11] MEDS: Insulin Lispro 100 UNIT/ML 3 ML VIAL SUBCUT (22:14)
[2024-05-12] VITALS (8 sets, daily range): BP systolic 92–165; BP diastolic 46–73; PULSE 78–97; RESP 16–20; TEMP 36.3–37.2; O2SAT 93–99
[2024-05-12] MEDS: 0.9 % Sodium Chloride Flush 3 ML SYRINGE IVFLUSH ×2 (00:45→09:03)
[2024-05-12 01:53] LABS: Levetiracetam Keppra 7.9 mcg/mL (6.0-46.0)
[2024-05-12] MEDS: Piperacillin Sodium/Tazobactam 2.25 GM in 0.9 % Sodium Chloride 50 ML IV ×2 (02:50→14:53)
[2024-05-12] MEDS: Omeprazole 40 MG CAPSULE.DR PO ×2 (06:48→14:56)
[2024-05-12] MEDS: Folic Acid 1 MG TABLET PO (09:02)
[2024-05-12] MEDS: Ferrous Sulfate 324 MG TABLET.DR PO (09:02)
[2024-05-12] MEDS: Cholecalciferol (Vitamin D3) 25 MCG TABLET 50 MCG PO (09:02)
[2024-05-12] MEDS: Furosemide 40 MG TABLET 80 MG PO ×2 (09:03→21:54)
[2024-05-12] MEDS: Gabapentin 100 MG CAPSULE 200 MG PO (09:03)
[2024-05-12] MEDS: Phenytoin Sodium Extended 100 MG CAPSULE PO ×3 (09:03→21:54)
[2024-05-12] MEDS: Atorvastatin Calcium 80 MG TABLET PO (09:03)
[2024-05-12] MEDS: Sertraline HCL 100 MG TABLET PO (09:03)
[2024-05-12] MEDS: Valproic Acid 250 MG CAPSULE 1000 MG PO ×2 (09:03→21:54)
[2024-05-12 09:38] LABS: Glucose, Whole Blood 85 mg/dL (60-115)
--- NOTE | 2024-05-12 10:44 | P.PNIM_ITS ---
Subjective Subjective Date of Service: 05/12/24 Interval History: Follow up Cellulitis, subdural hematoma doing ok, resting in bed Review of Systems Review of Systems: Yes Unobtainable due to mental status Physical Exam 2 Vital Signs: Vital Signs: Last Vital Signs Temp 98.6 F 05/12/24 08:00 Pulse 89 05/12/24 08:00 Resp 20 05/12/24 08:00 BP 135/61 05/12/24 08:00 Pulse Ox 95 05/12/24 08:00 O2 Del Method Room Air 05/12/24 08:00 O2 Flow Rate 6 05/09/24 16:16 BMI result Body Mass Index 41.3 Appearing in no acute distress lung sounds are clear to auscultation heart regular rate rhythm, clear S1, S2 positive bowel sounds, abdomen is soft, nontender neuro patient is alert x3, no focal deficits Objective Data Active Medications Acetaminophen (Acetaminophen 325 Mg Tablet) 650 mg PO Q6H PRN PRN Reason: Pain, Mild 1-3,fever,headache Last Admin: 05/10/24 11:35 Dose: 650 mg Documented By: DEEPALI Atorvastatin Calcium (Atorvastatin Calcium 80 Mg Tablet) 80 mg PO DAILY [facility] Last Admin: 05/12/24 09:03 Dose: 80 mg Documented By: HENRIQUE Calcium Carbonate (Calcium Carbonate 750 Mg Tab.Chew) 750 mg PO Q4H PRN PRN Reason: Heartburn Dextrose (Dextrose 50 % 25 Gm/50 Ml Syringe) 25 gm IVPUSH Q15M PRN; Protocol PRN Reason: per Hypoglycemia Standing Ord. Fentanyl (Fentanyl Citrate/Pf 100 Mcg/2 Ml Vial) 25 mcg IVPUSH ONCE PRN PRN Reason: Pain, Severe (Pain Scale 7-10) Last Admin: 05/09/24 16:02 Dose: 25 mcg Documented By: RIMA Ferrous Sulfate (Ferrous Sulfate 324 Mg Tablet.) 324 mg PO DAILY [facility] Last Admin: 05/12/24 09:02 Dose: 324 mg Documented By: HENRIQUE Folic Acid (Folic Acid 1 Mg Tablet) 1 mg PO DAILY [facility] Last Admin: 05/12/24 09:02 Dose: 1 mg Documented By: HENRIQUE Furosemide (Furosemide 40 Mg Tablet) 80 mg PO BID [facility]; Protocol Last Admin: 05/12/24 09:03 Dose: 80 mg Documented By: HENRIQUE Gabapentin (Gabapentin 100 Mg Capsule) 200 mg PO DAILY [facility] Last Admin: 05/12/24 09:03 Dose: 200 mg Documented By: HENRIQUE Gabapentin (Gabapentin 300 Mg Capsule) 300 mg PO MOWEFR@1800 [facility] Last Admin: 05/10/24 18:11 Dose: 300 mg Documented By: DEEPALI Glucose (Glucose Gel 15 Gm Gel..Gram.) 15 gm PO Q15M PRN; Protocol PRN Reason: per Hypoglycemia Standing Ord. Vancomycin HCl 500 mg/ Sodium (Chloride) 110 mls @ 110 mls/hr IV ONCE ONE Stop: 05/04/24 13:44 Piperacillin Sod/Tazobactam (Sod 2.25 gm/ Sodium Chloride) 50 mls @ 100 mls/hr IV Q12H [facility] Last Infusion: 05/12/24 03:45 Dose: Infused Documented By: ELVIN Insulin Glargine (Insulin Glargine,Hum.Rec.Anlog 100 Unit/Ml 10 Ml Vial) 21 unit SUBCUT BEDTIME [facility] Last Admin: 05/11/24 22:14 Dose: 21 unit Documented By: MARGARITA Insulin Human Lispro (Insulin Lispro 100 Unit/Ml 3 Ml Vial) 0 unit SUBCUT QIDACHS [facility]; Protocol Last Admin: 05/12/24 09:38 Dose: Not Given Documented By: HENRIQUE Non-Admin Reason: No Insulin Coverage Labetalol HCl (Labetalol Hcl 100 Mg/20 Ml Vial) 5 mg IVPUSH ONCE PRN PRN Reason: SBP > 160 Levetiracetam (Levetiracetam 500 Mg Tablet) 500 mg PO MOWEFR@1800 [facility] Last Admin: 05/10/24 18:11 Dose: 500 mg Documented By: DEEPALI Lorazepam (Lorazepam 0.5 Mg Tablet) 0.5 mg PO Q8H PRN PRN Reason: anxiety Magnesium Hydroxide (Milk Of Magnesia 30 Ml Oral.Susp) 30 ml PO DAILY PRN PRN Reason: Constipation Melatonin (Melatonin 3 Mg Tablet) 6 mg PO BEDTIME PRN PRN Reason: Insomnia Last Admin: 05/07/24 02:27 Dose: 6 mg Documented By: CONSTANTIN Morphine Sulfate (Morphine Sulfate 2 Mg/Ml Cartridge) 2 mg IVPUSH Q4H PRN; Protocol PRN Reason: Pain, Severe (Pain Scale 7-10) Last Admin: 05/11/24 17:15 Dose: 2 mg Documented By: HENRIQUE Naloxone HCl (Naloxone Hcl 0.4 Mg/Ml Vial) 0.04 mg IVPUSH Q5M PRN PRN Reason: Excessive sedation or RR < 8 Naloxone HCl (Naloxone Hcl 0.4 Mg/Ml Vial) 0.04 mg IVPUSH Q5M PRN PRN Reason: Excessive sedation or RR < 8 Omeprazole (Omeprazole 40 Mg Capsule.Dr) 40 mg PO BID@0630,1630 [facility] Last Admin: 05/12/24 06:48 Dose: 40 mg Documented By: ELVIN Oxycodone HCl (Oxycodone Hcl Immed Release 5 Mg Tablet) 5 mg PO Q4H PRN PRN Reason: Pain, Moderate(Pain Scale 4-6) Last Admin: 05/11/24 13:49 Dose: 5 mg Documented By: HENRIQUE Pharmacy Consult (Consult Rx Vancomycin Dosing) 1 each MISCELLANE DAILY PRN PRN Reason: Consult order Phenytoin Sodium (Phenytoin Sodium Extended 100 Mg Capsule) 100 mg PO TID [facility] Last Admin: 05/12/24 09:03 Dose: 100 mg Documented By: HENRIQUE Sertraline HCl (Sertraline Hcl 100 Mg Tablet) 100 mg PO DAILY [facility] Last Admin: 05/12/24 09:03 Dose: 100 mg Documented By: HENRIQUE Sodium Chloride (0.9 % Sodium Chloride Flush 3 Ml Syringe) 3 ml IVFLUSH [facility] Last Admin: 05/12/24 09:03 Dose: 3 ml Documented By: HENRIQUE Trazodone HCl (Trazodone Hcl 100 Mg Tablet) 100 mg PO BEDTIME PRN PRN Reason: Sleep Last Admin: 05/10/24 21:12 Dose: 100 mg Documented By: NAM Valproic Acid (Valproic Acid 250 Mg Capsule) 1,000 mg PO BID [facility] Last Admin: 05/12/24 09:03 Dose: 1,000 mg Documented By: HENRIQUE Vitamin D (Cholecalciferol (Vitamin D3) 25 Mcg Tablet) 50 mcg PO DAILY [facility] Last Admin: 05/12/24 09:02 Dose: 50 mcg Documented By: HENRIQUE Labs 05/11/24 06:22 05/11/24 06:22 Labs: Laboratory Results - last 24 hr 05/08/24 05/11/24 05/11/24 06:22 11:46 16:13 POC Glucose 84 123 H Levetiracetam 7.9 05/11/24 05/12/24 20:51 07:24 POC Glucose 167 H 85 Levetiracetam Microbiology Microbiology Results: Microbiology 05/07/24 20:30 Urine Culture - Final Urine clean catch Ira albicans Enterococcus faecium 05/09/24 15:10 Gram Stain - Final Heel, Right Routine Culture - Final Staphylococcus aureus Assessment and Plan (1) Cellulitis: Status: Acute (2) Diabetes mellitus with hypoglycemia: Status: Acute Plan Lori Reid is a 68-year-old woman admitted with: Abdominal pain KUB showing possible Ileus and large stool burden abd CT ordered for follow up clear diet for now Subdural hematoma CT small right parafalcine subdural hematoma up to 4 mm in thickness stable; traumatic S/p fall at home with head strike on table; no LOC; neuro exam intact; pt AO x3; GCS 15 ED contacted Neurosurgery at [facility] - no interventions needed. Hold aspirin. Left foot cellulitis. 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 ESR/CRP elevated. Continue vancomycin and Zosyn, started 05/04/2024 S/P excisional debridement, Dr. Vines. Continue wound care Acute on chronic anemia of chronic disease Continue to monitor H&H Will transfuse as needed. Question of community-acquired pneumonia Denies symptoms. Denies shortness on breath. Oxygen saturation is 96 on room air. ua also has pyuria /bacteruria CXR showed probable right lower lobe pneumonia Continue IV antibiotic therapy with Zosyn and vancomycin. ESRD on HD M/W/ Continue inpatient hemodialysis Hemodialysis catheter replaced by IR due to poor function. Follow BMP, phosphorus and magnesium Type 2 diabetes mellitus Sliding-scale insulin, Lantus Diabetic diet Seizure disorder No recent episodes of seizures. Continue levetiracetam, valproate, and phenytoin. HTN amlodipine. Labetalol IV as needed. Mood disorder Continue sertraline, lorazepam Hyperlipidemia Continue atorvastatin Full Code DVT Prophylaxis: Pneumatic compression (subdural hematoma) Quality Stroke Does the patient have a stroke diagnosis?: No VTE Prior VTE?: No VTE Risk Level:: Medical - moderate - high VTE Device Contraindication: N/A - Device Ordered VTE Drug Contraindication: Treatment Not Indicated
[2024-05-12] MEDS: oxyCODONE HCl Immed Release 5 MG TABLET PO (11:19)
[2024-05-12 11:38] LABS: Glucose, Whole Blood 175 mg/dL (60-115)
[2024-05-12 21:05] LABS: Glucose, Whole Blood 108 mg/dL (60-115)
[2024-05-12 21:05] LABS: Glucose, Whole Blood 177 mg/dL (60-115)
[2024-05-12] MEDS: Insulin Glargine,Hum.rec.anlog 100 UNIT/ML 10 ML VIAL 21 UNIT SUBCUT (21:59)
[2024-05-13] MEDS: Piperacillin Sodium/Tazobactam 2.25 GM in 0.9 % Sodium Chloride 50 ML IV ×2 (02:50→14:38)
[2024-05-13 03:38] VITALS: BP 108/52; PULSE 89; RESP 19; TEMP 36.6; O2SAT 98
[2024-05-13] MEDS: Omeprazole 40 MG CAPSULE.DR PO ×2 (05:37→16:35)
[2024-05-13] MEDS: Acetaminophen 325 MG TABLET 650 MG PO (05:37)
[2024-05-13 07:19] VITALS: BP 135/58; PULSE 97; RESP 16; TEMP 36.8; O2SAT 99
[2024-05-13] MEDS: Atorvastatin Calcium 80 MG TABLET PO (08:10)
[2024-05-13] MEDS: Furosemide 40 MG TABLET 80 MG PO ×2 (08:10→21:41)
[2024-05-13] MEDS: Cholecalciferol (Vitamin D3) 25 MCG TABLET 50 MCG PO (08:10)
[2024-05-13] MEDS: Phenytoin Sodium Extended 100 MG CAPSULE PO ×3 (08:10→21:41)
[2024-05-13] MEDS: Valproic Acid 250 MG CAPSULE 1000 MG PO ×2 (08:10→21:40)
[2024-05-13] MEDS: Folic Acid 1 MG TABLET PO (08:11)
[2024-05-13] MEDS: Gabapentin 100 MG CAPSULE 200 MG PO (08:11)
[2024-05-13] MEDS: Ferrous Sulfate 324 MG TABLET.DR PO (08:11)
[2024-05-13] MEDS: Sertraline HCL 100 MG TABLET PO (08:11)
[2024-05-13 08:13] LABS: Glucose, Whole Blood 98 mg/dL (60-115)
[2024-05-13] MEDS: 0.9 % Sodium Chloride Flush 3 ML SYRINGE IVFLUSH ×4 (10:20→21:43)
[2024-05-13 10:50] VITALS: BP 150/60; PULSE 94; RESP 16; TEMP 36.8; O2SAT 96
[2024-05-13 11:21] LABS: Glucose, Whole Blood 124 mg/dL (60-115)
--- NOTE | 2024-05-13 11:24 | MHC.CM.PN ---
Addendum entered by Kenyatta Mcclain 05/13/24 12:25: [facility] NOT [facility] A B[facility] TODAY, HOWEVER THEY EXPECT TO HAVE ONE TOMORROW Original Note: CM AND RN MET WITH PT AND DAUGHTER WITH A [employer] PTS DAUGHTER CONFIRMS SHE WOULD LIKE THE PT TO GO TO STR SHE SAYS BESIDES PHYSICAL CONDITION, THE PT WILL NOT FOLLOW RECOMMENDED DIET RN DISCUSSED THE IMPORTANCE OF PTS DIET AND PER DISCUSSION, DAUGHTER WILL ASK SNF TO EDUCATE PT DAILY WHILE SHE IS THERE [facility] REVIEW[facility] AND MAY HAVE A BED FOR PT TODAY VS TOMORROW
--- NOTE | 2024-05-13 12:43 | P.PNIM_ITS ---
Subjective Subjective Date of Service: 05/13/24 Interval History: Follow up Cellulitis, subdural hematoma doing ok, resting in bed Review of Systems Review of Systems: Yes Unobtainable due to mental status Physical Exam 2 Vital Signs: Vital Signs: Last Vital Signs Temp 98.3 F 05/13/24 10:50 Pulse 94 05/13/24 10:50 Resp 16 05/13/24 10:50 BP 150/60 H 05/13/24 10:50 Pulse Ox 96 05/13/24 10:50 O2 Del Method Room Air 05/13/24 10:50 O2 Flow Rate 6 05/09/24 16:16 BMI result Body Mass Index 41.3 Appearing in no acute distress lung sounds are clear to auscultation heart regular rate rhythm, clear S1, S2 positive bowel sounds, abdomen is soft, nontender neuro patient is alert x3, no focal deficits Objective Data Active Medications Acetaminophen (Acetaminophen 325 Mg Tablet) 650 mg PO Q6H PRN PRN Reason: Pain, Mild 1-3,fever,headache Last Admin: 05/13/24 05:37 Dose: 650 mg Documented By: JARED Atorvastatin Calcium (Atorvastatin Calcium 80 Mg Tablet) 80 mg PO DAILY [facility] Last Admin: 05/13/24 08:10 Dose: 80 mg Documented By: ALISON Calcium Carbonate (Calcium Carbonate 750 Mg Tab.Chew) 750 mg PO Q4H PRN PRN Reason: Heartburn Dextrose (Dextrose 50 % 25 Gm/50 Ml Syringe) 25 gm IVPUSH Q15M PRN; Protocol PRN Reason: per Hypoglycemia Standing Ord. Fentanyl (Fentanyl Citrate/Pf 100 Mcg/2 Ml Vial) 25 mcg IVPUSH ONCE PRN PRN Reason: Pain, Severe (Pain Scale 7-10) Last Admin: 05/09/24 16:02 Dose: 25 mcg Documented By: RIMA Ferrous Sulfate (Ferrous Sulfate 324 Mg Tablet.) 324 mg PO DAILY [facility] Last Admin: 05/13/24 08:11 Dose: 324 mg Documented By: ALISON Folic Acid (Folic Acid 1 Mg Tablet) 1 mg PO DAILY [facility] Last Admin: 05/13/24 08:11 Dose: 1 mg Documented By: ALISON Furosemide (Furosemide 40 Mg Tablet) 80 mg PO BID [facility]; Protocol Last Admin: 05/13/24 08:10 Dose: 80 mg Documented By: ALISON Gabapentin (Gabapentin 100 Mg Capsule) 200 mg PO DAILY [facility] Last Admin: 05/13/24 08:11 Dose: 200 mg Documented By: ALISON Gabapentin (Gabapentin 300 Mg Capsule) 300 mg PO MOWEFR@1800 [facility] Last Admin: 05/10/24 18:11 Dose: 300 mg Documented By: DEEPALI Glucose (Glucose Gel 15 Gm Gel..Gram.) 15 gm PO Q15M PRN; Protocol PRN Reason: per Hypoglycemia Standing Ord. Vancomycin HCl 500 mg/ Sodium (Chloride) 110 mls @ 110 mls/hr IV ONCE ONE Stop: 05/04/24 13:44 Piperacillin Sod/Tazobactam (Sod 2.25 gm/ Sodium Chloride) 50 mls @ 100 mls/hr IV Q12H [facility] Last Infusion: 05/13/24 03:25 Dose: Infused Documented By: NAM Insulin Glargine (Insulin Glargine,Hum.Rec.Anlog 100 Unit/Ml 10 Ml Vial) 21 unit SUBCUT BEDTIME [facility] Last Admin: 05/12/24 21:59 Dose: 21 unit Documented By: JARED Insulin Human Lispro (Insulin Lispro 100 Unit/Ml 3 Ml Vial) 0 unit SUBCUT QIDACHS [facility]; Protocol Last Admin: 05/13/24 10:19 Dose: Not Given Documented By: ALISON Non-Admin Reason: No Insulin Coverage Labetalol HCl (Labetalol Hcl 100 Mg/20 Ml Vial) 5 mg IVPUSH ONCE PRN PRN Reason: SBP > 160 Levetiracetam (Levetiracetam 500 Mg Tablet) 500 mg PO MOWEFR@1800 [facility] Last Admin: 05/10/24 18:11 Dose: 500 mg Documented By: DEEPALI Lorazepam (Lorazepam 0.5 Mg Tablet) 0.5 mg PO Q8H PRN PRN Reason: anxiety Magnesium Hydroxide (Milk Of Magnesia 30 Ml Oral.Susp) 30 ml PO DAILY PRN PRN Reason: Constipation Melatonin (Melatonin 3 Mg Tablet) 6 mg PO BEDTIME PRN PRN Reason: Insomnia Last Admin: 05/07/24 02:27 Dose: 6 mg Documented By: CONSTANTIN Morphine Sulfate (Morphine Sulfate 2 Mg/Ml Cartridge) 2 mg IVPUSH Q4H PRN; Protocol PRN Reason: Pain, Severe (Pain Scale 7-10) Last Admin: 05/11/24 17:15 Dose: 2 mg Documented By: HENRIQUE Naloxone HCl (Naloxone Hcl 0.4 Mg/Ml Vial) 0.04 mg IVPUSH Q5M PRN PRN Reason: Excessive sedation or RR < 8 Naloxone HCl (Naloxone Hcl 0.4 Mg/Ml Vial) 0.04 mg IVPUSH Q5M PRN PRN Reason: Excessive sedation or RR < 8 Omeprazole (Omeprazole 40 Mg Capsule.Dr) 40 mg PO BID@0630,1630 [facility] Last Admin: 05/13/24 05:37 Dose: 40 mg Documented By: JARED Oxycodone HCl (Oxycodone Hcl Immed Release 5 Mg Tablet) 5 mg PO Q4H PRN PRN Reason: Pain, Moderate(Pain Scale 4-6) Last Admin: 05/12/24 11:19 Dose: 5 mg Documented By: HENRIQUE Pharmacy Consult (Consult Rx Vancomycin Dosing) 1 each MISCELLANE DAILY PRN PRN Reason: Consult order Phenytoin Sodium (Phenytoin Sodium Extended 100 Mg Capsule) 100 mg PO TID [facility] Last Admin: 05/13/24 08:10 Dose: 100 mg Documented By: ALISON Sertraline HCl (Sertraline Hcl 100 Mg Tablet) 100 mg PO DAILY [facility] Last Admin: 05/13/24 08:11 Dose: 100 mg Documented By: ALISON Sodium Chloride (0.9 % Sodium Chloride Flush 3 Ml Syringe) [facility] Last Admin: 05/13/24 10:20 Dose: 3 ml Documented By: ALISON Trazodone HCl (Trazodone Hcl 100 Mg Tablet) 100 mg PO BEDTIME PRN PRN Reason: Sleep Last Admin: 05/10/24 21:12 Dose: 100 mg Documented By: NAM Valproic Acid (Valproic Acid 250 Mg Capsule) 1,000 mg PO BID [facility] Last Admin: 05/13/24 08:10 Dose: 1,000 mg Documented By: ALISON Vitamin D (Cholecalciferol (Vitamin D3) 25 Mcg Tablet) 50 mcg PO DAILY [facility] Last Admin: 05/13/24 08:10 Dose: 50 mcg Documented By: ALISON Labs 05/11/24 06:22 05/11/24 06:22 Labs: Laboratory Results - last 24 hr 05/12/24 05/12/24 05/13/24 16:23 20:28 07:27 POC Glucose 177 H 108 98 05/13/24 11:11 POC Glucose 124 H Assessment and Plan (1) Cellulitis: Status: Acute (2) Diabetes mellitus with hypoglycemia: Status: Acute Plan Lori Reid is a 68-year-old woman admitted with: Abdominal pain. Resolved KUB showing possible Ileus and large stool burden patient had BM as RN advance diet Subdural hematoma CT small right parafalcine subdural hematoma up to 4 mm in thickness stable; traumatic S/p fall at home with head strike on table; no LOC; neuro exam intact; pt AO x3; GCS 15 ED contacted Neurosurgery at [facility] - no interventions needed. Hold aspirin. Left foot cellulitis. 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 ESR/CRP elevated. Continue vancomycin and Zosyn, started 05/04/2024 S/P excisional debridement, Dr. Vines. Continue wound care Acute on chronic anemia of chronic disease Continue to monitor H&H Will transfuse as needed. Question of community-acquired pneumonia Denies symptoms. Denies shortness on breath. Oxygen saturation is 96 on room air. ua also has pyuria /bacteruria CXR showed probable right lower lobe pneumonia Continue IV antibiotic therapy with Zosyn and vancomycin. ESRD on HD M/W/ Continue inpatient hemodialysis Hemodialysis catheter replaced by IR due to poor function. Follow BMP, phosphorus and magnesium Type 2 diabetes mellitus Sliding-scale insulin, Lantus Diabetic diet Seizure disorder No recent episodes of seizures. Continue levetiracetam, valproate, and phenytoin. HTN amlodipine. Labetalol IV as needed. Mood disorder Continue sertraline, lorazepam Hyperlipidemia Continue atorvastatin Full Code DVT Prophylaxis: Pneumatic compression (subdural hematoma) Quality Stroke Does the patient have a stroke diagnosis?: No VTE Prior VTE?: No VTE Risk Level:: Medical - moderate - high VTE Device Contraindication: N/A - Device Ordered VTE Drug Contraindication: Treatment Not Indicated
[2024-05-13 15:20] VITALS: BP 158/68; PULSE 88; RESP 18; TEMP 36.7; O2SAT 97
--- NOTE | 2024-05-13 16:08 | P.PNNP_ITS ---
Subjective Subjective Date of Service: 05/13/24 Interval history: Seen and examiend, events noted Physical Exam 2 Vital Signs: Vital Signs: Last Vital Signs Temp 98.1 F 05/13/24 15:20 Pulse 88 05/13/24 15:20 Resp 18 05/13/24 15:20 BP 158/68 H 05/13/24 15:20 Pulse Ox 97 05/13/24 15:20 O2 Del Method Room Air 05/13/24 15:20 O2 Flow Rate 6 05/09/24 16:16 BMI result Body Mass Index 41.3 Const: General: no acute distress Nutritional Appearance: well nourished Resp: Effort & Inspection: normal respiratory effort, no audible wheezes, no cough and no respiratory distress GI: Inspection: Yes normal to inspection Neuro: Other: She is little bit drowsy but able to communicate answer questions and follow commands. Face is symmetrical. Visual lambert are full. There is no focal arm or leg weakness. Plantars are flexor. Deep tendon reflexes are absent in chronic sign of neuropathy are noted in feet. 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 Incision is noted to be open with some surrounding callus formation. No purulence discharge was identified. Slight erythema is noted in the surrounding skin. Objective Data Labs 05/11/24 06:22 05/11/24 06:22 Labs: Laboratory Results - last 24 hr 05/12/24 05/12/24 05/13/24 16:23 20:28 07:27 POC Glucose 177 H 108 98 05/13/24 11:11 POC Glucose 124 H Microbiology Microbiology Results: Microbiology 05/07/24 20:30 Urine clean catch Urine Culture - Final Ira albicans Enterococcus faecium 05/09/24 15:10 Heel, Right Gram Stain - Final 05/09/24 15:10 Heel, Right Routine Culture - Final Staphylococcus aureus 05/04/24 08:25 Blood - Venous Blood Culture - Final No growth after 5 days. 05/04/24 08:26 Blood - Venous Blood Culture - Final No growth after 5 days. 05/04/24 15:12 Urine clean catch - Clean Catch Midstream Urine Culture - Final Procedures Date of Service Date of Service: 05/13/24 Assessment & Plan Assessment and plan (1) Acute subdural hematoma: Status: Acute Assessment and Plan: 68 years old woman with underlying end-stage renal disease severe anemia, left frontal craniotomy and encephalomalacia of unknown cause and probably related seizure disorder, and multifactorial gait disorder who had a mechanical fall at home resulting in tiny right parafalcine subdural hemorrhage. Bleed was stable and did not require any intervention or follow-up imaging at this time. Plan 1. ESRD: usu MWF at HDU 2. 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 Wounds 5. Unsteady gait and ques safety with going home 6. Hemoaccess: needs Pcath replaced REC: HD mwf; epo/fe; abx as noted; d/c planning--ques go to rehab instead of hoemat time of d/c--PT and daughte to talk to team HD may be pusheed tpo tomorrow d/t scheduling issues Will follow wteam Time Spent With Patient Time: Total time managing care of this patient today ____ minutes. Progress Note: Quality Stroke Does the patient have a stroke diagnosis?: No
[2024-05-13] MEDS: Gabapentin 300 MG CAPSULE PO (16:35)
[2024-05-13] MEDS: oxyCODONE HCl Immed Release 5 MG TABLET PO (16:35)
[2024-05-13] MEDS: levETIRAcetam 500 MG TABLET PO (16:35)
[2024-05-13 18:02] LABS: Glucose, Whole Blood 135 mg/dL (60-115)
[2024-05-13 19:22] LABS: Vancomycin Random 8.2 mcg/mL (15-20)
[2024-05-13 20:00] VITALS: BP 108/51; PULSE 105; RESP 18; TEMP 37.2; O2SAT 95
[2024-05-13 21:21] LABS: Glucose, Whole Blood 154 mg/dL (60-115)
[2024-05-13] MEDS: Insulin Glargine,Hum.rec.anlog 100 UNIT/ML 10 ML VIAL 21 UNIT SUBCUT (21:42)
[2024-05-13] MEDS: vancomycin HCL 500 MG in 0.9 % Sodium Chloride 100 ML 110 MG IV (21:42)
[2024-05-13 23:26] VITALS: BP 147/63; PULSE 102; RESP 18; TEMP 36.4; O2SAT 94
[2024-05-14] VITALS (7 sets, daily range): BP systolic 122–158; BP diastolic 55–82; PULSE 89–100; RESP 16–20; TEMP 36.2–38.1; O2SAT 94–100
[2024-05-14] MEDS: Piperacillin Sodium/Tazobactam 2.25 GM in 0.9 % Sodium Chloride 50 ML IV (02:43)
[2024-05-14] MEDS: Omeprazole 40 MG CAPSULE.DR PO ×2 (05:38→15:15)
--- NOTE | 2024-05-14 07:32 | P.DS_ITS ---
DS: Providers Provider Date of Service: 05/22/24 Date of admission: 05/04/24 12:22 Date of discharge: 05/22/24 Primary care physician: Lucrecia Teixeira MD Consults: 05/04/24 12:27 Consult to General Surgery Routine Consulting Provider: [facility] Reason for consultation: ?debridement of multiple wounds, s/p left toe amp in 03/202405/04/24 12:37 Consult to Nephrology Routine Consulting Provider: [facility] Reason for consultation: ESRD on HD MWF 05/04/24 22:11 Consult to Wound Care Routine Reason for consultation: multiple unstageable wounds 05/05/24 07:39 Consult to Neurology Routine Consulting Provider: [facility] Reason for consultation: subdural hemtoma Has provider been notified: No 05/06/24 15:50 Consult to Infectious Diseases Routine Consulting Provider: [facility] Reason for consultation: foot infection Has provider been notified: No DS: Diagnosis Discharge Diagnosis (1) Acute subdural hematoma: Status: Acute DS: Summary Hospital Course Hospital Course: HP as per admitting provider. Pt is a 68-year-old female with a PMH significant for?ESRD on HD M/W/F, HFpEF,aeizure disorder, insulin-dependent type 2 diabetes, hx of osteomyelitis s/p left 5th toe amp on 03/28/2024, anemia of chronic disease requiring frequent transfusions, asthma, HTN, and GERD who presents to the ED after fall at home earlier this morning as pt was ambulating to the bathroom. Pt uses walker at home. Reports feeling ?shaky? and legs gave out while in the living room. Pt fell backwards, striking her head on a side table and also landing on her back and right hip. Pt lives with family and daughter primarily takes care of her. Pt did not want to wake daughter to help to the bathroom. Pt denies LOC, lightheadedness, or dizziness. Small initial headache that soon resolved. Pt with hx falls, reports last fell 3 weeks ago. Pt is supposed to have VNA services twice a week especially with help for wound care, but pt reports no one has stopped by for the past 2 weeks. Daughter has been taking care of and re-dressing wounds. Pt reports has areas of bruising on torso and lower extremities secondary to falls. Chronic back and lower extremity musculoskeletal pain around baseline. Currently pt denies lightheadedness, dizziness. No headache or acute vision changes. Denies shortness or breath or difficulty breathing. No cough. Denies chest pain/pressure, palpitations. CTA of head showed small subdural hematoma. Patient's GCS 15. ED clinician reached out to [facility] neurosurgery who recommended repeat CT in 6 hours time and if stable no further intervention required at this time. Repeat CT showed tiny stable subdural hematoma. GCS continued to be 15. In the ED pt with low-grade fever of 100.7, tachycardia up to 104, tachypnea up to 26, and soft BP as low as 99/57. Labs were significant for chronic leukocytosis slightly above baseline at 15.5, H&H 6.0/17.5, creatinine 5.48, initial lactic acid 2.2 with repeat 1.6, albumin 2.8. No significant electrolyte abnormalities. CTA of head showed small focal hyperdense parafalcine subdural hematoma up to 4 mm in thickness without mass effect, midline shift, or hydrocephalus. Repeat CT 6 hours with stable subdural hematoma. CT of cervical spine negative for acute findings. CXR showed probable right lower lobe pneumonia. EKG demonstrated normal sinus rhythm without evidence of significant ST elevations or depressions. Pt was treated with acetaminophen, morphine IVF, vancomycin and ceftriaxone. Pt was also transfused two units PBRCs. Pt will be admitted to the hospital for treatment further evaluation of multiple issues, including subdural hematoma s/p fall at home, and generalized weakness with fall at home in the setting of acute on chronic anemia, cellulitis with sepsis secondary to chronic diabetic foot ulcer, at community-acquired pneumonia. 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 as per general surgery santyl for enzymatic debridement surgery following> s/p debridement 05/21/24 Discussed with Nephrology>rec stop all calcium supplements, start sodium thiosulfate after dialysis days Subdural hematoma CT small right parafalcine subdural hematoma up to 4 mm in thickness; repeat CT 6 hours later stable S/p fall at home with head strike on table; no LOC; neuro exam intact; pt AO x3; GCS 15 ED clinician contacted Neurosurgery at [facility] who said no intervention necessary Neurology -no further work up Hold aspirin head zeyad x7 removed 05/14 Left foot cellulitis with sepsis/osteomyelitis S/P fifth digit amputation d/t diabetic foot infection osteomyelitis on 03/28/2024. initially met sepsis criteria with tachycardia, tachypnea and leukocytosis above baseline; lactic acid 2.2 repeat 1.5 continue vancomycin , seen by ID, rec 6 weeks IV abx upon discharge blood cultures negative seen by surgery s/p debridement 05/09, 05/21 Community-acquired pneumonia CXR showed probable right lower lobe pneumonia Treated with Zosyn and vancomycin. toxic metabolic encephalopathy Sedating meds including Seroquel, trazodone, gabapentin placed on hold but will continue at dc resumed lower dose of gabapentin due to complaints of pain UTI Urine culture growing VRE discussed with ID likely colonization, no need to treat, zyvox stopped Hypokalemia. Resolved. Repleted with IV and po Abdominal pain. KUB showing Ileus and large stool burden, resolved with stool softener ESRD on HD //. all calcium ninding agents stopped Acute on chronic anemia of chronic disease Type 2 diabetes mellitus. continue home medications Seizure disorder, No recent episodes of seizures. Continue levetiracetam, valproate, and phenytoin. HTN, amlodipine. Mood disorder, Continue sertraline, lorazepam Hyperlipidemia, Continue atorvastatin Less than 30 day stay Time Attestation Discharge Coordination Time (in mins): 45 Quality: Safe Use of Opioids Does Pt have an Active Cancer Diagnosis on the Problem List?: No Quality: Stroke Does the patient have a stroke diagnosis?: No Physical Exam 2 Vital Signs: Vital Signs: Last Vital Signs Temp 97.1 F 05/14/24 03:56 Pulse 97 05/14/24 03:56 Resp 18 05/14/24 03:56 BP 139/62 05/14/24 03:56 Pulse Ox 94 05/14/24 03:56 O2 Del Method Room Air 05/14/24 03:56 O2 Flow Rate 6 05/09/24 16:16 BMI result Body Mass Index 41.3 DS: Data Data Completed and Pending Completed studies during hospitalization [Text1]: Pending at discharge 05/09/24 15:33 Surgical [PTH] Routine Procedures Detachment at Left 5th Toe, Complete, Open Approach (03/22/24) Dilation of Right Ureter with Intraluminal Device, Via Natural or Artificial Opening Endoscopic (05/29/22) Extirpation of Matter from Right Ureter, Via Natural or Artificial Opening Endoscopic (05/29/22) Fluoroscopy of Right Kidney, Ureter and Bladder (10/02/21) Fluoroscopy of Right Kidney, Ureter and Bladder using Low Osmolar Contrast (05/29/22) Insertion of Infusion Device into Right Atrium, Percutaneous Approach (03/22/24) Insertion of Infusion Device into Right Basilic Vein, Percutaneous Approach (10/27/23) Insertion of Infusion Device into Superior Vena Cava, Percutaneous Approach (03/22/24) Insertion of Tunneled Vascular Access Device into Chest Subcutaneous Tissue and Fascia, Percutaneous Approach (03/22/24) Introduction of Remdesivir Anti-infective into Peripheral Vein, Percutaneous Approach, [employer] (03/28/20) Performance of Urinary Filtration, Intermittent, Less than 6 Hours Per Day (04/08/24) Transfusion of Nonautologous Red Blood Cells into Peripheral Vein, Percutaneous Approach (03/22/24) Ultrasonography of Superior Vena Cava, Guidance (03/22/24) Labs on day of discharge: Laboratory Results - last 24 hr 05/13/24 05/13/24 05/13/24 07:27 11:11 16:25 POC Glucose 98 124 H 135 H Random Vancomycin 05/13/24 05/13/24 18:56 21:10 POC Glucose 154 H Random Vancomycin 8.2 L Discharge Plan Discharge Anticipated Discharge Date/Time: 05/22/24 14:02 Patient Disposition: [facility] Discharge Diagnosis: Abdominal pain Subdural hematoma Left foot cellulitis Acute on chronic anemia Community-acquired pneumonia End-stage renal disease on dialysis Calciphylaxis Referrals: [facility] [Outside] - 1 Day (SHORT TERM REHAB) Lucrecia Teixeira MD [Primary Care Provider] - 1 Week Discharge Medications: New Retacrit 10,000 unit/mL Solution 10,000 unit subcut MoWeFr@1645 Qty: 10 0RF insulin glargine [Lantus U-100 Insulin] 100 unit/mL Solution 10 unit subcut BEDTIME Qty: 10 0RF oxycodone 5 mg Tablet 5 mg PO Q4H PRN (Reason: Pain, Severe (Pain Scale 7-10)) Qty: 30 0RF Rx Instructions: Partial Fill upon patient request. sodium thiosulfate 12.5 gram/100mL (125 mg/mL) solution 13 g IV 3XW Qty: 100 0RF Rx Instructions: dialysis days vancomycin 500 mg recon soln 500 mg IV 3XW Continued (DME) FreeStyle Lite Strips Strip MISCELLANEOUS QID (DME) blood-glucose meter [FreeStyle Grassflat Lite] Kit MISCELLANEOUS BID (DME) lancets [FreeStyle Lancets] 28 gauge misc 1 gauge topical BID omeprazole 40 mg capsule,delayed release(DR/EC) 40 mg PO BID@0630,1630 atorvastatin 80 mg tablet 80 mg PO DAILY amlodipine 10 mg tablet 10 mg PO DAILY phenytoin sodium extended [Dilantin Extended] 100 mg Capsule 100 mg PO TID Qty: 90 2RF ferrous gluconate 324 mg (38 mg iron) tablet 324 mg PO DAILY cholecalciferol (vitamin D3) 50 mcg (2,000 unit) Tablet 50 mcg PO DAILY valproic acid 250 mg capsule 1,000 mg PO BID acetaminophen 650 mg tablet extended release 650 mg PO Q8H PRN (Reason: mild pain) losartan 100 mg tablet 100 mg PO BID diclofenac sodium 1 % gel 2 g topical BEDTIME PRN (Reason: Pain) Rx Instructions: APPLY 2 GRAMS TOPICALLY TO FEET AT BEDTIME NEEDED folic acid 1 mg Tablet 1 mg PO DAILY Qty: 90 0RF furosemide 40 mg tablet 80 mg PO BID lorazepam 0.5 mg tablet 0.5 mg PO DAILY PRN (Reason: anxiety) gabapentin 300 mg capsule 300 mg PO MOWEFR@1800 Rx Instructions: after dialysis sertraline 50 mg tablet 100 mg PO DAILY gabapentin 100 mg capsule 200 mg PO DAILY levetiracetam 500 mg tablet 500 mg PO MOWEFR@1800 Rx Instructions: give after dialysis (DME) blood pressure test kit-large Kit See Rx Instructions .ROUTE DAILY Qty: 1 Rx Instructions: As directed (DME) nebulizers [facility] See Rx Instructions .Route Rx Instructions: As directed trazodone 50 mg tablet 100 mg PO BEDTIME PRN (Reason: Sleep) (DME) lancets [TRUEplus Lancets] 33 gauge misc See Rx Instructions .ROUTE BID Qty: 100 Rx Instructions: As directed Discontinued aspirin 81 mg tablet,delayed release (DR/EC) 81 mg PO DAILY insulin glargine [Basaglar KwikPen U-100 Insulin] 100 unit/mL (3 mL) insulin pen 30 unit subcut BEDTIME Discharge Orders: Discharge Order (Routine); Ordered 05/22/24 Ordered By: Erin Al Diet: Advance to usual diet Activity on Discharge: As tolerated Stand Alone Forms: Patient Portal Discharge page Print Language: Indonesian Care Plan Goals: Transfer to short-term rehab for physical therapy Health Concerns: Abdominal pain Subdural hematoma Left foot cellulitis Acute on chronic anemia Community-acquired pneumonia End-stage renal disease on dialysis Calciphylaxis Plan of Treatment: Follow-up with primary care provider as needed Take all medications as prescribed Assessment: See discharge summary
[2024-05-14 07:57] LABS: Glucose, Whole Blood 79 mg/dL (60-115)
[2024-05-14] MEDS: 0.9 % Sodium Chloride Flush 3 ML SYRINGE IVFLUSH ×2 (09:57→15:15)
[2024-05-14] MEDS: Furosemide 40 MG TABLET 80 MG PO ×2 (09:57→22:35)
[2024-05-14] MEDS: Phenytoin Sodium Extended 100 MG CAPSULE PO ×3 (09:57→22:35)
[2024-05-14] MEDS: Valproic Acid 250 MG CAPSULE 1000 MG PO ×2 (09:58→22:35)
[2024-05-14] MEDS: Sertraline HCL 100 MG TABLET PO (09:58)
[2024-05-14] MEDS: Cholecalciferol (Vitamin D3) 25 MCG TABLET 50 MCG PO (09:58)
[2024-05-14] MEDS: Ferrous Sulfate 324 MG TABLET.DR PO (09:58)
[2024-05-14] MEDS: Gabapentin 100 MG CAPSULE 200 MG PO (09:58)
[2024-05-14] MEDS: oxyCODONE HCl Immed Release 5 MG TABLET PO ×2 (09:58→15:13)
[2024-05-14] MEDS: Folic Acid 1 MG TABLET PO (09:58)
[2024-05-14] MEDS: Atorvastatin Calcium 80 MG TABLET PO (09:58)
[2024-05-14 12:43] LABS: Glucose, Whole Blood 78 mg/dL (60-115)
--- NOTE | 2024-05-14 13:52 | HO.PM.IMPN ---
Subjective Subjective Date of Service: 05/14/24 Interval History: Follow up Cellulitis, subdural hematoma doing ok, resting in bed Review of Systems Review of Systems: Yes Unobtainable due to mental status Physical Exam Vital Signs: Vital Signs: Last Vital Signs Temp 99.4 F 05/14/24 11:58 Pulse 100 05/14/24 11:58 Resp 20 05/14/24 11:58 BP 150/82 H 05/14/24 11:58 Pulse Ox 100 05/14/24 11:58 O2 Del Method Room Air 05/14/24 11:58 O2 Flow Rate 6 05/09/24 16:16 BMI result Body Mass Index 41.3 Appearing in no acute distress lung sounds are clear to auscultation heart regular rate rhythm, clear S1, S2 positive bowel sounds, abdomen is soft, nontender neuro patient is alert x3, no focal deficits posterior head zeyad removed Objective Data Active Medications Acetaminophen (Acetaminophen 325 Mg Tablet) 650 mg PO Q6H PRN PRN Reason: Pain, Mild 1-3,fever,headache Last Admin: 05/13/24 05:37 Dose: 650 mg Documented By: JARED Atorvastatin Calcium (Atorvastatin Calcium 80 Mg Tablet) 80 mg PO DAILY [facility] Last Admin: 05/14/24 09:58 Dose: 80 mg Documented By: DOC Calcium Carbonate (Calcium Carbonate 750 Mg Tab.Chew) 750 mg PO Q4H PRN PRN Reason: Heartburn Dextrose (Dextrose 50 % 25 Gm/50 Ml Syringe) 25 gm IVPUSH Q15M PRN; Protocol PRN Reason: per Hypoglycemia Standing Ord. Fentanyl (Fentanyl Citrate/Pf 100 Mcg/2 Ml Vial) 25 mcg IVPUSH ONCE PRN PRN Reason: Pain, Severe (Pain Scale 7-10) Last Admin: 05/09/24 16:02 Dose: 25 mcg Documented By: RIMA Ferrous Sulfate (Ferrous Sulfate 324 Mg Tablet.Dr) 324 mg PO DAILY [facility] Last Admin: 05/14/24 09:58 Dose: 324 mg Documented By: DOC Folic Acid (Folic Acid 1 Mg Tablet) 1 mg PO DAILY [facility] Last Admin: 05/14/24 09:58 Dose: 1 mg Documented By: DOC Furosemide (Furosemide 40 Mg Tablet) 80 mg PO BID [facility]; Protocol Last Admin: 05/14/24 09:57 Dose: 80 mg Documented By: DOC Gabapentin (Gabapentin 100 Mg Capsule) 200 mg PO DAILY [facility] Last Admin: 05/14/24 09:58 Dose: 200 mg Documented By: DOC Gabapentin (Gabapentin 300 Mg Capsule) 300 mg PO MOWEFR@1800 [facility] Last Admin: 05/13/24 16:35 Dose: 300 mg Documented By: ALISON Glucose (Glucose Gel 15 Gm Gel..Gram.) 15 gm PO Q15M PRN; Protocol PRN Reason: per Hypoglycemia Standing Ord. Vancomycin HCl 500 mg/ Sodium (Chloride) 110 mls @ 110 mls/hr IV ONCE ONE Stop: 05/04/24 13:44 Insulin Glargine (Insulin Glargine,Hum.Rec.Anlog 100 Unit/Ml 10 Ml Vial) 21 unit SUBCUT BEDTIME [facility] Last Admin: 05/13/24 21:42 Dose: 21 unit Documented By: DOUGLAS Insulin Human Lispro (Insulin Lispro 100 Unit/Ml 3 Ml Vial) 0 unit SUBCUT QIDACHS [facility]; Protocol Last Admin: 05/14/24 13:03 Dose: Not Given Documented By: DOC Non-Admin Reason: No Insulin Coverage Labetalol HCl (Labetalol Hcl 100 Mg/20 Ml Vial) 5 mg IVPUSH ONCE PRN PRN Reason: SBP > 160 Levetiracetam (Levetiracetam 500 Mg Tablet) 500 mg PO MOWEFR@1800 [facility] Last Admin: 05/13/24 16:35 Dose: 500 mg Documented By: ALISON Lorazepam (Lorazepam 0.5 Mg Tablet) 0.5 mg PO Q8H PRN PRN Reason: anxiety Magnesium Hydroxide (Milk Of Magnesia 30 Ml Oral.Susp) 30 ml PO DAILY PRN PRN Reason: Constipation Melatonin (Melatonin 3 Mg Tablet) 6 mg PO BEDTIME PRN PRN Reason: Insomnia Last Admin: 05/07/24 02:27 Dose: 6 mg Documented By: CONSTANTIN Morphine Sulfate (Morphine Sulfate 2 Mg/Ml Cartridge) 2 mg IVPUSH Q4H PRN; Protocol PRN Reason: Pain, Severe (Pain Scale 7-10) Last Admin: 05/11/24 17:15 Dose: 2 mg Documented By: HENRIQUE Naloxone HCl (Naloxone Hcl 0.4 Mg/Ml Vial) 0.04 mg IVPUSH Q5M PRN PRN Reason: Excessive sedation or RR < 8 Naloxone HCl (Naloxone Hcl 0.4 Mg/Ml Vial) 0.04 mg IVPUSH Q5M PRN PRN Reason: Excessive sedation or RR < 8 Omeprazole (Omeprazole 40 Mg Capsule.Dr) 40 mg PO BID@0630,1630 [facility] Last Admin: 05/14/24 05:38 Dose: 40 mg Documented By: DOUGLAS Oxycodone HCl (Oxycodone Hcl Immed Release 5 Mg Tablet) 5 mg PO Q4H PRN PRN Reason: Pain, Moderate(Pain Scale 4-6) Last Admin: 05/14/24 09:58 Dose: 5 mg Documented By: DOC Phenytoin Sodium (Phenytoin Sodium Extended 100 Mg Capsule) 100 mg PO TID [facility] Last Admin: 05/14/24 09:57 Dose: 100 mg Documented By: DOC Sertraline HCl (Sertraline Hcl 100 Mg Tablet) 100 mg PO DAILY [facility] Last Admin: 05/14/24 09:58 Dose: 100 mg Documented By: DOC Sodium Chloride (0.9 % Sodium Chloride Flush 3 Ml Syringe) 3 ml IVFLUSH QSHIFT [facility] Last Admin: 05/14/24 09:57 Dose: 3 ml Documented By: DOC Trazodone HCl (Trazodone Hcl 100 Mg Tablet) 100 mg PO BEDTIME PRN PRN Reason: Sleep Last Admin: 05/10/24 21:12 Dose: 100 mg Documented By: NAM Valproic Acid (Valproic Acid 250 Mg Capsule) 1,000 mg PO BID [facility] Last Admin: 05/14/24 09:58 Dose: 1,000 mg Documented By: DOC Vitamin D (Cholecalciferol (Vitamin D3) 25 Mcg Tablet) 50 mcg PO DAILY [facility] Last Admin: 05/14/24 09:58 Dose: 50 mcg Documented By: DOC Labs 05/11/24 06:22 05/11/24 06:22 Labs: Laboratory Results - last 24 hr 05/13/24 05/13/24 05/13/24 16:25 18:56 21:10 POC Glucose 135 H 154 H Random Vancomycin 8.2 L 05/14/24 05/14/24 07:16 12:39 POC Glucose 79 78 Random Vancomycin Assessment and Plan (1) Cellulitis: Status: Acute (2) Diabetes mellitus with hypoglycemia: Status: Acute Plan Lori Reid is a 68-year-old woman admitted with: Abdominal pain. Resolved KUB showing possible Ileus and large stool burden patient had BM as per RN advance diet Subdural hematoma CT small right parafalcine subdural hematoma up to 4 mm in thickness stable; traumatic S/p fall at home with head strike on table; no LOC; neuro exam intact; pt AO x3; GCS 15 ED contacted Neurosurgery at [facility] - no interventions needed. Hold aspirin. head zeyad removed today Left foot cellulitis. 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 ESR/CRP elevated. Continue vancomycin and Zosyn, started 05/04/2024 S/P excisional debridement, Dr. Vines. Continue wound care Acute on chronic anemia of chronic disease Continue to monitor H&H Will transfuse as needed. Question of community-acquired pneumonia Denies symptoms. Denies shortness on breath. Oxygen saturation is 96 on room air. ua also has pyuria /bacteruria CXR showed probable right lower lobe pneumonia Continue IV antibiotic therapy with Zosyn and vancomycin. ESRD on HD M// Continue inpatient hemodialysis Hemodialysis catheter replaced by IR due to poor function. Follow BMP, phosphorus and magnesium Type 2 diabetes mellitus Sliding-scale insulin, Lantus Diabetic diet Seizure disorder No recent episodes of seizures. Continue levetiracetam, valproate, and phenytoin. HTN amlodipine. Labetalol IV as needed. Mood disorder Continue sertraline, lorazepam Hyperlipidemia Continue atorvastatin Full Code DVT Prophylaxis: Pneumatic compression (subdural hematoma) Quality Stroke Does the patient have a stroke diagnosis?: No VTE Prior VTE?: No VTE Risk Level:: Medical - moderate - high VTE Device Contraindication: N/A - Device Ordered VTE Drug Contraindication: Treatment Not Indicated
--- NOTE | 2024-05-14 15:48 | MHC.CM.PN ---
Addendum entered by Shari Gomes 05/14/24 16:14: Bed offer received from [facility] [place], they are willing to set up transport for pt to get to HD. This CM called pts daughter Manuel to review bed offer, pts daughter very upset and stated she was there before and it was a horrible experience, she will not let her mom go there. This CM explained it was the only current bed offer, but that we will look for another facility. Original Note: EMR reviewed and per MD rounds, pt is ready for discharge pending STR bed offer. [facility] does not currently have an available bed to offer. Referral expanded, awaiting STR bed offer.
[2024-05-14 16:33] LABS: Glucose, Whole Blood 69 mg/dL (60-115)
[2024-05-14] MEDS: Linezolid/D5W 600 MG/300 ML PIGGYBACK 300 MG IV (16:36)
[2024-05-14] MEDS: Glucose Gel 15 GM GEL..GRAM. PO (16:36)
[2024-05-14] MEDS: LORazepam 0.5 MG TABLET PO (16:36)
[2024-05-14] MEDS: Acetaminophen 325 MG TABLET 650 MG PO ×2 (16:36→22:46)
[2024-05-14 16:39] LABS: Hematocrit 22.4 % (37.0-47.0); Hemoglobin 7.2 g/dl (12.0-16.0); Mean Corpuscular HGB Conc 32.1 g/dl (31.0-35.0); Mean Corpuscular Hemoglobin 29.1 pg (27.0-33.0); Mean Corpuscular Volume 90.7 fL (80.0-98.0); Mean Platelet Volume 11.9 fL (9.4-12.3); Red Blood Count 2.47 X10*6/uL (4.20-5.50); Red Cell Distribution Width 22.5 % (11.0-16.0); White Blood Count 15.3 X10*3/uL (4.8-10.8)
[2024-05-14 16:42] LABS: VBG HCO3 22 mmol/L (22-26); VBG pCO2 26 mmHg; VBG pH 7.53 (7.32-7.43); VBG pO2 100 mmHg
[2024-05-14 16:42] LABS: Venous Blood Gas Refer to POC result
[2024-05-14 16:46] LABS: Platelet Count 35 X10*3/uL (160-400)
[2024-05-14 17:05] LABS: Glucose, Whole Blood 94 mg/dL (60-115)
[2024-05-14 17:15] LABS: Anion Gap 21 (12-20); Blood Urea Nitrogen 60 mg/dL (9-16); Calcium 8.3 mg/dL (8.4-10.2); Carbon Dioxide 20 mmol/L (22-29); Chloride 103 mmol/L (96-108); Creatinine Clr Calc Pharmacy 10.8; Estimated Glomerular Filt Rate 7; Glucose Random 65 mg/dL (60-115); Potassium 4.6 mmol/L (3.3-5.1); Sodium 139 mmol/L (135-145)
[2024-05-14 20:51] LABS: Glucose, Whole Blood 117 mg/dL (60-115)
--- NOTE | 2024-05-14 22:02 | P.PNNP_ITS ---
Subjective Subjective Date of Service: 05/14/24 Interval history: Seen and examined, events noted Physical Exam 2 Vital Signs: Vital Signs: Last Vital Signs Temp 99.4 F 05/14/24 19:40 Pulse 100 05/14/24 19:40 Resp 18 05/14/24 19:40 BP 158/72 H 05/14/24 19:40 Pulse Ox 95 05/14/24 19:40 O2 Del Method Room Air 05/14/24 19:40 O2 Flow Rate 6 05/09/24 16:16 BMI result Body Mass Index 41.3 Const: General: no acute distress Nutritional Appearance: well nourished Resp: Effort & Inspection: normal respiratory effort, no audible wheezes, no cough and no respiratory distress GI: Inspection: Yes normal to inspection Neuro: Other: She is little bit drowsy but able to communicate answer questions and follow commands. Face is symmetrical. Visual lambert are full. There is no focal arm or leg weakness. Plantars are flexor. Deep tendon reflexes are absent in chronic sign of neuropathy are noted in feet. 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 Incision is noted to be open with some surrounding callus formation. No purulence discharge was identified. Slight erythema is noted in the surrounding skin. Objective Data Labs 05/14/24 16:30 05/14/24 16:30 Labs: Laboratory Results - last 24 hr 05/14/24 05/14/24 05/14/24 07:16 12:39 16:24 WBC RBC Hgb Hct MCV MCH MCHC RDW Plt Count MPV Absolute Nucleated RBC Nucleated RBC % (auto) VBG pH VBG pCO2 VBG pO2 VBG HCO3 VBG O2 Saturation VBG Base Excess Sodium Potassium Chloride Carbon Dioxide Anion Gap BUN Creatinine Estim Creat Clear Calc Estimated GFR POC Glucose 79 78 69 Random Glucose Calcium 05/14/24 05/14/24 05/14/24 16:30 16:38 17:02 WBC 15.3 H RBC 2.47 L Hgb 7.2 L Hct 22.4 L MCV 90.7 MCH 29.1 MCHC 32.1 RDW 22.5 H Plt Count 35 L D MPV 11.9 Absolute Nucleated RBC 0.000 Nucleated RBC % (auto) 0.0 VBG pH 7.53 H VBG pCO2 26 VBG pO2 100 VBG HCO3 22 VBG O2 Saturation 100.0 VBG Base Excess 1.0 Sodium 139 Potassium 4.6 D Chloride 103 Carbon Dioxide 20 L Anion Gap 21 H BUN 60 H Creatinine 5.66 H* Estim Creat Clear Calc 10.8 Estimated GFR 7 POC Glucose 94 Random Glucose 65 Calcium 8.3 L 05/14/24 20:26 WBC RBC Hgb Hct MCV MCH MCHC RDW Plt Count MPV Absolute Nucleated RBC Nucleated RBC % (auto) VBG pH VBG pCO2 VBG pO2 VBG HCO3 VBG O2 Saturation VBG Base Excess Sodium Potassium Chloride Carbon Dioxide Anion Gap BUN Creatinine Estim Creat Clear Calc Estimated GFR POC Glucose 117 H Random Glucose Calcium Microbiology Microbiology Results: Microbiology 05/07/24 20:30 Urine clean catch Urine Culture - Final Ira albicans Enterococcus faecium 05/09/24 15:10 Heel, Right Gram Stain - Final 05/09/24 15:10 Heel, Right Routine Culture - Final Staphylococcus aureus 05/04/24 08:25 Blood - Venous Blood Culture - Final No growth after 5 days. 05/04/24 08:26 Blood - Venous Blood Culture - Final No growth after 5 days. 05/04/24 15:12 Urine clean catch - Clean Catch Midstream Urine Culture - Final Procedures Date of Service Date of Service: 05/14/24 Assessment & Plan Assessment and plan (1) Acute subdural hematoma: Status: Acute Assessment and Plan: 68 years old woman with underlying end-stage renal disease severe anemia, left frontal craniotomy and encephalomalacia of unknown cause and probably related seizure disorder, and multifactorial gait disorder who had a mechanical fall at home resulting in tiny right parafalcine subdural hemorrhage. Bleed was stable and did not require any intervention or follow-up imaging at this time. Plan 1. ESRD: usu MWF at HDU 2. 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 Wounds 5. Unsteady gait and ques safety with going home 6. Hemoaccess: needs Pcath replaced REC: HD mwf; epo/fe; abx as noted; d/c planning--ques go to rehab instead of hoemat time of d/c--PT and daughte to talk to team Will follow w team Time Spent With Patient Time: Total time managing care of this patient today ____ minutes. Progress Note: Quality Stroke Does the patient have a stroke diagnosis?: No
[2024-05-15] VITALS: PULSE 89; RESP 18; TEMP 37.6; O2SAT 94
[2024-05-15 03:51] VITALS: BP 128/60; PULSE 80; RESP 18; TEMP 37.2; O2SAT 98
[2024-05-15] MEDS: Omeprazole 40 MG CAPSULE.DR PO ×2 (05:48→16:09)
[2024-05-15] MEDS: Linezolid/D5W 600 MG/300 ML PIGGYBACK 300 MG IV ×2 (05:48→18:47)
[2024-05-15 08:00] VITALS: BP 142/65; PULSE 82; RESP 20; TEMP 36.8; O2SAT 96
[2024-05-15] MEDS: Atorvastatin Calcium 80 MG TABLET PO (08:19)
[2024-05-15] MEDS: Furosemide 40 MG TABLET 80 MG PO ×2 (08:19→19:59)
[2024-05-15] MEDS: Valproic Acid 250 MG CAPSULE 1000 MG PO ×2 (08:20→20:02)
[2024-05-15] MEDS: Ferrous Sulfate 324 MG TABLET.DR PO (08:20)
[2024-05-15] MEDS: Phenytoin Sodium Extended 100 MG CAPSULE PO ×3 (08:20→20:02)
[2024-05-15] MEDS: Folic Acid 1 MG TABLET PO (08:20)
[2024-05-15] MEDS: Cholecalciferol (Vitamin D3) 25 MCG TABLET 50 MCG PO (08:20)
[2024-05-15] MEDS: Sertraline HCL 100 MG TABLET PO (08:20)
[2024-05-15] MEDS: 0.9 % Sodium Chloride Flush 3 ML SYRINGE IVFLUSH ×2 (08:21→16:09)
[2024-05-15 08:28] LABS: Glucose, Whole Blood 91 mg/dL (60-115)
[2024-05-15] MEDS: Alteplase Cath Clear 2 MG/2 ML VIAL INTRACATH (09:15)
[2024-05-15 11:02] LABS: Glucose, Whole Blood 129 mg/dL (60-115)
[2024-05-15 11:15] LABS: Appearance Urine Hazy; Color Urine Yellow; Glucose Urine UA Negative (Negative); Leukocyte Esterase Urine Moderate (2+) (Negative); Nitrite Urine Negative (Negative); Specific Gravity - Urine 1.015 (1.005-1.025); UMIC TRIGGER UACC YES; Urine Blood Small (1+) (Negative); Urine Ketones Negative (Negative); Urine Protein 300 (3+) mg/dL (Neg-Trace)
[2024-05-15 11:31] LABS: Bacteria Urine Trace (None Seen); Hyaline Casts Urine 0-2 /LPF (0-2); UACC Culture Trigger YES
[2024-05-15 11:43] VITALS: BP 141/63; PULSE 93; RESP 20; TEMP 37; O2SAT 98
--- NOTE | 2024-05-15 11:47 | MHC.CM.PN ---
EMR reviewed and per MD rounds, pt is not medically cleared for discharge and needs some medication changes. [facility] still following for STR placement, and state they may have an available bed tomorrow 05/16.
--- NOTE | 2024-05-15 14:34 | P.PNIM_ITS ---
Subjective Subjective Date of Service: 05/15/24 Interval History: Follow up Cellulitis, subdural hematoma doing ok but still sleepy Review of Systems Review of Systems: Yes Unobtainable due to mental status Physical Exam 2 Vital Signs: Vital Signs: Last Vital Signs Temp 98.6 F 05/15/24 11:43 Pulse 93 05/15/24 11:43 Resp 20 05/15/24 11:43 BP 141/63 H 05/15/24 11:43 Pulse Ox 98 05/15/24 11:43 O2 Del Method Room Air 05/15/24 11:43 O2 Flow Rate 6 05/09/24 16:16 BMI result Body Mass Index 41.3 Appearing in no acute distress lung sounds are clear to auscultation heart regular rate rhythm, clear S1, S2 positive bowel sounds, abdomen is soft, nontender neuro patient is alert x3, no focal deficits Objective Data Active Medications Acetaminophen (Acetaminophen 325 Mg Tablet) 650 mg PO Q6H PRN PRN Reason: Pain, Mild 1-3,fever,headache Last Admin: 05/14/24 22:46 Dose: 650 mg Documented By: SIRI Alteplase, Recombinant (Alteplase Cath Clear 2 Mg/2 Ml Vial) 2 mg INTRACATH ONCE PRN PRN Reason: dialysis Atorvastatin Calcium (Atorvastatin Calcium 80 Mg Tablet) 80 mg PO DAILY [facility] Last Admin: 05/15/24 08:19 Dose: 80 mg Documented By: ALISON Calcium Carbonate (Calcium Carbonate 750 Mg Tab.Chew) 750 mg PO Q4H PRN PRN Reason: Heartburn Dextrose (Dextrose 50 % 25 Gm/50 Ml Syringe) 25 gm IVPUSH Q15M PRN; Protocol PRN Reason: per Hypoglycemia Standing Ord. Ferrous Sulfate (Ferrous Sulfate 324 Mg Tablet.) 324 mg PO DAILY [facility] Last Admin: 05/15/24 08:20 Dose: 324 mg Documented By: ALISON Folic Acid (Folic Acid 1 Mg Tablet) 1 mg PO DAILY [facility] Last Admin: 05/15/24 08:20 Dose: 1 mg Documented By: ALISON Furosemide (Furosemide 40 Mg Tablet) 80 mg PO BID [facility]; Protocol Last Admin: 05/15/24 08:19 Dose: 80 mg Documented By: ALISON Gabapentin (Gabapentin 100 Mg Capsule) 200 mg PO DAILY [facility] Last Admin: 05/15/24 11:12 Dose: Not Given Documented By: ALIOSN Non-Admin Reason: Physician Held Med Gabapentin (Gabapentin 300 Mg Capsule) 300 mg PO MOWEFR@1800 [facility] Last Admin: 05/13/24 16:35 Dose: 300 mg Documented By: ALISON Glucose (Glucose Gel 15 Gm Gel..Gram.) 15 gm PO Q15M PRN; Protocol PRN Reason: per Hypoglycemia Standing Ord. Last Admin: 05/14/24 16:36 Dose: 15 gm Documented By: DOC Linezolid (Zyvox/D5w) 600 mg in 300 mls @ 300 mls/hr IV Q12H [facility] Last Infusion: 05/15/24 06:49 Dose: Infused Documented By: SIRI Insulin Glargine (Insulin Glargine,Hum.Rec.Anlog 100 Unit/Ml 10 Ml Vial) 21 unit SUBCUT BEDTIME [facility] Last Admin: 05/14/24 22:34 Dose: Not Given Documented By: SIRI Non-Admin Reason: Patient Refused Insulin Human Lispro (Insulin Lispro 100 Unit/Ml 3 Ml Vial) 0 unit SUBCUT QIDACHS [facility]; Protocol Last Admin: 05/15/24 13:29 Dose: Not Given Documented By: ALISON Non-Admin Reason: No Insulin Coverage Labetalol HCl (Labetalol Hcl 100 Mg/20 Ml Vial) 5 mg IVPUSH ONCE PRN PRN Reason: SBP > 160 Levetiracetam (Levetiracetam 500 Mg Tablet) 500 mg PO MOWEFR@1800 [facility] Last Admin: 05/13/24 16:35 Dose: 500 mg Documented By: ALISON Lorazepam (Lorazepam 0.5 Mg Tablet) 0.5 mg PO Q8H PRN PRN Reason: anxiety Last Admin: 05/14/24 16:36 Dose: 0.5 mg Documented By: DOC Magnesium Hydroxide (Milk Of Magnesia 30 Ml Oral.Susp) 30 ml PO DAILY PRN PRN Reason: Constipation Melatonin (Melatonin 3 Mg Tablet) 6 mg PO BEDTIME PRN PRN Reason: Insomnia Last Admin: 05/07/24 02:27 Dose: 6 mg Documented By: CONSTANTIN Morphine Sulfate (Morphine Sulfate 2 Mg/Ml Cartridge) 2 mg IVPUSH Q4H PRN; Protocol PRN Reason: Pain, Severe (Pain Scale 7-10) Last Admin: 05/11/24 17:15 Dose: 2 mg Documented By: HENRIQUE Naloxone HCl (Naloxone Hcl 0.4 Mg/Ml Vial) 0.04 mg IVPUSH Q5M PRN PRN Reason: Excessive sedation or RR < 8 Naloxone HCl (Naloxone Hcl 0.4 Mg/Ml Vial) 0.04 mg IVPUSH Q5M PRN PRN Reason: Excessive sedation or RR < 8 Omeprazole (Omeprazole 40 Mg Capsule.) 40 mg PO BID@0630,1630 [facility] Last Admin: 05/15/24 05:48 Dose: 40 mg Documented By: SIRI Phenytoin Sodium (Phenytoin Sodium Extended 100 Mg Capsule) 100 mg PO TID [facility] Last Admin: 05/15/24 08:20 Dose: 100 mg Documented By: ALISON Sertraline HCl (Sertraline Hcl 100 Mg Tablet) 100 mg PO DAILY [facility] Last Admin: 05/15/24 08:20 Dose: 100 mg Documented By: ALISON Sodium Chloride (0.9 % Sodium Chloride Flush 3 Ml Syringe) [address] [facility] Last Admin: 05/15/24 08:21 Dose: 3 ml Documented By: ALISON Trazodone HCl (Trazodone Hcl 100 Mg Tablet) 100 mg PO BEDTIME PRN PRN Reason: Sleep Last Admin: 05/10/24 21:12 Dose: 100 mg Documented By: NAM Valproic Acid (Valproic Acid 250 Mg Capsule) 1,000 mg PO BID [facility] Last Admin: 05/15/24 08:20 Dose: 1,000 mg Documented By: ALISON Vitamin D (Cholecalciferol (Vitamin D3) 25 Mcg Tablet) 50 mcg PO DAILY [facility] Last Admin: 05/15/24 08:20 Dose: 50 mcg Documented By: ALISON Labs 05/14/24 16:30 05/14/24 16:30 Labs: Laboratory Results - last 24 hr 05/14/24 05/14/24 05/14/24 16:24 16:30 16:38 MCV 90.7 MCH 29.1 MCHC 32.1 RDW 22.5 H Plt Count 35 L D MPV 11.9 Absolute Nucleated RBC 0.000 Nucleated RBC % (auto) 0.0 VBG pH 7.53 H VBG pCO2 26 VBG pO2 100 VBG HCO3 22 VBG O2 Saturation 100.0 VBG Base Excess 1.0 Anion Gap 21 H Estim Creat Clear Calc 10.8 Estimated GFR 7 POC Glucose 69 Random Glucose 65 Calcium 8.3 L Urine Color Urine Appearance Urine pH Ur Specific [place] Urine Protein Urine Glucose (UA) Urine Ketones Urine Blood Urine Nitrite Ur Leukocyte Esterase Urine RBC Urine WBC Ur Squamous Epith Cells Urine Bacteria Hyaline Casts Urine Yeast 05/14/24 05/14/24 05/15/24 17:02 20:26 08:10 MCV MCH MCHC RDW Plt Count MPV Absolute Nucleated RBC Nucleated RBC % (auto) VBG pH VBG pCO2 VBG pO2 VBG HCO3 VBG O2 Saturation VBG Base Excess Anion Gap Estim Creat Clear Calc Estimated GFR POC Glucose 94 117 H 91 Random Glucose Calcium Urine Color Urine Appearance Urine pH Ur Specific [place] Urine Protein Urine Glucose (UA) Urine Ketones Urine Blood Urine Nitrite Ur Leukocyte Esterase Urine RBC Urine WBC Ur Squamous Epith Cells Urine Bacteria Hyaline Casts Urine Yeast 05/15/24 05/15/24 10:24 10:57 MCV MCH MCHC RDW Plt Count MPV Absolute Nucleated RBC Nucleated RBC % (auto) VBG pH VBG pCO2 VBG pO2 VBG HCO3 VBG O2 Saturation VBG Base Excess Anion Gap Estim Creat Clear Calc Estimated GFR POC Glucose 129 H Random Glucose Calcium Urine Color Yellow Urine Appearance Hazy Urine pH 6.0 Ur Specific [place] 1.015 Urine Protein 300 (3+) H Urine Glucose (UA) Negative Urine Ketones Negative Urine Blood Small (1+) H Urine Nitrite Negative Ur Leukocyte Esterase Moderate (2+) H Urine RBC 6-10 H Urine WBC 11-20 Ur Squamous Epith Cells 6-10 Urine Bacteria Trace Hyaline Casts 0-2 Urine Yeast Present Assessment and Plan (1) Cellulitis: Status: Acute (2) Diabetes mellitus with hypoglycemia: Status: Acute Plan Lori Reid is a 68-year-old woman admitted with: Encephalopathy ? UTI, started Rocephin cxr neg, RPP pending held gabapentin, trazodone, seroquel UTI Rocephin possibly causing encephalopathy Follow final cx Abdominal pain. Resolved KUB showing possible Ileus and large stool burden patient had BM as per RN advance diet Subdural hematoma CT small right parafalcine subdural hematoma up to 4 mm in thickness stable; traumatic S/p fall at home with head strike on table; no LOC; neuro exam intact; pt AO x3; GCS 15 ED contacted Neurosurgery at [facility] - no interventions needed. Hold aspirin. head zeyad removed 05/14/24 Left foot cellulitis. 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 ESR/CRP elevated. Continue vancomycin and Zosyn, started 05/04/2024 S/P excisional debridement, Dr. Vines. Continue wound care Acute on chronic anemia of chronic disease Continue to monitor H&H Will transfuse as needed. Question of community-acquired pneumonia Denies symptoms. Denies shortness on breath. Oxygen saturation is 96 on room air. ua also has pyuria /bacteruria CXR showed probable right lower lobe pneumonia s/p Zosyn and vancomycin. ESRD on HD M/W/ Continue inpatient hemodialysis Hemodialysis catheter replaced by IR due to poor function. Follow BMP, phosphorus and magnesium Type 2 diabetes mellitus Sliding-scale insulin, Lantus Diabetic diet Seizure disorder No recent episodes of seizures. Continue levetiracetam, valproate, and phenytoin. HTN amlodipine. Labetalol IV as needed. Mood disorder Continue sertraline, lorazepam Hyperlipidemia Continue atorvastatin Full Code DVT Prophylaxis: Pneumatic compression (subdural hematoma) Quality Stroke Does the patient have a stroke diagnosis?: No VTE Prior VTE?: No VTE Risk Level:: Medical - moderate - high VTE Device Contraindication: N/A - Device Ordered VTE Drug Contraindication: Treatment Not Indicated
[2024-05-15] MEDS: cefTRIAXone sodium 1 GM VIAL IVPUSH (16:09)
[2024-05-15 16:30] LABS: Glucose, Whole Blood 99 mg/dL (60-115)
--- NOTE | 2024-05-15 17:35 | P.PNNP_ITS ---
Subjective Subjective Date of Service: 05/15/24 Interval history: Seen and examined, events noted Physical Exam 2 Vital Signs: Vital Signs: Last Vital Signs Temp 98.6 F 05/15/24 11:43 Pulse 93 05/15/24 11:43 Resp 20 05/15/24 11:43 BP 141/63 H 05/15/24 11:43 Pulse Ox 98 05/15/24 11:43 O2 Del Method Room Air 05/15/24 11:43 O2 Flow Rate 6 05/09/24 16:16 BMI result Body Mass Index 41.3 Const: General: no acute distress Nutritional Appearance: well nourished Resp: Effort & Inspection: normal respiratory effort, no audible wheezes, no cough and no respiratory distress GI: Inspection: Yes normal to inspection Neuro: Other: She is little bit drowsy but able to communicate answer questions and follow commands. Face is symmetrical. Visual lambert are full. There is no focal arm or leg weakness. Plantars are flexor. Deep tendon reflexes are absent in chronic sign of neuropathy are noted in feet. 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 Incision is noted to be open with some surrounding callus formation. No purulence discharge was identified. Slight erythema is noted in the surrounding skin. Objective Data Labs 05/14/24 16:30 05/14/24 16:30 Labs: Laboratory Results - last 24 hr 05/14/24 05/15/24 05/15/24 20:26 08:10 10:24 POC Glucose 117 H 91 Urine Color Yellow Urine Appearance Hazy Urine pH 6.0 Ur Specific [place] 1.015 Urine Protein 300 (3+) H Urine Glucose (UA) Negative Urine Ketones Negative Urine Blood Small (1+) H Urine Nitrite Negative Ur Leukocyte Esterase Moderate (2+) H Urine RBC 6-10 H Urine WBC 11-20 Ur Squamous Epith Cells 6-10 Urine Bacteria Trace Hyaline Casts 0-2 Urine Yeast Present 05/15/24 05/15/24 10:57 16:27 POC Glucose 129 H 99 Urine Color Urine Appearance Urine pH Ur Specific [place] Urine Protein Urine Glucose (UA) Urine Ketones Urine Blood Urine Nitrite Ur Leukocyte Esterase Urine RBC Urine WBC Ur Squamous Epith Cells Urine Bacteria Hyaline Casts Urine Yeast Microbiology Microbiology Results: Microbiology 05/07/24 20:30 Urine clean catch Urine Culture - Final Ira albicans Enterococcus faecium 05/09/24 15:10 Heel, Right Gram Stain - Final 05/09/24 15:10 Heel, Right Routine Culture - Final Staphylococcus aureus 05/04/24 08:25 Blood - Venous Blood Culture - Final No growth after 5 days. 05/04/24 08:26 Blood - Venous Blood Culture - Final No growth after 5 days. 05/04/24 15:12 Urine clean catch - Clean Catch Midstream Urine Culture - Final Procedures Date of Service Date of Service: 05/15/24 Assessment & Plan Assessment and plan (1) Acute subdural hematoma: Status: Acute Assessment and Plan: 68 years old woman with underlying end-stage renal disease severe anemia, left frontal craniotomy and encephalomalacia of unknown cause and probably related seizure disorder, and multifactorial gait disorder who had a mechanical fall at home resulting in tiny right parafalcine subdural hemorrhage. Bleed was stable and did not require any intervention or follow-up imaging at this time. Plan 1. ESRD: usu MWF at HDU 2. 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 Wounds 5. Unsteady gait and ques safety with going home 6. Hemoaccess: s/p Pcath replaced and still poor flows--will try cathflow today REC: cont HD mwf; epo/fe; abx as noted; d/c planning--ques go to rehab instead of hoemat time of d/c--PT and stefanie to talk to team Will follow w team Time Spent With Patient Time: Total time managing care of this patient today ____ minutes. Progress Note: Quality Stroke Does the patient have a stroke diagnosis?: No
[2024-05-15 19:57] LABS: Vancomycin Random 12.9 mcg/mL (15-20)
[2024-05-15 20:00] VITALS: BP 135/64; PULSE 100; RESP 20; TEMP 36.1; O2SAT 98
[2024-05-15] MEDS: Acetaminophen 325 MG TABLET 650 MG PO (20:01)
[2024-05-15] MEDS: levETIRAcetam 500 MG TABLET PO (20:01)
[2024-05-15 20:18] LABS: Glucose, Whole Blood 183 mg/dL (60-115)
[2024-05-15] MEDS: Insulin Glargine,Hum.rec.anlog 100 UNIT/ML 10 ML VIAL 21 UNIT SUBCUT (20:20)
[2024-05-15 23:23] VITALS: BP 117/57; PULSE 91; RESP 18; TEMP 36.4; O2SAT 99
[2024-05-16 03:15] VITALS: BP 130/58; PULSE 86; RESP 18; TEMP 36.5; O2SAT 98
[2024-05-16] MEDS: Acetaminophen 325 MG TABLET 650 MG PO ×3 (05:42→23:14)
[2024-05-16] MEDS: Linezolid/D5W 600 MG/300 ML PIGGYBACK 300 MG IV (05:43)
[2024-05-16] MEDS: Omeprazole 40 MG CAPSULE.DR PO ×2 (05:43→15:37)
[2024-05-16 06:21] LABS: Anion Gap 18 (12-20); Blood Urea Nitrogen 37 mg/dL (9-16); Calcium 7.9 mg/dL (8.4-10.2); Carbon Dioxide 24 mmol/L (22-29); Chloride 101 mmol/L (96-108); Creatinine Clr Calc Pharmacy 15.8; Estimated Glomerular Filt Rate 12; Glucose Random 160 mg/dL (60-115); Potassium 3.7 mmol/L (3.3-5.1); Sodium 139 mmol/L (135-145)
[2024-05-16 07:15] VITALS: BP 137/59; PULSE 85; RESP 18; TEMP 36.8; O2SAT 97
[2024-05-16 07:25] LABS: Glucose, Whole Blood 162 mg/dL (60-115)
[2024-05-16] MEDS: Cholecalciferol (Vitamin D3) 25 MCG TABLET 50 MCG PO (08:11)
[2024-05-16] MEDS: Atorvastatin Calcium 80 MG TABLET PO (08:11)
[2024-05-16] MEDS: Phenytoin Sodium Extended 100 MG CAPSULE PO ×3 (08:11→20:29)
[2024-05-16] MEDS: Furosemide 40 MG TABLET 80 MG PO ×2 (08:12→20:29)
[2024-05-16] MEDS: Nystatin Powder 15 GM BOTTLE 1 APPL TOPICAL ×3 (08:12→20:33)
[2024-05-16] MEDS: Ferrous Sulfate 324 MG TABLET.DR PO (08:12)
[2024-05-16] MEDS: Folic Acid 1 MG TABLET PO (08:12)
[2024-05-16] MEDS: Valproic Acid 250 MG CAPSULE 1000 MG PO ×2 (08:18→20:30)
[2024-05-16 09:47] LABS: Ammonia 43 umol/L (13-55)
[2024-05-16 11:57] VITALS: BP 130/62; PULSE 100; RESP 18; TEMP 36.4; O2SAT 100
[2024-05-16 12:04] LABS: Glucose, Whole Blood 100 mg/dL (60-115)
[2024-05-16 12:31] LABS: Adenovirus PCR Not Detected (Not Detect.); Bordetella parapertussis PCR Not Detected (Not Detect.); Bordetella pertussis PCR Not Detected (Not Detect.); Chlamydia pneumoniae PCR Not Detected (Not Detect.); Coronavirus 229E PCR Not Detected (Not Detect.); Coronavirus HKU1 PCR Not Detected (Not Detect.); Coronavirus NL63 PCR Not Detected (Not Detect.); Coronavirus OC43 PCR Not Detected (Not Detect.); Human metapneumovirus PCR Not Detected (Not Detect.); Influenza A PCR Not Detected (Not Detect.); Influenza B PCR Not Detected (Not Detect.); Mycoplasma pneumoniae PCR Not Detected (Not Detect.); Parainfluenza 1 PCR Not Detected (Not Detect.); Parainfluenza 2 PCR Not Detected (Not Detect.); Parainfluenza 3 PCR Not Detected (Not Detect.); Parainfluenza 4 PCR Not Detected (Not Detect.); RSV PCR Not Detected (Not Detect.); Rhino/Enterovirus PCR Not Detected (Not Detect.)
[2024-05-16 12:33] LABS: Influenza A H1 PCR Not Detected (Not Detect.); Influenza A H1-2009 PCR Not Detected (Not Detect.); SARS-CoV-2 PCR Not Detected (Not Detect.)
[2024-05-16 12:34] LABS: Influenza A H3 PCR Not Detected (Not Detect.)
--- NOTE | 2024-05-16 12:45 | PC.NURSE ---
cad detailer performed all dressing changes. pt yelling and crying stating she is in pain. md informed. prn's being administered.
--- NOTE | 2024-05-16 12:54 | HO.WOUND ---
Wound Consult: Follow up 68yr old? female admitted to [facility] on 05/04/24- See progress notes and H&P for detailed history.? Wound consult follow up for Multiple wounds present on admission.? Community Living Coach present the whole time - this was beneficial to the patient as she called out in pain throughout the assessment and dressing change. Patient agreeable to assessment and photo documentation.? Chart review questions if the wounds are secondary to falls at home. See history in chart review for right thigh wound - progression has been atypical and some of the wounds are not typical pressure locations and progressions. Seen by Dr. Vines and performed Left thigh and Right Heel debridement in OR and Biopsy sent. Biopsy results as Gangrenous tissue - no etiology provided. TT with Dr. Vines and DHARA Galindo my recommendation to switch patient to Santyl due to little improvement to various wound beds - They are in agreement and will order Santyl. The left foot wound is a non-healing surgical incision from an amputation - topical recommendations made by Dr Salas for Durafiber - Wound was assessed and changed today - less concerning no odor noted but remain with adherent slough to wound bed recommend continued Durafiber AG. Left Posterior Calf 05/07/24 05/16/24 Left Lateral thigh 05/07/24 05/16/24 Right Lateral Thigh 05/07/24 05/16/24 Bilateral Thigh and Left Posterior leg Etiology: ??Unclear etiology at this time - Recommend Biopsy to rule out Calciphylaxis Wound Bed: various stages of wound progression Drainage / Odor: Mild odor noted to Right Heel and Right Thigh Edges: ? irregular and non attached Ruth wound: ?[place] red edges No Induration, Fluctuance noted Pain: extreme pain reported Goals of Treatment: ? Santyl for enzymatic debridement and durafiber to continue to left foot Right Heel 05/07/24 05/16/24 Left Heel Etiology: ??Diabetic Wound Wound Bed: necrotic eschar and slough thin tissue covering bone Drainage / Odor: Mild odor noted evans drainage Edges: ? irregular and non attached Ruth wound: ?[place] red edges No Induration, Fluctuance noted Pain: extreme pain reported Goals of Treatment: ? Santyl for enzymatic debridement Left Lateral Foot -5th toe amp site 05/07/24 05/16/24 Left Foot Etiology: ??Nonhealing Surgical Site Wound Bed: adherent yellows brown slough Drainage / Odor: [place] no odor noted Edges: ? irregular and non attached Ruth wound: ?Improving periwound No Induration, Fluctuance noted Pain: Mild pain reported Goals of Treatment: ? durafiber to continue to left foot Left Ischium 05/07/24 05/16/24 Left Ischium Etiology: ??Unclear etiology at this time vs Unstageable Pressure injury Wound Bed: improving - adherent yellow slough to wound bed Drainage / Odor: none Edges: ? irregular Urth wound: ?[place] red edges improving MASD No Induration, Fluctuance noted Pain: extreme pain reported Goals of Treatment: ? Continue triad Buttock 05/16/24 Buttock - Perianal Etiology: ??MASD Wound Bed: improving red pink moist partial thickness tissue loss Drainage / Odor: none Edges: ? irregular and mirrored Ruth wound: ? improving MASD No Induration, Fluctuance noted Pain: pain reported Goals of Treatment: ? Continue triad Recommendations: 1. Turn and Reposition every 2 hours and as needed for patient comfort.? Use pillows or wedges to support off loading positions. 2. Off Load all bony prominences with use of pillows and heel boots if needed.? Apply Preventative foams where needed. ? 3. Monitor for incontinence and moisture control, use barrier creams when needed for prevention and treatment. 4. Provide adequate and supplemental nutrition.? 5. Order low air loss mattress. 6. When applicable maintain blood glucose levels per Providers order. 7. Skin Folds - Cleanse with PH balance wipes, pat dry with soft cloth.? Apply antifungal power to assist with moisture management.? Be sure to dust of excess powder to prevent caking on skin and in folds. Apply per provider orders. Tuck Interdry AG Sheet into skin fold to wick and translocate moisture away from skin fold.? Be sure to leave at least 2 inch of fabric exposed outside of skin fold.? Change after 5 days or when soiled. 8. Left Foot - Cleanse and irrigate with NS, Pat dry.? Apply barrier to periwound, lightly pack with Durafiber AG, be sure to leave a wick to easy removal.? Cover with gauze and wrap dressing.? Change every other day. 9. Perineal and Left Ischium - Off Load Pressure with Q2 hr turns and use of pillows - Cleanse with PH balance spray or wipes, pat dry. ?Apply thin layer of Triad to wound bed - only pat and dab no scrub and rub when soiling occurs. Reapply thin layer PRN after each episode of incontinence. 10. Right Heel, Bilateral Thighs and left Calf - Off Load Pressure with Q2 hr turns and use of pillows - Cleanse with NS moist gauze, pat dry. ?Apply thin layer of Triad to periwound. Apply thick layer of Santyl to entire wound bed, cover with saline moist gauze, cover with dry gauze, ABD pad and gauze wrap or tape change Daily. Re-consult wound care Nurse for wound deterioration or wound changes.
[2024-05-16] MEDS: Morphine Sulfate 2 MG/ML CARTRIDGE 1 MG IVPUSH (12:58)
--- NOTE | 2024-05-16 13:57 | P.PNIM_ITS ---
Subjective Subjective Date of Service: 05/16/24 Interval History: seen and examined this morning follow up subdural hematoma, numerous wounds history obtained with the assistance of a manufacturing design engineer awake, alert; no specific complaints on my evaluation - but reports pain throughout day Constitutional Constitutional: Denies chills and Denies fever(s) Cardiovascular Cardiovascular: Denies chest pain Physical Exam 2 Vital Signs: Vital Signs: Last Vital Signs Temp 97.6 F 05/16/24 11:57 Pulse 100 05/16/24 11:57 Resp 18 05/16/24 11:57 BP 130/62 05/16/24 11:57 Pulse Ox 100 05/16/24 11:57 O2 Del Method Room Air 05/16/24 11:57 O2 Flow Rate 6 05/09/24 16:16 BMI result Body Mass Index 41.3 Const: General: alert and awake Nutritional Appearance: obese GI: Inspection: No distended Palpation (GI): Soft to palpation Skin: Other: multiple skin wounds - see wound care nurse for individual wounds; off loading boots Objective Data Active Medications Acetaminophen (Acetaminophen 325 Mg Tablet) 650 mg PO Q6H PRN PRN Reason: Pain, Mild 1-3,fever,headache Last Admin: 05/16/24 12:32 Dose: 650 mg Documented By: GUERRERO Alteplase, Recombinant (Alteplase Cath Clear 2 Mg/2 Ml Vial) 2 mg INTRACATH ONCE PRN PRN Reason: dialysis Atorvastatin Calcium (Atorvastatin Calcium 80 Mg Tablet) 80 mg PO DAILY [facility] Last Admin: 05/16/24 08:11 Dose: 80 mg Documented By: GUERRERO Calcium Carbonate (Calcium Carbonate 750 Mg Tab.Chew) 750 mg PO Q4H PRN PRN Reason: Heartburn Dextrose (Dextrose 50 % 25 Gm/50 Ml Syringe) 25 gm IVPUSH Q15M PRN; Protocol PRN Reason: per Hypoglycemia Standing Ord. Docusate Sodium (Docusate Sodium 100 Mg Capsule) 100 mg PO BID [facility] Last Admin: 05/16/24 12:31 Dose: Not Given Documented By: GUERRERO Non-Admin Reason: Patient Refused Ferrous Sulfate (Ferrous Sulfate 324 Mg Tablet.) 324 mg PO DAILY [facility] Last Admin: 05/16/24 08:12 Dose: 324 mg Documented By: GUERRERO Folic Acid (Folic Acid 1 Mg Tablet) 1 mg PO DAILY [facility] Last Admin: 05/16/24 08:12 Dose: 1 mg Documented By: GUERRERO Furosemide (Furosemide 40 Mg Tablet) 80 mg PO BID [facility]; Protocol Last Admin: 05/16/24 08:12 Dose: 80 mg Documented By: GUERRERO Gabapentin (Gabapentin 100 Mg Capsule) 200 mg PO DAILY [facility] Last Admin: 05/15/24 11:12 Dose: Not Given Documented By: ALISON Non-Admin Reason: Physician Held Med Gabapentin (Gabapentin 300 Mg Capsule) 300 mg PO MOWEFR@1800 [facility] Last Admin: 05/13/24 16:35 Dose: 300 mg Documented By: ALISON Glucose (Glucose Gel 15 Gm Gel..Gram.) 15 gm PO Q15M PRN; Protocol PRN Reason: per Hypoglycemia Standing Ord. Last Admin: 05/14/24 16:36 Dose: 15 gm Documented By: DOC Linezolid (Zyvox/D5w) 600 mg in 300 mls @ 300 mls/hr IV Q12H [facility] Last Infusion: 05/16/24 06:47 Dose: Infused Documented By: SIRI Insulin Glargine (Insulin Glargine,Hum.Rec.Anlog 100 Unit/Ml 10 Ml Vial) 21 unit SUBCUT BEDTIME [facility] Last Admin: 05/15/24 20:20 Dose: 21 unit Documented By: SIRI Insulin Human Lispro (Insulin Lispro 100 Unit/Ml 3 Ml Vial) 0 unit SUBCUT QIDACHS [facility]; Protocol Last Admin: 05/16/24 12:31 Dose: Not Given Documented By: GUERRERO Non-Admin Reason: poc oor Labetalol HCl (Labetalol Hcl 100 Mg/20 Ml Vial) 5 mg IVPUSH ONCE PRN PRN Reason: SBP > 160 Levetiracetam (Levetiracetam 500 Mg Tablet) 500 mg PO MOWEFR@1800 [facility] Last Admin: 05/15/24 20:01 Dose: 500 mg Documented By: SIRI Lorazepam (Lorazepam 0.5 Mg Tablet) 0.5 mg PO Q8H PRN PRN Reason: anxiety Last Admin: 05/14/24 16:36 Dose: 0.5 mg Documented By: HO.ARTING Magnesium Hydroxide (Milk Of Magnesia 30 Ml Oral.Susp) 30 ml PO DAILY PRN PRN Reason: Constipation Melatonin (Melatonin 3 Mg Tablet) 6 mg PO BEDTIME PRN PRN Reason: Insomnia Last Admin: 05/07/24 02:27 Dose: 6 mg Documented By: CONSTANTIN Naloxone HCl (Naloxone Hcl 0.4 Mg/Ml Vial) 0.04 mg IVPUSH Q5M PRN PRN Reason: Excessive sedation or RR < 8 Naloxone HCl (Naloxone Hcl 0.4 Mg/Ml Vial) 0.04 mg IVPUSH Q5M PRN PRN Reason: Excessive sedation or RR < 8 Nystatin (Nystatin Powder 15 Gm Bottle) 1 appl TOPICAL TID [facility]; Protocol Last Admin: 05/16/24 08:12 Dose: 1 appl Documented By: GUERRERO Omeprazole (Omeprazole 40 Mg Capsule.Dr) 40 mg PO BID@0630,1630 [facility] Last Admin: 05/16/24 05:43 Dose: 40 mg Documented By: SIRI Phenytoin Sodium (Phenytoin Sodium Extended 100 Mg Capsule) 100 mg PO TID [facility] Last Admin: 05/16/24 08:11 Dose: 100 mg Documented By: GUERRERO Polyethylene Glycol (Polyethylene Glycol 3350 17 Gm Powd.Pack) 17 gm PO DAILY [facility] Last Admin: 05/16/24 11:51 Dose: Not Given Documented By: GUERRERO Non-Admin Reason: Patient Refused Sertraline HCl (Sertraline Hcl 100 Mg Tablet) 100 mg PO DAILY [facility] Last Admin: 05/15/24 08:20 Dose: 100 mg Documented By: ALISON Sodium Chloride (0.9 % Sodium Chloride Flush 3 Ml Syringe) 3 ml IVFLUSH QSHIFT [facility] Last Admin: 05/16/24 13:04 Dose: Not Given Documented By: GUERRERO Non-Admin Reason: Previously Administered Trazodone HCl (Trazodone Hcl 100 Mg Tablet) 100 mg PO BEDTIME PRN PRN Reason: Sleep Last Admin: 05/10/24 21:12 Dose: 100 mg Documented By: NAM Valproic Acid (Valproic Acid 250 Mg Capsule) 1,000 mg PO BID [facility] Last Admin: 05/16/24 08:18 Dose: 1,000 mg Documented By: GUERRERO Vitamin D (Cholecalciferol (Vitamin D3) 25 Mcg Tablet) 50 mcg PO DAILY [facility] Last Admin: 05/16/24 08:11 Dose: 50 mcg Documented By: GUERRERO Labs 05/14/24 16:30 05/16/24 05:43 Labs: Laboratory Results - last 24 hr 05/15/24 05/15/24 05/15/24 16:27 19:31 20:08 Anion Gap Estim Creat Clear Calc Estimated GFR POC Glucose 99 183 H Random Glucose Calcium Ammonia Random Vancomycin 12.9 L Respiratory Panel [place] Adenovirus (Rapid PCR) B.pert (TEM-PCR) B.parapertussis DNA PCR C. pneumoniae DNA (PCR) Coronavirus OC43 (PCR) Coronavirus HKU1 (PCR) Coronavirus 229E (PCR) Coronavirus NL63 (PCR) Human Metapneumovir PCR Influenza A (RT-PCR) Influenza A (H1) PCR Influ A (H1) PCR Influenza A (H3) PCR Influenza B (RT-PCR) M. pneumoniae (PCR) Parainfluenza 1 (PCR) Parainfluenza 2 (PCR) Parainfluenza 3 (PCR) Parainfluenza 4 (PCR) RSV (PCR) Entero/Rhino (PCR) SARS-CoV-2 RNA (RT-PCR) 05/16/24 05/16/24 05/16/24 05:43 07:17 08:30 Anion Gap 18 Estim Creat Clear Calc 15.8 Estimated GFR 12 POC Glucose 162 H Random Glucose 160 H Calcium 7.9 L Ammonia Random Vancomycin Respiratory Panel [place] See Note Adenovirus (Rapid PCR) Not Detected B.pert (TEM-PCR) Not Detected B.parapertussis DNA PCR Not Detected C. pneumoniae DNA (PCR) Not Detected Coronavirus OC43 (PCR) Not Detected Coronavirus HKU1 (PCR) Not Detected Coronavirus 229E (PCR) Not Detected Coronavirus NL63 (PCR) Not Detected Human Metapneumovir PCR Not Detected Influenza A (RT-PCR) Not Detected Influenza A (H1) PCR Not Detected Influ A (H1/09) PCR Not Detected Influenza A (H3) PCR Not Detected Influenza B (RT-PCR) Not Detected M. pneumoniae (PCR) Not Detected Parainfluenza 1 (PCR) Not Detected Parainfluenza 2 (PCR) Not Detected Parainfluenza 3 (PCR) Not Detected Parainfluenza 4 (PCR) Not Detected RSV (PCR) Not Detected Entero/Rhino (PCR) Not Detected SARS-CoV-2 RNA (RT-PCR) Not Detected 05/16/24 05/16/24 09:34 11:56 Anion Gap Estim Creat Clear Calc Estimated GFR POC Glucose 100 Random Glucose Calcium Ammonia 43 Random Vancomycin Respiratory Panel [place] Adenovirus (Rapid PCR) B.pert (TEM-PCR) B.parapertussis DNA PCR C. pneumoniae DNA (PCR) Coronavirus OC43 (PCR) Coronavirus HKU1 (PCR) Coronavirus 229E (PCR) Coronavirus NL63 (PCR) Human Metapneumovir PCR Influenza A (RT-PCR) Influenza A (H1) PCR Influ A (H1/09) PCR Influenza A (H3) PCR Influenza B (RT-PCR) M. pneumoniae (PCR) Parainfluenza 1 (PCR) Parainfluenza 2 (PCR) Parainfluenza 3 (PCR) Parainfluenza 4 (PCR) RSV (PCR) Entero/Rhino (PCR) SARS-CoV-2 RNA (RT-PCR) Microbiology Microbiology Results: Microbiology 05/14/24 16:30 Blood Culture - Final Blood - Venous 05/14/24 16:30 Blood Culture - Final Blood - Venous 05/15/24 Unknown Urine Culture - Preliminary Urine Catheterized - Straight Catheter Culture in progress. Assessment and Plan (1) Acute subdural hematoma: Status: Acute (2) ESRD (end stage renal disease) on dialysis: Status: Acute (3) Laceration of occipital scalp: Status: Acute Plan This is a 68-year-old female with a PMH significant for?ESRD on HD M/W/F, HFpEF, seizure disorder, insulin-dependent type 2 diabetes, hx of osteomyelitis s/p left 5th toe amp on 03/28/2024, anemia of chronic disease requiring frequent transfusions, asthma, HTN, and GERD who presented to the ED after fall at home earlier imaging showing small subdural hematoma also found to have cellulitis with sepsis secondary to chronic diabetic foot ulcer and community-acquired pneumonia. Subdural hematoma CT small right parafalcine subdural hematoma up to 4 mm in thickness; repeat CT 6 hours later stable S/p fall at home with head strike on table; no LOC; neuro exam intact; pt AO x3; GCS 15 ED clinician contacted Neurosurgery at [facility] who said no intervention necessary Spoke with Neurology here who was in agreement with admission and observation Hold aspirin head zeyad removed 05/14 Left foot cellulitis with sepsis S/P fifth digit amputation d/t diabetic foot infection osteomyelitis on 03/28/2024. initially met sepsis criteria with tachycardia, tachypnea and leukocytosis above baseline; lactic acid 2.2 repeat 1.5 seen by surgery s/p debridement 05/09 continue vancomycin seen by ID, rec 6 weeks IV abx upon discharge toxic metabolic encephalopathy Sedating meds including Seroquel, trazodone, gabapentin placed on hold patient awake, alert today possible UTI Urine culture growing VRE -discussed with ID, likely colonization, no need to treat we will stop Zyvox Multiple skin wounds Wound care nurse following- see wound note for images/detailed plan abdominal pain. resolved KUB showing possible ileus, large stool burden - now with diarrhea diarrhea check stool studies Acute on chronic anemia of chronic disease H&H 6.0/17.5 at time presentation, reduced from 9.9/29.8 on 04/09/2024 no active bleeding Received 2 units PRBCs in the ED.H/H stable Follow H&H, transfuse as necessary thrombocytopenia intermittent most lab values, unable to perform test hematology consult pending Question of community-acquired pneumonia on admission CXR showed probable right lower lobe pneumonia Pt not hypoxic, not requiring supplemental O2 completed course of abx RPP negative ESRD on HD M/W/F Nephrology following hemodialysis catheter replaced by IR 05/09 due to poor function Follow BMP Insulin-dependent type 2 diabetes Sliding-scale insulin, Lantus Diabetic diet Seizure disorder Continue levetiracetam, valproate, and phenytoin HTN Continue and losartan Mood disorder Continue sertraline, lorazepam HLD continue statin Quality Stroke Does the patient have a stroke diagnosis?: No VTE Prior VTE?: No VTE Risk Level:: Medical - moderate - high VTE Device Contraindication: N/A - Device Ordered VTE Drug Contraindication: Treatment Not Indicated
--- NOTE | 2024-05-16 14:06 | P.PNNP_ITS ---
Subjective Subjective Date of Service: 05/16/24 Interval history: seen and examined Physical Exam 2 Vital Signs: Vital Signs: Last Vital Signs Temp 97.6 F 05/16/24 11:57 Pulse 100 05/16/24 11:57 Resp 18 05/16/24 11:57 BP 130/62 05/16/24 11:57 Pulse Ox 100 05/16/24 11:57 O2 Del Method Room Air 05/16/24 11:57 O2 Flow Rate 6 05/09/24 16:16 BMI result Body Mass Index 41.3 Const: General: no acute distress Neck: Neck: Yes supple Resp: Auscultation: diminished lung sounds Cardio: Heart sounds: S1 normal heart sound present and S2 normal heart sound present GI: Palpation (GI): Soft to palpation and nontender Extrem: Right upper extremity: edema Objective Data Labs 05/14/24 16:30 05/16/24 05:43 Labs: Laboratory Results - last 24 hr 05/15/24 05/15/24 05/15/24 16:27 19:31 20:08 Sodium Potassium Chloride Carbon Dioxide Anion Gap BUN Creatinine Estim Creat Clear Calc Estimated GFR POC Glucose 99 183 H Random Glucose Calcium Ammonia Random Vancomycin 12.9 L Respiratory Panel [place] Adenovirus (Rapid PCR) B.pert (TEM-PCR) B.parapertussis DNA PCR C. pneumoniae DNA (PCR) Coronavirus OC43 (PCR) Coronavirus HKU1 (PCR) Coronavirus 229E (PCR) Coronavirus NL63 (PCR) Human Metapneumovir PCR Influenza A (RT-PCR) Influenza A (H1) PCR Influ A (H1/09) PCR Influenza A (H3) PCR Influenza B (RT-PCR) M. pneumoniae (PCR) Parainfluenza 1 (PCR) Parainfluenza 2 (PCR) Parainfluenza 3 (PCR) Parainfluenza 4 (PCR) RSV (PCR) Entero/Rhino (PCR) SARS-CoV-2 RNA (RT-PCR) 05/16/24 05/16/24 05/16/24 05:43 07:17 08:30 Sodium 139 Potassium 3.7 Chloride 101 Carbon Dioxide 24 Anion Gap 18 BUN 37 H Creatinine 3.87 H Estim Creat Clear Calc 15.8 Estimated GFR 12 POC Glucose 162 H Random Glucose 160 H Calcium 7.9 L Ammonia Random Vancomycin Respiratory Panel [place] See Note Adenovirus (Rapid PCR) Not Detected B.pert (TEM-PCR) Not Detected B.parapertussis DNA PCR Not Detected C. pneumoniae DNA (PCR) Not Detected Coronavirus OC43 (PCR) Not Detected Coronavirus HKU1 (PCR) Not Detected Coronavirus 229E (PCR) Not Detected Coronavirus NL63 (PCR) Not Detected Human Metapneumovir PCR Not Detected Influenza A (RT-PCR) Not Detected Influenza A (H1) PCR Not Detected Influ A (H1/09) PCR Not Detected Influenza A (H3) PCR Not Detected Influenza B (RT-PCR) Not Detected M. pneumoniae (PCR) Not Detected Parainfluenza 1 (PCR) Not Detected Parainfluenza 2 (PCR) Not Detected Parainfluenza 3 (PCR) Not Detected Parainfluenza 4 (PCR) Not Detected RSV (PCR) Not Detected Entero/Rhino (PCR) Not Detected SARS-CoV-2 RNA (RT-PCR) Not Detected 05/16/24 05/16/24 09:34 11:56 Sodium Potassium Chloride Carbon Dioxide Anion Gap BUN Creatinine Estim Creat Clear Calc Estimated GFR POC Glucose 100 Random Glucose Calcium Ammonia 43 Random Vancomycin Respiratory Panel [place] Adenovirus (Rapid PCR) B.pert (TEM-PCR) B.parapertussis DNA PCR C. pneumoniae DNA (PCR) Coronavirus OC43 (PCR) Coronavirus HKU1 (PCR) Coronavirus 229E (PCR) Coronavirus NL63 (PCR) Human Metapneumovir PCR Influenza A (RT-PCR) Influenza A (H1) PCR Influ A (H1/09) PCR Influenza A (H3) PCR Influenza B (RT-PCR) M. pneumoniae (PCR) Parainfluenza 1 (PCR) Parainfluenza 2 (PCR) Parainfluenza 3 (PCR) Parainfluenza 4 (PCR) RSV (PCR) Entero/Rhino (PCR) SARS-CoV-2 RNA (RT-PCR) Microbiology Microbiology Results: Microbiology 05/14/24 16:30 Blood - Venous Blood Culture - Final 05/14/24 16:30 Blood - Venous Blood Culture - Final 05/15/24 Unknown Urine Catheterized - Straight Catheter Urine Culture - Preliminary Culture in progress. 05/07/24 20:30 Urine clean catch Urine Culture - Final Ira albicans Enterococcus faecium 05/09/24 15:10 Heel, Right Gram Stain - Final 05/09/24 15:10 Heel, Right Routine Culture - Final Staphylococcus aureus 05/04/24 08:25 Blood - Venous Blood Culture - Final No growth after 5 days. 05/04/24 08:26 Blood - Venous Blood Culture - Final No growth after 5 days. 05/04/24 15:12 Urine clean catch - Clean Catch Midstream Urine Culture - Final Procedures Date of Service Date of Service: 05/16/24 Assessment & Plan Assessment and plan (1) ESRD (end stage renal disease): Status: Acute (2) Acute subdural hematoma: Status: Acute (3) Anemia: Status: Acute Plan ESRD on HD at [place] [facility] nephrogenic anemia REC HD in am renal diet P binders DALILA Time Spent With Patient Time: Total time managing care of this patient today ____ minutes. Progress Note: Quality Stroke Does the patient have a stroke diagnosis?: No
--- NOTE | 2024-05-16 14:25 | PM.HEMONCCN ---
Subjective - Subjective Chief complaint: Consult for: Thrombocytopenia. Patient: new to practice Consult date: 05/16/24 Requesting Physician: katya Nielsen Primary Care Provider: Lucrecia Teixeira MD Family Provider: Lucrecia Teixeira MD Medical Summary: DIAGNOSIS: 1. ANEMIA. 2. THROMBOCYTOPENIA. Soldering Machine Feeder Utilized?: No - Lao Speaking HPI - Consult Narrative Reason for consult: Consult for: Thrombocytopenia. Narrative: Lori Reid is a 68 year old lady, admitted to the hospital on 05/04, with a PMH significant for?ESRD on HD M/W/F, HFpEF,aeizure disorder, insulin-dependent type 2 diabetes, hx of osteomyelitis s/p left 5th toe amp on 03/28/2024, anemia of chronic disease requiring frequent transfusions, asthma, HTN, and GERD who presents to the ED after fall at home earlier this morning as pt was ambulating to the bathroom. Pt uses walker at home. Reports feeling ?shaky? and legs gave out while in the living room. Pt fell backwards, striking her head on a side table and also landing on her back and right hip. Pt lives with family and daughter primarily takes care of her. Pt did not want to wake daughter to help to the bathroom. Pt denies LOC, lightheadedness, or dizziness. Small initial headache that soon resolved. Pt with hx falls, reports last fell 3 weeks ago. Pt is supposed to have VNA services twice a week especially with help for wound care, but pt reports no one has stopped by for the past 2 weeks. Daughter has been taking care of and re-dressing wounds. Pt reports has areas of bruising on torso and lower extremities secondary to falls. Chronic back and lower extremity musculoskeletal pain around baseline. Currently pt denies lightheadedness, dizziness. No headache or acute vision changes. Denies shortness or breath or difficulty breathing. No cough. Denies chest pain/pressure, palpitations. CTA of head showed small subdural hematoma. Patient's GCS 15. ED clinician reached out to [facility] neurosurgery who recommended repeat CT in 6 hours time and if stable no further intervention required at this time. Repeat CT showed tiny stable subdural hematoma. GCS continued to be 15. In the ED pt with low-grade fever of 100.7, tachycardia up to 104, tachypnea up to 26, and soft BP as low as 99/57. Labs were significant for chronic leukocytosis slightly above baseline at 15.5, H&H 6.0/17.5, creatinine 5.48, initial lactic acid 2.2 with repeat 1.6, albumin 2.8. No significant electrolyte abnormalities. CTA of head showed small focal hyperdense parafalcine subdural hematoma up to 4 mm in thickness without mass effect, midline shift, or hydrocephalus. Repeat CT 6 hours with stable subdural hematoma. CT of cervical spine negative for acute findings. CXR showed probable right lower lobe pneumonia. EKG demonstrated normal sinus rhythm without evidence of significant ST elevations or depressions. Pt was treated with acetaminophen, morphine IVF, vancomycin and ceftriaxone. Pt was also transfused two units PBRCs. Pt was admitted for treatment further evaluation of multiple issues, including subdural hematoma s/p fall at home, and generalized weakness with fall at home in the setting of acute on chronic anemia, cellulitis with sepsis secondary to chronic diabetic foot ulcer, and community-acquired pneumonia. Medical History:) ESRD (end stage renal disease) Generalized seizure Acute kidney injury CKD (chronic kidney disease) stage 3, GFR 30-59 ml/min CHF (congestive heart failure) Anemia Brain tumor (benign) Lower extremity edema Pneumonia Asthma Pulmonary nodule HLD (hyperlipidemia) Seizure Acute hypoxemic respiratory failure due to COVID-19 COVID-19 Kidney stone Depression Gastritis Diabetes Review of Systems Review of Systems: Negative except for that which is stated in the HPI. Review of Systems - Constitutional Reports no additional constitutional complaints, Reports fatigue, Reports lack of energy, Reports malaise, Reports poor appetite, Reports weight loss - Eyes Reports no additional eye complaints - ENT Reports no additional ear, nose, mouth, and throat complaints - Cardiovascular Reports no additional cardiovascular complaints - Respiratory Reports no additional respiratory complaints - Gastrointestinal Reports no additional gastrointestinal complaints - Genitourinary Reports no additional female genitourinary complaints - Musculoskeletal Reports no additional musculoskeletal complaints - Integumentary/Breasts Skin/Breast: Reports no additional skin complaints - Neurologic Reports no additional neurologic complaints - Psychiatric Reports no additional psychiatric complaints - Endocrine Reports no additional endocrine complaints - Hematologic/Lymphatic Reports no additional hematologic/lymphatic complaints - Allergic/Immunologic Reports no additional allergic/immunologic complaints Oncology Screenings - ECOG Performance Status ECOG Performance Status: 2 [facility] Medical History: Medical History (Last Reviewed 05/09/24 @ 14:18 by Odalis Mensah RN) Acute hypoxemic respiratory failure due to COVID-19 Acute kidney injury Anemia Asthma Brain tumor (benign) CHF (congestive heart failure) CKD (chronic kidney disease) stage 3, GFR 30-59 ml/min COVID-19 Depression Diabetes Eschar of heel ESRD (end stage renal disease) Gastritis Generalized seizure HLD (hyperlipidemia) Kidney stone Lower extremity edema Pneumonia Pulmonary nodule Seizure Functional capacity: bed bound Family History: Family History (Last Reviewed 05/08/24 @ 14:43 by Corinne Donato MD) Father CAD (coronary artery disease) Brother Lung cancer Sister Kidney stone Family history: reviewed and not pertinent Surgical History: Surgical History (Last Reviewed 05/09/24 @ 14:18 by Odalis Mensah RN) H/O cystoscopy H/O hernia repair H/O lithotripsy H/O ureteroscopy History of cholecystectomy 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 Onset Date: 03/28/24 S/P ureteral stent placement Social History: Social History (Last Reviewed 05/08/24 @ 14:43 by Corinne Donato MD) Living Situation History: Household Members: Children Household Members Other:: daughter Housing: House Are you a primary care transition coordinator to a significant other at home: No Do you presently have visiting nurse or other home services: Yes Do you presently have visiting nurse or other home services comment: daughter is bag builder, vna 2x week. Tobacco History: Patient Tobacco Use Status: Never used Tobacco e-Cigarette/Vaping Use: Never Used Advance Directives: Advance Directives Date on File: 12/20/21 Occupation Assessmet: service: No Current occupational status: unemployed Home Medications and Allergies Current Medications: Current Medications Acetaminophen (Acetaminophen 325 Mg Tablet) 650 mg PO Q6H PRN PRN Reason: Pain, Mild 1-3,fever,headache Last Admin: 05/16/24 12:32 Dose: 650 mg Alteplase, Recombinant (Alteplase Cath Clear 2 Mg/2 Ml Vial) 2 mg INTRACATH ONCE PRN PRN Reason: dialysis Atorvastatin Calcium (Atorvastatin Calcium 80 Mg Tablet) 80 mg PO DAILY KATHERINE Last Admin: 05/16/24 08:11 Dose: 80 mg Calcium Carbonate (Calcium Carbonate 750 Mg Tab.Chew) 750 mg PO Q4H PRN PRN Reason: Heartburn Collagenase (Collagenase Clostridium Hist. 30 Gm Tube) 1 appl TOPICAL DAILY KATHERINE; Protocol Dextrose (Dextrose 50 % 25 Gm/50 Ml Syringe) 25 gm IVPUSH Q15M PRN; Protocol PRN Reason: per Hypoglycemia Standing Ord. Docusate Sodium (Docusate Sodium 100 Mg Capsule) 100 mg PO BID [facility] Last Admin: 05/16/24 12:31 Dose: Not Given Ferrous Sulfate (Ferrous Sulfate 324 Mg Tablet.Dr) 324 mg PO DAILY [facility] Last Admin: 05/16/24 08:12 Dose: 324 mg Folic Acid (Folic Acid 1 Mg Tablet) 1 mg PO DAILY [facility] Last Admin: 05/16/24 08:12 Dose: 1 mg Furosemide (Furosemide 40 Mg Tablet) 80 mg PO BID [facility]; Protocol Last Admin: 05/16/24 08:12 Dose: 80 mg Gabapentin (Gabapentin 100 Mg Capsule) 200 mg PO DAILY [facility] Last Admin: 05/15/24 11:12 Dose: Not Given Gabapentin (Gabapentin 300 Mg Capsule) 300 mg PO MOWEFR@1800 [facility] Last Admin: 05/13/24 16:35 Dose: 300 mg Glucose (Glucose Gel 15 Gm Gel..Gram.) 15 gm PO Q15M PRN; Protocol PRN Reason: per Hypoglycemia Standing Ord. Last Admin: 05/14/24 16:36 Dose: 15 gm Insulin Glargine (Insulin Glargine,Hum.Rec.Anlog 100 Unit/Ml 10 Ml Vial) 21 unit SUBCUT BEDTIME [facility] Last Admin: 05/15/24 20:20 Dose: 21 unit Insulin Human Lispro (Insulin Lispro 100 Unit/Ml 3 Ml Vial) 0 unit SUBCUT QIDACHS [facility]; Protocol Last Admin: 05/16/24 12:31 Dose: Not Given Labetalol HCl (Labetalol Hcl 100 Mg/20 Ml Vial) 5 mg IVPUSH ONCE PRN PRN Reason: SBP > 160 Levetiracetam (Levetiracetam 500 Mg Tablet) 500 mg PO MOWEFR@1800 [facility] Last Admin: 05/15/24 20:01 Dose: 500 mg Lorazepam (Lorazepam 0.5 Mg Tablet) 0.5 mg PO Q8H PRN PRN Reason: anxiety Last Admin: 05/14/24 16:36 Dose: 0.5 mg Magnesium Hydroxide (Milk Of Magnesia 30 Ml Oral.Susp) 30 ml PO DAILY PRN PRN Reason: Constipation Melatonin (Melatonin 3 Mg Tablet) 6 mg PO BEDTIME PRN PRN Reason: Insomnia Last Admin: 05/07/24 02:27 Dose: 6 mg Naloxone HCl (Naloxone Hcl 0.4 Mg/Ml Vial) 0.04 mg IVPUSH Q5M PRN PRN Reason: Excessive sedation or RR < 8 Naloxone HCl (Naloxone Hcl 0.4 Mg/Ml Vial) 0.04 mg IVPUSH Q5M PRN PRN Reason: Excessive sedation or RR < 8 Nystatin (Nystatin Powder 15 Gm Bottle) 1 appl TOPICAL TID [facility]; Protocol Last Admin: 05/16/24 08:12 Dose: 1 appl Omeprazole (Omeprazole 40 Mg Capsule.Dr) 40 mg PO BID@0630,1630 [facility] Last Admin: 05/16/24 05:43 Dose: 40 mg Pharmacy Consult (Consult Rx Vancomycin Dosing) 1 each MISCELLANE DAILY PRN PRN Reason: Consult order Phenytoin Sodium (Phenytoin Sodium Extended 100 Mg Capsule) 100 mg PO TID [facility] Last Admin: 05/16/24 08:11 Dose: 100 mg Sertraline HCl (Sertraline Hcl 100 Mg Tablet) 100 mg PO DAILY [facility] Last Admin: 05/15/24 08:20 Dose: 100 mg Sodium Chloride (0.9 % Sodium Chloride Flush 3 Ml Syringe) 3 ml IVFLUSH QSHIFT [facility] Last Admin: 05/16/24 13:04 Dose: Not Given Trazodone HCl (Trazodone Hcl 100 Mg Tablet) 100 mg PO BEDTIME PRN PRN Reason: Sleep Last Admin: 05/10/24 21:12 Dose: 100 mg Valproic Acid (Valproic Acid 250 Mg Capsule) 1,000 mg PO BID [facility] Last Admin: 05/16/24 08:18 Dose: 1,000 mg Vitamin D (Cholecalciferol (Vitamin D3) 25 Mcg Tablet) 50 mcg PO DAILY [facility] Last Admin: 05/16/24 08:11 Dose: 50 mcg Home Medications ?Medication ?Instructions ?Recorded ?Confirmed ?Type blood sugar diagnostic (FreeStyle 03/28/20 09/09/22 History Lite Strips) blood-glucose meter (FreeStyle 03/28/20 09/09/22 History [place] Lite kit) lancets 28 gauge (FreeStyle 03/28/20 09/09/22 History Lancets) omeprazole 40 mg capsule,delayed 40 mg PO BID@0630,1630 10/02/21 05/04/24 History release blood pressure test kit-large #1 ea 10/12/21 09/09/22 History atorvastatin 80 mg tablet 80 mg PO DAILY 12/20/21 05/04/24 History nebulizers 01/20/22 09/09/22 History amlodipine 10 mg tablet 10 mg PO DAILY 05/29/22 05/04/24 History aspirin 81 mg tablet,delayed 81 mg PO DAILY 05/29/22 05/04/24 History release lancets 33 gauge (TRUEplus Lancets) #100 ea 06/07/22 09/09/22 History trazodone 50 mg tablet 100 mg PO BEDTIME PRN Sleep 06/07/22 05/04/24 History cholecalciferol (vitamin D3) 50 50 mcg PO DAILY 11/24/22 05/04/24 History mcg (2,000 unit) tablet ferrous gluconate 324 mg (38 mg 324 mg PO DAILY 11/24/22 05/04/24 History iron) tablet acetaminophen 650 mg 650 mg PO Q8H PRN mild pain 03/22/24 05/04/24 History tablet,extended release diclofenac sodium 1 % topical gel 2 g topical BEDTIME PRN Pain 03/22/24 05/04/24 History losartan 100 mg tablet 100 mg PO BID 03/22/24 05/04/24 History valproic acid 250 mg capsule 1,000 mg PO BID 03/22/24 05/04/24 History furosemide 40 mg tablet 80 mg PO BID 05/04/24 05/04/24 History gabapentin 100 mg capsule 200 mg PO DAILY 05/04/24 05/04/24 History gabapentin 300 mg capsule 300 mg PO MOWEFR@1800 05/04/24 05/04/24 History insulin glargine 100 unit/mL (3 30 unit subcut BEDTIME 05/04/24 05/04/24 History mL) subcutaneous pen (Basaglar KwikPen U-100 Insulin) levetiracetam 500 mg tablet 500 mg PO MOWEFR@1800 05/04/24 05/04/24 History lorazepam 0.5 mg tablet 0.5 mg PO DAILY PRN anxiety 05/04/24 05/04/24 History sertraline 50 mg tablet 100 mg PO DAILY 05/04/24 05/04/24 History Allergies Allergy/AdvReac Type Severity Reaction Status Date / Time Egg Derived Allergy Unknown Verified 03/22/25 01:05 Physical Exam Vital signs: Vital Signs Temp 97.6 F 05/16/24 11:57 Pulse 100 05/16/24 11:57 Resp 18 05/16/24 11:57 BP 130/62 05/16/24 11:57 Pulse Ox 100 05/16/24 11:57 O2 Del Method Room Air 05/16/24 11:57 O2 Flow Rate 6 05/09/24 16:16 Intake & Output 05/15/24 05/16/24 05/16/24 18:59 06:59 18:59 Intake Total 270 / 870 600 / 870 300 / 300 Output Total 0 / 55 55 / 55 300 / 300 Balance 270 / 815 545 / 815 0 / 0 Urine Output (Average ml/kg/hr) 0.00 0.00 0.24 Intake: Intake, Oral Amount 270 / 270 300 / 300 Intake, IV Amount 600 / 600 Linezolid/D5W 600 mg In 300 ml 600 / 600 @ 300 mls/hr IV Q12H [facility] Rx#: [id number] Output: Output, Urine Amount 0 / 0 300 / 300 Output, Post Void Residual 50 / 50 Amount Output, Stool Amount 4 / 4 Output, Urine/Stool Mix Amount 1 / 1 Other: Meal Refused No NPO No Breakfast % Eaten 75% 25% Lunch % Eaten 0% 25% Eating (Feeding) Ability 1:1 Feed Number of Incontinent Voids 1 3 Number of Unmeasured Voids 3 Number of Bowel Movements 1 3 4 Urine purewick purewick Urine Color Yellow Last Bowel Movement 05/15/24 05/15/24 Stool Incontinent Incontinent Incontinent Stool Amount Moderate Large Large Stool Color Brown Brown Dark Brown Stool Consistency Soft Loose Loose Weight 102.4 kg - Constitutional Present: mild distress - Routine HEENT Exam Head: Present: normal inspection, normocephalic Eye: Present: normal appearance ENT: Present: mucous membranes moist - Routine Neck Exam Present: supple Hem/Onc Consult Result - Labs CBC & Chem 7: 05/18/24 06:39 05/18/24 06:39 Labs: BMP 05/16/24 05:43 Sodium 139 Potassium 3.7 Chloride 101 Carbon Dioxide 24 BUN 37 H Creatinine 3.87 H Calcium 7.9 L Assessment and Plan Patient Active problem list reviewed?: Yes (1) Thrombocytopenia Status: Acute Assessment and plan: 68-year-old lady with history of end-stage renal disease. Currently on dialysis. 1. ESRD: usu MWF at HDU 2. 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 Wounds 5. Unsteady gait and ques safety with going home 6. Hemoaccess: s/p Pcath replaced and still poor flows--will try cathflow today REC: cont HD mwf; epo/fe; abx as noted; d/c planning--ques go to rehab instead of hoemat time of d/c--PT and daughte to talk to team THROMBOCYTOPENIA: DIFFERENTIAL DIAGNOSIS: 1. PLATELETS CLUMPING: Patient has had a history of clumped platelets. That causes the platelets to be falsely low. Has had platelets drawn in the citrate tube, to eliminate the effect of clumping. 2. UNDERLYING MYELO INFILTRATIVE DISORDER: AN MPN: CML is in the differential. She has had a chronic leukocytosis, consistently since October of last year. She has a left shift with metamyelocytes, myelocytes, eos and basos, on smear. 3. INFECTION RELATED: Any infectious process i.e. HIV, hepatitis B or C can cause it. 4. DIC: Could be related to infection, versus malignancy. 5. ITP: Is in the differential. PLAN: I will proceed with checking her platelet count in a blue top tube, to eliminate effect of clumping. (Platelet count came up to 120.) (4/5: Platelets have normalized.) If the platelets remain low, will then proceed with further evaluation. Check HIV and hepatitis profiles: Negative. Check peripheral blood for flow cytometry, and cytogenetics. Check DIC screen. PT: 12.4. Check for hemolysis. LDH: 256. For now will continue to monitor the platelets carefully. If they decline, will proceed with a bone marrow exam for further evaluation. Thank you for this consult, Will follow along with you, CC: Lucrecia Teixeira MD. - Time Spent With Patient Time Spent with Patient (in minutes): 30
[2024-05-16 15:29] LABS: Vancomycin Random 12.4 mcg/mL (15-20)
[2024-05-16 15:45] LABS: CDiff Gene PCR NEGATIVE (Negative)
[2024-05-16 16:00] VITALS: BP 129/63; PULSE 93; RESP 18; TEMP 36.8; O2SAT 100
[2024-05-16 16:27] LABS: Glucose, Whole Blood 136 mg/dL (60-115)
[2024-05-16] MEDS: vancomycin HCL 500 MG in 0.9 % Sodium Chloride 100 ML 110 MG IV (16:40)
[2024-05-16] MEDS: oxyCODONE HCl Immed Release 5 MG TABLET 2.5 MG PO (18:25)
[2024-05-16 19:33] VITALS: BP 136/68; PULSE 86; RESP 20; TEMP 36.8; O2SAT 99
[2024-05-16] MEDS: Insulin Glargine,Hum.rec.anlog 100 UNIT/ML 10 ML VIAL 21 UNIT SUBCUT (20:32)
[2024-05-16 20:34] LABS: Glucose, Whole Blood 150 mg/dL (60-115)
[2024-05-16] MEDS: Melatonin 3 MG TABLET 6 MG PO (23:14)
[2024-05-16 23:21] VITALS: BP 150/59; PULSE 99; RESP 18; TEMP 36.3; O2SAT 94
[2024-05-17] VITALS (12 sets, daily range): BP systolic 132–168; BP diastolic 56–85; PULSE 87–100; RESP 16–20; TEMP 36.1–37.2; O2SAT 96–98
[2024-05-17] MEDS: LORazepam 0.5 MG TABLET PO ×3 (00:24→20:13)
[2024-05-17] MEDS: oxyCODONE HCl Immed Release 5 MG TABLET 2.5 MG PO ×4 (02:10→22:14)
[2024-05-17 06:32] LABS: Baso%MD 0.4 %; Eos%MD 2.3 %; Mono%MD 5.7 %; PLT CLUMP 1
[2024-05-17 06:34] LABS: IG%MD 4.9 %; Lymph%MD 10.4 %; Mean Corpuscular HGB Conc 31.6 g/dl (31.0-35.0); Mean Corpuscular Hemoglobin 28.7 pg (27.0-33.0); Mean Corpuscular Volume 90.8 fL (80.0-98.0); Neut%MD 76.3 %; Red Blood Count 1.95 X10*6/uL (4.20-5.50); Red Cell Distribution Width 21.4 % (11.0-16.0)
[2024-05-17 06:43] LABS: Platelet Count (Citrate) 120 X10*3/uL (150-310)
[2024-05-17 06:45] LABS: Alanine Aminotransferase < 6 U/L (0-31); Albumin Level 2.1 g/dL (3.5-5.0); Alkaline Phosphatase 101 U/L (39-117); Anion Gap 15 (12-20); Aspartate Amino Transferase 20 U/L (5-31); Bilirubin Total 0.1 mg/dL (0.0-1.0); Blood Urea Nitrogen 36 mg/dL (9-16); Calcium 7.6 mg/dL (8.4-10.2); Carbon Dioxide 25 mmol/L (22-29); Chloride 104 mmol/L (96-108); Creatinine Clr Calc Pharmacy 16.8; Estimated Glomerular Filt Rate 13; Glucose Random 105 mg/dL (60-115); Lactate Dehydrogenase 256 U/L (122-220); Sodium 141 mmol/L (135-145); Total Protein 5.5 g/dL (6.5-8.0)
[2024-05-17 07:42] LABS: Hemoglobin 5.6 g/dl (12.0-16.0)
[2024-05-17 07:43] LABS: Hematocrit 17.7 % (37.0-47.0); White Blood Count 11.5 X10*3/uL (4.8-10.8)
[2024-05-17 08:06] LABS: Band Neutrophils Percent 6 % (3-5); Eosinophils Absolute Manual 0.3 X10*3/uL (0.0-0.4); Eosinophils Percent Manual 3 % (0-4); HBS Num1 0.88 mIU/mL (0-7.99); HBsAGNum1 0.39 S/CO (0.00-0.99); HIV AB/AG Nonreactive (Nonreactive); HIV Num 1 0.05 S/CO (0.00-0.99); Hepatitis B Core Antibody Nonreactive (Nonreactive); Hepatitis B Surface Antigen Negative (Negative); Lymphocytes Absolute Manual 0.8 X10*3/uL (1.2-4.9); Lymphocytes Percent Manual 7 % (20-40); Metamyelocytes Absolute 0.1 X10*3/uL; Metamyelocytes Percent 1 %; Monocytes Absolute Manual 0.5 X10*3/uL (0.1-1.2); Monocytes Percent Manual 4 % (2-11); Neutrophils Absolute Manual 9.8 X10*3/uL (2.0-8.3); Neutrophils Percent Manual 79 % (45-73); ~HepC Num1 0.28 S/CO (0.00-0.79); ~Hepatitis B Surface Antibody NONREACTIVE (Nonreactive); ~Hepatitis C Antibody Nonreactive (Nonreactive)
[2024-05-17 08:10] LABS: Hypochromasia 2+ (15-30) /OIF
[2024-05-17 08:11] LABS: Ovalocytes 1+ (5-14) /OIF; RBC Morphology NOTED
[2024-05-17] MEDS: Docusate Sodium 100 MG CAPSULE PO ×2 (08:50→20:09)
[2024-05-17] MEDS: Furosemide 40 MG TABLET 80 MG PO ×2 (08:50→20:09)
[2024-05-17] MEDS: Cholecalciferol (Vitamin D3) 25 MCG TABLET 50 MCG PO (08:50)
[2024-05-17] MEDS: Valproic Acid 250 MG CAPSULE 1000 MG PO ×2 (08:50→20:10)
[2024-05-17] MEDS: Atorvastatin Calcium 80 MG TABLET PO (08:51)
[2024-05-17] MEDS: Ferrous Sulfate 324 MG TABLET.DR PO (08:51)
[2024-05-17] MEDS: Sertraline HCL 100 MG TABLET PO (08:51)
[2024-05-17] MEDS: Phenytoin Sodium Extended 100 MG CAPSULE PO ×3 (08:51→20:10)
[2024-05-17] MEDS: Folic Acid 1 MG TABLET PO (08:51)
[2024-05-17 08:58] LABS: Adenovirus F 40/41 Not Detected (Not Detect.); Astrovirus Not Detected (Not Detect.); Campylobacter Not Detected (Not Detect.); Cryptosporidium Not Detected (Not Detect.); Cyclospora cayetanensis Not Detected (Not Detect.); E. coli EAEC Not Detected (Not Detect.); E. coli EPEC Not Detected (Not Detect.); E. coli ETEC Not Detected (Not Detect.); E. coli STEC Not Detected (Not Detect.); Entamoeba histolytica Not Detected (Not Detect.); Giardia lamblia Not Detected (Not Detect.); Norovirus GI/GII Not Detected (Not Detect.); Plesiomonas shigelloides Not Detected (Not Detect.); Rotavirus A Not Detected (Not Detect.); Salmonella Not Detected (Not Detect.); Sapovirus Not Detected (Not Detect.); Shigella sp./EIEC Not Detected (Not Detect.); Vibrio Not Detected (Not Detect.); Vibrio Cholerae Not Detected (Not Detect.); Yersinia enterocolitica Not Detected (Not Detect.)
[2024-05-17 09:05] LABS: Glucose, Whole Blood 112 mg/dL (60-115)
[2024-05-17] MEDS: 0.9 % Sodium Chloride Flush 3 ML SYRINGE IVFLUSH ×2 (10:22→20:14)
[2024-05-17] MEDS: Nystatin Powder 15 GM BOTTLE 1 APPL TOPICAL ×3 (10:22→20:10)
[2024-05-17 10:31] LABS: Platelet Count (Citrate) 183 X10*3/uL (150-310)
--- NOTE | 2024-05-17 11:08 | MHC.CM.PN ---
Per ROUNDS discussion, Patient is not yet medically cleared for dc (will need 6 weeks total of IV Vanco); [facility] is following closely and CM will continue to follow.
--- NOTE | 2024-05-17 12:33 | P.PNGS_ITS ---
Subjective Subjective Date of Service: 05/21/24 Interval history: No change in status Has multiple planes of pain Physical Exam 2 Vital Signs: Vital Signs: Last Vital Signs Temp 98.2 F 05/17/24 12:15 Pulse 100 05/17/24 12:00 Resp 16 05/17/24 12:15 BP 150/58 H 05/17/24 12:15 Pulse Ox 96 05/17/24 12:00 O2 Del Method Room Air 05/17/24 12:00 O2 Flow Rate 6 05/09/24 16:16 BMI result Body Mass Index 41.3 Const: Other: Complains of pain Resp: Effort & Inspection: normal respiratory effort Cardio: Rhythm: regular rhythm Extrem: Other: Heel ulcer, with some coating of nonviable tissue, also with multiple ulcers in the left thigh with dry eschar Objective Data Active Medications Acetaminophen (Acetaminophen 325 Mg Tablet) 650 mg PO Q6H PRN PRN Reason: Pain, Mild 1-3,fever,headache Last Admin: 05/16/24 23:14 Dose: 650 mg Documented By: SIRI Alteplase, Recombinant (Alteplase Cath Clear 2 Mg/2 Ml Vial) 2 mg INTRACATH ONCE PRN PRN Reason: dialysis Atorvastatin Calcium (Atorvastatin Calcium 80 Mg Tablet) 80 mg PO DAILY [facility] Last Admin: 05/17/24 08:51 Dose: 80 mg Documented By: JAROCHO Calcium Carbonate (Calcium Carbonate 750 Mg Tab.Chew) 750 mg PO Q4H PRN PRN Reason: Heartburn Collagenase (Collagenase Clostridium Hist. 30 Gm Tube) 1 appl TOPICAL DAILY KATHERINE; Protocol Dextrose (Dextrose 50 % 25 Gm/50 Ml Syringe) 25 gm IVPUSH Q15M PRN; Protocol PRN Reason: per Hypoglycemia Standing Ord. Docusate Sodium (Docusate Sodium 100 Mg Capsule) 100 mg PO BID [facility] Last Admin: 05/17/24 08:50 Dose: 100 mg Documented By: JAROCHO Ferrous Sulfate (Ferrous Sulfate 324 Mg Tablet.) 324 mg PO DAILY [facility] Last Admin: 05/17/24 08:51 Dose: 324 mg Documented By: JAROCHO Folic Acid (Folic Acid 1 Mg Tablet) 1 mg PO DAILY [facility] Last Admin: 05/17/24 08:51 Dose: 1 mg Documented By: JAROCHO Furosemide (Furosemide 40 Mg Tablet) 80 mg PO BID [facility]; Protocol Last Admin: 05/17/24 08:50 Dose: 80 mg Documented By: JAROCHO Glucose (Glucose Gel 15 Gm Gel..Gram.) 15 gm PO Q15M PRN; Protocol PRN Reason: per Hypoglycemia Standing Ord. Last Admin: 05/14/24 16:36 Dose: 15 gm Documented By: DOC Vancomycin HCl 500 mg/ Sodium (Chloride) 110 mls @ 110 mls/hr IV ONCE ONE Stop: 05/16/24 15:44 Insulin Glargine (Insulin Glargine,Hum.Rec.Anlog 100 Unit/Ml 10 Ml Vial) 21 unit SUBCUT BEDTIME KATHERINE Last Admin: 05/16/24 20:32 Dose: 21 unit Documented By: SIRI Insulin Human Lispro (Insulin Lispro 100 Unit/Ml 3 Ml Vial) 0 unit SUBCUT QIDACHS [facility]; Protocol Last Admin: 05/17/24 09:00 Dose: Not Given Documented By: JAROCHO Non-Admin Reason: No Insulin Coverage Labetalol HCl (Labetalol Hcl 100 Mg/20 Ml Vial) 5 mg IVPUSH ONCE PRN PRN Reason: SBP > 160 Levetiracetam (Levetiracetam 500 Mg Tablet) 500 mg PO MOWEFR@1800 KATHERINE Last Admin: 05/15/24 20:01 Dose: 500 mg Documented By: SIRI Lorazepam (Lorazepam 0.5 Mg Tablet) 0.5 mg PO Q8H PRN PRN Reason: anxiety Last Admin: 05/17/24 11:18 Dose: 0.5 mg Documented By: JAROCHO Magnesium Hydroxide (Milk Of Magnesia 30 Ml Oral.Susp) 30 ml PO DAILY PRN PRN Reason: Constipation Melatonin (Melatonin 3 Mg Tablet) 6 mg PO BEDTIME PRN PRN Reason: Insomnia Last Admin: 05/16/24 23:14 Dose: 6 mg Documented By: SIRI Naloxone HCl (Naloxone Hcl 0.4 Mg/Ml Vial) 0.04 mg IVPUSH Q5M PRN PRN Reason: Excessive sedation or RR < 8 Naloxone HCl (Naloxone Hcl 0.4 Mg/Ml Vial) 0.04 mg IVPUSH Q5M PRN PRN Reason: Excessive sedation or RR < 8 Nystatin (Nystatin Powder 15 Gm Bottle) 1 appl TOPICAL TID KATHERINE; Protocol Last Admin: 05/17/24 10:22 Dose: 1 appl Documented By: JAROCHO Omeprazole (Omeprazole 40 Mg Capsule.) 40 mg PO BID@0630,1630 [facility] Last Admin: 05/17/24 08:53 Dose: Not Given Documented By: JAROCHO Non-Admin Reason: Off unit: Dialysis Oxycodone HCl (Oxycodone Hcl Immed Release 5 Mg Tablet) 2.5 mg PO Q6H PRN PRN Reason: Pain, Moderate(Pain Scale 4-6) Last Admin: 05/17/24 08:51 Dose: 2.5 mg Documented By: JAROCHO Pharmacy Consult (Consult Rx Vancomycin Dosing) 1 each MISCELLANE DAILY PRN PRN Reason: Consult order Phenytoin Sodium (Phenytoin Sodium Extended 100 Mg Capsule) 100 mg PO TID [facility] Last Admin: 05/17/24 08:51 Dose: 100 mg Documented By: JAROCHO Sertraline HCl (Sertraline Hcl 100 Mg Tablet) 100 mg PO DAILY [facility] Last Admin: 05/17/24 08:51 Dose: 100 mg Documented By: JAROCHO Sodium Chloride (0.9 % Sodium Chloride Flush 3 Ml Syringe) 3 ml IVFLUSH QSHIFT [facility] Last Admin: 05/17/24 10:22 Dose: 3 ml Documented By: JAROCHO Trazodone HCl (Trazodone Hcl 100 Mg Tablet) 100 mg PO BEDTIME PRN PRN Reason: Sleep Last Admin: 05/10/24 21:12 Dose: 100 mg Documented By: NAM Valproic Acid (Valproic Acid 250 Mg Capsule) 1,000 mg PO BID [facility] Last Admin: 05/17/24 08:50 Dose: 1,000 mg Documented By: JAROCHO Vitamin D (Cholecalciferol (Vitamin D3) 25 Mcg Tablet) 50 mcg PO DAILY [facility] Last Admin: 05/17/24 08:50 Dose: 50 mcg Documented By: JAROCHO Labs 05/20/24 07:36 05/20/24 07:43 Labs: Laboratory Results - last 24 hr 05/16/24 05/16/24 05/16/24 08:30 14:30 14:45 MCV MCH MCHC RDW Plt Count MPV Absolute Nucleated RBC Nucleated RBC % (auto) Neutrophils % (Manual) Band Neutrophils % Lymphocytes % (Manual) Monocytes % (Manual) Eosinophils % (Manual) Metamyelocytes % Abs Neuts (Manual) Lymphocytes # (Manual) Monocytes # (Manual) Eosinophils # (Manual) Metamyelocytes # Platelet Estimate Plt Count ,Citrate Plt Morphology Comment RBC Morphology Hypochromasia Ovalocytes Anion Gap Estim Creat Clear Calc Estimated GFR POC Glucose Random Glucose Calcium Total Bilirubin AST ALT Alkaline Phosphatase Lactate Dehydrogenase Total Protein Albumin Stl C. cayetanensis PCR Not Detected Stool Rotavirus A PCR Not Detected Stl Adenov F 40/41 PCR Not Detected Stool Astrovirus (PCR) Not Detected Stool Campylobacter PCR Not Detected Stool Cryptosporidium PCR Not Detected Stl Sh Tox Pr E STEC PCR Not Detected Stool E coli O157 PCR Not applicable Stl Enterotoxigenic E PCR Not Detected Stool EPEC (PCR) Not Detected Stool EAEC (PCR) Not Detected Stl E. histolytica PCR Not Detected Stool Giardia Lamblia PCR Not Detected Stl P. shigelloides PCR Not Detected Stool Salmonella PCR Not Detected Stool Sapovirus (PCR) Not Detected Stl Shigella/EIEC PCR Not Detected St Y.enterocolitica PCR Not Detected Stool Vibrio (PCR) Not Detected Stl Vibrio cholerae PCR Not Detected Stl Norovirus GI/GII PCR Not Detected Random Vancomycin 12.4 L Respiratory Panel [place] See Note Adenovirus (Rapid PCR) Not Detected B.pert (TEM-PCR) Not Detected B.parapertussis DNA PCR Not Detected C. pneumoniae DNA (PCR) Not Detected C. difficile Tox B Gene NEGATIVE Coronavirus OC43 (PCR) Not Detected Coronavirus HKU1 (PCR) Not Detected Coronavirus 229E (PCR) Not Detected Coronavirus NL63 (PCR) Not Detected Hep Bs Antigen Hep Bs Antibody Hep B Core Total Ab Hepatitis C Ab (EIA) HIV 1&2 Ab/P24 Ag 4thGn Human Metapneumovir PCR Not Detected Influenza A (RT-PCR) Not Detected Influenza A (H1) PCR Not Detected Influ A (H1/09) PCR Not Detected Influenza A (H3) PCR Not Detected Influenza B (RT-PCR) Not Detected M. pneumoniae (PCR) Not Detected Parainfluenza 1 (PCR) Not Detected Parainfluenza 2 (PCR) Not Detected Parainfluenza 3 (PCR) Not Detected Parainfluenza 4 (PCR) Not Detected RSV (PCR) Not Detected Entero/Rhino (PCR) Not Detected SARS-CoV-2 RNA (RT-PCR) Not Detected Blood Type Antibody Screen Crossmatch 05/16/24 05/16/24 05/17/24 15:43 20:24 05:43 MCV 90.8 MCH 28.7 MCHC 31.6 RDW 21.4 H Plt Count TNP MPV TNP Absolute Nucleated RBC 0.000 Nucleated RBC % (auto) 0.0 Neutrophils % (Manual) 79 H Band Neutrophils % 6 H Lymphocytes % (Manual) 7 L Monocytes % (Manual) 4 Eosinophils % (Manual) 3 Metamyelocytes % 1 Abs Neuts (Manual) 9.8 H Lymphocytes # (Manual) 0.8 L Monocytes # (Manual) 0.5 Eosinophils # (Manual) 0.3 Metamyelocytes # 0.1 Platelet Estimate TNP Plt Count ,Citrate 120 L Plt Morphology Comment TNP RBC Morphology NOTED Hypochromasia 2+ (15-30) Ovalocytes 1+ (5-14) Anion Gap 15 Estim Creat Clear Calc 16.8 Estimated GFR 13 POC Glucose 136 H 150 H Random Glucose 105 Calcium 7.6 L Total Bilirubin 0.1 AST 20 ALT < 6 Alkaline Phosphatase 101 Lactate Dehydrogenase 256 H Total Protein 5.5 L Albumin 2.1 L Stl C. cayetanensis PCR Stool Rotavirus A PCR Stl Adenov F 40/41 PCR Stool Astrovirus (PCR) Stool Campylobacter PCR Stool Cryptosporidium PCR Stl Sh Tox Pr E STEC PCR Stool E coli O157 PCR Stl Enterotoxigenic E PCR Stool EPEC (PCR) Stool EAEC (PCR) Stl E. histolytica PCR Stool Giardia Lamblia PCR Stl P. shigelloides PCR Stool Salmonella PCR Stool Sapovirus (PCR) Stl Shigella/EIEC PCR St Y.enterocolitica PCR Stool Vibrio (PCR) Stl Vibrio cholerae PCR Stl Norovirus GI/GII PCR Random Vancomycin Respiratory Panel [place] Adenovirus (Rapid PCR) B.pert (TEM-PCR) B.parapertussis DNA PCR C. pneumoniae DNA (PCR) C. difficile Tox B Gene Coronavirus OC43 (PCR) Coronavirus HKU1 (PCR) Coronavirus 229E (PCR) Coronavirus NL63 (PCR) Hep Bs Antigen Negative Hep Bs Antibody NONREACTIVE Hep B Core Total Ab Nonreactive Hepatitis C Ab (EIA) Nonreactive HIV 1&2 Ab/P24 Ag 4thGn Nonreactive Human Metapneumovir PCR Influenza A (RT-PCR) Influenza A (H1) PCR Influ A (H1/) PCR Influenza A (H3) PCR Influenza B (RT-PCR) M. pneumoniae (PCR) Parainfluenza 1 (PCR) Parainfluenza 2 (PCR) Parainfluenza 3 (PCR) Parainfluenza 4 (PCR) RSV (PCR) Entero/Rhino (PCR) SARS-CoV-2 RNA (RT-PCR) Blood Type Antibody Screen Crossmatch 05/17/24 05/17/24 08:56 09:57 MCV MCH MCHC RDW Plt Count MPV Absolute Nucleated RBC Nucleated RBC % (auto) Neutrophils % (Manual) Band Neutrophils % Lymphocytes % (Manual) Monocytes % (Manual) Eosinophils % (Manual) Metamyelocytes % Abs Neuts (Manual) Lymphocytes # (Manual) Monocytes # (Manual) Eosinophils # (Manual) Metamyelocytes # Platelet Estimate Plt Count ,Citrate 183 D Plt Morphology Comment RBC Morphology Hypochromasia Ovalocytes Anion Gap Estim Creat Clear Calc Estimated GFR POC Glucose 112 Random Glucose Calcium Total Bilirubin AST ALT Alkaline Phosphatase Lactate Dehydrogenase Total Protein Albumin Stl C. cayetanensis PCR Stool Rotavirus A PCR Stl Adenov F 40/41 PCR Stool Astrovirus (PCR) Stool Campylobacter PCR Stool Cryptosporidium PCR Stl Sh Tox Pr E STEC PCR Stool E coli O157 PCR Stl Enterotoxigenic E PCR Stool EPEC (PCR) Stool EAEC (PCR) Stl E. histolytica PCR Stool Giardia Lamblia PCR Stl P. shigelloides PCR Stool Salmonella PCR Stool Sapovirus (PCR) Stl Shigella/EIEC PCR St Y.enterocolitica PCR Stool Vibrio (PCR) Stl Vibrio cholerae PCR Stl Norovirus GI/GII PCR Random Vancomycin Respiratory Panel [place] Adenovirus (Rapid PCR) B.pert (TEM-PCR) B.parapertussis DNA PCR C. pneumoniae DNA (PCR) C. difficile Tox B Gene Coronavirus OC43 (PCR) Coronavirus HKU1 (PCR) Coronavirus 229E (PCR) Coronavirus NL63 (PCR) Hep Bs Antigen Hep Bs Antibody Hep B Core Total Ab Hepatitis C Ab (EIA) HIV 1&2 Ab/P24 Ag 4thGn Human Metapneumovir PCR Influenza A (RT-PCR) Influenza A (H1) PCR Influ A (H1/) PCR Influenza A (H3) PCR Influenza B (RT-PCR) M. pneumoniae (PCR) Parainfluenza 1 (PCR) Parainfluenza 2 (PCR) Parainfluenza 3 (PCR) Parainfluenza 4 (PCR) RSV (PCR) Entero/Rhino (PCR) SARS-CoV-2 RNA (RT-PCR) Blood Type O Positive Antibody Screen NEGATIVE Crossmatch See Detail Microbiology Microbiology Results: Microbiology 05/15/24 Unknown Urine Culture - Preliminary Urine Catheterized - Straight Catheter Culture in progress. 05/14/24 16:30 Blood Culture - Final Blood - Venous 05/14/24 16:30 Blood Culture - Final Blood - Venous Procedures Date of Service Date of Service: 05/21/24 Progress Note: A&P Assessment and plan (1) Eschar of heel: Status: Acute Assessment and Plan: Also followed by wound care nurse Santyl dressings recommended Keep heel off of the bed Daily wound care Patient with recent subdural hematoma as well Other medical issues ongoing Time Spent With Patient Time: Total time managing care of this patient today ____ minutes. Quality Stroke Does the patient have a stroke diagnosis?: No VTE Prior VTE?: No VTE Risk Level:: Medical - moderate - high VTE Device Contraindication: N/A - Device Ordered VTE Drug Contraindication: Treatment Not Indicated
[2024-05-17 13:00] LABS: Iron 64 mcg/dL (30-160); Percent Iron Saturation 57 % (15-50); Total Iron Binding Capacity 112 mcg/dL (228-428); Unsaturated Iron Binding 48 ug/dL
[2024-05-17 13:31] LABS: Ferritin 1520 ng/mL (10-250)
--- NOTE | 2024-05-17 14:32 | P.PNIM_ITS ---
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 patient awake, alert with no complaints this morning Review of Systems Review of Systems: Yes all other systems are reviewed and are negative Constitutional Constitutional: Denies chills and Denies fever(s) Cardiovascular Cardiovascular: Denies chest pain and Denies dyspnea Respiratory Respiratory: Denies cough and Denies dyspnea Gastrointestinal Gastrointestinal: Denies abdominal pain Physical Exam 2 Vital Signs: Vital Signs: Last Vital Signs Temp 98.2 F 05/17/24 12:15 Pulse 100 05/17/24 12:00 Resp 16 05/17/24 12:15 BP 150/58 H 05/17/24 14:16 Pulse Ox 96 05/17/24 12:00 O2 Del Method Room Air 05/17/24 12:00 O2 Flow Rate 6 05/09/24 16:16 BMI result Body Mass Index 41.3 Const: General: comfortable, no acute distress, alert and awake Nutritional Appearance: obese Orientation/consciousness: patient oriented x3 GI: Inspection: No distended Palpation (GI): Soft to palpation Skin: Other: multiple skin wounds - see wound care nurse for individual wounds; off loading boots Neuro: General: patient oriented x3 and moves all extremities Objective Data Active Medications Acetaminophen (Acetaminophen 325 Mg Tablet) 650 mg PO Q6H PRN PRN Reason: Pain, Mild 1-3,fever,headache Last Admin: 05/16/24 23:14 Dose: 650 mg Documented By: SIRI Alteplase, Recombinant (Alteplase Cath Clear 2 Mg/2 Ml Vial) 2 mg INTRACATH ONCE PRN PRN Reason: dialysis Atorvastatin Calcium (Atorvastatin Calcium 80 Mg Tablet) 80 mg PO DAILY [facility] Last Admin: 05/17/24 08:51 Dose: 80 mg Documented By: DOUBLEDarcy Calcium Carbonate (Calcium Carbonate 750 Mg Tab.Chew) 750 mg PO Q4H PRN PRN Reason: Heartburn Collagenase (Collagenase Clostridium Hist. 30 Gm Tube) 1 appl TOPICAL DAILY [facility]; Protocol Dextrose (Dextrose 50 % 25 Gm/50 Ml Syringe) 25 gm IVPUSH Q15M PRN; Protocol PRN Reason: per Hypoglycemia Standing Ord. Docusate Sodium (Docusate Sodium 100 Mg Capsule) 100 mg PO BID [facility] Last Admin: 05/17/24 08:50 Dose: 100 mg Documented By: JAROCHO Ferrous Sulfate (Ferrous Sulfate 324 Mg Tablet.Dr) 324 mg PO DAILY [facility] Last Admin: 05/17/24 08:51 Dose: 324 mg Documented By: JAROCHO Folic Acid (Folic Acid 1 Mg Tablet) 1 mg PO DAILY [facility] Last Admin: 05/17/24 08:51 Dose: 1 mg Documented By: JAROCHO Furosemide (Furosemide 40 Mg Tablet) 80 mg PO BID [facility]; Protocol Last Admin: 05/17/24 08:50 Dose: 80 mg Documented By: JARCOHO Gabapentin (Gabapentin 100 Mg Capsule) 200 mg PO MOWEFR@1800 [facility] Gabapentin (Gabapentin 100 Mg Capsule) 100 mg PO DAILY [facility] Glucose (Glucose Gel 15 Gm Gel..Gram.) 15 gm PO Q15M PRN; Protocol PRN Reason: per Hypoglycemia Standing Ord. Last Admin: 05/14/24 16:36 Dose: 15 gm Documented By: DOC Vancomycin HCl 500 mg/ Sodium (Chloride) 110 mls @ 110 mls/hr IV ONCE ONE Stop: 05/16/24 15:44 Insulin Glargine (Insulin Glargine,Hum.Rec.Anlog 100 Unit/Ml 10 Ml Vial) 21 unit SUBCUT BEDTIME [facility] Last Admin: 05/16/24 20:32 Dose: 21 unit Documented By: SIRI Insulin Human Lispro (Insulin Lispro 100 Unit/Ml 3 Ml Vial) 0 unit SUBCUT QIDACHS [facility]; Protocol Last Admin: 05/17/24 09:00 Dose: Not Given Documented By: JAROCHO Non-Admin Reason: No Insulin Coverage Labetalol HCl (Labetalol Hcl 100 Mg/20 Ml Vial) 5 mg IVPUSH ONCE PRN PRN Reason: SBP > 160 Levetiracetam (Levetiracetam 500 Mg Tablet) 500 mg PO MOWEFR@1800 [facility] Last Admin: 05/15/24 20:01 Dose: 500 mg Documented By: SIRI Lorazepam (Lorazepam 0.5 Mg Tablet) 0.5 mg PO Q8H PRN PRN Reason: anxiety Last Admin: 05/17/24 11:18 Dose: 0.5 mg Documented By: JAROCHO Magnesium Hydroxide (Milk Of Magnesia 30 Ml Oral.Susp) 30 ml PO DAILY PRN PRN Reason: Constipation Melatonin (Melatonin 3 Mg Tablet) 6 mg PO BEDTIME PRN PRN Reason: Insomnia Last Admin: 05/16/24 23:14 Dose: 6 mg Documented By: SIRI Naloxone HCl (Naloxone Hcl 0.4 Mg/Ml Vial) 0.04 mg IVPUSH Q5M PRN PRN Reason: Excessive sedation or RR < 8 Naloxone HCl (Naloxone Hcl 0.4 Mg/Ml Vial) 0.04 mg IVPUSH Q5M PRN PRN Reason: Excessive sedation or RR < 8 Nystatin (Nystatin Powder 15 Gm Bottle) 1 appl TOPICAL TID [facility]; Protocol Last Admin: 05/17/24 10:22 Dose: 1 appl Documented By: JAROCHO Omeprazole (Omeprazole 40 Mg Capsule.Dr) 40 mg PO BID@0630,1630 [facility] Last Admin: 05/17/24 08:53 Dose: Not Given Documented By: JAROCHO Non-Admin Reason: Off unit: Dialysis Oxycodone HCl (Oxycodone Hcl Immed Release 5 Mg Tablet) 2.5 mg PO Q6H PRN PRN Reason: Pain, Moderate(Pain Scale 4-6) Last Admin: 05/17/24 08:51 Dose: 2.5 mg Documented By: JAROCHO Pharmacy Consult (Consult Rx Vancomycin Dosing) 1 each MISCELLANE DAILY PRN PRN Reason: Consult order Phenytoin Sodium (Phenytoin Sodium Extended 100 Mg Capsule) 100 mg PO TID [facility] Last Admin: 05/17/24 08:51 Dose: 100 mg Documented By: JAROCHO Sertraline HCl (Sertraline Hcl 100 Mg Tablet) 100 mg PO DAILY [facility] Last Admin: 05/17/24 08:51 Dose: 100 mg Documented By: JAROCHO Sodium Chloride (0.9 % Sodium Chloride Flush 3 Ml Syringe) 3 ml IVFLUSH QSHIFT [facility] Last Admin: 05/17/24 10:22 Dose: 3 ml Documented By: JAROCHO Trazodone HCl (Trazodone Hcl 100 Mg Tablet) 100 mg PO BEDTIME PRN PRN Reason: Sleep Last Admin: 05/10/24 21:12 Dose: 100 mg Documented By: NAM Valproic Acid (Valproic Acid 250 Mg Capsule) 1,000 mg PO BID [facility] Last Admin: 05/17/24 08:50 Dose: 1,000 mg Documented By: JAROCHO Vitamin D (Cholecalciferol (Vitamin D3) 25 Mcg Tablet) 50 mcg PO DAILY [facility] Last Admin: 05/17/24 08:50 Dose: 50 mcg Documented By: JAROCHO Labs 05/17/24 05:43 05/17/24 05:43 Labs: Laboratory Results - last 24 hr 05/16/24 05/16/24 05/16/24 14:30 14:45 15:43 MCV MCH MCHC RDW Plt Count MPV Absolute Nucleated RBC Nucleated RBC % (auto) Neutrophils % (Manual) Band Neutrophils % Lymphocytes % (Manual) Monocytes % (Manual) Eosinophils % (Manual) Metamyelocytes % Abs Neuts (Manual) Lymphocytes # (Manual) Monocytes # (Manual) Eosinophils # (Manual) Metamyelocytes # Platelet Estimate Plt Count ,Citrate Plt Morphology Comment RBC Morphology Hypochromasia Ovalocytes Anion Gap Estim Creat Clear Calc Estimated GFR POC Glucose 136 H Random Glucose Calcium Iron TIBC % Saturation Unsat Iron Binding Ferritin Total Bilirubin AST ALT Alkaline Phosphatase Lactate Dehydrogenase Total Protein Albumin Stl C. cayetanensis PCR Not Detected Stool Rotavirus A PCR Not Detected Stl Adenov F 40/41 PCR Not Detected Stool Astrovirus (PCR) Not Detected Stool Campylobacter PCR Not Detected Stool Cryptosporidium PCR Not Detected Stl Sh Tox Pr E STEC PCR Not Detected Stool E coli O157 PCR Not applicable Stl Enterotoxigenic E PCR Not Detected Stool EPEC (PCR) Not Detected Stool EAEC (PCR) Not Detected Stl E. histolytica PCR Not Detected Stool Giardia Lamblia PCR Not Detected Stl P. shigelloides PCR Not Detected Stool Salmonella PCR Not Detected Stool Sapovirus (PCR) Not Detected Stl Shigella/EIEC PCR Not Detected St Y.enterocolitica PCR Not Detected Stool Vibrio (PCR) Not Detected Stl Vibrio cholerae PCR Not Detected Stl Norovirus GI/GII PCR Not Detected Random Vancomycin 12.4 L C. difficile Tox B Gene NEGATIVE Hep Bs Antigen Hep Bs Antibody Hep B Core Total Ab Hepatitis C Ab (EIA) HIV 1&2 Ab/P24 Ag 4thGn Blood Type Antibody Screen Crossmatch 05/16/24 05/17/24 05/17/24 20:24 05:43 08:56 MCV 90.8 MCH 28.7 MCHC 31.6 RDW 21.4 H Plt Count TNP MPV TNP Absolute Nucleated RBC 0.000 Nucleated RBC % (auto) 0.0 Neutrophils % (Manual) 79 H Band Neutrophils % 6 H Lymphocytes % (Manual) 7 L Monocytes % (Manual) 4 Eosinophils % (Manual) 3 Metamyelocytes % 1 Abs Neuts (Manual) 9.8 H Lymphocytes # (Manual) 0.8 L Monocytes # (Manual) 0.5 Eosinophils # (Manual) 0.3 Metamyelocytes # 0.1 Platelet Estimate TNP Plt Count ,Citrate 120 L Plt Morphology Comment TNP RBC Morphology NOTED Hypochromasia 2+ (15-30) Ovalocytes 1+ (5-14) Anion Gap 15 Estim Creat Clear Calc 16.8 Estimated GFR 13 POC Glucose 150 H 112 Random Glucose 105 Calcium 7.6 L Iron 64 TIBC 112 L % Saturation 57 H Unsat Iron Binding 48 Ferritin 1520 H Total Bilirubin 0.1 AST 20 ALT < 6 Alkaline Phosphatase 101 Lactate Dehydrogenase 256 H Total Protein 5.5 L Albumin 2.1 L Stl C. cayetanensis PCR Stool Rotavirus A PCR Stl Adenov F 40/41 PCR Stool Astrovirus (PCR) Stool Campylobacter PCR Stool Cryptosporidium PCR Stl Sh Tox Pr E STEC PCR Stool E coli O157 PCR Stl Enterotoxigenic E PCR Stool EPEC (PCR) Stool EAEC (PCR) Stl E. histolytica PCR Stool Giardia Lamblia PCR Stl P. shigelloides PCR Stool Salmonella PCR Stool Sapovirus (PCR) Stl Shigella/EIEC PCR St Y.enterocolitica PCR Stool Vibrio (PCR) Stl Vibrio cholerae PCR Stl Norovirus GI/GII PCR Random Vancomycin C. difficile Tox B Gene Hep Bs Antigen Negative Hep Bs Antibody NONREACTIVE Hep B Core Total Ab Nonreactive Hepatitis C Ab (EIA) Nonreactive HIV 1&2 Ab/P24 Ag 4thGn Nonreactive Blood Type Antibody Screen Crossmatch 05/17/24 09:57 MCV MCH MCHC RDW Plt Count MPV Absolute Nucleated RBC Nucleated RBC % (auto) Neutrophils % (Manual) Band Neutrophils % Lymphocytes % (Manual) Monocytes % (Manual) Eosinophils % (Manual) Metamyelocytes % Abs Neuts (Manual) Lymphocytes # (Manual) Monocytes # (Manual) Eosinophils # (Manual) Metamyelocytes # Platelet Estimate Plt Count ,Citrate 183 D Plt Morphology Comment RBC Morphology Hypochromasia Ovalocytes Anion Gap Estim Creat Clear Calc Estimated GFR POC Glucose Random Glucose Calcium Iron TIBC % Saturation Unsat Iron Binding Ferritin Total Bilirubin AST ALT Alkaline Phosphatase Lactate Dehydrogenase Total Protein Albumin Stl C. cayetanensis PCR Stool Rotavirus A PCR Stl Adenov F PCR Stool Astrovirus (PCR) Stool Campylobacter PCR Stool Cryptosporidium PCR Stl Sh Tox Pr E STEC PCR Stool E coli O157 PCR Stl Enterotoxigenic E PCR Stool EPEC (PCR) Stool EAEC (PCR) Stl E. histolytica PCR Stool Giardia Lamblia PCR Stl P. shigelloides PCR Stool Salmonella PCR Stool Sapovirus (PCR) Stl Shigella/EIEC PCR St Y.enterocolitica PCR Stool Vibrio (PCR) Stl Vibrio cholerae PCR Stl Norovirus GI/GII PCR Random Vancomycin C. difficile Tox B Gene Hep Bs Antigen Hep Bs Antibody Hep B Core Total Ab Hepatitis C Ab (EIA) HIV 1&2 Ab/P24 Ag 4thGn Blood Type O Positive Antibody Screen NEGATIVE Crossmatch See Detail Microbiology Microbiology Results: Microbiology 05/15/24 Unknown Urine Culture - Preliminary Urine Catheterized - Straight Catheter Culture in progress. 05/14/24 16:30 Blood Culture - Final Blood - Venous 05/14/24 16:30 Blood Culture - Final Blood - Venous Assessment and Plan (1) Thrombocytopenia: Status: Acute (2) Eschar of heel: Status: Acute (3) ESRD (end stage renal disease) on dialysis: Status: Acute (4) Anemia of chronic renal failure, stage 4 (severe): Status: Acute Plan This is a 68-year-old female with a PMH significant for?ESRD on HD M/W/F, HFpEF, seizure disorder, insulin-dependent type 2 diabetes, hx of osteomyelitis s/p left 5th toe amp on 03/28/2024, anemia of chronic disease requiring frequent transfusions, asthma, HTN, and GERD who presented to the ED after fall at home earlier imaging showing small subdural hematoma also found to have cellulitis with sepsis secondary to chronic diabetic foot ulcer and community-acquired pneumonia. Subdural hematoma CT small right parafalcine subdural hematoma up to 4 mm in thickness; repeat CT 6 hours later stable S/p fall at home with head strike on table; no LOC; neuro exam intact; pt AO x3; GCS 15 ED clinician contacted Neurosurgery at [facility] who said no intervention necessary Spoke with Neurology here who was in agreement with admission and observation Hold aspirin head zeyad removed 05/14 Left foot cellulitis with sepsis S/P fifth digit amputation d/t diabetic foot infection osteomyelitis on 03/28/2024. initially met sepsis criteria with tachycardia, tachypnea and leukocytosis above baseline; lactic acid 2.2 repeat 1.5 seen by surgery s/p debridement 05/09 continue vancomycin seen by ID, rec 6 weeks IV abx upon discharge toxic metabolic encephalopathy Sedating meds including Seroquel, trazodone, gabapentin placed on hold - will resume lower dose of gabapentin patient awake, alert today possible UTI Urine culture growing VRE -discussed with ID, likely colonization, no need to treat we will stop Zyvox Multiple skin wounds Wound care nurse following- see wound note for images/detailed plan abdominal pain. resolved KUB showing possible ileus, large stool burden - now with diarrhea diarrhea stool studies negative Acute on chronic anemia of chronic disease H&H 6.0/17.5 at time presentation, reduced from 9.9/29.8 on 04/09/2024 no active bleeding Received 2 units PRBCs in the ED h/h trending down again today, 1 unit of blood ordered follow CBC thrombocytopenia intermittent most lab values, unable to perform test due to platelet clumping - draw with citrate tube seen by hematology - HIV, hepatitis panel negative Question of community-acquired pneumonia on admission CXR showed probable right lower lobe pneumonia Pt not hypoxic, not requiring supplemental O2 completed course of abx RPP negative ESRD on HD M/W/F Nephrology following hemodialysis catheter replaced by IR 05/09 due to poor function Follow BMP Insulin-dependent type 2 diabetes Sliding-scale insulin, Lantus Diabetic diet Seizure disorder Continue levetiracetam, valproate, and phenytoin HTN Continue and losartan Mood disorder Continue sertraline, lorazepam HLD continue statin requires ongoing inpatient stay for wound care/pain management, thrombocytopneia/anemia,diarrhea Quality Stroke Does the patient have a stroke diagnosis?: No VTE Prior VTE?: No VTE Risk Level:: Medical - moderate - high VTE Device Contraindication: N/A - Device Ordered VTE Drug Contraindication: Treatment Not Indicated
[2024-05-17 16:30] LABS: Glucose, Whole Blood 100 mg/dL (60-115)
[2024-05-17] MEDS: levETIRAcetam 500 MG TABLET PO (17:19)
[2024-05-17] MEDS: Gabapentin 100 MG CAPSULE 200 MG PO (17:19)
[2024-05-17] MEDS: Omeprazole 40 MG CAPSULE.DR PO (17:19)
--- NOTE | 2024-05-17 17:35 | P.PNNP_ITS ---
Subjective Subjective Date of Service: 05/17/24 Interval history: Seen and examined, events noted Physical Exam 2 Vital Signs: Vital Signs: Last Vital Signs Temp 99 F 05/17/24 16:10 Pulse 95 05/17/24 16:10 Resp 16 05/17/24 16:10 BP 160/56 H 05/17/24 16:10 Pulse Ox 96 05/17/24 15:26 O2 Del Method Room Air 05/17/24 15:26 O2 Flow Rate 6 05/09/24 16:16 BMI result Body Mass Index 41.3 Const: General: no acute distress Nutritional Appearance: well nourished Neck: Neck: Yes supple Resp: Effort & Inspection: normal respiratory effort, no audible wheezes, no cough and no respiratory distress Auscultation: diminished lung sounds Cardio: Heart sounds: S1 normal heart sound present and S2 normal heart sound present GI: Inspection: Yes normal to inspection Palpation (GI): Soft to palpation and nontender Neuro: Other: She is little bit drowsy but able to communicate answer questions and follow commands. Face is symmetrical. Visual lambert are full. There is no focal arm or leg weakness. Plantars are flexor. Deep tendon reflexes are absent in chronic sign of neuropathy are noted in feet. 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 Incision is noted to be open with some surrounding callus formation. No purulence discharge was identified. Slight erythema is noted in the surrounding skin. Right upper extremity: edema Objective Data Labs 05/17/24 05:43 05/17/24 05:43 Labs: Laboratory Results - last 24 hr 05/16/24 05/16/24 05/17/24 14:30 20:24 05:43 WBC 11.5 H RBC 1.95 L D Hgb 5.6 L* D Hct 17.7 L* D MCV 90.8 MCH 28.7 MCHC 31.6 RDW 21.4 H Plt Count TNP MPV TNP Absolute Nucleated RBC 0.000 Nucleated RBC % (auto) 0.0 Neutrophils % (Manual) 79 H Band Neutrophils % 6 H Lymphocytes % (Manual) 7 L Monocytes % (Manual) 4 Eosinophils % (Manual) 3 Metamyelocytes % 1 Abs Neuts (Manual) 9.8 H Lymphocytes # (Manual) 0.8 L Monocytes # (Manual) 0.5 Eosinophils # (Manual) 0.3 Metamyelocytes # 0.1 Platelet Estimate TNP Plt Count ,Citrate 120 L Plt Morphology Comment TNP RBC Morphology NOTED Hypochromasia 2+ (15-30) Ovalocytes 1+ (5-14) Sodium 141 Potassium 3.0 L Chloride 104 Carbon Dioxide 25 Anion Gap 15 BUN 36 H Creatinine 3.62 H Estim Creat Clear Calc 16.8 Estimated GFR 13 POC Glucose 150 H Random Glucose 105 Calcium 7.6 L Iron 64 TIBC 112 L % Saturation 57 H Unsat Iron Binding 48 Ferritin 1520 H Total Bilirubin 0.1 AST 20 ALT < 6 Alkaline Phosphatase 101 Lactate Dehydrogenase 256 H Total Protein 5.5 L Albumin 2.1 L Stl C. cayetanensis PCR Not Detected Stool Rotavirus A PCR Not Detected Stl Adenov F 40/41 PCR Not Detected Stool Astrovirus (PCR) Not Detected Stool Campylobacter PCR Not Detected Stool Cryptosporidium PCR Not Detected Stl Sh Tox Pr E STEC PCR Not Detected Stool E coli O157 PCR Not applicable Stl Enterotoxigenic E PCR Not Detected Stool EPEC (PCR) Not Detected Stool EAEC (PCR) Not Detected Stl E. histolytica PCR Not Detected Stool Giardia Lamblia PCR Not Detected Stl P. shigelloides PCR Not Detected Stool Salmonella PCR Not Detected Stool Sapovirus (PCR) Not Detected Stl Shigella/EIEC PCR Not Detected St Y.enterocolitica PCR Not Detected Stool Vibrio (PCR) Not Detected Stl Vibrio cholerae PCR Not Detected Stl Norovirus GI/GII PCR Not Detected Hep Bs Antigen Negative Hep Bs Antibody NONREACTIVE Hep B Core Total Ab Nonreactive Hepatitis C Ab (EIA) Nonreactive HIV 1&2 Ab/P24 Ag 4thGn Nonreactive Blood Type Antibody Screen Crossmatch 05/17/24 05/17/24 05/17/24 08:56 09:57 16:26 WBC RBC Hgb Hct MCV MCH MCHC RDW Plt Count MPV Absolute Nucleated RBC Nucleated RBC % (auto) Neutrophils % (Manual) Band Neutrophils % Lymphocytes % (Manual) Monocytes % (Manual) Eosinophils % (Manual) Metamyelocytes % Abs Neuts (Manual) Lymphocytes # (Manual) Monocytes # (Manual) Eosinophils # (Manual) Metamyelocytes # Platelet Estimate Plt Count ,Citrate 183 D Plt Morphology Comment RBC Morphology Hypochromasia Ovalocytes Sodium Potassium Chloride Carbon Dioxide Anion Gap BUN Creatinine Estim Creat Clear Calc Estimated GFR POC Glucose 112 100 Random Glucose Calcium Iron TIBC % Saturation Unsat Iron Binding Ferritin Total Bilirubin AST ALT Alkaline Phosphatase Lactate Dehydrogenase Total Protein Albumin Stl C. cayetanensis PCR Stool Rotavirus A PCR Stl Adenov F PCR Stool Astrovirus (PCR) Stool Campylobacter PCR Stool Cryptosporidium PCR Stl Sh Tox Pr E STEC PCR Stool E coli O157 PCR Stl Enterotoxigenic E PCR Stool EPEC (PCR) Stool EAEC (PCR) Stl E. histolytica PCR Stool Giardia Lamblia PCR Stl P. shigelloides PCR Stool Salmonella PCR Stool Sapovirus (PCR) Stl Shigella/EIEC PCR St Y.enterocolitica PCR Stool Vibrio (PCR) Stl Vibrio cholerae PCR Stl Norovirus GI/GII PCR Hep Bs Antigen Hep Bs Antibody Hep B Core Total Ab Hepatitis C Ab (EIA) HIV 1&2 Ab/P24 Ag 4thGn Blood Type O Positive Antibody Screen NEGATIVE Crossmatch See Detail Microbiology Microbiology Results: Microbiology 05/15/24 Unknown Urine Catheterized - Straight Catheter Urine Culture - Preliminary Culture in progress. 05/14/24 16:30 Blood - Venous Blood Culture - Final 05/14/24 16:30 Blood - Venous Blood Culture - Final 05/07/24 20:30 Urine clean catch Urine Culture - Final Ira albicans Enterococcus faecium 05/09/24 15:10 Heel, Right Gram Stain - Final 05/09/24 15:10 Heel, Right Routine Culture - Final Staphylococcus aureus 05/04/24 08:25 Blood - Venous Blood Culture - Final No growth after 5 days. 05/04/24 08:26 Blood - Venous Blood Culture - Final No growth after 5 days. 05/04/24 15:12 Urine clean catch - Clean Catch Midstream Urine Culture - Final Procedures Date of Service Date of Service: 05/17/24 Assessment & Plan Assessment and plan (1) ESRD (end stage renal disease): Status: Acute (2) Acute subdural hematoma: Status: Acute (3) Anemia: Status: Acute Plan ESRD on HD at [facility] HD today nephrogenic anemia and sudden drop of HB is cocnerning for ongoing blood loss vs hemolysis--heme eval Low PLT: hem eval, clumping vs true thrombocytopenia REC Heme consut consider CT of abd/pelvis to r/o internal bleeding---retroperitonela bleed renal diet P binders DALILA d/c planning Time Spent With Patient Time: Total time managing care of this patient today ____ minutes. Progress Note: Quality Stroke Does the patient have a stroke diagnosis?: No
[2024-05-17] MEDS: vancomycin HCL 500 MG in 0.9 % Sodium Chloride 100 ML 110 MG IV (20:03)
[2024-05-17] MEDS: Acetaminophen 325 MG TABLET 650 MG PO (20:13)
[2024-05-17] MEDS: Insulin Glargine,Hum.rec.anlog 100 UNIT/ML 10 ML VIAL 21 UNIT SUBCUT (22:00)
[2024-05-17 22:02] LABS: Glucose, Whole Blood 95 mg/dL (60-115)
[2024-05-18] VITALS: BP 149/70; PULSE 86; RESP 16; TEMP 36.9; O2SAT 96
[2024-05-18 04:00] VITALS: BP 137/60; PULSE 81; RESP 16; TEMP 36.9; O2SAT 93
[2024-05-18 06:00] VITALS: BMI 42.5
[2024-05-18] MEDS: Glucose Gel 15 GM GEL..GRAM. PO (06:56)
[2024-05-18 07:01] LABS: Glucose, Whole Blood 44 mg/dL (60-115)
[2024-05-18 07:14] LABS: Anion Gap 14 (12-20); Blood Urea Nitrogen 27 mg/dL (9-16); Calcium 7.9 mg/dL (8.4-10.2); Carbon Dioxide 26 mmol/L (22-29); Chloride 103 mmol/L (96-108); Creatinine Clr Calc Pharmacy 19.6; Estimated Glomerular Filt Rate 15; Sodium 140 mmol/L (135-145)
[2024-05-18 07:18] LABS: Glucose Random 45 mg/dL (60-115)
[2024-05-18 07:22] VITALS: BP 160/70; PULSE 94; RESP 20; TEMP 36.8; O2SAT 96
[2024-05-18 07:31] LABS: Glucose, Whole Blood 81 mg/dL (60-115)
[2024-05-18 07:38] LABS: Hematocrit 22.3 % (37.0-47.0); Hemoglobin 7.5 g/dl (12.0-16.0); Mean Corpuscular HGB Conc 33.6 g/dl (31.0-35.0); Mean Corpuscular Hemoglobin 29.4 pg (27.0-33.0); Mean Corpuscular Volume 87.5 fL (80.0-98.0); PLT CLUMP 1; Red Blood Count 2.55 X10*6/uL (4.20-5.50); Red Cell Distribution Width 19.4 % (11.0-16.0)
[2024-05-18 07:39] LABS: White Blood Count 12.8 X10*3/uL (4.8-10.8)
[2024-05-18 07:59] LABS: Glucose, Whole Blood 89 mg/dL (60-115)
[2024-05-18 08:15] LABS: Immature Retic Fraction 18.8 % (3.0-15.9); Retic HGB Equivalent 32.7 pg (30.0-35.0); Reticulocytes Absolute 0.022 X10*6/uL (0.026-0.095)
[2024-05-18 08:16] LABS: Reticulocyte Percent 0.8 % (0.5-1.8)
[2024-05-18] MEDS: Furosemide 40 MG TABLET 80 MG PO ×2 (09:44→20:39)
[2024-05-18] MEDS: Phenytoin Sodium Extended 100 MG CAPSULE PO ×3 (09:45→20:38)
[2024-05-18] MEDS: Omeprazole 40 MG CAPSULE.DR PO (09:45)
[2024-05-18] MEDS: Sertraline HCL 100 MG TABLET PO (09:45)
[2024-05-18] MEDS: Cholecalciferol (Vitamin D3) 25 MCG TABLET 50 MCG PO (09:45)
[2024-05-18] MEDS: Valproic Acid 250 MG CAPSULE 1000 MG PO ×2 (09:46→20:39)
[2024-05-18] MEDS: Gabapentin 100 MG CAPSULE PO (09:46)
[2024-05-18] MEDS: Ferrous Sulfate 324 MG TABLET.DR PO (09:46)
[2024-05-18] MEDS: Atorvastatin Calcium 80 MG TABLET PO (09:46)
[2024-05-18] MEDS: Folic Acid 1 MG TABLET PO (09:46)
[2024-05-18] MEDS: 0.9 % Sodium Chloride Flush 3 ML SYRINGE IVFLUSH ×2 (09:47→20:45)
[2024-05-18] MEDS: Nystatin Powder 15 GM BOTTLE 1 APPL TOPICAL ×3 (09:47→21:31)
[2024-05-18] MEDS: Collagenase Clostridium Hist. 30 GM TUBE 1 APPL TOPICAL (09:47)
[2024-05-18] MEDS: oxyCODONE HCl Immed Release 5 MG TABLET 2.5 MG PO ×2 (09:59→16:46)
[2024-05-18 10:54] VITALS: BP 149/67; PULSE 81; RESP 20; TEMP 36.2; O2SAT 99
[2024-05-18 10:55] LABS: Glucose, Whole Blood 115 mg/dL (60-115)
--- NOTE | 2024-05-18 12:59 | P.PNIM_ITS ---
Subjective Subjective Date of Service: 05/18/24 Interval History: Seen and examined this morning Follow-up for multiple skin wounds, subdural hematoma Awake and alert but vague historian, continues to have multiple complaints of pain, but location changes frequently Poor po intake Review of Systems Review of Systems: Yes all other systems are reviewed and are negative Constitutional Constitutional: Denies fever(s) Cardiovascular Cardiovascular: Denies chest pain Physical Exam 2 Vital Signs: Vital Signs: Last Vital Signs Temp 97.1 F 05/18/24 10:54 Pulse 81 05/18/24 10:54 Resp 20 05/18/24 10:54 BP 149/67 H 05/18/24 10:54 Pulse Ox 99 05/18/24 10:54 O2 Del Method Room Air 05/18/24 10:54 O2 Flow Rate 6 05/09/24 16:16 BMI result Body Mass Index 42.5 Const: General: comfortable, no acute distress, alert and awake Nutritional Appearance: obese Orientation/consciousness: patient oriented x3 Resp: Effort & Inspection: normal respiratory effort, able to speak in complete sentences, no respiratory distress and no use of accessory muscles Cardio: Rate: regular rate GI: Inspection: No distended Palpation (GI): Soft to palpation and nontender Skin: Other: multiple skin wounds - see wound care nurse for individual wounds; off loading boots Neuro: Other: grossly nonfocal General: patient oriented x3 Extrem: Other: b/l heels in offloading boots Objective Data Active Medications Acetaminophen (Acetaminophen 325 Mg Tablet) 650 mg PO Q6H PRN PRN Reason: Pain, Mild 1-3,fever,headache Last Admin: 05/17/24 20:13 Dose: 650 mg Documented By: DOUGLAS Alteplase, Recombinant (Alteplase Cath Clear 2 Mg/2 Ml Vial) 2 mg INTRACATH ONCE PRN PRN Reason: dialysis Atorvastatin Calcium (Atorvastatin Calcium 80 Mg Tablet) 80 mg PO DAILY [facility] Last Admin: 05/18/24 09:46 Dose: 80 mg Documented By: JAROCHO Calcium Carbonate (Calcium Carbonate 750 Mg Tab.Chew) 750 mg PO Q4H PRN PRN Reason: Heartburn Collagenase (Collagenase Clostridium Hist. 30 Gm Tube) 1 appl TOPICAL DAILY [facility]; Protocol Last Admin: 05/18/24 09:47 Dose: 1 appl Documented By: JAROCHO Dextrose (Dextrose 50 % 25 Gm/50 Ml Syringe) 25 gm IVPUSH Q15M PRN; Protocol PRN Reason: per Hypoglycemia Standing Ord. Docusate Sodium (Docusate Sodium 100 Mg Capsule) 100 mg PO BID [facility] Last Admin: 05/18/24 09:48 Dose: Not Given Documented By: JAROCHO Non-Admin Reason: loose stools Ferrous Sulfate (Ferrous Sulfate 324 Mg Tablet.) 324 mg PO DAILY [facility] Last Admin: 05/18/24 09:46 Dose: 324 mg Documented By: JAROCHO Folic Acid (Folic Acid 1 Mg Tablet) 1 mg PO DAILY [facility] Last Admin: 05/18/24 09:46 Dose: 1 mg Documented By: JAROCHO Furosemide (Furosemide 40 Mg Tablet) 80 mg PO BID [facility]; Protocol Last Admin: 05/18/24 09:44 Dose: 80 mg Documented By: JAROCHO Gabapentin (Gabapentin 100 Mg Capsule) 200 mg PO MOWEFR@1800 [facility] Last Admin: 05/17/24 17:19 Dose: 200 mg Documented By: JAROCHO Gabapentin (Gabapentin 100 Mg Capsule) 100 mg PO DAILY [facility] Last Admin: 05/18/24 09:46 Dose: 100 mg Documented By: JAROCHO Glucose (Glucose Gel 15 Gm Gel..Gram.) 15 gm PO Q15M PRN; Protocol PRN Reason: per Hypoglycemia Standing Ord. Last Admin: 05/18/24 06:56 Dose: 15 gm Documented By: DOUGLAS Comments: poc 44 Vancomycin HCl 500 mg/ Sodium (Chloride) 110 mls @ 110 mls/hr IV ONCE ONE Stop: 05/16/24 15:44 Insulin Glargine (Insulin Glargine,Hum.Rec.Anlog 100 Unit/Ml 10 Ml Vial) 15 unit SUBCUT BEDTIME [facility] Insulin Human Lispro (Insulin Lispro 100 Unit/Ml 3 Ml Vial) 0 unit SUBCUT QIDACHS [facility]; Protocol Last Admin: 05/18/24 11:33 Dose: Not Given Documented By: JAROCHO Non-Admin Reason: No Insulin Coverage Levetiracetam (Levetiracetam 500 Mg Tablet) 500 mg PO MOWEFR@1800 [facility] Last Admin: 05/17/24 17:19 Dose: 500 mg Documented By: JAROCHO Lorazepam (Lorazepam 0.5 Mg Tablet) 0.5 mg PO Q8H PRN PRN Reason: anxiety Last Admin: 05/17/24 20:13 Dose: 0.5 mg Documented By: DOUGLAS Magnesium Hydroxide (Milk Of Magnesia 30 Ml Oral.Susp) 30 ml PO DAILY PRN PRN Reason: Constipation Melatonin (Melatonin 3 Mg Tablet) 6 mg PO BEDTIME PRN PRN Reason: Insomnia Last Admin: 05/16/24 23:14 Dose: 6 mg Documented By: JOSEPH-CONNO Naloxone HCl (Naloxone Hcl 0.4 Mg/Ml Vial) 0.04 mg IVPUSH Q5M PRN PRN Reason: Excessive sedation or RR < 8 Naloxone HCl (Naloxone Hcl 0.4 Mg/Ml Vial) 0.04 mg IVPUSH Q5M PRN PRN Reason: Excessive sedation or RR < 8 Nystatin (Nystatin Powder 15 Gm Bottle) 1 appl TOPICAL TID [facility]; Protocol Last Admin: 05/18/24 09:47 Dose: 1 appl Documented By: JAROCHO Omeprazole (Omeprazole 40 Mg Capsule.) 40 mg PO BID@0630,1630 [facility] Last Admin: 05/18/24 09:45 Dose: 40 mg Documented By: JAROCHO Oxycodone HCl (Oxycodone Hcl Immed Release 5 Mg Tablet) 2.5 mg PO Q6H PRN PRN Reason: Pain, Moderate(Pain Scale 4-6) Last Admin: 05/18/24 09:59 Dose: 2.5 mg Documented By: JAROCHO Pharmacy Consult (Consult Rx Vancomycin Dosing) 1 each MISCELLANE DAILY PRN PRN Reason: Consult order Phenytoin Sodium (Phenytoin Sodium Extended 100 Mg Capsule) 100 mg PO TID [facility] Last Admin: 05/18/24 09:45 Dose: 100 mg Documented By: JAROCHO Sertraline HCl (Sertraline Hcl 100 Mg Tablet) 100 mg PO DAILY [facility] Last Admin: 05/18/24 09:45 Dose: 100 mg Documented By: JAROCHO Sodium Chloride (0.9 % Sodium Chloride Flush 3 Ml Syringe) 3 [facility] Last Admin: 05/18/24 09:47 Dose: 3 ml Documented By: JAROCHO Trazodone HCl (Trazodone Hcl 100 Mg Tablet) 100 mg PO BEDTIME PRN PRN Reason: Sleep Last Admin: 05/10/24 21:12 Dose: 100 mg Documented By: NAM Valproic Acid (Valproic Acid 250 Mg Capsule) 1,000 mg PO BID [facility] Last Admin: 05/18/24 09:46 Dose: 1,000 mg Documented By: JAROCHO Vitamin D (Cholecalciferol (Vitamin D3) 25 Mcg Tablet) 50 mcg PO DAILY [facility] Last Admin: 05/18/24 09:45 Dose: 50 mcg Documented By: JAROCHO Labs 05/18/24 06:39 05/18/24 06:39 Labs: Laboratory Results - last 24 hr 05/17/24 05/17/24 05/17/24 05:43 09:57 16:26 MCV MCH MCHC RDW Plt Count MPV Absolute Nucleated RBC Nucleated RBC % (auto) Absolute Retic Percent Retic Immature Retic Fraction Retic Hgb Equivalent Anion Gap Estim Creat Clear Calc Estimated GFR POC Glucose 100 Random Glucose Calcium Iron 64 TIBC 112 L % Saturation 57 H Unsat Iron Binding 48 Ferritin 1520 H Random Vancomycin Blood Type O Positive Antibody Screen NEGATIVE Crossmatch See Detail 05/17/24 05/17/24 05/18/24 18:05 21:57 06:39 MCV 87.5 MCH 29.4 MCHC 33.6 RDW 19.4 H Plt Count TNP MPV TNP Absolute Nucleated RBC 0.000 Nucleated RBC % (auto) 0.0 Absolute Retic 0.022 L Percent Retic 0.8 Immature Retic Fraction 18.8 H Retic Hgb Equivalent 32.7 Anion Gap 14 Estim Creat Clear Calc 19.6 Estimated GFR 15 POC Glucose 95 Random Glucose 45 L* Calcium 7.9 L Iron TIBC % Saturation Unsat Iron Binding Ferritin Random Vancomycin 13.0 L Blood Type Antibody Screen Crossmatch 05/18/24 05/18/24 05/18/24 06:51 07:27 07:56 MCV MCH MCHC RDW Plt Count MPV Absolute Nucleated RBC Nucleated RBC % (auto) Absolute Retic Percent Retic Immature Retic Fraction Retic Hgb Equivalent Anion Gap Estim Creat Clear Calc Estimated GFR POC Glucose 44 L* 81 89 Random Glucose Calcium Iron TIBC % Saturation Unsat Iron Binding Ferritin Random Vancomycin Blood Type Antibody Screen Crossmatch 05/18/24 10:49 MCV MCH MCHC RDW Plt Count MPV Absolute Nucleated RBC Nucleated RBC % (auto) Absolute Retic Percent Retic Immature Retic Fraction Retic Hgb Equivalent Anion Gap Estim Creat Clear Calc Estimated GFR POC Glucose 115 Random Glucose Calcium Iron TIBC % Saturation Unsat Iron Binding Ferritin Random Vancomycin Blood Type Antibody Screen Crossmatch Microbiology Microbiology Results: Microbiology 05/15/24 Unknown Urine Culture - Final Urine Catheterized - Straight Catheter Ira albicans Enterococcus faecium Assessment and Plan (1) Thrombocytopenia: Status: Acute (2) Eschar of heel: Status: Acute (3) Cellulitis: Status: Acute (4) ESRD (end stage renal disease) on dialysis: Status: Acute (5) Acute subdural hematoma: Status: Acute (6) Anemia: Status: Acute Plan This is a 68-year-old female with a PMH significant for?ESRD on HD M/W/F, HFpEF, seizure disorder, insulin-dependent type 2 diabetes, hx of osteomyelitis s/p left 5th toe amp on 03/28/2024, anemia of chronic disease requiring frequent transfusions, asthma, HTN, and GERD who presented to the ED after fall at home earlier imaging showing small subdural hematoma also found to have cellulitis with sepsis secondary to chronic diabetic foot ulcer and community-acquired pneumonia. Insulin-dependent type 2 diabetes with hypoglycemia POCs trending down, asymptomatic episode of hypoglycemia this am likely due to poor po intake reduce Lantus by half, can up titrate prn continue Sliding-scale insulin Diabetic diet Left foot cellulitis with sepsis S/P fifth digit amputation d/t diabetic foot infection osteomyelitis on 03/28/2024. initially met sepsis criteria with tachycardia, tachypnea and leukocytosis above baseline; lactic acid 2.2 repeat 1.5 seen by surgery s/p debridement 05/09 continue vancomycin seen by ID, rec 6 weeks IV abx upon discharge blood cultures negative toxic metabolic encephalopathy Sedating meds including Seroquel, trazodone, gabapentin placed on hold - resumed lower dose of gabapentin due to complaints of pain patient awake, alert today possible UTI Urine culture growing VRE -discussed with ID, likely colonization, no need to treat we will stop Zyvox Multiple skin wounds Wound care nurse following- see wound note for images/detailed plan have switched to santyl for enzymatic debridement as not much progress with wet to dry dressings surgery following Subdural hematoma CT small right parafalcine subdural hematoma up to 4 mm in thickness; repeat CT 6 hours later stable S/p fall at home with head strike on table; no LOC; neuro exam intact; pt AO x3; GCS 15 ED clinician contacted Neurosurgery at [facility] who said no intervention necessary Neurology -no further work up Hold aspirin head zeyad removed 05/14 abdominal pain. resolved KUB showing possible ileus, large stool burden - now with diarrhea diarrhea stool studies negative Acute on chronic anemia of chronic disease H&H 6.0/17.5 at time presentation, reduced from 9.9/29.8 on 04/09/2024 no active bleeding Received 2 units PRBCs in the ED. H/H trended down 05/17, U rbc ordered. repeat H/H stable. LDH slightly high, but bili normal and retic count low arguing against hemolysis CT abdomen pending to eval for bleeding hematology following follow CBC chronic leukocytosis/thrombocytopenia most lab values, unable to perform test due to platelet clumping - draw with citrate tube seen by hematology - HIV, hepatitis panel negative further work up in progress Question of community-acquired pneumonia on admission CXR showed probable right lower lobe pneumonia Pt not hypoxic, not requiring supplemental O2 completed course of abx RPP negative ESRD on HD M/W/F Nephrology following hemodialysis catheter replaced by IR 05/09 due to poor function Follow BMP Seizure disorder Continue levetiracetam, valproate, and phenytoin HTN Continue and losartan Mood disorder Continue sertraline, lorazepam HLD continue statin requires ongoing inpatient stay for wound care/pain management, thrombocytopneia/anemia dispo: STR, bed available monday if medically ready Quality Stroke Does the patient have a stroke diagnosis?: No VTE Prior VTE?: No VTE Risk Level:: Medical - moderate - high VTE Device Contraindication: N/A - Device Ordered VTE Drug Contraindication: Treatment Not Indicated
--- NOTE | 2024-05-18 13:37 | PM.HEMONCPN ---
Medical Summary - Medical Summary Date of Service: 05/18/24 Primary Care Provider: Lucrecia Teixeira MD Medical Summary: DIAGNOSIS: 1. ANEMIA. 2. THROMBOCYTOPENIA. Support Technician Utilized?: No - Patient Refused Support Technician:: Family Member Interval History Interval history: Lori Reid is a 68 year old lady, admitted to the hospital on 05/04, with a PMH significant for?ESRD on HD M/W/F, HFpEF,aeizure disorder, insulin-dependent type 2 diabetes, hx of osteomyelitis s/p left 5th toe amp on 03/28/2024, anemia of chronic disease requiring frequent transfusions, asthma, HTN, and GERD who presents to the ED after fall at home earlier this morning as pt was ambulating to the bathroom. Pt uses walker at home. Reports feeling ?shaky? and legs gave out while in the living room. Pt fell backwards, striking her head on a side table and also landing on her back and right hip. Pt lives with family and daughter primarily takes care of her. Pt did not want to wake daughter to help to the bathroom. Pt denies LOC, lightheadedness, or dizziness. Small initial headache that soon resolved. Pt with hx falls, reports last fell 3 weeks ago. Pt is supposed to have VNA services twice a week especially with help for wound care, but pt reports no one has stopped by for the past 2 weeks. Daughter has been taking care of and re-dressing wounds. Pt reports has areas of bruising on torso and lower extremities secondary to falls. Chronic back and lower extremity musculoskeletal pain around baseline. Currently pt denies lightheadedness, dizziness. No headache or acute vision changes. Denies shortness or breath or difficulty breathing. No cough. Denies chest pain/pressure, palpitations. CTA of head showed small subdural hematoma. Patient's GCS 15. ED clinician reached out to [facility] neurosurgery who recommended repeat CT in 6 hours time and if stable no further intervention required at this time. Repeat CT showed tiny stable subdural hematoma. GCS continued to be 15. In the ED pt with low-grade fever of 100.7, tachycardia up to 104, tachypnea up to 26, and soft BP as low as 99/57. Labs were significant for chronic leukocytosis slightly above baseline at 15.5, H&H 6.0/17.5, creatinine 5.48, initial lactic acid 2.2 with repeat 1.6, albumin 2.8. No significant electrolyte abnormalities. CTA of head showed small focal hyperdense parafalcine subdural hematoma up to 4 mm in thickness without mass effect, midline shift, or hydrocephalus. Repeat CT 6 hours with stable subdural hematoma. CT of cervical spine negative for acute findings. CXR showed probable right lower lobe pneumonia. EKG demonstrated normal sinus rhythm without evidence of significant ST elevations or depressions. Pt was treated with acetaminophen, morphine IVF, vancomycin and ceftriaxone. Pt was also transfused two units PBRCs. Pt was admitted for treatment further evaluation of multiple issues, including subdural hematoma s/p fall at home, and generalized weakness with fall at home in the setting of acute on chronic anemia, cellulitis with sepsis secondary to chronic diabetic foot ulcer, and community-acquired pneumonia. Medical History:) ESRD (end stage renal disease) Generalized seizure Acute kidney injury CKD (chronic kidney disease) stage 3, GFR 30-59 ml/min CHF (congestive heart failure) Anemia Brain tumor (benign) Lower extremity edema Pneumonia Asthma Pulmonary nodule HLD (hyperlipidemia) Seizure Acute hypoxemic respiratory failure due to COVID-19 COVID-19 Kidney stone Depression Gastritis Diabetes Review of Systems Review of Systems: Negative except for that which is stated in the HPI. Review of Systems - ENT Reports other - Cardiovascular Reports shortness of breath - Respiratory Reports dyspnea - Gastrointestinal Reports abdominal pain - Neurologic Reports system reviewed and no additional complaints, except as documented [facility] Medical History: Medical History (Last Reviewed 05/09/24 @ 14:18 by Odalis Mensah RN) Acute hypoxemic respiratory failure due to COVID-19 Acute kidney injury Anemia Asthma Brain tumor (benign) CHF (congestive heart failure) CKD (chronic kidney disease) stage 3, GFR 30-59 ml/min COVID-19 Depression Diabetes Eschar of heel ESRD (end stage renal disease) Gastritis Generalized seizure HLD (hyperlipidemia) Kidney stone Lower extremity edema Pneumonia Pulmonary nodule Seizure Functional capacity: bed bound Family History: Family History (Last Reviewed 05/08/24 @ 14:43 by Corinne Donato MD) Father CAD (coronary artery disease) Brother Lung cancer Sister Kidney stone Family history: reviewed and not pertinent Surgical History: Surgical History (Last Reviewed 05/09/24 @ 14:18 by Odalis Mensah RN) H/O cystoscopy H/O hernia repair H/O lithotripsy H/O ureteroscopy History of cholecystectomy 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 Onset Date: 03/28/24 S/P ureteral stent placement Social History: Social History (Last Reviewed 05/08/24 @ 14:43 by Corinne Donato MD) Living Situation History: Household Members: Children Household Members Other:: daughter Housing: House Are you a primary home care aide to a significant other at home: No Do you presently have visiting nurse or other home services: Yes Do you presently have visiting nurse or other home services comment: daughter is molecular biologist, vna 2x week. Tobacco History: Patient Tobacco Use Status: Never used Tobacco e-Cigarette/Vaping Use: Never Used Advance Directives: Advance Directives Date on File: 12/20/21 Occupation Assessmet: service: No Current occupational status: unemployed Home Medications and Allergies Current Medications: Current Medications Acetaminophen (Acetaminophen 325 Mg Tablet) 650 mg PO Q6H PRN PRN Reason: Pain, Mild 1-3,fever,headache Last Admin: 05/17/24 20:13 Dose: 650 mg Alteplase, Recombinant (Alteplase Cath Clear 2 Mg/2 Ml Vial) 2 mg INTRACATH ONCE PRN PRN Reason: dialysis Atorvastatin Calcium (Atorvastatin Calcium 80 Mg Tablet) 80 mg PO DAILY [facility] Last Admin: 05/18/24 09:46 Dose: 80 mg Calcium Carbonate (Calcium Carbonate 750 Mg Tab.Chew) 750 mg PO Q4H PRN PRN Reason: Heartburn Collagenase (Collagenase Clostridium Hist. 30 Gm Tube) 1 appl TOPICAL DAILY [facility]; Protocol Last Admin: 05/18/24 09:47 Dose: 1 appl Dextrose (Dextrose 50 % 25 Gm/50 Ml Syringe) 25 gm IVPUSH Q15M PRN; Protocol PRN Reason: per Hypoglycemia Standing Ord. Docusate Sodium (Docusate Sodium 100 Mg Capsule) 100 mg PO BID [facility] Last Admin: 05/18/24 09:48 Dose: Not Given Ferrous Sulfate (Ferrous Sulfate 324 Mg Tablet.) 324 mg PO DAILY [facility] Last Admin: 05/18/24 09:46 Dose: 324 mg Folic Acid (Folic Acid 1 Mg Tablet) 1 mg PO DAILY [facility] Last Admin: 05/18/24 09:46 Dose: 1 mg Furosemide (Furosemide 40 Mg Tablet) 80 mg PO BID [facility]; Protocol Last Admin: 05/18/24 09:44 Dose: 80 mg Gabapentin (Gabapentin 100 Mg Capsule) 200 mg PO MOWEFR@1800 [facility] Last Admin: 05/17/24 17:19 Dose: 200 mg Gabapentin (Gabapentin 100 Mg Capsule) 100 mg PO DAILY [facility] Last Admin: 05/18/24 09:46 Dose: 100 mg Glucose (Glucose Gel 15 Gm Gel..Gram.) 15 gm PO Q15M PRN; Protocol PRN Reason: per Hypoglycemia Standing Ord. Last Admin: 05/18/24 06:56 Dose: 15 gm Vancomycin HCl 500 mg/ Sodium (Chloride) 110 mls @ 110 mls/hr IV ONCE ONE Stop: 05/16/24 15:44 Insulin Glargine (Insulin Glargine,Hum.Rec.Anlog 100 Unit/Ml 10 Ml Vial) 10 unit SUBCUT BEDTIME [facility] Insulin Human Lispro (Insulin Lispro 100 Unit/Ml 3 Ml Vial) 0 unit SUBCUT QIDACHS [facility]; Protocol Last Admin: 05/18/24 11:33 Dose: Not Given Levetiracetam (Levetiracetam 500 Mg Tablet) 500 mg PO MOWEFR@1800 [facility] Last Admin: 05/17/24 17:19 Dose: 500 mg Lorazepam (Lorazepam 0.5 Mg Tablet) 0.5 mg PO Q8H PRN PRN Reason: anxiety Last Admin: 05/17/24 20:13 Dose: 0.5 mg Magnesium Hydroxide (Milk Of Magnesia 30 Ml Oral.Susp) 30 ml PO DAILY PRN PRN Reason: Constipation Melatonin (Melatonin 3 Mg Tablet) 6 mg PO BEDTIME PRN PRN Reason: Insomnia Last Admin: 05/16/24 23:14 Dose: 6 mg Naloxone HCl (Naloxone Hcl 0.4 Mg/Ml Vial) 0.04 mg IVPUSH Q5M PRN PRN Reason: Excessive sedation or RR < 8 Naloxone HCl (Naloxone Hcl 0.4 Mg/Ml Vial) 0.04 mg IVPUSH Q5M PRN PRN Reason: Excessive sedation or RR < 8 Nystatin (Nystatin Powder 15 Gm Bottle) 1 appl TOPICAL TID [facility]; Protocol Last Admin: 05/18/24 09:47 Dose: 1 appl Omeprazole (Omeprazole 40 Mg Capsule.Dr) 40 mg PO BID@0630,1630 [facility] Last Admin: 05/18/24 09:45 Dose: 40 mg Oxycodone HCl (Oxycodone Hcl Immed Release 5 Mg Tablet) 2.5 mg PO Q6H PRN PRN Reason: Pain, Moderate(Pain Scale 4-6) Last Admin: 05/18/24 09:59 Dose: 2.5 mg Pharmacy Consult (Consult Rx Vancomycin Dosing) 1 each MISCELLANE DAILY PRN PRN Reason: Consult order Phenytoin Sodium (Phenytoin Sodium Extended 100 Mg Capsule) 100 mg PO TID [facility] Last Admin: 05/18/24 09:45 Dose: 100 mg Sertraline HCl (Sertraline Hcl 100 Mg Tablet) 100 mg PO DAILY [facility] Last Admin: 05/18/24 09:45 Dose: 100 mg Sodium Chloride (0.9 % Sodium Chloride Flush 3 Ml Syringe) 3 ml IVFLUSH QSHIFT [facility] Last Admin: 05/18/24 09:47 Dose: 3 ml Trazodone HCl (Trazodone Hcl 100 Mg Tablet) 100 mg PO BEDTIME PRN PRN Reason: Sleep Last Admin: 05/10/24 21:12 Dose: 100 mg Valproic Acid (Valproic Acid 250 Mg Capsule) 1,000 mg PO BID [facility] Last Admin: 05/18/24 09:46 Dose: 1,000 mg Vitamin D (Cholecalciferol (Vitamin D3) 25 Mcg Tablet) 50 mcg PO DAILY [facility] Last Admin: 05/18/24 09:45 Dose: 50 mcg Home Medications ?Medication ?Instructions ?Recorded ?Confirmed ?Type blood sugar diagnostic [facility] 03/28/20 09/09/22 History Lite Strips) blood-glucose meter (FreeStyle 03/28/20 09/09/22 History [place] Lite kit) lancets 28 gauge (FreeStyle 03/28/20 09/09/22 History Lancets) omeprazole 40 mg capsule,delayed 40 mg PO BID@0630,1630 10/02/21 05/04/24 History release blood pressure test kit-large #1 ea 10/12/21 09/09/22 History atorvastatin 80 mg tablet 80 mg PO DAILY 12/20/21 05/04/24 History nebulizers 01/20/22 09/09/22 History amlodipine 10 mg tablet 10 mg PO DAILY 05/29/22 05/04/24 History aspirin 81 mg tablet,delayed 81 mg PO DAILY 05/29/22 05/04/24 History release lancets 33 gauge (TRUEplus Lancets) #100 ea 06/07/22 09/09/22 History trazodone 50 mg tablet 100 mg PO BEDTIME PRN Sleep 06/07/22 05/04/24 History cholecalciferol (vitamin D3) 50 50 mcg PO DAILY 11/24/22 05/04/24 History mcg (2,000 unit) tablet ferrous gluconate 324 mg (38 mg 324 mg PO DAILY 11/24/22 05/04/24 History iron) tablet acetaminophen 650 mg 650 mg PO Q8H PRN mild pain 03/22/24 05/04/24 History tablet,extended release diclofenac sodium 1 % topical gel 2 g topical BEDTIME PRN Pain 03/22/24 05/04/24 History losartan 100 mg tablet 100 mg PO BID 03/22/24 05/04/24 History valproic acid 250 mg capsule 1,000 mg PO BID 03/22/24 05/04/24 History furosemide 40 mg tablet 80 mg PO BID 05/04/24 05/04/24 History gabapentin 100 mg capsule 200 mg PO DAILY 05/04/24 05/04/24 History gabapentin 300 mg capsule 300 mg PO MOWEFR@1800 05/04/24 05/04/24 History insulin glargine 100 unit/mL (3 30 unit subcut BEDTIME 05/04/24 05/04/24 History mL) subcutaneous pen (Basaglar KwikPen U-100 Insulin) levetiracetam 500 mg tablet 500 mg PO MOWEFR@1800 05/04/24 05/04/24 History lorazepam 0.5 mg tablet 0.5 mg PO DAILY PRN anxiety 05/04/24 05/04/24 History sertraline 50 mg tablet 100 mg PO DAILY 05/04/24 05/04/24 History Allergies Allergy/AdvReac Type Severity Reaction Status Date / Time Egg Derived Allergy Unknown Verified 05/04/24 01:05 Exam Vital signs: Vital Signs Temp 97.1 F 05/18/24 10:54 Pulse 81 05/18/24 10:54 Resp 20 05/18/24 10:54 BP 149/67 H 05/18/24 10:54 Pulse Ox 99 05/18/24 10:54 O2 Del Method Room Air 05/18/24 10:54 O2 Flow Rate 6 05/09/24 16:16 Intake & Output 04/06/0705/18/24 05/18/24 18:59 06:59 18:59 Intake Total 350 / 810 460 / 810 Output Total 150 / 150 Balance 350 / 660 310 / 660 Urine Output (Average ml/kg/hr) 0.12 Intake: Intake (Blood Product) Amount 350 / 700 350 / 700 Red Blood Cells (E0336) Unit 0 / 350 350 / 350 [id number] Red Blood Cells (E0336) Unit 350 / 350 [id number] Intake, IV Amount 110 / 110 vancomycin HCL 500 mg In 0.9 % 110 / 110 Sodium Chloride 100 ml @ 110 mls/hr IV ONCE ONE Rx#: [id number] Output: Output, Urine Amount 150 / 150 Other: Number of Incontinent Voids 2 Urine Color Ronit Last Bowel Movement 05/17/24 05/17/24 Weight 105.3 kg [place] Weight in Grams 192042 Weight 105.3 kg BMI result Body Mass Index 42.5 - Constitutional Present: no acute distress, mild distress - Routine HEENT Exam Head: Present: atraumatic, normal inspection, normocephalic ENT: Present: mucous membranes moist - Routine Neck Exam Present: full ROM - Routine Respiratory Exam Present: decreased breath sounds - Routine Cardiovascular Exam Cardiovascular: Present: tachycardia - Routine Abdominal Exam Present: normal bowel sounds - Detailed Neurological Exam: Coma Scale Eye Opening: Spontaneous (4) Data - Labs CBC & Chem 7: 05/18/24 06:39 05/18/24 06:39 Labs: Laboratory Last Values WBC 12.8 X10*3/uL (4.8-10.8) H 05/18/24 06:39 RBC 2.55 X10*6/uL (4.20-5.50) L D 05/18/24 06:39 Hgb 7.5 g/dl (12.0-16.0) L D 05/18/24 06:39 Hct 22.3 % (37.0-47.0) L D 05/18/24 06:39 MCV 87.5 fL (80.0-98.0) 05/18/24 06:39 MCH 29.4 pg (27.0-33.0) 05/18/24 06:39 MCHC 33.6 g/dl (31.0-35.0) 05/18/24 06:39 RDW 19.4 % (11.0-16.0) H 05/18/24 06:39 Plt Count TNP 05/18/24 06:39 MPV TNP 05/18/24 06:39 Immature Gran % (Auto) Cancelled 05/11/24 06:22 Neut % (Auto) Cancelled 05/11/24 06:22 Lymph % (Auto) Cancelled 05/11/24 06:22 Placer % (Auto) Cancelled 05/11/24 06:22 Eos % (Auto) Cancelled 05/11/24 06:22 Baso % (Auto) Cancelled 05/11/24 06:22 Lymph # (Auto) Cancelled 05/11/24 06:22 Placer # (Auto) Cancelled 05/11/24 06:22 Eos # (Auto) Cancelled 05/11/24 06:22 Baso # (Auto) Cancelled 05/11/24 06:22 Abs Immat Gran (auto) Cancelled 05/11/24 06:22 Absolute Neuts (auto) Cancelled 05/11/24 06:22 Absolute Nucleated RBC 0.000 X10*3/uL (0.0-0.012) 05/18/24 06:39 Nucleated RBC % (auto) 0.0 /100WBC (0.0-0.2) 05/18/24 06:39 Neutrophils % (Manual) 79 % (45-73) H 05/17/24 05:43 Band Neutrophils % 6 % (3-5) H 05/17/24 05:43 Lymphocytes % (Manual) 7 % (20-40) L 05/17/24 05:43 Monocytes % (Manual) 4 % (2-11) 05/17/24 05:43 Eosinophils % (Manual) 3 % (0-4) 05/17/24 05:43 Basophils % (Manual) 2 % (0-2) 05/11/24 06:22 Metamyelocytes % 1 % 05/17/24 05:43 Myelocytes % 2 % 05/11/24 06:22 Abs Neuts (Manual) 9.8 X10*3/uL (2.0-8.3) H 05/17/24 05:43 Lymphocytes # (Manual) 0.8 X10*3/uL (1.2-4.9) L 05/17/24 05:43 Monocytes # (Manual) 0.5 X10*3/uL (0.1-1.2) 05/17/24 05:43 Eosinophils # (Manual) 0.3 X10*3/uL (0.0-0.4) 05/17/24 05:43 Basophils # (Manual) 0.3 X10*3/uL (0.0-0.2) H 05/11/24 06:22 Metamyelocytes # 0.1 X10*3/uL 05/17/24 05:43 Myelocytes # 0.3 X10*/uL 05/11/24 06:22 Platelet Estimate TN 05/17/24 05:43 Plt Count ,Citrate 183 X10*3/uL (150-310) D 05/17/24 09:57 Plt Morphology Comment [facility] 05/17/24 05:43 RBC Morphology NOTED 05/17/24 05:43 Hypochromasia 2+ (15-30) /OIF 05/17/24 05:43 Ovalocytes 1+ (5-14) /OIF 05/17/24 05:43 Smear Tech's Comments VERIFIED 05/09/24 08:34 ESR > 140 MM/HR (0-20) H 05/05/24 10:37 Absolute Retic 0.022 X10*6/uL (0.026-0.095) L 05/18/24 06:39 Percent Retic 0.8 % (0.5-1.8) 05/18/24 06:39 Immature Retic Fraction 18.8 % (3.0-15.9) H 05/18/24 06:39 Retic Hgb Equivalent 32.7 pg (30.0-35.0) 05/18/24 06:39 PT 12.4 SEC (10.9-12.4) 05/09/24 08:34 INR 1.1 (0.9-1.1) 05/09/24 08:34 VBG pH 7.53 (7.32-7.43) H 05/14/24 16:38 VBG pCO2 26 mmHg 05/14/24 16:38 VBG pO2 100 mmHg 05/14/24 16:38 VBG HCO3 22 mmol/L (22-26) 05/14/24 16:38 VBG O2 Saturation 100.0 % 05/14/24 16:38 VBG Base Excess 1.0 mmol/L 05/14/24 16:38 Sodium 140 mmol/L (135-145) 05/18/24 06:39 Potassium 3.0 mmol/L (3.3-5.1) L 05/18/24 06:39 Chloride 103 mmol/L (96-108) 05/18/24 06:39 Carbon Dioxide 26 mmol/L (22-29) 05/18/24 06:39 Anion Gap 14 (12-20) 05/18/24 06:39 BUN 27 mg/dL (9-16) H 05/18/24 06:39 Creatinine 3.17 mg/dL (0.5-1.4) H 05/18/24 06:39 Estim Creat Clear Calc 19.6 05/18/24 06:39 Estimated GFR 15 05/18/24 06:39 POC Glucose 115 mg/dL (60-115) 05/18/24 10:49 Random Glucose 45 mg/dL (60-115) L* 05/18/24 06:39 Estimat Average Glucose 134 mg/dL 05/05/24 01:41 Hemoglobin A1c % 6.3 % (<6.0) H 05/05/24 01:41 Lactic Acid 1.2 mmol/L (0.5-2.0) 05/08/24 06:21 Lactic Acid F/U @ 2Hr 1.6 mmol/L (0.5-2.0) 05/04/24 11:09 Calcium 7.9 mg/dL (8.4-10.2) L 05/18/24 06:39 Phosphorus 4.9 mg/dL (2.7-4.5) H 05/09/24 08:34 Magnesium 1.9 mg/dL (1.6-2.6) 05/11/24 06:22 Iron 64 mcg/dL (30-160) 05/17/24 05:43 TIBC 112 mcg/dL (228-428) L 05/17/24 05:43 % Saturation 57 % (15-50) H 05/17/24 05:43 Unsat Iron Binding 48 ug/dL 05/17/24 05:43 Ferritin 1520 ng/mL (10-250) H 05/17/24 05:43 Total Bilirubin 0.1 mg/dL (0.0-1.0) 05/17/24 05:43 AST 20 U/L (5-31) 05/17/24 05:43 ALT < 6 U/L (0-31) 05/17/24 05:43 Alkaline Phosphatase 101 U/L (39-117) 05/17/24 05:43 Ammonia 43 umol/L (13-55) 05/16/24 09:34 Lactate Dehydrogenase 256 U/L (122-220) H 05/17/24 05:43 C-Reactive Protein 40.77 mg/dL (< or = 0.50) H 05/08/24 06:21 Total Protein 5.5 g/dL (6.5-8.0) L 05/17/24 05:43 Albumin 2.1 g/dL (3.5-5.0) L 05/17/24 05:43 Vitamin B12 695 pg/mL (200-900) 05/06/24 08:34 Folate 11.8 ng/mL (> or = 4.0) 05/06/24 08:34 Urine Color Yellow 05/15/24 10:24 Urine Appearance Hazy 05/15/24 10:24 Urine pH 6.0 (5.0-9.0) 05/15/24 10:24 Ur Specific [place] 1.015 (1.005-1.025) 05/15/24 10:24 Urine Protein 300 (3+) mg/dL (Neg-Trace) H 05/15/24 10:24 Urine Glucose (UA) Negative mg/dL (Negative) 05/15/24 10:24 Urine Ketones Negative mg/dL (Negative) 05/15/24 10:24 Urine Blood Small (1+) (Negative) H 05/15/24 10:24 Urine Nitrite Negative (Negative) 05/15/24 10:24 Ur Leukocyte Esterase Moderate (2+) (Negative) H 05/15/24 10:24 Urine RBC 6-10 /HPF (0-2) H 05/15/24 10:24 Urine WBC 11-20 /HPF (0-5) 05/15/24 10:24 Ur Squamous Epith Cells 6-10 /HPF (0-2) 05/15/24 10:24 Urine Bacteria Trace (None Seen) 05/15/24 10:24 Hyaline Casts 0-2 /LPF (0-2) 05/15/24 10:24 Urine Yeast Present 05/15/24 10:24 Stool Occult Blood NEGATIVE (NEGATIVE) 05/07/24 01:00 Stl C. cayetanensis PCR Not Detected (Not Detect.) 05/16/24 14:30 Stool Rotavirus A PCR Not Detected (Not Detect.) 05/16/24 14:30 Stl Adenov F 40/41 PCR Not Detected (Not Detect.) 05/16/24 14:30 Stool Astrovirus (PCR) Not Detected (Not Detect.) 05/16/24 14:30 Stool Campylobacter PCR Not Detected (Not Detect.) 05/16/24 14:30 Stool Cryptosporidium PCR Not Detected (Not Detect.) 05/16/24 14:30 Stl Sh Tox Pr E STEC PCR Not Detected (Not Detect.) 05/16/24 14: Stool E coli O157 PCR Not applicable (Not Detect.) 05/16/24 14:30 Stl Enterotoxigenic E PCR Not Detected (Not Detect.) 05/16/24 14:30 Stool EPEC (PCR) Not Detected (Not Detect.) 05/16/24 14:30 Stool EAEC (PCR) Not Detected (Not Detect.) 05/16/24 14:30 Stl E. histolytica PCR Not Detected (Not Detect.) 05/16/24 14:30 Stool Giardia Lamblia PCR Not Detected (Not Detect.) 05/16/24 14:30 Stl P. shigelloides PCR Not Detected (Not Detect.) 05/16/24 14:30 Stool Salmonella PCR Not Detected (Not Detect.) 05/16/24 14:30 Stool Sapovirus (PCR) Not Detected (Not Detect.) 05/16/24 14:30 Stl Shigella/EIEC PCR Not Detected (Not Detect.) 05/16/24 14:30 St Y.enterocolitica PCR Not Detected (Not Detect.) 05/16/24 14:30 Stool Vibrio (PCR) Not Detected (Not Detect.) 05/16/24 14:30 Stl Vibrio cholerae PCR Not Detected (Not Detect.) 05/16/24 14:30 Stl Norovirus GI/GII PCR Not Detected (Not Detect.) 05/16/24 14:30 Vancomycin Trough 12.3 mcg/mL (10.0-20.0) 05/10/24 13:26 Random Vancomycin 13.0 mcg/mL (15-20) L 05/17/24 18:05 Phenytoin 2.5 ug/mL (10.0-20.0) L* 05/08/24 06:21 Valproic Acid 28.1 mcg/mL (50.0-100.0) L 05/08/24 06:21 Levetiracetam 7.9 mcg/mL (6.0-46.0) 05/08/24 06:22 Respiratory Panel Dumont See Note 05/16/24 08:30 Adenovirus (Rapid PCR) Not Detected (Not Detect.) 05/16/24 08:30 B.pert (TEM-PCR) Not Detected (Not Detect.) 05/16/24 08:30 B.parapertussis DNA PCR Not Detected (Not Detect.) 05/16/24 08:30 C. pneumoniae DNA (PCR) Not Detected (Not Detect.) 05/16/24 08:30 C. difficile Tox B Gene NEGATIVE (Negative) 05/16/24 14:30 Coronavirus OC43 (PCR) Not Detected (Not Detect.) 05/16/24 08:30 Coronavirus HKU1 (PCR) Not Detected (Not Detect.) 05/16/24 08:30 Coronavirus 229E (PCR) Not Detected (Not Detect.) 05/16/24 08:30 Coronavirus NL63 (PCR) Not Detected (Not Detect.) 05/16/24 08:30 Hep Bs Antigen Negative (Negative) 05/17/24 05:43 Hep Bs Antibody NONREACTIVE (Nonreactive) 05/17/24 05:43 Hep B Core Total Ab Nonreactive (Nonreactive) 05/17/24 05:43 Hepatitis C Ab (EIA) Nonreactive (Nonreactive) 05/17/24 05:43 HIV 1&2 Ab/P24 Ag 4thGn Nonreactive (Nonreactive) 05/17/24 05:43 Human Metapneumovir PCR Not Detected (Not Detect.) 05/16/24 08:30 Influenza A (RT-PCR) Not Detected (Not Detect.) 05/16/24 08:30 Influenza A (H1) PCR Not Detected (Not Detect.) 05/16/24 08:30 Influ A (H1/09) PCR Not Detected (Not Detect.) 05/16/24 08:30 Influenza A (H3) PCR Not Detected (Not Detect.) 05/16/24 08:30 Influenza B (RT-PCR) Not Detected (Not Detect.) 05/16/24 08:30 M. pneumoniae (PCR) Not Detected (Not Detect.) 05/16/24 08:30 Parainfluenza 1 (PCR) Not Detected (Not Detect.) 05/16/24 08:30 Parainfluenza 2 (PCR) Not Detected (Not Detect.) 05/16/24 08:30 Parainfluenza 3 (PCR) Not Detected (Not Detect.) 05/16/24 08:30 Parainfluenza 4 (PCR) Not Detected (Not Detect.) 05/16/24 08:30 RSV (PCR) Not Detected (Not Detect.) 05/16/24 08:30 Entero/Rhino (PCR) Not Detected (Not Detect.) 05/16/24 08:30 SARS-CoV-2 RNA (RT-PCR) Not Detected (Not Detect.) 05/16/24 08:30 Blood Type O Positive 05/17/24 09:57 Antibody Screen NEGATIVE 05/17/24 09:57 Crossmatch See Detail 05/17/24 09:57 - Imaging Radiologist's impression: ITS Impressions Catheter Change 05/09/24 12:00 IMPRESSION: Exchange of a tunneled hemodialysis catheter in the right internal jugular vein. PLAN: -The catheter may be used immediately. Electronically signed by: Jose M Dumont MD 05/09/2024 01:54 PM EDT RP Chest X-Ray 05/14/24 16:25 IMPRESSION: Mild interstitial lung edema versus acute small airway inflammatory process. Electronically signed by: Pete Wright MD 05/15/2024 07:00 AM EDT RP Assessment and Plan Patient Active problem list reviewed?: Yes (1) Thrombocytopenia Status: Acute Assessment and plan: 68-year-old lady with history of end-stage renal disease. Currently on dialysis. 1. ESRD: usu MWF at HDU 2. 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 Wounds 5. Unsteady gait and ques safety with going home 6. Hemoaccess: s/p Pcath replaced and still poor flows--will try cathflow today REC: cont HD mwf; epo/fe; abx as noted; d/c planning--ques go to rehab instead of hoemat time of d/c--PT and daughte to talk to team THROMBOCYTOPENIA: DIFFERENTIAL DIAGNOSIS: 1. PLATELETS CLUMPING: Patient has had a history of clumped platelets. That causes the platelets to be falsely low. Has had platelets drawn in the citrate tube, to eliminate the effect of clumping. 2. UNDERLYING MYELO INFILTRATIVE DISORDER: AN MPN: CML is in the differential. She has had a chronic leukocytosis, consistently since October of last year. She has a left shift with metamyelocytes, myelocytes, eos and basos, on smear. 3. INFECTION RELATED: Any infectious process i.e. HIV, hepatitis B or C can cause it. 4. DIC: . 5. ITP: PLAN: I will proceed with checking her platelet count in a blue top tube, to eliminate effect of clumping. Of the platelets stay low, will then proceed with further evaluation. Check HIV and hepatitis profiles. Check peripheral blood for flow cytometry, and cytogenetics. Check DIC screen. Check for hemolysis. For now will continue to monitor the platelets carefully. If they decline, - Time Spent With Patient Time Spent with Patient (in minutes): 15
[2024-05-18] MEDS: LORazepam 0.5 MG TABLET PO (15:16)
[2024-05-18 16:00] VITALS: BP 139/70; PULSE 88; RESP 20; TEMP 36.4; O2SAT 96
[2024-05-18 16:52] LABS: Glucose, Whole Blood 91 mg/dL (60-115)
[2024-05-18 20:00] VITALS: BP 147/64; PULSE 89; RESP 16; TEMP 36.6; O2SAT 97
[2024-05-18] MEDS: Acetaminophen 325 MG TABLET 650 MG PO (20:39)
[2024-05-18] MEDS: Melatonin 3 MG TABLET 6 MG PO (20:40)
[2024-05-18 20:59] LABS: Glucose, Whole Blood 131 mg/dL (60-115)
[2024-05-18] MEDS: Insulin Glargine,Hum.rec.anlog 100 UNIT/ML 10 ML VIAL 10 UNIT SUBCUT (21:28)
[2024-05-19] VITALS (7 sets, daily range): BP systolic 114–159; BP diastolic 53–87; PULSE 82–90; RESP 16–20; TEMP 36.3–36.8; O2SAT 94–99
[2024-05-19] MEDS: oxyCODONE HCl Immed Release 5 MG TABLET 2.5 MG PO ×3 (00:07→17:45)
[2024-05-19] MEDS: LORazepam 0.5 MG TABLET PO ×2 (00:07→17:45)
[2024-05-19 05:45] LABS: CDiff Gene PCR NEGATIVE (Negative)
[2024-05-19] MEDS: Omeprazole 40 MG CAPSULE.DR PO ×2 (06:33→17:11)
[2024-05-19 07:12] LABS: Glucose, Whole Blood 100 mg/dL (60-115)
[2024-05-19 07:37] LABS: Creatinine Clr Calc Pharmacy 14.5; Estimated Glomerular Filt Rate 10
[2024-05-19 08:25] LABS: Anion Gap 17 (12-20); Blood Urea Nitrogen 37 mg/dL (9-16); Calcium 8.1 mg/dL (8.4-10.2); Carbon Dioxide 22 mmol/L (22-29); Chloride 104 mmol/L (96-108); Glucose Random 99 mg/dL (60-115); Sodium 140 mmol/L (135-145)
[2024-05-19] MEDS: Phenytoin Sodium Extended 100 MG CAPSULE PO ×3 (09:08→21:33)
[2024-05-19] MEDS: Furosemide 40 MG TABLET 80 MG PO ×2 (09:08→21:33)
[2024-05-19] MEDS: Valproic Acid 250 MG CAPSULE 1000 MG PO ×2 (09:08→21:33)
[2024-05-19] MEDS: Atorvastatin Calcium 80 MG TABLET PO (09:08)
[2024-05-19] MEDS: Cholecalciferol (Vitamin D3) 25 MCG TABLET 50 MCG PO (09:09)
[2024-05-19] MEDS: Ferrous Sulfate 324 MG TABLET.DR PO (09:10)
[2024-05-19] MEDS: Folic Acid 1 MG TABLET PO (09:10)
[2024-05-19] MEDS: Gabapentin 100 MG CAPSULE PO (09:10)
[2024-05-19] MEDS: Sertraline HCL 100 MG TABLET PO (09:18)
[2024-05-19] MEDS: Collagenase Clostridium Hist. 30 GM TUBE 1 APPL TOPICAL (09:18)
[2024-05-19] MEDS: 0.9 % Sodium Chloride Flush 3 ML SYRINGE IVFLUSH ×2 (09:19→17:19)
[2024-05-19 10:13] LABS: PLT CLUMP 1
[2024-05-19 10:17] LABS: Hematocrit 24.7 % (37.0-47.0); Hemoglobin 8.4 g/dl (12.0-16.0); Mean Corpuscular Hemoglobin 29.8 pg (27.0-33.0); Mean Corpuscular Volume 87.6 fL (80.0-98.0); Red Blood Count 2.82 X10*6/uL (4.20-5.50); Red Cell Distribution Width 19.4 % (11.0-16.0)
[2024-05-19 10:18] LABS: PLT ABN DIST 1; White Blood Count 16.9 X10*3/uL (4.8-10.8)
[2024-05-19 11:00] LABS: Glucose, Whole Blood 94 mg/dL (60-115)
--- NOTE | 2024-05-19 11:59 | P.PNIM_ITS ---
Subjective Subjective Date of Service: 05/19/24 Interval History: Seen and examined this morning Follow-up for multiple skin wounds, anemia History obtained with the assistance of a air quality engineer Patient awake, alert reports ?body pain? from wounds. Frequently calls out when she wants to be repositioned and due to pain. She denies abdominal pain, shortness of breath, cough Review of Systems Review of Systems: Yes all other systems are reviewed and are negative Constitutional Constitutional: Denies chills and Denies fever(s) Physical Exam 2 Vital Signs: Vital Signs: Last Vital Signs Temp 98.0 F 05/19/24 11:17 Pulse 82 05/19/24 11:17 Resp 20 05/19/24 11:17 BP 144/60 H 05/19/24 11:17 Pulse Ox 98 05/19/24 11:17 O2 Del Method Room Air 05/19/24 11:17 O2 Flow Rate 6 05/09/24 16:16 BMI result Body Mass Index 42.5 Const: General: comfortable, no acute distress, alert and awake Nutritional Appearance: obese Orientation/consciousness: patient oriented x3 Resp: Effort & Inspection: normal respiratory effort, able to speak in complete sentences, no respiratory distress and no use of accessory muscles Cardio: Rate: regular rate GI: Inspection: No distended Palpation (GI): Soft to palpation and nontender Skin: Other: multiple skin wounds - see wound care nurse for individual wounds; off loading boots b/l hip wounds covered with c/d/i dressings, recently changed right heel left foot Neuro: Other: grossly nonfocal General: patient oriented x3 and moves all extremities Extrem: Other: b/l heels in offloading boots Objective Data Active Medications Acetaminophen (Acetaminophen 325 Mg Tablet) 650 mg PO Q6H PRN PRN Reason: Pain, Mild 1-3,fever,headache Last Admin: 05/18/24 20:39 Dose: 650 mg Documented By: DOUGLAS Alteplase, Recombinant (Alteplase Cath Clear 2 Mg/2 Ml Vial) 2 mg INTRACATH ONCE PRN PRN Reason: dialysis Atorvastatin Calcium (Atorvastatin Calcium 80 Mg Tablet) 80 mg PO DAILY KATHERINE Last Admin: 05/19/24 09:08 Dose: 80 mg Documented By: NIGHAT Calcium Carbonate (Calcium Carbonate 750 Mg Tab.Chew) 750 mg PO Q4H PRN PRN Reason: Heartburn Collagenase (Collagenase Clostridium Hist. 30 Gm Tube) 1 appl TOPICAL DAILY [facility]; Protocol Last Admin: 05/19/24 09:18 Dose: 1 appl Documented By: NIGHAT Dextrose (Dextrose 50 % 25 Gm/50 Ml Syringe) 25 gm IVPUSH Q15M PRN; Protocol PRN Reason: per Hypoglycemia Standing Ord. Docusate Sodium (Docusate Sodium 100 Mg Capsule) 100 mg PO BID [facility] Last Admin: 05/19/24 09:10 Dose: Not Given Documented By: NIGHAT Non-Admin Reason: loose bm Ferrous Sulfate (Ferrous Sulfate 324 Mg Tablet.Dr) 324 mg PO DAILY [facility] Last Admin: 05/19/24 09:10 Dose: 324 mg Documented By: NIGHAT Folic Acid (Folic Acid 1 Mg Tablet) 1 mg PO DAILY [facility] Last Admin: 05/19/24 09:10 Dose: 1 mg Documented By: NIGHAT Furosemide (Furosemide 40 Mg Tablet) 80 mg PO BID [facility]; Protocol Last Admin: 05/19/24 09:08 Dose: 80 mg Documented By: NIGHAT Gabapentin (Gabapentin 100 Mg Capsule) 200 mg PO MOWEFR@1800 [facility] Last Admin: 05/17/24 17:19 Dose: 200 mg Documented By: JAROCHO Gabapentin (Gabapentin 100 Mg Capsule) 100 mg PO DAILY [facility] Last Admin: 05/19/24 09:10 Dose: 100 mg Documented By: NIGHAT Glucose (Glucose Gel 15 Gm Gel..Gram.) 15 gm PO Q15M PRN; Protocol PRN Reason: per Hypoglycemia Standing Ord. Last Admin: 05/18/24 06:56 Dose: 15 gm Documented By: DOUGLAS Comments: poc 44 Vancomycin HCl 500 mg/ Sodium (Chloride) 110 mls @ 110 mls/hr IV ONCE ONE Stop: 05/16/24 15:44 Insulin Glargine (Insulin Glargine,Hum.Rec.Anlog 100 Unit/Ml 10 Ml Vial) 10 unit SUBCUT BEDTIME [facility] Last Admin: 05/18/24 21:28 Dose: 10 unit Documented By: DOUGLAS Insulin Human Lispro (Insulin Lispro 100 Unit/Ml 3 Ml Vial) 0 unit SUBCUT QIDACHS [facility]; Protocol Last Admin: 05/19/24 11:03 Dose: Not Given Documented By: NIGHAT Non-Admin Reason: No Insulin Coverage Levetiracetam (Levetiracetam 500 Mg Tablet) 500 mg PO MOWEFR@1800 [facility] Last Admin: 05/17/24 17:19 Dose: 500 mg Documented By: JAROCHO Lorazepam (Lorazepam 0.5 Mg Tablet) 0.5 mg PO Q8H PRN PRN Reason: anxiety Last Admin: 05/19/24 00:07 Dose: 0.5 mg Documented By: DOUGLAS Magnesium Hydroxide (Milk Of Magnesia 30 Ml Oral.Susp) 30 ml PO DAILY PRN PRN Reason: Constipation Melatonin (Melatonin 3 Mg Tablet) 6 mg PO BEDTIME PRN PRN Reason: Insomnia Last Admin: 05/18/24 20:40 Dose: 6 mg Documented By: DOUGLAS Naloxone HCl (Naloxone Hcl 0.4 Mg/Ml Vial) 0.04 mg IVPUSH Q5M PRN PRN Reason: Excessive sedation or RR < 8 Naloxone HCl (Naloxone Hcl 0.4 Mg/Ml Vial) 0.04 mg IVPUSH Q5M PRN PRN Reason: Excessive sedation or RR < 8 Nystatin (Nystatin Powder 15 Gm Bottle) 1 appl TOPICAL TID [facility]; Protocol Last Admin: 05/19/24 09:20 Dose: Not Given Documented By: NIGHAT Non-Admin Reason: called pharmacy Omeprazole (Omeprazole 40 Mg Capsule.) 40 mg PO BID@0630,2170 [facility] Last Admin: 05/19/24 06:33 Dose: 40 mg Documented By: DOUGLAS Oxycodone HCl (Oxycodone Hcl Immed Release 5 Mg Tablet) 2.5 mg PO Q6H PRN PRN Reason: Pain, Moderate(Pain Scale 4-6) Last Admin: 05/19/24 09:12 Dose: 2.5 mg Documented By: NIGHAT Pharmacy Consult (Consult Rx Vancomycin Dosing) 1 each MISCELLANE DAILY PRN PRN Reason: Consult order Phenytoin Sodium (Phenytoin Sodium Extended 100 Mg Capsule) 100 mg PO TID [facility] Last Admin: 05/19/24 09:08 Dose: 100 mg Documented By: NIGHAT Sertraline HCl (Sertraline Hcl 100 Mg Tablet) 100 mg PO DAILY [facility] Last Admin: 05/19/24 09:18 Dose: 100 mg Documented By: NIGHAT Sodium Chloride (0.9 % Sodium Chloride Flush 3 Ml Syringe) 3 ml IVFLUSH QSHIFT [facility] Last Admin: 05/19/24 09:19 Dose: 3 ml Documented By: NIGHAT Trazodone HCl (Trazodone Hcl 100 Mg Tablet) 100 mg PO BEDTIME PRN PRN Reason: Sleep Last Admin: 05/10/24 21:12 Dose: 100 mg Documented By: NAM Valproic Acid (Valproic Acid 250 Mg Capsule) 1,000 mg PO BID [facility] Last Admin: 05/19/24 09:08 Dose: 1,000 mg Documented By: NIGHAT Vitamin D (Cholecalciferol (Vitamin D3) 25 Mcg Tablet) 50 mcg PO DAILY [facility] Last Admin: 05/19/24 09:09 Dose: 50 mcg Documented By: NIGHAT Labs 05/19/24 09:28 05/19/24 07:04 Labs: Laboratory Results - last 24 hr 05/18/24 05/18/24 05/19/24 16:23 20:56 04:46 MCV MCH MCHC RDW Plt Count MPV Absolute Nucleated RBC Nucleated RBC % (auto) Anion Gap Estim Creat Clear Calc Estimated GFR POC Glucose 91 131 H Random Glucose Calcium C. difficile Tox B Gene NEGATIVE 05/19/24 05/19/24 05/19/24 06:58 07:04 09:28 MCV 87.6 MCH 29.8 MCHC 34.0 RDW 19.4 H Plt Count TNP MPV TNP Absolute Nucleated RBC 0.000 Nucleated RBC % (auto) 0.0 Anion Gap 17 Estim Creat Clear Calc 14.5 Estimated GFR 10 POC Glucose 100 Random Glucose 99 Calcium 8.1 L C. difficile Tox B Gene 05/19/24 10:54 MCV MCH MCHC RDW Plt Count MPV Absolute Nucleated RBC Nucleated RBC % (auto) Anion Gap Estim Creat Clear Calc Estimated GFR POC Glucose 94 Random Glucose Calcium C. difficile Tox B Gene Microbiology Microbiology Results: Microbiology 05/15/24 Unknown Urine Culture - Final Urine Catheterized - Straight Catheter Ira albicans Enterococcus faecium Assessment and Plan (1) Thrombocytopenia: Status: Acute (2) Eschar of heel: Status: Acute (3) ESRD (end stage renal disease) on dialysis: Status: Acute Plan This is a 68-year-old female with a PMH significant for?ESRD on HD M/W/F, HFpEF, seizure disorder, insulin-dependent type 2 diabetes, hx of osteomyelitis s/p left 5th toe amp on 03/28/2024, anemia of chronic disease requiring frequent transfusions, asthma, HTN, and GERD who presented to the ED after fall at home earlier imaging showing small subdural hematoma also found to have cellulitis with sepsis secondary to chronic diabetic foot ulcer and community-acquired pneumonia. Insulin-dependent type 2 diabetes with hypoglycemia POCs trending down, asymptomatic episode of hypoglycemia 05/18. likely due to poor po intake Lantus reduced by 50%, can up titrate prn continue Sliding-scale insulin Diabetic diet Left foot cellulitis with sepsis S/P fifth digit amputation d/t diabetic foot infection osteomyelitis on 03/28/2024. initially met sepsis criteria with tachycardia, tachypnea and leukocytosis above baseline; lactic acid 2.2 repeat 1.5 seen by surgery s/p debridement 05/09 continue vancomycin seen by ID, rec 6 weeks IV abx upon discharge blood cultures negative toxic metabolic encephalopathy Sedating meds including Seroquel, trazodone, gabapentin placed on hold - resumed lower dose of gabapentin due to complaints of pain patient awake, alert possible UTI Urine culture growing VRE -discussed with ID, likely colonization, no need to treat,will stop Zyvox Multiple skin wounds Wound care nurse following- see wound note for images/detailed plan have switched to santyl for enzymatic debridement as not much progress with wet to dry dressings surgery following - may need further debridement Subdural hematoma CT small right parafalcine subdural hematoma up to 4 mm in thickness; repeat CT 6 hours later stable S/p fall at home with head strike on table; no LOC; neuro exam intact; pt AO x3; GCS 15 ED clinician contacted Neurosurgery at [facility] who said no intervention necessary Neurology -no further work up Hold aspirin head zeyad removed 05/14 abdominal pain. resolved KUB showing possible ileus, large stool burden - now with diarrhea diarrhea stool studies negative Acute on chronic anemia of chronic disease no active bleeding noted Received 2 units PRBCs in the ED. H/H trended down 05/17, U rbc ordered. repeat H/H stable. LDH slightly high, but bili normal and retic count low arguing against hemolysis CT abdomen pending to eval for bleeding - report pending hematology following follow CBC chronic leukocytosis/thrombocytopenia most lab values, unable to perform test due to platelet clumping - draw with citrate tube seen by hematology - HIV, hepatitis panel negative further work up in progress Question of community-acquired pneumonia on admission CXR showed probable right lower lobe pneumonia Pt not hypoxic, not requiring supplemental O2 completed course of abx RPP negative ESRD on HD M/W/F Nephrology following hemodialysis catheter replaced by IR 05/09 due to poor function Follow BMP Seizure disorder Continue levetiracetam, valproate, and phenytoin HTN Continue and losartan Mood disorder Continue sertraline, lorazepam HLD continue statin requires ongoing inpatient stay for wound care/pain management, thrombocytopneia/anemia dispo: STR, bed available monday if medically ready Quality Stroke Does the patient have a stroke diagnosis?: No VTE Prior VTE?: No VTE Risk Level:: Medical - moderate - high VTE Device Contraindication: N/A - Device Ordered VTE Drug Contraindication: Treatment Not Indicated
[2024-05-19 16:23] LABS: Glucose, Whole Blood 83 mg/dL (60-115)
[2024-05-19 20:01] LABS: Glucose, Whole Blood 147 mg/dL (60-115)
--- NOTE | 2024-05-19 20:29 | PM.HEMONCPN ---
Medical Summary - Medical Summary Date of Service: 05/19/24 Primary Care Provider: Lucrecia Teixeira MD Medical Summary: DIAGNOSIS: 1. ANEMIA. 2. THROMBOCYTOPENIA. Quarter Inspector Utilized?: No - Khmer Speaking Interval History Interval history: Lori Reid is a 68 year old lady, admitted to the hospital on 05/04, with a PMH significant for?ESRD on HD M/W/F, HFpEF,aeizure disorder, insulin-dependent type 2 diabetes, hx of osteomyelitis s/p left 5th toe amp on 03/28/2024, anemia of chronic disease requiring frequent transfusions, asthma, HTN, and GERD who presents to the ED after fall at home earlier this morning as pt was ambulating to the bathroom. Pt uses walker at home. Reports feeling ?shaky? and legs gave out while in the living room. Pt fell backwards, striking her head on a side table and also landing on her back and right hip. Pt lives with family and daughter primarily takes care of her. Pt did not want to wake daughter to help to the bathroom. Pt denies LOC, lightheadedness, or dizziness. Small initial headache that soon resolved. Pt with hx falls, reports last fell 3 weeks ago. Pt is supposed to have VNA services twice a week especially with help for wound care, but pt reports no one has stopped by for the past 2 weeks. Daughter has been taking care of and re-dressing wounds. Pt reports has areas of bruising on torso and lower extremities secondary to falls. Chronic back and lower extremity musculoskeletal pain around baseline. Currently pt denies lightheadedness, dizziness. No headache or acute vision changes. Denies shortness or breath or difficulty breathing. No cough. Denies chest pain/pressure, palpitations. CTA of head showed small subdural hematoma. Patient's GCS 15. ED clinician reached out to [facility] neurosurgery who recommended repeat CT in 6 hours time and if stable no further intervention required at this time. Repeat CT showed tiny stable subdural hematoma. GCS continued to be 15. In the ED pt with low-grade fever of 100.7, tachycardia up to 104, tachypnea up to 26, and soft BP as low as 99/57. Labs were significant for chronic leukocytosis slightly above baseline at 15.5, H&H 6.0/17.5, creatinine 5.48, initial lactic acid 2.2 with repeat 1.6, albumin 2.8. No significant electrolyte abnormalities. CTA of head showed small focal hyperdense parafalcine subdural hematoma up to 4 mm in thickness without mass effect, midline shift, or hydrocephalus. Repeat CT 6 hours with stable subdural hematoma. CT of cervical spine negative for acute findings. CXR showed probable right lower lobe pneumonia. EKG demonstrated normal sinus rhythm without evidence of significant ST elevations or depressions. Pt was treated with acetaminophen, morphine IVF, vancomycin and ceftriaxone. Pt was also transfused two units PBRCs. Pt was admitted for treatment further evaluation of multiple issues, including subdural hematoma s/p fall at home, and generalized weakness with fall at home in the setting of acute on chronic anemia, cellulitis with sepsis secondary to chronic diabetic foot ulcer, and community-acquired pneumonia. Medical History:) ESRD (end stage renal disease) Generalized seizure Acute kidney injury CKD (chronic kidney disease) stage 3, GFR 30-59 ml/min CHF (congestive heart failure) Anemia Brain tumor (benign) Lower extremity edema Pneumonia Asthma Pulmonary nodule HLD (hyperlipidemia) Seizure Acute hypoxemic respiratory failure due to COVID-19 COVID-19 Kidney stone Depression Gastritis Diabetes Review of Systems Review of Systems: Negative except for that which is stated in the HPI. Review of Systems - Neurologic Reports system reviewed and no additional complaints, except as documented [facility] Medical History: Medical History (Last Reviewed 05/22/24 @ 15:29 by Shira Marquez, PT) Acute hypoxemic respiratory failure due to COVID-19 Acute kidney injury Anemia Asthma Brain tumor (benign) CHF (congestive heart failure) CKD (chronic kidney disease) stage 3, GFR 30-59 ml/min COVID-19 Depression Diabetes Eschar of heel ESRD (end stage renal disease) Gastritis Generalized seizure HLD (hyperlipidemia) Kidney stone Lower extremity edema Pneumonia Pulmonary nodule Seizure Functional capacity: bed bound Family History: Family History (Last Reviewed 05/08/24 @ 14:43 by Corinne Donato MD) Father CAD (coronary artery disease) Brother Lung cancer Sister Kidney stone Family history: reviewed and not pertinent Surgical History: Surgical History (Last Reviewed 05/22/24 @ 15:29 by Shira Marquez, KESHA) H/O cystoscopy H/O hernia repair H/O lithotripsy H/O ureteroscopy History of cholecystectomy 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 Onset Date: 03/28/24 S/P ureteral stent placement Social History: Social History (Last Reviewed 05/08/24 @ 14:43 by Corinne Donato MD) Living Situation History: Household Members: Children Household Members Other:: daughter Housing: House Are you a primary progressive care manager to a significant other at home: No Do you presently have visiting nurse or other home services: Yes Do you presently have visiting nurse or other home services comment: daughter is cotton farmer, vna 2x week. Tobacco History: Patient Tobacco Use Status: Never used Tobacco e-Cigarette/Vaping Use: Never Used Advance Directives: Advance Directives Date on File: 12/20/21 Occupation Assessmet: service: No Current occupational status: unemployed Home Medications and Allergies Current Medications: Current Medications Acetaminophen (Acetaminophen 325 Mg Tablet) 650 mg PO Q6H PRN PRN Reason: Pain, Mild 1-3,fever,headache Last Admin: 05/18/24 20:39 Dose: 650 mg Alteplase, Recombinant (Alteplase Cath Clear 2 Mg/2 Ml Vial) 2 mg INTRACATH ONCE PRN PRN Reason: dialysis Atorvastatin Calcium (Atorvastatin Calcium 80 Mg Tablet) 80 mg PO DAILY [facility] Last Admin: 05/19/24 09:08 Dose: 80 mg Calcium Carbonate (Calcium Carbonate 750 Mg Tab.Chew) 750 mg PO Q4H PRN PRN Reason: Heartburn Collagenase (Collagenase Clostridium Hist. 30 Gm Tube) 1 appl TOPICAL DAILY [facility]; Protocol Last Admin: 05/19/24 09:18 Dose: 1 appl Dextrose (Dextrose 50 % 25 Gm/50 Ml Syringe) 25 gm IVPUSH Q15M PRN; Protocol PRN Reason: per Hypoglycemia Standing Ord. Docusate Sodium (Docusate Sodium 100 Mg Capsule) 100 mg PO BID [facility] Last Admin: 05/19/24 09:10 Dose: Not Given Ferrous Sulfate (Ferrous Sulfate 324 Mg Tablet.) 324 mg PO DAILY [facility] Last Admin: 05/19/24 09:10 Dose: 324 mg Folic Acid (Folic Acid 1 Mg Tablet) 1 mg PO DAILY [facility] Last Admin: 05/19/24 09:10 Dose: 1 mg Furosemide (Furosemide 40 Mg Tablet) 80 mg PO BID [facility]; Protocol Last Admin: 05/19/24 09:08 Dose: 80 mg Gabapentin (Gabapentin 100 Mg Capsule) 200 mg PO MOWEFR@1800 [facility] Last Admin: 05/17/24 17:19 Dose: 200 mg Gabapentin (Gabapentin 100 Mg Capsule) 100 mg PO DAILY [facility] Last Admin: 05/19/24 09:10 Dose: 100 mg Glucose (Glucose Gel 15 Gm Gel..Gram.) 15 gm PO Q15M PRN; Protocol PRN Reason: per Hypoglycemia Standing Ord. Last Admin: 05/18/24 06:56 Dose: 15 gm Vancomycin HCl 500 mg/ Sodium (Chloride) 110 mls @ 110 mls/hr IV ONCE ONE Stop: 05/16/24 15:44 Insulin Glargine (Insulin Glargine,Hum.Rec.Anlog 100 Unit/Ml 10 Ml Vial) 10 unit SUBCUT BEDTIME [facility] Last Admin: 05/18/24 21:28 Dose: 10 unit Insulin Human Lispro (Insulin Lispro 100 Unit/Ml 3 Ml Vial) 0 unit SUBCUT QIDACHS [facility]; Protocol Last Admin: 05/19/24 17:21 Dose: Not Given Levetiracetam (Levetiracetam 500 Mg Tablet) 500 mg PO MOWEFR@1800 [facility] Last Admin: 05/17/24 17:19 Dose: 500 mg Lorazepam (Lorazepam 0.5 Mg Tablet) 0.5 mg PO Q8H PRN PRN Reason: anxiety Last Admin: 05/19/24 17:45 Dose: 0.5 mg Magnesium Hydroxide (Milk Of Magnesia 30 Ml Oral.Susp) 30 ml PO DAILY PRN PRN Reason: Constipation Melatonin (Melatonin 3 Mg Tablet) 6 mg PO BEDTIME PRN PRN Reason: Insomnia Last Admin: 05/18/24 20:40 Dose: 6 mg Naloxone HCl (Naloxone Hcl 0.4 Mg/Ml Vial) 0.04 mg IVPUSH Q5M PRN PRN Reason: Excessive sedation or RR < 8 Naloxone HCl (Naloxone Hcl 0.4 Mg/Ml Vial) 0.04 mg IVPUSH Q5M PRN PRN Reason: Excessive sedation or RR < 8 Nystatin (Nystatin Powder 15 Gm Bottle) 1 appl TOPICAL TID [facility]; Protocol Last Admin: 05/19/24 17:18 Dose: Not Given Omeprazole (Omeprazole 40 Mg Capsule.Dr) 40 mg PO BID@0630,1630 [facility] Last Admin: 05/19/24 17:11 Dose: 40 mg Oxycodone HCl (Oxycodone Hcl Immed Release 5 Mg Tablet) 2.5 mg PO Q6H PRN PRN Reason: Pain, Moderate(Pain Scale 4-6) Last Admin: 05/19/24 17:45 Dose: 2.5 mg Pharmacy Consult (Consult Rx Vancomycin Dosing) 1 each MISCELLANE DAILY PRN PRN Reason: Consult order Phenytoin Sodium (Phenytoin Sodium Extended 100 Mg Capsule) 100 mg PO TID [facility] Last Admin: 05/19/24 17:11 Dose: 100 mg Sertraline HCl (Sertraline Hcl 100 Mg Tablet) 100 mg PO DAILY [facility] Last Admin: 05/19/24 09:18 Dose: 100 mg Sodium Chloride (0.9 % Sodium Chloride Flush 3 Ml Syringe) 3 ml IVFLUSH QSHIFT [facility] Last Admin: 05/19/24 17:19 Dose: 3 ml Trazodone HCl (Trazodone Hcl 100 Mg Tablet) 100 mg PO BEDTIME PRN PRN Reason: Sleep Last Admin: 05/10/24 21:12 Dose: 100 mg Valproic Acid (Valproic Acid 250 Mg Capsule) 1,000 mg PO BID [facility] Last Admin: 05/19/24 09:08 Dose: 1,000 mg Vitamin D (Cholecalciferol (Vitamin D3) 25 Mcg Tablet) 50 mcg PO DAILY [facility] Last Admin: 05/19/24 09:09 Dose: 50 mcg Home Medications ?Medication ?Instructions ?Recorded ?Confirmed ?Type [facility] sugar [facility] 03/28/20 09/09/22 History Lite Strips) blood-glucose meter (FreeStyle 03/28/20 09/09/22 History [place] Lite kit) lancets 28 gauge (FreeStyle 03/28/20 09/09/22 History Lancets) omeprazole 40 mg capsule,delayed 40 mg PO BID@0630,1630 10/02/21 05/04/24 History release blood pressure test kit-large #1 ea 10/12/21 09/09/22 History atorvastatin 80 mg tablet 80 mg PO DAILY 12/20/21 05/04/24 History nebulizers 01/20/22 09/09/22 History amlodipine 10 mg tablet 10 mg PO DAILY 05/29/22 05/04/24 History lancets 33 gauge (TRUEplus Lancets) #100 ea 06/07/22 09/09/22 History trazodone 50 mg tablet 100 mg PO BEDTIME PRN Sleep 06/07/22 05/04/24 History cholecalciferol (vitamin D3) 50 50 mcg PO DAILY 11/24/22 05/04/24 History mcg (2,000 unit) tablet ferrous gluconate 324 mg (38 mg 324 mg PO DAILY 11/24/22 05/04/24 History iron) tablet acetaminophen 650 mg 650 mg PO Q8H PRN mild pain 03/22/24 05/04/24 History tablet,extended release diclofenac sodium 1 % topical gel 2 g topical BEDTIME PRN Pain 03/22/24 05/04/24 History losartan 100 mg tablet 100 mg PO BID 03/22/24 05/04/24 History valproic acid 250 mg capsule 1,000 mg PO BID 03/22/24 05/04/24 History furosemide 40 mg tablet 80 mg PO BID 05/04/24 05/04/24 History gabapentin 100 mg capsule 200 mg PO DAILY 05/04/24 05/04/24 History gabapentin 300 mg capsule 300 mg PO MOWEFR@1800 05/04/24 05/04/24 History levetiracetam 500 mg tablet 500 mg PO MOWEFR@1800 05/04/24 05/04/24 History lorazepam 0.5 mg tablet 0.5 mg PO DAILY PRN anxiety 05/04/24 05/04/24 History sertraline 50 mg tablet 100 mg PO DAILY 05/04/24 05/04/24 History Allergies Allergy/AdvReac Type Severity Reaction Status Date / Time Egg Derived Allergy Unknown Verified 05/04/24 01:05 Exam Vital signs: Vital Signs Temp 97.7 F 05/19/24 19:48 Pulse 90 05/19/24 19:48 Resp 20 05/19/24 19:48 BP 159/69 H 05/19/24 19:48 Pulse Ox 99 05/19/24 19:48 O2 Del Method Room Air 05/19/24 19:48 O2 Flow Rate 6 05/09/24 16:16 Intake & Output 05/19/24 05/19/24 05/20/24 06:59 18:59 06:59 Intake Total 500 / 500 Balance 500 / 500 Intake: Intake, Oral Amount 500 / 500 Other: Breakfast % Eaten 25% Lunch % Eaten 0% Eating (Feeding) Ability Independent Number of Incontinent Voids 2 2 Number of Unmeasured Voids 2 Urine incon. Urine Color Yellow Yellow Last Bowel Movement 05/19/24 05/19/24 Weight 105.3 kg BMI result Body Mass Index 42.5 - Constitutional Present: no acute distress, mild distress - Routine HEENT Exam Head: Present: atraumatic, normal inspection, normocephalic - Routine Neck Exam Present: full ROM - Routine Respiratory Exam Present: decreased breath sounds - Routine Cardiovascular Exam Cardiovascular: Present: tachycardia - Routine Abdominal Exam Present: normal bowel sounds - Detailed Neurological Exam: Coma Scale Eye Opening: Spontaneous (4) Data - Labs CBC & Chem 7: 05/20/24 07:36 05/22/24 06:27 - Imaging Radiologist's impression: ITS Impressions Catheter Change 05/09/24 12:00 IMPRESSION: Exchange of a tunneled hemodialysis catheter in the right internal jugular vein. PLAN: -The catheter may be used immediately. Electronically signed by: Jose M Dumont MD 05/09/2024 01:54 PM EDT RP Chest X-Ray 05/14/24 16:25 IMPRESSION: Mild interstitial lung edema versus acute small airway inflammatory process. Electronically signed by: Pete Wright MD 05/15/2024 07:00 AM EDT RP Assessment and Plan Patient Active problem list reviewed?: Yes (1) Thrombocytopenia Status: Acute Assessment and plan: 68-year-old lady with history of end-stage renal disease. Currently on dialysis. 1. ESRD: usu MWF at HDU 2. 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 Wounds 5. Unsteady gait and ques safety with going home 6. Hemoaccess: s/p Pcath replaced and still poor flows--will try cathflow today REC: cont HD mwf; epo/fe; abx as noted; d/c planning--ques go to rehab instead of hoemat time of d/c--PT and daughte to talk to team THROMBOCYTOPENIA: DIFFERENTIAL DIAGNOSIS: 1. PLATELETS CLUMPING: Patient has had a history of clumped platelets. That causes the platelets to be falsely low. Has had platelets drawn in the citrate tube, to eliminate the effect of clumping. 2. UNDERLYING MYELO INFILTRATIVE DISORDER: AN MPN: CML is in the differential. She has had a chronic leukocytosis, consistently since October of last year. She has a left shift with metamyelocytes, myelocytes, eos and basos, on smear. 3. INFECTION RELATED: Any infectious process i.e. HIV, hepatitis B or C can cause it. 4. DIC: Could be related to infection, versus malignancy. 5. ITP: Is in the differential. PLAN: I will proceed with checking her platelet count in a blue top tube, to eliminate effect of clumping. (Platelet count came up to 120.) (05/18: Platelets have normalized.) If the platelets remain low, will then proceed with further evaluation. Check HIV and hepatitis profiles: Negative. Check peripheral blood for flow cytometry, and cytogenetics. Check DIC screen. PT: 12.4. Check for hemolysis. LDH: 256. For now will continue to monitor the platelets carefully. If they decline, will proceed with a bone marrow exam for further evaluation. Thank you for this consult, Will follow along with you, CC: Lucrecia Teixeira MD. (2) Anemia Status: Acute Assessment and plan: She remains stable at this tiime. Will follow. - Time Spent With Patient Time Spent with Patient (in minutes): 15
--- NOTE | 2024-05-19 20:30 | PM.HEMONCPN ---
Medical Summary - Medical Summary Date of Service: 05/19/24 Primary Care Provider: Lucrecia Teixeira MD Medical Summary: DIAGNOSIS: 1. ANEMIA. 2. THROMBOCYTOPENIA. 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 Pt uses walker at home. Reports feeling ?shaky? and legs gave out while in the living room. Pt fell backwards, striking her head on a side table and also landing on her back and right hip. Pt lives with family and daughter primarily takes care of her. Pt did not want to wake daughter to help to the bathroom. Pt denies LOC, lightheadedness, or dizziness. Small initial headache that soon resolved. Pt with hx falls, reports last fell 3 weeks ago. Pt is supposed to have VNA services twice a week especially with help for wound care, but pt reports no one has stopped by for the past 2 weeks. Daughter has been taking care of and re-dressing wounds. Pt reports has areas of bruising on torso and lower extremities secondary to falls. Chronic back and lower extremity musculoskeletal pain around baseline. Currently pt denies lightheadedness, dizziness. No headache or acute vision changes. Denies shortness or breath or difficulty breathing. No cough. Denies chest pain/pressure, palpitations. CTA of head showed small subdural hematoma. Patient's GCS 15. ED clinician reached out to [facility] neurosurgery who recommended repeat CT in 6 hours time and if stable no further intervention required at this time. Repeat CT showed tiny stable subdural hematoma. GCS continued to be 15. In the ED pt with low-grade fever of 100.7, tachycardia up to 104, tachypnea up to 26, and soft BP as low as 99/57. Labs were significant for chronic leukocytosis slightly above baseline at 15.5, H&H 6.0/17.5, creatinine 5.48, initial lactic acid 2.2 with repeat 1.6, albumin 2.8. No significant electrolyte abnormalities. CTA of head showed small focal hyperdense parafalcine subdural hematoma up to 4 mm in thickness without mass effect, midline shift, or hydrocephalus. Repeat CT 6 hours with stable subdural hematoma. CT of cervical spine negative for acute findings. CXR showed probable right lower lobe pneumonia. EKG demonstrated normal sinus rhythm without evidence of significant ST elevations or depressions. Pt was treated with acetaminophen, morphine IVF, vancomycin and ceftriaxone. Pt was also transfused two units PBRCs. Pt was admitted for treatment further evaluation of multiple issues, including subdural hematoma s/p fall at home, and generalized weakness with fall at home in the setting of acute on chronic anemia, cellulitis with sepsis secondary to chronic diabetic foot ulcer, and community-acquired pneumonia. Medical History:) ESRD (end stage renal disease) Generalized seizure Acute kidney injury CKD (chronic kidney disease) stage 3, GFR 30-59 ml/min CHF (congestive heart failure) Anemia Brain tumor (benign) Lower extremity edema Pneumonia Asthma Pulmonary nodule HLD (hyperlipidemia) Seizure Acute hypoxemic respiratory failure due to COVID-19 COVID-19 Kidney stone Depression Gastritis Diabetes Review of Systems Review of Systems: Negative except for that which is stated in the HPI. Review of Systems - Neurologic Reports system reviewed and no additional complaints, except as documented [facility] Medical History: Medical History (Last Reviewed 05/09/24 @ 14:18 by Odalis Mensah, RN) Acute hypoxemic respiratory failure due to COVID-19 Acute kidney injury Anemia Asthma Brain tumor (benign) CHF (congestive heart failure) CKD (chronic kidney disease) stage 3, GFR 30-59 ml/min COVID-19 Depression Diabetes Eschar of heel ESRD (end stage renal disease) Gastritis Generalized seizure HLD (hyperlipidemia) Kidney stone Lower extremity edema Pneumonia Pulmonary nodule Seizure Functional capacity: bed bound Family History: Family History (Last Reviewed 05/08/24 @ 14:43 by Corinne Donato MD) Father CAD (coronary artery disease) Brother Lung cancer Sister Kidney stone Family history: reviewed and not pertinent Surgical History: Surgical History (Last Reviewed 05/09/24 @ 14:18 by Odalis Mensah, RN) H/O cystoscopy H/O hernia repair H/O lithotripsy H/O ureteroscopy History of cholecystectomy 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 Onset Date: 03/28/24 S/P ureteral stent placement Social History: Social History (Last Reviewed 05/08/24 @ 14:43 by Corinne Donato MD) Living Situation History: Household Members: Children Household Members Other:: daughter Housing: House Are you a primary hearing care practitioner to a significant other at home: No Do you presently have visiting nurse or other home services: Yes Do you presently have visiting nurse or other home services comment: daughter is pattern technician, vna 2x week. Tobacco History: Patient Tobacco Use Status: Never used Tobacco e-Cigarette/Vaping Use: Never Used Advance Directives: Advance Directives Date on File: 12/20/21 Occupation Assessmet: service: No Current occupational status: unemployed Home Medications and Allergies Current Medications: Current Medications Acetaminophen (Acetaminophen 325 Mg Tablet) 650 mg PO Q6H PRN PRN Reason: Pain, Mild 1-3,fever,headache Last Admin: 05/18/24 20:39 Dose: 650 mg Alteplase, Recombinant (Alteplase Cath Clear 2 Mg/2 Ml Vial) 2 mg INTRACATH ONCE PRN PRN Reason: dialysis Atorvastatin Calcium (Atorvastatin Calcium 80 Mg Tablet) 80 mg PO DAILY [facility] Last Admin: 05/19/24 09:08 Dose: 80 mg Calcium Carbonate (Calcium Carbonate 750 Mg Tab.Chew) 750 mg PO Q4H PRN PRN Reason: Heartburn Collagenase (Collagenase Clostridium Hist. 30 Gm Tube) 1 appl TOPICAL DAILY [facility]; Protocol Last Admin: 05/19/24 09:18 Dose: 1 appl Dextrose (Dextrose 50 % 25 Gm/50 Ml Syringe) 25 gm IVPUSH Q15M PRN; Protocol PRN Reason: per Hypoglycemia Standing Ord. Docusate Sodium (Docusate Sodium 100 Mg Capsule) 100 mg PO BID [facility] Last Admin: 05/19/24 09:10 Dose: Not Given Ferrous Sulfate (Ferrous Sulfate 324 Mg Tablet.) 324 mg PO DAILY [facility] Last Admin: 05/19/24 09:10 Dose: 324 mg Folic Acid (Folic Acid 1 Mg Tablet) 1 mg PO DAILY [facility] Last Admin: 05/19/24 09:10 Dose: 1 mg Furosemide (Furosemide 40 Mg Tablet) 80 mg PO BID [facility]; Protocol Last Admin: 05/19/24 09:08 Dose: 80 mg Gabapentin (Gabapentin 100 Mg Capsule) 200 mg PO MOWEFR@1800 [facility] Last Admin: 05/17/24 17:19 Dose: 200 mg Gabapentin (Gabapentin 100 Mg Capsule) 100 mg PO DAILY [facility] Last Admin: 05/19/24 09:10 Dose: 100 mg Glucose (Glucose Gel 15 Gm Gel..Gram.) 15 gm PO Q15M PRN; Protocol PRN Reason: per Hypoglycemia Standing Ord. Last Admin: 05/18/24 06:56 Dose: 15 gm Vancomycin HCl 500 mg/ Sodium (Chloride) 110 mls @ 110 mls/hr IV ONCE ONE Stop: 05/16/24 15:44 Insulin Glargine (Insulin Glargine,Hum.Rec.Anlog 100 Unit/Ml 10 Ml Vial) 10 unit SUBCUT BEDTIME [facility] Last Admin: 05/18/24 21:28 Dose: 10 unit Insulin Human Lispro (Insulin Lispro 100 Unit/Ml 3 Ml Vial) 0 unit SUBCUT QIDACHS [facility]; Protocol Last Admin: 05/19/24 17:21 Dose: Not Given Levetiracetam (Levetiracetam 500 Mg Tablet) 500 mg PO MOWEFR@1800 [facility] Last Admin: 05/17/24 17:19 Dose: 500 mg Lorazepam (Lorazepam 0.5 Mg Tablet) 0.5 mg PO Q8H PRN PRN Reason: anxiety Last Admin: 05/19/24 17:45 Dose: 0.5 mg Magnesium Hydroxide (Milk Of Magnesia 30 Ml Oral.Susp) 30 ml PO DAILY PRN PRN Reason: Constipation Melatonin (Melatonin 3 Mg Tablet) 6 mg PO BEDTIME PRN PRN Reason: Insomnia Last Admin: 05/18/24 20:40 Dose: 6 mg Naloxone HCl (Naloxone Hcl 0.4 Mg/Ml Vial) 0.04 mg IVPUSH Q5M PRN PRN Reason: Excessive sedation or RR < 8 Naloxone HCl (Naloxone Hcl 0.4 Mg/Ml Vial) 0.04 mg IVPUSH Q5M PRN PRN Reason: Excessive sedation or RR < 8 Nystatin (Nystatin Powder 15 Gm Bottle) 1 appl TOPICAL TID [facility]; Protocol Last Admin: 05/19/24 17:18 Dose: Not Given Omeprazole (Omeprazole 40 Mg Capsule.Dr) 40 mg PO BID@0630,1630 [facility] Last Admin: 05/19/24 17:11 Dose: 40 mg Oxycodone HCl (Oxycodone Hcl Immed Release 5 Mg Tablet) 2.5 mg PO Q6H PRN PRN Reason: Pain, Moderate(Pain Scale 4-6) Last Admin: 05/19/24 17:45 Dose: 2.5 mg Pharmacy Consult (Consult Rx Vancomycin Dosing) 1 each MISCELLANE DAILY PRN PRN Reason: Consult order Phenytoin Sodium (Phenytoin Sodium Extended 100 Mg Capsule) 100 mg PO TID [facility] Last Admin: 05/19/24 17:11 Dose: 100 mg Sertraline HCl (Sertraline Hcl 100 Mg Tablet) 100 mg PO DAILY [facility] Last Admin: 05/19/24 09:18 Dose: 100 mg Sodium Chloride (0.9 % Sodium Chloride Flush 3 Ml Syringe) 3 ml IVFLUSH QSHIFT [facility] Last Admin: 05/19/24 17:19 Dose: 3 ml Trazodone HCl (Trazodone Hcl 100 Mg Tablet) 100 mg PO BEDTIME PRN PRN Reason: Sleep Last Admin: 05/10/24 21:12 Dose: 100 mg Valproic Acid (Valproic Acid 250 Mg Capsule) 1,000 mg PO BID [facility] Last Admin: 05/19/24 09:08 Dose: 1,000 mg Vitamin D (Cholecalciferol (Vitamin D3) 25 Mcg Tablet) 50 mcg PO DAILY [facility] Last Admin: 05/19/24 09:09 Dose: 50 mcg Home Medications ?Medication ?Instructions ?Recorded ?Confirmed ?Type blood sugar diagnostic [facility]/28/20 09/09/22 History Lite Strips) blood-glucose meter ([facility] 03/28/20 09/09/22 History [facility] Lite kit) lancets 28 gauge ([facility]Style 03/28/20 09/09/22 History Lancets) omeprazole 40 mg capsule,delayed 40 mg PO BID@0630,1630 10/02/21 05/04/24 History release blood pressure test kit-large #1 ea 10/12/21 09/09/22 History atorvastatin 80 mg tablet 80 mg PO DAILY 12/20/21 05/04/24 History nebulizers 01/20/22 09/09/22 History amlodipine 10 mg tablet 10 mg PO DAILY 05/29/22 05/04/24 History aspirin 81 mg tablet,delayed 81 mg PO DAILY 05/29/22 05/04/24 History release lancets 33 gauge ([employer] Lancets) #100 ea 06/07/22 09/09/22 History trazodone 50 mg tablet 100 mg PO BEDTIME PRN Sleep 06/07/22 05/04/24 History cholecalciferol (vitamin D3) 50 50 mcg PO DAILY 11/24/22 05/04/24 History mcg (2,000 unit) tablet ferrous gluconate 324 mg (38 mg 324 mg PO DAILY 11/24/22 05/04/24 History iron) tablet acetaminophen 650 mg 650 mg PO Q8H PRN mild pain 03/22/24 05/04/24 History tablet,extended release diclofenac sodium 1 % topical gel 2 g topical BEDTIME PRN Pain 03/22/24 05/04/24 History losartan 100 mg tablet 100 mg PO BID 03/22/24 05/04/24 History valproic acid 250 mg capsule 1,000 mg PO BID 03/22/24 05/04/24 History furosemide 40 mg tablet 80 mg PO BID 05/04/24 05/04/24 History gabapentin 100 mg capsule 200 mg PO DAILY 05/04/24 05/04/24 History gabapentin 300 mg capsule 300 mg PO MOWEFR@1800 05/04/24 05/04/24 History insulin glargine 100 unit/mL (3 30 unit subcut BEDTIME 05/04/24 05/04/24 History mL) subcutaneous pen (Basaglar KwikPen U-100 Insulin) levetiracetam 500 mg tablet 500 mg PO MOWEFR@1800 05/04/24 05/04/24 History lorazepam 0.5 mg tablet 0.5 mg PO DAILY PRN anxiety 05/04/24 05/04/24 History sertraline 50 mg tablet 100 mg PO DAILY 05/04/24 05/04/24 History Allergies Allergy/AdvReac Type Severity Reaction Status Date / Time Egg Derived Allergy Unknown Verified 05/04/24 01:05 Exam Vital signs: Vital Signs Temp 97.7 F 05/19/24 19:48 Pulse 90 05/19/24 19:48 Resp 20 05/19/24 19:48 BP 159/69 H 05/19/24 19:48 Pulse Ox 99 05/19/24 19:48 O2 Del Method Room Air 05/19/24 19:48 O2 Flow Rate 6 05/09/24 16:16 Intake & Output 05/19/24 05/19/24 05/20/24 06:59 18:59 06:59 Intake Total 500 / 500 Balance 500 / 500 Intake: Intake, Oral Amount 500 / 500 Other: Breakfast % Eaten 25% Lunch % Eaten 0% Eating (Feeding) Ability Independent Number of Incontinent Voids 2 2 Number of Unmeasured Voids 2 Urine incon. Urine Color Yellow Yellow Last Bowel Movement 05/19/24 05/19/24 Weight 105.3 kg BMI result Body Mass Index 42.5 - Constitutional Present: no acute distress, mild distress - Routine HEENT Exam Head: Present: atraumatic, normal inspection, normocephalic - Routine Neck Exam Present: full ROM - Routine Respiratory Exam Present: decreased breath sounds - Routine Cardiovascular Exam Cardiovascular: Present: tachycardia - Routine Abdominal Exam Present: normal bowel sounds - Detailed Neurological Exam: Coma Scale Eye Opening: Spontaneous (4) Data - Labs CBC & Chem 7: 05/19/24 09:28 05/19/24 07:04 - Imaging Radiologist's impression: ITS Impressions Catheter Change 05/09/24 12:00 IMPRESSION: Exchange of a tunneled hemodialysis catheter in the right internal jugular vein. PLAN: -The catheter may be used immediately. Electronically signed by: Jose M Dumont MD 05/09/2024 01:54 PM EDT RP Chest X-Ray 05/14/24 16:25 IMPRESSION: Mild interstitial lung edema versus acute small airway inflammatory process. Electronically signed by: Pete Wright MD 05/15/2024 07:00 AM EDT RP Assessment and Plan Patient Active problem list reviewed?: Yes (1) Thrombocytopenia Status: Acute Assessment and plan: 68-year-old lady with history of end-stage renal disease. Currently on dialysis. 1. ESRD: usu MWF at HDU 2. 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 Wounds 5. Unsteady gait and ques safety with going home 6. Hemoaccess: s/p Pcath replaced and still poor flows--will try cathflow today REC: cont HD mwf; epo/fe; abx as noted; d/c planning--ques go to rehab instead of hoemat time of d/c--PT and daughte to talk to team THROMBOCYTOPENIA: DIFFERENTIAL DIAGNOSIS: 1. PLATELETS CLUMPING: Patient has had a history of clumped platelets. That causes the platelets to be falsely low. Has had platelets drawn in the citrate tube, to eliminate the effect of clumping. 2. UNDERLYING MYELO INFILTRATIVE DISORDER: AN MPN: CML is in the differential. She has had a chronic leukocytosis, consistently since October of last year. She has a left shift with metamyelocytes, myelocytes, eos and basos, on smear. 3. INFECTION RELATED: Any infectious process i.e. HIV, hepatitis B or C can cause it. 4. DIC: Could be related to infection, versus malignancy. 5. ITP: Is in the differential. PLAN: I will proceed with checking her platelet count in a blue top tube, to eliminate effect of clumping. (Platelet count came up to 120.) (05/18: Platelets have normalized.) If the platelets remain low, will then proceed with further evaluation. Check HIV and hepatitis profiles: Negative. Check peripheral blood for flow cytometry, and cytogenetics. Check DIC screen. PT: 12.4. Check for hemolysis. LDH: 256. For now will continue to monitor the platelets carefully. If they decline, will proceed with a bone marrow exam for further evaluation. Thank you for this consult, Will follow along with you, CC: Lucrecia Teixeira MD. - Time Spent With Patient Time Spent with Patient (in minutes): 15
[2024-05-19] MEDS: Melatonin 3 MG TABLET 6 MG PO (21:34)
[2024-05-19] MEDS: Insulin Glargine,Hum.rec.anlog 100 UNIT/ML 10 ML VIAL 10 UNIT SUBCUT (21:34)
[2024-05-20] VITALS (7 sets, daily range): BP systolic 128–148; BP diastolic 61–76; PULSE 82–94; RESP 18–20; TEMP 36.3–37; O2SAT 94–100
[2024-05-20] MEDS: Acetaminophen 325 MG TABLET 650 MG PO ×2 (01:55→11:53)
[2024-05-20] MEDS: LORazepam 0.5 MG TABLET PO ×3 (01:55→18:41)
[2024-05-20] MEDS: oxyCODONE HCl Immed Release 5 MG TABLET 2.5 MG PO ×3 (01:55→16:24)
[2024-05-20] MEDS: Collagenase Clostridium Hist. 30 GM TUBE 1 APPL TOPICAL (01:56)
[2024-05-20] MEDS: Omeprazole 40 MG CAPSULE.DR PO ×2 (05:46→16:24)
[2024-05-20] MEDS: Dextrose 50 % 25 GM/50 ML SYRINGE IVPUSH (08:08)
[2024-05-20 08:12] LABS: Glucose, Whole Blood 55 mg/dL (60-115)
[2024-05-20] MEDS: 0.9 % Sodium Chloride Flush 3 ML SYRINGE IVFLUSH ×2 (08:20→16:25)
[2024-05-20 08:36] LABS: Glucose, Whole Blood 127 mg/dL (60-115)
[2024-05-20 08:45] LABS: Hematocrit 24.8 % (37.0-47.0); Mean Corpuscular HGB Conc 32.3 g/dl (31.0-35.0); Mean Corpuscular Hemoglobin 29.3 pg (27.0-33.0); Mean Corpuscular Volume 90.8 fL (80.0-98.0); Mean Platelet Volume 12.3 fL (9.4-12.3); PLT CLUMP 1; Red Blood Count 2.73 X10*6/uL (4.20-5.50); Red Cell Distribution Width 19.7 % (11.0-16.0)
[2024-05-20 08:46] LABS: White Blood Count 17.6 X10*3/uL (4.8-10.8)
[2024-05-20 09:13] LABS: Anion Gap 16 (12-20); Blood Urea Nitrogen 42 mg/dL (9-16); Calcium 7.9 mg/dL (8.4-10.2); Carbon Dioxide 24 mmol/L (22-29); Chloride 106 mmol/L (96-108); Creatinine Clr Calc Pharmacy 12.8; Estimated Glomerular Filt Rate 9; Glucose Random 55 mg/dL (60-115); Potassium 2.8 mmol/L (3.3-5.1); Sodium 143 mmol/L (135-145)
--- NOTE | 2024-05-20 11:19 | HO.PM.IMPN ---
Subjective Subjective Date of Service: 05/20/24 Interval History: Seen and examined this morning Follow-up for multiple skin wounds, anemia Patient awake, alert reports ?body pain? from wounds. Frequently calls out when she wants to be repositioned and due to pain. She denies abdominal pain, shortness of breath, cough Review of Systems Review of Systems: Yes all other systems are reviewed and are negative Constitutional Constitutional: Denies chills and Denies fever(s) Physical Exam Vital Signs: Vital Signs: Last Vital Signs Temp 97.6 F 05/20/24 08:00 Pulse 88 05/20/24 08:00 Resp 18 05/20/24 08:00 BP 145/65 H 05/20/24 08:00 Pulse Ox 100 05/20/24 08:00 O2 Del Method Room Air 05/20/24 08:00 O2 Flow Rate 6 05/09/24 16:16 BMI result Body Mass Index 42.5 Appearing in no acute distress lung sounds are clear to auscultation heart regular rate rhythm, clear S1, S2 positive bowel sounds, abdomen is soft, nontender neuro patient is alert x3, no focal deficits Objective Data Active Medications Acetaminophen (Acetaminophen 325 Mg Tablet) 650 mg PO Q6H PRN PRN Reason: Pain, Mild 1-3,fever,headache Last Admin: 05/20/24 01:55 Dose: 650 mg Documented By: AJNIA Alteplase, Recombinant (Alteplase Cath Clear 2 Mg/2 Ml Vial) 2 mg INTRACATH ONCE PRN PRN Reason: dialysis Atorvastatin Calcium (Atorvastatin Calcium 80 Mg Tablet) 80 mg PO DAILY [facility]ATH[facility] Last Admin: 05/19/24 09:08 Dose: 80 mg Documented By: NIGHAT Calcium Carbonate (Calcium Carbonate 750 Mg Tab.Chew) 750 mg PO Q4H PRN PRN Reason: Heartburn Collagenase (Collagenase Clostridium Hist. 30 Gm Tube) 1 appl TOPICAL DAILY KATH[facility]INE; Protocol Last Admin: 05/20/24 01:56 Dose: 1 appl Documented By: JANIA Dextrose (Dextrose 50 % 25 Gm/50 Ml Syringe) 25 gm IVPUSH Q15M PRN; Protocol PRN Reason: per Hypoglycemia Standing Ord. Last Admin: 05/20/24 08:08 Dose: 25 gm Documented By: NIGHAT Docusate Sodium (Docusate Sodium 100 Mg Capsule) 100 mg PO BID [facility] Last Admin: 05/19/24 21:34 Dose: Not Given Documented By: JANIA Non-Admin Reason: loose bms Ferrous Sulfate (Ferrous Sulfate 324 Mg Tablet.) 324 mg PO DAILY [facility] Last Admin: 05/19/24 09:10 Dose: 324 mg Documented By: NIGHAT Folic Acid (Folic Acid 1 Mg Tablet) 1 mg PO DAILY [facility] Last Admin: 05/19/24 09:10 Dose: 1 mg Documented By: NIGHAT Furosemide (Furosemide 40 Mg Tablet) 80 mg PO BID [facility]; Protocol Last Admin: 05/19/24 21:33 Dose: 80 mg Documented By: JANIA Gabapentin (Gabapentin 100 Mg Capsule) 200 mg PO MOWEFR@1800 [facility] Last Admin: 05/17/24 17:19 Dose: 200 mg Documented By: JAROCHO Gabapentin (Gabapentin 100 Mg Capsule) 100 mg PO DAILY [facility] Last Admin: 05/19/24 09:10 Dose: 100 mg Documented By: NIGHAT Glucose (Glucose Gel 15 Gm Gel..Gram.) 15 gm PO Q15M PRN; Protocol PRN Reason: per Hypoglycemia Standing Ord. Last Admin: 05/18/24 06:56 Dose: 15 gm Documented By: DOUGLAS Comments: poc 44 Vancomycin HCl 500 mg/ Sodium (Chloride) 110 mls @ 110 mls/hr IV ONCE ONE Stop: 05/16/24 15:44 Potassium Chloride (Potassium Chloride/H20) 10 meq in 100 mls @ 100 mls/hr IV Q1H [facility] Stop: 05/20/24 11:29 Insulin Glargine (Insulin Glargine,Hum.Rec.Anlog 100 Unit/Ml 10 Ml Vial) 10 unit SUBCUT BEDTIME [facility] Last Admin: 05/19/24 21:34 Dose: 10 unit Documented By: JANIA Insulin Human Lispro (Insulin Lispro 100 Unit/Ml 3 Ml Vial) 0 unit SUBCUT QIDACHS [facility]; Protocol Last Admin: 05/20/24 08:20 Dose: Not Given Documented By: NIGHAT Non-Admin Reason: low poc Levetiracetam (Levetiracetam 500 Mg Tablet) 500 mg PO MOWEFR@1800 [facility] Last Admin: 05/17/24 17:19 Dose: 500 mg Documented By: JAROCHO Lorazepam (Lorazepam 0.5 Mg Tablet) 0.5 mg PO Q8H PRN PRN Reason: anxiety Last Admin: 05/20/24 01:55 Dose: 0.5 mg Documented By: JANIA Magnesium Hydroxide (Milk Of Magnesia 30 Ml Oral.Susp) 30 ml PO DAILY PRN PRN Reason: Constipation Melatonin (Melatonin 3 Mg Tablet) 6 mg PO BEDTIME PRN PRN Reason: Insomnia Last Admin: 05/19/24 21:34 Dose: 6 mg Documented By: JANIA Naloxone HCl (Naloxone Hcl 0.4 Mg/Ml Vial) 0.04 mg IVPUSH Q5M PRN PRN Reason: Excessive sedation or RR < 8 Naloxone HCl (Naloxone Hcl 0.4 Mg/Ml Vial) 0.04 mg IVPUSH Q5M PRN PRN Reason: Excessive sedation or RR < 8 Nystatin (Nystatin Powder 15 Gm Bottle) 1 appl TOPICAL TID [facility]; Protocol Last Admin: 05/19/24 21:37 Dose: Not Given Documented By: JANIA Non-Admin Reason: Med Not Available Omeprazole (Omeprazole 40 Mg Capsule.) 40 mg PO BID@0630,1630 [facility] Last Admin: 05/20/24 05:46 Dose: 40 mg Documented By: JANIA Oxycodone HCl (Oxycodone Hcl Immed Release 5 Mg Tablet) 2.5 mg PO Q6H PRN PRN Reason: Pain, Moderate(Pain Scale 4-6) Last Admin: 05/20/24 08:43 Dose: 2.5 mg Documented By: NIGHAT Pharmacy Consult (Consult Rx Vancomycin Dosing) 1 each MISCELLANE DAILY PRN PRN Reason: Consult order Phenytoin Sodium (Phenytoin Sodium Extended 100 Mg Capsule) 100 mg PO TID [facility] Last Admin: 05/19/24 21:33 Dose: 100 mg Documented By: JANIA Sertraline HCl (Sertraline Hcl 100 Mg Tablet) 100 mg PO DAILY [facility] Last Admin: 05/19/24 09:18 Dose: 100 mg Documented By: NIGHAT Sodium Chloride (0.9 % Sodium Chloride Flush 3 Ml Syringe) 3 ml IVFLUSH QSHIFT [facility] Last Admin: 05/20/24 08:20 Dose: 3 ml Documented By: NIGHAT Trazodone HCl (Trazodone Hcl 100 Mg Tablet) 100 mg PO BEDTIME PRN PRN Reason: Sleep Last Admin: 05/10/24 21:12 Dose: 100 mg Documented By: NAM Valproic Acid (Valproic Acid 250 Mg Capsule) 1,000 mg PO BID [facility] Last Admin: 05/19/24 21:33 Dose: 1,000 mg Documented By: JANIA Vitamin D (Cholecalciferol (Vitamin D3) 25 Mcg Tablet) 50 mcg PO DAILY [facility] Last Admin: 05/19/24 09:09 Dose: 50 mcg Documented By: NIGHAT Labs 05/20/24 07:36 05/20/24 07:43 Labs: Laboratory Results - last 24 hr 05/19/24 05/19/24 05/20/24 16:06 19:49 07:36 MCV 90.8 MCH 29.3 MCHC 32.3 RDW 19.7 H Plt Count TNP MPV 12.3 Absolute Nucleated RBC 0.000 Nucleated RBC % (auto) 0.0 Anion Gap Estim Creat Clear Calc Estimated GFR POC Glucose 83 147 H Random Glucose Calcium 05/20/24 05/20/24 05/20/24 07:43 08:04 08:32 MCV MCH MCHC RDW Plt Count MPV Absolute Nucleated RBC Nucleated RBC % (auto) Anion Gap 16 Estim Creat Clear Calc 12.8 Estimated GFR 9 POC Glucose 55 L* 127 H Random Glucose 55 L* Calcium 7.9 L Assessment and Plan (1) Thrombocytopenia: Status: Acute (2) Eschar of heel: Status: Acute (3) ESRD (end stage renal disease) on dialysis: Status: Acute Plan 68-year-old female with a PMH significant for?ESRD on HD M/W/F, HFpEF, seizure disorder, insulin-dependent type 2 diabetes, hx of osteomyelitis s/p left 5th toe amp on 03/28/2024, anemia of chronic disease requiring frequent transfusions, asthma, HTN, and GERD who presented to the ED after fall at home earlier imaging showing small subdural hematoma also found to have cellulitis with sepsis secondary to chronic diabetic foot ulcer and community-acquired pneumonia. Hypokalemia replete with IV and po Insulin-dependent type 2 diabetes with hypoglycemia POCs trending down, asymptomatic episode of hypoglycemia 4/. likely due to poor po intake Lantus reduced by 50%, can up titrate prn continue Sliding-scale insulin Diabetic diet Left foot cellulitis with sepsis S/P fifth digit amputation d/t diabetic foot infection osteomyelitis on 03/28/2024. initially met sepsis criteria with tachycardia, tachypnea and leukocytosis above baseline; lactic acid 2.2 repeat 1.5 seen by surgery s/p debridement 05/09 continue vancomycin seen by ID, rec 6 weeks IV abx upon discharge blood cultures negative toxic metabolic encephalopathy Sedating meds including Seroquel, trazodone, gabapentin placed on hold resumed lower dose of gabapentin due to complaints of pain patient awake, alert UTI Urine culture growing VRE discussed with ID likely colonization, no need to treat,will stop Zyvox Multiple skin wounds Wound care nurse following- see wound note for images/detailed plan santyl for enzymatic debridement as not much progress with wet to dry dressings surgery following - may need further debridement Subdural hematoma CT small right parafalcine subdural hematoma up to 4 mm in thickness; repeat CT 6 hours later stable S/p fall at home with head strike on table; no LOC; neuro exam intact; pt AO x3; GCS 15 ED clinician contacted Neurosurgery at [facility] who said no intervention necessary Neurology -no further work up Hold aspirin head zeyad removed 05/14 Abdominal pain. resolved KUB showing possible ileus, large stool burden - now with diarrhea Diarrhea stool studies negative Acute on chronic anemia of chronic disease no active bleeding noted Received 2 units PRBCs in the ED. H/H trended down /, U rbc ordered. repeat H/H stable. LDH slightly high, but bili normal and retic count low arguing against hemolysis CT abdomen pending to eval for bleeding - report pending hematology following follow CBC chronic leukocytosis/thrombocytopenia most lab values, unable to perform test due to platelet clumping - draw with citrate tube seen by hematology - HIV, hepatitis panel negative further work up in progress Question of community-acquired pneumonia on admission CXR showed probable right lower lobe pneumonia Pt not hypoxic, not requiring supplemental O2 completed course of abx RPP negative ESRD on HD M/W/F Nephrology following hemodialysis catheter replaced by IR 05/09 due to poor function Follow BMP Seizure disorder Continue levetiracetam, valproate, and phenytoin HTN Continue and losartan Mood disorder Continue sertraline, lorazepam psych team consultation for ?depression HLD continue statin requires ongoing inpatient stay for wound care/pain management, thrombocytopneia/anemia dispo: [facility] Quality Stroke Does the patient have a stroke diagnosis?: No VTE Prior VTE?: No VTE Risk Level:: Medical - moderate - high VTE Device Contraindication: N/A - Device Ordered VTE Drug Contraindication: Treatment Not Indicated
[2024-05-20 11:44] LABS: Glucose, Whole Blood 65 mg/dL (60-115)
[2024-05-20] MEDS: Glucose Gel 15 GM GEL..GRAM. PO (11:46)
[2024-05-20] MEDS: Folic Acid 1 MG TABLET PO (11:52)
[2024-05-20] MEDS: Furosemide 40 MG TABLET 80 MG PO ×2 (11:52→20:00)
[2024-05-20] MEDS: Atorvastatin Calcium 80 MG TABLET PO (11:52)
[2024-05-20] MEDS: Phenytoin Sodium Extended 100 MG CAPSULE PO ×3 (11:52→19:59)
[2024-05-20] MEDS: Valproic Acid 250 MG CAPSULE 1000 MG PO ×2 (11:53→20:00)
[2024-05-20] MEDS: Gabapentin 100 MG CAPSULE PO (11:53)
[2024-05-20] MEDS: Sertraline HCL 100 MG TABLET PO (11:53)
[2024-05-20] MEDS: Cholecalciferol (Vitamin D3) 25 MCG TABLET 50 MCG PO (11:53)
[2024-05-20] MEDS: Ferrous Sulfate 324 MG TABLET.DR PO (11:55)
[2024-05-20] MEDS: Nystatin Powder 15 GM BOTTLE 1 APPL TOPICAL ×2 (11:56→20:02)
[2024-05-20] MEDS: Potassium Chloride/H20 10 MEQ/100 ML PIGGYBACK 100 MEQ IV ×2 (12:18→14:00)
[2024-05-20 12:33] LABS: Glucose, Whole Blood 90 mg/dL (60-115)
--- NOTE | 2024-05-20 12:39 | PM.PNNEP ---
Subjective Subjective Date of Service: 05/20/24 Interval history: Seen and examined s/p HD complains of pain this morning Physical Exam Vital Signs: Vital Signs: Last Vital Signs Temp 97.4 F 05/20/24 11:42 Pulse 94 05/20/24 11:42 Resp 18 05/20/24 11:42 BP 141/75 H 05/20/24 11:42 Pulse Ox 100 05/20/24 11:42 O2 Del Method Room Air 05/20/24 11:42 O2 Flow Rate 6 05/09/24 16:16 BMI result Body Mass Index 42.5 Const: General: no acute distress Neck: Neck: Yes supple Resp: Auscultation: diminished lung sounds Cardio: Heart sounds: S1 normal heart sound present and S2 normal heart sound present GI: Palpation (GI): Soft to palpation and nontender Extrem: Right upper extremity: edema Objective Data Labs 05/20/24 07:36 05/20/24 07:43 Labs: Laboratory Results - last 24 hr 05/19/24 05/19/24 05/20/24 16:06 19:49 07:36 WBC 17.6 H RBC 2.73 L Hgb 8.0 L Hct 24.8 L MCV 90.8 MCH 29.3 MCHC 32.3 RDW 19.7 H Plt Count TNP MPV 12.3 Absolute Nucleated RBC 0.000 Nucleated RBC % (auto) 0.0 Sodium Potassium Chloride Carbon Dioxide Anion Gap BUN Creatinine Estim Creat Clear Calc Estimated GFR POC Glucose 83 147 H Random Glucose Calcium 05/20/24 05/20/24 05/20/24 07:43 08:04 08:32 WBC RBC Hgb Hct MCV MCH MCHC RDW Plt Count MPV Absolute Nucleated RBC Nucleated RBC % (auto) Sodium 143 Potassium 2.8 L* Chloride 106 Carbon Dioxide 24 Anion Gap 16 BUN 42 H Creatinine 4.87 H* Estim Creat Clear Calc 12.8 Estimated GFR 9 POC Glucose 55 L* 127 H Random Glucose 55 L* Calcium 7.9 L 05/20/24 05/20/24 11:40 12:29 WBC RBC Hgb Hct MCV MCH MCHC RDW Plt Count MPV Absolute Nucleated RBC Nucleated RBC % (auto) Sodium Potassium Chloride Carbon Dioxide Anion Gap BUN Creatinine Estim Creat Clear Calc Estimated GFR POC Glucose 65 90 Random Glucose Calcium Microbiology Microbiology Results: Microbiology 04/02/25 Unknown Urine Catheterized - Straight Catheter Urine Culture - Final Ira albicans Enterococcus faecium 05/14/24 16:30 Blood - Venous Blood Culture - Final 05/14/24 16:30 Blood - Venous Blood Culture - Final 05/07/24 20:30 Urine clean catch Urine Culture - Final Ira albicans Enterococcus faecium 05/09/24 15:10 Heel, Right Gram Stain - Final 05/09/24 15:10 Heel, Right Routine Culture - Final Staphylococcus aureus 05/04/24 08:25 Blood - Venous Blood Culture - Final No growth after 5 days. 05/04/24 08:26 Blood - Venous Blood Culture - Final No growth after 5 days. 05/04/24 15:12 Urine clean catch - Clean Catch Midstream Urine Culture - Final Procedures Date of Service Date of Service: 05/20/24 Assessment & Plan Assessment and plan (1) ESRD (end stage renal disease): Status: Acute (2) Acute subdural hematoma: Status: Acute (3) Anemia: Status: Acute Plan ESRD on HD at [facility] left foot cellulitis with sepsis nephrogenic anemia REC HD per schedule replace K ABx x 6 weeks renal diet P binders retacrit [id number] units sc x 1 Time Spent With Patient Time: Total time managing care of this patient today ____ minutes. Progress Note: Quality Stroke Does the patient have a stroke diagnosis?: No
--- NOTE | 2024-05-20 14:08 | MHC.CM.PN ---
PT NOT YET MEDICALLY CLEARED, PSYCH EVAL PENDING FOR INCREASED SYMPTOMS OF DEPRESSION. DCP: STR, NO BED OFFERS AT THIS TIME, REFERRALS UPDATED
[2024-05-20 15:58] LABS: Glucose, Whole Blood 121 mg/dL (60-115)
[2024-05-20] MEDS: Gabapentin 100 MG CAPSULE 200 MG PO (16:24)
[2024-05-20] MEDS: levETIRAcetam 500 MG TABLET PO (16:24)
[2024-05-20] MEDS: Epoetin Alfa-epbx 10,000 UNIT/ML VIAL 10000 UNIT SUBCUT (18:30)
[2024-05-20 18:46] LABS: Vancomycin Random 13.3 mcg/mL (15-20)
[2024-05-20] MEDS: Potassium Chloride ER 20 MEQ TAB.ER.PRT PO (19:59)
[2024-05-20] MEDS: Docusate Sodium 100 MG CAPSULE PO (20:00)
[2024-05-20] MEDS: Insulin Glargine,Hum.rec.anlog 100 UNIT/ML 10 ML VIAL 10 UNIT SUBCUT (20:00)
[2024-05-20] MEDS: vancomycin HCL 500 MG in 0.9 % Sodium Chloride 100 ML 110 MG IV (20:03)
[2024-05-20 20:14] LABS: Glucose, Whole Blood 134 mg/dL (60-115)
[2024-05-21] MEDS: oxyCODONE HCl Immed Release 5 MG TABLET 2.5 MG PO ×3 (01:35→19:56)
[2024-05-21 03:13] VITALS: BP 153/66; PULSE 99; RESP 18; TEMP 36.3; O2SAT 95
[2024-05-21] MEDS: Omeprazole 40 MG CAPSULE.DR PO ×2 (05:33→15:43)
[2024-05-21] MEDS: LORazepam 0.5 MG TABLET PO ×3 (06:13→23:37)
[2024-05-21 07:18] LABS: Glucose, Whole Blood 108 mg/dL (60-115)
[2024-05-21 07:19] VITALS: BP 146/56; PULSE 90; RESP 18; TEMP 37.2; O2SAT 99
--- NOTE | 2024-05-21 08:06 | PM.PNGS ---
Subjective Subjective Date of Service: 05/21/24 Interval history: No significant change in overall clinical status Complains of pain ?all over? Mental status has been stable Physical Exam Vital Signs: Vital Signs: Last Vital Signs Temp 99.0 F 05/21/24 07:19 Pulse 90 05/21/24 07:19 Resp 18 05/21/24 07:19 BP 146/56 H 05/21/24 07:19 Pulse Ox 99 05/21/24 07:19 O2 Del Method Room Air 05/21/24 07:19 O2 Flow Rate 6 05/09/24 16:16 BMI result Body Mass Index 42.5 Const: Other: Complains of pain all over Answers simple questions Resp: Other: Mildly short of breath Cardio: Rate: regular rate GI: Palpation (GI): Soft to palpation Extrem: Other: Dry eschar on right heel, no surrounding cellulitis, no dry odor, no discharge Other dry ulcers noted on the thighs, with no cellulitis, no discharge Objective Data Active Medications Acetaminophen (Acetaminophen 325 Mg Tablet) 650 mg PO Q6H PRN PRN Reason: Pain, Mild 1-3,fever,headache Last Admin: 05/20/24 11:53 Dose: 650 mg Documented By: NIGHAT Comments: Alteplase, Recombinant (Alteplase Cath Clear 2 Mg/2 Ml Vial) 2 mg INTRACATH ONCE PRN PRN Reason: dialysis Atorvastatin Calcium (Atorvastatin Calcium 80 Mg Tablet) 80 mg PO DAILY [facility] Last Admin: 05/20/24 11:52 Dose: 80 mg Documented By: NIGHAT Calcium Carbonate (Calcium Carbonate 750 Mg Tab.Chew) 750 mg PO Q4H PRN PRN Reason: Heartburn Collagenase (Collagenase Clostridium Hist. 30 Gm Tube) 1 appl TOPICAL DAILY [facility]; Protocol Last Admin: 05/20/24 01:56 Dose: 1 appl Documented By: JANIA Dextrose (Dextrose 50 % 25 Gm/50 Ml Syringe) 25 gm IVPUSH Q15M PRN; Protocol PRN Reason: per Hypoglycemia Standing Ord. Last Admin: 05/20/24 08:08 Dose: 25 gm Documented By: NIGHAT Docusate Sodium (Docusate Sodium 100 Mg Capsule) 100 mg PO BID [facility] Last Admin: 05/20/24 20:00 Dose: 100 mg Documented By: CHRISTOPHE Epoetin Wesley-epbx (Epoetin Wesley-Epbx 10,000 Unit/Ml Vial) 10,000 unit SUBCUT MoWeFr@1645 [facility] Last Admin: 05/20/24 18:30 Dose: 10,000 unit Documented By: NIGHAT Ferrous Sulfate (Ferrous Sulfate 324 Mg Tablet.) 324 mg PO DAILY [facility] Last Admin: 05/20/24 11:55 Dose: 324 mg Documented By: NIGHAT Folic Acid (Folic Acid 1 Mg Tablet) 1 mg PO DAILY [facility] Last Admin: 05/20/24 11:52 Dose: 1 mg Documented By: NGIHAT Furosemide (Furosemide 40 Mg Tablet) 80 mg PO BID [facility]; Protocol Last Admin: 05/20/24 20:00 Dose: 80 mg Documented By: CHRISTOPHE Gabapentin (Gabapentin 100 Mg Capsule) 200 mg PO MOWEFR@1800 [facility] Last Admin: 05/20/24 16:24 Dose: 200 mg Documented By: NIGHAT Gabapentin (Gabapentin 100 Mg Capsule) 100 mg PO DAILY [facility] Last Admin: 05/20/24 11:53 Dose: 100 mg Documented By: NIGHAT Glucose (Glucose Gel 15 Gm Gel..Gram.) 15 gm PO Q15M PRN; Protocol PRN Reason: per Hypoglycemia Standing Ord. Last Admin: 05/20/24 11:46 Dose: 15 gm Documented By: NIGHAT Vancomycin HCl 500 mg/ Sodium (Chloride) 110 mls @ 110 mls/hr IV ONCE ONE Stop: 05/16/24 15:44 Insulin Glargine (Insulin Glargine,Hum.Rec.Anlog 100 Unit/Ml 10 Ml Vial) 10 unit SUBCUT BEDTIME [facility] Last Admin: 05/20/24 20:00 Dose: 10 unit Documented By: CHRISTOPHE Insulin Human Lispro (Insulin Lispro 100 Unit/Ml 3 Ml Vial) 0 unit SUBCUT QIDACHS [facility]; Protocol Last Admin: 05/21/24 07:23 Dose: Not Given Documented By: NIGHAT Non-Admin Reason: No Insulin Coverage Levetiracetam (Levetiracetam 500 Mg Tablet) 500 mg PO MOWEFR@1800 [facility] Last Admin: 05/20/24 16:24 Dose: 500 mg Documented By: NIGHAT Lorazepam (Lorazepam 0.5 Mg Tablet) 0.5 mg PO Q8H PRN PRN Reason: anxiety Last Admin: 05/21/24 06:13 Dose: 0.5 mg Documented By: CHRISTOPHE Magnesium Hydroxide (Milk Of Magnesia 30 Ml Oral.Susp) 30 ml PO DAILY PRN PRN Reason: Constipation Melatonin (Melatonin 3 Mg Tablet) 6 mg PO BEDTIME PRN PRN Reason: Insomnia Last Admin: 05/19/24 21:34 Dose: 6 mg Documented By: JANIA Naloxone HCl (Naloxone Hcl 0.4 Mg/Ml Vial) 0.04 mg IVPUSH Q5M PRN PRN Reason: Excessive sedation or RR < 8 Naloxone HCl (Naloxone Hcl 0.4 Mg/Ml Vial) 0.04 mg IVPUSH Q5M PRN PRN Reason: Excessive sedation or RR < 8 Nystatin (Nystatin Powder 15 Gm Bottle) 1 appl TOPICAL TID [facility]; Protocol Last Admin: 05/20/24 20:02 Dose: 1 appl Documented By: CHRISTOPHE Omeprazole (Omeprazole 40 Mg Capsule.) 40 mg PO BID@0630,1630 [facility] Last Admin: 05/21/24 05:33 Dose: 40 mg Documented By: CHRISTOPHE Oxycodone HCl (Oxycodone Hcl Immed Release 5 Mg Tablet) 2.5 mg PO Q6H PRN PRN Reason: Pain, Moderate(Pain Scale 4-6) Last Admin: 05/21/24 01:35 Dose: 2.5 mg Documented By: CHRISTOPHE Pharmacy Consult (Consult Rx Vancomycin Dosing) 1 each MISCELLANE DAILY PRN PRN Reason: Consult order Phenytoin Sodium (Phenytoin Sodium Extended 100 Mg Capsule) 100 mg PO TID [facility] Last Admin: 05/20/24 19:59 Dose: 100 mg Documented By: CHRISTOPHE Potassium Chloride (Potassium Chloride Er 20 Meq Tab.Er.Prt) 20 meq PO BID [facility] Last Admin: 05/20/24 19:59 Dose: 20 meq Documented By: CHRISTOPHE Sertraline HCl (Sertraline Hcl 100 Mg Tablet) 100 mg PO DAILY [facility] Last Admin: 05/20/24 11:53 Dose: 100 mg Documented By: NIGHAT Sodium Chloride (0.9 % Sodium Chloride Flush 3 Ml Syringe) 3 ml IVFLUSH QSHIFT [facility] Last Admin: 05/21/24 01:17 Dose: Not Given Documented By: CHRISTOPHE Non-Admin Reason: Previously Administered Trazodone HCl (Trazodone Hcl 100 Mg Tablet) 100 mg PO BEDTIME PRN PRN Reason: Sleep Last Admin: 05/10/24 21:12 Dose: 100 mg Documented By: NAM Valproic Acid (Valproic Acid 250 Mg Capsule) 1,000 mg PO BID [facility] Last Admin: 05/20/24 20:00 Dose: 1,000 mg Documented By: CHRISTOPHE Vitamin D (Cholecalciferol (Vitamin D3) 25 Mcg Tablet) 50 mcg PO DAILY [facility] Last Admin: 05/20/24 11:53 Dose: 50 mcg Documented By: LONNLYM Labs 05/20/24 07:36 05/20/24 07:43 Labs: Laboratory Results - last 24 hr 05/20/24 05/20/24 05/20/24 07:36 07:43 08:04 MCV 90.8 MCH 29.3 MCHC 32.3 RDW 19.7 H Plt Count TNP MPV 12.3 Absolute Nucleated RBC 0.000 Nucleated RBC % (auto) 0.0 Hold Purple Top Anion Gap 16 Estim Creat Clear Calc 12.8 Estimated GFR 9 POC Glucose 55 L* Random Glucose 55 L* Calcium 7.9 L Random Vancomycin 05/20/24 05/20/24 05/20/24 08:32 11:40 12:29 MCV MCH MCHC RDW Plt Count MPV Absolute Nucleated RBC Nucleated RBC % (auto) Hold Purple Top Anion Gap Estim Creat Clear Calc Estimated GFR POC Glucose 127 H 65 90 Random Glucose Calcium Random Vancomycin 05/20/24 05/20/24 05/20/24 15:52 18:25 20:10 MCV MCH MCHC RDW Plt Count MPV Absolute Nucleated RBC Nucleated RBC % (auto) Hold Purple Top Anion Gap Estim Creat Clear Calc Estimated GFR POC Glucose 121 H 134 H Random Glucose Calcium Random Vancomycin 13.3 L 05/21/24 05/21/24 06:57 07:14 MCV MCH MCHC RDW Plt Count MPV Absolute Nucleated RBC Nucleated RBC % (auto) Hold Purple Top SEE NOTE Anion Gap Estim Creat Clear Calc Estimated GFR POC Glucose 108 Random Glucose Calcium Random Vancomycin Procedures Date of Service Date of Service: 05/21/24 Procedure Note Procedure Note: Procedure: Sharp excisional debridement of eschar of the right heel, involving full-thickness of the skin and subcutaneous fat Area was prepped and draped. I used fine scissors to excise this area of thick eschar involving full-thickness of the skin and subcutaneous fat. Area about 3 x 3 cm debrided. I applied wet-to-dry dressings. I wrapped the foot with Kerlix roll I have applied pillows on the calf to keep the heel elevated Progress Note: A&P Assessment and plan (1) Eschar of heel: Status: Acute Assessment and Plan: I did sharp excisional debridement of dry eschar involving full-thickness of the skin and part of subcutaneous layer of the right heel Area about 3 x 3 cm debrided Wet-to-dry dressings reapplied I have talked to the nursing staff about keeping the heel off the bed with a pillow on the calf Apparently, she keeps pushing off the pillow Continue same wound care for the other eschars on the thigh - suspicious for calciphylaxis Patient with multiple acute medical issues Time Spent With Patient Time: Total time managing care of this patient today ____ minutes. Quality Stroke Does the patient have a stroke diagnosis?: No VTE Prior VTE?: No VTE Risk Level:: Medical - moderate - high VTE Device Contraindication: N/A - Device Ordered VTE Drug Contraindication: Treatment Not Indicated
[2024-05-21 08:11] LABS: Creatinine Clr Calc Pharmacy 12.9; Estimated Glomerular Filt Rate 9; Potassium 3.6 mmol/L (3.3-5.1)
[2024-05-21] MEDS: Sertraline HCL 100 MG TABLET PO (08:22)
[2024-05-21] MEDS: Cholecalciferol (Vitamin D3) 25 MCG TABLET 50 MCG PO (08:22)
[2024-05-21] MEDS: Valproic Acid 250 MG CAPSULE 1000 MG PO ×2 (08:22→19:47)
[2024-05-21] MEDS: Phenytoin Sodium Extended 100 MG CAPSULE PO ×3 (08:22→19:47)
[2024-05-21] MEDS: Ferrous Sulfate 324 MG TABLET.DR PO (08:22)
[2024-05-21] MEDS: Gabapentin 100 MG CAPSULE PO (08:22)
[2024-05-21] MEDS: Atorvastatin Calcium 80 MG TABLET PO (08:22)
[2024-05-21] MEDS: Furosemide 40 MG TABLET 80 MG PO ×2 (08:22→19:47)
[2024-05-21] MEDS: Folic Acid 1 MG TABLET PO (08:23)
[2024-05-21] MEDS: Collagenase Clostridium Hist. 30 GM TUBE 1 APPL TOPICAL (08:23)
[2024-05-21] MEDS: Nystatin Powder 15 GM BOTTLE 1 APPL TOPICAL ×3 (08:24→19:59)
[2024-05-21] MEDS: 0.9 % Sodium Chloride Flush 3 ML SYRINGE IVFLUSH ×3 (08:24→20:37)
[2024-05-21] MEDS: Potassium Chloride ER 20 MEQ TAB.ER.PRT PO ×2 (08:31→19:47)
[2024-05-21 09:33] LABS: IgA 269 mg/dL (70-320); IgG 1230 mg/dL (600-1540); IgM 69 mg/dL (50-300)
--- NOTE | 2024-05-21 11:13 | P.PNIM_ITS ---
Subjective Subjective Date of Service: 05/21/24 Interval History: Seen and examined this morning Follow-up for multiple skin wounds, anemia Patient awake, alert reports ?body pain? from wounds. Frequently calls out when she wants to be repositioned and due to pain. Review of Systems Review of Systems: Yes all other systems are reviewed and are negative Constitutional Constitutional: Denies chills and Denies fever(s) Physical Exam 2 Vital Signs: Vital Signs: Last Vital Signs Temp 99.0 F 05/21/24 07:19 Pulse 90 05/21/24 07:19 Resp 18 05/21/24 07:19 BP 146/56 H 05/21/24 07:19 Pulse Ox 99 05/21/24 07:19 O2 Del Method Room Air 05/21/24 07:19 O2 Flow Rate 6 05/09/24 16:16 BMI result Body Mass Index 42.5 Appearing in no acute distress lung sounds are clear to auscultation heart regular rate rhythm, clear S1, S2 positive bowel sounds, abdomen is soft, nontender neuro patient is alert x3, no focal deficits Objective Data Active Medications Acetaminophen (Acetaminophen 325 Mg Tablet) 650 mg PO Q6H PRN PRN Reason: Pain, Mild 1-3,fever,headache Last Admin: 05/20/24 11:53 Dose: 650 mg Documented By: NIGHAT Comments: Alteplase, Recombinant (Alteplase Cath Clear 2 Mg/2 Ml Vial) 2 mg INTRACATH ONCE PRN PRN Reason: dialysis Atorvastatin Calcium (Atorvastatin Calcium 80 Mg Tablet) 80 mg PO DAILY [facility] Last Admin: 05/21/24 08:22 Dose: 80 mg Documented By: NIGHAT Calcium Carbonate (Calcium Carbonate 750 Mg Tab.Chew) 750 mg PO Q4H PRN PRN Reason: Heartburn Collagenase (Collagenase Clostridium Hist. 30 Gm Tube) 1 appl TOPICAL DAILY KATHERINE; Protocol Last Admin: 05/21/24 08:23 Dose: 1 appl Documented By: NIGHAT Dextrose (Dextrose 50 % 25 Gm/50 Ml Syringe) 25 gm IVPUSH Q15M PRN; Protocol PRN Reason: per Hypoglycemia Standing Ord. Last Admin: 05/20/24 08:08 Dose: 25 gm Documented By: NIGHAT Docusate Sodium (Docusate Sodium 100 Mg Capsule) 100 mg PO BID [facility] Last Admin: 05/21/24 08:23 Dose: Not Given Documented By: NIGHAT Non-Admin Reason: loose bm Epoetin Wesley-epbx (Epoetin Wesley-Epbx 10,000 Unit/Ml Vial) 10,000 unit SUBCUT MoWeFr@1645 [facility] Last Admin: 05/20/24 18:30 Dose: 10,000 unit Documented By: NIGHAT Ferrous Sulfate (Ferrous Sulfate 324 Mg Tablet.Dr) 324 mg PO DAILY [facility] Last Admin: 05/21/24 08:22 Dose: 324 mg Documented By: NIGHAT Folic Acid (Folic Acid 1 Mg Tablet) 1 mg PO DAILY [facility] Last Admin: 05/21/24 08:23 Dose: 1 mg Documented By: NIGHAT Furosemide (Furosemide 40 Mg Tablet) 80 mg PO BID [facility]; Protocol Last Admin: 05/21/24 08:22 Dose: 80 mg Documented By: NIGHAT Gabapentin (Gabapentin 100 Mg Capsule) 200 mg PO MOWEFR@1800 [facility] Last Admin: 05/20/24 16:24 Dose: 200 mg Documented By: NIGHAT Gabapentin (Gabapentin 100 Mg Capsule) 100 mg PO DAILY [facility] Last Admin: 05/21/24 08:22 Dose: 100 mg Documented By: NIGHAT Glucose (Glucose Gel 15 Gm Gel..Gram.) 15 gm PO Q15M PRN; Protocol PRN Reason: per Hypoglycemia Standing Ord. Last Admin: 05/20/24 11:46 Dose: 15 gm Documented By: NIGHAT Vancomycin HCl 500 mg/ Sodium (Chloride) 110 mls @ 110 mls/hr IV ONCE ONE Stop: 05/16/24 15:44 Insulin Glargine (Insulin Glargine,Hum.Rec.Anlog 100 Unit/Ml 10 Ml Vial) 10 unit SUBCUT BEDTIME [facility] Last Admin: 05/20/24 20:00 Dose: 10 unit Documented By: CHRISTOPHE Insulin Human Lispro (Insulin Lispro 100 Unit/Ml 3 Ml Vial) 0 unit SUBCUT QIDACHS [facility]; Protocol Last Admin: 05/21/24 07:23 Dose: Not Given Documented By: NIGHAT Non-Admin Reason: No Insulin Coverage Levetiracetam (Levetiracetam 500 Mg Tablet) 500 mg PO MOWEFR@1800 [facility] Last Admin: 05/20/24 16:24 Dose: 500 mg Documented By: NIGHAT Lorazepam (Lorazepam 0.5 Mg Tablet) 0.5 mg PO Q8H PRN PRN Reason: anxiety Last Admin: 05/21/24 06:13 Dose: 0.5 mg Documented By: CHRISTOPHE Magnesium Hydroxide (Milk Of Magnesia 30 Ml Oral.Susp) 30 ml PO DAILY PRN PRN Reason: Constipation Melatonin (Melatonin 3 Mg Tablet) 6 mg PO BEDTIME PRN PRN Reason: Insomnia Last Admin: 05/19/24 21:34 Dose: 6 mg Documented By: JANIA Naloxone HCl (Naloxone Hcl 0.4 Mg/Ml Vial) 0.04 mg IVPUSH Q5M PRN PRN Reason: Excessive sedation or RR < 8 Naloxone HCl (Naloxone Hcl 0.4 Mg/Ml Vial) 0.04 mg IVPUSH Q5M PRN PRN Reason: Excessive sedation or RR < 8 Nystatin (Nystatin Powder 15 Gm Bottle) 1 appl TOPICAL TID [facility]; Protocol Last Admin: 05/21/24 08:24 Dose: 1 appl Documented By: NIGHAT Omeprazole (Omeprazole 40 Mg Capsule.) 40 mg PO BID@0630,1630 [facility] Last Admin: 05/21/24 05:33 Dose: 40 mg Documented By: CHRISTOPHE Oxycodone HCl (Oxycodone Hcl Immed Release 5 Mg Tablet) 2.5 mg PO Q6H PRN PRN Reason: Pain, Moderate(Pain Scale 4-6) Last Admin: 05/21/24 08:21 Dose: 2.5 mg Documented By: NIGHAT Pharmacy Consult (Consult Rx Vancomycin Dosing) 1 each MISCELLANE DAILY PRN PRN Reason: Consult order Phenytoin Sodium (Phenytoin Sodium Extended 100 Mg Capsule) 100 mg PO TID [facility] Last Admin: 05/21/24 08:22 Dose: 100 mg Documented By: NIGHAT Potassium Chloride (Potassium Chloride Er 20 Meq Tab.Er.Prt) 20 meq PO BID [facility] Last Admin: 05/21/24 08:31 Dose: 20 meq Documented By: NIGHAT Sertraline HCl (Sertraline Hcl 100 Mg Tablet) 100 mg PO DAILY [facility] Last Admin: 05/21/24 08:22 Dose: 100 mg Documented By: NIGHAT Sodium Chloride (0.9 % Sodium Chloride Flush 3 Ml Syringe) 3 ml IVFLUSH QSHIFT [facility] Last Admin: 05/21/24 08:24 Dose: 3 ml Documented By: NIGHAT Trazodone HCl (Trazodone Hcl 100 Mg Tablet) 100 mg PO BEDTIME PRN PRN Reason: Sleep Last Admin: 05/10/24 21:12 Dose: 100 mg Documented By: NAM Valproic Acid (Valproic Acid 250 Mg Capsule) 1,000 mg PO BID [facility] Last Admin: 05/21/24 08:22 Dose: 1,000 mg Documented By: NIGHAT Vitamin D (Cholecalciferol (Vitamin D3) 25 Mcg Tablet) 50 mcg PO DAILY [facility] Last Admin: 05/21/24 08:22 Dose: 50 mcg Documented By: NIGHAT Labs 05/20/24 07:36 05/21/24 06:57 Labs: Laboratory Results - last 24 hr 05/17/24 05/20/24 05/20/24 05:43 11:40 12:29 Hold Purple Top Estim Creat Clear Calc Estimated GFR POC Glucose 65 90 Random Vancomycin IgG Total 1230 IgA Total 269 IgM 69 INNA Interpretation SEE NOTE 05/20/24 05/20/24 05/20/24 15:52 18:25 20:10 Hold Purple Top Estim Creat Clear Calc Estimated GFR POC Glucose 121 H 134 H Random Vancomycin 13.3 L IgG Total IgA Total IgM INNA Interpretation 05/21/24 05/21/24 06:57 07:14 Hold Purple Top SEE NOTE Estim Creat Clear Calc 12.9 Estimated GFR 9 POC Glucose 108 Random Vancomycin IgG Total IgA Total IgM INNA Interpretation Assessment and Plan (1) Thrombocytopenia: Status: Acute (2) Eschar of heel: Status: Acute (3) ESRD (end stage renal disease) on dialysis: Status: Acute Plan 68-year-old female with a PMH significant for?ESRD on HD M/W/F, HFpEF, seizure disorder, insulin-dependent type 2 diabetes, hx of osteomyelitis s/p left 5th toe amp on 03/28/2024, anemia of chronic disease requiring frequent transfusions, asthma, HTN, and GERD who presented to the ED after fall at home earlier imaging showing small subdural hematoma also found to have cellulitis with sepsis secondary to chronic diabetic foot ulcer and community-acquired pneumonia. 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 Resolved replete with IV and po Insulin-dependent type 2 diabetes with hypoglycemia POCs trending down, asymptomatic episode of hypoglycemia 05/18. likely due to poor po intake Lantus reduced by 50%, can up titrate prn continue Sliding-scale insulin Diabetic diet Left foot cellulitis with sepsis S/P fifth digit amputation d/t diabetic foot infection osteomyelitis on 03/28/2024. initially met sepsis criteria with tachycardia, tachypnea and leukocytosis above baseline; lactic acid 2.2 repeat 1.5 continue vancomycin seen by ID, rec 6 weeks IV abx upon discharge blood cultures negative seen by surgery s/p debridement 05/09, 05/21 toxic metabolic encephalopathy Sedating meds including Seroquel, trazodone, gabapentin placed on hold resumed lower dose of gabapentin due to complaints of pain patient awake, alert UTI Urine culture growing VRE discussed with ID likely colonization, no need to treat, zyvox stopped Subdural hematoma CT small right parafalcine subdural hematoma up to 4 mm in thickness; repeat CT 6 hours later stable S/p fall at home with head strike on table; no LOC; neuro exam intact; pt AO x3; GCS 15 ED clinician contacted Neurosurgery at [facility] who said no intervention necessary Neurology -no further work up Hold aspirin head zeyad removed 05/14 Abdominal pain. resolved KUB showing possible ileus, large stool burden - now with diarrhea Diarrhea stool studies negative Acute on chronic anemia of chronic disease no active bleeding noted Received 2 units PRBCs in the ED. H/H trended down 05/17, U rbc ordered. repeat H/H stable. LDH slightly high, but bili normal and retic count low arguing against hemolysis CT abdomen pending to eval for bleeding - report pending hematology following follow CBC chronic leukocytosis/thrombocytopenia most lab values, unable to perform test due to platelet clumping - draw with citrate tube seen by hematology - HIV, hepatitis panel negative further work up in progress Question of community-acquired pneumonia on admission CXR showed probable right lower lobe pneumonia Pt not hypoxic, not requiring supplemental O2 completed course of abx RPP negative ESRD on HD M/W/F Nephrology following hemodialysis catheter replaced by IR 05/09 due to poor function Follow BMP Seizure disorder Continue levetiracetam, valproate, and phenytoin HTN Continue and losartan Mood disorder Continue sertraline, lorazepam psych team consultation for ?depression HLD continue statin requires ongoing inpatient stay for wound care/pain management, thrombocytopneia/anemia dispo: STR Quality Stroke Does the patient have a stroke diagnosis?: No VTE Prior VTE?: No VTE Risk Level:: Medical - moderate - high VTE Device Contraindication: N/A - Device Ordered VTE Drug Contraindication: Treatment Not Indicated
[2024-05-21 11:25] VITALS: BP 136/61; PULSE 92; RESP 18; TEMP 37.2; O2SAT 97
[2024-05-21 11:45] LABS: Glucose, Whole Blood 142 mg/dL (60-115)
[2024-05-21 15:26] VITALS: BP 125/66; PULSE 86; RESP 18; TEMP 36.6; O2SAT 94
[2024-05-21 15:30] LABS: Glucose, Whole Blood 123 mg/dL (60-115)
[2024-05-21] MEDS: Acetaminophen 325 MG TABLET 650 MG PO (15:43)
[2024-05-21] MEDS: Melatonin 3 MG TABLET 6 MG PO (19:47)
[2024-05-21 20:00] VITALS: BP 124/58; PULSE 93; RESP 18; TEMP 36.4; O2SAT 99
[2024-05-21 20:34] LABS: Glucose, Whole Blood 170 mg/dL (60-115)
[2024-05-21] MEDS: Insulin Glargine,Hum.rec.anlog 100 UNIT/ML 10 ML VIAL 10 UNIT SUBCUT (20:35)
[2024-05-22] VITALS: BP 160/68; PULSE 106; RESP 18; TEMP 37; O2SAT 97
[2024-05-22] MEDS: oxyCODONE HCl Immed Release 5 MG TABLET 2.5 MG PO ×2 (02:51→09:31)
[2024-05-22 04:00] VITALS: BP 169/72; PULSE 96; RESP 18; TEMP 37.3; O2SAT 97
[2024-05-22 07:28] LABS: Anion Gap 14 (12-20); Blood Urea Nitrogen 40 mg/dL (9-16); Calcium 7.8 mg/dL (8.4-10.2); Carbon Dioxide 23 mmol/L (22-29); Chloride 109 mmol/L (96-108); Creatinine Clr Calc Pharmacy 13.6; Estimated Glomerular Filt Rate 10; Glucose Random 103 mg/dL (60-115); Potassium 4.1 mmol/L (3.3-5.1); Sodium 142 mmol/L (135-145)
[2024-05-22 07:36] VITALS: BP 114/46; PULSE 96; RESP 18; TEMP 36.7; O2SAT 100
[2024-05-22 07:37] LABS: Vitamin D 25-OH Total 23.4 ng/mL (>30)
[2024-05-22 07:37] LABS: Glucose, Whole Blood 116 mg/dL (60-115)
[2024-05-22] MEDS: Alteplase Cath Clear 2 MG/2 ML VIAL INTRACATH (08:01)
[2024-05-22] MEDS: Docusate Sodium 100 MG CAPSULE PO (09:29)
[2024-05-22] MEDS: Atorvastatin Calcium 80 MG TABLET PO (09:29)
[2024-05-22] MEDS: LORazepam 0.5 MG TABLET PO (09:29)
[2024-05-22] MEDS: Valproic Acid 250 MG CAPSULE 1000 MG PO (09:29)
[2024-05-22] MEDS: Potassium Chloride ER 20 MEQ TAB.ER.PRT PO (09:30)
[2024-05-22] MEDS: Phenytoin Sodium Extended 100 MG CAPSULE PO ×2 (09:30→16:16)
[2024-05-22] MEDS: Folic Acid 1 MG TABLET PO (09:30)
[2024-05-22] MEDS: Sertraline HCL 100 MG TABLET PO (09:30)
[2024-05-22] MEDS: Ferrous Sulfate 324 MG TABLET.DR PO (09:31)
[2024-05-22] MEDS: Furosemide 40 MG TABLET 80 MG PO (09:31)
[2024-05-22] MEDS: Gabapentin 100 MG CAPSULE PO (09:32)
[2024-05-22] MEDS: 0.9 % Sodium Chloride Flush 3 ML SYRINGE IVFLUSH (09:33)
[2024-05-22] MEDS: Collagenase Clostridium Hist. 30 GM TUBE 1 APPL TOPICAL (09:33)
[2024-05-22] MEDS: Nystatin Powder 15 GM BOTTLE 1 APPL TOPICAL ×2 (09:33→16:14)
[2024-05-22] MEDS: Cholecalciferol (Vitamin D3) 25 MCG TABLET 50 MCG PO (09:37)
--- NOTE | 2024-05-22 10:30 | MHC.CM.PN ---
CM RECEIVED MESSAGE FROM [facility] THAT [facility] CAN OFFER PT A STR BED, UPDATES SENT HOWEVER NEW PT ORDER REQUESTED PT WAS DISCHARGED YESTERDAY DUE NOT PARTICIPATING D/T PAIN, CM WILL SEND NEW PT ONCE COMPLETED AND CONT TO FOLLOW.
[2024-05-22 11:53] LABS: Glucose, Whole Blood 98 mg/dL (60-115)
[2024-05-22] MEDS: oxyCODONE HCl Immed Release 5 MG TABLET PO (13:48)
[2024-05-22] MEDS: SODIUM THIOSULFATE IV ×2 (14:49→16:11)
[2024-05-22] MEDS: SODIUM CHLORIDE 0.9% IV ×2 (14:49→16:11)
[2024-05-22 15:46] VITALS: BP 136/58; PULSE 93; RESP 20; TEMP 37; O2SAT 96
--- NOTE | 2024-05-22 16:02 | HO.WOUND ---
Wound Consult: Follow up 68yr old? female admitted [place] [facility] [place]- See progress notes and H&P for detailed history.? Wound consult follow up for Multiple wounds present on admission.? Relocation Services Specialist present the whole time - this was beneficial to the patient as she called out in pain throughout the assessment and dressing change. Patient daughter at bedside and questions asked and answered. Patient agreeable to assessment and photo documentation.? Todays wounds continue to benefit from Santyl application - no new topical recommendations needed at this time. Of note the bilateral thigh dressing were changed early this morning and therefore were not assessed at the time of my assessment. Left Calf 05/22/24 - improving wound bed - full thickness tissue loss - continue with Santyl for enzymatic debridement. Right Heel - somewhat improving wound bed - full thickness tissue loss - continue with Santyl for enzymatic debridement. Left Foot - improving wound bed - less slough noted - continue to pack with durafiber AG. Patient set for d/c to facility continue topical recommendations made below. Recommendations: 1. Turn and Reposition every 2 hours and as needed for patient comfort.? Use pillows or wedges to support off loading positions. 2. Off Load all bony prominences with use of pillows and heel boots if needed.? Apply Preventative foams where needed. ? 3. Monitor for incontinence and moisture control, use barrier creams when needed for prevention and treatment. 4. Provide adequate and supplemental nutrition.? 5. Order low air loss mattress. 6. When applicable maintain blood glucose levels per Providers order. 7. Skin Folds - Cleanse with PH balance wipes, pat dry with soft cloth.? Apply antifungal power to assist with moisture management.? Be sure to dust of excess powder to prevent caking on skin and in folds. Apply per provider orders. Tuck Interdry AG Sheet into skin fold to wick and translocate moisture away from skin fold.? Be sure to leave at least 2 inch of fabric exposed outside of skin fold.? Change after 5 days or when soiled. 8. Left Foot - Cleanse and irrigate with NS, Pat dry.? Apply barrier to periwound, lightly pack with Durafiber AG, be sure to leave a wick to easy removal.? Cover with gauze and wrap dressing.? Change every other day. 9. Perineal and Left Ischium - Off Load Pressure with Q2 hr turns and use of pillows - Cleanse with PH balance spray or wipes, pat dry. ?Apply thin layer of Triad to wound bed - only pat and dab no scrub and rub when soiling occurs. Reapply thin layer PRN after each episode of incontinence. 10. Right Heel, Bilateral Thighs and left Calf - Off Load Pressure with Q2 hr turns and use of pillows - Cleanse with NS moist gauze, pat dry. ?Apply thin layer of Triad to periwound. Apply thick layer of Santyl to entire wound bed, cover with saline moist gauze, cover with dry gauze, ABD pad and gauze wrap or tape change Daily. Details from previous assessments: Chart review questions if the wounds are secondary to falls at home. See history in chart review for right thigh wound - progression has been atypical and some of the wounds are not typical pressure locations and progressions. Seen by Dr. Vines and performed Left thigh and Right Heel debridement in OR and Biopsy sent. Biopsy results as Gangrenous tissue - no etiology provided. TT with Dr. Vines and DHARA Galindo my recommendation to switch patient to Santyl due to little improvement to various wound beds - They are in agreement and will order Santyl. The left foot wound is a non-healing surgical incision from an amputation - topical recommendations made by Dr Salas for Durafiber - Wound was assessed and changed today - less concerning no odor noted but remain with adherent slough to wound bed recommend continued Durafiber AG. Left Posterior Calf 05/07/24 05/16/24 Left Lateral thigh 05/07/24 05/16/24 Right Lateral Thigh 05/07/24 05/16/24 Bilateral Thigh and Left Posterior leg Etiology: ??Unclear etiology at this time - Recommend Biopsy to rule out Calciphylaxis Wound Bed: various stages of wound progression Drainage / Odor: Mild odor noted to Right Heel and Right Thigh Edges: ? irregular and non attached Ruth wound: ?[place] red edges No Induration, Fluctuance noted Pain: extreme pain reported Goals of Treatment: ? Santyl for enzymatic debridement and durafiber to continue to left foot Right Heel 05/07/24 05/16/24 Left Heel Etiology: ??Diabetic Wound Wound Bed: necrotic eschar and slough thin tissue covering bone Drainage / Odor: Mild odor noted evans drainage Edges: ? irregular and non attached Ruth wound: ?[place] red edges No Induration, Fluctuance noted Pain: extreme pain reported Goals of Treatment: ? Santyl for enzymatic debridement Left Lateral Foot -5th toe amp site 05/07/24 05/16/24 Left Foot Etiology: ??Nonhealing Surgical Site Wound Bed: adherent yellows brown slough Drainage / Odor: [place] no odor noted Edges: ? irregular and non attached Ruth wound: ?Improving periwound No Induration, Fluctuance noted Pain: Mild pain reported Goals of Treatment: ? durafiber to continue to left foot Left Ischium 05/07/24 05/16/24 Left Ischium Etiology: ??Unclear etiology at this time vs Unstageable Pressure injury Wound Bed: improving - adherent yellow slough to wound bed Drainage / Odor: none Edges: ? irregular Ruth wound: ?[place] red edges improving MASD No Induration, Fluctuance noted Pain: extreme pain reported Goals of Treatment: ? Continue triad Buttock 05/16/24 Buttock - Perianal Etiology: ??MASD Wound Bed: improving red pink moist partial thickness tissue loss Drainage / Odor: none Edges: ? irregular and mirrored Ruth wound: ? improving MASD No Induration, Fluctuance noted Pain: pain reported Goals of Treatment: ? Continue triad Recommendations: 1. Turn and Reposition every 2 hours and as needed for patient comfort.? Use pillows or wedges to support off loading positions. 2. Off Load all bony prominences with use of pillows and heel boots if needed.? Apply Preventative foams where needed. ? 3. Monitor for incontinence and moisture control, use barrier creams when needed for prevention and treatment. 4. Provide adequate and supplemental nutrition.? 5. Order low air loss mattress. 6. When applicable maintain blood glucose levels per Providers order. 7. Skin Folds - Cleanse with PH balance wipes, pat dry with soft cloth.? Apply antifungal power to assist with moisture management.? Be sure to dust of excess powder to prevent caking on skin and in folds. Apply per provider orders. Tuck Interdry AG Sheet into skin fold to wick and translocate moisture away from skin fold.? Be sure to leave at least 2 inch of fabric exposed outside of skin fold.? Change after 5 days or when soiled. 8. Left Foot - Cleanse and irrigate with NS, Pat dry.? Apply barrier to periwound, lightly pack with Durafiber AG, be sure to leave a wick to easy removal.? Cover with gauze and wrap dressing.? Change every other day. 9. Perineal and Left Ischium - Off Load Pressure with Q2 hr turns and use of pillows - Cleanse with PH balance spray or wipes, pat dry. ?Apply thin layer of Triad to wound bed - only pat and dab no scrub and rub when soiling occurs. Reapply thin layer PRN after each episode of incontinence. 10. Right Heel, Bilateral Thighs and left Calf - Off Load Pressure with Q2 hr turns and use of pillows - Cleanse with NS moist gauze, pat dry. ?Apply thin layer of Triad to periwound. Apply thick layer of Santyl to entire wound bed, cover with saline moist gauze, cover with dry gauze, ABD pad and gauze wrap or tape change Daily. Re-consult wound care Nurse for wound deterioration or wound changes.
[2024-05-22 16:14] LABS: Glucose, Whole Blood 124 mg/dL (60-115)
[2024-05-22] MEDS: Omeprazole 40 MG CAPSULE.DR PO (16:19)
== END 2024-05-22 17:23 | disposition skilled nursing facility (03) | DRG 853 ==
LOC: HO.ED 07:34 → HO.EDOVER 12:35 → HO.IMC 23:22
PROVIDERS: Emergency Medicine; Internal Medicine; Internal Medicine Medical Oncology; Physician Assistant Medical; Student in an Organized Health Care Education/Training Program; Surgery; Admitting Provider Student in an Organized Health Care Education/Training Program; Emergency Provider Internal Medicine; PCP General Practice; Visit Provider Nurse Practitioner Acute Care
PROC: 0J2TXYZ Change Other Device in Trunk Subcutaneous Tissue and Fascia, External Approach (ICD-10-PCS; principal; 2024-05-09 12:30)
PROC: 0JBM0ZZ Excision of Left Upper Leg Subcutaneous Tissue and Fascia, Open Approach (ICD-10-PCS; principal; 2024-05-09 15:10)
DX: A41.9 Sepsis, unspecified organism (principal); G92.8 Other toxic encephalopathy; J18.9 Pneumonia, unspecified organism; S06.5XAA Traumatic subdural hemorrhage with loss of consciousness status unknown, initial encounter; N18.6 End stage renal disease; L03.116 Cellulitis of left lower limb; I13.2 Hypertensive heart and chronic kidney disease with heart failure and with stage 5 chronic kidney disease, or end stage renal disease; I50.32 Chronic diastolic (congestive) heart failure; E87.21 Acute metabolic acidosis; L97.422 Non-pressure chronic ulcer of left heel and midfoot with fat layer exposed; K56.7 Ileus, unspecified; N39.0 Urinary tract infection, site not specified; Z16.21 Resistance to vancomycin; R26.81 Unsteadiness on feet; N25.0 Renal osteodystrophy; E86.0 Dehydration; E11.22 Type 2 diabetes mellitus with diabetic chronic kidney disease; E11.621 Type 2 diabetes mellitus with foot ulcer; D63.1 Anemia in chronic kidney disease; E78.5 Hyperlipidemia, unspecified; F39 Unspecified mood [affective] disorder; B95.2 Enterococcus as the cause of diseases classified elsewhere; D69.6 Thrombocytopenia, unspecified; E87.6 Hypokalemia; L94.2 Calcinosis cutis; E11.649 Type 2 diabetes mellitus with hypoglycemia without coma; G40.909 Epilepsy, unspecified, not intractable, without status epilepticus; Z20.822 Contact with and (suspected) exposure to COVID-19; S01.01XA Laceration without foreign body of scalp, initial encounter; T87.81 Dehiscence of amputation stump; R40.2413 Glasgow coma scale score 13-15, at hospital admission; W19.XXXA Unspecified fall, initial encounter; Z79.4 Long term (current) use of insulin; Z79.899 Other long term (current) drug therapy
CPT/HCPCS: 36415; 36581; 70450; 71045; 72125; 72192; 73522; 74018; 74176; 80048; 80053; 80164; 80177; 80185; 80202; 81001; 81206; 81207; 82140; 82272; 82306; 82565; 82607; 82728; 82746; 82784; 82803; 82947; 83036; 83540; 83605; 83615; 83735; 84100; 84132; 85007; 85014; 85018; 85025; 85027; 85045; 85610; 85652; 86140; 86334; 86704; 86706; 86803; 86850; 86900; 86901; 86923; 87040; 87070; 87077; 87086; 87088; 87186; 87205; 87340; 87389; 87493; 87507; 87633; 88304; 88305; 88311; 90999; 93005; 97110; 97112; 97163; 97530; 99285; C1750; C1769; J0209; J0696; J1165; J1644; J2003; J2020; J2270; J2543; J2704; J2795; J2997; J3010; J3370; J3480; P9016; Q5106

== ENCOUNTER → 2024-05-04 01:11 | Outpatient (BNV) | payer MEDICARE, MEDICAID, SELFPAY | PROVIDERS: Admitting Provider Student in an Organized Health Care Education/Training Program; Emergency Provider Internal Medicine; PCP General Practice; Visit Provider Internal Medicine Cardiovascular Disease | DX: R94.31 Abnormal electrocardiogram [ECG] [EKG] (principal) | CPT/HCPCS: 93010 ==

== ENCOUNTER → 2024-05-04 01:39 | Outpatient (BNV) | payer MEDICARE, MEDICAID, SELFPAY | PROVIDERS: Emergency Provider Internal Medicine; PCP General Practice; Visit Provider Radiology Diagnostic Radiology | DX: S06.5X0A Traumatic subdural hemorrhage without loss of consciousness, initial encounter (principal); S79.911A Unspecified injury of right hip, initial encounter; R06.89 Other abnormalities of breathing | CPT/HCPCS: 70450; 73522 ==

== ENCOUNTER 2024-05-04 12:22 | Outpatient (BNV) | payer MEDICARE, MEDICAID, SELFPAY | END 2024-05-08 22:22 | PROVIDERS: Admitting Provider Student in an Organized Health Care Education/Training Program; Emergency Provider Internal Medicine; PCP General Practice; Visit Provider Radiology Diagnostic Radiology | DX: R41.82 Altered mental status, unspecified (principal) | CPT/HCPCS: 70450 ==

== ENCOUNTER 2024-05-04 12:22 | Outpatient (BNV) | payer MEDICARE, MEDICAID, SELFPAY | END 2024-05-14 16:25 | PROVIDERS: Admitting Provider Student in an Organized Health Care Education/Training Program; Emergency Provider Internal Medicine; PCP General Practice; Visit Provider Radiology Diagnostic Radiology | DX: J81.0 Acute pulmonary edema (principal) | CPT/HCPCS: 71045 ==

== ENCOUNTER 2024-05-04 12:22 | Outpatient (BNV) | payer MEDICARE, MEDICAID, SELFPAY | END 2024-05-05 15:18 | PROVIDERS: Admitting Provider Student in an Organized Health Care Education/Training Program; Emergency Provider Internal Medicine; PCP General Practice; Visit Provider Radiology Diagnostic Radiology | DX: M25.851 Other specified joint disorders, right hip (principal); W19.XXXA Unspecified fall, initial encounter | CPT/HCPCS: 72192 ==

== ENCOUNTER 2024-05-04 12:22 | Outpatient (BNV) | payer MEDICARE, MEDICAID, SELFPAY | END 2024-05-11 16:49 | PROVIDERS: Admitting Provider Student in an Organized Health Care Education/Training Program; Emergency Provider Internal Medicine; PCP General Practice; Visit Provider Radiology Diagnostic Radiology | DX: R10.9 Unspecified abdominal pain (principal) | CPT/HCPCS: 74018 ==

== ENCOUNTER 2024-05-04 12:22 | Outpatient (BNV) | payer MEDICARE, MEDICAID, SELFPAY | END 2024-05-18 13:45 | PROVIDERS: Admitting Provider Student in an Organized Health Care Education/Training Program; Emergency Provider Internal Medicine; PCP General Practice; Visit Provider Radiology Diagnostic Radiology | DX: D64.9 Anemia, unspecified (principal) | CPT/HCPCS: 74176 ==

== ENCOUNTER 2024-05-04 12:22 | Outpatient (BNV) | payer MEDICARE, MEDICAID, SELFPAY | END 2024-05-09 12:00 | PROVIDERS: Admitting Provider Student in an Organized Health Care Education/Training Program; Emergency Provider Internal Medicine; PCP General Practice; Visit Provider Student in an Organized Health Care Education/Training Program | DX: N18.6 End stage renal disease (principal); T82.42XA Displacement of vascular dialysis catheter, initial encounter | CPT/HCPCS: 36581; 77001 ==

== ENCOUNTER → 2024-05-04 12:22 | Outpatient (BNV) | payer MEDICARE, MEDICAID, SELFPAY | PROVIDERS: Admitting Provider Student in an Organized Health Care Education/Training Program; Emergency Provider Internal Medicine; PCP General Practice; Visit Provider Psychiatry & Neurology Neurology | DX: S06.5XAA Traumatic subdural hemorrhage with loss of consciousness status unknown, initial encounter (principal) | CPT/HCPCS: 99222 ==

== ENCOUNTER → 2024-05-04 12:22 | Outpatient (BNV) | payer MEDICARE, MEDICAID, SELFPAY | PROVIDERS: Admitting Provider Student in an Organized Health Care Education/Training Program; Emergency Provider Internal Medicine; PCP General Practice; Visit Provider Internal Medicine Medical Oncology | DX: D69.6 Thrombocytopenia, unspecified (principal) | CPT/HCPCS: 99222 ==

== ENCOUNTER → 2024-05-04 12:22 | Outpatient (BNV) | payer MEDICARE, MEDICAID, SELFPAY | PROVIDERS: Admitting Provider Student in an Organized Health Care Education/Training Program; Emergency Provider Internal Medicine; PCP General Practice; Visit Provider Internal Medicine | DX: R23.4 Changes in skin texture (principal); L03.90 Cellulitis, unspecified | CPT/HCPCS: 99222 ==

== ENCOUNTER → 2024-05-04 12:22 | Outpatient (BNV) | payer MEDICARE, MEDICAID, SELFPAY | PROVIDERS: Admitting Provider Student in an Organized Health Care Education/Training Program; Emergency Provider Internal Medicine; PCP General Practice; Visit Provider Surgery | DX: E11.628 Type 2 diabetes mellitus with other skin complications (principal); L08.9 Local infection of the skin and subcutaneous tissue, unspecified | CPT/HCPCS: 99024 ==

== ENCOUNTER → 2024-05-04 12:22 | Outpatient (BNV) | payer MEDICARE, MEDICAID, SELFPAY | PROVIDERS: Admitting Provider Student in an Organized Health Care Education/Training Program; Emergency Provider Internal Medicine; PCP General Practice; Visit Provider Student in an Organized Health Care Education/Training Program | DX: L03.116 Cellulitis of left lower limb (principal); S06.5XAA Traumatic subdural hemorrhage with loss of consciousness status unknown, initial encounter; E11.621 Type 2 diabetes mellitus with foot ulcer | CPT/HCPCS: 99223; 99232 ==

== ENCOUNTER 2024-05-23 09:06 | Emergency (ER) | payer MEDICARE, MEDICAID, SELFPAY ==
[2024-05-23] VITALS (7 sets, daily range): BP systolic 130–161; BP diastolic 38–71; PULSE 85–105; RESP 14–21; TEMP 36.7–38.2; O2SAT 94–100; BMI 44.9
--- NOTE | ~2024-05-23 | XR_ITS ---
EXAMINATION: XR TIBIA AND FIBULA, LEFT CLINICAL INFORMATION: Large left lateral wound, concern for osteomyelitis. COMPARISON: None available. TECHNIQUE: AP and lateral views of the left tibia and fibula were obtained. FINDINGS: Diffuse osteopenia. No fracture, dislocation, or suspicious bone lesion. No focal periostitis or lytic changes to suggest radiographic changes of osteomyelitis. Soft tissues demonstrate diffuse vascular calcifications but are otherwise normal. XR/XR tibia fibula LT 2V IMPRESSION: Osteopenia without acute bony lesion. No radiographic evidence of osteomyelitis. Diffuse vascular calcifications. Electronically signed by: Rupesh Araya MD 05/23/2024 11:19 AM EDT
--- NOTE | ~2024-05-23 | XR_ITS ---
EXAMINATION: XR BILATERAL HIPS WITH AP PELVIS CLINICAL INFORMATION: large hip wound, concern for osteo COMPARISON: None available. TECHNIQUE: AP view of the pelvis and single views of each hip were obtained. FINDINGS: Study is very limited secondary to patient habitus. Limited visualization of the bony structures. Within confines of limitations, no fracture, dislocation, or suspicious bone lesion. No definite radiographic changes of osteomyelitis. There are mild to moderate changes of arthritis in both hip joints. Diffuse vascular calcifications in the soft tissues. Soft tissue defect in the left inferolateral hip region. No subcutaneous emphysema. XR/XR hip BI w PEL1V IMPRESSION: Limited exam. No acute bony abnormalities allowing for limitations. Soft tissue defect in the left inferolateral hip region. No subcutaneous emphysema. Electronically signed by: Rupesh Araya MD 05/23/2024 11:21 AM EDT
--- NOTE | ~2024-05-23 | XR_ITS ---
EXAMINATION: XR FOOT, BILATERAL 3V CLINICAL INFORMATION: 5th toe amp wound, concern for osteo to the foot COMPARISON: None available. TECHNIQUE: AP, lateral, and oblique views of both feet. FINDINGS: Left Foot: There has been amputation of the fifth digit at the distal metatarsal level. Soft tissue defect overlying. Mild irregularity of the osteotomy site versus resorptive changes of the entire fifth metatarsal head. There is diffuse osteopenia. There is no acute fracture or malalignment. There are degenerative changes in the interphalangeal joints, and mild changes at the MTP joint. Hammertoe deformities. Prominent plantar and dorsal calcaneal spurring. Soft tissues otherwise demonstrate diffuse vascular calcification. No subcutaneous emphysema is seen in the midfoot or hindfoot. Right Foot: Diffuse osteopenia. No fracture or malalignment. Hammertoe deformities. Deformity of the fifth digit proximal phalanx, chronic, possibly based on healed osteomyelitis. No definite radiographic changes of acute osteomyelitis. Small plantar and dorsal calcaneal spurs. Soft tissue ulceration overlying the heel region. These vascular calcifications. No gross subcutaneous emphysema. XR/XR Foot Eugenio 3V IMPRESSION: Left Foot: 1. Fifth digit amputation. Soft tissue defect overlying the amputation site. There is either irregularity of the osteotomy site at the metaphysis of the fifth metatarsal, or there is osteolysis of the fifth metatarsal head. Both are concerning for osteomyelitis. 2. Diffuse osteopenia. Vascular calcifications. Right Foot: 1. Soft tissue ulceration in the heel region without definite radiographic changes of osteomyelitis. No acute bony abnormality. 2. Diffuse osteopenia. Vascular calcifications. Electronically signed by: Rupesh Araya MD 05/23/2024 11:32 AM EDT
--- NOTE | ~2024-05-23 | XR_ITS ---
EXAMINATION: XR CHEST CLINICAL INFORMATION: fever, weakness COMPARISON: None available. TECHNIQUE: Frontal view of the chest was obtained. FINDINGS: Right-sided tunneled dialysis catheter in place with tip in the right atrium. There is cardiomegaly. Mediastinal and hilar contours otherwise normal. Lungs demonstrate low lung volumes. Right perihilar haziness. There is diffuse small airway thickening throughout both lungs with mild increase of the background interstitial markings. No pneumothorax or effusion. No focal osseous or soft tissue abnormality. XR/XR chest 1V IMPRESSION: 1. Dialysis catheter in good position. 2. Cardiomegaly. 3. Right perihilar haziness with diffuse small airway thickening throughout both lungs. Electronically signed by: Rupesh Araya MD 05/23/2024 12:58 PM EDT
--- NOTE | 2024-05-23 09:38 | ED_ITS ---
HPI - General Adult General Chief complaint: Recheck/Abnormal Lab/Rx Stated complaint: ABN LABS,BACK PAIN FROM SNF PER EMS Time Seen by Provider: 05/23/24 09:38 Source: patient, family (patient's daughter / HCP), EMS and tunnel form placing supervisor (all interactions with this patient were facilitated with an [facility] [place] offset printer) Mode of arrival: EMS Limitations: language barrier (all interactions with this patient were facilitated with an [facility] [place] offset printer) History of Present Illness ED Provider: Yancy Jacobson PA-C HPI narrative: Patient is a 68 year old assigned female at with a history of ESRD on HD M/W/F (port in upper right chest), HFpEF, seizure disorder, insulin-dependent type 2 diabetes, subdural hematoma 05/04/2024, osteomyelitis s/p left 5th toe amp on 03/28/2024, anemia of chronic disease requiring frequent transfusions, asthma, HTN, and GERD presenting to the emergency department today with a low hemoglobin and fever. Patient states that she is having body pain but cannot provide more information / context. EMS states that the patient was picked up from [facility] for a low hemoglobin and fever. EMS states the patient has numerous wounds and was recently admitted here at [facility] [place]. Related Data Home Medications ?Medication ?Instructions ?Recorded ?Confirmed blood sugar diagnostic (FreeStyle 03/28/20 09/09/22 Lite Strips) blood-glucose meter (FreeStyle 03/28/20 09/09/22 [place] Lite kit) lancets 28 gauge (FreeStyle 03/28/20 09/09/22 Lancets) omeprazole 40 mg capsule,delayed 40 mg PO BID@0630,1630 10/02/21 05/23/24 release blood pressure test kit-large #1 ea 10/12/21 09/09/22 atorvastatin 80 mg tablet 80 mg PO DAILY 12/20/21 05/23/24 nebulizers 01/20/22 09/09/22 amlodipine 10 mg tablet 10 mg PO DAILY 05/29/22 05/23/24 lancets 33 gauge (TRUEplus Lancets) #100 ea 06/07/22 09/09/22 trazodone 50 mg tablet 100 mg PO BEDTIME PRN Sleep 06/07/22 05/23/24 cholecalciferol (vitamin D3) 50 50 mcg PO DAILY 11/24/22 05/23/24 mcg (2,000 unit) tablet ferrous gluconate 324 mg (38 mg 324 mg PO DAILY 11/24/22 05/23/24 iron) tablet acetaminophen 650 mg 650 mg PO Q8H PRN mild pain 03/22/24 05/23/24 tablet,extended release diclofenac sodium 1 % topical gel 2 g topical BEDTIME PRN Pain 03/22/24 05/23/24 losartan 100 mg tablet 100 mg PO BID 03/22/24 05/23/24 valproic acid 250 mg capsule 1,000 mg PO BID 03/22/24 05/23/24 furosemide 40 mg tablet 80 mg PO BID 05/04/24 05/23/24 gabapentin 100 mg capsule 200 mg PO DAILY 05/04/24 05/23/24 gabapentin 300 mg capsule 300 mg PO MOWEFR@1800 05/04/24 05/23/24 levetiracetam 500 mg tablet 500 mg PO MOWEFR@1800 05/04/24 05/23/24 lorazepam 0.5 mg tablet 0.5 mg PO DAILY PRN anxiety 05/04/24 05/23/24 sertraline 50 mg tablet 100 mg PO DAILY 05/04/24 05/23/24 Previous Rx's ?Medication ?Instructions ?Recorded phenytoin sodium extended 100 mg 100 mg PO TID #90 caps 11/03/23 capsule (Dilantin Extended) folic acid 1 mg tablet 1 mg PO DAILY #90 tabs 04/02/24 epoetin gabino-epbx 10,000 unit/mL 10,000 unit subcut MoWeFr@1645 #10 05/22/24 injection solution (Retacrit) mL insulin glargine 100 unit/mL 10 unit (0.1 mL) subcut BEDTIME 05/22/24 subcutaneous solution (Lantus #10 mL U-100 Insulin) oxycodone 5 mg tablet 5 mg PO Q4H PRN Pain, Severe (Pain 05/22/24 Scale 7-10) #30 tabs sodium thiosulfate 12.5 gram/100 13 g (104 mL) IV 3XW #100 mL 05/22/24 mL (125 mg/mL) intravenous solution vancomycin 500 mg intravenous 500 mg IV 3XW 05/22/24 solution Allergies Allergy/AdvReac Type Severity Reaction Status Date / Time Egg Derived Allergy Unknown Verified 05/23/24 09:14 Review of Systems 2 Review of Systems: Yes Other (patient is a poor historian) Constitutional: Constitutional: Reports fever(s) (reported by [facility] staff) Eyes: Eyes: Denies eye discharge ENT: Denies hoarseness and Denies lip swelling Cardiovascular: Cardiovascular: Denies Loss of Consciousness and Denies dyspnea Respiratory: Respiratory: Denies cough and Denies dyspnea Gastrointestinal: Gastrointestinal: Denies diarrhea and Denies vomiting Musculoskeletal: Comments: body pain Integumentary/Breasts: Comments: multiple wounds Psychiatric: Psychiatric: Reports as per HPI Endocrine: Endocrine: Reports as per HPI Hematologic/Lymphatic: Hematologic/Lymphatic: Reports as per HPI Allergic/Immunologic: Allergic/Immunologic: Reports as per HPI and Denies lip swelling PMFSH Past Medical History Attestation statement: The following information was validated with the patient. (all information validated with the patient's daughter / HCP) Source: old records reviewed, obtained from family (patient's daughter provided additional history and confirmed the history from [facility] + EMS) and nursing notes reviewed Medical History Eschar of heel ESRD (end stage renal disease) Generalized seizure Acute kidney injury CKD (chronic kidney disease) stage 3, GFR 30-59 ml/min CHF (congestive heart failure) Anemia Brain tumor (benign) Lower extremity edema Pneumonia Asthma Pulmonary nodule HLD (hyperlipidemia) Seizure Acute hypoxemic respiratory failure due to COVID-19 COVID-19 Kidney stone Depression Gastritis Diabetes Surgical History 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) H/O lithotripsy H/O ureteroscopy H/O cystoscopy S/P ureteral stent placement History of cholecystectomy H/O hernia repair Family History Family History Father CAD (coronary artery disease) Brother Lung cancer Sister Kidney stone Social History Social History Household Members: Children Household Members Other:: daughter Housing: House Are you a primary career information specialist to a significant other at home: No Do you presently have visiting nurse or other home services: Yes (daughter is equity sales assistant, vna 2x week.) Unable to assess alcohol history related to: Unknown Alcohol intake: former Comment: pt sleeping at this time Patient Tobacco Use Status: Never used Tobacco e-Cigarette/Vaping Use: Never Used Use of substances other than those prescribed or required for medical reasons: Unknown Advance Directives: Yes Advance Directives on File: Yes Advance Directives Date on File: 12/20/21 Do you have a plan to hurt others: No Plan service: No Current occupational status: unemployed Physical Exam ED Vital Signs: Vital Signs - 24 hr 05/23/24 09:12 05/23/24 10:22 05/23/24 11:25 Temperature 100.8 F H 100 F Pulse Rate 105 H 94 97 Respiratory Rate 18 18 21 H Blood Pressure 154/58 H 161/71 H 130/38 L Pulse Oximetry 97 94 100 Oxygen Delivery Method Room Air Room Air Room Air BMI result Body Mass Index 44.9 Const General: cooperative, alert and awake Nutritional Appearance: obese Orientation/consciousness: oriented to person and oriented to place Limitations: language barrier HENMT Head: Yes normal to inspection and Yes atraumatic Ears: hearing grossly normal bilaterally and external ears normal General nose exam: Normal external nose present, no nasal discharge noted and no epistaxis Face and sinus: Yes normal facial exam, No abrasion and No laceration Mouth: Normal oral and palatal mucosa present, no drooling and no muffled voice Eyes General: appearance normal, both eyes and all related structures Periorbital: periorbital findings normal Eyelids: Yes eyelids normal Conjunctivae: conjunctivae normal Pupils: Equal, round and reactive pupils present EOM: EOMs intact bilaterally Neck Neck: Yes normal visual inspection, Yes full ROM and Yes no lymphadenopathy Chest Chest palpation & inspection: normal inspection of the chest Resp Effort & Inspection: normal respiratory effort and able to speak in complete sentences GI Inspection: Yes normal to inspection Skin Other: Multiple wounds present - pictures below are in this order: R heel R lateral thigh L lateral lower leg L lateral thigh L foot Under leftt breast L gluteal fold Neuro General: oriented to person, oriented to place, moves all extremities and CN's II-XI intact bilaterally Cranial nerves: Yes Equal, round and reactive pupils present Extrem General: Yes normal to inspection, Yes full ROM and Yes capillary refill normal Psych Appearance: grossly normal Mental Status: mental status grossly normal Affect: normal affect Attitude: cooperative Thought process: Normal thought process present Thought content: Normal thought content present Insight: Good insight present (Psych) Medications Administered Discontinued Medications Generic Name Dose Route Start Last Admin Trade Name Aruna PRN Reason Stop Dose Admin Piperacillin Sod/Tazobactam 50 mls @ 100 mls/hr 05/23/24 09:53 05/23/24 11:26 Sod 3.375 gm/ Sodium Chloride IV 05/23/24 10:22 Infused ONCE ONE Infusion Vancomycin HCl 2,000 mg in 500 mls @ 250 mls/hr 05/23/24 10:15 05/23/24 12:28 Vancomycin/Ns IV 05/23/24 12:14 Infused ONCE ONE Infusion Acetaminophen 1,000 mg in 100 mls @ 400 mls/hr 05/23/24 10:20 05/23/24 10:42 Ofirmev IV 05/23/24 10:34 Infused ONCE ONE Infusion Morphine Sulfate 2 mg 05/23/24 11:16 05/23/24 11:27 Morphine Sulfate 2 Mg/Ml Cartridge IVPUSH 05/23/24 11:17 2 mg ONCE ONE Administration Protocol Medical Decision Making Medical Decision Making MDM Narrative: Patient is a 68 year old assigned female at with a history of ESRD on HD M/W/F (port in upper right chest), HFpEF, seizure disorder, insulin-dependent type 2 diabetes, subdural hematoma 05/04/2024, osteomyelitis s/p left 5th toe amp on 03/28/2024, anemia of chronic disease requiring frequent transfusions, asthma, HTN, and GERD presenting to the emergency department today with a low hemoglobin and fever. Patient's physical exam was as noted in the physical exam portion of this note. Patient's blood work showed a WBC count of 13.9, ESR >140, CRP of 37.41 and chronically elevated CR + BUN secondary to kidney disease. Patient's bilateral feet x-rays showed chronic left foot osteo. Patient's left tib fib x-ray was negative for osteo. Patient's bilateral hip x-rays were negative for osteo. I had initially obtained verbal consent from the patient's daughter / HCP for transfusion however, the patient's hemoglobin was >7 so she did not need transfusion at this time. I spoke with the hospitalist team to admit the patient however, they declined stating these issues are chronic and she is able to continue her 6 weeks of IV vancomycin while at [facility]. I spoke with the surgical team who agreed these issues are chronic and she does not need admission for them as long as she can continue to get her vancomycin infusion at [facility] and her wounds can be continued to be dressed wet to dry. I spoke with the case management team who confirmed that the patient is able to get her Vancomycin infusions 3x a week during her dialysis infusions. I explained my physical exam findings as well as all test results to the patient and the patient's daughter / HCP. I answered all questions asked by the patient's HCP / daughter. Patient received a dose of IV vancomycin while in the department as well as IV Tylenol. Patient's daughter / HCP verbalized agreement and understanding with this treatment plan and discharge back to [facility]. Differential Diagnosis Differential Diagnoses: The differential diagnosis associated with the presentation includes Acute on chronic cellulitis Chronic osteomyelitis Chronic wounds Fever Acute on chronic anemia CKD Admission/Observation Consideration of admission/observation: Escalation of care including admission/observation considered Attempted to admit the patient as noted in the MDM Rationale portion of this note. Admission declined by hospitalist and surgical services. Consult Healthcare Provider Management of the patient was discussed with: Hospitalist (spoke with the hospitalist team as noted in the MDM Rationale portion of this note. ) and Circuit Court Magistrate (spoke with the surgical team as noted in the MDM Rationale portion of this note. ) Lab Data [facility] Lab Attestation statement: I reviewed the patient's lab results. My interpretation of these results are in the MDM Rationale portion of this note. 05/23/24 09:39 05/23/24 10:11 Labs: Lab Results 05/23/24 05/23/24 05/23/24 Range/Units 09:39 09:42 10:07 WBC 13.9 H (4.8-10.8) X10*3/uL RBC 2.48 L (4.20-5.50) X10*6/uL Hgb 7.4 L (12.0-16.0) g/dl Hct 21.6 L (37.0-47.0) % MCV 87.1 (80.0-98.0) fL MCH 29.8 (27.0-33.0) pg MCHC 34.3 (31.0-35.0) g/dl RDW 19.7 H (11.0-16.0) % Plt Count TNP MPV TNP Immature Gran % (Auto) 3.2 H (0.0-0.4) % Neut % (Auto) 75.3 H (45-73) % Lymph % (Auto) 10.8 L (20-40) % [place] % (Auto) 9.0 (2-11) % Eos % (Auto) 1.2 (0-4) % Baso % (Auto) 0.5 (0-2) % Lymph # (Auto) 1.5 (1.2-4.9) X10*3/uL [place] # (Auto) 1.3 H (0.1-1.2) X10*3/uL Eos # (Auto) 0.2 (0.0-0.4) X10*3/uL Baso # (Auto) 0.1 (0.0-0.2) X10*3/uL Abs Immat Gran (auto) 0.45 H (0.00-0.03) X10*3/uL Absolute Neuts (auto) 10.5 H (2.0-8.3) x10*3/uL Absolute Nucleated RBC 0.000 (0.0-0.012) X10*3/uL Nucleated RBC % (auto) 0.0 (0.0-0.2) /100WBC ESR (0-20) MM/HR Hold Purple Top SEE NOTE Hold Blue Top SEE NOTE Sodium (135-145) mmol/L Potassium (3.3-5.1) mmol/L Chloride (96-108) mmol/L Carbon Dioxide (22-29) mmol/L Anion Gap (12-20) BUN (9-16) mg/dL Creatinine (0.5-1.4) mg/dL Estim Creat Clear Calc Estimated GFR Random Glucose (60-115) mg/dL Lactic Acid (0.5-2.0) mmol/L Calcium (8.4-10.2) mg/dL Magnesium (1.6-2.6) mg/dL Total Bilirubin (0.0-1.0) mg/dL Direct Bilirubin (0.0-0.5) mg/dL AST (5-31) U/L ALT (0-31) U/L Alkaline Phosphatase (39-117) U/L C-Reactive Protein (< or = 0.50) mg/dL Total Protein (6.5-8.0) g/dL Albumin (3.5-5.0) g/dL Influenza Type A (PCR) (Negative) Influenza Type B (PCR) (Negative) RSV RNA Qual (PCR) (Negative) SARS-CoV-2 RNA (RT-PCR) (Negative) Blood Type O Positive Antibody Screen NEGATIVE 05/23/24 05/23/24 Range/Units 10:11 12:29 WBC (4.8-10.8) X10*3/uL RBC (4.20-5.50) X10*6/uL Hgb (12.0-16.0) g/dl Hct (37.0-47.0) % MCV (80.0-98.0) fL MCH (27.0-33.0) pg MCHC (31.0-35.0) g/dl RDW (11.0-16.0) % Plt Count MPV Immature Gran % (Auto) (0.0-0.4) % Neut % (Auto) (45-73) % Lymph % (Auto) (20-40) % [place] % (Auto) (2-11) % Eos % (Auto) (0-4) % Baso % (Auto) (0-2) % Lymph # (Auto) (1.2-4.9) X10*3/uL [place] # (Auto) (0.1-1.2) X10*3/uL Eos # (Auto) (0.0-0.4) X10*3/uL Baso # (Auto) (0.0-0.2) X10*3/uL Abs Immat Gran (auto) (0.00-0.03) X10*3/uL Absolute Neuts (auto) (2.0-8.3) x10*3/uL Absolute Nucleated RBC (0.0-0.012) X10*3/uL Nucleated RBC % (auto) (0.0-0.2) /100WBC ESR > 140 H (0-20) MM/HR Hold Purple Top Hold Blue Top Sodium 145 (135-145) mmol/L Potassium 4.0 (3.3-5.1) mmol/L Chloride 107 (96-108) mmol/L Carbon Dioxide 18 L (22-29) mmol/L Anion Gap 24 H (12-20) BUN 33 H (9-16) mg/dL Creatinine 3.76 H (0.5-1.4) mg/dL Estim Creat Clear Calc 15.8 Estimated GFR 12 Random Glucose 82 (60-115) mg/dL Lactic Acid 0.8 (0.5-2.0) mmol/L Calcium 8.8 D (8.4-10.2) mg/dL Magnesium 1.8 (1.6-2.6) mg/dL Total Bilirubin 0.2 (0.0-1.0) mg/dL Direct Bilirubin < 0.2 (0.0-0.5) mg/dL AST 26 (5-31) U/L ALT < 6 (0-31) U/L Alkaline Phosphatase 107 (39-117) U/L C-Reactive Protein 37.41 H (< or = 0.50) mg/dL Total Protein 6.7 (6.5-8.0) g/dL Albumin 2.6 L (3.5-5.0) g/dL Influenza Type A (PCR) NEGATIVE (Negative) Influenza Type B (PCR) NEGATIVE (Negative) RSV RNA Qual (PCR) NEGATIVE (Negative) SARS-CoV-2 RNA (RT-PCR) NEGATIVE (Negative) Blood Type Antibody Screen Independent Interpretation I performed an independent interpretation of an: Plain X-Ray Interpretation: My interpretation is in agreement with the radiologist's impression of these imaging studies. L EXAMINATION: XR FOOT, BILATERAL 3V CLINICAL INFORMATION: 5th toe amp wound, concern for osteo to the foot COMPARISON: None available. TECHNIQUE: AP, lateral, and oblique views of both feet. FINDINGS: Left Foot: There has been amputation of the fifth digit at the distal metatarsal level. Soft tissue defect overlying. Mild irregularity of the osteotomy site versus resorptive changes of the entire fifth metatarsal head. There is diffuse osteopenia. There is no acute fracture or malalignment. There are degenerative changes in the interphalangeal joints, and mild changes at the MTP joint. Hammertoe deformities. Prominent plantar and dorsal calcaneal spurring. Soft tissues otherwise demonstrate diffuse vascular calcification. No subcutaneous emphysema is seen in the midfoot or hindfoot. Right Foot: Diffuse osteopenia. No fracture or malalignment. Hammertoe deformities. Deformity of the fifth digit proximal phalanx, chronic, possibly based on healed osteomyelitis. No definite radiographic changes of acute osteomyelitis. Small plantar and dorsal calcaneal spurs. Soft tissue ulceration overlying the heel region. These vascular calcifications. No gross subcutaneous emphysema. XR/XR Foot Eugenio 3V IMPRESSION: Left Foot: 1. Fifth digit amputation. Soft tissue defect overlying the amputation site. There is either irregularity of the osteotomy site at the metaphysis of the fifth metatarsal, or there is osteolysis of the fifth metatarsal head. Both are concerning for osteomyelitis. 2. Diffuse osteopenia. Vascular calcifications. Right Foot: 1. Soft tissue ulceration in the heel region without definite radiographic changes of osteomyelitis. No acute bony abnormality. 2. Diffuse osteopenia. Vascular calcifications. Electronically signed by: Rupesh Araya MD 05/23/2024 11:32 AM EDT Dictated By: Rupesh Araya MD Signed By: Electronically signed by Rupesh Araya MD 05/23/24 1132 EXAMINATION: XR BILATERAL HIPS WITH AP PELVIS CLINICAL INFORMATION: large hip wound, concern for osteo COMPARISON: None available. TECHNIQUE: AP view of the pelvis and single views of each hip were obtained. FINDINGS: Study is very limited secondary to patient habitus. Limited visualization of the bony structures. Within confines of limitations, no fracture, dislocation, or suspicious bone lesion. No definite radiographic changes of osteomyelitis. There are mild to moderate changes of arthritis in both hip joints. Diffuse vascular calcifications in the soft tissues. Soft tissue defect in the left inferolateral hip region. No subcutaneous emphysema. XR/XR hip BI w PEL1V IMPRESSION: Limited exam. No acute bony abnormalities allowing for limitations. Soft tissue defect in the left inferolateral hip region. No subcutaneous emphysema. Electronically signed by: Rupesh Araya MD 05/23/2024 11:21 AM EDT Dictated By: Rupesh Araya MD Signed By: Electronically signed by Rupesh Araya MD 05/23/24 1121 EXAMINATION: XR TIBIA AND FIBULA, LEFT CLINICAL INFORMATION: Large left lateral wound, concern for osteomyelitis. COMPARISON: None available. TECHNIQUE: AP and lateral views of the left tibia and fibula were obtained. FINDINGS: Diffuse osteopenia. No fracture, dislocation, or suspicious bone lesion. No focal periostitis or lytic changes to suggest radiographic changes of osteomyelitis. Soft tissues demonstrate diffuse vascular calcifications but are otherwise normal. XR/XR tibia fibula LT 2V IMPRESSION: Osteopenia without acute bony lesion. No radiographic evidence of osteomyelitis. Diffuse vascular calcifications. Electronically signed by: Rupesh Araya MD 05/23/2024 11:19 AM EDT Dictated By: Rupesh Araya MD Signed By: Electronically signed by Rupesh Araya MD 05/23/24 1119 EXAMINATION: XR CHEST CLINICAL INFORMATION: fever, weakness COMPARISON: None available. TECHNIQUE: Frontal view of the chest was obtained. FINDINGS: Right-sided tunneled dialysis catheter in place with tip in the right atrium. There is cardiomegaly. Mediastinal and hilar contours otherwise normal. Lungs demonstrate low lung volumes. Right perihilar haziness. There is diffuse small airway thickening throughout both lungs with mild increase of the background interstitial markings. No pneumothorax or effusion. No focal osseous or soft tissue abnormality. XR/XR chest 1V IMPRESSION: 1. Dialysis catheter in good position. 2. Cardiomegaly. 3. Right perihilar haziness with diffuse small airway thickening throughout both lungs. Electronically signed by: Rupesh Araya MD 05/23/2024 12:58 PM EDT Dictated By: Rupesh Araya MD Signed By: Electronically signed by Rupesh Araya MD 05/23/24 1258 Radiology Impression Discussion of test interpretation with radiology: I have reviewed the radiologist's reading. Independent Historian Clinical information obtained from an independent historian. History obtained from or confirmed by: EMS (EMS provided additional history and confirmed the history provided by [facility] staff.) and Other (patient's daughter / HCP provided additional history and confirmed the history provided by the [facility] staff.) Chronic Conditions Patient?s care impacted by: Diabetes Critical Care Time Critical Care Time Critical Care Time: Yes Total Critical Care Time: 56 Attestation: I spent 56 minutes of Critical Care Time with this patient. This does not include time spent on separately reported billable procedures. Discharge Plan Discharge Clinical Impression: Chronic wound, Chronic anemia Patient Disposition: [facility] Transfer Details: Back to [facility] Instructions: Anemia (ED) Additional Instructions: Continue the vancomycin infusions as direct. Follow up with your primary care provider and the general surgeon. Return to the emergency department immediately if your symptoms worsen or if you develop any numbness, tingling, dizziness, shortness of breath, difficulty breathing, chest pain, blurry vision, loss of vision, nausea, vomiting, abdominal pain, fever, chills, back pain, or any other complaints. Continuar con las infusiones de vancomicina tiffanie directo. Arina un seguimiento con vila m?dico de cabecera y el cirujano general. Vuelva al servicio de urgencias inmediatamente si skyla s?ntomas empeoran o si presenta entumecimiento, hormigueo, mareos, falta de aliento, dificultad para respirar, dolor tor?cico, visi?n borrosa, p?rdida de visi?n, n?useas, v?mitos, dolor abdominal, fiebre, escalofr?os, dolor de espalda o cualquier otra molestia. Prescriptions: No Action (DME) FreeStyle Lite Strips Strip MISCELLANEOUS QID (DME) blood-glucose meter [FreeStyle [place] Lite] Kit MISCELLANEOUS BID (DME) lancets [FreeStyle Lancets] 28 gauge misc 1 gauge topical BID omeprazole 40 mg capsule,delayed release(DR/EC) 40 mg PO BID@0630,1630 atorvastatin 80 mg tablet 80 mg PO DAILY amlodipine 10 mg tablet 10 mg PO DAILY phenytoin sodium extended [Dilantin Extended] 100 mg Capsule 100 mg PO TID Qty: 90 2RF ferrous gluconate 324 mg (38 mg iron) tablet 324 mg PO DAILY cholecalciferol (vitamin D3) 50 mcg (2,000 unit) Tablet 50 mcg PO DAILY valproic acid 250 mg capsule 1,000 mg PO BID acetaminophen 650 mg tablet extended release 650 mg PO Q8H PRN (Reason: mild pain) losartan 100 mg tablet 100 mg PO BID diclofenac sodium 1 % gel 2 g topical BEDTIME PRN (Reason: Pain) Rx Instructions: APPLY 2 GRAMS TOPICALLY TO FEET AT BEDTIME NEEDED folic acid 1 mg Tablet 1 mg PO DAILY Qty: 90 0RF furosemide 40 mg tablet 80 mg PO BID lorazepam 0.5 mg tablet 0.5 mg PO DAILY PRN (Reason: anxiety) gabapentin 300 mg capsule 300 mg PO MOWEFR@1800 Rx Instructions: after dialysis sertraline 50 mg tablet 100 mg PO DAILY gabapentin 100 mg capsule 200 mg PO DAILY levetiracetam 500 mg tablet 500 mg PO MOWEFR@1800 Rx Instructions: give after dialysis Retacrit 10,000 unit/mL Solution 10,000 unit subcut MoWeFr@1645 Qty: 10 0RF insulin glargine [Lantus U-100 Insulin] 100 unit/mL Solution 10 unit subcut BEDTIME Qty: 10 0RF oxycodone 5 mg Tablet 5 mg PO Q4H PRN (Reason: Pain, Severe (Pain Scale 7-10)) Qty: 30 0RF Rx Instructions: Partial Fill upon patient request. sodium thiosulfate 12.5 gram/100mL (125 mg/mL) solution 13 g IV 3XW Qty: 100 0RF Rx Instructions: dialysis days vancomycin 500 mg recon soln 500 mg IV 3XW (DME) blood pressure test kit-large Kit See Rx Instructions .ROUTE DAILY Qty: 1 Rx Instructions: As directed (DME) nebulizers [facility] See Rx Instructions .Route Rx Instructions: As directed trazodone 50 mg tablet 100 mg PO BEDTIME PRN (Reason: Sleep) (DME) lancets [TRUEplus Lancets] 33 gauge misc See Rx Instructions .ROUTE BID Qty: 100 Rx Instructions: As directed Referrals: Lucrecia Teixeira MD [Primary Care Provider] - Print Language: Portuguese
[2024-05-23 09:59] LABS: Basophils Absolute Auto 0.1 X10*3/uL (0.0-0.2); Basophils Percent Auto 0.5 % (0-2); Eosinophils Absolute Auto 0.2 X10*3/uL (0.0-0.4); Eosinophils Percent Auto 1.2 % (0-4); Hematocrit 21.6 % (37.0-47.0); Hemoglobin 7.4 g/dl (12.0-16.0); Imm Gran Abs Auto 0.45 X10*3/uL (0.00-0.03); Imm Gran Pct Auto 3.2 % (0.0-0.4); Lymphocytes Absolute Auto 1.5 X10*3/uL (1.2-4.9); Lymphocytes Percent Auto 10.8 % (20-40); Mean Corpuscular HGB Conc 34.3 g/dl (31.0-35.0); Mean Corpuscular Hemoglobin 29.8 pg (27.0-33.0); Mean Corpuscular Volume 87.1 fL (80.0-98.0); Monocytes Absolute Auto 1.3 X10*3/uL (0.1-1.2); Neutrophils Absolute Auto 10.5 x10*3/uL (2.0-8.3); Neutrophils Percent Auto 75.3 % (45-73); Red Blood Count 2.48 X10*6/uL (4.20-5.50); Red Cell Distribution Width 19.7 % (11.0-16.0); White Blood Count 13.9 X10*3/uL (4.8-10.8)
--- NOTE | 2024-05-23 10:11 | PC.NURSE ---
pt biba from [facility] s/p having routine labs drawn this am displaying low H&H (6.5 & 19.2). 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 wounds noted throughout per EMS. upon ED arrival - draw string knotter utilized. pt alert and oriented to self. vss and up to date aside from being febrile. nsr on the cardiac cath rn. pt reporting generalized body pain d/t multiple staged wounds throughout entire body. wounds noted to left pinky toe, left calf, left thigh, right heel, and right thigh. multiple stages noted. some w/ tunneling, some open w/ yellow drainage. foul smelling odor noted throughout. raw skin noted to pannus as well as underneath breast bilaterally. see provider report for photos of wounds. pt is a difficult stick. multiple attempts made when obtaining IV access. 22gIV placed in the left hand - labs obtained/sent to lab. pt currently on RA w/o difficulty. no sob/wob noted. respirations even/unlabored. plan of care ongoing. call flannery placed within reach.
[2024-05-23 10:20] LABS: MANUAL DIFF FLAG SCAN
[2024-05-23] MEDS: Piperacillin Sodium/Tazobactam 3.375 GM in 0.9 % Sodium Chloride 50 ML IV (10:27)
[2024-05-23] MEDS: Acetaminophen 1,000 MG/100 ML PIGGYBACK 400 MG IV (10:27)
--- NOTE | 2024-05-23 10:27 | PC.NURSE ---
medication administered per provider order. effectiveness pending.
[2024-05-23] MEDS: vancomycin/NS 2,000 MG/500 ML PLAST..BAG 250 MG IV (10:28)
[2024-05-23 10:32] LABS: Lactic Acid 0.8 mmol/L (0.5-2.0)
[2024-05-23 10:42] LABS: C Reactive Protein 37.41 mg/dL (< or = 0.50)
--- NOTE | 2024-05-23 10:42 | PC.NURSE ---
pt to xray at this time.
[2024-05-23 10:51] LABS: Alanine Aminotransferase < 6 U/L (0-31); Albumin Level 2.6 g/dL (3.5-5.0); Alkaline Phosphatase 107 U/L (39-117); Anion Gap 24 (12-20); Aspartate Amino Transferase 26 U/L (5-31); Bilirubin Direct < 0.2 mg/dL (0.0-0.5); Bilirubin Total 0.2 mg/dL (0.0-1.0); Blood Urea Nitrogen 33 mg/dL (9-16); Calcium 8.8 mg/dL (8.4-10.2); Carbon Dioxide 18 mmol/L (22-29); Chloride 107 mmol/L (96-108); Creatinine Clr Calc Pharmacy 15.8; Estimated Glomerular Filt Rate 12; Glucose Random 82 mg/dL (60-115); Magnesium 1.8 mg/dL (1.6-2.6); Sodium 145 mmol/L (135-145); Total Protein 6.7 g/dL (6.5-8.0)
[2024-05-23] MEDS: Morphine Sulfate 2 MG/ML CARTRIDGE IVPUSH (11:27)
--- NOTE | 2024-05-23 11:30 | PC.NURSE ---
pt no longer febrile s/p medication administration. vitals otherwise remain stable/up to date. nsr on the ops analyst. pt remains on RA w/o difficulty. plan of care ongoing. call flannery placed within reach.
[2024-05-23 11:32] LABS: Erythrocyte Sedimentation Rate > 140 MM/HR (0-20)
--- NOTE | 2024-05-23 12:10 | PC.NURSE ---
pt premedicated prior to wound care. all wounds tended to and covered w/ wet to dry dressings. xeroform also added to affected areas. all affected areas dated/initialed. pt turned/reposition to comfort.
--- NOTE | 2024-05-23 12:37 | PHA.MEDREC ---
Pharmacy Consult ? Medication Reconciliation Pharmacy has completed the medication reconciliation. Pt was here yesterday, utilized medical record to confirm home meds she was discharged on.
--- OUTSIDE RECORDS SUMMARY | 2024-05-23 12:40 | XMS_ITS | Encounter Summary ---
Author Organization [email or web address] Address [address] [place] [address] 7 [place] [address] Care Team Providers Care Air Vice Marshal Name Role Phone Lucrecia Teixeira MD Primary Care Provider [phone] Reason for Visit * Reason Onset Date Comments Med Refill 03/06/2024 Encounter Details Date Type Department Care Team ([facility] st Contact Info) Description 03/06/2024 Refill [facility] MED[facility]INE [address] [place] [address] Lucrecia Teixeira MD [address] [place] [address] Essential (primary) hypertension Social History Tobacco Use Types Packs/Day Years Used Date Smoking Tobacco: Never Passive Smoke Exposure: Never Smokeless Tobacco: Never Alcohol Use Standard Drinks/Week Comments Never 0 (1 standard drink = 0.6 oz pur e alcohol) Alcohol Answer Date Recorded Frequency of Alcohol Consumption Not on file 11/16/2023 Average Number of Drinks Not on file 024 Frequency of Binge Drinking Not on file 04/2023 Score 0 11/16/2023 Depression Answer Date Recorded Patient Health Questionnaire-9 Score 0 01/20/2023 Patient Health Questionnaire-9 Score 0 01/20/2023 Last PHQ-9: Questionnaire Data Not on file 1 03/23/2022 Housing Stability Answer Date Recorded What is your housing situation today? I have agusitna rodriges 07/12/[address] you li ve. Do you have problems with any of the following? None of the above 07/12/2023 Food Insecurity Answer Date Recorded Within the past 12 months, y ou worried that your food would run out before you got money to buy more: Never True 07/12/2023 Within the past 12 months,th e food you bought just didn't last and you didn't have enough money to get more: Never True Transportation Answer Date Recorded In the past 12 months, has l ack of transportation kept you from medical appts, meetings, work or from getting things needed for daily living? No 07/12/2023 Utilities Answer Date Recorded In the past 12 months, has t he [employer], gas, oil or water company threatened to shut off services in your home? Yes 07/12/2023 Depression Answer Date Recorded Patient Health Questionnaire-2 Score 0 01/20/2023 Comments No Sex and Gender Information Value Date Recorded Sex Assigned at Female 12/13/2021 10:36 AM EDT Legal Sex Female 10:36 AM EDT Gender Identity Female 12/13/2021 10:36 AM EDT Sexual Orientation Choose not to disclose 2021 10:36 AM EDT documented as of this encounter Plan of Treatment Upcoming Encounters Date Type Department Care Team (Late st Contact Info) Description 07/15/2024 2:15 PM EDT Office Visit [facility] MED[facility]INE [address] [place] [address] Lucrecia Teixeira MD [address] [place] [address] documented as of this encounter Visit Diagnoses Diagnosis Essential (primary) hypertension Unspecified essential hypertension documented in this encounter Additional Health Concerns Assessment Noted Time PHQ-9 Depression Total Score: 0 01/21/20 23 3:26 PM EST documented as of this encounter Care Teams Air Vice Marshal Relationship Specialty Start Date End Date Lucrecia Teixeira MD [address] [place], [place] [phone] PCP - General Family Medicine [facility] documented as of this encounter
--- OUTSIDE RECORDS SUMMARY | 2024-05-23 12:40 | XMS_ITS | Encounter Summary ---
Author Organization [employer] Address [address] [facility] 7 [place] [address] Care Team Providers Care Cell Builder Name Role Phone Lucrecia Teixeira MD Primary Care Provider [phone] Reason for Visit * Reason Onset Date Comments Med Refill 03/06/2024 Encounter Details Date Type Department Care Team ([facility] Contact Info) Description 03/06/2024 Telephone [facility] MEDICINE [address] [place] [address] Lucrecia Teixeira MD [address] [place], [place] [phone] Med Refill Social History Tobacco Use Types Packs/Day Years [...] is your housing situation today? I have agustina rodriges 07/12/[address] you [...] the past 12 months, has t he [employer], [employer], oil or water [employer] threatened to shut off services in your [...] AM EDT documented as of this encounter Miscellaneous Notes * Telephone Encounter - Fior Joseph LPN - 03/06/2024 11:54 AM EST Medication is prescribed by Hernan Meehan. * Telephone Encounter - [place] - 03/06/2024 11:52 AM EST TC from pt requesting medication refill. Medications needing refill: metOLazone (Zaroxolyn) 2.5 MG tablet To be sent to: [facility] - [place], [place] - [address] [facility] documented in this encounter Plan of Treatment Upcoming Encounters Date Type Department Care Team (Late st Contact Info) Description 07/15/2024 2:15 PM EDT Office Visit [facility] MED[facility]INE [address] [place] [address] Lucrecia Teixeira MD [address] [place] [address] documented as of this encounter Visit Diagnoses Not on filedocumented in this encounter Additional Health Concerns Assessment Noted Time PHQ-9 Depression Total Score: 0 01/21/20 23 3:26 PM EST documented as of this encounter Care Teams Cell Builder Relationship Specialty Start Date End Date Lucrecia Teixeira MD [address] [place] [address] PCP - General Family Medicine 07/12/22 [facility] 04/06/24 documented as of this encounter
--- OUTSIDE RECORDS SUMMARY | 2024-05-23 12:40 | XMS_ITS | Encounter Summary ---
Author Organization [employer] Address [address] [facility] 7 [place] [address] Care Team Providers Care Clinic Md Associate Name Role Phone Lucrecia Teixeira MD Primary Care Provider [phone] Reason for Visit * Reason Comments Med Refill Encounter Details Date Type Department Care Team ([facility] Contact Info) Description 02/02/2024 Refill [facility] MEDICINE [address] [place] [address] Lucrecia Teixeira MD [address] [place] [address] Social History Tobacco Use Types Packs/Day Years [...] the past 12 months, has t he electric, gas, oil or water company threatened to [...] Description 07/15/2024 2:15 PM EDT Office Visit [facility] MEDICINE [address] [place] [address] Lucrecia Teixeira MD [address] [place] [address] documented as of this encounter Visit Diagnoses Not on filedocumented in this encounter Additional Health Concerns Assessment Noted Time PHQ-9 Depression Total Score: 0 01/21/20 23 3:26 PM EST documented as of this encounter Care Teams Clinic Md Associate Relationship Specialty Start Date End Date Lucrecia Teixeira MD [address] [place] [id number] PCP - General Family Medicine 07/12/22 [facility] 04/06/24 documented as of this encounter
--- OUTSIDE RECORDS SUMMARY | 2024-05-23 12:40 | XMS_ITS | Encounter Summary ---
Author Organization [employer] Address [address] [facility] 7 [place] [address] Care Team Providers Care Flour Mixer Name Role Phone Lucrecia Teixeira MD Primary Care Provider [phone] Reason for Visit * Reason Comments Med Refill Encounter Details Date Type Department Care Team ([facility] Contact Info) Description 02/19/2024 Refill [facility] MEDICINE [address] [place] [address] Lucrecia Teixeira MD [address] [place] [address] Social History Tobacco Use Types Packs/Day Years [...] Description 07/15/2024 2:15 PM EDT Office Visit [facility] [address] [place] [address] Lucrecia Teixeira MD [address] [place] [address] documented as of this encounter Visit Diagnoses Not on filedocumented in this encounter Additional Health Concerns Assessment Noted Time PHQ-9 Depression Total Score: 0 01/21/20 23 3:26 PM EST documented as of this encounter Care Teams Flour Mixer Relationship Specialty Start Date End Date Lucrecia Teixeira MD [address] [place] [id number] PCP - General Family Medicine 07/12/22 [facility] 04/06/24 documented as of this encounter
--- OUTSIDE RECORDS SUMMARY | 2024-05-23 12:40 | XMS_ITS | Encounter Summary ---
Author Organization [employer] Address [address] [facility] 7t [place] [address] Care Team Providers Care Filters Assembler Name Role Phone Lucrecia Teixeira MD Primary Care Provider [phone] Encounter Details Date Type Department Care Team ([facility] st Contact Info) Description 02/16/2024 Orders Only [facility] MEDICINE [address] [place], [place] [phone] Lucrecia Teixeira MD [address] [place] [address] Social History Tobacco Use Types Packs/Day Years [...] Description 07/15/2024 2:15 PM EDT Office Visit [facility] MEDICINE [address] [place] [address] Lucrecia Teixeira MD [address] [place] [address] documented as of this encounter Visit Diagnoses Not on filedocumented in this encounter Additional Health Concerns Assessment Noted Time PHQ-9 Depression Total Score: 0 01/21/20 23 3:26 PM EST documented as of this encounter Care Teams Filters Assembler Relationship Specialty Start Date End Date Lucrecia Teixeira MD [address] [place] [id number] PCP - General Family Medicine 07/12/22 [facility] HENDRICKS 04/06/24 documented as of this encounter
--- OUTSIDE RECORDS SUMMARY | 2024-05-23 12:40 | XMS_ITS | Clinical Summary ---
Author Organization [employer] Address [address] [place] [address] [address] [place] [address] Care Team Providers Care Digital Research Analyst Name Role Phone Lucrecia Teixeira MD Primary Care Provider [phone] Allergies Active Allergy Reactions Criticality Noted Date Comments Egg-Derived Products Unknown 07/09/2019 Other reaction(s): Vomiting Levetiracetam 12/11/2023 Medications Proventil HFA 108 (90 Base) MCG/ACT inhaler INHALE 2 PUFFS BY MOUTH EVERY 4 TO 6 HOURS NEEDED 11/26/19 22 Active Spacer/Aero-Hol ding Chambers (OptiChamber Sonya) misc USE WITH INHALER EVERY 6 HOURS NEEDED 12/28/19 22 Active Blood Pressure Monitoring (Omron 3 Series BP Monitor) device USE TO CHECK BLOOD PRESSURE DAILY DIRECTED 09/24/19 22 Active Breo Ellipta 100-25 MCG/ACT aerosol powder INHALE 1 PUFF EVERY DAY AT THE SAME TIME 01/21/20 22 Active Sure Comfort Pen [place] 31G X 5 MM miscIndications :Type 2 diabetes mellitus with hyperglycemia, with long-term current use of insulin (CMS/HCC) USE FIVE TIMES DAILY BEFORE MEALS DIRECTED 150 each 11 04/08/19 23 Active liver oil-zinc oxide (Desitin) 40 % ointmentIndicat ions:Pressure injury of sacral region, stage 1 Apply topically if needed for irritation. 56 g 12/10/19 23 Active Blood Glucose Monitoring Suppl (ONE TOUCH ULTRA 2) w/Device kitIndications: Type 2 diabetes mellitus with peripheral angiopathy (CMS/HCC) 1 kit 3 times daily. 1 kit 12/10/19 23 Active ketorolac (Acular) 0.5 % ophthalmic solution PLACE 1 DROP IN THE AFFECTED EYE THREE TIMES DAILY DIRECTED. START 2 DAYS BEFORE SURGERY AND TAPER DOWN DIRECTED 02/24/19 24 Active albuterol (2.5 MG/3ML) 0.083% nebulizer solution INHALE 1 AMPULE USING A NEBULIZER THREE TIMES DAILY NEEDED SHORTNESS OF BREATH (for asthma) 90 mL 5 03/31/19 24 Active Aspirin Adult Low Strength 81 MG EC tabletIndicatio ns:Transient cerebral ischemic attack, unspecified TAKE 1 TABLET BY MOUTH EVERY MORNING. 90 tablet 3 06/19/19 24 Active ferrous gluconate (Fergon) 324 (38 Fe) MG tabletIndicatio ns:Anemia due to stage 4 chronic kidney disease (CMS/HCC) TAKE 1 TABLET BY MOUTH DAILY WITH BREAKFAST 90 tablet 3 06/19/19 24 Active Diclofenac Sodium 1 % gel APPLY 2 GRAMS TOPICALLY TO FEET AT BEDTIME NEEDED 100 g 3 10/13/19 24 Active insulin aspart, with niacinamide, (Fiasp FlexTouch) 100 UNIT/ML injection Inject 6-8 Units under the skin with breakfast, with lunch, and with evening meal. 10 mL 8 10/13/19 24 025 Active OneTouch Ultra Test test stripIndication s:Type 2 diabetes mellitus with peripheral angiopathy (CMS/HCC) USE TO TEST BLOOD SUGAR THREE TIMES DAILY 100 strip 11 11/06/19 24 Active valproic acid (Depakene) 250 MG capsule TAKE 4 CAPSULES BY MOUTH TWICE A DAY 11/03/19 24 Active amLODIPine (Norvasc) 10 MG tabletIndicatio ns:Essential (primary) hypertension Take 1 tablet (10 mg) by mouth in the morning. 90 tablet 3 12/13/19 24 Active lidocaine (Lidoderm) 5 % patch Apply 1 patch topically Once per day. Remove & discard patch within 12 hours or as directed by . 30 patch 6 12/13/19 24 Active losartan (Cozaar) 100 MG tabletIndicatio ns:Essential hypertension,Ca rdiorenal syndrome with renal failure Take 1 tablet (100 mg) by mouth 2 times daily. 180 tablet 3 12/13/19 24 025 Active atorvastatin (Lipitor) 80 MG tabletIndicatio ns:Transient cerebral ischemic attack, unspecified TAKE 1 TABLET BY MOUTH EVERY DAY 90 tablet 4 01/03/20 24 Active OneTouch UltraSoft 2 Lancets miscIndications :Type 2 diabetes mellitus with peripheral angiopathy (CMS/HCC) USE TO TEST BLOOD SUGAR THREE TIMES DAILY 100 each 11 02/06/20 24 Active omeprazole (PriLOSEC) [address] [place] ons:Gastroesoph ageal reflux disease, unspecified whether esophagitis present TAKE 1 CAPSULE BY MOUTH BEFORE BREAKFAST AND BEFORE DINNER 180 capsule 3 02/08/20 24 Active phenytoin ER (Dilantin) 100 MG capsule Take 1 capsule (100 mg) by mouth 3 times daily. 270 capsule 3 02/15/19 25 Active sodium bicarbonate 650 MG tablet Take 1 tablet (650 mg) by mouth 2 times daily. 180 tablet 3 02/15/19 25 026 Active acetaminophen (Tylenol 8 Hour) 650 MG ER tablet Take 1 tablet by mouth every 8 (eight) hours if needed for mild pain. DO NOT BREAK, CRUSH, DISSOLVE OR CHEW 04/17/19 25 Active insulin glargine (Basaglar KwikPen) 100 UNIT/ML pen Inject 10 Units under the skin at bedtime. Active gabapentin (Neurontin) 100 MG capsule Take 2 capsules (200 mg) by mouth Once per day. 180 capsule 3 04/24/19 25 026 Active gabapentin (Neurontin) 300 MG capsule Take 1 capsule (300 mg) by mouth every other day. After dialysis 90 capsule 3 04/24/19 25 027 Active LORazepam (Ativan) 0.5 MG tablet Take 1 tablet (0.5 mg) by mouth if needed each day for anxiety (prior to dialysis). 12 tablet 04/24/19 25 Active levETIRAcetam (Keppra) 500 MG tablet Take 1 tablet (500 mg) by mouth Once per day. 90 tablet 3 04/26/19 25 Active levETIRAcetam (Keppra) 500 MG tablet Take 1 tablet (500 mg) by mouth 3 (three) times a week. After dialysis 36 tablet 4 04/27/19 25 026 Active traZODone (Desyrel) 50 MG tablet TAKE 1 TABLET BY MOUTH AT BEDTIME 90 tablet 1 04/30/19 25 Active traZODone (Desyrel) 50 MG tablet TAKE 1 TABLET BY MOUTH EVERY DAY AT BEDTIME 90 tablet 1 10/30/19 24 025 Discontinued metOLazone (Zaroxolyn) 2.5 MG tablet Take 2.5 mg by mouth Once per day. 12/11/19 24 025 Discontinued(Th erapy completed) zolpidem (Ambien) 5 MG tablet Take 1 tablet (5 mg) by mouth if needed at bedtime for sleep. 30 tablet 12/13/19 24 025 Discontinued(Th erapy completed) levETIRAcetam (Keppra) 500 MG tablet Take 1 tablet (500 mg) by mouth 2 times daily. 180 tablet 3 02/15/19 25 025 Discontinued(Re order (will not trigger notification to Pharmacy)) Active Problems Problem Noted Date Diagnosed Date Hospital discharge follow-up 04/25/2024 Sacral decubitus ulcer, stage II 04/25/2024 Uremic peripheral polyneuropathy 04/25/2024 Assessment & Plan (04/25/2024 10:03 AM EDT): Gabapentin 200mg daily, plus 300mg post dialysis Preop examination 11/16/2023 Assessment & Plan (11/16/2023 2:32 PM EDT): Patient is not clear for surgical intervention at this time ESBL (extended spectrum beta -lactamase) producing bacteria infection 11/16/2023 Assessment & Plan (11/16/2023 2:38 PM EDT): Patient finish antibiotic course (ertapenem) Seizure disorder 11/16/2023 Assessment & Plan (04/25/2024 10:03 AM EDT): Due to dialysis, change Keppra dosing to 500mg daily and 500mg post dialysis Assessment & Plan (12/14/2023 1:23 PM EDT): C/w keppra, Valproic acid and phenytoin F/u with neurology at [facility] in 4 weeks No seizure activity since she was discharged from the hospital Assessment & Plan (11/16/2023 2:40 PM EDT): C/w keppra, Valproic acid and phenytoin Type 2 diabetes mellitus with peripheral angiopa thy 07/19/2023 Assessment & Plan (04/25/2024 10:07 AM EDT): Current A1c: 5.3 BMP: Basaglar 10 units nightly Followup with endocrinology at [facility] Microalbumin: Lab Results Component Value Date MICROALBUR 336.3 09/29/2021 Foot Exam: deferred today, seeing surgery next week Eye Exam: last 11/2023, awaiting cataract surgery, also with severe NPDR Lipid panel: ASCVD: Calculate pending updated labs Statin: Yes ASA: Yes SALVADOR/ARB: Yes Encouraged daily foot checks Encouraged lean protein snacks and to avoid foods high in sugar and simple carbohydrates Treatment Goals: A1c goal: <7% FBG goal: <130 2 hour post prandial goal: <180 Assessment & Plan (11/16/2023 2:33 PM EDT): C/w current interventions f/u with PCP Assessment & Plan (10/18/2023 9:29 AM EDT): Current A1c: 5.3 Continue Lantus 30 units BID and reduce Novolog dose from 16 units with meals to 6-8 units as she reports 3 episodes of hypoglycemia in the past month BMP: Lab Results Component Value Date CREATININE 4.89 (HH) 04/24/2023 CREATININE 4.38 (HH) 03/22/2023 CREATININE 4.45 (HH) 03/03/2023 CREATININE 4.45 (HH) 02/03/2023 CREATININE 1.43 (H) 12/20/2021 CREATININE 1.24 10/02/2021 CREATININE 1.39 03/28/2020 CREATININE 1.15 03/08/2020 Microalbumin: Lab Results Component Value Date MICROALBUR 336.3 09/29/2021 Foot Exam: Complete at follow up Eye Exam: Discuss at follow up Lipid panel: ASCVD: Calculate pending updated labs Statin: Yes ASA: Yes SALVADOR/ARB: Yes Encouraged regular aerobic exercise for improved glycemic control Encouraged daily foot checks Encouraged lean protein snacks and to avoid foods high in sugar and simple carbohydrates Treatment Goals: A1c goal: <7% FBG goal: <130 2 hour post prandial goal: <180 Assessment & Plan (07/19/2023 1:42 PM EDT): Continue Lantus and Novolog Continue low sugar diet A1C 5.3 Diabetic ulcer of ankle 07/03/2023 Assessment & Plan (07/19/2023 1:41 PM EDT): Will cover for MRSA and anaerobes due to ulcer progression and still with surrounding erythema Both Augmentin and Bactrim ordered, renally dosed Assessment & Plan (07/03/2023 7:55 PM EDT): Dressing done by nurse today. Continue daily dressing with silvadene and cover with dry dressing, she will fu with her PCP at upcoming appt on 07/18 Take Duricef x 1w, keep area clean and dry, avoid pressure on that area. Hyperkalemia 04/25/2023 Assessment & Plan (04/25/2023 6:29 AM EDT): Received call from lab about critical value of 6.0 Will rx lokelma to bring K down, recheck in one week ER precautions for chest pain Pre-operative exam 03/06/2023 Assessment & Plan (03/06/2023 1:04 PM EST): Patient is high-risk for low-risk surgery based on ESRD (in preparation for dialysis), DM2 on insulin. She is not in heart failure, renal failure is stable for past two months at CrCl of 10, and her diabetes is well controlled with A1C of 5.7. She can proceed to surgery without further cardiac or pulmonary risk stratification. 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 associated with type 2 diabetes mellitus 03/03/2023 Diabetic ulcer of toe of rig ht foot associated with type 2 diabetes mellitus, with fat layer exposed 02/28/2023 Assessment & Plan (04/25/2024 10:08 AM EDT): S/p amputation 03/2024 Followed by general surgery at [facility] Assessment & Plan (04/25/2023 6:29 AM EDT): Mupirocin and wrap with gauze to protect Anemia in chronic kidney disease 01/17/2023 01/20/2023 Proteinuria 01/17/2023 01/20/2023 Renal osteodystrophy 12/20/2022 01/20/2023 ESRD (end stage renal disease) 12/09/2022 Assessment & Plan (02/03/2023 4:24 PM EST): Lab Results Component Value Date CREATININE 4.45 (HH) 02/03/2023 CREATININE 1.43 (H) 12/20/[address] Meehan, today's labs confirm the need to prepare for dialysis. She must have the appointment with vascular for vein mapping and fistula preparation To continue on Lasix 80mg BID Her symptoms of cramps, twitching are related to the kidney failure. If her urine output decreases to ER as she may need emergent dialysis Assessment & Plan (01/23/2023 6:47 AM EST): Letter given to increase [employer] hours due to change in patient's health status with ESRD Assessment & Plan (12/09/2022 3:12 PM EDT): Last GFR is 11 Dialysis Tx has been discussed with Pt and family Cont medical Tx w/ Lokelma, Torsemide, DM + HTN Tx and FU with I held off flu IZ today as Pt reported previous severe reaction to flu IZ many years ago Pressure injury of sacral region, stage 1 2022 Assessment & Plan (12/09/2022 3:11 PM EDT): Ulcer are healing nicely, no evidence of infection Cont use Clotrimazole cream and Zinc Oxide cream BID and reconsult PRN FU with PCP Primary osteoarthritis of both hips 12/09/2022 Assessment & Plan (12/09/2022 12:41 PM EDT): Pt has worsening gait difficulty after long hospitalization Will start home PT Cardiorenal syndrome 11/23/2022 Assessment & Plan (12/09/2022 12:37 PM EDT): Seems to have been improved with dialysis. FU with on Dec 20 She has no S/Sx of fluid overload I will order echocardiogram to see if she needs any additional cardio evaluation, FU results w/ PCP Assessment & Plan (11/23/2022 7:07 PM EDT): Received call from lab about critical value at 6pm; creatinine of 4.1; eGFR 11. - I had ordered Lasix 40mg BID, but given this tenuous situation, recommend ER evaluation for admission and IV diuresis with significant decline in renal function and signs/sx of fluid overload on exam - Spoke with patient via interpretation with [employer] interpreters at 7pm, she had just laid down in bed and her daughter did not feel it best to wake her. They will take her to the [facility] ER in the morning, and if she awakens with chest pain/palpitations call 9-1-1. Functional urinary incontinence 10/07/2022 Assessment & Plan (10/07/2022 5:43 AM EDT): Poise pads Stress incontinence of urine 10/03/2022 BMI 40.0-44.9, adult 10/03/2022 Hypertensive retinopathy of right eye 07/22/2022 Renal stone 06/08/2022 Overview (10/03/2022): Last Assessment & Plan: Stent placed in the hospital Will have it removed tomorrow This should help with pain Assessment & Plan (06/08/2022 9:01 AM EDT): Stent placed in the hospital Will have it removed tomorrow This should help with pain Insomnia 06/08/2022 Assessment & Plan (04/25/2024 10:03 AM EDT): Trial trazodone 50mg and Gabapentin 200mg at night Ambien not effective Assessment & Plan (06/08/2022 9:02 AM EDT): Start Trazodone 50-100mg nightly for sleep Sleep hygiene and tea as well Epigastric pain 04/13/2022 Assessment & Plan (04/13/2022 7:39 AM EST): Stop Famotidine, increase Omeprazole to 20mg BID Diet and lifestyle modifications Abdominal US ordered to rule out gallbladder or liver pathology Hyperlipidemia 03/24/2022 Abnormal gait 01/31/2022 Chronic pain 01/31/2022 Assessment & Plan (12/14/2023 2:11 PM EDT): Patient with chronic pain and multiple muscle groups and joints, likely due to combination of uremia from ESRD, OA, and de-conditioning. Lidocaine patches have been helpful in the past on her knees and calves for pain. Will send for repeat PA Increase Tylenol to 650mg up to two tabs TID Essential hypertension 01/31/2022 Assessment & Plan (04/25/2024 10:05 AM EDT): Not controlled today, monitoring at dialysis Seeing nephro 04/29/24 Continue Losartan 100mg daily Continue Amlodipine 10mg in the AM Follow recommendations of nephrology for medications and fluid balance Assessment & Plan (12/14/2023 1:22 PM EDT): Not controlled today, or in general Increase Losartan to 100mg BID (had her doing this while hospitalized and was helpful at controlling her pressure) Continue Amlodipine 10mg in the AM Ensure compliance with Metalazone for fluid overload, at 2.5mg TID, monitor weights at home, she is about 9-10 pounds over dry weight today Have visit with nurses via telephone in one week to evaluate BP stability, if better controlled (< 140/90), will write letter for cataract surgery clearance Assessment & Plan (11/16/2023 2:42 PM EDT): Today blood pressure is elevated is understandable in light of her underline kidney condition, she is clinically asymptomatic I advise low Na diet, take medications as prescribed continue to be follow closely by PCP and nephrology Assessment & Plan (10/18/2023 9:31 AM EDT): On Losartan 100mg and Amlodipine 10mg No diuretic currently Recheck CMP today No dosage adjustment in necessary for CKD5, per UTD Assessment & Plan (03/22/2023 11:57 AM EST): On Losartan 50mg, Amlodipine 10mg and Lasix 80mg BID Will increase Losartan to 100mg daily to bring BP closer to <130/80 No dosage adjustment in necessary for CKD5, per UTD Assessment & Plan (03/06/2023 1:03 PM EST): On Losartan 50mg, Amlodipine and Lasix At goal at home Assessment & Plan (12/09/2022 3:10 PM EDT): Uncontrolled today, restart Losartan 50 mg (she was discharged on 100mg but she hasn't started it yet), she's on standing lokelma for hyperK Recheck BMP now and in 1 wk Cont Amlodipine and Torsemide Assessment & Plan (11/23/2022 6:57 PM EDT): Continue Amlodipine 10mg HOLD Losartan 100mg daily due to worsening renal function increase Lasix to 40mg BID due to LE swelling Assessment & Plan (11/04/2022 8:23 AM EDT): Continue Amlodipine 10mg HOLD Losartan 100mg daily due to worsening renal function Continue Lasix 20mg BID due to LE swelling Assessment & Plan (07/25/2022 8:43 AM EDT): Continue Amlodipine 10mg Continue Losartan 100mg daily Will need Lasix back due to LE swelling Assessment & Plan (06/08/2022 9:00 AM EDT): Losartan held during hospital stay, but ok to restart now Continue 100mg daily Assessment & Plan (04/13/2022 7:37 AM EST): At goal currently On Amlodipine 10mg daily Assessment & Plan (02/02/2022 1:35 PM EST): On Amlodipine 10mg daily Moderate persistent asthma without complication 01/31/2022 Assessment & Plan (04/13/2022 7:36 AM EST): followup with pulm April 2022 Continue Breo, juhi DONNY Neoplasm of meninges 01/31/2022 Assessment & Plan (07/25/2022 8:41 AM EDT): Needs MRI for surveillance Then NSG followup Assessment & Plan (04/13/2022 7:38 AM EST): 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 Supposed to have annual MRI with and without gadolinium Will have MRI May 05, 2022 and re-refer to [facility] neurosurgery Assessment & Plan (02/02/2022 1:35 PM EST): 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 Supposed to have annual MRI with and without gadolinium Will order and re-refer to [facility] neurosurgery Onycholysis 01/31/2022 Stage 5 chronic kidney disease 01/31/2022 Assessment & Plan (06/12/2023 7:40 AM EDT): Cr 4.8 today and eGFR 9 (04/2023) Had appointment with Dr Meehan 01 May 2023, did not followup with dialysis intro class or vascular appointment Dicussed with family members today that they need to call [facility] Vascular and reschedule the initial appointment, and to call nephro to rebook intro class To continue on Lasix 80mg BID Her symptoms of cramps, twitching are related to the kidney failure and electrolyte abnormalities If her urine output decreases to ER as she may need emergent dialysis Assessment & Plan (04/25/2023 6:30 AM EDT): Cr 4.8 today and eGFR [address] Meehan 01 May 2023, understands that she will need dialysis and vein map/fistula placement to prep, she is anxious about this all To continue on Lasix 80mg BID Her symptoms of cramps, twitching are related to the kidney failure and electrolyte abnormalities If her urine output decreases to ER as she may need emergent dialysis Assessment & Plan (03/22/2023 11:58 AM EST): Continue to monitor Cr every 2-4 weeks, with need for vein mapping determined by Dr Meehan To continue on Lasix 80mg BID Her symptoms of cramps, twitching are related to the kidney failure. If her urine output decreases to ER as she may need emergent dialysis Assessment & Plan (01/23/2023 10:22 AM EST): Lab Results Component Value Date CREATININE 3.72 (H) 12/09/2022 CREATININE 1.43 (H) 12/20/2021 May need to prepare for dialysis. Currently not on any diuretics, daughter reports Dr. Meehan told them to take 40mg, two tablets BID for diuretic, thus I renewed her Lasix at this dose, namely 80mg BID. Followup with me for repeat Cr and electrolytes in 1-2 weeks Assessment & Plan (11/04/2022 8:22 AM EDT): Stage 3/4 with Cr worsening over past 6-9 months unfortunately labs from garbage pick up man are not available, I called them and left a message about sending the labs and discussing resumption of Losartan For the meantime, it is reasonable to continue very gentle diuresis with Lasix 20mg BID, Amlodipine for BP control To take all medications in [place], seek emergency medical attention for worsening swelling or SOB Assessment & Plan (04/13/2022 7:37 AM EST): Last labs 12/2021 Cr 1.43, egFR 47 Avoid nephrotoxins Call Nephrology office to make followup appt Assessment & Plan (02/02/2022 1:36 PM EST): Last labs 12/2021 Cr 1.43, egFR 47 TIA (transient ischemic attack) 01/31/2022 Type 2 diabetes mellitus wit h diabetic chronic kidney disease 01/31/2022 Assessment & Plan (04/25/2023 6:31 AM EDT): A1C 5.5 today Cont Toujeo 30 unit BID Hold Humalog with meals Assessment & Plan (03/22/2023 11:59 AM EST): A1C 5.5 today Cont Toujeo 30 unit BID + Humalog 16 units BID AC meals if BS above 150 AC meals. Assessment & Plan (01/23/2023 6:43 AM EST): Last A1c < 7.0 Cont holding Ozempic Cont Toujeo gel 30 unit BID + Humalog 16 units BID AC meals if BS above 150 AC meals. Assessment & Plan (12/09/2022 12:35 PM EDT): Last A1c at goal, however Pt off Ozempic x 1 m mostly due to side effects Cont holding Ozempic and FU w/ PCP Cont Toujeo gel 30 unit BID + Humalog 16 units BID AC meals if BS above 150 AC meals. FU w PCP in 6 wk Assessment & Plan (10/07/2022 5:45 AM EDT): At goal, may need to switch Ozempic for Farixga Ozempic, Toujeo 30 units BID, may need to downtitrate this ASA and statin Well controlled, A1C 6.4 04/2022 Neuropathy is bothersome for her- rx'ed Diclofenac gel for her Assessment & Plan (07/25/2022 8:43 AM EDT): Start Ozempic 0.25mg Toujeo 30 units BID, may need to downtitrate this ASA and statin Well controlled, A1C 6.2 04/2022 Neuropathy is bothersome for her- rx'ed Diclofenac gel for her Assessment & Plan (06/08/2022 8:59 AM EDT): Continue Ozempic, Toujeo ASA and statin Well controlled, A1C 6.2 04/2022 Neuropathy is bothersome for her- rx'ed Diclofenac gel for her Assessment & Plan (04/13/2022 7:37 AM EST): Continue Ozempic, Toujeo ASA and statin Last A1C 6.7 12/2021 Assessment & Plan (02/02/2022 1:37 PM EST): Continue Ozempic, Toujeo ASA and statin Last A1C 6.7 12/2021 Anxiety 01/31/2022 Assessment & Plan (04/25/2024 10:09 AM EDT): Significant anxiety about dialysis itself as well as morbidity and mortality of dialysis She has a hard time completing dialysis sessions Trial Lorazepam 0.5mg prior to dialysis Assessment & Plan (02/02/2022 1:38 PM EST): Trial Trazodone 50mg nightly Edema of lower extremity 01/31/2022 Assessment & Plan (07/25/2022 8:44 AM EDT): Lasix 20mg tabs ordered, may need inpatient mgmt for IV diuresis I will followup via phone after labs (CMP, BNP result) to determine Lasix dosing Bedside commode to be checked on Assessment & Plan (02/02/2022 1:36 PM EST): Lasix 20mg BID x 14 days followup with me after that Bedside commode to be checked on Resolved Problems Problem Noted Date Diagnosed Date Resolved Date Ventral hernia 06/08/2022 04/25/2023 Assessment & Plan (07/25/2022 8:45 AM EDT): At sites of previous surgical scars, not in good shape for surgical repair currently Assessment & Plan (06/08/2022 9:00 AM EDT): Chronic, at site of prior operations She would like to talk to general surgery about this Referral placed [id number] renal failure 01/31/2022 04/25/2024 Assessment & Plan (10/07/2022 5:46 AM EDT): Follow with nephro for mgmt of ARB, BP control Will increase Lasix to 20mg BID to increase diuresis Assessment & Plan (06/08/2022 9:00 AM EDT): Follow with nephro for mgmt Seizures 01/31/2022 02/28/2023 Assessment & Plan (07/25/2022 8:42 AM EDT): On Vimpat 200mg daily No breakthrough seizures recently Assessment & Plan (02/02/2022 1:35 PM EST): On Vimpat 200mg daily Encounters Date Type Department Care Team Description 05/23/2024 Orders Only GENERIC EXTERNAL DATA DEPARTMENT Provider, Generic External Data 05/04/2024 Orders Only GENERIC EXTERNAL DATA DEPARTMENT Provider, Generic External Data 04/28/[address] [facility] [address] [place] [id number] Lucrecia Teixeira MD 04/24/[address] [id number] Lucrecia Teixeira MD Prior Authorization ([employer] [facility] request: losartan (Cozaar) 100 MG tablet) 04/23/2024 9:15 AM EDT Office Visit [facility] [address] [place] [id number] Lucrecia Teixeira MD Hospital discharge follow-up (Primary Dx); Type 2 diabetes mellitus with peripheral angiopathy ([facility]); Dietary counseling; Exercise counseling; Class 3 severe obesity with serious comorbidity and body mass index (BMI) of 45.0 to 49.9 in adult, unspecified obesity type ([facility]); Severe nonproliferative diabetic retinopathy of right eye with macular edema associated with type 2 diabetes mellitus ([facility]); Seizure disorder ([facility]); Sacral decubitus ulcer, stage II ([facility]); ESRD (end stage renal disease) ([facility]); Anemia in chronic kidney disease, on chronic dialysis ([facility]); Uremic peripheral polyneuropathy ([facility]); Insomnia due to medical condition; Essential hypertension; Diabetic ulcer of toe of right foot associated with type 2 diabetes mellitus, with fat layer exposed ([facility]); Type 2 diabetes mellitus with chronic kidney disease on chronic dialysis, with long-term current use of insulin ([facility]); Anxiety 04/23/2024 Travel 04/17/[address] [facility] [address] [place] [address] Lucrecia Teixeira MD Essential hypertension; Cardiorenal syndrome with renal failure 04/16/[address] [facility] [address] [place] [address] Lucrecia Teixeira MD FYI 04/12/[address] [facility] [address] [place] [phone] Lucrecia Teixeira MD FYI 04/08/2024 Orders Only GENERIC EXTERNAL DATA DEPARTMENT Provider, Generic External Data 03/22/2024 Orders Only [facility] External Provider, [facility] 03/06/[address] [facility] [address] [place] [phone] Lucrecia Teixeira MD Med Refill 03/06/[address] [facility] [address] [place] [phone] Lucrecia Teixeira MD Essential (primary) hypertension from Last 3 Months Immunizations Name Administration Dates Next Due Pneumococcal Polysaccharide PPSV23 05/11/2019 Social History Tobacco Use Types Packs/Day Years Used Date Smoking Tobacco: Never Passive Smoke Exposure: Never Smokeless Tobacco: Never Tobacco Cessation:Counseling Given: Not Answered Alcohol Use Standard Drinks/Week Comments Never 0 [...] not to disclose 2021 10:36 AM EDT Last Filed Vital Signs Vital Sign Reading Time Taken Comments Blood Pressure 148/73 04/23/2024 9:27 AM EDT Pulse 88 04/23/2024 9:27 AM EDT Temperature 36.8 ??C (98.2 ??F) 04/23/2024 9:27 AM ED T Respiratory Rate 20 04/23/2024 9:27 AM EDT Oxygen Saturation 100% 04/23/2024 9:27 AM EDT Inhaled Oxygen Concentration - - Weight 108 kg (239 lb) 04/23/2024 9:27 AM EDT Height 154.9 cm (5' 1 ) 04/23/2024 9:27 AM EDT Body Mass Index 45.16 04/23/2024 9:27 AM EDT Plan of Treatment Upcoming Encounters Date Type Department Care Team (Late st Contact Info) Description 07/15/2024 2:15 PM EDT Office Visit [facility] [address] [place], [place] [phone] Lucrecia Teixeira MD [address] [place] [address] Health Maintenance Due Date Last Done Comments CT Colonography 1955 Colonoscopy 1955 Colorectal Cancer Screening 1955 FIT DNA/Cologuard 1955 FIT 1955 FOBT 1955 Sigmoidoscopy 1956 Diabetes: Foot Exam 1966 Hepatitis C Screening 1974 DTaP/Tdap/Td Vaccines (1 - Tdap) 12/13/1975 Zoster Vaccines (1 of 2) 2006 RSV Patients and Patients Aged 60 years or older (1 - Risk 60-74 years 1-dose series) 2016 Pneumococcal Vaccine: 50+ Years (2 of 2 - PCV) 05/10/2020 05/11/2019 Lipid Panel 09/28/2022 09/28/2021, 02/25/2020 Eye Exam 07/23/2023 07/22/2022, 10/2022, 07/22/2022, Additional history exists COVID-19 Vaccine ( season) 2023 Influenza Vaccine (#1) 2023 Mammogram 12/17/2023 12/16/2022, 04/2022, 08/09/2022, Additional history exists Depression Screening 01/21/2024 01/20/2023, 01/21/20 23 Diabetes: Hemoglobin A1C 06/12/2024 024, 07/19/2023, 03/22/2023, Additional history exists SDOH Screening 07/11/2024 07/12/2023 Alcohol/Substance Use Screening 11/15/2024 11/16/2023 Tobacco Screening 04/25/2025 04/25/2024 HIB Vaccines Aged Out No longer eligi ble based on patient's age to complete this topic HPV Vaccines Aged Out No longer eligi ble based on patient's age to complete this topic Hepatitis A Vaccines Aged Out No long er eligible based on patient's age to complete this topic Hepatitis B Vaccines Aged Out No long er eligible based on patient's age to complete this topic IPV Vaccines Aged Out No longer eligi ble based on patient's age to complete this topic Meningococcal Vaccine Aged Out No handy cristal eligible based on patient's age to complete this topic RSV under 20 months Aged Out No longe r eligible based on patient's age to complete this topic Rotavirus Vaccines Aged Out No longer eligible based on patient's age to complete this topic Procedures Procedure Name Priority Date/Time Associated Diagnosis Comments XR TIBIA FIBULA 2 VIEWS LEFT Routine 05/23/2024 10:45 AM EDT SED RATE BY MODIFIED WESTERGREN Routine 05/23/2024 10:11 AM EDT C-REACTIVE PROTEIN Routine 05/23/2024 10 :11 AM EDT LACTIC ACID Routine 05/23/2024 10:11 AM EDT TYPE AND SCREEN Routine 05/23/2024 10:07 AM EDT XR HIP BILATERAL WITH PELVIS 1 VIEW Routine 05/23/2024 10:00 AM EDT HOLD LAVENDER - POSSIBLE HEMATOLOGY Routine 05/23/2024 9:42 AM EDT HOLD LT BLUE - POSSIBLE COAG Routine 05/23/2024 9:39 AM EDT CBC WITH AUTO DIFFERENTIAL Routine 05/23/2024 9:[address] ABDOMEN PELVIS WO CONTRAST Routine 05/19/2024 1:26 PM EDT XR CHEST 1 VIEW Routine 05/14/2024 4:25 PM EDT XR KUB AND UPRIGHT 2 VIEWS Routine 05/11/2024 6:34 PM EDT IR CVC REPLACE CENTRAL TUNNEL Routine 05/09/2024 12:[address] HEAD WO CONTRAST Routine 05/08/2024 1 0:[address] PELVIS WO CONTRAST Routine 05/05/2024 4:00 PM EDT XR HIPS BILATERAL 3 OR 4 VIEWS WITH OR WITHOUT PELVIS Routine 05/04/2024 2:06 PM EDT XR CHEST 1 VIEW Routine 05/04/2024 12:31 PM EDT LACTIC ACID LAB USE ONLY Routine 05/04/2024 11:[address] HEAD WO CONTRAST Routine 05/04/2024 1 0:11 AM EDT LACTIC ACID Routine 05/04/2024 8:[address] HEAD WO CONTRAST Routine 05/04/2024 3 :39 AM EDT RED BLOOD COUNT Routine 05/04/2024 3:30 AM EDT TYPE AND SCREEN Routine 05/04/2024 3:[address] CERVICAL SPINE WO CONTRAST Routine 05/04/2024 3:28 AM EDT POCT GLUCOSE Routine 04/23/2024 9:28 AM EDT Type 2 diabetes mellitus with peripheral angiopathy (CMS/HCC) LACTIC ACID Routine 04/08/2024 2:25 AM EST XR FOOT 3+ VIEWS LEFT Routine 04/08/2024 1:39 AM EST XR HIP RIGHT WITH PELVIS 1 VIEW Routine 04/08/2024 1:36 AM EST IR CVC INSERT CENTRAL TUNNEL Routine 03/27/2024 1:[address] ABDOMEN PELVIS WO CONTRAST Routine 03/23/2024 12:08 PM EST IR US GUIDE VENOUS ACCESS Routine 03/22/2024 2:37 PM EST IR CVC INSERT NON TUNNEL Routine 03/22/2024 12:30 PM EST POCT GLYCATED HEMOGLOBIN, TOTAL Routine 12/13/2023 2:05 PM EDT Type 2 diabetes mellitus with peripheral angiopathy (CMS/HCC) BI MAMMOGRAM DIAGNOSTIC TOMOSYNTHESIS RIGHT Routine 12/16/2022 3:35 PM EDT LIPID PANEL, STANDARD Routine 09/28/2021 9:30 AM EDT from Last 3 Months or Most Recently Relevant to Health Maintenance Results * XR Tibia Fibula 2 Views Left (05/23/2024 10:45 AM EDT) Anatomical Region Laterality Modality Lower Extremities, Lower Leg Left Rad iographic Imaging 05/23/2024 10:4 5 AM EDT Narrative 05/23/2024 11:22 AM EDT ? [facility] ?[address] ?[place] [address] ?XRay Report ? Signed ? Patient: Lori Land ?MR#: [id number] ?? [id number] ? : 1955 ?Acct:[id number] ? Age/Sex: 68 / F ?ADM Date: 05/23/24 ? Loc: HO.ED ? Attending Dr: ? Ordering Physician: Yancy Jacobson ?? Date of Service: 05/23/24 ?? Procedure(s): XR tibia fibula LT 2V ?? Accession Number(s): [id number] ? cc: Yancy Jacobson; Lucrecia Teixeira ? EXAMINATION: ?? XR TIBIA AND FIBULA, LEFT ? CLINICAL INFORMATION: ?? Large left lateral wound, concern for osteomyelitis. ? COMPARISON: ?? None available. ? TECHNIQUE: ?? AP and lateral views of the left tibia and fibula were obtained. ? FINDINGS: ?? Diffuse osteopenia. No fracture, dislocation, or suspicious bone ?? lesion. No focal periostitis or lytic changes to suggest radiographic ?? changes of osteomyelitis. ?? Soft tissues demonstrate diffuse vascular calcifications but are ?? otherwise normal. ? XR/XR tibia fibula LT 2V ?? IMPRESSION: ?? Osteopenia without acute bony lesion. No radiographic evidence of ?? osteomyelitis. ?? Diffuse vascular calcifications. ? Electronically signed by: ??Rupesh Araya MD ??05/23/2024 11:19 AM EDT RP ? Dictated By: ?Rupesh Araya MD ? Signed By: ?<Electronically signed by Rupesh Araya MD in OV> ?05/23/24 1119 ? DD/ 1045 ? TD/TT: 05/23/24 1105 ? Investigation Lieutenant: ? Procedure Note Donotuseinterpreter, Image - 05/23/[address] [address] XRay Report Signed Patient: Lori LandMR#: [id number] : 1955cct:[id number] Age/Sex: 68 / FADM Date: 05/23/24 Loc: .ED Attending Dr: Ordering Physician: Yancy Jacobson Date of Service: 05/23/24 Procedure(s): XR tibia fibula LT 2V Accession Number(s): [id number] cc: Yancy Jacobson; Lucrecia Teixeira EXAMINATION: XR TIBIA AND FIBULA, LEFT CLINICAL INFORMATION: Large left lateral wound, concern for osteomyelitis. COMPARISON: None available. TECHNIQUE: AP and lateral views of the left tibia and fibula were obtained. FINDINGS: Diffuse osteopenia. No fracture, dislocation, or suspicious bone lesion. No focal periostitis or lytic changes to suggest radiographic changes of osteomyelitis. Soft tissues demonstrate diffuse vascular calcifications but are otherwise normal. XR/XR tibia fibula LT 2V IMPRESSION: Osteopenia without acute bony lesion. No radiographic evidence of osteomyelitis. Diffuse vascular calcifications. Electronically signed by: Rupesh Araya MD 05/23/2024 11:19 AM EDT Dictated By: Rupesh Araya MD Signed By: <Electronically signed by Rupesh Araya MD in OV> 05/23/24 1119 DD/ 1045 TD/TT: 05/23/24 1105 Investigation Lieutenant: [facility] External Provider IMG XR PROCEDURES Final Result * (ABNORMAL) Sed Rate by Modified Westergren (05/23/2024 10:11 AM EDT) Erythrocyte Sedimentation Rate >140(H) 0 - 20 MM/HR [facility] Comment:Patients with polycy themia and many hemoglobin abnormalitiesmay have depressed sed rates whereas patients with anemiamay have elevated sed rates. 05/23/2024 10:1 1 AM EDT 05/23/2024 10:18 AM EDT Generic External Data Provider LAB BLOOD ORDERAB LES Final Result Performing Organization Address [facility]/ZIP Co de Phone Number [facility] [address] [place] [phone] * (ABNORMAL) C-reactive Protein (05/23/2024 10:11 AM EDT) C Reactive Protein 37.41(H) < or = 0.50 mg/dL [facility] 05/23/2024 10:1 1 AM EDT 05/23/2024 10:18 AM EDT Generic External Data Provider LAB BLOOD ORDERAB LES Final Result Performing Organization Address [facility] de Phone Number [facility] [address] [place] [phone] * Lactic Acid (05/23/2024 10:11 AM EDT) Only the most recent of3 resultswithin the time period is included. Lactic Acid 0.8 0.5 - 2.0 mmol/L [facility] 05/23/2024 10:1 1 AM EDT 05/23/2024 10:16 AM EDT Generic External Data Provider LAB BLOOD ORDERAB LES Final Result Performing Organization Address [facility] Co de Phone Number [facility] [address] [place] [phone] * Type and screen (05/23/2024 10:07 AM EDT) Only the most recent of2 resultswithin the time period is included. Blood Type OP [facility] Antibody Screen NEGATIVE [facility] 05/23/2024 10:0 7 AM EDT 05/23/2024 10:17 AM EDT us Generic External Data Provider LAB BLOOD BANK TE ST ORDERABLES Final Result [facility] [address] [place] [phone] * XR Hips Bilateral with Pelvis 1 view (05/23/2024 10:00 AM EDT) Anatomical Region Laterality Modality Lower Extremities, Hip Bilateral Radiograp hic Imaging 05/23/2024 10:0 0 AM EDT Narrative 05/23/2024 11:24 AM EDT ? [facility] ?[address] ?[place] [address] ?XRay Report ? Signed ? Patient: Lori Land ?MR#: [id number] ?? [id number] ? : 1955 ?Acct:[id number] ? Age/Sex: 68 / F ?ADM Date: 05/23/24 ? Loc: HO.ED ? Attending Dr: ? Ordering Physician: Yancy Jacobson ?? Date of Service: 05/23/24 ?? Procedure(s): XR hip BI w PEL1V ?? Accession Number(s): [id number] ? cc: Yancy Jacobson; Lucrecia Teixeira ? EXAMINATION: ?? XR BILATERAL HIPS WITH AP PELVIS ? CLINICAL INFORMATION: ?? large hip wound, concern for osteo ? COMPARISON: ?? None available. ? TECHNIQUE: ?? AP view of the pelvis and single views of each hip were obtained. ? FINDINGS: ?? Study is very limited secondary to patient habitus. Limited ?? visualization of the bony structures. ? Within confines of limitations, no fracture, dislocation, or suspicious ?? bone lesion. No definite radiographic changes of osteomyelitis. ?? There are mild to moderate changes of arthritis in both hip joints. ? Diffuse vascular calcifications in the soft tissues. Soft tissue defect ?? in the left inferolateral hip region. No subcutaneous emphysema. ? XR/XR hip BI w PEL1V ?? IMPRESSION: ?? Limited exam. ?? No acute bony abnormalities allowing for limitations. ?? Soft tissue defect in the left inferolateral hip region. No ?? subcutaneous emphysema. ? Electronically signed by: ??Rupesh Araya MD ??05/23/2024 11:21 AM EDT RP ? Dictated By: ?Rupesh Araya MD ? Signed By: ?<Electronically signed by Rupesh Araya MD in OV> ?05/23/241120 ? DD/ 1000 ? TD/TT: 05/23/24 1105 ? Investigation Lieutenant: ? Procedure Note Valeria, Image - 05/23/2024 [place] [address] XRay Report Signed Patient: Lori LandMR#: [id number] : 1955cct:[id number] Age/Sex: 68 / FADM Date: 05/23/24 Loc: HO.ED Attending Dr: Ordering Physician: Yancy Jacobson Date of Service: 05/23/24 Procedure(s): XR hip BI w PEL1V Accession Number(s): [id number] cc: Yancy Jacobson; Lucrecia Teixeira EXAMINATION: XR BILATERAL HIPS WITH AP PELVIS CLINICAL INFORMATION: large hip wound, concern for osteo COMPARISON: None available. TECHNIQUE: AP view of the pelvis and single views of each hip were obtained. FINDINGS: Study is very limited secondary to patient habitus. Limited visualization of the bony structures. Within confines of limitations, no fracture, dislocation, or suspicious bone lesion. No definite radiographic changes of osteomyelitis. There are mild to moderate changes of arthritis in both hip joints. Diffuse vascular calcifications in the soft tissues. Soft tissue defect in the left inferolateral hip region. No subcutaneous emphysema. XR/XR hip BI w PEL1V IMPRESSION: Limited exam. No acute bony abnormalities allowing for limitations. Soft tissue defect in the left inferolateral hip region. No subcutaneous emphysema. Electronically signed by: Rupesh Araya MD 05/23/2024 11:21 AM EDT RP Dictated By: Rupesh Araya MD Signed By: <Electronically signed by Rupesh Araya MD in OV> 05/23/24 1121 DD/ 1000 TD/TT: 05/23/24 1105 Investigation Lieutenant: [facility] External Provider IMG XR PROCEDURES Final Result * Hold Lavender - Possible Hematology (05/23/2024 9:42 AM EDT) Hold Lavender - Possible Hematololgy SEE NOTE [facility] Comment:Specimen will be hel d untested for 8 hours. Call Hematologyif testing is desired. 05/23/2024 9:42 AM EDT 05/23/2024 10:18 AM EDT Generic External Data Provider HISTORICAL/NON OR DERABLE LABS Final Result Performing Organization Address [facility] Co de Phone Number [facility] [address] [place] [phone] * HOLD LT BLUE - POSSIBLE COAG (05/23/2024 9:39 AM EDT) Hold Lt Blue - Possible Coag SEE NOTE [facility] Comment:Specimen will be hel d untested for 4 hours. Call Hematologyif testing is desired. 05/23/2024 9:39 AM EDT 05/23/2024 10:21 AM EDT Generic External Data Provider LAB BLOOD ORDERAB LES Final Result Performing Organization Address [facility] Co de Phone Number [facility] [address] [place] [phone] * (ABNORMAL) CBC auto differential (05/23/2024 9:39 AM EDT) White Blood Count 13.9(H) 4.8 - 10.8 X10*3/uL [facility] Red Blood Count 2.48(L) 4.20 - 5.50 X10*6/uL [facility] Hemoglobin 7.4(L) 12.0 - 16.0 g/dl [facility] Hematocrit 21.6(L) 37.0 - 47.0 % [facility] Mean Corpuscular Volume 87.1 80.0 - 98.0 fL [facility] Mean Corpuscular Hemoglobin 29.8 27.0 - 33.0 pg [facility] Mean Corpuscular HGB Conc 34.3 31.0 - 35.0 g/dl [facility] Red Cell Distribution Width 19.7(H) 11.0 - 16.0 % [facility] Platelet Count TNP 160 - 400 X10*3/uL [facility] Comment:Platelet clumps note d. Platelet count will not be accurate. Mean Platelet Volume TNP 9.4 - 12.3 fL [facility] Neutrophils Percent Auto 75.3(H) 45 - 73 % [facility] Imm Gran Pct Auto 3.2(H) 0.0 - 0.4 % [facility] Lymphocytes Percent Auto 10.8(L) 20 - 40 % [facility] Monocytes Percent Auto 9.0 2 - 11 % [facility] Eosinophils Percent Auto 1.2 0 - 4 % [facility] Basophils Percent Auto 0.5 0 - 2 % [facility] NRBC Pct Auto 0.0 0.0 - 0.2 /100WBC [facility] Neutrophils Absolute Auto 10.5(H) 2.0 - 8.3 x10*3/uL [facility] Imm Gran Abs Auto 0.45(H) 0.00 - 0.03 X10*3/uL [facility] Lymphocytes Absolute Auto 1.5 1.2 - 4.9 X10*3/uL [facility] Monocytes Absolute Auto 1.3(H) 0.1 - 1.2 X10*3/uL [facility] Eosinophils Absolute Auto 0.2 0.0 - 0.4 X10*3/uL [facility] Basophils Absolute Auto 0.1 0.0 - 0.2 X10*3/uL [facility] NRBC Abs Auto 0.000 0.0 - 0.012 X10*3/uL [facility] 05/23/2024 9:39 AM EDT 05/23/2024 9:46 AM EDT us Generic External Data Provider LAB BLOOD ORDERAB LES Edited Result - Final [facility] [address] [place] [address] [phone] * CT Abdomen Pelvis w/o Contrast (05/19/2024 1:26 PM EDT) Only the most recent of2 resultswithin the time period is included. Anatomical Region Laterality Modality Body, Pelvis, Abdomen Computed T omography 05/19/2024 1:26 PM EDT Narrative 05/19/2024 1:28 PM EDT ? [facility] ?[address] ?[place] [address] ? CT Scan Report ? Signed ? Patient: Lori Land ?MR#: [id number] ?? [id number] ? : 1955 ?Acct:[id number] ? Age/Sex: 68 / F ?ADM Date: 05/04/24 ? Loc: HO.IMC ?459-1 ? Attending Dr: Suze JULES ? Ordering Physician: Suze Nielsen ?? Date of Service: 05/18/24 ?? Procedure(s): CT abdomen pelvis wo IV con ?? Accession Number(s): [id number] ? cc: Suze Nielsen; Lucrecia Teixeira ? Report Number: ?? [id number]: Total DLP = 1305.00 mGy-cm ? CLINICAL HISTORY: anemia r o retroperitoneal hematoma ? CT abdomen and pelvis without contrast ? Comparison: CT/SR - CT PELVIS WO IV CON - 3 15:18 EDT ?? CT/AK/SR - CT ABDOMEN PELVIS WO IV CON - 03/23/24 10:26 EST ? Findings: ?? No consolidation or effusion. Cardiomegaly. Calcification of the coronary ?? vasculature. ? Gallbladder is not seen. Moderate bilateral renal atrophy. Renal vascular ?? calcifications bilaterally. No hydronephrosis. No retroperitoneal ?? hematoma. Solid organs otherwise within normal limits. ?? No bowel obstruction, pneumoperitoneum, or pneumatosis. 10 cm anterior ?? abdominal wall hernia containing a loop of transverse colon without ?? evidence of associated bowel strangulation, nor obstruction. ? Pelvic contents unremarkable. Normal appendix. ?? No acute fracture. ? IMPRESSION: ?? 1. No acute process. ?? 2. Bowel containing anterior abdominal wall hernia without evidence of ?? strangulation or obstruction. ?? 3. Coronary artery disease and cardiomegaly. ? This document has been electronically signed by: Vale Galvez MD on ?? 05/19/2024 13:26:50 ? Dictated By: ?Vale Galvez MD ? Signed By: ?<Electronically signed by Vale Galvez MD in OV> ? 05/19/24 1327 ? DD/ 1326 ? TD/TT: 05/19/24 1326 ? Investigation Lieutenant: ? Procedure Note Valeria, Violetta - 05/19/[address] [address] [address] Scan Report Signed Patient: Lori LandMR#: [id number] : 1955cct:[id number] Age/Sex: 68 / FADM Date: 05/04/24 Loc: [facility] 459-[address]: Suze JULES Ordering Physician: Suze Nielsen Date of Service: 05/18/24 Procedure(s): CT abdomen pelvis wo IV con Accession Number(s): [id number] cc: Suze Nielsen; Lucrecia Teixeira Report Number: [id number]: Total DLP = 1305.00 mGy-cm CLINICAL HISTORY: anemia r o retroperitoneal hematoma CT abdomen and pelvis without contrast Comparison: CT/SR - CT PELVIS WO IV CON - 05/05/24 15:[address]/AK/SR - CT ABDOMEN PELVIS WO IV CON - 03/23/24 10:26 EST Findings: No consolidation or effusion. Cardiomegaly. Calcification of the coronary vasculature. Gallbladder is not seen. Moderate bilateral renal atrophy. Renal vascular calcifications bilaterally. No hydronephrosis. No retroperitoneal hematoma. Solid organs otherwise within normal limits. No bowel obstruction, pneumoperitoneum, or pneumatosis. 10 cm anterior abdominal wall hernia containing a loop of transverse colon without evidence of associated bowel strangulation, nor obstruction. Pelvic contents unremarkable. Normal appendix. No acute fracture. IMPRESSION: 1. No acute process. 2. Bowel containing anterior abdominal wall hernia without evidence of strangulation or obstruction. 3. Coronary artery disease and cardiomegaly. This document has been electronically signed by: Vale Galvez MD on 05/19/2024 13:26:50 Dictated By: Vale Galvez MD Signed By: <Electronically signed by Vale Galvez MD in OV> 05/19/24 1327 DD/ 1326 TD/TT: 05/19/24 1326 Investigation Lieutenant: [facility] External Provider IMG CT PROCEDURES Edited Result - Final * XR Chest 1 View (05/14/2024 4:25 PM EDT) Only the most recent of2 resultswithin the time period is included. Anatomical Region Laterality Modality Chest Radiographic Anya ging 05/14/2024 4:25 PM EDT Narrative 05/15/2024 7:03 AM EDT ? [facility] ?[address] ?[place] [address] ?XRay Report ? Signed ? Patient: Lori Land ?MR#: [id number] ?? [id number] ? : 1955 ?Acct:[id number] ? Age/Sex: 68 / F ?ADM Date: 03/22/25 ? Loc: HO.IMC ?459-1 ? Attending Dr: Erin Al BRAZER FURNACE ? Ordering Physician: Erin Al BRAZER FURNACE ?? Date of Service: 05/14/24 ?? Procedure(s): XR chest 1V ?? Accession Number(s): [id number] ? cc: Lucrecia Teixeira; Erin Al BRAZER FURNACE ? EXAMINATION: ?? XR CHEST ? CLINICAL INFORMATION: ?? fever ? COMPARISON: ?? May 04, 2024. ? TECHNIQUE: ?? Frontal view of the chest was obtained. ? FINDINGS: ?? Low lung volume. ?? Mild prominence of the interstitial lung markings in the perihilar ?? region. ?? No gross consolidation pleural effusion or pneumothorax. ?? Cardiomediastinal silhouette size is mildly prominent. Right-sided ?? double-lumen central venous line catheter remains in the right atrium ?? region. ?? Mild multilevel thoracic spondylosis. Degenerative changes in the ?? shoulders, right greater than left side. Patient's large body habitus.. ? XR/XR chest 1V ?? IMPRESSION: ?? Mild interstitial lung edema versus acute small airway inflammatory ?? process. ? Electronically signed by: ??Pete Wright MD ??05/15/2024 07:00 AM ?? EDT RP ? Dictated By: ?Pete Head MD ? Signed By: ?<Electronically signed by Pete Mohan MD in OV> ? 05/15/24 0700 ? DD/ 1625 ? TD/TT: 05/14/24 1638 ? Investigation Lieutenant: ? Procedure Note Valeria, Image - 05/15/2024 [place] [address] XRay Report Signed Patient: Lori LandMR#: [id number] : 7Acct:[id number] Age/Sex: 68 / FADM Date: 05/04/24 Loc: [facility] 459-[address]: Erin Al NP Ordering Physician: Erin Al NP Date of Service: 05/14/24 Procedure(s): XR chest 1V Accession Number(s): [id number] cc: Lucrecia Teixeira; Erin Al NP EXAMINATION: XR CHEST CLINICAL INFORMATION: fever COMPARISON: May 04, 2024. TECHNIQUE: Frontal view of the chest was obtained. FINDINGS: Low lung volume. Mild prominence of the interstitial lung markings in the perihilar region. No gross consolidation pleural effusion or pneumothorax. Cardiomediastinal silhouette size is mildly prominent. Right-sided double-lumen central venous line catheter remains in the right atrium region. Mild multilevel thoracic spondylosis. Degenerative changes in the shoulders, right greater than left side. Patient's large body habitus.. XR/XR chest 1V IMPRESSION: Mild interstitial lung edema versus acute small airway inflammatory process. Electronically signed by: Pete Wright MD 05/15/2024 07:00 AM EDT RP Dictated By: Pete Head MD Signed By: <Electronically signed by Pete Mohan MDin OV> 05/15/24 0700 DD/ 1625 TD/TT: 05/14/24 1638 Investigation Lieutenant: [facility] External Provider IMG XR PROCEDURES Edited Result - Final * XR KUB and Upright 2 Views (05/11/2024 6:34 PM EDT) Anatomical Region Laterality Modality Radiographic Anya ging 05/11/2024 6:34 PM EDT Narrative 05/11/2024 6:36 PM EDT ? [facility] ?[address] ?[place] [address] ?XRay Report ? Signed ? Patient: Lori Land ?MR#: [id number] ?? [id number] ? : 1955 ?Acct:[id number] ? Age/Sex: 68 / F ?ADM Date: 05/04/24 ? Loc: [facility] ?459-1 ? Attending Dr: Erin Al BRAZER FURNACE ? Ordering Physician: Erin Al NP ?? Date of Service: 05/11/24 ?? Procedure(s): XR KUB ?? Accession Number(s): [id number] ? cc: Lucrecia Teixeira; Erin Al BRAZER FURNACE ? CLINICAL HISTORY: abdominal pain ? Radiograph of the abdomen 1 view ? Comparison: None ? Findings: ? 3 films were obtained. ?? Mild gaseous distention of multiple small bowel loops. ?? Large amount of retained stool throughout the colon. ?? No radiopaque foreign body. ?? Extensive arterial calcifications. ?? No acute osseous abnormality. ?? Partial visualization of a hemodialysis catheter. ? Impression: ?? 1. Nonobstructive bowel gas pattern. ?? 2. Probable mild small bowel ileus. ?? 3. Large colonic stool burden. ? This document has been electronically signed by: Rhiannon Clark, DO on ?? 05/11/2024 18:34:48 ? Dictated By: ?Rhiannon Clark MD ? Signed By: ?<Electronically signed by Rhiannon Clark MD in OV> ?05/11/241834 ? DD/ 33 ? TD/TT: 05/11/241833 ? Investigation Lieutenant: ? Procedure Note Donotjackinterpreter, Image - 05/11/[address] [address] XRay Report Signed Patient: Lori LandMR#: [id number] : 1955cct:[id number] Age/Sex: 68 / FADM Date: 05/04/24 Loc: [facility] 459-[address]: Erin Al NP Ordering Physician: Erin Al NP Date of Service: 05/11/24 Procedure(s): XR KUB Accession Number(s): [id number] cc: Lucrecia Teixeira; Erin Al NP CLINICAL HISTORY: abdominal pain Radiograph of the abdomen 1 view Comparison: None Findings: 3 films were obtained. Mild gaseous distention of multiple small bowel loops. Large amount of retained stool throughout the colon. No radiopaque foreign body. Extensive arterial calcifications. No acute osseous abnormality. Partial visualization of a hemodialysis catheter. Impression: 1. Nonobstructive bowel gas pattern. 2. Probable mild small bowel ileus. 3. Large colonic stool burden. This document has been electronically signed by: Rhiannon Clark DO on 05/11/2024 18:34:48 Dictated By: Rhiannon Clark MD Signed By: <Electronically signed by Rhiannon Clark MD in OV> 05/11/241834 DD/ 33 TD/TT: 05/11/241833 Investigation Lieutenant: [facility] External Provider IMG XR PROCEDURES Edited Result - Final * IR cvc replace central tunnel (05/09/2024 12:00 PM EDT) Anatomical Region Laterality Modality X-Ray Angiograph y 05/09/2024 12:0 0 PM EDT Narrative 05/09/2024 1:56 PM EDT ? [facility] ?[address] ?[place] [address] ?Interventional Radiology Rpt ? Signed ? Patient: Perera Franklin,Lori ?MR#: [id number] ?? [id number] ? : 1955 ?Acct:[id number] ? Age/Sex: 68 / F ?ADM Date: 05/04/24 ? Loc: [facility] ?459-1 ? Attending Dr: Tima Lal MD ? Ordering Physician: Tima Jimenes MD ?? Date of Service: 05/09/24 ?? Procedure(s): IR cvc replace central tunnel ?? Accession Number(s): [id number] ? cc: Tima Jimenes MD; Lucrecia Teixeira ? CLINICAL HISTORY: ?? End-stage renal disease. The patient presents to interventional ?? radiology for exchange of a malfunctioning tunneled central venous ?? catheter for hemodialysis. ? PROCEDURES: ?? Exchange of a 14.5 fr 23 cm tunneled, dual-lumen hemodialysis catheter ?? via right IJ approach. ? COMPLICATIONS: None. ?? ESTIMATED BLOOD LOSS: <5 ml ? FLUOROSCOPY TIME: 0.3 min ? PROCEDURE NOTE: ?? The procedure, risks, benefits, and alternatives were carefully ?? explained to patient's healthcare proxy via telephone, and written ?? informed consent was obtained. The patient was placed supine on the ?? fluoroscopy table. A timeout was performed. The right IJ dialysis ?? catheter and surrounding skin was prepped and draped in usual sterile ?? fashion. ? Local anesthesia was administered to the access site with lidocaine. A ?? 0.035 in wire was advanced through one of the ports of the dialysis ?? catheter to the IVC. The indwelling catheter was removed over wire and ?? a new 14.5 Hebrew 23 cm tip to cuff catheter was placed over the wire ?? and the tip was positioned at the cavoatrial junction. The catheter was ?? tested, flushed, and sutured to the skin with its tip in the high right ?? atrium. A permanent fluoroscopic image of the chest was saved to PACS. ?? The catheter ports were packed with heparin per routine protocol. ? FINDINGS: ?? 2. Replacement of a tunneled, dual-lumen hemodialysis catheter as above. ?? 3. Catheter flushes and aspirates very well with a 10 mL syringe. No ?? pneumothorax. ? IR/IR cvc replace central tunnel ?? IMPRESSION: ?? Exchange of a tunneled hemodialysis catheter in the right internal ?? jugular vein. ? PLAN: ?? -The catheter may be used immediately. ? Electronically signed by: ??Jose M Dumont MD ??05/09/2024 01:54 PM EDT RP ? Dictated By: ?Jose M Dumont MD ? Signed By: ?<Electronically signed by Jose M Dumont MD in OV> ?05/09/24 1354 ? DD/ 1200 ? TD/TT: 05/09/24 1313 ? Investigation Lieutenant: ? Procedure Note Doncurly, Image - 05/09/2024 [place] [address] Interventional Radiology Rpt Signed Patient: Lori LandMR#: [id number] : 1955cct:[id number] Age/Sex: 68 / FADM Date: 05/04/24 Loc: [facility] 459-[address]: Tima Lal MD Ordering Physician: Tima Jimenes MD Date of Service: 05/09/24 Procedure(s): IR cvc replace central tunnel Accession Number(s): [id number] cc: Tima Jimenes MD; Lucrecia Teixeira CLINICAL HISTORY: End-stage renal disease. The patient presents to interventional radiology for exchange of a malfunctioning tunneled central venous catheter for hemodialysis. PROCEDURES: Exchange of a 14.5 fr 23 cm tunneled, dual-lumen hemodialysis catheter via right IJ approach. COMPLICATIONS: None. ESTIMATED BLOOD LOSS: <5 ml FLUOROSCOPY TIME: 0.3 min PROCEDURE NOTE: The procedure, risks, benefits, and alternatives were carefully explained to patient's healthcare proxy via telephone, and written informed consent was obtained. The patient was placed supine on the fluoroscopy table. A timeout was performed. The right IJ dialysis catheter and surrounding skin was prepped and draped in usual sterile fashion. Local anesthesia was administered to the access site with lidocaine. A 0.035 in wire was advanced through one of the ports of the dialysis catheter to the IVC. The indwelling catheter was removed over wire and a new 14.5 Hebrew 23 cm tip to cuff catheter was placed over the wire and the tip was positioned at the cavoatrial junction. The catheter was tested, flushed, and sutured to the skin with its tip in the high right atrium. A permanent fluoroscopic image of the chest was saved to PACS. The catheter ports were packed with heparin per routine protocol. FINDINGS: 2. Replacement of a tunneled, dual-lumen hemodialysis catheter as above. 3. Catheter flushes and aspirates very well with a 10 mL syringe. No pneumothorax. IR/IR cvc replace central tunnel IMPRESSION: Exchange of a tunneled hemodialysis catheter in the right internal jugular vein. PLAN: -The catheter may be used immediately. Electronically signed by: Jose M Dumont MD 05/09/2024 01:54 PM EDT Dictated By: Jose M Dumont MD Signed By: <Electronically signed by Jose M Dumont MD in OV> 05/09/24 1354 DD/ 1200 TD/TT: 05/09/24 1313 Investigation Lieutenant: [facility] External Provider IMG IR PROCEDURES Final Result * CT Head w/o Contrast (05/08/2024 10:56 PM EDT) Only the most recent of3 resultswithin the time period is included. Anatomical Region Laterality Modality Head, Neck Computed Tomogra phy 05/08/2024 10:5 6 PM EDT Narrative 05/08/2024 10:57 PM EDT ? [facility] ?[address] ?[place] [address] ? CT Scan Report ? Signed ? Patient: Lori Land ?MR#: [id number] ?? [id number] ? : 1955 ?Acct:[id number] ? Age/Sex: 68 / F ?ADM Date: 03/22/25 ? Loc: [facility] ?459-1 ? Attending Dr: Tima Lal MD ? Ordering Physician: Annette Trotter PA-C ?? Date of Service: 05/08/24 ?? Procedure(s): CT head/brain wo IV con ?? Accession Number(s): [id number] ? cc: Lucrecia Teixeira; Annette Trotter PA-C ? Report Number: ?? [id number]: Total DLP = ??749.00 mGy-cm ? CLINICAL HISTORY: Ams ? CT head without contrast ? Comparison: CT/SR - CT HEAD/BRAIN WO IV CON - 05/04/24 09:20 EDT ? Findings: ?? No significant interval change in the appearance of the minimal right ?? parafalcine extra-axial blood, measuring up to 3.5 mm in thickness on ?? coronal image number 113 of series 7. No new foci of intracranial ?? hemorrhage are identified. No mass effect or midline shift. No ?? hydrocephalus. Moderate focus of left frontal encephalomalacia ?? redemonstrated with associated ex vacuo dilation of the left lateral ?? ventricle. ?? Mild mucosal thickening identified within the right ethmoid air cells with ?? minimal mucosal thickening at the left ethmoid air cells. The bilateral ?? mastoid air cells appear clear. ?? No acute skull fracture. Postsurgical changes compatible with left ?? craniotomy are redemonstrated. Skin zeyad are redemonstrated over the ?? occipital scalp near the midline. ? Impression: ?? 1. Stable, minimal right parafalcine blood, measuring up to 3.5 mm in ?? thickness. This is unchanged in appearance as compared to the prior ?? examination. No mass effect or midline shift. No new foci of intracranial ?? hemorrhage are identified. ? This document has been electronically signed by: Tito Coleman MD on ?? 05/08/2024 22:56:18 ? Dictated By: ?Tito Coleman MD ? Signed By: ?<Electronically signed by Tito Coleman MD in OV> ? 05/08/242256 ? DD/ 55 ? TD/TT: 05/08/242255 ? Investigation Lieutenant: ? Procedure Note Valeria, Violetta - 05/08/2024 [place] [id number] [place] [address] CT Scan Report Signed Patient: Lori LandMR#: [id number] : 1955cct:[id number] Age/Sex: 68 / FADM Date: 05/04/24 Loc: .[facility] 459-[address]: Tima Lal MD Ordering Physician: Annette Trotter PA-C Date of Service: 05/08/24 Procedure(s): CT head/brain wo IV con Accession Number(s): [id number] cc: Lucrecia Teixeira; Annette Trotter PA-C Report Number: [id number]: Total DLP = 749.00 mGy-cm CLINICAL HISTORY: Ams CT head without contrast Comparison: CT/SR - CT HEAD/BRAIN WO IV CON - 05/04/24 09:20 EDT Findings: No significant interval change in the appearance of the minimal right parafalcine extra-axial blood, measuring up to 3.5 mm in thickness on coronal image number 113 of series 7. No new foci of intracranial hemorrhage are identified. No mass effect or midline shift. No hydrocephalus. Moderate focus of left frontal encephalomalacia redemonstrated with associated ex vacuo dilation of the left lateral ventricle. Mild mucosal thickening identified within the right ethmoid air cells with minimal mucosal thickening at the left ethmoid air cells. The bilateral mastoid air cells appear clear. No acute skull fracture. Postsurgical changes compatible with left craniotomy are redemonstrated. Skin zeyad are redemonstrated over the occipital scalp near the midline. Impression: 1. Stable, minimal right parafalcine blood, measuring up to 3.5 mm in thickness. This is unchanged in appearance as compared to the prior examination. No mass effect or midline shift. No new foci of intracranial hemorrhage are identified. This document has been electronically signed by: Tito Coleman MD on 05/08/2024 22:56:18 Dictated By: Tito Coleman MD Signed By: <Electronically signed by Tito Coleman MD in OV> 05/08/242256 DD/ 55 TD/TT: 05/08/242255 Investigation Lieutenant: [facility] External Provider IM CT PROCEDURES Edited Result - Final * CT Pelvis w/o Contrast (05/05/2024 4:00 PM EDT) Anatomical Region Laterality Modality Body, Pelvis Computed Tomogra phy 05/05/2024 4:00 PM EDT Narrative 05/05/2024 4:02 PM EDT ? [facility] ?[address] ?[place] [address] ? CT Scan Report ? Signed ? Patient: Lori Land ?MR#: [id number] ?? [id number] ? : 1955 ?Acct:[id number] ? Age/Sex: 68 / F ?ADM Date: 05/04/24 ? Loc: [facility] ?459-1 ? Attending Dr: Juan Nogueira MD ? Ordering Physician: Juan Nogueira MD ?? Date of Service: 05/05/24 ?? Procedure(s): CT pelvis wo IV con ?? Accession Number(s): [id number] ? cc: Lucrecia Teixeira; Juan Nogueira MD ? Report Number: ?? [id number]: Total DLP = ??555.00 mGy-cm ? CLINICAL HISTORY: fall ,right hip lucency ? CT pelvis without contrast ? Comparison: CR - XR HIPS MARCIO MIN 3V - 05/04/24 13:37 EDT ?? CR - XR HIP RT W PEL1V - 04/08/24 00:44 EST ?? CT/AK/SR - CT ABDOMEN PELVIS WO IV CON - 03/23/24 10:26 EST ? Findings: ? No acute fractures are identified. ?? Alignment of the hip joints is anatomic. ?? Degenerative change of both hip joints as before. ?? Pubic rami are intact. No CT correlate to the reported radiographic ?? abnormality of the right inferior pubic ramus. ?? Sacroiliac joints and pubic symphysis are anatomically aligned. ?? Partial visualization of a bowel containing ventral hernia on the most ?? cephalad axial image. This is better depicted on the patient's prior CT of ?? the abdomen and pelvis from March 23, 2024. ? IMPRESSION: ?? No acute fracture. ? This document has been electronically signed by: Ra Ortiz MD on ?? 05/05/2024 16:00:15 ? Dictated By: ?Ra Ortiz MD ? Signed By: ?<Electronically signed by Ra Ortiz MD in OV> ? 05/05/24 1601 ? DD/ 1600 ? TD/TT: 05/05/24 1600 ? Investigation Lieutenant: ? Procedure Note Donotjahter, Image - 05/05/[address] [place] [address] [address] Scan Report Signed Patient: Lori LandMR#: [id number] : 1955cct:[id number] Age/Sex: 68 / FADM Date: 05/04/24 Loc: [facility] 459-[address]: Juan Nogueira MD Ordering Physician: Juan Nogueira MD Date of Service: 05/05/24 Procedure(s): CT pelvis wo IV con Accession Number(s): [id number] cc: Lucrecia Teixeira; Juan Nogueira MD Report Number: [id number]: Total DLP = 555.00 mGy-cm CLINICAL HISTORY: fall ,right hip lucency CT pelvis without contrast Comparison: CR - XR HIPS MARCIO MIN 3V - 05/04/24 13:37 EDT CR - XR HIP RT W PEL1V - 04/08/24 00:[address]/AK/SR - CT ABDOMEN PELVIS WO IV CON - 03/23/24 10:26 EST Findings: No acute fractures are identified. Alignment of the hip joints is anatomic. Degenerative change of both hip joints as before. Pubic rami are intact. No CT correlate to the reported radiographic abnormality of the right inferior pubic ramus. Sacroiliac joints and pubic symphysis are anatomically aligned. Partial visualization of a bowel containing ventral hernia on the most cephalad axial image. This is better depicted on the patient's prior CT of the abdomen and pelvis from March 23, 2024. IMPRESSION: No acute fracture. This document has been electronically signed by: Ra Ortiz MD on 05/05/2024 16:00:15 Dictated By: Ra Ortiz MD Signed By: <Electronically signed by Ra Ortiz MD in OV> 05/05/24 1601 DD/ 1600 TD/TT: 05/05/24 1600 Investigation Lieutenant: us [facility] External Provider IMG CT PROCEDURES Edited Result - Final * XR Hips Bilateral 3 or 4 Views with or without Pelvis (05/04/2024 2:06 PM EDT) Anatomical Region Laterality Modality Lower Extremities, Hip Bilateral Radiograp hic Imaging 05/04/2024 2:06 PM EDT Narrative 05/04/2024 2:09 PM EDT ? [facility] ?[address] ?[place], [place] [address] ?XRay Report ? Signed ? Patient: Lori Land ?MR#: [id number] ?? [id number] ? : 1955 ?Acct:[id number] ? Age/Sex: 68 / F ?ADM Date: 05/04/24 ? Loc: [facility] ?IMC-5 ? Attending Dr: Rigoberto JULES ? Ordering Physician: Rigoberto Cueto ?? Date of Service: 05/04/24 ?? Procedure(s): XR hips MARCIO min 3V ?? Accession Number(s): [id number] ? cc: Rigoberto Cueto; Lucrecia Teixeira ? CLINICAL HISTORY: Fall at home on right hip ? 5 view, pelvis and bilateral hips ? Comparison: 04/08/2024 12:44 AM EST: CR: XR HIP RT W PEL ? Findings: ?? Seen only on one view, there is a questioned lucency along the right ?? inferior pubic ramus which may well be artifactual. ?? The bilateral femoral heads are well directed towards their respective ?? acetabula. No proximal femoral fracture. ?? Diffuse vascular calcification. ? IMPRESSION: ?? Faint lucency along the right inferior pubic ramus seen only on one view ?? and possibly artifactual. If there is high clinical concern for fracture, ?? a noncontrast pelvic CT could be considered. ? This document has been electronically signed by: Jimy Hoffman MD on ?? 05/04/2024 14:06:23 ? Dictated By: ?Jimy Hoffman MD ? Signed By: ?<Electronically signed by Jimy Hoffman MD in OV> ? 05/04/24 1407 ? DD/ 1406 ? TD/TT: 05/04/24 1406 ? Investigation Lieutenant: ? Procedure Note Donotuseinterpreter, Image - 05/04/[address] [address] XRay Report Signed Patient: Lori LandMR#: [id number] : 7Acct:[id number] Age/Sex: 68 / FADM Date: 05/04/24 [facility]: Rigoberto JULES Ordering Physician: Rigoberto Cueto Date of Service: 05/04/24 Procedure(s): XR hips MARCIO min 3V Accession Number(s): [id number] cc: Rigoberto Cueto; Lucrecia Teixeira CLINICAL HISTORY: Fall at home on right hip 5 view, pelvis and bilateral hips Comparison: 04/08/2024 12:44 AM EST: CR: XR HIP RT W PEL Findings: Seen only on one view, there is a questioned lucency along the right inferior pubic ramus which may well be artifactual. The bilateral femoral heads are well directed towards their respective acetabula. No proximal femoral fracture. Diffuse vascular calcification. IMPRESSION: Faint lucency along the right inferior pubic ramus seen only on one view and possibly artifactual. If there is high clinical concern for fracture, a noncontrast pelvic CT could be considered. This document has been electronically signed by: Jimy Hoffman MD on 05/04/2024 14:06:23 Dictated By: Jimy Hoffman MD Signed By: <Electronically signed by Jimy Hoffman MD in OV> 05/04/24 1407 DD/ 1406 TD/TT: 05/04/24 1406 Investigation Lieutenant: [facility] External Provider IMG XR PROCEDURES Edited Result - Final * Lactic Acid (05/04/2024 11:09 AM EDT) Lactic Acid 1.6 0.5 - 2.0 mmol/L [facility] 05/04/2024 11:0 9 AM EDT 05/04/2024 11:12 AM EDT us Generic External Data Provider LAB BLOOD ORDERAB LES Final Result Performing Organization Address [facility]/ZIP Co de Phone Number [facility] [address] [place] [address] [phone] * Red blood count (05/04/2024 3:30 AM EDT) Red Blood Cells: [id number] OP RC TRANSFUSED 05/04/24 0430 [facility] 05/04/2024 3:30 AM EDT 05/04/2024 3:33 AM EDT Generic External Data Provider LAB BLOOD ORDERAB LES Final Result Performing Organization Address [facility] de Phone Number [facility] [address] [place] [address] [phone] * CT Cervical Spine w/o Contrast (05/04/2024 3:28 AM EDT) Anatomical Region Laterality Modality Spine, C-spine Computed Tomogra phy 05/04/2024 3:28 AM EDT Narrative 05/04/2024 3:30 AM EDT ? [facility] ?[address] ?[place] [address] ? CT Scan Report ? Signed ? Patient: Trever Reid,Lori ?MR#: [id number] ?? [id number] ? : 1955 ?Acct:[id number] ? Age/Sex: 68 / F ?ADM Date: 05/04/24 ? Loc: HO.ED ? Attending Dr: ? Ordering Physician: Gunnar Louie MD ?? Date of Service: 05/04/24 ?? Procedure(s): CT cervical spine wo IV con ?? Accession Number(s): [id number] ? cc: Lucrecia Teixeira; Gunnar Louie MD ? Report Number: ?? [id number]: Total DLP = 1238.00 mGy-cm ? CLINICAL HISTORY: fall ? CT Cervical Spine WO Contrast ? COMPARISON: None ? FINDINGS: ?? No acute fracture or malalignment. ?? Degenerative changes in the spine. ?? Chronic appearing upper left rib deformities. ?? Soft tissues are normal. ?? Calcified left upper lobe granuloma. ?? Right-sided dual-lumen dialysis catheter in place with distal catheter in ?? the SVC as far as visible ? IMPRESSION: ?? No acute findings. ?? Nonemergent/incidental findings above. ? This document has been electronically signed by: Sammy Elise MD on ?? 05/04/2024 03:28:08 ? Dictated By: ?Sammy Elise MD ? Signed By: ?<Electronically signed by Sammy Elise MD in OV> ?05/04/24 0329 ? DD/ 0328 ? TD/TT: 05/04/24 0328 ? Investigation Lieutenant: ? Procedure Note Doncurly, Violetta - 05/04/[address] [place] [address] [address] Scan Report Signed Patient: Lori LandMR#: [id number] : 1955cct:[id number] Age/Sex: 68 / FADM Date: 05/04/24 Loc: HO.ED Attending Dr: Ordering Physician: Gunnar Louie MD Date of Service: 05/04/24 Procedure(s): CT cervical spine wo IV con Accession Number(s): [id number] cc: Lucrecia Teixeira; Gunnar Louie MD Report Number: [id number]: Total DLP = 1238.00 mGy-cm CLINICAL HISTORY: fall CT Cervical Spine WO Contrast COMPARISON: None FINDINGS: No acute fracture or malalignment. Degenerative changes in the spine. Chronic appearing upper left rib deformities. Soft tissues are normal. Calcified left upper lobe granuloma. Right-sided dual-lumen dialysis catheter in place with distal catheter in the SVC as far as visible IMPRESSION: No acute findings. Nonemergent/incidental findings above. This document has been electronically signed by: Sammy Elise MD on 05/04/2024 03:28:08 Dictated By: Sammy Elise MD Signed By: <Electronically signed by Sammy Elise MD in OV> 05/04/24328 DD/ 7 TD/TT: 05/04/24327 Investigation Lieutenant: us [facility] External Provider IMG CT PROCEDURES Edited Result - Final * POCT Glucose (04/23/2024 9:28 AM EDT) Glucose Blood, POC 196 60 - 200 mg/dL Blood Capillary blood specimen / Unknown 04/23/2024 9:28 AM EDT us Lucrecia Teixeira MD POINT OF CARE TEST ENTER/EDIT ORDERABLES Final Result * XR Foot 3+ Views Left (04/08/2024 1:39 AM EST) Anatomical Region Laterality Modality Lower Extremities, Foot Left Radiogra phic Imaging 04/08/2024 1:39 AM EST Narrative 04/08/2024 1:40 AM EST ? [facility] ?[address] ?[place] [address] ?XRay Report ? Signed ? Patient: Perera Franklin,Lori ?MR#: [id number] ?? [id number] ? : 1955 ?Acct:[id number] ? Age/Sex: 68 / F ?ADM Date: 04/07/24 ? Loc: HO.ED ? Attending Dr: ? Ordering Physician: Elo Neves ?? Date of Service: 04/08/24 ?? Procedure(s): XR foot LT min 3V ?? Accession Number(s): [id number] ? cc: Elo Neves; Lucrecia Teixeira ? CLINICAL HISTORY: infection recent amputation 5th dig ? 3 view left foot ? Comparison: X-rays of the right foot from 03/21/2024 ? Findings: ?? New post amputation changes across the distal 5th metatarsal. Soft tissue ?? swelling is nonspecific and increased of the forefoot. Osteoarthritis is ?? multifocal. Soft tissue gas concerning for ulceration including distally ?? in the superficial to remaining 5th ray. ?? Vascular calcifications noted. Small effusion of the ankle. No dislocation ?? of the imaged remaining foot. ?? No radiopaque retained foreign body. ? IMPRESSION: ?? 1. Soft tissue gas concerning for distal ulceration laterally of the ?? remaining foot. ? 2. Post amputation change of the 5th metatarsal is distal and new when ?? compared to 03/21/2024. ? This document has been electronically signed by: Suman Berger MD on ?? 04/08/2024 01:39:39 ? Dictated By: ?Suman Berger MD ? Signed By: ?<Electronically signed by Suman Berger MD in OV> ? 04/08/24 0140 ? DD/ 0139 ? TD/TT: 04/08/24138 ? Investigation Lieutenant: ? Procedure Note Donotuseinterpreter, Image - 04/08/[address] [address] XRay Report Signed Patient: Lori LandMR#: [id number] : 1955cct:[id number] Age/Sex: 68 / FADM Date: 04/07/24 Loc: HO.ED Attending Dr: Ordering Physician: Elo Neves Date of Service: 04/08/24 Procedure(s): XR foot LT min 3V Accession Number(s): [id number] cc: Elo Neves; Lucrecia Teixeira CLINICAL HISTORY: infection recent amputation 5th dig 3 view left foot Comparison: X-rays of the right foot from 03/21/2024 Findings: New post amputation changes across the distal 5th metatarsal. Soft tissue swelling is nonspecific and increased of the forefoot. Osteoarthritis is multifocal. Soft tissue gas concerning for ulceration including distally in the superficial to remaining 5th ray. Vascular calcifications noted. Small effusion of the ankle. No dislocation of the imaged remaining foot. No radiopaque retained foreign body. IMPRESSION: 1. Soft tissue gas concerning for distal ulceration laterally of the remaining foot. 2. Post amputation change of the 5th metatarsal is distal and new when compared to 03/21/2024. This document has been electronically signed by: Suman Berger MD on 04/08/2024 01:39:39 Dictated By: Suman Berger MD Signed By: <Electronically signed by Suman Berger MD in OV> 04/08/24 014 DD/ 8 TD/TT: 04/08/24138 Investigation Lieutenant: us [facility] External Provider IMG XR PROCEDURES Edited Result - Final * XR Hip right with Pelvis 1 view (04/08/2024 1:36 AM EST) Anatomical Region Laterality Modality Lower Extremities, Hip Bilateral Radiograp hic Imaging 04/08/2024 1:36 AM EST Narrative 04/08/2024 1:38 AM EST ? [facility] ?[address] ?[place] [address] ?XRay Report ? Signed ? Patient: Trever Reid,Lori ?MR#: [id number] ?? [id number] ? : 1955 ?Acct:[id number] ? Age/Sex: 68 / F ?ADM Date: 04/07/24 ? Loc: HO.ED ? Attending Dr: ? Ordering Physician: Elo Neves ?? Date of Service: 04/08/24 ?? Procedure(s): XR hip RT w PEL1V ?? Accession Number(s): [id number] ? cc: Elo Neves; Lucrecia Teixeira ? CLINICAL HISTORY: trauma ? 3 view, pelvis and right hip ? Comparison: None ? Findings: ?? Deformity of the proximal right femur appears old/chronic. No acute or ?? displaced fracture. Calcific tendinitis given noted adjacent to right ?? greater trochanter. Mild pelvis deformities appear old chronic. ?? Zqbxobyw-un-ujonpa osteoarthritis of both hips. ?? Vascular calcifications are redemonstrated. ? IMPRESSION: ?? 1. No acute fracture or dislocation. ? 2. Osteoarthritis of the both hips noted ? This document has been electronically signed by: Suman Berger MD on ?? 04/08/2024 01:36:41 ? Dictated By: ?Suman Berger MD ? Signed By: ?<Electronically signed by Suman Berger MD in OV> ? 04/08/24 0138 ? DD/ 0136 ? TD/TT: 04/08/24 0136 ? Investigation Lieutenant: ? Procedure Note Violetta Shaw - 04/08/2024 [id number] [place] [address] XRay Report Signed Patient: Perera Franklin,Lori#: [id number] : 7Acct:[id number] Age/Sex: 68 / FADM Date: 04/07/24 Loc: HO.ED Attending Dr: Ordering Physician: Elo Neves Date of Service: 04/08/24 Procedure(s): XR hip RT w PEL1V Accession Number(s): [id number] cc: Elo Neves; Lucrecia Teixeira CLINICAL HISTORY: trauma 3 view, pelvis and right hip Comparison: None Findings: Deformity of the proximal right femur appears old/chronic. No acute or displaced fracture. Calcific tendinitis given noted adjacent to right greater trochanter. Mild pelvis deformities appear old chronic. Qqdzbkvy-vp-rzydbi osteoarthritis of both hips. Vascular calcifications are redemonstrated. IMPRESSION: 1. No acute fracture or dislocation. 2. Osteoarthritis of the both hips noted This document has been electronically signed by: Suman Berger MD on 04/08/2024 01:36:41 Dictated By: Suman Berger MD Signed By: <Electronically signed by Suman Berger MD in OV> 04/08/24137 DD/ 5 TD/TT: 04/08/24135 Investigation Lieutenant: [facility] External Provider IMG XR PROCEDURES Edited Result - Final * IR CVC Insert Central Tunnel (03/27/2024 1:00 PM EST) Anatomical Region Laterality Modality Body X-Ray Angiograph y 03/27/2024 1:00 PM EST Narrative 04/08/2024 4:20 PM EST ? [facility] ?[address] ?[place] [address] ?Interventional Radiology Rpt ? Signed ? Patient: Lori Land ?MR#: [id number] ?? [id number] ? : 1955 ?Acct:[id number] ? Age/Sex: 68 / F ?ADM Date: 03/22/ ? Loc: HO.IMC ?484-1 ? Attending Dr: Chaya Rodriguez MD ? Ordering Physician: Moses Reynoso MD ?? Date of Service: 03/27/24 ?? Procedure(s): IR cvc insert central tunnel ?? Accession Number(s): [id number] ? cc: Moses Reynoso MD; Lucrecia Teixeira ? CLINICAL HISTORY: ?? End-stage renal disease. The patient presents to interventional ?? radiology for placement of a tunneled central venous catheter for ?? hemodialysis. ? PROCEDURES: ?? 1. Real-time ultrasound-guided access into the right internal jugular ?? vein after documentation of selected vessel patency, and permanent ?? imaging storing in the patient record. ?? 2. Placement of a 14.5 fr 23 cm tunneled, dual-lumen hemodialysis ?? catheter. ? Clinician: ?? Greg Kumari PA-C ? MEDICATIONS: ?? -Fentanyl 75 mcg, Lidocaine 1% 10 mL SQ. ?? -Antibiotics: Ancef ?? -For additional details, please see nursing flowsheet. ? COMPLICATIONS: None. ?? ESTIMATED BLOOD LOSS: <5 ml ?? SPECIMENS: None ? FLUOROSCOPY TIME: 1.3 min ? PROCEDURE NOTE: ?? The procedure, risks, benefits, and alternatives were carefully ?? explained to patient, and written informed consent was obtained. The ?? patient was placed supine on the fluoroscopy table. A timeout was ?? performed. The right neck and chest was prepped and draped in usual ?? sterile fashion. ? Local anesthesia was administered to the access site with lidocaine. ?? Under ultrasound guidance, the right internal jugular vein was accessed ?? with a 5 Fr micropuncture set. A 0.035 in wire was advanced to the IVC ?? to maintain access during the tunneling process. Next, subcutaneous ?? lidocaine was administered to the chest. Using blunt dissection, a ?? subcutaneous tunnel was created that connects from the upper chest to ?? the venotomy site. The dialysis catheter was pulled through the tunnel. ?? The tract in the vein was dilated and a peel-away sheath was advanced ?? over the wire. The catheter was advanced through the sheath, which was ?? subsequently peeled away. The catheter was tested, flushed, and sutured ?? to the skin with its tip in the high right atrium. A permanent ?? fluoroscopic image of the chest was saved to PACS. The catheter ports ?? were packed with heparin per routine protocol. The right IJ Ye was ?? then removed. ? The patient was stable after the procedure and was transferred to the ?? post anesthesia care unit. This procedure was performed under moderate ?? sedation with a dedicated nurse and continuous monitoring of vital ?? signs. ? FINDINGS: ?? 1. Patent right internal jugular vein. ?? 2. Placement of a tunneled, dual-lumen hemodialysis catheter as above. ?? 3. Catheter flushes and aspirates very well with a 10 mL syringe. No ?? pneumothorax. ? IR/IR cvc insert central tunnel ?? IMPRESSION: ?? Placement of a tunneled hemodialysis catheter in the right internal ?? jugular vein and removal of the right internal jugular vein ?? non-tunneled catheter. ? PLAN: ?? -The catheter may be used immediately. ? This procedure was performed by Greg Kumari PA-C, and directly ?? supervised by Dr. Dumont. ? Electronically signed by: ??Jose M Dumont MD ??04/08/2024 04:17 PM EST RP ? Dictated By: ?Greg Kumari ? Signed By: ?<Electronically signed by Greg Kumari in OV> ? 04/08/247 ?<Electronically signed by Jose M Dumont MD in OV> ? 04/08/24 1620 ? DD/ 1300 ? TD/TT: 03/27/24 1423 ? Investigation Lieutenant: ? Procedure Note Valeria, Image - 04/08/2024 [place] [address] Interventional Radiology Rpt Signed Patient: Lori LandMR#: [id number] : 1955cct:[id number] Age/Sex: 68 / FADM Date: 03/22/24 Loc: [facility] 484-[address]: Chaya Rodriguez MD Ordering Physician: Moses Reynoso MD Date of Service: 03/27/24 Procedure(s): IR cvc insert central tunnel Accession Number(s): [id number] cc: Moses Reynoso MD; Lucrecia Teixeira CLINICAL HISTORY: End-stage renal disease. The patient presents to interventional radiology for placement of a tunneled central venous catheter for hemodialysis. PROCEDURES: 1. Real-time ultrasound-guided access into the right internal jugular vein after documentation of selected vessel patency, and permanent imaging storing in the patient record. 2. Placement of a 14.5 fr 23 cm tunneled, dual-lumen hemodialysis catheter. Clinician: Greg Kumari PA-C MEDICATIONS: -Fentanyl 75 mcg, Lidocaine 1% 10 mL SQ. -Antibiotics: Ancef -For additional details, please see nursing flowsheet. COMPLICATIONS: None. ESTIMATED BLOOD LOSS: <5 ml SPECIMENS: None FLUOROSCOPY TIME: 1.3 min PROCEDURE NOTE: The procedure, risks, benefits, and alternatives were carefully explained to patient, and written informed consent was obtained. The patient was placed supine on the fluoroscopy table. A timeout was performed. The right neck and chest was prepped and draped in usual sterile fashion. Local anesthesia was administered to the access site with lidocaine. Under ultrasound guidance, the right internal jugular vein was accessed with a 5 Fr micropuncture set. A 0.035 in wire was advanced to the IVC to maintain access during the tunneling process. Next, subcutaneous lidocaine was administered to the chest. Using blunt dissection, a subcutaneous tunnel was created that connects from the upper chest to the venotomy site. The dialysis catheter was pulled through the tunnel. The tract in the vein was dilated and a peel-away sheath was advanced over the wire. The catheter was advanced through the sheath, which was subsequently peeled away. The catheter was tested, flushed, and sutured to the skin with its tip in the high right atrium. A permanent fluoroscopic image of the chest was saved to PACS. The catheter ports were packed with heparin per routine protocol. The right IJ Ye was then removed. The patient was stable after the procedure and was transferred to the post anesthesia care unit. This procedure was performed under moderate sedation with a dedicated nurse and continuous monitoring of vital signs. FINDINGS: 1. Patent right internal jugular vein. 2. Placement of a tunneled, dual-lumen hemodialysis catheter as above. 3. Catheter flushes and aspirates very well with a 10 mL syringe. No pneumothorax. IR/IR cvc insert central tunnel IMPRESSION: Placement of a tunneled hemodialysis catheter in the right internal jugular vein and removal of the right internal jugular vein non-tunneled catheter. PLAN: -The catheter may be used immediately. This procedure was performed by Greg Kumari PA-C, and directly supervised by Dr. Dumont. Electronically signed by: Jose M Dumont MD 04/08/2024 04:17 PM EST RP Dictated By: Greg Kumari Signed By: <Electronically signed by Greg Kumari in OV> 04/08/24 1617 <Electronically signed by Jose M Dumont MD in OV> 04/08/24 1620 DD/ 1300 TD/TT: 03/27/24 1423 Investigation Lieutenant: us [facility] External Provider IMG IR PROCEDURES Final Result * IR US Guide - Venous Access (03/22/2024 2:37 PM EST) Anatomical Region Laterality Modality X-Ray Angiograph y 03/22/2024 2:37 PM EST Narrative 03/26/2024 4:55 PM EST ? [facility] ?[address] ?[place] [address] ?Interventional Radiology Rpt ? Signed ? Patient: Perera Franklin,Lori ?MR#: [id number] ?? [id number] ? : 1955 ?Acct:[id number] ? Age/Sex: 68 / F ?ADM Date: 03/22/24 ? Loc: HO.IMC ?484-1 ? Attending Dr: Chaya Rodriguez MD ? Ordering Physician: Moses Reynoso MD ?? Date of Service: 03/22/24 ?? Procedure(s): IR us guide venous access ?? Accession Number(s): [id number] ? cc: Moses Reynoso MD; Lucrecia Teixeira ? CLINICAL HISTORY: ?? Patient requires dialysis. The patient presents to interventional ?? radiology for placement of a non-tunneled central venous catheter for ?? hemodialysis. ? PROCEDURES: ?? 1. Real-time ultrasound-guided access into the right internal jugular ?? vein after documentation of selected vessel patency, and permanent ?? imaging storing in the patient record. ?? 2. Placement of a 12.0 fr 20 cm non-tunneled, triple-lumen hemodialysis ?? catheter. ? Clinician: ?? Greg Kumari PA-C ? MEDICATIONS: ?? -Lidocaine 1% 10 mL SQ. ?? -For additional details, please see nursing flowsheet. ? COMPLICATIONS: None. ?? ESTIMATED BLOOD LOSS: <5 ml ?? SPECIMENS: None ? FLUOROSCOPY TIME: 0.6 min ? PROCEDURE NOTE: ?? The procedure, risks, benefits, and alternatives were carefully ?? explained to patient, and written informed consent was obtained. The ?? patient was placed supine on the fluoroscopy table. A timeout was ?? performed. The right neck and chest was prepped and draped in usual ?? sterile fashion. ? Local anesthesia was administered to the access site with lidocaine. ?? Under ultrasound guidance, the right internal jugular vein was accessed ?? with a 4 Fr micropuncture set. A 0.035 in wire was advanced into the ?? IVC. The tract in the vein was serially dilated. Over the wire, a 12.0 ?? fr 20 cm non-tunneled, triple-lumen hemodialysis catheter was advanced, ?? with the tip located at the cavoatrial junction. The wire was removed. ?? The catheter was tested, flushed, and sutured to the skin. A permanent ?? fluoroscopic image of the chest was saved to PACS. ? The patient was stable after the procedure and was transferred to the ?? medical floor. There were no immediate complications. ? FINDINGS: ?? 1. Patent right internal jugular vein. ?? 2. Placement of a non-tunneled, triple-lumen hemodialysis catheter as ?? above. ?? 3. Catheter flushes and aspirates very well with a 10 mL syringe. No ?? pneumothorax. ? IR/IR us guide venous access ?? IMPRESSION: ?? Placement of a non-tunneled hemodialysis catheter in the right internal ?? jugular vein. ? PLAN: ?? -The catheter may be used immediately. ? This procedure was performed by Greg Kumari PA-C, and directly ?? supervised by Dr. Dumont. ? Electronically signed by: ??Jose M Dumont MD ??03/26/2024 04:51 PM EST RP ? Dictated By: ?Greg Kumari ? Signed By: ?<Electronically signed by Greg Kumari in OV> ? 03/26/24 1651 ?<Electronically signed by Jose M Dumont MD in OV> ? 03/26/24 1654 ? DD/ 1437 ? TD/TT: 03/22/24 1439 ? Investigation Lieutenant: ? Procedure Note Valeria, Image - 03/26/[address] [place] [address] Interventional Radiology Rpt Signed Patient: Lori LandMR#: [id number] : 1955cct:[id number] Age/Sex: 68 / FADM Date: 03/22/24 Loc: [facility] 484-[address]: Chaya Rodriguez MD Ordering Physician: Moses Reynoso MD Date of Service: 03/22/24 Procedure(s): IR us guide venous access Accession Number(s): [id number] cc: Moses Reynoso MD; Lucrecia Teixeira CLINICAL HISTORY: Patient requires dialysis. The patient presents to interventional radiology for placement of a non-tunneled central venous catheter for hemodialysis. PROCEDURES: 1. Real-time ultrasound-guided access into the right internal jugular vein after documentation of selected vessel patency, and permanent imaging storing in the patient record. 2. Placement of a 12.0 fr 20 cm non-tunneled, triple-lumen hemodialysis catheter. Clinician: Greg Kumari PA-C MEDICATIONS: -Lidocaine 1% 10 mL SQ. -For additional details, please see nursing flowsheet. COMPLICATIONS: None. ESTIMATED BLOOD LOSS: <5 ml SPECIMENS: None FLUOROSCOPY TIME: 0.6 min PROCEDURE NOTE: The procedure, risks, benefits, and alternatives were carefully explained to patient, and written informed consent was obtained. The patient was placed supine on the fluoroscopy table. A timeout was performed. The right neck and chest was prepped and draped in usual sterile fashion. Local anesthesia was administered to the access site with lidocaine. Under ultrasound guidance, the right internal jugular vein was accessed with a 4 Fr micropuncture set. A 0.035 in wire was advanced into the IVC. The tract in the vein was serially dilated. Over the wire, a 12.0 fr 20 cm non-tunneled, triple-lumen hemodialysis catheter was advanced, with the tip located at the cavoatrial junction. The wire was removed. The catheter was tested, flushed, and sutured to the skin. A permanent fluoroscopic image of the chest was saved to PACS. The patient was stable after the procedure and was transferred to the medical floor. There were no immediate complications. FINDINGS: 1. Patent right internal jugular vein. 2. Placement of a non-tunneled, triple-lumen hemodialysis catheter as above. 3. Catheter flushes and aspirates very well with a 10 mL syringe. No pneumothorax. IR/IR us guide venous access IMPRESSION: Placement of a non-tunneled hemodialysis catheter in the right internal jugular vein. PLAN: -The catheter may be used immediately. This procedure was performed by Greg Kumari PA-C, and directly supervised by Dr. Dumont. Electronically signed by: Jose M Dumont MD 03/26/2024 04:51 PM EST RP Dictated By: Greg Kumari Signed By: <Electronically signed by Greg Kumari in OV> 03/26/24 1651 <Electronically signed by Jose M Dumont MD in OV> 03/26/24 1654 DD/ 1437 TD/TT: 03/22/24 1439 Investigation Lieutenant: us [facility] External Provider IMG IR PROCEDURES Final Result * IR cvc insert non tunnel (03/22/2024 12:30 PM EST) Anatomical Region Laterality Modality X-Ray Angiograph y 03/22/2024 12:3 0 PM EST Narrative 03/26/2024 4:55 PM EST ? [facility] ?[address] ?[place] [address] ?Interventional Radiology Rpt ? Signed ? Patient: Lori Land ?MR#: [id number] ?? [id number] ? : 1955 ?Acct:[id number] ? Age/Sex: 68 / F ?ADM Date: 03/22/24 ? Loc: HO.IMC ?484-1 ? Attending Dr: Chaya Rodriguez MD ? Ordering Physician: Moses Reynoso MD ?? Date of Service: 03/22/24 ?? Procedure(s): IR cvc insert non tunnel ?? Accession Number(s): [id number] ? cc: Moses Reynoso MD; Lucrecia Teixeira ? CLINICAL HISTORY: ?? Patient requires dialysis. The patient presents to interventional ?? radiology for placement of a non-tunneled central venous catheter for ?? hemodialysis. ? PROCEDURES: ?? 1. Real-time ultrasound-guided access into the right internal jugular ?? vein after documentation of selected vessel patency, and permanent ?? imaging storing in the patient record. ?? 2. Placement of a 12.0 fr 20 cm non-tunneled, triple-lumen hemodialysis ?? catheter. ? Clinician: ?? Greg Kumari PA-C ? MEDICATIONS: ?? -Lidocaine 1% 10 mL SQ. ?? -For additional details, please see nursing flowsheet. ? COMPLICATIONS: None. ?? ESTIMATED BLOOD LOSS: <5 ml ?? SPECIMENS: None ? FLUOROSCOPY TIME: 0.6 min ? PROCEDURE NOTE: ?? The procedure, risks, benefits, and alternatives were carefully ?? explained to patient, and written informed consent was obtained. The ?? patient was placed supine on the fluoroscopy table. A timeout was ?? performed. The right neck and chest was prepped and draped in usual ?? sterile fashion. ? Local anesthesia was administered to the access site with lidocaine. ?? Under ultrasound guidance, the right internal jugular vein was accessed ?? with a 4 Fr micropuncture set. A 0.035 in wire was advanced into the ?? IVC. The tract in the vein was serially dilated. Over the wire, a 12.0 ?? fr 20 cm non-tunneled, triple-lumen hemodialysis catheter was advanced, ?? with the tip located at the cavoatrial junction. The wire was removed. ?? The catheter was tested, flushed, and sutured to the skin. A permanent ?? fluoroscopic image of the chest was saved to PACS. ? The patient was stable after the procedure and was transferred to the ?? medical floor. There were no immediate complications. ? FINDINGS: ?? 1. Patent right internal jugular vein. ?? 2. Placement of a non-tunneled, triple-lumen hemodialysis catheter as ?? above. ?? 3. Catheter flushes and aspirates very well with a 10 mL syringe. No ?? pneumothorax. ? IR/IR cvc insert non tunnel ?? IMPRESSION: ?? Placement of a non-tunneled hemodialysis catheter in the right internal ?? jugular vein. ? PLAN: ?? -The catheter may be used immediately. ? This procedure was performed by Greg Kumari, JEYSON, and directly ?? supervised by Dr. uDmont. ? Electronically signed by: ??Jose M Dumont MD ??03/26/2024 04:51 PM EST RP ? Dictated By: ?Greg Kumari ? Signed By: ?<Electronically signed by Greg Kumari in OV> ? 03/26/24 165 ?<Electronically signed by Jose M Dumont MD in OV> ? 03/26/24 1654 ? DD/ 1230 ? TD/TT: 03/22/24 1439 ? Investigation Lieutenant: ? Procedure Note Donotdawit, Image - 03/26/2024 [place] [address] Interventional Radiology Rpt Signed Patient: Lori LandMR#: [id number] : 1955cct:[id number] Age/Sex: 68 / FADM Date: 03/22/24 Loc: [facility] 484-[address]: Chaya Rodriguez MD Ordering Physician: Moses Reynoso MD Date of Service: 03/22/24 Procedure(s): IR cvc insert non tunnel Accession Number(s): [id number] cc: Moses Reynoso MD; Lucrecia Teixeira CLINICAL HISTORY: Patient requires dialysis. The patient presents to interventional radiology for placement of a non-tunneled central venous catheter for hemodialysis. PROCEDURES: 1. Real-time ultrasound-guided access into the right internal jugular vein after documentation of selected vessel patency, and permanent imaging storing in the patient record. 2. Placement of a 12.0 fr 20 cm non-tunneled, triple-lumen hemodialysis catheter. Clinician: Greg Kumari PA-C MEDICATIONS: -Lidocaine 1% 10 mL SQ. -For additional details, please see nursing flowsheet. COMPLICATIONS: None. ESTIMATED BLOOD LOSS: <5 ml SPECIMENS: None FLUOROSCOPY TIME: 0.6 min PROCEDURE NOTE: The procedure, risks, benefits, and alternatives were carefully explained to patient, and written informed consent was obtained. The patient was placed supine on the fluoroscopy table. A timeout was performed. The right neck and chest was prepped and draped in usual sterile fashion. Local anesthesia was administered to the access site with lidocaine. Under ultrasound guidance, the right internal jugular vein was accessed with a 4 Fr micropuncture set. A 0.035 in wire was advanced into the IVC. The tract in the vein was serially dilated. Over the wire, a 12.0 fr 20 cm non-tunneled, triple-lumen hemodialysis catheter was advanced, with the tip located at the cavoatrial junction. The wire was removed. The catheter was tested, flushed, and sutured to the skin. A permanent fluoroscopic image of the chest was saved to PACS. The patient was stable after the procedure and was transferred to the medical floor. There were no immediate complications. FINDINGS: 1. Patent right internal jugular vein. 2. Placement of a non-tunneled, triple-lumen hemodialysis catheter as above. 3. Catheter flushes and aspirates very well with a 10 mL syringe. No pneumothorax. IR/IR cvc insert non tunnel IMPRESSION: Placement of a non-tunneled hemodialysis catheter in the right internal jugular vein. PLAN: -The catheter may be used immediately. This procedure was performed by Greg Kumari PA-C, and directly supervised by Dr. Dumont. Electronically signed by: Jose M Dumont MD 03/26/2024 04:51 PM [facility] Dictated By: Greg Kumari Signed By: <Electronically signed by Greg Kumari in OV> 03/26/24 1651 <Electronically signed by Jose M Dumont MD in OV> 03/26/24 1654 DD/ 1230 TD/TT: 03/22/24 1439 Investigation Lieutenant: [facility] External Provider IMG IR PROCEDURES Final Result * POCT HGB A1C (12/13/2023 2:05 PM EDT) Hemoglobin A1C 5.9 4.0 - 6.0 % QC Media Lot # [id number] Lot# Expiration Date [id number] Blood 12/13/2023 2:05 PM EDT Lucrecia Teixeira MD POINT OF CARE TEST ENTER/EDIT ORDERABLES Final Result * BI Mammogram Diagnostic Tomosynthesis Right (12/16/2022 3:35 PM EDT) Anatomical Region Laterality Modality Breast Right Mammography 12/16/2022 3:35 PM EDT Narrative 12/16/2022 4:44 PM EDT ? [facility] ? [address] ?[place] [address] ? Mammography Report ? Signed ? Patient: Lori Land E ?MR#: [id number] ?? [id number] ? : 1955 ?Acct:[id number] ? Age/Sex: 67 / F ?ADM Date: 12/16/22 ? Loc: HO.MAMMO ? Attending Dr: Lucrecia Teixeira MD ? Ordering Physician: Lucrecia Teixeira ?Results: 2Benign F ?? indings ? Date of Service: 12/16/22 ?Follow Up: 1 Year From Orig ?? inal Mammogram ? Procedure(s): MM tomosynthesis diagnostic RT ?? Accession Number(s): [id number] ? cc: Lucrecia Teixeira ? EXAMINATION: ?? MM DIAGNOSTIC DIGITAL BREAST TOMOSYNTHESIS, RIGHT ?? US BREAST LIMITED, RIGHT ? MAMMOGRAPHY: ?? CLINICAL INFORMATION: ? 4 month follow-up right breast suspect benign posttraumatic changes ?? posterior upper outer aspect. Patient originally presented with ?? palpable fullness and pain in the upper outer right breast for ?? approximately 3 weeks. A recent fall was noted around the same time. ?? Prior ultrasound was in keeping with posttraumatic fat changes in this ?? region. ? COMPARISON: ?? Mammography: 09/08/2022 mammography and ultrasound right breast ? TECHNIQUE: ?? Digital right breast tomosynthesis is performed in both the ?? craniocaudal and mediolateral oblique views along with computer-aided ?? detection (CAD). Synthesized 2D images are generated from the ?? tomosynthesis. In addition, a second full-field 3-D right MLO view was ?? obtained. ? FINDINGS: ?? There are scattered areas of fibroglandular density (ACR BI-RADS breast ?? composition Category b). ? Previously seen density in the upper outer quadrant of the right breast ?? has nearly completely resolved. There is a stable group of benign ?? calcifications in the upper outer right breast which is unchanged from ?? exams dating back to 2019 and benign. There is no change in the overall ?? parenchymal pattern. No developing mass, or area of architectural ?? distortion. ??Findings are in keeping with resolving posttraumatic ?? changes. ? ULTRASOUND: ?? CLINICAL INFORMATION: ?? As above. ? COMPARISON: ?? 08/09/2022. ? TECHNIQUE: ?? Targeted sonographic evaluation right breast upper outer quadrant was ?? performed using a high frequency linear transducer. ??Selected archived ?? documentation. ? FINDINGS: ? RIGHT BREAST: Resolving posttraumatic hyperechoic fat changes are ?? noted. No fluid collection. No suspicious mass, cystic abnormality, or ?? abnormal shadowing identified. No edema within the soft tissue planes. ?? Findings are consistent with resolving posttraumatic fat changes. ? MM/MM tomosynthesis diagnostic RT ?? IMPRESSION: ?? There are no findings suspicious for malignancy in the right breast. ? Mammographic and ultrasound findings both support resolving ?? posttraumatic fat changes to the upper outer right breast. These are ?? benign. ? Recommend the patient assumed routine annual mammographic screening. ? OVERALL ASSESSMENT: ?? Mammography: BI-RADS 2 - Benign Findings ?? Ultrasound: BI-RADS 2 - Benign Findings ? RECOMMENDATION: ?? 1 year F/U ? Results were provided to the patient at time of visit by the ?? technologist. ? This patient's information was entered into a reminder system with a ?? target due date for their next mammogram. ? Dictated By: ?Rupesh Araya MD ? Signed By: ?<Electronically signed by Rupesh Araya MD in OV> ?12/16/22 1640 ? DD/ 1535 ? TD/TT: ? Investigation Lieutenant: ? Procedure Note Donotjackinterpreter, Image - 12/20/2022 Юлия [facility] [address] [place] [address] Mammography Report Signed Patient: Lori Land EMR#: [id number] : 1955cct:[id number] Age/Sex: 67 / FADM Date: 12/16/22 Loc: HO.MAMMO Attending Dr: Lucrecia Teixeira MD Ordering Physician: Ritchie Teixeiraults: 2Benign F indjayla Date of Service: 12/16/22Follow Up: 1 Year From Orig inal Mammogram Procedure(s): MM tomosynthesis diagnostic RT Accession Number(s): [id number] cc: Lucrecia Teixeira EXAMINATION: MM DIAGNOSTIC DIGITAL BREAST TOMOSYNTHESIS, RIGHT US BREAST LIMITED, RIGHT MAMMOGRAPHY: CLINICAL INFORMATION: 4 month follow-up right breast suspect benign posttraumatic changes posterior upper outer aspect. Patient originally presented with palpable fullness and pain in the upper outer right breast for approximately 3 weeks. A recent fall was noted around the same time. Prior ultrasound was in keeping with posttraumatic fat changes in this region. COMPARISON: Mammography: 09/08/2022 mammography and ultrasound right breast TECHNIQUE: Digital right breast tomosynthesis is performed in both the craniocaudal and mediolateral oblique views along with computer-aided detection (CAD). Synthesized 2D images are generated from the tomosynthesis. In addition, a second full-field 3-D right MLO view was obtained. FINDINGS: There are scattered areas of fibroglandular density (ACR BI-RADS breast composition Category b). Previously seen density in the upper outer quadrant of the right breast has nearly completely resolved. There is a stable group of benign calcifications in the upper outer right breast which is unchanged from exams dating back to 2019 and benign. There is no change in the overall parenchymal pattern. No developing mass, or area of architectural distortion. Findings are in keeping with resolving posttraumatic changes. ULTRASOUND: CLINICAL INFORMATION: As above. COMPARISON: 08/09/2022. TECHNIQUE: Targeted sonographic evaluation right breast upper outer quadrant was performed using a high frequency linear transducer. Selected archived documentation. FINDINGS: RIGHT BREAST: Resolving posttraumatic hyperechoic fat changes are noted. No fluid collection. No suspicious mass, cystic abnormality, or abnormal shadowing identified. No edema within the soft tissue planes. Findings are consistent with resolving posttraumatic fat changes. MM/MM tomosynthesis diagnostic RT IMPRESSION: There are no findings suspicious for malignancy in the right breast. Mammographic and ultrasound findings both support resolving posttraumatic fat changes to the upper outer right breast. These are benign. Recommend the patient assumed routine annual mammographic screening. OVERALL ASSESSMENT: Mammography: BI-RADS 2 - Benign Findings Ultrasound: BI-RADS 2 - Benign Findings RECOMMENDATION: 1 year F/U Results were provided to the patient at time of visit by the technologist. This patient's information was entered into a reminder system with a target due date for their next mammogram. Dictated By: Rupesh Araya MD Signed By: <Electronically signed by Rupesh Araya MD in OV> 12/16/22 1640 DD/ 1535 TD/TT: Investigation Lieutenant: us Lucrecia Teixeira MD IMG BI PROCEDURES Edited Resul t - Final * (ABNORMAL) LIPID PANEL, STANDARD (09/28/2021 9:30 AM EDT) Chol/HDLC Ratio 5.7(H) <5.0 (calc) [facility] Cholesterol, Total 198 <200 mg/dL [facility] HDL Cholesterol 35(L) > OR = 50 mg/dL [facility] LDL Cholesterol SEE COMMENT mg/dL (calc) [facility] Comment: ?? LDL cholesterol not calculated. Triglyceride levels greater than 400 mg/dL invalidate calculated LDL results. ?? Reference range: <100 ?? Desirable range <100 mg/dL for primary prevention; ?? <70 mg/dL for patients with CHD or diabetic patients ?? with > or = 2 CHD risk factors. ?? LDL-C is now calculated using the Александр ?? calculation, which is a validated novel method providing ?? better accuracy than the Friedewald equation in the ?? estimation of LDL-C. ?? Ladarius FIELDS et al. SHYANNE. 2013;310(19): 1748-1871 ?? (http://[employer].My Perfect Gig/faq/PVS519) Non-HDL Cholesterol 163(H) <130 mg/dL (calc) [facility] Comment: For patients with diabetes plus 1 major ASCVD risk ?? factor, treating to a non-HDL-C goal of <100 mg/dL ?? (LDL-C of <70 mg/dL) is considered a therapeutic ?? option. Triglycerides 429(H) <150 mg/dL [facility] Comment: ?? If a non-fasting specimen was collected, consider repeat triglyceride testing on a fasting specimen if clinically indicated. ?? Emilia et al. J. of Clin. Lipidol. 2015;9:129-169. ?? 09/28/2021 9:30 AM EDT Jennifer Ibrahim MD LAB BLOOD ORDERABLES Final Result [facility] [address] from Last 3 Months or Most Recently Relevant to Health Maintenance Insurance [facility] STANDARD MEDICARE Care Teams Digital Research Analyst Relationship Specialty Start Date End Date Lucrecia Teixeira MD [address] [place] [address] PCP - General Family Medicine [facility]
--- OUTSIDE RECORDS SUMMARY | 2024-05-23 12:40 | XMS_ITS | Encounter Summary ---
Author Organization [employer] Address [address] [facility] 7 [place] [address] Care Team Providers Care Geospatial Engineer Name Role Phone Lucrecia Teixeira MD Primary Care Provider [phone] Reason for Visit * Reason Comments Med Refill Encounter Details Date Type Department Care Team ([facility] Contact Info) Description 02/15/2024 Refill [facility] [address] [place] [address] Lucrecia Teixeira MD [address] [place] [address] Social History Tobacco Use Types Packs/Day Years [...] Description 07/15/2024 2:15 PM EDT Office Visit [facility] [address] [place] [address] Lucrecia Teixeira MD [address] [place] [address] documented as of this encounter Visit Diagnoses Not on filedocumented in this encounter Additional Health Concerns Assessment Noted Time PHQ-9 Depression Total Score: 0 01/21/20 23 3:26 PM EST documented as of this encounter Care Teams Geospatial Engineer Relationship Specialty Start Date End Date Lucrecia Teixeira MD [address] [place] [id number] PCP - General Family Medicine 07/12/22 Юлия A 04/06/24 documented as of this encounter
--- OUTSIDE RECORDS SUMMARY | 2024-05-23 12:40 | XMS_ITS | Encounter Summary ---
Author Organization [employer] Address [address] [place] [address] 7 [place] [address] Care Team Providers Care Electric Meter Installer Helper Name Role Phone Jennifer Rico MD Primary Care Provide r Lucrecia Teixeira MD Primary Care Provider [phone] Reason for Visit * Reason Onset Date Comments Durable Medical Equipment 07/01/2022 Encounter Details Date Type Department Care Team ([facility] st Contact Info) Description 07/01/2022 Telephone [facility] MEDICINE [address] [place], [place] [phone] Jennifer Rico MD [address] [place], [place] [phone] Durable Medical Equipment Social History Tobacco Use Types Packs/Day Years Used Date Smoking Tobacco: Never Smokeless Tobacco: Never Alcohol Use Standard Drinks/Week Comments Never 0 (1 standard drink = 0.6 oz pur e alcohol) PHQ-2 Answer Date Recorded Patient Health Questionnaire-2 Score 1 04/11/2022 Depression Answer Date Recorded Patient Health Questionnaire-2 Score 1 04/11/2022 Comments Unknown Sex and Gender Information Value Date Recorded Sex Assigned at Female 12/13/2021 10:36 AM EDT Legal Sex Female 10:36 AM EDT Gender Identity Female 12/13/2021 10:36 AM EDT Sexual Orientation Choose not to disclose 2021 10:36 AM EDT COVID-19 Exposure Response Date Recorded In the last 10 days, have yo u been in contact with someone who was confirmed or suspected to have Coronavirus/COVID-19? No / Unsure 06/06/2022 2:39 PM EDT documented as of this encounter Miscellaneous Notes * Telephone Encounter - Mary Iglesias - 07/04/2022 2:43 PM EDT Script for compression stockings generated for signature * Telephone Encounter - Jodi Hernandez - 07/01/2022 8:04 AM EDT Tc from Sam at [facility] requesting a new script for compression socks , due to patients lower leg edema. documented in this encounter Plan of Treatment Upcoming Encounters Date Type Department Care Team (Late st Contact Info) Description 07/15/2024 2:15 PM EDT Office Visit [facility] [address] [place] [address] Lucrecia Teixeira MD [address] [place] [address] documented as of this encounter Visit Diagnoses Not on filedocumented in this encounter Care Teams Electric Meter Installer Helper Relationship Specialty Start Date End Date Jennifer Rico MD [address] [place] [id number] PCP - General Family Medicine 12/05/18 07/11/22 Lucrecia Teixeira MD [address] [place] [address] PCP - General Family Medicine 07/12/22 [facility] 04/06/24 documented as of this encounter
--- OUTSIDE RECORDS SUMMARY | 2024-05-23 12:41 | XMS_ITS | Encounter Summary ---
Author Organization [employer] Address [address] [place] [address] [place], [place] [address] Care Team Providers Care Beef Grader Name Role Phone Lucrecia Teixeira MD Primary Care Provider Reason for Visit * Reason Onset Date Comments Nurse Triage 10/21/2022 Encounter Details Date Type Department Care Team ([facility] st Contact Info) Description 10/21/2022 Telephone [facility] MEDICINE [address] [place] [address] Lucrecia Teixeira MD [address] [place], [place] [phone] Nurse Triage Social History Tobacco Use Types Packs/Day Years [...] encounter Miscellaneous Notes * Telephone Encounter - Sosa Barnett RN - 10/21/2022 2:37 PM EDT Triage call to Pt with [facility] [employer] Special[facility] [place] [id number] Pt daughter answered phone and Pt is not with daughter. Obtained home phone number of [phone] called [phone] answer. Call to Jennifer of [employer], Jennifer reports that Pt BP today was 173/96 , Pt was asymptomatic and was working with OT at the time. Pt has had med changed from lozartan 100mg to amlodipine 10mg due to kidney function being poor. Pt family is giving the lozartan any way if the BP is high even though it was discontinued 2 weeks ago. Family has been educated as to why they shouldn't do that but, to no avail. Advised will send to PCP and nursing team for follow up. Protocol Used: Medication Question Call (Adult) Protocol-Based Disposition: Callback or Video Visit by PCP Today Video visit not offered Positive Triage Question: * Caller wants to use a complementary or alternative medicine * All higher-acuity triage questions were negative * Telephone Encounter - Jodi Hernandez - 10/21/2022 2:00 PM EDT Tc from Jennifer at [facility] Symptom: High Blood Pressure - Caller Reports (173/96 heart rate 83 Outcome: Schedule an urgent appointment (within 1 hour) or talk to a nurse or provider soon Reason: Getting worse The caller accepted this outcome documented in this encounter Plan of Treatment Upcoming Encounters Date Type Department Care Team (Late st Contact Info) Description 07/15/2024 2:15 PM EDT Office Visit [facility] [address] [place] [address] Lucrecia Teixeira MD [address] [place] [address] documented as of this encounter Visit Diagnoses Not on filedocumented in this encounter Care Teams Beef Grader Relationship Specialty Start Date End Date Lucrecia Teixeira MD [address] [place] [address] PCP - General Family Medicine [facility] documented as of this encounter
--- OUTSIDE RECORDS SUMMARY | 2024-05-23 12:41 | XMS_ITS | Encounter Summary ---
Author Organization [employer] Address [address] [facility] 7[address] [place] [address] Care Team Providers Care Animal Trainer Name Role Phone Lucrecia Teixeira MD Primary Care Provider [phone] Encounter Details Date Type Department Care Team ([facility] Contact Info) Description 05/23/2024 Orders Only GENERIC EXTERNAL DATA DEPARTMENT Provider, Generic External Data Social History Tobacco Use Types Packs/Day Years [...] Upcoming Encounters Date Type Department Care Team ([facility] st Contact Info) Description 07/15/2024 2:15 PM EDT Office Visit [facility] [address] [place] [phone] Lucrecia Teixeira MD [address] [place], [place] [phone] documented as of this encounter Procedures Procedure Name Priority Date/Time Associated Diagnosis [...] AUTO DIFFERENTIAL Routine 05/23/2024 9:39 AM EDT documented in this encounter Results * XR Tibia Fibula 2 Views Left (05/23/2024 10:45 AM EDT) Anatomical Region Laterality Modality Lower Extremities, Lower Leg Left Rad iographic Imaging 05/23/2024 10:4 5 AM EDT Narrative 05/23/2024 11:22 AM EDT ? [facility] ?[address] ?[place] [address] ?XRay Report ? Signed ? Patient: Lori Land ?MR#: [id number] ?? [id number] ? : 1955 ?Acct:[id number] ? Age/Sex: 68 / F ?ADM Date: 05/23/24 ? Loc: HO.ED ? Attending Dr: ? Ordering Physician: Yancy Jacobson ?? Date of Service: 05/23/24 ?? Procedure(s): XR tibia fibula LT 2V ?? Accession Number(s): [id number] ? cc: Yancy Jacobson; Lucrecia Teixeira ? [...] DD/ 1045 ? TD/TT: 05/23/24 1105 ? Diagnostic Assistant: ? Procedure Note Donotuseinterpreter, Image - 05/23/[address] [address] XRay Report Signed Patient: Lori LandMR#: [id number] : 7Acct:[id number] Age/Sex: 68 / FADM Date: 05/23/24 Loc: HO.ED Attending Dr: Ordering Physician: Yancy Jacobson Date of Service: 05/23/24 Procedure(s): XR tibia fibula LT 2V Accession Number(s): [id number] cc: Yancy Jacobson; Lucrecia Teixeira EXAMINATION: XR [...] 05/23/24 1119 DD/ 1045 TD/TT: 05/23/24 1105 Diagnostic Assistant: [facility] External Provider IMG XR PROCEDURES Final Result * (ABNORMAL) Sed Rate by Modified [place] (05/23/2024 10:11 AM EDT) Erythrocyte Sedimentation Rate >140(H) 0 - 20 MM/HR [facility] Comment:Patients with polycy themia and many hemoglobin abnormalitiesmay have depressed sed rates whereas patients with anemiamay have elevated sed rates. 05/23/2024 10:1 1 AM EDT 05/23/2024 10:18 AM EDT us Generic External Data Provider LAB BLOOD ORDERAB LES Final Result Performing Organization Address [facility] Co de Phone Number [facility] [address] [place] [phone] * (ABNORMAL) C-reactive Protein (05/23/2024 10:11 AM EDT) C Reactive Protein 37.41(H) < or = 0.50 mg/dL [facility] 05/23/2024 10:1 1 AM EDT 05/23/2024 10:18 AM EDT us Generic External Data Provider LAB BLOOD ORDERAB LES Final Result Performing Organization Address [facility] de Phone Number [facility] [address] [place] [phone] * Lactic Acid (05/23/2024 10:11 AM EDT) Lactic Acid 0.8 0.5 - 2.0 mmol/L [facility] 05/23/2024 10:1 1 AM EDT 05/23/2024 10:16 AM EDT us Generic External Data Provider LAB BLOOD ORDERAB LES Final Result Performing Organization Address [facility] de Phone Number [facility] [address] [place] [phone] * Type and screen (05/23/2024 10:07 AM EDT) Blood Type OP [facility] Antibody Screen NEGATIVE [facility] 05/23/2024 10:0 7 AM EDT 05/23/2024 10:17 AM EDT us Generic External Data Provider LAB BLOOD BANK TE ST ORDERABLES Final Result [facility] [address] [place] [address] [phone] * XR Hips Bilateral with Pelvis 1 view (05/23/2024 10:00 AM EDT) Anatomical Region Laterality Modality Lower Extremities, Hip Bilateral Radiograp hic Imaging 05/23/2024 10:0 0 AM EDT Narrative 05/23/2024 11:24 AM EDT ? [facility] ?[address] ?[place] [address] ?XRay Report ? Signed ? Patient: Lori Land ?MR#: [id number] ?? [id number] ? : 1955 ?Acct:[id number] ? Age/Sex: 68 / F ?ADM Date: 05/23/24 ? Loc: HO.ED ? Attending Dr: ? Ordering Physician: Yancy Jacobson ?? Date of Service: 05/23/24 ?? Procedure(s): XR hip BI w PEL1V ?? Accession Number(s): [id number] ? cc: Yancy Jacobson; Lucrecia Teixeira ? [...] by Rupesh Araya MD in OV> ?05/23/24 1121 ? DD/ 1000 ? TD/TT: 05/23/24 1105 ? Diagnostic Assistant: ? Procedure Note Donotuseinterpreter, Image - 05/23/[address] [address] XRay Report Signed Patient: Lori LandMR#: [id number] : 1955cct:[id number] Age/Sex: 68 / FADM Date: 05/23/24 Loc: HO.ED Attending Dr: Ordering Physician: Yancy Jacobson Date of Service: 05/23/24 Procedure(s): XR hip BI w PEL1V Accession Number(s): [id number] cc: Yancy Jacobson; Lucrecia Teixeira EXAMINATION: XR [...] Rupesh Araya MD 05/23/2024 11:21 AM EDT Dictated By: Rupesh Araya MD Signed By: <Electronically signed by Rupesh Araya MD in OV> 05/23/24 1121 DD/ 1000 TD/TT: 05/23/24 1105 Diagnostic Assistant: us [facility] External Provider IMG XR PROCEDURES Final Result * Hold Lavender - Possible Hematology (05/23/2024 9:42 AM EDT) Hold Lavender - Possible Hematololgy SEE NOTE [facility] Comment:Specimen will be hel d untested for 8 hours. Call Hematologyif testing is desired. 05/23/2024 9:42 AM EDT 05/23/2024 10:18 AM EDT Generic External Data Provider HISTORICAL/NON OR DERABLE LABS Final Result Performing Organization Address [facility]/ZIP Co de Phone Number [facility] [address] [place] [phone] [phone] * HOLD LT BLUE - POSSIBLE COAG (05/23/2024 9:39 AM EDT) Hold Lt Blue - Possible Coag SEE NOTE [facility] Comment:Specimen will be hel d untested for 4 hours. Call Hematologyif testing is desired. 05/23/2024 9:39 AM EDT 05/23/2024 10:21 AM EDT Generic External Data Provider LAB BLOOD ORDERAB LES Final Result Performing Organization Address [facility]/ZIP Co de Phone Number [facility] [address] [place] [phone] [phone] * (ABNORMAL) CBC auto differential (05/23/2024 9:39 AM EDT) White Blood Count 13.9(H) 4.8 - 10.8 X10*3/uL [facility] Red Blood Count 2.48(L) 4.20 - 5.50 X10*6/uL [facility] Hemoglobin 7.4(L) 12.0 - 16.0 g/dl [facility] Hematocrit 21.6(L) 37.0 - 47.0 % [facility] Mean Corpuscular Volume 87.1 80.0 - 98.0 fL [facility] Mean Corpuscular Hemoglobin 29.8 27.0 - 33.0 pg [facility] Mean Corpuscular HGB Conc 34.3 31.0 - 35.0 g/dl [facility] Red Cell Distribution Width 19.7(H) 11.0 - 16.0 % [facility] Platelet Count TNP 160 - 400 X10*3/uL [facility] Comment:Platelet clumps note d. Platelet count will not be accurate. Mean Platelet Volume TNP 9.4 - 12.3 fL [facility] Neutrophils Percent Auto 75.3(H) 45 - 73 % [facility] Imm Gran Pct Auto 3.2(H) 0.0 - 0.4 % [facility] Lymphocytes Percent Auto 10.8(L) 20 - 40 % [facility] Monocytes Percent Auto 9.0 2 - 11 % [facility] Eosinophils Percent Auto 1.2 0 - 4 % [facility] Basophils Percent Auto 0.5 0 - 2 % [facility] NRBC Pct Auto 0.0 0.0 - 0.2 /100WBC [facility] Neutrophils Absolute Auto 10.5(H) 2.0 - 8.3 x10*3/uL [facility] Imm Gran Abs Auto 0.45(H) 0.00 - 0.03 X10*3/uL [facility] Lymphocytes Absolute Auto 1.5 1.2 - 4.9 X10*3/uL [facility] Monocytes Absolute Auto 1.3(H) 0.1 - 1.2 X10*3/uL [facility] Eosinophils Absolute Auto 0.2 0.0 - 0.4 X10*3/uL [facility] Basophils Absolute Auto 0.1 0.0 - 0.2 X10*3/uL [facility] NRBC Abs Auto 0.000 0.0 - 0.012 X10*3/uL [facility] 05/23/2024 9:39 AM EDT 05/23/2024 9:46 AM EDT us Generic External Data Provider LAB BLOOD ORDERAB LES Edited Result - Final [facility] [address] [place] [phone] documented in this encounter Visit Diagnoses Not on filedocumented in this encounter Additional Health Concerns Assessment Noted Time PHQ-9 Depression Total Score: 0 01/21/20 23 3:26 PM EST documented as of this encounter Care Teams Animal Trainer Relationship Specialty Start Date End Date Lucrecia Teixeira MD [address] [place] [phone] PCP - General Family Medicine 07/12/22 [facility] 04/06/24 documented as of this encounter
--- OUTSIDE RECORDS SUMMARY | 2024-05-23 12:41 | XMS_ITS | Encounter Summary ---
Author Organization [email or web address] Address [address] [facility] 7[address] [place] [address] Care Team Providers Care Rn Provider Relations Name Role Phone Jennifer Rico MD Primary Care Provide r Lucrecia Teixeira MD Primary Care Provider [phone] Encounter Details Date Type Department Care Team ([facility] st Contact Info) Description 04/13/2022 Orders Only [facility] [address] [place] [address] Lucrecia Teixeira MD [address] [place] [address] Type 2 diabetes mellitus with peripheral angiopathy (CMS/HCC) (Primary Dx) Social History Tobacco Use Types Packs/Day Years [...] suspected to have Coronavirus/COVID-19? No / Unsure 04/11/2022 11:02 AM EST documented as of this encounter Plan of Treatment Upcoming Encounters Date Type Department Care Team (Late st Contact Info) Description 07/15/2024 2:15 PM EDT Office Visit [facility] [address] [place] [phone] Lucrecia Teixeira MD [address] [place] [phone] documented as of this encounter Visit Diagnoses Diagnosis Type 2 diabetes mellitus with peripheral angiopathy (CMS/HCC)- Primary documented in this encounter Care Teams Rn Provider Relations Relationship Specialty Start Date End Date Jennifer Rico MD [address] [place] [address] [phone] PCP - General Family Medicine 12/05/18 07/11/22 Lucrecia Teixeira MD [address] [place] [address] [phone] PCP - General Family Medicine 07/12/22 [facility] 04/06/24 documented as of this encounter
--- OUTSIDE RECORDS SUMMARY | 2024-05-23 12:41 | XMS_ITS | Clinical Summary ---
Author Organization [facility] Address [address] [place] [address] [place] [address] Phone Care Team Providers Care Ict Project Manager Name Role Phone Jennifer Rico MD Primary Care Provide r Allergies Active Allergy Reactions Criticality Noted Date Comments Egg-Derived Products Vomiting 03/24/2022 Levetiracetam 12/11/2023 Medications Acetaminophen Extra Strength 500 MG tablet TAKE 1 TABLET BY MOUTH EVERY 6 HOURS NEEDED FOR FEVER OR FOR PAIN 3 Active albuterol (2.5 MG/3ML) 0.083% nebulizer solution INHALE 1 AMPULE USING A NEBULIZER THREE TIMES DAILY NEEDED FOR SHORTNESS OF BREATH / FOR ASTHMA 3 Active amLODIPine (NORVASC) 10 MG tablet Take 10 mg by mouth 1 (one) time each day 3 Active aspirin (ST TABITHA) 81 MG EC tablet Take 1 tablet by mouth 1 (one) time each day Active atorvastatin (LIPITOR) 80 MG tablet Take 1 tablet by mouth 1 (one) time each day 0 Active Breo Ellipta 100-25 MCG/ACT aerosol powder INHALE 1 PUFF EVERY DAY AT THE SAME TIME 3 Active Insulin Lispro, 1 Unit Dial, 100 UNIT/ML solution pen-injector Inject under the skin 3 (three) times a day 0 Active Lacosamide 200 MG tablet Take 1 tablet by mouth 2 (two) times a day 0 Active omeprazole (PriLOSEC) [address] capsule TAKE 1 CAPSULE BY MOUTH EVERY DAY BEFORE A MEAL 3 Active oxybutynin XL (DITROPAN-XL) 10 MG 24 hr tablet Take 10 mg by mouth 1 (one) time each day 3 Active traZODone (DESYREL) 50 MG tablet Take 100 mg by mouth at bed time 2 Active sucralfate (CARAFATE) 1 g tablet Take 1 g by mouth in the morning and 1 g at noon and 1 g in the evening and 1 g before bedtime. Active Insulin Glargine, 2 Unit Dial, (Toujeo Max SoloStar) 300 UNIT/ML solution pen-injector Inject under the skin Active Diclofenac Sodium 1 % gel APPLY 2 GRAMS TOPICALLY TO FEET AT BEDTIME NEEDED 3 Active torsemide (DEMADEX) 100 MG tablet Take 100 mg by mouth 1 (one) time each day Active Sodium Zirconium Cyclosilicate (Lokelma) 10 g pack Take by mouth Monday and Fridays Active metOLazone 2.5 MG tablet Take 1 tablet (2.5 mg total) by mouth 1 (one) time each day 90 tablet 4 Active Additional Information Patient not taking.Reported on 04/29/2024 levETIRAcetam (KEPPRA) 500 MG tablet Take 500 mg by mouth 1 (one) time each day Active gabapentin (NEURONTIN) 100 MG capsule Take 100 mg by mouth in the morning and 100 mg in the evening. Active gabapentin (NEURONTIN) 300 MG capsule Take 300 mg by mouth every other day Active LORazepam (ATIVAN) 0.5 MG tablet Take 0.5 mg by mouth every 6 (six) hours if needed for anxiety Active phenytoin (DILANTIN) 100 MG ER capsule Take 100 mg by mouth in the morning and 100 mg at noon and 100 mg in the evening. Active sodium bicarbonate 650 MG tablet Take 650 mg by mouth in the morning and 650 mg in the evening. Active valproic acid (DEPAKENE) 250 MG capsule Take 1,000 mg by mouth in the morning and 1,000 mg in the evening. Active lidocaine (LIDODERM) 5 % patch Apply 1 patch topically 1 (one) time each day Remove & discard patch within 12 hours or as directed by MD. Active losartan (COZAAR) 100 MG tablet Take 100 mg by mouth 1 (one) time each day Active ferrous gluconate (FERGON) 324 (38 Fe) MG tablet Take 324 mg by mouth 1 (one) time each day with breakfast Active Active Problems Problem Noted Date Diagnosed Date Stage 5 chronic kidney disease 05/01/2023 Stage 5 chronic kidney disease 01/17/2023 Proteinuria 01/17/2023 Anemia in chronic kidney disease 01/17/2023 Chronic kidney disease, stage 4 (severe) 023 Type 2 diabetes mellitus wit h diabetic chronic kidney disease 12/20/2022 Renal osteodystrophy 12/20/2022 Primary coxarthrosis, bilateral 12/09/2022 12/20/2022 Overview (12/20/2022): Last Assessment & Plan: Pt has worsening gait difficulty after long hospitalization Will start home PT Pressure injury of sacral region of back stage I 12/09/2022 12/20/2022 Overview (12/20/2022): Last Assessment & Plan: Ulcer are healing nicely, no evidence of infection Cont use Clotrimazole cream and Zinc Oxide cream BID and reconsult PRN FU with PCP Cardiorenal syndrome 11/23/2022 12/20/2022 Overview (12/20/2022): Last Assessment & Plan: Received call from lab about critical value at 6pm; creatinine of 4.1; eGFR 11. - I had ordered Lasix 40mg BID, but given this tenuous situation, recommend ER evaluation for admission and IV diuresis with significant decline in renal function and signs/sx of fluid overload on exam - Spoke with patient via interpretation with [employer] interpreters at 7pm, she had just laid down in bed and her daughter did not feel it best to wake her. They will take her to the [facility] ER in the morning, and if she awakens with chest pain/palpitations call 9-1-1. Functional urinary incontinence 10/07/2022 12/20/2022 Overview (12/20/2022): Last Assessment & Plan: Poise pads Genuine stress incontinence 10/03/2022 11/0 08/2022 Body Mass Index 45.0-49.9, adult 10/03/2022 12/20/2022 Hypertensive retinopathy of right eye 07/22/2022 09/15/2022 Renal stone 06/08/2022 09/15/2022 Overview (09/15/2022): Last Assessment & Plan: Stent placed in the hospital Will have it removed tomorrow This should help with pain Chronic kidney disease stage 3 03/24/2022 [id number] renal failure 01/31/2022 0 09/15/2022 Overview (09/15/2022): Last Assessment & Plan: Follow with nephro for mgmt Edema of lower extremity 01/31/2022 023 Overview (09/15/2022): Last Assessment & Plan: Lasix 20mg tabs ordered, may need inpatient mgmt for IV diuresis I will followup via phone after labs (CMP, BNP result) to determine Lasix dosing Bedside commode to be checked on Essential hypertension 01/31/2022 Overview (09/15/2022): Last Assessment & Plan: Continue Amlodipine 10mg Continue Losartan 100mg daily Will need Lasix back due to LE swelling Resolved Problems Problem Noted Date Diagnosed Date Resolved Date Insomnia 06/08/2022 09/15/2022 09/15/2022 Overview (09/15/2022): Last Assessment & Plan: Start Trazodone 50-100mg nightly for sleep Sleep hygiene and tea as well Ventral hernia 06/08/2022 09/15/2022 09/15/2022 Overview (09/15/2022): Last Assessment & Plan: At sites of previous surgical scars, not in good shape for surgical repair currently Epigastric pain 04/13/2022 09/15/2022 09/15/2022 Overview (09/15/2022): Last Assessment & Plan: Stop Famotidine, increase Omeprazole to 20mg BID Diet and lifestyle modifications Abdominal US ordered to rule out gallbladder or liver pathology Hyperlipidemia 03/24/2022 09/15/2022 Type 2 diabetes mellitus wit h peripheral angiopathy 03/24/2022 09/15/2022 Seizure 03/24/2022 09/15/2022 Abnormal gait 01/31/2022 09/15/2022 09/15/2022 Anxiety 01/31/2022 09/15/2022 09/15/2022 Overview (09/15/2022): Last Assessment & Plan: Trial Trazodone 50mg nightly Chronic pain 01/31/2022 09/15/2022 09/15/2022 Neoplasm of meninges 01/31/2022 09/15/2022 023 Overview (09/15/2022): Last Assessment & Plan: Needs MRI for surveillance Then NSG followup Onycholysis 01/31/2022 09/15/2022 09/15/2022 Transient cerebral ischemia 01/31/2022 09/15/2022 09/15/2022 Uncomplicated moderate persistent asthma 01/31/2022 09/15/2022 09/15/2022 Overview (09/15/2022): Last Assessment & Plan: followup with pulm April 2022 Continue juhi Sood Encounters Date Type Department Care Team Description 04/29/2024 Treatment [facility] [address] [facility] [address] [place] [address] Hernan Meehan MD End stage renal disease; Dependence on renal dialysis 04/19/2024 Treatment [facility] [address] [facility] [address] [place] [address] Hernan Meehan MD End stage renal disease; Dependence on renal dialysis from Last 3 Months Immunizations Immunization Administration Dates Next Due Pneumococcal Polysaccharide 05/11/2019 Family History Medical History Relation Comments Diabetes Father Heart disease Father Hypertension Father Stroke Father Diabetes Mother Hypertension Sibling 1 Cancer Sibling 2 Diabetes Sibling 3 Relation Status Comments Father Mother Sibling 1 Sibling 2 Sibling 3 Social History Tobacco Use Types Packs/Day Years Used Date Smoking Tobacco: Never Smokeless Tobacco: Never Tobacco Cessation:Counseling Given: Not Answered Alcohol Use Standard Drinks/Week Comments No 0 (1 standard drink = 0.6 oz pur e alcohol) Comments Unknown Sex and Gender Information Value Date Recorded Sex Assigned at Not on file Legal Sex Female 4:55 PM EST Gender Identity Not on file Sexual Orientation Not on file Last Filed Vital Signs Vital Sign Reading Time Taken Comments Blood Pressure 120/60 04/29/2024 3:50 PM EDT Pulse 85 04/29/2024 3:50 PM EDT Temperature - - Respiratory Rate - - Oxygen Saturation 98% 12/11/2023 2:17 PM EDT Inhaled Oxygen Concentration - - Weight 105 kg (232 lb) 04/29/2024 3:50 PM EDT Height 157.5 cm (5' 2 ) 05/02/2022 3:12 PM EDT Body Mass Index 42.43 05/02/2022 3:12 PM EDT Plan of Treatment Health Maintenance Due Date Last Done Comments Breast Cancer Screening 1955 Hepatitis B Vaccine (1 of 5 - Risk Dialysis 4-dose series) 1976 Colorectal Cancer Screening: Annual FOBT 2005 Colorectal Cancer Screening: Colonoscopy 2005 Colorectal Cancer Screening: Sigmoidoscopy 2005 Diabetes: Ophthalmology Exam 03/15/2020 Diabetes: Pedal Pulse Checked 03/15/2020 Diabetes: Sensory Foot Exam 03/15/2020 Diabetes: Visual Foot Exam 03/15/2020 Pneumococcal Vaccine: 50+ Ye ars (2 of 2 - PCV) 05/10/2020 05/11/2019 Diabetes: Hemoglobin A1C 07/10/2024 025, 12/13/2023, 07/19/2023, Additional history exists Influenza Vaccine (Season Ended) 2024 Procedures Procedure Name Priority Date/Time Associated Diagnosis Comments HEMOGLOBIN AND HEMATOCRIT, BLOOD Routine 05/03/2024 3:00 AM EDT CBC AND DIFFERENTIAL Routine 04/19/2024 3:00 AM EST HEPATITIS B SURFACE ANTIGEN W/REFL CONFIRM Routine 04/19/2024 3:00 AM EST FERRITIN Routine 04/19/2024 3:00 AM EST TRANSFERRIN SATURATION Routine 3:00 AM EST PROTEIN, TOTAL, SERUM Routine 04/19/2024 3:00 AM EST MAGNESIUM Routine 04/19/2024 3:00 AM EST ELECTROLYTE PANEL Routine 04/19/2024 3:0 0 AM EST KT/V NATURAL LOG, URR (HC) Routine 04/19/2024 3:00 AM EST LIH (HC) Routine 04/19/2024 3:00 AM EST LACTATE DEHYDROGENASE Routine 04/19/2024 3:00 AM EST GLUCOSE, RANDOM Routine 04/19/2024 3:00 AM EST AST Routine 04/19/2024 3:00 AM EST CREATININE, SERUM Routine 04/19/2024 3:0 0 AM EST ALT Routine 04/19/2024 3:00 AM EST BILIRUBIN, TOTAL Routine 04/19/2024 3:00 AM EST ALKALINE PHOSPHATASE Routine 04/19/2024 3:00 AM EST CALCIUM PHOSPHORUS PRODUCT, ADJUSTED (HC) Routine 04/19/2024 3:00 AM EST ALUMINUM LEVEL Routine 04/12/2024 3:00 AM EST HEPATITIS B CORE AB TOTAL Routine 04/12/2024 3:00 AM EST HEPATITIS C ABS W/REFLEX RNA DETECTR Routine 04/12/2024 3:00 AM EST CONFIRMATION TEST HCV Routine 04/12/2024 3:00 AM EST HEPATITIS B SURFACE ANTIGEN W/REFL CONFIRM Routine 04/12/2024 3:00 AM EST PROTEIN, TOTAL, SERUM Routine 04/12/2024 3:00 AM EST URIC ACID Routine 04/12/2024 3:00 AM EST TRANSFERRIN SATURATION Routine 3:00 AM EST MAGNESIUM Routine 04/12/2024 3:00 AM EST KT/V NATURAL LOG, URR (HC) Routine 04/12/2024 3:00 AM EST LIPID PANEL Routine 04/12/2024 3:00 AM EST ELECTROLYTE PANEL Routine 04/12/2024 3:0 0 AM EST LIH (HC) Routine 04/12/2024 3:00 AM EST LACTATE DEHYDROGENASE Routine 04/12/2024 3:00 AM EST CREATININE, SERUM Routine 04/12/2024 3:0 0 AM EST GLUCOSE, RANDOM Routine 04/12/2024 3:00 AM EST AST Routine 04/12/2024 3:00 AM EST ALT Routine 04/12/2024 3:00 AM EST BILIRUBIN, TOTAL Routine 04/12/2024 3:00 AM EST CALCIUM PHOSPHORUS PRODUCT, ADJUSTED (HC) Routine 04/12/2024 3:00 AM EST ALKALINE PHOSPHATASE Routine 04/12/2024 3:00 AM EST HEPATITIS B SURFACE ANTIBODY QUANT Routine 04/12/2024 3:00 AM EST VITAMIN D 25 HYDROXY Routine 04/12/2024 3:00 AM EST FERRITIN Routine 04/12/2024 3:00 AM EST PTH, INTACT Routine 04/12/2024 3:00 AM EST HEMOGLOBIN A1C Routine 04/12/2024 3:00 AM EST CBC AND DIFFERENTIAL Routine 04/12/2024 3:00 AM EST HEPATITIS B PROFILE Routine 03/22/2024 3 :08 PM EST from Last 3 Months Results * (ABNORMAL) Hemoglobin and hematocrit (05/03/2024 3:00 AM EDT) Hgb 5.8(LL) 11.2 - 15.7 g/dL [facility] Comment: ALERT: Result verified by repeat analysis with no evidence of clotting detected. Consider other preanalytical factors such as sample dilution/contamination as a possible cause. Clinical correlation with redraw recommended if not consistent with patient history. Hematocrit 18.5(L) 34.1 - 44.9 % [facility] Hemoglobin x 3 17.4(L) 33.6 - 47.1 g/dL [facility] 05/03/2024 3:00 AM EDT 05/04/2024 1:12 PM EDT us Hernan Meehan MD LAB BLOOD ORDERABLES Final Re sult Performing Organization Address [facility] Co de Phone Number [facility] [address] [place] [address] * LIH (04/19/2024 3:00 AM EST) Only the most recent of2 resultswithin the time period is included. Lipemia Normal Normal [facility] Icterus Normal Normal [facility] Hemolysis Normal Normal [facility] 04/19/2024 3:00 AM EST 04/20/2024 12:56 PM EST Hernan Meehan MD LAB [id number] SOLICITED RESULTS Final Result Performing Organization Address [facility] de Phone Number [facility] [address] [place] [address] * (ABNORMAL) Kt/V Natural Log, URR (04/19/2024 3:00 AM EST) Only the most recent of2 resultswithin the time period is included. BUN 74(H) 7 - 25 mg/dL [facility] Treatment Time 240 min [facility] Pre-Weight, lb 97.8 kg [facility] Post-Weight, lb 96.7 kg [facility] Ultrafiltration Rate 3 <=13 mL/kg/hr [facility] Comment: Recommend achieving Ultrafiltration Rate (UFR) <=10 mL/kg/hr References: Rodríguez ROSAS et al. Kidney Int. 2010; 79(2):250-257 BUN Post Dialysis 21 7 - 25 mg/dL [facility] UREA REDUCTION RATIO (%) 72 >=65 % [facility] Kt/V Natural Log 1.41 >=1.2 [facility] 04/19/2024 3:00 AM EST 04/20/2024 12:56 PM EST Hernan Meehan MD LAB [id number] SOLICITED RESULTS Final Result Performing Organization Address [facility] Co de Phone Number [facility] [address] [place] [address] * (ABNORMAL) Calcium Phosphorus Product, Adjusted (04/19/2024 3:00 AM EST) Only the most recent of2 resultswithin the time period is included. Pathologist [facility] Albumin 3.2(L) 3.6 - 5.4 g/dL [facility] Calcium 7.5(L) 8.6 - 10.3 mg/dL [facility] Phosphorus, Serum 6.8(H) 2.5 - 5.0 mg/dL [facility] Ca*PO4 51.0 <55.0 mg2/dL2 [facility] Calcium, Adjusted Total 8.1(L) 8.6 - 10.3 mg/dL [facility] CA*PO4 CORRCTD 55.1(A) <55.0 mg2/dL2 [facility] 04/19/2024 3:00 AM EST 04/20/2024 12:56 PM EST Hernan Meehan MD LAB [id number] SOLICITED RESULTS Final Result Performing Organization Address [facility]/ZIP Co de Phone Number [facility] [address] [place] [address] * Hepatitis B Surface Ag w/Reflex Confirmation (04/19/2024 3:00 AM EST) Only the most recent of2 resultswithin the time period is included. [facility] Hep B Surface Antigen Negative Negative [facility] 04/19/2024 3:00 AM EST 04/20/2024 12:56 PM EST Hernan Meehan MD LAB BLOOD ORDERABLES Final Re sult [facility] [address] [place] [address] * (ABNORMAL) TSAT (04/19/2024 3:00 AM EST) Only the most recent of2 resultswithin the time period is included. Pathologist [facility] Iron 53 50 - 170 ug/dL [facility] Transferrin 97(L) 250 - 380 mg/dL [facility] TIBC 136(L) 211 - 406 ug/dL [facility] Iron Saturation (TSat) 39 22 - 52 % [facility] 04/19/2024 3:00 AM EST 04/20/2024 12:56 PM EST Hernan Meehan MD LAB BLOOD ORDERABLES Final Re sult [facility] [address] [place] [address] * (ABNORMAL) CBC and Differential (04/19/2024 3:00 AM EST) Only the most recent of2 resultswithin the time period is included. DIFFERENTIAL MANUAL, 2 Not Indicated [facility] White Blood Cells 13.1(H) 4.0 - 10.0 K/uL [facility] RBC 2.59(L) 3.93 - 5.22 M/uL [facility] Hgb 7.9(L) 11.2 - 15.7 g/dL [facility] Hemoglobin x 3 23.7(L) 33.6 - 47.1 g/dL [facility] Hematocrit 25.0(L) 34.1 - 44.9 % [facility] MCV 96.5(H) 79.4 - 94.8 fL [facility] MCH 30.5 25.6 - 32.2 pg [facility] MCHC 31.6(L) 32.2 - 35.5 g/dL [facility] Platelets 174(L) 182 - 369 K/uL [facility] RDW 17.6(H) 11.7 - 14.4 % [facility] Neutrophils Relative 77.2(H) 34.0 - 71.1 % [facility] Lymphocytes Relative 11.5(L) 19.3 - 51.7 % [facility] Monocytes 6.6 4.7 - 12.5 % [facility] Eosinophils Relative 1.6 0.7 - 5.8 % [facility] Basophils Relative 0.8 0.1 - 1.2 % [facility] Immature Granulocytes 2.3(H) 0.0 - 1.0 % [facility] 04/19/2024 3:00 AM EST 04/20/2024 1:31 PM EST Hernan Meehan MD LAB BLOOD ORDERABLES Final Re sult Performing Organization Address [facility] de Phone Number [facility] [address] [place] [address] * (ABNORMAL) ALT (04/19/2024 3:00 AM EST) Only the most recent of2 resultswithin the time period is included. ALT (SGPT) 7(L) 10 - 49 U/L [facility] 04/19/2024 3:00 AM EST 04/20/2024 12:56 PM EST Hernan Meehan MD LAB BLOOD ORDERABLES Final Re sult Performing Organization Address [facility] de Phone Number [facility] [address] [place] [address] * AST (04/19/2024 3:00 AM EST) Only the most recent of2 resultswithin the time period is included. AST (SGOT) 12 <34 U/L [facility] 04/19/2024 3:00 AM EST 04/20/2024 12:56 PM EST us Hernan Meehan MD LAB BLOOD ORDERABLES Final Re sult Performing Organization Address [facility] de Phone Number [facility] [address] [place] [address] * (ABNORMAL) Protein, total (04/19/2024 3:00 AM EST) Only the most recent of2 resultswithin the time period is included. Total Protein 6.2(L) 6.4 - 8.9 g/dL [facility] 04/19/2024 3:00 AM EST 04/20/2024 12:56 PM EST us Hernan Meehan MD LAB BLOOD ORDERABLES Final Re sult Performing Organization Address [facility] de Phone Number [facility] [address] [place] [address] * (ABNORMAL) Alkaline phosphatase (04/19/2024 3:00 AM EST) Only the most recent of2 resultswithin the time period is included. Alkaline Phosphatase 131(H) 46 - 116 U/L [facility] 04/19/2024 3:00 AM EST 04/20/2024 12:56 PM EST Hernan Meehan MD LAB BLOOD ORDERABLES Final Re sult Performing Organization Address [facility] Co de Phone Number [facility] [address] [place] [address] * (ABNORMAL) Magnesium (04/19/2024 3:00 AM EST) Only the most recent of2 resultswithin the time period is included. Magnesium 1.6(L) 1.9 - 2.7 mg/dL [facility] 04/19/2024 3:00 AM EST 04/20/2024 12:56 PM EST Hernan Meehan MD LAB BLOOD ORDERABLES Final Re sult Performing Organization Address [facility] de Phone Number [facility] [address] [place] [address] * (ABNORMAL) Lactate dehydrogenase (04/19/2024 3:00 AM EST) Only the most recent of2 resultswithin the time period is included. LDH 284(H) 120 - 246 U/L [facility] 04/19/2024 3:00 AM EST 04/20/2024 12:56 PM EST Hernan Meehan MD LAB BLOOD ORDERABLES Final Re sult Performing Organization Address [facility] de Phone Number [facility] [address] [place] [address] * (ABNORMAL) Glucose, random (04/19/2024 3:00 AM EST) Only the most recent of2 resultswithin the time period is included. Glucose 139(H) 74 - 109 mg/dL [facility] 04/19/2024 3:00 AM EST 04/20/2024 12:56 PM EST Hernan Meehan MD LAB BLOOD ORDERABLES Final Re sult Performing Organization Address [facility] Co de Phone Number [facility] [address] [place] [address] * (ABNORMAL) Ferritin (04/19/2024 3:00 AM EST) Only the most recent of2 resultswithin the time period is included. Ferritin 564(H) 10 - 291 ng/mL [facility] 04/19/2024 3:00 AM EST 04/20/2024 12:56 PM EST Hernan Meehan MD LAB BLOOD ORDERABLES Final Re sult Performing Organization Address [facility] de Phone Number [facility] [address] [place] [address] * (ABNORMAL) Creatinine, serum (04/19/2024 3:00 AM EST) Only the most recent of2 resultswithin the time period is included. Creatinine 4.76(H) 0.55 - 1.02 mg/dL [facility] 04/19/2024 3:00 AM EST 04/20/2024 12:56 PM EST Hernan Meehan MD LAB BLOOD ORDERABLES Final Re sult Performing Organization Address [facility] de Phone Number [facility] [address] [place] [address] * (ABNORMAL) Bilirubin, total (04/19/2024 3:00 AM EST) Only the most recent of2 resultswithin the time period is included. Total Bilirubin <0.2(L) 0.3 - 1.2 mg/dL [facility] 04/19/2024 3:00 AM EST 04/20/2024 12:56 PM EST Hernan Meehan MD LAB BLOOD ORDERABLES Final Re sult Performing Organization Address [facility] de Phone Number [facility] [address] [place] [address] * (ABNORMAL) Electrolyte panel (04/19/2024 3:00 AM EST) Only the most recent of2 resultswithin the time period is included. Sodium 140 136 - 145 mEq/L [facility] Potassium 4.4 3.4 - 5.0 mEq/L [facility] Chloride 108(H) 98 - 107 mEq/L [facility] Bicarbonate (CO2) 16(L) 21 - 31 mEq/L [facility] Anion Gap 16(H) 3 - 14 mEq/L [facility] 04/19/2024 3:00 AM EST 04/20/2024 12:56 PM EST Hernan Meehan MD LAB BLOOD ORDERABLES Final Re sult Performing Organization Address [facility] de Phone Number [facility] [address] [place] [address] * Confirmation Test HCV (04/12/2024 3:00 AM EST) Pathologist [facility] Hep C Ab Confirmation Not needed [facility] 04/12/2024 3:00 AM EST 04/13/2024 1:31 PM EST Hernan Meehan MD LAB BLOOD ORDERABLES Final Re sult Performing Organization Address [facility] de Phone Number [facility] [address] [place] [address] * HEPATITIS C ABS W/REFLEX RNA DETECTR (04/12/2024 3:00 AM EST) Hep C Virus Ab Non-Reacti ve Non-Reacti ve [facility] 04/12/2024 3:00 AM EST 04/13/2024 1:30 PM EST Hernan Meehan MD LAB [id number] SOLICITED RESULTS Final Result Performing Organization Address [facility] de Phone Number [facility] [address] [place] [address] * Hepatitis B Core Antibody, Total (04/12/2024 3:00 AM EST) Pathologist [facility] HBc Total Ab, S Negative Negative [facility] 04/12/2024 3:00 AM EST 04/13/2024 1:30 PM EST Hernan Meehan MD LAB BLOOD ORDERABLES Final Re sult Performing Organization Address [facility] de Phone Number [facility] [address] [place] [address] * Aluminum level (04/12/2024 3:00 AM EST) Pathologist [facility] Aluminum 11 1 - 20 ug/L [facility] 04/12/2024 3:00 AM EST 04/13/2024 1:32 PM EST Hernan Meehan MD LAB BLOOD ORDERABLES Final Re sult Performing Organization Address [facility] de Phone Number [facility] [address] [place] [address] * Vitamin D 25 Hydroxy (04/12/2024 3:00 AM EST) Pathologist [facility] Vitamin D, 25-Hydroxy 25 30 - 100 ng/mL [facility] Comment: Status ? Adult ?? Pediatric Deficient: ? <20 ? <15 Insufficient: ??20-29 ?? 15-19 Sufficient: ?30-100 ??20-100 04/12/2024 3:00 AM EST 04/13/2024 1:30 PM EST Hernan Meehan MD LAB BLOOD ORDERABLES Final Re sult Performing Organization Address [facility] de Phone Number [facility] [address] [place] [address] * (ABNORMAL) Hepatitis B Surface Antibody (04/12/2024 3:00 AM EST) Hep B Surface Antibody 5(A) mIU/mL [facility] Comment: Interpretation: <10: No Immunity >=10: Probable Immunity 04/12/2024 3:00 AM EST 04/13/2024 1:30 PM EST Hernan Meehan MD LAB BLOOD ORDERABLES Final Re sult Performing Organization Address [facility] de Phone Number [facility] [address] [place] [address] * Uric Acid (04/12/2024 3:00 AM EST) Pathologist [facility] Uric Acid 6.4 2.3 - 6.6 mg/dL [facility] 04/12/2024 3:00 AM EST 04/13/2024 1:30 PM EST Hernan Meehan MD LAB BLOOD ORDERABLES Final Re sult Performing Organization [facility] [facility] Phone Number [facility] [address] [place] [address] * PTH, Intact (04/12/2024 3:00 AM EST) Pathologist [facility] PTH, Intact 266 160 - 721 pg/mL [facility] Comment: Suggested (KDIGO) ESRD maintenance range is two to nine times the upper normal limit (80.1 pg/mL) for the laboratory. 04/12/2024 3:00 AM EST 04/13/2024 1:30 PM EST Hernan Meehan MD LAB BLOOD ORDERABLES Final Re sult Performing Organization Address [facility] de Phone Number [facility]PS [facility] [address] [place] [address] * (ABNORMAL) Hemoglobin A1c (04/12/2024 3:00 AM EST) Pathologist [facility] Hemoglobin A1C 5.7(H) <5.7 % [facility] Comment: Methodology: Enzymatic HbA1c (NGSP %) ?Suggested Diagnosis >6.4% ? Diabetic 5.7-6.4% ?Pre-Diabetic <5.7% ? Non-Diabetic Diabetic Glucose Control Evaluation: Therapeutic action suggested at >8.0% ADA recommends a glycemic goal of <7.0% 04/12/2024 3:00 AM EST 04/13/2024 1:31 PM EST us Hernan Meehan MD LAB BLOOD ORDERABLES Final Re sult [facility] [address] [place] [address] * (ABNORMAL) Lipid panel (04/12/2024 3:00 AM EST) Cholesterol 105 <200 mg/dL [facility] Comment: Optimal: ?<200 Borderline: ? 200-239 Higher Risk: ?>239 Triglycerides 169(A) <150 mg/dL [facility] Comment: Optimal: ?<150 Borderline High: ??150-199 High: ? 200-499 Very High: ?>499 HDL 30(A) >59 mg/dL [facility] Comment: Desirable: ?>59 Higher Risk: ?<40 LDL-Calc 41 <100 mg/dL [facility] Comment: Optimal: ?<100 Above Optimal: ?100-129 Borderline High: ??130-159 High: ? 160-189 Very High: ?>189 VLDL Cholesterol [place] 34(A) <30 mg/dL [facility] Comment: Optimal: ?<30 Borderline High: ??30-39 High: ? 40-99 Very High: ?>99 Chol/HDL Ratio 3.5(A) <3.3 [facility] Comment: Optimal: ?<3.3 Higher Risk: ?>6.2 04/12/2024 3:00 AM EST 04/13/2024 1:30 PM EST us Hernan Meehan MD LAB BLOOD ORDERABLES Final Re sult Performing Organization Address [facility]/ZIP Co de Phone Number [facility] [address] [place] [address] * Hepatitis B Profile (03/22/2024 3:08 PM EST) Hep B Surface Antibody NONREACTIVE Nonreactive See order comments Comment:Nonreactive: < 8.00 mIU/mL Hep B Core Total Ab Nonreactive Nonreactive See order comments Hep B Surface Antigen Negative Negative See order comments 03/22/2024 3:08 PM EST 03/22/2024 3:08 PM EST us Trent Mac MD LAB BLOOD ORDERABLES Final Resu lt Performing Organization Address [facility] Co de Phone Number [place] See order comments [place] [address] from Last 3 Months Insurance Medicare Medicaid [place] Medicaid [place] Medicare Care Teams Ict Project Manager Relationship Specialty Start Date End Date Jennifer Rico MD [address] [place] [phone] PCP - General Internal Medicine 12/13/21
--- OUTSIDE RECORDS SUMMARY | 2024-05-23 12:41 | XMS_ITS | Encounter Summary ---
Author Organization [employer] Address [address] [place] [address] 7 [place] [address] Care Team Providers Care Firearms Inspector Name Role Phone Lucrecia Teixeira MD Primary Care Provider [phone] Reason for Visit * Reason Onset Date Comments Med Refill 04/17/2024 Encounter Details Date Type Department Care Team ([facility] st Contact Info) Description 04/17/2024 Refill [facility] MEDICINE [address] [place] [address] Lucrecia Teixeira MD [address] [place] [address] Essential hypertension; Cardiorenal syndrome with renal failure Social History Tobacco Use Types Packs/Day Years [...] Description 07/15/2024 2:15 PM EDT Office Visit [facility] [address] [place] [address] Lucrecia Teixeira MD [address] [place] [address] documented as of this encounter Visit Diagnoses Diagnosis Essential hypertension Unspecified essential hypertension Cardiorenal syndrome with renal failure Unspecified hypertensive heart and kidney disease without heart failure and with chronic kidney disease stage I through stage IV, or unspecified documented in this encounter Additional Health Concerns Assessment Noted Time PHQ-9 Depression Total Score: 0 01/21/20 23 3:26 PM EST documented as of this encounter Care Teams Firearms Inspector Relationship Specialty Start Date End Date Lucrecia Teixeira MD [address] [place] [address] PCP - General Family Medicine 07/12/22 [facility] 04/06/24 documented as of this encounter
--- OUTSIDE RECORDS SUMMARY | 2024-05-23 12:41 | XMS_ITS | Encounter Summary ---
Author Organization [employer] Address [address] [facility] 7 [place] [address] Care Team Providers Care Hog Sticker Name Role Phone Lucrecia Teixeira MD Primary Care Provider [phone] Reason for Visit * Reason Onset Date Comments Referral 2022 Encounter Details Date Type Department Care Team ([facility] Contact Info) Description 2022 Telephone [facility] [address] [place] [address] Lucrecia Teixeira MD [address] [place] [address] Referral Social History Tobacco Use Types Packs/Day Years Used Date Smoking Tobacco: Never Smokeless Tobacco: Never Alcohol Use Standard Drinks/Week Comments Never 0 (1 standard drink = 0.6 oz pur e alcohol) PHQ-2 Answer Date Recorded Patient Health Questionnaire-2 Score 1 04/11/2022 Housing Stability Answer Date Recorded What is your housing situation today? I have agsutina rodriges 11/28/[address] you li ve. Do you have problems with any of the following? None of the above 11/28/2022 Food Insecurity Answer Date Recorded Within the past 12 months, y ou worried that your food would run out before you got money to buy more: Never True 11/28/2022 Within the past 12 months,th e food you bought just didn't last and you didn't have enough money to get more: Never True Transportation Answer Date Recorded In the past 12 months, has l ack of transportation kept you from medical appts, meetings, work or from getting things needed for daily living? Yes, it has kept me from medical appointments or getting medications. 11/22/2022 Utilities Answer Date Recorded In the past 12 months, has t he electric, gas, oil or water company threatened to shut off services in your home? No 11/28/2022 Depression Answer Date Recorded Patient Health Questionnaire-2 Score 1 04/11/2022 Comments Unknown Sex and Gender Information Value Date Recorded Sex Assigned at Female 12/13/2021 10:36 AM EDT Legal Sex Female 10:36 AM EDT Gender Identity Female 12/13/2021 10:36 AM EDT Sexual Orientation Choose not to disclose 2021 10:36 AM EDT documented as of this encounter Miscellaneous Notes * Telephone Encounter - Ro Sorto - 2022 12:56 PM EDT Tc from [facility] with [facility] requesting a [facility] referral. States pt seems interested. Any questions, contact [facility] at [phone] ext [phone] documented in this encounter Plan of Treatment Upcoming Encounters Date Type Department Care Team (Late st Contact Info) Description 07/15/2024 2:15 PM EDT Office Visit [facility] [address] [place] [address] Lucrecia Teixeira MD [address] [place] [address] documented as of this encounter Visit Diagnoses Not on filedocumented in this encounter Care Teams Hog Sticker Relationship Specialty Start Date End Date Lucrecia Teixeira MD [address] [place] [address] PCP - General Family Medicine 07/12/22 [facility] 04/06/24 documented as of this encounter
--- OUTSIDE RECORDS SUMMARY | 2024-05-23 12:41 | XMS_ITS | Encounter Summary ---
Author Organization [employer] Address [address] [facility] 7t [place] [address] Care Team Providers Care Revenue Cycle Consultant Name Role Phone Lucrecia Teixeira MD Primary Care Provider [phone] Reason for Visit * Reason Comments Med Refill Encounter Details Date Type Department Care Team ([facility] st Contact Info) Description 06/13/2023 Refill [facility] [address] [place] [address] Lucrecia Teixeira MD [address] [place] [address] Type 2 diabetes mellitus with stage 3 chronic kidney disease, with long-term current use of insulin, unspecified whether stage 3a or 3b CKD (CMS/HCC) Social History Tobacco Use Types Packs/Day Years Used Date Smoking Tobacco: Never Smokeless Tobacco: Never Alcohol Use Standard Drinks/Week Comments Never 0 (1 standard drink = 0.6 oz pur e alcohol) Depression Answer Date Recorded Patient Health Questionnaire-9 Score 0 01/20/2023 Patient Health Questionnaire-9 Score 0 01/20/2023 Last PHQ-9: Questionnaire Data Not on file 1 03/23/2022 Housing Stability Answer Date Recorded What is your housing situation today? I have agustina rodriges 11/28/[address] you [...] Patient Health Questionnaire-2 Score 0 01/20/2023 Comments Unknown Sex and Gender Information Value [...] Description 07/15/2024 2:15 PM EDT Office Visit [facility] MED[facility] [address] [place] [address] Lucrecia Teixeira MD [address] [place] [address] documented as of this encounter Visit Diagnoses Diagnosis Type 2 diabetes mellitus with stage 3 chronic kidney disease, with long-term current use of insulin, unspecified whether stage 3a or 3b CKD (CMS/HCC) documented in this encounter Additional Health Concerns Assessment Noted Time PHQ-9 Depression Total Score: 0 01/21/20 23 3:26 PM EST documented as of this encounter Care Teams Revenue Cycle Consultant Relationship Specialty Start Date End Date Lucrecia Teixeira MD [address] [place] [address] PCP - General Family Medicine 07/12/22 [facility] 04/06/24 documented as of this encounter
--- OUTSIDE RECORDS SUMMARY | 2024-05-23 12:41 | XMS_ITS | Data Portability ---
Author Organization [employer] Address [address] [place] [phone] Care Team Providers Care Casting Technician Name Role Phone [facility] Referring Provider [phone] Assessment Encounter Date Assessment Date Assessment LastModified by Organization Details LastModified Time 07/01/2022 07/01/2022 Called to delores a 66 y/o f w DMII, HTN, ? HF who c/o RLE spot on bowles x 3 weeks. Pt reports trauma, dog tail hitting leg . Has not attempted RICE or OTC analgesics. Denies any other sxs. VSS Lungs clr BLE: +1 edema b/l (provider recently d/c'd lasix) Clinical picture c/w w resultant effect of trauma. Picture indicative of bruising along with pts reported symptoms. Advise RICE and OTC analgesics. Alarm signs reviewed, advised to call 911 if onset. [email or web address] Not available 07/01/2022 17:21:45 Plan of Treatment Reminders Order Date Submit Date Provider Last Modified By Organization Details Last Modified Time Details Appointments None record ed. Lab None record ed. Referral None record ed. Procedures None record ed. Surgeries None record ed. Imaging None record ed. Medication Orders None record ed. Patient TargetsNo targets recorded. Patient InstructionsNo instructions recorded. Reason for Referral None Reported. Medical Equipment None Reported. Allergies Allergen ID Allergen Name Allergen Category Reaction Reaction Severity Criticality Documentation Date Start Date Code Code System Note Provider Name and Address Organization Details Recorded Time 9054 egg extract food,medi cation Not available Not available Not available 2023 17341 15 RxNorm Not Available [facility] - production 03:48:49 Medications Name Sig Start Date Stop Date Status Note LastModified by Organization Details LastModified Time losartan 50 mg tablet TAKE 1 TABLET BY MOUTH TWICE DAILY active Not Available Not Available No t Available quetiapine 25 mg tablet TAKE 1 TABLET BY MOUTH AT BEDTIME NEEDED active Not Available Not Available No t Available atorvastatin 80 mg tablet TAKE 1 TABLET BY MOUTH EVERY DAY active Not Available Not Available No t Available cefuroxime axetil 250 mg tablet TAKE 1 TABLET BY MOUTH TWICE DAILY active Not Available Not Available No t Available albuterol sulfate 2.5 mg/3 mL (0.083 %) solution for nebulization INHALE 1 AMPULE USING A NEBULIZER THREE TIMES DAILY NEEDED FOR SHORTNESS OF BREATH / FOR ASTHMA active Not Available Not Available N ot Available trazodone 50 mg tablet TAKE 2 TABLETS BY MOUTH AT BEDTIME active Not Available Not Available No t Available oxybutynin chloride ER 10 mg tablet,exten ded release 24 hr TAKE 1 TABLET BY MOUTH EVERY DAY DO NOT BREAK, CRUSH, DISSOLVE OR CHEW active Not Available Not Available No t Available fluconazole 150 mg tablet TAKE 1 TABLET BY MOUTH EVERY 3 DAYS FOR 3 DOSES active Not Available Not Available No t Available sucralfate 1 gram tablet TAKE 1 TABLET BY MOUTH FOUR TIMES DAILY BEFORE MEALS AND AT BEDTIME active Not Available Not Available N ot Available prednisone 20 mg tablet TAKE 2 TABLETS BY MOUTH EVERY DAY active Not Available Not Available No t Available amlodipine 5 mg tablet TAKE 1 TABLET BY MOUTH ONCE DAILY active Not Available Not Available No t Available omeprazole 40 mg capsule,malini yed release TAKE 1 CAPSULE BY MOUTH BEFORE BREAKFAST AND BEFORE DINNER active Not Available Not Available No t Available aspirin 81 mg tablet,delay ed release active Not Available Not Available N ot Available doxycycline monohydrate 100 mg tablet TAKE 1 TABLET BY MOUTH TWICE DAILY UNTIL FINISHED active Not Available Not Available No t Available acetaminophe n 500 mg tablet TAKE 1 TABLET BY MOUTH EVERY 6 HOURS NEEDED FOR FEVER OR FOR PAIN active Not Available Not Available No t Available famotidine 20 mg tablet TAKE 1 TABLET BY MOUTH TWICE DAILY active Not Available Not Available No t Available LetsWombatToSelleration Ultra Test strips USE TO TEST BLOOD SUGAR THREE TIMES DAILY active Not Available Not Available No t Available amlodipine 10 mg tablet TAKE 1 TABLET BY MOUTH EVERY DAY active Not Available Not Available No t Available benzonatate 100 mg capsule TAKE 1 CAPSULE BY MOUTH THREE TIMES DAILY NEEDED FOR COUGH active Not Available Not Available No t Available Proventil HFA 90 mcg/actuatio n aerosol inhaler INHALE 2 PUFFS BY MOUTH EVERY 4 TO 6 HOURS NEEDED active Not Available Not Available No t Available furosemide 20 mg tablet TAKE 1 TABLET BY MOUTH TWICE DAILY IN THE MORNING AND IN THE EVENING FOR FOURTEEN DAYS. active Not Available Not Available No t Available cefuroxime axetil 500 mg tablet TAKE 1 TABLET BY MOUTH TWICE DAILY FOR 5 DAYS active Not Available Not Available No t Available ondansetron 4 mg disintegrati ng tablet DISSOLVE 1 TABLET ON TONGUE EVERY 6 HOURS NEEDED FOR NAUSEA AND VOMITING active Not Available Not Available No t Available losartan 100 mg tablet TAKE 1 TABLET BY MOUTH EVERY MORNING active Not Available Not Available No t Available amoxicillin 875 mg-potassium clavulanate 125 mg tablet TAKE 1 TABLET BY MOUTH EVERY TWELVE HOURS UNTIL FINISHED active Not Available Not Available No t Available oxycodone 5 mg tablet TAKE 1 TABLET BY MOUTH EVERY 8 HOURS NEEDED FOR PAIN active Not Available Not Available No t Available duloxetine 60 mg capsule,malini yed release TAKE 1 CAPSULE BY MOUTH EVERY MORNING active Not Available Not Available No t Available OneTouch UltraSoft Lancets USE TO TEST BLOOD SUGAR THREE TIMES DAILY active Not Available Not Available No t Available Flovent HFA 110 mcg/actuatio n aerosol inhaler INHALE 1 PUFF TWICE DAILY. RINSE MOUTH AFTER USING. active Not Available Not Available No t Available Sure Comfort Pen Needle 31 gauge x 3/16 USE FIVE TIMES DAILY DIRECTED active Not Available Not Available Not Available diclofenac 1 % topical gel APPLY 2 GRAMS TOPICALLY TO FEET AT BEDTIME NEEDED active Not Available Not Available No t Available lacosamide 200 mg tablet TAKE 1 CAPSULE BY MOUTH TWICE DAILY active Not Available Not Available No t Available blood pressure test kit-large cuff USE TO CHECK BLOOD PRESSURE DAILY DIRECTED active Not Available Not Available No t Available [facility] spacer USE WITH INHALER EVERY 6 HOURS NEEDED active Not Available Not Available No t Available TRUEplus Lancets 33 gauge TEST BLOOD SUGAR FOUR TIMES DAILY active Not Available Not Available Not Available Breo Ellipta 100 mcg-25 mcg/dose powder for inhalation INHALE 1 PUFF EVERY DAY AT THE SAME TIME active Not Available Not Available No t Available Toujeo SoloStar U-300 Insulin 300 unit/mL (1.5 mL) subcutaneous pen INJECT 30 UNITS SUBCUTANEOU SLY TWICE DAILY active Not Available Not Available No t Available Humalog KwikPen U-200 Insulin 200 unit/mL (3 mL) subcutaneous INJECT 16 UNITS SUBCUTANEOU SLY THREE TIMES DAILY BEFORE MEALS. active Not Available Not Available No t Available OneTouch Ultra2 Meter USE TO TEST BLOOD SUGAR THREE TIMES DAILY active Not Available Not Available No t Available Vitals Date Recorded Body temperature Respiratory rate Body height Heart rate Oxygen saturation Oxygen saturation in Arterial blood by Pulse oximetry Body weight Body height Oxygen saturation Oxygen saturation in Arterial blood by Pulse oximetry Body weight Respiratory rate Heart rate Body temperature Systolic blood pressure Diastolic blood pressure Systolic blood pressure Diastolic blood pressure Provider Name and Address Organization Details Last Updated DateTime 3 98.4 [degF] 14 /min 157.48 cm 80 /min 96 % 96 % 97934.4 g 157.48 cm 96 % 96 % 70652.4 g 14 /min 80 /min 98.4 [degF] 152 mm[Hg] 84 mm[Hg] 152 mm[Hg] 84 mm[Hg] Not Available [facility] - production 3 17:41:06 Social History None recorded. Functional Status None recorded. Mental Status None recorded. Family History Nothing Reported. Medical History No medical history recorded. Gynecological HistoryNo gynecological history recorded. Obstetrics History GPAL:G 0 P 0 0 0 0 Past Encounters Encounter ID Performer Location Encounter Start Date Encounter Closed Date Diagnosis/Indication Diagnosis SNOMED-CT Code Diagnosis ICD10 Code Diagnosis Note [id number] Lin Hernandez MD [facility] - [facility] [address] [place] [phone] 07/01/2022 17:07:17 07/01/2022 19:58:23 Health Concerns Section Related Observation LastModified by Organization Detai ls LastModified Time None Recorded Concern Status LastModified by Organization Details LastModified Time None Recorded Advance Directives Directive None Recorded Payers Encounter Date Sequence Insurance Name Policy Number Policy Garcia Covered Member ID Garcia Member ID Guarantor Name 07/01/[address] [facility] [place] [place] - DOS PRIOR TO 2022 - DUAL ELIGIBLE (MEDICARE REPLACEMENT/ADV ANTAGE - HMO) Lori Perera [id number] Lori Perera Notes Date Note Type Note Provider Name and Address Organization Details Recorded Time 07/01/2022 text/html HPI: 66 year old female with hx. of significant untreated lower leg and pedal edema living with daughter on the first floor of a 2 family home with a dog which is crated and safe, this RN has been to home X 3, no issues. Member developed an area on her right lower leg, front bowles area, approximately 3 weeks ago which was round small and pink, has now progressed in size, deep red and has pain 8 out of 10. Member reports she thought it may have been from trauma, but family denied. Jennifer the contact speaks Tajik and lives in the home. ................... ................... ................... ................... ................... ................... ................... ........ CRC Nursing Assessment: Comments: CRC RN DID NOT NEED FURTHER INFO SDONNER ................... ................... ................... ................... ................... ................... ................... ........ Geriatric Nurse Assistant Note From Pritesh Cartagena: CAOx4 supine in bed. Through tax senior associate pt complains of right bowles pain. Caregiver reports a small bruise like bandar appeared three weeks ago after she was hit with the tail of a dog. Bandar has grown over three weeks. Pt states pain 8 of 10. Pt denies any other in or complaints. pink warm and dry, secondary exam unremarkable. +1 edema lower legs. bruise bandar about the size of a half dollar in middle of right bowles. recommends ice, elevation and tylenol. Pt reports she has tylenol on hand. Red flags and pt education discussed. Geriatric Nurse Assistant Allergies: Egg ................... ................... ................... ................... ................... ................... ................... ........ Disposition: Fulfilled Lin Hernandez MD [address] [place] [address],[address], [place], [phone], [facility] - [employer] MCKEON 07/01/2022 19:58:21 OBGyn Episode No OBEpisode recorded.
--- OUTSIDE RECORDS SUMMARY | 2024-05-23 12:41 | XMS_ITS | Encounter Summary ---
Author Organization [employer] Address [address] [place] [address] Care Team Providers Care Brim Buster Name Role Phone Lucrceia Teixeira MD Primary Care Provider Encounter Details Date Type Department Care Team ([facility] st Contact Info) Description 06/02/2023 Orders Only [facility] MEDICINE [address] [place], [place] [phone] Lucrecia Teixeira MD [address] [place] [address] Social History Tobacco Use Types Packs/Day Years [...] Description 07/15/2024 2:15 PM EDT Office Visit [facility] MED[facility] [address] [place] [address] Lucrecia Teixeira MD [address] [place] [phone] documented as of this encounter Visit Diagnoses Not on filedocumented in this encounter Additional Health Concerns Assessment Noted Time PHQ-9 Depression Total Score: 0 01/21/20 23 3:26 PM EST documented as of this encounter Care Teams Brim Buster Relationship Specialty Start Date End Date Lucrecia Teixeira MD [address] [place] [phone] PCP - General Family Medicine 07/12/22 [facility] 04/06/24 documented as of this encounter
--- OUTSIDE RECORDS SUMMARY | 2024-05-23 12:41 | XMS_ITS | Encounter Summary ---
Author Organization [employer] Address [address] [facility] [address] [place] [address] Care Team Providers Care Laser Beam Machine Operator Name Role Phone Jennifer Rico MD Primary Care Provide r Lucrecia Teixeira MD Primary Care Provider [phone] Reason for Visit * Reason Onset Date Comments triage 02/11/2022 Encounter Details Date Type Department Care Team ([facility] st Contact Info) Description 02/11/2022 Telephone [facility] [address] [place] [address] Jennifer Rico MD [address] [place], [place] [phone] triage Social History Tobacco Use Types Packs/Day Years [...] suspected to have Coronavirus/COVID-19? No / Unsure 01/31/2022 3:57 PM EST documented as of this encounter Miscellaneous Notes * Telephone Encounter - Sosa Barnett RN - 02/11/2022 5:11 PM EST Triage call with [place] [employer] [place] [id number] Pt is reporting dry cough is coming back after pneumonia several weeks ago. Pt denies difficulty breathing, neg for fever and is concerned that this cough could get worse. Pt doesn't want to go to the ED because of Covid. Home care is reviewed with Pt , Pt agrees. Advised to seek evaluation if difficulty breathing develops or fever. Pt is hesitant to agree. Advised Pt to increase liquids ,warm liquids especially and use cough drops. Pt may come to [facility] 02/15 if has gotten worse and Pt agrees. Protocol Used: Cough (Adult) Protocol-Based Disposition: See in Office or Video Visit within 3 Days Positive Triage Question: * Cough has been present for > 3 weeks * All higher-acuity triage questions were negative Care Advice Discussed: * Reassurance and Education - Cough * Cough Medicines * Cough Syrup With Dextromethorphan * Cough Syrup With Dextromethorphan - Extra Notes and Warnings * Coughing Spells * Prevent Dehydration * Avoid Tobacco Smoke * Humidifier * Fever Medicines * Fever Medicines - Extra Notes and Warnings * Expected Course * Reasons To Call Back - Difficulty breathing - Cough lasts more than 3 weeks - Fever lasts more than 3 days - You become worse * Telephone Encounter - Kaity Wayne - 02/11/2022 1:36 PM EST Symptom: Cough Outcome: Schedule an urgent appointment (within 1 hour) or talk to a nurse or provider soon Reason: Wheezing The caller accepted this outcome documented in this encounter Plan of Treatment Upcoming Encounters Date Type Department Care Team (Late st Contact Info) Description 07/15/2024 2:15 PM EDT Office Visit [facility] [address] [place] [address] Lucrecia Teixeira MD [address] [place] [address] documented as of this encounter Visit Diagnoses Not on filedocumented in this encounter Care Teams Laser Beam Machine Operator Relationship Specialty Start Date End Date Barciona Ibrahim, Blank, MD [address] [place] [address] PCP - General Family Medicine 12/05/18 07/11/22 Lucrecia Teixeira MD [address] [place] [address] PCP - General Family Medicine 07/12/22 [facility] 04/06/24 documented as of this encounter
--- OUTSIDE RECORDS SUMMARY | 2024-05-23 12:41 | XMS_ITS | Encounter Summary ---
Author Organization [employer] Address [address] [place] [address] [place], [place] [address] Care Team Providers Care Endoscopy Technician Name Role Phone Lucrecia Teixeira MD Primary Care Provider [phone] Encounter Details Date Type Department Care Team ([facility] Contact Info) Description 10/21/2022 Telephone [facility] [address] [place] [phone] Lucrecia Teixeira MD [address] [place] [address] [phone] Social History Tobacco Use Types Packs/Day Years [...] Upcoming Encounters Date Type Department Care Team ([facility] Contact Info) Description 07/15/2024 2:15 PM EDT Office Visit [facility] [address] [place] [phone] Lucrecia Teixeira MD [address] [place] [address] [phone] documented as of this encounter Visit Diagnoses Not on filedocumented in this encounter Care Teams Endoscopy Technician Relationship Specialty Start Date End Date Lucrecia Teixiera MD [address] [place] [address] PCP - General Family Medicine 07/12/22 [facility] 04/06/24 documented as of this encounter
--- OUTSIDE RECORDS SUMMARY | 2024-05-23 12:41 | XMS_ITS ---
Author Organization [facility] Care Team Providers Care Research Subject Name Role Phone Farheen Lou Unavailable Unavailable Fior Tian Unavailable Lucius Osman Unavailable Allergies and adverse reactions Code CodeSystem Substance Reaction Severity StartDate Concern Status Egg-derived Products Moderate 05/22/2024 active Care Team Name Role Address Phone Organization Dates Lucius Osman PCP [address] [place] [address], [facility] (Office): : [facility] 05/22/2024 - present Farheen Lou Attending Physician [address] [place] [address], [facility] (Office): : [facility] 05/22/2024 - present Fior Tian Attending Physician [address] [place] [address], [facility] (Office): : [facility] 05/22/2024 - present Goals Section Description Status Target Date I will be free of infection, pain or bleeding in the oral cavity by/through review date. Active 08/16/2024 I will be able to communicat e adequately with my care team and to have my needs met through review date. Active 08/16/2024 I will be at reduced risk fo r adverse drug reactions through the review date. Active 08/16/2024 I will be at reduced risk fo r complications of self care performance deficit and impaired mobility daily through the review date. Active 08/16/2024 I will be at reduced risk fo r new or worsened impaired skin integrity daily through the review date. Active 08/16/2024 I will be free from discomfo rt and adverse effects of pain medication through the review date. Active 08/16/2024 I will be free from discomfo rt or adverse side effects related to anti-anxiety therapy through the review date. Active 08/17/19 I will be free from discomfo rt or adverse side effects related to anti-depressant therapy through the review date. Active 08/16 I will be free of fall relat ed injury through the next review date. Active 08/16/2024 I will have no signs or symp toms of complications from dialysis through the next review date. Active 08/16/2024 I will improve current level of function in (SPECIFY: Bed Mobility, Transfers, Eating, Dressing, Toilet Use and Personal Hygiene, ADL Score) by the review date. Resident will be able to: (SPECIFY) Active 08/16/2024 I will not experience compli cations of oral/dental health problems through the review date. Active 08/16/2024 I will not have skin breakdo wn due to incontinence through the review date. Active 08/16/2024 I will not have skin breakdo wn due to incontinence through the review date. Active 08/16/2024 I will verbalize adequate re lief of pain or ability to cope with incompletely relieved pain through the review date. Active Functional Status Code Name Recorded Time Value Entered By Eating 05/23/2024 Not assessed rbrodeur Lying to sitting on side of bed 05/23/2024 Not asses sed rbrodeur Oral hygiene 05/23/2024 Not assessed rbrodeur Personal hygiene 05/23/2024 Not assessed rbrodeur Shower/bathe self 05/23/2024 Not assessed rbrodeur Sit to lying 05/23/2024 Not assessed rbrodeur Toilet transfer 05/23/2024 Not assessed rbrodeur Toileting hygiene 05/23/2024 Not assessed rbrodeur Medications Section Medication Name Status Code CodeSystem Dose Route Frequency Admin Type Sig Text Start Date End Date amLODIPine Besylate Oral Tablet 10 MG active 338830 RXNORM 1 tablet Oral one time a day Routine Give 1 tablet by mouth one time a day every Mon, Mon, Mon for Hypert ension AND Give 1 tablet by mouth one time a day every Mon, Anali, Sat, Sun for Hypert ension 2024 - 374398 RXNORM 1 tablet Oral one time a day Routine Give 1 tablet by mouth one time a day every Mon, Mon, Mon for Hypert ension AND Give 1 tablet by mouth one time a day every Mon, Mon, Sat, Sun for Hypert ension 2024 - oxyCODONE HCl Oral Tablet 5 MG active 816915 1 RXNORM 1 tablet Oral as needed PRN Give 1 tablet by mouth every 4 hours as needed for SEVERE (7-10 ) Pain 2024 - Tubersol Solution 5 UNIT/0.1ML complete d 098638 RXNORM 0.1 ml Intrade rmal one time only One Time Only Inject 0.1 ml intrad ermall y one time only for Screen ing For TB until 2024 23:59 record indura tion in millim eters; Read PPD in 48 hours, notify physic shani if positi ve and discon tinue 2-step . 05/23 Tubersol Solution 5 UNIT/0.1ML active 874214 RXNORM 0.1 ml Intrade rmal one time only One Time Only Inject 0.1 ml intrad ermall y one time only for Screen ing For TB until 2024 23:59 record indura tion in millim eters; Read PPD in 48 hours, notify physic shani if positi ve. 06/06 Glucose Gel 40 % active 399341 RXNORM 1 applic ation Oral as needed PRN Give 1 applic ation by mouth as needed for Blood Sugars less than 60 and consci ous, rechec k blood sugar in 15-min if blood sugar is less than 60 may repeat x1 and call 2024 - Glucagon Emergency Kit 1 MG active 635593 RXNORM 1 ml Intramu scular as needed PRN Inject 1 ml intram uscula rly as needed for Blood Sugars less than 60 and uncons cious or unresp onsive , and call MDRen 2024 - Acetaminophen ER Oral Tablet Extended Release 650 MG active 828849 9 RXNORM 1 tablet Oral as needed PRN Give 1 tablet by mouth every 8 hours as needed for Mild (4-6) Pain DO NOT EXCEED MORE THAN 3 GRAMS/ 24 HOURS 2024 - Insulin Glargine Subcutaneous Solution Pen-injector 100 UNIT/ML active 474283 RXNORM 10 unit Subcuta neous at bedtime Routine Inject 10 unit subcut aneous ly at bedtim e for Diabet es Manage ment 2024 - Atorvastatin Calcium Oral Tablet 80 MG active 646819 RXNORM 1 tablet Oral in the evening Routine Give 1 tablet by mouth in the evenin g for Hyperl ipidem ia 2024 - levETIRAcetam Oral Tablet 500 MG active 927317 RXNORM 1 tablet Oral in the evening Routine Give 1 tablet by mouth in the evenin g every Mon, Mon, Fri for Seizur e Disord er Give After Dialys is 2024 - Ferrous Gluconate Oral Tablet 324 (38 Fe) MG active RXNORM 1 tablet Oral one time a day Routine Give 1 tablet by mouth one time a day every Mon, Mon, Fri for Iron Supple ment AND Give 1 tablet by mouth one time a day every Mon, Anali, Sat, Sun for Iron Supple ment 2024 - RXNORM 1 tablet Oral one time a day Routine Give 1 tablet by mouth one time a day every Mon, Mon, Mon for Iron Supple ment AND Give 1 tablet by mouth one time a day every Mon, Anali, Sat, Sun for Iron Supple ment 2024 - Folic Acid Oral Tablet 1 MG active 487478 RXNORM 1 tablet Oral one time a day Routine Give 1 tablet by mouth one time a day every Mon, Mon, Mon for Supple ment AND Give 1 tablet by mouth one time a day every Mon, Anali, Sat, Sun for Supple ment 2024 - 850325 RXNORM 1 tablet Oral one time a day Routine Give 1 tablet by mouth one time a day every Mon, Mon, Fri for Supple ment AND Give 1 tablet by mouth one time a day every Mon, Anali, Sat, Sun for Supple ment 2024 - Gabapentin Oral Capsule 100 MG active 218189 RXNORM 2 capsul e Oral one time a day Routine Give 2 capsul e by mouth one time a day every Mon, Mon, Mon for Seizur e Disord er AND Give 2 capsul e by mouth one time a day every Mon, Anali, Sat, Sun for Seizur e Disord er 2024 - 172853 RXNORM 2 capsul e Oral one time a day Routine Give 2 capsul e by mouth one time a day every Mon, Mon, Mon for Seizur e Disord er AND Give 2 capsul e by mouth one time a day every Mon, Mon, Sat, Sun for Seizur e Disord er 2024 - LORazepam Oral Tablet 0.5 MG aborted RXNORM 1 tablet Oral as needed PRN Give 1 tablet by mouth every 24 hours as needed for Anxiet y 05/22 Gabapentin Oral Capsule 300 MG active 278425 RXNORM 1 capsul e Oral in the evening Routine Give 1 capsul e by mouth in the evenin g every Mon, Mon, Mon for Seizur e Disord er Give After Dialys is 2024 - Losartan Potassium Oral Tablet 100 MG active 636840 RXNORM 1 tablet Oral two times a day Routine Give 1 tablet by mouth two times a day every Mon, Mon, Mon for Hypert ension AND Give 1 tablet by mouth two times a day every Mon, Anali, Sat, Sun for Hypert ension 2024 - 703437 RXNORM 1 tablet Oral two times a day Routine Give 1 tablet by mouth two times a day every Mon, Mon, Mon for Hypert ension AND Give 1 tablet by mouth two times a day every Mon, Anali, Sat, Sun for Hypert ension 2024 - Diclofenac Sodium External Gel 1 % active 262226 RXNORM n/a n/a Topical as needed PRN Apply to Bilate ral Feet topica lly every 24 hours as needed for Pain 2024 - Cholecalcifer ol Oral Tablet 25 MCG (1000 UT) active 285139 RXNORM 2 tablet Oral one time a day Routine Give 2 tablet by mouth one time a day every Mon, Mon, Mon for Vitami n D Supple ment AND Give 2 tablet by mouth one time a day every Mon, Anali, Sat, Sun for Vitami n D Supple ment 2024 - 19920715 RXNORM 2 tablet Oral one time a day Routine Give 2 tablet by mouth one time a day every Mon, Mon, Mon for Vitami n D Supple ment AND Give 2 tablet by mouth one time a day every Mon, Anali, Sat, Sun for Vitami n D Supple ment 2024 - Phenytoin Sodium Extended Oral Capsule 100 MG active 854731 RXNORM 1 capsul e Oral three times a day Routine Give 1 capsul e by mouth three times a day for Seizur e Disord er 2024 - Furosemide Oral Tablet 80 MG active 19760414 RXNORM 1 tablet Oral two times a day Routine Give 1 tablet by mouth two times a day every Mon, Mon, Mon for Edema AND Give 1 tablet by mouth two times a day every Mon, Anali, Sat, Sun for Edema 2024 - 19760414 RXNORM 1 tablet Oral two times a day Routine Give 1 tablet by mouth two times a day every Mon, Mon, Mon for Edema AND Give 1 tablet by mouth two times a day every Mon, Anali, Sat, Sun for Edema 2024 - Omeprazole Oral Capsule Delayed Release 40 MG active 20020324 RXNORM 1 capsul e Oral two times a day Routine Give 1 capsul e by mouth two times a day for GERD DO NOT CRUSH OR CHEW 2024 - Sertraline HCl Oral Tablet 50 MG active 544231 RXNORM 1 tablet Oral one time a day Routine Give 1 tablet by mouth one time a day every Mon, Mon, Mon for Depres ricky AND Give 1 tablet by mouth one time a day every Mon, Anali, Sat, Sun for Depres ricky 2024 - 900222 RXNORM 1 tablet Oral one time a day Routine Give 1 tablet by mouth one time a day every Mon, Mon, Mon for Depres ricky AND Give 1 tablet by mouth one time a day every Mon, Anali, Sat, Sun for Depres ricky 2024 - traZODone HCl Oral Tablet 50 MG aborted 449469 RXNORM 2 tablet Oral as needed PRN Give 2 tablet by mouth every 24 hours as needed for Sleep 05/23 Valproic Acid Oral Capsule 250 MG active 755290 1 RXNORM 2 capsul e Oral two times a day Routine Give 2 capsul e by mouth two times a day every Mon, Mon, Mon for Seizur e Disord er AND Give 2 capsul e by mouth two times a day every e, Anali, Sat, Sun for Seizur e Disord er 2024 - 216624 1 RXNORM 2 capsul e Oral two times a day Routine Give 2 capsul e by mouth two times a day every Mon, Mon, Mon for Seizur e Disord er AND Give 2 capsul e by mouth two times a day every e, Anali, Sat, Sun for Seizur e Disord er 2024 - LORazepam Oral Tablet 0.5 MG active 146092 RXNORM 1 tablet Oral as needed PRN Give 1 tablet by mouth every 24 hours as needed for Anxiet y for 14 Days 06/05 traZODone HCl Oral Tablet 50 MG active 820071 RXNORM 2 tablet Oral as needed PRN Give 2 tablet by mouth every 24 hours as needed for Sleep for 14 Days 06/06 Problems Problem # Description Date of onset Resolved Date Code CodeSystem Concern Status 1 ANEMIA IN OTHER CHRONIC DISEASES CLASSIFIED ELSEWHERE 05/23/[address] active 2 CELLULITIS OF LEFT LOWER LIMB 05/23/[address] active 3 DEPENDENCE ON RENAL DIALYSIS 05/23/[address] active 4 END STAGE RENAL DISEASE 05/23/[address] active 5 ESSENTIAL (PRIMARY) HYPERTENSION 05/23/[address] active 6 GASTRO-ESOPHAGEAL REFLUX DISEASE WITHOUT ESOPHAGITIS 05/23/[address] active 7 HISTORY OF FALLING 05/23/[address] active 8 OTHER ACUTE OSTEOMYELITIS, LEFT ANKLE AND FOOT 05/23/[address] active 9 TRAUMATIC SUBDURAL HEMORRHAGE WITHOUT LOSS OF CONSCIOUSNESS, SUBSEQUENT ENCOUNTER 05/23/[address] active 10 TYPE 2 DIABETES MELLITUS WITH DIABETIC NEPHROPATHY 05/23/[address] active 11 TYPE 2 DIABETES MELLITUS WITH FOOT ULCER 05/23/[address] active 12 UNSPECIFIED ASTHMA, UNCOMPLICATED 05/23/[address] active 13 UNSPECIFIED CONVULSIONS 05/23/[address] active Reason for Referral No Reasons for Referral Entered Social History Social History Observation Description Start Date End Date Code Code System Current Smoking Status Tobacco smoking consumption unknown 796910417 SNOMED CT Sex Assigned At Female 1955 68101-2 [facility] Vital Signs Code Code System Vitals Name Values and Units Timing Information 53441-6 [facility] Weight Inabx=361.0 Units=Lbs 11/2024 8302-2 [facility] Height Value=62.0 Units=Inches 05/23/2024 2339-0 [facility] Blood Sugar Rgexa=484.0 Units=mg/dL 05/23/2024 06562-7 [facility] Pain Level Value=6.0 05/23/2024 9279-1 [facility] Respiratory Rate Value=18.0 Units=/m in 05/23/2024 8462-4 [facility] Blood Pressure-Diastolic Value=64 Un its=mmHg 05/23/2024 8480-6 [facility] Blood Pressure-Systolic Nopni=122 Un its=mmHg 05/23/2024 8310-5 [facility] Body Temperature Value=98.2 Units=?? F 05/23/2024 8867-4 [facility] Heart rate Value=90.0 Units=/min 11/2024 17875-0 [facility] O2 % BldC Oximetry Value=95.0 Units= % 05/23/2024
--- OUTSIDE RECORDS SUMMARY | 2024-05-23 12:41 | XMS_ITS | Encounter Summary ---
Author Organization [employer] Address [address] [place] [address] [address] [place] [address] Care Team Providers Care Upholstery Technician Name Role Phone Lucrecia Teixeira MD Primary Care Provider [phone] Encounter Details Date Type Department Care Team ([facility] Contact Info) Description 08/11/2022 Abstract [facility] [address] [place] [address] Lucrecia Teixeira MD [address] [place] [address] Social History Tobacco Use Types Packs/Day Years [...] suspected to have Coronavirus/COVID-19? No / Unsure 07/22/2022 10:57 AM EDT documented as of this encounter Plan of Treatment Upcoming Encounters Date Type Department Care Team ([facility] Contact Info) Description 07/15/2024 2:15 PM EDT Office Visit [facility] [address] [place] [address] Lucrecia Teixeira MD [address] [place] [address] documented as of this encounter Visit Diagnoses Not on filedocumented in this encounter Care Teams Upholstery Technician Relationship Specialty Start Date End Date Lucrecia Teixeira MD [address] [place] [address] PCP - General Family Medicine 07/12/22 [facility] 04/06/24 documented as of this encounter
[2024-05-23 13:10] LABS: Influenza A PCR NEGATIVE (Negative); Influenza B PCR NEGATIVE (Negative); Resp Syncy Virus RNA Qual PCR NEGATIVE (Negative); SARS COV2 PCR INHOUSE NEGATIVE (Negative)
[2024-05-23] MEDS: Nystatin Ointment 15 GM TUBE 1 APPL TOPICAL (14:55)
[2024-05-23] MEDS: oxyCODONE HCl Immed Release 5 MG TABLET 10 MG PO (14:55)
--- NOTE | 2024-05-23 15:03 | PC.NURSE ---
medication delivered from pharmacy/applied to affected areas. pt tearful d/t increased pain. pt medicated per provider order. effectiveness pending.
[2024-05-23] MEDS: LORazepam 1 MG TABLET PO (15:16)
--- NOTE | 2024-05-23 17:09 | PC.NURSE ---
nurse to nurse given to PRASHANTH Mccann at [facility] at this concepcion.e.
--- NOTE | 2024-05-23 17:12 | PC.NURSE ---
nurse to nurse given to PRASHANTH Mccann at [facility] at this time.
--- NOTE | 2024-05-23 17:25 | PC.NURSE ---
report given to TUNDE Vicente. pt leaving [facility] [place] [place] at this time.
== END 2024-05-23 17:26 | disposition skilled nursing facility (03) ==
PROVIDERS: Physician Assistant Medical; Emergency Provider Emergency Medicine; PCP General Practice
DX: S91.301A Unspecified open wound, right foot, initial encounter (principal); S71.101A Unspecified open wound, right thigh, initial encounter; S81.802A Unspecified open wound, left lower leg, initial encounter; S71.102A Unspecified open wound, left thigh, initial encounter; S91.302A Unspecified open wound, left foot, initial encounter; S21.002A Unspecified open wound of left breast, initial encounter; S31.829A Unspecified open wound of left buttock, initial encounter; S31.819A Unspecified open wound of right buttock, initial encounter; X58.XXXA Exposure to other specified factors, initial encounter; R50.9 Fever, unspecified; Y93.9 Activity, unspecified; Y92.122 Bedroom in nursing home as the place of occurrence of the external cause; Y99.9 Unspecified external cause status; E11.22 Type 2 diabetes mellitus with diabetic chronic kidney disease; I13.2 Hypertensive heart and chronic kidney disease with heart failure and with stage 5 chronic kidney disease, or end stage renal disease; I50.20 Unspecified systolic (congestive) heart failure; N18.6 End stage renal disease; N17.9 Acute kidney failure, unspecified; D63.1 Anemia in chronic kidney disease; Z99.2 Dependence on renal dialysis; E78.5 Hyperlipidemia, unspecified; J45.909 Unspecified asthma, uncomplicated; E66.9 Obesity, unspecified; Z68.41 Body mass index [BMI] 40.0-44.9, adult; Z89.422 Acquired absence of other left toe(s); Z79.4 Long term (current) use of insulin; Z79.02 Long term (current) use of antithrombotics/antiplatelets; Z79.899 Other long term (current) drug therapy; Z03.818 Encounter for observation for suspected exposure to other biological agents ruled out
CPT/HCPCS: 0241U; 36415; 71045; 73521; 73590; 73630; 80053; 82248; 83605; 83735; 85025; 85652; 86140; 86850; 86900; 86901; 87040; 87070; 87077; 87186; 87205; 96365; 96367; 96375; 99285; J0131; J2270; J2543; J3370

== ENCOUNTER → 2024-05-23 10:00 | Outpatient (BNV) | payer MEDICARE, MEDICAID, SELFPAY | PROVIDERS: Emergency Provider Emergency Medicine; PCP General Practice; Visit Provider Radiology Diagnostic Radiology | DX: M79.89 Other specified soft tissue disorders (principal); I51.7 Cardiomegaly; J98.4 Other disorders of lung; M85.871 Other specified disorders of bone density and structure, right ankle and foot; M85.862 Other specified disorders of bone density and structure, left lower leg | CPT/HCPCS: 71045; 73521; 73590; 73630 ==

== ENCOUNTER 2024-05-27 11:45 | Inpatient (IN) | payer MEDICARE, MEDICAID, SELFPAY ==
[2024-05-27] VITALS (16 sets, daily range): BP systolic 99–172; BP diastolic 30–68; PULSE 73–102; RESP 11–20; TEMP 36.8–37.9; O2SAT 95–100; BMI 39.7; BMI 40.3
--- NOTE | ~2024-05-27 | XR_ITS ---
EXAMINATION: XR FOOT 1-2 VIEWS RIGHT HISTORY: osteo suspicion on heel COMPARISON: There are no prior studies available for comparison. FINDINGS: AP and lateral views of the right foot are submitted. The examination is limited by difficulty in patient positioning. The bones are osteopenic. There is a soft tissue ulcer over the calcaneus. No lytic lesion is identified. No fracture or dislocation is seen, although evaluation of the toes is limited by flexion on all images. The joint spaces are not well evaluated. There are vascular calcifications. XR/XR foot RT 2V IMPRESSION: Limited examination as described. Soft tissue ulceration of the calcaneus. No plain film evidence of osteomyelitis. If this is a clinical concern, three-phase bone scan or MRI could be performed. Electronically signed by: James Ruiz MD 05/27/2024 01:50 PM EDT
--- NOTE | ~2024-05-27 | CT_ITS ---
EXAMINATION: CT HIP WITHOUT CONTRAST, RIGHT CLINICAL INFORMATION: Suspicion for osteomyelitis of the right hip. COMPARISON: Correlation made with CT abdomen and pelvis 05/18/2024, and hip radiographs 05/23/2024. TECHNIQUE: Multidetector volumetric imaging was obtained through the right hip without contrast material. Multiplanar reformatted images were submitted in coronal and sagittal planes. This CT examination was performed using dose optimization techniques as appropriate, variously including the following: *Automated exposure control *Adjustment of mA and/or kV according to patient size (this includes techniques or standardized protocols for targeted exams where dose is matched to indication/reason for exam; i.e. extremities or head) *Use of iterative reconstruction technique FINDINGS: There is normal alignment of the right hip joint. There is no fracture, dislocation, or suspicious bone lesion. There are no regions of focal osteopenia, or permeative bony type changes to suggest osteomyelitis. The proximal femur is normal in appearance. The imaged pelvis is normal in appearance. There is sclerosis of the iliac aspect of the right SI joint, partially imaged. This is likely degenerative. No evidence of septic arthropathy. No significant hip joint effusion is noted. Soft tissues demonstrate extensive vascular calcification of the arterial vessels. No abnormal hematoma or focal abnormal fluid collection. Normal-appearing bladder, uterus, adnexal structures. No pelvic lymphadenopathy or free fluid. There is mild thickening of the sigmoid colon and rectum, suggesting possible colitis. Correlate clinically. Subcutaneous stranding and skin thickening of the right lateral buttock and hip region, extending along the posterior upper leg. No discrete fluid collection or abscess. CT/CT hip RT wo IV con IMPRESSION: 1. No acute bony findings. No CT evidence of osteomyelitis or septic arthropathy. 2. Incidentally noted is diffuse wall thickening of the rectosigmoid, suggesting colitis. This is new from the prior CT. Correlate for signs and symptoms. 3. Extensive diffuse vascular atherosclerosis. 4. Subcutaneous stranding and skin thickening of the right lateral buttock and hip region, extending along the posterior upper leg. No discrete fluid collection or abscess. Findings suggest cellulitis. Electronically signed by: Rupesh Araya MD 05/27/2024 02:01 PM EDT
[2024-05-27] MEDS: Piperacillin Sodium/Tazobactam 3.375 GM in 0.9 % Sodium Chloride 50 ML IV (12:41)
[2024-05-27] MEDS: 0.9 % Sodium Chloride 1,500 ML 999 ML IVCONT (12:43)
--- NOTE | 2024-05-27 12:43 | ED.GENADULT ---
HPI - General Adult General Chief complaint: Recheck/Abnormal Lab/Rx Stated complaint: low hemoglobin and wound pain from SNF Time Seen by Provider: 05/27/24 11:52 Source: patient and EMS Mode of arrival: EMS Limitations: other History of Present Illness ED Provider: Dr. Bethany Barber HPI narrative: Patient comes to the emergency room via ambulance from [facility]. According to the staff, patient was noted to have a low hemoglobin of 5.7 and a hematocrit of 18.4 from labs that were done earlier this morning. 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 Patient was discharged from here 6 days ago. Last time that she was here, patient had an acute subdural hematoma, patient denies any headache. It was noted on patient's discharge papers that patient was recommended to be on vancomycin which was recommended by ID for 6 weeks. However, on patient's list of medication from the [facility], there is no vancomycin. We will call the nursning home and check if the patient is getting IV antibiotics. Related Data Home Medications ?Medication ?Instructions ?Recorded ?Confirmed blood sugar diagnostic (FreeStyle 03/28/20 09/09/22 Lite Strips) blood-glucose meter (FreeStyle 03/28/20 09/09/22 [place] Lite kit) lancets 28 gauge (FreeStyle 03/28/20 09/09/22 Lancets) omeprazole 40 mg capsule,delayed 40 mg PO BID@0630,1630 10/02/21 05/23/24 release blood pressure test kit-large #1 ea 10/12/21 09/09/22 atorvastatin 80 mg tablet 80 mg PO DAILY 12/20/21 05/23/24 nebulizers 01/20/22 09/09/22 amlodipine 10 mg tablet 10 mg PO DAILY 05/29/22 05/23/24 lancets 33 gauge (TRUEplus Lancets) #100 ea 06/07/22 09/09/22 trazodone 50 mg tablet 100 mg PO BEDTIME PRN Sleep 06/07/22 05/23/24 cholecalciferol (vitamin D3) 50 50 mcg PO DAILY 11/24/22 05/23/24 mcg (2,000 unit) tablet ferrous gluconate 324 mg (38 mg 324 mg PO DAILY 11/24/22 05/23/24 iron) tablet acetaminophen 650 mg 650 mg PO Q8H PRN mild pain 02/07/25 04/10/25 tablet,extended release diclofenac sodium 1 % topical gel 2 g topical BEDTIME PRN Pain 03/22/24 05/23/24 losartan 100 mg tablet 100 mg PO BID 03/22/24 05/23/24 valproic acid 250 mg capsule 1,000 mg PO BID 03/22/24 05/23/24 furosemide 40 mg tablet 80 mg PO BID 05/04/24 05/23/24 gabapentin 100 mg capsule 200 mg PO DAILY 05/04/24 05/23/24 gabapentin 300 mg capsule 300 mg PO MOWEFR@1800 05/04/24 05/23/24 levetiracetam 500 mg tablet 500 mg PO MOWEFR@1800 05/04/24 05/23/24 lorazepam 0.5 mg tablet 0.5 mg PO DAILY PRN anxiety 05/04/24 05/23/24 sertraline 50 mg tablet 100 mg PO DAILY 05/04/24 05/23/24 Previous Rx's ?Medication ?Instructions ?Recorded phenytoin sodium extended 100 mg 100 mg PO TID #90 caps 11/03/23 capsule (Dilantin Extended) folic acid 1 mg tablet 1 mg PO DAILY #90 tabs 04/02/24 epoetin gabino-epbx 10,000 unit/mL 10,000 unit subcut MoWeFr@1645 #10 05/22/24 injection solution (Retacrit) mL insulin glargine 100 unit/mL 10 unit (0.1 mL) subcut BEDTIME 05/22/24 subcutaneous solution (Lantus #10 mL U-100 Insulin) oxycodone 5 mg tablet 5 mg PO Q4H PRN Pain, Severe (Pain 05/22/24 Scale 7-10) #30 tabs sodium thiosulfate 12.5 gram/100 13 g (104 mL) IV 3XW #100 mL 05/22/24 mL (125 mg/mL) intravenous solution vancomycin 500 mg intravenous 500 mg IV 3XW 05/22/24 solution Allergies Allergy/AdvReac Type Severity Reaction Status Date / Time Egg Derived Allergy Unknown Verified 05/27/24 12:18 Review of Systems Review of Systems: Constitutional : No Weight loss, No Fever, No Chills, No Night Sweats, complaining of chronic fatigue ENT/Mouth : No Hearing loss, No Ear Pain, No Nasal Congestion, No Sinus Pain, No Hoarseness, No sore throat, No Rhinorrhea, No Swallowing Difficulty Eyes: No Eye Pain, No Swelling, No Redness, No Foreign Body, No Discharge, No Vision Changes Cardiovascular : No Chest Pain, No SOB, No Dyspnea on Exertion, No Orthopnea, No Edema, No Palpitations Respiratory : No Cough, No Sputum, No Wheezing, No Smoke Exposure, No Dyspnea Gastrointestinal : No Nausea, No Vomiting, No Diarrhea, No Constipation, No abdominal Pain, No Hematochezia, No Melena Genitourinary : no irregular bleeding, No Dysuria, No Urinary Frequency, No Hematuria, No Urinary Incontinence, No Urgency, No Flank Pain, No Urinary Flow Changes, No Hesitancy Musculoskeletal : No joint pain, No Myalgias, No Joint Swelling Skin : Complaining of severe pain and itching in all her wounds Neuro : No Weakness, No Numbness, No Paresthesias, No Loss of Consciousness, No Dizziness, No Headache Psych : No Anxiety/Panic, No Depression, No SI/HI/AH/VH, No Social Issues, Heme/Lymph: No Bruising, No Bleeding,No Lymphadenopathy Endocrine : No Polyuria, No Polydipsia, No Temperature Intolerance PMFSH Past Medical History Medical History Eschar of heel ESRD (end stage renal disease) Generalized seizure Acute kidney injury CKD (chronic kidney disease) stage 3, GFR 30-59 ml/min CHF (congestive heart failure) Anemia Brain tumor (benign) Lower extremity edema Pneumonia Asthma Pulmonary nodule HLD (hyperlipidemia) Seizure Acute hypoxemic respiratory failure due to COVID-19 COVID-19 Kidney stone Depression Gastritis Diabetes Surgical History 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) H/O lithotripsy H/O ureteroscopy H/O cystoscopy S/P ureteral stent placement History of cholecystectomy H/O hernia repair Family History Family History Father CAD (coronary artery disease) Brother Lung cancer Sister Kidney stone Social History Social History Household Members: Children Household Members Other:: daughter Housing: House Are you a primary healthcare economics manager to a significant other at home: No Do you presently have visiting nurse or other home services: Yes (daughter is purchasing engineer, vna 2x week.) Unable to assess alcohol history related to: Unknown Alcohol intake: former Comment: pt sleeping at this time Patient Tobacco Use Status: Never used Tobacco e-Cigarette/Vaping Use: Never Used Advance Directives: Yes Advance Directives on File: Yes Advance Directives Date on File: 12/20/21 Do you have a plan to hurt others: No Plan service: No Current occupational status: unemployed Physical Exam ED Vital Signs: Vital Signs - 24 hr 05/27/24 12:15 05/27/24 13:41 05/27/24 13:49 Temperature 98.8 F 98.3 F Pulse Rate 102 H 73 Respiratory Rate 20 20 18 Blood Pressure 138/63 99/50 L Pulse Oximetry 96 100 Oxygen Delivery Method Room Air Room Air 05/27/24 14:17 05/27/24 14:27 05/27/24 14:32 Temperature 98.9 F 98.9 F Pulse Rate 95 93 Respiratory Rate 17 12 19 Blood Pressure 172/66 H 172/66 H Pulse Oximetry 97 Oxygen Delivery Method Room Air 05/27/24 14:48 Temperature 98.6 F Pulse Rate 95 Respiratory Rate 11 L Blood Pressure 127/41 L Pulse Oximetry Oxygen Delivery Method BMI result Body Mass Index 39.7 Const Other: Appearance: Alert. Oriented X3. Patient very upset, in pain Eyes: Pupils equal, round and reactive to light. ENT: Pharynx normal. Neck: Normal inspection. Neck supple. No lymph nodes noted. No crepitus CVS: Normal heart rate and rhythm. Pulses normal. Normal S1 and S2 Respiratory: No respiratory distress. Breath sounds normal. No Wheezing. No rales Abdomen: Soft and nontender. No rigidity. No distention. Skin: Patient has multiple chronic wounds due to calciphylaxis. However, her right heel on the foot worse than previously seen pictures. Also, the wound of the right side of the hip has a very foul odor and drainage. See pictures below Extremities: No lower extremity edema. No Lacerations. No Rash Neuro: Oriented X 3. No motor deficit. No sensory deficit. Moving all extremities. No slurred speech. CN 2 through 12 grossly intact Psych: Crying Course Course Course Narrative: Patient's labs from this morning show a hemoglobin of 5.7, hematocrit of 18.4. Patient received a blood transfusion 4 days ago. We will repeat labs. I discussed with the patient that she will likely need a blood transfusion. Patient states that she is agreeable to receive blood. Patient states that she is in too much pain and asked me to sign the blood consent. Patient's nurse sinus a witnessed. Patient receiving IV fluids based on ideal weight of 44 kg, patient is obese. Also, patient empirically being treated with IV vancomycin and Zosyn. Patient will be receiving blood as well once we have confirmation of the patient's hemoglobin/hematocrit Medications Administered Discontinued Medications Generic Name Dose Route Start Last Admin Trade Name Freq PRN Reason Stop Dose Admin Hydroxyzine HCl 50 mg 05/27/24 13:25 05/27/24 13:42 Hydroxyzine Hcl 50 Mg Tablet PO 05/27/24 13:26 50 mg ONCE ONE Administration Sodium Chloride 1,500 mls @ 999 mls/hr 05/27/24 12:27 05/27/24 14:18 Ns IVCONT 05/27/24 13:57 Infused .Q1H31M ONE Infusion Vancomycin HCl 2,000 mg in 500 mls @ 250 mls/hr 05/27/24 12:27 05/27/24 13:42 Vancomycin/Ns IV 05/27/24 14:26 250 mls/hr ONCE ONE Administration Piperacillin Sod/Tazobactam 50 mls @ 100 mls/hr 05/27/24 12:27 05/27/24 13:11 Sod 3.375 gm/ Sodium Chloride IV 05/27/24 12:56 Infused ONCE ONE Infusion Morphine Sulfate 4 mg 05/27/24 13:25 05/27/24 13:41 Morphine Sulfate 4 Mg/Ml Cartridge IVPUSH 05/27/24 13:26 4 mg ONCE ONE Administration Protocol Medical Decision Making Medical Decision Making MDM Narrative: My interpretation of labs: Patient has chronic leukocytosis. Patient's hemoglobin today is 5.4, hematocrit 16.5. I discussed with the patient that she will need a blood transfusion. Discussed with the patient risks versus benefits. Patient agreeable to proceed with a blood transfusion. Patient states that she is in too much pain to signed. Patient gave us oral consent, witnessed by her nurse. Patient's creatinine today is 3.82, better than previous. Patient just came from dialysis. On physical exam, patient has several chronic wounds. However, the 1 on her right hip may need debridement. Patient is very tender to pain and also showed the wound has a foul smell. Patient does not have any fever, lactic normal, no episodes of hypotension, sepsis is not suspected. I discussed the patient with DHARA Al from the Medicine team, patient being admitted Differential Diagnosis Differential Diagnoses: The differential diagnosis associated with the presentation includes (Cellulitis, osteomyelitis) Admission/Observation Consideration of admission/observation: Escalation of care including admission/observation considered Consult Healthcare Provider Management of the patient was discussed with: Hospitalist Lab Data MDM Lab Attestation statement: I reviewed the patient's lab results. 05/27/24 12:42 05/27/24 12:41 Labs: Lab Results 05/27/24 05/27/24 05/27/24 Range/Units 12:41 12:42 12:56 WBC 13.9 H (4.8-10.8) X10*3/uL RBC 1.83 L (4.20-5.50) X10*6/uL Hgb 5.4 L* (12.0-16.0) g/dl Hct 16.5 L* (37.0-47.0) % MCV 90.2 (80.0-98.0) fL MCH 29.5 (27.0-33.0) pg MCHC 32.7 (31.0-35.0) g/dl RDW 19.6 H (11.0-16.0) % Plt Count TNP MPV TNP Immature Gran % (Auto) 4.2 H (0.0-0.4) % Neut % (Auto) 76.7 H (45-73) % Lymph % (Auto) 8.3 L (20-40) % [place] % (Auto) 9.1 (2-11) % Eos % (Auto) 1.1 (0-4) % Baso % (Auto) 0.6 (0-2) % Lymph # (Auto) 1.2 (1.2-4.9) X10*3/uL [place] # (Auto) 1.3 H (0.1-1.2) X10*3/uL Eos # (Auto) 0.2 (0.0-0.4) X10*3/uL Baso # (Auto) 0.1 (0.0-0.2) X10*3/uL Abs Immat Gran (auto) 0.59 H (0.00-0.03) X10*3/uL Absolute Neuts (auto) 10.7 H (2.0-8.3) x10*3/uL Absolute Nucleated RBC 0.000 (0.0-0.012) X10*3/uL Nucleated RBC % (auto) 0.0 (0.0-0.2) /100WBC Smear Tech's Comments VERIFIED Sodium 142 (135-145) mmol/L Potassium 3.3 (3.3-5.1) mmol/L Chloride 105 (96-108) mmol/L Carbon Dioxide 19 L (22-29) mmol/L Anion Gap 21 H (12-20) BUN 29 H (9-16) mg/dL Creatinine 3.82 H (0.5-1.4) mg/dL Estim Creat Clear Calc 15.6 Estimated GFR 12 Random Glucose 167 H (60-115) mg/dL Lactic Acid 1.0 (0.5-2.0) mmol/L Calcium 7.7 L (8.4-10.2) mg/dL Blood Type O Positive Antibody Screen NEGATIVE Crossmatch See Detail Independent Interpretation I performed an independent interpretation of an: Plain X-Ray and CT Scan Radiology Impression Discussion of test interpretation with radiology: I have reviewed the radiologist's reading. Radiologist Impression: There is normal alignment of the right hip joint. There is no fracture, dislocation, or suspicious bone lesion. There are no regions of focal osteopenia, or permeative bony type changes to suggest osteomyelitis. The proximal femur is normal in appearance. The imaged pelvis is normal in appearance. There is sclerosis of the iliac aspect of the right SI joint, partially imaged. This is likely degenerative. No evidence of septic arthropathy. No significant hip joint effusion is noted. Soft tissues demonstrate extensive vascular calcification of the arterial vessels. No abnormal hematoma or focal abnormal fluid collection. Normal-appearing bladder, uterus, adnexal structures. No pelvic lymphadenopathy or free fluid. There is mild thickening of the sigmoid colon and rectum, suggesting possible colitis. Correlate clinically. Subcutaneous stranding and skin thickening of the right lateral buttock and hip region, extending along the posterior upper leg. No discrete fluid collection or abscess. CT/CT hip RT wo IV con IMPRESSION: 1. No acute bony findings. No CT evidence of osteomyelitis or septic arthropathy. 2. Incidentally noted is diffuse wall thickening of the rectosigmoid, suggesting colitis. This is new from the prior CT. Correlate for signs and symptoms. 3. Extensive diffuse vascular atherosclerosis. 4. Subcutaneous stranding and skin thickening of the right lateral buttock and hip region, extending along the posterior upper leg. No discrete fluid collection or abscess. Findings suggest cellulitis. AP and lateral views of the right foot are submitted. The examination is limited by difficulty in patient positioning. The bones are osteopenic. There is a soft tissue ulcer over the calcaneus. No lytic lesion is identified. No fracture or dislocation is seen, although evaluation of the toes is limited by flexion on all images. The joint spaces are not well evaluated. There are vascular calcifications. XR/XR foot RT 2V IMPRESSION: Limited examination as described. Soft tissue ulceration of the calcaneus. No plain film evidence of osteomyelitis. If this is a clinical concern, three-phase bone scan or MRI could be performed. Independent Historian Clinical information obtained from an independent historian. History obtained from or confirmed by: EMS Critical Care Time Critical Care Time Critical Care Time: Yes Total Critical Care Time: 60 Attestation: I have personally provided critical care time. Time includes review of lab data, radiology results, discussion with consultants, and monitoring for potential decompensation. Intervention performed as documented. Discharge Plan Discharge Clinical Impression: Cellulitis, Anemia, Calciphylaxis Patient Disposition: Admitted As Inpatient Prescriptions: No Action (DME) FreeStyle Lite Strips Strip MISCELLANEOUS QID (DME) blood-glucose meter [FreeStyle [place] Lite] Kit MISCELLANEOUS BID (DME) lancets [FreeStyle Lancets] 28 gauge misc 1 gauge topical BID omeprazole 40 mg capsule,delayed release(DR/EC) 40 mg PO BID@0630,1630 atorvastatin 80 mg tablet 80 mg PO DAILY amlodipine 10 mg tablet 10 mg PO DAILY phenytoin sodium extended [Dilantin Extended] 100 mg Capsule 100 mg PO TID Qty: 90 2RF ferrous gluconate 324 mg (38 mg iron) tablet 324 mg PO DAILY cholecalciferol (vitamin D3) 50 mcg (2,000 unit) Tablet 50 mcg PO DAILY valproic acid 250 mg capsule 1,000 mg PO BID acetaminophen 650 mg tablet extended release 650 mg PO Q8H PRN (Reason: mild pain) losartan 100 mg tablet 100 mg PO BID diclofenac sodium 1 % gel 2 g topical BEDTIME PRN (Reason: Pain) Rx Instructions: APPLY 2 GRAMS TOPICALLY TO FEET AT BEDTIME NEEDED folic acid 1 mg Tablet 1 mg PO DAILY Qty: 90 0RF furosemide 40 mg tablet 80 mg PO BID lorazepam 0.5 mg tablet 0.5 mg PO DAILY PRN (Reason: anxiety) gabapentin 300 mg capsule 300 mg PO MOWEFR@1800 Rx Instructions: after dialysis sertraline 50 mg tablet 100 mg PO DAILY gabapentin 100 mg capsule 200 mg PO DAILY levetiracetam 500 mg tablet 500 mg PO MOWEFR@1800 Rx Instructions: give after dialysis Retacrit 10,000 unit/mL Solution 10,000 unit subcut MoWeFr@1645 Qty: 10 0RF insulin glargine [Lantus U-100 Insulin] 100 unit/mL Solution 10 unit subcut BEDTIME Qty: 10 0RF oxycodone 5 mg Tablet 5 mg PO Q4H PRN (Reason: Pain, Severe (Pain Scale 7-10)) Qty: 30 0RF Rx Instructions: Partial Fill upon patient request. sodium thiosulfate 12.5 gram/100mL (125 mg/mL) solution 13 g IV 3XW Qty: 100 0RF Rx Instructions: dialysis days vancomycin 500 mg recon soln 500 mg IV 3XW (DME) blood pressure test kit-large Kit See Rx Instructions .ROUTE DAILY Qty: 1 Rx Instructions: As directed (DME) nebulizers Misc See Rx Instructions .Route Rx Instructions: As directed trazodone 50 mg tablet 100 mg PO BEDTIME PRN (Reason: Sleep) (DME) lancets [TRUEplus Lancets] 33 gauge misc See Rx Instructions .ROUTE BID Qty: 100 Rx Instructions: As directed Print Language: Eritrean
[2024-05-27 12:53] LABS: Basophils Absolute Auto 0.1 X10*3/uL (0.0-0.2); Basophils Percent Auto 0.6 % (0-2); Eosinophils Absolute Auto 0.2 X10*3/uL (0.0-0.4); Eosinophils Percent Auto 1.1 % (0-4); Imm Gran Abs Auto 0.59 X10*3/uL (0.00-0.03); Imm Gran Pct Auto 4.2 % (0.0-0.4); Lymphocytes Absolute Auto 1.2 X10*3/uL (1.2-4.9); Lymphocytes Percent Auto 8.3 % (20-40); MANUAL DIFF FLAG SCAN; Mean Corpuscular HGB Conc 32.7 g/dl (31.0-35.0); Mean Corpuscular Hemoglobin 29.5 pg (27.0-33.0); Mean Corpuscular Volume 90.2 fL (80.0-98.0); Monocytes Absolute Auto 1.3 X10*3/uL (0.1-1.2); Monocytes Percent Auto 9.1 % (2-11); Neutrophils Absolute Auto 10.7 x10*3/uL (2.0-8.3); Neutrophils Percent Auto 76.7 % (45-73); PLT CLUMP 1; Red Blood Count 1.83 X10*6/uL (4.20-5.50); Red Cell Distribution Width 19.6 % (11.0-16.0); SCAN SMEAR FLAG 1
[2024-05-27 12:55] LABS: Hemoglobin 5.4 g/dl (12.0-16.0)
[2024-05-27 12:56] LABS: Hematocrit 16.5 % (37.0-47.0); White Blood Count 13.9 X10*3/uL (4.8-10.8)
[2024-05-27 13:03] LABS: Anion Gap 21 (12-20); Blood Urea Nitrogen 29 mg/dL (9-16); Calcium 7.7 mg/dL (8.4-10.2); Carbon Dioxide 19 mmol/L (22-29); Chloride 105 mmol/L (96-108); Creatinine Clr Calc Pharmacy 15.6; Estimated Glomerular Filt Rate 12; Glucose Random 167 mg/dL (60-115); Potassium 3.3 mmol/L (3.3-5.1); Sodium 142 mmol/L (135-145)
[2024-05-27 13:17] LABS: SLIDE REVIEW VERIFIED
[2024-05-27] MEDS: Morphine Sulfate 4 MG/ML CARTRIDGE IVPUSH (13:41)
[2024-05-27] MEDS: hydrOXYzine HCL 50 MG TABLET PO (13:42)
[2024-05-27] MEDS: vancomycin/NS 2,000 MG/500 ML PLAST..BAG 250 MG IV (13:42)
[2024-05-27] MEDS: oxyCODONE HCl Immed Release 5 MG TABLET PO (15:27)
--- NOTE | 2024-05-27 16:00 | PM.IMHP ---
History of Present Illness Date of Service: 05/27/24 Chief Complaint: Low hemoglobin and hematocrit 68-year-old woman presenting [facility] due to low hemoglobin and hematocrit, lab work done in the morning. Apparently there has been no obvious blood loss but patient does have a history of end-stage renal disease on dialysis. 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 Patient has been on vancomycin on dialysis days and plan was for 6 weeks total. Hemoglobin 5.4, hematocrit 16.5, chronically elevated white blood cell count, stable vital signs. In the ER, patient received a dose of vancomycin, Zosyn, Atarax, oxycodone, more and IV fluids. Review of Systems Review of Systems: Denies any recent fever chills or decrease in appetite respiratory denies any shortness of breath or cough cardiovascular denied gastrointestinal denies any dysphagia abdominal pain nausea vomiting or diarrhea genitourinary denies any dysuria frequency or hematuria musculoskeletal denies any joint pain or swelling neuropsych denies any weakness or seizures all other systems reviewed are negative [facility] Medical History Eschar of heel ESRD (end stage renal disease) Generalized seizure Acute kidney injury CKD (chronic kidney disease) stage 3, GFR 30-59 ml/min CHF (congestive heart failure) Anemia Brain tumor (benign) Lower extremity edema Pneumonia Asthma Pulmonary nodule HLD (hyperlipidemia) Seizure Acute hypoxemic respiratory failure due to COVID-19 COVID-19 Kidney stone Depression Gastritis Diabetes Family History Father CAD (coronary artery disease) Brother Lung cancer Sister Kidney stone Surgical History 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) H/O lithotripsy H/O ureteroscopy H/O cystoscopy S/P ureteral stent placement History of cholecystectomy H/O hernia repair Social History Household Members: Other Household Members Other:: from [facility] at this time Housing: House Are you a primary career and guidance counselor to a significant other at home: No Unable to assess alcohol history related to: Unknown Alcohol intake: former Comment: pt sleeping at this time Patient Tobacco Use Status: Never used Tobacco e-Cigarette/Vaping Use: Never Used Use of substances other than those prescribed or required for medical reasons: No Currently Displaying Signs/Symptoms of Drug Intoxication Withdrawal: No Have you been hit, kicked, punched, or otherwise hurt by someone within the past year? If so, by whom?: No Do you feel safe in your current relationship?: No Current Relationship Is there a partner from a previous relationship who is making you feel unsafe now?: No Are you made to feel afraid or neglected: No Advance Directives: Yes Advance Directives on File: Yes Advance Directives Date on File: 12/20/21 Do you have a plan to hurt others: No Plan Recently lost weight without trying: No How much weight loss: Unsure Eating poorly because of decreased appetite: No Nutrition screen score: 2 Nutrition Risks: No Nutritional Risk Patient : No : No Poor oral hygiene: No service: No Current occupational status: unemployed Meds Allergies Allergy/AdvReac Type Severity Reaction Status Date / Time Egg Derived Allergy Unknown Verified 05/27/24 12:18 Active Medications: Current Medications Acetaminophen (Acetaminophen 325 Mg Tablet) 650 mg PO Q6H PRN PRN Reason: Pain, Mild 1-3,fever,headache Calcium Carbonate (Calcium Carbonate 750 Mg Tab.Chew) 750 mg PO Q4H PRN PRN Reason: Heartburn Vancomycin HCl 500 mg/ Sodium (Chloride) 110 mls @ 110 mls/hr IV ONCE ONE Stop: 05/27/24 16:59 Magnesium Hydroxide (Milk Of Magnesia 30 Ml Oral.Susp) 30 ml PO DAILY PRN PRN Reason: Constipation Melatonin (Melatonin 3 Mg Tablet) 6 mg PO BEDTIME PRN PRN Reason: Insomnia Ondansetron HCl (Ondansetron Hcl 4 Mg/2 Ml Vial) 4 mg IVPUSH Q8H PRN PRN Reason: Nausea and Vomiting Pharmacy Consult (Consult Rx Vancomycin Dosing) 1 each MISCELLANE DAILY PRN PRN Reason: Consult order Sodium Chloride (0.9 % Sodium Chloride Flush 3 Ml Syringe) 3 ml IVFLUSH QSHIFT [facility] Home Medications ?Medication ?Instructions ?Recorded ?Confirmed ?Last Taken ?Type blood sugar diagnostic (Jamie 03/28/20 09/09/22 Unknown History Lite Strips) blood-glucose meter (FreeStyle 03/28/20 09/09/22 Unknown History [place]ion Lite kit) lancets 28 gauge (FreeStyle 03/28/20 09/09/22 Unknown History Lancets) omeprazole 40 mg capsule,delayed 40 mg PO BID@0630,1630 10/02/21 05/27/24 03/21/24 History release blood pressure test kit-large #1 ea 10/12/21 09/09/22 Unknown History atorvastatin 80 mg tablet 80 mg PO DAILY 12/20/21 05/27/24 03/21/24 History nebulizers 01/20/22 09/09/22 Unknown History amlodipine 10 mg tablet 10 mg PO DAILY 05/29/22 05/27/24 03/21/24 History lancets 33 gauge (TRUEplus Lancets) #100 ea 06/07/22 09/09/22 Unknown History ferrous gluconate 324 mg (38 mg 324 mg PO DAILY 11/24/22 05/27/24 03/21/24 History iron) tablet acetaminophen 650 mg 650 mg PO Q8H PRN mild pain 03/22/24 05/27/24 Unknown History tablet,extended release diclofenac sodium 1 % topical gel 2 g topical BEDTIME PRN Pain 03/22/24 05/27/24 03/21/24 History losartan 100 mg tablet 100 mg PO BID 03/22/24 05/27/24 03/21/24 History valproic acid 250 mg capsule 500 mg PO BID 03/22/24 05/27/24 03/21/24 History furosemide 40 mg tablet 80 mg PO BID 05/04/24 05/27/24 Unknown History gabapentin 100 mg capsule 200 mg PO DAILY 05/04/24 05/27/24 Unknown History gabapentin 300 mg capsule 300 mg PO MOWEFR@1800 05/04/24 05/27/24 Unknown History levetiracetam 500 mg tablet 500 mg PO MOWEFR@1800 05/04/24 05/27/24 Unknown History lorazepam 0.5 mg tablet 0.5 mg PO DAILY PRN anxiety 05/04/24 05/27/24 Unknown History sertraline 50 mg tablet 50 mg PO DAILY 05/04/24 05/27/24 Unknown History cholecalciferol (vitamin D3) 25 50 mcg PO DAILY 05/27/24 05/27/24 Unknown History mcg (1,000 unit) tablet (Vitamin D3) dextrose 40 % oral gel (Glucose 10 g PO Q15M PRN low blood sugar 05/27/24 05/27/24 Unknown History Gel) epoetin gabino-epbx 10,000 unit/mL 10,000 unit subcut MOWEFR@1645 05/27/24 05/27/24 05/20/24 History injection solution (Retacrit) glucagon 1 mg solution for 1 mg subcut Q20M PRN low blood 05/27/24 05/27/24 Unknown History injection (Glucagon Emergency Kit) sugar trazodone 50 mg tablet 100 mg PO BEDTIME 05/27/24 05/27/24 Unknown History vancomycin 500 mg intravenous 500 mg PO MOWEFR@164405/27/24 05/27/24 Unknown History solution Physical Exam Vital Signs and Narrative: Vital Signs: Last Vital Signs Temp 98.6 F 05/27/24 14:48 Pulse 95 05/27/24 14:48 Resp 11 L 05/27/24 14:48 BP 127/41 L 05/27/24 14:48 Pulse Ox 97 05/27/24 14:27 O2 Del Method Room Air 05/27/24 14:27 BMI result Body Mass Index 39.7 Appearing in no acute distress head is normocephalic atraumatic eyes pupils are PERRLA sclera is anicteric mouth throat mucous membranes are intact and moist neck is supple no lymphadenopathy, no JVD noted lung sounds are clear to auscultation heart regular rate rhythm, clear S1, S2 positive bowel sounds, abdomen is soft, nontender neuro patient is alert x3, no focal deficits Chronic skin wounds Results Labs 05/28/24 07:36 05/28/24 07:36 Labs: Laboratory Results - last 24 hr 05/27/24 05/27/24 05/27/24 12:41 12:42 12:56 MCV 90.2 MCH 29.5 MCHC 32.7 RDW 19.6 H Plt Count TNP MPV TNP Immature Gran % (Auto) 4.2 H Neut % (Auto) 76.7 H Lymph % (Auto) 8.3 L [place] % (Auto) 9.1 Eos % (Auto) 1.1 Baso % (Auto) 0.6 Lymph # (Auto) 1.2 [place] # (Auto) 1.3 H Eos # (Auto) 0.2 Baso # (Auto) 0.1 Abs Immat Gran (auto) 0.59 H Absolute Neuts (auto) 10.7 H Absolute Nucleated RBC 0.000 Nucleated RBC % (auto) 0.0 Smear Tech's Comments VERIFIED Anion Gap 21 H Estim Creat Clear Calc 15.6 Estimated GFR 12 Random Glucose 167 H Lactic Acid 1.0 Calcium 7.7 L Blood Type O Positive Antibody Screen NEGATIVE Crossmatch See Detail Imaging Radiologist's Impressions: Impressions Foot X-Ray 05/27/24 12:27 IMPRESSION: Limited examination as described. Soft tissue ulceration of the calcaneus. No plain film evidence of osteomyelitis. If this is a clinical concern, three-phase bone scan or MRI could be performed. Electronically signed by: James Ruiz MD 05/27/2024 01:[address] 05/27/24 13:27 IMPRESSION: 1. No acute bony findings. No CT evidence of osteomyelitis or septic arthropathy. 2. Incidentally noted is diffuse wall thickening of the rectosigmoid, suggesting colitis. This is new from the prior CT. Correlate for signs and symptoms. 3. Extensive diffuse vascular atherosclerosis. 4. Subcutaneous stranding and skin thickening of the right lateral buttock and hip region, extending along the posterior upper leg. No discrete fluid collection or abscess. Findings suggest cellulitis. Electronically signed by: Rupesh Araya MD 05/27/2024 02:01 PM EDT Assessment and Plan (1) Anemia: Qualifiers: Anemia type: due to chronic kidney disease Chronic kidney disease stage: stage 5 (GFR < 15), not on chronic dialysis Qualified Code(s): N18.5 - Chronic kidney disease, stage 5; D63.1 - Anemia in chronic kidney disease Status: Acute Plan 68-year-old woman admitted with acute on chronic anemia with low H&H requiring blood transfusion Acute on chronic anemia. Unspecified No obvious blood loss, history of end-stage renal disease on dialysis H&H 5.4/16.5 2 units of packed red blood cells ordered in the ER Check H&H post transfusion and in the am iron 60 GI consultation Stool occult 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 General surgery consultation> sharp excisional debridement to right heel ulcer, blunt debridement of the left foot amputation site heel wound exposed, long-term goal is likely BKA due to exposed calcaneus Wound nurse consult Diabetes mellitus type 2 Sliding scale, ADA ESRD on HD M/W/F Nephrology consultation Seizure disorder Continue levetiracetam, valproate, and phenytoin Seizure precaution HTN Continue and losartan Mood disorder Continue sertraline, lorazepam Hyperlipidemia Continue. DVT prophylaxis with pneumatic compression boots Full code Quality Stroke Does the patient have a stroke diagnosis?: No VTE Prior VTE?: No VTE Risk Level:: Medical - moderate - high VTE Device Contraindication: N/A - Device Ordered VTE Drug Contraindication: Treatment Not Indicated
--- OUTSIDE RECORDS SUMMARY | 2024-05-27 16:36 | XMS_ITS | Encounter Summary ---
Author Organization [employer] Address [address] [place] [address] 7 [place] [address] Care Team Providers Care Lehr Operator Name Role Phone Jennifer Rico MD Primary Care Provide r Lucrecia Teixeira MD Primary Care Provider [phone] Reason for Visit * Reason Onset Date Comments Durable Medical Equipment 07/01/2022 Encounter Details Date Type Department Care Team ([facility] st Contact Info) Description 07/01/2022 Telephone [facility] [address] [place], [place] [phone] Jennifer Rico MD [address] [place], [place] [phone] Durable Medical Equipment Social History Tobacco Use [...] 8:04 AM EDT Tc from Sam at [facility] requesting a new script for compression socks , due to patients lower leg edema. documented in this encounter Plan of Treatment Upcoming Encounters Date Type Department Care Team (Late st Contact Info) Description 07/15/2024 2:15 PM EDT Office Visit [facility] [address] [place] [address] Lucrecia Teixeira MD [address] [place] [address] documented as of this encounter Visit Diagnoses Not on filedocumented in this encounter Care Teams Lehr Operator Relationship Specialty Start Date End Date Jennifer Rico MD [address] [place] [phone] PCP - General Family Medicine 12/05/18 07/11/22 Lucrecia Teixeira MD [address] [place] [id number] PCP - General Family Medicine 07/12/22 [facility] 04/06/24 documented as of this encounter
--- OUTSIDE RECORDS SUMMARY | 2024-05-27 16:36 | XMS_ITS | Encounter Summary ---
Author Organization [employer] Address [address] [facility] 7 [place] [address] Care Team Providers Care Wood Caulker Name Role Phone Lucrecia Teixeira MD Primary Care Provider [phone] Reason for Visit * Reason Comments Med Refill Encounter Details Date Type Department Care Team ([facility] Contact Info) Description 02/02/2024 Refill [facility] [address] [place] [address] Lucrecia Teixeira MD [address] [place] [address] Social History Tobacco Use Types Packs/Day Years [...] 2:15 PM EDT Office Visit [facility] [address] [place] [address] Lucrecia Teixeira MD [address] [place] [address] documented as of this encounter Visit Diagnoses Not on filedocumented in this encounter Additional Health Concerns Assessment Noted Time PHQ-9 Depression Total Score: 0 01/21/20 23 3:26 PM EST documented as of this encounter Care Teams Wood Caulker Relationship Specialty Start Date End Date Lucrecia Teixeira MD [address] [place] [id number] PCP - General Family Medicine 07/12/22 Юлия A 04/06/24 documented as of this encounter
--- OUTSIDE RECORDS SUMMARY | 2024-05-27 16:36 | XMS_ITS | Encounter Summary ---
Author Organization [employer] Address [address] [facility] 7t [place] [address] Care Team Providers Care Sap Business Analyst Name Role Phone Lucrecia Teixeira MD Primary Care Provider [phone] Encounter Details Date Type Department Care Team ([facility] st Contact Info) Description 02/16/2024 Orders Only [facility] [address] [place], [place] [phone] Lucrecia Teixeira MD [address] [place] [address] Social History Tobacco Use Types Packs/Day Years [...] Description 07/15/2024 2:15 PM EDT Office Visit [facility] [address] [place] [phone] Lucrecia Teixeira MD [address] [place] [address] documented as of this encounter Visit Diagnoses Not on filedocumented in this encounter Additional Health Concerns Assessment Noted Time PHQ-9 Depression Total Score: 0 01/21/20 23 3:26 PM EST documented as of this encounter Care Teams Sap Business Analyst Relationship Specialty Start Date End Date Lucrecia Teixeira MD [address] [place] [phone] PCP - General Family Medicine 07/12/22 Юлия HENDRICKS 04/06/24 documented as of this encounter
--- OUTSIDE RECORDS SUMMARY | 2024-05-27 16:36 | XMS_ITS | Encounter Summary ---
Author Organization [employer] Address [address] [facility] 7 [place] [address] Care Team Providers Care Supervisory Clerk Name Role Phone Lucrecia Teixeira MD Primary Care Provider [phone] Reason for Visit * Reason Comments Med Refill Encounter Details Date Type Department Care Team ([facility] Contact Info) Description 02/19/2024 Refill [facility] [address] [place] [address] Lucrecia Teixeira MD [address] [place] [address] Social History Tobacco Use Types Packs/Day Years [...] Description 07/15/2024 2:15 PM EDT Office Visit [facility] [address] [place] [address] Lucrecia Teixeira MD [address] [place] [address] documented as of this encounter Visit Diagnoses Not on filedocumented in this encounter Additional Health Concerns Assessment Noted Time PHQ-9 Depression Total Score: 0 01/21/20 23 3:26 PM EST documented as of this encounter Care Teams Supervisory Clerk Relationship Specialty Start Date End Date Lucrecia Teixeira MD [address] [place] [phone] PCP - General Family Medicine 07/12/22 Юлия A 04/06/24 documented as of this encounter
--- OUTSIDE RECORDS SUMMARY | 2024-05-27 16:36 | XMS_ITS | Encounter Summary ---
Author Organization [employer] Address [address] [place] [address] 7 [place] [address] Care Team Providers Care Contract Specialist Name Role Phone Lucrecia Teixeira MD Primary Care Provider [phone] Reason for Visit * Reason Onset Date Comments Med Refill 03/06/2024 Encounter Details Date Type Department Care Team ([facility] st Contact Info) Description 03/06/2024 Refill [facility] [address] [place] [address] Lucrecia Teixeira MD [address] [place] [address] Essential (primary) hypertension Social History Tobacco Use [...] the past 12 months, has t he [employer] gas, oil or water company threatened to [...] 07/15/2024 2:15 PM EDT Office Visit [facility] [address] [place] [address] Lucrecia Teixeira MD [address] [place] [address] documented as of this encounter Visit Diagnoses Diagnosis Essential (primary) hypertension Unspecified essential hypertension documented in this encounter Additional Health Concerns Assessment Noted Time PHQ-9 Depression Total Score: 0 01/21/20 23 3:26 PM EST documented as of this encounter Care Teams Contract Specialist Relationship Specialty Start Date End Date Lucrecia Teixeira MD [address] [place], [place] [phone] PCP - General Family Medicine 07[facility]12[facility] documented as of this encounter
--- OUTSIDE RECORDS SUMMARY | 2024-05-27 16:36 | XMS_ITS | Encounter Summary ---
Author Organization [employer] Address [address] [facility] [address] [place] [address] Care Team Providers Care Supervisor Slashing Department Name Role Phone Lucrecia Teixeira MD Primary Care Provider [phone] Reason for Visit * Reason Comments Med Refill Encounter Details Date Type Department Care Team ([facility] Contact Info) Description 02/15/2024 Refill [facility] [address] [place] [address] Lucrecia Teixeira MD [address] [place] [address] Social History Tobacco Use Types Packs/Day Years [...] Description 07/15/2024 2:15 PM EDT Office Visit [facility] [address] [place] [address] Lucrecia Teixeira MD [address] [place] [address] documented as of this encounter Visit Diagnoses Not on filedocumented in this encounter Additional Health Concerns Assessment Noted Time PHQ-9 Depression Total Score: 0 01/21/20 23 3:26 PM EST documented as of this encounter Care Teams Supervisor Slashing Department Relationship Specialty Start Date End Date Lucrecia Teixeira MD [address] [place] [phone] PCP - General Family Medicine 07/12/22 Юлия A 04/06/24 documented as of this encounter
--- OUTSIDE RECORDS SUMMARY | 2024-05-27 16:36 | XMS_ITS | Clinical Summary ---
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 Name Role Phone Lucrecia Teixeira MD Primary Care Provider [phone] Allergies Active Allergy Reactions Criticality Noted Date Comments Egg-Derived Products Unknown 07/09/2019 Other reaction(s): Vomiting Levetiracetam 12/11/2023 Medications Proventil HFA 108 (90 Base) MCG/ACT inhaler INHALE 2 PUFFS BY MOUTH EVERY 4 TO 6 HOURS NEEDED 11/26/19 22 Active Spacer/Aero-Hold ing Chambers (OptiChamber Sonya) misc USE WITH INHALER EVERY 6 HOURS NEEDED 12/28/19 22 Active Blood Pressure Monitoring (Omron 3 Series BP Monitor) device USE TO CHECK BLOOD PRESSURE DAILY DIRECTED 09/24/19 22 Active Breo Ellipta 100-25 MCG/ACT aerosol powder INHALE 1 PUFF EVERY DAY AT THE SAME TIME 01/21/20 22 Active Sure Comfort Pen [place]gart 31G X 5 MM miscIndications: Type 2 diabetes mellitus with hyperglycemia, with long-term current use of insulin (CMS/HCC) USE FIVE TIMES DAILY BEFORE MEALS DIRECTED 150 each 11 04/08/19 23 Active liver oil-zinc oxide (Desitin) 40 % ointmentIndicati ons:Pressure injury of sacral region, stage 1 Apply topically if needed for irritation. 56 g 12/10/19 23 Active Blood Glucose Monitoring Suppl (ONE TOUCH ULTRA 2) w/Device kitIndications:T ype 2 diabetes mellitus with peripheral angiopathy (CMS/HCC) [...] Aspirin Adult Low Strength 81 MG EC tabletIndication s:Transient cerebral ischemic attack, unspecified TAKE 1 TABLET BY MOUTH EVERY MORNING. 90 tablet 3 06/19/19 24 Active ferrous gluconate (Fergon) 324 (38 Fe) MG tabletIndication s:Anemia due to stage 4 chronic kidney disease [...] 24 025 Active OneTouch Ultra Test test stripIndications :Type 2 diabetes mellitus with peripheral angiopathy (CMS/HCC) USE TO TEST BLOOD SUGAR THREE TIMES DAILY 100 strip 11 11/06/19 24 Active valproic acid (Depakene) 250 MG capsule TAKE 4 CAPSULES BY MOUTH TWICE A DAY 11/03/19 24 Active amLODIPine (Norvasc) 10 MG tabletIndication s:Essential (primary) hypertension Take 1 tablet (10 mg) by mouth in the morning. 90 tablet 3 12/13/19 24 Active lidocaine (Lidoderm) 5 % patch Apply 1 patch topically Once per day. Remove & discard patch within 12 hours or as directed by MD. 30 patch 6 12/13/19 24 Active losartan (Cozaar) 100 MG tabletIndication s:Essential hypertension,Car diorenal syndrome with renal failure Take 1 tablet (100 mg) by mouth 2 times daily. 180 tablet 3 12/13/19 24 025 Active atorvastatin (Lipitor) 80 MG tabletIndication s:Transient cerebral ischemic attack, unspecified TAKE 1 TABLET BY MOUTH EVERY DAY 90 tablet 4 01/03/20 24 Active OneTouch UltraSoft 2 Lancets miscIndications: Type 2 diabetes mellitus with peripheral angiopathy (CMS/HCC) USE TO TEST BLOOD SUGAR THREE TIMES DAILY 100 each 11 02/06/20 24 Active omeprazole (PriLOSEC) [address] capsuleIndicatio ns:Gastroesophag eal reflux disease, unspecified whether esophagitis present TAKE [...] 90 tablet 1 10/30/19 24 025 Discontinued Active Problems Problem Noted Date Diagnosed Date [...] acid and phenytoin F/u with neurology at [facility] in 4 weeks No seizure activity since she was discharged from the hospital Assessment & Plan (11/16/2023 2:40 PM EDT): C/w keppra, Valproic acid and phenytoin Type 2 diabetes mellitus with peripheral angiopa thy 07/19/2023 Assessment & Plan (04/25/2024 10:07 AM EDT): Current A1c: 5.3 BMP: Basaglar 10 units nightly Followup with endocrinology at [facility] Microalbumin: Lab Results Component Value Date MICROALBUR [...] amputation 03/2024 Followed by general surgery at [facility] Assessment & Plan (04/25/2023 6:29 AM EDT): [...] 6:47 AM EST): Letter given to increase ANALYTICAL DATA SCIENTIST hours due to change in patient's health [...] - Spoke with patient via interpretation with [place] interpreters at 7pm, she had just laid down in bed and her daughter did not feel it best to wake her. 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 Alejoter told them to take 40mg, two tablets BID for diuretic, thus I renewed her Lasix at this dose, namely 80mg BID. Followup with me for repeat Cr and electrolytes in 1-2 weeks Assessment & Plan (11/04/2022 8:22 AM EDT): Stage 3/4 with Cr worsening over past 6-9 months unfortunately labs from speech therapist technician are not available, I called them and left a message about sending the labs and discussing resumption of Losartan For the meantime, it is reasonable to continue very gentle diuresis with Lasix 20mg BID, Amlodipine for BP control To take all medications in [place], seek emergency medical attention for worsening swelling [...] to general surgery about this Referral placed [id number] renal failure 01/31/2022 04/25/2024 Assessment & Plan [...] Generic External Data 04/28/2024 Refill [facility] [address] [place] [address] Lucrecia Teixeira MD 04/24/[address] [facility] [address] [place] [address] Lucrecia Teixeira MD Prior Authorization ([employer] request: losartan (Cozaar) 100 MG tablet) 04/23/2024 9:15 AM EDT Office Visit 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 associated with type 2 diabetes mellitus ([facility]/HCC); Seizure disorder (CMS/[facility]); Sacral decubitus ulcer, stage II (CMS/HCC); ESRD (end stage renal disease) ([facility]); Anemia in chronic kidney disease, on chronic dialysis ([facility]); Uremic peripheral polyneuropathy ([facility]); Insomnia due to medical condition; Essential hypertension; Diabetic ulcer of toe of right foot associated with type 2 diabetes mellitus, with fat layer exposed (CMS/HCC); Type 2 diabetes mellitus with chronic kidney disease on chronic dialysis, with long-term current use of insulin ([facility]); Anxiety 04/23/2024 Travel 04/17/2024 Refill [facility] [address] [place] [address] Lucrecia Teixeira MD Essential hypertension; Cardiorenal syndrome with renal failure 04/16/2024 Telephone [facility] [address] [place], [place] [phone] Lucrecia Teixeira MD FYI 04/12/2024 Telephone [facility] [address] [place] [phone] Lucrecia Teixeira MD FYI 04/08/2024 Orders Only GENERIC EXTERNAL DATA DEPARTMENT Provider, Generic External Data 03/22/2024 Orders Only [facility] External Provider, [facility] 03/06/2024 Telephone [facility] [address] [place] [address] Lucrecia Teixeira MD Med Refill 03/06/2024 Refill [facility] [address] [place] [address] Lucrecia Teixeira MD Essential (primary) hypertension from [...] 2:15 PM EDT Office Visit [facility] [address] [place] [address] Lucrecia Teixeira MD [address] [place] [address] Health Maintenance Due Date Last Done Comments [...] 09/28/2022 09/28/2021, 02/25/2020 Eye Exam 07/23/2023 07/22/2022, 060 10/2022, 07/22/2022, Additional history exists COVID-19 Vaccine ( season) 2023 Influenza Vaccine (#1) 2023 Mammogram 12/17/2023 12/16/2022, 1104/2022, 08/09/2022, Additional history exists Depression Screening 01/21/2024 [...] Name Priority Date/Time Associated Diagnosis Comments XR CHEST 1 VIEW Routine 05/23/2024 12:37 PM EDT SARS COV2/INFLUENZA A/B AND RSV RNA QL NAAT Routine 05/23/2024 12:29 PM EDT XR TIBIA FIBULA 2 VIEWS LEFT Routine 05/23/2024 10:45 AM EDT GRAM STAIN Routine 05/23/2024 10:34 AM EDT SED RATE BY MODIFIED WESTERGREN Routine 05/23/2024 10:11 AM EDT C-REACTIVE PROTEIN Routine 05/23/2024 10 :11 AM EDT LACTIC ACID Routine 05/23/2024 10:11 AM EDT BLOOD CULTURE (SECOND) Routine 10:11 AM EDT TYPE AND SCREEN Routine 05/23/2024 10:07 AM EDT XR FOOT 3+ VIEWS BILATERAL Routine 05/23/2024 10:00 AM EDT XR HIP BILATERAL WITH PELVIS 1 VIEW Routine 05/23/2024 10:00 AM EDT HOLD LAVENDER - POSSIBLE HEMATOLOGY Routine 05/23/2024 9:42 AM EDT BLOOD CULTURE (FIRST) Routine 05/23/2024 9:40 AM EDT HOLD LT BLUE - POSSIBLE [...] Relevant to Health Maintenance Results * XR Chest 1 View (05/23/2024 12:37 PM EDT) Only the most recent of3 resultswithin the time period is included. Anatomical Region Laterality Modality Chest Radiographic Anya ging 05/23/2024 12:3 7 PM EDT Narrative 05/23/2024 1:01 PM EDT ? [facility] ?[address] ?[place] [address] ?XRay Report ? Signed ? Patient: Perera Franklin,Lori ?MR#: [id number] ?? [id number] ? : 1955 ?Acct:[id number] ? Age/Sex: 68 / F ?ADM Date: 05/23/24 ? Loc: HO.ED ? Attending Dr: ? Ordering Physician: Yancy Jacobson ?? Date of Service: 05/23/24 ?? Procedure(s): XR chest 1V ?? Accession Number(s): [id number] ? cc: Yancy Jacobson; Lucrecia Teixeira ? EXAMINATION: ?? XR CHEST ? CLINICAL INFORMATION: ?? fever, weakness ? COMPARISON: ?? None available. ? TECHNIQUE: ?? Frontal view of the chest was obtained. ? FINDINGS: ?? Right-sided tunneled dialysis catheter in place with tip in the right ?? atrium. ?? There is cardiomegaly. Mediastinal and hilar contours otherwise normal. ? Lungs demonstrate low lung volumes. Right perihilar haziness. There is ?? diffuse small airway thickening throughout both lungs with mild ?? increase of the background interstitial markings. ?? No pneumothorax or effusion. ? No focal osseous or soft tissue abnormality. ? XR/XR chest 1V ?? IMPRESSION: ?? 1. Dialysis catheter in good position. ?? 2. Cardiomegaly. ?? 3. Right perihilar haziness with diffuse small airway thickening ?? throughout both lungs. ? Electronically signed by: ??Rupesh Araya MD ??05/23/2024 12:58 PM EDT RP ? Dictated By: ?Rupesh Araya MD ? Signed By: ?<Electronically signed by Rupesh Araya MD in OV> ?05/23/24 1258 ? DD/ 1237 ? TD/TT: 05/23/24 1240 ? [employer] Consultant: ? Procedure Note Donotuseinterpreter, Image - 05/23/[address] [address] XRay Report Signed Patient: Lori LandMR#: [id number] : 7Acct:[id number] Age/Sex: 68 / FADM Date: 05/23/24 Loc: HO.ED Attending Dr: Ordering Physician: Yancy Jacobson Date of Service: 05/23/24 Procedure(s): XR chest 1V Accession Number(s): [id number] cc: Yancy Jacobson; Lucrecia Teixeira EXAMINATION: XR CHEST CLINICAL INFORMATION: fever, weakness COMPARISON: None available. TECHNIQUE: Frontal view of the chest was obtained. FINDINGS: Right-sided tunneled dialysis catheter in place with tip in the right atrium. There is cardiomegaly. Mediastinal and hilar contours otherwise normal. Lungs demonstrate low lung volumes. Right perihilar haziness. There is diffuse small airway thickening throughout both lungs with mild increase of the background interstitial markings. No pneumothorax or effusion. No focal osseous or soft tissue abnormality. XR/XR chest 1V IMPRESSION: 1. Dialysis catheter in good position. 2. Cardiomegaly. 3. Right perihilar haziness with diffuse small airway thickening throughout both lungs. Electronically signed by: Rupesh Araya MD 05/23/2024 12:58 PM EDT Dictated By: Rupesh Araya MD Signed By: <Electronically signed by Rupesh Araya MD in OV> 05/23/24 1258 DD/ 1237 TD/TT: 05/23/24 1240 [employer] Consultant: [facility] External Provider IMG XR PROCEDURES Final Result * SARS-CoV-2 RNA, Influenza A/B, and RSV RNA, Ql NAAT (05/23/2024 12:29 PM EDT) Influenza A PCR NEGATIVE Negative [facility] Influenza B PCR NEGATIVE Negative [facility] Resp Syncy Virus RNA Qual PCR NEGATIVE Negative [facility] SARS COV2 PCR NEGATIVE Negative [facility] Comment:All test results mus t be correlated with clinical findings.Negative results do not preclude SARS-CoV2, influenza Avirus, influenza B virus and/or RSV infectionand should not be used as the sole basis for treatment orother patient management decisions. Negative results must becombined with clinical observations, patient history, andepidemiological information.This test has not been evaluated for monitoring treatment ofinfection.This test has been authorized by the FDA under an EmergencyUse Authorization (EUA) for use by authorized laboratories.Testing performed on the [employer] GeneXpert utilizingreal-time RT-PCR.All SARS CoV2 and positive influenza A/B results arereported to [facility]. 05/23/2024 12:2 9 PM EDT 05/23/2024 12:31 PM EDT Generic External Data Provider LAB MICROBIOLOGY - GENERAL ORDERABLES Final Result [facility] [address] [place] [address] [phone] * XR Tibia Fibula 2 Views Left (05/23/2024 10:45 AM EDT) Anatomical Region Laterality Modality Lower Extremities, Lower Leg Left Rad iographic Imaging 05/23/2024 10:4 5 AM EDT Narrative 05/23/2024 11:22 AM EDT ? [facility] ?[address] ?[place] [address] ?XRay Report ? Signed ? Patient: Trever Reid,Lori ?MR#: [id number] ?? [id number] ? : 1955 ?Acct:[id number] ? Age/Sex: 68 / F ?ADM Date: 05/23/24 ? Loc: HO.ED ? Attending Dr: ? Ordering Physician: Yancy Jacobson ?? Date of Service: 05/23/24 ?? Procedure(s): XR tibia fibula LT 2V ?? Accession Number(s): [id number] ? cc: Yancy Jacobson; Lucrecia Teixeira ? [...] DD/ 1045 ? TD/TT: 05/23/24 1105 ? [employer] Consultant: ? Procedure Note Violetta Shaw - 05/23/[address] [address] XRay Report Signed Patient: Lori Land#: [id number] : 7Acct:[id number] Age/Sex: 68 / FADM Date: 05/23/24 Loc: HO.ED Attending Dr: Ordering Physician: Yancy Jacobson Date of Service: 05/23/24 Procedure(s): XR tibia fibula LT 2V Accession Number(s): [id number] cc: Yancy Jacobson; Lucrecia Teixeira EXAMINATION: XR [...] Rupesh Araya MD 05/23/2024 11:19 AM EDT RP Dictated By: Rupesh Araya MD Signed By: <Electronically signed by Rupesh Araya MD in OV> 05/23/24 1119 DD/ 1045 TD/TT: 05/23/24 1105 [employer] Consultant: [facility] External Provider IMG XR PROCEDURES Final Result * Gram stain (05/23/2024 10:34 AM EDT) 05/23/2024 10:3 4 AM EDT 05/23/2024 10:38 AM EDT Comment:Leg Lt Narrative [facility] - 05/27/2024 9:52 AM EDT left leg Gram stain results: 1+ polys 3+ epithelial cells 4+ Gram-negative rods 2+ Gram-positive cocci 1+ yeast left leg Proteus mirabilis Quant Org ID 4+ Enterococcus faecium Quant Org ID 3+ VRE Notification(A) * * This is a Vancomycin-resistant Enterococcus * *(A) Proteus mirabilis: Ampicillin >=32(R) Proteus mirabilis: Cefazolin (Non-Urine) >=32(R) Proteus mirabilis: Cefepime 16(R) Proteus mirabilis: Ceftriaxone >=64(R) Proteus mirabilis: Ciprofloxacin >=4(R) Proteus mirabilis: Ertapenem <=0.12(S) Proteus mirabilis: Gentamicin 8(R) Proteus mirabilis: Trimethoprim/Sulfamethoxazole >=320(R) Enterococcus faecium: Ampicillin >=32(R) Enterococcus faecium: Linezolid 2(S) Enterococcus faecium: Tigecycline <=0.12(S) Enterococcus faecium: Vancomycin >=32(R) Specimen Source: Leg Left Generic External Data Provider LAB MICROBIOLOGY - GENERAL ORDERABLES Final Result Performing Organization Address [facility] Co de Phone Number [facility] [address] [place] [phone] * (ABNORMAL) Sed Rate by Modified Stantonergren (05/23/2024 10:11 AM EDT) Pathologist [facility] Erythrocyte Sedimentation Rate >140(H) 0 - 20 MM/HR [facility] Comment:Patients with polycy themia and many hemoglobin abnormalitiesmay have depressed sed rates whereas patients with anemiamay have elevated sed rates. 05/23/2024 10:1 1 AM EDT 05/23/2024 10:18 AM EDT Generic External Data Provider LAB BLOOD ORDERAB LES Final Result Performing Organization Address [facility] de Phone Number [facility] [address] [place] [phone] * (ABNORMAL) C-reactive Protein (05/23/2024 10:11 AM EDT) Pathologist [facility] C Reactive Protein 37.41(H) < or = 0.50 mg/dL [facility] 05/23/2024 10:1 1 AM EDT 05/23/2024 10:18 AM EDT Generic External Data Provider LAB BLOOD ORDERAB LES Final Result Performing Organization Address [facility] Co de Phone Number [facility] [address] [place] [phone] * Lactic Acid (05/23/2024 10:11 AM EDT) Only the most recent of3 resultswithin the time period is included. Lactic Acid 0.8 0.5 - 2.0 mmol/L [facility] 05/23/2024 10:1 1 AM EDT 05/23/2024 10:16 AM EDT Generic External Data Provider LAB BLOOD ORDERAB LES Final Result Performing Organization Address [facility] de Phone Number [facility] [address] [place] [phone] * Type and screen (05/23/2024 10:07 AM EDT) Only the most recent of2 resultswithin the time period is included. Blood Type OP [facility] Antibody Screen NEGATIVE [facility] 05/23/2024 10:0 7 AM EDT 05/23/2024 10:17 AM EDT Generic External Data Provider LAB BLOOD BANK TE ST ORDERABLES Final Result Performing Organization Address [facility] de Phone Number [facility] [address] [place] [phone] * XR Hips Bilateral with Pelvis 1 view (05/23/2024 10:00 AM EDT) Anatomical Region Laterality Modality Lower Extremities, Hip Bilateral Radiograp hic Imaging 05/23/2024 10:0 0 AM EDT Narrative 05/23/2024 11:24 AM EDT ? [facility] ?[address] ?[place] [address] ?XRay Report ? Signed ? Patient: Trever Reid,Lori ?MR#: [id number] ?? [id number] ? : 1955 ?Acct:[id number] ? Age/Sex: 68 / F ?ADM Date: 04/10/25 ? Loc: HO.ED ? Attending Dr: ? Ordering Physician: Yancy Jacobson ?? Date of Service: 05/23/24 ?? Procedure(s): XR hip BI w PEL1V ?? Accession Number(s): [id number] ? cc: Yancy Jacobson; Lucrecia Teixeira ? [...] DD/ 1000 ? TD/TT: 05/23/24 1105 ? [employer] Consultant: ? Procedure Note Violetta Shaw - 05/23/[address] [address] XRay Report Signed Patient: Lori LandMR#: [id number] : 1955cct:[id number] Age/Sex: 68 / FADM Date: 05/23/24 Loc: HO.ED Attending Dr: Ordering Physician: Yancy Jacobson Date of Service: 05/23/24 Procedure(s): XR hip BI w PEL1V Accession Number(s): [id number] cc: Yancy Jacobson; Lucrecia Teixeira EXAMINATION: XR [...] 05/23/24 1121 DD/ 1000 TD/TT: 05/23/24 1105 [employer] Consultant: [facility] External Provider IMG XR PROCEDURES Final Result * XR Foot 3+ Views Bilateral (05/23/2024 10:00 AM EDT) Anatomical Region Laterality Modality Lower Extremities, Foot Bilateral Radiogra phic Imaging 05/23/2024 10:0 0 AM EDT Narrative 05/23/2024 11:35 AM EDT ? [facility] ?[address] ?[place] [address] ?XRay Report ? Signed ? Patient: Lori Land ?MR#: [id number] ?? [id number] ? : 1955 ?Acct:[id number] ? Age/Sex: 68 / F ?ADM Date: 04/10/25 ? Loc: HO.ED ? Attending Dr: ? Ordering Physician: Yancy Jacobson ?? Date of Service: 05/23/24 ?? Procedure(s): XR Foot Eugenio 3V ?? Accession Number(s): [id number] ? cc: Yancy Jacobson; Lucrecia Teixeira ? EXAMINATION: ?? XR FOOT, BILATERAL 3V ? CLINICAL INFORMATION: ?? 5th toe amp wound, concern for osteo to the foot ? COMPARISON: ?? None available. ? TECHNIQUE: ?? AP, lateral, and oblique views of both feet. ? FINDINGS: ?? Left Foot: ?? There has been amputation of the fifth digit at the distal metatarsal ?? level. Soft tissue defect overlying. ?? Mild irregularity of the osteotomy site versus resorptive changes of ?? the entire fifth metatarsal head. ? There is diffuse osteopenia. There is no acute fracture or ?? malalignment. There are degenerative changes in the interphalangeal ?? joints, and mild changes at the MTP joint. Hammertoe deformities. ?? Prominent plantar and dorsal calcaneal spurring. ? Soft tissues otherwise demonstrate diffuse vascular calcification. No ?? subcutaneous emphysema is seen in the midfoot or hindfoot. ? Right Foot: ?? Diffuse osteopenia. No fracture or malalignment. Hammertoe deformities. ?? Deformity of the fifth digit proximal phalanx, chronic, possibly based ?? on healed osteomyelitis. ?? No definite radiographic changes of acute osteomyelitis. ?? Small plantar and dorsal calcaneal spurs. ? Soft tissue ulceration overlying the heel region. These vascular ?? calcifications. No gross subcutaneous emphysema. ? XR/XR Foot Eugenio 3V ?? IMPRESSION: ?? Left Foot: ?? 1. Fifth digit amputation. Soft tissue defect overlying the amputation ?? site. There is either irregularity of the osteotomy site at the ?? metaphysis of the fifth metatarsal, or there is osteolysis of the fifth ?? metatarsal head. Both are concerning for osteomyelitis. ?? 2. Diffuse osteopenia. Vascular calcifications. ? Right Foot: ?? 1. Soft tissue ulceration in the heel region without definite ?? radiographic changes of osteomyelitis. No acute bony abnormality. ?? 2. Diffuse osteopenia. Vascular calcifications. ? Electronically signed by: ??Rupesh Araya MD ??05/23/2024 11:32 AM EDT RP ? Dictated By: ?Rupesh Araya MD ? Signed By: ?<Electronically signed by Rupesh Araya MD in OV> ?05/23/24 1132 ? DD/ 1000 ? TD/TT: 05/23/24 1105 ? [employer] Consultant: ? Procedure Note Donotjackinterpreter, Image - 05/23/[address] [address] XRay Report Signed Patient: Lori LandMR#: [id number] : 1955cct:[id number] Age/Sex: 68 / FADM Date: 05/23/24 Loc: HO.ED Attending Dr: Ordering Physician: Yancy Jacobson Date of Service: 05/23/24 Procedure(s): XR Foot Eugenio 3V Accession Number(s): [id number] cc: Yancy Jacobson; Lucrecia Teixeira EXAMINATION: XR FOOT, BILATERAL 3V CLINICAL INFORMATION: 5th toe amp wound, concern for osteo to the foot COMPARISON: None available. TECHNIQUE: AP, lateral, and oblique views of both feet. FINDINGS: Left Foot: There has been amputation of the fifth digit at the distal metatarsal level. Soft tissue defect overlying. Mild irregularity of the osteotomy site versus resorptive changes of the entire fifth metatarsal head. There is diffuse osteopenia. There is no acute fracture or malalignment. There are degenerative changes in the interphalangeal joints, and mild changes at the MTP joint. Hammertoe deformities. Prominent plantar and dorsal calcaneal spurring. Soft tissues otherwise demonstrate diffuse vascular calcification. No subcutaneous emphysema is seen in the midfoot or hindfoot. Right Foot: Diffuse osteopenia. No fracture or malalignment. Hammertoe deformities. Deformity of the fifth digit proximal phalanx, chronic, possibly based on healed osteomyelitis. No definite radiographic changes of acute osteomyelitis. Small plantar and dorsal calcaneal spurs. Soft tissue ulceration overlying the heel region. These vascular calcifications. No gross subcutaneous emphysema. XR/XR Foot Eugenio 3V IMPRESSION: Left Foot: 1. Fifth digit amputation. Soft tissue defect overlying the amputation site. There is either irregularity of the osteotomy site at the metaphysis of the fifth metatarsal, or there is osteolysis of the fifth metatarsal head. Both are concerning for osteomyelitis. 2. Diffuse osteopenia. Vascular calcifications. Right Foot: 1. Soft tissue ulceration in the heel region without definite radiographic changes of osteomyelitis. No acute bony abnormality. 2. Diffuse osteopenia. Vascular calcifications. Electronically signed by: Rupesh Araya MD 05/23/2024 11:32 AM EDT Dictated By: Rupesh Araya MD Signed By: <Electronically signed by Rupesh Araya MD in OV> 05/23/24 1132 DD/ 1000 TD/TT: 05/23/24 1105 [employer] Consultant: [facility] External Provider IMG XR PROCEDURES Final Result * Hold Lavender - Possible Hematology (05/23/2024 9:42 AM EDT) Hold Lavender - Possible Hematololgy SEE NOTE [facility] Comment:Specimen will be hel d untested for 8 hours. Call Hematologyif testing is desired. 05/23/2024 9:42 AM EDT 05/23/2024 10:18 AM EDT Generic External Data Provider HISTORICAL/NON OR DERABLE LABS Final Result Performing Organization Address City/[facility]/ZIP Co de Phone Number [facility] [address] [place] [phone] * HOLD LT BLUE - POSSIBLE COAG (05/23/2024 9:39 AM EDT) Hold Lt Blue - Possible Coag SEE NOTE [facility] Comment:Specimen will be hel d untested for 4 hours. Call Hematologyif testing is desired. 05/23/2024 9:39 AM EDT 05/23/2024 10:21 AM EDT Generic External Data Provider LAB BLOOD ORDERAB LES Final Result Performing Organization Address City/[facility]/ZIP Co de Phone Number [facility] [address] [place] [address] [phone] * (ABNORMAL) CBC auto differential (05/23/2024 9:39 AM EDT) White Blood Count 13.9(H) 4.8 - 10.8 X10*3/uL [facility] Red Blood Count 2.48(L) 4.20 - 5.50 X10*6/uL [facility] Hemoglobin 7.4(L) 12.0 - 16.0 g/dl [facility] Hematocrit 21.6(L) 37.0 - 47.0 % [facility] Mean Corpuscular Volume 87.1 80.0 - 98.0 fL [facility] Mean Corpuscular Hemoglobin 29.8 27.0 - 33.0 pg [facility] Mean Corpuscular HGB Conc 34.3 31.0 - 35.0 g/dl [facility] Red Cell Distribution Width 19.7(H) 11.0 - 16.0 % [facility] Platelet Count TNP 160 - 400 X10*3/uL [facility] Comment:Platelet clumps note d. Platelet count will not be accurate. Mean Platelet Volume TNP 9.4 - 12.3 fL [facility] Neutrophils Percent Auto 75.3(H) 45 - 73 % [facility] Imm Gran Pct Auto 3.2(H) 0.0 - 0.4 % [facility] Lymphocytes Percent Auto 10.8(L) 20 - 40 % [facility] Monocytes Percent Auto 9.0 2 - 11 % [facility] Eosinophils Percent Auto 1.2 0 - 4 % [facility] Basophils Percent Auto 0.5 0 - 2 % [facility] NRBC Pct Auto 0.0 0.0 - 0.2 /100WBC [facility] Neutrophils Absolute Auto 10.5(H) 2.0 - 8.3 x10*3/uL [facility] Imm Gran Abs Auto 0.45(H) 0.00 - 0.03 X10*3/uL [facility] Lymphocytes Absolute Auto 1.5 1.2 - 4.9 X10*3/uL [facility] Monocytes Absolute Auto 1.3(H) 0.1 - 1.2 X10*3/uL [facility] Eosinophils Absolute Auto 0.2 0.0 - 0.4 X10*3/uL [facility] Basophils Absolute Auto 0.1 0.0 - 0.2 X10*3/uL [facility] NRBC Abs Auto 0.000 0.0 - 0.012 X10*3/uL [facility] 05/23/2024 9:39 AM EDT 05/23/2024 9:46 AM EDT us Generic External Data Provider LAB BLOOD ORDERAB LES Edited Result - Final [facility] [address] [place] [address] [phone] * CT Abdomen Pelvis w/o Contrast (05/19/2024 1:26 PM EDT) Only the most recent of2 resultswithin the time period is included. Anatomical Region Laterality Modality Body, Pelvis, Abdomen Computed T omography 05/19/2024 1:26 PM EDT Narrative 05/19/2024 1:28 PM EDT ? [facility] ?[address] [facility] [facility] ?[place] [address] ? [address] Scan Report ? Signed ? Patient: Lori Land ?MR#: [id number] ?? [id number] ? : 1955 ?Acct:[id number] ? Age/Sex: 68 / F ?ADM Date: 05/04/24 ? Loc: HO.[facility] ?459-1 ? Attending Dr: Suze JULES ? Ordering Physician: Suze Nielsen ?? Date of Service: 05/18/24 ?? Procedure(s): CT abdomen pelvis wo IV con ?? Accession Number(s): [id number] ? cc: Suze Nielsen; Lucrecia Teixeira ? Report Number: ?? [id number]: Total DLP = 1305.00 mGy-cm ? CLINICAL HISTORY: anemia r o retroperitoneal hematoma ? CT abdomen and pelvis without contrast ? Comparison: CT/SR - CT PELVIS WO IV CON - 05/05/24 15:18 EDT ?? CT/FL/SR - CT ABDOMEN PELVIS WO IV CON [...] DD/ 1326 ? TD/TT: 05/19/24 1326 ? [employer] Consultant: ? Procedure Note Violetta Shaw - 05/19/[address] [place] [address] [address] Scan Report Signed Patient: Lori LandMR#: [id number] : 1955cct:[id number] Age/Sex: 68 / FADM Date: 05/04/24 Loc: [facility] 459-[address]: Suze JULES Ordering Physician: Suze Nielsen Date of Service: 05/18/24 Procedure(s): CT abdomen pelvis wo IV con Accession Number(s): [id number] cc: Suze Nielsen; Lucrecia Teixeira Report Number: [id number]: Total DLP = 1305.00 mGy-cm CLINICAL HISTORY: anemia r o retroperitoneal hematoma CT abdomen and pelvis without contrast Comparison: CT/SR - CT PELVIS WO IV CON - 05/05/24 15:[address]/FL/SR - CT ABDOMEN PELVIS WO IV CON [...] 05/19/24 1327 DD/ 1326 TD/TT: 05/19/24 1326 [employer] Consultant: [facility] External Provider IMG CT PROCEDURES Edited Result - Final * XR KUB and Upright 2 Views (05/11/2024 6:34 PM EDT) Anatomical Region Laterality Modality Radiographic Anya ging 05/11/2024 6:34 PM EDT Narrative 05/11/2024 6:36 PM EDT ? [facility] ?[address] ?[place] [address] ?XRay Report ? Signed ? Patient: Trever Reid,Lori ?MR#: [id number] ?? [id number] ? : 1955 ?Acct:[id number] ? Age/Sex: 68 / F ?ADM Date: 03/22/25 ? Loc: HO.IMC ?459-1 ? Attending : Erin Al ASSEMBLY MACHINE OFFBEARER ? Ordering Physician: Erin Al ASSEMBLY MACHINE OFFBEARER ?? Date of Service: 05/11/24 ?? Procedure(s): XR KUB ?? Accession Number(s): [id number] ? cc: Lucrecia Teixeira; Erin Al ASSEMBLY MACHINE OFFBEARER ? CLINICAL HISTORY: abdominal pain ? Radiograph [...] has been electronically signed by: Rhiannon Clark, on ?? 05/11/2024 18:34:48 ? Dictated By: ?Rhiannon Clark MD ? Signed By: ?<Electronically signed by Rhiannon Clark MD in OV> ?05/11/24 1835 ? DD/ 1834 ? TD/TT: 05/11/24 1834 ? [employer] Consultant: ? Procedure Note Donotuseinterpreter, Image - 05/11/2024 [place] [address] XRay Report Signed Patient: Lori LandMR#: [id number] : 1955cct:[id number] Age/Sex: 68 / FADM Date: 05/04/24 Loc: .[facility] [place] 459-[address]: Erin Al NP Ordering Physician: Erin Al NP Date of Service: 05/11/24 Procedure(s): XR KUB Accession Number(s): [id number] cc: Lucrecia Teixeira; Erin Al NP CLINICAL [...] signed by Rhiannon Clark MD in OV> 05/11/24 183 DD/ 33 TD/TT: 05/11/24 183 [employer] Consultant: [facility] External Provider IMG XR PROCEDURES Edited Result - Final * IR cvc replace central tunnel (05/09/2024 12:00 PM EDT) Anatomical Region Laterality Modality X-Ray Angiograph y 05/09/2024 12:0 0 PM EDT Narrative 05/09/2024 1:56 PM EDT ? [facility] ?[address] ?[place] [address] ?Interventional Radiology Rpt ? Signed ? Patient: Lori Land ?MR#: [id number] ?? [id number] ? : 1955 ?Acct:[id number] ? Age/Sex: 68 / F ?ADM Date: 05/04/24 ? Loc: HO.[facility]C ?459-1 ? Attending Dr: Tima Lal MD ? Ordering Physician: Tima Jimenes MD ?? Date of Service: 05/09/24 ?? Procedure(s): IR cvc replace central tunnel ?? Accession Number(s): [id number] ? cc: Tima Jimenes MD; Lucrecia Teixeira [...] over wire and ?? a new 14.5 Gambian 23 cm tip to cuff catheter was [...] DD/ 1200 ? TD/TT: 05/09/24 1313 ? [employer] Consultant: ? Procedure Note Valeria, Image - 05/09/2024 [place] [address] Interventional Radiology Rpt Signed Patient: Lori LandMR#: [id number] : 1955cct:[id number] Age/Sex: 68 / FADM Date: 05/04/24 Loc: .[facility] 459-[address]: Tima Lal MD Ordering Physician: Tima Jimenes MD Date of Service: 05/09/24 Procedure(s): IR cvc replace central tunnel Accession Number(s): [id number] cc: Tima Jimenes MD; Lucrecia Teixeira CLINICAL [...] removed over wire and a new 14.5 Gambian 23 cm tip to cuff catheter was [...] 05/09/24 1354 DD/ 1200 TD/TT: 05/09/24 1313 [employer] Consultant: [facility] External Provider IMG IR PROCEDURES Final Result * CT Head w/o Contrast (05/08/2024 10:56 PM EDT) Only the most recent of3 resultswithin the time period is included. Anatomical Region Laterality Modality Head, Neck Computed Tomogra phy 05/08/2024 10:5 6 PM EDT Narrative 05/08/2024 10:57 PM EDT ? [facility] ?[address] ?[place] [address] ? CT Scan Report ? Signed ? Patient: Trever Reid,Lori ?MR#: [id number] ?? [id number] ? : 1955 ?Acct:[id number] ? Age/Sex: 68 / F ?ADM Date: 05/04/24 ? Loc: HO.[facility]C ?459-1 ? Attending Dr: Tima Lal MD ? Ordering Physician: Annette Trotter PA-C ?? Date of Service: 05/08/24 ?? Procedure(s): CT head/brain wo IV con ?? Accession Number(s): [id number] ? cc: Lucrecia Teixeira; Annette Trotter PA-C ? Report Number: ?? [id number]: Total DLP = ??749.00 mGy-cm ? CLINICAL [...] on ?? 05/08/2024 22:56:18 ? Dictated By: ?iTto Coleman MD ? Signed By: ?<Electronically signed by Tito Coleman MD in OV> ? 05/08/242256 ? DD/ 55 ? TD/TT: 05/08/24 2256 ? [employer] Consultant: ? Procedure Note Donotuseinterpreter, Image - 05/08/[address] [place] [address] [address] Scan Report Signed Patient: Lori LandMR#: [id number] : 1955cct:[id number] Age/Sex: 68 / FADM Date: 05/04/24 Loc: [facility] 459-[address]: Tima Lal MD Ordering Physician: Annette Trotter PA-C Date of Service: 05/08/24 Procedure(s): CT head/brain wo IV con Accession Number(s): [id number] cc: Lucrecia Teixeira; Annette Trotter PA-C Report Number: [id number]: Total DLP = 749.00 mGy-cm CLINICAL HISTORY: [...] in OV> 05/08/242256 DD/ 55 TD/TT: 05/08/242255 [employer] Consultant: us [facility] External Provider IMG CT PROCEDURES Edited Result - Final * CT Pelvis w/o Contrast (05/05/2024 4:00 PM EDT) Anatomical Region Laterality Modality Body, Pelvis Computed Tomogra phy 05/05/2024 4:00 PM EDT Narrative 05/05/2024 4:02 PM EDT ? [facility] ?[address] ?[place] [address] ? CT Scan Report ? Signed ? Patient: Trever Reid,Lori ?MR#: [id number] ?? [id number] ? : 1955 ?Acct:[id number] ? Age/Sex: 68 / F ?ADM Date: 05/04/24 ? Loc: HO.IMC ?459-1 ? Attending Dr: Juan Nogueira MD ? Ordering Physician: Juan Nogueira MD ?? Date of Service: 05/05/24 ?? Procedure(s): CT pelvis wo IV con ?? Accession Number(s): [id number] ? cc: Lucrecia Teixeira; Juan Nogueira MD ? Report Number: ?? [id number]: Total DLP = ??555.00 mGy-cm ? CLINICAL HISTORY: fall ,right hip lucency ? CT pelvis without contrast ? Comparison: CR - XR HIPS EUGENIO MIN 3V - 05/04/24 13:37 EDT ?? CR - XR HIP RT W PEL1V - 04/08/24 00:44 EST ?? CT/FL/SR - CT ABDOMEN PELVIS WO IV CON [...] DD/ 1600 ? TD/TT: 05/05/24 1600 ? [employer] Consultant: ? Procedure Note Donbekajackervinter, Image - 05/05/[address] [place] [address] [address] Scan Report Signed Patient: Lori LandMR#: [id number] : 1955cct:[id number] Age/Sex: 68 / FADM Date: 05/04/24 Loc: [facility] 459-[address]: Juan Nogueira MD Ordering Physician: Juan Nogueira MD Date of Service: 05/05/24 Procedure(s): CT pelvis wo IV con Accession Number(s): [id number] cc: Lucrecia Teixeira; Juan Nogueira MD Report Number: [id number]: Total DLP = 555.00 mGy-cm CLINICAL HISTORY: fall ,right hip lucency CT pelvis without contrast Comparison: CR - XR HIPS EUGENIO MIN 3V - 05/04/24 13:37 EDT CR - XR HIP RT W PEL1V - 04/08/24 00:[address]/FL/SR - CT ABDOMEN PELVIS WO IV CON [...] 05/05/24 1601 DD/ 1600 TD/TT: 05/05/24 1600 [employer] Consultant: [facility] External Provider IMG CT PROCEDURES Edited Result - Final * XR Hips Bilateral 3 or 4 Views with or without Pelvis (05/04/2024 2:06 PM EDT) Anatomical Region Laterality Modality Lower Extremities, Hip Bilateral Radiograp hic Imaging 05/04/2024 2:06 PM EDT Narrative 05/04/2024 2:09 PM EDT ? [facility] ?[address] ?[place] [address] ?XRay Report ? Signed ? Patient: Lori Land ?MR#: [id number] ?? [id number] ? : 1955 ?Acct:[id number] ? Age/Sex: 68 / F ?ADM Date: 05/04/24 ? Loc: HO.WILD ?IMC-5 ? Attending Dr: Rigoberto JULES ? Ordering Physician: Rigoberto Cueto ?? Date of Service: 05/04/24 ?? Procedure(s): XR hips EUGENIO min 3V ?? Accession Number(s): [id number] ? cc: Rigoberto Cueto; Lucrecia Teixeira ? [...] by Jimy Hoffman MD in OV> ? 05/04/247 ? DD/ ? TD/TT: 05/04/24 1406 ? [employer] Consultant: ? Procedure Note Dontruongter, Image - 05/04/[address] [address] XRay Report Signed Patient: Lori LandMR#: [id number] : 1955cct:[id number] Age/Sex: 68 / FADM Date: 05/04/24 Loc: [facility] IMC-[address]: Rigoberto JULES Ordering Physician: Rigoberto Cueto Date of Service: 05/04/24 Procedure(s): XR hips EUGENIO min 3V Accession Number(s): [id number] cc: Rigoberto Cueto; Lucrecia Teixeira CLINICAL HISTORY: [...] Hoffman MD in OV> 05/04/24 1407 DD/ 05 TD/TT: 05/04/241405 [employer] Consultant: [facility] External Provider IMG XR PROCEDURES Edited Result - Final * Lactic Acid (05/04/2024 11:09 AM EDT) Lactic Acid 1.6 0.5 - 2.0 mmol/L [facility] 05/04/2024 11:0 9 AM EDT 05/04/2024 11:12 AM EDT Generic External Data Provider LAB BLOOD ORDERAB LES Final Result Performing Organization Address [facility] de Phone Number [facility] [address] [place] [address] [phone] * Red blood count (05/04/2024 3:30 AM EDT) Red Blood Cells: [id number] OP RC TRANSFUSED 05/04/24 0430 [facility] 05/04/2024 3:30 AM EDT 05/04/2024 3:33 AM EDT Generic External Data Provider LAB BLOOD ORDERAB LES Final Result Performing Organization Address [facility] de Phone Number [facility] [address] [place] [address] [phone] * CT Cervical Spine w/o Contrast (05/04/2024 3:28 AM EDT) Anatomical Region Laterality Modality Spine, C-spine Computed Tomogra phy 05/04/2024 3:28 AM EDT Narrative 05/04/2024 3:30 AM EDT ? [facility] ?[address] ?[place] [address] ? CT Scan Report ? Signed ? Patient: Trever Reid,Lori ?MR#: [id number] ?? [id number] ? : 1955 ?Acct:[id number] ? Age/Sex: 68 / F ?ADM Date: 03/22/25 ? Loc: HO.ED ? Attending Dr: ? Ordering Physician: Gunnar Louie MD ?? Date of Service: 05/04/24 ?? Procedure(s): CT cervical spine wo IV con ?? Accession Number(s): [id number] ? cc: Lucrecia Teixeira; Gunnar Louie MD ? Report Number: ?? [id number]: Total DLP = 1238.00 mGy-cm ? CLINICAL [...] DD/ 0328 ? TD/TT: 05/04/24 0328 ? [employer] Consultant: ? Procedure Note Valeria, Image - 05/04/[address] [place] [address] [address] Scan Report Signed Patient: Lori LandMR#: [id number] : 1955cct:[id number] Age/Sex: 68 / FADM Date: 05/04/24 Loc: HO.ED Attending Dr: Ordering Physician: Gunnar Louie MD Date of Service: 05/04/24 Procedure(s): CT cervical spine wo IV con Accession Number(s): [id number] cc: Lucrecia Teixeira; Gunnar Louie MD Report Number: [id number]: Total DLP = 1238.00 mGy-cm CLINICAL HISTORY: [...] signed by Sammy Elise MD in OV> 05/04/24 0329 DD/ 7 TD/TT: 05/04/24327 [employer] Consultant: [facility] External Provider IMG CT PROCEDURES Edited Result - Final * POCT Glucose (04/23/2024 9:28 AM EDT) Glucose Blood, POC 196 60 - 200 mg/dL Blood Capillary blood specimen / Unknown 04/23/2024 9:28 AM EDT Lucrecia Teixeira MD POINT OF CARE TEST ENTER/EDIT ORDERABLES Final Result * XR Foot 3+ Views Left (04/08/2024 1:39 AM EST) Anatomical Region Laterality Modality Lower Extremities, Foot Left Radiogra phic Imaging 04/08/2024 1:39 AM EST Narrative 04/08/2024 1:40 AM EST ? [facility] ?[address] ?[place] [address] ?XRay Report ? Signed ? Patient: Lori Land ?MR#: [id number] ?? [id number] ? : 1955 ?Acct:[id number] ? Age/Sex: 68 / F ?ADM Date: 04/07/24 ? Loc: HO.ED ? Attending Dr: ? Ordering Physician: Elo Neves ?? Date of Service: 04/08/24 ?? Procedure(s): XR foot LT min 3V ?? Accession Number(s): [id number] ? cc: Elo Neves; Lucrecia Teixeira ? [...] 04/08/24 0140 ? DD/ 0139 ? TD/TT: 04/08/24 0139 ? [employer] Consultant: ? Procedure Note Doncurly, Image - 04/08/[address] [address] XRay Report Signed Patient: Lori LandMR#: [id number] : 1955cct:[id number] Age/Sex: 68 / FADM Date: 04/07/24 Loc: HO.ED Attending Dr: Ordering Physician: Elo Neves Date of Service: 04/08/24 Procedure(s): XR foot LT min 3V Accession Number(s): [id number] cc: Elo Neves; Lucrecia Teixeira CLINICAL HISTORY: [...] signed by Suman Berger MD in OV> 04/08/24139 DD/ 8 TD/TT: 04/08/24138 [employer] Consultant: [facility] External Provider IMG XR PROCEDURES Edited Result - Final * XR Hip right with Pelvis 1 view (04/08/2024 1:36 AM EST) Anatomical Region Laterality Modality Lower Extremities, Hip Bilateral Radiograp hic Imaging 04/08/2024 1:36 AM EST Narrative 04/08/2024 1:38 AM EST ? [facility] ?[address] ?[place] [address] ?XRay Report ? Signed ? Patient: Lori Land ?MR#: [id number] ?? [id number] ? : 1955 ?Acct:[id number] ? Age/Sex: 68 / F ?ADM Date: 04/07/24 ? Loc: HO.ED ? Attending Dr: ? Ordering Physician: Elo Neves ?? Date of Service: 04/08/24 ?? Procedure(s): XR hip RT w PEL1V ?? Accession Number(s): [id number] ? cc: Elo Neves; Lucrecia Teixeira ? CLINICAL HISTORY: trauma ? 3 view, pelvis and right hip ? Comparison: None ? Findings: ?? Deformity of the proximal right femur appears old/chronic. No acute or ?? displaced fracture. Calcific tendinitis given noted adjacent to right ?? greater trochanter. Mild pelvis deformities appear old chronic. ?? Zoslkyql-st-rywvdd osteoarthritis of both hips. ?? Vascular calcifications are redemonstrated. ? IMPRESSION: ?? 1. No acute fracture or dislocation. ? 2. Osteoarthritis of the both hips noted ? This document has been electronically signed by: Suman Berger MD on ?? 04/08/2024 01:36:41 ? Dictated By: ?Suman Berger MD ? Signed By: ?<Electronically signed by Suman Berger MD in OV> ? 04/08/24137 ? DD/ 5 ? TD/TT: 04/08/24135 ? [employer] Consultant: ? Procedure Note Doncurly, Violetta - 04/08/[address] [address] XRay Report Signed Patient: Lori LandMR#: [id number] : 1955cct:[id number] Age/Sex: 68 / FADM Date: 04/07/24 Loc: HO.ED Attending Dr: Ordering Physician: Elo Neves Date of Service: 04/08/24 Procedure(s): XR hip RT w PEL1V Accession Number(s): [id number] cc: Elo Neves; Lucrecia Teixeira CLINICAL HISTORY: trauma 3 view, pelvis and right hip Comparison: None Findings: Deformity of the proximal right femur appears old/chronic. No acute or displaced fracture. Calcific tendinitis given noted adjacent to right greater trochanter. Mild pelvis deformities appear old chronic. Oqpbzntr-xg-fzzqzc osteoarthritis of both hips. Vascular calcifications are redemonstrated. IMPRESSION: 1. No acute fracture or dislocation. 2. Osteoarthritis of the both hips noted This document has been electronically signed by: Suman Berger MD on 04/08/2024 01:36:41 Dictated By: Suman Berger MD Signed By: <Electronically signed by Suman Berger MD in OV> 04/08/24137 DD/ 5 TD/TT: 04/08/24135 [employer] Consultant: [facility] External Provider IMG XR PROCEDURES Edited Result - Final * IR CVC Insert Central Tunnel (03/27/2024 1:00 PM EST) Anatomical Region Laterality Modality Body X-Ray Angiograph y 03/27/2024 1:00 PM EST Narrative 04/08/2024 4:20 PM EST ? [facility] [facility] ?[address] ?[place] [address] ?Interventional Radiology Rpt ? Signed ? Patient: Perera Franklin,Lori ?MR#: [id number] ?? [id number] ? : 1955 ?Acct:[id number] ? Age/Sex: 68 / F ?ADM Date: 03/22/24 ? Loc: HO.IMC ?484-1 ? Attending Dr: Chaya Rodriguez MD ? Ordering Physician: Moses Reynoso MD ?? Date of Service: 03/27/24 ?? Procedure(s): IR cvc insert central tunnel ?? Accession Number(s): [id number] ? cc: Moses Reynoso MD; Lucrecia Teixeira [...] signed by Greg Kumari in OV> ? 04/08/24 1617 ?<Electronically signed by Jose M Dumont MD in OV> ? 04/08/24 1620 ? DD/ 1300 ? TD/TT: 03/27/24 1423 ? [employer] Consultant: ? Procedure Note Valeria, Image - 04/08/[address] [address] Interventional Radiology Rpt Signed Patient: Lori Land#: [id number] : 7Acct:[id number] Age/Sex: 68 / FADM Date: 03/22/24 Loc: .[facility] [place] 484-[address]: Chaya Rodriguez MD Ordering Physician: Moses Reynoso MD Date of Service: 03/27/24 Procedure(s): IR cvc insert central tunnel Accession Number(s): [id number] cc: Moses Reynoso MD; Lucrecia Teixeira CLINICAL [...] 04/08/24 1620 DD/ 1300 TD/TT: 03/27/24 1423 [employer] Consultant: [facility] External Provider IMG IR PROCEDURES Final Result * IR US Guide - Venous Access (03/22/2024 2:37 PM EST) Anatomical Region Laterality Modality X-Ray Angiograph y 03/22/2024 2:37 PM EST Narrative 03/26/2024 4:55 PM EST ? [facility] ?[address] ?[place] [address] ?Interventional Radiology Rpt ? Signed ? Patient: Lori Land ?MR#: [id number] ?? [id number] ? : 1955 ?Acct:[id number] ? Age/Sex: 68 / F ?ADM Date: 03/22/24 ? Loc: HO.IMC ?484-1 ? Attending Dr: Chaya Rodriguez MD ? Ordering Physician: Moses Reynoso MD ?? Date of Service: 03/22/24 ?? Procedure(s): IR us guide venous access ?? Accession Number(s): [id number] ? cc: Moses Reynoso MD; Lucrecia Teixeira [...] DD/ 1437 ? TD/TT: 03/22/24 1439 ? [employer] Consultant: ? Procedure Note Donotuseinterpreter, Image - 03/26/2024 [place] [address] Interventional Radiology Rpt Signed Patient: Lori LandMR#: [id number] : 1955cct:[id number] Age/Sex: 68 / FADM Date: 03/22/24 Loc: [facility] 484-[address]: Chaya Rodriguez MD Ordering Physician: Moses Reynoso MD Date of Service: 03/22/24 Procedure(s): IR us guide venous access Accession Number(s): [id number] cc: Moses Reynoso MD; Lucrecia Teixeira CLINICAL [...] 03/26/24 1654 DD/ 1437 TD/TT: 03/22/24 1439 [employer] Consultant: [facility] External Provider IMG IR PROCEDURES Final Result * IR cvc insert non tunnel (03/22/2024 12:30 PM EST) Anatomical Region Laterality Modality X-Ray Angiograph y 03/22/2024 12:3 0 PM EST Narrative 03/26/2024 4:55 PM EST ? [facility] ?[address] ?[place] [address] ?Interventional Radiology Rpt ? Signed ? Patient: Lori Land ?MR#: [id number] ?? [id number] ? : 1955 ?Acct:[id number] ? Age/Sex: 68 / F ?ADM Date: 02/07/25 ? Loc: HO.IMC ?484-1 ? Attending Dr: Chaya Rodriguez MD ? Ordering Physician: Moses Reynoso MD ?? Date of Service: 03/22/24 ?? Procedure(s): IR cvc insert non tunnel ?? Accession Number(s): [id number] ? cc: Moses Reynoso MD; Lucrecia Teixeira [...] 04:51 PM EST RP ? Dictated By: ?Quoc,Greg JULES ? Signed By: ?<Electronically signed by Greg Kumari in [place]> ? 03/26/24 1651 ?<Electronically signed by Jose M Dumont MD in [place]> ? 03/26/24 1654 ? DD/ 1230 ? TD/TT: 03/22/24 1439 ? [employer] Consultant: ? Procedure Note Violetta Shaw - 03/26/2024 [place] [id number] Interventional Radiology Rpt Signed Patient: Lori LandMR#: [id number] : 1955cct:[id number] Age/Sex: 68 / FADM Date: 03/22/24 Loc: [facility] [facility] [place] [place] [address]: Chaya Rodriguez MD Ordering Physician: Moses Reynoso MD Date of Service: 03/22/24 Procedure(s): IR cvc insert non tunnel Accession Number(s): [id number] cc: Moses Reynoso MD; Lucrecia Teixeira CLINICAL [...] Jose M Dumont MD 03/26/2024 04:51 PM [facility] Dictated By: Greg Kumari Signed By: <Electronically signed by Greg Kumari in OV> 03/26/24 1651 <Electronically signed by Jose M Dumont MD in OV> 03/26/24 1654 DD/ 1230 TD/TT: 03/22/24 1439 [employer] Consultant: [facility] External Provider IMG IR PROCEDURES Final Result * POCT HGB A1C (12/13/2023 2:05 PM EDT) Hemoglobin A1C 5.9 4.0 - 6.0 % QC Media Lot # [id number] Lot# Expiration Date 205, Blood 12/13/2023 2:05 PM EDT us Lucrecia Teixeira MD POINT OF CARE TEST ENTER/EDIT ORDERABLES Final Result * BI Mammogram Diagnostic Tomosynthesis Right (12/16/2022 3:35 PM EDT) Anatomical Region Laterality Modality Breast Right Mammography 12/16/2022 3:35 PM EDT Narrative 12/16/2022 4:44 PM EDT ? [facility] ? [address] ?[place] [address] ? Mammography Report ? Signed ? Patient: Trever Reid,Lori E ?MR#: [id number] ?? [id number] ? : 1955 ?Acct:[id number] ? Age/Sex: 67 / F ?ADM Date: 12/16/22 ? Loc: HO.MAMMO ? Attending Dr: Lucrecia Teixeira MD ? Ordering Physician: Lucrecia Teixeira ?Results: 2Benign F ?? indings ? Date of Service: 12/16/22 ?Follow Up: 1 Year From Orig ?? inal Mammogram ? Procedure(s): MM tomosynthesis diagnostic RT ?? Accession Number(s): [id number] ? cc: Lucrecia Teixeira ? EXAMINATION: ?? [...] 1640 ? DD/ 1535 ? TD/TT: ? [employer] Consultant: ? Procedure Note Dontruongter, Image - 12/20/2022 [facility] [address] [place], [place] [address] Mammography Report Signed Patient: Lori Land EMR#: [id number] : 1955cct:[id number] Age/Sex: 67 / FADM Date: 12/16/22 Loc: HO.MAMMO Attending Dr: Lucrecia Teixeira MD Ordering Physician: Ritchie Teixeiraults: 2Benign F indings Date of Service: 12/16/22Follow Up: 1 Year From Orig ina Mammogram Procedure(s): MM tomosynthesis diagnostic RT Accession Number(s): [id number] cc: Lucrecia Teixeira EXAMINATION: MM DIAGNOSTIC DIGITAL [...] MD Signed By: <Electronically signed by Rupesh Aryaa MD in OV> 12/16/22 1640 DD/ 1535 TD/TT: [employer] Consultant: us Lucrecia Teixeira MD IMG BI PROCEDURES [...] ?? Ladarius FIELDS et al. SHYANNE. 2013;310(19): 4575-2733 ?? ([email or web address]) Non-HDL Cholesterol 163(H) <130 mg/dL (calc) [facility] Comment: For patients with diabetes plus 1 major ASCVD risk ?? factor, treating to a non-HDL-C goal of <100 mg/dL ?? (LDL-C of <70 mg/dL) is considered a therapeutic ?? option. Triglycerides 429(H) <150 mg/dL [facility] Comment: ?? If a non-fasting specimen was collected, consider repeat triglyceride testing on a fasting specimen if clinically indicated. ?? Emilia et al. J. of Clin. Lipidol. 2015;9:129-169. ?? 09/28/2021 9:30 AM EDT Jennifer Ibrahim MD LAB BLOOD ORDERABLES Final Result [facility] [address] from Last 3 Months or Most Recently Relevant to Health Maintenance Insurance STANDARD MEDICARE Care Teams Biofuels Plant Manager Relationship Specialty Start Date End Date Lucrecia Teixeira MD [address] [place] [phone] PCP - General Family Medicine [facility]
--- OUTSIDE RECORDS SUMMARY | 2024-05-27 16:36 | XMS_ITS | Encounter Summary ---
Author Organization [employer] Address [address] [facility] 7 [place] [address] Care Team Providers Care Hvac Design Engineer Name Role Phone Lucrecia Teixeira MD Primary Care Provider [phone] Reason for Visit * Reason Onset Date Comments Med Refill 03/06/2024 Encounter Details Date Type Department Care Team ([facility] Contact Info) Description 03/06/2024 Telephone [facility] MEDICINE [address] [place] [address] Lucrecia Teixeira MD [address] [place], [place] [phone] Med Refill Social History Tobacco Use Types [...] the past 12 months, has t he [employer], [employer], oil or water [employer] threatened to shut off services in your [...] 2.5 MG tablet To be sent to: [facility] - [place], [place] - [address] [facility] documented in this encounter Plan of Treatment Upcoming Encounters Date Type Department Care Team (Late st Contact Info) Description 07/15/2024 2:15 PM EDT Office Visit [facility] MEDICINE [address] [place] [address] Lucrecia Teixeira MD [address] [place] [address] documented as of this encounter Visit Diagnoses Not on filedocumented in this encounter Additional Health Concerns Assessment Noted Time PHQ-9 Depression Total Score: 0 01/21/20 23 3:26 PM EST documented as of this encounter Care Teams Hvac Design Engineer Relationship Specialty Start Date End Date Lucrecia Teixeira MD [address] [place] [address] PCP - General Family Medicine 07/12/22 [place] [facility] 04/06/24 documented as of this encounter
--- OUTSIDE RECORDS SUMMARY | 2024-05-27 16:37 | XMS_ITS | Encounter Summary ---
Author Organization [employer] Address [address] [facility] 7t [place] [address] Care Team Providers Care Monogram Maker Name Role Phone Lucrecia Teixeira MD Primary Care Provider [phone] Encounter Details Date Type Department Care Team ([facility] Contact Info) Description 05/23/2024 Orders Only [...] Upcoming Encounters Date Type Department Care Team ([facility] st Contact Info) Description 07/15/2024 2:15 PM EDT Office Visit [facility] MEDICINE [address] [place] [phone] Lucrecia Teixeira MD [address] [place] [address] [phone] Pending Results Name Type Priority Associated Diagnoses Date /Time Blood Culture (First) Microbiology Routine 05/23/2024 9:40 AM EDT Blood Culture (Second) Microbiology Routine 05/23/2024 10:11 AM EDT documented as of this encounter Procedures Procedure Name Priority Date/Time Associated Diagnosis Comments XR CHEST 1 VIEW Routine 05/23/2024 12:37 PM EDT SARS COV2/INFLUENZA A/B AND RSV RNA QL NAAT Routine 05/23/2024 12:29 PM EDT XR TIBIA FIBULA 2 VIEWS LEFT Routine 05/23/2024 10:45 AM EDT GRAM STAIN Routine 05/23/2024 10:34 AM EDT BLOOD CULTURE (SECOND) Routine 05/23/2024 10:11 AM EDT SED RATE BY MODIFIED WESTERGREN Routine 05/23/2024 10:11 AM EDT C-REACTIVE PROTEIN Routine 05/23/2024 10 :11 AM EDT LACTIC ACID Routine 05/23/2024 10:11 AM EDT TYPE AND SCREEN Routine 05/23/2024 10:07 AM EDT XR HIP BILATERAL WITH PELVIS 1 VIEW Routine 05/23/2024 10:00 AM EDT XR FOOT 3+ VIEWS BILATERAL Routine 05/23/2024 10:00 AM EDT HOLD LAVENDER - POSSIBLE HEMATOLOGY Routine 05/23/2024 9:42 AM EDT BLOOD CULTURE (FIRST) Routine 05/23/2024 9:40 AM EDT HOLD LT BLUE - POSSIBLE COAG Routine 05/23/2024 9:39 AM EDT CBC WITH AUTO DIFFERENTIAL Routine 05/23/2024 9:39 AM EDT documented in this encounter Results * XR Chest 1 View (05/23/2024 12:37 PM EDT) Anatomical Region Laterality Modality Chest Radiographic Anya ging 05/23/2024 12:3 7 PM EDT Narrative 05/23/2024 1:01 PM EDT ? [facility] ?[address] ?[place] [address] ?XRay Report ? Signed ? Patient: Lori Land ?MR#: [id number] ?? [id number] ? : 1955 ?Acct:[id number] ? Age/Sex: 68 / F ?ADM Date: 04/10/25 ? Loc: HO.ED ? Attending Dr: ? Ordering Physician: Yancy Jacobson ?? Date of Service: 05/23/24 ?? Procedure(s): XR chest 1V ?? Accession Number(s): [id number] ? cc: Yancy Jacobson; Lucrecia Teixeira ? [...] DD/ 1237 ? TD/TT: 05/23/24 1240 ? Systems Mgr: ? Procedure Note Valeria, Image - 05/23/2024 [place] [address] XRay Report Signed Patient: Lori LandMR#: [id number] : 7Acct:[id number] Age/Sex: 68 / FADM Date: 05/23/24 Loc: HO.ED Attending Dr: Ordering Physician: Yancy Jacobson Date of Service: 05/23/24 Procedure(s): XR chest 1V Accession Number(s): [id number] cc: Yancy Jacobson; Lucrecia Teixeira EXAMINATION: XR [...] 05/23/24 1258 DD/ 1237 TD/TT: 05/23/24 1240 Systems Mgr: [facility] External Provider IMG XR PROCEDURES Final Result * SARS-CoV-2 RNA, Influenza A/B, and RSV RNA, Ql NAAT (05/23/2024 12:29 PM EDT) Influenza A PCR NEGATIVE Negative [facility] Influenza B PCR NEGATIVE Negative [facility] Resp Syncy Virus RNA Qual PCR NEGATIVE Negative [facility] SARS COV2 PCR NEGATIVE Negative [facility] Comment:All test results mus t [...] use by authorized laboratories.Testing performed on the iMER GeneXpert utilizingreal-time RT-PCR.All SARS CoV2 and positive influenza A/B results arereported to [facility]. 05/23/2024 12:2 9 PM EDT 05/23/2024 12:31 PM EDT Generic External Data Provider LAB MICROBIOLOGY - GENERAL ORDERABLES Final Result [facility] [address] [place] [address] [phone] * XR Tibia Fibula 2 Views Left (05/23/2024 10:45 AM EDT) Anatomical Region Laterality Modality Lower Extremities, Lower Leg Left Rad iographic Imaging 05/23/2024 10:4 5 AM EDT Narrative 05/23/2024 11:22 AM EDT ? [facility] ?[address] ?[place] [address] ?XRay Report ? Signed ? Patient: Lori Land ?MR#: [id number] ?? [id number] ? : 1955 ?Acct:[id number] ? Age/Sex: 68 / F ?ADM Date: 05/23/24 ? Loc: HO.ED ? Attending Dr: ? Ordering Physician: Yancy Jacobson ?? Date of Service: 05/23/24 ?? Procedure(s): XR tibia fibula LT 2V ?? Accession Number(s): [id number] ? cc: Yancy Jacobson; uLcrecia Teixeira ? EXAMINATION: ?? XR TIBIA AND [...] signed by Rupesh Araya MD in OV> ?04/12/07 1119 ? DD/ 1045 ? TD/TT: 05/23/24 1105 ? Systems Mgr: ? Procedure Note Donotuseinterpreter, Image - 05/23/[address] [address] XRay Report Signed Patient: Lori LandMR#: [id number] : 7Acct:[id number] Age/Sex: 68 / FADM Date: 05/23/24 Loc: HO.ED Attending Dr: Ordering Physician: Yancy Jacobson Date of Service: 05/23/24 Procedure(s): XR tibia fibula LT 2V Accession Number(s): [id number] cc: Yancy Jacobson; Lucrecia Teixeira EXAMINATION: XR [...] 05/23/24 1119 DD/ 1045 TD/TT: 05/23/24 1105 Systems Mgr: [facility] External Provider IMG XR PROCEDURES Final Result * Gram stain (05/23/2024 10:34 AM EDT) 05/23/2024 10:3 4 AM EDT 05/23/2024 10:38 AM EDT Comment:Leg Lt Narrative [facility] - 05/27/2024 9:52 AM EDT [...] GENERAL ORDERABLES Final Result Performing Organization Address [facility] Co de Phone Number [facility] [address] [place] [phone] * (ABNORMAL) Sed Rate by Modified Stantonergren (05/23/2024 10:11 AM EDT) [facility] Erythrocyte Sedimentation Rate >140(H) 0 - 20 MM/HR [facility] Comment:Patients with polycy themia and many hemoglobin abnormalitiesmay have depressed sed rates whereas patients with anemiamay have elevated sed rates. 05/23/2024 10:1 1 AM EDT 05/23/2024 10:18 AM EDT Generic External Data Provider LAB BLOOD ORDERAB LES Final Result Performing Organization Address [facility] Co de Phone Number [facility] [address] [place] [phone] * (ABNORMAL) C-reactive Protein (05/23/2024 10:11 AM EDT) Pathologist [facility] C Reactive Protein 37.41(H) < or = 0.50 mg/dL [facility] 05/23/2024 10:1 1 AM EDT 05/23/2024 10:18 AM EDT Generic External Data Provider LAB BLOOD ORDERAB LES Final Result Performing Organization Address [facility] de Phone Number [facility] [address] [place] [phone] * Lactic Acid (05/23/2024 10:11 AM EDT) Lactic Acid 0.8 0.5 - 2.0 mmol/L [facility] 05/23/2024 10:1 1 AM EDT 05/23/2024 10:16 AM EDT Generic External Data Provider LAB BLOOD ORDERAB LES Final Result Performing Organization Address [facility] de Phone Number [facility] [address] [place] [phone] * Type and screen (05/23/2024 10:07 AM EDT) Blood Type OP [facility] Antibody Screen NEGATIVE [facility] 05/23/2024 10:0 7 AM EDT 05/23/2024 10:17 AM EDT Generic External Data Provider LAB BLOOD BANK TE ST ORDERABLES Final Result Performing Organization Address [facility] de Phone Number [facility] [address] [place] [phone] * XR Foot 3+ Views Bilateral (05/23/2024 10:00 AM EDT) Anatomical Region Laterality Modality Lower Extremities, Foot Bilateral Radiogra phic Imaging 05/23/2024 10:0 0 AM EDT Narrative 05/23/2024 11:35 AM EDT ? [facility] ?[address] ?[place] [address] ?XRay Report ? Signed ? Patient: Perera Franklin,Lori ?MR#: [id number] ?? [id number] ? : 1955 ?Acct:[id number] ? Age/Sex: 68 / F ?ADM Date: 05/23/24 ? Loc: HO.ED ? Attending Dr: ? Ordering Physician: Yancy Jacobson ?? Date of Service: 05/23/24 ?? Procedure(s): XR Foot Eugenio 3V ?? Accession Number(s): [id number] ? cc: Yancy Jacobson; Lucrecia Teixeira ? [...] signed by Rupesh Araya MD in OV> ?/12/072 ? DD/ 1000 ? TD/TT: 05/23/24 1105 ? Systems Mgr: ? Procedure Note Donalinterpreter, Image - 05/23/2024 [place] [address] XRay Report Signed Patient: Lori LandMR#: [id number] : 1955cct:[id number] Age/Sex: 68 / FADM Date: 05/23/24 Loc: HO.ED Attending Dr: Ordering Physician: Yancy Jacobson Date of Service: 05/23/24 Procedure(s): XR Foot Eugenio 3V Accession Number(s): [id number] cc: Yancy Jacobson; Lucrecia Teixeira EXAMINATION: XR [...] 05/23/24 1132 DD/ 1000 TD/TT: 05/23/24 1105 Systems Mgr: [facility] External Provider IMG XR PROCEDURES Final Result * XR Hips Bilateral with Pelvis 1 view (05/23/2024 10:00 AM EDT) Anatomical Region Laterality Modality Lower Extremities, Hip Bilateral Radiograp hic Imaging 05/23/2024 10:0 0 AM EDT Narrative 05/23/2024 11:24 AM EDT ? [facility] ?[address] ?[place] [address] ?XRay Report ? Signed ? Patient: Lori Land ?MR#: [id number] ?? [id number] ? : 1955 ?Acct:[id number] ? Age/Sex: 68 / F ?ADM Date: 04/10/25 ? Loc: HO.ED ? Attending Dr: ? Ordering Physician: Yancy Jacobson ?? Date of Service: 05/23/24 ?? Procedure(s): XR hip BI w PEL1V ?? Accession Number(s): [id number] ? cc: Yancy Jacobson; Lucrecia Teixeira ? [...] DD/ 1000 ? TD/TT: 05/23/24 1105 ? Systems Mgr: ? Procedure Note Valeria, Image - 05/23/[address] [address] XRay Report Signed Patient: Lori LandMR#: [id number] : 1955cct:[id number] Age/Sex: 68 / FADM Date: 05/23/24 Loc: HO.ED Attending Dr: Ordering Physician: Yancy Jacobson Date of Service: 05/23/24 Procedure(s): XR hip BI w PEL1V Accession Number(s): [id number] cc: Yancy Jacobson; Lucrecia Teixeira EXAMINATION: XR [...] 05/23/24 1121 DD/ 1000 TD/TT: 05/23/24 1105 Systems Mgr: [facility] External Provider IMG XR PROCEDURES Final Result * Hold Lavender - Possible Hematology (05/23/2024 9:42 AM EDT) Hold Lavender - Possible Hematololgy SEE NOTE [facility] Comment:Specimen will be hel d untested for 8 hours. Call Hematologyif testing is desired. 05/23/2024 9:42 AM EDT 05/23/2024 10:18 AM EDT Generic External Data Provider HISTORICAL/NON OR DERABLE LABS Final Result [facility] [address] [place] [phone] [phone] * HOLD LT BLUE - POSSIBLE COAG (05/23/2024 9:39 AM EDT) Hold Lt Blue - Possible Coag SEE NOTE [facility] Comment:Specimen will be hel d untested for 4 hours. Call Hematologyif testing is desired. 05/23/2024 9:39 AM EDT 05/23/2024 10:21 AM EDT us Generic External Data Provider LAB BLOOD ORDERAB LES Final Result [facility] [address] [place] [phone] [phone] * (ABNORMAL) CBC auto differential (05/23/2024 9:39 AM EDT) White Blood Count 13.9(H) 4.8 - 10.8 X10*3/uL [facility] Red Blood Count 2.48(L) 4.20 - 5.50 X10*6/uL [facility] Hemoglobin 7.4(L) 12.0 - 16.0 g/dl [facility] Hematocrit 21.6(L) 37.0 - 47.0 % [facility] Mean Corpuscular Volume 87.1 80.0 - 98.0 fL [facility] Mean Corpuscular Hemoglobin 29.8 27.0 - 33.0 pg [facility] Mean Corpuscular HGB Conc 34.3 31.0 - 35.0 g/dl [facility] Red Cell Distribution Width 19.7(H) 11.0 - 16.0 % [facility] Platelet Count TNP 160 - 400 X10*3/uL [facility] Comment:Platelet clumps note d. Platelet count will not be accurate. Mean Platelet Volume TNP 9.4 - 12.3 fL [facility] Neutrophils Percent Auto 75.3(H) 45 - 73 % [facility] Imm Gran Pct Auto 3.2(H) 0.0 - 0.4 % [facility] Lymphocytes Percent Auto 10.8(L) 20 - 40 % [facility] Monocytes Percent Auto 9.0 2 - 11 % [facility] Eosinophils Percent Auto 1.2 0 - 4 % [facility] Basophils Percent Auto 0.5 0 - 2 % [facility] NRBC Pct Auto 0.0 0.0 - 0.2 /100WBC [facility] Neutrophils Absolute Auto 10.5(H) 2.0 - 8.3 x10*3/uL [facility] Imm Gran Abs Auto 0.45(H) 0.00 - 0.03 X10*3/uL [facility] Lymphocytes Absolute Auto 1.5 1.2 - 4.9 X10*3/uL [facility] Monocytes Absolute Auto 1.3(H) 0.1 - 1.2 X10*3/uL [facility] Eosinophils Absolute Auto 0.2 0.0 - 0.4 X10*3/uL [facility] Basophils Absolute Auto 0.1 0.0 - 0.2 X10*3/uL [facility] NRBC Abs Auto 0.000 0.0 - 0.012 X10*3/uL [facility] 05/23/2024 9:39 AM EDT 05/23/2024 9:46 AM EDT us Generic External Data Provider LAB BLOOD ORDERAB LES Edited Result - Final [facility] [address] [place] [phone] documented in this encounter Visit Diagnoses Not on filedocumented in this encounter Additional Health Concerns Assessment Noted Time PHQ-9 Depression Total Score: 0 01/21/20 23 3:26 PM EST documented as of this encounter Care Teams Monogram Maker Relationship Specialty Start Date End Date Lucrecia Teixeira MD [address] [place] [phone] PCP - General Family Medicine [facility] documented as of this encounter
--- OUTSIDE RECORDS SUMMARY | 2024-05-27 16:37 | XMS_ITS | Encounter Summary ---
Author Organization [employer] Address [address] [place] [address] [address] [address] Care Team Providers Care Editing Intern Name Role Phone Lucrecia Teixeira MD Primary Care Provider [phone] Encounter Details Date Type Department Care Team ([facility] Contact Info) Description 10/21/2022 Telephone [facility] MEDICINE [address] [place] [address] [phone] Lucrecia Teixeira MD [address] [place] [address] [phone] Social History Tobacco Use Types Packs/Day Years [...] Upcoming Encounters Date Type Department Care Team ([facility] Contact Info) Description 07/15/2024 2:15 PM EDT Office Visit [facility] MEDICINE [address] [place] [phone] Lucrecia Teixeira MD [address] [place] [address] [phone] documented as of this encounter Visit Diagnoses Not on filedocumented in this encounter Care Teams Editing Intern Relationship Specialty Start Date End Date Lucrecia Teixeira MD [address] [facility] [address] PCP - General Family Medicine 07/12/22 [facility] 04/06/24 documented as of this encounter
--- OUTSIDE RECORDS SUMMARY | 2024-05-27 16:37 | XMS_ITS | Encounter Summary ---
Author Organization [employer] Address [address] [facility] [address] [place] [address] Care Team Providers Care Lmft Name Role Phone Lucrecia Teixeira MD Primary Care Provider [phone] Encounter Details Date Type Department Care Team ([facility] st Contact Info) Description 06/02/2023 Orders Only [facility] MEDICINE [address] [place], [place] [phone] Lucrecia Teixeira MD [address] [place] [address] Social History Tobacco Use Types Packs/Day Years [...] Description 07/15/2024 2:15 PM EDT Office Visit [facility] MEDICINE [address] [place] [phone] Lucrecia Teixeira MD [address] [place] [phone] documented as of this encounter Visit Diagnoses Not on filedocumented in this encounter Additional Health Concerns Assessment Noted Time PHQ-9 Depression Total Score: 0 01/21/20 23 3:26 PM EST documented as of this encounter Care Teams Lmft Relationship Specialty Start Date End Date Lucrecia Teixeira MD [address] [place] [phone] PCP - General Family Medicine 07/12/22 [facility] 04/06/24 documented as of this encounter
--- OUTSIDE RECORDS SUMMARY | 2024-05-27 16:37 | XMS_ITS | Encounter Summary ---
Author Organization [facility]. Address [address] [place] [phone] Phone Care Team Providers Care Drum Saw Operator Name Role Phone Jennifer Rico MD Primary Care Provide r Encounter Details Date Type Department Care Team ([facility] st Contact Info) Description 05/27/2024 TCM in Dialysis Clinic [facility] [address] [phone] Otilia Elizabeth MD [address] [phone] Social History Tobacco Use Types Packs/Day Years Used Date Smoking Tobacco: Never Smokeless Tobacco: Never Alcohol Use Standard Drinks/Week Comments No 0 (1 standard drink = 0.6 oz pur e alcohol) Comments Unknown Sex and Gender Information Value Date Recorded Sex Assigned at Not on file Legal Sex Female 4:55 PM EST Gender Identity Not on file Sexual Orientation Not on file documented as of this encounter Progress Notes * Otilia Elizabeth MD - 05/27/2024 12:00 AM EDT Patient: Lori Perera : 1955 Note Type: Dialysis TCM Telehealth Service Date: 05/27/2024 Telehealth encounter using audiovisual technology, performed according to state requirements. Appropriate patient consent obtained. The patient was seen for a [id number]-[id number] visit as part of Transitional Care Management services. Attending Beer Brewer: OTILIA ELIZABETH Dialysis Location: [facility] Schedule: Shift: 1 INTERACTIVE CONTACT Contact with the patient or caregiver was made or attempted within 2 business days of discharge - details in the medical record. HOSPITALIZATION SUMMARY Patient transitioned from: Hospital Patient transitioned to: Other (see comments) Admit Date: 05/04/2024 Discharge Date: 05/23/2024 Discharged info reviewed: Followed-up on or reviewed need for pending tests/treatments as noted Reason for admission: multiple serious med probs--doing poorly w wounds/calciphylaxis, dropping Hb req fusion and Heme eval, scheduled family MTG re GOC COMMENTS: multiple f/u including vasc, wound care, Heme HOME MEDICATIONS Discharge med list reviewed - changes reconciled and discussed with patient. Active treatment medication orders reviewed with changes noted. COMMENTS: on [place]jas for wounds PHYSICAL EXAM Exam not performed. DIALYSIS PRESCRIPTION Dry weight during admission reviewed - EDW decreased. CARE COORDINATION Post-discharge follow-up appointments reviewed with the patient. COMMENTS: d/w SNF re her ongoing serious me probs and all her f/u; reached out to daughter to update hr as well--she is to get back to me VISIT DIAGNOSES CPT Code 89163 - High complexity, seen within 7 days of discharge. 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
--- OUTSIDE RECORDS SUMMARY | 2024-05-27 16:37 | XMS_ITS | Encounter Summary ---
Author Organization [employer] Address [address] [place] [address] [address], [place] [address] Care Team Providers Care Atv Mechanic Name Role Phone Lucrecia Teixeira MD Primary Care Provider [phone] Reason for Visit * Reason Onset Date Comments Nurse Triage 10/21/2022 Encounter Details Date Type Department Care Team ([facility] st Contact Info) Description 10/21/2022 Telephone [facility] [address] [place] [address] Lucrecia Teixeira MD [address] [place], [place] [phone] Nurse Triage Social History Tobacco Use Types [...] PM EDT Triage call to Pt with [employer] [place] [id number] Pt daughter answered phone and Pt is not with daughter. Obtained home phone number of [phone] called [phone] answer. Call to Jennifer of [employer] Jennifer reports that Pt BP today was [...] 2:00 PM EDT Tc from Jennifer at [employer] Symptom: High Blood Pressure - Caller Reports (173/96 heart rate 83 Outcome: Schedule an urgent appointment (within 1 hour) or talk to a nurse or provider soon Reason: Getting worse The caller accepted this outcome documented in this encounter Plan of Treatment Upcoming Encounters Date Type Department Care Team (Late st Contact Info) Description 07/15/2024 2:15 PM EDT Office Visit [facility] [address] [place] [address] Lucrecia Teixeira MD [address] [place] [address] documented as of this encounter Visit Diagnoses Not on filedocumented in this encounter Care Teams Atv Mechanic Relationship Specialty Start Date End Date Lucrecia Teixeira MD [address] [place] [address] PCP - General Family Medicine 07/12/22 [facility]25 documented as of this encounter
--- OUTSIDE RECORDS SUMMARY | 2024-05-27 16:37 | XMS_ITS | Encounter Summary ---
Author Organization [employer] Address [address] [facility] 7t [place] [address] Care Team Providers Care Office Services Assistant Name Role Phone Jennifer Rico MD Primary Care Provide r Lucrecia Teixeira MD Primary Care Provider [phone] Encounter Details Date Type Department Care Team ([facility] st Contact Info) Description 04/13/2022 Orders Only [facility] [address] [place] [address] Lucrecia Teixeira MD [address] [place] [address] Type 2 diabetes mellitus with peripheral angiopathy [...] PM EDT Office Visit [facility] [address] [place] [address] Lucrecia Teixeira MD [address] [place] [address] documented as of this encounter Visit Diagnoses Diagnosis Type 2 diabetes mellitus with peripheral angiopathy (CMS/HCC)- Primary documented in this encounter Care Teams Office Services Assistant Relationship Specialty Start Date End Date Jennifer Rico MD [address] [place] [phone] PCP - General Family Medicine 12/05/18 07/11/22 Lucrecia Teixeira MD [address] [place] [phone] PCP - General Family Medicine 07/12/22 [facility] 04/06/24 documented as of this encounter
--- OUTSIDE RECORDS SUMMARY | 2024-05-27 16:37 | XMS_ITS | Encounter Summary ---
Author Organization [employer] Address [address] [facility] 7 [place] [address] Care Team Providers Care Private Investigator Name Role Phone Lucrecia Teixeira MD Primary Care Provider [phone] Reason for Visit * Reason Onset Date Comments Referral 2022 Encounter Details Date Type Department Care Team ([facility] Contact Info) Description 2022 Telephone [facility] [address] [place] [address] Lucrecia Teixeira MD [address] [place] [address] Referral Social History Tobacco Use Types Packs/Day [...] - 2022 12:56 PM EDT Tc from [facility] with [facility] requesting a [facility] referral. States pt seems interested. Any questions, contact [facility] at [phone] ext [phone] documented in this encounter Plan of Treatment Upcoming Encounters Date Type Department Care Team (Late st Contact Info) Description 07/15/2024 2:15 PM EDT Office Visit [facility] [address] [place] [address] Lucrecia Teixeira MD [address] [place] [address] documented as of this encounter Visit Diagnoses Not on filedocumented in this encounter Care Teams Private Investigator Relationship Specialty Start Date End Date Lucrecia Teixeira MD [address] [place] [address] PCP - General Family Medicine 07/12/22 [facility] 04/06/24 documented as of this encounter
--- OUTSIDE RECORDS SUMMARY | 2024-05-27 16:37 | XMS_ITS | Encounter Summary ---
Author Organization [employer] Address [address] [place] [address] 7 [place] [address] Care Team Providers Care Community Health Planning Director Name Role Phone Lucrecia Teixeira MD Primary Care Provider [phone] Encounter Details Date Type Department Care Team ([facility] Contact Info) Description 08/11/2022 Abstract [facility] [address] [place] [address] Lucrecia Teixeira MD [address] [place] [address] Social History Tobacco Use Types Packs/Day Years [...] Upcoming Encounters Date Type Department Care Team ([facility] Contact Info) Description 07/15/2024 2:15 PM EDT Office Visit [facility] [address] [place] [address] Lucrecia Teixeira MD [address] [place] [address] documented as of this encounter Visit Diagnoses Not on filedocumented in this encounter Care Teams Community Health Planning Director Relationship Specialty Start Date End Date Lucrecia Teixeira MD [address] [place] [address] PCP - General Family Medicine 07/12/22 [facility] 04/06/24 documented as of this encounter
--- OUTSIDE RECORDS SUMMARY | 2024-05-27 16:37 | XMS_ITS | Encounter Summary ---
Author Organization [employer] Address [address] [facility] 7t [place] [address] Care Team Providers Care First Aid Director Name Role Phone Lucrecia Teixeira MD Primary Care Provider [phone] Reason for Visit * Reason Comments Med Refill Encounter Details Date Type Department Care Team ([facility] st Contact Info) Description 06/13/2023 Refill [facility] [address] [place] [address] Lucrecia Teixeira MD [address] [place] [address] Type 2 diabetes mellitus with stage 3 [...] Description 07/15/2024 2:15 PM EDT Office Visit [facility] MED[facility]INE [address] [place] [address] Lucrecia Teixeira MD [address] [place] [address] documented as of this encounter Visit Diagnoses Diagnosis Type 2 diabetes mellitus with stage 3 chronic kidney disease, with long-term current use of insulin, unspecified whether stage 3a or 3b CKD (CMS/HCC) documented in this encounter Additional Health Concerns Assessment Noted Time PHQ-9 Depression Total Score: 0 01/21/20 23 3:26 PM EST documented as of this encounter Care Teams First Aid Director Relationship Specialty Start Date End Date Lucrecia Teixeira MD [address] [place] [address] PCP - General Family Medicine 07/12/22 [facility] 04/06/24 documented as of this encounter
--- OUTSIDE RECORDS SUMMARY | 2024-05-27 16:37 | XMS_ITS | Encounter Summary ---
Author Organization [facility] Address [address] [place] [phone] Phone Care Team Providers Care Control Room Agent Name Role Phone Jennifer Rico MD Primary Care Provide r Encounter Details Date Type Department Care Team ([facility] st Contact Info) Description 05/27/2024 Treatment [facility]. [address] [phone] Otilia Elizabeth MD [address] [phone] End stage renal disease; Dependence on renal dialysis Social History Tobacco Use Types Packs/Day Years [...] on file documented as of this encounter Miscellaneous Notes * Dialysis Note - Otilia Elizabeth MD - 05/27/2024 12:00 AM EDT BASIC NOTE Patient: Lori Barrientos Trever : 1955 Note Author: OTILIA ELIZABETH MD Service Date: 05/27/2024 Telehealth encounter using audiovisual technology, performed according to state requirements. Appropriate patient consent obtained. This patient was personally seen for a basic visit as part of routine monthly dialysis care for end stage renal disease. Attending Treatment Counselor: OTILIA ELIZABETH Dialysis Location: DIALYSIS Schedule: Shift: ADEQUACY ASSESSMENT Kt/V, Natural Log 1.02 (05/24/24) 1.41 (04/19/24) UREA REDUCTION RATIO (%) 60 (05/24/24) 72 (04/19/24) BUN 40 (05/24/24) 74 (04/19/24) 65 (04/12/24) BUN Post Dialysis 16 (05/24/24) 21 (04/19/24) Creatinine 4.42 (05/24/24) 4.76 (04/19/24) 4.68 (04/12/24) Bicarbonate (CO2) 15 (05/24/24) 16 (04/19/24) 22 (04/12/24) Sodium 143 (05/24/24) 140 (04/19/24) 135 (04/12/24) ANEMIA ASSESSMENT Hgb 7.2 (05/24/24) 5.8 (05/03/24) 7.9 (04/19/24) Iron Saturation (TSat) 47 (05/24/24) 39 (04/19/24) 50 (04/12/24) Ferritin 1,238 (05/24/24) 564 (04/19/24) 605 (04/12/24) Iron 62 (05/24/24) 53 (04/19/24) 72 (04/12/24) TIBC 132 (05/24/24) 136 (04/19/24) 143 (04/12/24) MCV 95.1 (05/24/24) 96.5 (04/19/24) 95.4 (04/12/24) Platelets 174 (05/24/24) 174 (04/19/24) 208 (04/12/24) BMM ASSESSMENT Calcium, Adjusted Total 9.1 05/24/24 8.1 04/19/24 8.1 04/12/24 Calcium 8.3 05/24/24 7.5 04/19/24 7.5 04/12/24 Phosphorus, Serum 4.2 05/24/24 6.8 04/19/24 6.7 04/12/24 Ca*PO4 34.9 05/24/24 51.0 04/19/24 50.2 04/12/24 PTH, Intact 240 05/24/24 266 04/12/24 Vitamin D, 25-Hydroxy 25 04/12/24 Magnesium 1.9 05/24/24 1.6 04/19/24 1.9 04/12/24 Alkaline Phosphatase 109 05/24/24 131 04/19/24 144 04/12/24 Aluminum 11 04/12/24 NUTRITION ASSESSMENT Albumin 3.0 05/24/24 3.2 04/19/24 3.2 04/12/24 Potassium 4.2 05/24/24 4.4 04/19/24 4.4 04/12/24 Hemoglobin A1C 5.6 05/24/24 5.7 04/12/24 ADDITIONAL LABS White Blood Cells 15.1 (05/24/24) 13.1 (04/19/24) 10.9 (04/12/24) Cholesterol 116 (05/24/24) 105 (04/12/24) HDL 25 (05/24/24) 30 (04/12/24) LDL-Calc 48 (05/24/24) 41 (04/12/24) Triglycerides 217 (05/24/24) 169 (04/12/24) Hep B Surface Antibody 5 (04/12/24) NONREACTIVE (03/22/24) Uric Acid 6.4 (04/12/24) ADDITIONAL COMMENT COMMENTS: 04/29/24 cont to have difficulty adj to dialysis w mult complaints all over 05/27/24 Doing poorly, getting STS for calciphylaxis, requiring fusions, scheduled family MTG Signed by: OTILIA ELIZABETH MD on 05/27/2024 at 08:58:16 AM Transcribed by: OTILIA ELIZABETH MD on 05/27/2024 at 08:58:16 AM documented in this encounter Plan of Treatment Not on file documented as of this encounter Visit Diagnoses Diagnosis End stage renal disease Dependence on renal dialysis documented in this encounter Care Teams Control Room Agent Relationship Specialty Start Date End Date Jennifer Rico MD [address] [place] [phone] PCP - General Internal Medicine 12/13/21 documented as of this encounter
--- OUTSIDE RECORDS SUMMARY | 2024-05-27 16:37 | XMS_ITS | Clinical Summary ---
Author Organization [facility] Address [address] [place] [address] [place] [address] Phone Care Team Providers Care Anesthesiology Physician Name Role Phone Jennifer Rico MD Primary [...] - Spoke with patient via interpretation with [employer] interpre[employer] at 7pm, she had just laid [...] pain Chronic kidney disease stage 3 03/24/2022 [id number] renal failure 01/31/2022 0 09/15/2022 Overview (09/15/2022): [...] Encounters Date Type Department Care Team Description 05/27/2024 TCM in Dialysis Clinic [facility] [address] [place] [phone] Hernan Meehan MD 05/27/2024 Treatment [facility] [address] [address] Hernan Meehan MD End stage renal disease; Dependence on renal dialysis 04/29/2024 Treatment [facility] [address] [address] Hernan Meehan MD End stage renal disease; Dependence on renal dialysis 04/19/2024 Treatment [facility] [address] [address] Hernan Meehan MD End stage renal disease; [...] - PCV) 05/10/2020 05/11/2019 Diabetes: Hemoglobin A1C 08/23/2024 025, 04/12/2024, 12/13/2023, Additional history exists Influenza Vaccine (Season Ended) 2024 Pneumococcal Vaccine: Peds ( 0 to 5 Years) and At-Risk Patients (6 to 49 Years) Discontinued 05/11/2019 Procedures Procedure Name Priority Date/Time Associated Diagnosis Comments HEPATITIS B SURFACE ANTIGEN W/REFL CONFIRM Routine 05/24/2024 3:00 AM EDT FERRITIN Routine 05/24/2024 3:00 AM EDT TRANSFERRIN SATURATION Routine 3:00 AM EDT PROTEIN, TOTAL, SERUM Routine 05/24/2024 3:00 AM EDT MAGNESIUM Routine 05/24/2024 3:00 AM EDT ELECTROLYTE PANEL Routine 05/24/2024 3:0 0 AM EDT LIH (HC) Routine 05/24/2024 3:00 AM EDT LIPID PANEL Routine 05/24/2024 3:00 AM EDT GLUCOSE, RANDOM Routine 05/24/2024 3:00 AM EDT LACTATE DEHYDROGENASE Routine 05/24/2024 3:00 AM EDT AST Routine 05/24/2024 3:00 AM EDT CREATININE, SERUM Routine 05/24/2024 3:0 0 AM EDT BILIRUBIN, TOTAL Routine 05/24/2024 3:00 AM EDT ALKALINE PHOSPHATASE Routine 05/24/2024 3:00 AM EDT ALT Routine 05/24/2024 3:00 AM EDT CALCIUM PHOSPHORUS PRODUCT, ADJUSTED (HC) Routine 05/24/2024 3:00 AM EDT PTH, INTACT Routine 05/24/2024 3:00 AM EDT HEMOGLOBIN A1C Routine 05/24/2024 3:00 AM EDT CBC AND DIFFERENTIAL Routine 05/24/2024 3:00 AM EDT KT/V NATURAL LOG, URR (HC) Routine 05/24/2024 3:00 AM EDT HEMOGLOBIN AND HEMATOCRIT, BLOOD Routine 05/03/2024 3:00 [...] EST from Last 3 Months Results * LIH (05/24/2024 3:00 AM EDT) Only the most recent of3 resultswithin the time period is included. Lipemia Normal Normal [facility] Icterus Normal Normal [facility] Hemolysis Normal Normal [facility] 05/24/2024 3:00 AM EDT 05/25/2024 2:20 PM EDT Hernan Meehan MD LAB [id number] SOLICITED RESULTS Final Result Performing Organization Address [facility] de Phone Number APS [facility] [address] [place] [address] * (ABNORMAL) Kt/V Natural Log, URR (05/24/2024 3:00 AM EDT) Only the most recent of3 resultswithin the time period is included. Treatment Time 232 min [facility] Pre-Weight, lb 95.4 kg [facility] Post-Weight, lb 94.7 kg [facility] Ultrafiltration Rate 2 <=13 mL/kg/hr [facility] Comment: Recommend achieving Ultrafiltration Rate (UFR) <=10 mL/kg/hr References: Rodríguez ROSAS et al. Kidney Int. 2010; 79(2):250-257 BUN Post Dialysis 16 7 - 25 mg/dL [facility] BUN 40(H) 7 - 25 mg/dL [facility] UREA REDUCTION RATIO (%) 60(L) >=65 % [facility] Kt/V Natural Log 1.02(L) >=1.2 [facility] 05/24/2024 3:00 AM EDT 05/25/2024 2:20 PM EDT us Hernan Meehan MD LAB [id number] SOLICITED RESULTS Final Result Performing Organization Address City/[facility]/ZIP Co de Phone Number [facility] [address] [place] [address] * (ABNORMAL) Calcium Phosphorus Product, Adjusted (05/24/2024 3:00 AM EDT) Only the most recent of3 resultswithin the time period is included. Pathologist [facility] Albumin 3.0(L) 3.6 - 5.4 g/dL [facility] Calcium 8.3(L) 8.6 - 10.3 mg/dL [facility] Phosphorus, Serum 4.2 2.5 - 5.0 mg/dL [facility] Ca*PO4 34.9 <55.0 mg2/dL2 [facility] Calcium, Adjusted Total 9.1 8.6 - 10.3 mg/dL [facility] CA*PO4 CORRCTD 38.2 <55.0 mg2/dL2 [facility] 05/24/2024 3:00 AM EDT 05/25/2024 2:20 PM EDT Hernan Meehan MD LAB [id number] SOLICITED RESULTS Final Result Performing Organization Address City/[facility]/ZIP Co de Phone Number [facility] [address] [place] [address] * Hepatitis B Surface Ag w/Reflex Confirmation (05/24/2024 3:00 AM EDT) Only the most recent of3 resultswithin the time period is included. [facility] Hep B Surface Antigen Negative Negative [facility] 05/24/2024 3:00 AM EDT 05/25/2024 2:20 PM EDT Hernan Meehan MD LAB BLOOD ORDERABLES Final Re sult [facility] [address] [place] [address] * (ABNORMAL) TSAT (05/24/2024 3:00 AM EDT) Only the most recent of3 resultswithin the time period is included. Pathologist [facility] Iron 62 50 - 170 ug/dL [facility] Transferrin 94(L) 250 - 380 mg/dL [facility] TIBC 132(L) 211 - 406 ug/dL [facility] Iron Saturation (TSat) 47 22 - 52 % [facility] 05/24/2024 3:00 AM EDT 05/25/2024 2:20 PM EDT Hernan Meehan MD LAB BLOOD ORDERABLES Final Re sult Performing Organization Address City/[facility]/ZIP Co de Phone Number [facility] [address] [place] [address] * (ABNORMAL) CBC and Differential (05/24/2024 3:00 AM EDT) Only the most recent of3 resultswithin the time period is included. DIFFERENTIAL MANUAL, 2 Not Indicated [facility] White Blood Cells 15.1(H) 4.0 - 10.0 K/uL [facility] RBC 2.46(L) 3.93 - 5.22 M/uL [facility] Hgb 7.2(L) 11.2 - 15.7 g/dL [facility] Hemoglobin x 3 21.6(L) 33.6 - 47.1 g/dL [facility] Hematocrit 23.4(L) 34.1 - 44.9 % [facility] MCV 95.1(H) 79.4 - 94.8 fL [facility] MCH 29.3 25.6 - 32.2 pg [facility] MCHC 30.8(L) 32.2 - 35.5 g/dL [facility] Platelets 174(L) 182 - 369 K/uL [facility] RDW 20.0(H) 11.7 - 14.4 % [facility] Neutrophils Relative 68.6 34.0 - 71.1 % [facility] Lymphocytes Relative 15.9(L) 19.3 - 51.7 % [facility] Monocytes 8.6 4.7 - 12.5 % [facility] Eosinophils Relative 2.3 0.7 - 5.8 % [facility] Basophils Relative 0.8 0.1 - 1.2 % [facility] Immature Granulocytes 3.8(H) 0.0 - 1.0 % [facility] 05/24/2024 3:00 AM EDT 05/25/2024 2:33 PM EDT Hernan Meehan MD LAB BLOOD ORDERABLES Final Re sult [facility] [address] [place] [address] * ALT (05/24/2024 3:00 AM EDT) Only the most recent of3 resultswithin the time period is included. ALT (SGPT) 14 10 - 49 U/L [facility] 05/24/2024 3:00 AM EDT 05/25/2024 2:20 PM EDT Hernan Meehan MD LAB BLOOD ORDERABLES Final Re sult Performing Organization Address [facility] de Phone Number [facility] [address] [place] [address] * AST (05/24/2024 3:00 AM EDT) Only the most recent of3 resultswithin the time period is included. AST (SGOT) 23 <34 U/L [facility] 05/24/2024 3:00 AM EDT 05/25/2024 2:20 PM EDT Hernan Meehan MD LAB BLOOD ORDERABLES Final Re sult Performing Organization Address [facility] de Phone Number [facility] [address] [place] [address] * (ABNORMAL) Protein, total (05/24/2024 3:00 AM EDT) Only the most recent of3 resultswithin the time period is included. Total Protein 6.2(L) 6.4 - 8.9 g/dL [facility] 05/24/2024 3:00 AM EDT 05/25/2024 2:20 PM EDT Hernan Meehan MD LAB BLOOD ORDERABLES Final Re sult Performing Organization Address [facility] Co de Phone Number [facility] [address] [place] [address] * Alkaline phosphatase (05/24/2024 3:00 AM EDT) Only the most recent of3 resultswithin the time period is included. Alkaline Phosphatase 109 46 - 116 U/L [facility] 05/24/2024 3:00 AM EDT 05/25/2024 2:20 PM EDT Hernan Meehan MD LAB BLOOD ORDERABLES Final Re sult Performing Organization Address [facility] Co de Phone Number [facility] [address] [place] [address] * PTH, Intact (05/24/2024 3:00 AM EDT) Only the most recent of2 resultswithin the time period is included. PTH, Intact 240 160 - 721 pg/mL [facility] Comment: Suggested (KDIGO) ESRD maintenance range is two to nine times the upper normal limit (80.1 pg/mL) for the laboratory. 05/24/2024 3:00 AM EDT 05/25/2024 2:20 PM EDT Hernan Meehan MD LAB BLOOD ORDERABLES Final Re sult Performing Organization Address [facility] de Phone Number [facility] [address] [place] [address] * Magnesium (05/24/2024 3:00 AM EDT) Only the most recent of3 resultswithin the time period is included. Magnesium 1.9 1.9 - 2.7 mg/dL [facility] 05/24/2024 3:00 AM EDT 05/25/2024 2:20 PM EDT Hernan Meehan MD LAB BLOOD ORDERABLES Final Re sult Performing Organization Address [facility] de Phone Number [facility] [address] [place] [address] * (ABNORMAL) Lactate dehydrogenase (05/24/2024 3:00 AM EDT) Only the most recent of3 resultswithin the time period is included. LDH 275(H) 120 - 246 U/L [facility] 05/24/2024 3:00 AM EDT 05/25/2024 2:20 PM EDT Hernan Meehan MD LAB BLOOD ORDERABLES Final Re sult Performing Organization Address [facility] de Phone Number [facility] [address] [place] [address] * Hemoglobin A1c (05/24/2024 3:00 AM EDT) Only the most recent of2 resultswithin the time period is included. Hemoglobin A1C 5.6 <5.7 % [facility] Comment: Methodology: Enzymatic HbA1c (NGSP %) ?Suggested Diagnosis >6.4% ? Diabetic 5.7-6.4% ?Pre-Diabetic <5.7% ? Non-Diabetic Diabetic Glucose Control Evaluation: Therapeutic action suggested at >8.0% ADA recommends a glycemic goal of <7.0% 05/24/2024 3:00 AM EDT 05/25/2024 2:33 PM EDT Hernan Meehan MD LAB BLOOD ORDERABLES Final Re sult Performing Organization Address [facility] de Phone Number [facility] [address] [place] [address] * Glucose, random (05/24/2024 3:00 AM EDT) Only the most recent of3 resultswithin the time period is included. Glucose 83 74 - 109 mg/dL [facility] 05/24/2024 3:00 AM EDT 05/25/2024 2:20 PM EDT Hernan Meehan MD LAB BLOOD ORDERABLES Final Re sult Performing Organization Address [facility] de Phone Number [facility] [address] [place] [address] * (ABNORMAL) Ferritin (05/24/2024 3:00 AM EDT) Only the most recent of3 resultswithin the time period is included. Ferritin 1,238(H) 10 - 291 ng/mL [facility] 05/24/2024 3:00 AM EDT 05/25/2024 2:20 PM EDT Hernan Meehan MD LAB BLOOD ORDERABLES Final Re sult Performing Organization Address [facility]/ZIP Co de Phone Number [facility] [address] [place] [address] * (ABNORMAL) Creatinine, serum (05/24/2024 3:00 AM EDT) Only the most recent of3 resultswithin the time period is included. Creatinine 4.42(H) 0.55 - 1.02 mg/dL [facility] 05/24/2024 3:00 AM EDT 05/25/2024 2:20 PM EDT Hernan Meehan MD LAB BLOOD ORDERABLES Final Re sult Performing Organization Address [facility] Co de Phone Number [facility] [address] [place] [address] * (ABNORMAL) Bilirubin, total (05/24/2024 3:00 AM EDT) Only the most recent of3 resultswithin the time period is included. Total Bilirubin <0.2(L) 0.3 - 1.2 mg/dL [facility] 05/24/2024 3:00 AM EDT 05/25/2024 2:20 PM EDT Hernan Meehan MD LAB BLOOD ORDERABLES Final Re sult Performing Organization Address [facility] Co de Phone Number [facility] [address] [place] [address] * (ABNORMAL) Lipid panel (05/24/2024 3:00 AM EDT) Only the most recent of2 resultswithin the time period is included. Cholesterol 116 <200 mg/dL [facility] Comment: Optimal: ?<200 Borderline: ? 200-239 High Risk: ?>239 Triglycerides 217(A) <150 mg/dL [facility] Comment: Optimal: ?<150 Borderline High: ??150-199 High: ? 200-499 Very High: ?>499 HDL 25(A) >59 mg/dL [facility] Comment: Optimal: >59 High Risk: <40 LDL-Calc 48 <100 mg/dL [facility] Comment: Optimal: ?<100 Above Optimal: ?100-129 Borderline High: ??130-159 High: ? 160-189 Very High: ?>189 VLDL Cholesterol [place] 43(A) <30 mg/dL [facility] Comment: Optimal: ?<30 Borderline High: ??30-39 High: ? 40-99 Very High: ?>99 Chol/HDL Ratio 4.6(A) <3.3 [facility] Comment: Optimal: ?<3.3 High Risk: ?>6.2 05/24/2024 3:00 AM EDT 05/25/2024 2:20 PM EDT us Hernan Meehan MD LAB BLOOD ORDERABLES Final Re sult [facility] [address] [place] [address] * (ABNORMAL) Electrolyte panel (05/24/2024 3:00 AM EDT) Only the most recent of3 resultswithin the time period is included. Sodium 143 136 - 145 mEq/L [facility] Potassium 4.2 3.4 - 5.0 mEq/L [facility] Chloride 107 98 - 107 mEq/L [facility] Bicarbonate (CO2) 15(L) 21 - 31 mEq/L [facility] Anion Gap 21(H) 3 - 14 mEq/L [facility] 05/24/2024 3:00 AM EDT 05/25/2024 2:20 PM EDT Hernan Meehan MD LAB BLOOD ORDERABLES Final Re sult Performing Organization Address [facility] de Phone Number [facility] [address] [place] [address] * (ABNORMAL) Hemoglobin and hematocrit (05/03/2024 3:00 [...] 3:00 AM EDT 05/04/2024 1:12 PM EDT Hernan Meehan MD LAB BLOOD ORDERABLES Final Re sult Performing Organization Address [facility] de Phone Number [facility] [address] [place] [address] * Confirmation Test HCV (04/12/2024 3:00 AM EST) Hep C Ab Confirmation Not needed [facility] 04/12/2024 3:00 AM EST 04/13/2024 1:31 PM EST Hernan Meehan MD LAB BLOOD ORDERABLES Final Re sult Performing Organization Address [facility] de Phone Number [facility] [address] [place] [address] * HEPATITIS C ABS W/REFLEX RNA DETECTR (04/12/2024 3:00 AM EST) [facility] Hep C Virus Ab Non-Reacti ve Non-Reacti ve [facility] 04/12/2024 3:00 AM EST 04/13/2024 1:30 PM EST Hernan Meehan MD LAB [id number] SOLICITED RESULTS Final Result Performing Organization Address [facility] de Phone Number [facility] [address] [place] [address] * Hepatitis B Core Antibody, Total (04/12/2024 3:00 AM EST) [facility] HBc Total Ab, S Negative Negative [facility] 04/12/2024 3:00 AM EST 04/13/2024 1:30 PM EST Hernan Meehan MD LAB BLOOD ORDERABLES Final Re sult Performing Organization Address [facility] de Phone Number [facility] [address] [place] [address] * Aluminum level (04/12/2024 3:00 AM EST) [facility] Aluminum 11 1 - 20 ug/L [facility] 04/12/2024 3:00 AM EST 04/13/2024 1:32 PM EST Hernan Meehan MD LAB BLOOD ORDERABLES Final Re sult Performing Organization Address [facility] de Phone Number [facility] [address] [place] [address] * Vitamin D 25 Hydroxy (04/12/2024 3:00 AM EST) [facility] Vitamin D, 25-Hydroxy 25 30 - 100 ng/mL [facility] Comment: Status ? Adult ?? Pediatric Deficient: ? <20 ? <15 Insufficient: ??20-29 ?? 15-19 Sufficient: ?30-100 ??20-100 04/12/2024 3:00 AM EST 04/13/2024 1:30 PM EST us Hernan Meehan MD LAB BLOOD ORDERABLES Final Re sult Performing Organization Address [facility] de Phone Number [facility] [address] [place] [address] * (ABNORMAL) Hepatitis B Surface Antibody (04/12/2024 3:00 AM EST) Hep B Surface Antibody 5(A) mIU/mL [facility] Comment: Interpretation: <10: No Immunity >=10: Probable Immunity 04/12/2024 3:00 AM EST 04/13/2024 1:30 PM EST Hernan Meehan MD LAB BLOOD ORDERABLES Final Re sult Performing Organization Address [facility] de Phone Number [facility] [address] [place] [address] * Uric Acid (04/12/2024 3:00 AM EST) Uric Acid 6.4 2.3 - 6.6 mg/dL [facility] 04/12/2024 3:00 AM EST 04/13/2024 1:30 PM EST Hernan Meehan MD LAB BLOOD ORDERABLES Final Re sult Performing Organization Address [facility] de Phone Number [facility] [address] [place] [address] * Hepatitis B Profile (03/22/2024 3:08 PM EST) Hep B Surface Antibody NONREACTIVE Nonreactive See order comments Comment:Nonreactive: < 8.00 mIU/mL Hep B Core Total Ab Nonreactive Nonreactive See order comments Hep B Surface Antigen Negative Negative See order comments 03/22/2024 3:08 PM EST 03/22/2024 3:08 PM EST us Trent Mac MD LAB BLOOD ORDERABLES Final Resu lt ELLA See order comments [place] [address] from Last 3 Months Insurance Medicare [place] Sub[place] Plan / Payer (Ef fective 2023-) Name:Lori Perera Iliana Relation to Subscriber:Self Name:Lori Perera Iliana Payer ID:Not on file Group ID:Not on file Type:Not on file Address: [address] Medicare [place] [address] Care Teams Anesthesiology Physician Relationship Specialty Start Date End Date Jennifer Rico MD [address] [place] [address] [place] [phone] PCP - General Internal Medicine 12/13/21
--- OUTSIDE RECORDS SUMMARY | 2024-05-27 16:37 | XMS_ITS | Encounter Summary ---
Author Organization [employer] Address [address] [place] [address] [address] [place] [address] Care Team Providers Care Director Medical Economics Name Role Phone Lucrecia Teixeira MD Primary Care Provider [phone] Reason for Visit * Reason Onset Date Comments Med Refill 04/17/2024 Encounter Details Date Type Department Care Team ([facility] st Contact Info) Description 04/17/2024 Refill [facility] [address] [place] [address] Lurcecia Teixeira MD [address] [place] [address] Essential hypertension; Cardiorenal syndrome with renal failure [...] EDT Office Visit [facility] [address] [place] [address] Lucrecia Teixeira MD [address] [place] [address] documented as of this encounter Visit Diagnoses [...] documented as of this encounter Care Teams Director Medical Economics Relationship Specialty Start Date End Date Lucrecia Teixeira MD [address] [place] [address] PCP - General Family Medicine 07/12/22 [facility] 04/06/24 documented as of this encounter
--- OUTSIDE RECORDS SUMMARY | 2024-05-27 16:37 | XMS_ITS | Encounter Summary ---
Author Organization [employer] Address [address] [facility] [address] [place] [address] Care Team Providers Care Traveling Clerk Name Role Phone Jennifer Rico MD Primary Care Provide r Lucrecia Teixeira MD Primary Care Provider Reason for Visit * Reason Onset Date Comments triage 02/11/2022 Encounter Details Date Type Department Care Team ([facility] st Contact Info) Description 02/11/2022 Telephone [facility] [address] [place] [address] Jennifer Rico MD [address] [place], [place] [phone] triage Social History Tobacco Use Types Packs/Day [...] 02/11/2022 5:11 PM EST Triage call with [place] [employer] [place] [id number] Pt is reporting dry cough is coming [...] use cough drops. Pt may come to [facility] 02/15 if has gotten worse and Pt [...] 07/15/2024 2:15 PM EDT Office Visit [facility] [address] [place] [address] Lucrecia Teixeira MD [address] [place] [address] documented as of this encounter Visit Diagnoses Not on filedocumented in this encounter Care Teams Traveling Clerk Relationship Specialty Start Date End Date Barciona Ibrahim, Blank, MD [address] [place] [address] PCP - General Family Medicine 12/05/18 07/11/22 Lucrecia Teixeira MD [address] [place] [address] PCP - General Family Medicine 07/12/22 [facility] 04/[facility]24 documented as of this encounter
--- NOTE | 2024-05-27 17:13 | PHA.MEDREC ---
Pharmacy Consult ? Medication Reconciliation Pharmacy has completed the medication reconciliation. Tried to speak to Patient through office administrator service, however patient was asleep and wouldn't wake up. Called patients daughter Manuel through office administrator service and she stated that there are no changes to patients medications since last discharge from 05/22/24. Utilized discharge packet to confirm med list.
--- NOTE | 2024-05-27 18:56 | PHA.MEDREC ---
Addendum entered by Lauri Arriola RPh 05/27/24 20:07: [facility] no vanco or retacrit on list but added as she was discharged on them 05/22 Original Note: Pharmacy Consult ? Medication Reconciliation Pharmacy has completed the medication reconciliation. Utilized list from [facility] to confirm med list.
--- NOTE | 2024-05-27 19:21 | PM.EVENT ---
Event Note Date of Service: 05/27/24 Event Note: Colonoscopy with decompression of sigmoid volvulus and placement of a rectal tube-Full note dictated Findings: 1. Twist with puckering seen at approx 30 or 40cm-easily passed with insufflation of air and gentle pressure. Colon above this was quite distended with air. Scope advanced into probably the transverse colon. Suctioned a lot of air--there was really no stool or liquid. Colonic mucosa WNL without any ischemic changes noted. No polyps, no masses. Abdominal exam was greatly improved with no further distention or tenderness afterwards. 2. I was able to advance a rectal tube to about 50cm and then leave in place. This seemed to be draining air into the bag Rec: Observe. NPO except ice, meds, and sips. F/U abdominal xray and labs in the AM. If volvulus recurs he will need surgery. If things remain stable then advance diet as per surgery and start a bowel regimen with Miralax,etc. D/W Dr. Harrison and he will be followed by the surgical service. Thanks Time Spent With Patient Time: Total time managing care of this patient today ____ minutes.
--- NOTE | 2024-05-27 20:18 | PC.NURSE ---
Wounds on R hip, R heel, L 5th toe,L calf, L thigh all dressed w/ available wound care items. Meplex placed on coccyx for protection.
--- NOTE | 2024-05-27 21:00 | PC.NURSE ---
pt transferred to inpatient unit escorted on continuous telemetry monitoring by this RN and transport medic Noel
[2024-05-27] MEDS: traMADoL HCL 50 MG TABLET 25 MG PO (22:52)
[2024-05-27] MEDS: Melatonin 3 MG TABLET 6 MG PO (22:53)
[2024-05-27 23:58] LABS: Hematocrit 22.2 % (37.0-47.0); Hemoglobin 7.3 g/dl (12.0-16.0)
[2024-05-28] VITALS (12 sets, daily range): BP systolic 131–180; BP diastolic 57–78; PULSE 83–99; RESP 18–20; TEMP 36.1–37.6; O2SAT 96–100
[2024-05-28] MEDS: 0.9 % Sodium Chloride Flush 3 ML SYRINGE IVFLUSH ×4 (00:15→20:34)
[2024-05-28] MEDS: Acetaminophen 325 MG TABLET 650 MG PO ×2 (05:37→14:14)
[2024-05-28] MEDS: traMADoL HCL 50 MG TABLET 25 MG PO ×2 (05:37→12:08)
[2024-05-28 07:51] LABS: MANUAL DIFF FLAG NO
[2024-05-28 08:00] LABS: Basophils Absolute Auto 0.1 X10*3/uL (0.0-0.2); Basophils Percent Auto 0.9 % (0-2); Eosinophils Absolute Auto 0.3 X10*3/uL (0.0-0.4); Eosinophils Percent Auto 1.9 % (0-4); Imm Gran Abs Auto 0.58 X10*3/uL (0.00-0.03); Imm Gran Pct Auto 4.5 % (0.0-0.4); Lymphocytes Absolute Auto 1.2 X10*3/uL (1.2-4.9); Lymphocytes Percent Auto 8.9 % (20-40); Mean Corpuscular HGB Conc 32.7 g/dl (31.0-35.0); Mean Corpuscular Hemoglobin 28.3 pg (27.0-33.0); Mean Corpuscular Volume 86.7 fL (80.0-98.0); Mean Platelet Volume 11.9 fL (9.4-12.3); Monocytes Absolute Auto 1.1 X10*3/uL (0.1-1.2); Monocytes Percent Auto 8.9 % (2-11); Neutrophils Absolute Auto 9.6 x10*3/uL (2.0-8.3); Neutrophils Percent Auto 74.9 % (45-73); Red Cell Distribution Width 21.2 % (11.0-16.0); White Blood Count 12.9 X10*3/uL (4.8-10.8)
[2024-05-28 08:32] LABS: Hematocrit 20.8 % (37.0-47.0); Hemoglobin 6.8 g/dl (12.0-16.0)
[2024-05-28 08:51] LABS: Anion Gap 21 (12-20); Blood Urea Nitrogen 33 mg/dL (9-16); Calcium 7.7 mg/dL (8.4-10.2); Carbon Dioxide 18 mmol/L (22-29); Chloride 106 mmol/L (96-108); Creatinine Clr Calc Pharmacy 14.4; Estimated Glomerular Filt Rate 11; Glucose Random 97 mg/dL (60-115); Potassium 3.2 mmol/L (3.3-5.1); Sodium 142 mmol/L (135-145)
--- NOTE | 2024-05-28 09:16 | P.PNIM_ITS ---
Subjective Subjective Date of Service: 05/28/24 Review of Systems Follow up anemia Cries out for her daughter, chronic no c/o pain Physical Exam 2 Vital Signs: Vital Signs: Last Vital Signs Temp 98.0 F 05/28/24 07:21 Pulse 89 05/28/24 07:21 Resp 20 05/28/24 07:21 BP 131/57 L 05/28/24 07:21 Pulse Ox 96 05/28/24 07:21 O2 Del Method Room Air 05/28/24 07:21 BMI result Body Mass Index 40.3 Appearing in no acute distress lung sounds are clear to auscultation heart regular rate rhythm, clear S1, S2 positive bowel sounds, abdomen is soft, nontender neuro patient is alert x3, no focal deficits Objective Data Active Medications Acetaminophen (Acetaminophen 325 Mg Tablet) 650 mg PO Q6H PRN PRN Reason: Pain, Mild 1-3,fever,headache Last Admin: 05/28/24 05:37 Dose: 650 mg Documented By: JAX Calcium Carbonate (Calcium Carbonate 750 Mg Tab.Chew) 750 mg PO Q4H PRN PRN Reason: Heartburn Vancomycin HCl 500 mg/ Sodium (Chloride) 110 mls @ 110 mls/hr IV ONCE ONE Stop: 05/27/24 16:59 Magnesium Hydroxide (Milk Of Magnesia 30 Ml Oral.Susp) 30 ml PO DAILY PRN PRN Reason: Constipation Melatonin (Melatonin 3 Mg Tablet) 6 mg PO BEDTIME PRN PRN Reason: Insomnia Last Admin: 05/27/24 22:53 Dose: 6 mg Documented By: DAKOTA Ondansetron HCl (Ondansetron Hcl 4 Mg/2 Ml Vial) 4 mg IVPUSH Q8H PRN PRN Reason: Nausea and Vomiting Pharmacy Consult (Consult Rx Vancomycin Dosing) 1 each MISCELLANE DAILY PRN PRN Reason: Consult order Sodium Chloride (0.9 % Sodium Chloride Flush 3 Ml Syringe) 3 ml IVFLUSH [facility] Last Admin: 05/28/24 00:15 Dose: 3 ml Documented By: JAX Tramadol HCl (Tramadol Hcl 50 Mg Tablet) 25 mg PO Q6H PRN PRN Reason: Pain, Severe (Pain Scale 7-10) Last Admin: 05/28/24 05:37 Dose: 25 mg Documented By: JAX Labs 05/28/24 07:36 05/28/24 07:36 Labs: Laboratory Results - last 24 hr 05/27/24 05/27/24 05/27/24 12:41 12:42 12:56 MCV 90.2 MCH 29.5 MCHC 32.7 RDW 19.6 H Plt Count TNP MPV TNP Immature Gran % (Auto) 4.2 H Neut % (Auto) 76.7 H Lymph % (Auto) 8.3 L [place] % (Auto) 9.1 Eos % (Auto) 1.1 Baso % (Auto) 0.6 Lymph # (Auto) 1.2 Cloud # (Auto) 1.3 H Eos # (Auto) 0.2 Baso # (Auto) 0.1 Abs Immat Gran (auto) 0.59 H Absolute Neuts (auto) 10.7 H Absolute Nucleated RBC 0.000 Nucleated RBC % (auto) 0.0 Smear Tech's Comments VERIFIED Anion Gap 21 H Estim Creat Clear Calc 15.6 Estimated GFR 12 Random Glucose 167 H Lactic Acid 1.0 Calcium 7.7 L Blood Type O Positive Antibody Screen NEGATIVE Crossmatch See Detail 05/28/24 07:36 MCV 86.7 MCH 28.3 MCHC 32.7 RDW 21.2 H Plt Count 24 L D MPV 11.9 Immature Gran % (Auto) 4.5 H Neut % (Auto) 74.9 H Lymph % (Auto) 8.9 L [place] % (Auto) 8.9 Eos % (Auto) 1.9 Baso % (Auto) 0.9 Lymph # (Auto) 1.2 Cloud # (Auto) 1.1 Eos # (Auto) 0.3 Baso # (Auto) 0.1 Abs Immat Gran (auto) 0.58 H Absolute Neuts (auto) 9.6 H Absolute Nucleated RBC 0.000 Nucleated RBC % (auto) 0.0 Smear Tech's Comments Anion Gap 21 H Estim Creat Clear Calc 14.4 Estimated GFR 11 Random Glucose 97 Lactic Acid Calcium 7.7 L Blood Type Antibody Screen Crossmatch Assessment and Plan (1) Anemia: Status: Acute Plan 68-year-old woman admitted with acute on chronic anemia with low H&H requiring blood transfusion Acute on chronic anemia. Unspecified No obvious blood loss, history of end-stage renal disease on dialysis H&H 5.4/16.5 initially 2 units of packed red blood cells ordered in the ER GI consultation> patient high risk for procedures at this time, we will continue supportive care with transfusions as necessary, Procrit, nutritional supplementation, iron, omeprazole 40 mg daily, avoid all NSAIDs and aspirin HH low again today, 2 units prbc ordered, repeat CBC daily Multiple skin wounds, calciphylaxis General surgery consultation> status post sharp excisional debridement today of right heel ulcer, blunt debridement of left foot amputation site, likely BKA as calcaneus is exposed. Not urgent but at some point down the line. Wound care nurse following for dressing changes Diabetes mellitus type 2 Sliding scale, ADA Lantus ESRD on HD M/W/F Nephrology consultation lasix Osteomyelitis left foot vancomycin from previous admission (07/02/24) Seizure disorder Continue levetiracetam, valproate, and phenytoin Seizure precaution HTN Continue amlodipine, losartan Mood disorder Continue sertraline, lorazepam Hyperlipidemia Continue. DVT prophylaxis with pneumatic compression boots Full code Quality Stroke Does the patient have a stroke diagnosis?: No VTE Prior VTE?: No VTE Risk Level:: Medical - moderate - high VTE Device Contraindication: N/A - Device Ordered VTE Drug Contraindication: Treatment Not Indicated
[2024-05-28] MEDS: ondansetron HCL 4 MG/2 ML VIAL IVPUSH (09:26)
[2024-05-28 09:49] LABS: Iron 60 mcg/dL (30-160); Percent Iron Saturation 60 % (15-50); Total Iron Binding Capacity 100 mcg/dL (228-428); Unsaturated Iron Binding 40 ug/dL
--- NOTE | 2024-05-28 10:59 | PM.CNGS ---
History of Present Illness Consult details Consult date: 05/28/24 Narrative: [age] year old female referred for a heel ulcer. She is known to me.She has multiple medical problems including end-stage renal disease, on dialysis, diabetes, seizure disorder, and had undergone left 5th toe amputation last 03/28/2024 because of toe gangrene. I had debrided a heel ulcer with eschar on the right side at bedside while she was in the hospital 2 weeks ago. She was actually discharged from the hospital 5 days ago. However, on outpatient labs at [facility], she was noted to have a hemoglobin of 5.4. She was therefore sent back to the ER I have been reconsulted because of the presence of the eschar on the right heel as well as the open wound on the amputation site on the left. The patient was not communicative so no further details are available from her. Review of Systems Review of Systems: Yes Unobtainable due to mental condition and Unobtainable due to mental status PMFSH Past Medical History Medical History Eschar of heel ESRD (end stage renal disease) Generalized seizure Acute kidney injury CKD (chronic kidney disease) stage 3, GFR 30-59 ml/min CHF (congestive heart failure) Anemia Brain tumor (benign) Lower extremity edema Pneumonia Asthma Pulmonary nodule HLD (hyperlipidemia) Seizure Acute hypoxemic respiratory failure due to COVID-19 COVID-19 Kidney stone Depression Gastritis Diabetes Family History Family History Father CAD (coronary artery disease) Brother Lung cancer Sister Kidney stone Surgical History Surgical History 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) H/O lithotripsy H/O ureteroscopy H/O cystoscopy S/P ureteral stent placement History of cholecystectomy H/O hernia repair Social History Social History Household Members: Other Household Members Other:: from [facility] at this time Housing: House Are you a primary women's health care nurse practitioner to a significant other at home: No Unable to assess alcohol history related to: Unknown Alcohol intake: former Comment: pt sleeping at this time Patient Tobacco Use Status: Never used Tobacco e-Cigarette/Vaping Use: Never Used Use of substances other than those prescribed or required for medical reasons: No Currently Displaying Signs/Symptoms of Drug Intoxication Withdrawal: No Have you been hit, kicked, punched, or otherwise hurt by someone within the past year? If so, by whom?: No Do you feel safe in your current relationship?: No Current Relationship Is there a partner from a previous relationship who is making you feel unsafe now?: No Are you made to feel afraid or neglected: No Advance Directives: Yes Advance Directives on File: Yes Advance Directives Date on File: 12/20/21 Do you have a plan to hurt others: No Plan Recently lost weight without trying: No How much weight loss: Unsure Eating poorly because of decreased appetite: No Nutrition screen score: 2 Nutrition Risks: No Nutritional Risk Patient : No : No Poor oral hygiene: No service: No Current occupational status: unemployed Meds Allergies Allergy/AdvReac Type Severity Reaction Status Date / Time Egg Derived Allergy Unknown Verified 05/27/24 12:18 Active Medications: Current Medications Acetaminophen (Acetaminophen 325 Mg Tablet) 650 mg PO Q6H PRN PRN Reason: Pain, Mild 1-3,fever,headache Last Admin: 05/28/24 05:37 Dose: 650 mg Calcium Carbonate (Calcium Carbonate 750 Mg Tab.Chew) 750 mg PO Q4H PRN PRN Reason: Heartburn Vancomycin HCl 500 mg/ Sodium (Chloride) 110 mls @ 110 mls/hr IV ONCE ONE Stop: 05/27/24 16:59 Magnesium Hydroxide (Milk Of Magnesia 30 Ml Oral.Susp) 30 ml PO DAILY PRN PRN Reason: Constipation Melatonin (Melatonin 3 Mg Tablet) 6 mg PO BEDTIME PRN PRN Reason: Insomnia Last Admin: 05/27/24 22:53 Dose: 6 mg Ondansetron HCl (Ondansetron Hcl 4 Mg/2 Ml Vial) 4 mg IVPUSH Q8H PRN PRN Reason: Nausea and Vomiting Last Admin: 05/28/24 09:26 Dose: 4 mg Pharmacy Consult (Consult Rx Vancomycin Dosing) 1 each MISCELLANE DAILY PRN PRN Reason: Consult order Sodium Chloride (0.9 % Sodium Chloride Flush 3 Ml Syringe) 3 ml IVFLUSH [facility] Last Admin: 05/28/24 09:26 Dose: 3 ml Tramadol HCl (Tramadol Hcl 50 Mg Tablet) 25 mg PO Q6H PRN PRN Reason: Pain, Severe (Pain Scale 7-10) Last Admin: 05/28/24 05:37 Dose: 25 mg Home Medications ?Medication ?Instructions ?Recorded ?Confirmed ?Last Taken ?Type blood sugar diagnostic (FreeStyle 03/28/20 09/09/22 Unknown History Lite Strips) blood-glucose meter (FreeStyle 03/28/20 09/09/22 Unknown History [place] Lite kit) lancets 28 gauge (FreeStyle 03/28/20 09/09/22 Unknown History Lancets) omeprazole 40 mg capsule,delayed 40 mg PO BID@0630,1630 10/02/21 05/27/24 03/21/24 History release blood pressure test kit-large #1 ea 10/12/21 09/09/22 Unknown History atorvastatin 80 mg tablet 80 mg PO DAILY 12/20/21 05/27/24 03/21/24 History nebulizers 01/20/22 09/09/22 Unknown History amlodipine 10 mg tablet 10 mg PO DAILY 05/29/22 05/27/24 03/21/24 History lancets 33 gauge (TRUEplus Lancets) #100 ea 06/07/22 09/09/22 Unknown History ferrous gluconate 324 mg (38 mg 324 mg PO DAILY 11/24/22 05/27/24 03/21/24 History iron) tablet acetaminophen 650 mg 650 mg PO Q8H PRN mild pain 03/22/24 05/27/24 Unknown History tablet,extended release diclofenac sodium 1 % topical gel 2 g topical BEDTIME PRN Pain 03/22/24 05/27/24 03/21/24 History losartan 100 mg tablet 100 mg PO BID 03/22/24 05/27/24 03/21/24 History valproic acid 250 mg capsule 500 mg PO BID 03/22/24 05/27/24 03/21/24 History furosemide 40 mg tablet 80 mg PO BID 05/04/24 05/27/24 Unknown History gabapentin 100 mg capsule 200 mg PO DAILY 05/04/24 05/27/24 Unknown History gabapentin 300 mg capsule 300 mg PO MOWEFR@1800 05/04/24 05/27/24 Unknown History levetiracetam 500 mg tablet 500 mg PO MOWEFR@1800 05/04/24 05/27/24 Unknown History lorazepam 0.5 mg tablet 0.5 mg PO DAILY PRN anxiety 05/04/24 05/27/24 Unknown History sertraline 50 mg tablet 50 mg PO DAILY 05/04/24 05/27/24 Unknown History cholecalciferol (vitamin D3) 25 50 mcg PO DAILY 05/27/24 05/27/24 Unknown History mcg (1,000 unit) tablet (Vitamin D3) dextrose 40 % oral gel (Glucose 10 g PO Q15M PRN low blood sugar 05/27/24 05/27/24 Unknown History Gel) epoetin gabino-epbx 10,000 unit/mL 10,000 unit subcut MOWEFR@1645 05/27/24 05/27/24 05/20/24 History injection solution (Retacrit) glucagon 1 mg solution for 1 mg subcut Q20M PRN low blood 05/27/24 05/27/24 Unknown History injection (Glucagon Emergency Kit) sugar trazodone 50 mg tablet 100 mg PO BEDTIME 05/27/24 05/27/24 Unknown History vancomycin 500 mg intravenous 500 mg PO MOWEFR@1645 05/27/24 05/27/24 Unknown History solution Physical Exam Vital Signs: Vital Signs: Last Vital Signs Temp 99.1 F 05/28/24 10:45 Pulse 84 05/28/24 10:45 Resp 20 05/28/24 10:45 BP 144/61 H 05/28/24 10:45 Pulse Ox 97 05/28/24 10:45 O2 Del Method Room Air 05/28/24 10:45 BMI result Body Mass Index 40.3 Const: Other: Complains of pain all over, answers some simple questions Resp: Other: Mildly short of breath Cardio: Rate: regular rate GI: Palpation (GI): Soft to palpation Extrem: Other: Right heel with note of an open wound with an eschar, mild surrounding cellulitic changes Left 5th toe amputation site with open wound but with good granulation tissue, about 1 cm in diameter, no exposed bone, no pus She has other areas of the thigh with dry eschar consistent with calciphylaxis, no pus or cellulitis Results Labs 05/28/24 22:08 05/28/24 07:36 Labs: Abnormal lab results 05/27/24 05/27/24 05/27/24 Range/Units 12:41 12:42 12:56 WBC 13.9 H (4.8-10.8) X10*3/uL RBC 1.83 L (4.20-5.50) X10*6/uL Hgb 5.4 L* (12.0-16.0) g/dl Hct 16.5 L* (37.0-47.0) % RDW 19.6 H (11.0-16.0) % Plt Count (160-400) X10*3/uL Immature Gran % (Auto) 4.2 H (0.0-0.4) % Neut % (Auto) 76.7 H (45-73) % Lymph % (Auto) 8.3 L (20-40) % [place] # (Auto) 1.3 H (0.1-1.2) X10*3/uL Abs Immat Gran (auto) 0.59 H (0.00-0.03) X10*3/uL Absolute Neuts (auto) 10.7 H (2.0-8.3) x10*3/uL Potassium (3.3-5.1) mmol/L Carbon Dioxide 19 L (22-29) mmol/L Anion Gap 21 H (12-20) BUN 29 H (9-16) mg/dL Creatinine 3.82 H (0.5-1.4) mg/dL Random Glucose 167 H (60-115) mg/dL Calcium 7.7 L (8.4-10.2) mg/dL TIBC (228-428) mcg/dL % Saturation (15-50) % Crossmatch See Detail 05/27/24 05/28/24 Range/Units 23:09 07:36 WBC 12.9 H (4.8-10.8) X10*3/uL RBC 2.40 L D (4.20-5.50) X10*6/uL Hgb 7.3 L D 6.8 L* (12.0-16.0) g/dl Hct 22.2 L D 20.8 L* (37.0-47.0) % RDW 21.2 H (11.0-16.0) % Plt Count 24 L D (160-400) X10*3/uL Immature Gran % (Auto) 4.5 H (0.0-0.4) % Neut % (Auto) 74.9 H (45-73) % Lymph % (Auto) 8.9 L (20-40) % [place] # (Auto) (0.1-1.2) X10*3/uL Abs Immat Gran (auto) 0.58 H (0.00-0.03) X10*3/uL Absolute Neuts (auto) 9.6 H (2.0-8.3) x10*3/uL Potassium 3.2 L (3.3-5.1) mmol/L Carbon Dioxide 18 L (22-29) mmol/L Anion Gap 21 H (12-20) BUN 33 H (9-16) mg/dL Creatinine 4.20 H* (0.5-1.4) mg/dL Random Glucose (60-115) mg/dL Calcium 7.7 L (8.4-10.2) mg/dL TIBC 100 L (228-428) mcg/dL % Saturation 60 H (15-50) % Crossmatch Short CBC 05/27/24 05/27/24 05/28/24 Range/Units 12:42 23:09 07:36 WBC 13.9 H 12.9 H (4.8-10.8) X10*3/uL Hgb 5.4 L* 7.3 L D 6.8 L* (12.0-16.0) g/dl Hct 16.5 L* 22.2 L D 20.8 L* (37.0-47.0) % Plt Count TNP 24 L D BMP 05/27/24 05/28/24 12:41 07:36 Sodium 142 142 Potassium 3.3 3.2 L Chloride 105 106 Carbon Dioxide 19 L 18 L BUN 29 H 33 H Creatinine 3.82 H 4.20 H* Calcium 7.7 L 7.7 L All other labs normal. Assessment and Plan (1) Eschar of heel: Status: Acute In view of the presence of eschar, I proceeded to do sharp excisional debridement again of an area about 3 x 3 cm. The calcaneus was exposed so it this is unlikely to heal completely I have asked the nursing staff to keep the heel elevated off of the surface of the bed with a pillow on the calves. The patient however always pushes this away. I have changed his dressings on the amputation site on left foot She will need good wound care and bed sore precautions especially for the heel She will likely require BKA in the future as I am not up optimistic that this heel ulcer will heal in view of the exposed calcaneus. Procedures Date of Service Date of Service: 05/29/24 Procedure Note Procedure Note: Procedure: Sharp excisional debridement of right heel ulcer, blunt debridement of the left foot amputation site The area was prepped and draped. I used fine sharp scissors to excise dry eschar from the heel. An area 3 x 3 cm was excised The calcaneus noted to be exposed as well. I applied wet-to-dry dressings in the area. The foot was wrapped with Kerlix roll I also proceeded to bluntly debrided the open wound on the amputation site in the left foot. I applied wet-to-dry dressings and wrapped the foot with Kerlix roll as well.
--- NOTE | 2024-05-28 11:25 | MHC.CM.PN ---
IMM 05/28/24, Pt. came from [facility], where she was for STR, was here prior to that. At home, she lives with her dtr, Manuel, she goes to HD at [facility]. She confirmed that her PCP is Lucrecia Teixeira. Pt. said that she would like to go home after hosp. stay. DCP may be for her to return to STR. CM to follow for DC needs.
[2024-05-28] MEDS: Potassium Chloride ER 20 MEQ TAB.ER.PRT 40 MEQ PO (11:58)
--- NOTE | 2024-05-28 13:12 | P.EN_ITS ---
Event Note Date of Service: 05/28/24 Event Note: GI Consult--Full note dictated. History has been obtained from the patient with a medical collections representative, from her RN, and from the medical record. Impression: Longstanding and chronic anemia which appears to be multifactorial in relation to chronic disease including renal failure, areas of skin breakdown with associated decubiti and cellulitis, and possible upper GI losses in relation to what she describes as a lot of heartburn and reflux. It is also not clear if she takes any NSAIDs at home. Other possibilities would include angiodysplasias of the GI tract, silent ulcer disease, or upper or lower GI neoplasm given her age. Recommendations: At this point I do not think she is a candidate for any type of GI procedure to further investigate her anemia such as upper endoscopy or colonoscopy due to all of her significant medical problems clinical condition. I do not think she would be able to tolerate the prep for the colonoscopy at this time either. Therefore, at this point I would recommend continued supportive care with transfusions, Procrit, and nutritional supplementation including iron. I shall order a B12 and folate level as I cannot find 1 having been done recently although it may be in her record and I simply do not see it. Nonetheless, I think would be worthwhile to check those to just to be sure. I have restarted her omeprazole at 40 mg daily given her symptoms of reflux and heartburn, and would continue that long-term as well. She should avoid all NSAIDs and aspirin long-term if possible to avoid any GI blood loss on that basis. Thank you for this consultation. Please do not hesitate to contact me if I can be of any further assistance while she is here in the hospital. Time Spent With Patient Time: Total time managing care of this patient today ____ minutes.
[2024-05-28] MEDS: Omeprazole 40 MG CAPSULE.DR PO (14:05)
--- NOTE | 2024-05-28 15:57 | P.CDIM_ITS ---
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 Please review below and update the documentation accordingly. Clinical Indicators: Height: 5ft 2in Weight: 99.9kg BMI: 40.3 Other Clinical Notes Supporting Significance of the BMI: Nursing notes Height and Weight: Extreme obe sity Class III If possible, please provide an associated diagnosis related to the abnormal BMI, such as: Morbid obesity Obesity Due to other cause Specify the other cause Obesity due to excess calories Other (explain) Clinically unable to determine (explain) Thank you, Benita Wilkins, CCS, CDIS Use of terms such as suspected, likely, concern for, or probable (associated with a specific diagnosi s that is being evaluated, monitored, or treated as if it exists) are acceptable and can be coded in the inpatient se tting, when documented at the time of discharge. Please use your independent medical judgment in providing your response. THIS QUERY IS PART OF THE PERMANENT MEDICAL RECORD
[2024-05-28] MEDS: Furosemide 40 MG TABLET 80 MG PO (17:14)
[2024-05-28] MEDS: oxyCODONE HCl Immed Release 5 MG TABLET PO (17:14)
[2024-05-28] MEDS: traZODone HCL 100 MG TABLET PO (20:32)
[2024-05-28] MEDS: Insulin Glargine,Hum.rec.anlog 100 UNIT/ML 10 ML VIAL 10 UNIT SUBCUT (20:32)
[2024-05-28] MEDS: Valproic Acid 250 MG CAPSULE 500 MG PO (20:32)
[2024-05-28] MEDS: Phenytoin Sodium Extended 100 MG CAPSULE PO (20:32)
[2024-05-28] MEDS: Losartan Potassium 50 MG TABLET 100 MG PO (20:32)
[2024-05-28 22:28] LABS: Hematocrit 27.1 % (37.0-47.0); Hemoglobin 9.2 g/dl (12.0-16.0)
[2024-05-29] VITALS (10 sets, daily range): BP systolic 123–150; BP diastolic 50–71; PULSE 78–91; RESP 18–20; TEMP 35.9–36.7; O2SAT 95–98
[2024-05-29] MEDS: Melatonin 3 MG TABLET 6 MG PO (00:52)
[2024-05-29] MEDS: traMADoL HCL 50 MG TABLET 25 MG PO ×2 (00:52→17:28)
--- NOTE | 2024-05-29 02:31 | CONS_ITS ---
DATE OF SERVICE: 05/28/2024 REASON FOR CONSULTATION: Anemia. HISTORY OF PRESENT ILLNESS: This has been obtained from the patient with a medical laboratory technicians, as well as from the medical record. The patient is a 68-year-old female with multiple underlying medical problems including renal failure, for which she is on hemodialysis 3 times a week, peripheral vascular disease, history of cellulitis and decubitus ulcers, and history of chronic anemia, for which she receives periodic transfusions. She was admitted to the hospital yesterday, the hemoglobin of 5.7 compared to 7.4 on May 23. A followup hemoglobin was 6.8 this morning. She denies any history of black or tarry stools. She denies any hematochezia. She does describe reflux, for which she has been on outpatient omeprazole 40 mg. She denies any dysphagia. She just completed eating her lunch before the interview. She denies any vomiting. She presently denies any abdominal pain or jaundice. She has had a very longstanding history of anemia dating back at least throughout this entire year. She denies any known family history of colorectal cancer. She denies tobacco nor alcohol. She denies any definitive use of NSAIDs or aspirin. She cannot recall ever having had a colonoscopy or upper endoscopy. CURRENT MEDICATIONS: Include amlodipine, atorvastatin, iron, folic acid, furosemide, gabapentin, hydroxyzine, insulin, Keppra, lorazepam p.r.n., losartan, melatonin, milk of magnesia p.r.n., morphine p.r.n., omeprazole 40 mg daily, ondansetron, oxycodone, phenytoin. PAST MEDICAL HISTORY: End-stage renal disease with hemodialysis 3 times a week. Hypertension. Gastroesophageal reflux. Seizure disorder. She denies any history of [place], diabetes, or stroke. She did have a fall recently with a subdural. She does have a history of depression, multiple areas of skin breakdown with decubitus and cellulitis. History of asthma, pneumonia. She has had a cholecystectomy. Surgical debridement of decubitus. She has had amputation of the 5th toe in the left foot. Lithotripsy for kidney stones. Ureteroscopy and cystoscopy. Ureteral stent placement in the past. History of hernia surgery. SOCIAL HISTORY: She denies tobacco or alcohol. FAMILY HISTORY: Noncontributory. REVIEW OF SYSTEMS: CONSTITUTIONAL: She has been feeling poorly in general with fatigue. CARDIAC: No chest pain. PULMONARY: No coughing nor hemoptysis. GI: As above. No dysuria, no hematuria. NEURO: She has history of headache and seizures. PHYSICAL EXAMINATION: GENERAL: The patient is a chronically ill-appearing female, who is able to give a reliable history, although she does have periods of crying during the interview. SKIN: Warm and dry. EYES: Anicteric sclerae. NECK: Supple. ABDOMEN: Soft, nondistended, nontender. LABORATORY DATA: Hemoglobin on May 23 was 7.4. Hemoglobin on admission on May 27 was 5.7 with a repeat of 5.4. Hemoglobin did increase to 7.3 after transfusions, but most recently dropped back to 6.8. White blood cell count 12.9. Platelet count 24,000. Sodium 142, potassium 3.2, BUN 33, creatinine 4.2, iron 60, TIBC 100 and the iron saturation 40%. Her last 2 stool specimens in the lab have been heme negative, but she did have a positive 1 last year. IMPRESSION: The patient is a 68-year-old female with multiple significant medical problems including that of renal failure, who has had a chronic anemia with intermittent worsening. I doubt this represents any significant GI bleeding and this appears to be multifactorial in relation to chronic disease including renal failure, areas of skin breakdown with associated decubitus and cellulitis, and possible some upper GI losses in relation to what she describes as some heartburn and reflux. At this point, given all her chronic medical issues, I do not think she is a good candidate for any type of invasive testing with upper endoscopy or colonoscopy. Given her overall condition, I do not think she should be able to tolerate a colonoscopy prep anyway. At this point, I would recommend continuing supportive care with transfusions, Procrit, and nutritional supplementation including iron. I shall order B12 and folate level as I do not see a recent value for those. I have also restart her omeprazole 40 mg daily to see if that gives her some relief of the reflux in the meantime. She should avoid all NSAIDs and aspirin long-term if possible to avoid any GI blood loss on that basis. She should continue supportive care with blood transfusions and iron infusions as deemed necessary. Again, I do not think she is a candidate for upper endoscopy or colonoscopy given her overall condition. Thank you for the consultation. MD BOO Castellanos/SILVIA / [phone]
[2024-05-29] MEDS: Omeprazole 40 MG CAPSULE.DR PO (06:27)
--- NOTE | 2024-05-29 08:30 | PM.PNGS ---
Subjective Subjective Date of Service: 05/29/24 Interval history: No changes in overall status Complains of generalized aches and pains Physical Exam Vital Signs: Vital Signs: Last Vital Signs Temp 98.1 F 05/29/24 07:17 Pulse 78 05/29/24 07:17 Resp 20 05/29/24 07:17 BP 133/59 L 05/29/24 07:17 Pulse Ox 96 05/29/24 07:17 O2 Del Method Room Air 05/29/24 07:17 BMI result Body Mass Index 40.3 Const: Other: Answers simple questions Resp: Other: Mildly short of breath Cardio: Rate: regular rate GI: Palpation (GI): Soft to palpation Extrem: Other: Right heel with open wound, dry patchy eschar , calcaneus visible, no discharge Open wound on the left 5th toe amputation site, clean, granulating Objective Data Active Medications Acetaminophen (Acetaminophen 325 Mg Tablet) 650 mg PO Q6H PRN PRN Reason: Pain, Mild 1-3,fever,headache Last Admin: 05/28/24 14:14 Dose: 650 mg Documented By: CARIE Amlodipine Besylate (Amlodipine Besylate 10 Mg Tablet) 10 mg PO DAILY [facility]; Protocol Atorvastatin Calcium (Atorvastatin Calcium 80 Mg Tablet) 80 mg PO DAILY [facility] Calcium Carbonate (Calcium Carbonate 750 Mg Tab.Chew) 750 mg PO Q4H PRN PRN Reason: Heartburn Ferrous Sulfate (Ferrous Sulfate 324 Mg Tablet.Dr) 324 mg PO DAILY [facility] Folic Acid (Folic Acid 1 Mg Tablet) 1 mg PO DAILY [facility] Furosemide (Furosemide 40 Mg Tablet) 80 mg PO BIDWM [facility]; Protocol Last Admin: 05/28/24 17:14 Dose: 80 mg Documented By: CARIE Gabapentin (Gabapentin 300 Mg Capsule) 300 mg PO MOWEFR@1800 [facility] Gabapentin (Gabapentin 100 Mg Capsule) 200 mg PO DAILY [facility] Vancomycin HCl 500 mg/ Sodium (Chloride) 110 mls @ 110 mls/hr IV ONCE ONE Stop: 05/27/24 16:59 Insulin Glargine (Insulin Glargine,Hum.Rec.Anlog 100 Unit/Ml 10 Ml Vial) 10 unit SUBCUT BEDTIME [facility] Last Admin: 05/28/24 20:32 Dose: 10 unit Documented By: ANTOINManuel Levetiracetam (Levetiracetam 500 Mg Tablet) 500 mg PO MOWEFR@1800 [facility] Lorazepam (Lorazepam 0.5 Mg Tablet) 0.5 mg PO DAILY PRN PRN Reason: anxiety Losartan Potassium (Losartan Potassium 50 Mg Tablet) 100 mg PO BID [facility]; Protocol Last Admin: 05/28/24 20:32 Dose: 100 mg Documented By: BREANNE Magnesium Hydroxide (Milk Of Magnesia 30 Ml Oral.Susp) 30 ml PO DAILY PRN PRN Reason: Constipation Melatonin (Melatonin 3 Mg Tablet) 6 mg PO BEDTIME PRN PRN Reason: Insomnia Last Admin: 05/29/24 00:52 Dose: 6 mg Documented By: ANTOINManuel Omeprazole (Omeprazole 40 Mg Capsule.Dr) 40 mg PO DAILY@0630 [facility] Last Admin: 05/29/24 06:27 Dose: 40 mg Documented By: BREANNE Ondansetron HCl (Ondansetron Hcl 4 Mg/2 Ml Vial) 4 mg IVPUSH Q8H PRN PRN Reason: Nausea and Vomiting Last Admin: 05/28/24 09:26 Dose: 4 mg Documented By: CARIE Oxycodone HCl (Oxycodone Hcl Immed Release 5 Mg Tablet) 5 mg PO Q4H PRN PRN Reason: Pain, Severe (Pain Scale 7-10) Last Admin: 05/28/24 17:14 Dose: 5 mg Documented By: CARIE Pharmacy Consult (Consult Rx Vancomycin Dosing) 1 each MISCELLANE DAILY PRN PRN Reason: Consult order Phenytoin Sodium (Phenytoin Sodium Extended 100 Mg Capsule) 100 mg PO TID [facility] Last Admin: 05/28/24 20:32 Dose: 100 mg Documented By: BREANNE Sertraline HCl (Sertraline Hcl 50 Mg Tablet) 50 mg PO DAILY [facility] Sodium Chloride (0.9 % Sodium Chloride Flush 3 Ml Syringe) 3 ml IVFLUSH QSHIFT [facility] Last Admin: 05/28/24 20:34 Dose: 3 ml Documented By: ANTDAVID Tramadol HCl (Tramadol Hcl 50 Mg Tablet) 25 mg PO Q6H PRN PRN Reason: Pain, Severe (Pain Scale 7-10) Last Admin: 05/29/24 00:52 Dose: 25 mg Documented By: ANTDAVID Trazodone HCl (Trazodone Hcl 100 Mg Tablet) 100 mg PO BEDTIME [facility] Last Admin: 05/28/24 20:32 Dose: 100 mg Documented By: GRISELDAOINC Valproic Acid (Valproic Acid 250 Mg Capsule) 500 mg PO BID [facility] Last Admin: 05/28/24 20:32 Dose: 500 mg Documented By: BREANNE Labs 05/28/24 22:08 05/28/24 07:36 Labs: Laboratory Results - last 24 hr 05/27/24 05/28/24 12:56 07:36 MCV 86.7 MCH 28.3 MCHC 32.7 RDW 21.2 H Plt Count 24 L D MPV 11.9 Immature Gran % (Auto) 4.5 H Neut % (Auto) 74.9 H Lymph % (Auto) 8.9 L [place] % (Auto) 8.9 Eos % (Auto) 1.9 Baso % (Auto) 0.9 Lymph # (Auto) 1.2 [place] # (Auto) 1.1 Eos # (Auto) 0.3 Baso # (Auto) 0.1 Abs Immat Gran (auto) 0.58 H Absolute Neuts (auto) 9.6 H Absolute Nucleated RBC 0.000 Nucleated RBC % (auto) 0.0 Anion Gap 21 H Estim Creat Clear Calc 14.4 Estimated GFR 11 Random Glucose 97 Calcium 7.7 L Iron 60 TIBC 100 L % Saturation 60 H Unsat Iron Binding 40 Blood Type O Positive Antibody Screen NEGATIVE Crossmatch See Detail Microbiology Microbiology Results: Microbiology 05/27/24 12:50 Blood Culture - Preliminary Blood - Venous No growth after 24 hours. 05/27/24 12:49 Blood Culture - Preliminary Blood - Venous No growth after 24 hours. Procedures Date of Service Date of Service: 05/29/24 Progress Note: A&P Assessment and plan (1) Eschar of heel: Status: Acute Assessment and Plan: There were some patchy areas of dry eschar especially around the margins I proceeded to do sharp excisional debridement again using fine scissors Wet-to-dry dressings applied I also applied wet-to-dry dressings on the left foot at the open wound Because of the exposed calcaneus, I am not optimistic that this heel ulcer were eventually heal I explained to her through an service writer advisor that she should keep the heel off of the bed with pillows Good wound care with wet-to-dry dressings for now Time Spent With Patient Time: Total time managing care of this patient today ____ minutes. Quality Stroke Does the patient have a stroke diagnosis?: No VTE Prior VTE?: No VTE Risk Level:: Medical - moderate - high VTE Device Contraindication: N/A - Device Ordered VTE Drug Contraindication: Treatment Not Indicated
[2024-05-29] MEDS: Sertraline HCL 50 MG TABLET PO (08:55)
[2024-05-29] MEDS: Losartan Potassium 50 MG TABLET 100 MG PO ×2 (08:55→23:06)
[2024-05-29] MEDS: Ferrous Sulfate 324 MG TABLET.DR PO (08:55)
[2024-05-29] MEDS: Folic Acid 1 MG TABLET PO (08:55)
[2024-05-29] MEDS: amLODIPine Besylate 10 MG TABLET PO (08:56)
[2024-05-29] MEDS: Gabapentin 100 MG CAPSULE 200 MG PO (08:56)
[2024-05-29] MEDS: Atorvastatin Calcium 80 MG TABLET PO (08:56)
[2024-05-29] MEDS: 0.9 % Sodium Chloride Flush 3 ML SYRINGE IVFLUSH ×3 (08:56→20:57)
[2024-05-29] MEDS: Furosemide 40 MG TABLET 80 MG PO ×2 (08:56→17:28)
[2024-05-29] MEDS: Valproic Acid 250 MG CAPSULE 500 MG PO ×2 (08:56→23:07)
[2024-05-29] MEDS: Phenytoin Sodium Extended 100 MG CAPSULE PO ×3 (08:56→23:07)
[2024-05-29] MEDS: Acetaminophen 325 MG TABLET 650 MG PO (08:59)
[2024-05-29 10:29] LABS: Hematocrit 24.5 % (37.0-47.0); Hemoglobin 8.3 g/dl (12.0-16.0); Mean Corpuscular HGB Conc 33.9 g/dl (31.0-35.0); Mean Corpuscular Hemoglobin 29.2 pg (27.0-33.0); Mean Corpuscular Volume 86.3 fL (80.0-98.0); Red Blood Count 2.84 X10*6/uL (4.20-5.50); Red Cell Distribution Width 19.8 % (11.0-16.0); White Blood Count 13.3 X10*3/uL (4.8-10.8)
[2024-05-29 10:55] LABS: Platelet Count 24 X10*3/uL (160-400)
[2024-05-29 10:57] LABS: Anion Gap 19 (12-20); Blood Urea Nitrogen 45 mg/dL (9-16); Calcium 7.9 mg/dL (8.4-10.2); Carbon Dioxide 20 mmol/L (22-29); Chloride 109 mmol/L (96-108); Creatinine Clr Calc Pharmacy 12.5; Estimated Glomerular Filt Rate 9; Glucose Random 126 mg/dL (60-115); Potassium 3.8 mmol/L (3.3-5.1); Sodium 144 mmol/L (135-145)
[2024-05-29 11:24] LABS: Folate 11.5 ng/mL (> or = 4.0); Vitamin B12 1465 pg/mL (200-900)
[2024-05-29] MEDS: HYDROmorphone HCl 0.5 MG/0.5 ML SYRINGE IVPUSH (11:30)
[2024-05-29] MEDS: oxyCODONE HCl Immed Release 5 MG TABLET PO ×2 (14:27→23:07)
--- NOTE | 2024-05-29 15:35 | MHC.CM.PN ---
Per rounds, pt. is not ready to DC yet, anticipate DC tomorrow to [facility].
--- NOTE | 2024-05-29 15:35 | HO.PM.IMPN ---
Subjective Subjective Date of Service: 05/29/24 Interval History: This history was taken in Wol[place] from the patient. C/o leg wound pain In HD today Review of Systems Review of Systems: Yes all other systems are reviewed and are negative Physical Exam Vital Signs: Vital Signs: Last Vital Signs Temp 97.9 F 05/29/24 15:25 Pulse 84 05/29/24 15:25 Resp 18 05/29/24 15:25 BP 130/58 L 05/29/24 15:25 Pulse Ox 96 05/29/24 15:25 O2 Del Method Room Air 05/29/24 15:25 BMI result Body Mass Index 40.3 Gen: in no acute distress HEENT: sclera anicteric, moist mucus membranes Neck: supple Lungs: clear to auscultation bilaterally, RIJ HD catheter Heart: regular rate and rhythm, no murmurs Abd: soft, non-tender, non-distended, obese Ext: no edema Skin: warm/well-perfused, multiple necrotic ulcers with eschar on R hip, L calf, R heel with exposed bone Neuro: alert and oriented x3, no focal findings Psych: appropriate affect Objective Data Active Medications Acetaminophen (Acetaminophen 325 Mg Tablet) 650 mg PO Q6H PRN PRN Reason: Pain, Mild 1-3,fever,headache Last Admin: 05/29/24 08:59 Dose: 650 mg Documented By: DOC Amlodipine Besylate (Amlodipine Besylate 10 Mg Tablet) 10 mg PO DAILY [facility]; Protocol Last Admin: 05/29/24 08:56 Dose: 10 mg Documented By: DOC Atorvastatin Calcium (Atorvastatin Calcium 80 Mg Tablet) 80 mg PO DAILY [facility] Last Admin: 05/29/24 08:56 Dose: 80 mg Documented By: DOC Calcium Carbonate (Calcium Carbonate 750 Mg Tab.Chew) 750 mg PO Q4H PRN PRN Reason: Heartburn Ferrous Sulfate (Ferrous Sulfate 324 Mg Tablet.Dr) 324 mg PO DAILY [facility] Last Admin: 05/29/24 08:55 Dose: 324 mg Documented By: DOC Folic Acid (Folic Acid 1 Mg Tablet) 1 mg PO DAILY [facility] Last Admin: 05/29/24 08:55 Dose: 1 mg Documented By: DOC Furosemide (Furosemide 40 Mg Tablet) 80 mg PO BIDWM [facility]; Protocol Last Admin: 05/29/24 08:56 Dose: 80 mg Documented By: DOC Gabapentin (Gabapentin 300 Mg Capsule) 300 mg PO MOWEFR@1800 [facility] Gabapentin (Gabapentin 100 Mg Capsule) 200 mg PO DAILY [facility] Last Admin: 05/29/24 08:56 Dose: 200 mg Documented By: DOC Hydromorphone HCl (Hydromorphone Hcl 0.5 Mg/0.5 Ml Syringe) 0.5 mg IVPUSH Q4H PRN; Protocol PRN Reason: Pain, Severe (Pain Scale 7-10) Last Admin: 05/29/24 11:30 Dose: 0.5 mg Documented By: DOC Vancomycin HCl 500 mg/ Sodium (Chloride) 110 mls @ 110 mls/hr IV ONCE ONE Stop: 05/27/24 16:59 Insulin Glargine (Insulin Glargine,Hum.Rec.Anlog 100 Unit/Ml 10 Ml Vial) 10 unit SUBCUT BEDTIME [facility] Last Admin: 05/28/24 20:32 Dose: 10 unit Documented By: ANTDAVID Levetiracetam (Levetiracetam 500 Mg Tablet) 500 mg PO MOWEFR@1800 [facility] Lorazepam (Lorazepam 0.5 Mg Tablet) 0.5 mg PO DAILY PRN PRN Reason: anxiety Losartan Potassium (Losartan Potassium 50 Mg Tablet) 100 mg PO BID [facility]; Protocol Last Admin: 05/29/24 08:55 Dose: 100 mg Documented By: DOC Magnesium Hydroxide (Milk Of Magnesia 30 Ml Oral.Susp) 30 ml PO DAILY PRN PRN Reason: Constipation Melatonin (Melatonin 3 Mg Tablet) 6 mg PO BEDTIME PRN PRN Reason: Insomnia Last Admin: 05/29/24 00:52 Dose: 6 mg Documented By: ANTOINManuel Omeprazole (Omeprazole 40 Mg Capsule.) 40 mg PO DAILY@0630 [facility] Last Admin: 05/29/24 06:27 Dose: 40 mg Documented By: ANTOINManuel Ondansetron HCl (Ondansetron Hcl 4 Mg/2 Ml Vial) 4 mg IVPUSH Q8H PRN PRN Reason: Nausea and Vomiting Last Admin: 05/28/24 09:26 Dose: 4 mg Documented By: DOBROB Oxycodone HCl (Oxycodone Hcl Immed Release 5 Mg Tablet) 5 mg PO Q4H PRN PRN Reason: Pain, Severe (Pain Scale 7-10) Last Admin: 05/29/24 14:27 Dose: 5 mg Documented By: DOC Pharmacy Consult (Consult Rx Vancomycin Dosing) 1 each MISCELLANE DAILY PRN PRN Reason: Consult order Phenytoin Sodium (Phenytoin Sodium Extended 100 Mg Capsule) 100 mg PO TID [facility] Last Admin: 05/29/24 14:26 Dose: 100 mg Documented By: DOC Sertraline HCl (Sertraline Hcl 50 Mg Tablet) 50 mg PO DAILY [facility] Last Admin: 05/29/24 08:55 Dose: 50 mg Documented By: DOC Sodium Chloride (0.9 % Sodium Chloride Flush 3 Ml Syringe) 3 ml IVFLUSH QSHIFT [facility] Last Admin: 05/29/24 08:56 Dose: 3 ml Documented By: DOC Tramadol HCl (Tramadol Hcl 50 Mg Tablet) 25 mg PO Q6H PRN PRN Reason: Pain, Severe (Pain Scale 7-10) Last Admin: 05/29/24 00:52 Dose: 25 mg Documented By: ANTOINC Trazodone HCl (Trazodone Hcl 100 Mg Tablet) 100 mg PO BEDTIME [facility] Last Admin: 05/28/24 20:32 Dose: 100 mg Documented By: ANTOINManuel Valproic Acid (Valproic Acid 250 Mg Capsule) 500 mg PO BID [facility] Last Admin: 05/29/24 08:56 Dose: 500 mg Documented By: DOC Labs 05/29/24 10:18 05/29/24 10:18 Labs: Laboratory Results - last 24 hr 05/27/24 05/28/24 05/29/24 12:56 07:36 09:00 MCV MCH MCHC RDW Plt Count 24 L D MPV Absolute Nucleated RBC Nucleated RBC % (auto) Anion Gap Estim Creat Clear Calc Estimated GFR Random Glucose Calcium Vitamin B12 1465 H Folate 11.5 Crossmatch See Detail 05/29/24 10:18 MCV 86.3 MCH 29.2 MCHC 33.9 RDW 19.8 H Plt Count TNP MPV TNP Absolute Nucleated RBC 0.000 Nucleated RBC % (auto) 0.0 Anion Gap 19 Estim Creat Clear Calc 12.5 Estimated GFR 9 Random Glucose 126 H Calcium 7.9 L Vitamin B12 Folate Crossmatch Microbiology Microbiology Results: Microbiology 05/27/24 12:50 Blood Culture - Preliminary Blood - Venous No growth after 48 hours. 05/27/24 12:49 Blood Culture - Preliminary Blood - Venous No growth after 48 hours. Assessment and Plan (1) Anemia: Status: Acute Assessment and Plan: d3 for 68yo F LTC resident at 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 Magdalena ordered. S/p sharp excisional debridement of R heel ulcer; may eventually need BKA given exposed calcaneus - pain control with PO oxycodone, IV hydromorphone DM2 - basal-bolus insulin ESRD - HD MWF osteomyelitis L foot - continue vancomycin as from previous admission; end date 07/02/24 seizure disorder - continue levetiracetam, valproate, phenytoin HTN - continue amlodipine, losartan mood disorder - continue sertraline, lorazepam, trazodone neuropathy - continue gabapentin HLD - continue statin VTE ppx - SCDs dispo - eventual return to LTC In my clinical judgment, the patient requires continued inpatient hospitalization for the following reasons: wound care, anemia Total time managing care of this patient today: 45 minutes. Quality Stroke Does the patient have a stroke diagnosis?: No VTE Prior VTE?: No VTE Risk Level:: Medical - moderate - high VTE Device Contraindication: N/A - Device Ordered VTE Drug Contraindication: Treatment Not Indicated
[2024-05-29 16:02] LABS: Vancomycin Random 36.5 mcg/mL (15-20)
--- NOTE | 2024-05-29 16:22 | HO.WOUND ---
Wound Consult: Initial 68yr old? female admitted to [facility] [place] [facility] on 05/27/24- See progress notes and H&P for detailed history.? Wound consult placed up for Multiple wounds present on admission. Recent admission see chart for history. ? Mass Spectrometry Specialist provided by staff. She called out in pain throughout the assessment and dressing change despite premedication. Todays assessmetn reveals worsening wounds since last admission. The Bilateral Hip and Left claf and right heel are nored for foul odor. Recommend dakins dressing TT to Dr. Reynoso to order and to request General Surgery to assess bilateral hips as they are moist necrotic slough concern for progression to infection. Left Posterior Calf 05/07/24 Left Posterior Calf 05/29/24 Left Lateral thigh 05/07/24 Left Lateral Thigh 05/29/24 Right Lateral thigh 05/16/24 Right Lateral Thigh 05/29/24 Right Lateral Thigh with necrotic tissue lifting - would likely benefit from Debridement. Surgery to assess. Bilateral Thigh and Left Posterior leg Etiology: ??Suspect Calciphylaxis Wound Bed: various stages of wound progression Drainage / Odor: Foul odor noted Edges: ? irregular and non attached Ruth wound: ?[place] red edges Induration and Fluctuance noted Pain: extreme pain reported Goals of Treatment: ?Dakin moist dressing Right Heel Etiology: ??Diabetic Wound Wound Bed: necrotic eschar and exposed dry bone Drainage / Odor: foul odor noted Edges: ? irregular and non attached Ruth wound: No Induration, Fluctuance noted Pain: extreme pain reported Goals of Treatment: ? Wet to dry dressing - surgery following Left Foot Etiology: ??Nonhealing Surgical Site Wound Bed: red moist viable tissue with small amount of slough Drainage / Odor: choi no odor Edges: ? irregular and non attached Ruth wound: ?Improving periwound No Induration, Fluctuance noted Pain: Mild pain reported Goals of Treatment: ? durafiber to continue to left foot Left Ischium Etiology: ?? Deep Tissue Injury Pressure injury Wound Bed: adherent yellow slough to wound bed Drainage / Odor: none Edges: ? irregular Ruth wound: ?[place] red edges improving MASD No Induration, Fluctuance noted Pain: extreme pain reported Goals of Treatment: ? triad Buttock - Perianal Etiology: ??MASD Wound Bed: red pink moist partial and full thickness tissue loss Drainage / Odor: none Edges: ? irregular and mirrored Ruth wound: ? improving MASD No Induration, Fluctuance noted Pain: pain reported Goals of Treatment: ?triad Recommendations: 1. Turn and Reposition every 2 hours and as needed for patient comfort.? Use pillows or wedges to support off loading positions. 2. Off Load all bony prominences with use of pillows and heel boots if needed.? Apply Preventative foams where needed. ? 3. Monitor for incontinence and moisture control, use barrier creams when needed for prevention and treatment. 4. Provide adequate and supplemental nutrition.? 5. Order low air loss mattress. 6. When applicable maintain blood glucose levels per Providers order. 7. Skin Folds - Cleanse with PH balance wipes, pat dry with soft cloth.? Apply antifungal power to assist with moisture management.? Be sure to dust of excess powder to prevent caking on skin and in folds. Apply per provider orders. Tuck Interdry AG Sheet into skin fold to wick and translocate moisture away from skin fold.? Be sure to leave at least 2 inch of fabric exposed outside of skin fold.? Change after 5 days or when soiled. 8. Left Foot - Elevate heels off of bed surface with pillows. Cleanse and irrigate with NS, Pat dry.? Apply barrier to periwound, lightly pack with Durafiber AG, be sure to leave a wick to easy removal.? Cover with gauze and wrap dressing.? Change every other day. 9. Perineal, buttock and Left Ischium - Off Load Pressure with Q2 hr turns and use of pillows - Cleanse with PH balance spray or wipes, pat dry. ?Apply thin layer of Triad to wound bed - only pat and dab no scrub and rub when soiling occurs. Reapply thin layer PRN after each episode of incontinence. 10. Right Heel, Bilateral Thighs and left Calf - Off Load Pressure with Q2 hr turns and use of pillows - Cleanse with NS moist gauze, pat dry. ?Apply thin layer of Triad to periwound. Apply Dakins moist gauze to entire wound bed, cover with dry gauze, ABD pad and gauze wrap or tape change Daily. Re-consult wound care Nurse for wound deterioration or wound changes.
[2024-05-29] MEDS: Gabapentin 300 MG CAPSULE PO (17:28)
[2024-05-29] MEDS: levETIRAcetam 500 MG TABLET PO (17:28)
[2024-05-29] MEDS: Nystatin Powder 15 GM BOTTLE 1 APPL TOPICAL ×2 (17:30→23:08)
[2024-05-29] MEDS: Sodium Hypochlorite 0.5% 473 ML SOLUTION 1 APPL TOPICAL (17:30)
[2024-05-29 20:46] LABS: Creatinine Clr Calc Pharmacy 12.8; Estimated Glomerular Filt Rate 9
[2024-05-29] MEDS: Insulin Glargine,Hum.rec.anlog 100 UNIT/ML 10 ML VIAL 10 UNIT SUBCUT (20:57)
[2024-05-29] MEDS: traZODone HCL 100 MG TABLET PO (23:07)
[2024-05-30] MEDS: HYDROmorphone HCl 0.5 MG/0.5 ML SYRINGE IVPUSH ×4 (00:19→23:36)
[2024-05-30 03:42] VITALS: BP 130/61; PULSE 76; RESP 19; O2SAT 95
[2024-05-30] MEDS: Omeprazole 40 MG CAPSULE.DR PO (06:32)
[2024-05-30 07:07] VITALS: BP 133/66; PULSE 95; RESP 20; TEMP 37.2; O2SAT 99
--- NOTE | 2024-05-30 08:05 | P.PNGS_ITS ---
Subjective Subjective Date of Service: 05/31/24 Interval history: same complaints of pain and tenderness all over her body no new events reported Physical Exam 2 Vital Signs: Vital Signs: Last Vital Signs Temp 99.0 F 05/30/24 07:07 Pulse 95 05/30/24 07:07 Resp 20 05/30/24 07:07 BP 133/66 05/30/24 07:07 Pulse Ox 99 05/30/24 07:07 O2 Del Method Room Air 05/30/24 07:07 BMI result Body Mass Index 40.3 Const: Other: c/o pain all over Resp: Other: mildly short of breath Cardio: Rate: regular rate GI: Palpation (GI): Soft to palpation Back/Spine/Pelvis: Other: right hip - large pressure ulcer with thick eschar Extrem: Other: right heel ulcer with exposed calcaneus,, dry, no pus or cellulitis. thin eschar noted left foot open wound clean and granulating well Objective Data Active Medications Acetaminophen (Acetaminophen 325 Mg Tablet) 650 mg PO Q6H PRN PRN Reason: Pain, Mild 1-3,fever,headache Last Admin: 05/29/24 08:59 Dose: 650 mg Documented By: DOC Amlodipine Besylate (Amlodipine Besylate 10 Mg Tablet) 10 mg PO DAILY [facility]; Protocol Last Admin: 05/29/24 08:56 Dose: 10 mg Documented By: DOC Atorvastatin Calcium (Atorvastatin Calcium 80 Mg Tablet) 80 mg PO DAILY [facility] Last Admin: 05/29/24 08:56 Dose: 80 mg Documented By: DOC Calcium Carbonate (Calcium Carbonate 750 Mg Tab.Chew) 750 mg PO Q4H PRN PRN Reason: Heartburn Ferrous Sulfate (Ferrous Sulfate 324 Mg Tablet.Dr) 324 mg PO DAILY [facility] Last Admin: 05/29/24 08:55 Dose: 324 mg Documented By: DOC Folic Acid (Folic Acid 1 Mg Tablet) 1 mg PO DAILY [facility] Last Admin: 05/29/24 08:55 Dose: 1 mg Documented By: DOC Furosemide (Furosemide 40 Mg Tablet) 80 mg PO BIDWM [facility]; Protocol Last Admin: 05/29/24 17:28 Dose: 80 mg Documented By: DOC Gabapentin (Gabapentin 300 Mg Capsule) 300 mg PO MOWEFR@1800 [facility] Last Admin: 05/29/24 17:28 Dose: 300 mg Documented By: DOC Gabapentin (Gabapentin 100 Mg Capsule) 200 mg PO DAILY [facility] Last Admin: 05/29/24 08:56 Dose: 200 mg Documented By: DOC Hydromorphone HCl (Hydromorphone Hcl 0.5 Mg/0.5 Ml Syringe) 0.5 mg IVPUSH Q4H PRN; Protocol PRN Reason: Pain, Severe (Pain Scale 7-10) Last Admin: 05/30/24 00:19 Dose: 0.5 mg Documented By: BREANNE Vancomycin HCl 500 mg/ Sodium (Chloride) 110 mls @ 110 mls/hr IV ONCE ONE Stop: 05/27/24 16:59 Insulin Glargine (Insulin Glargine,Hum.Rec.Anlog 100 Unit/Ml 10 Ml Vial) 10 unit SUBCUT BEDTIME [facility] Last Admin: 05/29/24 20:57 Dose: 10 unit Documented By: BREANNE Levetiracetam (Levetiracetam 500 Mg Tablet) 500 mg PO MOWEFR@1800 [facility] Last Admin: 05/29/24 17:28 Dose: 500 mg Documented By: DOC Lorazepam (Lorazepam 0.5 Mg Tablet) 0.5 mg PO DAILY PRN PRN Reason: anxiety Losartan Potassium (Losartan Potassium 50 Mg Tablet) 100 mg PO BID [facility]; Protocol Last Admin: 05/29/24 23:06 Dose: 100 mg Documented By: BREANNE Magnesium Hydroxide (Milk Of Magnesia 30 Ml Oral.Susp) 30 ml PO DAILY PRN PRN Reason: Constipation Melatonin (Melatonin 3 Mg Tablet) 6 mg PO BEDTIME PRN PRN Reason: Insomnia Last Admin: 05/29/24 00:52 Dose: 6 mg Documented By: BREANNE Nystatin (Nystatin Powder 15 Gm Bottle) 1 appl TOPICAL TID [facility]; Protocol Last Admin: 05/29/24 23:08 Dose: 1 appl Documented By: BREANNE Omeprazole (Omeprazole 40 Mg Capsule.Dr) 40 mg PO DAILY@0630 [facility] Last Admin: 05/30/24 06:32 Dose: 40 mg Documented By: BREANNE Ondansetron HCl (Ondansetron Hcl 4 Mg/2 Ml Vial) 4 mg IVPUSH Q8H PRN PRN Reason: Nausea and Vomiting Last Admin: 05/28/24 09:26 Dose: 4 mg Documented By: DOBROB Oxycodone HCl (Oxycodone Hcl Immed Release 5 Mg Tablet) 5 mg PO Q4H PRN PRN Reason: Pain, Severe (Pain Scale 7-10) Last Admin: 05/29/24 23:07 Dose: 5 mg Documented By: BREANNE Pharmacy Consult (Consult Rx Vancomycin Dosing) 1 each MISCELLANE DAILY PRN PRN Reason: Consult order Phenytoin Sodium (Phenytoin Sodium Extended 100 Mg Capsule) 100 mg PO TID [facility] Last Admin: 05/29/24 23:07 Dose: 100 mg Documented By: BREANNE Sertraline HCl (Sertraline Hcl 50 Mg Tablet) 50 mg PO DAILY [facility] Last Admin: 05/29/24 08:55 Dose: 50 mg Documented By: DOC Sodium Chloride (0.9 % Sodium Chloride Flush 3 Ml Syringe) 3 ml IVFLUSH QSHIFT [facility] Last Admin: 05/29/24 20:57 Dose: 3 ml Documented By: BREANNE Sodium Hypochlorite (Sodium Hypochlorite 0.5% 473 Ml Solution) 1 appl TOPICAL DAILY [facility] Last Admin: 05/29/24 17:30 Dose: 1 appl Documented By: DOC Tramadol HCl (Tramadol Hcl 50 Mg Tablet) 25 mg PO Q6H PRN PRN Reason: Pain, Severe (Pain Scale 7-10) Last Admin: 05/29/24 17:28 Dose: 25 mg Documented By: DOC Trazodone HCl (Trazodone Hcl 100 Mg Tablet) 100 mg PO BEDTIME [facility] Last Admin: 05/29/24 23:07 Dose: 100 mg Documented By: BREANNE Valproic Acid (Valproic Acid 250 Mg Capsule) 500 mg PO BID [facility] Last Admin: 05/29/24 23:07 Dose: 500 mg Documented By: BREANNE Labs 05/29/24 10:18 05/30/24 09:35 Labs: Laboratory Results - last 24 hr 05/28/24 05/29/24 05/29/24 07:36 09:00 10:18 MCV 86.3 MCH 29.2 MCHC 33.9 RDW 19.8 H Plt Count 24 L D TNP MPV TNP Absolute Nucleated RBC 0.000 Nucleated RBC % (auto) 0.0 Anion Gap 19 Estim Creat Clear Calc 12.5 Estimated GFR 9 Random Glucose 126 H Calcium 7.9 L Vitamin B12 1465 H Folate 11.5 Random Vancomycin 05/29/24 05/29/24 14:11 19:59 MCV MCH MCHC RDW Plt Count MPV Absolute Nucleated RBC Nucleated RBC % (auto) Anion Gap Estim Creat Clear Calc 12.8 Estimated GFR 9 Random Glucose Calcium Vitamin B12 Folate Random Vancomycin 36.5 H* Microbiology Microbiology Results: Microbiology 05/27/24 12:50 Blood Culture - Preliminary Blood - Venous No growth after 48 hours. 05/27/24 12:49 Blood Culture - Preliminary Blood - Venous No growth after 48 hours. Procedures Date of Service Date of Service: 05/31/24 Procedure Note Procedure Note: Procedure: sharp excisional debridement of right hip ulcer with thick eschar The patient was in left lat decub position Fine scissors used to debride full thickness of skin and part of subcutaneous layer area debrided was about 10 x 8 cm wet to dry dressings applied she tolerated the procedure minimal bleeding noted Progress Note: A&P Assessment and plan (1) Eschar of heel: Status: Acute Assessment and Plan: dressings chnaged wet to dry applied, foot wrapped with Vinny roll she is unable to follow bedsore precautions - keeps pushing pillow away from lower leg continue wound care (2) Eschar of trunk: Status: Acute Assessment and Plan: large ulcer with thick eschar on right hip sharp excisional debridement of full thickness of skin and part of subcutaneous layer done with scissors area about 10 x 8 cm debrided wet to dry applied good wound care daily Time Spent With Patient Time: Total time managing care of this patient today ____ minutes. Quality Stroke Does the patient have a stroke diagnosis?: No VTE Prior VTE?: No VTE Risk Level:: Medical - moderate - high VTE Device Contraindication: N/A - Device Ordered VTE Drug Contraindication: Treatment Not Indicated
[2024-05-30] MEDS: Atorvastatin Calcium 80 MG TABLET PO (08:22)
[2024-05-30] MEDS: Valproic Acid 250 MG CAPSULE 500 MG PO ×2 (08:22→20:57)
[2024-05-30] MEDS: Ferrous Sulfate 324 MG TABLET.DR PO (08:22)
[2024-05-30] MEDS: Gabapentin 100 MG CAPSULE 200 MG PO (08:22)
[2024-05-30] MEDS: Phenytoin Sodium Extended 100 MG CAPSULE PO ×3 (08:22→20:57)
[2024-05-30] MEDS: Furosemide 40 MG TABLET 80 MG PO ×2 (08:22→16:02)
[2024-05-30] MEDS: Folic Acid 1 MG TABLET PO (08:23)
[2024-05-30] MEDS: 0.9 % Sodium Chloride Flush 3 ML SYRINGE IVFLUSH ×3 (08:23→20:54)
[2024-05-30] MEDS: amLODIPine Besylate 10 MG TABLET PO (08:23)
[2024-05-30] MEDS: Losartan Potassium 50 MG TABLET 100 MG PO ×2 (08:23→20:57)
[2024-05-30] MEDS: Sertraline HCL 50 MG TABLET PO (08:23)
[2024-05-30] MEDS: Nystatin Powder 15 GM BOTTLE 1 APPL TOPICAL ×3 (08:24→20:54)
[2024-05-30] MEDS: Sodium Hypochlorite 0.5% 473 ML SOLUTION 1 APPL TOPICAL (08:24)
[2024-05-30 10:37] LABS: Anion Gap 20 (12-20); Blood Urea Nitrogen 48 mg/dL (9-16); Calcium 8.5 mg/dL (8.4-10.2); Carbon Dioxide 19 mmol/L (22-29); Chloride 108 mmol/L (96-108); Glucose Random 102 mg/dL (60-115); Sodium 143 mmol/L (135-145)
[2024-05-30 10:38] LABS: Creatinine Clr Calc Pharmacy 12.1; Estimated Glomerular Filt Rate 9
[2024-05-30 11:01] VITALS: BP 118/57; PULSE 90; RESP 20; TEMP 36.9; O2SAT 98
--- NOTE | 2024-05-30 11:09 | P.CONNP_ITS ---
History of Present Illness Reason for Consult Consult date: 05/30/24 Chief Complaint Chief complaint: Acute anemia History of Present Illness Narrative: 68 year old patient with history of ESRD resident at [facility] sent in with acute anemia requiring blood transfusion. Patient received 4 unitss of packed RBCs and was seen by GI. 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 She underwent sharp excisional debridement of right heel ulcer. At the time of the consultation she complains of pain. Review of Systems Review of Systems 10 points ROS negative except for pertinent in [facility] Past Medical History Medical History (Updated 05/30/24 @ 11:11 by Yo Sales MD) ESRD (end stage renal disease) Eschar of trunk Thrombocytopenia Fall Anemia of chronic renal failure, stage 4 (severe) Acute subdural hematoma ESRD (end stage renal disease) on dialysis Anemia Eschar of heel Generalized seizure Acute kidney injury CKD (chronic kidney disease) stage 3, GFR 30-59 ml/min CHF (congestive heart failure) Anemia Brain tumor (benign) Lower extremity edema Pneumonia Asthma Pulmonary nodule HLD (hyperlipidemia) Seizure Acute hypoxemic respiratory failure due to COVID-19 COVID-19 Kidney stone Depression Gastritis Diabetes Family History Family History Father CAD (coronary artery disease) Brother Lung cancer Sister Kidney stone Surgical History Surgical History (Updated 05/30/24 @ 00:01 by Sheila Hanna) 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 at this time Housing: House Are you a primary child care group leader to a significant other at home: No Unable to assess alcohol history related to: Unknown Alcohol intake: former Comment: pt sleeping at this time Patient Tobacco Use Status: Never used Tobacco e-Cigarette/Vaping Use: Never Used Use of substances other than those prescribed or required for medical reasons: No Currently Displaying Signs/Symptoms of Drug Intoxication Withdrawal: No Have you been hit, kicked, punched, or otherwise hurt by someone within the past year? If so, by whom?: No Do you feel safe in your current relationship?: No Current Relationship Is there a partner from a previous relationship who is making you feel unsafe now?: No Are you made to feel afraid or neglected: No Advance Directives: Yes Advance Directives on File: Yes Advance Directives Date on File: 12/20/21 Do you have a plan to hurt others: No Plan Recently lost weight without trying: No How much weight loss: Unsure Eating poorly because of decreased appetite: No Nutrition screen score: 2 Nutrition Risks: No Nutritional Risk Patient : No : No Poor oral hygiene: No service: No Current occupational status: unemployed Meds Allergies Allergy/AdvReac Type Severity Reaction Status Date / Time Egg Derived Allergy Unknown Verified 05/27/24 12:18 Active Medications: Current Medications Acetaminophen (Acetaminophen 325 Mg Tablet) 650 mg PO Q6H PRN PRN Reason: Pain, Mild 1-3,fever,headache Last Admin: 05/29/24 08:59 Dose: 650 mg Amlodipine Besylate (Amlodipine Besylate 10 Mg Tablet) 10 mg PO DAILY [facility]; Protocol Last Admin: 05/30/24 08:23 Dose: 10 mg Atorvastatin Calcium (Atorvastatin Calcium 80 Mg Tablet) 80 mg PO DAILY [facility] Last Admin: 05/30/24 08:22 Dose: 80 mg Calcium Carbonate (Calcium Carbonate 750 Mg Tab.Chew) 750 mg PO Q4H PRN PRN Reason: Heartburn Ferrous Sulfate (Ferrous Sulfate 324 Mg Tablet.Dr) 324 mg PO DAILY [facility] Last Admin: 05/30/24 08:22 Dose: 324 mg Folic Acid (Folic Acid 1 Mg Tablet) 1 mg PO DAILY [facility] Last Admin: 05/30/24 08:23 Dose: 1 mg Furosemide (Furosemide 40 Mg Tablet) 80 mg PO BIDWM [facility]; Protocol Last Admin: 05/30/24 08:22 Dose: 80 mg Gabapentin (Gabapentin 300 Mg Capsule) 300 mg PO MOWEFR@1800 [facility] Last Admin: 05/29/24 17:28 Dose: 300 mg Gabapentin (Gabapentin 100 Mg Capsule) 200 mg PO DAILY [facility] Last Admin: 05/30/24 08:22 Dose: 200 mg Hydromorphone HCl (Hydromorphone Hcl 0.5 Mg/0.5 Ml Syringe) 0.5 mg IVPUSH Q4H PRN; Protocol PRN Reason: Pain, Severe (Pain Scale 7-10) Last Admin: 05/30/24 08:22 Dose: 0.5 mg Vancomycin HCl 500 mg/ Sodium (Chloride) 110 mls @ 110 mls/hr IV ONCE ONE Stop: 05/27/24 16:59 Insulin Glargine (Insulin Glargine,Hum.Rec.Anlog 100 Unit/Ml 10 Ml Vial) 10 unit SUBCUT BEDTIME [facility] Last Admin: 05/29/24 20:57 Dose: 10 unit Levetiracetam (Levetiracetam 500 Mg Tablet) 500 mg PO MOWEFR@1800 [facility] Last Admin: 05/29/24 17:28 Dose: 500 mg Lorazepam (Lorazepam 0.5 Mg Tablet) 0.5 mg PO DAILY PRN PRN Reason: anxiety Losartan Potassium (Losartan Potassium 50 Mg Tablet) 100 mg PO BID [facility]; Protocol Last Admin: 05/30/24 08:23 Dose: 100 mg Magnesium Hydroxide (Milk Of Magnesia 30 Ml Oral.Susp) 30 ml PO DAILY PRN PRN Reason: Constipation Melatonin (Melatonin 3 Mg Tablet) 6 mg PO BEDTIME PRN PRN Reason: Insomnia Last Admin: 05/29/24 00:52 Dose: 6 mg Nystatin (Nystatin Powder 15 Gm Bottle) 1 appl TOPICAL TID [facility]; Protocol Last Admin: 05/30/24 08:24 Dose: 1 appl Omeprazole (Omeprazole 40 Mg Capsule.Dr) 40 mg PO DAILY@0630 [facility] Last Admin: 05/30/24 06:32 Dose: 40 mg Ondansetron HCl (Ondansetron Hcl 4 Mg/2 Ml Vial) 4 mg IVPUSH Q8H PRN PRN Reason: Nausea and Vomiting Last Admin: 05/28/24 09:26 Dose: 4 mg Oxycodone HCl (Oxycodone Hcl Immed Release 5 Mg Tablet) 5 mg PO Q4H PRN PRN Reason: Pain, Severe (Pain Scale 7-10) Last Admin: 05/29/24 23:07 Dose: 5 mg Pharmacy Consult (Consult Rx Vancomycin Dosing) 1 each MISCELLANE DAILY PRN PRN Reason: Consult order Phenytoin Sodium (Phenytoin Sodium Extended 100 Mg Capsule) 100 mg PO TID [facility] Last Admin: 05/30/24 08:22 Dose: 100 mg Sertraline HCl (Sertraline Hcl 50 Mg Tablet) 50 mg PO DAILY [facility] Last Admin: 05/30/24 08:23 Dose: 50 mg Sodium Chloride (0.9 % Sodium Chloride Flush 3 Ml Syringe) 3 ml IVFLUSH QSHIFT [facility] Last Admin: 05/30/24 08:23 Dose: 3 ml Sodium Hypochlorite (Sodium Hypochlorite 0.5% 473 Ml Solution) 1 appl TOPICAL DAILY [facility] Last Admin: 05/30/24 08:24 Dose: 1 appl Tramadol HCl (Tramadol Hcl 50 Mg Tablet) 25 mg PO Q6H PRN PRN Reason: Pain, Severe (Pain Scale 7-10) Last Admin: 05/29/24 17:28 Dose: 25 mg Trazodone HCl (Trazodone Hcl 100 Mg Tablet) 100 mg PO BEDTIME [facility] Last Admin: 05/29/24 23:07 Dose: 100 mg Valproic Acid (Valproic Acid 250 Mg Capsule) 500 mg PO BID [facility] Last Admin: 05/30/24 08:22 Dose: 500 mg Home Medications ?Medication ?Instructions ?Recorded ?Confirmed ?Last Taken ?Type blood sugar diagnostic (FreeStyle 03/28/20 09/09/22 Unknown History Lite Strips) blood-glucose meter (FreeStyle 03/28/20 09/09/22 Unknown History [place] Lite kit) lancets 28 gauge (FreeStyle 03/28/20 09/09/22 Unknown History Lancets) omeprazole 40 mg capsule,delayed 40 mg PO BID@0630,1630 10/02/21 05/27/24 03/21/24 History release blood pressure test kit-large #1 ea 10/12/21 09/09/22 Unknown History atorvastatin 80 mg tablet 80 mg PO DAILY 12/20/21 05/27/24 03/21/24 History nebulizers 01/20/22 09/09/22 Unknown History amlodipine 10 mg tablet 10 mg PO DAILY 05/29/22 05/27/24 03/21/24 History lancets 33 gauge (TRUEplus Lancets) #100 ea 06/07/22 09/09/22 Unknown History ferrous gluconate 324 mg (38 mg 324 mg PO DAILY 11/24/22 05/27/24 03/21/24 History iron) tablet acetaminophen 650 mg 650 mg PO Q8H PRN mild pain 03/22/24 05/27/24 Unknown History tablet,extended release diclofenac sodium 1 % topical gel 2 g topical BEDTIME PRN Pain 03/22/24 05/27/24 03/21/24 History losartan 100 mg tablet 100 mg PO BID 03/22/24 05/27/24 03/21/24 History valproic acid 250 mg capsule 500 mg PO BID 03/22/24 05/27/24 03/21/24 History furosemide 40 mg tablet 80 mg PO BID 05/04/24 05/27/24 Unknown History gabapentin 100 mg capsule 200 mg PO DAILY 05/04/24 05/27/24 Unknown History gabapentin 300 mg capsule 300 mg PO MOWEFR@1800 05/04/24 05/27/24 Unknown History levetiracetam 500 mg tablet 500 mg PO MOWEFR@1800 05/04/24 05/27/24 Unknown History lorazepam 0.5 mg tablet 0.5 mg PO DAILY PRN anxiety 05/04/24 05/27/24 Unknown History sertraline 50 mg tablet 50 mg PO DAILY 05/04/24 05/27/24 Unknown History cholecalciferol (vitamin D3) 25 50 mcg PO DAILY 05/27/24 05/27/24 Unknown History mcg (1,000 unit) tablet (Vitamin D3) dextrose 40 % oral gel (Glucose 10 g PO Q15M PRN low blood sugar 05/27/24 05/27/24 Unknown History Gel) epoetin gabino-epbx 10,000 unit/mL 10,000 unit subcut MOWEFR@1645 05/27/24 05/27/24 05/20/24 History injection solution (Retacrit) glucagon 1 mg solution for 1 mg subcut Q20M PRN low blood 05/27/24 05/27/24 Unknown History injection (Glucagon Emergency Kit) sugar trazodone 50 mg tablet 100 mg PO BEDTIME 05/27/24 05/27/24 Unknown History vancomycin 500 mg intravenous 500 mg PO MOWEFR@1645 05/27/24 05/27/24 Unknown History solution Physical Exam Vital Signs: Last Vital Signs Temp 98.5 F 05/30/24 11:01 Pulse 90 05/30/24 11:01 Resp 20 05/30/24 11:01 BP 118/57 L 05/30/24 11:01 Pulse Ox 98 05/30/24 11:01 O2 Del Method Room Air 05/30/24 11:01 BMI result Body Mass Index 40.3 Const General: no acute distress HEENT Head: Yes normocephalic and Yes atraumatic Neck Neck: Yes supple Resp Auscultation: diminished lung sounds Cardio Heart sounds: S1 normal heart sound present and S2 normal heart sound present GI Palpation (GI): Soft to palpation and nontender Results Lab Results 05/29/24 10:18 05/30/24 09:35 Lab results: Chemistry 05/27/24 05/28/24 05/29/24 12:41 07:36 10:18 Sodium 142 142 144 Potassium 3.3 3.2 L 3.8 Carbon Dioxide 19 L 18 L 20 L BUN 29 H 33 H 45 H Creatinine 3.82 H 4.20 H* 4.80 H* Calcium 7.7 L 7.7 L 7.9 L 05/29/24 05/30/24 19:59 09:35 Sodium 143 Potassium 4.0 Carbon Dioxide 19 L BUN 48 H Creatinine 4.69 H* 4.97 H* Calcium 8.5 D Hematology 05/27/24 05/27/24 05/28/24 12:42 23:09 07:36 WBC 13.9 H 12.9 H Hgb 5.4 L* 7.3 L D 6.8 L* Plt Count TNP 24 L D 05/28/24 05/29/24 22:08 10:18 WBC 13.3 H Hgb 9.2 L D 8.3 L Plt Count TNP Assessment and Plan (1) ESRD (end stage renal disease): Status: Acute (2) Anemia: Status: Acute (3) Calciphylaxis: Status: Acute (4) Osteomyelitis: Qualifiers: Laterality: left Osteomyelitis location: foot Osteomyelitis type: o ther acute Qualified Code(s): M86.172 - Other acute osteomyelitis, left ankle and foot Status: Acute Plan ESRD on HD at [facility] left foot cellulitis/ oseomyelitis nephrogenic anemia per GI: high risk for procedure REC HD tomorrow avoid calcium based products sodium thiosultfate 12.5 g post HD ABx per primary team wound care surgery followup renal diet P binders retacrit [id number] units sc [id number] goal of care discussion Procedures Date of Service Date of Service: 05/30/24
[2024-05-30] MEDS: oxyCODONE HCl Immed Release 5 MG TABLET PO ×2 (14:39→19:04)
--- NOTE | 2024-05-30 15:13 | HO.PM.IMPN ---
Subjective Subjective Date of Service: 05/30/24 Interval History: This history was taken in French from the patient. C/o ongoing pain all over body Review of Systems Review of Systems: Yes all other systems are reviewed and are negative Physical Exam Vital Signs: Vital Signs: Last Vital Signs Temp 98.5 F 05/30/24 11:01 Pulse 90 05/30/24 11:01 Resp 20 05/30/24 11:01 BP 118/57 L 05/30/24 11:01 Pulse Ox 98 05/30/24 11:01 O2 Del Method Room Air 05/30/24 11:01 BMI result Body Mass Index 40.3 Gen: in no acute distress HEENT: sclera anicteric, moist mucus membranes Neck: supple Lungs: clear to auscultation bilaterally, RIJ HD catheter Heart: regular rate and rhythm, no murmurs Abd: soft, non-tender, non-distended, obese Ext: no edema Skin: warm/well-perfused, multiple necrotic ulcers with eschar on R hip, L calf, R heel with exposed bone Neuro: alert and oriented x3, no focal findings Psych: appropriate affect Objective Data Active Medications Acetaminophen (Acetaminophen 325 Mg Tablet) 650 mg PO Q6H PRN PRN Reason: Pain, Mild 1-3,fever,headache Last Admin: 05/29/24 08:59 Dose: 650 mg Documented By: DOC Amlodipine Besylate (Amlodipine Besylate 10 Mg Tablet) 10 mg PO DAILY [facility]; Protocol Last Admin: 05/30/24 08:23 Dose: 10 mg Documented By: DOC Atorvastatin Calcium (Atorvastatin Calcium 80 Mg Tablet) 80 mg PO DAILY [facility] Last Admin: 05/30/24 08:22 Dose: 80 mg Documented By: DOC Calcium Carbonate (Calcium Carbonate 750 Mg Tab.Chew) 750 mg PO Q4H PRN PRN Reason: Heartburn Epoetin Wesley-epbx (Epoetin Wesley-Epbx 10,000 Unit/Ml Vial) 10,000 unit SUBCUT TuTa@8097 [facility] Ferrous Sulfate (Ferrous Sulfate 324 Mg Tablet.) 324 mg PO DAILY [facility] Last Admin: 05/30/24 08:22 Dose: 324 mg Documented By: DOC Folic Acid (Folic Acid 1 Mg Tablet) 1 mg PO DAILY [facility] Last Admin: 05/30/24 08:23 Dose: 1 mg Documented By: DOC Furosemide (Furosemide 40 Mg Tablet) 80 mg PO BIDWM [facility]; Protocol Last Admin: 05/30/24 08:22 Dose: 80 mg Documented By: DOC Gabapentin (Gabapentin 300 Mg Capsule) 300 mg PO MOWEFR@1800 KATHERINE Last Admin: 05/29/24 17:28 Dose: 300 mg Documented By: DOC Gabapentin (Gabapentin 100 Mg Capsule) 200 mg PO DAILY [facility] Last Admin: 05/30/24 08:22 Dose: 200 mg Documented By: DOC Hydromorphone HCl (Hydromorphone Hcl 0.5 Mg/0.5 Ml Syringe) 0.5 mg IVPUSH Q4H PRN; Protocol PRN Reason: Pain, Severe (Pain Scale 7-10) Last Admin: 05/30/24 08:22 Dose: 0.5 mg Documented By: DOC Vancomycin HCl 500 mg/ Sodium (Chloride) 110 mls @ 110 mls/hr IV ONCE ONE Stop: 05/27/24 16:59 Insulin Glargine (Insulin Glargine,Hum.Rec.Anlog 100 Unit/Ml 10 Ml Vial) 10 unit SUBCUT BEDTIME [facility] Last Admin: 05/29/24 20:57 Dose: 10 unit Documented By: ANTOINManuel Levetiracetam (Levetiracetam 500 Mg Tablet) 500 mg PO MOWEFR@1800 [facility] Last Admin: 05/29/24 17:28 Dose: 500 mg Documented By: DOC Lorazepam (Lorazepam 0.5 Mg Tablet) 0.5 mg PO DAILY PRN PRN Reason: anxiety Losartan Potassium (Losartan Potassium 50 Mg Tablet) 100 mg PO BID [facility]; Protocol Last Admin: 05/30/24 08:23 Dose: 100 mg Documented By: DOC Magnesium Hydroxide (Milk Of Magnesia 30 Ml Oral.Susp) 30 ml PO DAILY PRN PRN Reason: Constipation Melatonin (Melatonin 3 Mg Tablet) 6 mg PO BEDTIME PRN PRN Reason: Insomnia Last Admin: 05/29/24 00:52 Dose: 6 mg Documented By: ANTOINC Nystatin (Nystatin Powder 15 Gm Bottle) 1 appl TOPICAL TID [facility]; Protocol Last Admin: 05/30/24 14:39 Dose: 1 appl Documented By: DOC Omeprazole (Omeprazole 40 Mg Capsule.) 40 mg PO DAILY@0630 [facility] Last Admin: 05/30/24 06:32 Dose: 40 mg Documented By: ANTOINC Ondansetron HCl (Ondansetron Hcl 4 Mg/2 Ml Vial) 4 mg IVPUSH Q8H PRN PRN Reason: Nausea and Vomiting Last Admin: 05/28/24 09:26 Dose: 4 mg Documented By: DOBROB Oxycodone HCl (Oxycodone Hcl Immed Release 5 Mg Tablet) 5 mg PO Q4H PRN PRN Reason: Pain, Severe (Pain Scale 7-10) Last Admin: 05/30/24 14:39 Dose: 5 mg Documented By: DOC Pharmacy Consult (Consult Rx Vancomycin Dosing) 1 each MISCELLANE DAILY PRN PRN Reason: Consult order Phenytoin Sodium (Phenytoin Sodium Extended 100 Mg Capsule) 100 mg PO TID [facility] Last Admin: 05/30/24 14:39 Dose: 100 mg Documented By: DOC Sertraline HCl (Sertraline Hcl 50 Mg Tablet) 50 mg PO DAILY [facility] Last Admin: 05/30/24 08:23 Dose: 50 mg Documented By: DOC Sodium Chloride (0.9 % Sodium Chloride Flush 3 Ml Syringe) 3 ml IVFLUSH QSHIFT [facility] Last Admin: 05/30/24 08:23 Dose: 3 ml Documented By: DOC Sodium Hypochlorite (Sodium Hypochlorite 0.5% 473 Ml Solution) 1 appl TOPICAL DAILY [facility] Last Admin: 05/30/24 08:24 Dose: 1 appl Documented By: DOC Tramadol HCl (Tramadol Hcl 50 Mg Tablet) 25 mg PO Q6H PRN PRN Reason: Pain, Severe (Pain Scale 7-10) Last Admin: 05/29/24 17:28 Dose: 25 mg Documented By: DOC Trazodone HCl (Trazodone Hcl 100 Mg Tablet) 100 mg PO BEDTIME [facility] Last Admin: 05/29/24 23:07 Dose: 100 mg Documented By: ANTOINManuel Valproic Acid (Valproic Acid 250 Mg Capsule) 500 mg PO BID [facility] Last Admin: 05/30/24 08:22 Dose: 500 mg Documented By: DOC Labs 05/29/24 10:18 05/30/24 09:35 Labs: Laboratory Results - last 24 hr 05/29/24 05/29/24 05/30/24 14:11 19:59 09:35 Anion Gap 20 Estim Creat Clear Calc 12.8 12.1 Estimated GFR 9 9 Random Glucose 102 Calcium 8.5 D Random Vancomycin 36.5 H* Microbiology Microbiology Results: Microbiology 05/27/24 12:50 Blood Culture - Preliminary Blood - Venous No growth after 48 hours. 05/27/24 12:49 Blood Culture - Preliminary Blood - Venous No growth after 48 hours. Assessment and Plan (1) Anemia: Status: Inactive Assessment and Plan: d4 for 68yo F LTC resident at [facility] sent in with acute/chronic anemia requiring transfusion acute/chronic anemia of ESRD - Hb 5.4 on presentation, improved to 9.2 after 4u pRBCs transfused, now 8.3 - GI consulted: high risk for any procedures, for now continue supportive care with transfusions, Procrit, iron, and omeprazole; avoid NSAIDs + aspirin 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 Dakins ordered - s/p sharp excisional debridement of R heel ulcer 05/28; may eventually need BKA given exposed calcaneus - s/p sharp excisional debridement of full thickness of skin and part of subcutaneous layer done with scissors; area about 10 x 8 cm debrided; wet to dry applied 05/30 - wound culture growing multiply resistant Proteus mirabilis as well as VRE; consult Infecitous Disease - pain control with PO oxycodone, IV hydromorphone DM2 - basal-bolus insulin ESRD - HD MWF osteomyelitis L foot - continue vancomycin as from previous admission; end date 07/02/24; hold dose for supratherapeutic level; recheck level after next HD tomorrow seizure disorder - continue levetiracetam, valproate, phenytoin HTN - continue amlodipine, losartan mood disorder - continue sertraline, lorazepam, trazodone neuropathy - continue gabapentin HLD - continue statin VTE ppx - SCDs dispo - eventual return to LTC In my clinical judgment, the patient requires continued inpatient hospitalization for the following reasons: wound care, anemia Total time managing care of this patient today: 45 minutes. Quality Stroke Does the patient have a stroke diagnosis?: No VTE Prior VTE?: No VTE Risk Level:: Medical - moderate - high VTE Device Contraindication: N/A - Device Ordered VTE Drug Contraindication: Treatment Not Indicated
[2024-05-30 16:00] VITALS: BP 138/73; PULSE 85; RESP 20; TEMP 36.6; O2SAT 98
[2024-05-30 16:02] VITALS: BP 118/57
[2024-05-30] MEDS: Epoetin Alfa-epbx 10,000 UNIT/ML VIAL 10000 UNIT SUBCUT (16:02)
[2024-05-30 19:55] VITALS: BP 117/86; PULSE 86; RESP 14; TEMP 36.2; O2SAT 98
[2024-05-30] MEDS: Insulin Glargine,Hum.rec.anlog 100 UNIT/ML 10 ML VIAL 10 UNIT SUBCUT (20:53)
[2024-05-30] MEDS: traZODone HCL 100 MG TABLET PO (20:58)
[2024-05-31] VITALS: BP 119/58; PULSE 104; RESP 18; TEMP 36.6; O2SAT 95
[2024-05-31] MEDS: oxyCODONE HCl Immed Release 5 MG TABLET PO ×4 (00:55→20:35)
[2024-05-31 04:00] VITALS: BP 113/60; PULSE 86; RESP 16; TEMP 36.1; O2SAT 97
[2024-05-31] MEDS: Omeprazole 40 MG CAPSULE.DR PO (05:50)
[2024-05-31 08:00] VITALS: BP 117/64; PULSE 125; RESP 18; TEMP 36.8; O2SAT 94
[2024-05-31] MEDS: amLODIPine Besylate 10 MG TABLET PO (08:21)
[2024-05-31] MEDS: Atorvastatin Calcium 80 MG TABLET PO (08:22)
[2024-05-31] MEDS: Gabapentin 100 MG CAPSULE 200 MG PO (08:22)
[2024-05-31] MEDS: Sertraline HCL 50 MG TABLET PO (08:22)
[2024-05-31] MEDS: Losartan Potassium 50 MG TABLET 100 MG PO ×2 (08:23→20:34)
[2024-05-31] MEDS: Phenytoin Sodium Extended 100 MG CAPSULE PO ×3 (08:24→20:34)
[2024-05-31] MEDS: Ferrous Sulfate 324 MG TABLET.DR PO (08:24)
[2024-05-31] MEDS: Valproic Acid 250 MG CAPSULE 500 MG PO ×2 (08:24→20:34)
[2024-05-31] MEDS: Furosemide 40 MG TABLET 80 MG PO ×2 (08:24→18:10)
[2024-05-31] MEDS: Folic Acid 1 MG TABLET PO (08:24)
[2024-05-31] MEDS: 0.9 % Sodium Chloride Flush 3 ML SYRINGE IVFLUSH ×3 (08:25→20:35)
--- NOTE | 2024-05-31 08:26 | P.PNGS_ITS ---
Subjective Subjective Date of Service: 05/31/24 Interval history: Same complains of pain diffusely She says she has pain all over her body Tender even on the skin No new events Physical Exam 2 Vital Signs: Vital Signs: Last Vital Signs Temp 97 F 05/31/24 04:00 Pulse 86 05/31/24 04:00 Resp 16 05/31/24 04:00 BP 113/60 05/31/24 04:00 Pulse Ox 97 05/31/24 04:00 O2 Del Method Room Air 05/31/24 04:00 BMI result Body Mass Index 40.3 Const: Other: Complains of pain Resp: Other: Mildly short of breath Cardio: Rate: regular rate GI: Palpation (GI): Soft to palpation Skin: Other: Large right hip pressure ulcer, with some areas of patchy eschar, no pus or cellulitis Right heel ulcer, dry, exposed calcaneus, with patchy eschar, no cellulitis Open wound on the left foot at the 5th toe amputation site clean, granulating well Objective Data Active Medications Acetaminophen (Acetaminophen 325 Mg Tablet) 650 mg PO Q6H PRN PRN Reason: Pain, Mild 1-3,fever,headache Last Admin: 05/29/24 08:59 Dose: 650 mg Documented By: DOC Amlodipine Besylate (Amlodipine Besylate 10 Mg Tablet) 10 mg PO DAILY [facility]; Protocol Last Admin: 05/31/24 08:21 Dose: 10 mg Documented By: ALISON Atorvastatin Calcium (Atorvastatin Calcium 80 Mg Tablet) 80 mg PO DAILY [facility] Last Admin: 05/31/24 08:22 Dose: 80 mg Documented By: ALISON Calcium Carbonate (Calcium Carbonate 750 Mg Tab.Chew) 750 mg PO Q4H PRN PRN Reason: Heartburn Epoetin Wesley-epbx (Epoetin Wesley-Epbx 10,000 Unit/Ml Vial) 10,000 unit SUBCUT TuTa@2054 [facility] Last Admin: 05/30/24 16:02 Dose: 10,000 unit Documented By: DOC Ferrous Sulfate (Ferrous Sulfate 324 Mg Tablet.) 324 mg PO DAILY [facility] Last Admin: 05/31/24 08:24 Dose: 324 mg Documented By: ALISON Folic Acid (Folic Acid 1 Mg Tablet) 1 mg PO DAILY [facility] Last Admin: 05/31/24 08:24 Dose: 1 mg Documented By: ALISON Furosemide (Furosemide 40 Mg Tablet) 80 mg PO BIDWM [facility]; Protocol Last Admin: 05/31/24 08:24 Dose: 80 mg Documented By: ALISON Gabapentin (Gabapentin 300 Mg Capsule) 300 mg PO MOWEFR@1800 [facility] Last Admin: 05/29/24 17:28 Dose: 300 mg Documented By: DOC Gabapentin (Gabapentin 100 Mg Capsule) 200 mg PO DAILY [facility] Last Admin: 05/31/24 08:22 Dose: 200 mg Documented By: ALISON Hydromorphone HCl (Hydromorphone Hcl 0.5 Mg/0.5 Ml Syringe) 0.5 mg IVPUSH Q4H PRN; Protocol PRN Reason: Pain, Severe (Pain Scale 7-10) Last Admin: 05/30/24 23:36 Dose: 0.5 mg Documented By: QUANG Vancomycin HCl 500 mg/ Sodium (Chloride) 110 mls @ 110 mls/hr IV ONCE ONE Stop: 05/27/24 16:59 Insulin Glargine (Insulin Glargine,Hum.Rec.Anlog 100 Unit/Ml 10 Ml Vial) 10 unit SUBCUT BEDTIME [facility] Last Admin: 05/30/24 20:53 Dose: 10 unit Documented By: BREANNE Levetiracetam (Levetiracetam 500 Mg Tablet) 500 mg PO MOWEFR@1800 [facility] Last Admin: 05/29/24 17:28 Dose: 500 mg Documented By: DOC Lorazepam (Lorazepam 0.5 Mg Tablet) 0.5 mg PO DAILY PRN PRN Reason: anxiety Losartan Potassium (Losartan Potassium 50 Mg Tablet) 100 mg PO BID [facility]; Protocol Last Admin: 05/31/24 08:23 Dose: 100 mg Documented By: ALISON Magnesium Hydroxide (Milk Of Magnesia 30 Ml Oral.Susp) 30 ml PO DAILY PRN PRN Reason: Constipation Melatonin (Melatonin 3 Mg Tablet) 6 mg PO BEDTIME PRN PRN Reason: Insomnia Last Admin: 05/29/24 00:52 Dose: 6 mg Documented By: BREANNE Nystatin (Nystatin Powder 15 Gm Bottle) 1 appl TOPICAL TID [facility]; Protocol Last Admin: 05/30/24 20:54 Dose: 1 appl Documented By: BREANNE Omeprazole (Omeprazole 40 Mg Capsule.Dr) 40 mg PO DAILY@0630 [facility] Last Admin: 05/31/24 05:50 Dose: 40 mg Documented By: QUANG Ondansetron HCl (Ondansetron Hcl 4 Mg/2 Ml Vial) 4 mg IVPUSH Q8H PRN PRN Reason: Nausea and Vomiting Last Admin: 05/28/24 09:26 Dose: 4 mg Documented By: DOBROB Oxycodone HCl (Oxycodone Hcl Immed Release 5 Mg Tablet) 5 mg PO Q4H PRN PRN Reason: Pain, Severe (Pain Scale 7-10) Last Admin: 05/31/24 08:22 Dose: 5 mg Documented By: ALISON Pharmacy Consult (Consult Rx Vancomycin Dosing) 1 each MISCELLANE DAILY PRN PRN Reason: Consult order Phenytoin Sodium (Phenytoin Sodium Extended 100 Mg Capsule) 100 mg PO TID [facility] Last Admin: 05/31/24 08:24 Dose: 100 mg Documented By: ALISON Sertraline HCl (Sertraline Hcl 50 Mg Tablet) 50 mg PO DAILY [facility] Last Admin: 05/31/24 08:22 Dose: 50 mg Documented By: ALISON Sodium Chloride (0.9 % Sodium Chloride Flush 3 Ml Syringe) [address] [facility] Last Admin: 05/31/24 08:25 Dose: 3 ml Documented By: ALISON Sodium Hypochlorite (Sodium Hypochlorite 0.5% 473 Ml Solution) 1 appl TOPICAL DAILY [facility] Last Admin: 05/30/24 08:24 Dose: 1 appl Documented By: DOC Tramadol HCl (Tramadol Hcl 50 Mg Tablet) 25 mg PO Q6H PRN PRN Reason: Pain, Severe (Pain Scale 7-10) Last Admin: 05/29/24 17:28 Dose: 25 mg Documented By: DOC Trazodone HCl (Trazodone Hcl 100 Mg Tablet) 100 mg PO BEDTIME [facility] Last Admin: 05/30/24 20:58 Dose: 100 mg Documented By: ANTDAVID Valproic Acid (Valproic Acid 250 Mg Capsule) 500 mg PO BID [facility] Last Admin: 05/31/24 08:24 Dose: 250 mg Documented By: ALISON Labs 05/29/24 10:18 05/30/24 09:35 Labs: Laboratory Results - last 24 hr 05/30/24 09:35 Anion Gap 20 Estim Creat Clear Calc 12.1 Estimated GFR 9 Random Glucose 102 Calcium 8.5 D Procedures Date of Service Date of Service: 05/31/24 Progress Note: A&P Assessment and plan (1) Eschar of heel: Status: Acute Assessment and Plan: Wet-to-dry dressings changed today She keeps pushing pillow under the calf away so there is constant contact of heel with the bed Healing in the intermodal customer service unlikely Continue wound care Patient with multiple medical problems (2) Pressure ulcer of right hip: Status: Acute Assessment and Plan: Sharply debrided yesterday I have applied wet-to-dry dressings again today Needs good bed sore precautions Patient however with multiple comorbid conditions, frail, does not move in bed at all Open wound on the left foot clean, silver alginate dressings reapplied Time Spent With Patient Time: Total time managing care of this patient today ____ minutes. Quality Stroke Does the patient have a stroke diagnosis?: No VTE Prior VTE?: No VTE Risk Level:: Medical - moderate - high VTE Device Contraindication: N/A - Device Ordered VTE Drug Contraindication: Treatment Not Indicated
[2024-05-31 10:04] LABS: Hematocrit 23.7 % (37.0-47.0); Hemoglobin 7.5 g/dl (12.0-16.0); Mean Corpuscular HGB Conc 31.6 g/dl (31.0-35.0); Mean Corpuscular Hemoglobin 29.1 pg (27.0-33.0); Mean Corpuscular Volume 91.9 fL (80.0-98.0); Red Blood Count 2.58 X10*6/uL (4.20-5.50)
[2024-05-31 10:06] LABS: PLT CLUMP 1; Red Cell Distribution Width 19.4 % (11.0-16.0)
[2024-05-31 10:15] LABS: PLT ABN DIST 1; White Blood Count 13.6 X10*3/uL (4.8-10.8)
[2024-05-31 10:20] LABS: Anion Gap 19 (12-20); Blood Urea Nitrogen 48 mg/dL (9-16); Carbon Dioxide 20 mmol/L (22-29); Chloride 107 mmol/L (96-108); Creatinine Clr Calc Pharmacy 12.6; Estimated Glomerular Filt Rate 9; Glucose Random 105 mg/dL (60-115); Potassium 3.8 mmol/L (3.3-5.1); Sodium 142 mmol/L (135-145)
--- NOTE | 2024-05-31 10:25 | MHC.CM.PN ---
Per rounds, pt. requires continued care for wounds and anemia, anticipates that she will be able to return to [facility] at [facility] tomorrow.
--- NOTE | 2024-05-31 11:50 | P.PNIM_ITS ---
Subjective Subjective Date of Service: 05/31/24 Interval History: This history was taken in Pashto from the patient. Ongoing pain at wounds and all over body Review of Systems Review of Systems: Yes all other systems are reviewed and are negative Physical Exam 2 Vital Signs: Vital Signs: Last Vital Signs Temp 98.3 F 05/31/24 08:00 Pulse 125 H 05/31/24 08:00 Resp 18 05/31/24 08:00 BP 117/64 05/31/24 08:00 Pulse Ox 94 05/31/24 08:00 O2 Del Method Room Air 05/31/24 08:00 BMI result Body Mass Index 40.3 Gen: in no acute distress HEENT: sclera anicteric, moist mucus membranes Neck: supple Lungs: clear to auscultation bilaterally, RIJ HD catheter Heart: regular rate and rhythm, no murmurs Abd: soft, non-tender, non-distended, obese Ext: no edema Skin: warm/well-perfused, multiple pressure ulcers with eschar on R hip, L calf, L 5th toe amputation site, R heel with exposed bone Neuro: alert and oriented x3, no focal findings Psych: appropriate affect Objective Data Active Medications Acetaminophen (Acetaminophen 325 Mg Tablet) 650 mg PO Q6H PRN PRN Reason: Pain, Mild 1-3,fever,headache Last Admin: 05/29/24 08:59 Dose: 650 mg Documented By: DOC Amlodipine Besylate (Amlodipine Besylate 10 Mg Tablet) 10 mg PO DAILY [facility]; Protocol Last Admin: 05/31/24 08:21 Dose: 10 mg Documented By: ALISON Atorvastatin Calcium (Atorvastatin Calcium 80 Mg Tablet) 80 mg PO DAILY [facility] Last Admin: 05/31/24 08:22 Dose: 80 mg Documented By: ALISON Calcium Carbonate (Calcium Carbonate 750 Mg Tab.Chew) 750 mg PO Q4H PRN PRN Reason: Heartburn Epoetin Wesley-epbx (Epoetin Wesley-Epbx 10,000 Unit/Ml Vial) 10,000 unit SUBCUT Pasqualeantonio@4136 [facility] Last Admin: 05/30/24 16:02 Dose: 10,000 unit Documented By: DOC Ferrous Sulfate (Ferrous Sulfate 324 Mg Tablet.) 324 mg PO DAILY [facility] Last Admin: 05/31/24 08:24 Dose: 324 mg Documented By: ALISON Folic Acid (Folic Acid 1 Mg Tablet) 1 mg PO DAILY [facility] Last Admin: 05/31/24 08:24 Dose: 1 mg Documented By: ALISON Furosemide (Furosemide 40 Mg Tablet) 80 mg PO BIDWM [facility]; Protocol Last Admin: 05/31/24 08:24 Dose: 80 mg Documented By: ALISON Gabapentin (Gabapentin 300 Mg Capsule) 300 mg PO MOWEFR@1800 [facility] Last Admin: 05/29/24 17:28 Dose: 300 mg Documented By: DOC Gabapentin (Gabapentin 100 Mg Capsule) 200 mg PO DAILY [facility] Last Admin: 05/31/24 08:22 Dose: 200 mg Documented By: ALISON Hydromorphone HCl (Hydromorphone Hcl 0.5 Mg/0.5 Ml Syringe) 0.5 mg IVPUSH Q4H PRN; Protocol PRN Reason: Pain, Severe (Pain Scale 7-10) Last Admin: 05/30/24 23:36 Dose: 0.5 mg Documented By: QUANG Vancomycin HCl 500 mg/ Sodium (Chloride) 110 mls @ 110 mls/hr IV ONCE ONE Stop: 05/27/24 16:59 Insulin Glargine (Insulin Glargine,Hum.Rec.Anlog 100 Unit/Ml 10 Ml Vial) 10 unit SUBCUT BEDTIME [facility] Last Admin: 05/30/24 20:53 Dose: 10 unit Documented By: BREANNE Levetiracetam (Levetiracetam 500 Mg Tablet) 500 mg PO MOWEFR@1800 [facility] Last Admin: 05/29/24 17:28 Dose: 500 mg Documented By: DOC Lorazepam (Lorazepam 0.5 Mg Tablet) 0.5 mg PO DAILY PRN PRN Reason: anxiety Losartan Potassium (Losartan Potassium 50 Mg Tablet) 100 mg PO BID [facility]; Protocol Last Admin: 05/31/24 08:23 Dose: 100 mg Documented By: ALSION Magnesium Hydroxide (Milk Of Magnesia 30 Ml Oral.Susp) 30 ml PO DAILY PRN PRN Reason: Constipation Melatonin (Melatonin 3 Mg Tablet) 6 mg PO BEDTIME PRN PRN Reason: Insomnia Last Admin: 05/29/24 00:52 Dose: 6 mg Documented By: ANTOINManuel Nystatin (Nystatin Powder 15 Gm Bottle) 1 appl TOPICAL TID [facility]; Protocol Last Admin: 05/30/24 20:54 Dose: 1 appl Documented By: ANTDAVID Omeprazole (Omeprazole 40 Mg Capsule.Dr) 40 mg PO DAILY@0630 [facility] Last Admin: 05/31/24 05:50 Dose: 40 mg Documented By: QUANG Ondansetron HCl (Ondansetron Hcl 4 Mg/2 Ml Vial) 4 mg IVPUSH Q8H PRN PRN Reason: Nausea and Vomiting Last Admin: 05/28/24 09:26 Dose: 4 mg Documented By: DOBRODesirae Oxycodone HCl (Oxycodone Hcl Immed Release 5 Mg Tablet) 5 mg PO Q4H PRN PRN Reason: Pain, Severe (Pain Scale 7-10) Last Admin: 05/31/24 08:22 Dose: 5 mg Documented By: ALISON Pharmacy Consult (Consult Rx Vancomycin Dosing) 1 each MISCELLANE DAILY PRN PRN Reason: Consult order Phenytoin Sodium (Phenytoin Sodium Extended 100 Mg Capsule) 100 mg PO TID [facility] Last Admin: 05/31/24 08:24 Dose: 100 mg Documented By: ALISON Sertraline HCl (Sertraline Hcl 50 Mg Tablet) 50 mg PO DAILY [facility] Last Admin: 05/31/24 08:22 Dose: 50 mg Documented By: ALISON Sodium Chloride (0.9 % Sodium Chloride Flush 3 Ml Syringe) [facility] Last Admin: 05/31/24 08:25 Dose: 3 ml Documented By: ALISON Sodium Hypochlorite (Sodium Hypochlorite 0.5% 473 Ml Solution) 1 appl TOPICAL DAILY [facility] Last Admin: 05/30/24 08:24 Dose: 1 appl Documented By: DOC Tramadol HCl (Tramadol Hcl 50 Mg Tablet) 25 mg PO Q6H PRN PRN Reason: Pain, Severe (Pain Scale 7-10) Last Admin: 05/29/24 17:28 Dose: 25 mg Documented By: DOC Trazodone HCl (Trazodone Hcl 100 Mg Tablet) 100 mg PO BEDTIME [facility] Last Admin: 05/30/24 20:58 Dose: 100 mg Documented By: BREANNE Valproic Acid (Valproic Acid 250 Mg Capsule) 500 mg PO BID [facility]ERINE Last Admin: 05/31/24 08:24 Dose: 250 mg Documented By: ALISON Labs 05/31/24 09:52 05/31/24 09:52 Labs: Laboratory Results - last 24 hr 05/31/24 05/31/24 05/31/24 09:52 09:52 09:52 MCV Cancelled 91.9 D MCH Cancelled 29.1 MCHC Cancelled RDW Plt Count MPV Absolute Nucleated RBC Nucleated RBC % (auto) Anion Gap Estim Creat Clear Calc Estimated GFR Random Glucose Calcium 05/31/24 05/31/24 05/31/24 09:52 09:52 09:52 MCV MCH MCHC 31.6 RDW Cancelled 19.4 H Plt Count Cancelled TNP MPV Cancelled Absolute Nucleated RBC Nucleated RBC % (auto) Anion Gap Estim Creat Clear Calc Estimated GFR Random Glucose Calcium 05/31/24 05/31/24 05/31/24 09:52 09:52 09:52 MCV MCH MCHC RDW Plt Count MPV TNP Absolute Nucleated RBC Cancelled 0.000 Nucleated RBC % (auto) Cancelled 0.0 Anion Gap 19 Estim Creat Clear Calc 12.6 Estimated GFR 9 Random Glucose 105 Calcium 8.0 L Assessment and Plan (1) Anemia: Status: Inactive Assessment and Plan: d5 for 68yo F LTC resident at [facility] sent in with acute/chronic anemia requiring transfusion acute/chronic anemia of ESRD - Hb 5.4 on presentation, improved to 9.2 after 4u pRBCs transfused, now 7.3; recheck H+H tomorrow - GI consulted: high risk for any procedures, for now continue supportive care with transfusions, Procrit, iron, and omeprazole; avoid NSAIDs + aspirin 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 Magdalena ordered - s/p sharp excisional debridement of R heel ulcer 05/28; may eventually need BKA given exposed calcaneus. Wet-to-dry dressings daily. - s/p sharp excisional debridement of full thickness of skin and part of subcutaneous layer done with scissors; area about 10 x 8 cm debrided; wet to dry dressings daily - clean wound to L foot at amputation site, continue silvaer alginate - wound culture growing multiply resistant Proteus mirabilis as well as VRE; ID consult pending - pain control with PO oxycodone, IV hydromorphone DM2 - basal-bolus insulin ESRD - HD MWF osteomyelitis L foot - continue vancomycin as from previous admission; end date 07/02/24; hold dose for supratherapeutic level; recheck level after next HD today seizure disorder - continue levetiracetam, valproate, phenytoin HTN - continue amlodipine, losartan mood disorder - continue sertraline, lorazepam, trazodone neuropathy - continue gabapentin HLD - continue statin VTE ppx - SCDs dispo - eventual return to LTC In my clinical judgment, the patient requires continued inpatient hospitalization for the following reasons: wound care, anemia Total time managing care of this patient today: 35 minutes. Quality Stroke Does the patient have a stroke diagnosis?: No VTE Prior VTE?: No VTE Risk Level:: Medical - moderate - high VTE Device Contraindication: N/A - Device Ordered VTE Drug Contraindication: Treatment Not Indicated
[2024-05-31 12:00] VITALS: BP 112/45; PULSE 89; RESP 17; TEMP 36.8; O2SAT 98
[2024-05-31] MEDS: Sodium Hypochlorite 0.5% 473 ML SOLUTION 1 APPL TOPICAL (12:09)
[2024-05-31] MEDS: Nystatin Powder 15 GM BOTTLE 1 APPL TOPICAL ×3 (12:09→20:41)
[2024-05-31] MEDS: Alteplase Cath Clear 2 MG/2 ML VIAL 3.6 MG INTRACATH (12:10)
[2024-05-31 12:30] VITALS: BMI 40.3
--- NOTE | 2024-05-31 12:40 | MHC.CLN ---
NUTRITION DIET=2 GRAM SODIUM. INCREASED PROTEIN NEEDS DUE TO MULTIPLE AREAS OF IMPAIRED SKIN INCLUDING DTI PRESSURE INJURY TO LEFT ISCHIUM. PO INTAKE VARIABLE. ESRD ON HD. ADDING ENSURE CLEAR TID (720 KCALS, 24 G PROTEIN). SUPPLEMENT TO PROMOTE WOUND HEALING/SKIN INTEGRITY. FOLLOW FOR PO INTAKE AND WOUND HEALING. SEE CLINICAL NUTRITION ASSESSMENT 05/31/25.
[2024-05-31] MEDS: HYDROmorphone HCl 0.5 MG/0.5 ML SYRINGE IVPUSH ×2 (12:55→18:51)
[2024-05-31 15:37] VITALS: BP 128/61; PULSE 80; RESP 17; TEMP 36.3; O2SAT 95
--- NOTE | 2024-05-31 16:09 | PM.PNNEP ---
Subjective Subjective Date of Service: 05/31/24 Interval history: Ongoing pain at wounds and all over body Physical Exam Vital Signs: Vital Signs: Last Vital Signs Temp 97.4 F 05/31/24 15:37 Pulse 80 05/31/24 15:37 Resp 17 05/31/24 15:37 BP 128/61 05/31/24 15:37 Pulse Ox 95 05/31/24 15:37 O2 Del Method Room Air 05/31/24 15:37 BMI result Body Mass Index 40.3 cvs; s1s2 Rs; cta Abd; soft Objective Data Labs 05/31/24 09:52 05/31/24 18:21 Labs: Laboratory Results - last 24 hr 05/31/24 05/31/24 05/31/24 09:52 09:52 09:52 WBC Cancelled 13.6 H RBC Cancelled 2.58 L Hgb Cancelled Hct MCV MCH MCHC RDW Plt Count MPV Absolute Nucleated RBC Nucleated RBC % (auto) Sodium Potassium Chloride Carbon Dioxide Anion Gap BUN Creatinine Estim Creat Clear Calc Estimated GFR Random Glucose Calcium 05/31/24 05/31/24 05/31/24 09:52 09:52 09:52 WBC RBC Hgb 7.5 L Hct Cancelled 23.7 L MCV Cancelled 91.9 D MCH Cancelled MCHC RDW Plt Count MPV Absolute Nucleated RBC Nucleated RBC % (auto) Sodium Potassium Chloride Carbon Dioxide Anion Gap BUN Creatinine Estim Creat Clear Calc Estimated GFR Random Glucose Calcium 05/31/24 05/31/24 05/31/24 09:52 09:52 09:52 WBC RBC Hgb Hct MCV MCH 29.1 MCHC Cancelled 31.6 RDW Cancelled 19.4 H Plt Count Cancelled MPV Absolute Nucleated RBC Nucleated RBC % (auto) Sodium Potassium Chloride Carbon Dioxide Anion Gap BUN Creatinine Estim Creat Clear Calc Estimated GFR Random Glucose Calcium 05/31/24 05/31/24 05/31/24 09:52 09:52 09:52 WBC RBC Hgb Hct MCV MCH MCHC RDW Plt Count TNP MPV Cancelled TNP Absolute Nucleated RBC Cancelled 0.000 Nucleated RBC % (auto) Cancelled Sodium Potassium Chloride Carbon Dioxide Anion Gap BUN Creatinine Estim Creat Clear Calc Estimated GFR Random Glucose Calcium 05/31/24 09:52 WBC RBC Hgb Hct MCV MCH MCHC RDW Plt Count MPV Absolute Nucleated RBC Nucleated RBC % (auto) 0.0 Sodium 142 Potassium 3.8 Chloride 107 Carbon Dioxide 20 L Anion Gap 19 BUN 48 H Creatinine 4.78 H* Estim Creat Clear Calc 12.6 Estimated GFR 9 Random Glucose 105 Calcium 8.0 L Microbiology Microbiology Results: Microbiology 05/27/24 12:50 Blood - Venous Blood Culture - Preliminary No growth after 48 hours. 05/27/24 12:49 Blood - Venous Blood Culture - Preliminary No growth after 48 hours. Procedures Date of Service Date of Service: 05/31/24 Assessment & Plan Assessment and plan (1) ESRD (end stage renal disease): Status: Acute (2) Calciphylaxis: Status: Acute Plan ESRD on HD - at [facility] left foot cellulitis/ oseomyelitis nephrogenic anemia per GI: high risk for procedure REC HD toda avoid calcium based products sodium thiosultfate 12.5 g post HD ABx per primary team wound care surgery followup renal diet P binders retacrit [id number] units sc t-t-s goal of care discussion Time Spent With Patient Time: Total time managing care of this patient today ____ minutes. Progress Note: Quality Stroke Does the patient have a stroke diagnosis?: No
[2024-05-31] MEDS: levETIRAcetam 500 MG TABLET PO (18:10)
[2024-05-31] MEDS: Gabapentin 300 MG CAPSULE PO (18:14)
[2024-05-31 19:34] VITALS: BP 127/61; PULSE 98; RESP 18; TEMP 36.8; O2SAT 95
[2024-05-31 19:38] LABS: Creatinine Clr Calc Pharmacy 14.6; Estimated Glomerular Filt Rate 11
[2024-05-31 19:41] LABS: Vancomycin Random 31.1 mcg/mL (15-20)
[2024-05-31] MEDS: traZODone HCL 100 MG TABLET PO (20:34)
[2024-05-31 21:48] LABS: Glucose, Whole Blood 163 mg/dL (60-115)
--- NOTE | 2024-05-31 22:10 | W.PM.IDCN ---
History of Present Illness Data of Consult Service Date: 05/30/24 Requesting physician: Moses Reynoso Primary Care Provider: Unknown Physician HPI Reason for consult: multiple wounds She presents with fatigue and found to have anemia. She is also receiving Vancomycin three times a week reportedly due to ESRD dosing. Review of Systems Review of Systems: Yes Unobtainable due to mental condition PMFSH Past Medical History Medical History Pressure ulcer of right hip ESRD (end stage renal disease) Eschar of trunk Thrombocytopenia Fall Anemia of chronic renal failure, stage 4 (severe) Acute subdural hematoma ESRD (end stage renal disease) on dialysis Anemia Eschar of heel Generalized seizure Acute kidney injury CKD (chronic kidney disease) stage 3, GFR 30-59 ml/min CHF (congestive heart failure) Anemia Brain tumor (benign) Lower extremity edema Pneumonia Asthma Pulmonary nodule HLD (hyperlipidemia) Seizure Acute hypoxemic respiratory failure due to COVID-19 COVID-19 Kidney stone Depression Gastritis Diabetes Family History Family History Father CAD (coronary artery disease) Brother Lung cancer Sister Kidney stone Surgical History Surgical History 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) H/O lithotripsy H/O ureteroscopy H/O cystoscopy S/P ureteral stent placement History of cholecystectomy H/O hernia repair Social History Social History Household Members: Other Household Members Other:: from [facility] at this time Housing: House Are you a primary resident care supervisor to a significant other at home: No Unable to assess alcohol history related to: Unknown Alcohol intake: former Comment: pt sleeping at this time Patient Tobacco Use Status: Never used Tobacco e-Cigarette/Vaping Use: Never Used Use of substances other than those prescribed or required for medical reasons: No Currently Displaying Signs/Symptoms of Drug Intoxication Withdrawal: No Have you been hit, kicked, punched, or otherwise hurt by someone within the past year? If so, by whom?: No Do you feel safe in your current relationship?: No Current Relationship Is there a partner from a previous relationship who is making you feel unsafe now?: No Are you made to feel afraid or neglected: No Advance Directives: Yes Advance Directives on File: Yes Advance Directives Date on File: 12/20/21 Do you have a plan to hurt others: No Plan Recently lost weight without trying: No How much weight loss: Unsure Eating poorly because of decreased appetite: No Nutrition screen score: 2 Nutrition Risks: No Nutritional Risk Patient : No : No Poor oral hygiene: No service: No Current occupational status: unemployed Meds Allergies Allergy/AdvReac Type Severity Reaction Status Date / Time Egg Derived Allergy Unknown Verified 05/27/24 12:18 Active Medications: Current Medications Acetaminophen (Acetaminophen 325 Mg Tablet) 650 mg PO Q6H PRN PRN Reason: Pain, Mild 1-3,fever,headache Last Admin: 05/29/24 08:59 Dose: 650 mg Amlodipine Besylate (Amlodipine Besylate 10 Mg Tablet) 10 mg PO DAILY [facility]; Protocol Last Admin: 05/31/24 08:21 Dose: 10 mg Atorvastatin Calcium (Atorvastatin Calcium 80 Mg Tablet) 80 mg PO DAILY [facility] Last Admin: 05/31/24 08:22 Dose: 80 mg Calcium Carbonate (Calcium Carbonate 750 Mg Tab.Chew) 750 mg PO Q4H PRN PRN Reason: Heartburn Epoetin Gabino-epbx (Epoetin Gabino-Epbx 10,000 Unit/Ml Vial) 10,000 unit SUBCUT TuThSa@4272 [facility] Last Admin: 05/30/24 16:02 Dose: 10,000 unit Ferrous Sulfate (Ferrous Sulfate 324 Mg Tablet.) 324 mg PO DAILY [facility] Last Admin: 05/31/24 08:24 Dose: 324 mg Folic Acid (Folic Acid 1 Mg Tablet) 1 mg PO DAILY [facility] Last Admin: 05/31/24 08:24 Dose: 1 mg Furosemide (Furosemide 40 Mg Tablet) 80 mg PO BIDWM [facility]; Protocol Last Admin: 05/31/24 18:10 Dose: 80 mg Gabapentin (Gabapentin 300 Mg Capsule) 300 mg PO MOWEFR@1800 [facility] Last Admin: 05/31/24 18:14 Dose: 300 mg Gabapentin (Gabapentin 100 Mg Capsule) 200 mg PO DAILY [facility] Last Admin: 05/31/24 08:22 Dose: 200 mg Hydromorphone HCl (Hydromorphone Hcl 0.5 Mg/0.5 Ml Syringe) 0.5 mg IVPUSH Q4H PRN; Protocol PRN Reason: Pain, Severe (Pain Scale 7-10) Last Admin: 05/31/24 18:51 Dose: 0.5 mg Vancomycin HCl 500 mg/ Sodium (Chloride) 110 mls @ 110 mls/hr IV ONCE ONE Stop: 05/27/24 16:59 Insulin Glargine (Insulin Glargine,Hum.Rec.Anlog 100 Unit/Ml 10 Ml Vial) 10 unit SUBCUT BEDTIME [facility] Last Admin: 05/30/24 20:53 Dose: 10 unit Levetiracetam (Levetiracetam 500 Mg Tablet) 500 mg PO MOWEFR@1800 [facility] Last Admin: 05/31/24 18:10 Dose: 500 mg Lorazepam (Lorazepam 0.5 Mg Tablet) 0.5 mg PO DAILY PRN PRN Reason: anxiety Losartan Potassium (Losartan Potassium 50 Mg Tablet) 100 mg PO BID [facility]; Protocol Last Admin: 05/31/24 20:34 Dose: 100 mg Magnesium Hydroxide (Milk Of Magnesia 30 Ml Oral.Susp) 30 ml PO DAILY PRN PRN Reason: Constipation Melatonin (Melatonin 3 Mg Tablet) 6 mg PO BEDTIME PRN PRN Reason: Insomnia Last Admin: 05/29/24 00:52 Dose: 6 mg Nystatin (Nystatin Powder 15 Gm Bottle) 1 appl TOPICAL TID [facility]; Protocol Last Admin: 05/31/24 20:41 Dose: 1 appl Omeprazole (Omeprazole 40 Mg Capsule.Dr) 40 mg PO DAILY@0630 [facility] Last Admin: 05/31/24 05:50 Dose: 40 mg Ondansetron HCl (Ondansetron Hcl 4 Mg/2 Ml Vial) 4 mg IVPUSH Q8H PRN PRN Reason: Nausea and Vomiting Last Admin: 05/28/24 09:26 Dose: 4 mg Oxycodone HCl (Oxycodone Hcl Immed Release 5 Mg Tablet) 5 mg PO Q4H PRN PRN Reason: Pain, Severe (Pain Scale 7-10) Last Admin: 05/31/24 20:35 Dose: 5 mg Pharmacy Consult (Consult Rx Vancomycin Dosing) 1 each MISCELLANE DAILY PRN PRN Reason: Consult order Phenytoin Sodium (Phenytoin Sodium Extended 100 Mg Capsule) 100 mg PO TID [facility] Last Admin: 05/31/24 20:34 Dose: 100 mg Sertraline HCl (Sertraline Hcl 50 Mg Tablet) 50 mg PO DAILY [facility] Last Admin: 05/31/24 08:22 Dose: 50 mg Sodium Chloride (0.9 % Sodium Chloride Flush 3 Ml Syringe) 3 ml IVFLUSH QSHIFT [facility] Last Admin: 05/31/24 20:35 Dose: 3 ml Sodium Hypochlorite (Sodium Hypochlorite 0.5% 473 Ml Solution) 1 appl TOPICAL DAILY [facility] Last Admin: 05/31/24 12:09 Dose: 1 appl Tramadol HCl (Tramadol Hcl 50 Mg Tablet) 25 mg PO Q6H PRN PRN Reason: Pain, Severe (Pain Scale 7-10) Last Admin: 05/29/24 17:28 Dose: 25 mg Trazodone HCl (Trazodone Hcl 100 Mg Tablet) 100 mg PO BEDTIME [facility] Last Admin: 05/31/24 20:34 Dose: 100 mg Valproic Acid (Valproic Acid 250 Mg Capsule) 500 mg PO BID [facility] Last Admin: 05/31/24 20:34 Dose: 500 mg Home Medications ?Medication ?Instructions ?Recorded ?Confirmed ?Last Taken ?Type blood sugar diagnostic (FreeStyle 03/28/20 09/09/22 Unknown History Lite Strips) blood-glucose meter (FreeStyle 03/28/20 09/09/22 Unknown History [place] Lite kit) lancets 28 gauge (FreeStyle 03/28/20 09/09/22 Unknown History Lancets) omeprazole 40 mg capsule,delayed 40 mg PO BID@0630,1630 10/02/21 05/27/24 03/21/24 History release blood pressure test kit-large #1 ea 10/12/21 09/09/22 Unknown History atorvastatin 80 mg tablet 80 mg PO DAILY 12/20/21 05/27/24 03/21/24 History nebulizers 01/20/22 09/09/22 Unknown History amlodipine 10 mg tablet 10 mg PO DAILY 05/29/22 05/27/24 03/21/24 History lancets 33 gauge (TRUEplus Lancets) #100 ea 06/07/22 09/09/22 Unknown History ferrous gluconate 324 mg (38 mg 324 mg PO DAILY 11/24/22 05/27/24 03/21/24 History iron) tablet acetaminophen 650 mg 650 mg PO Q8H PRN mild pain 03/22/24 05/27/24 Unknown History tablet,extended release diclofenac sodium 1 % topical gel 2 g topical BEDTIME PRN Pain 03/22/24 05/27/24 03/21/24 History losartan 100 mg tablet 100 mg PO BID 03/22/24 05/27/24 03/21/24 History valproic acid 250 mg capsule 500 mg PO BID 03/22/24 05/27/24 03/21/24 History furosemide 40 mg tablet 80 mg PO BID 05/04/24 05/27/24 Unknown History gabapentin 100 mg capsule 200 mg PO DAILY 05/04/24 05/27/24 Unknown History gabapentin 300 mg capsule 300 mg PO MOWEFR@1800 05/04/24 05/27/24 Unknown History levetiracetam 500 mg tablet 500 mg PO MOWEFR@1800 05/04/24 05/27/24 Unknown History lorazepam 0.5 mg tablet 0.5 mg PO DAILY PRN anxiety 05/04/24 05/27/24 Unknown History sertraline 50 mg tablet 50 mg PO DAILY 05/04/24 05/27/24 Unknown History cholecalciferol (vitamin D3) 25 50 mcg PO DAILY 05/27/24 05/27/24 Unknown History mcg (1,000 unit) tablet (Vitamin D3) dextrose 40 % oral gel (Glucose 10 g PO Q15M PRN low blood sugar 05/27/24 05/27/24 Unknown History Gel) epoetin gabino-epbx 10,000 unit/mL 10,000 unit subcut MOWEFR@164405/27/24 05/27/24 05/20/24 History injection solution (Retacrit) glucagon 1 mg solution for 1 mg subcut Q20M PRN low blood 05/27/24 05/27/24 Unknown History injection (Glucagon Emergency Kit) sugar trazodone 50 mg tablet 100 mg PO BEDTIME 05/27/24 05/27/24 Unknown History vancomycin 500 mg intravenous 500 mg PO MOWEFR@5 05/27/24 05/27/24 Unknown History solution Physical Exam Vital Signs: Vital Signs: Last Vital Signs Temp 98.3 F 05/31/24 19:34 Pulse 98 05/31/24 19:34 Resp 18 05/31/24 19:34 BP 127/61 05/31/24 19:34 Pulse Ox 95 05/31/24 19:34 O2 Del Method Room Air 05/31/24 19:34 BMI result Body Mass Index 40.3 Const: General: cooperative HEENT: Head: Yes normal to inspection Face and sinus: Yes normal facial exam Mouth: Normal oral and palatal mucosa present Teeth and gingiva: dentition normal Eyes: General: appearance normal, both eyes and all related structures Pupils: Equal, round and reactive pupils present Resp: Effort & Inspection: normal respiratory effort Cardio: Rate: regular rate Rhythm: regular rhythm GI: Palpation (GI): Soft to palpation and nontender : General: Yes no CVA tenderness Back/Spine/Pelvis: Back: no CVA tenderness Skin: General skin exam: no rashes or lesions noted Neuro: General: moves all extremities Cranial nerves: Yes Equal, round and reactive pupils present Extrem: Other: multiple open areas wounds on hip and feet Psych: Appearance: grossly normal Results Labs 05/31/24 09:52 05/31/24 18:21 Labs: Short CBC 05/31/24 05/31/24 05/31/24 Range/Units 09:52 09:52 09:52 WBC Cancelled 13.6 H Hgb Cancelled 7.5 L Hct Cancelled Plt Count 05/31/24 05/31/24 Range/Units 09:52 09:52 WBC Hgb Hct 23.7 L Plt Count Cancelled TNP BMP 05/31/24 05/31/24 09:52 18:21 Sodium 142 Potassium 3.8 Chloride 107 Carbon Dioxide 20 L BUN 48 H Creatinine 4.78 H* 4.12 H* Calcium 8.0 L Microbiology Microbiology Results: Microbiology 05/27/24 12:50 Blood - Venous Blood Culture - Preliminary No growth after 48 hours. 05/27/24 12:49 Blood - Venous Blood Culture - Preliminary No growth after 48 hours. Assessment and Plan (1) Pressure ulcer of right hip: Status: Acute (2) ESRD (end stage renal disease): Status: Acute (3) Calciphylaxis: Status: Acute Plan Ulcers looks about the same and no fever or elevated WBC or bacteremia. Dont think Vancomycin cause of anemia finish six weeks IV Vancomycin unless cultures indicate otherwise.
[2024-05-31] MEDS: Insulin Glargine,Hum.rec.anlog 100 UNIT/ML 10 ML VIAL 10 UNIT SUBCUT (22:41)
[2024-06-01] VITALS: BP 116/61; PULSE 94; RESP 16; TEMP 36.4; O2SAT 97
[2024-06-01 04:00] VITALS: BP 118/60; PULSE 86; RESP 18; TEMP 36.1; O2SAT 96
[2024-06-01] MEDS: Omeprazole 40 MG CAPSULE.DR PO (06:14)
[2024-06-01] MEDS: HYDROmorphone HCl 0.5 MG/0.5 ML SYRINGE IVPUSH (06:15)
[2024-06-01 06:58] LABS: Glucose, Whole Blood 120 mg/dL (60-115)
[2024-06-01 07:16] LABS: Hematocrit 25.5 % (37.0-47.0); Hemoglobin 8.4 g/dl (12.0-16.0)
[2024-06-01 07:18] VITALS: BP 109/54; PULSE 92; RESP 20; TEMP 37.2; O2SAT 95
[2024-06-01] MEDS: Sertraline HCL 50 MG TABLET PO (08:54)
[2024-06-01] MEDS: Furosemide 40 MG TABLET 80 MG PO (08:54)
[2024-06-01] MEDS: Folic Acid 1 MG TABLET PO (08:54)
[2024-06-01] MEDS: Gabapentin 100 MG CAPSULE 200 MG PO (08:54)
[2024-06-01] MEDS: Atorvastatin Calcium 80 MG TABLET PO (08:54)
[2024-06-01] MEDS: Nystatin Powder 15 GM BOTTLE 1 APPL TOPICAL ×2 (09:00→14:30)
[2024-06-01] MEDS: Valproic Acid 250 MG CAPSULE 500 MG PO (09:02)
[2024-06-01] MEDS: Acetaminophen 325 MG TABLET 650 MG PO ×2 (09:02→14:27)
[2024-06-01] MEDS: Ferrous Sulfate 324 MG TABLET.DR PO (09:02)
[2024-06-01] MEDS: Phenytoin Sodium Extended 100 MG CAPSULE PO ×2 (09:02→14:26)
[2024-06-01] MEDS: 0.9 % Sodium Chloride Flush 3 ML SYRINGE IVFLUSH ×2 (09:03→14:28)
[2024-06-01] MEDS: oxyCODONE HCl Immed Release 5 MG TABLET PO (09:03)
[2024-06-01 10:53] LABS: Glucose, Whole Blood 111 mg/dL (60-115)
[2024-06-01 11:16] VITALS: BP 123/61; PULSE 93; RESP 20; TEMP 36.6; O2SAT 94
--- NOTE | 2024-06-01 11:33 | P.DS_ITS ---
DS: Providers Provider Date of Service: 06/01/24 Date of admission: 05/27/24 15:09 Date of discharge: 06/01/24 Primary care physician: Unknown Physician Consults: 05/27/24 15:09 Consult to General Surgery Routine Consulting Provider: [facility] Sur[facility] Reason for consultation: possible debridement, multiple wounds 05/27/24 15:55 Consult to Gastroenterology Routine Consulting Provider: James Palomo Reason for consultation: SEVERE ANEMIA 05/27/24 17:10 Consult to Nephrology Routine Consulting Provider: [facility] Reason for consultation: ESRD on dialysis 05/28/24 09:40 Consult to Wound Care Routine Reason for consultation: pressure injury 05/28/24 11:41 Consult to Wound Care Routine Reason for consultation: healt wound, left foot amp site 05/29/24 18:35 Consult to Infectious Diseases Routine Consulting Provider: [facility] Reason for consultation: wound culture from L leg with VRE + Proteus; on vanco for osteo DS: Diagnosis Discharge Diagnosis (1) ESRD (end stage renal disease): Status: Acute (2) Calciphylaxis: Status: Acute (3) Osteomyelitis: Status: Acute (4) Pressure ulcer of right hip: Status: Acute (5) Eschar of heel: Status: Acute (6) Eschar of trunk: Status: Acute (7) Anemia: Status: Acute DS: Summary Hospital Course Hospital Course: From the history and physical by the admitting hospitalist, Erin Al NP, 05/27/24: 68-year-old woman presenting from [facility] due to low hemoglobin and hematocrit, lab work done in the morning. Apparently there has been no obvious blood loss but patient does have a history of end-stage renal disease on dialysis. 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 Patient has been on vancomycin on dialysis days and plan was for 6 weeks total. Hemoglobin 5.4, hematocrit 16.5, chronically elevated white blood cell count, stable vital signs. In the ER, patient received a dose of vancomycin, Zosyn, Atarax, oxycodone, more and IV fluids. 68yo F undergoing short-term rehabilitation at [facility] sent in with acute/chronic anemia requiring transfusion. Hospital course by problem: acute/chronic anemia of ESRD - Hb 5.4 on presentation, improved to 9.2 after 4u pRBCs transfused, now 8.4 - GI consulted: too high risk for any procedures; recommended to continue supportive care with transfusions, Procrit, iron, and omeprazole; avoid NSAIDs + aspirin calciphylaxis - Wound Care and Gen Surgery consulted. - s/p sharp excisional debridement of R heel ulcer 05/28; unfortunately, may eventually need BKA given exposed calcaneus - s/p sharp excisional debridement of full thickness of skin and part of subcutaneous layer done with scissors; area about 10 x 8 cm debrided - clean wound to L foot at amputation site - wound culture growing multiply resistant Proteus mirabilis as well as VRE but per ID these are colonizers not infecters - pain control with PO oxycodone - wound care recommendations: Skin Folds - Cleanse with PH balance wipes, pat dry with soft cloth.? Apply antifungal power to assist with moisture management.? Be sure to dust of excess powder to prevent caking on skin and in folds. Apply per provider orders. Tuck Interdry AG Sheet into skin fold to wick and translocate moisture away from skin fold.? Be sure to leave at least 2 inch of fabric exposed outside of skin fold.? Change after 5 days or when soiled. Left Foot - Elevate heels off of bed surface with pillows. Cleanse and irrigate with NS, Pat dry.? Apply barrier to periwound, lightly pack with Durafiber AG, be sure to leave a wick to easy removal.? Cover with gauze and wrap dressing.? Change every other day. Perineal, buttock and Left Ischium - Off Load Pressure with Q2 hr turns and use of pillows - Cleanse with PH balance spray or wipes, pat dry. ?Apply thin layer of Triad to wound bed - only pat and dab no scrub and rub when soiling occurs. Reapply thin layer PRN after each episode of incontinence. Right Heel, Bilateral Thighs and left Calf - Off Load Pressure with Q2 hr turns and use of pillows - Cleanse with NS moist gauze, pat dry. ?Apply thin layer of Triad to periwound. Apply Dakins moist gauze to entire wound bed, cover with dry gauze, ABD pad and gauze wrap or tape change Daily. - to follow up with Dr Vines from [facility] Surgery in 1 week ESRD - continued HD MWF osteomyelitis L foot - continue vancomycin as from previous admission; end date 07/02/24; hold 06/03 dose for supratherapeutic level of 31.1 on 05/31/24; recheck level after next HD 06/03 and resume once <20 She was discharged back to [facility] to resume short-term rehabilitation. Time Attestation Discharge Coordination Time (in mins): 45 Quality: Safe Use of Opioids Does Pt have an Active Cancer Diagnosis on the Problem List?: No Quality: Stroke Does the patient have a stroke diagnosis?: No Physical Exam Vital Signs: Vital Signs: Last Vital Signs Temp 97.9 F 06/01/24 11:16 Pulse 93 06/01/24 11:16 Resp 20 06/01/24 11:16 BP 123/61 06/01/24 11:16 Pulse Ox 94 06/01/24 11:16 O2 Del Method Room Air 06/01/24 11:16 BMI result Body Mass Index 40.3 Gen: in no acute distress HEENT: sclera anicteric, moist mucus membranes Neck: supple Lungs: clear to auscultation bilaterally, RIJ HD catheter Heart: regular rate and rhythm, no murmurs Abd: soft, non-tender, non-distended, obese Ext: no edema Skin: warm/well-perfused, multiple pressure ulcers with eschar on R hip, L calf, L 5th toe amputation site, R heel with exposed bone Neuro: alert and oriented x3, no focal findings Psych: appropriate affect DS: Data Data Completed and Pending Completed studies during hospitalization [Text1]: Laboratory Results WBC 13.6 X10*3/uL (4.8-10.8) H 05/31/24 09:52 WBC Cancelled 05/31/24 09:52 RBC 2.58 X10*6/uL (4.20-5.50) L 05/31/24 09:52 RBC Cancelled 05/31/24 09:52 Hgb 8.4 g/dl (12.0-16.0) L 06/01/24 06:52 Hct 25.5 % (37.0-47.0) L 06/01/24 06:52 MCV 91.9 fL (80.0-98.0) D 05/31/24 09:52 MCV Cancelled 05/31/24 09:52 MCH 29.1 pg (27.0-33.0) 05/31/24 09:52 MCH Cancelled 05/31/24 09:52 MCHC 31.6 g/dl (31.0-35.0) 05/31/24 09:52 MCHC Cancelled 05/31/24 09:52 RDW 19.4 % (11.0-16.0) H 05/31/24 09:52 RDW Cancelled 05/31/24 09:52 Plt Count Cancelled 05/31/24 09:52 Plt Count TNP 05/31/24 09:52 MPV Cancelled 05/31/24 09:52 MPV TNP 05/31/24 09:52 Immature Gran % (Auto) 4.5 % (0.0-0.4) H 05/28/24 07:36 Neut % (Auto) 74.9 % (45-73) H 05/28/24 07:36 Lymph % (Auto) 8.9 % (20-40) L 05/28/24 07:36 [place] % (Auto) 8.9 % (2-11) 05/28/24 07:36 Eos % (Auto) 1.9 % (0-4) 05/28/24 07:36 Baso % (Auto) 0.9 % (0-2) 05/28/24 07:36 Lymph # (Auto) 1.2 X10*3/uL (1.2-4.9) 05/28/24 07:36 [place] # (Auto) 1.1 X10*3/uL (0.1-1.2) 05/28/24 07:36 Eos # (Auto) 0.3 X10*3/uL (0.0-0.4) 05/28/24 07:36 Baso # (Auto) 0.1 X10*3/uL (0.0-0.2) 05/28/24 07:36 Abs Immat Gran (auto) 0.58 X10*3/uL (0.00-0.03) H 05/28/24 07:36 Absolute Neuts (auto) 9.6 x10*3/uL (2.0-8.3) H 05/28/24 07:36 Absolute Nucleated RBC 0.000 X10*3/uL (0.0-0.012) 05/31/24 09:52 Absolute Nucleated RBC Cancelled 05/31/24 09:52 Nucleated RBC % (auto) 0.0 /100WBC (0.0-0.2) 05/31/24 09:52 Nucleated RBC % (auto) Cancelled 05/31/24 09:52 Smear Tech's Comments VERIFIED 05/27/24 12:42 Sodium 142 mmol/L (135-145) 05/31/24 09:52 Potassium 3.8 mmol/L (3.3-5.1) 05/31/24 09:52 Chloride 107 mmol/L (96-108) 05/31/24 09:52 Carbon Dioxide 20 mmol/L (22-29) L 05/31/24 09:52 Anion Gap 19 (12-20) 05/31/24 09:52 BUN 48 mg/dL (9-16) H 05/31/24 09:52 Creatinine 4.12 mg/dL (0.5-1.4) H* 05/31/24 18:21 Estim Creat Clear Calc 14.6 05/31/24 18:21 Estimated GFR 11 05/31/24 18:21 POC Glucose 111 mg/dL (60-115) 06/01/24 10:49 Random Glucose 105 mg/dL (60-115) 05/31/24 09:52 Lactic Acid 1.0 mmol/L (0.5-2.0) 05/27/24 12:42 Calcium 8.0 mg/dL (8.4-10.2) L 05/31/24 09:52 Iron 60 mcg/dL (30-160) 05/28/24 07:36 TIBC 100 mcg/dL (228-428) L 05/28/24 07:36 % Saturation 60 % (15-50) H 05/28/24 07:36 Unsat Iron Binding 40 ug/dL 05/28/24 07:36 Vitamin B12 1465 pg/mL (200-900) H 05/29/24 09:00 Folate 11.5 ng/mL (> or = 4.0) 05/29/24 09:00 Random Vancomycin 31.1 mcg/mL (15-20) H* 05/31/24 18:21 Blood Type O Positive 06/01/24 06:52 Antibody Screen NEGATIVE 06/01/24 06:52 Crossmatch See Detail 05/27/24 12:56 Impressions Foot X-Ray 05/27/24 12:27 IMPRESSION: Limited examination as described. Soft tissue ulceration of the calcaneus. No plain film evidence of osteomyelitis. If this is a clinical concern, three-phase bone scan or MRI could be performed. Electronically signed by: James Ruiz MD 05/27/2024 01:50 PM EDT RP Hip CT 05/27/24 13:27 IMPRESSION: 1. No acute bony findings. No CT evidence of osteomyelitis or septic arthropathy. 2. Incidentally noted is diffuse wall thickening of the rectosigmoid, suggesting colitis. This is new from the prior CT. Correlate for signs and symptoms. 3. Extensive diffuse vascular atherosclerosis. 4. Subcutaneous stranding and skin thickening of the right lateral buttock and hip region, extending along the posterior upper leg. No discrete fluid collection or abscess. Findings suggest cellulitis. Electronically signed by: Rupesh Araya MD 05/27/2024 02:01 PM EDT RP Discharge Plan Discharge Anticipated Discharge Date/Time: 06/01/24 11:01 Patient Disposition: er [facility] Discharge Diagnosis: acute/chronic anemia of ESRD calciphylaxis osteomyelitis L foot Referrals: Lucrecia Teixeira MD [Physician] - 2 Weeks Corinne Donato MD [Physician] - 2 Weeks Jeffry Vines MD [Physician] - 1 Week Discharge Medications: New oxycodone 5 mg Tablet See Rx Instructions .ROUTE .COMPLEX PRN (Reason: Pain, Severe (Pain Scale 7- 10)) Qty: 30 0RF Rx Instructions: 5-10 mg PO q4 hr prn mod-sev pain Dakin's Solution 0.5 % Solution 1 appl topical DAILY Qty: 1000 0RF Continued (DME) FreeStyle Lite Strips Strip MISCELLANEOUS QID (DME) blood-glucose meter [FreeStyle [place] Lite] Kit MISCELLANEOUS BID (DME) lancets [FreeStyle Lancets] 28 gauge misc 1 gauge topical BID omeprazole 40 mg capsule,delayed release(DR/EC) 40 mg PO BID@0630,1630 atorvastatin 80 mg tablet 80 mg PO DAILY amlodipine 10 mg tablet 10 mg PO DAILY phenytoin sodium extended [Dilantin Extended] 100 mg Capsule 100 mg PO TID Qty: 90 2RF trazodone 50 mg tablet 100 mg PO BEDTIME dextrose [Glucose Gel] 40 % Gel 10 g PO Q15M PRN (Reason: low blood sugar) Rx Instructions: until symptoms of low blood sugar are controlled Glucagon Emergency Kit (human) 1 mg Recon Soln 1 mg SUBCUT Q20M PRN (Reason: low blood sugar) Rx Instructions: until target blood sugar attained cholecalciferol (vitamin D3) [Vitamin D3] 25 mcg (1,000 unit) Tablet 50 mcg PO DAILY Retacrit 10,000 unit/mL Solution 10,000 unit SUBCUT MOWEFR@1645 ferrous gluconate 324 mg (38 mg iron) tablet 324 mg PO DAILY valproic acid 250 mg capsule 500 mg PO BID acetaminophen 650 mg tablet extended release 650 mg PO Q8H PRN (Reason: mild pain) losartan 100 mg tablet 100 mg PO BID diclofenac sodium 1 % gel 2 g topical BEDTIME PRN (Reason: Pain) Rx Instructions: APPLY 2 GRAMS TOPICALLY TO FEET AT BEDTIME NEEDED folic acid 1 mg Tablet 1 mg PO DAILY Qty: 90 0RF furosemide 40 mg tablet 80 mg PO BID lorazepam 0.5 mg tablet 0.5 mg PO DAILY PRN (Reason: anxiety) gabapentin 300 mg capsule 300 mg PO MOWEFR@1800 Rx Instructions: after dialysis sertraline 50 mg tablet 50 mg PO DAILY gabapentin 100 mg capsule 200 mg PO DAILY levetiracetam 500 mg tablet 500 mg PO MOWEFR@1800 Rx Instructions: give after dialysis insulin glargine [Lantus U-100 Insulin] 100 unit/mL Solution 10 unit subcut BEDTIME Qty: 10 0RF (DME) blood pressure test kit-large Kit See Rx Instructions .ROUTE DAILY Qty: 1 Rx Instructions: As directed (DME) nebulizers Misc See Rx Instructions .Route Rx Instructions: As directed (DME) lancets [TRUEplus Lancets] 33 gauge misc See Rx Instructions .ROUTE BID Qty: 100 Rx Instructions: As directed Held vancomycin 500 mg Recon Soln 500 mg PO MOWEFR@1645 Hold Instructions: Resume on 06/03/24. Hold pending vancomycin level on 06/03/24 Rx Instructions: after dialysis based on level Discontinued oxycodone 5 mg Tablet 5 mg PO Q4H PRN (Reason: Pain, Severe (Pain Scale 7-10)) Qty: 30 0RF Rx Instructions: Partial Fill upon patient request. Discharge Orders: Discharge Order (Routine); Ordered 06/01/24 Ordered By: Moses Reynoso Diet: Diabetic diet Activity on Discharge: As tolerated Stand Alone Forms: Patient Portal Discharge page Print Language: Kyrgyz Other Ambulatory Orders: Hemoglobin and Hematocrit (Routine) Timeframe: 1 Week Facility: [facility] - Location: Laboratory Ordered By: Moses Reynoso Vancomycin Random (Routine) Timeframe: [id number] Facility: [facility] - Location: Laboratory Ordered By: Moses Reynoso Care Plan Goals: treatment of anemia cure of wounds cure of bone infection Health Concerns: acute/chronic anemia of ESRD calciphylaxis osteomyelitis L foot Plan of Treatment: acute/chronic anemia of ESRD - avoid NSAIDs and aspirin - continue omeprazole - continue Retacrit at dialysis - check H+H in 1 week calciphylaxis - wound care: Skin Folds - Cleanse with PH balance wipes, pat dry with soft cloth.? Apply antifungal power to assist with moisture management.? Be sure to dust of excess powder to prevent caking on skin and in folds. Apply per provider orders. Tuck Interdry AG Sheet into skin fold to wick and translocate moisture away from skin fold.? Be sure to leave at least 2 inch of fabric exposed outside of skin fold.? Change after 5 days or when soiled. Left Foot - Elevate heels off of bed surface with pillows. Cleanse and irrigate with NS, Pat dry.? Apply barrier to periwound, lightly pack with Durafiber AG, be sure to leave a wick to easy removal.? Cover with gauze and wrap dressing.? Change every other day. Perineal, buttock and Left Ischium - Off Load Pressure with Q2 hr turns and use of pillows - Cleanse with PH balance spray or wipes, pat dry. ?Apply thin layer of Triad to wound bed - only pat and dab no scrub and rub when soiling occurs. Reapply thin layer PRN after each episode of incontinence. Right Heel, Bilateral Thighs and left Calf - Off Load Pressure with Q2 hr turns and use of pillows - Cleanse with NS moist gauze, pat dry. ?Apply thin layer of Triad to periwound. Apply Dakins moist gauze to entire wound bed, cover with dry gauze, ABD pad and gauze wrap or tape change Daily. - follow up with Dr Vines from [facility] General Surgery in 1 week - pain control with oxycodone osteomyelitis L foot - continue vancomycin as from previous admission; end date 07/02/24; hold 06/03 dose for supratherapeutic level of 31.1 on 05/31; recheck level after next on 06/03 Please follow up with your primary care doctor within 1 week of discharge from rehabilitation. Return to the hospital if you experience recurrent or worsening symptoms. Assessment: See Discharge Summary. Discharge Date/Time: 06/01/24 15:30
--- NOTE | 2024-06-01 12:47 | MHC.CM.PN ---
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
[2024-06-01] MEDS: oxyCODONE HCl Immed Release 5 MG TABLET 10 MG PO (14:27)
[2024-06-01] MEDS: Sodium Hypochlorite 0.5% 473 ML SOLUTION 1 APPL TOPICAL (14:28)
== END 2024-06-01 15:30 | disposition skilled nursing facility (03) | DRG 570 ==
LOC: HO.ED 15:10 → HO.EDOVER 15:20 → HO.IMC 18:33
PROVIDERS: Internal Medicine; Admitting Provider Nurse Practitioner Acute Care; Emergency Provider Emergency Medicine; Visit Provider Family Medicine
DX: L94.2 Calcinosis cutis (principal); N18.6 End stage renal disease; I12.0 Hypertensive chronic kidney disease with stage 5 chronic kidney disease or end stage renal disease; M86.9 Osteomyelitis, unspecified; Z68.41 Body mass index [BMI] 40.0-44.9, adult; L89.219 Pressure ulcer of right hip, unspecified stage; E11.22 Type 2 diabetes mellitus with diabetic chronic kidney disease; G40.909 Epilepsy, unspecified, not intractable, without status epilepticus; E78.5 Hyperlipidemia, unspecified; E66.01 Morbid (severe) obesity due to excess calories; Z71.3 Dietary counseling and surveillance; E11.40 Type 2 diabetes mellitus with diabetic neuropathy, unspecified; E11.69 Type 2 diabetes mellitus with other specified complication; Z79.4 Long term (current) use of insulin; Z79.899 Other long term (current) drug therapy
CPT/HCPCS: 36415; 73620; 73700; 80048; 80202; 82565; 82607; 82746; 82947; 83540; 83605; 85014; 85018; 85025; 85027; 86850; 86900; 86901; 86923; 87040; 90999; 99285; J1171; J2270; J2405; J2543; J2997; J3370; P9016; Q5106

== ENCOUNTER → 2024-05-27 12:27 | Outpatient (BNV) | payer MEDICARE, MEDICAID, SELFPAY | PROVIDERS: Emergency Provider Emergency Medicine; Visit Provider Radiology Diagnostic Radiology | DX: I70.90 Unspecified atherosclerosis (principal); L97.419 Non-pressure chronic ulcer of right heel and midfoot with unspecified severity | CPT/HCPCS: 73620; 73700 ==

== ENCOUNTER → 2024-05-27 15:09 | Outpatient (BNV) | payer MEDICARE, MEDICAID, SELFPAY | PROVIDERS: Admitting Provider Nurse Practitioner Acute Care; Emergency Provider Emergency Medicine; Visit Provider Nurse Practitioner Acute Care | DX: N18.6 End stage renal disease (principal); E83.59 Other disorders of calcium metabolism; M86.172 Other acute osteomyelitis, left ankle and foot; L89.219 Pressure ulcer of right hip, unspecified stage; R23.4 Changes in skin texture; D64.9 Anemia, unspecified | CPT/HCPCS: 99222; 99232; 99239 ==

== ENCOUNTER → 2024-05-27 15:09 | Outpatient (BNV) | payer MEDICARE, MEDICAID, SELFPAY | PROVIDERS: Admitting Provider Nurse Practitioner Acute Care; Emergency Provider Emergency Medicine; Visit Provider Surgery | DX: L89.610 Pressure ulcer of right heel, unstageable (principal); R23.4 Changes in skin texture | CPT/HCPCS: 11042; 99222; 99232 ==

== ENCOUNTER → 2024-05-27 15:09 | Outpatient (BNV) | payer MEDICARE, MEDICAID, SELFPAY | PROVIDERS: Admitting Provider Nurse Practitioner Acute Care; Emergency Provider Emergency Medicine; Visit Provider Internal Medicine | DX: L89.219 Pressure ulcer of right hip, unspecified stage (principal); N18.6 End stage renal disease; E83.59 Other disorders of calcium metabolism | CPT/HCPCS: 99222 ==

== ENCOUNTER 2024-06-02 15:37 | Inpatient (IN) | payer MEDICARE, MEDICAID, SELFPAY ==
[2024-06-02] VITALS (11 sets, daily range): BP systolic 110–197; BP diastolic 48–79; PULSE 92–115; RESP 16–28; TEMP 36.4–39.7; O2SAT 93–100; BMI 36.7; BMI 37.5
--- NOTE | ~2024-06-02 | CT_ITS ---
CLINICAL HISTORY: large ventral hernia - pain CT abdomen and pelvis without contrast Comparison: None Findings: Examination limited without intravenous contrast and by artifact. Heart is enlarged. No consolidation or pleural effusion. The gallbladder is not visualized. No significant biliary ductal dilatation. The liver is enlarged. No definite focal hepatic or splenic abnormality. Unenhanced pancreas somewhat atrophic. Adrenal glands within normal limits. Bilateral renal cortical thinning suggestive of atrophy. Bilateral renal vascular calcifications. No ureteral stones and no hydronephrosis or hydroureter. Stable nonspecific bilateral perinephric stranding. Mid abdominal moderate size ventral hernia containing part of the transverse colon similar to previous examination. No bowel obstruction, pneumoperitoneum, or pneumatosis. No free fluid, loculated fluid collection or adenopathy. Pelvic contents unremarkable. Normal appendix. Extensive atherosclerotic vascular disease similar to previous examination. No aneurysm of the abdominal aorta. No acute osseous process. IMPRESSION: 1. No acute findings. 2. Stable moderate ventral hernia containing part of the transverse colon with no bowel obstruction. 3. Additional stable nonacute findings as described. This document has been electronically signed by: Abril Chan MD on 06/02/2024 18:06:24
--- NOTE | ~2024-06-02 | CT_ITS ---
EXAMINATION: CT HEAD WITHOUT CONTRAST CLINICAL INFORMATION: [facility] COMPARISON: May 08, 2024. TECHNIQUE: Contiguous axial imaging was performed from the skull base to vertex without intravenous administration of contrast. This CT examination was performed using dose optimization techniques as appropriate, variously including the following: *Automated exposure control *Adjustment of mA and/or kV according to patient size (this includes techniques or standardized protocols for targeted exams where dose is matched to indication/reason for exam; i.e. extremities or head) *Use of iterative reconstruction technique DLP: 930 mGy-cm FINDINGS: No acute intracranial hemorrhage, mass effect, midline shift, hydrocephalus or herniation. Encephalomalacia, left frontal lobe. Bilateral multifocal patchy and confluent deep periventricular white matter hypodensity. Parks-white matter differentiation is normal. Calcified plaques in the V4 segments of the vertebral arteries and cavernous supracavernous segments both ICA. Craniocervical junction is intact. Sellar/suprasellar region demonstrated no gross masses. No acute fracture, bony calvarium. Prior craniotomy, left frontal. Tympanic cavities are aerated. Air-fluid levels in the right mastoid tip. CT/CT head/brain wo IV con IMPRESSION: Resolved hematoma/hemorrhage, superior right parafalcine. Small vessel occlusive disease. Left frontal encephalomalacia. No acute brain abnormality by CT. Minimal effusion , right mastoid tip. Electronically signed by: Pete Wright MD 06/04/2024 11:44 AM EDT
--- NOTE | ~2024-06-02 | XR_ITS ---
CLINICAL HISTORY: fever 1 view chest x-ray Comparison: CR/SR - XR CHEST 1V - 05/23/24 12:42 EDT Findings: Right internal jugular hemodialysis catheter stable in position. The heart is enlarged. Pulmonary vasculature within normal limits. Low lung volumes. No consolidation, significant pleural effusion or pneumothorax. Osseous structures appear stable. IMPRESSION: 1. No acute findings. 2. Nonacute findings as described. This document has been electronically signed by: Abril Chan MD on 06/02/2024 17:49:44
--- NOTE | 2024-06-02 16:08 | ECG_ITS ---
Test Reason : SEPSIS Blood Pressure : */* mmHG Vent. Rate : 106 BPM Atrial Rate : 106 BPM P-R Int : 140 ms QRS Dur : 84 ms QT Int : 322 ms P-R-T Axes : 52 5 74 degrees QTcB Int : 427 ms Sinus tachycardia Otherwise normal ECG When compared with ECG of 04-May-2024 01:11, QT has shortened Referred By: Trudy Simmons Electronically Signed By: HAJA FOX
--- NOTE | 2024-06-02 16:40 | ED.AMS ---
HPI - Altered Mental Status General Chief Complaint: Altered Mental Status Stated Complaint: Sepsis alert, lethargic, yesterday low H+H Time Seen by Provider: 06/02/24 15:46 Source: patient, EMS and old records reviewed Mode of arrival: EMS Limitations: altered mental status History of Present Illness ED Provider: DA LEACH narrative: 68 yo female with PMH of ESRD on HD, diabetes with ulcers and infection, anemia, seizures, CHF, HLD, HTN here with recent anemia admission DC 06/01/24, osteo with vanco end date 07/02/24 she presents again today with c/o fever 103, alterd, EMS found her with sat of 80% on RA - placed on 2L NC, has hernia of abdominal wall. MD complaint: altered mental status Onset (ago): day(s) (1) Timing confirmed by: caregiver Severity: moderate Consistency of symptoms: constant Context: other Associated symptoms: fever, chills and weakness Related Data Home Medications ?Medication ?Instructions ?Recorded ?Confirmed blood sugar diagnostic (FreeStyle 03/28/20 09/09/22 Lite Strips) blood-glucose meter (FreeStyle 03/28/20 09/09/22 Supai Lite kit) lancets 28 gauge (FreeStyle 03/28/20 09/09/22 Lancets) omeprazole 40 mg capsule,delayed 40 mg PO BID@0630,1630 10/02/21 05/27/24 release blood pressure test kit-large #1 ea 10/12/21 09/09/22 atorvastatin 80 mg tablet 80 mg PO DAILY 12/20/21 05/27/24 nebulizers 01/20/22 09/09/22 amlodipine 10 mg tablet 10 mg PO DAILY 05/29/22 05/27/24 lancets 33 gauge (TRUEplus Lancets) #100 ea 06/07/22 09/09/22 ferrous gluconate 324 mg (38 mg 324 mg PO DAILY 11/24/22 05/27/24 iron) tablet acetaminophen 650 mg 650 mg PO Q8H PRN mild pain 03/22/24 05/27/24 tablet,extended release diclofenac sodium 1 % topical gel 2 g topical BEDTIME PRN Pain 03/22/24 05/27/24 losartan 100 mg tablet 100 mg PO BID 03/22/24 05/27/24 valproic acid 250 mg capsule 500 mg PO BID 03/22/24 05/27/24 furosemide 40 mg tablet 80 mg PO BID 05/04/24 05/27/24 gabapentin 100 mg capsule 200 mg PO DAILY 05/04/24 05/27/24 gabapentin 300 mg capsule 300 mg PO MOWEFR@1800 05/04/24 05/27/24 levetiracetam 500 mg tablet 500 mg PO MOWEFR@1800 05/04/24 05/27/24 lorazepam 0.5 mg tablet 0.5 mg PO DAILY PRN anxiety 05/04/24 05/27/24 sertraline 50 mg tablet 50 mg PO DAILY 05/04/24 05/27/24 cholecalciferol (vitamin D3) 25 50 mcg PO DAILY 05/27/24 05/27/24 mcg (1,000 unit) tablet (Vitamin D3) dextrose 40 % oral gel (Glucose 10 g PO Q15M PRN low blood sugar 05/27/24 05/27/24 Gel) epoetin gabino-epbx 10,000 unit/mL 10,000 unit subcut MOWEFR@1645 05/27/24 05/27/24 injection solution (Retacrit) glucagon 1 mg solution for 1 mg subcut Q20M PRN low blood 05/27/24 05/27/24 injection (Glucagon Emergency Kit) sugar trazodone 50 mg tablet 100 mg PO BEDTIME 05/27/24 05/27/24 vancomycin 500 mg intravenous 500 mg PO MOWEFR@1645 05/27/24 05/27/24 solution Previous Rx's ?Medication ?Instructions ?Recorded phenytoin sodium extended 100 mg 100 mg PO TID #90 caps 11/03/23 capsule (Dilantin Extended) folic acid 1 mg tablet 1 mg PO DAILY #90 tabs 04/02/24 insulin glargine 100 unit/mL 10 unit (0.1 mL) subcut BEDTIME 05/22/24 subcutaneous solution (Lantus #10 mL U-100 Insulin) oxycodone 5 mg tablet See Rx Instructions .Route 06/01/24 .COMPLEX PRN Pain, Severe (Pain Scale 7-10) #30 tabs sodium hypochlorite 0.5 % solution 1 appl topical DAILY #1,000 mL 06/01/24 (Dakin's Solution) Allergies Allergy/AdvReac Type Severity Reaction Status Date / Time Egg Derived Allergy Unknown Verified 06/02/24 15:52 Review of Systems Review of Systems: ROS unable to be obtained due to altered mental status [facility] Past Medical History Attestation statement: The following information was validated with the patient. Source: old records reviewed Medical History Pressure ulcer of right hip ESRD (end stage renal disease) Eschar of trunk Thrombocytopenia Fall Anemia of chronic renal failure, stage 4 (severe) Acute subdural hematoma ESRD (end stage renal disease) on dialysis Anemia Eschar of heel Generalized seizure Acute kidney injury CKD (chronic kidney disease) stage 3, GFR 30-59 ml/min CHF (congestive heart failure) Anemia Brain tumor (benign) Lower extremity edema Pneumonia Asthma Pulmonary nodule HLD (hyperlipidemia) Seizure Acute hypoxemic respiratory failure due to COVID-19 COVID-19 Kidney stone Depression Gastritis Diabetes Surgical History 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) H/O lithotripsy H/O ureteroscopy H/O cystoscopy S/P ureteral stent placement History of cholecystectomy H/O hernia repair Family History Family History Father CAD (coronary artery disease) Brother Lung cancer Sister Kidney stone Social History Social History Household Members: Other Household Members Other:: from [facility] at this time Housing: House Are you a primary rn long term care to a significant other at home: No Unable to assess alcohol history related to: Unknown Alcohol intake: former Comment: pt sleeping at this time Patient Tobacco Use Status: Never used Tobacco e-Cigarette/Vaping Use: Never Used Advance Directives: Yes Advance Directives on File: Yes Advance Directives Date on File: 12/20/21 service: No Current occupational status: unemployed Physical Exam ED Vital Signs: Vital Signs - 24 hr 06/02/24 15:50 06/02/24 16:44 Temperature 103.5 F H Pulse Rate 110 H 103 H Respiratory Rate 28 H 19 Blood Pressure 135/48 L 147/52 H Pulse Oximetry 100 93 Oxygen Delivery Method Room Air Room Air BMI result Body Mass Index 37.5 Appearance: Somnolent moaning mild acute distress. Eyes: Pupils equal, round and reactive to light. ENT: Pharynx very dry MM Neck: Normal inspection. Neck supple. CVS: Normal heart rate and rhythm. Pulses normal. Chest: cath site c/d/i Respiratory: No respiratory distress. Breath sounds diminished Abdomen: Soft and has ventral hernia - no discoloration I cannot reduce it at bedside. Skin: Skin warm and dry. see pictures below - wounds on buttocks, feet, thigh. Extremities:no leg edema Neuro: cannot participate in exam Course Course Course Narrative: very difficult stick unable to get IV on repeat attempts Medications Administered Discontinued Medications Generic Name Dose Route Start Last Admin Trade Name Freq PRN Reason Stop Dose Admin Lactated Ringer's 1,000 mls @ 999 mls/hr 06/02/24 16:08 06/02/24 17:36 Lr IV 06/02/24 17:08 999 mls/hr .Q1H1M ONE Infusion Cefepime HCl 2 gm in 50 mls @ 100 mls/hr 06/02/24 16:08 06/02/24 17:36 Maxipime IV 06/02/24 16:37 Infused ONCE ONE Infusion Medical Decision Making Medical Decision Making [facility] Narrative: 68 yo female with PMH of ESRD on HD, diabetes with ulcers and infection, anemia, seizures, CHF, HLD, HTN here with c/o fevers, lethargy and AMS starting today was just discharged yesterday for osteo, anemia back to rehab. At this time I am going to alert sepsis - start on cefepime. Confirm last dose vanco at SNF pending. I am going to cover empirically until we know what she has. RN to call for last dose of vancomycin. Daughter at bedside and states mom is DNR/DNI but proceed with treatments. I have also ordered CXR for pneumonia, CT scan for obstructed hernia - unclear if this is new or old - no discoloration. Differential Diagnosis Differential Diagnoses: The differential diagnosis associated with the presentation includes UTI, pneumonia, Admission/Observation Consideration of admission/observation: Escalation of care including admission/observation considered admit for sepsis work up Consult Healthcare Provider Management of the patient was discussed with: Hospitalist (will admit) Lab Data [facility] Lab Attestation statement: I reviewed the patient's lab results. 06/02/24 16:10 06/02/24 16:10 Labs: Lab Results 06/02/24 06/02/24 Range/Units 16:10 17:11 WBC 13.7 H (4.8-10.8) X10*3/uL RBC 2.53 L (4.20-5.50) X10*6/uL Hgb 7.6 L (12.0-16.0) g/dl Hct 23.5 L (37.0-47.0) % MCV 92.9 (80.0-98.0) fL MCH 30.0 (27.0-33.0) pg MCHC 32.3 (31.0-35.0) g/dl RDW 19.1 H (11.0-16.0) % Plt Count TNP MPV 12.2 (9.4-12.3) fL Immature Gran % (Auto) 3.1 H (0.0-0.4) % Neut % (Auto) 83.9 H (45-73) % Lymph % (Auto) 8.1 L (20-40) % [place] % (Auto) 4.0 (2-11) % Eos % (Auto) 0.4 (0-4) % Baso % (Auto) 0.5 (0-2) % Lymph # (Auto) 1.1 L (1.2-4.9) X10*3/uL [place] # (Auto) 0.6 (0.1-1.2) X10*3/uL Eos # (Auto) 0.1 (0.0-0.4) X10*3/uL Baso # (Auto) 0.1 (0.0-0.2) X10*3/uL Abs Immat Gran (auto) 0.42 H (0.00-0.03) X10*3/uL Absolute Neuts (auto) 11.5 H (2.0-8.3) x10*3/uL Absolute Nucleated RBC 0.000 (0.0-0.012) X10*3/uL Nucleated RBC % (auto) 0.0 (0.0-0.2) /100WBC Sodium 142 (135-145) mmol/L Potassium 4.3 (3.3-5.1) mmol/L Chloride 107 (96-108) mmol/L Carbon Dioxide 19 L (22-29) mmol/L Anion Gap 20 (12-20) BUN 53 H (9-16) mg/dL Creatinine 5.93 H* (0.5-1.4) mg/dL Estim Creat Clear Calc 10.5 Estimated GFR 7 Random Glucose 80 (60-115) mg/dL Lactic Acid 0.7 (0.5-2.0) mmol/L Calcium 7.8 L (8.4-10.2) mg/dL Magnesium 1.9 (1.6-2.6) mg/dL Total Bilirubin 0.2 (0.0-1.0) mg/dL AST 28 (5-31) U/L ALT < 6 (0-31) U/L Alkaline Phosphatase 134 H (39-117) U/L Troponin I High Sens 31.5 H (<3.5-17.0) ng/L B-Natriuretic Peptide 311 H (<100) pg/mL Total Protein 6.0 L (6.5-8.0) g/dL Albumin 2.1 L (3.5-5.0) g/dL Influenza Type A (PCR) NEGATIVE (Negative) Influenza Type B (PCR) NEGATIVE (Negative) RSV RNA Qual (PCR) NEGATIVE (Negative) SARS-CoV-2 RNA (RT-PCR) NEGATIVE (Negative) Independent Interpretation I performed an independent interpretation of an: EKG, Plain X-Ray (no pneumonia) and CT Scan (no obstruction) Interpretation: Rate: 106 Rhythm: sinus tach [place]: normal Normal P waves. Normal COCO. Normal QRS complex. ST T wave : no MARLEN, nonspecific ST T wave changes ant leads qTC: 427 prior studies: no acute ischemia The study has been interpreted contemporaneously by me. . Radiology Impression Discussion of test interpretation with radiology: I have reviewed the radiologist's reading. Independent Historian Clinical information obtained from an independent historian. History obtained from or confirmed by: EMS and Other (daughter) External Record Review External record reviewed: Inpatient record and Outpatient record Procedures EJ/Peripheral Line Neck L: Time Out Performed: Yes Skin Cleansed in Sterile Fashion: Yes Size (gauge): 20 IV Secured and Dressing Applied: Yes Patient Tolerated Procedure: well and no complications Critical Care Time Critical Care Time Critical Care Time: Yes Total Critical Care Time: 45 Attestation: Time is exclusive of separately billable procedures. Time includes: direct patient care, patient reassessment, coordination of patient care, interpretation of data (laboratory data, pulse oximetry, arterial blood gases and chest xrays), review of patient's medical records, medical consultation and documentation of patient care. Procedures excluded from critical care time: electrocardiography. I attest to this time spent taking care of the patient Discharge Plan Discharge Clinical Impression: Fever, Elevated WBC count Patient Disposition: Admitted As Inpatient Prescriptions: No Action (DME) FreeStyle Lite Strips Strip MISCELLANEOUS QID (DME) blood-glucose meter [FreeStyle Supai Lite] Kit MISCELLANEOUS BID (DME) lancets [FreeStyle Lancets] 28 gauge misc 1 gauge topical BID omeprazole 40 mg capsule,delayed release(DR/EC) 40 mg PO BID@0630,1630 atorvastatin 80 mg tablet 80 mg PO DAILY amlodipine 10 mg tablet 10 mg PO DAILY phenytoin sodium extended [Dilantin Extended] 100 mg Capsule 100 mg PO TID Qty: 90 2RF trazodone 50 mg tablet 100 mg PO BEDTIME dextrose [Glucose Gel] 40 % Gel 10 g PO Q15M PRN (Reason: low blood sugar) Rx Instructions: until symptoms of low blood sugar are controlled Glucagon Emergency Kit (human) 1 mg Recon Soln 1 mg SUBCUT Q20M PRN (Reason: low blood sugar) Rx Instructions: until target blood sugar attained cholecalciferol (vitamin D3) [Vitamin D3] 25 mcg (1,000 unit) Tablet 50 mcg PO DAILY Retacrit 10,000 unit/mL Solution 10,000 unit SUBCUT MOWEFR@1645 vancomycin 500 mg Recon Soln 500 mg PO MOWEFR@1645 Rx Instructions: after dialysis based on level oxycodone 5 mg Tablet See Rx Instructions .ROUTE .COMPLEX PRN (Reason: Pain, Severe (Pain Scale 7-10)) Qty: 30 0RF Rx Instructions: 5-10 mg PO q4 hr prn mod-sev pain Dakin's Solution 0.5 % Solution 1 appl topical DAILY Qty: 1000 0RF ferrous gluconate 324 mg (38 mg iron) tablet 324 mg PO DAILY valproic acid 250 mg capsule 500 mg PO BID acetaminophen 650 mg tablet extended release 650 mg PO Q8H PRN (Reason: mild pain) losartan 100 mg tablet 100 mg PO BID diclofenac sodium 1 % gel 2 g topical BEDTIME PRN (Reason: Pain) Rx Instructions: APPLY 2 GRAMS TOPICALLY TO FEET AT BEDTIME NEEDED folic acid 1 mg Tablet 1 mg PO DAILY Qty: 90 0RF furosemide 40 mg tablet 80 mg PO BID lorazepam 0.5 mg tablet 0.5 mg PO DAILY PRN (Reason: anxiety) gabapentin 300 mg capsule 300 mg PO MOWEFR@1800 Rx Instructions: after dialysis sertraline 50 mg tablet 50 mg PO DAILY gabapentin 100 mg capsule 200 mg PO DAILY levetiracetam 500 mg tablet 500 mg PO MOWEFR@1800 Rx Instructions: give after dialysis insulin glargine [Lantus U-100 Insulin] 100 unit/mL Solution 10 unit subcut BEDTIME Qty: 10 0RF (DME) blood pressure test kit-large Kit See Rx Instructions .ROUTE DAILY Qty: 1 Rx Instructions: As directed (DME) nebulizers Misc See Rx Instructions .Route Rx Instructions: As directed (DME) lancets [TRUEplus Lancets] 33 gauge misc See Rx Instructions .ROUTE BID Qty: 100 Rx Instructions: As directed Print Language: Polish
[2024-06-02 16:43] LABS: B Type Natriuretic Peptide 311 pg/mL (<100)
[2024-06-02 16:46] LABS: Imm Gran Pct Auto 3.1 % (0.0-0.4); MANUAL DIFF FLAG SCAN; Mean Corpuscular Volume 92.9 fL (80.0-98.0); PLT CLUMP 1; SCAN SMEAR FLAG 1
[2024-06-02 16:47] LABS: Troponin-I High Sensitivity 31.5 ng/L (<3.5-17.0)
[2024-06-02 16:48] LABS: Basophils Absolute Auto 0.1 X10*3/uL (0.0-0.2); Basophils Percent Auto 0.5 % (0-2); Eosinophils Absolute Auto 0.1 X10*3/uL (0.0-0.4); Eosinophils Percent Auto 0.4 % (0-4); Hematocrit 23.5 % (37.0-47.0); Hemoglobin 7.6 g/dl (12.0-16.0); Imm Gran Abs Auto 0.42 X10*3/uL (0.00-0.03); Lymphocytes Absolute Auto 1.1 X10*3/uL (1.2-4.9); Lymphocytes Percent Auto 8.1 % (20-40); Mean Corpuscular HGB Conc 32.3 g/dl (31.0-35.0); Mean Platelet Volume 12.2 fL (9.4-12.3); Monocytes Absolute Auto 0.6 X10*3/uL (0.1-1.2); Neutrophils Absolute Auto 11.5 x10*3/uL (2.0-8.3); Neutrophils Percent Auto 83.9 % (45-73); Red Blood Count 2.53 X10*6/uL (4.20-5.50); Red Cell Distribution Width 19.1 % (11.0-16.0)
[2024-06-02 16:52] LABS: White Blood Count 13.7 X10*3/uL (4.8-10.8)
[2024-06-02 16:54] LABS: Lactic Acid 0.7 mmol/L (0.5-2.0)
[2024-06-02 16:59] LABS: Alanine Aminotransferase < 6 U/L (0-31); Albumin Level 2.1 g/dL (3.5-5.0); Anion Gap 20 (12-20); Aspartate Amino Transferase 28 U/L (5-31); Bilirubin Total 0.2 mg/dL (0.0-1.0); Blood Urea Nitrogen 53 mg/dL (9-16); Calcium 7.8 mg/dL (8.4-10.2); Carbon Dioxide 19 mmol/L (22-29); Chloride 107 mmol/L (96-108); Creatinine Clr Calc Pharmacy 10.5; Estimated Glomerular Filt Rate 7; Glucose Random 80 mg/dL (60-115); Magnesium 1.9 mg/dL (1.6-2.6); Potassium 4.3 mmol/L (3.3-5.1); Sodium 142 mmol/L (135-145)
--- NOTE | 2024-06-02 17:02 | PC.NURSE ---
Took critical value of creatnine of 5.93 from lab, abbe Hurtado working w/ primary RN Gisela made aware. Pt. is ESRD patient.
[2024-06-02] MEDS: Lactated Ringers 1,000 ML 999 ML IV (17:03)
[2024-06-02] MEDS: cefEPime HCl/D5W 2 GM/50 ML PIGGYBACK IV (17:08)
--- NOTE | 2024-06-02 17:21 | PC.NURSE ---
pt came in via ems, minimally responsive- moaning, pt very difficult stick, unable to get access, provider obtained US guided access to LT neck, upon obtaining labs from this site the line was lost, techs and additional nurses attempted to obtain IV sites without being able to get access or straight stick for labs. Dr. Simmons had to obtain additional access which was difficult to obtain and took many attempts via US. We were unable to obtain a 2nd set of blood cultures from this new IV access. Phlebotomy was called to attempt 2nd set of blood cultures. Additionally patient has multiple wounds to rt hip, left lateral thigh, left small toe, left calf- all dressings were changed wet/dry dressings applied, rt heel has black eschar allevyn life heel dressing applied, lt gluteal fold is open to air. 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 iv abx were started, pt went to ct scan, upon returning IVF were restarted. family at bedside, call flannery within reach, plan of care ongoing.
[2024-06-02 17:26] LABS: Alkaline Phosphatase 134 U/L (39-117)
--- NOTE | 2024-06-02 17:37 | PC.NURSE ---
Re:Vancomycin Administration: [place] [facility] [place]comycin to be held until 06/03 vancomycin 500 mg 500 mg PO MOWEFR@9944 Hold Instructions: Resume on 06/03/24. Hold pending vancomycin level on 06/03/24 Rx Instructions: after dialysis based on level
[2024-06-02 17:51] LABS: Influenza A PCR NEGATIVE (Negative); Influenza B PCR NEGATIVE (Negative); Resp Syncy Virus RNA Qual PCR NEGATIVE (Negative); SARS COV2 PCR INHOUSE NEGATIVE (Negative)
--- NOTE | 2024-06-02 18:27 | PHA.MEDREC ---
Pharmacy Consult ? Medication Reconciliation Pharmacy has completed the medication reconciliation. Patient discharged yesterday, med rec originally done with list from [facility]. Utilized claim and discharge summary
[2024-06-02 18:53] LABS: SLIDE REVIEW VERIFIED
--- NOTE | 2024-06-02 19:32 | PC.NURSE ---
blood cultures: we were only able to obtain 1 set of blood cultures due to the patients difficulty stick, this nurse attempted to get phlebotomy to come draw the patient which they never arrived to the ed, additionally- the executive secretary called the hospital malt house kiln operator in attempts to get phlebotomy to come draw- they never came. This was communicated to the night order selector nurse Nida.
--- NOTE | 2024-06-02 21:49 | P.HPHOSP_ITS ---
History of Present Illness Date of Service: 06/02/24 Attending physician on admission: Lino Ireland Chief Complaint: AMS Patient is a 61 old female past medical history significant for ESRD on HD MWF, insulin-dependent diabetes, chronic skin ulcers, chronic anemia secondary to ESRD, seizure disorder, HFpEF, HLD and HTN, recently discharged to [facility] yesterday due to osteomyelitis/calciphylaxis on IV vanco x1 month, who presented back to the ED by EMS due to AMS and fever. EMS noted that the pt was hypoxic at 80% ORA but has not required O2 here. The pt is unable to give a history due to AMS. Her daughter is present, who is unable to give any additional history. The pt's nurse notes that she had significant diarrhea with very foul odor. The pt has not yet received vancomycin since being discharged as her level was elevated and was going to be rechecked after HD tomomorrow. In the ED the pt recieved 1L LR and cefepime. Review of Systems 2 Review of Systems: Yes Unobtainable due to mental condition [facility] Medical History Pressure ulcer of right hip ESRD (end stage renal disease) Eschar of trunk Thrombocytopenia Fall Anemia of chronic renal failure, stage 4 (severe) Acute subdural hematoma ESRD (end stage renal disease) on dialysis Anemia Eschar of heel Generalized seizure Acute kidney injury CKD (chronic kidney disease) stage 3, GFR 30-59 ml/min CHF (congestive heart failure) Anemia Brain tumor (benign) Lower extremity edema Pneumonia Asthma Pulmonary nodule HLD (hyperlipidemia) Seizure Acute hypoxemic respiratory failure due to COVID-19 COVID-19 Kidney stone Depression Gastritis Diabetes Family History Father CAD (coronary artery disease) Brother Lung cancer Sister Kidney stone Surgical History 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) H/O lithotripsy H/O ureteroscopy H/O cystoscopy S/P ureteral stent placement History of cholecystectomy H/O hernia repair Social History Household Members: Other Household Members Other:: retirement Housing: [facility] Are you a primary director long term care to a significant other at home: No Unable to assess alcohol history related to: Unknown Alcohol intake: former Comment: pt sleeping at this time Patient Tobacco Use Status: Never used Tobacco e-Cigarette/Vaping Use: Never Used Use of substances other than those prescribed or required for medical reasons: Unable to respond Advance Directives: Yes Advance Directives on File: Yes Advance Directives Date on File: 12/20/21 Recently lost weight without trying: Unsure Nutrition Risks: Difficulty chewing and Difficulty swallowing Patient : No service: No Current occupational status: unemployed Meds Allergies Allergy/AdvReac Type Severity Reaction Status Date / Time Egg Derived Allergy Unknown Verified 06/02/24 15:52 Active Medications: Current Medications Calcium Carbonate (Calcium Carbonate 750 Mg Tab.Chew) 750 mg PO Q4H PRN PRN Reason: Heartburn Epoetin Gabino-epbx (Epoetin Gabino-Epbx 10,000 Unit/Ml Vial) 10,000 unit SUBCUT MOWEFR@1645 KATHERINE Hydromorphone HCl (Hydromorphone Hcl 1 Mg/Ml Syringe) 0.5 mg IVPUSH Q4H PRN; Protocol PRN Reason: Pain, Severe (Pain Scale 7-10) Acetaminophen (Ofirmev) 1,000 mg in 100 mls @ 400 mls/hr IV Q6H KATHERINE Linezolid (Zyvox/D5w) 600 mg in 300 mls @ 300 mls/hr IV Q12H KATHERINE Valproic Acid 500 mg/ Dextrose 55 mls @ 55 mls/hr IV Q12H KATHERINE Phenytoin Sodium 100 mg/ (Sodium Chloride) 102 mls @ 100 mls/hr IV TID KATHERINE Magnesium Hydroxide (Milk Of Magnesia 30 Ml Oral.Susp) 30 ml PO DAILY PRN PRN Reason: Constipation Melatonin (Melatonin 3 Mg Tablet) 6 mg PO BEDTIME PRN PRN Reason: Insomnia Meropenem (Meropenem 1 Gm Vial) 1 gm IVPUSH Q24H KATHERINE Ondansetron HCl (Ondansetron Hcl 4 Mg/2 Ml Vial) 4 mg IVPUSH Q8H PRN PRN Reason: Nausea and Vomiting Sodium Chloride (0.9 % Sodium Chloride Flush 3 Ml Syringe) 3 ml IVFLUSH QSHIFT KATHERINE Sodium Hypochlorite (Sodium Hypochlorite 0.5% 473 Ml Solution) 1 appl TOPICAL DAILY [facility] Home Medications ?Medication ?Instructions ?Recorded ?Confirmed ?Last Taken ?Type blood sugar diagnostic (FreeStyle 03/28/20 06/02/24 Unknown History Lite Strips) blood-glucose meter (FreeStyle 03/28/20 06/02/24 Unknown History [place] Lite kit) lancets 28 gauge (FreeStyle 03/28/20 06/02/24 Unknown History Lancets) omeprazole 40 mg capsule,delayed 40 mg PO BID@0630,1630 10/02/21 06/02/24 03/21/24 History release blood pressure test kit-large #1 ea 10/12/21 06/02/24 Unknown History atorvastatin 80 mg tablet 80 mg PO DAILY 12/20/21 06/02/24 03/21/24 History nebulizers 01/20/22 06/02/24 Unknown History amlodipine 10 mg tablet 10 mg PO DAILY 05/29/22 06/02/24 03/21/24 History lancets 33 gauge (TRUEplus Lancets) #100 ea 06/07/22 06/02/24 Unknown History ferrous gluconate 324 mg (38 mg 324 mg PO DAILY 11/24/22 06/02/24 03/21/24 History iron) tablet acetaminophen 650 mg 650 mg PO Q8H PRN mild pain 03/22/24 06/02/24 Unknown History tablet,extended release diclofenac sodium 1 % topical gel 2 g topical BEDTIME PRN Pain 03/22/24 06/02/24 03/21/24 History losartan 100 mg tablet 100 mg PO BID 03/22/24 06/02/24 03/21/24 History valproic acid 250 mg capsule 500 mg PO BID 03/22/24 06/02/24 03/21/24 History furosemide 40 mg tablet 80 mg PO BID 05/04/24 06/02/24 Unknown History gabapentin 100 mg capsule 200 mg PO DAILY 05/04/24 06/02/24 Unknown History gabapentin 300 mg capsule 300 mg PO MOWEFR@1800 05/04/24 06/02/24 Unknown History levetiracetam 500 mg tablet 500 mg PO MOWEFR@1800 05/04/24 06/02/24 Unknown History lorazepam 0.5 mg tablet 0.5 mg PO DAILY PRN anxiety 05/04/24 06/02/24 Unknown History sertraline 50 mg tablet 50 mg PO DAILY 05/04/24 06/02/24 Unknown History cholecalciferol (vitamin D3) 25 50 mcg PO DAILY 05/27/24 06/02/24 Unknown History mcg (1,000 unit) tablet (Vitamin D3) dextrose 40 % oral gel (Glucose 10 g PO Q15M PRN low blood sugar 05/27/24 06/02/24 Unknown History Gel) epoetin gabino-epbx 10,000 unit/mL 10,000 unit subcut MOWEFR@1645 05/27/24 06/02/24 05/20/24 History injection solution (Retacrit) glucagon 1 mg solution for 1 mg subcut Q20M PRN low blood 05/27/24 06/02/24 Unknown History injection (Glucagon Emergency Kit) sugar trazodone 50 mg tablet 100 mg PO BEDTIME 05/27/24 06/02/24 Unknown History vancomycin 500 mg intravenous 500 mg PO MOWEFR@1645 05/27/24 06/02/24 Unknown History solution oxycodone 5 mg tablet 5 - 10 mg PO Q4H PRN Pain, Severe 06/02/24 06/02/24 Unknown History (Pain Scale 7-10) Physical Exam 2 Vital Signs and Narrative: Vital Signs: Last Vital Signs Temp 103.2 F H 06/02/24 21:21 Pulse 110 H 06/02/24 21:21 Resp 17 06/02/24 21:21 BP 197/79 H 06/02/24 21:21 Pulse Ox 95 06/02/24 21:21 O2 Del Method Room Air 06/02/24 21:21 BMI result Body Mass Index 37.5 General: obtunded, no acute distress Resp: CTA bilaterally, diminished throughout CVS: S1, S2, RRR GI: +BS, NT, no distention. large ventral hernia. Skin: Warm, dry Neuro: PERRL Extremities: No LE edema. see D note for photos of wounds. Psych: obtunded Results Labs 06/02/24 16:10 06/02/24 16:10 Labs: Laboratory Results - last 24 hr 06/02/24 06/02/24 16:10 17:11 MCV 92.9 MCH 30.0 MCHC 32.3 RDW 19.1 H Plt Count TNP MPV 12.2 Immature Gran % (Auto) 3.1 H Neut % (Auto) 83.9 H Lymph % (Auto) 8.1 L Millard % (Auto) 4.0 Eos % (Auto) 0.4 Baso % (Auto) 0.5 Lymph # (Auto) 1.1 L Millard # (Auto) 0.6 Eos # (Auto) 0.1 Baso # (Auto) 0.1 Abs Immat Gran (auto) 0.42 H Absolute Neuts (auto) 11.5 H Absolute Nucleated RBC 0.000 Nucleated RBC % (auto) 0.0 Smear Tech's Comments VERIFIED Anion Gap 20 Estim Creat Clear Calc 10.5 Estimated GFR 7 Random Glucose 80 Lactic Acid 0.7 Calcium 7.8 L Magnesium 1.9 Total Bilirubin 0.2 AST 28 ALT < 6 Alkaline Phosphatase 134 H B-Natriuretic Peptide 311 H Total Protein 6.0 L Albumin 2.1 L Influenza Type A (PCR) NEGATIVE Influenza Type B (PCR) NEGATIVE RSV RNA Qual (PCR) NEGATIVE SARS-CoV-2 RNA (RT-PCR) NEGATIVE Assessment and Plan (1) Sepsis: Status: Acute (2) Acute metabolic encephalopathy: Status: Acute (3) Osteomyelitis: Qualifiers: Laterality: left Osteomyelitis location: foot Osteomyelitis type: o ther acute Qualified Code(s): M86.172 - Other acute osteomyelitis, left ankle and foot Status: Acute (4) Calciphylaxis: Status: Acute (5) Chronic anemia: Status: Chronic (6) ESRD (end stage renal disease): Status: Acute (7) Obesity (BMI 30-39.9): Status: Acute Plan Patient is a 61 old female past medical history significant for ESRD on HD MWF, insulin-dependent diabetes, chronic skin ulcers, chronic anemia secondary to ESRD, seizure disorder, HFpEF, HLD and HTN, recently discharged to [facility] yesterday due to osteomyelitis/calciphylaxis on IV vanco x1 month, who presented back to the ED by EMS due to AMS and fever. In the ED the pt recieved 1L LR and cefepime. the pt is obtunded and unable to give a history. sepsis and acute metabolic encephalopathy secondary to osteomyelitis and possible secondary infection ?cdiff - WBC 13.0, fever of 103.2, tachy, lactic acid normal, blood cultures x2 pending, not severe sepsis - CXR negative for PNA - A/P CT - no acute findings, ventral hernia without obstruction - UA ordered - stool testing ordered including c diff - pt still having fever on vancomycin, recent culture from L leg wound 05/23 with lord resistant VRE and proteus, start linezolid and meropenem - ID consult - wound care consult - given 1L LR in ED, hold off on further fluids due to CHF. BP stable - IV tylenol - monitor CBC and BMP chronic anemia, likely secondary to ESRD - H+H stable, no need for blood transfusion - monitor CBC - recent GI consult: too high risk for any procedures; recommended to continue supportive care with transfusions, Procrit, iron, and omeprazole; avoid NSAIDs + aspirin ESRD on HD MWF - nephrology consult IDDM - blood sugary low normal - hold basal insulin for now, resume lantus 10U QHS when appropriate - sliding scale - diabetic diet seizure disroder - cannot take PO due to mental status, phenytoin and valproic acid IV for now, resume PO home meds when appropriate chronic HFpEF - no acute exacerbation - continue home meds when appropriate HLD - continue home meds when appropriate HTN - BP elevated, unable to take p.o. meds currently - labetalol 20 mg IV x1 - resume home meds when appropriate obesity - BMI 37.5 - weight loss encouraged DNR/DNI VTE prophylaxis: Pneumoboots Patient with sepsis and acute metabolic encephalopathy secondary to osteomyelitis and possible secondary infection, requiring admission for at least 2 midnights stay for IV antibiotics and monitoring. Quality Stroke Does the patient have a stroke diagnosis?: No VTE Prior VTE?: No VTE Risk Level:: Medical - moderate - high VTE Device Contraindication: N/A - Device Ordered VTE Drug Contraindication: Treatment Not Indicated
[2024-06-02] MEDS: Linezolid/D5W 600 MG/300 ML PIGGYBACK 300 MG IV (22:19)
[2024-06-02] MEDS: Meropenem 1 GM VIAL IVPUSH (22:19)
[2024-06-02] MEDS: Acetaminophen 1,000 MG/100 ML PIGGYBACK 400 MG IV (22:19)
[2024-06-02] MEDS: Labetalol HCL 100 MG/20 ML VIAL 20 MG IVPUSH (22:23)
[2024-06-02] MEDS: PHENYTOIN SODIUM IV (23:43)
[2024-06-02] MEDS: SODIUM CHLORIDE 0.9% IV (23:43)
[2024-06-03] VITALS (8 sets, daily range): BP systolic 108–136; BP diastolic 48–67; PULSE 74–98; RESP 16–18; TEMP 36.4–37.6; O2SAT 94–97; BMI 37.5
[2024-06-03 00:01] LABS: Glucose, Whole Blood 119 mg/dL (60-115)
[2024-06-03] MEDS: 0.9 % Sodium Chloride Flush 3 ML SYRINGE IVFLUSH ×4 (01:25→21:00)
[2024-06-03] MEDS: Valproic Acid (as Sodium Salt) 250 MG in Dextrose 5 % 50 ML 52.5 MG IV ×2 (01:25→09:28)
[2024-06-03 03:52] LABS: Glucose, Whole Blood 96 mg/dL (60-115)
[2024-06-03] MEDS: Acetaminophen 1,000 MG/100 ML PIGGYBACK 400 MG IV ×3 (04:24→21:02)
--- NOTE | 2024-06-03 06:09 | PC.NURSE ---
telepack placed 0600
[2024-06-03 06:21] LABS: Basophils Absolute Auto 0.1 X10*3/uL (0.0-0.2); Basophils Percent Auto 0.7 % (0-2); Eosinophils Percent Auto 0.3 % (0-4); Hematocrit 21.1 % (37.0-47.0); Imm Gran Abs Auto 0.42 X10*3/uL (0.00-0.03); Imm Gran Pct Auto 3.7 % (0.0-0.4); Lymphocytes Percent Auto 8.9 % (20-40); Mean Corpuscular HGB Conc 31.3 g/dl (31.0-35.0); Mean Corpuscular Hemoglobin 29.2 pg (27.0-33.0); Mean Corpuscular Volume 93.4 fL (80.0-98.0); Monocytes Absolute Auto 0.6 X10*3/uL (0.1-1.2); Monocytes Percent Auto 4.9 % (2-11); Neutrophils Absolute Auto 9.3 x10*3/uL (2.0-8.3); Neutrophils Percent Auto 81.5 % (45-73); Red Blood Count 2.26 X10*6/uL (4.20-5.50)
[2024-06-03 06:41] LABS: Anion Gap 20 (12-20); Blood Urea Nitrogen 62 mg/dL (9-16); Calcium 7.7 mg/dL (8.4-10.2); Carbon Dioxide 17 mmol/L (22-29); Chloride 107 mmol/L (96-108); Estimated Glomerular Filt Rate 7; Glucose Random 102 mg/dL (60-115); Potassium 4.3 mmol/L (3.3-5.1); Sodium 140 mmol/L (135-145)
[2024-06-03 07:13] LABS: Glucose, Whole Blood 98 mg/dL (60-115)
[2024-06-03 07:26] LABS: Hemoglobin 6.6 g/dl (12.0-16.0); White Blood Count 11.5 X10*3/uL (4.8-10.8)
[2024-06-03] MEDS: SODIUM CHLORIDE 0.9% IV (07:59)
[2024-06-03] MEDS: PHENYTOIN SODIUM IV (07:59)
[2024-06-03] MEDS: HYDROmorphone HCl 0.5 MG/0.5 ML SYRINGE IVPUSH ×4 (08:51→22:15)
[2024-06-03] MEDS: Sodium Hypochlorite 0.5% 473 ML SOLUTION 1 APPL TOPICAL (08:54)
--- NOTE | 2024-06-03 09:19 | MHC.CM.PN ---
CM attempted to reach daughter/HCP Amarillis x2 via telephone medical collector. No answer, left voicemail. IMM delivered. Per chart review, patient lives at home w/ daughter who is second time worker caregiver. Uses a walker at baseline. [place] [facility] [place] [facility] - where she has been for STR and IV abx. HD M[facility]W/F @ [facility] PCP Lucrecia Teixeira HCP on file. DP: Likely return to [facility]. Return referral sent via [facility]. CM will continue to follow.
--- NOTE | 2024-06-03 09:28 | PM.EVENT ---
Event Note Date of Service: 06/03/24 Event Note: Consult received this AM Chart reviewed Pt gets HD MWF I have arranged HD - Spoke to HD nurse Time Spent With Patient Time: Total time managing care of this patient today ____ minutes.
[2024-06-03 11:04] LABS: CDiff Gene PCR NEGATIVE (Negative)
[2024-06-03] MEDS: oxyCODONE HCl Immed Release 5 MG TABLET 10 MG PO ×3 (11:28→20:40)
[2024-06-03 11:57] LABS: Vancomycin Random 25.2 mcg/mL (15-20)
--- NOTE | 2024-06-03 12:18 | P.PNIM_ITS ---
Subjective Subjective Date of Service: 06/03/24 Interval History: This history was taken in [place] from the patient. Fever resolved Has watery diarrhea C/o pain from wounds Review of Systems Review of Systems: Yes all other systems are reviewed and are negative Physical Exam 2 Vital Signs: Vital Signs: Last Vital Signs Temp 98.7 F 06/03/24 07:17 Pulse 83 06/03/24 07:17 Resp 18 06/03/24 07:17 BP 109/53 L 06/03/24 07:17 Pulse Ox 97 06/03/24 07:17 O2 Del Method Room Air 06/03/24 07:17 BMI result Body Mass Index 37.5 Gen: chronically ill-appearing HEENT: sclera anicteric, moist mucus membranes Neck: supple Lungs: clear to auscultation bilaterally, RIJ HD catheter Heart: regular rate and rhythm, no murmurs Abd: soft, non-tender, non-distended, obese Ext: no edema Skin: warm/well-perfused, multiple pressure ulcers with eschar on R hip, L calf, L 5th toe amputation site, R heel with exposed bone Neuro: alert and oriented x3, no focal findings Psych: appropriate affect Objective Data Active Medications Alteplase, Recombinant (Alteplase Cath Clear 2 Mg/2 Ml Vial) 3.6 mg INTRACATH ONCE PRN PRN Reason: poor bfr with hemodialysis tx Amlodipine Besylate (Amlodipine Besylate 10 Mg Tablet) 10 mg PO DAILY KATHERINE; Protocol Atorvastatin Calcium (Atorvastatin Calcium 80 Mg Tablet) 80 mg PO DAILY COUNT INCLUDES THE [facility] Calcium Carbonate (Calcium Carbonate 750 Mg Tab.Chew) 750 mg PO Q4H PRN PRN Reason: Heartburn Dextrose (Dextrose 50 % 25 Gm/50 Ml Syringe) 25 gm IVPUSH Q15M PRN; Protocol PRN Reason: per Hypoglycemia Standing Ord. Epoetin Wesley-epbx (Epoetin Wesley-Epbx 10,000 Unit/Ml Vial) 10,000 unit SUBCUT MOWEFR@1645 COUNT INCLUDES THE [facility] Ferrous Sulfate (Ferrous Sulfate 324 Mg Tablet.Dr) 325 mg PO DAILY COUNT INCLUDES THE [facility] Folic Acid (Folic Acid 1 Mg Tablet) 1 mg PO DAILY COUNT INCLUDES THE [facility] Furosemide (Furosemide 40 Mg Tablet) 80 mg PO BID KATHERINE; Protocol Gabapentin (Gabapentin 300 Mg Capsule) 300 mg PO MOWEFR@1800 COUNT INCLUDES THE [facility] Gabapentin (Gabapentin 100 Mg Capsule) 200 mg PO DAILY COUNT INCLUDES THE [facility] Glucose (Glucose Gel 15 Gm Gel..Gram.) 15 gm PO Q15M PRN; Protocol PRN Reason: per Hypoglycemia Standing Ord. Hydromorphone HCl (Hydromorphone Hcl 0.5 Mg/0.5 Ml Syringe) 0.5 mg IVPUSH Q4H PRN; Protocol PRN Reason: Pain, Severe (Pain Scale 7-10) Last Admin: 06/03/24 08:51 Dose: 0.5 mg Documented By: LINDA Acetaminophen (Ofirmev) 1,000 mg in 100 mls @ 400 mls/hr IV Q6H COUNT INCLUDES THE [facility] Last Infusion: 06/03/24 05:09 Dose: Infused Documented By: YASMIN Linezolid (Zyvox/D5w) 600 mg in 300 mls @ 300 mls/hr IV Q12H COUNT INCLUDES THE [facility] Last Infusion: 06/02/24 23:20 Dose: Infused Documented By: YASMIN Levetiracetam (Levetiracetam 500 Mg Tablet) 500 mg PO MOWEFR@1800 KATHERINE Loperamide HCl (Loperamide Hcl 2 Mg Capsule) 2 mg PO Q4H PRN PRN Reason: diarrhoea Lorazepam (Lorazepam 0.5 Mg Tablet) 0.5 mg PO DAILY PRN PRN Reason: anxiety Losartan Potassium (Losartan Potassium 50 Mg Tablet) 100 mg PO BID COUNT INCLUDES THE [facility]; Protocol Magnesium Hydroxide (Milk Of Magnesia 30 Ml Oral.Susp) 30 ml PO DAILY PRN PRN Reason: Constipation Melatonin (Melatonin 3 Mg Tablet) 6 mg PO BEDTIME PRN PRN Reason: Insomnia Meropenem (Meropenem 1 Gm Vial) 1 gm IVPUSH Q24H COUNT INCLUDES THE [facility] Last Admin: 06/02/24 22:19 Dose: 1 gm Documented By: PAULA Omeprazole (Omeprazole 40 Mg Capsule.Dr) 40 mg PO BID@0630,1630 KATHERINE Ondansetron HCl (Ondansetron Hcl 4 Mg/2 Ml Vial) 4 mg IVPUSH Q8H PRN PRN Reason: Nausea and Vomiting Oxycodone HCl (Oxycodone Hcl Immed Release 5 Mg Tablet) 10 mg PO Q4H PRN PRN Reason: Pain, Severe (Pain Scale 7-10) Last Admin: 06/03/24 11:28 Dose: 10 mg Documented By: QUANG Oxycodone HCl (Oxycodone Hcl Immed Release 5 Mg Tablet) 5 mg PO Q4H PRN PRN Reason: Pain, Moderate(Pain Scale 4-6) Phenytoin Sodium (Phenytoin Sodium Extended 100 Mg Capsule) 100 mg PO TID COUNT INCLUDES THE [facility] Sertraline HCl (Sertraline Hcl 50 Mg Tablet) 50 mg PO DAILY COUNT INCLUDES THE [facility] Sodium Chloride (0.9 % Sodium Chloride Flush 3 Ml Syringe) 3 ml IVFLUSH QSHIFT COUNT INCLUDES THE [facility] Last Admin: 06/03/24 08:01 Dose: 3 ml Documented By: LINDA Sodium Hypochlorite (Sodium Hypochlorite 0.5% 473 Ml Solution) 1 appl TOPICAL DAILY COUNT INCLUDES THE [facility] Last Admin: 06/03/24 08:54 Dose: 1 appl Documented By: LINDA Trazodone HCl (Trazodone Hcl 100 Mg Tablet) 100 mg PO BEDTIME COUNT INCLUDES THE [facility] Valproic Acid (Valproic Acid 250 Mg Capsule) 500 mg PO BID COUNT INCLUDES THE [facility] Vitamin D (Cholecalciferol (Vitamin D3) 25 Mcg Tablet) 50 mcg PO DAILY COUNT INCLUDES THE [facility] Labs 06/03/24 05:45 06/03/24 05:45 Labs: Laboratory Results - last 24 hr 06/02/24 06/02/24 06/02/24 16:10 17:11 23:56 MCV 92.9 MCH 30.0 MCHC 32.3 RDW 19.1 H Plt Count TNP MPV 12.2 Immature Gran % (Auto) 3.1 H Neut % (Auto) 83.9 H Lymph % (Auto) 8.1 L Lares % (Auto) 4.0 Eos % (Auto) 0.4 Baso % (Auto) 0.5 Lymph # (Auto) 1.1 L Lares # (Auto) 0.6 Eos # (Auto) 0.1 Baso # (Auto) 0.1 Abs Immat Gran (auto) 0.42 H Absolute Neuts (auto) 11.5 H Absolute Nucleated RBC 0.000 Nucleated RBC % (auto) 0.0 Smear Tech's Comments VERIFIED Anion Gap 20 Estim Creat Clear Calc 10.5 Estimated GFR 7 POC Glucose 119 H Random Glucose 80 Lactic Acid 0.7 Calcium 7.8 L Magnesium 1.9 Total Bilirubin 0.2 AST 28 ALT < 6 Alkaline Phosphatase 134 H B-Natriuretic Peptide 311 H Total Protein 6.0 L Albumin 2.1 L Random Vancomycin C. difficile Tox B Gene Influenza Type A (PCR) NEGATIVE Influenza Type B (PCR) NEGATIVE RSV RNA Qual (PCR) NEGATIVE SARS-CoV-2 RNA (RT-PCR) NEGATIVE Crossmatch 06/03/24 06/03/24 06/03/24 03:48 05:45 07:02 MCV 93.4 MCH 29.2 MCHC 31.3 RDW 19.0 H Plt Count TNP MPV TNP Immature Gran % (Auto) 3.7 H Neut % (Auto) 81.5 H Lymph % (Auto) 8.9 L Lares % (Auto) 4.9 Eos % (Auto) 0.3 Baso % (Auto) 0.7 Lymph # (Auto) 1.0 L Lares # (Auto) 0.6 Eos # (Auto) 0.0 Baso # (Auto) 0.1 Abs Immat Gran (auto) 0.42 H Absolute Neuts (auto) 9.3 H Absolute Nucleated RBC 0.000 Nucleated RBC % (auto) 0.0 Smear Tech's Comments Anion Gap 20 Estim Creat Clear Calc 10.0 Estimated GFR 7 POC Glucose 96 98 Random Glucose 102 Lactic Acid Calcium 7.7 L Magnesium Total Bilirubin AST ALT Alkaline Phosphatase B-Natriuretic Peptide Total Protein Albumin Random Vancomycin C. difficile Tox B Gene Influenza Type A (PCR) Influenza Type B (PCR) RSV RNA Qual (PCR) SARS-CoV-2 RNA (RT-PCR) Crossmatch 06/03/24 06/03/24 09:02 11:26 MCV MCH MCHC RDW Plt Count MPV Immature Gran % (Auto) Neut % (Auto) Lymph % (Auto) Lares % (Auto) Eos % (Auto) Baso % (Auto) Lymph # (Auto) Lares # (Auto) Eos # (Auto) Baso # (Auto) Abs Immat Gran (auto) Absolute Neuts (auto) Absolute Nucleated RBC Nucleated RBC % (auto) Smear Tech's Comments Anion Gap Estim Creat Clear Calc Estimated GFR POC Glucose Random Glucose Lactic Acid Calcium Magnesium Total Bilirubin AST ALT Alkaline Phosphatase B-Natriuretic Peptide Total Protein Albumin Random Vancomycin 25.2 H* C. 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 No cough and no lung infiltrate. Already on vancomycin for osteomyelitis [end date 07/02/24] and level is still supratherapeutic. Wound from L leg wound grew VRE + multiply resistant Proteus but per ID this was likely colonization. Peripheral blood cultures drawn and will request blood culture from hemodialysis line as well. Started on linezolid and meropenem 06/02-, ID consultation pending acute-chronic anemia, likely secondary to ESRD - Hb 6.6, will transfuse 1 units with HD today - per recent GI consult: too high risk for any procedures; recommended to continue supportive care with transfusions, Procrit, iron, and omeprazole; avoid NSAIDs + aspirin calciphylaxis - will consult Wound Care and Gen Surgery again. From last admission: - s/p sharp excisional debridement of R heel ulcer 05/28; unfortunately, may eventually need BKA given exposed calcaneus - s/p sharp excisional debridement of full thickness of skin and part of subcutaneous layer done with scissors; area about 10 x 8 cm debrided - clean wound to L foot at amputation site - wound care recommendations: Skin Folds - Cleanse with PH balance wipes, pat dry with soft cloth.? Apply antifungal power to assist with moisture management.? Be sure to dust of excess powder to prevent caking on skin and in folds. Apply per provider orders. Tuck Interdry AG Sheet into skin fold to wick and translocate moisture away from skin fold.? Be sure to leave at least 2 inch of fabric exposed outside of skin fold.? Change after 5 days or when soiled. Left Foot - Elevate heels off of bed surface with pillows. Cleanse and irrigate with NS, Pat dry.? Apply barrier to periwound, lightly pack with Durafiber AG, be sure to leave a wick to easy removal.? Cover with gauze and wrap dressing.? Change every other day. Perineal, buttock and Left Ischium - Off Load Pressure with Q2 hr turns and use of pillows - Cleanse with PH balance spray or wipes, pat dry. ?Apply thin layer of Triad to wound bed - only pat and dab no scrub and rub when soiling occurs. Reapply thin layer PRN after each episode of incontinence. Right Heel, Bilateral Thighs and left Calf - Off Load Pressure with Q2 hr turns and use of pillows - Cleanse with NS moist gauze, pat dry. ?Apply thin layer of Triad to periwound. Apply Dakins moist gauze to entire wound bed, cover with dry gauze, ABD pad and gauze wrap or tape change Daily. ESRD - continued HD MWF DM2 - correction-dose lispro seizure disorder - continue levetiracetam, valproate, phenytoin HTN - continue amlodipine, losartan mood disorder - continue sertraline, lorazepam, trazodone neuropathy - continue gabapentin HLD - continue statin VTE ppx - SCDs, no heparin given anemia In my clinical judgment, the patient requires continued inpatient hospitalization for the following reasons: IV ABX, sepsis, transfusion, wound care Total time managing care of this patient today: 50 minutes. Quality Stroke Does the patient have a stroke diagnosis?: No VTE Prior VTE?: No VTE Risk Level:: Medical - moderate - high VTE Device Contraindication: N/A - Device Ordered VTE Drug Contraindication: Treatment Not Indicated
--- NOTE | 2024-06-03 12:29 | MHC.CLN ---
NUTRITION DIET=NPO. PATIENT WITH ESRD ON HEMODIALYSIS. WOUNDS IDENTIFIED BY WOUND RN PRIOR ADM 05/29. WOUNDS INCLUDE LEFT ISCHIUM DTI; MASD TO BUTTOCKS/PERIANAL AREA; DM WOUND TO RIGHT HEEL. WHEN ABLE TO RESUME DIET, CONSIDER NUTRITIONAL SUPPLEMENT TO PROMOTE SKIN INTEGRITY. FOLLOW FOR DIET ADVANCEMENT, PO INTAKE AND SKIN INTEGRITY. SEE CLINICAL NUTRITION ASSESSMENT 06/03/24.
--- NOTE | 2024-06-03 12:43 | HO.SKINPHOTO ---
Location:Left foot Category: Stage: Length: Width: Depth: cm Location:Left Lower Leg Category: Stage: Length: Width: Depth: cm Location: Category: Stage: Length: Width: Depth: cm Location:Left Thigh Category: Stage: Length: Width: Depth: cm Location:Right foot Category: Stage: Length: Width: Depth: cm Location:Right Hip Category: Stage: Length: Width: Depth: cm
--- NOTE | 2024-06-03 12:47 | HO.SKINPHOTO ---
Location: Right hip Category: Stage: Length: Width: Depth: cm Location: Right foot Category: Stage: Length: Width: Depth: cm Location: Left Thigh Category: Stage: Length: Width: Depth: cm Location: Left lower leg Category: Stage: Length: Width: Depth: cm Location: left foot Category: Stage: Length: Width: Depth: cm
[2024-06-03] MEDS: Linezolid/D5W 600 MG/300 ML PIGGYBACK 300 MG IV ×2 (14:34→22:23)
[2024-06-03 14:37] LABS: Adenovirus F 40/41 Not Detected (Not Detect.); Astrovirus Not Detected (Not Detect.); Campylobacter Not Detected (Not Detect.); Cryptosporidium Not Detected (Not Detect.); Cyclospora cayetanensis Not Detected (Not Detect.); E. coli EAEC Not Detected (Not Detect.); E. coli EPEC Not Detected (Not Detect.); E. coli ETEC Not Detected (Not Detect.); E. coli STEC Not Detected (Not Detect.); Entamoeba histolytica Not Detected (Not Detect.); Giardia lamblia Not Detected (Not Detect.); Norovirus GI/GII Not Detected (Not Detect.); Plesiomonas shigelloides Not Detected (Not Detect.); Rotavirus A Not Detected (Not Detect.); Salmonella Not Detected (Not Detect.); Sapovirus Not Detected (Not Detect.); Shigella sp./EIEC Not Detected (Not Detect.); Vibrio Not Detected (Not Detect.); Vibrio Cholerae Not Detected (Not Detect.); Yersinia enterocolitica Not Detected (Not Detect.)
[2024-06-03] MEDS: Phenytoin Sodium Extended 100 MG CAPSULE PO ×2 (14:38→20:41)
[2024-06-03] MEDS: Ferrous Sulfate 324 MG TABLET.DR 325 MG PO (14:39)
--- NOTE | 2024-06-03 14:40 | PC.NURSE ---
Proxy/daughter consented to blood transfusion over the phone with the use of briquetter operator. Daughter Nelly phone number listed on file was disconnected, was able to reach her by calling patients listed cell phone number
[2024-06-03] MEDS: Omeprazole 40 MG CAPSULE.DR PO (15:27)
[2024-06-03 16:09] LABS: Glucose, Whole Blood 131 mg/dL (60-115)
[2024-06-03] MEDS: Epoetin Alfa-epbx 10,000 UNIT/ML VIAL 10000 UNIT SUBCUT (16:52)
[2024-06-03] MEDS: Gabapentin 300 MG CAPSULE PO (17:19)
[2024-06-03] MEDS: levETIRAcetam 500 MG TABLET PO (17:19)
[2024-06-03] MEDS: Furosemide 40 MG TABLET 80 MG PO (20:40)
[2024-06-03] MEDS: traZODone HCL 100 MG TABLET PO (20:41)
[2024-06-03] MEDS: Losartan Potassium 50 MG TABLET PO (20:41)
[2024-06-03 20:45] LABS: Glucose, Whole Blood 78 mg/dL (60-115)
[2024-06-03] MEDS: Dextrose 50 % 25 GM/50 ML SYRINGE IVPUSH (22:17)
[2024-06-03 22:54] LABS: Glucose, Whole Blood 149 mg/dL (60-115)
[2024-06-03] MEDS: Meropenem 1 GM VIAL IVPUSH (23:51)
[2024-06-04] VITALS (9 sets, daily range): BP systolic 101–158; BP diastolic 49–69; PULSE 78–93; RESP 16–20; TEMP 36.3–37.9; O2SAT 93–98
[2024-06-04 03:23] LABS: Glucose, Whole Blood 88 mg/dL (60-115)
[2024-06-04] MEDS: Acetaminophen 1,000 MG/100 ML PIGGYBACK 400 MG IV ×4 (04:16→22:53)
[2024-06-04] MEDS: Dextrose 50 % 25 GM/50 ML SYRINGE IVPUSH (04:34)
--- NOTE | 2024-06-04 05:01 | PC.NURSE ---
Addendum entered by Samantha Lindquist RN 06/04/24 06:13: Rechecked POC 146 at 05:30, MD Jean-Baptiste notified of the new POC. No new orders given at this time. Will continue to monitor pt's POC. Original Note: Late entry: 06/03/24: Upon assuming care of pt at 19:00, pt was lethargic,unable to assess orientation, per family pt is nonverbal but primarily Azeri speaking. Pt was moaning/crying in bed, had difficulty swallowing medications in apple sauce during bedtime medications. Pt's NPO diet, s/p hemodiaylsis and blood transfusion. Pt's POC at 20:39 was 78. MD Jean-Baptiste was notified of the situation. This RN called MD and was given order through phone to give Dextrose 50% IV, see MAR. Pt's POC after the 1st dose of dextrose 50% came up to 149 at 22:49. Per order, pt's POC was check again for 04:00, see order in worklist. POC at 04:00 was 88, MD Jean-Baptiste was notified of the changes in pt's POC. Per MD, another round of dextrose 50% was given to pt at 04:34, see MAR. next time to reassess POC at 05:34. Will continue to monitor.
[2024-06-04 05:34] LABS: Glucose, Whole Blood 146 mg/dL (60-115)
[2024-06-04] MEDS: HYDROmorphone HCl 0.5 MG/0.5 ML SYRINGE IVPUSH ×4 (05:44→23:49)
[2024-06-04 05:47] LABS: MANUAL DIFF FLAG NO
[2024-06-04 05:58] LABS: Basophils Absolute Auto 0.1 X10*3/uL (0.0-0.2); Basophils Percent Auto 0.7 % (0-2); Eosinophils Absolute Auto 0.1 X10*3/uL (0.0-0.4); Eosinophils Percent Auto 1.1 % (0-4); Hematocrit 22.5 % (37.0-47.0); Hemoglobin 7.2 g/dl (12.0-16.0); Imm Gran Abs Auto 0.23 X10*3/uL (0.00-0.03); Imm Gran Pct Auto 2.1 % (0.0-0.4); Lymphocytes Absolute Auto 0.9 X10*3/uL (1.2-4.9); Mean Corpuscular Hemoglobin 29.3 pg (27.0-33.0); Mean Corpuscular Volume 91.5 fL (80.0-98.0); Mean Platelet Volume 11.9 fL (9.4-12.3); Monocytes Absolute Auto 0.8 X10*3/uL (0.1-1.2); Monocytes Percent Auto 7.5 % (2-11); NRBC Pct Auto 0.2 /100WBC (0.0-0.2); Neutrophils Absolute Auto 8.8 x10*3/uL (2.0-8.3); Neutrophils Percent Auto 80.6 % (45-73); Platelet Count 34 X10*3/uL (160-400); Red Blood Count 2.46 X10*6/uL (4.20-5.50); Red Cell Distribution Width 17.9 % (11.0-16.0); White Blood Count 10.9 X10*3/uL (4.8-10.8)
[2024-06-04 06:11] LABS: Anion Gap 16 (12-20)
[2024-06-04 06:45] LABS: Blood Urea Nitrogen 33 mg/dL (9-16); Calcium 7.4 mg/dL (8.4-10.2); Carbon Dioxide 22 mmol/L (22-29); Chloride 103 mmol/L (96-108); Creatinine Clr Calc Pharmacy 15.1; Estimated Glomerular Filt Rate 11; Glucose Random 147 mg/dL (60-115); Potassium 3.3 mmol/L (3.3-5.1); Sodium 138 mmol/L (135-145)
[2024-06-04 07:19] LABS: Glucose, Whole Blood 107 mg/dL (60-115)
--- NOTE | 2024-06-04 08:59 | PC.NURSE ---
Patient lethargic,unable to administer morning meds,daughter at bedside concerned that her mother is not speaking anymore,patient BS is 107 Dr. Reynoso notified
[2024-06-04] MEDS: 0.9 % Sodium Chloride Flush 3 ML SYRINGE IVFLUSH ×2 (09:08→09:59)
[2024-06-04 10:27] LABS: Glucose, Whole Blood 95 mg/dL (60-115)
--- NOTE | 2024-06-04 10:39 | MHC.SLORD ---
Speech Language Pathology Order Status: SCRAP CUTTER attempted to see pt for clinical swallow eval at bedside; pt away from room this AM.
[2024-06-04] MEDS: Linezolid/D5W 600 MG/300 ML PIGGYBACK 300 MG IV ×2 (11:01→23:28)
[2024-06-04 11:59] LABS: Glucose, Whole Blood 133 mg/dL (60-115)
--- NOTE | 2024-06-04 14:01 | HO.PM.IMPN ---
Subjective Subjective Date of Service: 06/04/24 Interval History: Somnolent nonverbal this morning. We will open eyes to verbal stimulation at times Review of Systems Unable to obtain Physical Exam Vital Signs: Vital Signs: Last Vital Signs Temp 99.8 F 06/04/24 11:39 Pulse 86 06/04/24 11:39 Resp 20 06/04/24 11:39 BP 124/61 06/04/24 11:39 Pulse Ox 94 06/04/24 11:39 O2 Del Method Room Air 06/04/24 11:39 BMI result Body Mass Index 37.5 Const: Other: Somnolent but arousable Resp: Other: Clear to auscultation bilaterally no rales rhonchi or wheezes Cardio: Other: No S4; positive S1-S2; no S3 murmurs rubs or gallops GI: Other: Soft nontender nondistended normoactive bowel sounds Extrem: Other: No edema bilaterally Objective Data Active Medications Alteplase, Recombinant (Alteplase Cath Clear 2 Mg/2 Ml Vial) 3.6 mg INTRACATH ONCE PRN PRN Reason: poor bfr with hemodialysis tx Amlodipine Besylate (Amlodipine Besylate 10 Mg Tablet) 10 mg PO DAILY [facility]; Protocol Last Admin: 06/04/24 08:52 Dose: Not Given Documented By: FELECIA Non-Admin Reason: pt lethargic Atorvastatin Calcium (Atorvastatin Calcium 80 Mg Tablet) 80 mg PO DAILY [facility] Last Admin: 06/04/24 08:54 Dose: Not Given Documented By: FELECIA Non-Admin Reason: pt lethargic Calcium Carbonate (Calcium Carbonate 750 Mg Tab.Chew) 750 mg PO Q4H PRN PRN Reason: Heartburn Dextrose (Dextrose 50 % 25 Gm/50 Ml Syringe) 25 gm IVPUSH Q15M PRN; Protocol PRN Reason: per Hypoglycemia Standing Ord. Last Admin: 06/04/24 04:34 Dose: 25 gm Epoetin Wesley-epbx (Epoetin Wesley-Epbx 10,000 Unit/Ml Vial) 10,000 unit SUBCUT MOWEFR@0707 [facility] Last Admin: 06/03/24 16:52 Dose: 10,000 unit Documented By: LINDA Ferrous Sulfate (Ferrous Sulfate 324 Mg Tablet.Dr) 325 mg PO DAILY [facility] Last Admin: 06/04/24 08:56 Dose: Not Given Documented By: FELECIA Non-Admin Reason: pt is lethargic Folic Acid (Folic Acid 1 Mg Tablet) 1 mg PO DAILY [facility] Last Admin: 06/04/24 08:54 Dose: Not Given Documented By: FELECIA Non-Admin Reason: pt lethargic Furosemide (Furosemide 40 Mg Tablet) 80 mg PO BID [facility]; Protocol Last Admin: 06/04/24 08:56 Dose: Not Given Documented By: FELECIA Non-Admin Reason: pt is lethargic Gabapentin (Gabapentin 300 Mg Capsule) 300 mg PO MOWEFR@1800 [facility] Last Admin: 06/03/24 17:19 Dose: 300 mg Documented By: LINDA Gabapentin (Gabapentin 100 Mg Capsule) 200 mg PO DAILY [facility] Last Admin: 06/04/24 08:54 Dose: Not Given Documented By: FELECIA Non-Admin Reason: pt lethargic Glucose (Glucose Gel 15 Gm Gel..Gram.) 15 gm PO Q15M PRN; Protocol PRN Reason: per Hypoglycemia Standing Ord. Hydromorphone HCl (Hydromorphone Hcl 0.5 Mg/0.5 Ml Syringe) 0.5 mg IVPUSH Q4H PRN; Protocol PRN Reason: Pain, Severe (Pain Scale 7-10) Last Admin: 06/04/24 05:44 Dose: 0.5 mg Documented By: VIPUL Acetaminophen (Ofirmev) 1,000 mg in 100 mls @ 400 mls/hr IV Q6H [facility] Last Infusion: 06/04/24 10:20 Dose: Infused Documented By: FELECIA Linezolid (Zyvox/D5w) 600 mg in 300 mls @ 300 mls/hr IV Q12H [facility] Last Infusion: 06/04/24 12:16 Dose: Infused Documented By: FELECIA Sodium Thiosulfate 12.5 gm/ (Sodium Chloride) 200 mls @ 400 mls/hr IV Q30M [facility] Stop: 06/05/24 18:59 Insulin Human Lispro (Insulin Lispro 100 Unit/Ml 3 Ml Vial) 0 unit SUBCUT QIDACHS [facility]; Protocol Last Admin: 06/04/24 12:53 Dose: Not Given Documented By: FELECIA Non-Admin Reason: No Insulin Coverage Levetiracetam (Levetiracetam 500 Mg Tablet) 500 mg PO MOWEFR@1800 [facility] Last Admin: 06/03/24 17:19 Dose: 500 mg Documented By: LINDA Loperamide HCl (Loperamide Hcl 2 Mg Capsule) 2 mg PO Q4H PRN PRN Reason: diarrhoea Lorazepam (Lorazepam 0.5 Mg Tablet) 0.5 mg PO DAILY PRN PRN Reason: anxiety Losartan Potassium (Losartan Potassium 50 Mg Tablet) 50 mg PO BID [facility]; Protocol Last Admin: 06/04/24 08:55 Dose: Not Given Documented By: FELECIA Non-Admin Reason: pt is lethargic Magnesium Hydroxide (Milk Of Magnesia 30 Ml Oral.Susp) 30 ml PO DAILY PRN PRN Reason: Constipation Melatonin (Melatonin 3 Mg Tablet) 6 mg PO BEDTIME PRN PRN Reason: Insomnia Meropenem (Meropenem 1 Gm Vial) 1 gm IVPUSH Q24H [facility] Last Admin: 06/03/24 23:51 Dose: 1 gm Documented By: VIPUL Omeprazole (Omeprazole 40 Mg Capsule.) 40 mg PO BID@0630,1630 [facility] Last Admin: 06/04/24 05:30 Dose: Not Given Documented By: VIPUL Non-Admin Reason: Patient Condition Contraindication Ondansetron HCl (Ondansetron Hcl 4 Mg/2 Ml Vial) 4 mg IVPUSH Q8H PRN PRN Reason: Nausea and Vomiting Oxycodone HCl (Oxycodone Hcl Immed Release 5 Mg Tablet) 10 mg PO Q4H PRN PRN Reason: Pain, Severe (Pain Scale 7-10) Last Admin: 06/03/24 20:40 Dose: 10 mg Documented By: VIPUL Oxycodone HCl (Oxycodone Hcl Immed Release 5 Mg Tablet) 5 mg PO Q4H PRN PRN Reason: Pain, Moderate(Pain Scale 4-6) Phenytoin Sodium (Phenytoin Sodium Extended 100 Mg Capsule) 100 mg PO TID [facility] Last Admin: 06/04/24 08:55 Dose: Not Given Documented By: FELECIA Non-Admin Reason: pt is lethargic Sertraline HCl (Sertraline Hcl 50 Mg Tablet) 50 mg PO DAILY [facility] Last Admin: 06/04/24 08:52 Dose: Not Given Documented By: FELECIA Non-Admin Reason: pt lethargic Sodium Chloride (0.9 % Sodium Chloride Flush 3 Ml Syringe) 3 ml IVFLUSH QSHIFT [facility] Last Admin: 06/04/24 09:59 Dose: 3 ml Documented By: FELECIA Sodium Hypochlorite (Sodium Hypochlorite 0.5% 473 Ml Solution) 1 appl TOPICAL DAILY [facility] Last Admin: 06/03/24 08:54 Dose: 1 appl Documented By: LUCIAME Trazodone HCl (Trazodone Hcl 100 Mg Tablet) 100 mg PO BEDTIME [facility] Last Admin: 06/03/24 20:41 Dose: 100 mg Documented By: NATAL Valproic Acid (Valproic Acid 250 Mg Capsule) 500 mg PO BID [facility] Last Admin: 06/04/24 08:53 Dose: Not Given Documented By: FELECIA Non-Admin Reason: pt lethargic Vitamin D (Cholecalciferol (Vitamin D3) 25 Mcg Tablet) 50 mcg PO DAILY [facility] Last Admin: 06/04/24 08:56 Dose: Not Given Documented By: FELECIA Non-Admin Reason: pt is lethargic Labs 06/04/24 05:31 06/04/24 05:31 Labs: Laboratory Results - last 24 hr 06/03/24 06/03/24 06/03/24 09:02 11:26 15:55 MCV MCH MCHC RDW Plt Count MPV Immature Gran % (Auto) Neut % (Auto) Lymph % (Auto) Sac % (Auto) Eos % (Auto) Baso % (Auto) Lymph # (Auto) Sac # (Auto) Eos # (Auto) Baso # (Auto) Abs Immat Gran (auto) Absolute Neuts (auto) Absolute Nucleated RBC Nucleated RBC % (auto) Anion Gap Estim Creat Clear Calc Estimated GFR POC Glucose 131 H Random Glucose Calcium Stl C. cayetanensis PCR Not Detected Stool Rotavirus A PCR Not Detected Stl Adenov F 40/41 PCR Not Detected Stool Astrovirus (PCR) Not Detected Stool Campylobacter PCR Not Detected Stool Cryptosporidium PCR Not Detected Stl Sh Tox Pr E STEC PCR Not Detected Stool E coli O157 PCR Not applicable Stl Enterotoxigenic E PCR Not Detected Stool EPEC (PCR) Not Detected Stool EAEC (PCR) Not Detected Stl E. histolytica PCR Not Detected Stool Giardia Lamblia PCR Not Detected Stl P. shigelloides PCR Not Detected Stool Salmonella PCR Not Detected Stool Sapovirus (PCR) Not Detected Stl Shigella/EIEC PCR Not Detected St Y.enterocolitica PCR Not Detected Stool Vibrio (PCR) Not Detected Stl Vibrio cholerae PCR Not Detected Stl Norovirus GI/GII PCR Not Detected Blood Type O Positive Antibody Screen NEGATIVE Crossmatch See Detail 06/03/24 06/03/24 06/04/24 20:39 22:49 03:15 MCV MCH MCHC RDW Plt Count MPV Immature Gran % (Auto) Neut % (Auto) Lymph % (Auto) Sac % (Auto) Eos % (Auto) Baso % (Auto) Lymph # (Auto) Sac # (Auto) Eos # (Auto) Baso # (Auto) Abs Immat Gran (auto) Absolute Neuts (auto) Absolute Nucleated RBC Nucleated RBC % (auto) Anion Gap Estim Creat Clear Calc Estimated GFR POC Glucose 78 149 H 88 Random Glucose Calcium Stl C. cayetanensis PCR Stool Rotavirus A PCR Stl Adenov F 40/41 PCR Stool Astrovirus (PCR) Stool Campylobacter PCR Stool Cryptosporidium PCR Stl Sh Tox Pr E STEC PCR Stool E coli O157 PCR Stl Enterotoxigenic E PCR Stool EPEC (PCR) Stool EAEC (PCR) Stl E. histolytica PCR Stool Giardia Lamblia PCR Stl P. shigelloides PCR Stool Salmonella PCR Stool Sapovirus (PCR) Stl Shigella/EIEC PCR St Y.enterocolitica PCR Stool Vibrio (PCR) Stl Vibrio cholerae PCR Stl Norovirus GI/GII PCR Blood Type Antibody Screen Crossmatch 06/04/24 06/04/24 06/04/24 05:30 05:31 07:15 MCV 91.5 MCH 29.3 MCHC 32.0 RDW 17.9 H Plt Count 34 L D MPV 11.9 Immature Gran % (Auto) 2.1 H Neut % (Auto) 80.6 H Lymph % (Auto) 8.0 L Sac % (Auto) 7.5 Eos % (Auto) 1.1 Baso % (Auto) 0.7 Lymph # (Auto) 0.9 L Sac # (Auto) 0.8 Eos # (Auto) 0.1 Baso # (Auto) 0.1 Abs Immat Gran (auto) 0.23 H Absolute Neuts (auto) 8.8 H Absolute Nucleated RBC 0.020 H Nucleated RBC % (auto) 0.2 Anion Gap 16 Estim Creat Clear Calc 15.1 Estimated GFR 11 POC Glucose 146 H 107 Random Glucose 147 H Calcium 7.4 L Stl C. cayetanensis PCR Stool Rotavirus A PCR Stl Adenov F 40/41 PCR Stool Astrovirus (PCR) Stool Campylobacter PCR Stool Cryptosporidium PCR Stl Sh Tox Pr E STEC PCR Stool E coli O157 PCR Stl Enterotoxigenic E PCR Stool EPEC (PCR) Stool EAEC (PCR) Stl E. histolytica PCR Stool Giardia Lamblia PCR Stl P. shigelloides PCR Stool Salmonella PCR Stool Sapovirus (PCR) Stl Shigella/EIEC PCR St Y.enterocolitica PCR Stool Vibrio (PCR) Stl Vibrio cholerae PCR Stl Norovirus GI/GII PCR Blood Type Antibody Screen Crossmatch 06/04/24 06/04/24 10:21 11:54 MCV MCH MCHC RDW Plt Count MPV Immature Gran % (Auto) Neut % (Auto) Lymph % (Auto) Sac % (Auto) Eos % (Auto) Baso % (Auto) Lymph # (Auto) Sac # (Auto) Eos # (Auto) Baso # (Auto) Abs Immat Gran (auto) Absolute Neuts (auto) Absolute Nucleated RBC Nucleated RBC % (auto) Anion Gap Estim Creat Clear Calc Estimated GFR POC Glucose 95 133 H Random Glucose Calcium Stl C. cayetanensis PCR Stool Rotavirus A PCR Stl Adenov F 40/41 PCR Stool Astrovirus (PCR) Stool Campylobacter PCR Stool Cryptosporidium PCR Stl Sh Tox Pr E STEC PCR Stool E coli O157 PCR Stl Enterotoxigenic E PCR Stool EPEC (PCR) Stool EAEC (PCR) Stl E. histolytica PCR Stool Giardia Lamblia PCR Stl P. shigelloides PCR Stool Salmonella PCR Stool Sapovirus (PCR) Stl Shigella/EIEC PCR St Y.enterocolitica PCR Stool Vibrio (PCR) Stl Vibrio cholerae PCR Stl Norovirus GI/GII PCR Blood Type Antibody Screen Crossmatch Microbiology Microbiology Results: Microbiology 06/03/24 10:52 Blood Culture - Preliminary Blood - Central Line No growth after 24 hours. 06/03/24 05:45 Blood Culture - Preliminary Blood - Venous No growth after 24 hours. 06/02/24 16:10 Blood Culture - Preliminary Blood - Venous No growth after 24 hours. 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 CXR negative -vancomycin [end date 07/02/24] remains supratherapeutic. -linezolid and meropenem(3) -follow renals/divalents/vanco daily 2.Acute-chronic anemia, likely secondary to ESRD -good response to anemia -Procrit, iron, omeprazole -follow CBC 3.Calciphylaxis - will consult Wound Care and Gen Surgery again. From last admission: - s/p sharp excisional debridement of R heel ulcer 05/28; unfortunately, may eventually need BKA given exposed calcaneus - s/p sharp excisional debridement of full thickness of skin and part of subcutaneous layer done with scissors; area about 10 x 8 cm debrided - clean wound to L foot at amputation site - wound care recommendations: Skin Folds - Cleanse with PH balance wipes, pat dry with soft cloth.? Apply antifungal power to assist with moisture management.? Be sure to dust of excess powder to prevent caking on skin and in folds. Apply per provider orders. Tuck Interdry AG Sheet into skin fold to wick and translocate moisture away from skin fold.? Be sure to leave at least 2 inch of fabric exposed outside of skin fold.? Change after 5 days or when soiled. Left Foot - Elevate heels off of bed surface with pillows. Cleanse and irrigate with NS, Pat dry.? Apply barrier to periwound, lightly pack with Durafiber AG, be sure to leave a wick to easy removal.? Cover with gauze and wrap dressing.? Change every other day. Perineal, buttock and Left Ischium - Off Load Pressure with Q2 hr turns and use of pillows - Cleanse with PH balance spray or wipes, pat dry. ?Apply thin layer of Triad to wound bed - only pat and dab no scrub and rub when soiling occurs. Reapply thin layer PRN after each episode of incontinence. Right Heel, Bilateral Thighs and left Calf - Off Load Pressure with Q2 hr turns and use of pillows - Cleanse with NS moist gauze, pat dry. ?Apply thin layer of Triad to periwound. Apply Dakins moist gauze to entire wound bed, cover with dry gauze, ABD pad and gauze wrap or tape change Daily. 3.ESRD - continued HD MWF -follow renals/divalents 4.Diabetes type II -acceptable control on current therapies -lispro correctional scale -adjust as indicated 5.Seizure disorder - continue levetiracetam, valproate, phenytoin -switch to IV if fails speech eval 6. Hypertension -acceptable control on current therapies -adjust as indicated SCDs, no heparin given anemia Dnr/DNI In my clinical judgment, the patient requires continued inpatient hospitalization for the following reasons: IV ABX, sepsis, transfusion, wound care Quality Stroke Does the patient have a stroke diagnosis?: No VTE Prior VTE?: No VTE Risk Level:: Medical - moderate - high VTE Device Contraindication: N/A - Device Ordered VTE Drug Contraindication: Treatment Not Indicated
--- NOTE | 2024-06-04 15:24 | MHC.SL.SWA ---
Dysphasia Diet Status: NPO Liquid Consistency and Strategies for Safe Swallow: Liquid Intake Recommendation: NPO Solid Food Consistency: Dietary Recommendations: NPO Oral Medication Intake: NPO Please contact the pharmacy regarding appropriate crushable or liquid drug formulations that are available whenever modified delivery is recommended. Supervision While Eating and Drinking for Safe Swallow: PO with SIGNS AND DISPLAYS SALESPERSON Recommendation for Speech: Further Testing Needed Inpatient Speech Therapy Comment: Pt seen for bedside swallow evaluation, deemed unsafe for PO at this time d/t excessive prompting needed to swallow small bites/sips and continuous need for redirection from opening mouth moaning/crying with PO. Recommend continue NPO. SIGNS AND DISPLAYS SALESPERSON to re-evaluate tomorrow. Can perform RN swallow screen in meantime if deemed appropriate. Massage Therapist Clinican/Clinical Fellow: No Supervisory Statement: I have reviewed and agree with the student/clinical fellow's documentation: N/A Speech Language Pathologist: Gina Khan M.A., CCC-SIGNS AND DISPLAYS SALESPERSON
[2024-06-04] MEDS: Sodium Hypochlorite 0.5% 473 ML SOLUTION 1 APPL TOPICAL (16:03)
[2024-06-04] MEDS: Dextrose 5 % and Lactated Ring 1,000 ML 100 ML IVCONT (16:03)
[2024-06-04 16:10] LABS: Glucose, Whole Blood 102 mg/dL (60-115)
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
[2024-06-04 19:47] LABS: Glucose, Whole Blood 103 mg/dL (60-115)
[2024-06-04] MEDS: Meropenem 1 GM VIAL IVPUSH (22:47)
[2024-06-05] MEDS: 0.9 % Sodium Chloride Flush 3 ML SYRINGE IVFLUSH (01:09)
[2024-06-05] MEDS: LORazepam 1 MG TABLET PO (01:24)
[2024-06-05] MEDS: Dextrose 5 % and Lactated Ring 1,000 ML 100 ML IVCONT ×2 (01:26→11:46)
[2024-06-05 03:10] VITALS: BP 118/56; PULSE 73; RESP 20; TEMP 37.1; O2SAT 95
[2024-06-05 03:40] LABS: Glucose, Whole Blood 104 mg/dL (60-115)
[2024-06-05] MEDS: HYDROmorphone HCl 0.5 MG/0.5 ML SYRINGE IVPUSH ×2 (04:03→06:22)
[2024-06-05] MEDS: Acetaminophen 1,000 MG/100 ML PIGGYBACK 400 MG IV ×3 (04:07→17:53)
[2024-06-05 06:22] VITALS: RESP 16
--- NOTE | 2024-06-05 06:29 | PC.NURSE ---
dr tovar contacted notified 1. pt has been given dilaudid 0.5 mg iv prn every 4 hours for pain 2. pt is restless and screaming out in [place] 3. she is indicating that she is having pain in her legs and pelvis 4. she is not due for pain medicine until 0800. 1. per give prn dilaudid 0.5 mg iv now
[2024-06-05 07:10] LABS: Glucose, Whole Blood 114 mg/dL (60-115)
[2024-06-05] MEDS: Losartan Potassium 50 MG TABLET PO (07:41)
[2024-06-05] MEDS: Gabapentin 100 MG CAPSULE 200 MG PO (07:41)
[2024-06-05] MEDS: oxyCODONE HCl Immed Release 5 MG TABLET 10 MG PO ×2 (07:41→11:16)
[2024-06-05] MEDS: Ferrous Sulfate 324 MG TABLET.DR 325 MG PO (07:41)
[2024-06-05] MEDS: Sertraline HCL 50 MG TABLET PO (07:41)
[2024-06-05] MEDS: amLODIPine Besylate 10 MG TABLET PO (07:42)
[2024-06-05] MEDS: Cholecalciferol (Vitamin D3) 25 MCG TABLET 50 MCG PO (07:42)
[2024-06-05] MEDS: Furosemide 40 MG TABLET 80 MG PO (07:42)
[2024-06-05] MEDS: Atorvastatin Calcium 80 MG TABLET PO (07:42)
[2024-06-05] MEDS: Phenytoin Sodium Extended 100 MG CAPSULE PO ×2 (07:42→14:44)
[2024-06-05] MEDS: Valproic Acid 250 MG CAPSULE 500 MG PO (07:42)
[2024-06-05] MEDS: Folic Acid 1 MG TABLET PO (07:42)
[2024-06-05 07:53] VITALS: BP 134/60; PULSE 78; RESP 18; TEMP 37.4; O2SAT 96
[2024-06-05] MEDS: HYDROmorphone HCl 1 MG/ML SYRINGE IVPUSH ×4 (07:57→17:54)
--- NOTE | 2024-06-05 08:57 | PM.CNGS ---
History of Present Illness Consult details Consult date: 06/05/24 Narrative: 68-year-old female well known to me multiple wounds. She has end-stage renal disease on dialysis. She was poor overall health and is bed-bound. She has had this right hip ulcer which I had debrided on her last admission. She also has this heel ulcer with exposed calcaneus with the eschar. She had undergone amputation of the 5th toe in April,. She has had a poorly healing wound on this area as well She was actually just discharged to the longterm 5 days ago was was readmitted the following day because of fever I have been consulted because of her open wounds. The patient is not communicative verbally currently. Review of Systems Review of Systems: Yes Unobtainable due to mental condition and Unobtainable due to mental status Constitutional: Constitutional: Reports fever(s) Cardiovascular: Cardiovascular: Reports dyspnea Respiratory: Respiratory: Reports dyspnea PMFSH Past Medical History Medical History Cellulitis Pressure ulcer of right hip ESRD (end stage renal disease) Eschar of trunk Thrombocytopenia Fall Anemia of chronic renal failure, stage 4 (severe) Acute subdural hematoma ESRD (end stage renal disease) on dialysis Anemia Eschar of heel Generalized seizure Acute kidney injury CKD (chronic kidney disease) stage 3, GFR 30-59 ml/min CHF (congestive heart failure) Anemia Brain tumor (benign) Lower extremity edema Pneumonia Asthma Pulmonary nodule HLD (hyperlipidemia) Seizure Acute hypoxemic respiratory failure due to COVID-19 COVID-19 Kidney stone Depression Gastritis Diabetes Family History Family History Father CAD (coronary artery disease) Brother Lung cancer Sister Kidney stone Surgical History Surgical History 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) H/O lithotripsy H/O ureteroscopy H/O cystoscopy S/P ureteral stent placement History of cholecystectomy H/O hernia repair Social History Social History Household Members: Other Household Members Other:: longterm Housing: Intermediate Are you a primary pet care associate to a significant other at home: No Unable to assess alcohol history related to: Unknown Alcohol intake: former Comment: pt sleeping at this time Patient Tobacco Use Status: Never used Tobacco e-Cigarette/Vaping Use: Never Used Advance Directives Date on File: 12/20/21 service: No Current occupational status: unemployed Meds Allergies Allergy/AdvReac Type Severity Reaction Status Date / Time Egg Derived Allergy Unknown Verified 06/02/24 15:52 Active Medications: Current Medications Alteplase, Recombinant (Alteplase Cath Clear 2 Mg/2 Ml Vial) 3.6 mg INTRACATH ONCE PRN PRN Reason: poor bfr with hemodialysis tx Amlodipine Besylate (Amlodipine Besylate 10 Mg Tablet) 10 mg PO DAILY [facility]; Protocol Last Admin: 06/05/24 07:42 Dose: 10 mg Atorvastatin Calcium (Atorvastatin Calcium 80 Mg Tablet) 80 mg PO DAILY [facility] Last Admin: 06/05/24 07:42 Dose: 80 mg Calcium Carbonate (Calcium Carbonate 750 Mg Tab.Chew) 750 mg PO Q4H PRN PRN Reason: Heartburn Dextrose (Dextrose 50 % 25 Gm/50 Ml Syringe) 25 gm IVPUSH Q15M PRN; Protocol PRN Reason: per Hypoglycemia Standing Ord. Last Admin: 06/04/24 04:34 Dose: 25 gm Epoetin Wesley-epbx (Epoetin Wesley-Epbx 10,000 Unit/Ml Vial) 10,000 unit SUBCUT MOWEFR@1645 [facility] Last Admin: 06/03/24 16:52 Dose: 10,000 unit Ferrous Sulfate (Ferrous Sulfate 324 Mg Tablet.Dr) 325 mg PO DAILY [facility] Last Admin: 06/05/24 07:41 Dose: 325 mg Folic Acid (Folic Acid 1 Mg Tablet) 1 mg PO DAILY [facility] Last Admin: 06/05/24 07:42 Dose: 1 mg Furosemide (Furosemide 40 Mg Tablet) 80 mg PO BID [facility]; Protocol Last Admin: 06/05/24 07:42 Dose: 80 mg Gabapentin (Gabapentin 300 Mg Capsule) 300 mg PO MOWEFR@1800 [facility] Last Admin: 06/03/24 17:19 Dose: 300 mg Gabapentin (Gabapentin 100 Mg Capsule) 200 mg PO DAILY [facility] Last Admin: 06/05/24 07:41 Dose: 200 mg Glucose (Glucose Gel 15 Gm Gel..Gram.) 15 gm PO Q15M PRN; Protocol PRN Reason: per Hypoglycemia Standing Ord. Hydromorphone HCl (Hydromorphone Hcl 1 Mg/Ml Syringe) 1 mg IVPUSH Q3H PRN; Protocol PRN Reason: Pain, Severe (Pain Scale 7-10) Last Admin: 06/05/24 07:57 Dose: 1 mg Acetaminophen (Ofirmev) 1,000 mg in 100 mls @ 400 mls/hr IV Q6H [facility] Last Infusion: 06/05/24 04:26 Dose: Infused Linezolid (Zyvox/D5w) 600 mg in 300 mls @ 300 mls/hr IV Q12H [facility] Last Infusion: 06/05/24 03:21 Dose: Infused Sodium Thiosulfate 12.5 gm/ (Sodium Chloride) 200 mls @ 400 mls/hr IV Q30M [facility] Stop: 06/05/24 18:59 Dextrose/Lactated Ringer's (D5lr) 1,000 mls @ 100 mls/hr IVCONT .Q10H [facility] Last Admin: 06/05/24 01:26 Dose: 100 mls/hr Insulin Human Lispro (Insulin Lispro 100 Unit/Ml 3 Ml Vial) 0 unit SUBCUT QIDACHS [facility]; Protocol Last Admin: 06/05/24 07:37 Dose: Not Given Levetiracetam (Levetiracetam 500 Mg Tablet) 500 mg PO MOWEFR@1800 [facility] Last Admin: 06/03/24 17:19 Dose: 500 mg Loperamide HCl (Loperamide Hcl 2 Mg Capsule) 2 mg PO Q4H PRN PRN Reason: diarrhoea Lorazepam (Lorazepam 0.5 Mg Tablet) 0.5 mg PO DAILY PRN PRN Reason: anxiety Losartan Potassium (Losartan Potassium 50 Mg Tablet) 50 mg PO BID [facility]; Protocol Last Admin: 06/05/24 07:41 Dose: 50 mg Magnesium Hydroxide (Milk Of Magnesia 30 Ml Oral.Susp) 30 ml PO DAILY PRN PRN Reason: Constipation Melatonin (Melatonin 3 Mg Tablet) 6 mg PO BEDTIME PRN PRN Reason: Insomnia Meropenem (Meropenem 1 Gm Vial) 1 gm IVPUSH Q24H [facility] Last Admin: 06/04/24 22:47 Dose: 1 gm Omeprazole (Omeprazole 40 Mg Capsule.Dr) 40 mg PO BID@0630,1630 [facility] Last Admin: 06/05/24 05:43 Dose: Not Given Ondansetron HCl (Ondansetron Hcl 4 Mg/2 Ml Vial) 4 mg IVPUSH Q8H PRN PRN Reason: Nausea and Vomiting Oxycodone HCl (Oxycodone Hcl Immed Release 5 Mg Tablet) 10 mg PO Q4H PRN PRN Reason: Pain, Severe (Pain Scale 7-10) Last Admin: 06/05/24 07:41 Dose: 10 mg Oxycodone HCl (Oxycodone Hcl Immed Release 5 Mg Tablet) 5 mg PO Q4H PRN PRN Reason: Pain, Moderate(Pain Scale 4-6) Phenytoin Sodium (Phenytoin Sodium Extended 100 Mg Capsule) 100 mg PO TID [facility] Last Admin: 06/05/24 07:42 Dose: 100 mg Sertraline HCl (Sertraline Hcl 50 Mg Tablet) 50 mg PO DAILY [facility] Last Admin: 06/05/24 07:41 Dose: 50 mg Sodium Chloride (0.9 % Sodium Chloride Flush 3 Ml Syringe) 3 ml IVFLUSH QSHIFT [facility] Last Admin: 06/05/24 07:37 Dose: Not Given Sodium Hypochlorite (Sodium Hypochlorite 0.5% 473 Ml Solution) 1 appl TOPICAL DAILY [facility] Last Admin: 06/05/24 08:39 Dose: Not Given Trazodone HCl (Trazodone Hcl 100 Mg Tablet) 100 mg PO BEDTIME [facility] Last Admin: 06/04/24 23:03 Dose: Not Given Valproic Acid (Valproic Acid 250 Mg Capsule) 500 mg PO BID [facility] Last Admin: 06/05/24 07:42 Dose: 500 mg Vitamin D (Cholecalciferol (Vitamin D3) 25 Mcg Tablet) 50 mcg PO DAILY [facility] Last Admin: 06/05/24 07:42 Dose: 50 mcg Home Medications ?Medication ?Instructions ?Recorded ?Confirmed ?Last Taken ?Type blood sugar diagnostic (FreeStyle 03/28/20 06/02/24 Unknown History Lite Strips) blood-glucose meter (FreeStyle 03/28/20 06/02/24 Unknown History Floyd Lite kit) lancets 28 gauge (FreeStyle 03/28/20 06/02/24 Unknown History Lancets) omeprazole 40 mg capsule,delayed 40 mg PO BID@0630,1630 10/02/21 06/02/24 03/21/24 History release blood pressure test kit-large #1 ea 10/12/21 06/02/24 Unknown History atorvastatin 80 mg tablet 80 mg PO DAILY 12/20/21 06/02/24 03/21/24 History nebulizers 01/20/22 06/02/24 Unknown History amlodipine 10 mg tablet 10 mg PO DAILY 05/29/22 06/02/24 03/21/24 History lancets 33 gauge (TRUEplus Lancets) #100 ea 06/07/22 06/02/24 Unknown History ferrous gluconate 324 mg (38 mg 324 mg PO DAILY 11/24/22 06/02/24 03/21/24 History iron) tablet acetaminophen 650 mg 650 mg PO Q8H PRN mild pain 03/22/24 06/02/24 Unknown History tablet,extended release diclofenac sodium 1 % topical gel 2 g topical BEDTIME PRN Pain 03/22/24 06/02/24 03/21/24 History losartan 100 mg tablet 100 mg PO BID 03/22/24 06/02/24 03/21/24 History valproic acid 250 mg capsule 500 mg PO BID 03/22/24 06/02/24 03/21/24 History furosemide 40 mg tablet 80 mg PO BID 05/04/24 06/02/24 Unknown History gabapentin 100 mg capsule 200 mg PO DAILY 05/04/24 06/02/24 Unknown History gabapentin 300 mg capsule 300 mg PO MOWEFR@1800 05/04/24 06/02/24 Unknown History levetiracetam 500 mg tablet 500 mg PO MOWEFR@1800 05/04/24 06/02/24 Unknown History lorazepam 0.5 mg tablet 0.5 mg PO DAILY PRN anxiety 05/04/24 06/02/24 Unknown History sertraline 50 mg tablet 50 mg PO DAILY 05/04/24 06/02/24 Unknown History cholecalciferol (vitamin D3) 25 50 mcg PO DAILY 05/27/24 06/02/24 Unknown History mcg (1,000 unit) tablet (Vitamin D3) dextrose 40 % oral gel (Glucose 10 g PO Q15M PRN low blood sugar 05/27/24 06/02/24 Unknown History Gel) epoetin wesley-epbx 10,000 unit/mL 10,000 unit subcut MOWEFR@1645 05/27/24 06/02/24 05/20/24 History injection solution (Retacrit) glucagon 1 mg solution for 1 mg subcut Q20M PRN low blood 05/27/24 06/02/24 Unknown History injection (Glucagon Emergency Kit) sugar trazodone 50 mg tablet 100 mg PO BEDTIME 05/27/24 06/02/24 Unknown History vancomycin 500 mg intravenous 500 mg PO MOWEFR@1645 05/27/24 06/02/24 Unknown History solution oxycodone 5 mg tablet 5 - 10 mg PO Q4H PRN Pain, Severe 06/02/24 06/02/24 Unknown History (Pain Scale 7-10) Physical Exam Vital Signs: Vital Signs: Last Vital Signs Temp 99.3 F 06/05/24 07:53 Pulse 78 06/05/24 07:53 Resp 18 06/05/24 07:53 BP 134/60 06/05/24 07:53 Pulse Ox 96 06/05/24 07:53 O2 Del Method Room Air 06/05/24 07:53 BMI result Body Mass Index 37.5 Const: Other: Very frail looking, not communicative verbally, drowsy General: ill appearing Resp: Other: Mildly short of breath Cardio: Rate: regular rate GI: Palpation (GI): Soft to palpation Back/Spine/Pelvis: Other: Right hip with large ulcer at least 15 cm in widest dimension, with patches of thick eschar and fibrinous exudates Extrem: Other: Right heel ulcer, about 8 cm diameter with thick eschar, dry, exposed calcaneus Open wound on the left foot at the old 5th toe amputation site, dressings dry Results Labs 06/05/24 09:03 06/05/24 09:03 Labs: Abnormal lab results 06/04/24 Range/Units 11:54 POC Glucose 133 H (60-115) mg/dL All other labs normal. Assessment and Plan (1) Pressure ulcer of right hip: Status: Acute She has this open wound with thick eschar the right hip. I sharply debrided this has bedside using fine scissors. I applied wet-to-dry dressings thereafter. She was not mobile at all therefore at risk for nonhealing of this eschar and formation other new eschars. She was in poor overall health. I had a long discussion with her family at bedside, Pankaj. I explained to her that to aggressively debride this ulcer, she will need to be under anesthesia. She does not want the patient to undergo any anesthesia at all. She says that she is planning to do comfort measures/hospice. I told her that we will have the director case management speak to her about this. (2) Eschar of heel: Status: Acute This is unlikely to heal in view of the exposed calcaneus with eschar. The family does not want her to undergo any amputation or any other surgical intervention. I have discussed the above with the hospitalist service Procedures Date of Service Date of Service: 06/05/24
[2024-06-05 09:20] LABS: Basophils Absolute Auto 0.1 X10*3/uL (0.0-0.2); Basophils Percent Auto 0.5 % (0-2); Eosinophils Absolute Auto 0.2 X10*3/uL (0.0-0.4); Eosinophils Percent Auto 2.3 % (0-4); Hematocrit 21.3 % (37.0-47.0); Imm Gran Abs Auto 0.22 X10*3/uL (0.00-0.03); Imm Gran Pct Auto 2.1 % (0.0-0.4); Lymphocytes Percent Auto 9.8 % (20-40); MANUAL DIFF FLAG SCAN; Mean Corpuscular HGB Conc 32.4 g/dl (31.0-35.0); Mean Corpuscular Hemoglobin 29.2 pg (27.0-33.0); Mean Corpuscular Volume 90.3 fL (80.0-98.0); Monocytes Absolute Auto 0.6 X10*3/uL (0.1-1.2); Monocytes Percent Auto 6.1 % (2-11); Neutrophils Absolute Auto 8.1 x10*3/uL (2.0-8.3); Neutrophils Percent Auto 79.2 % (45-73); PLT CLUMP 1; Red Blood Count 2.36 X10*6/uL (4.20-5.50); Red Cell Distribution Width 17.3 % (11.0-16.0); SCAN SMEAR FLAG 1
[2024-06-05 09:25] LABS: Vancomycin Random 19.6 mcg/mL (15-20)
[2024-06-05 09:27] LABS: Calcium 7.5 mg/dL (8.4-10.2); Phosphorus 3.2 mg/dL (2.7-4.5)
[2024-06-05 09:31] LABS: Blood Urea Nitrogen 26 mg/dL (9-16); Calcium 7.5 mg/dL (8.4-10.2); Creatinine Clr Calc Pharmacy 18.4; Estimated Glomerular Filt Rate 13; Glucose Random 108 mg/dL (60-115)
[2024-06-05 09:38] LABS: Anion Gap 13 (12-20); Carbon Dioxide 26 mmol/L (22-29); Chloride 102 mmol/L (96-108); Potassium 3.2 mmol/L (3.3-5.1); Sodium 138 mmol/L (135-145)
--- NOTE | 2024-06-05 10:03 | MHC.CLN ---
F/U DIET=NPO SINCE 06/02. PATIENT WITH ESRD ON HEMODIALYSIS. MULTIPLE WOUNDS (SEE WOUND SAMPLE STITCHER 06/04). MAY REQUIRE ARTIFICIAL NUTRITION/HYDRATION IF UNABLE TO ACCEPT ADEQUATE PO. FOLLOW FOR DIET ADVANCEMENT, PO INTAKE AND SKIN INTEGRITY.
[2024-06-05 10:11] LABS: White Blood Count 10.3 X10*3/uL (4.8-10.8)
[2024-06-05 10:12] LABS: SLIDE REVIEW VERIFIED
[2024-06-05 10:50] LABS: Parathyroid Hormone Intact 81.2 pg/mL (8.7-77.1)
[2024-06-05 11:34] LABS: Glucose, Whole Blood 90 mg/dL (60-115)
[2024-06-05 11:48] VITALS: BP 142/65; PULSE 104; RESP 18; TEMP 37.3; O2SAT 95
[2024-06-05] MEDS: Linezolid/D5W 600 MG/300 ML PIGGYBACK 300 MG IV (11:49)
--- NOTE | 2024-06-05 11:56 | CONS_ITS ---
DATE OF SERVICE: REASON FOR CONSULTATION: Consult requested by the ER team and the Medical team to evaluate and help in management of patient with ESRD, on hemodialysis, who is presented with altered mental status. HISTORY OF PRESENT ILLNESS: Patient is a 68-year-old female with past medical history of ESRD, on hemodialysis, Monday, Monday, Monday; history of insulin-dependent diabetes mellitus; chronic skin ulcers with calciphylaxis, who was recently discharged to [facility] the day before admission. She had osteomyelitis as well. She was on IV vancomycin for a month according to the information available to me. The EMS brought the patient with altered mental status and fever. She was also hypoxemic with oxygen saturation 80%. She was not able to give any history and she is in isolation. Most of the history was obtained from the patient's medical record. She did have apparently diarrhea malodorous. I arranged for hemodialysis for the patient yesterday and she had hemodialysis. She also received IV LR and cefepime. REVIEW OF SYSTEMS: Unobtainable due to her mental status. PAST MEDICAL HISTORY: History of pressure ulcers in the hip; ESRD on hemodialysis; thrombocytopenia; history of falls; anemia of chronic disease; acute subdural hematoma; generalized seizures; history of CHF; calciphylaxis, recent diagnosis; pneumonia; asthma; pulmonary nodule; and hyperlipidemia. She also has history of COVID-19 infection in the past, renal stones, depression, gastritis, and type 2 diabetes mellitus. FAMILY HISTORY: Includes coronary artery disease in the father. Brother had lung cancer and sister had kidney stones. PAST SURGICAL HISTORY: Includes history of amputation of fifth toe on the left foot, history of lithotripsy, ureteroscopy, cystoscopy, history of ureteral stent placement, cholecystectomy, and hernia repair. PERSONAL AND SOCIAL HISTORY: Patient is presently in a penitentiary. Has a supportive family. Does not smoke, use drugs. Does not drink alcohol. ALLERGIES: PATIENT HAS ALLERGIES TO DERIVATIVES. MEDICATIONS: As an outpatient were reviewed. PHYSICAL EXAMINATION: GENERAL: Patient is resting in the bed, in isolation and confused and chronically ill-appearing. VITAL SIGNS: Blood pressure was 109/53, pulse 97, afebrile. HEENT: Pupils equal, round, and reactive bilaterally to light. No jugular venous distention is noted. NECK: Supple. CARDIOVASCULAR SYSTEM: S1, S2 without rub. There is right upper chest PermCath in place. RESPIRATORY SYSTEM: Mildly decreased in the bases. ABDOMEN: Obese, soft. Bowel sounds normal. EXTREMITIES: Showed no edema, but there were multiple dressed ulcers. LABORATORY DATA: Labs done recently. WBCs were 10.9, hemoglobin 7.2, hematocrit 22.5. MCV and MCH were normal. Platelet count was 34. Sodium was 138, potassium 3.3, chloride 103, CO2 of 22, BUN 33, creatinine 4.12, estimated GFR was 11, glucose 147, calcium 7.4. Random vancomycin level was 25.2. C diff was negative. IMPRESSION: 1. A 68-year-old female with end-stage renal disease, on hemodialysis. 2. Altered mental status due to multifactorial reasons including sepsis. 3. Left foot osteomyelitis. 4. Diarrhea with negative Clostridium difficile. 5. Anemia, which is multifactorial/acute on chronic. 6. Calciphylaxis. 7. Hypertension. 8. Thrombocytopenia with question of heparin-induced thrombocytopenia. RECOMMENDATION: The patient usually gets dialyzed on Monday, Monday, Monday. The patient did get dialyzed yesterday and I have arranged hemodialysis for the patient tomorrow and will continue Monday, Monday, Monday schedule. We will try to remove fluid as tolerated. We are using the PermCath and given question of thrombocytopenia and I will order cath flow/tPA instead of heparin for the PermCath to prevent clotting. We will check iron stores and give her erythropoietin in the hospital. Continue with antibiotic as per Medical team. The patient is on meropenem and linezolid. The patient is also on erythropoietin 10,000 units on Monday, Monday, Monday. Given calciphylaxis, I would discontinue the vitamin D supplementation and try to keep the phosphorus level on the low side. We will also check PTH level. The patient was getting sodium thiosulfate as an outpatient for calciphylaxis and I will give 25 g IV post dialysis on Monday, Monday, Monday. Thank you for allowing me to participate in medical management of the patient. MD JESÚS Olvera/SILVIA / [phone]
[2024-06-05 12:00] VITALS: BP 121/55; PULSE 98; RESP 18; TEMP 37.4; O2SAT 93
[2024-06-05 12:50] LABS: Hemoglobin 6.9 g/dl (12.0-16.0)
--- NOTE | 2024-06-05 12:55 | MHC.SL.SWA ---
Speech Pathologist Impression: Adequate oropharyngeal swallow coordination for sips of thins, tolerated purees adequately but was less likely to sustain PO intake. Anticipate diet can be advanced when pt more stable Risk of Aspiration Due to: Significant pain/difficulty sitting upright for extended length of time Dysphasia Diet Status: Mild oral phase dyspahgia d/t missing dentition, no observed pharyngeal phase dysphagia Liquid Consistency and Strategies for Safe Swallow: Liquid Intake Recommendation: Thin Liquid Intake Strategies: Solid Food Consistency: Dietary Recommendations: ADVANCE TO Liquid diet (THINS), straws ok, meds crushed in puree. DROP FORGE HAND to assess for advance when pt more able to participate in PO trials. Additional Modifications to Solid Foods: Oral Medication Intake: Crushed with Puree Please contact the pharmacy regarding appropriate crushable or liquid drug formulations that are available whenever modified delivery is recommended. Compensatory Strategies and Precautions to be Taken for Safe Swallow: Supervision While Eating and Drinking for Safe Swallow: PO with DROP FORGE HAND Foods to Avoid: Swallowing Recommended Treatments: Compens. Strategy Educat. Recommendation for Speech: Further Testing Needed Inpatient Speech Therapy Comment: Comment: Liquid diet, straws ok, meds crushed in puree Frequency/Duration: Date Range for Service Req: Timeline to reassess: Tank Farm Attendant Clinican/Clinical Fellow: No Supervisory Statement: I have reviewed and agree with the student/clinical fellow's documentation: N/A Speech Language Pathologist: Sierra Bauer M.S., [facility]-DROP FORGE HAND
--- NOTE | 2024-06-05 13:20 | MHC.CM.PN ---
PT S FAMILY WANTS TO TAKE PT HOME WITH HOSPUCE REFERRAL GIVEN TO MARY
[2024-06-05 15:08] VITALS: BP 143/63; PULSE 91; RESP 18; TEMP 37.2; O2SAT 94
--- NOTE | 2024-06-05 15:23 | HO.PM.IMPN ---
Subjective Subjective Date of Service: 06/05/24 Interval History: Nonverbal. Appears comfortable at present Review of Systems Unable to obtain Physical Exam Vital Signs: Vital Signs: Last Vital Signs Temp 98.9 F 06/05/24 15:08 Pulse 91 06/05/24 15:08 Resp 18 06/05/24 15:08 BP 143/63 H 06/05/24 15:08 Pulse Ox 94 06/05/24 15:08 O2 Del Method Room Air 06/05/24 15:08 BMI result Body Mass Index 37.5 Const: Other: Somnolent but arousable Resp: Other: Clear to auscultation bilaterally no rales rhonchi or wheezes Cardio: Other: No S4; positive S1-S2; no S3 murmurs rubs or gallops GI: Other: Soft nontender nondistended normoactive bowel sounds Extrem: Other: No edema bilaterally Objective Data Active Medications Alteplase, Recombinant (Alteplase Cath Clear 2 Mg/2 Ml Vial) 3.6 mg INTRACATH ONCE PRN PRN Reason: poor bfr with hemodialysis tx Amlodipine Besylate (Amlodipine Besylate 10 Mg Tablet) 10 mg PO DAILY [facility]; Protocol Last Admin: 06/05/24 07:42 Dose: 10 mg Documented By: QUANG Atorvastatin Calcium (Atorvastatin Calcium 80 Mg Tablet) 80 mg PO DAILY [facility] Last Admin: 06/05/24 07:42 Dose: 80 mg Documented By: QUANG Calcium Carbonate (Calcium Carbonate 750 Mg Tab.Chew) 750 mg PO Q4H PRN PRN Reason: Heartburn Dextrose (Dextrose 50 % 25 Gm/50 Ml Syringe) 25 gm IVPUSH Q15M PRN; Protocol PRN Reason: per Hypoglycemia Standing Ord. Last Admin: 06/04/24 04:34 Dose: 25 gm Epoetin Wesley-epbx (Epoetin Wesley-Epbx 10,000 Unit/Ml Vial) 10,000 unit SUBCUT MOWEFR@5095 [facility] Last Admin: 06/03/24 16:52 Dose: 10,000 unit Documented By: LINDA Ferrous Sulfate (Ferrous Sulfate 324 Mg Tablet.) 325 mg PO DAILY [facility] Last Admin: 06/05/24 07:41 Dose: 325 mg Documented By: QUANG Folic Acid (Folic Acid 1 Mg Tablet) 1 mg PO DAILY [facility] Last Admin: 06/05/24 07:42 Dose: 1 mg Documented By: QUANG Furosemide (Furosemide 40 Mg Tablet) 80 mg PO BID [facility]; Protocol Last Admin: 06/05/24 07:42 Dose: 80 mg Documented By: QUANG Gabapentin (Gabapentin 300 Mg Capsule) 300 mg PO MOWEFR@1800 [facility] Last Admin: 06/03/24 17:19 Dose: 300 mg Documented By: LINDA Gabapentin (Gabapentin 100 Mg Capsule) 200 mg PO DAILY [facility] Last Admin: 06/05/24 07:41 Dose: 200 mg Documented By: QUANG Glucose (Glucose Gel 15 Gm Gel..Gram.) 15 gm PO Q15M PRN; Protocol PRN Reason: per Hypoglycemia Standing Ord. Hydromorphone HCl (Hydromorphone Hcl 1 Mg/Ml Syringe) 1 mg IVPUSH Q3H PRN; Protocol PRN Reason: Pain, Severe (Pain Scale 7-10) Last Admin: 06/05/24 14:47 Dose: 1 mg Documented By: LINDA Acetaminophen (Ofirmev) 1,000 mg in 100 mls @ 400 mls/hr IV Q6H [facility] Last Infusion: 06/05/24 12:20 Dose: Infused Documented By: LINDA Linezolid (Zyvox/D5w) 600 mg in 300 mls @ 300 mls/hr IV Q12H [facility] Last Infusion: 06/05/24 13:00 Dose: Infused Documented By: LINDA Sodium Thiosulfate 12.5 gm/ (Sodium Chloride) 200 mls @ 400 mls/hr IV Q30M [facility] Stop: 06/05/24 18:59 Dextrose/Lactated Ringer's (D5lr) 1,000 mls @ 100 mls/hr IVCONT .Q10H [facility] Last Admin: 06/05/24 11:46 Dose: 100 mls/hr Documented By: LINDA Insulin Human Lispro (Insulin Lispro 100 Unit/Ml 3 Ml Vial) 0 unit SUBCUT QIDACHS [facility]; Protocol Last Admin: 06/05/24 07:18 Dose: Not Given Documented By: LINDA Non-Admin Reason: No Insulin Coverage Levetiracetam (Levetiracetam 500 Mg Tablet) 500 mg PO MOWEFR@1800 [facility] Last Admin: 06/03/24 17:19 Dose: 500 mg Documented By: LINDA Loperamide HCl (Loperamide Hcl 2 Mg Capsule) 2 mg PO Q4H PRN PRN Reason: diarrhoea Lorazepam (Lorazepam 0.5 Mg Tablet) 0.5 mg PO DAILY PRN PRN Reason: anxiety Losartan Potassium (Losartan Potassium 50 Mg Tablet) 50 mg PO BID [facility]; Protocol Last Admin: 06/05/24 07:41 Dose: 50 mg Documented By: QUANG Magnesium Hydroxide (Milk Of Magnesia 30 Ml Oral.Susp) 30 ml PO DAILY PRN PRN Reason: Constipation Melatonin (Melatonin 3 Mg Tablet) 6 mg PO BEDTIME PRN PRN Reason: Insomnia Meropenem (Meropenem 1 Gm Vial) 1 gm IVPUSH Q24H [facility] Last Admin: 06/04/24 22:47 Dose: 1 gm Documented By: JORGE Omeprazole (Omeprazole 40 Mg Capsule.Dr) 40 mg PO BID@0630,1630 [facility] Last Admin: 06/05/24 05:43 Dose: Not Given Documented By: JORGE Non-Admin Reason: NPO Ondansetron HCl (Ondansetron Hcl 4 Mg/2 Ml Vial) 4 mg IVPUSH Q8H PRN PRN Reason: Nausea and Vomiting Oxycodone HCl (Oxycodone Hcl Immed Release 5 Mg Tablet) 10 mg PO Q4H PRN PRN Reason: Pain, Severe (Pain Scale 7-10) Last Admin: 06/05/24 11:16 Dose: 10 mg Documented By: QUANG Oxycodone HCl (Oxycodone Hcl Immed Release 5 Mg Tablet) 5 mg PO Q4H PRN PRN Reason: Pain, Moderate(Pain Scale 4-6) Phenytoin Sodium (Phenytoin Sodium Extended 100 Mg Capsule) 100 mg PO TID [facility] Last Admin: 06/05/24 14:44 Dose: 100 mg Documented By: LINDA Sertraline HCl (Sertraline Hcl 50 Mg Tablet) 50 mg PO DAILY [facility] Last Admin: 06/05/24 07:41 Dose: 50 mg Documented By: QUANG Sodium Chloride (0.9 % Sodium Chloride Flush 3 Ml Syringe) 3 ml IVFLUSH QSHIFT [facility] Last Admin: 06/05/24 07:37 Dose: Not Given Documented By: QUANG Non-Admin Reason: Previously Administered Sodium Hypochlorite (Sodium Hypochlorite 0.5% 473 Ml Solution) 1 appl TOPICAL DAILY [facility] Last Admin: 06/05/24 08:39 Dose: Not Given Documented By: LINDA Non-Admin Reason: Off unit: Dialysis Trazodone HCl (Trazodone Hcl 100 Mg Tablet) 100 mg PO BEDTIME [facility] Last Admin: 06/04/24 23:03 Dose: Not Given Documented By: JORGE Non-Admin Reason: NPO Valproic Acid (Valproic Acid 250 Mg Capsule) 500 mg PO BID [facility] Last Admin: 06/05/24 07:42 Dose: 500 mg Documented By: QUANG Vitamin D (Cholecalciferol (Vitamin D3) 25 Mcg Tablet) 50 mcg PO DAILY [facility] Last Admin: 06/05/24 07:42 Dose: 50 mcg Documented By: QUANG Labs 06/05/24 09:03 06/05/24 09:03 Labs: Laboratory Results - last 24 hr 06/04/24 06/04/24 06/05/24 16:05 19:14 03:36 MCV MCH MCHC RDW Plt Count MPV Immature Gran % (Auto) Neut % (Auto) Lymph % (Auto) Glynn % (Auto) Eos % (Auto) Baso % (Auto) Lymph # (Auto) Glynn # (Auto) Eos # (Auto) Baso # (Auto) Abs Immat Gran (auto) Absolute Neuts (auto) Absolute Nucleated RBC Nucleated RBC % (auto) Smear Tech's Comments Anion Gap Estim Creat Clear Calc Estimated GFR POC Glucose 102 103 104 Random Glucose Calcium Phosphorus PTH Intact Random Vancomycin 06/05/24 06/05/24 06/05/24 07:05 09:03 09:03 MCV 90.3 MCH 29.2 MCHC 32.4 RDW 17.3 H Plt Count Not Reportable MPV Not Reportable Immature Gran % (Auto) 2.1 H Neut % (Auto) 79.2 H Lymph % (Auto) 9.8 L Glynn % (Auto) 6.1 Eos % (Auto) 2.3 Baso % (Auto) 0.5 Lymph # (Auto) 1.0 L Glynn # (Auto) 0.6 Eos # (Auto) 0.2 Baso # (Auto) 0.1 Abs Immat Gran (auto) 0.22 H Absolute Neuts (auto) 8.1 Absolute Nucleated RBC 0.000 Nucleated RBC % (auto) 0.0 Smear Tech's Comments VERIFIED Anion Gap 13 Estim Creat Clear Calc 18.4 Estimated GFR 13 POC Glucose 114 Random Glucose 108 Calcium 7.5 L 7.5 L Phosphorus 3.2 PTH Intact 81.2 H Random Vancomycin 19.6 06/05/24 11:29 MCV MCH MCHC RDW Plt Count MPV Immature Gran % (Auto) Neut % (Auto) Lymph % (Auto) Glynn % (Auto) Eos % (Auto) Baso % (Auto) Lymph # (Auto) Glynn # (Auto) Eos # (Auto) Baso # (Auto) Abs Immat Gran (auto) Absolute Neuts (auto) Absolute Nucleated RBC Nucleated RBC % (auto) Smear Tech's Comments Anion Gap Estim Creat Clear Calc Estimated GFR POC Glucose 90 Random Glucose Calcium Phosphorus PTH Intact Random Vancomycin Microbiology Microbiology Results: Microbiology 06/03/24 10:52 Blood Culture - Preliminary Blood - Central Line No growth after 48 hours. 06/03/24 05:45 Blood Culture - Preliminary Blood - Venous No growth after 48 hours. 06/02/24 16:10 Blood Culture - Preliminary Blood - Venous No growth after 48 hours. 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 -linezolid and meropenem(3) -follow renals/divalents/vanco daily... If appropriate -we will discuss with family; discussed with Dr. Vines and hospice has already been consulted 2.Acute-chronic anemia, likely secondary to ESRD -we will transfuse if appropriate pending family's follow-through with hospice -Procrit, iron, omeprazole -follow CBC 3.Calciphylaxis adjust as indicated -increased Dilaudid given poor response to lesser dose...adjust as indicated - will consult Wound Care and Gen Surgery again. From last admission: - s/p sharp excisional debridement of R heel ulcer 05/28; unfortunately, may eventually need BKA given exposed calcaneus - s/p sharp excisional debridement of full thickness of skin and part of subcutaneous layer done with scissors; area about 10 x 8 cm debrided - clean wound to L foot at amputation site - wound care recommendations: Skin Folds - Cleanse with PH balance wipes, pat dry with soft cloth.? Apply antifungal power to assist with moisture management.? Be sure to dust of excess powder to prevent caking on skin and in folds. Apply per provider orders. Tuck Interdry AG Sheet into skin fold to wick and translocate moisture away from skin fold.? Be sure to leave at least 2 inch of fabric exposed outside of skin fold.? Change after 5 days or when soiled. Left Foot - Elevate heels off of bed surface with pillows. Cleanse and irrigate with NS, Pat dry.? Apply barrier to periwound, lightly pack with VentureHire, be sure to leave a wick to easy removal.? Cover with gauze and wrap dressing.? Change every other day. Perineal, buttock and Left Ischium - Off Load Pressure with Q2 hr turns and use of pillows - Cleanse with PH balance spray or wipes, pat dry. ?Apply thin layer of Triad to wound bed - only pat and dab no scrub and rub when soiling occurs. Reapply thin layer PRN after each episode of incontinence. Right Heel, Bilateral Thighs and left Calf - Off Load Pressure with Q2 hr turns and use of pillows - Cleanse with NS moist gauze, pat dry. ?Apply thin layer of Triad to periwound. Apply Dakins moist gauze to entire wound bed, cover with dry gauze, ABD pad and gauze wrap or tape change Daily. 3.ESRD - continued HD MWF -follow renals/divalents 4.Diabetes type II -acceptable control on current therapies -lispro correctional scale -adjust as indicated 5.Seizure disorder - continue levetiracetam, valproate, phenytoin -switch to IV if fails speech eval 6. Hypertension -acceptable control on current therapies -adjust as indicated SCDs, no heparin given anemia Dnr/DNI... Have not gotten in touch with daughter thus far to actually verify [employer] status. We will need to be verified before order stopped. In my clinical judgment, the patient requires continued inpatient hospitalization for the following reasons: IV ABX, sepsis, transfusion, wound care Quality Stroke Does the patient have a stroke diagnosis?: No VTE Prior VTE?: No VTE Risk Level:: Medical - moderate - high VTE Device Contraindication: N/A - Device Ordered VTE Drug Contraindication: Treatment Not Indicated
--- NOTE | 2024-06-05 15:40 | PM.EVENT ---
Event Note Date of Service: 06/05/24 Event Note: Attempted to call jessica duarte with science interpreter. Unable to contact at this time. Time Spent With Patient Time: Total time managing care of this patient today ____ minutes.
[2024-06-05 16:12] LABS: Glucose, Whole Blood 112 mg/dL (60-115)
[2024-06-05] MEDS: Gabapentin 300 MG CAPSULE PO (17:54)
[2024-06-05] MEDS: levETIRAcetam 500 MG TABLET PO (17:54)
[2024-06-05] MEDS: Omeprazole 40 MG CAPSULE.DR PO (17:54)
--- NOTE | 2024-06-05 18:47 | P.CDIM_ITS ---
PROVIDER RESPONSE TEXT: To clarify, the appropriate diagnosis supported by the clinical indicators: Deep tissue injury left Ischium: possiblr QUERY TEXT: PHYSICIAN'S DOCUMENTATION REQUEST Date of Query: 06/05/2024 08:26 AM EDT Patient Name: Lori Land Admit Date: 06/02/2024 Dear Quinn Hanna DO, A review of the medical record indicates additional documentation may be needed. Please review below and update the documentation accordingly. Clinical Indicators: Wound care notes dated 06/04/24 - Deep tissue injury left Ischium Adherent yellow slough to wound bed. Triad Based on the above, could you please provide further information regarding the ulcer/wound/injury: Deep tissue injury left Ischium possible, probable, suspected, cannot rule out etc. Other specifics to the Ischium Other (explain) Clinically unable to determine (explain) Thank you, Benita Wilkins, CCS, CDIS Use of terms such as suspected, likely, concern for, or probable (associated with a specific diagnosi s that is being evaluated, monitored, or treated as if it exists) are acceptable and can be coded in the inpatient se tting, when documented at the time of discharge. Please use your independent medical judgment in providing your response. THIS QUERY IS PART OF THE PERMANENT MEDICAL RECORD
--- NOTE | 2024-06-05 18:47 | P.CDIM_ITS ---
PROVIDER RESPONSE TEXT: To clarify, the appropriate diagnosis supported by the clinical indicators: Subacute osteomyelitis QUERY TEXT: PHYSICIAN'S DOCUMENTATION REQUEST Date of Query: 06/05/2024 07:46 AM EDT Patient Name: Lori Land Admit Date: 06/02/2024 Dear Quinn Hanna DO, A review of the medical record indicates additional documentation may be needed. Please review below and update the documentation accordingly Clinical Indicators: Progress note dated 06/04/24 - Left foot osteomyelitis AMS Vancomycin Patient with Sepsis and acute metabolic encephalopathy secondary to osteomyelitis and possible second delta infection requiring IV Antibiotics. Patient was at short term rehab after recent admission for L foot osteomyelitis as well as anemia. Based on the above, please clarify in the Progress Notes further specificity regarding the acuity of the noted Osteomyelitis within the written Plan: Acute osteomyelitis Subacute osteomyelitis Chronic osteomyelitis Chronic multifocal osteomyelitis Other (explain) Clinically unable to determine (explain) Thank you, Benita Wilkins, CCS, CDIS Use of terms such as suspected, likely, concern for, or probable (associated with a specific diagnosi s that is being evaluated, monitored, or treated as if it exists) are acceptable and can be coded in the inpatient se tting, when documented at the time of discharge. Please use your independent medical judgment in providing your response. THIS QUERY IS PART OF THE PERMANENT MEDICAL RECORD
--- NOTE | 2024-06-05 18:50 | P.EN_ITS ---
Event Note Date of Service: 06/05/24 Event Note: Discussion with patient's healthcare proxy (daughter) with embedded software development engineer. Wishes to take mom home on hospice. Patient made comfort care this evening and started on a morphine drip due to increased pain Time Spent With Patient Time: Total time managing care of this patient today ____ minutes.
[2024-06-05] MEDS: Morphine Sulfate/NS 100 MG/100 ML PLAST..BAG IVCONT (20:31)
[2024-06-06 03:51] VITALS: RESP 20
[2024-06-06] MEDS: Dextrose 5 % and Lactated Ring 1,000 ML 100 ML IVCONT (07:59)
[2024-06-06 10:16] VITALS: RESP 8
--- NOTE | 2024-06-06 10:40 | MHC.CM.PN ---
[facility] and [facility] updated with plan of care. Hospitalist has MOLST for review with daughter. [facility] is asking for confirmation that HD will DC. Case management following and updating as appropriate.
--- NOTE | 2024-06-06 11:29 | MHC.SLORD ---
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
--- NOTE | 2024-06-06 12:10 | MHC.CM.PN ---
Fareed Renteria updated with progress of patient care.
--- NOTE | 2024-06-06 16:08 | P.PNIM_ITS ---
Subjective Subjective Date of Service: 06/06/24 Interval History: appears comfortable on morphine drip Review of Systems Review of Systems: Yes Unobtainable due to mental status Physical Exam 2 Vital Signs: Vital Signs: Last Vital Signs Temp 98.9 F 06/05/24 15:08 Pulse 91 06/05/24 15:08 Resp 8 L 06/06/24 10:16 BP 143/63 H 06/05/24 15:08 Pulse Ox 94 06/05/24 15:08 O2 Del Method Room Air 06/05/24 15:08 BMI result Body Mass Index 37.5 Gen: chronically ill-appearing, weak/frail HEENT: sclera anicteric, moist mucus membranes Neck: supple Lungs: clear to auscultation bilaterally, RIJ HD catheter Heart: regular rate and rhythm, no murmurs Abd: soft, non-tender, non-distended, obese Ext: no edema Skin: multiple pressure ulcers with eschar on R hip, L calf, L 5th toe amputation site, R heel with exposed bone Neuro: somnolent Objective Data Active Medications Morphine Sulfate (Morphine Sulfate/Ns) 100 mg in 100 mls @ 0 mls/hr IVCONT .Q0M [facility]; Protocol Last Infusion: 06/06/24 00:28 Dose: 5 mg/hr, 5 mls/hr Documented By: MCTR Morphine Sulfate (Morphine Sulfate Oral Kassidy 10 Mg/5 Ml Solution) 5 mg PO Q2H PRN PRN Reason: pain, dyspnea Labs 06/05/24 09:03 06/05/24 09:03 Labs: Laboratory Results - last 24 hr 06/05/24 16:08 POC Glucose 112 Microbiology Microbiology Results: Microbiology 06/03/24 10:52 Blood Culture - Preliminary Blood - Central Line No growth after 48 hours. 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 Given poor prognosis with nonhealing and exquisitely painful wounds from calciphylaxis with exposred calcaneus requiring an eventual BKA and in light of severe transfusion-dependent anemia and ESRD on HD, goals of care have been reviewed and the patient has been transitioned to REGIONAL DIRECTOR OF ADMISSIONS status with plan for home hospice. Continue morphine drip for now with transition to PO morphine solution and add prn IV diazepam and scopolamine patch. Discussed with daughter/HCP Amarillis and goal is home with hospice. MOLST reviewed and filled out. Total time managing care of this patient today: 35 minutes. Quality Stroke Does the patient have a stroke diagnosis?: No VTE Prior VTE?: No VTE Risk Level:: Medical - moderate - high VTE Device Contraindication: N/A - Device Ordered VTE Drug Contraindication: Treatment Not Indicated
--- NOTE | 2024-06-06 16:17 | MHC.CM.PN ---
COMPLETED MOLST UPLOADED IN [facility] AND ORIGINAL PLACED IN CHART. [facility] MADE AWARE THAT DAUGHTER DOES NOT WISH TO CONTINUE WITH HD TREATMENT. CARLOS ALBERTO BROWNE NOT YET AWARE OF DECISION. IF DECISION REMAINS SUCH FOR 06/07/24, CM TO INFORM CARLOS ALBERTO BROWNE THROUGH [facility] REFERRAL COMMUNICATIONS.
[2024-06-06] MEDS: Morphine Sulfate/NS 100 MG/100 ML PLAST..BAG IVCONT (18:02)
[2024-06-06] MEDS: Scopolamine 1.5 MG PATCH.TD.3 EAR-BEHIND (18:09)
[2024-06-06 20:00] VITALS: RESP 10
[2024-06-07 03:39] VITALS: RESP 14
--- NOTE | 2024-06-07 10:29 | HO.PM.IMPN ---
Subjective Subjective Date of Service: 06/07/24 Interval History: Appears comfortable on morphine drip. Review of Systems Unable to obtain Physical Exam Vital Signs: Vital Signs: Last Vital Signs Temp 98.9 F 06/05/24 15:08 Pulse 91 06/05/24 15:08 Resp 14 06/07/24 03:39 BP 143/63 H 06/05/24 15:08 Pulse Ox 94 06/05/24 15:08 O2 Del Method Room Air 06/05/24 15:08 BMI result Body Mass Index 37.5 Const: Other: Unresponsive on drip Resp: Other: Clear to auscultation bilaterally no rales rhonchi or wheezes Cardio: Other: No S4; positive S1-S2; no S3 murmurs rubs or gallops GI: Other: Soft nontender nondistended normoactive bowel sounds Extrem: Other: No edema bilaterally Objective Data Active Medications Diazepam (Diazepam 10 Mg/2 Ml Cartridge) 5 mg IVPUSH Q4H PRN PRN Reason: anxiety/agitation Morphine Sulfate (Morphine Sulfate/Ns) 100 mg in 100 mls @ 0 mls/hr IVCONT .Q0M [facility]; Protocol Last Admin: 06/06/24 18:02 Dose: 5 mg/hr, 5 mls/hr Documented By: RICARDA Morphine Sulfate (Morphine Sulfate Oral Kassidy 10 Mg/5 Ml Solution) 5 mg PO Q2H PRN PRN Reason: pain, dyspnea Scopolamine (Scopolamine 1.5 Mg Patch.Td.3) 1.5 mg EAR-BEHIND Q72H [facility] Last Admin: 06/06/24 18:09 Dose: 1.5 mg Documented By: RICARDA Labs 06/05/24 09:03 06/05/24 09:03 Assessment and Plan (1) Acute metabolic encephalopathy: Status: Acute Plan 68yo F with ESRD on HD, DM2, 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 Family at bedside Quality Stroke Does the patient have a stroke diagnosis?: No VTE Prior VTE?: No VTE Risk Level:: Medical - moderate - high VTE Device Contraindication: N/A - Device Ordered VTE Drug Contraindication: Treatment Not Indicated
--- NOTE | 2024-06-07 12:26 | MHC.CLN ---
F/U STATUS CHANGED TO COMFORT MEASURES ONLY 06/05. CONTINUES NPO. HD DISCONTINUED. RD AVAILABLE NEEDED.
[2024-06-07] MEDS: Morphine Sulfate/NS 100 MG/100 ML PLAST..BAG IVCONT (13:49)
--- NOTE | 2024-06-07 14:06 | MHC.CM.PN ---
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
[2024-06-07 15:36] VITALS: RESP 14
[2024-06-07 19:22] VITALS: RESP 13
[2024-06-07 20:30] VITALS: RESP 10
--- NOTE | 2024-06-07 22:24 | PM.EVENT ---
Event Note Date of Service: 06/07/24 Event Note: I was called to patient's bedside to pronounce the patient. No spontaneous movements were present. There was no response to verbal or tactile stimulus. Pupils were mid dilated and fixed. No breath sounds were appreciated over either lung field. No carotid pulses were palpable. No heart sounds were auscultated over entire precordium. Patient was on comfort measures only. Patient pronounced on 06/07/2024 at 22:20. Condolences offered to daughter at bedside. certificate completed. Time Spent With Patient Time: Total time managing care of this patient today ____ minutes.
--- NOTE | 2024-06-07 22:50 | PC.NURSE ---
Addendum entered by Eliza Mcguire RN 06/07/24 23:12: Additional family arrived, as well as Fashion Model Silvio with the staff voice intercept technician for prayer. Original Note: Fulfillment Representative assumed care of this patient at 19:00. Patient was comfort measures with continuous basal morphine CIRCUS LABORER infusing (please see Nursing CIRCUS LABORER Flow Sheet in patient's chart for full infusion details). 20:00 hour rounding: patient was cool to touch, BLE mottled, Bacilio-Tello respirations noted with RR 10 breaths/min. Family present at bedside, discussed plan of care and process, questions answered and needs met with packing checker used. Call flannery within reach of family and educated on use. 22:00 hour: Fulfillment Representative rounded to bedside to assess this patient and CIRCUS LABORER. No respirations or chest rise noted. No spontaneous movements. No pain response. Cardiac sounds absent on auscultation and no radial or carotid pulses were palpable. Pupils assessed were fixed and dilated, non-reactive. Covering Dr. Ireland was notified and to bedside; this patient was pronounced by MD at 22:20 with this loan underwriter and the Vietnamese staff nurse icu resource team Javi present. Patient's daughter Manuel present at bedside was offered our condolences as well as a visit from spiritual services; she expressed thanks and accepted the offer for spiritual services for prayer. On-call Fashion Model Silvio was notified and is on his way to the hospital at this time of writing. The nursing supervisor park workers was made aware. NEDS referral was made at 22:40 though declined by Shari with reference #[id number]. The CIRCUS LABORER was discontinued and the medicated wasted appropriately with the charge manager Compa as witness. Please see MAR and flow sheets for full details.
--- NOTE | 2024-06-12 15:02 | P.CDIM_ITS ---
PROVIDER RESPONSE TEXT: To clarify, the appropriate diagnosis supported by the clinical indicators: Excisional debridement: skin and subcutaneous tissue QUERY TEXT: PHYSICIAN'S DOCUMENTATION REQUEST Date of Query: 06/12/2024 08:35 AM EDT Patient Name: Lori Land Admit Date: 06/02/2024 Dear Jeffry Vines MD, RETROSPECTIVE QUERY A review of the medical record indicates additional documentation may be needed. Please review below and update the documentation accordingly. Clinical Indicators: Surgical procedure note dated 06/05/24 - (1) Pressure ulcer right hip She has this open wound with thick eschar the right hip. I sharply debrided this at bedside using fine scissors. I applied we-to-dry dressings thereafter. Could you provide, in the Progress Notes, further clarification regarding specifics to the depth of t he debridement? Excisional debridement Please address the Depth of debridement, skin, subcutaneous, muscle, bone etc. Other specifics to the debridement Other (explain) Clinically unable to determine (explain) Thank you, Benita Wilkins, CCS, CDIS Use of terms such as suspected, likely, concern for, or probable (associated with a specific diagnosi s that is being evaluated, monitored, or treated as if it exists) are acceptable and can be coded in the inpatient se tting, when documented at the time of discharge. Please use your independent medical judgment in providing your response. THIS QUERY IS PART OF THE PERMANENT MEDICAL RECORD
--- NOTE | 2024-06-21 08:21 | PM.DDS ---
Discharge Sum: Prov Provider Primary care physician: Lucrecia Teixeira MD Consults: 06/02/24 21:22 Consult to Nephrology Routine Consulting Provider: [facility] Reason for consultation: ESRD on HD MWF Has provider been notified: No 06/02/24 21:24 Consult to Wound Care Routine Reason for consultation: pressure injury, pt recently here 06/02/24 21:41 Consult to Infectious Diseases Routine Consulting Provider[place] [facility] Reason for consultation: VRE /proteus oestomyelitis Has provider been notified: No 06/03/24 12:19 Consult to General Surgery Routine Consulting Provider: [facility] Reason for consultation: pt known to Dr Vines; worsening calciphylaxis wounds Discharge Sum: Diag Contributing Factors (1) Acute metabolic encephalopathy: Discharge Sum: Summary Date and Time Date of admission: 06/02/24 19:35 Date of : 06/07/24 Time of : 22:20 Summary Details: 68yo F with ESRD on HD, DM2, 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 Patient had significant wounds on lower extremities secondary to calciphylaxis. Pain control extremely difficult. No surgical intervention indicated. 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 Patient peacefully with family at bedside Additional Data Attending physician: Quinn Hanna DO
== END 2024-06-08 00:40 | disposition expired | DRG 853 ==
LOC: HO.ED 19:13 → HO.EDOVER 19:43 → HO.S3 19:58
PROVIDERS: Family Medicine; Internal Medicine Nephrology; Physician Assistant; Student in an Organized Health Care Education/Training Program; Admitting Provider Student in an Organized Health Care Education/Training Program; Emergency Provider Emergency Medicine; PCP General Practice; Visit Provider Hospitalist
DX: A41.9 Sepsis, unspecified organism (principal); G93.41 Metabolic encephalopathy; N18.6 End stage renal disease; I13.2 Hypertensive heart and chronic kidney disease with heart failure and with stage 5 chronic kidney disease, or end stage renal disease; I50.32 Chronic diastolic (congestive) heart failure; M86.272 Subacute osteomyelitis, left ankle and foot; D63.1 Anemia in chronic kidney disease; G40.909 Epilepsy, unspecified, not intractable, without status epilepticus; E11.22 Type 2 diabetes mellitus with diabetic chronic kidney disease; Z66 Do not resuscitate; E66.9 Obesity, unspecified; Z68.37 Body mass index [BMI] 37.0-37.9, adult; E78.5 Hyperlipidemia, unspecified; Z74.01 Bed confinement status; Z51.5 Encounter for palliative care; L94.2 Calcinosis cutis; E11.40 Type 2 diabetes mellitus with diabetic neuropathy, unspecified; E11.69 Type 2 diabetes mellitus with other specified complication; Z20.822 Contact with and (suspected) exposure to COVID-19; Z99.2 Dependence on renal dialysis; Z79.4 Long term (current) use of insulin; Z79.899 Other long term (current) drug therapy
CPT/HCPCS: 0241U; 36415; 70450; 71045; 74176; 80048; 80053; 80202; 82310; 82947; 83605; 83735; 83880; 83970; 84100; 84484; 85025; 86850; 86900; 86901; 86923; 87040; 87493; 87507; 90999; 92610; 93005; 99285; J0131; J0692; J1165; J1171; J1920; J2020; J2185; J2270; J7120; P9016; Q5106

== ENCOUNTER → 2024-06-02 16:08 | Outpatient (BNV) | payer MEDICARE, MEDICAID, SELFPAY | PROVIDERS: Emergency Provider Emergency Medicine; PCP General Practice; Visit Provider Specialist | DX: K43.9 Ventral hernia without obstruction or gangrene (principal); R50.9 Fever, unspecified | CPT/HCPCS: 71045; 74176 ==

== ENCOUNTER → 2024-06-02 16:08 | Outpatient (BNV) | payer MEDICARE, MEDICAID, SELFPAY | PROVIDERS: Admitting Provider Student in an Organized Health Care Education/Training Program; Emergency Provider Emergency Medicine; PCP General Practice; Visit Provider Internal Medicine | DX: R00.0 Tachycardia, unspecified (principal) | CPT/HCPCS: 93010 ==

== ENCOUNTER 2024-06-02 19:35 | Outpatient (BNV) | payer MEDICARE, MEDICAID, SELFPAY | END 2024-06-04 10:38 | PROVIDERS: Admitting Provider Student in an Organized Health Care Education/Training Program; Emergency Provider Emergency Medicine; PCP General Practice; Visit Provider Radiology Diagnostic Radiology | DX: I67.89 Other cerebrovascular disease (principal); G93.89 Other specified disorders of brain | CPT/HCPCS: 70450 ==

== ENCOUNTER → 2024-06-02 19:35 | Outpatient (BNV) | payer MEDICARE, MEDICAID, SELFPAY | PROVIDERS: Admitting Provider Student in an Organized Health Care Education/Training Program; Emergency Provider Emergency Medicine; PCP General Practice; Visit Provider Physician Assistant | DX: M86.172 Other acute osteomyelitis, left ankle and foot (principal); E83.59 Other disorders of calcium metabolism | CPT/HCPCS: 99223; 99232; 99233; 99499 ==

== ENCOUNTER → 2024-06-02 19:35 | Outpatient (BNV) | payer MEDICARE, MEDICAID, SELFPAY | PROVIDERS: Admitting Provider Student in an Organized Health Care Education/Training Program; Emergency Provider Emergency Medicine; PCP General Practice; Visit Provider Surgery | DX: L89.219 Pressure ulcer of right hip, unspecified stage (principal); R23.4 Changes in skin texture | CPT/HCPCS: 97597; 99222 ==